=== PATIENT | male | born 1975 | race Caucasian/White ===

== ENCOUNTER 2017-07-10 04:45 | Emergency (ER) | payer MEDICAID, SELFPAY ==
[2017-07-10 04:46] VITALS: BP 147/85; PULSE 101; RESP 19; TEMP 36.8; O2SAT 95; BMI 67.8
[2017-07-10] MEDS: 0.9% Normal Saline 1,000 ML 125 ML IV (05:03)
[2017-07-10 05:06] LABS: Bedside Glucose 253 mg/dL (70-110)
[2017-07-10] MEDS: Morphine 4 MG/ML Syringe IV (05:06)
[2017-07-10 05:09] LABS: Absolute Lymphocyte Count 0.65 X10^3/ul (0.83-4.51); Absolute Neutrophil Count 4.4 X10^3/uL (2.0-7.7); Eosinophil# 0.11 X10^3/uL; Hematocrit 38.1 % (40-54); Hemoglobin 13.8 g/dl (13.0-16.5); Lymphocyte # 0.65 X10^3/ul (4.0); Lymphocyte % 12.1 % (19-41); Mean Corp Hgb Conc 36.2 g/gl (32-36); Mean Corpuscular Hgb 33.3 pg (27.0-32.0); Mean Platelet Vol. 9.1 fl (6.2-12.0); Monocyte# 0.26 X10^3/uL; Monocyte% 4.8 % (0-10); Neutrophil # 4.36 X10^3/uL (2.7-7.7); Neutrophil % 80.9 % (47-70); Platelet Count 104 K/mm3 (150-450); RBC Distribution Width CV 15.9 % (11.6-14.6); RBC Distribution Width SD 53.1 fl (35.1-43.9); Red Blood Count 4.14 M/mm3 (4.6-6.2); White Blood Count 5.4 K/mm3 (4.4-11.0)
[2017-07-10 05:12] LABS: International Normalized Ratio 1.1; Prothrombin Time (Protime)PT. 13.8 SECONDS (11.7-14.9)
[2017-07-10 05:14] LABS: POSITIVE COUNT NO; POSITIVE DIFFERENTIAL NO; POSITIVE MORPHOLOGY NO
[2017-07-10 05:31] LABS: AST(SGOT) 189 U/L (15-37); Alanine Aminotransfer ALT/SGPT 202 U/L (16-61); Albumin, Serum 3.5 g/dL (3.2-5.0); Alkaline Phosphatase 313 U/L (45-117); Anion Gap 11 (5-15); BUN 19 mg/dL (7-18); BUN/Creat Ratio 13.9 RATIO (10-20); Chloride 96 mmol/L (98-107); Creatinine, Serum 1.37 mg/dL (0.70-1.30); EST Glomerular Filtration Rate 60 mL/min (>60); Est Glom Filt Rate - Afr Amer 73 mL/min (>60); Estimated Creatinine Clearance 71.79 ml/min; Globulin 4.6 g/dL (2.2-4.2); Glucose 226 mg/dL (74-106); Lipase 5488 U/L (73-393); Potassium 3.9 mmol/L (3.5-5.1); Protein, Total 8.1 g/dL (6.4-8.2); Sodium Level 128 mmol/L (136-145)
--- NOTE | 2017-07-10 05:59 | ED.VISSUMM ---
- ER Visit Summary Date of Service: 07/10/17 Chief Complaint: Abdominal pain and jaundice History of Present Illness: The patient is a 42 M who goes to the [facility]. He reports that he has upper abdominal pain that began 2 days ago. He states it is that a dull constant pain that is sharp with any movement. Is 10 out of 10 at worst and 6 out of 10 currently. Is worsened by movement, food, or breathing. She relieved by remaining still. Reports she has been nauseated and had the dry heaves. His last bowel movement was yesterday. It was maria t/yellow colored. He reports he has had dark urine. No dysuria or frequency. Patient has a known history of gallstones and biliary sludge. Physical Examination: Vitals: Stable. Afebrile. General: Well-nourished and well-developed. Head: Normocephalic atraumatic. Neck: Supple, no lymphadenopathy. No JVD. Nontender. Cardiovascular: Regular rate and rhythm. No murmurs. Respiratory: No respiratory distress. Clear to auscultation bilaterally. Abdominal: Soft, moderate epigastric and right upper quadrant tenderness to palpation, nondistended, normal bowel sounds. No guarding, rebound, or peritoneal signs. Back: Nontender. Extremities: Nontender, no edema. Skin: Jaundice and scleral icterus. Neurologic: Alert and oriented ?3. Cranial nerves II through XII are intact. Normal strength and sensation. Psych: Normal affect. Test Results: CBC is remarkable platelets of 104. Chem-7 is marked for sodium 128, chloride of 96, glucose of 226, BUN of 19, and creatinine 1.37. LFTs marked for total bili of 10.10 and direct bili of 7.4. Alk phos is 313. ALT is 202. AST is 189. Lipase is 5488. INR is 1.1. Emergency Department Course and Treatment: Patient was given morphine IV and is resting comfortably. Treatment Plan: The patient was discussed with Dr. Swartz who asked that he be transferred to a tertiary care center. The patient asked for [facility] and I am waiting a call back from them. Disposition: Transferred in serious condition. Impression: 1. Gallstone pancreatitis. 2. Jaundice. 3. Thrombocytopenia. This note was generated with [employer] software. It may contain incorrect words, spelling, and punctuation that were not noted in review of the chart prior to signing ED Disposition - Plan for ED Patient: Chief Complaint: Abd Pain Referrals: Alberto Riley,Linnette Pierre [Primary Care Provider] -
[2017-07-10 06:51] VITALS: BP 135/78; PULSE 91; RESP 16; TEMP 36.8; O2SAT 95
[2017-07-10 06:52] VITALS: BP 135/78; PULSE 91; RESP 16; O2SAT 95
[2017-07-10 07:12] VITALS: BP 134/81; PULSE 99; RESP 15; O2SAT 95
== END 2017-07-10 07:45 | disposition short-term general hospital (02) ==
LOC: ED 05:14
PROVIDERS: Emergency Provider Emergency Medicine
DX: K85.10 Biliary acute pancreatitis without necrosis or infection (principal); R17 Unspecified jaundice; D69.6 Thrombocytopenia, unspecified; R21 Rash and other nonspecific skin eruption; E11.9 Type 2 diabetes mellitus without complications; E78.00 Pure hypercholesterolemia, unspecified; E03.9 Hypothyroidism, unspecified
CPT/HCPCS: 80048; 80076; 82962; 83690; 85025; 85610; 96361; 96374; 96376; 99284; J7030

== ENCOUNTER → 2017-10-30 20:04 | Outpatient (CLI) | payer MEDICAID, SELFPAY | DX: G47.10 Hypersomnia, unspecified (principal); Z72.821 Inadequate sleep hygiene | CPT/HCPCS: 95810 ==

== ENCOUNTER → 2017-11-24 08:35 | Outpatient (CLI) | payer MEDICAID, SELFPAY ==
--- NOTE | 2017-11-24 08:40 | US_ITS ---
STUDY: THYROID ULTRASOUND REASON FOR EXAM: Male, 42 years old. Echo thyroid is a TECHNIQUE: Ultrasound evaluation of the thyroid was performed with real-time and static howard-scale imaging. COMPARISON: None. FINDINGS: RIGHT LOBE: The right lobe of the thyroid gland measures 5.4 x 2.6 x 1.6 cm. There is a homogeneous echotexture. There are no demonstrated solid, cystic or complex lesions. LEFT LOBE: The left lobe of the thyroid gland measures 4.9 x 2.1 x 1.9 cm. There is a homogeneous echotexture. There are no demonstrated solid, cystic or complex lesions. ISTHMUS: The isthmus measures 1.0 cm . In the periphery of the left isthmus there is a very vague 5 x 3 mm hypoechoic nodule. The regional lymph nodes are normal. US/Thyroid IMPRESSION: Thyromegaly. Nonspecific well-circumscribed hypoechoic nodule versus artifact measuring 5 x 4 x 3 mm. Recommend follow-up in 6 months and correlation with laboratory values. Electronically Signed: Mariela Montoya MD at 19:35 EDT Tel , Service support ,
== END ==
PROVIDERS: Visit Provider Nurse Practitioner Family
DX: E03.9 Hypothyroidism, unspecified (principal)
CPT/HCPCS: 76536

== ENCOUNTER 2018-01-06 08:44 | Emergency (ER) | payer MEDICAID, SELFPAY ==
[2018-01-06 08:45] VITALS: BP 167/101; PULSE 103; RESP 18; TEMP 36.6; O2SAT 99; BMI 64.0
[2018-01-06] MEDS: 0.9% Normal Saline 1,000 ML 125 ML IV (09:03)
--- NOTE | 2018-01-06 09:03 | ED.DCSUM_ITS ---
- ER Visit Summary Date of Service: 01/06/18 Chief Complaint: Abdominal pain History of Present Illness: The patient is a 42 M who presents with an epigastric left upper quadrant pain. He states that it sometimes will radiate into his back. He states that it began severe last evening around bedtime. He has had some nausea and vomiting. Over the preceding 3 days he has had a progressive worsening of the pain last night is when it became severe. He notes that last week he had maria t colored stools but now his stools have returned to normal. At that time he did not have any abdominal pain. In June 2017 he was diagnosed with gallstone pancreatitis. He states that he was transferred to outside facility. He did not have ERCP or cholecystectomy. From online resources it appears the patient had a MRCP which showed some peripancreatic stranding but patent bile ducts. It was felt he most likely had a passed stone. He states that he was treated conservatively and improved. He has followed up with gastroenterology at [facility]. Since that time he has not had any difficulties with food. He has been eating healthier though. He has lost over 20 pounds since October. He has a history of thrombocytopenia and has been evaluated by hematology. Physical Examination: Afebrile vital signs are stable Gen: Well-nourished well-developed obese Head: Normocephalic atraumatic Eyes: Perrl EOMI no scleral icterus ENT: TMs clear no rhinorrhea moist mucous membranes Neck: Supple no lymphadenopathy no JVD nontender CVS: Regular rate rhythm no murmurs normal S1-S2 Respiratory: No distress clear to auscultation bilaterally chest nontender Abdomen: Soft tender to palpation in the epigastrium nondistended normal bowel sounds no masses Back: Nontender Extremity: Nontender no edema Skin: Normal color no rash no jaundice Neuro: alert orientated ?3 CN II-XII intact normal strength sensation reflexes gait cerebellar Psych: Normal affect normal mood Test Results: White count is 4. Platelets of 114. Creatinine 1.71 glucose 193. Total bilirubin 1.6 direct bilirubin 0.35. Alk phos 151. Lipase 94. CT abdomen pelvis demonstrates cholelithiasis but no biliary duct distention. No evidence of pancreatitis. Emergency Department Course and Treatment: This could be biliary colic versus the passage of a ductal stone. Patient will be discharged home. He states that at the current time the doctors he was seen have no plan for surgical evaluation of his gallbladder. Patient will be referred to on-call surgery. Patient will have Zofran and a few [place] for pain. Return instructions understood. Impression: 1. Acute abdominal pain 2. Cholelithiasis 3. Vomiting 4. Biliary colic 5. Chronic thrombocytopenia This note was generated with [employer] dictation software. It may contain incorrect words, spelling, and punctuation that were not noted in review of the chart prior to signing ED Disposition - Plan for ED Patient: Disposition: Home or Assisted Living Chief Complaint: Abd Pain Instructions: What are Gallstones? Prescriptions: Hydrocodone Bitart/Apap 5-325 [[place] 5MG-325MG] 1 tab PO Q6H PRN PRN 3 Days #10 tab PRN Reason: Pain Ondansetron [Zofran Odt] 4 mg PO Q8H PRN PRN #10 tab PRN Reason: Nausea Referrals: [facility] Osvaldo,Linnette Pierre [Primary Care Provider] - Dennis Molina MD [STAFF PHYSICIAN] - (call on monday for surgical evaluation )
[2018-01-06 09:09] LABS: Absolute Lymphocyte Count 0.95 X10^3/ul (0.83-4.51); Absolute Neutrophil Count 2.4 X10^3/uL (2.0-7.7); Basophil# 0.01 X10^3/uL; Basophil% 0.3 % (0-1); Eosinophil# 0.15 X10^3/uL; Eosinophils% 3.8 % (0-5); Hematocrit 37.6 % (40-54); Hemoglobin 13.4 g/dl (13.0-16.5); Lymphocyte # 0.95 X10^3/ul (4.0); Lymphocyte % 23.8 % (19-41); Mean Corp Hgb Conc 35.6 g/gl (32-36); Mean Corpuscular Hgb 33.4 pg (27.0-32.0); Mean Corpuscular Volume 93.8 fL (80-94); Mean Platelet Vol. 9.2 fl (6.2-12.0); Monocyte# 0.49 X10^3/uL; Monocyte% 12.3 % (0-10); Neutrophil # 2.37 X10^3/uL (2.7-7.7); Neutrophil % 59.3 % (47-70); Platelet Count 114 K/mm3 (150-450); RBC Distribution Width SD 54.6 fl (35.1-43.9); Red Blood Count 4.01 M/mm3 (4.6-6.2)
[2018-01-06 09:12] LABS: POSITIVE COUNT NO; POSITIVE DIFFERENTIAL NO; POSITIVE MORPHOLOGY NO
[2018-01-06 09:22] LABS: AST(SGOT) 57 U/L (15-37); Alanine Aminotransfer ALT/SGPT 43 U/L (16-61); Albumin, Serum 3.8 g/dL (3.2-5.0); Alkaline Phosphatase 151 U/L (45-117); Anion Gap 9 (5-15); BUN 21 mg/dL (7-18); BUN/Creat Ratio 12.3 RATIO (10-20); Bilirubin, Direct 0.35 mg/dL (0.00-0.30); Calcium,Total 10.3 mg/dL (8.5-10.1); Chloride 99 mmol/L (98-107); Creatinine, Serum 1.71 mg/dL (0.70-1.30); EST Glomerular Filtration Rate 47 mL/min (>60); Est Glom Filt Rate - Afr Amer 56 mL/min (>60); Estimated Creatinine Clearance 57.51 ml/min; Globulin 4.7 g/dL (2.2-4.2); Glucose 193 mg/dL (74-106); Lipase 94 U/L (73-393); Protein, Total 8.5 g/dL (6.4-8.2); Sodium Level 133 mmol/L (136-145)
--- NOTE | 2018-01-06 09:38 | CT_ITS ---
STUDY: CT ABDOMEN AND PELVIS WITHOUT CONTRAST REASON FOR EXAM: Male, 42 years old. Abdominal pain. RADIATION DOSAGE (If Supplied By Facility): CTDIvol = ( 34.45 ) mGy, DLP = ( 1979.87 ) mGycm TECHNIQUE: Transaxial images were obtained from the dome of the diaphragm to the symphysis pubis without oral contrast, and without intravenous contrast. Sagittal and coronal images were reconstructed. Individualized dose optimization techniques were used for this CT. COMPARISON: None. FINDINGS: The visualized lung bases are unremarkable. The visualized portions of the heart are within normal limits. There is hepatomegaly with diffuse hepatic enlargement. There are multiple gallstones. There is moderate splenomegaly. Normal pancreas. Normal bilateral adrenal glands. There is 1 right and 4 left renal stones measuring 0.1 to 0.2 cm. There is no hydronephrosis. Normal visualized stomach. Normal small intestine. Normal colon. The appendix is visualized and appears normal. Normal abdominal aorta. Normal inferior vena cava. Normal retroperitoneum. Normal urinary bladder. There is no free fluid in the abdomen or pelvis. Normal abdominal wall. Normal osseous structures. CT/Abdomen/Pelvis without Cont IMPRESSION: Multiple gallstones. No biliary dilatation. Hepatosplenomegaly. Bilateral renal stones. No hydronephrosis. Electronically Signed: Jax Singh MD at 10:41 EDT , Service support ,
[2018-01-06 12:33] VITALS: PULSE 78; RESP 14; O2SAT 98
== END 2018-01-06 12:35 | disposition home or self-care (01) ==
PROVIDERS: Emergency Provider Emergency Medicine
DX: R10.12 Left upper quadrant pain (principal); K80.20 Calculus of gallbladder without cholecystitis without obstruction; R11.2 Nausea with vomiting, unspecified; K80.50 Calculus of bile duct without cholangitis or cholecystitis without obstruction; D69.6 Thrombocytopenia, unspecified; E11.9 Type 2 diabetes mellitus without complications; I10 Essential (primary) hypertension; E78.00 Pure hypercholesterolemia, unspecified
CPT/HCPCS: 74176; 80048; 80076; 83690; 85025; 99283; J7030; A4216

== ENCOUNTER 2018-01-06 22:12 | Inpatient (IN) | payer MEDICAID, SELFPAY ==
[2018-01-06 22:12] VITALS: BP 164/104; PULSE 96; RESP 20; TEMP 36.2; O2SAT 97; BMI 64.0
--- NOTE | 2018-01-06 22:33 | EKG12_ITS ---
Test Reason : ABD PAIN Blood Pressure : / mmHG Vent. Rate : 089 BPM Atrial Rate : 089 BPM P-R Int : 194 ms QRS Dur : 090 ms QT Int : 360 ms P-R-T Axes : 034 -08 000 degrees QTc Int : 438 ms Normal sinus rhythm Moderate voltage criteria for LVH, may be normal variant Borderline ECG Confirmed by MANAN BLANKENSHIP, SUKHDEEP ([id number]), material expeditor SAURABH KHANNA ([id number]) on 01/09/2018 10:10:18 AM Referred By: KELLI Confirmed By:SUKHDEEP HINKLE MD
--- NOTE | 2018-01-06 22:36 | ED.RN ---
NO OLD EKGS IN MUSE.
--- NOTE | 2018-01-06 22:50 | ED.DCSUM_ITS ---
- ER Visit Summary Date of Service: 01/06/18 Chief Complaint: Abdominal pain History of Present Illness: The patient is a 42 M who presents with abdominal pain. He was seen here earlier today and had gallstones on CAT scan. His bilirubin was slightly elevated but his pain is mostly epigastric and left upper quadrant. He was discharged home to follow-up with surgery. He was given [place]. The [place] has not been helping his pain. He denies fevers. No history of abdominal surgeries in the past. He has had nausea without vomiting. No diarrhea or constipation. Physical Examination: Vital signs reviewed. BMI 64. HEENT exam unremarkable. Heart is regular rate and rhythm. Lungs are clear to auscultation bilaterally. His chest is tender in the left lower area. Abdomen is soft with epigastric and left upper quadrant tenderness to palpation. There is no guarding or rebound tenderness. Extremities reveal no edema. Skin exam reveals no rashes. Neurologic exam normal. Test Results: EKG normal sinus rhythm with rate of 89. No ST changes. White blood cell count 5.5, platelet count 140. Sodium 132, creatinine 1.57. Total bilirubin is 2.1, direct bilirubin 0.32. Alkaline phosphatase 144. AST 63. Troponin normal Emergency Department Course and Treatment: Patient was given morphine and Zofran. His intra-abdominal laboratory studies have worsened slightly. His creatinine is slightly improved. I discussed this with Dr. Molina with surgery. He would like the hospitalist to admit for an MRCP tomorrow. I discussed with hospitalist and she will discussed with surgery who will be the primary admitting provider. Treatment Plan: [] Disposition: Admit Impression: Biliary colic, thrombocytopenia, chronic kidney disease This note was generated with [employer] dictation software. It may contain incorrect words, spelling, and punctuation that were not noted in review of the chart prior to signing ED Disposition - Plan for ED Patient: Chief Complaint: Abd Pain Referrals: Alberto Riley,Linnette Pierre [Primary Care Provider] -
[2018-01-06] MEDS: Ondansetron 4 MG/2 ML Vial IV (23:34)
[2018-01-06] MEDS: Morphine 4 MG/ML Syringe IV (23:34)
[2018-01-06 23:45] LABS: Absolute Lymphocyte Count 0.84 X10^3/ul (0.83-4.51); Absolute Neutrophil Count 3.9 X10^3/uL (2.0-7.7); Basophil# 0.02 X10^3/uL; Basophil% 0.4 % (0-1); Eosinophil# 0.16 X10^3/uL; Eosinophils% 2.9 % (0-5); Hematocrit 36.7 % (40-54); Hemoglobin 13.4 g/dl (13.0-16.5); Lymphocyte # 0.84 X10^3/ul (4.0); Lymphocyte % 15.3 % (19-41); Mean Corp Hgb Conc 36.5 g/gl (32-36); Mean Corpuscular Hgb 33.7 pg (27.0-32.0); Mean Corpuscular Volume 92.2 fL (80-94); Mean Platelet Vol. 8.7 fl (6.2-12.0); Monocyte# 0.52 X10^3/uL; Monocyte% 9.5 % (0-10); Neutrophil # 3.94 X10^3/uL (2.7-7.7); Neutrophil % 71.5 % (47-70); Platelet Count 140 K/mm3 (150-450); RBC Distribution Width CV 15.5 % (11.6-14.6); RBC Distribution Width SD 50.3 fl (35.1-43.9); Red Blood Count 3.98 M/mm3 (4.6-6.2); White Blood Count 5.5 K/mm3 (4.4-11.0)
[2018-01-06 23:47] LABS: AST(SGOT) 63 U/L (15-37); Alanine Aminotransfer ALT/SGPT 41 U/L (16-61); Albumin, Serum 3.7 g/dL (3.2-5.0); Alkaline Phosphatase 144 U/L (45-117); Anion Gap 8 (5-15); BUN 19 mg/dL (7-18); BUN/Creat Ratio 12.1 RATIO (10-20); Bilirubin, Direct 0.32 mg/dL (0.00-0.30); Calcium,Total 10.2 mg/dL (8.5-10.1); Chloride 99 mmol/L (98-107); Creatinine, Serum 1.57 mg/dL (0.70-1.30); EST Glomerular Filtration Rate 51 mL/min (>60); Est Glom Filt Rate - Afr Amer 62 mL/min (>60); Estimated Creatinine Clearance 62.64 ml/min; Globulin 4.6 g/dL (2.2-4.2); Glucose 202 mg/dL (74-106); Lipase 94 U/L (73-393); Potassium 4.3 mmol/L (3.5-5.1); Protein, Total 8.3 g/dL (6.4-8.2); Sodium Level 132 mmol/L (136-145)
[2018-01-06 23:48] LABS: POSITIVE COUNT NO; POSITIVE DIFFERENTIAL NO; POSITIVE MORPHOLOGY NO
[2018-01-07] VITALS (9 sets, daily range): BP systolic 105–148; BP diastolic 57–95; PULSE 75–119; RESP 18; TEMP 36.5–37.3; O2SAT 92–97; BMI 63.5; BMI 63.6
--- NOTE | 2018-01-07 01:21 | CON.PCM_ITS ---
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 (6) Morbid obesity Status: Chronic (7) Thrombocytopenia Status: Chronic (8) Leukopenia Status: Chronic Qualifiers: Neutropenia type: due to infection Reason for Consult Date of Consultation: 01/07/18 Reason for Consultation: Medical management History of Present Illness: The patient is a 42 y/o M w/ PMHx: Morbid Obesity, HTN, HLD, SONIA currently being assessed for CPAP settings, Diabetes mellitus type II, Recent leukopenia and thrombocytopenia following viral illness evaluated per Oncology and felt to be improving and likely secondary to suppression secondary to infection, Hypothyroidism who presented to the [facility] ED initially earlier in the day on 01/06/18 with history of upper abdominal pain, ongoing, over the last 1-2 years however worsened over the last 3 days with ongoing epigastric and right upper quadrant discomfort with associated nausea, emesis, poor food tolerance, recently altered bowel movements noted to be maria t colored discharged from the ED following workup with plan follow-up with general surgery for cholelithiasis with biliary colic; however he now represents to the [facility] ED on 01/07/18 for ongoing severe pain, not improving w/ recent discharge oral pain regimen. He had initially upon presentation noted also LUQ pain; however, upon examination and discussion upon current evaluation had RUQ and epigastric pain. He had been evaluated prior at OSH and was treated for gallstone pancreatitis at that time with possible cholecystectomy; however, following an MRCP they decided to defer the surgery for unclear reasons. Work-up in the ED included T 97.2, heart rate 96, BP 164/104, respiratory rate 18, 97% on room air, CBC with W BC 5.5, heme globin 13.4, platelet 140 with mild left shift, CMP with sodium 132, BUN/creatinine 19/1.57, glucose 202, calcium 10.2, total bilirubin 2.1, direct bilirubin 0.32, AST/ALT 63/41, alk phos 144, troponin < 0.015, lipase 94, recent CT abdomen and pelvis with multiple gallstones with no obvious biliary dilatation, hepatosplenomegaly, bilateral renal stones with no hydronephrosis. Past Medical History Past Medical History (Chronic Problems): Chronic Problems (Last Reviewed 11/06/17 @ 09:37 by Ramandeep Rodgers) Essential (primary) hypertension (Chronic) Steatohepatitis (Chronic) Hypothyroidism (Chronic) Type 2 diabetes mellitus without complications (Chronic) Morbid obesity (Chronic) Thrombocytopenia (Chronic) Leukopenia (Chronic) Bilateral lower extremity edema (Chronic) Medical History: Medical History (Last Reviewed 11/06/17 @ 09:37 by Ramandeep Rodgers) Diabetes E11.9 Hyperlipidemia E78.5 Thyroid disease E07.9 Vitamin D deficiency E55.9 Hypertension I10 Allergies wool Adverse Reaction (Severe, Verified 01/06/18 22:13) Hives Home Medications: Ambulatory Orders Medication Instructions Recorded Lisinopril [Zestril] 20 mg PO DAILY 03/30/15 Lovastatin [Mevacor] 20 mg PO DAILY 03/30/15 Aspirin [Aspirin, Baby] 81 mg PO DAILY@0800 08/11/16 Metformin HCl 1,000 mg PO BID 08/11/16 Bennet-3/Dha/Epa/Fish Oil [Fish Oil 1,200 mg PO BID 08/11/16 1,000 mg Softgel] Ergocalciferol [Vitamin D] 50,000 unit PO Q7D 04/05/17 Insulin NPH Human Isophane 35 unit SQ BID 04/05/17 [Novolin N] Levothyroxine [Synthroid] 100 mcg PO DAILY 04/05/17 Metoprolol Tartrate [Lopressor 50 mg PO BID 04/05/17 (Beta Helen)] Hydrocodone Bitart/Apap 5-325 1 tab PO Q6H PRN PRN 3 Days #10 tab 01/06/18 [[place] 5MG-325MG] Magnesium 250 mg PO TID 01/06/18 Ondansetron [Zofran Odt] 4 mg PO Q8H PRN PRN #10 tab 01/06/18 Surgical History: Surgical History (Last Reviewed 11/06/17 @ 09:38 by Ramandeep Rodgers) History of tonsillectomy and adenoidectomy Z98.890 Surgical History: tonsillectomy Psychiatric History: No pertinent psych hx Lives: With Family - Patient lives with his mother. Smoking Status: Never smoker Tobacco Use: Non-smoker Alcohol: None Drugs: None - *Family History Maternal Family History: Family History (Last Reviewed 11/06/17 @ 09:38 by Ramandeep Rodgers) Grandfather Family history of heart disease Family history of hypertension Mother Family history of high cholesterol Grandfather Family history of high cholesterol Aunt Family history of hypertension Other Family history of hypertension in mother History Items: - - Patient notes a maternal family history of hypertension and hyperlipidemia. Paternal Family History: Family History (Last Reviewed 11/06/17 @ 09:38 by Ramandeep Rodgers) Grandfather Family history of heart disease Family history of hypertension Mother Family history of high cholesterol Grandfather Family history of high cholesterol Aunt Family history of hypertension Other Family history of hypertension in mother History Items: - - Patient notes a paternal family history of heart disease, hypertension, hyperlipidemia and diabetes. Review of Systems Constitutional: Reports: Anorexia, Malaise, Weakness, Fatigue. Denies: Chills, Fever, Weight Change HEENT: Denies: Head Aches, Sinus Congestion, Sinus Drainage Cardiovascular: Denies: Chest Pain, Palpitations Respiratory: Denies: Cough, Shortness of breath at rest, Sputum production Gastrointestinal: Reports: Abdominal Pain, Nausea, Vomiting, - - Change in stool color. Genitourinary: Denies: Dysuria Musculoskeletal: Reports: Back Pain. Denies: Joint Pain, Joint Tenderness Skin: Denies: Rash, Wounds Neurological: Denies: Numbness, Tingling, Focal weakness Psychiatric: Denies: Anxiety, Depression, Homicidal Ideations, Suicidal Ideat ions Hematologic/ Lymphatic: Reports: Easy Bruising, Easy Bleeding Patient Problems: Active and Suspected Problems (Last Reviewed 11/06/17 @ 09:37 by Ramandeep Rodgers) Cholelithiasis (Acute) Subjective: Laying in the ED bed, uncomfortable appearing. Objective: Physical Examination: General: awake, alert, oriented x 3 and cooperative, laying in the ED bed, uncomfortable appearing. Skin: normal color, turgor, no icterus, cyanosis. HEENT: AT/NC, EOMI, PERRLA, dry MM, no carotid bruits or JVD noted; however, thickened neck makes examination difficult. Lungs: Diminished BS BL, > bases, distant BS secondary to habitus, moderate effort, no rales, ronchi or wheezing. Heart: Regular rate and rhythm; no gallop, rub audible. Abdomen: soft, morbidly obese, epigastric and RUQ TTP, + rebound RUQ, ND but difficult assessment given habitus, unable to discern HSM secondary to habitus and pain w/ examination. Extremities: no cyanosis, clubbing, or edema. Neurological: patient awake, alert, oriented x 3; cognitive function intact; pupils equally reactive to light and accomodation; cranial nerves II-XII grossly normal, moving all 4 extremities, no focal deficits, strength moderately to severely globally decreased secondary to acute presentation. Psychiatric: affect appears normal, no acute evidence of depressive or anxiety feelings. - Physical Exam Vital Signs Temp Pulse Resp BP Pulse Ox 97.2 F L 96 20 H 164/104 H 97 01/06/18 22:12 01/06/18 22:12 01/06/18 22:12 01/06/18 22:12 01/06/18 22:12 Oxygen Delivery Method Room Air Weight: 446 lb Body Mass Index (BMI) 64.0 Laboratory Tests Past 24 Hrs 01/06/18 01/06/18 01/06/18 23:00 23:00 23:30 WBC Cancelled 5.5 Corrected WBC Cancelled RBC Cancelled 3.98 L Hgb Cancelled 13.4 Hct Cancelled 36.7 L MCV Cancelled 92.2 MCH Cancelled 33.7 H MCHC Cancelled 36.5 H RDW Cancelled 15.5 H RDW Differential Cancelled 50.3 H Plt Count Cancelled 140 L MPV Cancelled 8.7 Immature Gran % (Auto) Cancelled 0.400 Neut % (Auto) Cancelled 71.5 H Lymph % (Auto) Cancelled 15.3 L [place] % (Auto) Cancelled 9.5 Eos % (Auto) Cancelled 2.9 Baso % (Auto) Cancelled 0.4 Absolute Neuts (auto) Cancelled 3.9 Absolute Lymphs (auto) Cancelled 0.84 Total Counted Cancelled Not Reportable Neutrophils % (Manual) Cancelled Band Neutrophils % Cancelled Lymphocytes % (Manual) Cancelled Monocytes % (Manual) Cancelled Eosinophils % (Manual) Cancelled Basophils % (Manual) Cancelled Metamyelocytes % Cancelled Myelocytes % Cancelled Promyelocytes % Cancelled Blast Cells % Cancelled Plasma Cell % (Manual) Cancelled Other Cells % Cancelled Nucleated RBCs/100 WBC Cancelled Differential Comment Cancelled Diff Path Review Cancelled Hypersegmented Neuts Cancelled Atypical Lymphocytes Cancelled Reactive Lymphocytes Cancelled Smudge Cells Cancelled Toxic Granulation Cancelled Dohle Bodies Cancelled Jj Rods Cancelled Platelet Estimate Cancelled Plt Morphology Comment Cancelled RBC Morphology Cancelled Polychromasia Cancelled Hypochromasia Cancelled Poikilocytosis Cancelled Basophilic Stippling Cancelled Anisocytosis Cancelled Microcytosis Cancelled Macrocytosis Cancelled Spherocytes Cancelled Sickle Cells Cancelled Target Cells Cancelled Tear Drop Cells Cancelled Ovalocytes Cancelled Stomatocytes Cancelled Gomez-Coates Bodies Cancelled Loretta Cells Cancelled Bite Cells Cancelled Acanthocytes (Spur) Cancelled Rouleaux Cancelled Schistocytes Cancelled Sodium 132 L Potassium 4.3 Chloride 99 Carbon Dioxide 25.0 Anion Gap 8 BUN 19 H Creatinine 1.57 H Estim Creat Clear Calc 62.64 Est GFR (MDRD) Af Amer 62 Est GFR (MDRD) Non-Af 51 L BUN/Creatinine Ratio 12.1 Glucose 202 H Calcium 10.2 H Total Bilirubin 2.10 H Direct Bilirubin 0.32 H AST 63 H ALT 41 Alkaline Phosphatase 144 H Troponin I < 0.015 Total Protein 8.3 H Albumin 3.7 Globulin 4.6 H Lipase 94 Assessment/Plan All Active Problems (Last Reviewed 11/06/17 @ 09:37 by Ramandeep Rodgers) Cholelithiasis (Acute) Peripheral arterial disease (Acute) The patient is a 42 y/o M w/ PMHx: Morbid Obesity, HTN, HLD, SONIA currently being assessed for CPAP settings, Diabetes mellitus type II, Recent leukopenia and thrombocytopenia following viral illness evaluated per Oncology and felt to be improving and likely secondary to suppression secondary to infection, Hypothyroidism who presented to the [facility] ED initially earlier in the day on 01/06/18 with history of upper abdominal pain, ongoing, over the last 1-2 years however worsened over the last 3 days with ongoing epigastric and right upper quadrant discomfort with associated nausea, emesis, poor food tolerance, recently altered bowel movements noted to be maria t colored discharged. (1) RUQ Abdominal Pain, Rebound w/ Cholelithiasis, N/V concerning for Cholecystitis: CBC with W BC 5.5, heme globin 13.4, platelet 140 with mild left shift, CMP with sodium 132, BUN/creatinine 19/1.57, glucose 202, calcium 10.2, total bilirubin 2.1, direct bilirubin 0.32, AST/ALT 63/41, alk phos 144, troponin < 0.015, lipase 94, recent CT abdomen and pelvis with multiple gallstones with no obvious biliary dilatation, hepatosplenomegaly, bilateral renal stones with no hydronephrosis. Admitted to [facility] per Primary Service Surgery, maintain on IVFs, NPO status, IV PPI, IV/po pain control, lab trending, given RUQ pain, rebound will initiate zosyn therapy but leave this also to surgery discretion to discontinue, planned AM MRCP. (2) Leukopenia, thrombocytopenia: Admission CBC with W BC 5.5, heme globin 13.4, platelet 140 with mild left shift, been improving, following with oncology and felt secondary to bone marrow suppression following viral infection. (3) Diabetes mellitus type II: Hold oral home regimen, continue home insulin regimen, NPO status, accu checks q 6 hours while NPO status w/ ISS, HgbA1c pending. (4) Morbid Obesity: Weight loss and lifestyle changes encouraged, nutrition consulted. (5) Hypertension: Continue home regimen including lisinopril, metoprolol, PRN hydralazine. (6) Hyperlipidemia: Continue home statin regimen. (7) Hypothyroidism: Continue home synthroid regimen. (8) SONIA: CPAP q HS. (9) GERD: PPI. (10) DVT Prophylaxis: SCDs, chemoprophylaxis held for possible OR. Code Visit Office Visits / Consults: [id number] IP Consult L5
[2018-01-07] MEDS: Morphine 4 MG/ML Syringe IV (01:39)
[2018-01-07 01:53] LABS: Magnesium 1.1 mg/dL (1.6-2.6)
[2018-01-07 02:37] LABS: Hemoglobin A1c 6.9 % (4.2-6.3)
[2018-01-07] MEDS: HYDROmorphone 1 MG/ML Syringe IV ×4 (02:40→16:13)
[2018-01-07] MEDS: 0.9% Normal Saline 1,000 ML 125 ML IV ×2 (03:24→16:09)
[2018-01-07] MEDS: Piperacil/Tazobactam 3.375 GM/50 ML ML IV ×3 (04:44→21:32)
[2018-01-07] MEDS: 0.9% NaCl Peripheral Flush Adult/Peds IV ×3 (05:56→16:13)
[2018-01-07] MEDS: Levothyroxine 100 MCG Tablet PO (06:28)
[2018-01-07] MEDS: Insulin Lispro 100 UNIT/ML INSULN.PEN SC ×3 (06:28→16:14)
[2018-01-07 07:41] LABS: Bedside Glucose 232 mg/dL (70-110)
[2018-01-07 08:11] LABS: Absolute Lymphocyte Count 0.55 X10^3/ul (0.83-4.51); Absolute Neutrophil Count 4.4 X10^3/uL (2.0-7.7); Basophil# 0.01 X10^3/uL; Basophil% 0.2 % (0-1); Eosinophil# 0.06 X10^3/uL; Eosinophils% 1.1 % (0-5); Hematocrit 36.5 % (40-54); Hemoglobin 13.3 g/dl (13.0-16.5); Lymphocyte # 0.55 X10^3/ul (4.0); Mean Corp Hgb Conc 36.4 g/gl (32-36); Mean Corpuscular Volume 93.4 fL (80-94); Mean Platelet Vol. 8.8 fl (6.2-12.0); Monocyte# 0.47 X10^3/uL; Monocyte% 8.5 % (0-10); Neutrophil % 79.7 % (47-70); Platelet Count 134 K/mm3 (150-450); RBC Distribution Width CV 15.7 % (11.6-14.6); RBC Distribution Width SD 51.9 fl (35.1-43.9); Red Blood Count 3.91 M/mm3 (4.6-6.2); White Blood Count 5.5 K/mm3 (4.4-11.0)
[2018-01-07 08:12] LABS: Differential Indicated SCAN CRITERIA MET; POSITIVE COUNT NO; POSITIVE DIFFERENTIAL YES; POSITIVE MORPHOLOGY NO
[2018-01-07 08:25] LABS: AST(SGOT) 51 U/L (15-37); Alanine Aminotransfer ALT/SGPT 41 U/L (16-61); Albumin, Serum 3.8 g/dL (3.2-5.0); Alkaline Phosphatase 146 U/L (45-117); Anion Gap 9 (5-15); BUN 17 mg/dL (7-18); BUN/Creat Ratio 10.7 RATIO (10-20); Bilirubin, Direct 0.77 mg/dL (0.00-0.30); Calcium,Total 9.8 mg/dL (8.5-10.1); Chloride 98 mmol/L (98-107); Creatinine, Serum 1.59 mg/dL (0.70-1.30); EST Glomerular Filtration Rate 51 mL/min (>60); Est Glom Filt Rate - Afr Amer 61 mL/min (>60); Estimated Creatinine Clearance 61.85 ml/min; Globulin 4.4 g/dL (2.2-4.2); Glucose 236 mg/dL (74-106); Magnesium 2.2 mg/dL (1.6-2.6); Potassium 4.1 mmol/L (3.5-5.1); Protein, Total 8.2 g/dL (6.4-8.2); Sodium Level 131 mmol/L (136-145)
[2018-01-07 08:45] LABS: Differential Comment SCANNED
--- NOTE | 2018-01-07 08:49 | HP.PCM_ITS ---
Problem List (1) Cholelithiasis Status: Acute Qualifiers: Cholelithiasis location: gallbladder Cholecystitis presence: without cholecystitis Biliary obstruction: with biliary obstruction Qualified Code(s): K80.21 - Calculus of gallbladder without cholecystitis with obstruction History of Present Illness Date of Admission: 01/07/18 Chief Complaint: Abdominal pain The patient is a 42 year old M who began to have sudden onset pain yesterday evening. He describes the pain as midline and both upper abdominal quadrants. He says that he does have pain when he eats fatty meals especially mayonnaise in the for years. He was admitted to [facility] early this summer for the same issue. He was jaundiced and an MRCP was completed. At that time they discharged him home without a surgical consult and he was never told to follow- up with a surgeon. He is not have any fevers or chills and today he reports his pain is improved. Past Medical History Past Medical History (Chronic Problems): Chronic Problems (Last Reviewed 11/06/17 @ 09:37 by Ramandeep Rodgers) Essential (primary) hypertension (Chronic) Steatohepatitis (Chronic) Hypothyroidism (Chronic) Type 2 diabetes mellitus without complications (Chronic) Morbid obesity (Chronic) Thrombocytopenia (Chronic) Leukopenia (Chronic) Bilateral lower extremity edema (Chronic) Medical History: Medical History (Last Reviewed 11/06/17 @ 09:37 by Ramandeep Rodgers) Diabetes E11.9 Hyperlipidemia E78.5 Thyroid disease E07.9 Vitamin D deficiency E55.9 Hypertension I10 Allergies wool Adverse Reaction (Severe, Verified 01/06/18 22:13) Hives Home Medications: Ambulatory Orders Medication Instructions Recorded Lisinopril [Zestril] 20 mg PO DAILY 03/30/15 Lovastatin [Mevacor] 20 mg PO QHS 03/30/15 Aspirin [Aspirin, Baby] 81 mg PO DAILY@0800 08/11/16 Metformin HCl 1,000 mg PO BID 08/11/16 [place]-3/Dha/Epa/Fish Oil [Fish Oil 1,200 mg PO BID 08/11/16 1,000 mg Softgel] Ergocalciferol [Vitamin D] 50,000 unit PO BARROS 04/05/17 Insulin NPH Human Isophane 35 unit SQ BID 04/05/17 [Novolin N] Levothyroxine [Synthroid] 100 mcg PO DAILY 04/05/17 Metoprolol Tartrate [Lopressor 50 mg PO BID 04/05/17 (Beta Helen)] Hydrocodone Bitart/Apap 5-325 1 tab PO Q6H PRN PRN 3 Days #10 tab 01/06/18 [[place] 5MG-325MG] Magnesium 250 mg PO TID 01/06/18 Ondansetron [Zofran Odt] 4 mg PO Q8H PRN PRN #10 tab 01/06/18 Surgical History: Surgical History (Last Reviewed 11/06/17 @ 09:38 by Ramandeep Rodgers) History of tonsillectomy and adenoidectomy Z98.890 Surgical History: tonsillectomy Psychiatric History: No pertinent psych hx Lives: With Family - Patient lives with his mother. Smoking Status: Former smoker Tobacco Use: Cigarettes Alcohol: None Drugs: None - *Family History Maternal Family History: Family History (Last Reviewed 11/06/17 @ 09:38 by Ramandeep Rodgers) Grandfather Family history of heart disease Family history of hypertension Mother Family history of high cholesterol Grandfather Family history of high cholesterol Aunt Family history of hypertension Other Family history of hypertension in mother History Items: - - Patient notes a maternal family history of hypertension and hyperlipidemia. Paternal Family History: Family History (Last Reviewed 11/06/17 @ 09:38 by Ramandeep Rodgers) Grandfather Family history of heart disease Family history of hypertension Mother Family history of high cholesterol Grandfather Family history of high cholesterol Aunt Family history of hypertension Other Family history of hypertension in mother History Items: - - Patient notes a paternal family history of heart disease, hypertension, hyperlipidemia and diabetes. Review of Systems Constitutional: Denies: Anorexia, Chills, Fever HEENT: Denies: Difficulty Swallowing Cardiovascular: Denies: Chest Pain Respiratory: Denies: Shortness of Breath Gastrointestinal: Reports: Abdominal Pain, Nausea. Denies: Diarrhea, Vomiting Genitourinary: Denies: Dysuria Musculoskeletal: Denies: Leg Pain, Muscle pain Skin: Denies: Dryness Neurological: Denies: Balance problems Hematologic/ Lymphatic: Reports: Anemia VTE Information - Inpt Only VTE Present on Admission: No VTE Mechan Device Prophylaxis: SCD's Patient Problems: Active and Suspected Problems (Last Reviewed 11/06/17 @ 09:37 by Ramandeep Rodgers) Cholelithiasis (Acute) - Physical Exam General: Alert, Oriented x3, Cooperative, No apparent distress Oral: Moist Mucosa Neck: No JVD Lungs: Normal air movement Cardiovascular: Regular rate, Regular Rhythm Abdomen: Soft, Non-Distended, Obese, Splenomegaly, Tender - Tender in the upper abdominal area. Midline seems to be the worst. Musculoskeletal: No Muscle Wasting Neurological: Cranial nerves II-XII grossly intact Psych/Mental Status: Normal Affect Vital Signs Temp Pulse Resp BP Pulse Ox 97.8 F 115 H 18 148/87 H 94 01/07/18 08:20 01/07/18 08:20 01/07/18 08:20 01/07/18 08:20 01/07/18 08:20 Oxygen Delivery Method Room Air Weight: 442 lb 14.539 oz Body Mass Index (BMI) 63.5 Intake and Output for Last 24 Hours 01/05/18 01/06/18 01/07/18 23:59 23:59 23:59 Intake Total 0 / 0 Output Total 0 / 0 Balance 0 / 0 Laboratory Tests Past 24 Hrs 01/06/18 01/06/18 01/06/18 23:00 23:00 23:00 WBC Cancelled Corrected WBC Cancelled RBC Cancelled Hgb Cancelled Hct Cancelled MCV Cancelled MCH Cancelled MCHC Cancelled RDW Cancelled RDW Differential Cancelled Plt Count Cancelled MPV Cancelled Immature Gran % (Auto) Cancelled Neut % (Auto) Cancelled Lymph % (Auto) Cancelled [place] % (Auto) Cancelled Eos % (Auto) Cancelled Baso % (Auto) Cancelled Absolute Neuts (auto) Cancelled Absolute Lymphs (auto) Cancelled Total Counted Cancelled Neutrophils % (Manual) Cancelled Band Neutrophils % Cancelled Lymphocytes % (Manual) Cancelled Monocytes % (Manual) Cancelled Eosinophils % (Manual) Cancelled Basophils % (Manual) Cancelled Metamyelocytes % Cancelled Myelocytes % Cancelled Promyelocytes % Cancelled Blast Cells % Cancelled Plasma Cell % (Manual) Cancelled Other Cells % Cancelled Nucleated RBCs/100 WBC Cancelled Differential Comment Cancelled Diff Path Review Cancelled Hypersegmented Neuts Cancelled Atypical Lymphocytes Cancelled Reactive Lymphocytes Cancelled Smudge Cells Cancelled Toxic Granulation Cancelled Dohle Bodies Cancelled Jj Rods Cancelled Platelet Estimate Cancelled Plt Morphology Comment Cancelled RBC Morphology Cancelled Polychromasia Cancelled Hypochromasia Cancelled Poikilocytosis Cancelled Basophilic Stippling Cancelled Anisocytosis Cancelled Microcytosis Cancelled Macrocytosis Cancelled Spherocytes Cancelled Sickle Cells Cancelled Target Cells Cancelled Tear Drop Cells Cancelled Ovalocytes Cancelled Stomatocytes Cancelled [place] Bodies Cancelled [place] Cells Cancelled Bite Cells Cancelled Acanthocytes (Spur) Cancelled Rouleaux Cancelled Schistocytes Cancelled Sodium 132 L Potassium 4.3 Chloride 99 Carbon Dioxide 25.0 Anion Gap 8 BUN 19 H Creatinine 1.57 H Estim Creat Clear Calc 62.64 Est GFR (MDRD) Af Amer 62 Est GFR (MDRD) Non-Af 51 L BUN/Creatinine Ratio 12.1 Glucose 202 H Hemoglobin A1c Calcium 10.2 H Magnesium 1.1 L Total Bilirubin 2.10 H Direct Bilirubin 0.32 H AST 63 H ALT 41 Alkaline Phosphatase 144 H Troponin I < 0.015 Total Protein 8.3 H Albumin 3.7 Globulin 4.6 H Lipase 94 01/06/18 01/06/18 01/07/18 23:30 23:30 07:50 WBC 5.5 5.5 Corrected WBC RBC 3.98 L 3.91 L Hgb 13.4 13.3 Hct 36.7 L 36.5 L MCV 92.2 93.4 MCH 33.7 H 34.0 H MCHC 36.5 H 36.4 H RDW 15.5 H 15.7 H RDW Differential 50.3 H 51.9 H Plt Count 140 L 134 L MPV 8.7 8.8 Immature Gran % (Auto) 0.400 0.500 Neut % (Auto) 71.5 H 79.7 H Lymph % (Auto) 15.3 L 10.0 L [place] % (Auto) 9.5 8.5 Eos % (Auto) 2.9 1.1 Baso % (Auto) 0.4 0.2 Absolute Neuts (auto) 3.9 4.4 Absolute Lymphs (auto) 0.84 0.55 L Total Counted Not Reportable Pending Neutrophils % (Manual) Band Neutrophils % Lymphocytes % (Manual) Monocytes % (Manual) Eosinophils % (Manual) Basophils % (Manual) Metamyelocytes % Myelocytes % Promyelocytes % Blast Cells % Plasma Cell % (Manual) Other Cells % Nucleated RBCs/100 WBC Differential Comment Diff Path Review Hypersegmented Neuts Atypical Lymphocytes Reactive Lymphocytes Smudge Cells Toxic Granulation Dohle Bodies Jj Rods Platelet Estimate Plt Morphology Comment RBC Morphology Polychromasia Hypochromasia Poikilocytosis Basophilic Stippling Anisocytosis Microcytosis Macrocytosis Spherocytes Sickle Cells Target Cells Tear Drop Cells Ovalocytes Stomatocytes [place] Bodies [place] Cells Bite Cells Acanthocytes (Spur) Rouleaux Schistocytes Sodium Potassium Chloride Carbon Dioxide Anion Gap BUN Creatinine Estim Creat Clear Calc Est GFR (MDRD) Af Amer Est GFR (MDRD) Non-Af BUN/Creatinine Ratio Glucose Hemoglobin A1c 6.9 H Calcium Magnesium Total Bilirubin Direct Bilirubin AST ALT Alkaline Phosphatase Troponin I Total Protein Albumin Globulin Lipase 01/07/18 07:50 WBC Corrected WBC RBC Hgb Hct MCV MCH MCHC RDW RDW Differential Plt Count MPV Immature Gran % (Auto) Neut % (Auto) Lymph % (Auto) [place] % (Auto) Eos % (Auto) Baso % (Auto) Absolute Neuts (auto) Absolute Lymphs (auto) Total Counted Neutrophils % (Manual) Band Neutrophils % Lymphocytes % (Manual) Monocytes % (Manual) Eosinophils % (Manual) Basophils % (Manual) Metamyelocytes % Myelocytes % Promyelocytes % Blast Cells % Plasma Cell % (Manual) Other Cells % Nucleated RBCs/100 WBC Differential Comment Diff Path Review Hypersegmented Neuts Atypical Lymphocytes Reactive Lymphocytes Smudge Cells Toxic Granulation Dohle Bodies Jj Rods Platelet Estimate Plt Morphology Comment RBC Morphology Polychromasia Hypochromasia Poikilocytosis Basophilic Stippling Anisocytosis Microcytosis Macrocytosis Spherocytes Sickle Cells Target Cells Tear Drop Cells Ovalocytes Stomatocytes [place] Bodies [place] Cells Bite Cells Acanthocytes (Spur) Rouleaux Schistocytes Sodium 131 L Potassium 4.1 Chloride 98 Carbon Dioxide 24.0 Anion Gap 9 BUN 17 Creatinine 1.59 H Estim Creat Clear Calc 61.85 Est GFR (MDRD) Af Amer 61 Est GFR (MDRD) Non-Af 51 L BUN/Creatinine Ratio 10.7 Glucose 236 H Hemoglobin A1c Calcium 9.8 Magnesium 2.2 Total Bilirubin 2.60 H Direct Bilirubin 0.77 H AST 51 H ALT 41 Alkaline Phosphatase 146 H Troponin I Total Protein 8.2 Albumin 3.8 Globulin 4.4 H Lipase POC Glucose 01/07/18 06:25 POC Glucose 232 H Assessment/Plan All Active Problems (Last Reviewed 11/06/17 @ 09:37 by Ramandeep Rodgers) Cholelithiasis (Acute) Peripheral arterial disease (Acute) 42-year-old male with elevated liver enzymes and cholelithiasis 1. Patient had a CT scan yesterday which showed hepatosplenomegaly as well as large gallstones. During the scan the biliary tree did not appear dilated. Lipase was negative yesterday. Patient has what appears to be biliary colic. I am unsure as to why he is having elevated bilirubin. 2. Today his bilirubin has slightly increased but his AST and ALT remain normal. His alk phos remains slightly elevated. There are other issues with his health need to be considered. The patient was recently seen by heme/onc due to hepatosplenomegaly and thrombocytopenia. That was deemed to be likely due to a viral illness. The question is also if he is having increased bilirubin due to hepatomegaly. 3. I believe the patient needs a cholecystectomy due to his very large stones and biliary colic. I would recommend getting an MRCP first to see if there is choledocholithiasis. If there is no obvious choledocholithiasis I will taken for laparoscopic cholecystectomy with cholangiogram to determine if there is any stones in his duct. There also could be extrinsic compression due to the stones on the common duct causing a pseudoobstruction. MRCP should elucidate this. 4. Currently the patient says his pain is mildly improved and his white count is normal. I will continue antibiotics for prophylaxis against cholangitis due to the possible obstruction. I will keep the patient n.p.o. today and on IV fluids until his MRCP is completed. I explained that if there is a stone in the duct we would proceed with ERCP if there is no stone I would proceed with lap caleb with cholangiogram. The patient seems to understand and all questions were answered. 5. The patient has baseline elevated creatinine. He is on IV fluids and he says his creatinine was elevated lab exams at his clinic. Dennis Molina MD Pager: [facility] [address] [place] [address], [address] [place] [address] Office:
[2018-01-07] MEDS: Aspirin 81 MG TAB.CHEW PO (10:20)
[2018-01-07] MEDS: Insulin NPH Human 100 UNITS/ML PEN 35 UNITS SC ×2 (10:21→22:51)
[2018-01-07] MEDS: Lisinopril 20 MG Tablet PO (10:22)
[2018-01-07] MEDS: Metoprolol Tartrate 50 MG Tablet PO ×2 (10:22→22:50)
[2018-01-07 10:25] LABS: Bedside Glucose 249 mg/dL (70-110)
--- NOTE | 2018-01-07 10:36 | PN_ITS ---
Patient Problems: Active and Suspected Problems (Last Reviewed 11/06/17 @ 09:37 by Ramandeep Rodgers) Cholelithiasis (Acute) Subjective: Patient was seen and examined. His pain is 2/10, recently given pain meds. Denies any fever or chills or nausea or vomiting Vitals reviewed show fluctuating blood pressure with a high as being 164/104 likely related to pain. Heart rate has been fluctuating with intermittent tachycardia Vitals/I&O's: Vital Signs Temp Pulse Resp BP Pulse Ox 97.8 F 115 H 18 148/87 H 94 01/07/18 08:20 01/07/18 10:22 01/07/18 08:20 01/07/18 10:22 01/07/18 08:20 Oxygen Delivery Method Room Air Weight: 200.9 kg Body Mass Index (BMI) 63.5 Intake and Output for Last 24 Hours 01/05/18 01/06/18 01/07/18 23:59 23:59 23:59 Intake Total 0 / 0 Output Total 0 / 0 Balance 0 / 0 General: Alert, Oriented x3, Cooperative, No apparent distress, - - Morbidly obese HEENT: Atraumatic, PERRLA, EOMI, Normocephalic Oral: Moist Mucosa Neck: Supple, No JVD, Negative Carotid Bruits Lungs: Clear to auscultation, Normal air movement Cardiovascular: Regular rate, Regular Rhythm, Normal S1, Normal S2, No murmurs Abdomen: Bowel Sounds Present, Soft, Non Tender, Non-Distended, No Hepato- splenomegaly, Obese, Tender - Over the epigastric and right upper quadrant Extremities: No edema Skin: No rashes, No breakdown Musculoskeletal: No Tenderness to Palpation of Joints or Extremities Lymphatic: No Cervical, Supraclavicular, or Inguinal Adenopathy Neurological: Cranial nerves II-XII grossly intact, Neuro grossly intact Psych/Mental Status: Normal Affect, Appropriate Laboratory Results 01/06/18 23:00: WBC Cancelled, Corrected WBC Cancelled, RBC Cancelled, Hgb Cancelled, Hct Cancelled, MCV Cancelled, MCH Cancelled, MCHC Cancelled, RDW Cancelled, RDW Differential Cancelled, Plt Count Cancelled, MPV Cancelled, Immature Gran % (Auto) Cancelled, Neut % (Auto) Cancelled, Lymph % (Auto) Cancelled, [place] % (Auto) Cancelled, Eos % (Auto) Cancelled, Baso % (Auto) Cancelled, Absolute Neuts (auto) Cancelled, Absolute Lymphs (auto) Cancelled, Total Counted Cancelled, Neutrophils % (Manual) Cancelled, Band Neutrophils % Cancelled, Lymphocytes % (Manual) Cancelled, Monocytes % (Manual) Cancelled, Eosinophils % (Manual) Cancelled, Basophils % (Manual) Cancelled, Metamyelocytes % Cancelled, Myelocytes % Cancelled, Promyelocytes % Cancelled, Blast Cells % Cancelled, Plasma Cell % (Manual) Cancelled, Other Cells % Cancelled, Nucleated RBCs/100 WBC Cancelled, Differential Comment Cancelled, Diff Path Review Cancelled, Hypersegmented Neuts Cancelled, Atypical Lymphocytes Cancelled, Reactive Lymphocytes Cancelled, Smudge Cells Cancelled, Toxic Granulation Cancelled, Dohle Bodies Cancelled, Jj Rods Cancelled, Platelet Estimate Ca ncelled, Plt Morphology Comment Cancelled, RBC Morphology Cancelled, Polychromasia Cancelled, Hypochromasia Cancelled, Poikilocytosis Cancelled, Basophilic Stippling Cancelled, Anisocytosis Cancelled, Microcytosis Cancelled, Macrocytosis Cancelled, Spherocytes Cancelled, Sickle Cells Cancelled, Target Cells Cancelled, Tear Drop Cells Cancelled, Ovalocytes Cancelled, Stomatocytes Cancelled, [place] Bodies Cancelled, [place] Cells Cancelled, Bite Cells Cancelled, Acanthocytes (Spur) Cancelled, Rouleaux Cancelled, Schistocytes Cancelled 01/06/18 23:00: Sodium 132 L, Potassium 4.3, Chloride 99, Carbon Dioxide 25.0, Anion Gap 8, BUN 19 H, Creatinine 1.57 H, Estim Creat Clear Calc 62.64, Est GFR (MDRD) Af Amer 62, Est GFR (MDRD) Non-Af 51 L, BUN/Creatinine Ratio 12.1, Glucose 202 H, Calcium 10.2 H, Total Bilirubin 2.10 H, Direct Bilirubin 0.32 H, AST 63 H, ALT 41, Alkaline Phosphatase 144 H, Troponin I < 0.015, Total Protein 8.3 H, Albumin 3.7, Globulin 4.6 H, Lipase 94 01/06/18 23:00: Magnesium 1.1 L 01/06/18 23:30: WBC 5.5, RBC 3.98 L, Hgb 13.4, Hct 36.7 L, MCV 92.2, MCH 33.7 H, MCHC 36.5 H, RDW 15.5 H, RDW Differential 50.3 H, Plt Count 140 L, MPV 8.7, Immature Gran % (Auto) 0.400, Neut % (Auto) 71.5 H, Lymph % (Auto) 15.3 L, [place] % (Auto) 9.5, Eos % (Auto) 2.9, Baso % (Auto) 0.4, Absolute Neuts (auto) 3.9, Absolute Lymphs (auto) 0.84, Total Counted Not Reportable 01/06/18 23:30: Hemoglobin A1c 6.9 H 01/07/18 06:25: POC Glucose 232 H 01/07/18 07:50: WBC 5.5, RBC 3.91 L, Hgb 13.3, Hct 36.5 L, MCV 93.4, MCH 34.0 H, MCHC 36.4 H, RDW 15.7 H, RDW Differential 51.9 H, Plt Count 134 L, MPV 8.8, Immature Gran % (Auto) 0.500, Neut % (Auto) 79.7 H, Lymph % (Auto) 10.0 L, [place] % (Auto) 8.5, Eos % (Auto) 1.1, Baso % (Auto) 0.2, Absolute Neuts (auto) 4.4, Absolute Lymphs (auto) 0.55 L, Total Counted Not Reportable, Differential Comment SCANNED 01/07/18 07:50: Sodium 131 L, Potassium 4.1, Chloride 98, Carbon Dioxide 24.0, Anion Gap 9, BUN 17, Creatinine 1.59 H, Estim Creat Clear Calc 61.85, Est GFR (MDRD) Af Amer 61, Est GFR (MDRD) Non-Af 51 L, BUN/Creatinine Ratio 10.7, Glucose 236 H, Calcium 9.8, Magnesium 2.2, Total Bilirubin 2.60 H, Direct Bilirubin 0.77 H, AST 51 H, ALT 41, Alkaline Phosphatase 146 H, Total Protein 8.2, Albumin 3.8, Globulin 4.4 H 01/07/18 10:14: POC Glucose 249 H Current Medications Acetaminophen (Tylenol) 650 mg PO Q6H PRN PRN PRN Reason: Non-cardiac pain (mod-severe) Aspirin (Aspirin, Baby) 81 mg PO DAILY@0800 [facility] Last Admin: 01/07/18 10:20 Dose: 81 mg Atorvastatin Calcium (Lipitor) 5 mg PO QHS [facility] Hydralazine HCl (Apresoline Iv) 10 mg IV Q4H PRN PRN PRN Reason: SBP > 160 Hydromorphone HCl (Dilaudid Inj) 1 mg IV Q3H PRN PRN PRN Reason: SEVERE PAIN (6-12/20) Last Admin: 01/07/18 10:26 Dose: 1 mg Sodium Chloride () 1,000 mls @ 125 mls/hr IV .Q8H [facility] Last Admin: 01/07/18 03:24 Dose: 125 mls/hr Pantoprazole Sodium 40 mg/ (Sodium Chloride) 110 mls @ 330 mls/hr IV Q12 [facility] Last Admin: 01/07/18 10:26 Dose: 330 mls/hr Piperacillin Sod/Tazobactam Sod (Zosyn) 3.375 gm in 50 mls @ 12.5 mls/hr IV Q8 [facility] Last Admin: 01/07/18 04:44 Dose: 12.5 mls/hr Insulin Human Lispro (Humalog Kwikpen (Bkc)) 0 unit SC ACHS [facility]; Protocol Last Admin: 01/07/18 06:28 Dose: 6 units Insulin Human NPH (Humulin N (Bkc)) 35 units SC BID [facility] Last Admin: 01/07/18 10:21 Dose: 35 units Levothyroxine Sodium (Synthroid) 100 mcg PO DAILY@0600 [facility] Last Admin: 01/07/18 06:28 Dose: 100 mcg Lisinopril (Zestril) 20 mg PO DAILY [facility] Last Admin: 01/07/18 10:22 Dose: 20 mg Magnesium Hydroxide (Milk Of Magnesia) 30 ml PO DAILY PRN PRN PRN Reason: Constipation Metoprolol Tartrate (Lopressor (Beta Helen)) 50 mg PO BID [facility] Last Admin: 01/07/18 10:22 Dose: 50 mg Ondansetron HCl (Zofran) 4 mg IV Q8H PRN PRN PRN Reason: NAUSEA Oxycodone HCl (Oxyir) 5 - 10 mg PO Q4H PRN PRN PRN Reason: SEVERE PAIN (6-12/20) Promethazine HCl (Phenergan) 12.5 mg IV Q6H PRN PRN PRN Reason: NAUSEA/VOMITING Sodium Chloride () 5 - 30 ml IV UD PRN PRN Reason: SALINE FLUSH Last Admin: 01/07/18 10:26 Dose: 10 ml Medical Necessity - Tobacco Use Smoking Status: Former smoker Tobacco Use: Cigarettes Assessment/Plan All Active Problems (Last Reviewed 11/06/17 @ 09:37 by Ramandeep Rodgers) Cholelithiasis (Acute) Peripheral arterial disease (Acute) 42-year-old male, super morbidly obese, type II DM, hypertension, hyperlipidemia, hypothyroidism who comes in with complaints of abdominal pain. He was seen earlier in the emergency department and gallstones were found on CT. He presented again with abdominal pain that comes and goes. 1. Acute upper abdominal/RUQ pain, secondary to biliary colic, less likely secondary to cholangitis, no leukocytosis, no fever General surgery consulted, MRCP planned, will follow up with general surgery re commendations, continue with pain control 2. Elevated LFTs, increasing total bilirubin to 2.6, direct to 0.77, increased ALP likely related to gallstones, patient appears stable, cholangitis is less on the differential, on prophylactic antibiotics pending evaluation of the biliary tree 3. Type II DM, HbA1c 6.9, blood sugars fairly uncontrolled, was on metformin, insulin, metformin held, will continue to monitor for now as patient will be kept n.p.o. for MRCP very soon 4. Hypertension, controlled with previous of elevated blood pressure likely related to pain, continue on lisinopril, metoprolol, pain control, continue to monitor blood pressures 5. Hyperlipidemia, on statin 6. Hypothyroidism, on levothyroxine 7. SONIA on CPAP 8. History of leukopenia, thrombocytopenia, secondary to bone marrow suppression following viral infection, cell lines appear to have improved, following remotely with oncology 9. DVT prophylaxis with SCDs for now, pending surgery Code Visit Inpatient E&M: 77939 Subs Hosp L2
[2018-01-07 12:25] LABS: Bedside Glucose 228 mg/dL (70-110)
[2018-01-07 16:16] LABS: Bedside Glucose 238 mg/dL (70-110)
[2018-01-07] MEDS: Atorvastatin Calcium 10 MG Tablet 5 MG PO (22:49)
[2018-01-07 23:16] LABS: Bedside Glucose 251 mg/dL (70-110)
[2018-01-08] VITALS (10 sets, daily range): BP systolic 110–136; BP diastolic 65–75; PULSE 90–125; RESP 18–24; TEMP 36.9–37.7; O2SAT 92–97
[2018-01-08] MEDS: Insulin Lispro 100 UNIT/ML INSULN.PEN SC ×3 (00:49→18:02)
[2018-01-08] MEDS: 0.9% Normal Saline 1,000 ML 75 ML IV (01:00)
[2018-01-08 01:01] LABS: Bedside Glucose 250 mg/dL (70-110)
[2018-01-08] MEDS: Piperacil/Tazobactam 3.375 GM/50 ML ML IV ×3 (05:58→21:38)
[2018-01-08] MEDS: 0.9% NaCl Peripheral Flush Adult/Peds IV ×2 (06:00→21:37)
[2018-01-08] MEDS: Levothyroxine 100 MCG Tablet PO (06:01)
[2018-01-08 06:15] LABS: Bedside Glucose 238 mg/dL (70-110)
[2018-01-08 06:15] LABS: Absolute Lymphocyte Count 0.73 X10^3/ul (0.83-4.51); Absolute Neutrophil Count 6.8 X10^3/uL (2.0-7.7); Basophil# 0.01 X10^3/uL; Basophil% 0.1 % (0-1); Eosinophil# 0.09 X10^3/uL; Hematocrit 35.2 % (40-54); Hemoglobin 12.7 g/dl (13.0-16.5); Lymphocyte # 0.73 X10^3/ul (4.0); Lymphocyte % 8.5 % (19-41); Mean Corp Hgb Conc 36.1 g/gl (32-36); Mean Corpuscular Hgb 34.2 pg (27.0-32.0); Mean Corpuscular Volume 94.9 fL (80-94); Mean Platelet Vol. 9.3 fl (6.2-12.0); Monocyte# 0.95 X10^3/uL; Neutrophil # 6.81 X10^3/uL (2.7-7.7); Neutrophil % 79.1 % (47-70); Platelet Count 140 K/mm3 (150-450); RBC Distribution Width CV 16.1 % (11.6-14.6); RBC Distribution Width SD 52.8 fl (35.1-43.9); Red Blood Count 3.71 M/mm3 (4.6-6.2); White Blood Count 8.6 K/mm3 (4.4-11.0)
[2018-01-08 06:24] LABS: ALB/GLOB Ratio 0.8 RATIO (0.9-2.4); AST(SGOT) 53 U/L (15-37); Alanine Aminotransfer ALT/SGPT 43 U/L (16-61); Albumin, Serum 3.3 g/dL (3.2-5.0); Alkaline Phosphatase 142 U/L (45-117); Anion Gap 11 (5-15); BUN 20 mg/dL (7-18); BUN/Creat Ratio 11.1 RATIO (10-20); Calcium,Total 9.7 mg/dL (8.5-10.1); Chloride 99 mmol/L (98-107); EST Glomerular Filtration Rate 44 mL/min (>60); Est Glom Filt Rate - Afr Amer 53 mL/min (>60); Estimated Creatinine Clearance 54.64 ml/min; Globulin 4.4 g/dL (2.2-4.2); Glucose 214 mg/dL (74-106); Potassium 3.9 mmol/L (3.5-5.1); Protein, Total 7.7 g/dL (6.4-8.2); Sodium Level 134 mmol/L (136-145)
[2018-01-08 06:39] LABS: POSITIVE COUNT NO; POSITIVE DIFFERENTIAL NO; POSITIVE MORPHOLOGY NO
--- NOTE | 2018-01-08 07:53 | PCM.PN.HOSP ---
Patient Problems: Active and Suspected Problems (Last Reviewed 11/06/17 @ 09:37 by Ramandeep Rodgers) Cholelithiasis (Acute) Subjective: Patient was seen and examined. 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 Discussed with surgeon, patient will be transferred . He has been accepted at [facility]. Denies any new complaints. Pain is controlled. Objective: General: Alert, Oriented x3, Cooperative, No apparent distress, - - Morbidly obese HEENT: Atraumatic, PERRLA, EOMI, Normocephalic Oral: Moist Mucosa Neck: Supple, No JVD, Negative Carotid Bruits Lungs: Clear to auscultation, Normal air movement Cardiovascular: Regular rate, Regular Rhythm, Normal S1, Normal S2, No murmurs Abdomen: Bowel Sounds Present, Soft, Non Tender, Non-Distended, No Hepato-splenomegaly, Obese, Tender - Over the epigastric and right upper quadrant Extremities: No edema Skin: No rashes, No breakdown Musculoskeletal: No Tenderness to Palpation of Joints or Extremities Lymphatic: No Cervical, Supraclavicular, or Inguinal Adenopathy Neurological: Cranial nerves II-XII grossly intact, Neuro grossly intact Psych/Mental Status: Normal Affect, Appropriate Vitals/I&O's: Vital Signs Temp Pulse Resp BP Pulse Ox 99.8 F H 116 H 18 122/66 H 96 01/08/18 04:20 01/08/18 04:20 01/08/18 04:20 01/08/18 04:20 01/08/18 04:20 Oxygen Delivery Method Room Air Weight: 200.9 kg Body Mass Index (BMI) 63.5 Intake and Output for Last 24 Hours 01/06/18 01/07/18 01/08/18 23:59 23:59 23:59 Intake Total 928 / 928 1170 / 1170 Output Total 675 / 675 700 / 700 Balance 253 / 253 470 / 470 Laboratory Results 01/07/18 07:50: WBC 5.5, RBC 3.91 L, Hgb 13.3, Hct 36.5 L, MCV 93.4, MCH 34.0 H, MCHC 36.4 H, RDW 15.7 H, RDW Differential 51.9 H, Plt Count 134 L, MPV 8.8, Immature Gran % (Auto) 0.500, Neut % (Auto) 79.7 H, Lymph % (Auto) 10.0 L, [place] % (Auto) 8.5, Eos % (Auto) 1.1, Baso % (Auto) 0.2, Absolute Neuts (auto) 4.4, Absolute Lymphs (auto) 0.55 L, Total Counted Not Reportable, Differential Comment SCANNED 01/07/18 07:50: Sodium 131 L, Potassium 4.1, Chloride 98, Carbon Dioxide 24.0, Anion Gap 9, BUN 17, Creatinine 1.59 H, Estim Creat Clear Calc 61.85, Est GFR (MDRD) Af Amer 61, Est GFR (MDRD) Non-Af 51 L, BUN/Creatinine Ratio 10.7, Glucose 236 H, Calcium 9.8, Magnesium 2.2, Total Bilirubin 2.60 H, Direct Bilirubin 0.77 H, AST 51 H, ALT 41, Alkaline Phosphatase 146 H, Total Protein 8.2, Albumin 3.8, Globulin 4.4 H 01/07/18 10:14: POC Glucose 249 H 01/07/18 12:14: POC Glucose 228 H 01/07/18 16:05: POC Glucose 238 H 01/07/18 22:48: POC Glucose 251 H 01/08/18 00:47: POC Glucose 250 H 01/08/18 05:05: WBC 8.6, RBC 3.71 L, Hgb 12.7 L, Hct 35.2 L, MCV 94.9 H, MCH 34.2 H, MCHC 36.1 H, RDW 16.1 H, RDW Differential 52.8 H, Plt Count 140 L, MPV 9.3, Immature Gran % (Auto) 0.300, Neut % (Auto) 79.1 H, Lymph % (Auto) 8.5 L, [place] % (Auto) 11.0 H, Eos % (Auto) 1.0, Baso % (Auto) 0.1, Absolute Neuts (auto) 6.8, Absolute Lymphs (auto) 0.73 L, Total Counted Not Reportable 01/08/18 05:05: Sodium 134 L, Potassium 3.9, Chloride 99, Carbon Dioxide 24.0, Anion Gap 11, BUN 20 H, Creatinine 1.80 H, Estim Creat Clear Calc 54.64, Est GFR (MDRD) Af Amer 53 L, Est GFR (MDRD) Non-Af 44 L, BUN/Creatinine Ratio 11.1, Glucose 214 H, Calcium 9.7, Total Bilirubin 3.60 H, AST 53 H, ALT 43, Alkaline Phosphatase 142 H, Total Protein 7.7, Albumin 3.3, Globulin 4.4 H, Albumin/Globulin Ratio 0.8 L 01/08/18 05:05: Vit D 1,25-Dihydroxy Pending 01/08/18 05:56: POC Glucose 238 H Current Medications Acetaminophen (Tylenol) 650 mg PO Q6H PRN PRN PRN Reason: Non-cardiac pain (mod-severe) Aspirin (Aspirin, Baby) 81 mg PO DAILY@0800 [facility] Last Admin: 01/07/18 10:20 Dose: 81 mg Atorvastatin Calcium (Lipitor) 5 mg PO QHS [facility] Last Admin: 01/07/18 22:49 Dose: 5 mg Hydralazine HCl (Apresoline Iv) 10 mg IV Q4H PRN PRN PRN Reason: SBP > 160 Hydromorphone HCl (Dilaudid Inj) 1 mg IV Q3H PRN PRN PRN Reason: SEVERE PAIN (-12/20) Last Admin: 01/07/18 16:13 Dose: 1 mg Pantoprazole Sodium 40 mg/ (Sodium Chloride) 110 mls @ 330 mls/hr IV Q12 [facility] Last Admin: 01/07/18 21:32 Dose: 330 mls/hr Piperacillin Sod/Tazobactam Sod (Zosyn) 3.375 gm in 50 mls @ 12.5 mls/hr IV Q8 [facility] Last Admin: 01/08/18 05:58 Dose: 12.5 mls/hr Insulin Human Lispro (Humalog Kwikpen (Bkc)) 0 unit SC Q6 [facility]; Protocol Last Admin: 01/08/18 06:00 Dose: 6 units Levothyroxine Sodium (Synthroid) 100 mcg PO DAILY@0600 [facility] Last Admin: 01/08/18 06:01 Dose: 100 mcg Lisinopril (Zestril) 20 mg PO DAILY [facility] Last Admin: 01/07/18 10:22 Dose: 20 mg Magnesium Hydroxide (Milk Of Magnesia) 30 ml PO DAILY PRN PRN PRN Reason: Constipation Metoprolol Tartrate (Lopressor (Beta Helen)) 50 mg PO BID [facility] Last Admin: 01/07/18 22:50 Dose: 50 mg Ondansetron HCl (Zofran) 4 mg IV Q8H PRN PRN PRN Reason: NAUSEA Oxycodone HCl (Oxyir) 5 - 10 mg PO Q4H PRN PRN PRN Reason: SEVERE PAIN (6-10/10) Promethazine HCl (Phenergan) 12.5 mg IV Q6H PRN PRN PRN Reason: NAUSEA/VOMITING Sodium Chloride () 5 - 30 ml IV UD PRN PRN Reason: SALINE FLUSH Last Admin: 01/08/18 06:00 Dose: 10 ml Medical Necessity - Tobacco Use Smoking Status: Former smoker Tobacco Use: Cigarettes Assessment/Plan All Active Problems (Last Reviewed 11/06/17 @ 09:37 by Ramandeep Rodgers) Cholelithiasis (Acute) Peripheral arterial disease (Acute) 42-year-old male, super morbidly obese, type II DM, hypertension, hyperlipidemia, hypothyroidism who comes in with complaints of abdominal pain. He was seen earlier in the emergency department and gallstones were found on CT. He presented again with abdominal pain that comes and goes. 1. 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 Elevated LFTs, persistent elevation of cholestatic enzymes, likely related to gallstones, slight elevation in bilirubin and ALP, was on prophylactic antibiotics for possible cholangitis 3. Type II DM, HbA1c 6.9, blood sugars are uncontrolled, was on metformin, NPH insulin, metformin held, NPH increased to 37 units BID, continue with accucheks and ISS. 4. Elevated creatinine secondary to dehydration/being kept n.p.o., would increase IV fluid rate, 5. Hypertension, controlled with previous of elevated blood pressure likely related to pain, continue on lisinopril, metoprolol, pain control, continue to monitor blood pressures 6. Hyperlipidemia, on statin 7. Hypothyroidism, on levothyroxine 8. SONIA on CPAP 9. History of leukopenia, thrombocytopenia, secondary to bone marrow suppression following viral infection, cell lines appear to have improved, following remotely with oncology 10. Super morbid obesity, BMI 63.6, diet exercise is recommended 11. DVT prophylaxis with SCDs for now, pending surgery Code Visit Inpatient E&M: 63842 Subs Hosp L2
--- NOTE | 2018-01-08 08:00 | MRI_ITS ---
STUDY: MR CHOLANGIOPANCREATOGRAPHY (MRCP) REASON FOR EXAM: Male, 42 years old. Pain, gallstones TECHNIQUE: Standard MRCP technique was utilized. COMPARISON: CT abdomen and pelvis dated January 06, 2018 FINDINGS: Gall Bladder: There are filling defects in the lumen of the gallbladder measuring up to 4 cm in size. There is gallbladder wall thickening with minimal fluid around the gallbladder. Cystic duct: Normal with no demonstrated fixed filling defect. Intrahepatic ducts: Normal visualized intrahepatic ducts with no demonstrated fixed filling defect, dilation or stricture. Common hepatic duct: Normal with no demonstrated fixed filling defect, dilation or stricture. Common bile duct: Normal with no demonstrated fixed filling defect, dilation or stricture. Pancreatic duct: Normal with no demonstrated fixed filling defect, dilation or stricture. MRI/MRCP Abdomen without Contrast IMPRESSION: Gallstones are again seen in the lumen of the gallbladder. There is gallbladder wall thickening with pericholecystic fluid consistent with acute cholecystitis. There is no biliary ductal dilatation. No stones are evident within the biliary ducts. Electronically Signed: Roxana Singleton MD at 10:17 EDT Tel Direct: [phone], Service support ,
--- NOTE | 2018-01-08 10:39 | PCM.PN.SRG ---
Patient Problems: Active and Suspected Problems (Last Reviewed 11/06/17 @ 09:37 by Ramandeep Rodgers) Cholelithiasis (Acute) Subjective: Patient reports his pain is better today. He rates it as a 2 or 3. He is not having any nausea or vomiting. No fevers or chills. - Physical Exam General: Alert, Oriented x3, Cooperative, No apparent distress HEENT: Atraumatic Neck: No JVD Lungs: Normal air movement Cardiovascular: Regular rate, Regular Rhythm Abdomen: Soft, Non-Distended, Tender - Mild right upper quadrant tenderness to palpation. No guarding or rebound. Neurological: Cranial nerves II-XII grossly intact Psych/Mental Status: Normal Affect Vital Signs Temp Pulse Resp BP Pulse Ox 99 F 125 H 24 H 116/75 95 01/08/18 10:26 01/08/18 10:26 01/08/18 10:26 01/08/18 10:26 01/08/18 10:26 Oxygen Delivery Method Room Air Weight: 442 lb 14.539 oz Body Mass Index (BMI) 63.5 Intake and Output for Last 24 Hours 01/06/18 01/07/18 01/08/18 23:59 23:59 23:59 Intake Total 928 / 928 1170 / 1170 Output Total 675 / 675 700 / 700 Balance 253 / 253 470 / 470 Laboratory Tests Past 24 Hrs 01/08/18 01/08/18 01/08/18 05:05 05:05 05:05 WBC 8.6 RBC 3.71 L Hgb 12.7 L Hct 35.2 L MCV 94.9 H MCH 34.2 H MCHC 36.1 H RDW 16.1 H RDW Differential 52.8 H Plt Count 140 L MPV 9.3 Immature Gran % (Auto) 0.300 Neut % (Auto) 79.1 H Lymph % (Auto) 8.5 L [place] % (Auto) 11.0 H Eos % (Auto) 1.0 Baso % (Auto) 0.1 Absolute Neuts (auto) 6.8 Absolute Lymphs (auto) 0.73 L Total Counted Not Reportable Sodium 134 L Potassium 3.9 Chloride 99 Carbon Dioxide 24.0 Anion Gap 11 BUN 20 H Creatinine 1.80 H Estim Creat Clear Calc 54.64 Est GFR (MDRD) Af Amer 53 L Est GFR (MDRD) Non-Af 44 L BUN/Creatinine Ratio 11.1 Glucose 214 H Calcium 9.7 Total Bilirubin 3.60 H AST 53 H ALT 43 Alkaline Phosphatase 142 H Total Protein 7.7 Albumin 3.3 Globulin 4.4 H Albumin/Globulin Ratio 0.8 L Vit D 1,25-Dihydroxy Pending POC Glucose 01/08/18 01/08/18 01/07/18 05:56 00:47 22:48 POC Glucose 238 H 250 H 251 H 01/07/18 01/07/18 16:05 12:14 POC Glucose 238 H 228 H Clinical Impression(s) from Imaging Studies MRCP 01/08/18 08:00 IMPRESSION: Gallstones are again seen in the lumen of the gallbladder. There is gallbladder wall thickening with pericholecystic fluid consistent with acute cholecystitis. There is no biliary ductal dilatation. No stones are evident within the biliary ducts. Electronically Signed: Roxana Singleton MD at 10:17 EDT Tel Direct: [phone], Service support , ADDENDUM: 01/08/18 1034 There is focal loss of signal in the proximal to mid common bile duct, with inflammation seen at the level of this signal dropout. Although there is not marked dilatation of the ducts proximal to this section, Mirizzi syndrome cannot be excluded on these images, caused by inflammation involving the proximal to mid common bile duct. Medical Necessity - Tobacco Use Smoking Status: Former smoker Tobacco Use: Cigarettes Assessment/Plan All Active Problems (Last Reviewed 11/06/17 @ 09:37 by Ramandeep Rodgers) Cholelithiasis (Acute) Peripheral arterial disease (Acute) 42-year-old male with cholelithiasis and obstruction 1. The patient's total bilirubin continued to rise today. 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 The MRCP shows tapering of the mid common bile duct adjacent to a large stone with inflammation between the stone and common bile duct. I am concerned that the patient has had this chronic inflammation for a very long time and that there may be erosion into the common bile duct which is causing his elevated bilirubin. I recommend transfer to tertiary care center with a biliary surgeon as this will be a technically very difficult repair if there is any erosion or ulceration of the common bile duct. 2. I will arrange transfer for the patient for definitive surgical care. In the meantime continue n.p.o./IV fluids, IV antibiotics. Dennis Molina MD Pager: [facility] [address] [place] [address], [address] [place] [address] Office:
--- NOTE | 2018-01-08 10:42 | PCM.DC.SUM ---
Discharge Date and Diagnosis - Problem List Patient Problems: Active and Suspected Problems (Last Reviewed 11/06/17 @ 09:37 by Ramandeep Rodgers) Cholelithiasis (Acute) Date of Admission: 01/07/18 Date of Discharge: 01/08/18 - Primary Discharge Diagnosis Active and Suspected Problems (Last Reviewed 11/06/17 @ 09:37 by Ramandeep Rodgers) Cholelithiasis (Acute) - Secondary Discharge Diagnosis Chronic Problems (Last Reviewed 11/06/17 @ 09:37 by Ramandeep Rodgers) Essential (primary) hypertension (Chronic) Steatohepatitis (Chronic) Hypothyroidism (Chronic) Type 2 diabetes mellitus without complications (Chronic) Morbid obesity (Chronic) Thrombocytopenia (Chronic) Leukopenia (Chronic) Bilateral lower extremity edema (Chronic) Hospital Course and Treatment Imaging Results: 01/08/18 08:00 MRCP Abdomen without Contrast [MRI] Stat Clinical Impression(s) from Imaging Studies MRCP 01/08/18 08:00 IMPRESSION: Gallstones are again seen in the lumen of the gallbladder. There is gallbladder wall thickening with pericholecystic fluid consistent with acute cholecystitis. There is no biliary ductal dilatation. No stones are evident within the biliary ducts. Electronically Signed: Roxana Singleton MD at 10:17 EDT Tel Direct: [phone], Service support , ADDENDUM: 01/08/18 1035 There is focal loss of signal in the proximal to mid common bile duct, with inflammation seen at the level of this signal dropout. Although there is not marked dilatation of the ducts proximal to this section, Mirizzi syndrome cannot be excluded on these images, caused by inflammation involving the proximal to mid common bile duct. Hospitalist service Operations: None Procedures: None Summary of Care Provided: The patient is a 42 year old M who presented with right upper quadrant pain. His bilirubin and alkaline phosphatase were elevated. He was admitted to the floor. He was started on prophylactic antibiotics due to his elevated bilirubin. The patient had a history of biliary obstruction in June and was sent to [place] where an MRCP was completed and he was discharged home without surgical intervention. I was unable to get these records in time and an MRCP was completed today. 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 At this time I believe the patient warrants transfer to a tertiary care center with a biliary surgeon. He was accepted for transfer to the [facility] service at in [place]. Patient Problems: Active and Suspected Problems (Last Reviewed 11/06/17 @ 09:37 by Ramandeep Rodgers) Cholelithiasis (Acute) - Physical Exam Vital Signs Temp Pulse Resp BP Pulse Ox 99 F 125 H 24 H 116/75 95 01/08/18 10:26 01/08/18 10:26 01/08/18 10:26 01/08/18 10:26 01/08/18 10:26 Oxygen Delivery Method Room Air Weight: 442 lb 14.539 oz Body Mass Index (BMI) 63.5 Intake and Output for Last 24 Hours 01/06/18 01/07/18 01/08/18 23:59 23:59 23:59 Intake Total 928 / 928 1170 / 1170 Output Total 675 / 675 700 / 700 Balance 253 / 253 470 / 470 Laboratory Tests Past 24 Hrs 01/08/18 01/08/18 01/08/18 05:05 05:05 05:05 WBC 8.6 RBC 3.71 L Hgb 12.7 L Hct 35.2 L MCV 94.9 H MCH 34.2 H MCHC 36.1 H RDW 16.1 H RDW Differential 52.8 H Plt Count 140 L MPV 9.3 Immature Gran % (Auto) 0.300 Neut % (Auto) 79.1 H Lymph % (Auto) 8.5 L [place] % (Auto) 11.0 H Eos % (Auto) 1.0 Baso % (Auto) 0.1 Absolute Neuts (auto) 6.8 Absolute Lymphs (auto) 0.73 L Total Counted Not Reportable Sodium 134 L Potassium 3.9 Chloride 99 Carbon Dioxide 24.0 Anion Gap 11 BUN 20 H Creatinine 1.80 H Estim Creat Clear Calc 54.64 Est GFR (MDRD) Af Amer 53 L Est GFR (MDRD) Non-Af 44 L BUN/Creatinine Ratio 11.1 Glucose 214 H Calcium 9.7 Total Bilirubin 3.60 H AST 53 H ALT 43 Alkaline Phosphatase 142 H Total Protein 7.7 Albumin 3.3 Globulin 4.4 H Albumin/Globulin Ratio 0.8 L Vit D 1,25-Dihydroxy Pending POC Glucose 01/08/18 01/08/18 01/07/18 05:56 00:47 22:48 POC Glucose 238 H 250 H 251 H 01/07/18 01/07/18 16:05 12:14 POC Glucose 238 H 228 H Home Medications: Medications to take at Discharge Lisinopril [Zestril] 20 mg PO DAILY 03/30/15 Lovastatin [Mevacor] 20 mg PO QHS 03/30/15 Aspirin [Aspirin, Baby] 81 mg PO DAILY@0800 08/11/16 Metformin HCl 1,000 mg PO BID 08/11/16 [place]-3/Dha/Epa/Fish Oil [Fish Oil 1,000 mg Softgel] 1,200 mg PO BID 08/11/16 Ergocalciferol [Vitamin D] 50,000 unit PO BARROS 04/05/17 Insulin NPH Human Isophane [Novolin N] 35 unit SQ BID 04/05/17 Levothyroxine [Synthroid] 100 mcg PO DAILY 04/05/17 Metoprolol Tartrate [Lopressor (Beta Helen)] 50 mg PO BID 04/05/17 Hydrocodone Bitart/Apap 5-325 [[place] 5MG-325MG] 1 tab PO Q6H PRN PRN 3 Days #10 tab 01/06/18 Magnesium 250 mg PO TID 01/06/18 Ondansetron [Zofran Odt] 4 mg PO Q8H PRN PRN #10 tab 01/06/18 Primary Care Physician: Linnette Xavier [Primary Care Provider] - Medical Necessity - Tobacco Use Smoking Status: Former smoker Tobacco Use: Cigarettes Meaningful Use Info Meaningful Use Diagnoses (Choose all that apply): None applicable
[2018-01-08] MEDS: 0.9% Normal Saline 1,000 ML 100 ML IV ×2 (10:55→15:22)
[2018-01-08] MEDS: Metoprolol Tartrate 50 MG Tablet PO ×2 (10:56→21:49)
[2018-01-08 11:05] LABS: Bedside Glucose 218 mg/dL (70-110)
--- NOTE | 2018-01-08 16:40 | NURSING ---
still awaiting bed assignment from
--- NOTE | 2018-01-08 17:36 | PCA ---
called [facility] and talked to transfer line. They informed me that they do not have a bed open yet for the patient and dont expect to have one until possibly late tonight. They said they are tight in beds and the floor that he is going to is full.. they said they will call when they have one open, unless the patient condition worsens then it will take a bit.
[2018-01-08 18:51] LABS: Bedside Glucose 194 mg/dL (70-110)
[2018-01-08] MEDS: Atorvastatin Calcium 10 MG Tablet 5 MG PO (21:49)
[2018-01-08] MEDS: Insulin NPH Human 100 UNITS/ML PEN 37 UNITS SC (21:53)
[2018-01-09] VITALS (9 sets, daily range): BP systolic 96–117; BP diastolic 54–70; PULSE 78–96; RESP 16–18; TEMP 36.9–37.3; O2SAT 93–99
[2018-01-09 00:11] LABS: Bedside Glucose 197 mg/dL (70-110)
[2018-01-09] MEDS: Insulin Lispro 100 UNIT/ML INSULN.PEN SC (00:20)
[2018-01-09 00:31] LABS: Bedside Glucose 165 mg/dL (70-110)
--- NOTE | 2018-01-09 00:40 | NURSING ---
Addendum entered by Ruth Pinto 01/09/18 01:31: No bed avaliable at this time. Original Note: transfer center called updated on vitals
[2018-01-09] MEDS: 0.9% Normal Saline 1,000 ML 100 ML IV ×3 (03:33→23:32)
[2018-01-09] MEDS: Levothyroxine 100 MCG Tablet PO (06:13)
[2018-01-09] MEDS: Piperacil/Tazobactam 3.375 GM/50 ML ML IV ×3 (06:18→21:26)
[2018-01-09 06:26] LABS: Bedside Glucose 138 mg/dL (70-110)
[2018-01-09 08:29] LABS: Absolute Lymphocyte Count 0.74 X10^3/ul (0.83-4.51); Absolute Neutrophil Count 3.2 X10^3/uL (2.0-7.7); Basophil# 0.01 X10^3/uL; Basophil% 0.2 % (0-1); Eosinophils% 4.3 % (0-5); Hematocrit 32.6 % (40-54); Hemoglobin 11.4 g/dl (13.0-16.5); Lymphocyte # 0.74 X10^3/ul (4.0); Lymphocyte % 15.9 % (19-41); Mean Corpuscular Hgb 33.4 pg (27.0-32.0); Mean Corpuscular Volume 95.6 fL (80-94); Mean Platelet Vol. 8.6 fl (6.2-12.0); Monocyte# 0.49 X10^3/uL; Monocyte% 10.6 % (0-10); Neutrophil # 3.19 X10^3/uL (2.7-7.7); Neutrophil % 68.8 % (47-70); Platelet Count 136 K/mm3 (150-450); RBC Distribution Width CV 15.8 % (11.6-14.6); Red Blood Count 3.41 M/mm3 (4.6-6.2); White Blood Count 4.6 K/mm3 (4.4-11.0)
[2018-01-09 08:30] LABS: POSITIVE COUNT NO; POSITIVE DIFFERENTIAL NO; POSITIVE MORPHOLOGY NO
--- NOTE | 2018-01-09 08:30 | NURSING ---
Addendum entered by Taylor Welch 01/09/18 08:34: called yesterday 01/08 at 1826 and tarun Hammer RN gave updated vitals- no bed available at that time. Original Note: called at this time- requested recent vitals and to know if there was a change in status. Notified that no bed is available at this time but that they will call again when they have one available.
[2018-01-09 08:45] LABS: BUN 24 mg/dL (7-18); Estimated Creatinine Clearance 57.85 ml/min; Glucose 137 mg/dL (74-106)
[2018-01-09 08:46] LABS: ALB/GLOB Ratio 0.7 RATIO (0.9-2.4); AST(SGOT) 47 U/L (15-37); Alanine Aminotransfer ALT/SGPT 37 U/L (16-61); Alkaline Phosphatase 138 U/L (45-117); Anion Gap 10 (5-15); BUN/Creat Ratio 14.1 RATIO (10-20); Calcium,Total 9.5 mg/dL (8.5-10.1); Chloride 101 mmol/L (98-107); EST Glomerular Filtration Rate 47 mL/min (>60); Est Glom Filt Rate - Afr Amer 57 mL/min (>60); Globulin 4.3 g/dL (2.2-4.2); Potassium 3.9 mmol/L (3.5-5.1); Protein, Total 7.3 g/dL (6.4-8.2); Sodium Level 136 mmol/L (136-145)
--- NOTE | 2018-01-09 09:14 | PCM.PN.SRG ---
Patient Problems: Active and Suspected Problems (Last Reviewed 11/06/17 @ 09:37 by Ramandeep Rodgers) Cholelithiasis (Acute) Subjective: Patient rates his pain a 2 or 3 out of 10 this morning. No nausea or vomiting. - Physical Exam General: Alert, Oriented x3 Lungs: Normal air movement Abdomen: Soft, Non-Distended, Tender - Right upper quadrant tenderness Vital Signs Temp Pulse Resp BP Pulse Ox 98.6 F 94 18 117/70 98 01/09/18 03:32 01/09/18 03:42 01/09/18 03:32 01/09/18 03:32 01/09/18 03:32 Oxygen Delivery Method Room Air Weight: 442 lb 14.539 oz Body Mass Index (BMI) 63.5 Intake and Output for Last 24 Hours 01/07/18 01/08/18 01/09/18 23:59 23:59 23:59 Intake Total 928 / 928 2692 / 2692 1280 / 1280 Output Total 675 / 675 1600 / 1600 450 / 450 Balance 253 / 253 1092 / 1092 830 / 830 Laboratory Tests Past 24 Hrs 01/09/18 01/09/18 08:13 08:13 WBC 4.6 RBC 3.41 L Hgb 11.4 L Hct 32.6 L MCV 95.6 H MCH 33.4 H MCHC 35.0 RDW 15.8 H RDW Differential 52.0 H Plt Count 136 L MPV 8.6 Immature Gran % (Auto) 0.200 Neut % (Auto) 68.8 Lymph % (Auto) 15.9 L [place] % (Auto) 10.6 H Eos % (Auto) 4.3 Baso % (Auto) 0.2 Absolute Neuts (auto) 3.2 Absolute Lymphs (auto) 0.74 L Total Counted Not Reportable Sodium 136 Potassium 3.9 Chloride 101 Carbon Dioxide 25.0 Anion Gap 10 BUN 24 H Creatinine 1.70 H Estim Creat Clear Calc 57.85 Est GFR (MDRD) Af Amer 57 L Est GFR (MDRD) Non-Af 47 L BUN/Creatinine Ratio 14.1 Glucose 137 H Calcium 9.5 Total Bilirubin 2.20 H AST 47 H ALT 37 Alkaline Phosphatase 138 H Total Protein 7.3 Albumin 3.0 L Globulin 4.3 H Albumin/Globulin Ratio 0.7 L POC Glucose 01/09/18 01/09/18 01/08/18 06:16 00:17 21:53 POC Glucose 138 H 165 H 197 H 01/08/18 01/08/18 18:00 10:53 POC Glucose 194 H 218 H Medical Necessity - Tobacco Use Smoking Status: Former smoker Tobacco Use: Cigarettes Assessment/Plan All Active Problems (Last Reviewed 11/06/17 @ 09:37 by Ramandeep Rodgers) Cholelithiasis (Acute) Peripheral arterial disease (Acute) 42-year-old male with cholecystitis and 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 The patient's MRI shows compression of the common bile duct and his LFTs remain elevated. I recommended transfer yesterday to [facility]. Awaiting a bed. Dennis Molina MD Pager: [facility] [address] [place] [address], [address] [place] [address] Office:
[2018-01-09] MEDS: Metoprolol Tartrate 50 MG Tablet PO ×2 (09:41→21:25)
[2018-01-09 12:25] LABS: Bedside Glucose 145 mg/dL (70-110)
--- NOTE | 2018-01-09 12:47 | NURSING ---
called for update on bed status. Transfer line stated that their hospital is very busy and that it could be tomorrow 01/10 until they have a bed available. Dr. Tracy Vazquez RN will update patient.
--- NOTE | 2018-01-09 13:14 | NURSING ---
Tuan from transfer center called at this time requesting updated vitals and states he does not currently have a bed.
--- NOTE | 2018-01-09 13:51 | PCM.PN.HOSP ---
Patient Problems: Active and Suspected Problems (Last Reviewed 11/06/17 @ 09:37 by Ramandeep Rodgers) Cholelithiasis (Acute) Subjective: Waiting on a bed in . No acute events overnight. Pain rates his pain as 2/10. 10 point ROS is essentially negative Objective: General: Alert, Oriented x3, Cooperative, No apparent distress, - - Morbidly obese HEENT: Atraumatic, PERRLA, EOMI, Normocephalic Oral: Moist Mucosa Neck: Supple, No JVD, Negative Carotid Bruits Lungs: Clear to auscultation, Normal air movement Cardiovascular: Regular rate, Regular Rhythm, Normal S1, Normal S2, No murmurs Abdomen: Bowel Sounds Present, Soft, Non Tender, Non-Distended, No Hepato-splenomegaly, Obese, Tender - Over the epigastric and right upper quadrant Extremities: No edema Skin: No rashes, No breakdown Musculoskeletal: No Tenderness to Palpation of Joints or Extremities Lymphatic: No Cervical, Supraclavicular, or Inguinal Adenopathy Neurological: Cranial nerves II-XII grossly intact, Neuro grossly intact Psych/Mental Status: Normal Affect, Appropriate Vitals/I&O's: Vital Signs Temp Pulse Resp BP Pulse Ox 98.5 F 96 16 113/57 L 93 01/09/18 09:30 01/09/18 09:41 01/09/18 09:30 01/09/18 09:30 01/09/18 11:02 Oxygen Delivery Method Room Air Weight: 200.9 kg Body Mass Index (BMI) 63.5 Intake and Output for Last 24 Hours 01/07/18 01/08/18 01/09/18 23:59 23:59 23:59 Intake Total 928 / 928 2692 / 2692 1280 / 1280 Output Total 675 / 675 1600 / 1600 450 / 450 Balance 253 / 253 1092 / 1092 830 / 830 Laboratory Results 01/08/18 18:00: POC Glucose 194 H 01/08/18 21:53: POC Glucose 197 H 01/09/18 00:17: POC Glucose 165 H 01/09/18 06:16: POC Glucose 138 H 01/09/18 08:13: WBC 4.6, RBC 3.41 L, Hgb 11.4 L, Hct 32.6 L, MCV 95.6 H, MCH 33.4 H, MCHC 35.0, RDW 15.8 H, RDW Differential 52.0 H, Plt Count 136 L, MPV 8.6, Immature Gran % (Auto) 0.200, Neut % (Auto) 68.8, Lymph % (Auto) 15.9 L, [place] % (Auto) 10.6 H, Eos % (Auto) 4.3, Baso % (Auto) 0.2, Absolute Neuts (auto) 3.2, Absolute Lymphs (auto) 0.74 L, Total Counted Not Reportable 01/09/18 08:13: Sodium 136, Potassium 3.9, Chloride 101, Carbon Dioxide 25.0, Anion Gap 10, BUN 24 H, Creatinine 1.70 H, Estim Creat Clear Calc 57.85, Est GFR (MDRD) Af Amer 57 L, Est GFR (MDRD) Non-Af 47 L, BUN/Creatinine Ratio 14.1, Glucose 137 H, Calcium 9.5, Total Bilirubin 2.20 H, AST 47 H, ALT 37, Alkaline Phosphatase 138 H, Total Protein 7.3, Albumin 3.0 L, Globulin 4.3 H, Albumin/Globulin Ratio 0.7 L 01/09/18 12:18: POC Glucose 145 H Current Medications Acetaminophen (Tylenol) 650 mg PO Q6H PRN PRN PRN Reason: Non-cardiac pain (mod-severe) Aspirin (Aspirin, Baby) 81 mg PO DAILY@0800 [facility] Last Admin: 01/09/18 09:41 Dose: Not Given Atorvastatin Calcium (Lipitor) 5 mg PO QHS [facility] Last Admin: 01/08/18 21:49 Dose: 5 mg Hydralazine HCl (Apresoline Iv) 10 mg IV Q4H PRN PRN PRN Reason: SBP > 160 Hydromorphone HCl (Dilaudid Inj) 1 mg IV Q3H PRN PRN PRN Reason: SEVERE PAIN (6-12/20) Last Admin: 01/07/18 16:13 Dose: 1 mg Pantoprazole Sodium 40 mg/ (Sodium Chloride) 110 mls @ 330 mls/hr IV Q12 [facility] Last Admin: 01/09/18 10:36 Dose: 330 mls/hr Piperacillin Sod/Tazobactam Sod (Zosyn) 3.375 gm in 50 mls @ 12.5 mls/hr IV Q8 [facility] Last Admin: 01/09/18 06:18 Dose: 12.5 mls/hr Sodium Chloride () 1,000 mls @ 100 mls/hr IV .Q10H [facility] Last Admin: 01/09/18 03:33 Dose: 100 mls/hr Insulin Human Lispro (Humalog Kwikpen (Bkc)) 0 unit SC Q6 [facility]; Protocol Last Admin: 01/09/18 12:37 Dose: Not Given Insulin Human NPH (Humulin N (Bkc)) 37 units SC BID [facility] Last Admin: 01/09/18 09:40 Dose: Not Given Levothyroxine Sodium (Synthroid) 100 mcg PO DAILY@0600 [facility] Last Admin: 01/09/18 06:13 Dose: 100 mcg Lisinopril (Zestril) 20 mg PO DAILY [facility] Last Admin: 01/09/18 09:43 Dose: Not Given Magnesium Hydroxide (Milk Of Magnesia) 30 ml PO DAILY PRN PRN PRN Reason: Constipation Metoprolol Tartrate (Lopressor (Beta Helen)) 50 mg PO BID [facility] Last Admin: 01/09/18 09:41 Dose: 50 mg Ondansetron HCl (Zofran) 4 mg IV Q8H PRN PRN PRN Reason: NAUSEA Oxycodone HCl (Oxyir) 5 - 10 mg PO Q4H PRN PRN PRN Reason: SEVERE PAIN (6-10/10) Promethazine HCl (Phenergan) 12.5 mg IV Q6H PRN PRN PRN Reason: NAUSEA/VOMITING Sodium Chloride () 5 - 30 ml IV UD PRN PRN Reason: SALINE FLUSH Last Admin: 01/08/18 21:37 Dose: 10 ml Medical Necessity - Tobacco Use Smoking Status: Former smoker Tobacco Use: Cigarettes Assessment/Plan All Active Problems (Last Reviewed 11/06/17 @ 09:37 by Ramandeep Rodgers) Cholelithiasis (Acute) Peripheral arterial disease (Acute) 42-year-old male, super morbidly obese, type II DM, hypertension, hyperlipidemia, hypothyroidism who comes in with complaints of abdominal pain. He was seen earlier in the emergency department and gallstones were found on CT. He presented again with abdominal pain that comes and goes. 1. 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 2. Elevated LFTs, persistent elevation of cholestatic enzymes, likely related to gallstones 3. Type II DM, HbA1c 6.9, blood sugars are controlled, off metformin, on NPH insulin, continue with accucheks and ISS pending transfer. 4. Elevated creatinine secondary to dehydration/being kept n.p.o., on IVF, repeat labs are better 5. Hypertension, controlled with previous of elevated blood pressure likely related to pain, continue on lisinopril, metoprolol, pain control, continue to monitor blood pressures 6. Hyperlipidemia, on statin 7. Hypothyroidism, on levothyroxine 8. SONIA on CPAP 9. History of leukopenia, thrombocytopenia, secondary to bone marrow suppression following viral infection, cell lines appear to have improved, following remotely with oncology 10. Super morbid obesity, BMI 63.6, diet exercise is recommended 11. DVT prophylaxis with SCDs for now, pending surgery Code Visit Inpatient E&M: 25383 Subs Hosp L2
--- NOTE | 2018-01-09 14:04 | PN_ITS ---
Patient Problems: Active and Suspected Problems (Last Reviewed 11/06/17 @ 09:37 by Ramandeep Rodgers) Cholelithiasis (Acute) Subjective: Waiting on a bed in . No acute events overnight. Pain rates his pain as 2/10. 10 point ROS is essentially negative Objective: General: Alert, Oriented x3, Cooperative, No apparent distress, - - Morbidly obese HEENT: Atraumatic, PERRLA, EOMI, Normocephalic Oral: Moist Mucosa Neck: Supple, No JVD, Negative Carotid Bruits Lungs: Clear to auscultation, Normal air movement Cardiovascular: Regular rate, Regular Rhythm, Normal S1, Normal S2, No murmurs Abdomen: Bowel Sounds Present, Soft, Non Tender, Non-Distended, No Hepato- splenomegaly, Obese, Tender - Over the epigastric and right upper quadrant Extremities: No edema Skin: No rashes, No breakdown Musculoskeletal: No Tenderness to Palpation of Joints or Extremities Lymphatic: No Cervical, Supraclavicular, or Inguinal Adenopathy Neurological: Cranial nerves II-XII grossly intact, Neuro grossly intact Psych/Mental Status: Normal Affect, Appropriate Vitals/I&O's: Vital Signs Temp Pulse Resp BP Pulse Ox 98.5 F 96 16 113/57 L 93 01/09/18 09:30 01/09/18 09:41 01/09/18 09:30 01/09/18 09:30 01/09/18 11:02 Oxygen Delivery Method Room Air Weight: 200.9 kg Body Mass Index (BMI) 63.5 Intake and Output for Last 24 Hours 01/07/18 01/08/18 01/09/18 23:59 23:59 23:59 Intake Total 928 / 928 2692 / 2692 1280 / 1280 Output Total 675 / 675 1600 / 1600 450 / 450 Balance 253 / 253 1092 / 1092 830 / 830 Laboratory Results 01/08/18 18:00: POC Glucose 194 H 01/08/18 21:53: POC Glucose 197 H 01/09/18 00:17: POC Glucose 165 H 01/09/18 06:16: POC Glucose 138 H 01/09/18 08:13: WBC 4.6, RBC 3.41 L, Hgb 11.4 L, Hct 32.6 L, MCV 95.6 H, MCH 33.4 H, MCHC 35.0, RDW 15.8 H, RDW Differential 52.0 H, Plt Count 136 L, MPV 8.6, Immature Gran % (Auto) 0.200, Neut % (Auto) 68.8, Lymph % (Auto) 15.9 L, [place] % (Auto) 10.6 H, Eos % (Auto) 4.3, Baso % (Auto) 0.2, Absolute Neuts (auto) 3.2, Absolute Lymphs (auto) 0.74 L, Total Counted Not Reportable 01/09/18 08:13: Sodium 136, Potassium 3.9, Chloride 101, Carbon Dioxide 25.0, Anion Gap 10, BUN 24 H, Creatinine 1.70 H, Estim Creat Clear Calc 57.85, Est GFR (MDRD) Af Amer 57 L, Est GFR (MDRD) Non-Af 47 L, BUN/Creatinine Ratio 14.1, Glucose 137 H, Calcium 9.5, Total Bilirubin 2.20 H, AST 47 H, ALT 37, Alkaline Phosphatase 138 H, Total Protein 7.3, Albumin 3.0 L, Globulin 4.3 H, Albumin/Globulin Ratio 0.7 L 01/09/18 12:18: POC Glucose 145 H Current Medications Acetaminophen (Tylenol) 650 mg PO Q6H PRN PRN PRN Reason: Non-cardiac pain (mod-severe) Aspirin (Aspirin, Baby) 81 mg PO DAILY@0800 [facility] Last Admin: 01/09/18 09:41 Dose: Not Given Atorvastatin Calcium (Lipitor) 5 mg PO QHS [facility] Last Admin: 01/08/18 21:49 Dose: 5 mg Hydralazine HCl (Apresoline Iv) 10 mg IV Q4H PRN PRN PRN Reason: SBP > 160 Hydromorphone HCl (Dilaudid Inj) 1 mg IV Q3H PRN PRN PRN Reason: SEVERE PAIN (6-12/20) Last Admin: 01/07/18 16:13 Dose: 1 mg Pantoprazole Sodium 40 mg/ (Sodium Chloride) 110 mls @ 330 mls/hr IV Q12 [facility] Last Admin: 01/09/18 10:36 Dose: 330 mls/hr Piperacillin Sod/Tazobactam Sod (Zosyn) 3.375 gm in 50 mls @ 12.5 mls/hr IV Q8 [facility] Last Admin: 01/09/18 06:18 Dose: 12.5 mls/hr Sodium Chloride () 1,000 mls @ 100 mls/hr IV .Q10H [facility] Last Admin: 01/09/18 03:33 Dose: 100 mls/hr Insulin Human Lispro (Humalog Kwikpen (Bkc)) 0 unit SC Q6 [facility]; Protocol Last Admin: 01/09/18 12:37 Dose: Not Given Insulin Human NPH (Humulin N (Bkc)) 37 units SC BID [facility] Last Admin: 01/09/18 09:40 Dose: Not Given Levothyroxine Sodium (Synthroid) 100 mcg PO DAILY@0600 [facility] Last Admin: 01/09/18 06:13 Dose: 100 mcg Lisinopril (Zestril) 20 mg PO DAILY [facility] Last Admin: 01/09/18 09:43 Dose: Not Given Magnesium Hydroxide (Milk Of Magnesia) 30 ml PO DAILY PRN PRN PRN Reason: Constipation Metoprolol Tartrate (Lopressor (Beta Helen)) 50 mg PO BID [facility] Last Admin: 01/09/18 09:41 Dose: 50 mg Ondansetron HCl (Zofran) 4 mg IV Q8H PRN PRN PRN Reason: NAUSEA Oxycodone HCl (Oxyir) 5 - 10 mg PO Q4H PRN PRN PRN Reason: SEVERE PAIN (6-10/10) Promethazine HCl (Phenergan) 12.5 mg IV Q6H PRN PRN PRN Reason: NAUSEA/VOMITING Sodium Chloride () 5 - 30 ml IV UD PRN PRN Reason: SALINE FLUSH Last Admin: 01/08/18 21:37 Dose: 10 ml Medical Necessity - Tobacco Use Smoking Status: Former smoker Tobacco Use: Cigarettes Assessment/Plan All Active Problems (Last Reviewed 11/06/17 @ 09:37 by Ramandeep Rodgers) Cholelithiasis (Acute) Peripheral arterial disease (Acute) 42-year-old male, super morbidly obese, type II DM, hypertension, hyperlipidemi a, hypothyroidism who comes in with complaints of abdominal pain. He was seen earlier in the emergency department and gallstones were found on CT. He presented again with abdominal pain that comes and goes. 1. 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 2. Elevated LFTs, persistent elevation of cholestatic enzymes, likely related to gallstones 3. Type II DM, HbA1c 6.9, blood sugars are controlled, off metformin, on NPH insulin, continue with accucheks and ISS pending transfer. 4. Elevated creatinine secondary to dehydration/being kept n.p.o., on IVF, repeat labs are better 5. Hypertension, controlled with previous of elevated blood pressure likely related to pain, continue on lisinopril, metoprolol, pain control, continue to monitor blood pressures 6. Hyperlipidemia, on statin 7. Hypothyroidism, on levothyroxine 8. SONIA on CPAP 9. History of leukopenia, thrombocytopenia, secondary to bone marrow suppression following viral infection, cell lines appear to have improved, following remotely with oncology 10. Super morbid obesity, BMI 63.6, diet exercise is recommended 11. DVT prophylaxis with SCDs for now, pending surgery Code Visit Inpatient E&M: 35348 Subs Hosp L2
[2018-01-09] MEDS: 0.9% NaCl Peripheral Flush Adult/Peds IV (14:18)
[2018-01-09 17:51] LABS: Bedside Glucose 128 mg/dL (70-110)
[2018-01-09] MEDS: Atorvastatin Calcium 10 MG Tablet 5 MG PO (21:25)
[2018-01-09 21:31] LABS: Bedside Glucose 135 mg/dL (70-110)
--- NOTE | 2018-01-09 22:46 | NURSING ---
[facility] called to get update on pt/vitals. still no bed at this time.
[2018-01-09 23:36] LABS: Bedside Glucose 120 mg/dL (70-110)
[2018-01-10] MEDS: Levothyroxine 100 MCG Tablet PO (05:30)
[2018-01-10] MEDS: Piperacil/Tazobactam 3.375 GM/50 ML ML IV (05:30)
[2018-01-10 05:31] VITALS: BP 104/65; PULSE 89; RESP 16; TEMP 36.9; O2SAT 95
[2018-01-10 05:36] LABS: Bedside Glucose 134 mg/dL (70-110)
--- NOTE | 2018-01-10 05:36 | NURSING ---
[facility] called to get update on pt/vitals,still waiting for bed.
[2018-01-10 06:52] VITALS: O2SAT 96
[2018-01-10 08:30] VITALS: BP 133/78; PULSE 88; RESP 18; TEMP 36.9; O2SAT 97
[2018-01-10 08:31] VITALS: PULSE 94
[2018-01-10] MEDS: Metoprolol Tartrate 50 MG Tablet PO (08:31)
[2018-01-10] MEDS: Lisinopril 20 MG Tablet PO (08:31)
[2018-01-10 14:43] LABS: Vitamin D 1,25-Dihydroxy 49.4 pg/mL (19.9-79.3)
== END 2018-01-10 09:40 | disposition short-term general hospital (02) ==
LOC: ED 22:49 → MS3 01-07 01:29
PROVIDERS: Family Medicine; Internal Medicine; Admitting Provider Surgery; Emergency Provider Emergency Medicine; Visit Provider Surgery
DX: K80.20 Calculus of gallbladder without cholecystitis without obstruction (principal); I10 Essential (primary) hypertension; D69.6 Thrombocytopenia, unspecified; E66.01 Morbid (severe) obesity due to excess calories; Z68.44 Body mass index [BMI] 60.0-69.9, adult; E03.9 Hypothyroidism, unspecified; R60.0 Localized edema; K75.81 Nonalcoholic steatohepatitis (NASH); Z87.891 Personal history of nicotine dependence; Z79.4 Long term (current) use of insulin; I12.9 Hypertensive chronic kidney disease with stage 1 through stage 4 chronic kidney disease, or unspecified chronic kidney disease; E11.22 Type 2 diabetes mellitus with diabetic chronic kidney disease; N18.3 Chronic kidney disease, stage 3 (moderate); E78.5 Hyperlipidemia, unspecified
CPT/HCPCS: 36415; 74176; 74181; 80048; 80053; 80076; 82652; 82962; 83036; 83690; 83735; 84484; 85025; 93005; 96360; 96361; 99283; 99285; J7030; J7040; A4216; J2405

== ENCOUNTER 2018-04-16 10:05 | Inpatient (IN) | payer MEDICAID, SELFPAY ==
[2018-04-16] VITALS (15 sets, daily range): BP systolic 91–141; BP diastolic 38–80; PULSE 87–141; RESP 17–18; TEMP 36.2–36.9; O2SAT 93–97; BMI 59.2; BMI 59.6; BMI 59.1
--- NOTE | 2018-04-16 10:24 | CT_ITS ---
STUDY: CT PELVIS WITHOUT CONTRAST REASON FOR EXAM: Male, 42 years old. Rectal abscess. RADIATION DOSAGE (If Supplied By Facility): CTDIvol = ( 28.20 ) mGy, DLP = ( 1547.71 ) mGycm TECHNIQUE: Transaxial imaging of the pelvis was performed with oral contrast, and without intravenous administration of contrast material. Individualized dose optimization techniques were used for this CT. COMPARISON: Comparison is made with prior study dated January 06, 2018. FINDINGS: A tiny calcification is seen in the lower pole calyx of the left kidney. Normal urinary bladder. Normal visualized small intestine. There are multiple colonic diverticula of the sigmoid colon consistent with chronic diverticulosis. There is no pelvic fluid. There is no pelvic mass lesion or lymphadenopathy. Normal visualized pelvic arteries. There is evidence of skin thickening as well as increased markings within the subcutaneous fat along the medial aspect of the upper and mid thigh suggestive of cellulitis. A small amount of air collection is seen just caudad to the perineum. CT/Pelvis without IV Contrast IMPRESSION: Findings suggestive saline is along the upper mid medial posterior buttock. A small amount of gas is seen within the midline just catheter to the perineum. No focal abscess is seen. Electronically Signed: Jt Anderson MD at 12:40 EST , Service support ,
--- NOTE | 2018-04-16 10:26 | ED.VISSUMM ---
- ER Visit Summary Date of Service: 04/16/18 Chief Complaint: Rectal pain History of Present Illness: The patient is a 42 M with a rectal abscess that self drained starting about 3 days ago. He still has pain in the region. He has a complicated medical history with recent gallbladder surgery and an open wound, he is morbidly obese with diabetes hypercholesterolemia and hypertension. He denies any fever or chills. He has had some cough recently. This is improving. Physical Examination: Not appear in acute distress. He does not appear toxic. BMI 59 Moist mucous membranes, no obvious facial deformity No C-spine tenderness supple neck. Regular rate and rhythm without any obvious murmurs Clear lungs bilaterally speaking in full sentences without any obvious respiratory distress Abdomen soft with right upper quadrant tenderness and an open wound without any signs of infection Rectal exam shows a 3 cm open wound, no obvious induration or fluctuance seen. Moves all extremities without any difficulty or pain. Skin does not show any obvious rashes or lesions, no trauma. Alert oriented ?3 with no gross focal deficit Emergency Department Course and Treatment: CT does not show an obvious abscess, cellulitis, it does mention some air but this is secondary to tracking. White count is 8.1. He is found to have renal insufficiency with a creatinine 3.19, this is significantly elevated from his prior. Calcium is 13.6. Given his diabetes, morbid obesity and the area involved, I believe the patient is admitted for IV antibiotics and started IV Zosyn. Disposition: Admit in stable condition Impression: Buttock cellulitis Self draining abscess This note was generated with [employer] dictation software. It may contain incorrect words, spelling, and punctuation that were not noted in review of the chart prior to signing ED Disposition - Plan for ED Patient: Referrals: Alberto Riley,Linnette Pierre [Primary Care Provider] -
--- NOTE | 2018-04-16 10:29 | ED.DCSUM_ITS ---
- ER Visit Summary Date of Service: 04/16/18 Chief Complaint: Rectal pain History of Present Illness: The patient is a 42 M with a rectal abscess that self drained starting about 3 days ago. He still has pain in the region. He has a complicated medical history with recent gallbladder surgery and an open w ound, he is morbidly obese with diabetes hypercholesterolemia and hypertension. He denies any fever or chills. He has had some cough recently. This is improving. Physical Examination: Not appear in acute distress. He does not appear toxic. BMI 59 Moist mucous membranes, no obvious facial deformity No C-spine tenderness supple neck. Regular rate and rhythm without any obvious murmurs Clear lungs bilaterally speaking in full sentences without any obvious respiratory distress Abdomen soft with right upper quadrant tenderness and an open wound without any signs of infection Rectal exam shows a 3 cm open wound, no obvious induration or fluctuance seen. Moves all extremities without any difficulty or pain. Skin does not show any obvious rashes or lesions, no trauma. Alert oriented ?3 with no gross focal deficit Emergency Department Course and Treatment: CT does not show an obvious abscess, cellulitis, it does mention some air but this is secondary to tracking. White count is 8.1. He is found to have renal insufficiency with a creatinine 3.19, this is significantly elevated from his prior. Calcium is 13.6. Given his diabetes, morbid obesity and the area involved, I believe the patient is admitted for IV antibiotics and started IV Zosyn. Disposition: Admit in stable condition Impression: Buttock cellulitis Self draining abscess This note was generated with [employer] dictation software. It may contain incorrect words, spelling, and punctuation that were not noted in review of the chart prior to signing ED Disposition - Plan for ED Patient: Referrals: Linnette Xavier [Primary Care Provider] -
[2018-04-16 11:16] LABS: Absolute Lymphocyte Count 0.74 X10^3/ul (0.83-4.51); Absolute Neutrophil Count 6.6 X10^3/uL (2.0-7.7); Basophil# 0.01 X10^3/uL; Basophil% 0.1 % (0-1); Eosinophil# 0.12 X10^3/uL; Eosinophils% 1.5 % (0-5); Hematocrit 33.9 % (40-54); Hemoglobin 11.7 g/dl (13.0-16.5); Lymphocyte # 0.74 X10^3/ul (4.0); Lymphocyte % 9.2 % (19-41); Mean Corp Hgb Conc 34.5 g/gl (32-36); Mean Corpuscular Hgb 29.7 pg (27.0-32.0); Mean Platelet Vol. 8.7 fl (6.2-12.0); Monocyte# 0.55 X10^3/uL; Monocyte% 6.8 % (0-10); Neutrophil # 6.59 X10^3/uL (2.7-7.7); Neutrophil % 81.5 % (47-70); Platelet Count 236 K/mm3 (150-450); RBC Distribution Width CV 13.5 % (11.6-14.6); RBC Distribution Width SD 41.7 fl (35.1-43.9); Red Blood Count 3.94 M/mm3 (4.6-6.2); White Blood Count 8.1 K/mm3 (4.4-11.0)
[2018-04-16 11:18] LABS: POSITIVE COUNT NO; POSITIVE DIFFERENTIAL NO; POSITIVE MORPHOLOGY NO
[2018-04-16 11:33] LABS: ALB/GLOB Ratio 0.5 RATIO (0.9-2.4); AST(SGOT) 62 U/L (15-37); Alanine Aminotransfer ALT/SGPT 46 U/L (16-61); Alkaline Phosphatase 179 U/L (45-117); Anion Gap 8 (5-15); BUN 38 mg/dL (7-18); BUN/Creat Ratio 11.9 RATIO (10-20); Calcium,Total 13.6 mg/dL (8.5-10.1); Chloride 99 mmol/L (98-107); Creatinine, Serum 3.19 mg/dL (0.70-1.30); EST Glomerular Filtration Rate 23 mL/min (>60); Est Glom Filt Rate - Afr Amer 27 mL/min (>60); Estimated Creatinine Clearance 30.83 ml/min; Globulin 5.7 g/dL (2.2-4.2); Glucose 171 mg/dL (74-106); Potassium 3.4 mmol/L (3.5-5.1); Protein, Total 8.7 g/dL (6.4-8.2); Sodium Level 133 mmol/L (136-145)
--- NOTE | 2018-04-16 11:33 | ED.RN ---
CALCIUM 13.6 DR AWARE
--- NOTE | 2018-04-16 15:37 | NURSING ---
PCU HYPERCALCEMIA, CLARENCE PAINTSIL
--- NOTE | 2018-04-16 15:45 | CON.PCM_ITS ---
Problem List (1) Perianal abscess Status: Acute Reason for Consult Date of Consultation: 04/16/18 Reason for Consultation: Left perianal abscess History of Present Illness: The patient is a 42 year old M who presents with a 4 day history of drainage of a left perianal abscess. Patient stated he had a painful hard lump last Monday. He noted on the lump spontaneously ruptured with copious amounts of purulent drainage on the bed sheets. He noted the pain became less. In the meantime, patient is being evaluated by the wound center following an open cholecystectomy. Patient stated in [place] was not able to completely close the incision. He has been going to the wound center for packing changes. Patient noted on he had the nurse take a look at his bottom. Patient stated if it gets any worse to go to the ED. Patient noted the area continued to drain. He contacted the wound center today who recommended he proceed to the ED. He is a diabetic. Patient's mother has also noted the patient has been having diarrhea for the last 2-3 weeks. Patient was previously evaluated by Dr. Molina in December of last year for gallstone pancreatitis. 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 Patient had an open cholecystectomy on January 11. Pelvis CT scan demonstrated cellulitis of upper/mid thigh. Patient denies being on recent antibiotics. Past Medical History Past Medical History (Chronic Problems): Chronic Problems (Last Reviewed 11/06/17 @ 09:37 by Ramandeep Rodgers) Essential (primary) hypertension (Chronic) Steatohepatitis (Chronic) Hypothyroidism (Chronic) Type 2 diabetes mellitus without complications (Chronic) Morbid obesity (Chronic) Thrombocytopenia (Chronic) Leukopenia (Chronic) Bilateral lower extremity edema (Chronic) Medical History: Medical History (Last Reviewed 04/16/18 @ 16:19 by Ruth Grove PA-C) Diabetes E11.9 Hyperlipidemia E78.5 Thyroid disease E07.9 Vitamin D deficiency E55.9 Hypertension I10 Allergies wool Adverse Reaction (Severe, Verified 04/16/18 10:09) Hives Home Medications: Ambulatory Orders Medication Instructions Recorded Lisinopril [Zestril] 20 mg PO DAILY 03/30/15 Lovastatin [Mevacor] 20 mg PO QHS 03/30/15 Aspirin [Aspirin, Baby] 81 mg PO DAILY@0800 08/11/16 Ergocalciferol [Vitamin D] 50,000 unit PO BARROS 04/05/17 Insulin NPH Human Isophane 38 unit SQ BID 04/05/17 [Novolin N] Metoprolol Tartrate [Lopressor 50 mg PO BID 04/05/17 (Beta Helen)] Fish Oil/Dha/Epa [Fish Oil 1,200 1,200 mg PO BID 04/16/18 mg Fish Oil] Levothyroxine Sodium 100 mcg PO DAILY 04/16/18 Magnesium Oxide [Magnesium] 250 mg PO TIDCM 04/16/18 Metformin HCl 1,000 mg PO BID 04/16/18 Surgical History: Surgical History (Last Reviewed 04/16/18 @ 16:19 by Ruth Grove PA-C) History of tonsillectomy and adenoidectomy Z98.890 Surgical History: cholecystectomy - Open; January 11, tonsillectomy Psychiatric History: No pertinent psych hx Lives: With Family Smoking Status: Former smoker Tobacco Use: Cigarettes - *Family History Maternal Family History: Family History (Last Reviewed 11/06/17 @ 09:38 by Ramandeep Rodgers) Grandfather Family history of heart disease Family history of hypertension Mother Family history of high cholesterol Grandfather Family history of high cholesterol Aunt Family history of hypertension Other Family history of hypertension in mother History Items: - - Patient notes a maternal family history of hypertension and hyperlipidemia. Paternal Family History: Family History (Last Reviewed 11/06/17 @ 09:38 by Ramandeep Rodgers) Grandfather Family history of heart disease Family history of hypertension Mother Family history of high cholesterol Grandfather Family history of high cholesterol Aunt Family history of hypertension Other Family history of hypertension in mother History Items: - - Patient notes a paternal family history of heart disease, hypertension, hyperlipidemia and diabetes. Review of Systems Constitutional: Reports: Weight Change - lost 36 pounds since gallbladder removal. Denies: Fever HEENT: Denies: Head Aches, Sinus Congestion, Sinus Drainage Cardiovascular: Denies: Chest Pain, Palpitations Respiratory: Denies: Cough, Shortness of breath at rest, Sputum production Gastrointestinal: Reports: Diarrhea. Denies: Abdominal Pain, Hematochezia, Nausea, Melena, Vomiting Genitourinary: Denies: Dysuria Musculoskeletal: Denies: Joint Pain, Joint Tenderness Skin: Denies: Rash, Wounds Neurological: Denies: Numbness, Tingling, Focal weakness Psychiatric: Denies: Anxiety, Depression, Homicidal Ideations, Suicidal Ideations Hematologic/ Lymphatic: Denies: Easy Bruising, Easy Bleeding, Hx of blood clot, Hx of blood transfusion Patient Problems: Active and Suspected Problems (Last Reviewed 11/06/17 @ 09:37 by Ramandeep Rodgers) Perianal abscess (Acute) - Physical Exam General: Alert, Oriented x3, Cooperative, - - Morbidly obese HEENT: Atraumatic, PERRLA, EOMI, Normocephalic Neck: Supple, No JVD, Negative Carotid Bruits Lungs: Clear to auscultation, Normal air movement Cardiovascular: Regular rate, No murmurs Abdomen: Bowel Sounds Present, Soft, Non Tender, Non-Distended, Obese, - - RUQ incision with current dry gauze packing within the open wound. Extremities: No edema, Capillary Refill Less than 3 Seconds Skin: - - Left perianal abscess- open wound approximately 3-4 cm in max length. Copious amount of purulent material with external tissue/sac noted. Bleeding noted. Large amount of erythema noted. Musculoskeletal: No Tenderness to Palpation of Joints or Extremities Neurological: Neuro grossly intact Psych/Mental Status: Normal Affect, Appropriate Vital Signs Temp Pulse Resp BP Pulse Ox 98 F 87 18 141/56 H 96 04/16/18 13:20 04/16/18 13:20 04/16/18 13:20 04/16/18 15:03 04/16/18 13:20 Oxygen Delivery Method Room Air Weight: 413 lb Body Mass Index (BMI) 59.2 Laboratory Tests Past 24 Hrs 04/16/18 04/16/18 10:55 10:55 WBC 8.1 RBC 3.94 L Hgb 11.7 L Hct 33.9 L MCV 86.0 MCH 29.7 MCHC 34.5 RDW 13.5 RDW Differential 41.7 Plt Count 236 MPV 8.7 Immature Gran % (Auto) 0.900 Neut % (Auto) 81.5 H Lymph % (Auto) 9.2 L [place] % (Auto) 6.8 Eos % (Auto) 1.5 Baso % (Auto) 0.1 Absolute Neuts (auto) 6.6 Absolute Lymphs (auto) 0.74 L Total Counted Not Reportable Sodium 133 L Potassium 3.4 L Chloride 99 Carbon Dioxide 26.0 Anion Gap 8 BUN 38 H Creatinine 3.19 H Estim Creat Clear Calc 30.83 Est GFR (MDRD) Af Amer 27 L Est GFR (MDRD) Non-Af 23 L BUN/Creatinine Ratio 11.9 Glucose 171 H Calcium 13.6 H* Total Bilirubin 0.80 AST 62 H ALT 46 Alkaline Phosphatase 179 H Total Protein 8.7 H Albumin 3.0 L Globulin 5.7 H Albumin/Globulin Ratio 0.5 L Assessment/Plan All Active Problems (Last Reviewed 11/06/17 @ 09:37 by Ramandeep Rodgers) Cholelithiasis (Acute) Perianal abscess (Acute) Peripheral arterial disease (Acute) I have been consulted in conjunction with Dr. Molina. Impression: Spontaneous rupture of left perianal abscess with associated cellulitis Plan: I have discussed this patient with Dr. Molina through an OR nurse. Patient may need further excision and debridement of the area or at least and exam under anesthesia. Patient would benefit from admission with IV antibiotics per medicine. I have explained to the patient and his mother that he may require surgical intervention. Dr. Molina will independently evaluate this patient. If surgical intervention is warranted, we will schedule the patient for tomorrow once OR permitting. Thank you for allowing us to participate in this patient's care. Code Visit Office Visits / Consults: [id number] IP Consult L3
--- NOTE | 2018-04-16 16:06 | PCM.HP.STD ---
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 This has started as a hard lump and spontaneously ruptured 5 days ago. He noticed more drainage, less pain. Patient denied any fever or chills or dizziness or palpitation. He has a history of recent open cholecystectomy, for which the incision was normal able to be completely closed, he has been following with the wound center. In the ED show temperature 98 F, heart rate is 133, blood pressure was 6% on room air, blood pressure 140/80, respiratory rate was 18. His admitting CBC D was significant for RBC count 8.1, hemoglobin 11.7, platelet count 236. Sodium was 133, potassium 3.4, chloride 99, BUN 38, creatinine 3.19, increased from 1.70 at the admission, calcium is 13.6 CT of pelvis showed skin thickening and increased marking within the subcutaneous fat with a small amount of air collection in the gluteal region. Patient was seen by general surgery who were consulted by the emergency department. Patient mach[place] d left gluteal perirectal abscess debridement and packing for left perirectal abscess with gangrene. Past Medical History Past Medical History (Chronic Problems): Chronic Problems (Last Reviewed 04/16/18 @ 16:19 by Ruth Grove PA-C) Essential (primary) hypertension (Chronic) Steatohepatitis (Chronic) Hypothyroidism (Chronic) Type 2 diabetes mellitus without complications (Chronic) Morbid obesity (Chronic) Peripheral arterial disease (Chronic) Thrombocytopenia (Chronic) Leukopenia (Chronic) Bilateral lower extremity edema (Chronic) Medical History: Medical History (Last Reviewed 04/16/18 @ 16:19 by Ruht Grove PA-C) Diabetes E11.9 Hyperlipidemia E78.5 Thyroid disease E07.9 Vitamin D deficiency E55.9 Hypertension I10 Allergies wool Adverse Reaction (Severe, Verified 04/16/18 10:09) Hives Home Medications: Ambulatory Orders Medication Instructions Recorded Lisinopril [Zestril] 20 mg PO DAILY 03/30/15 Lovastatin [Mevacor] 20 mg PO QHS 03/30/15 Aspirin [Aspirin, Baby] 81 mg PO DAILY@0800 08/11/16 Ergocalciferol [Vitamin D] 50,000 unit PO BARROS 04/05/17 Insulin NPH Human Isophane 38 unit SQ BID 04/05/17 [Novolin N] Metoprolol Tartrate [Lopressor 50 mg PO BID 04/05/17 (Beta Helen)] Fish Oil/Dha/Epa [Fish Oil 1,200 1,200 mg PO BID 04/16/18 mg Fish Oil] Levothyroxine Sodium 100 mcg PO DAILY 04/16/18 Magnesium Oxide [Magnesium] 250 mg PO TIDCM 04/16/18 Metformin HCl 1,000 mg PO BID 04/16/18 Surgical History: Surgical History (Last Reviewed 04/16/18 @ 16:19 by Ruth Grove PA-C) History of tonsillectomy and adenoidectomy Z98.890 Surgical History: cholecystectomy, tonsillectomy Psychiatric History: No pertinent psych hx Lives: With Family Smoking Status: Former smoker Tobacco Use: Cigarettes Alcohol: None Drugs: None - *Family History Maternal Family History: Family History (Last Reviewed 11/06/17 @ 09:38 by Ramandeep Rodgers) Grandfather Family history of heart disease Family history of hypertension Mother Family history of high cholesterol Grandfather Family history of high cholesterol Aunt Family history of hypertension Other Family history of hypertension in mother History Items: - - Patient notes a maternal family history of hypertension and hyperlipidemia. Paternal Family History: Family History (Last Reviewed 11/06/17 @ 09:38 by Ramandeep Rodgers) Grandfather Family history of heart disease Family history of hypertension Mother Family history of high cholesterol Grandfather Family history of high cholesterol Aunt Family history of hypertension Other Family history of hypertension in mother History Items: - - Patient notes a paternal family history of heart disease, hypertension, hyperlipidemia and diabetes. Review of Systems Constitutional: Reports: Weakness. Denies: Chills, Fever, Night Sweats, Malaise, Weight Change Eyes: Denies: Blurred vision, Cataracts, Conjunctivae Inflammation, Pain, Redness, Vision Change HEENT: Reports: Nasal Congestion. Denies: Difficulty Hearing, Difficulty Swallowing, Head Aches, Hearing Changes, Sinus Congestion, Sinus Drainage, Sore Throat Cardiovascular: Denies: Chest Pain, Claudication, Chest Pressure, Orthopnea, Palpitations, Paroxysmal Noc. Dyspnea Respiratory: Denies: Cough, Shortness of Breath, Shortness of breath at rest, Shortness of breath upon exertion, Sputum production Gastrointestinal: Denies: Abdominal Pain, Hematemesis, Hematochezia, Nausea, Vomiting Genitourinary: Denies: Dysuria, Frequency, Incontinence Musculoskeletal: Denies: Joint Pain, Joint stiffness, Joint swelling, Joint Tenderness Skin: Denies: Rash, Wounds Neurological: Denies: Difficulty swallowing, Focal weakness, Numbness, Tingling Psychiatric: Denies: Anxiety, Depression, Homicidal Ideations, Suicidal Ideations Hematologic/ Lymphatic: Denies: Easy Bruising, Easy Bleeding VTE Information - Inpt Only VTE Present on Admission: No VTE Pharm Prophylaxis ordered?: Yes Patient Problems: Active and Suspected Problems (Last Reviewed 04/16/18 @ 16:19 by Ruth Grove PA-C) Perianal abscess (Acute) Perirectal abscess (Acute) - Physical Exam General: Alert, Oriented x3, Cooperative, No apparent distress, - HEENT: Atraumatic, PERRLA, EOMI, Normocephalic Oral: Dry Mucosa Neck: Supple, No JVD, Negative Carotid Bruits Lungs: Clear to auscultation, Normal air movement Cardiovascular: Regular rate, Regular Rhythm, Normal S1, Normal S2, No murmurs Abdomen: Bowel Sounds Present, Soft, Non Tender, Non-Distended, No Hepato-splenomegaly, - - Packing seen in the left gluteal region Extremities: No edema Skin: No rashes, No breakdown Musculoskeletal: No Tenderness to Palpation of Joints or Extremities Neurological: Cranial nerves II-XII grossly intact Psych/Mental Status: Normal Affect, Appropriate Vital Signs Temp Pulse Resp BP Pulse Ox 98 F 87 18 141/56 H 96 04/16/18 13:20 04/16/18 13:20 04/16/18 13:20 04/16/18 15:03 04/16/18 13:20 Oxygen Delivery Method Room Air Weight: 187.334 kg Body Mass Index (BMI) 59.2 Laboratory Tests Past 24 Hrs 04/16/18 04/16/18 10:55 10:55 WBC 8.1 RBC 3.94 L Hgb 11.7 L Hct 33.9 L MCV 86.0 MCH 29.7 MCHC 34.5 RDW 13.5 RDW Differential 41.7 Plt Count 236 MPV 8.7 Immature Gran % (Auto) 0.900 Neut % (Auto) 81.5 H Lymph % (Auto) 9.2 L [place] % (Auto) 6.8 Eos % (Auto) 1.5 Baso % (Auto) 0.1 Absolute Neuts (auto) 6.6 Absolute Lymphs (auto) 0.74 L Total Counted Not Reportable Sodium 133 L Potassium 3.4 L Chloride 99 Carbon Dioxide 26.0 Anion Gap 8 BUN 38 H Creatinine 3.19 H Estim Creat Clear Calc 30.83 Est GFR (MDRD) Af Amer 27 L Est GFR (MDRD) Non-Af 23 L BUN/Creatinine Ratio 11.9 Glucose 171 H Calcium 13.6 H* Total Bilirubin 0.80 AST 62 H ALT 46 Alkaline Phosphatase 179 H Total Protein 8.7 H Albumin 3.0 L Globulin 5.7 H Albumin/Globulin Ratio 0.5 L Assessment/Plan All Active Problems (Last Reviewed 04/16/18 @ 16:19 by Ruth Grove PA-C) Cholelithiasis (Acute) Perianal abscess (Acute) Perirectal abscess (Acute) 42 year old M with past medical history of super morbid obesity, hypertension, hyperlipidemia, type II DM, hypothyroidism, history of fatty liver/ARGUETA who comes in with a 2-week history of a pimple-like lesion on the left gluteal region which spontaneously got burst 5 days ago. 1. Acute left perirectal abscess with gangrene, status post surgical debridement and packing Plan: Admit to PCU, monitor on telemetry, On IV Zosyn, will continue same continue per general surgery recommendations with wound recommendations 2. Hypercalcemia, unclear etiology, mild, calcium is 13.6 less likely multiple myeloma, patient is on chronic vitamin D supplementation Plan: Aggressive IV hydration, stop vitamin D supplementation, check vitamin D levels, monitor BMP 3. Hypokalemia, replaced, would also recheck magnesium levels as patient has history of magnesium deficiency 4. CLARENCE on CKD stage III, admitting creatinine 3.19, elevated from 1.70 at last admission, likely secondary to dehydration from hypercalcemia, likely multiple myeloma because of age of the patient Plan: Aggressive IV fluid hydration, nephrology consult, get a UA, check for urine and serum electrophoresis, urine electrolytes, monitor I's and O's closely 5. Type II DM, on metformin and insulin, will hold metformin, continue on home Lantus regimen, Accu-Cheks with insulin sliding scale, check HbA1c 6. Hypertension, continue metoprolol, continue to monitor vitals closely 7. Hypothyroidism, on levothyroxine 8. Elevated liver enzymes secondary to fatty liver/Argueta, labs in a.m. 9. DVT prophylaxis - Heparin SC Code Visit Inpatient E&M: 19098 Init Hosp L3
--- NOTE | 2018-04-16 17:00 | ABS_PTH ---
PATIENT: CHRISTA SILVERMAN LOC: MS2 U#:[id number] AGE/SX: 42/M ROOM: [facility] [place] RE04/16/[address]: Dr. Amilcar Serrano DO : 1975 BED: 1 DIS: 04/20/2018 SPEC #: [id number] RECD: 04/17/18 07:22 STATUS: CHIVO REBryan #: [id number] ARYAN: 04/16/18 17:[address]: Dennis Molina DEPT: SURGICAL PATHOLOGY RECD BY: Dion Chan ENTERED: 04/17/18 10:26 SP TYPE: Abscess OTHR DR: MD Dr. Gabrielle Jack MD Dr. Christine Lee, DO Dr. Eric Jopperi, DO [facility] Tissues: Perirectal tissue Procedures: PAS Fungus (control) Special Stain Group I Surgery Specimen Level IV AFB Stain (control) Comments: @ Ordering doctor for SUIII edited from to @ thalia ARORA at 04/17/18 [id number] @ Submitting doctor edited from to @ by MAITE at 04/17/18 1555 HEADER OPERATION: Perirectal abscess incision and drainage PRE-OP DIAGNOSIS: Perirectal abscess TISSUE SUBMITTED: Perirectal abscess tissue MICROSCOPIC DIAGNOSIS Perirectal abscess tissue, excision: Ulceration with associated acute and chronic inflammation and granulation. Negative for acid-fast bacilli and fungal organisms. See comment. AM:jared 04/18/18 COMMENT AFB and PASF stains with matched controls were used in the evaluation of this case. MICROSCOPIC DESCRIPTION Slides are reviewed. GROSS DESCRIPTION Received in fixative is one container labeled with the patient's name and designated perirectal abscess tissue. The specimen consists of six irregular fragment of glistening sweeney skin with attached reddish-sweeney soft tissue. The fragments range in size from 1 cm to 4 cm in greatest dimension and in aggregate measure 8 x 5 x 1 cm. Serial sections do not reveal mass lesions. Facility Maintenance Supervisor sections are submitted in one cassette. / AM:jared 04/17/18 TC:2 CPT: 91363, 39075 x2
[2018-04-16 17:26] LABS: Bedside Glucose 156 mg/dL (70-110)
--- NOTE | 2018-04-16 17:26 | US_ITS ---
STUDY: RENAL ULTRASOUND - COMPLETE REASON FOR EXAM: Male, 42 years old. Acute renal failure. TECHNIQUE: Ultrasound evaluation of the kidneys was performed with real-time and static handley-scale imaging. COMPARISON: None. FINDINGS: RIGHT KIDNEY: The right kidney is normal in size and location but the somewhat lobulated in contour. There is suboptimal visualization due to patient body habitus. The right kidney measures 12.1 x 6.1 x 5.6 cm. There is a normal cortex of the right kidney. The renal cortex measures 2 cm. There is a hypoechoic lesion in the upper pole of the right kidney measuring about 1.6 x 1.6 x 1.2 cm internal echoes. There are no right renal calculi. There is no right hydronephrosis. DISTAL RIGHT URETER: There is non-visualization of the distal right ureter. There is no demonstrated right ureterovesical junction calculus. There is no demonstrated right ureteral jet. LEFT KIDNEY: Normal location of the left kidney, which is normal in size. The left kidney measures 13.3 x 7.8 x 5 cm. There is a normal cortex of the left kidney. The renal cortex measures 1.8 cm. There is no left renal mass or cyst. There are no left renal calculi. There is no left hydronephrosis. DISTAL LEFT URETER: There is non-visualization of the distal left ureter. There is no demonstrated left ureterovesical junction calculus. There is no demonstrated left ureteral jet. BLADDER: The distended urinary bladder has a volume of 511 ml. There is a normal wall thickness of the distended urinary bladder. There is no demonstrated mass within the urinary bladder. There are no demonstrated bladder calculi. US/Kidney and Bladder IMPRESSION: Small complex lesion in the upper pole of the right kidney which could represent a complex cyst. Solid lesion is less likely. Follow-up CT scan of the kidneys with and without contrast is recommended otherwise follow-up examination in 3 months is recommended. Electronically Signed: Ankit Carlos MD at 22:23 EST Tel , Service support ,
--- NOTE | 2018-04-16 18:15 | PCM.OPRPT ---
Problem List (1) Perirectal abscess Status: Acute Report of Operation Date of Procedure: 04/16/18 Pre-Operative Diagnosis: Left perirectal abscess with gangrene Post-Operative Diagnosis: Same Surgery/Procedure Performed:: Left gluteal perirectal abscess debridement and packing Specimen's removed: Debrided tissue Description of Procedure: The patient was brought back to the operating room and general anesthesia was induced. The patient was placed in stirrups in lithotomy position and the perineal area was prepped with Betadine. Next after draping the left gluteal region was sharply debrided and tissue was sent for culture and pathology. The area was pulse lavaged and hemostasis was obtained with electrocautery. The defect tunneled laterally along the rectal area for about 3 cm. This area was all packed with a Betadine soaked Kerlix and the patient was taken to PACU in stable condition. The patient tolerated the procedure well.
[2018-04-16 18:32] LABS: Bedside Glucose 152 mg/dL (70-110)
[2018-04-16] MEDS: 0.9% Normal Saline 1,000 ML 150 ML IV ×2 (18:40→20:07)
[2018-04-16 19:47] LABS: Anion Gap 13 (5-15); BUN 39 mg/dL (7-18); BUN/Creat Ratio 12.8 RATIO (10-20); Chloride 100 mmol/L (98-107); Creatinine, Serum 3.04 mg/dL (0.70-1.30); EST Glomerular Filtration Rate 24 mL/min (>60); Est Glom Filt Rate - Afr Amer 29 mL/min (>60); Estimated Creatinine Clearance 32.35 ml/min; Glucose 162 mg/dL (74-106); Potassium 3.2 mmol/L (3.5-5.1); Sodium Level 136 mmol/L (136-145)
[2018-04-16 19:48] LABS: Calcium,Total 13.5 mg/dL (8.5-10.1)
[2018-04-16] MEDS: Glucerna Shake 120 ML LIQUID PO (21:44)
[2018-04-16] MEDS: 0.9% NaCl Peripheral Flush Adult/Peds IV ×2 (21:45→22:05)
[2018-04-16] MEDS: Magnesium Oxide 400 MG Tablet PO (21:47)
[2018-04-16] MEDS: Heparin Injection (Vial) 5,000 UNIT/ML VIAL 5000 UNIT SC (21:53)
[2018-04-16] MEDS: Insulin Lispro 100 UNIT/ML INSULN.PEN SQ (21:53)
[2018-04-16] MEDS: Insulin NPH Human 100 UNITS/ML PEN 38 UNITS SC (21:53)
[2018-04-16] MEDS: oxyCODONE 5 MG Tablet PO (22:11)
[2018-04-16 22:21] LABS: Bedside Glucose 165 mg/dL (70-110)
[2018-04-16 22:38] LABS: Mucous, Urine 0 SEEN /hpf (<or=2+)
[2018-04-16 22:50] LABS: Urine Sodium 54 mmol/L (Not Establ.)
[2018-04-16 22:53] LABS: Magnesium 1.7 mg/dL (1.6-2.6)
[2018-04-16 22:56] LABS: Color, Urine Yellow (Yellow); Glucose, Dipstick 50 mg/dl (Normal); Ketone-Dipstick 5 mg/dl (Negative); Leukocyte Esterase-Dipstick 25 /ul (Negative); Nitrite-Dipstick Negative (Negative); Occult Blood-Urine 25 /ul (Negative); Protein-Dipstick 30 mg/dl (Negative); Specific Gravity, Urine 1.025 (1.002-1.030); Urine Bilirubin Dipstick Negative (Negative); Urine Clarity Sl. Cloudy (Clear); Urine Urobilinogen Normal (Normal)
[2018-04-16 23:04] LABS: Red Blood Cells-Urine 0-5 SEEN /hpf (0-5); Squamous Epithelial Cells - UA 0-5 SEEN /hpf (0-5); White Blood Cells 0-5 SEEN /hpf (0-5)
[2018-04-16 23:05] LABS: Amorphous Sediment 1+ URATE; Fine Granular Cast- Urine 0-5 SEEN /lpf (0-5); Hyaline Cast 0-5 SEEN /lpf (0-5)
[2018-04-16 23:12] LABS: Hemoglobin A1c 6.7 % (4.2-6.3)
[2018-04-16] MEDS: 0.9% Normal Saline 1,000 ML 200 ML IV (23:35)
[2018-04-17] VITALS (14 sets, daily range): BP systolic 106–149; BP diastolic 55–76; PULSE 64–110; RESP 14–16; TEMP 36.2–36.7; O2SAT 94–97
[2018-04-17] MEDS: 0.9% Normal Saline 1,000 ML 200 ML IV ×2 (05:46→11:02)
[2018-04-17] MEDS: Levothyroxine 100 MCG Tablet PO (05:46)
[2018-04-17] MEDS: Heparin Injection (Vial) 5,000 UNIT/ML VIAL 5000 UNIT SC ×3 (05:46→22:18)
[2018-04-17 06:51] LABS: Bedside Glucose 145 mg/dL (70-110)
[2018-04-17 07:02] LABS: AST(SGOT) 57 U/L (15-37); Alanine Aminotransfer ALT/SGPT 44 U/L (16-61); Albumin, Serum 2.6 g/dL (3.2-5.0); Alkaline Phosphatase 157 U/L (45-117); Anion Gap 11 (5-15); BUN 37 mg/dL (7-18); BUN/Creat Ratio 12.6 RATIO (10-20); Bilirubin, Direct 0.32 mg/dL (0.00-0.30); Chloride 102 mmol/L (98-107); Creatinine, Serum 2.94 mg/dL (0.70-1.30); EST Glomerular Filtration Rate 25 mL/min (>60); Est Glom Filt Rate - Afr Amer 30 mL/min (>60); Estimated Creatinine Clearance 33.45 ml/min; Globulin 5.1 g/dL (2.2-4.2); Glucose 150 mg/dL (74-106); Phosphorus 3.3 mg/dL (2.5-4.9); Potassium 3.5 mmol/L (3.5-5.1); Protein, Total 7.7 g/dL (6.4-8.2); Sodium Level 136 mmol/L (136-145)
[2018-04-17 07:13] LABS: Absolute Lymphocyte Count 0.59 X10^3/ul (0.83-4.51); Absolute Neutrophil Count 3.5 X10^3/uL (2.0-7.7); Basophil# 0.01 X10^3/uL; Basophil% 0.2 % (0-1); Eosinophil# 0.13 X10^3/uL; Eosinophils% 2.7 % (0-5); Hematocrit 29.7 % (40-54); Lymphocyte # 0.59 X10^3/ul (4.0); Lymphocyte % 12.4 % (19-41); Mean Corp Hgb Conc 33.7 g/gl (32-36); Mean Corpuscular Hgb 29.5 pg (27.0-32.0); Mean Corpuscular Volume 87.6 fL (80-94); Mean Platelet Vol. 8.7 fl (6.2-12.0); Monocyte# 0.45 X10^3/uL; Monocyte% 9.5 % (0-10); Neutrophil # 3.53 X10^3/uL (2.7-7.7); Neutrophil % 74.4 % (47-70); Platelet Count 169 K/mm3 (150-450); RBC Distribution Width SD 44.9 fl (35.1-43.9); Red Blood Count 3.39 M/mm3 (4.6-6.2); White Blood Count 4.8 K/mm3 (4.4-11.0)
[2018-04-17 07:18] LABS: Differential Indicated SCAN CRITERIA MET; POSITIVE COUNT NO; POSITIVE DIFFERENTIAL YES; POSITIVE MORPHOLOGY NO
--- NOTE | 2018-04-17 08:00 | PCM.PN.SRG ---
Patient Problems: Active and Suspected Problems (Last Reviewed 04/16/18 @ 16:19 by Ruth Grove PA-C) Perianal abscess (Acute) Perirectal abscess (Acute) Subjective: Patient is doing well this morning. He reports he is in much less pain after surgery than he was before. No other issues overnight. - Physical Exam General: Alert, Oriented x3, Cooperative Neck: No JVD Lungs: Normal air movement Cardiovascular: Regular rate, Regular Rhythm Abdomen: Soft, Non Tender, Non-Distended Vital Signs Temp Pulse Resp BP Pulse Ox 98.1 F 97 16 114/55 L 97 04/17/18 04:23 04/17/18 07:00 04/17/18 04:23 04/17/18 04:23 04/17/18 04:23 Oxygen Flow Rate (L/min) 1.5 Oxygen Delivery Method Nasal Cannula Weight: 414 lb 7.504 oz Body Mass Index (BMI) 59.1 Finger Stick Blood Glucose 152 Intake and Output for Last 24 Hours 04/15/18 04/16/18 04/17/18 23:59 23:59 23:59 Intake Total 2444.6 / 2444.6 1253 / 1253 Output Total 600 / 600 500 / 500 Balance 1844.6 / 1844.6 753 / 753 Laboratory Tests Past 24 Hrs 04/16/18 04/16/18 04/16/18 10:55 10:55 10:55 WBC 8.1 RBC 3.94 L Hgb 11.7 L Hct 33.9 L MCV 86.0 MCH 29.7 MCHC 34.5 RDW 13.5 RDW Differential 41.7 Plt Count 236 MPV 8.7 Immature Gran % (Auto) 0.900 Neut % (Auto) 81.5 H Lymph % (Auto) 9.2 L [place] % (Auto) 6.8 Eos % (Auto) 1.5 Baso % (Auto) 0.1 Absolute Neuts (auto) 6.6 Absolute Lymphs (auto) 0.74 L Total Counted Not Reportable Sodium 133 L Potassium 3.4 L Chloride 99 Carbon Dioxide 26.0 Anion Gap 8 BUN 38 H Creatinine 3.19 H Estim Creat Clear Calc 30.83 Est GFR (MDRD) Af Amer 27 L Est GFR (MDRD) Non-Af 23 L BUN/Creatinine Ratio 11.9 Glucose 171 H Hemoglobin A1c 6.7 H Calcium 13.6 H* Phosphorus Magnesium Total Bilirubin 0.80 Direct Bilirubin AST 62 H ALT 46 Alkaline Phosphatase 179 H Total Protein 8.7 H Total Protein (PEP) Albumin 3.0 L Globulin 5.7 H Albumin/Globulin Ratio 0.5 L Vit D 1,25-Dihydroxy Urine Color Urine Clarity Urine pH Ur Specific [place] Urine Protein Urine Glucose (UA) Urine Ketones Urine Occult Blood Urine Nitrite Urine Bilirubin Urine Urobilinogen Ur Leukocyte Esterase Urine RBC Urine WBC Ur Squamous Epith Cells Amorphous Sediment Urine Bacteria Hyaline Casts Fine Granular Casts Urine Mucus Ur Random Sodium Urine Creatinine Ur Total Protein 24 Hr Urine Total Protein Urine Albumin U Fnsga-7-Qmeqxish U Vmxxh-9-Lntcfewd U Beta Globulin U Gamma Globulin IgG IgA IgM Albumin (GHASSAN) Albumin/Globulin (GHASSAN) Mziod-4-Crxwimjkn GHASSAN Aplbc-7-Jlkxcnzbq GHASSAN Beta-Globulins (GHASSAN) Gamma Globulins (GHASSAN) GHASSAN M-Nabil 04/16/18 04/16/18 04/16/18 19:10 19:10 22:15 WBC RBC Hgb Hct MCV MCH MCHC RDW RDW Differential Plt Count MPV Immature Gran % (Auto) Neut % (Auto) Lymph % (Auto) [place] % (Auto) Eos % (Auto) Baso % (Auto) Absolute Neuts (auto) Absolute Lymphs (auto) Total Counted Sodium 136 Potassium 3.2 L Chloride 100 Carbon Dioxide 23.0 Anion Gap 13 BUN 39 H Creatinine 3.04 H Estim Creat Clear Calc 32.35 Est GFR (MDRD) Af Amer 29 L Est GFR (MDRD) Non-Af 24 L BUN/Creatinine Ratio 12.8 Glucose 162 H Hemoglobin A1c Calcium 13.5 H* Phosphorus Magnesium 1.7 Total Bilirubin Direct Bilirubin AST ALT Alkaline Phosphatase Total Protein Total Protein (PEP) Albumin Globulin Albumin/Globulin Ratio Vit D 1,25-Dihydroxy Urine Color Urine Clarity Urine pH Ur Specific [place] Urine Protein Urine Glucose (UA) Urine Ketones Urine Occult Blood Urine Nitrite Urine Bilirubin Urine Urobilinogen Ur Leukocyte Esterase Urine RBC Urine WBC Ur Squamous Epith Cells Amorphous Sediment Urine Bacteria Hyaline Casts Fine Granular Casts Urine Mucus Ur Random Sodium Urine Creatinine 136.00 Ur Total Protein 24 Hr Urine Total Protein Urine Albumin U Aoifx-1-Hqbcisjw U Ziqao-1-Xmziqcvb U Beta Globulin U Gamma Globulin IgG IgA IgM Albumin (GHASSAN) Albumin/Globulin (GHASSAN) Aftxu-4-Nnqortqlg GHASSAN Ljgck-0-Wzytzbtbc GH[place]AN Beta-Globulins (GHASSAN) Gamma Globulins (GHASSAN) GHASSAN M-Nabil 04/16/18 04/16/18 04/17/18 22:15 22:15 06:15 WBC RBC Hgb Hct MCV MCH MCHC RDW RDW Differential Plt Count MPV Immature Gran % (Auto) Neut % (Auto) Lymph % (Auto) [place] % (Auto) Eos % (Auto) Baso % (Auto) Absolute Neuts (auto) Absolute Lymphs (auto) Total Counted Sodium 136 Potassium 3.5 Chloride 102 Carbon Dioxide 23.0 Anion Gap 11 BUN 37 H Creatinine 2.94 H Estim Creat Clear Calc 33.45 Est GFR (MDRD) Af Amer 30 L Est GFR (MDRD) Non-Af 25 L BUN/Creatinine Ratio 12.6 Glucose 150 H Hemoglobin A1c Calcium 13.0 H* Phosphorus 3.3 Magnesium Total Bilirubin 0.80 Direct Bilirubin 0.32 H AST 57 H ALT 44 Alkaline Phosphatase 157 H Total Protein 7.7 Total Protein (PEP) Albumin 2.6 L Globulin 5.1 H Albumin/Globulin Ratio Vit D 1,25-Dihydroxy Urine Color Yellow Urine Clarity Sl. Cloudy Urine pH 5.0 Ur Specific [place] 1.025 Urine Protein 30 H Urine Glucose (UA) 50 H Urine Ketones 5 H Urine Occult Blood 25 H Urine Nitrite Negative Urine Bilirubin Negative Urine Urobilinogen Normal Ur Leukocyte Esterase 25 H Urine RBC 0-5 SEEN Urine WBC 0-5 SEEN Ur Squamous Epith Cells 0-5 SEEN Amorphous Sediment 1+ URATE Urine Bacteria Not Reportable Hyaline Casts 0-5 SEEN Fine Granular Casts 0-5 SEEN Urine Mucus 0 SEEN Ur Random Sodium 54 Urine Creatinine Ur Total Protein 24 Hr Urine Total Protein Urine Albumin U Rqjbt-8-Tettahpt U Ddeqe-0-Kooypxaw U Beta Globulin U Gamma Globulin IgG IgA IgM Albumin (GHASSAN) Albumin/Globulin (GHASSAN) Ybasb-9-Naiotwyvn GHASSAN Vyslu-5-Cesupjwdl GHASSAN Beta-Globulins (GHASSAN) Gamma Globulins (GHASSAN) GHASSAN M-Nabil 04/17/18 04/17/18 04/17/18 06:15 06:15 06:15 WBC 4.8 RBC 3.39 L Hgb 10.0 L Hct 29.7 L MCV 87.6 MCH 29.5 MCHC 33.7 RDW 14.0 RDW Differential 44.9 H Plt Count 169 MPV 8.7 Immature Gran % (Auto) 0.800 Neut % (Auto) 74.4 H Lymph % (Auto) 12.4 L [place] % (Auto) 9.5 Eos % (Auto) 2.7 Baso % (Auto) 0.2 Absolute Neuts (auto) 3.5 Absolute Lymphs (auto) 0.59 L Total Counted Not Reportable Sodium Potassium Chloride Carbon Dioxide Anion Gap BUN Creatinine Estim Creat Clear Calc Est GFR (MDRD) Af Amer Est GFR (MDRD) Non-Af BUN/Creatinine Ratio Glucose Hemoglobin A1c Calcium Phosphorus Magnesium Total Bilirubin Direct Bilirubin AST ALT Alkaline Phosphatase Total Protein Total Protein (PEP) Pending Albumin Globulin Albumin/Globulin Ratio Vit D 1,25-Dihydroxy Pending Urine Color Urine Clarity Urine pH Ur Specific [place] Urine Protein Urine Glucose (UA) Urine Ketones Urine Occult Blood Urine Nitrite Urine Bilirubin Urine Urobilinogen Ur Leukocyte Esterase Urine RBC Urine WBC Ur Squamous Epith Cells Amorphous Sediment Urine Bacteria Hyaline Casts Fine Granular Casts Urine Mucus Ur Random Sodium Urine Creatinine Ur Total Protein 24 Hr Pending Urine Total Protein Pending Urine Albumin Pending U Nezqa-6-Uihsgdod Pending U Ukmiy-4-Vqxwpxyg Pending U Beta Globulin Pending U Gamma Globulin Pending IgG Pending IgA Pending IgM Pending Albumin (GHASSAN) Pending Albumin/Globulin (GHASSAN) Pending Nwzgr-3-Rshxkncey GHASSAN Pending Vupqq-5-Fzsutrrrv GHASSAN Pending Beta-Globulins (GHASSAN) Pending Gamma Globulins (GHASSAN) Pending GHASSAN M-Nabil Pending POC Glucose 04/17/18 04/16/18 04/16/18 06:45 21:42 18:27 POC Glucose 145 H 165 H 152 H 04/16/18 17:22 POC Glucose 156 H Medical Necessity - Tobacco Use Smoking Status: Former smoker Tobacco Use: Cigarettes Assessment/Plan All Active Problems (Last Reviewed 04/16/18 @ 16:19 by Ruth Grove PA-C) Cholelithiasis (Acute) Perianal abscess (Acute) Perirectal abscess (Acute) 42-year-old male with perirectal abscess 1. Patient was taken for debridement yesterday afternoon. He did have an abscess cavity tracking lateral to his rectum. This was all packed with Kerlix. The wound RN is consulted to change the packing. Patient will follow-up with wound center for packing changes. 2. Continue antibiotics. Tissue was sent for culture. Patient may have regular diet. Dennis Molina MD Pager: [facility] [address] [place] [address], [address] [place] [phone] Office:
[2018-04-17] MEDS: Insulin NPH Human 100 UNITS/ML PEN 38 UNITS SC ×2 (08:43→22:18)
[2018-04-17] MEDS: Aspirin 81 MG TAB.CHEW PO (08:43)
[2018-04-17] MEDS: Magnesium Oxide 400 MG Tablet PO ×2 (08:44→22:19)
[2018-04-17] MEDS: Metoprolol Tartrate 50 MG Tablet PO ×2 (08:44→22:20)
--- NOTE | 2018-04-17 09:21 | PCM.CONS.R ---
Consultation - Renal 04/17/18 PCP/ Referring MD: Requesting physician: [] Primary care physician: [facility]ing[facility] Reason for Consultation:: CLARENCE on CKD stage 3 - History of Present Illness History of Present Illness: The patient is a 42 year old morbidly obese M with DMT2 on insulin and oral agents past 10 years, hypertension, hyperlipidemia, hypothyroidism, history of fatty liver/PINEDA who comes in with a 2-week history of a pimple-like lesion on the left gluteal region. This has started as a hard lump and spontaneously ruptured 5 days ago. He noticed more drainage, less pain. Patient denied any fever or chills or dizziness or palpitation. He has a history of recent open cholecystectomy for gangrenous GB in January 2018 at [facility] followed by wound clinic. He has not been on antibiotic therapy. He complains of diarrhea past month with loose stools twice a day. He is on a magnesium supplement at home. He had decreased appetite. He is on metformin and lisinopril at home. Blood work on admit showed RBC count 8.1, hemoglobin 11.7, platelet count 236. Sodium was 133, potassium 3.4, chloride 99, BUN 38, creatinine 3.19, calcium 13.6. He has been on vit d supplement weekly prescribed by primary care at [facility]. Baseline creatinine appears to be 1.5-1.8 in 2018. He is aware of kidney problems in the past. He was seen by hematology in the past for leukocytosis that resolved on its own. No history of cancer. CT of pelvis showed skin thickening and increased marking within the subcutaneous fat with a small amount of air collection in the gluteal region. Patient was seen by general surgery and underwent left gluteal perirectal abscess debridement and packing for left perirectal abscess with gangrene. He is being worked up for sleep apnea managed by primary care as outpt. Currently not using a mask. - Allergies Allergies: Allergies wool Adverse Reaction (Severe, Verified 04/16/18 10:09) Hives - Current Medications Current Medications: Current Medications Aspirin (Aspirin, Baby) 81 mg PO DAILY@0800 [facility] Last Admin: 04/17/18 08:43 Dose: 81 mg Bisacodyl (Dulcolax) 5 mg PO DAILY PRN PRN PRN Reason: Constipation Dextrose (D50w Syringe) 0 gm IV X1 PRN; Protocol PRN Reason: Hypoglycemia Glucagon () 1 mg IM .X1 PRN PRN Reason: Hypoglycemia Heparin Sodium (Porcine) (Heparin Na) 5,000 unit SC Q8 [facility] Last Admin: 04/17/18 05:46 Dose: 5,000 unit Piperacillin Sod/Tazobactam (Sod 3.375 gm/ Sodium Chloride) 50 mls @ 12.5 mls/hr IV Q8 [facility] Last Admin: 04/17/18 05:48 Dose: 12.5 mls/hr Sodium Chloride () 1,000 mls @ 200 mls/hr IV .Q5H [facility] Stop: 04/17/18 14:59 Last Admin: 04/17/18 05:46 Dose: 200 mls/hr Insulin Human Lispro (Humalog Kwikpen (Bkc)) 0 unit SQ ACHS [facility]; Protocol Last Admin: 04/16/18 21:53 Dose: 1 u Insulin Human NPH (Humulin N (Bkc)) 38 units SC BID [facility] Last Admin: 04/17/18 08:43 Dose: 38 u Levothyroxine Sodium (Synthroid) 100 mcg PO DAILY@0600 [facility] Last Admin: 04/17/18 05:46 Dose: 100 mcg Magnesium Hydroxide (Milk Of Magnesia) 30 ml PO DAILY PRN PRN Reason: Constipation Magnesium Oxide (Mag-Ox 400) 400 mg PO BID [facility] Last Admin: 04/17/18 08:44 Dose: 400 mg Metoprolol Tartrate (Lopressor (Beta Helen)) 50 mg PO BID [facility] Last Admin: 04/17/18 08:44 Dose: 50 mg Morphine Sulfate () 2 - 4 mg IV Q2H PRN PRN PRN Reason: SEVERE PAIN (6-10/10) Morphine Sulfate () 2 - 4 mg IV Q2H PRN PRN PRN Reason: SEVERE PAIN (6-10/10) Nutritional Formula (Lactose Free) (Glucerna Shake) 120 ml PO 4X/DAY [facility] Last Admin: 04/17/18 08:44 Dose: Not Given Ondansetron HCl (Zofran) 4 mg IV Q8H PRN PRN PRN Reason: NAUSEA Oxycodone HCl (Oxyir) 5 - 10 mg PO Q4H PRN PRN PRN Reason: SEVERE PAIN (6-10/10) Last Admin: 04/16/18 22:11 Dose: 5 mg Sodium Chloride () 5 - 15 ml IV UD PRN PRN Reason: SALINE FLUSH Last Admin: 04/16/18 22:05 Dose: 10 ml - Past Medical History Past Medical History (Chronic Problems): Chronic Problems (Last Reviewed 04/16/18 @ 16:19 by Ruth Grove PA-C) Essential (primary) hypertension (Chronic) Steatohepatitis (Chronic) Hypothyroidism (Chronic) Type 2 diabetes mellitus without complications (Chronic) Morbid obesity (Chronic) Peripheral arterial disease (Chronic) Thrombocytopenia (Chronic) Leukopenia (Chronic) Bilateral lower extremity edema (Chronic) - Past Surgical History Surgical History: cholecystectomy, tonsillectomy - Social History Smoking Status: Former smoker Alcohol: None Drugs: None - Family History Maternal Family History: Family History (Last Reviewed 11/06/17 @ 09:38 by Ramandeep Rodgers) Grandfather Family history of heart disease Family history of hypertension Mother Family history of high cholesterol Grandfather Family history of high cholesterol Aunt Family history of hypertension Other Family history of hypertension in mother History Items: - - Patient notes a maternal family history of hypertension and hyperlipidemia. Paternal Family History: Family History (Last Reviewed 11/06/17 @ 09:38 by Ramandeep Rodgers) Grandfather Family history of heart disease Family history of hypertension Mother Family history of high cholesterol Grandfather Family history of high cholesterol Aunt Family history of hypertension Other Family history of hypertension in mother History Items: - - Patient notes a paternal family history of heart disease, hypertension, hyperlipidemia and diabetes in father, uncle, cousin. Review of Systems Constitutional: Reports: Anorexia. Denies: Chills, Fever, Weakness, Fatigue Eyes: Denies: Blurred vision HEENT: Denies: Head Aches, Nasal Congestion Cardiovascular: Denies: Chest Pain, Edema Respiratory: Denies: Cough, Hemoptysis, Shortness of Breath Gastrointestinal: Reports: Diarrhea, Nausea, Vomiting, - - slowly healing open wound s/p cholecystectomy in January 2018 packed by wound center. Denies: Abdominal Pain, Constipation Musculoskeletal: Reports: - - no weakness. Denies: Joint swelling, Muscle pain Skin: Reports: Wounds - left perirectal/gluteal abscess, ventral wound Neurological: Denies: Balance problems, Blurred vision Psychiatric: Denies: Anxiety, Depression Hematologic/ Lymphatic: Denies: Hx of blood clot Patient Problems: Active and Suspected Problems (Last Reviewed 04/16/18 @ 16:19 by Ruth Grove PA-C) Perianal abscess (Acute) Perirectal abscess (Acute) - Physical Exam General: Alert, Oriented x3, Cooperative, No apparent distress HEENT: PERRLA, EOMI Oral: Moist Mucosa Neck: Supple Lungs: Clear to auscultation Cardiovascular: Regular rate Abdomen: Bowel Sounds Present, Soft, Non Tender, Non-Distended, Obese - super Extremities: No clubbing, No cyanosis, No edema Skin: Ulcer/ Wound - ventral, left gluteal drsg applied Musculoskeletal: No Muscle Wasting Neurological: Cranial nerves II-XII grossly intact Psych/Mental Status: Alert and oriented to time, place, person, mood and affect Vital Signs Temp Pulse Resp BP Pulse Ox 98.1 F 64 16 114/55 L 95 04/17/18 04:23 04/17/18 08:44 04/17/18 04:23 04/17/18 04:23 04/17/18 06:31 Oxygen Flow Rate (L/min) 2 Oxygen Delivery Method Nasal Cannula Weight: 188 kg Body Mass Index (BMI) 59.1 Finger Stick Blood Glucose 152 Intake and Output for Last 24 Hours 04/15/18 04/16/18 04/17/18 23:59 23:59 23:59 Intake Total 2444.6 / 2444.6 1253 / 1253 Output Total 600 / 600 500 / 500 Balance 1844.6 / 1844.6 753 / 753 Laboratory Tests Past 24 Hrs 04/16/18 04/16/18 04/16/18 10:55 10:55 10:55 WBC 8.1 RBC 3.94 L Hgb 11.7 L Hct 33.9 L MCV 86.0 MCH 29.7 MCHC 34.5 RDW 13.5 RDW Differential 41.7 Plt Count 236 MPV 8.7 Immature Gran % (Auto) 0.900 Neut % (Auto) 81.5 H Lymph % (Auto) 9.2 L [place] % (Auto) 6.8 Eos % (Auto) 1.5 Baso % (Auto) 0.1 Absolute Neuts (auto) 6.6 Absolute Lymphs (auto) 0.74 L Total Counted Not Reportable Sodium 133 L Potassium 3.4 L Chloride 99 Carbon Dioxide 26.0 Anion Gap 8 BUN 38 H Creatinine 3.19 H Estim Creat Clear Calc 30.83 Est GFR (MDRD) Af Amer 27 L Est GFR (MDRD) Non-Af 23 L BUN/Creatinine Ratio 11.9 Glucose 171 H Hemoglobin A1c 6.7 H Calcium 13.6 H* Phosphorus Magnesium Total Bilirubin 0.80 Direct Bilirubin AST 62 H ALT 46 Alkaline Phosphatase 179 H Total Protein 8.7 H Total Protein (PEP) Albumin 3.0 L Globulin 5.7 H Albumin/Globulin Ratio 0.5 L Vit D 1,25-Dihydroxy Urine Color Urine Clarity Urine pH Ur Specific [place] Urine Protein Urine Glucose (UA) Urine Ketones Urine Occult Blood Urine Nitrite Urine Bilirubin Urine Urobilinogen Ur Leukocyte Esterase Urine RBC Urine WBC Ur Squamous Epith Cells Amorphous Sediment Urine Bacteria Hyaline Casts Fine Granular Casts Urine Mucus Ur Random Sodium Urine Creatinine Ur Total Protein 24 Hr Urine Total Protein Urine Albumin U Jixhq-4-Dnbciohf U Nabjl-0-Lgfaxnll U Beta Globulin U Gamma Globulin IgG IgA IgM Albumin (GHASSAN) Albumin/Globulin (GHASSAN) Ewwch-4-Oflszzzjq GHASSAN Rmefm-8-Ujlupggfn GHASSAN Beta-Globulins (GHASSAN) Gamma Globulins (GHASSAN) GHASSAN M-Nabil 04/16/18 04/16/18 04/16/18 19:10 19:10 22:15 WBC RBC Hgb Hct MCV MCH MCHC RDW RDW Differential Plt Count MPV Immature Gran % (Auto) Neut % (Auto) Lymph % (Auto) [place] % (Auto) Eos % (Auto) Baso % (Auto) Absolute Neuts (auto) Absolute Lymphs (auto) Total Counted Sodium 136 Potassium 3.2 L Chloride 100 Carbon Dioxide 23.0 Anion Gap 13 BUN 39 H Creatinine 3.04 H Estim Creat Clear Calc 32.35 Est GFR (MDRD) Af Amer 29 L Est GFR (MDRD) Non-Af 24 L BUN/Creatinine Ratio 12.8 Glucose 162 H Hemoglobin A1c Calcium 13.5 H* Phosphorus Magnesium 1.7 Total Bilirubin Direct Bilirubin AST ALT Alkaline Phosphatase Total Protein Total Protein (PEP) Albumin Globulin Albumin/Globulin Ratio Vit D 1,25-Dihydroxy Urine Color Urine Clarity Urine pH Ur Specific [place] Urine Protein Urine Glucose (UA) Urine Ketones Urine Occult Blood Urine Nitrite Urine Bilirubin Urine Urobilinogen Ur Leukocyte Esterase Urine RBC Urine WBC Ur Squamous Epith Cells Amorphous Sediment Urine Bacteria Hyaline Casts Fine Granular Casts Urine Mucus Ur Random Sodium Urine Creatinine 136.00 Ur Total Protein 24 Hr Urine Total Protein Urine Albumin U Esfji-4-Oapwnpbd U Zufgj-7-Kqvcxhhr U Beta Globulin U Gamma Globulin IgG IgA IgM Albumin (GHASSAN) Albumin/Globulin (GHASSAN) Epdaz-7-Uouecmokd GHASSAN Onhdr-0-Rwognejlf GH[place]AN Beta-Globulins (GHASSAN) Gamma Globulins (GHASSAN) GHASSAN M-Nabil 04/16/18 04/16/18 04/17/18 22:15 22:15 06:15 WBC RBC Hgb Hct MCV MCH MCHC RDW RDW Differential Plt Count MPV Immature Gran % (Auto) Neut % (Auto) Lymph % (Auto) [place] % (Auto) Eos % (Auto) Baso % (Auto) Absolute Neuts (auto) Absolute Lymphs (auto) Total Counted Sodium 136 Potassium 3.5 Chloride 102 Carbon Dioxide 23.0 Anion Gap 11 BUN 37 H Creatinine 2.94 H Estim Creat Clear Calc 33.45 Est GFR (MDRD) Af Amer 30 L Est GFR (MDRD) Non-Af 25 L BUN/Creatinine Ratio 12.6 Glucose 150 H Hemoglobin A1c Calcium 13.0 H* Phosphorus 3.3 Magnesium Total Bilirubin 0.80 Direct Bilirubin 0.32 H AST 57 H ALT 44 Alkaline Phosphatase 157 H Total Protein 7.7 Total Protein (PEP) Albumin 2.6 L Globulin 5.1 H Albumin/Globulin Ratio Vit D 1,25-Dihydroxy Urine Color Yellow Urine Clarity Sl. Cloudy Urine pH 5.0 Ur Specific [place] 1.025 Urine Protein 30 H Urine Glucose (UA) 50 H Urine Ketones 5 H Urine Occult Blood 25 H Urine Nitrite Negative Urine Bilirubin Negative Urine Urobilinogen Normal Ur Leukocyte Esterase 25 H Urine RBC 0-5 SEEN Urine WBC 0-5 SEEN Ur Squamous Epith Cells 0-5 SEEN Amorphous Sediment 1+ URATE Urine Bacteria Not Reportable Hyaline Casts 0-5 SEEN Fine Granular Casts 0-5 SEEN Urine Mucus 0 SEEN Ur Random Sodium 54 Urine Creatinine Ur Total Protein 24 Hr Urine Total Protein Urine Albumin U Bqdjs-9-Davdxoue U Zgukq-1-Klypqxpi U Beta Globulin U Gamma Globulin IgG IgA IgM Albumin (GHASSAN) Albumin/Globulin (GHASSAN) Zrqay-0-Kmxrmfbin GHASSAN Cxdnd-5-Pfifjuupj GHASSAN Beta-Globulins (GHASSAN) Gamma Globulins (GHASSAN) GHASSAN M-Nabil 04/17/18 04/17/18 04/17/18 06:15 06:15 06:15 WBC 4.8 RBC 3.39 L Hgb 10.0 L Hct 29.7 L MCV 87.6 MCH 29.5 MCHC 33.7 RDW 14.0 RDW Differential 44.9 H Plt Count 169 MPV 8.7 Immature Gran % (Auto) 0.800 Neut % (Auto) 74.4 H Lymph % (Auto) 12.4 L [place] % (Auto) 9.5 Eos % (Auto) 2.7 Baso % (Auto) 0.2 Absolute Neuts (auto) 3.5 Absolute Lymphs (auto) 0.59 L Total Counted Not Reportable Sodium Potassium Chloride Carbon Dioxide Anion Gap BUN Creatinine Estim Creat Clear Calc Est GFR (MDRD) Af Amer Est GFR (MDRD) Non-Af BUN/Creatinine Ratio Glucose Hemoglobin A1c Calcium Phosphorus Magnesium Total Bilirubin Direct Bilirubin AST ALT Alkaline Phosphatase Total Protein Total Protein (PEP) Pending Albumin Globulin Albumin/Globulin Ratio Vit D 1,25-Dihydroxy Pending Urine Color Urine Clarity Urine pH Ur Specific [place] Urine Protein Urine Glucose (UA) Urine Ketones Urine Occult Blood Urine Nitrite Urine Bilirubin Urine Urobilinogen Ur Leukocyte Esterase Urine RBC Urine WBC Ur Squamous Epith Cells Amorphous Sediment Urine Bacteria Hyaline Casts Fine Granular Casts Urine Mucus Ur Random Sodium Urine Creatinine Ur Total Protein 24 Hr Pending Urine Total Protein Pending Urine Albumin Pending U Rprkz-3-Gujnsdzu Pending U Cgcuh-9-Gahxencg Pending U Beta Globulin Pending U Gamma Globulin Pending IgG Pending IgA Pending IgM Pending Albumin (GHASSAN) Pending Albumin/Globulin (GHASSAN) Pending Debmj-2-Jfytzcqfk GHASSAN Pending Ppfnt-1-Cjyifdhaq GHASSAN Pending Beta-Globulins (GHASSAN) Pending Gamma Globulins (GHASSAN) Pending GHASSAN M-Nabil Pending POC Glucose 04/17/18 04/16/18 04/16/18 06:45 21:42 18:27 POC Glucose 145 H 165 H 152 H 04/16/18 17:22 POC Glucose 156 H Clinical Impression(s) from Imaging Studies Pelvis CT 04/16/18 10:24 IMPRESSION: Findings suggestive saline is along the upper mid medial posterior buttock. A small amount of gas is seen within the midline just catheter to the perineum. No focal abscess is seen. Electronically Signed: Jt Anderson MD at 12:40 EST , Service support , Renal Ultrasound 04/16/18 17:26 IMPRESSION: Small complex lesion in the upper pole of the right kidney which could represent a complex cyst. Solid lesion is less likely. Follow-up CT scan of the kidneys with and without contrast is recommended otherwise follow-up examination in 3 months is recommended. Electronically Signed: Ankit Carlos MD at 22:23 EST Tel , Service support , Assessment/Plan All Active Problems (Last Reviewed 04/16/18 @ 16:19 by Ruth Grove PA-C) Cholelithiasis (Acute) Perianal abscess (Acute) Perirectal abscess (Acute) 1. CLARENCE on CKD stage 3 likely due to dehydration, prerenal event on lisinopril at home. Creatinine 3.19 on admit improved to 2.96 today with iv hydration. Creatinine 1.37 in June 2017, 1.7-1.8 in December 2017. Suspect underlying diabetic nephropthy. Continue to hold lisinopril and metformin. Continue with iv hydration. Avoid nephrotoxins, NSAIDs. 24h urine protein ordered by primary service. 2. Incidental complex cyst in right kidney on US from 04/16/18. Reviewed findings with radiology. CT abdomen in December 2017 without pelvic mass lesion or lymphadenopathy. Bilateral kidney stones on CT without obstruction in December. No f/u studies needed. 3. DMT2 on insulin and metformin. DC metformin. A1C 6.7 on 04/16/18 4. HTN stable 5. Perirectal abscess s/p I/D by Gen surgery, iv antibx. 6. Hypercalcemia on vit D supplement weekly at home. Calcium normal range in December 2017. Check vit D levels, PTH, PTHrp. Stop supplement and continue with iv hydration. Suspect due to hypervitaminosis, dehydration. Continue to monitor. Currently asymptomatic. Has been seen by hem/onc in the past for leukocytosis that resolved spontaneously. No BM bx in the past. 7. Morbid obesity
[2018-04-17 10:01] LABS: Vitamin D,25 Hydroxy 43.2 ng/mL (29.95-100.01)
[2018-04-17] MEDS: Insulin Lispro 100 UNIT/ML INSULN.PEN SQ ×3 (10:58→22:18)
[2018-04-17] MEDS: oxyCODONE 5 MG Tablet PO ×2 (11:01→22:41)
--- NOTE | 2018-04-17 11:11 | NURSING ---
wound photo: right upper abdomen
--- NOTE | 2018-04-17 11:12 | NURSING ---
wound photo: left inner buttock
[2018-04-17 11:26] LABS: Bedside Glucose 171 mg/dL (70-110)
--- NOTE | 2018-04-17 14:26 | CASEMGMT ---
Assessment- SW met with patient, introduced self and role at [facility]. Patient's mom was also present and patient was ok with speaking in front of her. Living situation- Patient lives with his mom in a 1 story home with 3 entry steps. PCP: Linnette Riley Specialists: None that he sees regularly Pharmacy: [facility] DME: None ADL's/IADL's: Independent Past SNF/rehab: None Past HH: Current with [facility] (phone:[phone] and fax:[phone]) LW: No POA: No Plan: Patient plans on returning home with his mom. He is active with [facility] just for nursing for assistance with gallbladder dressing changes. His mom said she will be able to assist with dressing changes when he gets home. RONA called [facility] and spoke with Lorraine, one of the RN's. SW let her know admitting diagnosis and when he came in. SW also let her know there will be new dressing changes when he goes home. Maru CANO MSW
--- NOTE | 2018-04-17 17:13 | PCM.PN.HOSP ---
Patient Problems: Active and Suspected Problems (Last Reviewed 04/16/18 @ 16:19 by Ruth Grove PA-C) Hypercalcemia (Acute) Perianal abscess (Acute) Perirectal abscess (Acute) Subjective: Feels well. No new complaints. Vitals/I&O's: Vital Signs Temp Pulse Resp BP Pulse Ox 36.6 C 97 14 106/61 94 04/17/18 15:05 04/17/18 15:05 04/17/18 15:05 04/17/18 15:05 04/17/18 15:05 Oxygen Flow Rate (L/min) 2 Oxygen Delivery Method Room Air Weight: 188 kg Body Mass Index (BMI) 59.1 Finger Stick Blood Glucose 152 Intake and Output for Last 24 Hours 04/15/18 04/16/18 04/17/18 23:59 23:59 23:59 Intake Total 2444.6 / 2444.6 3030 / 3030 Output Total 600 / 600 925 / 925 Balance 1844.6 / 1844.6 2105 / 2105 General: Alert, Cooperative, No apparent distress HEENT: Atraumatic, Normocephalic Oral: Moist Mucosa, No Gingival or Mucosal Lesions/ Ulcerations Neck: No Nodes, Thyroid Normal Size and Texture Lungs: Clear to auscultation, Normal air movement, No rhonchi, No wheeze Cardiovascular: Regular rate, Regular Rhythm, Normal S1, Normal S2, No murmurs Abdomen: Bowel Sounds Present, Soft, Non Tender, Non-Distended, Obese Extremities: No edema, No Calf Tenderness Skin: - - left gluteal abscess site, packed without surrounding erythema. Psych/Mental Status: Normal Affect, Appropriate Microbiology Past 72 Hours 04/16/18 18:16 Tissue - Other Gram Stain - Final 04/16/18 18:16 Tissue - Other Wound Culture - Preliminary GNR lactose parliamentary archivist Gram Positive Cocci 04/16/18 18:16 Wound Abcess - Aerobic & Anaerobic Swabs Gram Stain - Final 04/16/18 18:16 Wound Abcess - Aerobic & Anaerobic Swabs Wound Culture - Preliminary GNR lactose parliamentary archivist Laboratory Results 04/16/18 10:55: Hemoglobin A1c 6.7 H 04/16/18 17:22: POC Glucose 156 H 04/16/18 18:27: POC Glucose 152 H 04/16/18 19:10: Sodium 136, Potassium 3.2 L, Chloride 100, Carbon Dioxide 23.0, Anion Gap 13, BUN 39 H, Creatinine 3.04 H, Estim Creat Clear Calc 32.35, Est GFR (MDRD) Af Amer 29 L, Est GFR (MDRD) Non-Af 24 L, BUN/Creatinine Ratio 12.8, Glucose 162 H, Calcium 13.5 H* 04/16/18 19:10: Magnesium 1.7 04/16/18 21:42: POC Glucose 165 H 04/16/18 22:15: Urine Creatinine 136.00 04/16/18 22:15: Urine Color Yellow, Urine Clarity Sl. Cloudy, Urine pH 5.0, Ur Specific [place] 1.025, Urine Protein 30 H, Urine Glucose (UA) 50 H, Urine Ketones 5 H, Urine Occult Blood 25 H, Urine Nitrite Negative, Urine Bilirubin Negative, Urine Urobilinogen Normal, Ur Leukocyte Esterase 25 H, Urine RBC 0-5 SEEN, Urine WBC 0-5 SEEN, Ur Squamous Epith Cells 0-5 SEEN, Amorphous Sediment 1+ URATE, Urine Bacteria Not Reportable, Hyaline Casts 0-5 SEEN, Fine Granular Casts 0-5 SEEN, Urine Mucus 0 SEEN 04/16/18 22:15: Ur Random Sodium 54 04/17/18 06:15: Sodium 136, Potassium 3.5, Chloride 102, Carbon Dioxide 23.0, Anion Gap 11, BUN 37 H, Creatinine 2.94 H, Estim Creat Clear Calc 33.45, Est GFR (MDRD) Af Amer 30 L, Est GFR (MDRD) Non-Af 25 L, BUN/Creatinine Ratio 12.6, Glucose 150 H, Calcium 13.0 H*, Phosphorus 3.3, Total Bilirubin 0.80, Direct Bilirubin 0.32 H, AST 57 H, ALT 44, Alkaline Phosphatase 157 H, Total Protein 7.7, Albumin 2.6 L, Globulin 5.1 H 04/17/18 06:15: Vit D 1,25-Dihydroxy Pending 04/17/18 06:15: Total Protein (PEP) Pending, Ur Total Protein 24 Hr Pending, Urine Total Protein Pending, Urine Albumin Pending, U Vusfq-9-Obpyzksw Pending, U Khqow-1-Fpwtrvgd Pending, U Beta Globulin Pending, U Gamma Globulin Pending, IgG Pending, IgA Pending, IgM Pending, Albumin (GHASSAN) Pending, Albumin/Globulin (GHASSAN) Pending, Wurdk-4-Vvalfvizv GHASSAN Pending, Aprxw-9-Yhpqybcle GHASSAN Pending, Beta-Globulins (GHASSAN) Pending, Gamma Globulins (GHASSAN) Pending, GHASSAN M-Nabil Pending 04/17/18 06:15: WBC 4.8, RBC 3.39 L, Hgb 10.0 L, Hct 29.7 L, MCV 87.6, MCH 29.5, MCHC 33.7, RDW 14.0, RDW Differential 44.9 H, Plt Count 169, MPV 8.7, Immature Gran % (Auto) 0.800, Neut % (Auto) 74.4 H, Lymph % (Auto) 12.4 L, [place] % (Auto) 9.5, Eos % (Auto) 2.7, Baso % (Auto) 0.2, Absolute Neuts (auto) 3.5, Absolute Lymphs (auto) 0.59 L, Total Counted Not Reportable 04/17/18 06:15: Vitamin D 25-Hydroxy 43.2 04/17/18 06:45: POC Glucose 145 H 04/17/18 10:56: POC Glucose 171 H Current Medications Aspirin (Aspirin, Baby) 81 mg PO DAILY@0800 [facility] Last Admin: 04/17/18 08:43 Dose: 81 mg Bisacodyl (Dulcolax) 5 mg PO DAILY PRN PRN PRN Reason: Constipation Dextrose (D50w Syringe) 0 gm IV X1 PRN; Protocol PRN Reason: Hypoglycemia Glucagon () 1 mg IM .X1 PRN PRN Reason: Hypoglycemia Heparin Sodium (Porcine) (Heparin Na) 5,000 unit SC Q8 [facility] Last Admin: 04/17/18 12:58 Dose: 5,000 unit Piperacillin Sod/Tazobactam (Sod 3.375 gm/ Sodium Chloride) 50 mls @ 12.5 mls/hr IV Q8 [facility] Last Admin: 04/17/18 12:58 Dose: 12.5 mls/hr Insulin Human Lispro (Humalog Kwikpen (Bkc)) 0 unit SQ ACHS [facility]; Protocol Last Admin: 04/17/18 16:29 Dose: 1 u Insulin Human NPH (Humulin N (Bkc)) 38 units SC BID [facility] Last Admin: 04/17/18 08:43 Dose: 38 u Levothyroxine Sodium (Synthroid) 100 mcg PO DAILY@0600 [facility] Last Admin: 04/17/18 05:46 Dose: 100 mcg Magnesium Hydroxide (Milk Of Magnesia) 30 ml PO DAILY PRN PRN Reason: Constipation Magnesium Oxide (Mag-Ox 400) 400 mg PO BID [facility] Last Admin: 04/17/18 08:44 Dose: 400 mg Metoprolol Tartrate (Lopressor (Beta Helen)) 50 mg PO BID [facility] Last Admin: 04/17/18 08:44 Dose: 50 mg Morphine Sulfate () 2 - 4 mg IV Q2H PRN PRN PRN Reason: SEVERE PAIN (6-10/10) Morphine Sulfate () 2 - 4 mg IV Q2H PRN PRN PRN Reason: SEVERE PAIN (6-10/10) Ondansetron HCl (Zofran) 4 mg IV Q8H PRN PRN PRN Reason: NAUSEA Oxycodone HCl (Oxyir) 5 - 10 mg PO Q4H PRN PRN PRN Reason: SEVERE PAIN (6-10/10) Last Admin: 04/17/18 11:01 Dose: 10 mg Sodium Chloride () 5 - 15 ml IV UD PRN PRN Reason: SALINE FLUSH Last Admin: 04/16/18 22:05 Dose: 10 ml Medical Necessity - Tobacco Use Smoking Status: Former smoker Tobacco Use: Cigarettes Assessment/Plan All Active Problems (Last Reviewed 04/16/18 @ 16:19 by Ruth Grove PA-C) Hypercalcemia (Acute) Cholelithiasis (Acute) Perianal abscess (Acute) Perirectal abscess (Acute) 1. Hypercalcemia Ongoing, though slightly improved admission May be due to vitamin D supplementation Continue with IV fluid 2. Acute kidney injury Creatinine 1.7 from January 09, was 3.19 on admission on the fourth. Slightly improved today to 2.94 Continue with IV fluids Nephrology input appreciated 3. Left gluteal abscess Status post debridement and packing on the fourth Was noted to have some gangrene. No clinical suspicion for calciphylaxis. Wound culture from surgery grew out gram-negative meenakshi and tissue culture also showed gram-negative meenakshi plus gram-positive cocci Continue with Zosyn for potential gram-positive coverage Adjust antibiotics accordingly given culture results 4. DVT prophylaxis with heparin 5. Diabetes mellitus type 2 Uncontrolled here but his A1c is 6.7 Would continue with his current insulin regimen as it is for now Discussed with patient's mother at bedside Code Visit Inpatient E&M: [id number] Subs Hosp L2
--- NOTE | 2018-04-17 17:18 | PN_ITS ---
Patient Problems: Active and Suspected Problems (Last Reviewed 04/16/18 @ 16:19 by Ruth Grove PA-C) Hypercalcemia (Acute) Perianal abscess (Acute) Perirectal abscess (Acute) Subjective: Feels well. No new complaints. Vitals/I&O's: Vital Signs Temp Pulse Resp BP Pulse Ox 36.6 C 97 14 106/61 94 04/17/18 15:05 04/17/18 15:05 04/17/18 15:05 04/17/18 15:05 04/17/18 15:05 Oxygen Flow Rate (L/min) 2 Oxygen Delivery Method Room Air Weight: 188 kg Body Mass Index (BMI) 59.1 Finger Stick Blood Glucose 152 Intake and Output for Last 24 Hours 04/15/18 04/16/18 04/17/18 23:59 23:59 23:59 Intake Total 2444.6 / 2444.6 3030 / 3030 Output Total 600 / 600 925 / 925 Balance 1844.6 / 1844.6 2105 / 2105 General: Alert, Cooperative, No apparent distress HEENT: Atraumatic, Normocephalic Oral: Moist Mucosa, No Gingival or Mucosal Lesions/ Ulcerations Neck: No Nodes, Thyroid Normal Size and Texture Lungs: Clear to auscultation, Normal air movement, No rhonchi, No wheeze Cardiovascular: Regular rate, Regular Rhythm, Normal S1, Normal S2, No murmurs Abdomen: Bowel Sounds Present, Soft, Non Tender, Non-Distended, Obese Extremities: No edema, No Calf Tenderness Skin: - - left gluteal abscess site, packed without surrounding erythema. Psych/Mental Status: Normal Affect, Appropriate Microbiology Past 72 Hours 04/16/18 18:16 Tissue - Other Gram Stain - Final 04/16/18 18:16 Tissue - Other Wound Culture - Preliminary GNR lactose flower cheniller Gram Positive Cocci 04/16/18 18:16 Wound Abcess - Aerobic & Anaerobic Swabs Gram Stain - Final 04/16/18 18:16 Wound Abcess - Aerobic & Anaerobic Swabs Wound Culture - Preliminary GNR lactose flower cheniller Laboratory Results 04/16/18 10:55: Hemoglobin A1c 6.7 H 04/16/18 17:22: POC Glucose 156 H 04/16/18 18:27: POC Glucose 152 H 04/16/18 19:10: Sodium 136, Potassium 3.2 L, Chloride 100, Carbon Dioxide 23.0, Anion Gap 13, BUN 39 H, Creatinine 3.04 H, Estim Creat Clear Calc 32.35, Est GFR (MDRD) Af Amer 29 L, Est GFR (MDRD) Non-Af 24 L, BUN/Creatinine Ratio 12.8, Glucose 162 H, Calcium 13.5 H* 04/16/18 19:10: Magnesium 1.7 04/16/18 21:42: POC Glucose 165 H 04/16/18 22:15: Urine Creatinine 136.00 04/16/18 22:15: Urine Color Yellow, Urine Clarity Sl. Cloudy, Urine pH 5.0, Ur Specific [place] 1.025, Urine Protein 30 H, Urine Glucose (UA) 50 H, Urine Ketones 5 H, Urine Occult Blood 25 H, Urine Nitrite Negative, Urine Bilirubin Negative, Urine Urobilinogen Normal, Ur Leukocyte Esterase 25 H, Urine RBC 0-5 SEEN, Urine WBC 0-5 SEEN, Ur Squamous Epith Cells 0-5 SEEN, Amorphous Sediment 1+ URATE, Urine Bacteria Not Reportable, Hyaline Casts 0-5 SEEN, Fine Granular Casts 0-5 SEEN, Urine Mucus 0 SEEN 04/16/18 22:15: Ur Random Sodium 54 04/17/18 06:15: Sodium 136, Potassium 3.5, Chloride 102, Carbon Dioxide 23.0, Anion Gap 11, BUN 37 H, Creatinine 2.94 H, Estim Creat Clear Calc 33.45, Est GFR (MDRD) Af Amer 30 L, Est GFR (MDRD) Non-Af 25 L, BUN/Creatinine Ratio 12.6, Glucose 150 H, Calcium 13.0 H*, Phosphorus 3.3, Total Bilirubin 0.80, Direct Bilirubin 0.32 H, AST 57 H, ALT 44, Alkaline Phosphatase 157 H, Total Protein 7.7, Albumin 2.6 L, Globulin 5.1 H 04/17/18 06:15: Vit D 1,25-Dihydroxy Pending 04/17/18 06:15: Total Protein (PEP) Pending, Ur Total Protein 24 Hr Pending, Urine Total Protein Pending, Urine Albumin Pending, U Jayvj-5-Awytgovy Pending, U Cknfu-2-Nqpnkdos Pending, U Beta Globulin Pending, U Gamma Globulin Pending, IgG Pending, IgA Pending, IgM Pending, Albumin (GHASSAN) Pending, Albumin/Globulin (GHASSAN) Pending, Wvypq-3-Sohlyftmg GHASSAN Pending, Nqwca-0-Ksizmsaow GHASSAN Pending, Beta-Globulins (GHASSAN) Pending, Gamma Globulins (GHASSAN) Pending, GHASSAN M-Nabil Pending 04/17/18 06:15: WBC 4.8, RBC 3.39 L, Hgb 10.0 L, Hct 29.7 L, MCV 87.6, MCH 29.5, MCHC 33.7, RDW 14.0, RDW Differential 44.9 H, Plt Count 169, MPV 8.7, Immature G ran % (Auto) 0.800, Neut % (Auto) 74.4 H, Lymph % (Auto) 12.4 L, Cloud % (Auto) 9.5, Eos % (Auto) 2.7, Baso % (Auto) 0.2, Absolute Neuts (auto) 3.5, Absolute Lymphs (auto) 0.59 L, Total Counted Not Reportable 04/17/18 06:15: Vitamin D 25-Hydroxy 43.2 04/17/18 06:45: POC Glucose 145 H 04/17/18 10:56: POC Glucose 171 H Current Medications Aspirin (Aspirin, Baby) 81 mg PO DAILY@0800 [facility] Last Admin: 04/17/18 08:43 Dose: 81 mg Bisacodyl (Dulcolax) 5 mg PO DAILY PRN PRN PRN Reason: Constipation Dextrose (D50w Syringe) 0 gm IV X1 PRN; Protocol PRN Reason: Hypoglycemia Glucagon () 1 mg IM .X1 PRN PRN Reason: Hypoglycemia Heparin Sodium (Porcine) (Heparin Na) 5,000 unit SC Q8 [facility] Last Admin: 04/17/18 12:58 Dose: 5,000 unit Piperacillin Sod/Tazobactam (Sod 3.375 gm/ Sodium Chloride) 50 mls @ 12.5 mls/hr IV Q8 [facility] Last Admin: 04/17/18 12:58 Dose: 12.5 mls/hr Insulin Human Lispro (Humalog Kwikpen (Bkc)) 0 unit SQ ACHS [facility]; Protocol Last Admin: 04/17/18 16:29 Dose: 1 u Insulin Human NPH (Humulin N (Bkc)) 38 units SC BID [facility] Last Admin: 04/17/18 08:43 Dose: 38 u Levothyroxine Sodium (Synthroid) 100 mcg PO DAILY@0600 [facility] Last Admin: 04/17/18 05:46 Dose: 100 mcg Magnesium Hydroxide (Milk Of Magnesia) 30 ml PO DAILY PRN PRN Reason: Constipation Magnesium Oxide (Mag-Ox 400) 400 mg PO BID [facility] Last Admin: 04/17/18 08:44 Dose: 400 mg Metoprolol Tartrate (Lopressor (Beta Helen)) 50 mg PO BID [facility] Last Admin: 04/17/18 08:44 Dose: 50 mg Morphine Sulfate () 2 - 4 mg IV Q2H PRN PRN PRN Reason: SEVERE PAIN (6-10/10) Morphine Sulfate () 2 - 4 mg IV Q2H PRN PRN PRN Reason: SEVERE PAIN (6-10/10) Ondansetron HCl (Zofran) 4 mg IV Q8H PRN PRN PRN Reason: NAUSEA Oxycodone HCl (Oxyir) 5 - 10 mg PO Q4H PRN PRN PRN Reason: SEVERE PAIN (6-10/10) Last Admin: 04/17/18 11:01 Dose: 10 mg Sodium Chloride () 5 - 15 ml IV UD PRN PRN Reason: SALINE FLUSH Last Admin: 04/16/18 22:05 Dose: 10 ml Medical Necessity - Tobacco Use Smoking Status: Former smoker Tobacco Use: Cigarettes Assessment/Plan All Active Problems (Last Reviewed 04/16/18 @ 16:19 by Ruth Grove PA-C) Hypercalcemia (Acute) Cholelithiasis (Acute) Perianal abscess (Acute) Perirectal abscess (Acute) 1. Hypercalcemia Ongoing, though slightly improved admission May be due to vitamin D supplementation Continue with IV fluid 2. Acute kidney injury Creatinine 1.7 from January 09, was 3.19 on admission on the fourth. Slightly improved today to 2.94 Continue with IV fluids Nephrology input appreciated 3. Left gluteal abscess Status post debridement and packing on the fourth Was noted to have some gangrene. No clinical suspicion for calciphylaxis. Wound culture from surgery grew out gram-negative meenakshi and tissue culture also showed gram-negative meenakshi plus gram-positive cocci Continue with Zosyn for potential gram-positive coverage Adjust antibiotics accordingly given culture results 4. DVT prophylaxis with heparin 5. Diabetes mellitus type 2 Uncontrolled here but his A1c is 6.7 Would continue with his current insulin regimen as it is for now Discussed with patient's mother at bedside Code Visit Inpatient E&M: [id number] Subs Hosp L2
[2018-04-17] MEDS: 0.9% Normal Saline 1,000 ML 150 ML IV (18:04)
[2018-04-17 18:42] LABS: Bedside Glucose 153 mg/dL (70-110)
--- NOTE | 2018-04-17 19:27 | PCM.RX.CS ---
Consult Pharmacy has been consulted to manage selected antiobiotic: Vancomycin Type of Consult: New start Suspected Infection: Skin/Soft tissue Labs: Sodium 136 mmol/L (136-145) 04/17/18 06:15 Potassium 3.5 mmol/L (3.5-5.1) 04/17/18 06:15 Chloride 102 mmol/L (98-107) 04/17/18 06:15 Carbon Dioxide 23.0 mmol/L (21.0-32.0) 04/17/18 06:15 Anion Gap 11 (5-15) 04/17/18 06:15 BUN 37 mg/dL (7-18) H 04/17/18 06:15 Creatinine 2.94 mg/dL (0.70-1.30) H 04/17/18 06:15 Est GFR (MDRD) Af Amer 30 mL/min (>60) L 04/17/18 06:15 Est GFR (MDRD) Non-Af 25 mL/min (>60) L 04/17/18 06:15 BUN/Creatinine Ratio 12.6 RATIO (10-20) 04/17/18 06:15 Glucose 150 mg/dL (74-106) H 04/17/18 06:15 Microbiology: Microbiology 04/16/18 18:16 Tissue - Other Gram Stain - Final 04/16/18 18:16 Tissue - Other Wound Culture - Preliminary GNR lactose press operator meat Gram Positive Cocci 04/16/18 18:16 Wound Abcess - Aerobic & Anaerobic Swabs Gram Stain - Final 04/16/18 18:16 Wound Abcess - Aerobic & Anaerobic Swabs Wound Culture - Preliminary GNR lactose press operator meat Weight used for dosin kg Estimated Creatinine Clearance: 33 ML/MIN Goal Trough: 15-20 mcg/mL Pharmacy Plan for Drug Dosing: Give initial dose of 2000mg IV x1, then continue with 1500mg IV q24h. Obtain trough before the 3rd dose. Pharmacy Service will continue to monitor and adjust dosing as required. Follow-Up Labs: Trough Vancomycin Labs to be done on [date and time ordered]: 04/19/18 at 18:30
--- NOTE | 2018-04-17 19:30 | PHA.PHARE_ITS ---
Consult Pharmacy has been consulted to manage selected antiobiotic: Vancomycin Type of Consult: New start Suspected Infection: Skin/Soft tissue Labs: Sodium 136 mmol/L (136-145) 04/17/18 06:15 Potassium 3.5 mmol/L (3.5-5.1) 04/17/18 06:15 Chloride 102 mmol/L (98-107) 04/17/18 06:15 Carbon Dioxide 23.0 mmol/L (21.0-32.0) 04/17/18 06:15 Anion Gap 11 (5-15) 04/17/18 06:15 BUN 37 mg/dL (7-18) H 04/17/18 06:15 Creatinine 2.94 mg/dL (0.70-1.30) H 04/17/18 06:15 Est GFR (MDRD) Af Amer 30 mL/min (>60) L 04/17/18 06:15 Est GFR (MDRD) Non-Af 25 mL/min (>60) L 04/17/18 06:15 BUN/Creatinine Ratio 12.6 RATIO (10-20) 04/17/18 06:15 Glucose 150 mg/dL (74-106) H 04/17/18 06:15 Microbiology: Microbiology 04/16/18 18:16 Tissue - Other Gram Stain - Final 04/16/18 18:16 Tissue - Other Wound Culture - Preliminary GNR lactose lehr cutter Gram Positive Cocci 04/16/18 18:16 Wound Abcess - Aerobic & Anaerobic Swabs Gram Stain - Final 04/16/18 18:16 Wound Abcess - Aerobic & Anaerobic Swabs Wound Culture - Preliminary GNR lactose lehr cutter Weight used for dosin kg Estimated Creatinine Clearance: 33 ML/MIN Goal Trough: 15-20 mcg/mL Pharmacy Plan for Drug Dosing: Give initial dose of 2000mg IV x1, then continue with 1500mg IV q24h. Obtain trough before the 3rd dose. Pharmacy Service will continue to monitor and adjust dosing as required. Follow-Up Labs: Trough Vancomycin Labs to be done on [date and time ordered]: 04/19/18 at 18:30
[2018-04-17 22:16] LABS: Bedside Glucose 177 mg/dL (70-110)
[2018-04-18] VITALS (12 sets, daily range): BP systolic 107–131; BP diastolic 52–73; PULSE 89–107; RESP 16–18; TEMP 36.1–36.8; O2SAT 93–97
[2018-04-18] MEDS: 0.9% Normal Saline 1,000 ML 150 ML IV ×4 (02:30→21:47)
[2018-04-18] MEDS: Levothyroxine 100 MCG Tablet PO (06:27)
[2018-04-18] MEDS: Heparin Injection (Vial) 5,000 UNIT/ML VIAL 5000 UNIT SC ×3 (06:27→21:48)
[2018-04-18 06:47] LABS: Albumin, Serum 2.5 g/dL (3.2-5.0); BUN 28 mg/dL (7-18); BUN/Creat Ratio 10.6 RATIO (10-20); Calcium,Total 12.5 mg/dL (8.5-10.1); Chloride 106 mmol/L (98-107); Creatinine, Serum 2.64 mg/dL (0.70-1.30); EST Glomerular Filtration Rate 28 mL/min (>60); Est Glom Filt Rate - Afr Amer 34 mL/min (>60); Estimated Creatinine Clearance 37.25 ml/min; Glucose 152 mg/dL (74-106); Potassium 3.4 mmol/L (3.5-5.1); Sodium Level 139 mmol/L (136-145)
[2018-04-18 07:06] LABS: Bedside Glucose 131 mg/dL (70-110)
--- NOTE | 2018-04-18 08:19 | PCM.PN.REN ---
Patient Problems: Active and Suspected Problems (Last Reviewed 04/16/18 @ 16:19 by Ruth Grove PA-C) Hypercalcemia (Acute) Perianal abscess (Acute) Perirectal abscess (Acute) Subjective: + formed stools, no shortness of breath. No fever, chills. - Physical Exam General: Alert, Oriented x3, Cooperative, No apparent distress Lungs: Clear to auscultation Cardiovascular: Regular rate Abdomen: Soft, Non Tender, Obese Extremities: No edema Skin: Ulcer/ Wound Musculoskeletal: No Muscle Wasting Psych/Mental Status: Normal Affect, Alert and oriented to time, place, person, mood and affect Vital Signs Temp Pulse Resp BP Pulse Ox 97 F L 89 18 124/65 H 97 04/18/18 02:34 04/18/18 07:38 04/18/18 02:34 04/18/18 02:34 04/18/18 06:56 Oxygen Flow Rate (L/min) 2 Oxygen Delivery Method Room Air Weight: 189 kg Body Mass Index (BMI) 59.1 Finger Stick Blood Glucose 152 Intake and Output for Last 24 Hours 04/16/18 04/17/18 04/18/18 23:59 23:59 23:59 Intake Total 2444.6 / 2444.6 4655 / 4655 2442 / 2442 Output Total 600 / 600 1425 / 1425 Balance 1844.6 / 1844.6 3230 / 3230 2442 / 2442 Microbiology Past 72 Hours 04/16/18 18:16 Gram Stain - Final Tissue - Other Wound Culture - Preliminary GNR lactose senior javascript engineer Gram Positive Cocci 04/16/18 18:16 Gram Stain - Final Wound Abcess - Aerobic & Anaerobic Swabs Wound Culture - Preliminary GNR lactose senior javascript engineer Laboratory Tests Past 24 Hrs 04/17/18 04/18/18 04/18/18 06:15 05:35 05:35 Sodium 139 Potassium 3.4 L Chloride 106 Carbon Dioxide 24.0 BUN 28 H Creatinine 2.64 H Estim Creat Clear Calc 37.25 Est GFR (MDRD) Af Amer 34 L Est GFR (MDRD) Non-Af 28 L BUN/Creatinine Ratio 10.6 Glucose 152 H Calcium 12.5 H Phosphorus 3.0 Albumin 2.5 L Vitamin D 25-Hydroxy 43.2 PTH Intact Pending POC Glucose 04/18/18 04/17/18 04/17/18 06:58 22:03 16:26 POC Glucose 131 H 177 H 153 H 04/17/18 10:56 POC Glucose 171 H Medical Necessity - Tobacco Use Smoking Status: Former smoker Tobacco Use: Cigarettes Assessment/Plan All Active Problems (Last Reviewed 04/16/18 @ 16:19 by Ruth Grove PA-C) Hypercalcemia (Acute) Cholelithiasis (Acute) Perianal abscess (Acute) Perirectal abscess (Acute) 1. CLARENCE on CKD stage 3 likely due to dehydration, prerenal event on lisinopril at home. Creatinine 2.4 today with iv hydration. Creatinine 1.37 in June 2017, 1.7-1.8 in December 2017. Suspect underlying diabetic nephropathy. Continue to hold lisinopril and metformin. Continue with iv hydration. Avoid nephrotoxins, NSAIDs. 24h urine protein ordered by primary service pending. 2. Hypercalcemia. Hypercalcemia on vit D supplement weekly at home. Calcium normal range in December 2017. Check vit D levels, PTH, PTHrp, protein electrophoresis. May need parathyroid scan if hypercalcemia persists. 3. DMT2 on insulin and metformin. DC metformin. A1C 6.7 on 04/16/18 4. HTN stable 5. Perirectal abscess s/p I/D by Gen surgery, iv antibx. 6. Morbid obesity
[2018-04-18 08:41] LABS: PTHIN 6.6 pg/mL (18.4-80.1)
[2018-04-18] MEDS: Aspirin 81 MG TAB.CHEW PO (08:55)
--- NOTE | 2018-04-18 08:55 | PCM.PN.SRG ---
Patient Problems: Active and Suspected Problems (Last Reviewed 04/16/18 @ 16:19 by Ruth Grove PA-C) Hypercalcemia (Acute) Perianal abscess (Acute) Perirectal abscess (Acute) Subjective: Patient reports he is doing well this morning. He said he had a bowel movement yesterday and that hurt but other than that he is having no pain. - Physical Exam General: Alert, Oriented x3, Cooperative Lungs: Normal air movement Abdomen: Soft, Non Tender, Non-Distended Musculoskeletal: No Tenderness to Palpation of Joints or Extremities, No Muscle Wasting Vital Signs Temp Pulse Resp BP Pulse Ox 97 F L 89 18 124/65 H 97 04/18/18 02:34 04/18/18 07:38 04/18/18 02:34 04/18/18 02:34 04/18/18 06:56 Oxygen Flow Rate (L/min) 2 Oxygen Delivery Method Room Air Weight: 416 lb 10.778 oz Body Mass Index (BMI) 59.1 Finger Stick Blood Glucose 152 Intake and Output for Last 24 Hours 04/16/18 04/17/18 04/18/18 23:59 23:59 23:59 Intake Total 2444.6 / 2444.6 4655 / 4655 2442 / 2442 Output Total 600 / 600 1425 / 1425 Balance 1844.6 / 1844.6 3230 / 3230 2442 / 2442 Microbiology Past 72 Hours 04/16/18 18:16 Gram Stain - Final Tissue - Other Wound Culture - Preliminary Escherichia coli Enterococcus faecalis 04/16/18 18:16 Gram Stain - Final Wound Abcess - Aerobic & Anaerobic Swabs Wound Culture - Preliminary GNR lactose admission specialist Laboratory Tests Past 24 Hrs 04/17/18 04/18/18 04/18/18 06:15 05:35 05:35 Sodium 139 Potassium 3.4 L Chloride 106 Carbon Dioxide 24.0 BUN 28 H Creatinine 2.64 H Estim Creat Clear Calc 37.25 Est GFR (MDRD) Af Amer 34 L Est GFR (MDRD) Non-Af 28 L BUN/Creatinine Ratio 10.6 Glucose 152 H Calcium 12.5 H Phosphorus 3.0 Albumin 2.5 L Vitamin D 25-Hydroxy 43.2 PTH Intact 6.6 L POC Glucose 04/18/18 04/17/18 04/17/18 06:58 22:03 16:26 POC Glucose 131 H 177 H 153 H 04/17/18 10:56 POC Glucose 171 H Medical Necessity - Tobacco Use Smoking Status: Former smoker Tobacco Use: Cigarettes Assessment/Plan All Active Problems (Last Reviewed 04/16/18 @ 16:19 by Ruth Grove PA-C) Hypercalcemia (Acute) Cholelithiasis (Acute) Perianal abscess (Acute) Perirectal abscess (Acute) 42-year-old male with perirectal abscess. 1. Patient is doing well after debridement. Continue antibiotics per primary team. Cultures are growing organisms. 2. Continue twice a day packing changes. Photographs from yesterday's dressing change look good with no purulence. Dennis Molina MD Pager: [facility] [address] [place] [address], [address] [place] [phone] Office:
--- NOTE | 2018-04-18 08:58 | PN.SURG_ITS ---
Patient Problems: Active and Suspected Problems (Last Reviewed 04/16/18 @ 16:19 by Ruth Grove PA-C) Hypercalcemia (Acute) Perianal abscess (Acute) Perirectal abscess (Acute) Subjective: Patient reports he is doing well this morning. He said he had a bowel movement yesterday and that hurt but other than that he is having no pain. - Physical Exam General: Alert, Oriented x3, Cooperative Lungs: Normal air movement Abdomen: Soft, Non Tender, Non-Distended Musculoskeletal: No Tenderness to Palpation of Joints or Extremities, No Muscle Wasting Vital Signs Temp Pulse Resp BP Pulse Ox 97 F L 89 18 124/65 H 97 04/18/18 02:34 04/18/18 07:38 04/18/18 02:34 04/18/18 02:34 04/18/18 06:56 Oxygen Flow Rate (L/min) 2 Oxygen Delivery Method Room Air Weight: 416 lb 10.778 oz Body Mass Index (BMI) 59.1 Finger Stick Blood Glucose 152 Intake and Output for Last 24 Hours 04/16/18 04/17/18 04/18/18 23:59 23:59 23:59 Intake Total 2444.6 / 2444.6 4655 / 4655 2442 / 2442 Output Total 600 / 600 1425 / 1425 Balance 1844.6 / 1844.6 3230 / 3230 2442 / 2442 Microbiology Past 72 Hours 04/16/18 18:16 Gram Stain - Final Tissue - Other Wound Culture - Preliminary Escherichia coli Enterococcus faecalis 04/16/18 18:16 Gram Stain - Final Wound Abcess - Aerobic & Anaerobic Swabs 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 Laboratory Tests Past 24 Hrs 04/17/18 04/18/18 04/18/18 06:15 05:35 05:35 Sodium 139 Potassium 3.4 L Chloride 106 Carbon Dioxide 24.0 BUN 28 H Creatinine 2.64 H Estim Creat Clear Calc 37.25 Est GFR (MDRD) Af Amer 34 L Est GFR (MDRD) Non-Af 28 L BUN/Creatinine Ratio 10.6 Glucose 152 H Calcium 12.5 H Phosphorus 3.0 Albumin 2.5 L Vitamin D 25-Hydroxy 43.2 PTH Intact 6.6 L POC Glucose 04/18/18 04/17/18 04/17/18 06:58 22:03 16:26 POC Glucose 131 H 177 H 153 H 04/17/18 10:56 POC Glucose 171 H Medical Necessity - Tobacco Use Smoking Status: Former smoker Tobacco Use: Cigarettes Assessment/Plan All Active Problems (Last Reviewed 04/16/18 @ 16:19 by Ruth Grove PA-C) Hypercalcemia (Acute) Cholelithiasis (Acute) Perianal abscess (Acute) Perirectal abscess (Acute) 42-year-old male with perirectal abscess. 1. Patient is doing well after debridement. Continue antibiotics per primary team. Cultures are growing organisms. 2. Continue twice a day packing changes. Photographs from yesterday's dressing change look good with no purulence. Dennis Molina MD Pager: [facility] [address] [place] [address], [address] [place] [phone] Office:
[2018-04-18] MEDS: Insulin NPH Human 100 UNITS/ML PEN 38 UNITS SC ×2 (09:55→21:57)
[2018-04-18] MEDS: Magnesium Oxide 400 MG Tablet PO ×2 (09:57→21:49)
[2018-04-18] MEDS: Metoprolol Tartrate 50 MG Tablet PO ×2 (09:57→21:51)
[2018-04-18 10:01] LABS: Bedside Glucose 168 mg/dL (70-110)
--- NOTE | 2018-04-18 11:52 | PCM.PN.HOSP ---
Patient Problems: Active and Suspected Problems (Last Reviewed 04/16/18 @ 16:19 by Ruth Grove PA-C) Hypercalcemia (Acute) Perianal abscess (Acute) Perirectal abscess (Acute) Subjective: Feeling better. No complaints. Vitals/I&O's: Vital Signs Temp Pulse Resp BP Pulse Ox 36.7 C 102 H 16 131/52 H 94 04/18/18 09:00 04/18/18 09:57 04/18/18 09:00 04/18/18 09:57 04/18/18 09:00 Oxygen Flow Rate (L/min) 2 Oxygen Delivery Method Room Air Weight: 189 kg Body Mass Index (BMI) 59.1 Finger Stick Blood Glucose 152 Intake and Output for Last 24 Hours 04/16/18 04/17/18 04/18/18 23:59 23:59 23:59 Intake Total 2444.6 / 2444.6 4655 / 4655 2442 / 2442 Output Total 600 / 600 1425 / 1425 Balance 1844.6 / 1844.6 3230 / 3230 2442 / 2442 General: Alert, Cooperative, No apparent distress HEENT: Atraumatic, Normocephalic Oral: Moist Mucosa, No Gingival or Mucosal Lesions/ Ulcerations Neck: No Nodes, Thyroid Normal Size and Texture Lungs: Clear to auscultation, Normal air movement, No rhonchi, No wheeze Cardiovascular: Regular rate, Regular Rhythm, Normal S1, Normal S2, No murmurs Abdomen: Bowel Sounds Present, Soft, Non Tender, Non-Distended, No Hepato-splenomegaly Extremities: No edema, No Calf Tenderness Skin: - - left gluteal wound packed. no surrounding erythema. 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 Gram positive organism 04/16/18 18:16 Tissue - Other Gram Stain - Final 04/16/18 18:16 Tissue - Other Wound Culture - Preliminary Escherichia coli Enterococcus faecalis Laboratory Results 04/17/18 06:15: Ur Total Protein 24 Hr Cancelled, Urine Total Protein Cancelled, Urine Albumin Cancelled, U Gjwmk-6-Ohrxipla Cancelled, U Uofue-2-Gmsqahft Cancelled, U Beta Globulin Cancelled, U Gamma Globulin Cancelled, U PEP M-Nabil Cancelled, U PEP M-Nabil 24 Hr Cancelled, Urine Immunofixation Cancelled, Urine GHASSAN Interpret Cancelled, Ur Immunofix PEP Note Cancelled 04/17/18 16:26: POC Glucose 153 H 04/17/18 22:03: POC Glucose 177 H 04/18/18 05:35: Sodium 139, Potassium 3.4 L, Chloride 106, Carbon Dioxide 24.0, BUN 28 H, Creatinine 2.64 H, Estim Creat Clear Calc 37.25, Est GFR (MDRD) Af Amer 34 L, Est GFR (MDRD) Non-Af 28 L, BUN/Creatinine Ratio 10.6, Glucose 152 H, Calcium 12.5 H, Phosphorus 3.0, Albumin 2.5 L 04/18/18 05:35: PTH Intact 6.6 L 04/18/18 06:58: POC Glucose 131 H 04/18/18 09:48: POC Glucose 168 H Current Medications Aspirin (Aspirin, Baby) 81 mg PO DAILY@0800 [facility] Last Admin: 04/18/18 08:55 Dose: 81 mg Bisacodyl (Dulcolax) 5 mg PO DAILY PRN PRN PRN Reason: Constipation Dextrose (D50w Syringe) 0 gm IV X1 PRN; Protocol PRN Reason: Hypoglycemia Glucagon () 1 mg IM .X1 PRN PRN Reason: Hypoglycemia Heparin Sodium (Porcine) (Heparin Na) 5,000 unit SC Q8 [facility] Last Admin: 04/18/18 06:27 Dose: 5,000 unit Sodium Chloride () 1,000 mls @ 150 mls/hr IV .Q6H40M [facility] Last Admin: 04/18/18 09:55 Dose: 150 mls/hr Ampicillin Sodium/Sulbactam (Sodium 3 gm/ Sodium Chloride) 112 mls @ 150 mls/hr IV Q8 [facility] Insulin Human Lispro (Humalog Kwikpen (Bk)) 0 unit SQ ACHS [facility]; Protocol Last Admin: 04/18/18 07:02 Dose: Not Given Insulin Human NPH (Humulin N (Bkc)) 38 units SC BID [facility] Last Admin: 04/18/18 09:55 Dose: 38 u Levothyroxine Sodium (Synthroid) 100 mcg PO DAILY@0600 [facility] Last Admin: 04/18/18 06:27 Dose: 100 mcg Magnesium Hydroxide (Milk Of Magnesia) 30 ml PO DAILY PRN PRN Reason: Constipation Magnesium Oxide (Mag-Ox 400) 400 mg PO BID [facility] Last Admin: 04/18/18 09:57 Dose: 400 mg Metoprolol Tartrate (Lopressor (Beta Helen)) 50 mg PO BID [facility] Last Admin: 04/18/18 09:57 Dose: 50 mg Morphine Sulfate () 2 - 4 mg IV Q2H PRN PRN PRN Reason: SEVERE PAIN (6-10/10) Morphine Sulfate () 2 - 4 mg IV Q2H PRN PRN PRN Reason: SEVERE PAIN (6-10/10) Ondansetron HCl (Zofran) 4 mg IV Q8H PRN PRN PRN Reason: NAUSEA Oxycodone HCl (Oxyir) 5 - 10 mg PO Q4H PRN PRN PRN Reason: SEVERE PAIN (6-10/10) Last Admin: 04/17/18 22:41 Dose: 10 mg Sodium Chloride () 5 - 15 ml IV UD PRN PRN Reason: SALINE FLUSH Last Admin: 04/16/18 22:05 Dose: 10 ml Medical Necessity - Tobacco Use Smoking Status: Former smoker Tobacco Use: Cigarettes Assessment/Plan All Active Problems (Last Reviewed 04/16/18 @ 16:19 by Ruth Grove PA-C) Hypercalcemia (Acute) Cholelithiasis (Acute) Perianal abscess (Acute) Perirectal abscess (Acute) 1. Hypercalcemia Ongoing, though slightly improved admission May be due to vitamin D supplementation Continue with IV fluid 2. Acute kidney injury Improving Creatinine 1.7 from January 09, was 3.19 on admission on the fourth. Continue with IV fluids Nephrology input appreciated 3. Left gluteal abscess Status post debridement and packing on the fourth Was noted to have some gangrene. No clinical suspicion for calciphylaxis. Tissue culture growing out E. coli and Enteroccous. Wound culture GNR and GPO (likely the same) Changed to Unasyn. 4. DVT prophylaxis with heparin 5. Diabetes mellitus type 2 Uncontrolled here but his A1c is 6.7 Would continue with his current insulin regimen as it is for now Discussed with patient's mother at bedside Code Visit Inpatient E&M: [id number] Subs Hosp L2
--- NOTE | 2018-04-18 11:57 | PN_ITS ---
Patient Problems: Active and Suspected Problems (Last Reviewed 04/16/18 @ 16:19 by Ruth Grove PA-C) Hypercalcemia (Acute) Perianal abscess (Acute) Perirectal abscess (Acute) Subjective: Feeling better. No complaints. Vitals/I&O's: Vital Signs Temp Pulse Resp BP Pulse Ox 36.7 C 102 H 16 131/52 H 94 04/18/18 09:00 04/18/18 09:57 04/18/18 09:00 04/18/18 09:57 04/18/18 09:00 Oxygen Flow Rate (L/min) 2 Oxygen Delivery Method Room Air Weight: 189 kg Body Mass Index (BMI) 59.1 Finger Stick Blood Glucose 152 Intake and Output for Last 24 Hours 04/16/18 04/17/18 04/18/18 23:59 23:59 23:59 Intake Total 2444.6 / 2444.6 4655 / 4655 2442 / 2442 Output Total 600 / 600 1425 / 1425 Balance 1844.6 / 1844.6 3230 / 3230 2442 / 2442 General: Alert, Cooperative, No apparent distress HEENT: Atraumatic, Normocephalic Oral: Moist Mucosa, No Gingival or Mucosal Lesions/ Ulcerations Neck: No Nodes, Thyroid Normal Size and Texture Lungs: Clear to auscultation, Normal air movement, No rhonchi, No wheeze Cardiovascular: Regular rate, Regular Rhythm, Normal S1, Normal S2, No murmurs Abdomen: Bowel Sounds Present, Soft, Non Tender, Non-Distended, No Hepato- splenomegaly Extremities: No edema, No Calf Tenderness Skin: - - left gluteal wound packed. no surrounding erythema. 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 Gram positive organism 04/16/18 18:16 Tissue - Other Gram Stain - Final 04/16/18 18:16 Tissue - Other Wound Culture - Preliminary Escherichia coli Enterococcus faecalis Laboratory Results 04/17/18 06:15: Ur Total Protein 24 Hr Cancelled, Urine Total Protein Cancelled, Urine Albumin Cancelled, U Fimbo-1-Altpmarg Cancelled, U Rxypm-5-Upyevkrn Cancelled, U Beta Globulin Cancelled, U Gamma Globulin Cancelled, U PEP M-Nabil Cancelled, U PEP M-Nabil 24 Hr Cancelled, Urine Immunofixation Cancelled, Urine GHASSAN Interpret Cancelled, Ur Immunofix PEP Note Cancelled 04/17/18 16:26: POC Glucose 153 H 04/17/18 22:03: POC Glucose 177 H 04/18/18 05:35: Sodium 139, Potassium 3.4 L, Chloride 106, Carbon Dioxide 24.0, BUN 28 H, Creatinine 2.64 H, Estim Creat Clear Calc 37.25, Est GFR (MDRD) Af Amer 34 L, Est GFR (MDRD) Non-Af 28 L, BUN/Creatinine Ratio 10.6, Glucose 152 H, Calcium 12.5 H, Phosphorus 3.0, Albumin 2.5 L 04/18/18 05:35: PTH Intact 6.6 L 04/18/18 06:58: POC Glucose 131 H 04/18/18 09:48: POC Glucose 168 H Current Medications Aspirin (Aspirin, Baby) 81 mg PO DAILY@0800 [facility] Last Admin: 04/18/18 08:55 Dose: 81 mg Bisacodyl (Dulcolax) 5 mg PO DAILY PRN PRN PRN Reason: Constipation Dextrose (D50w Syringe) 0 gm IV X1 PRN; Protocol PRN Reason: Hypoglycemia Glucagon () 1 mg IM .X1 PRN PRN Reason: Hypoglycemia Heparin Sodium (Porcine) (Heparin Na) 5,000 unit SC Q8 [facility] Last Admin: 04/18/18 06:27 Dose: 5,000 unit Sodium Chloride () 1,000 mls @ 150 mls/hr IV .Q6H40M [facility] Last Admin: 04/18/18 09:55 Dose: 150 mls/hr Ampicillin Sodium/Sulbactam (Sodium 3 gm/ Sodium Chloride) 112 mls @ 150 mls/hr IV Q8 [facility] Insulin Human Lispro (Humalog Kwikpen (Bk)) 0 unit SQ ACHS [facility]; Protocol Last Admin: 04/18/18 07:02 Dose: Not Given Insulin Human NPH (Humulin N (Bkc)) 38 units SC BID [facility] Last Admin: 04/18/18 09:55 Dose: 38 u Levothyroxine Sodium (Synthroid) 100 mcg PO DAILY@0600 [facility] Last Admin: 04/18/18 06:27 Dose: 100 mcg Magnesium Hydroxide (Milk Of Magnesia) 30 ml PO DAILY PRN PRN Reason: Constipation Magnesium Oxide (Mag-Ox 400) 400 mg PO BID [facility] Last Admin: 04/18/18 09:57 Dose: 400 mg Metoprolol Tartrate (Lopressor (Beta Helen)) 50 mg PO BID [facility] Last Admin: 04/18/18 09:57 Dose: 50 mg Morphine Sulfate () 2 - 4 mg IV Q2H PRN PRN PRN Reason: SEVERE PAIN (6-10/10) Morphine Sulfate () 2 - 4 mg IV Q2H PRN PRN PRN Reason: SEVERE PAIN (6-10/10) Ondansetron HCl (Zofran) 4 mg IV Q8H PRN PRN PRN Reason: NAUSEA Oxycodone HCl (Oxyir) 5 - 10 mg PO Q4H PRN PRN PRN Reason: SEVERE PAIN (6-10/10) Last Admin: 04/17/18 22:41 Dose: 10 mg Sodium Chloride () 5 - 15 ml IV UD PRN PRN Reason: SALINE FLUSH Last Admin: 04/16/18 22:05 Dose: 10 ml Medical Necessity - Tobacco Use Smoking Status: Former smoker Tobacco Use: Cigarettes Assessment/Plan All Active Problems (Last Reviewed 04/16/18 @ 16:19 by Ruth Grove PA-C) Hypercalcemia (Acute) Cholelithiasis (Acute) Perianal abscess (Acute) Perirectal abscess (Acute) 1. Hypercalcemia Ongoing, though slightly improved admission May be due to vitamin D supplementation Continue with IV fluid 2. Acute kidney injury Improving Creatinine 1.7 from January 09, was 3.19 on admission on the fourth. Continue with IV fluids Nephrology input appreciated 3. Left gluteal abscess Status post debridement and packing on the fourth Was noted to have some gangrene. No clinical suspicion for calciphylaxis. Tissue culture growing out E. coli and Enteroccous. Wound culture GNR and GPO (likely the same) Changed to Unasyn. 4. DVT prophylaxis with heparin 5. Diabetes mellitus type 2 Uncontrolled here but his A1c is 6.7 Would continue with his current insulin regimen as it is for now Discussed with patient's mother at bedside Code Visit Inpatient E&M: [id number] Subs Hosp L2
[2018-04-18] MEDS: Insulin Lispro 100 UNIT/ML INSULN.PEN SQ ×3 (12:25→21:57)
[2018-04-18 12:27] LABS: Bedside Glucose 190 mg/dL (70-110)
--- NOTE | 2018-04-18 13:21 | NURSING ---
pt with all belongings packed. transferred to de with report given and no questions voiced per tremaine haji.
[2018-04-18 17:12] LABS: Bedside Glucose 155 mg/dL (70-110)
[2018-04-18] MEDS: oxyCODONE 5 MG Tablet PO (21:47)
[2018-04-18 22:11] LABS: Bedside Glucose 167 mg/dL (70-110)
[2018-04-19] VITALS (9 sets, daily range): BP systolic 113–138; BP diastolic 52–75; PULSE 91–101; RESP 16–18; TEMP 36.6–37.1; O2SAT 92–96
[2018-04-19] MEDS: Levothyroxine 100 MCG Tablet PO (05:00)
[2018-04-19] MEDS: 0.9% Normal Saline 1,000 ML 150 ML IV (05:00)
[2018-04-19] MEDS: Heparin Injection (Vial) 5,000 UNIT/ML VIAL 5000 UNIT SC ×3 (05:00→21:20)
[2018-04-19 06:46] LABS: Bedside Glucose 115 mg/dL (70-110)
[2018-04-19 08:01] LABS: Anion Gap 11 (5-15); BUN 19 mg/dL (7-18); BUN/Creat Ratio 8.2 RATIO (10-20); Calcium,Total 11.8 mg/dL (8.5-10.1); Chloride 108 mmol/L (98-107); Creatinine, Serum 2.31 mg/dL (0.70-1.30); EST Glomerular Filtration Rate 33 mL/min (>60); Est Glom Filt Rate - Afr Amer 40 mL/min (>60); Estimated Creatinine Clearance 42.57 ml/min; Glucose 106 mg/dL (74-106); Potassium 3.1 mmol/L (3.5-5.1); Sodium Level 142 mmol/L (136-145)
[2018-04-19] MEDS: Metoprolol Tartrate 50 MG Tablet PO ×2 (09:31→21:20)
[2018-04-19] MEDS: Magnesium Oxide 400 MG Tablet PO ×2 (09:31→21:23)
[2018-04-19] MEDS: Aspirin 81 MG TAB.CHEW PO (09:31)
[2018-04-19] MEDS: Insulin NPH Human 100 UNITS/ML PEN 38 UNITS SC ×2 (09:31→21:23)
--- NOTE | 2018-04-19 09:47 | CASEMGMT ---
Addendum entered by Shaquille Ovalles 04/19/18 10:27: Per Dr. Serrano, anticipate discharge tomorrow. Script for wound care supplies in front of chart. Jorge CRUZ Original Note: RN CM Note: Intro role of CM to patient in room. Per pt, plan is to return home with dressing changes. Pt states he will need script for new supplies and he believes [facility] will order supplies. Pt's mother will assist with dressing changes. F/U with wound clinic after dc. Per pt he does not anticipate any other dc needs. -Call to [facility]. Per their staff, they request script for supplies go home with pt and nurse will order supplies. Recommend pt have supplies for two days until HH nurse comes to home and wound clinic appointment on dc.(Nurse updated). Jorge CRUZ
--- NOTE | 2018-04-19 09:49 | PCM.PN.REN ---
Patient Problems: Active and Suspected Problems (Last Reviewed 04/16/18 @ 16:19 by Ruth Grove PA-C) Hypercalcemia (Acute) Perianal abscess (Acute) Perirectal abscess (Acute) Subjective: no complaints. Renal fxn and calcium continues to improve. - Physical Exam General: Alert, Oriented x3, Cooperative, No apparent distress Lungs: Clear to auscultation Cardiovascular: Regular rate Extremities: No edema Psych/Mental Status: Normal Affect, Alert and oriented to time, place, person, mood and affect Vital Signs Temp Pulse Resp BP Pulse Ox 98.3 F 97 18 121/68 H 95 04/19/18 09:25 04/19/18 09:31 04/19/18 09:25 04/19/18 09:25 04/19/18 09:25 Oxygen Flow Rate (L/min) 2 Oxygen Delivery Method Room Air Weight: 192.4 kg Body Mass Index (BMI) 59.1 Finger Stick Blood Glucose 152 Intake and Output for Last 24 Hours 04/17/18 04/18/18 04/19/18 23:59 23:59 23:59 Intake Total 4655 / 4655 5678 / 5678 1184 / 1184 Output Total 1425 / 1425 1325 / 1325 Balance 3230 / 3230 4353 / 4353 1184 / 1184 Microbiology Past 72 Hours 04/16/18 18:16 Gram Stain - Final Tissue - Other Wound Culture - Preliminary Escherichia coli Enterococcus faecalis Staphylococcus species Staphylococcus aureus Anaerobic Culture - Preliminary Checking for anaerobes, further studies to follow. 04/16/18 18:16 Gram Stain - Final Wound Abcess - Aerobic & Anaerobic Swabs Wound Culture - Final Escherichia coli Enterococcus faecalis Anaerobic Culture - Preliminary Checking for anaerobes, further studies to follow. 04/16/18 11:15 Blood Culture - Preliminary Blood Culture (Wb) - Left Hand No growth in 48 hours. 04/16/18 10:55 Blood Culture - Preliminary Blood Culture (Wb) - Anticubital Left No growth in 48 hours. Laboratory Tests Past 24 Hrs 04/17/18 04/18/18 04/19/18 06:15 08:00 05:10 Sodium Potassium Chloride Carbon Dioxide Anion Gap BUN Creatinine Estim Creat Clear Calc Est GFR (MDRD) Af Amer Est GFR (MDRD) Non-Af BUN/Creatinine Ratio Glucose Calcium Ur Total Protein 24 Hr Cancelled Pending Urine Total Protein Cancelled Pending Urine Albumin Cancelled Pending U Wwwkc-1-Ujukypvw Cancelled Pending U Ekctw-3-Kdupvjck Cancelled Pending U Beta Globulin Cancelled Pending U Gamma Globulin Cancelled Pending U PEP M-Nabil Cancelled U PEP M-Nabil 24 Hr Cancelled Urine Immunofixation Cancelled Urine GHASSAN Interpret Cancelled Ur Immunofix PEP Note Cancelled Miscellaneous Test Pending 04/19/18 07:40 Sodium 142 Potassium 3.1 L Chloride 108 H Carbon Dioxide 23.0 Anion Gap 11 BUN 19 H Creatinine 2.31 H Estim Creat Clear Calc 42.57 Est GFR (MDRD) Af Amer 40 L Est GFR (MDRD) Non-Af 33 L BUN/Creatinine Ratio 8.2 L Glucose 106 Calcium 11.8 H Ur Total Protein 24 Hr Urine Total Protein Urine Albumin U Trnih-3-Ockadmmj U Yasqt-4-Iafgihnv U Beta Globulin U Gamma Globulin U PEP M-Nabil U PEP M-Nabil 24 Hr Urine Immunofixation Urine GHASSAN Interpret Ur Immunofix PEP Note Miscellaneous Test POC Glucose 04/19/18 04/18/18 04/18/18 06:40 21:55 17:02 POC Glucose 115 H 167 H 155 H 04/18/18 04/18/18 12:18 09:48 POC Glucose 190 H 168 H Medical Necessity - Tobacco Use Smoking Status: Former smoker Tobacco Use: Cigarettes Assessment/Plan All Active Problems (Last Reviewed 04/16/18 @ 16:19 by Ruth Grove PA-C) Hypercalcemia (Acute) Cholelithiasis (Acute) Perianal abscess (Acute) Perirectal abscess (Acute) 1. CLARENCE on CKD stage 3 likely due to dehydration, prerenal event on lisinopril at home. Creatinine continues to improve with iv hydration. Creatinine 1.37 in June 2017, 1.7-1.8 in December 2017. Suspect underlying diabetic nephropathy. Continue to hold lisinopril and metformin. Continue with iv hydration. Avoid nephrotoxins, NSAIDs. 2. Hypercalcemia. Hypercalcemia on vit D supplement weekly at home. Calcium normal range in December 2017. Await results 3. DMT2 on insulin and metformin at home. DC metformin. A1C 6.7 on 04/16/18 4. HTN stable 5. Perirectal abscess s/p I/D by Gen surgery, continue antibx. 6. Morbid obesity follow up in office in 1-2 wks with renal panel.
--- NOTE | 2018-04-19 10:15 | PCM.PN.HOSP ---
Patient Problems: Active and Suspected Problems (Last Reviewed 04/16/18 @ 16:19 by Ruth Grove PA-C) Hypercalcemia (Acute) Perianal abscess (Acute) Perirectal abscess (Acute) Subjective: Feels good. No new complaints. Vitals/I&O's: Vital Signs Temp Pulse Resp BP Pulse Ox 36.8 C 97 18 121/68 H 95 04/19/18 09:25 04/19/18 09:31 04/19/18 09:25 04/19/18 09:25 04/19/18 09:25 Oxygen Flow Rate (L/min) 2 Oxygen Delivery Method Room Air Weight: 192.4 kg Body Mass Index (BMI) 59.1 Finger Stick Blood Glucose 152 Intake and Output for Last 24 Hours 04/17/18 04/18/18 04/19/18 23:59 23:59 23:59 Intake Total 4655 / 4655 5678 / 5678 1184 / 1184 Output Total 1425 / 1425 1325 / 1325 Balance 3230 / 3230 4353 / 4353 1184 / 1184 General: Alert, Cooperative, No apparent distress HEENT: Atraumatic, Normocephalic Oral: Moist Mucosa, No Gingival or Mucosal Lesions/ Ulcerations Neck: No Nodes, Thyroid Normal Size and Texture Lungs: Clear to auscultation, Normal air movement, No rhonchi, No wheeze Cardiovascular: Regular rate, Regular Rhythm, Normal S1, Normal S2, No murmurs Abdomen: Bowel Sounds Present, Soft, Non Tender, Non-Distended, No Hepato-splenomegaly Skin: - - left gluteal wound packed with clean margins. Psych/Mental Status: Normal Affect, Appropriate Microbiology Past 72 Hours 04/16/18 18:16 Tissue - Other Gram Stain - Final 04/16/18 18:16 Tissue - Other Wound Culture - Preliminary Escherichia coli Enterococcus faecalis Staphylococcus species Staphylococcus aureus 04/16/18 18:16 Tissue - Other Anaerobic Culture - Preliminary Checking for anaerobes, further studies to follow. 04/16/18 18:16 Wound Abcess - Aerobic & Anaerobic Swabs Gram Stain - Final 04/16/18 18:16 Wound Abcess - Aerobic & Anaerobic Swabs Wound Culture - Final Escherichia coli Enterococcus faecalis 04/16/18 18:16 Wound Abcess - Aerobic & Anaerobic Swabs Anaerobic Culture - Preliminary Checking for anaerobes, further studies to follow. 04/16/18 11:15 Blood Culture (Wb) - Left Hand Blood Culture - Preliminary No growth in 48 hours. 04/16/18 10:55 Blood Culture (Wb) - Anticubital Left Blood Culture - Preliminary No growth in 48 hours. Laboratory Results 04/17/18 06:15: Ur Total Protein 24 Hr Cancelled, Urine Total Protein Cancelled, Urine Albumin Cancelled, U Mytec-7-Quzpkpps Cancelled, U Svbjf-3-Xlziaqsj Cancelled, U Beta Globulin Cancelled, U Gamma Globulin Cancelled, U PEP M-Nabil Cancelled, U PEP M-Nabil 24 Hr Cancelled, Urine Immunofixation Cancelled, Urine GHASSAN Interpret Cancelled, Ur Immunofix PEP Note Cancelled 04/18/18 08:00: Ur Total Protein 24 Hr Pending, Urine Total Protein Pending, Urine Albumin Pending, U Zrbqa-4-Xbvmfcea Pending, U Ufhyk-6-Cdczircw Pending, U Beta Globulin Pending, U Gamma Globulin Pending 04/18/18 12:18: POC Glucose 190 H 04/18/18 17:02: POC Glucose 155 H 04/18/18 21:55: POC Glucose 167 H 04/19/18 05:10: Miscellaneous Test Pending 04/19/18 06:40: POC Glucose 115 H 04/19/18 07:40: Sodium 142, Potassium 3.1 L, Chloride 108 H, Carbon Dioxide 23.0, Anion Gap 11, BUN 19 H, Creatinine 2.31 H, Estim Creat Clear Calc 42.57, Est GFR (MDRD) Af Amer 40 L, Est GFR (MDRD) Non-Af 33 L, BUN/Creatinine Ratio 8.2 L, Glucose 106, Calcium 11.8 H Current Medications Aspirin (Aspirin, Baby) 81 mg PO DAILY@0800 [facility] Last Admin: 04/19/18 09:31 Dose: 81 mg Bisacodyl (Dulcolax) 5 mg PO DAILY PRN PRN PRN Reason: Constipation Dextrose (D50w Syringe) 0 gm IV X1 PRN; Protocol PRN Reason: Hypoglycemia Glucagon () 1 mg IM .X1 PRN PRN Reason: Hypoglycemia Heparin Sodium (Porcine) (Heparin Na) 5,000 unit SC Q8 [facility] Last Admin: 04/19/18 05:00 Dose: 5,000 unit Sodium Chloride () 1,000 mls @ 150 mls/hr IV .Q6H40M [facility] Last Admin: 04/19/18 05:00 Dose: 150 mls/hr Ampicillin Sodium/Sulbactam (Sodium 3 gm/ Sodium Chloride) 112 mls @ 150 mls/hr IV Q8 [facility] Last Admin: 04/19/18 05:00 Dose: 150 mls/hr Insulin Human Lispro (Humalog Kwikpen (Bkc)) 0 unit SQ ACHS [facility]; Protocol Last Admin: 04/19/18 06:42 Dose: Not Given Insulin Human NPH (Humulin N (Bkc)) 38 units SC BID [facility] Last Admin: 04/19/18 09:31 Dose: 38 u Levothyroxine Sodium (Synthroid) 100 mcg PO DAILY@0600 [facility] Last Admin: 04/19/18 05:00 Dose: 100 mcg Magnesium Hydroxide (Milk Of Magnesia) 30 ml PO DAILY PRN PRN Reason: Constipation Magnesium Oxide (Mag-Ox 400) 400 mg PO BID [facility] Last Admin: 04/19/18 09:31 Dose: 400 mg Metoprolol Tartrate (Lopressor (Beta Helen)) 50 mg PO BID [facility] Last Admin: 04/19/18 09:31 Dose: 50 mg Morphine Sulfate () 2 - 4 mg IV Q2H PRN PRN PRN Reason: SEVERE PAIN (6-10/10) Morphine Sulfate () 2 - 4 mg IV Q2H PRN PRN PRN Reason: SEVERE PAIN (6-10/10) Ondansetron HCl (Zofran) 4 mg IV Q8H PRN PRN PRN Reason: NAUSEA Oxycodone HCl (Oxyir) 5 - 10 mg PO Q4H PRN PRN PRN Reason: SEVERE PAIN (6-10/10) Last Admin: 04/18/18 21:47 Dose: 10 mg Sodium Chloride () 5 - 15 ml IV UD PRN PRN Reason: SALINE FLUSH Last Admin: 04/16/18 22:05 Dose: 10 ml Medical Necessity - Tobacco Use Smoking Status: Former smoker Tobacco Use: Cigarettes Assessment/Plan All Active Problems (Last Reviewed 04/16/18 @ 16:19 by Ruth Grove PA-C) Hypercalcemia (Acute) Cholelithiasis (Acute) Perianal abscess (Acute) Perirectal abscess (Acute) 1. Hypercalcemia Improving May be due to vitamin D supplementation Follow up with nephrology 2. Acute kidney injury Improving Creatinine 1.7 from January 09, was 3.19 on admission on the fourth. Nephrology input appreciated 3. Left gluteal abscess Status post debridement and packing on the fourth Was noted to have some gangrene. No clinical suspicion for calciphylaxis. Tissue culture growing out E. coli and Enteroccous. Now tissue culture growing Staph sp and Staph aureus. Continue Unasyn Follow up cultures on staph. 4. DVT prophylaxis with heparin 5. Diabetes mellitus type 2 Uncontrolled here but his A1c is 6.7 Would continue with his current insulin regimen as it is for now Code Visit Inpatient E&M: 81350 Subs Hosp L2
--- NOTE | 2018-04-19 10:19 | PN_ITS ---
Patient Problems: Active and Suspected Problems (Last Reviewed 04/16/18 @ 16:19 by Ruth Grove PA-C) Hypercalcemia (Acute) Perianal abscess (Acute) Perirectal abscess (Acute) Subjective: Feels good. No new complaints. Vitals/I&O's: Vital Signs Temp Pulse Resp BP Pulse Ox 36.8 C 97 18 121/68 H 95 04/19/18 09:25 04/19/18 09:31 04/19/18 09:25 04/19/18 09:25 04/19/18 09:25 Oxygen Flow Rate (L/min) 2 Oxygen Delivery Method Room Air Weight: 192.4 kg Body Mass Index (BMI) 59.1 Finger Stick Blood Glucose 152 Intake and Output for Last 24 Hours 04/17/18 04/18/18 04/19/18 23:59 23:59 23:59 Intake Total 4655 / 4655 5678 / 5678 1184 / 1184 Output Total 1425 / 1425 1325 / 1325 Balance 3230 / 3230 4353 / 4353 1184 / 1184 General: Alert, Cooperative, No apparent distress HEENT: Atraumatic, Normocephalic Oral: Moist Mucosa, No Gingival or Mucosal Lesions/ Ulcerations Neck: No Nodes, Thyroid Normal Size and Texture Lungs: Clear to auscultation, Normal air movement, No rhonchi, No wheeze Cardiovascular: Regular rate, Regular Rhythm, Normal S1, Normal S2, No murmurs Abdomen: Bowel Sounds Present, Soft, Non Tender, Non-Distended, No Hepato- splenomegaly Skin: - - left gluteal wound packed with clean margins. Psych/Mental Status: Normal Affect, Appropriate Microbiology Past 72 Hours 04/16/18 18:16 Tissue - Other Gram Stain - Final 04/16/18 18:16 Tissue - Other Wound Culture - Preliminary Escherichia coli Enterococcus faecalis Staphylococcus species Staphylococcus aureus 04/16/18 18:16 Tissue - Other Anaerobic Culture - Preliminary Checking for anaerobes, further studies to follow. 04/16/18 18:16 Wound Abcess - Aerobic & Anaerobic Swabs Gram Stain - Final 04/16/18 18:16 Wound Abcess - Aerobic & Anaerobic Swabs Wound Culture - Final Escherichia coli Enterococcus faecalis 04/16/18 18:16 Wound Abcess - Aerobic & Anaerobic Swabs Anaerobic Culture - Preliminary Checking for anaerobes, further studies to follow. 04/16/18 11:15 Blood Culture (Wb) - Left Hand Blood Culture - Preliminary No growth in 48 hours. 04/16/18 10:55 Blood Culture (Wb) - Anticubital Left Blood Culture - Preliminary No growth in 48 hours. Laboratory Results 04/17/18 06:15: Ur Total Protein 24 Hr Cancelled, Urine Total Protein Cancelled, Urine Albumin Cancelled, U Vwyax-7-Rmdjaalr Cancelled, U Alnas-4-Kfdrpcju Cancelled, U Beta Globulin Cancelled, U Gamma Globulin Cancelled, U PEP M-Nabil Cancelled, U PEP M-Nabil 24 Hr Cancelled, Urine Immunofixation Cancelled, Urine GHASSAN Interpret Cancelled, Ur Immunofix PEP Note Cancelled 04/18/18 08:00: Ur Total Protein 24 Hr Pending, Urine Total Protein Pending, U rine Albumin Pending, U Gzixj-4-Nnxjpcge Pending, U Zciss-5-Nodvxspt Pending, U Beta Globulin Pending, U Gamma Globulin Pending 04/18/18 12:18: POC Glucose 190 H 04/18/18 17:02: POC Glucose 155 H 04/18/18 21:55: POC Glucose 167 H 04/19/18 05:10: Miscellaneous Test Pending 04/19/18 06:40: POC Glucose 115 H 04/19/18 07:40: Sodium 142, Potassium 3.1 L, Chloride 108 H, Carbon Dioxide 23.0, Anion Gap 11, BUN 19 H, Creatinine 2.31 H, Estim Creat Clear Calc 42.57, Est GFR (MDRD) Af Amer 40 L, Est GFR (MDRD) Non-Af 33 L, BUN/Creatinine Ratio 8.2 L, Glucose 106, Calcium 11.8 H Current Medications Aspirin (Aspirin, Baby) 81 mg PO DAILY@0800 [facility] Last Admin: 04/19/18 09:31 Dose: 81 mg Bisacodyl (Dulcolax) 5 mg PO DAILY PRN PRN PRN Reason: Constipation Dextrose (D50w Syringe) 0 gm IV X1 PRN; Protocol PRN Reason: Hypoglycemia Glucagon () 1 mg IM .X1 PRN PRN Reason: Hypoglycemia Heparin Sodium (Porcine) (Heparin Na) 5,000 unit SC Q8 [facility] Last Admin: 04/19/18 05:00 Dose: 5,000 unit Sodium Chloride () 1,000 mls @ 150 mls/hr IV .Q6H40M [facility] Last Admin: 04/19/18 05:00 Dose: 150 mls/hr Ampicillin Sodium/Sulbactam (Sodium 3 gm/ Sodium Chloride) 112 mls @ 150 mls/hr IV Q8 [facility] Last Admin: 04/19/18 05:00 Dose: 150 mls/hr Insulin Human Lispro (Humalog Kwikpen (Bkc)) 0 unit SQ ACHS [facility]; Protocol Last Admin: 04/19/18 06:42 Dose: Not Given Insulin Human NPH (Humulin N (Bkc)) 38 units SC BID [facility] Last Admin: 04/19/18 09:31 Dose: 38 u Levothyroxine Sodium (Synthroid) 100 mcg PO DAILY@0600 [facility] Last Admin: 04/19/18 05:00 Dose: 100 mcg Magnesium Hydroxide (Milk Of Magnesia) 30 ml PO DAILY PRN PRN Reason: Constipation Magnesium Oxide (Mag-Ox 400) 400 mg PO BID [facility] Last Admin: 04/19/18 09:31 Dose: 400 mg Metoprolol Tartrate (Lopressor (Beta Helen)) 50 mg PO BID [facility] Last Admin: 04/19/18 09:31 Dose: 50 mg Morphine Sulfate () 2 - 4 mg IV Q2H PRN PRN PRN Reason: SEVERE PAIN (6-10/10) Morphine Sulfate () 2 - 4 mg IV Q2H PRN PRN PRN Reason: SEVERE PAIN (6-10/10) Ondansetron HCl (Zofran) 4 mg IV Q8H PRN PRN PRN Reason: NAUSEA Oxycodone HCl (Oxyir) 5 - 10 mg PO Q4H PRN PRN PRN Reason: SEVERE PAIN (6-10/10) Last Admin: 04/18/18 21:47 Dose: 10 mg Sodium Chloride () 5 - 15 ml IV UD PRN PRN Reason: SALINE FLUSH Last Admin: 04/16/18 22:05 Dose: 10 ml Medical Necessity - Tobacco Use Smoking Status: Former smoker Tobacco Use: Cigarettes Assessment/Plan All Active Problems (Last Reviewed 04/16/18 @ 16:19 by Ruth Grove PA-C) Hypercalcemia (Acute) Cholelithiasis (Acute) Perianal abscess (Acute) Perirectal abscess (Acute) 1. Hypercalcemia Improving May be due to vitamin D supplementation Follow up with nephrology 2. Acute kidney injury Improving Creatinine 1.7 from January 09, was 3.19 on admission on the fourth. Nephrology input appreciated 3. Left gluteal abscess Status post debridement and packing on the fourth Was noted to have some gangrene. No clinical suspicion for calciphylaxis. Tissue culture growing out E. coli and Enteroccous. Now tissue culture growing Staph sp and Staph aureus. Continue Unasyn Follow up cultures on staph. 4. DVT prophylaxis with heparin 5. Diabetes mellitus type 2 Uncontrolled here but his A1c is 6.7 Would continue with his current insulin regimen as it is for now Code Visit Inpatient E&M: 27094 Subs Hosp L2
[2018-04-19 10:41] LABS: Magnesium 1.4 mg/dL (1.6-2.6)
--- NOTE | 2018-04-19 10:43 | NURSING ---
wound photo: left inner buttock
[2018-04-19 12:07] LABS: Bedside Glucose 142 mg/dL (70-110)
[2018-04-19 13:08] LABS: Vitamin D 1,25-Dihydroxy 93.8 pg/mL (19.9-79.3)
[2018-04-19 15:57] LABS: Bedside Glucose 171 mg/dL (70-110)
[2018-04-19] MEDS: Insulin Lispro 100 UNIT/ML INSULN.PEN SQ ×2 (17:45→21:24)
[2018-04-19] MEDS: Amox/Clavulanate 875 MG Tablet PO (17:54)
[2018-04-19] MEDS: oxyCODONE 5 MG Tablet PO (21:18)
[2018-04-19 22:06] LABS: Bedside Glucose 202 mg/dL (70-110)
[2018-04-20 03:00] VITALS: BP 115/71; PULSE 90; RESP 16; TEMP 36.4; O2SAT 96
[2018-04-20] MEDS: Heparin Injection (Vial) 5,000 UNIT/ML VIAL 5000 UNIT SC (06:04)
[2018-04-20] MEDS: Levothyroxine 100 MCG Tablet PO (06:05)
[2018-04-20 06:23] LABS: Anion Gap 11 (5-15); BUN 16 mg/dL (7-18); BUN/Creat Ratio 6.8 RATIO (10-20); Calcium,Total 12.2 mg/dL (8.5-10.1); Chloride 106 mmol/L (98-107); Creatinine, Serum 2.35 mg/dL (0.70-1.30); EST Glomerular Filtration Rate 32 mL/min (>60); Est Glom Filt Rate - Afr Amer 39 mL/min (>60); Estimated Creatinine Clearance 41.85 ml/min; Glucose 165 mg/dL (74-106); Potassium 3.2 mmol/L (3.5-5.1); Sodium Level 141 mmol/L (136-145)
[2018-04-20 06:57] LABS: Bedside Glucose 144 mg/dL (70-110)
[2018-04-20 07:19] VITALS: O2SAT 95
[2018-04-20] MEDS: Magnesium Oxide 400 MG Tablet PO ×2 (08:17→08:23)
[2018-04-20] MEDS: Aspirin 81 MG TAB.CHEW PO (08:18)
[2018-04-20] MEDS: Amox/Clavulanate 875 MG Tablet PO (08:18)
[2018-04-20 08:23] VITALS: PULSE 93
[2018-04-20] MEDS: Metoprolol Tartrate 50 MG Tablet PO (08:23)
[2018-04-20] MEDS: Insulin NPH Human 100 UNITS/ML PEN 38 UNITS SC (08:37)
[2018-04-20 09:00] VITALS: BP 132/71; PULSE 93; RESP 93; TEMP 36.6; O2SAT 99
--- NOTE | 2018-04-20 09:14 | DCINST_ITS ---
- Discharge Diagnoses Current Active Problems: Current Active and Chronic Problems (Last Reviewed 04/16/18 @ 16:19 by Ruth Grove PA-C) Perianal abscess (Acute) Perirectal abscess (Acute) You will use the following diet at home:: Calorie/Carbohydrate Controlled (specify 1200, 1400, etc) - 1800 calories/day Your food should be the consistency of: Regular Your liquids should be the consistency of: Regular/Thin Discharge Activity: Return to Normal Activity Weight Bearing Status: Weight bearing as tolerated Call your doctor if your incision/area has: Continuous Slow Oozing, Sudden Incre ased Bleeding, Increased Pain/ Swelling, Increased Redness Call your doctor if you observe: Fever of 101 or Higher Cleanse incision/area with: Keep Dressing Clean & Dry Allergies/Adverse Reactions: Allergies wool Adverse Reaction (Severe, Verified 04/16/18 10:09) Hives Medications to take at Discharge Lovastatin [Mevacor] 20 mg PO QHS 03/30/15 Aspirin [Aspirin, Baby] 81 mg PO DAILY@0800 08/11/16 Insulin NPH Human Isophane [Novolin N] 38 unit SQ BID 04/05/17 Metoprolol Tartrate [Lopressor (beta es)] 50 mg PO BID 04/05/17 Levothyroxine Sodium 100 mcg PO DAILY 04/16/18 Magnesium Oxide [Magnesium] 250 mg PO TIDCM 04/16/18 Amox/Clavulanate Tablet [Augmentin Tablet] 875 mg PO BIDCM #5 tablet 04/20/18 Doxycycline 100 mg PO BID #5 capsule 04/20/18 Metformin HCl 500 mg PO DAILY #0 04/20/18 Oxycodone [Oxyir] 5 mg PO Q6H PRN 3 Days #12 tablet 04/20/18 The following prescriptions were given: Amox/Clavulanate Tablet [Augmentin Tablet] 875 mg PO BIDCM #5 tablet Doxycycline 100 mg PO BID #5 capsule Oxycodone [Oxyir] 5 mg PO Q6H PRN 3 Days #12 tablet PRN Reason: Severe Pain (6-10/10) Orders to be completed after discharge: Basic Metabolic Profile (BMP) Time Frame: 1 Week, Location: Laboratory Primary Care Physician: Linnette Xavier [Primary Care Provider] - Within 2 Weeks Test Results: Test results from this visit will be discussed in further detail at your follow- up appointment, if applicable. Please Follow Up With: wound care When: 1-2 weeks Proposed Discharge Date: 04/20/18
--- NOTE | 2018-04-20 09:14 | PCM.DC.SUM ---
Discharge Date and Diagnosis - Problem List Patient Problems: Active and Suspected Problems (Last Reviewed 04/16/18 @ 16:19 by Ruth Grove PA-C) Abscess, gluteal, left (Acute) CLARENCE (acute kidney injury) (Acute) Hypercalcemia (Acute) Date of Admission: 04/16/18 Date of Discharge: 04/20/18 - Primary Discharge Diagnosis Active and Suspected Problems (Last Reviewed 04/16/18 @ 16:19 by Ruth rGove PA-C) Abscess, gluteal, left (Acute) CLARENCE (acute kidney injury) (Acute) Hypercalcemia (Acute) - Secondary Discharge Diagnosis Chronic Problems (Last Reviewed 04/16/18 @ 16:19 by Ruth Grove PA-C) Essential (primary) hypertension (Chronic) Steatohepatitis (Chronic) Hypothyroidism (Chronic) Type 2 diabetes mellitus without complications (Chronic) Morbid obesity (Chronic) Peripheral arterial disease (Chronic) Thrombocytopenia (Chronic) Leukopenia (Chronic) Bilateral lower extremity edema (Chronic) Hospital Course and Treatment Imaging Results: Clinical Impression(s) from Imaging Studies Pelvis CT 04/16/18 10:24 IMPRESSION: Findings suggestive saline is along the upper mid medial posterior buttock. A small amount of gas is seen within the midline just catheter to the perineum. No focal abscess is seen. Electronically Signed: Jt Anderson MD at 12:40 EST , Service support , Renal Ultrasound 04/16/18 17:26 IMPRESSION: Small complex lesion in the upper pole of the right kidney which could represent a complex cyst. Solid lesion is less likely. Follow-up CT scan of the kidneys with and without contrast is recommended otherwise follow-up examination in 3 months is recommended. Electronically Signed: Ankit Carlos MD at 22:23 EST Tel , Service support , Consultations 04/16/18 17:26 Consult: Onc/Wound/electrical parts reconditioner Routine Comment: Gluteal abscess/wound 04/16/18 18:13 Consult: Onc/Wound/electrical parts reconditioner Routine Comment: Comments:: Perirectal abscess s/p debridement Operations: None Procedures: None Summary of Care Provided: The patient is a 42 year old M resents with gluteal pain. Patient was found to have a left gluteal abscess. He underwent incision and drainage on the same day, on the fourth. 1. Hypercalcemia Improved May be due to vitamin D supplementation Follow up with nephrology Follow up outpt. 2. Acute kidney injury Improving Creatinine 1.7 from January 09, was 3.19 on admission on the fourth. Stable Follow up with nephrology 3. Left gluteal abscess Status post debridement and packing on the fourth Was noted to have some gangrene. No clinical suspicion for calciphylaxis. Tissue culture growing out E. coli and Enteroccous and Staph lugdunesis and MSSA Will discharge with 5 more days of Augmentin and Doxycyline Mother to perform wound care at home with [facility]. 4. Diabetes mellitus type 2 Uncontrolled here but his A1c is 6.7 Would continue with his current insulin regimen as it is for now resume metformin, but cut back to 500 daily (down from 1000mg BID) given CLARENCE. [] Patient Problems: Active and Suspected Problems (Last Reviewed 04/16/18 @ 16:19 by Ruth Grove PA-C) Abscess, gluteal, left (Acute) CLARENCE (acute kidney injury) (Acute) Hypercalcemia (Acute) - Physical Exam General: Alert, No apparent distress HEENT: Atraumatic, Normocephalic Oral: Moist Mucosa, No Gingival or Mucosal Lesions/ Ulcerations Skin: - - Left gluteal wound clean and intact. Red healing base. No purulence noted no surrounding erythema. Vital Signs Temp Pulse Resp BP Pulse Ox 36.4 C L 93 16 115/71 95 04/20/18 03:00 04/20/18 08:23 04/20/18 03:00 04/20/18 03:00 04/20/18 07:19 Oxygen Flow Rate (L/min) 2 Oxygen Delivery Method Room Air Weight: 192.4 kg Body Mass Index (BMI) 59.1 Finger Stick Blood Glucose 152 Intake and Output for Last 24 Hours 04/18/18 04/19/18 04/20/18 23:59 23:59 23:59 Intake Total 5678 / 5678 2799 / 2799 1200 / 1200 Output Total 1325 / 1325 1400 / 1400 900 / 900 Balance 4353 / 4353 1399 / 1399 300 / 300 Microbiology Past 72 Hours 04/16/18 18:16 Gram Stain - Final Tissue - Other Wound Culture - Final Escherichia coli Enterococcus faecalis Staphylococcus lugdunensis Staphylococcus aureus Anaerobic Culture - Preliminary Checking for anaerobes, further studies to follow. 04/16/18 18:16 Gram Stain - Final Wound Abcess - Aerobic & Anaerobic Swabs Wound Culture - Final Escherichia coli Enterococcus faecalis Anaerobic Culture - Preliminary Checking for anaerobes, further studies to follow. 04/16/18 11:15 Blood Culture - Preliminary Blood Culture (Wb) - Left Hand No growth in 48 hours. 04/16/18 10:55 Blood Culture - Preliminary Blood Culture (Wb) - Anticubital Left No growth in 48 hours. Laboratory Tests Past 24 Hrs 04/17/18 04/19/18 04/20/18 06:15 07:40 05:54 Sodium 141 Potassium 3.2 L Chloride 106 Carbon Dioxide 24.0 Anion Gap 11 BUN 16 Creatinine 2.35 H Estim Creat Clear Calc 41.85 Est GFR (MDRD) Af Amer 39 L Est GFR (MDRD) Non-Af 32 L BUN/Creatinine Ratio 6.8 L Glucose 165 H Calcium 12.2 H Magnesium 1.4 L Vit D 1,25-Dihydroxy 93.8 H POC Glucose 04/20/18 04/19/18 04/19/18 06:51 21:22 15:52 POC Glucose 144 H 202 H 171 H 04/19/18 11:59 POC Glucose 142 H Discharge Diet: 1800 Calorie Control Diet Discharge Activity: Return to Normal Activity Weight Bearing Status: Weight bearing as tolerated Call your doctor if your incision/area has: Continuous Slow Oozing, Sudden Increased Bleeding, Increased Pain/ Swelling, Increased Redness Call your doctor if you observe: Fever of 101 or Higher Cleanse incision/area with: Keep Dressing Clean & Dry Home Medications: Medications to take at Discharge Lovastatin [Mevacor] 20 mg PO QHS 03/30/15 Aspirin [Aspirin, Baby] 81 mg PO DAILY@0800 08/11/16 Insulin NPH Human Isophane [Novolin N] 38 unit SQ BID 04/05/17 Metoprolol Tartrate [Lopressor (beta es)] 50 mg PO BID 04/05/17 Levothyroxine Sodium 100 mcg PO DAILY 04/16/18 Magnesium Oxide [Magnesium] 250 mg PO TIDCM 04/16/18 Amox/Clavulanate Tablet [Augmentin Tablet] 875 mg PO BIDCM #5 tablet 04/20/18 Doxycycline 100 mg PO BID #5 capsule 04/20/18 Metformin HCl 500 mg PO DAILY #0 04/20/18 Oxycodone [Oxyir] 5 mg PO Q6H PRN 3 Days #12 tablet 04/20/18 Following Prescrptions Were Given to Patient: Amox/Clavulanate Tablet [Augmentin Tablet] 875 mg PO BIDCM #5 tablet Doxycycline 100 mg PO BID #5 capsule Oxycodone [Oxyir] 5 mg PO Q6H PRN 3 Days #12 tablet PRN Reason: Severe Pain (-12/20) Other Amb Orders: Basic Metabolic Profile (BMP) Time Frame: 1 Week, Location: Laboratory Primary Care Physician: Linnette Xavier [Primary Care Provider] - Within 2 Weeks Please Follow Up With: wound care When: 1-2 weeks Disposition: Home with Home Health Minutes spent on discharge:: 35 Patient Condition:: Good Medical Necessity - Tobacco Use Smoking Status: Former smoker Tobacco Use: Cigarettes Meaningful Use Info Meaningful Use Diagnoses (Choose all that apply): None applicable Code Visit Inpatient E&M: 56290 Disch Hosp
--- NOTE | 2018-04-20 09:19 | DS.PCM_ITS ---
Discharge Date and Diagnosis - Problem List Patient Problems: Active and Suspected Problems (Last Reviewed 04/16/18 @ 16:19 by Ruth Grove PA-C) Abscess, gluteal, left (Acute) CLARENCE (acute kidney injury) (Acute) Hypercalcemia (Acute) Date of Admission: 04/16/18 Date of Discharge: 04/20/18 - Primary Discharge Diagnosis Active and Suspected Problems (Last Reviewed 04/16/18 @ 16:19 by Ruth Grove PA-C) Abscess, gluteal, left (Acute) CLARENCE (acute kidney injury) (Acute) Hypercalcemia (Acute) - Secondary Discharge Diagnosis Chronic Problems (Last Reviewed 04/16/18 @ 16:19 by Ruth Grove PA-C) Essential (primary) hypertension (Chronic) Steatohepatitis (Chronic) Hypothyroidism (Chronic) Type 2 diabetes mellitus without complications (Chronic) Morbid obesity (Chronic) Peripheral arterial disease (Chronic) Thrombocytopenia (Chronic) Leukopenia (Chronic) Bilateral lower extremity edema (Chronic) Hospital Course and Treatment Imaging Results: Clinical Impression(s) from Imaging Studies Pelvis CT 04/16/18 10:24 IMPRESSION: Findings suggestive saline is along the upper mid medial posterior buttock. A small amount of gas is seen within the midline just catheter to the perineum. No focal abscess is seen. Electronically Signed: Jt Anderson MD at 12:40 EST , Service support , Renal Ultrasound 04/16/18 17:26 IMPRESSION: Small complex lesion in the upper pole of the right kidney which could represent a complex cyst. Solid lesion is less likely. Follow-up CT scan of the kidneys with and without contrast is recommended otherwise follow-up examination in 3 months is recommended. Electronically Signed: Ankit Carlos MD at 22:23 EST Tel , Service support , Consultations 04/16/18 17:26 Consult: Onc/Wound/intel analyst Routine Comment: Gluteal abscess/wound 04/16/18 18:13 Consult: Onc/Wound/intel analyst Routine Comment: Comments:: Perirectal abscess s/p debridement Operations: None Procedures: None Summary of Care Provided: The patient is a 42 year old M resents with gluteal pain. Patient was found to have a left gluteal abscess. He underwent incision and drainage on the same day, on the fourth. 1. Hypercalcemia Improved May be due to vitamin D supplementation Follow up with nephrology Follow up outpt. 2. Acute kidney injury Improving Creatinine 1.7 from January 09, was 3.19 on admission on the fourth. Stable Follow up with nephrology 3. Left gluteal abscess Status post debridement and packing on the fourth Was noted to have some gangrene. No clinical suspicion for calciphylaxis. Tissue culture growing out E. coli and Enteroccous and Staph lugdunesis and MSSA Will discharge with 5 more days of Augmentin and Doxycyline Mother to perform wound care at home with [facility]. 4. Diabetes mellitus type 2 Uncontrolled here but his A1c is 6.7 Would continue with his current insulin regimen as it is for now resume metformin, but cut back to 500 daily (down from 1000mg BID) given CLARENCE. [] Patient Problems: Active and Suspected Problems (Last Reviewed 04/16/18 @ 16:19 by Ruth Grove PA-C) Abscess, gluteal, left (Acute) CLARENCE (acute kidney injury) (Acute) Hypercalcemia (Acute) - Physical Exam General: Alert, No apparent distress HEENT: Atraumatic, Normocephalic Oral: Moist Mucosa, No Gingival or Mucosal Lesions/ Ulcerations Skin: - - Left gluteal wound clean and intact. Red healing base. No purulence noted no surrounding erythema. Vital Signs Temp Pulse Resp BP Pulse Ox 36.4 C L 93 16 115/71 95 04/20/18 03:00 04/20/18 08:23 04/20/18 03:00 04/20/18 03:00 04/20/18 07:19 Oxygen Flow Rate (L/min) 2 Oxygen Delivery Method Room Air Weight: 192.4 kg Body Mass Index (BMI) 59.1 Finger Stick Blood Glucose 152 Intake and Output for Last 24 Hours 04/18/18 04/19/18 04/20/18 23:59 23:59 23:59 Intake Total 5678 / 5678 2799 / 2799 1200 / 1200 Output Total 1325 / 1325 1400 / 1400 900 / 900 Balance 4353 / 4353 1399 / 1399 300 / 300 Microbiology Past 72 Hours 04/16/18 18:16 Gram Stain - Final Tissue - Other Wound Culture - Final Escherichia coli Enterococcus faecalis Staphylococcus lugdunensis Staphylococcus aureus Anaerobic Culture - Preliminary Checking for anaerobes, further studies to follow. 04/16/18 18:16 Gram Stain - Final Wound Abcess - Aerobic & Anaerobic Swabs Wound Culture - Final Escherichia coli Enterococcus faecalis Anaerobic Culture - Preliminary Checking for anaerobes, further studies to follow. 04/16/18 11:15 Blood Culture - Preliminary Blood Culture (Wb) - Left Hand No growth in 48 hours. 04/16/18 10:55 Blood Culture - Preliminary Blood Culture (Wb) - Anticubital Left No growth in 48 hours. Laboratory Tests Past 24 Hrs 04/17/18 04/19/18 04/20/18 06:15 07:40 05:54 Sodium 141 Potassium 3.2 L Chloride 106 Carbon Dioxide 24.0 Anion Gap 11 BUN 16 Creatinine 2.35 H Estim Creat Clear Calc 41.85 Est GFR (MDRD) Af Amer 39 L Est GFR (MDRD) Non-Af 32 L BUN/Creatinine Ratio 6.8 L Glucose 165 H Calcium 12.2 H Magnesium 1.4 L Vit D 1,25-Dihydroxy 93.8 H POC Glucose 04/20/18 04/19/18 04/19/18 06:51 21:22 15:52 POC Glucose 144 H 202 H 171 H 04/19/18 11:59 POC Glucose 142 H Discharge Diet: 1800 Calorie Control Diet Discharge Activity: Return to Normal Activity Weight Bearing Status: Weight bearing as tolerated Call your doctor if your incision/area has: Continuous Slow Oozing, Sudden Increased Bleeding, Increased Pain/ Swelling, Increased Redness Call your doctor if you observe: Fever of 101 or Higher Cleanse incision/area with: Keep Dressing Clean & Dry Home Medications: Medications to take at Discharge Lovastatin [Mevacor] 20 mg PO QHS 03/30/15 Aspirin [Aspirin, Baby] 81 mg PO DAILY@0800 08/11/16 Insulin NPH Human Isophane [Novolin N] 38 unit SQ BID 04/05/17 Metoprolol Tartrate [Lopressor (beta es)] 50 mg PO BID 04/05/17 Levothyroxine Sodium 100 mcg PO DAILY 04/16/18 Magnesium Oxide [Magnesium] 250 mg PO TIDCM 04/16/18 Amox/Clavulanate Tablet [Augmentin Tablet] 875 mg PO BIDCM #5 tablet 04/20/18 Doxycycline 100 mg PO BID #5 capsule 04/20/18 Metformin HCl 500 mg PO DAILY #0 04/20/18 Oxycodone [Oxyir] 5 mg PO Q6H PRN 3 Days #12 tablet 04/20/18 Following Prescrptions Were Given to Patient: Amox/Clavulanate Tablet [Augmentin Tablet] 875 mg PO BIDCM #5 tablet Doxycycline 100 mg PO BID #5 capsule Oxycodone [Oxyir] 5 mg PO Q6H PRN 3 Days #12 tablet PRN Reason: Severe Pain (-12/20) Other Amb Orders: Basic Metabolic Profile (BMP) Time Frame: 1 Week, Location: Laboratory Primary Care Physician: Linnette Xavier [Primary Care Provider] - Within 2 Weeks Please Follow Up With: wound care When: 1-2 weeks Disposition: Home with Home Health Minutes spent on discharge:: 35 Patient Condition:: Good Medical Necessity - Tobacco Use Smoking Status: Former smoker Tobacco Use: Cigarettes Meaningful Use Info Meaningful Use Diagnoses (Choose all that apply): None applicable Code Visit Inpatient E&M: 69217 Disch Hosp
--- NOTE | 2018-04-20 11:16 | NURSING ---
In to show mother how to perform the left inner buttock dressing change. mother had been assisting with the abdominal dressing so she states she feels comfortable with the buttock wound as well. script for supplies had been written, and patient does have home health arranged as well. pt and mother deny questions. pt tolerated dressing change well. the small tunneling area is nearly filled in now.
[2018-04-20 11:37] LABS: Bedside Glucose 140 mg/dL (70-110)
--- NOTE | 2018-04-20 12:33 | CASEMGMT ---
RN CM Note: Pt to dc home today. has supplies for dressing changes and script to give to Home Care nurse. Call to [facility]- they will resume care. DC Summary, instructions and wound nurse notes faxed. Jorge VENTURA RN AC
[2018-04-20 14:07] LABS: Albumin, Ur 16.1 % (.); Alpha-1-Globulin, Ur 4.1 % (.); Alpha-2-Globulins, Ur 23.6 % (.); Beta Globulin, Ur 23.6 % (.); Gamma Globulin, Ur 32.6 % (.); M-Spike, Ur % Not Observed % (Not Observed); Protein, 24Ur 732 mg/24 hr (30-150); Total Protein, Ur 23.6 mg/dL (Not Estab.)
--- NOTE | 2018-04-23 15:32 | CASEMGMT ---
FRANSISCA THOMAS DC Phone Call DC DATE: 04/20/18 DC DISPOSITION: HOME LACE/STRATA: 24/06 Intro role of CM to patient's mother via phone. She is assisting him with care and dressing changes. Per pt's mother, he is doing well. home Health nurse saw him on Monday, and will be coming tomorrow. Phone number for wound center given to her to call for f/u. She states she does not need assistance with this. No further questions. Jorge HARDINGN RN ACM
== END 2018-04-20 11:50 | disposition home health service (06) | DRG 383 ==
LOC: ED 11:23 → PCU 16:01 → MS2 04-18 13:37
PROVIDERS: Internal Medicine Nephrology; Surgery; Admitting Provider Internal Medicine; Emergency Provider Emergency Medicine
PROC: 0JB90ZZ Excision of Buttock Subcutaneous Tissue and Fascia, Open Approach (ICD-10-PCS; principal; 2018-04-16 17:00)
DX: L02.31 Cutaneous abscess of buttock (principal); E66.01 Morbid (severe) obesity due to excess calories; Z68.43 Body mass index [BMI] 50.0-59.9, adult; E03.9 Hypothyroidism, unspecified; E78.5 Hyperlipidemia, unspecified; E83.52 Hypercalcemia; E87.6 Hypokalemia; I96 Gangrene, not elsewhere classified; E55.9 Vitamin D deficiency, unspecified; N17.9 Acute kidney failure, unspecified; K75.81 Nonalcoholic steatohepatitis (NASH); I73.9 Peripheral vascular disease, unspecified; E11.65 Type 2 diabetes mellitus with hyperglycemia; B96.20 Unspecified Escherichia coli [E. coli] as the cause of diseases classified elsewhere; B95.61 Methicillin susceptible Staphylococcus aureus infection as the cause of diseases classified elsewhere; Z90.49 Acquired absence of other specified parts of digestive tract; Z87.891 Personal history of nicotine dependence; Z79.4 Long term (current) use of insulin; B95.7 Other staphylococcus as the cause of diseases classified elsewhere; B95.2 Enterococcus as the cause of diseases classified elsewhere; I12.9 Hypertensive chronic kidney disease with stage 1 through stage 4 chronic kidney disease, or unspecified chronic kidney disease; E11.22 Type 2 diabetes mellitus with diabetic chronic kidney disease; N18.3 Chronic kidney disease, stage 3 (moderate)
CPT/HCPCS: 36415; 72192; 76770; 80048; 80053; 80069; 80076; 81001; 82306; 82570; 82652; 82784; 82962; 83036; 83735; 83970; 84100; 84165; 84166; 84300; 85025; 86334; 86335; 87040; 87070; 87075; 87076; 87077; 87186; 87205; 88304; 88305; 88312; 97802; 99283; J7030; J7040; A4216; J0295; J2405

== ENCOUNTER → 2018-07-17 09:20 | Outpatient (CLI) | payer MEDICAID, SELFPAY ==
[2018-04-16 20:04] VITALS: BMI 59.1
--- NOTE | 2018-07-17 09:23 | NM_ITS ---
CLINICAL: 43-year-old male with reported history of hypercalcemia. 99m Tc SESTAMIBI DUAL PHASE PARATHYROID SCINTIGRAPHY COMPARISON: Thyroid ultrasound report 11/24/2017. FINDINGS: Following the intravenous administration of 26.3 mCi of 99m Tc sestamibi, image acquisitions of the anterior neck at 20 minutes and 2.0 hours post radiopharmaceutical provision reveal: 1. Immediate static blood pool acquisitions demonstrate distribution of the radiopharmaceutical in the right-left thyroid colloid. 2. Delayed images depict symmetric washout of the radiotracer in the distribution of the right-left thyroid beds without evidence of focal retention of the radiopharmaceutical readily identified. NM/Parathyroid Scan IMPRESSION: 1. NEGATIVE 99m Tc SESTAMIBI PARATHYROID IMAGING DUAL PHASE EXAMINATION. 2. There is no definitive scintigraphic evidence of parathyroid adenoma on the current examination. Electronically Signed: Jose Eduardo Crooks DO at 23:26 EDT Tel , Service support ,
--- NOTE | 2018-07-17 10:13 | US_ITS ---
STUDY: THYROID ULTRASOUND REASON FOR EXAM: Male, 43 years old. Hypothyroidism. Patient currently on levothyroxine TECHNIQUE: Ultrasound evaluation of the thyroid was performed with real-time and static howard-scale imaging. COMPARISON: None. FINDINGS: RIGHT LOBE: The right lobe of the thyroid gland measures 5 x 1.8 x 1.7 cm. There is a heterogeneous echotexture. There are no demonstrated solid, cystic or complex lesions. LEFT LOBE: The left lobe of the thyroid gland measures 4.6 x 1.6 x 1.7 cm. There is a heterogeneous echotexture. There are no demonstrated solid, cystic or complex lesions. ISTHMUS: The isthmus measures 0.4 cm. The regional lymph nodes are normal. US/Thyroid IMPRESSION: Heterogeneous echotexture diffusely. No concerning masses or nodules. Electronically Signed: Ludwin Rocha DO at 12:38 EDT Tel , Service support ,
== END ==
DX: E03.9 Hypothyroidism, unspecified (principal)
CPT/HCPCS: 76536; 78070; A9500

== ENCOUNTER 2018-07-21 09:03 | Emergency (ER) | payer MEDICAID, SELFPAY ==
[2018-04-16 20:04] VITALS: BMI 59.1
[2018-07-21 09:04] VITALS: BP 120/87; PULSE 102; RESP 18; TEMP 36.6; O2SAT 98; BMI 54.3
[2018-07-21 10:34] LABS: Mucous, Urine 0 SEEN /hpf (<or=2+); Squamous Epithelial Cells - UA 0 SEEN /hpf (0-5)
[2018-07-21 10:36] LABS: Bedside Glucose 269 mg/dL (70-110)
[2018-07-21 10:40] LABS: Color, Urine Yellow (Yellow); Glucose, Dipstick 1000 mg/dl (Normal); Ketone-Dipstick 5 mg/dl (Negative); Leukocyte Esterase-Dipstick 500 /ul (Negative); Nitrite-Dipstick Negative (Negative); Occult Blood-Urine 250 /ul (Negative); Protein-Dipstick 100 mg/dl (Negative); Specific Gravity, Urine 1.025 (1.002-1.030); Urine Bilirubin Dipstick Negative (Negative); Urine Clarity Cloudy (Clear); Urine Urobilinogen Normal (Normal)
--- NOTE | 2018-07-21 10:47 | ED.VISSUMM ---
- ER Visit Summary Date of Service: 07/21/18 Chief Complaint: Urinary frequency and urgency History of Present Illness: The patient is a 43 M presenting with urinary frequency and urgency. He denies dysuria. Denies incontinence. He denies fever. Denies abdominal pain, nausea, vomiting. States he checked his blood sugar 3 or 4 days ago and it was 135. He has a yeast infection that is currently improving with topical antifungals. He denies testicular pain, penile discharge. Denies other complaints. Physical Examination: Vitals are stable. Patient is afebrile. Alert no acute distress. HEENT exam is unremarkable. Neck is supple. Lungs are clear and equal bilaterally. Heart is regular tachycardic Abdomen is soft nontender nondistended. Erythema to the groin with fungal rash. No penile discharge. No testicular tenderness. Extremities are unremarkable. Skin is warm and dry. No focal neurologic deficit. Remainder of exam is unremarkable. Emergency Department Course and Treatment: BGT 269. Patient given IV fluids. Chemistries show sodium 129, glucose 245, BUN 20, creatinine 2.42. This is near his baseline. Urinalysis shows over 100 white blood cells, 25-50 white blood cells, positive glucose. Urine culture was sent. Patient was given Keflex and a prescription for Keflex. He is advised to follow up with his primary care physician. Advised return to ED for worsening symptoms. Disposition: Discharge home Impression: Hyperglycemia, UTI This note was generated with [employer] dictation software. It may contain incorrect words, spelling, and punctuation that were not noted in review of the chart prior to signing ED Disposition - Plan for ED Patient: Referrals: Alberto Riley,Linnette Pierre [Primary Care Provider] -
[2018-07-21 10:53] LABS: White Blood Cells >100 SEEN /hpf (0-5)
[2018-07-21 10:54] LABS: Bacteria 4+ /hpf (None Seen); Hyaline Cast 0-5 SEEN /lpf (0-5)
[2018-07-21 10:57] LABS: Red Blood Cells-Urine 25-50 SEEN /hpf (0-5)
[2018-07-21] MEDS: 0.9% Normal Saline 1,000 ML 999 ML IV (11:17)
[2018-07-21 12:01] LABS: Anion Gap 7 (5-15); BUN 20 mg/dL (7-18); BUN/Creat Ratio 8.3 RATIO (10-20); Calcium,Total 10.5 mg/dL (8.5-10.1); Chloride 101 mmol/L (98-107); Creatinine, Serum 2.42 mg/dL (0.70-1.30); EST Glomerular Filtration Rate 31 mL/min (>60); Est Glom Filt Rate - Afr Amer 38 mL/min (>60); Estimated Creatinine Clearance 40.22 ml/min; Glucose 245 mg/dL (74-106); Potassium 3.5 mmol/L (3.5-5.1); Sodium Level 129 mmol/L (136-145)
--- NOTE | 2018-07-21 12:51 | ED.DEP ---
ED Disposition - Plan for ED Patient: Instructions: ED UTI Cystitis Male Prescriptions: Cephalexin [Keflex] 500 mg PO Q6 #40 capsule Referrals: [facility] Osvaldo,Linnette Pierre [Primary Care Provider] -
[2018-07-21] MEDS: Cephalexin 250 MG Capsule 500 MG PO (13:17)
[2018-07-21 13:26] VITALS: BP 115/69; PULSE 85; RESP 16; O2SAT 97
== END 2018-07-21 13:27 | disposition home or self-care (01) ==
LOC: ED 09:47
PROVIDERS: Emergency Provider Emergency Medicine
DX: N39.0 Urinary tract infection, site not specified (principal); E11.65 Type 2 diabetes mellitus with hyperglycemia; I10 Essential (primary) hypertension; E78.00 Pure hypercholesterolemia, unspecified
CPT/HCPCS: 36415; 80048; 81001; 82962; 87086; 87088; 87186; 96360; 99284; J7030; A4216

== ENCOUNTER → 2018-12-06 14:24 | Outpatient (CLI) | payer MEDICAID, SELFPAY ==
[2018-11-06 13:53] VITALS: BMI 56.8
[2018-12-06 15:25] LABS: Absolute Lymphocyte Count 1.13 X10^3/uL (0.83-4.51); Basophil# 0.04 X10^3/uL; Basophil% 0.7 % (0-1); Eosinophil# 0.22 X10^3/uL; Eosinophils% 3.8 % (0-5); Hematocrit 41.9 % (40-54); Hemoglobin 14.9 g/dL (13.0-16.5); Lymphocyte # 1.13 X10^3/ul (4.0); Lymphocyte % 19.3 % (19-41); Mean Corp Hgb Conc 35.6 g/dL (32-36); Mean Corpuscular Hgb 31.2 pg (27.0-32.0); Mean Corpuscular Volume 87.7 fL (80-94); Mean Platelet Vol. 9.1 fl (6.2-12.0); Monocyte% 6.8 % (0-10); NRBC Flagged by Analyzer 0 % (0-5); Neutrophil # 4.02 X10^3/uL (2.7-7.7); Neutrophil % 68.9 % (47-70); Platelet Count 143 K/mm3 (150-450); RBC Distribution Width CV 13.9 % (11.6-14.6); RBC Distribution Width SD 44.1 fl (35.1-43.9); Red Blood Count 4.78 M/mm3 (4.6-6.2); White Blood Count 5.8 K/mm3 (4.4-11.0)
[2018-12-06 15:34] LABS: International Normalized Ratio 1.1; Prothrombin Time (Protime)PT. 14.4 SECONDS (11.7-14.9)
[2018-12-06 15:35] LABS: Partial Thromboplast Time 30.4 Seconds (24.1-36.2)
[2018-12-06 16:05] LABS: ALB/GLOB Ratio 0.8 RATIO (0.9-2.4); AST(SGOT) 56 U/L (15-37); Alanine Aminotransfer ALT/SGPT 42 U/L (16-61); Albumin, Serum 3.9 g/dL (3.2-5.0); Alkaline Phosphatase 204 U/L (45-117); Anion Gap 10 (5-15); BUN 22 mg/dL (7-18); BUN/Creat Ratio 13.3 RATIO (10-20); Bilirubin, Direct 0.28 mg/dL (0.00-0.30); Calcium,Total 9.4 mg/dL (8.5-10.1); Chloride 104 mmol/L (98-107); Cholesterol 174 mg/dL (200); Creatinine, Serum 1.66 mg/dL (0.70-1.30); EST Glomerular Filtration Rate 48 mL/min (>60); Est Glom Filt Rate - Afr Amer 58 mL/min (>60); Ferritin 88 ng/mL (26-388); GGTP 81 U/L (15-85); Globulin 4.6 g/dL (2.2-4.2); Glucose 291 mg/dL (74-106); High Density Lipoprotein 34 mg/dL; Iron 124 ug/dL (65-175); Iron Binding Capacity,Total 309 ug/dL (250-450); PERCENT IRON SATURATION 40.1 % (15.0-55.0); Potassium 4.1 mmol/L (3.5-5.1); Protein, Total 8.5 g/dL (6.4-8.2); Sodium Level 135 mmol/L (136-145); T4 Total, Thyroxin 12.8 ug/dL (4.5-12.1); Thyroid Stim Hormone (TSH) 6.05 uIU/mL (0.358-3.74); Triglycerides 176 mg/dL; Very Low Density Lipoprotein 35 mg/dL (5-40)
[2018-12-07 10:00] LABS: Hepatitis B Surface Antibody Non-Reactive; Hepatitis B Surface Antigen Non-Reactive (Nonreactive); Hepatitis C Antibody Non-Reactive (Nonreactive); Vitamin B12 625 pg/mL (211-911); Vitamin D,25 Hydroxy 21.4 ng/mL (29.95-100.01)
[2018-12-10 12:07] LABS: ANTINUCLEAR ANTIBODIES DIRECT Negative (Negative)
[2018-12-10 12:30] LABS: Alpha Antitrypsin Serum 152 mg/dL (90-200); Anti-Mitochondrial AB <20.0 Units (0.0-20.0)
[2018-12-10 20:07] LABS: Ceruloplasmin 34.3 mg/dL (16.0-31.0); Immunoglobulin A 552 mg/dL (90-386); PROEL- A/G Ratio 0.9 (0.7-1.7); PROEL- Albumin 3.9 g/dL (2.9-4.4); PROEL- Alpha-1 Globulin 0.3 g/dL (0.0-0.4); PROEL- Alpha-2 Globulin 0.7 g/dL (0.4-1.0); PROEL- Beta Globulin 1.3 g/dL (0.7-1.3); PROEL- Globulin, Total 4.2 g/dL (2.2-3.9)
[2018-12-11 16:12] LABS: AFP, Tumor Marker 2.6 ng/mL (0.0-8.3); Anti-Smooth Muscle ABS 23 Units (0-19); CMV Antibody IgG < 0.60 U/mL (0.00-0.59); EBV-VCA IgG > 600.0 U/mL (0.0-17.9); Hepatitis B Core Ab Total Negative (Negative); PROEL- TOTAL PROTEIN 8.1 g/dL (6.0-8.5); Vitamin A, Retinol 45.7 ug/dL (20.1-62.0); t-Transglutaminase IgA <2 U/mL (0-3)
== END ==
DX: R94.5 Abnormal results of liver function studies (principal)
CPT/HCPCS: 36415; 80053; 80061; 82103; 82105; 82248; 82306; 82390; 82607; 82728; 82784; 82977; 83516; 83540; 83550; 84165; 84436; 84443; 84590; 85025; 85610; 85730; 86038; 86644; 86665; 86704; 86706; 86803; 87340

== ENCOUNTER 2018-12-18 12:39 | Emergency (ER) | payer MEDICAID, SELFPAY ==
[2018-11-06 13:53] VITALS: BMI 56.8
[2018-12-18 12:41] VITALS: BP 134/75; PULSE 76; RESP 17; TEMP 36.1; O2SAT 97; BMI 57.4
--- NOTE | 2018-12-18 13:13 | RAD_ITS ---
STUDY: X-RAY - LEFT FOOT CLINICAL: Dorsal foot pain since starting work, no specific injury. TECHNIQUE: 3 view(s) of the foot. COMPARISON: None. FINDINGS: There is a posterior calcaneal enthesophyte. Otherwise, unremarkable talus, calcaneus, and tarsal bones. Normal visualized subtalar, talonavicular, calcaneocuboid, tarsal and tarsometatarsal articulations. Normal metatarsi. Normal metatarsophalangeal joint of the great toe. Normal tibial and fibular sesamoid bones. Normal interphalangeal joint of the great toe. Normal phalanges of the great toe. Normal second through fifth metatarsophalangeal joints. Normal interphalangeal joints and phalanges of the lesser toes. The soft tissue structures are unremarkable. RAD/Foot min 3 Views IMPRESSION: Posterior calcaneal enthesophyte. Otherwise, unremarkable x-ray examination of the left foot. Electronically Signed: Farhan Rivera MD at 14:07 EDT Tel , Service support ,
--- NOTE | 2018-12-18 13:13 | RAD_ITS ---
STUDY: X-RAY - LEFT KNEE REASON FOR EXAM: Medial knee pain since starting work, no specific injury. TECHNIQUE: 4 view(s) of the knee. COMPARISON: None. FINDINGS: Normal visualized distal femur. Normal visualized proximal tibia and fibula. Normal proximal tibiofibular articulation. There is mild joint space narrowing of the medial femorotibial compartment. There is small marginal osteophytes without joint space narrowing of the lateral femorotibial compartment. There are small marginal osteophytes and joint space narrowing of the patellofemoral articulation. The soft tissue structures are unremarkable. RAD/Knee 4 or More Views IMPRESSION: Arthrosis of the medial femorotibial and patellofemoral compartments. Electronically Signed: Farhan Rivera MD at 14:02 EDT Tel , Service support ,
--- NOTE | 2018-12-18 13:13 | ED.VIS.GEN ---
History of Present Illness Chief Complaint: Lower Extremity Injury Detail of Chief Complaint: Left knee and left foot pain Informant: Patient Onset: Weeks Context: Gradual Onset Current Severity: Mild Maximum Severity: Moderate Worsened by: Weightbearing Narrative: Patient presents with a 1-1/2-week history of left foot and knee pain. Patient started working again about the time his symptoms started. He states he initially had pain in both legs, but the right leg seemed to resolve. He continues have pain in the left knee that is worse with weightbearing. He has pain across the top of his left foot as well. He has been taking [id number] Tylenol for pain. - Past Medical History (1) Diabetes Status: Chronic (2) High cholesterol Status: Chronic (3) Essential (primary) hypertension Status: Chronic (4) Peripheral arterial disease Status: Chronic (5) Type 2 diabetes mellitus without complications Status: Chronic Past Medical History - Allergies and Home Meds Allergies/Adverse Reactions: Allergies wool Adverse Reaction (Severe, Verified 12/18/18 12:40) [place] Primary Care Physician: Linnette Xavier [NON-STAFF] - Prior records reviewed: Yes Past Medical History: - - Reviewed Surgical History: cholecystectomy, tonsillectomy Lives: With Family Smoking Status: Former smoker - Family History Maternal Family History: Family History (Last Reviewed 11/06/18 @ 13:48 by Ramandeep Rodgers) Grandfather Family history of heart disease Family history of hypertension Mother Family history of high cholesterol Grandfather Family history of high cholesterol Aunt Family history of hypertension Other Family history of hypertension in mother Family History: Reports: - - Patient notes a maternal family history of hypertension and hyperlipidemia. Paternal Family History: Family History (Last Reviewed 11/06/18 @ 13:48 by Ramandeep Rodgers) Grandfather Family history of heart disease Family history of hypertension Mother Family history of high cholesterol Grandfather Family history of high cholesterol Aunt Family history of hypertension Other Family history of hypertension in mother Family History: Reports: - - Patient notes a paternal family history of heart disease, hypertension, hyperlipidemia and diabetes in father, uncle, cousin. Review of Systems General: Denies: Chills, Fever Eyes: Denies: Visual changes - bilaterally ENT: Denies: Bilateral ear pain Cardiovascular: Denies: Chest pain Respiratory: Denies: Dyspnea Gastrointestinal: Denies: Abdominal pain Musculoskeletal: Reports: Arthralgias, Extremity Pain Skin: Denies: Rash, Wounds Hematologic: Denies: Easy bruising Physical Exam Vital Signs/Narrative: Vital Signs Temp Pulse Resp BP Pulse Ox 12/18/18 12:41 97.0 F L 76 17 134/75 H 97 Inital Vital Signs reviewed: Yes General: Well nourished, Well developed ENT: Moist mucous membranes Neck: Supple Cardiovascular: Regular rate, Regular rhythm Respiratory: No distress Abdomen: Soft, Nontender Extremities: - - Medial and lateral joint lines of the left knee. No joint laxity. No tenderness the left hip. Patient has minimal tenderness along the top of his left foot. No tenderness of the plantar surface. No tender over the Achilles. No skin changes noted. Skin: Normal color Neurological: Alert, Oriented x3 Psychological: Normal affect Diagnostic/Tx/Re-eval Impressions Foot X-Ray 12/18/18 13:13 IMPRESSION: Posterior calcaneal enthesophyte. Otherwise, unremarkable x-ray examination of the left foot. Electronically Signed: Farhan Rivera MD at 14:07 EDT Tel , Service support , Knee X-Ray 12/18/18 13:13 IMPRESSION: Arthrosis of the medial femorotibial and patellofemoral compartments. Electronically Signed: Farhan Rivera MD at 14:02 EDT Tel , Service support , 12/18/18 13:13 Foot min 3 Views [RAD] Stat Knee 4 or More Views [RAD] Stat - Medical Decision Making Patient was given naproxen for pain. Test results are discussed with the patient. I encouraged him to get new shoes with better arch support for his feet. Patient was given prescription for naproxen and will follow up with his physician at [facility] ([facility] ED Disposition - Plan for ED Patient: Disposition: Home or Assisted Living Diagnosis: Arthritis Instructions: What Is Arthritis? Prescriptions: Naproxen [Naprosyn] 500 mg PO BID PRN PRN #20 tablet PRN Reason: Pain Score 1-10/10 Referrals: [facility],Linnette Pierre [NON-STAFF] - 1-2 Weeks
== END 2018-12-18 15:04 | disposition home or self-care (01) ==
PROVIDERS: Emergency Provider Emergency Medicine; Family Provider Nurse Practitioner Family; PCP Nurse Practitioner Family
DX: M17.12 Unilateral primary osteoarthritis, left knee (principal); M77.32 Calcaneal spur, left foot; E11.51 Type 2 diabetes mellitus with diabetic peripheral angiopathy without gangrene; E78.00 Pure hypercholesterolemia, unspecified; I10 Essential (primary) hypertension; Z79.82 Long term (current) use of aspirin; Z79.4 Long term (current) use of insulin; Z79.899 Other long term (current) drug therapy; Z87.891 Personal history of nicotine dependence
CPT/HCPCS: 73564; 73630; 99282

== ENCOUNTER → 2018-12-19 08:57 | Outpatient (CLI) | payer MEDICAID, SELFPAY ==
[2018-11-06 13:53] VITALS: BMI 56.8
[2018-12-18 12:41] VITALS: BMI 57.4
--- NOTE | 2018-12-19 09:03 | US_ITS ---
STUDY: ABDOMINAL ULTRASOUND REASON FOR EXAM: Male, 43 years old. Abnormal LFTs TECHNIQUE: Transabdominal ultrasound was performed with real-time and static howard scale imaging. TECHNICAL QUALITY: Adequate. COMPARISON: March 30, 2015 FINDINGS: Liver: The liver measures 19.4 cm. There is diffusely increased echogenicity of the liver. The bile ducts are within normal limits. There is hepatic color flow. The direction of portal flow is hepatopetal. There is no demonstrated mass lesion. Portal vein measurement: Gallbladder: Not visualized status post cholecystectomy Common Bile Duct (C.B.D.): The common bile duct measures 6 mm. Pancreas: Normal size of the head, body and tail of the pancreas. There is normal echogenicity of the pancreas. There is no demonstrated pancreatic mass or cyst. Spleen: Spleen is enlarged measuring 17.8 x 11.9 x 4.1 cm Right Kidney: Normal size of the right kidney. The right kidney measures 11.4 x 4.8 x 4.9 cm. Normal renal cortex. The right cortex measures 1.3 cm. There is no demonstrated renal mass or cyst. There is no right hydronephrosis. Left Kidney: Normal size of the left kidney. The left kidney measures 11 x 4.4 x 4.8 cm. Normal renal cortex. The left cortex measures 1.8 cm. There is no demonstrated renal mass or cyst. There is no left hydronephrosis. Tiny nonobstructing calculus is noted Aorta: No evidence for aneurysm I.V.C.: The IVC is patent. There is no ascites. US/Abdomen Complete IMPRESSION: Hepatosplenomegaly and fatty infiltrated liver. Status postcholecystectomy. Tiny nonobstructing left renal calculus Electronically Signed: David Harper MD at 20:58 EDT , Service support ,
== END ==
PROVIDERS: Referring Provider Internal Medicine Gastroenterology; Visit Provider Internal Medicine Gastroenterology
DX: R94.5 Abnormal results of liver function studies (principal)
CPT/HCPCS: 76700

== ENCOUNTER → 2019-09-27 | Outpatient (CLI) | payer MEDICAID, SELFPAY ==
[2019-08-26 11:43] VITALS: BMI 57.4
[2019-09-27 11:19] LABS: ALB/GLOB Ratio 0.9 RATIO (0.9-2.4); AST(SGOT) 55 U/L (15-37); Alanine Aminotransfer ALT/SGPT 49 U/L (16-61); Albumin, Serum 3.7 g/dL (3.2-5.0); Alkaline Phosphatase 189 U/L (45-117); Anion Gap 6 (5-15); BUN 34 mg/dL (7-18); BUN/Creat Ratio 25.2 RATIO (10-20); Calcium,Total 8.7 mg/dL (8.5-10.1); Chloride 108 mmol/L (98-107); Cholesterol 168 mg/dL (200); Creatinine, Serum 1.35 mg/dL (0.70-1.30); EST Glomerular Filtration Rate 61 mL/min (>60); Est Glom Filt Rate - Afr Amer 73 mL/min (>60); Globulin 4.3 g/dL (2.2-4.2); Glucose 226 mg/dL (74-106); High Density Lipoprotein 47 mg/dL; Magnesium 2.1 mg/dL (1.6-2.6); Potassium 4.1 mmol/L (3.5-5.1); Sodium Level 134 mmol/L (136-145); T4 Free Direct 1.15 ng/dL (0.76-1.46); Thyroid Stim Hormone (TSH) 1.27 uIU/mL (0.358-3.74); Triglycerides 107 mg/dL; Very Low Density Lipoprotein 21 mg/dL (5-40)
[2019-09-27 11:24] LABS: Vitamin D,25 Hydroxy 34.5 ng/mL
== END | disposition home or self-care (01) ==
LOC: LAB 10:19
DX: E11.9 Type 2 diabetes mellitus without complications (principal); Z79.899 Other long term (current) drug therapy
CPT/HCPCS: 36415; 80053; 80061; 82306; 83036; 83735; 84439; 84443

== ENCOUNTER → 2020-01-02 | Outpatient (CLI) | payer MEDICAID, SELFPAY ==
[2019-08-26 11:43] VITALS: BMI 57.4
[2020-01-02 12:52] LABS: Absolute Lymphocyte Count 0.95 X10^3/uL (0.83-4.51); Absolute Neutrophil Count 3.8 X10^3/uL (2.0-7.7); Basophil# 0.02 X10^3/uL; Basophil% 0.4 % (0-1); Eosinophil# 0.22 X10^3/uL; Eosinophils% 4.1 % (0-5); Hemoglobin 15.7 g/dL (13.0-16.5); Lymphocyte # 0.95 X10^3/ul (4.0); Lymphocyte % 17.5 % (19-41); Mean Corp Hgb Conc 34.1 g/dL (32-36); Mean Platelet Vol. 9.4 fl (6.2-12.0); Monocyte# 0.39 X10^3/uL; Monocyte% 7.2 % (0-10); NRBC Flagged by Analyzer 0 % (0-5); Neutrophil # 3.83 X10^3/uL (2.7-7.7); Neutrophil % 70.6 % (47-70); Platelet Count 152 K/mm3 (150-450); RBC Distribution Width CV 14.9 % (11.6-14.6); RBC Distribution Width SD 47.5 fl (35.1-43.9); Red Blood Count 5.23 M/mm3 (4.6-6.2); White Blood Count 5.4 K/mm3 (4.4-11.0)
[2020-01-02 13:24] LABS: Hemoglobin A1c 6.4 % (3.8-5.6)
[2020-01-02 13:25] LABS: ALB/GLOB Ratio 0.8 RATIO (0.9-2.4); AST(SGOT) 50 U/L (15-37); Alanine Aminotransfer ALT/SGPT 33 U/L (16-61); Albumin, Serum 3.7 g/dL (3.2-5.0); Alkaline Phosphatase 139 U/L (45-117); Anion Gap 9 (5-15); BUN 28 mg/dL (7-18); BUN/Creat Ratio 18.4 RATIO (10-20); Calcium,Total 9.5 mg/dL (8.5-10.1); Chloride 106 mmol/L (98-107); Creatinine, Serum 1.52 mg/dL (0.70-1.30); EST Glomerular Filtration Rate 53 mL/min (>60); Est Glom Filt Rate - Afr Amer 64 mL/min (>60); Globulin 4.4 g/dL (2.2-4.2); Glucose 202 mg/dL (74-106); Potassium 3.8 mmol/L (3.5-5.1); Protein, Total 8.1 g/dL (6.4-8.2); Sodium Level 135 mmol/L (136-145); Thyroid Stim Hormone (TSH) 1.71 uIU/mL (0.358-3.74)
== END | disposition home or self-care (01) ==
LOC: LAB 11:46
DX: D69.6 Thrombocytopenia, unspecified (principal); E03.9 Hypothyroidism, unspecified; E55.9 Vitamin D deficiency, unspecified; I12.9 Hypertensive chronic kidney disease with stage 1 through stage 4 chronic kidney disease, or unspecified chronic kidney disease; E11.22 Type 2 diabetes mellitus with diabetic chronic kidney disease; N18.9 Chronic kidney disease, unspecified
CPT/HCPCS: 36415; 80053; 82306; 83036; 84443; 85025

== ENCOUNTER → 2020-05-04 11:12 | Outpatient (CLI) | payer MEDICAID, SELFPAY ==
[2020-02-27 11:38] VITALS: BMI 58.2
[2020-05-04 11:38] LABS: Absolute Lymphocyte Count 1.18 X10^3/uL (0.83-4.51); Absolute Neutrophil Count 2.9 X10^3/uL (2.0-7.7); Basophil# 0.03 X10^3/uL; Basophil% 0.6 % (0-1); Eosinophil# 0.18 X10^3/uL; Eosinophils% 3.9 % (0-5); Hematocrit 47.4 % (40-54); Hemoglobin 15.8 g/dL (13.0-16.5); Lymphocyte # 1.18 X10^3/ul (4.0); Lymphocyte % 25.4 % (19-41); Mean Corp Hgb Conc 33.3 g/dL (32-36); Mean Corpuscular Hgb 29.8 pg (27.0-32.0); Mean Corpuscular Volume 89.4 fL (80-94); Monocyte# 0.38 X10^3/uL; Monocyte% 8.2 % (0-10); NRBC Flagged by Analyzer 0 % (0-5); Neutrophil # 2.87 X10^3/uL (2.7-7.7); Neutrophil % 61.7 % (47-70); Platelet Count 141 K/mm3 (150-450); RBC Distribution Width CV 15.2 % (11.6-14.6); RBC Distribution Width SD 49.1 fl (35.1-43.9); White Blood Count 4.7 K/mm3 (4.4-11.0)
[2020-05-04 12:04] LABS: Hemoglobin A1c 7.7 % (3.8-5.6)
[2020-05-04 12:13] LABS: ALB/GLOB Ratio 0.9 RATIO (0.9-2.4); AST(SGOT) 45 U/L (15-37); Alanine Aminotransfer ALT/SGPT 34 U/L (16-61); Albumin, Serum 3.8 g/dL (3.2-5.0); Alkaline Phosphatase 134 U/L (45-117); Anion Gap 5 (5-15); BUN 34 mg/dL (7-18); Chloride 102 mmol/L (98-107); Creatinine, Serum 1.79 mg/dL (0.70-1.30); EST Glomerular Filtration Rate 44 mL/min (>60); Est Glom Filt Rate - Afr Amer 53 mL/min (>60); Globulin 4.3 g/dL (2.2-4.2); Glucose 218 mg/dL (74-106); Potassium 4.4 mmol/L (3.5-5.1); Protein, Total 8.1 g/dL (6.4-8.2); Sodium Level 133 mmol/L (136-145); Thyroid Stim Hormone (TSH) 3.08 uIU/mL (0.358-3.74)
== END ==
DX: D69.6 Thrombocytopenia, unspecified (principal); E03.9 Hypothyroidism, unspecified; E55.9 Vitamin D deficiency, unspecified; I12.9 Hypertensive chronic kidney disease with stage 1 through stage 4 chronic kidney disease, or unspecified chronic kidney disease; E11.22 Type 2 diabetes mellitus with diabetic chronic kidney disease; N18.9 Chronic kidney disease, unspecified
CPT/HCPCS: 36415; 80053; 82306; 83036; 84443; 85025

== ENCOUNTER → 2020-08-03 08:50 | Outpatient (CLI) | payer MEDICAID, SELFPAY ==
[2020-07-16 11:48] VITALS: BMI 58.2
[2020-08-03 09:43] LABS: Anion Gap 9 (5-15); BUN 35 mg/dL (7-18); BUN/Creat Ratio 17.3 RATIO (10-20); Chloride 102 mmol/L (98-107); Cholesterol 164 mg/dL (200); Creatinine, Serum 2.02 mg/dL (0.70-1.30); EST Glomerular Filtration Rate 38 mL/min (>60); Est Glom Filt Rate - Afr Amer 46 mL/min (>60); Glucose 175 mg/dL (74-106); High Density Lipoprotein 40 mg/dL; Potassium 3.5 mmol/L (3.5-5.1); Sodium Level 133 mmol/L (136-145); Triglycerides 214 mg/dL; Very Low Density Lipoprotein 43 mg/dL (5-40)
[2020-08-03 09:56] LABS: Hemoglobin A1c 7.1 % (3.8-5.6)
== END ==
DX: E11.9 Type 2 diabetes mellitus without complications (principal)
CPT/HCPCS: 36415; 80048; 80061; 83036

== ENCOUNTER → 2020-11-12 11:45 | Outpatient (CLI) | payer MEDICAID, SELFPAY ==
[2020-11-12 13:18] LABS: ALB/GLOB Ratio 0.9 RATIO (0.9-2.4); AST(SGOT) 48 U/L (15-37); Alanine Aminotransfer ALT/SGPT 40 U/L (16-61); Albumin, Serum 3.8 g/dL (3.2-5.0); Alkaline Phosphatase 136 U/L (45-117); Anion Gap 9 (5-15); BUN 24 mg/dL (7-18); BUN/Creat Ratio 15.3 RATIO (10-20); Calcium,Total 9.2 mg/dL (8.5-10.1); Chloride 101 mmol/L (98-107); Cholesterol 149 mg/dL (200); Creatinine, Serum 1.57 mg/dL (0.70-1.30); EST Glomerular Filtration Rate 51 mL/min (>60); Est Glom Filt Rate - Afr Amer 61 mL/min (>60); Globulin 4.2 g/dL (2.2-4.2); Glucose 232 mg/dL (74-106); High Density Lipoprotein 37 mg/dL; Potassium 4.4 mmol/L (3.5-5.1); Sodium Level 133 mmol/L (136-145); Triglycerides 160 mg/dL; Very Low Density Lipoprotein 32 mg/dL (5-40)
== END ==
PROVIDERS: Visit Provider Nurse Practitioner Adult Health
DX: E11.9 Type 2 diabetes mellitus without complications (principal)
CPT/HCPCS: 36415; 80053; 80061

== ENCOUNTER → 2020-12-21 12:01 | Outpatient (CLI) | payer MEDICAID, SELFPAY ==
[2020-12-21 14:55] LABS: T4 Free Direct 1.42 ng/dL (0.76-1.46); Thyroid Stim Hormone (TSH) 0.68 uIU/mL (0.358-3.74)
== END ==
PROVIDERS: Visit Provider Internal Medicine Endocrinology, Diabetes & Metabolism
DX: E03.9 Hypothyroidism, unspecified (principal)
CPT/HCPCS: 36415; 84439; 84443

== ENCOUNTER 2021-01-29 11:32 | Emergency (ER) | payer MEDICAID, SELFPAY ==
[2021-01-29 11:32] VITALS: BP 147/110; PULSE 117; RESP 20; TEMP 36.6; O2SAT 96; BMI 61.7
--- NOTE | 2021-01-29 13:04 | EDS_ITS ---
HPI HPI - URI History of Present Illness Chief Complaint: Cold Sx Informant: patient Onset/Context/Timing Onset: Days (8-9) Context: Gradual Onset Timing: Continuous Current Severity: Moderate Maximum Severity: Moderate Associated Symptoms Associated Symptoms: Positive for Nasal Congestion, Sinus Pressure, Shortness of Breath (a little when I get chest congestion) and Productive Cough (occ clear sputum); Negative for Headache, Nausea, Vomiting, Diarrhea and Chest Pain Narrative Narrative: Patient has been symptomatic with upper respiratory tract infection symptoms for the past 8 or 9 days, no fevers or chills or myalgias. No diarrhea. No contact with Covid that he knows of, he has not been vaccinated and does want to get vaccinated. ROS ROS ED Constitutional Constitutional ED: Denies chills or fever(s) Eyes Eyes: Denies change in vision or diplopia ENT ENT ED: Reports nasal congestion and rhinorrhea; Denies sore throat Cardiovascular Cardiovascular: Denies chest pain or palpitations Respiratory/Chest Respiratory/Chest: Reports as per HPI, chest congestion, cough and dyspnea; Denies dyspnea on exertion Gastrointestinal Gastrointestinal: Denies abdominal pain, diarrhea, nausea or vomiting Genitourinary Genitourinary ED: Denies dysuria or hematuria Musculoskeletal Musculoskeletal: Denies back pain or neck pain Integumentary Denies abscess or rash Neurologic Neurologic: Denies headache(s), paresthesias or weakness Psychiatric Psychiatric: Denies anxiety or suicidal thoughts [facility] Medical History (Updated 01/29/21 @ 14:[address] Jax Pena MD) Diabetes Hyperlipidemia Hypertension Thyroid disease Vitamin D deficiency Home Medications aspirin 81 mg PO DAILY@0800 08/11/16 [History Last Taken 04/15/18] magnesium oxide 250 mg PO TIDCM 04/16/18 [History Last Taken 04/15/18] blood sugar diagnostic #100 ea 11/28/19 [Rx Last Taken Unknown] lancets 28 gauge #100 ea 02/27/20 [Rx Last Taken Unknown] atorvastatin 10 mg tablet 10 mg PO DAILY #90 tab 04/02/20 [Rx Last Taken Unknown] cholecalciferol (vitamin D3) 1,250 mcg (50,000 unit) capsule 50,000 unit PO QWEEK #4 cap 04/21/20 [Rx Last Taken Unknown] OneTouch Verio Flex meter #1 each NS 06/29/20 [Rx Last Taken Unknown] OneTouch Verio test strips #100 each NS 06/29/20 [Rx Last Taken Unknown] lancets 33 gauge #100 each 06/29/20 [Rx Last Taken Unknown] insulin lispro protamine-lispro 100 unit/mL (50-50) subcutaneous susp See Rx Instructions SC BID #30 ml 08/31/20 [Rx Last Taken Unknown] metoprolol tartrate 50 mg tablet 50 mg PO BID #180 tab 10/01/20 [Rx Last Taken Unknown] levothyroxine 175 mcg tablet 175 mcg PO DAILY #30 tab 10/15/20 [Rx Last Taken Unknown] dulaglutide 3 mg/0.5 mL subcutaneous pen injector 3 mg SUBCUT QWEEK #2 ml 10/27/20 [Rx Last Taken Unknown] atorvastatin 20 mg tablet 20 mg PO QHS tab 12/21/20 [History Last Taken Unknown] diclofenac sodium 1 % topical gel gm TOPICAL 12/21/20 [History Last Taken Unknown] insulin syringe-needle U-100 0.5 mL 31 gauge x 5/16 #100 ea 01/21/21 [Rx Last Taken Unknown] Allergy/AdvReac Type Severity Reaction Status Date / Time wool AdvReac Severe Hives Verified 01/29/21 11:34 Family History Grandfather Family history of heart disease Family history of hypertension Mother Family history of high cholesterol Grandfather Family history of high cholesterol Aunt Family history of hypertension Other Family history of hypertension in mother Surgical History history of gallbladder sugery History of tonsillectomy and adenoidectomy Social History Smoking Status: Unknown if ever smoked EXAM Physical Exam Const Vital Signs: 01/29/21 11:32 01/29/21 13:06 Temperature 97.8 F Temperature Source Temporal Pulse Rate 117 H Respiratory Rate 20 H Respiratory Effort Normal Non-Labored Respiratory Depth Normal Respiratory Pattern Normal Blood Pressure 147/110 H Blood Pressure Mean 122 Pulse Ox 96 Oxygen Delivery Method Room Air Positive well nourished and well developed General Appearance ED: well developed and NAD HEENT Reports moist mucous membranes HEENT Narrative: Ethmoid sinus tenderness, other sinuses are nontender. No purulent nasal discharge. normocephalic and atraumatic Eyes PERRL and EOMs intact bilaterally Neck full ROM and supple Resp normal respiratory effort and clear to auscultation bilaterally Cardio regular rate, regular rhythm and no murmurs GI non-tender and non-distended Auscultation: normoactive bowel sounds Palpation: soft Back/Spine no CVA tenderness General Back: other FROM Extremity normal to inspection General Extremety ED: Negative for edema, pulses abnormal or tenderness General Extremity: Negative for edema or pulses abnormal Neuro oriented x3, CN's II-XII intact bilaterally and no sensory deficits noted Sensorium / Orientation: awake and alert Motor Exam: strength 5/5 throughout Skin no rashes or lesions noted and no wounds MDM MDM MDM Narrative Medical decision making narrative: Rapid Covid returns positive, with a negative chest x-ray. I do not think he needs evaluated for pulmonary embolus at this time. His oxygenation is excellent and clinically he is doing very well and stable for discharge home. Given his medical history, he is currently a candidate for monoclonal antibody infusion which we discussed and he would be interested in it, however he is on day 9. I put in a referral, he must have a by tomorrow in order to still be a candidate, we discussed it and he was discharged stable condition with instructions as on discharge papers. We discussed reasons to return. Radiography Diagnostic Testing: Clinical Impression(s) from Imaging Studies Chest X-Ray 01/29/21 13:08 IMPRESSION: Borderline cardiomegaly. Electronically Signed: Jt Anderson MD at 13:35 EST , Service support , Discharge Plan Triage Chief Complaint: Cold Sx ED Provider: Jax Pena Dx/Rx/DC Orders Clinical Impression: COVID-19 Instructions: Coronavirus Disease 2019 (COVID-19): Caring for Yourself or Others Prescriptions: No Action (DME) lancets [Easy Touch Lancets] 28 gauge misc See Rx Instructions .ROUTE .MEDSUPPLY Qty: 100 RF: 6 diclofenac sodium 1 % gel topical RF: 0 atorvastatin 20 mg tablet 20 mg PO QHS RF: 0 aspirin 81 MG tablet,chewable 81 mg PO DAILY@0800 RF: 0 magnesium oxide 250 MG tablet 250 mg PO TIDCM RF: 0 (DME) Blood Glucose Test Strip See Rx Instructions .ROUTE .MEDSUPPLY Qty: 100 RF: 6 atorvastatin 10 mg tablet 10 mg PO DAILY Qty: 90 RF: 1 cholecalciferol (vitamin D3) 1,250 mcg (50,000 unit) capsule 50,000 unit PO QWEEK Qty: 4 RF: 6 (DME) blood-glucose meter [OneTouch Verio Flex meter] Misc See Rx Instructions .ROUTE .MEDSUPPLY Qty: 1 RF: 0 (DME) OneTouch Verio test strips Strip See Rx Instructions .ROUTE .MEDSUPPLY Qty: 100 RF: 8 (DME) lancets [OneTouch Delica Plus Lancet] 33 gauge misc See Rx Instructions .ROUTE .MEDSUPPLY Qty: 100 RF: 8 Humalog Mix 50-50 Insuln U-100 100 unit/mL (50-50) suspension See Rx Instructions SC BID Qty: 30 RF: 6 metoprolol tartrate 50 mg tablet 50 mg PO BID Qty: 180 RF: 1 levothyroxine 175 mcg tablet 175 mcg PO DAILY Qty: 30 RF: 6 Trulicity 3 mg/0.5 mL pen injector 3 mg subcut QWEEK Qty: 2 RF: 3 (DME) insulin syringe-needle U-100 [BD Insulin Syringe Ultra-Fine] 0.5 mL 31 gauge x 5/16 syringe See Rx Instructions .ROUTE .MEDSUPPLY Qty: 100 RF: 6 Other Ambulatory Orders: COVID Outpatient Monoclonal Antibody Referral (Routine) Timeframe: 1 Day Facility: [facility] - Location: [facility] Ordered By: Dr. Jax Pena Primary Care Provider: [facility] Arshad [facility] - As Needed (Or return to ER if your oxygen levels drop) Activity Restrictions/Additional Instructions: Try to get a home portable pulse oximeter and closely watch your oxygen levels periodically. If you stay below 90% for more than a minute or so, and/or you are feeling like your breathing is getting worse, return to the emergency department for further evaluation. Disposition Disposition: Home, Self Care
--- NOTE | 2021-01-29 13:08 | RAD_ITS ---
STUDY: X-RAY CHEST REASON FOR EXAM: Male, 45 years old. Cough, sob TECHNIQUE: Single AP portable view of the chest. COMPARISON: None. FINDINGS: The lungs are clear and expanded. There is no demonstrated pleural abnormality. There is borderline cardiomegaly. Normal mediastinum and susana. Normal visualized pulmonary arteries. Normal visualized aortic arch and descending thoracic aorta. Normal visualized thoracic spine. Normal visualized ribs, clavicles, and shoulders. There is no demonstrated abnormality of the visualized soft tissue structures of the upper abdomen. RAD/Chest 1 View (Portable) IMPRESSION: Borderline cardiomegaly. Electronically Signed: Jt Anderson MD at 13:35 EST , Service support ,
[2021-01-29 14:07] VITALS: O2SAT 95
== END 2021-01-29 14:07 | disposition home or self-care (01) ==
PROVIDERS: Emergency Provider Emergency Medicine
DX: U07.1 COVID-19 (principal); E11.9 Type 2 diabetes mellitus without complications; E78.5 Hyperlipidemia, unspecified; E03.9 Hypothyroidism, unspecified; I10 Essential (primary) hypertension; Z79.4 Long term (current) use of insulin; Z79.899 Other long term (current) drug therapy
CPT/HCPCS: 71045; 87426; 99282

== ENCOUNTER 2021-02-07 17:17 | Inpatient (IN) | payer MEDICAID, SELFPAY ==
[2021-02-07] VITALS (10 sets, daily range): BP systolic 110–166; BP diastolic 63–92; PULSE 102–122; RESP 18–22; TEMP 36.4–37.7; O2SAT 89–96; BMI 61.7; BMI 60.2
--- NOTE | 2021-02-07 17:45 | EKG12_ITS ---
Test Reason : SOB Blood Pressure : / mmHG Vent. Rate : 109 BPM Atrial Rate : 108 BPM P-R Int : 000 ms QRS Dur : 094 ms QT Int : 502 ms P-R-T Axes : 000 001 013 degrees QTc Int : 676 ms Sinus tachycardia Prolonged QT Abnormal ECG Confirmed by TOMI BLANKENSHIP, MORGAN ([id number]), editorial director EKTA ASCENCIO ([id number]) on 02/09/2021 9:20:22 AM Referred By: CLAUDIO Confirmed By:MORGAN KRISHNA MD
[2021-02-07] MEDS: Ipratropium/Albuterol Sulfate 3 ML AMPUL.NEB INHALATION (17:52)
[2021-02-07 17:58] LABS: Absolute Lymphocyte Count 0.45 X10^3/uL (0.83-4.51); Absolute Neutrophil Count 3.1 X10^3/uL (2.0-7.7); Basophil# 0.01 X10^3/uL; Basophil% 0.3 % (0-1); Eosinophil# 0.01 X10^3/uL; Eosinophils% 0.3 % (0-5); Hematocrit 42.2 % (40-54); Hemoglobin 15.2 g/dL (13.0-16.5); Lymphocyte # 0.45 X10^3/ul (0.83-4.51); Lymphocyte % 11.6 % (19-41); Mean Corpuscular Hgb 31.3 pg (27.0-32.0); Mean Platelet Vol. 10.1 fl (6.2-12.0); Monocyte# 0.26 X10^3/uL; Monocyte% 6.7 % (0-10); NRBC Flagged by Analyzer 0 % (0-5); Neutrophil # 3.12 X10^3/uL (2.7-7.7); Neutrophil % 80.6 % (47-70); POSITIVE DIFFERENTIAL YES; POSITIVE MORPHOLOGY YES; Platelet Count 119 K/mm3 (150-450); RBC Distribution Width CV 14.1 % (11.6-14.6); RBC Distribution Width SD 44.6 fl (35.1-43.9); Red Blood Count 4.85 M/mm3 (4.6-6.2); White Blood Count 3.9 K/mm3 (4.4-11.0)
[2021-02-07 18:05] LABS: Differential Indicated SCAN CRITERIA MET
[2021-02-07] MEDS: dexAMETHasone 10 MG/ML Vial IV (18:11)
[2021-02-07 18:13] LABS: Anion Gap 13 (5-15); BUN 20 mg/dL (7-18); BUN/Creat Ratio 11.8 RATIO (10-20); Calcium,Total 8.8 mg/dL (8.5-10.1); Chloride 100 mmol/L (98-107); EST Glomerular Filtration Rate 46 mL/min (>60); Est Glom Filt Rate - Afr Amer 56 mL/min (>60); Estimated Creatinine Clearance 56.06 ml/min; Glucose 234 mg/dL (74-106); Potassium 3.2 mmol/L (3.5-5.1); Sodium Level 131 mmol/L (136-145); Troponin-I HS 8 pg/mL (3.0-78.0)
[2021-02-07 18:29] LABS: Differential Comment SCANNED; Reactive Lymphocyte 1+
--- NOTE | 2021-02-07 18:30 | RAD_ITS ---
STUDY: X-RAY CHEST REASON FOR EXAM: Male, 45 years old. chest pain TECHNIQUE: Frontal portable view of the chest COMPARISON: 29 January 2021 FINDINGS: Lung volumes are low. Lungs have heterogeneously diffusely increased opacity. There is no pneumothorax or pleural effusions. Detection of pulmonary edema is not possible. Heart shadow is normal for technique. RAD/Chest 1 View (Portable) IMPRESSION: Extensive/severe Covid pneumonia. Electronically Signed: Ameena Hurley MD at 19:18 EST Tel , Service support ,
--- NOTE | 2021-02-07 20:01 | EDS_ITS ---
HPI History of Present Illness Chief Complaint: Shortness of Breath Narrative Narrative: Patient started having symptoms and tested positive for Covid about 8 days ago. He is here today for increasing shortness of breath. His home pulse ox was in the 80s. He denies any chest pain or any other associated symptoms. He does have fevers and chills and body aches. History of diabetes, hyperlipidemia, hypertension, obesity. He is not currently on steroids, antibiotics, or antibody therapies. He was not vaccinated. [facility] Medical History Diabetes Hyperlipidemia Hypertension Thyroid disease Vitamin D deficiency Home Medications aspirin 81 mg PO DAILY@0800 08/11/16 [History Last Taken 04/15/18] magnesium oxide 250 mg PO TIDCM 04/16/18 [History Last Taken 04/15/18] blood sugar diagnostic #100 ea 11/28/19 [Rx Last Taken Unknown] lancets 28 gauge #100 ea 02/27/20 [Rx Last Taken Unknown] atorvastatin 10 mg tablet 10 mg PO DAILY #90 tab 04/02/20 [Rx Last Taken Unknown] cholecalciferol (vitamin D3) 1,250 mcg (50,000 unit) capsule 50,000 unit PO QWEEK #4 cap 04/21/20 [Rx Last Taken Unknown] OneTouch Verio Flex meter #1 each NS 06/29/20 [Rx Last Taken Unknown] OneTouch Verio test strips #100 each NS 06/29/20 [Rx Last Taken Unknown] lancets 33 gauge #100 each 06/29/20 [Rx Last Taken Unknown] insulin lispro protamine-lispro 100 unit/mL (50-50) subcutaneous susp See Rx Instructions SC BID #30 ml 08/31/20 [Rx Last Taken Unknown] metoprolol tartrate 50 mg tablet 50 mg PO BID #180 tab 10/01/20 [Rx Last Taken Unknown] levothyroxine 175 mcg tablet 175 mcg PO DAILY #30 tab 10/15/20 [Rx Last Taken Unknown] dulaglutide 3 mg/0.5 mL subcutaneous pen injector 3 mg SUBCUT QWEEK #2 ml 10/27/20 [Rx Last Taken Unknown] atorvastatin 20 mg tablet 20 mg PO QHS tab 12/21/20 [History Last Taken Unknown] diclofenac sodium 1 % topical gel gm TOPICAL 12/21/20 [History Last Taken Unknown] insulin syringe-needle U-100 0.5 mL 31 gauge x 16 #100 ea 01/21/21 [Rx Last Taken Unknown] Allergy/AdvReac Type Severity Reaction Status Date / Time wool AdvReac Severe Hives Verified 02/07/21 17:20 Family History Grandfather Family history of heart disease Family history of hypertension Mother Family history of high cholesterol Grandfather Family history of high cholesterol Aunt Family history of hypertension Other Family history of hypertension in mother Surgical History history of gallbladder sugery History of tonsillectomy and adenoidectomy Social History Smoking Status: Unknown if ever smoked ROS ROS ED Constitutional Constitutional ED: Reports chills and fever(s) Eyes Eyes: Denies change in vision ENT ENT ED: Denies ear pain Cardiovascular Cardiovascular: Denies chest pain Respiratory/Chest Respiratory/Chest: Reports cough and dyspnea Gastrointestinal Gastrointestinal: Denies abdominal pain or vomiting Genitourinary Genitourinary ED: Denies dysuria Musculoskeletal Musculoskeletal: Reports myalgias Integumentary Denies rash Neurologic Neurologic: Denies headache(s) Psychiatric Psychiatric: Denies depression Endocrine Endocrinology: Denies polyuria Allergic/Immunologic Allergic/Immunologic ED: Denies urticaria EXAM Physical Exam Const Vital Signs: 02/07/21 17:18 02/07/21 17:25 02/07/21 17:50 Temperature 99.8 F H Temperature Source Temporal Pulse Rate 122 H 104 H Respiratory Rate 20 H 18 Respiratory Effort Respiratory Depth Respiratory Pattern Blood Pressure 166/92 H Blood Pressure Mean 116 Pulse Ox 89 94 93 Oxygen Delivery Method Room Air Nasal Cannula Nasal Cannula Oxygen Flow Rate (L/min) 4 3 02/07/21 18:12 02/07/21 18:13 02/07/21 19:32 Temperature Temperature Source Pulse Rate 108 H Respiratory Rate 18 Respiratory Effort Short of Breath Labored Respiratory Depth Normal Respiratory Pattern Normal Blood Pressure 110/63 Blood Pressure Mean 78 Pulse Ox 95 96 Oxygen Delivery Method Nasal Cannula Nasal Cannula Oxygen Flow Rate (L/min) 4 4 Positive well nourished, well developed and obese General Appearance ED: well developed Nutritional Appearance: obese HEENT Negative for trauma or tenderness Eyes EOMs intact bilaterally Neck supple Resp normal respiratory effort Cardio regular rhythm Rate: tachycardic GI normal to inspection, nondistended, normoactive bowel sounds Extremity General Extremety ED: Yes edema; Negative for tenderness General Extremity: edema Neuro oriented x3 Sensorium / Orientation: alert Psych mental status grossly normal Skin no rashes or lesions noted MDM MDM MDM Narrative Medical decision making narrative: Patient arrives hypoxic. He was started on nasal cannula 4 L and was in the mid 90s. EKG showed junctional rhythm at a rate of 109. No sign of acute ischemia or infarction pattern. This was interpreted by me. Chest x-ray was interpreted by the radiologist and myself and it showed bilateral changes associated with Covid pneumonia. Labs as below. Everything is fairly stable or consistent with his COVID-19 infection. Patient was ambulated in the department on 4 L. He did drop down to 88%. He will not be a candidate for home oxygen therapy. The hospitalist was contacted and he will be admitted for further care. Impression #1 Covid Impression #2 hypoxia Lab Data Labs: Laboratory Results - last 24 hr 02/07/21 02/07/21 17:35 17:35 WBC 3.9 L RBC 4.85 Hgb 15.2 Hct 42.2 MCV 87.0 MCH 31.3 MCHC 36.0 RDW Std Deviation 44.6 H RDW Coeff of Syed 14.1 Plt Count 119 L MPV 10.1 Immature Gran % (Auto) 0.500 Neut % (Auto) 80.6 H Lymph % (Auto) 11.6 L [place] % (Auto) 6.7 Eos % (Auto) 0.3 Baso % (Auto) 0.3 Absolute Neuts (auto) 3.1 Absolute Lymphs (auto) 0.45 L Nucleated RBC % 0 Differential Comment SCANNED Diff Path Review May foll Reactive Lymphocytes 1+ Sodium 131 L Potassium 3.2 L Chloride 100 Carbon Dioxide 18.0 L Anion Gap 13 BUN 20 H Creatinine 1.70 H Estim Creat Clear Calc 56.06 Est GFR (MDRD) Af Amer 56 L Est GFR (MDRD) Non-Af 46 L BUN/Creatinine Ratio 11.8 Glucose 234 H Calcium 8.8 Troponin I High Sens 8 Radiography Diagnostic Testing: Clinical Impression(s) from Imaging Studies Chest X-Ray 02/07/21 18:30 IMPRESSION: Extensive/severe Covid pneumonia. Electronically Signed: Ameena Hurley MD at 19:18 EST Tel , Service support , Discharge Plan Triage Chief Complaint: Shortness of Breath ED Provider: Scott Garcia Dx/Rx/DC Orders Prescriptions: No Action (DME) lancets [Easy Touch Lancets] 28 gauge misc See Rx Instructions .ROUTE .MEDSUPPLY Qty: 100 RF: 6 diclofenac sodium 1 % gel topical RF: 0 atorvastatin 20 mg tablet 20 mg PO QHS RF: 0 aspirin 81 MG tablet,chewable 81 mg PO DAILY@0800 RF: 0 magnesium oxide 250 MG tablet 250 mg PO TIDCM RF: 0 (DME) Blood Glucose Test Strip See Rx Instructions .ROUTE .MEDSUPPLY Qty: 100 RF: 6 atorvastatin 10 mg tablet 10 mg PO DAILY Qty: 90 RF: 1 cholecalciferol (vitamin D3) 1,250 mcg (50,000 unit) capsule 50,000 unit PO QWEEK Qty: 4 RF: 6 (DME) blood-glucose meter [OneTouch Verio Flex meter] Misc See Rx Instructions .ROUTE .MEDSUPPLY Qty: 1 RF: 0 (DME) OneTouch Verio test strips Strip See Rx Instructions .ROUTE .MEDSUPPLY Qty: 100 RF: 8 (DME) lancets [OneTouch Delica Plus Lancet] 33 gauge misc See Rx Instructions .ROUTE .MEDSUPPLY Qty: 100 RF: 8 Humalog Mix 50-50 Insuln U-100 100 unit/mL (50-50) suspension See Rx Instructions SC BID Qty: 30 RF: 6 metoprolol tartrate 50 mg tablet 50 mg PO BID Qty: 180 RF: 1 levothyroxine 175 mcg tablet 175 mcg PO DAILY Qty: 30 RF: 6 Trulicity 3 mg/0.5 mL pen injector 3 mg subcut QWEEK Qty: 2 RF: 3 (DME) insulin syringe-needle U-100 [BD Insulin Syringe Ultra-Fine] 0.5 mL 31 gauge x 5/16 syringe See Rx Instructions .ROUTE .MEDSUPPLY Qty: 100 RF: 6 [facility]
--- NOTE | 2021-02-07 20:06 | PCM.HP.STD ---
HPI - General General Date of Admission: 02/07/21 HPI Narrative CHRISTA SILVERMAN, is a 45 M with a significant history of hypertension; hyperlipidemia; diabetes mellitus; thyroid disease and vitamin D deficiency who presents to the emergency department with progressively worsening Covid-like symptoms. His symptoms started more than 2 weeks ago. On the 29 January 2021 he presented to the emergency department at that time he was not hypoxic but Covid test was positive. Reported in the past few days his shortness of breath has gotten progressively worse. At home on room air his oxygen saturation was 88%. Associated with his symptoms is cough; productive for chalky white sputum and occasionally greenish sputum. He reports anorexia, dysgeusia, anorexia, low-grade fever, nightly chills, diaphoresis, myalgia, fatigue, and weakness. He had rigors which has since resolved. He reports loose stools. At the emergency department he was placed on nasal cannula oxygen. And with ambulation with 4 L nasal cannula oxygen his oxygen saturation was 88%. A decision was made for patient to stay at the hospital. [facility] Medical History Diabetes Hyperlipidemia Hypertension Thyroid disease Vitamin D deficiency Home Medications aspirin 81 mg PO DAILY@0800 08/11/16 [History Last Taken 04/15/18] magnesium oxide 250 mg PO TIDCM 04/16/18 [History Last Taken 04/15/18] blood sugar diagnostic #100 ea 11/28/19 [Rx Last Taken Unknown] lancets 28 gauge #100 ea 02/27/20 [Rx Last Taken Unknown] OneTouch Verio Flex meter #1 each NS 06/29/20 [Rx Last Taken Unknown] OneTouch Verio test strips #100 each NS 06/29/20 [Rx Last Taken Unknown] lancets 33 gauge #100 each 06/29/20 [Rx Last Taken Unknown] metoprolol tartrate 50 mg tablet 50 mg PO BID #180 tab 10/01/20 [Rx Last Taken Unknown] atorvastatin 20 mg tablet 20 mg PO QHS tab 12/21/20 [History Last Taken Unknown] diclofenac sodium 1 % topical gel 1 gm TOPICAL BID PRN PRN 12/21/20 [History Last Taken Unknown] insulin syringe-needle U-100 0.5 mL 31 gauge x 5/16 #100 ea 01/21/21 [Rx Last Taken Unknown] cholecalciferol (vitamin D3) 50,000 unit PO QWEEK 02/07/21 [History Last Taken 02/04/21] dulaglutide [Trulicity] 3 mg SUBCUT QWEEK 02/07/21 [History Last Taken 02/01/21] insulin lispro protamin-lispro [Humalog Mix 50-50 Insuln U-100] See Rx Instructions SC BID 02/07/21 [History Last Taken Unknown] levothyroxine 175 mcg PO DAILY 02/07/21 [History Last Taken Unknown] Allergy/AdvReac Type Severity Reaction Status Date / Time wool AdvReac Severe Hives Verified 02/07/21 17:20 Family History Grandfather Family history of heart disease Family history of hypertension Mother Family history of high cholesterol Grandfather Family history of high cholesterol Aunt Family history of hypertension Other Family history of hypertension in mother Surgical History history of gallbladder sugery History of tonsillectomy and adenoidectomy Social History Smoking Status: Former smoker ROS ROS Narrative Constitutional: Reports low-grade fever, chills, fatigue, anorexia and change in weight Eyes: Denies blurry vision, change in eye color, change in vision, discharge from eye(s), double vision, erythema, eye pain, loss of vision or other HEENT: Denies abnormal hearing, dysphagia, ear pain, epistaxis, headache(s), hearing loss, nasal congestion, nasal discharge, post nasal drip, sinus pressure, sore throat or other Cardiovascular: Denies chest pain or palpitations. Respiratory/Chest: Reports cough. Reports phlegm production. Gastrointestinal: Reports loose stools. Denies abdominal pain, coffee ground emesis, constipation, dyspepsia, hematemesis, hematochezia, melena, nausea, vomiting or other Genitourinary: Denies burning urination, difficulty urinating, dysuria, hematuria, nocturia, urinary frequency, urinary hesitancy, urinary incontinence, urinary urgency or other Musculoskeletal: Reports myalgia. Reports chronic arthralgia that has not changed. Neurologic: Denies abnormal gait, abnormal speech, confusion, disequilibrium, dizziness, focal weakness, headache(s), numbness, paresthesias, seizure-like activity, seizures, syncope, tingling, tremor(s) or other Psychiatric: Denies anxiety, depression, homicidal ideation, suicidal ideation or other Endocrinology: Denies change in body appearance, cold intolerance, excessive sweating, heat intolerance, polydipsia, polyuria or other Hematologic/Lymphatic: Denies anemia, easy bleeding, easy bruising, lymphadenopathy or other Integumentary: Denies rashes Allergic/Immunologic: Denies rhinitis, hives, eczema, asthma or other Vital Signs Vital Signs Vital Signs: 02/07/21 17:18 02/07/21 17:25 02/07/21 17:50 Temperature 99.8 F H Temperature Source Temporal Pulse Rate 122 H 104 H Respiratory Rate 20 H 18 Respiratory Effort Respiratory Depth Respiratory Pattern Blood Pressure 166/92 H Blood Pressure Mean 116 Pulse Ox 89 94 93 Oxygen Delivery Method Room Air Nasal Cannula Nasal Cannula Oxygen Flow Rate (L/min) 4 3 02/07/21 18:12 02/07/21 18:13 02/07/21 19:32 Temperature Temperature Source Pulse Rate 108 H Respiratory Rate 18 Respiratory Effort Short of Breath Labored Respiratory Depth Normal Respiratory Pattern Normal Blood Pressure 110/63 Blood Pressure Mean 78 Pulse Ox 95 96 Oxygen Delivery Method Nasal Cannula Nasal Cannula Oxygen Flow Rate (L/min) 4 4 02/07/21 20:03 Temperature 97.8 F Temperature Source Temporal Pulse Rate 102 H Respiratory Rate 22 H Respiratory Effort Respiratory Depth Respiratory Pattern Blood Pressure 124/77 H Blood Pressure Mean 92 Pulse Ox 92 Oxygen Delivery Method Nasal Cannula Oxygen Flow Rate (L/min) 4 Weight Weight: 195.045 kg Body Mass Index (BMI) 61.7 Physical Exam Narrative Physical exam: General: Morbid Obesity; well-nourished Head: Normocephalic, atraumatic, no tenderness Eyes: PERRLA, EOMI ENT, no trauma, moist mucous membranes, no rhinorrhea Neck: Nontender, full range of motion, no spinal tenderness, deformities, step-off CVS: Regular rate and rhythm. S1-S2 present. No murmur, gallop or rub. Respiratory : Tachypnea; coarse lung sounds; chest wall nontender. Abdomen: Obese abdomen; soft, nontender, nondistended, normal bowel sounds, no masses : Deferred Back: Nontender, no CVA tenderness, no midline spinal tenderness, deformities, step-offs Extremities: Nontender full range of motion, no trauma Skin: Normal color, no trauma, abrasions Neuro: Alert, oriented, cranial nerves II through XII grossly intact. Psychiatry: Normal mood. Normal affect. Not depressed. Not anxious. Results Lab / Micro Data Result Diagrams: 02/07/21 17:35 02/07/21 17:35 Labs: Laboratory Results - last 24 hr 02/07/21 17:35: WBC 3.9 L, RBC 4.85, Hgb 15.2, Hct 42.2, MCV 87.0, MCH 31.3, MCHC 36.0, RDW Std Deviation 44.6 H, RDW Coeff of Syed 14.1, Plt Count 119 L, MPV 10.1, Immature Gran % (Auto) 0.500, Neut % (Auto) 80.6 H, Lymph % (Auto) 11.6 L, Burke % (Auto) 6.7, Eos % (Auto) 0.3, Baso % (Auto) 0.3, Absolute Neuts (auto) 3.1, Absolute Lymphs (auto) 0.45 L, Nucleated RBC % 0, Differential Comment SCANNED, Diff Path Review May foll, Reactive Lymphocytes 1+ 02/07/21 17:35: Sodium 131 L, Potassium 3.2 L, Chloride 100, Carbon Dioxide 18.0 L, Anion Gap 13, BUN 20 H, Creatinine 1.70 H, Estim Creat Clear Calc 56.06, Est GFR (MDRD) Af Amer 56 L, Est GFR (MDRD) Non-Af 46 L, BUN/Creatinine Ratio 11.8, Glucose 234 H, Calcium 8.8, Troponin I High Sens 8 Radiology Impression Chest X-Ray 02/07/21 18:30 IMPRESSION: Extensive/severe Covid pneumonia. 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 Onto supplemental oxygenation. Outside window of remdesivir. Positive coronavirus test at the emergency department on 01/29/2021. We will get rapid Covid screen. Chest x-ray independently interpreted showed multifocal pneumonia I agree with radiologist interpretation. Chest x-ray on 01/29/2021 was reviewed. Chest x-ray at that time did not show pneumonia. Review of ED labs showed mild leukopenia with white counts of 3.9; mild thrombocytopenia with platelet count of 119; neutrophilia and lymphopenia. D-dimer ordered. Tylenol for fever Mucinex ordered Incentive spirometer and chest physiotherapy ordered. Advised to lie in prone position if in severe respiratory distress Loperamide for diarrhea. Decadron ordered. Patient is not a candidate of remdesivir. Morbid obesity BMI: 60.2 KG/MM2. Complicates care. Lifestyle modification recommended. Diabetes mellitus Patient with hyperglycemia on [facility] Prandial insulin adjusted. Accu-Chek QA [facility] with correction scale insulin ordered. Hyponatremia Review of ED labs sodium of 131. Like secondary to pulmonary infection. COVID-19 treatment as above. Trend CMP Hypokalemia Review of ED labs show potassium of 3.2. Replaced. Trend CMP. On home magnesium. Check magnesium level. CKD stage IIIa Stable. Hypothyroidism Synthroid continued Hypertension Blood pressure is mildly elevated Home metoprolol continued Trend blood pressure and adjust blood pressure medications. DVT prophylaxis Subcutaneous Lovenox ordered. Monitor platelet count since platelets 119. Charges/Coding Visit Charges Inpatient E&M: 25704 Init Hosp L3
[2021-02-07 21:16] LABS: Magnesium 1.9 mg/dL (1.6-2.6)
[2021-02-07 21:27] LABS: D-Dimer Quantitative (DVT/PE) 0.96 FEU/ug/m (0.27-0.49)
--- NOTE | 2021-02-07 21:37 | PCS.PANDOC ---
PANDEMIC DOCUMENTATION INITIATED: Date: 02/07/21 Time: 2100
--- NOTE | 2021-02-07 22:00 | CT_ITS ---
STUDY: CTA CHEST REASON FOR EXAM: Male, 45 years old. Elevated d-dimer RADIATION DOSAGE (If Supplied By Facility): CTDIvol = ( 13.16 ) mGy, DLP = ( 743.53 ) mGycm TECHNIQUE: The examination was performed with the intravenous administration of IV 100mL Isovue-370. Post-processing of the angiographic images was performed, with multiplanar reformation and 3D reconstruction. Individualized dose optimization techniques were used for this CT. COMPARISON: None. FINDINGS: Normal enhancement of the main pulmonary artery and right and left pulmonary arteries. Limited evaluation of the peripheral pulmonary arteries due to suboptimal bolus timing quantum mottle artifacts. There is no demonstrated pulmonary embolism. Normal thoracic aorta and visualized great vessels. There is no demonstrated aortic dissection. Normal heart and pericardium. Normal mediastinum. Normal hilar regions. Normal visualized trachea and bronchi. The lungs demonstrate scattered patchy groundglass opacities. Normal pleura. Normal chest wall structures. Normal osseous structures. Normal visualized upper abdomen. There is splenomegaly with the spleen measuring approximately 19 [address] in AP dimension. CT/CTA Chest W/WO Contrast IMPRESSION: No demonstrated pulmonary embolism or arterial dissection. Limited evaluation of the peripheral pulmonary arteries due to suboptimal bolus timing. Diffusely scattered groundglass pulmonary airspace opacities concerning for underlying infectious inflammatory process and possible viral pneumonia. Electronically Signed: Lj Barillas MD at 0:46 EST Tel , Service support ,
[2021-02-07] MEDS: guaiFENesin 1,200 MG Tablet 1200 MG PO (22:12)
[2021-02-07] MEDS: Potassium Chloride Oral Tablet 20 MEQ 40 MEQ PO (22:12)
[2021-02-07] MEDS: Enoxaparin 40 MG/0.4 ML Syringe SC (22:13)
[2021-02-07] MEDS: Insulin Lispro 100 UNIT/ML INSULN.PEN SC (22:15)
[2021-02-08] VITALS (18 sets, daily range): BP systolic 111–147; BP diastolic 71–91; PULSE 80–99; RESP 18–20; TEMP 36.6–36.8; O2SAT 92–96
[2021-02-08 00:36] LABS: Bedside Glucose 274 mg/dL (70-110)
[2021-02-08 07:23] LABS: Absolute Lymphocyte Count 0.27 X10^3/uL (0.83-4.51); Absolute Neutrophil Count 1.2 X10^3/uL (2.0-7.7); Basophil# 0.01 X10^3/uL; Basophil% 0.6 % (0-1); Hematocrit 38.5 % (40-54); Hemoglobin 13.4 g/dL (13.0-16.5); Lymphocyte # 0.27 X10^3/ul (0.83-4.51); Lymphocyte % 17.1 % (19-41); Mean Corp Hgb Conc 34.8 g/dL (32-36); Mean Corpuscular Hgb 30.7 pg (27.0-32.0); Mean Corpuscular Volume 88.1 fL (80-94); Mean Platelet Vol. 10.1 fl (6.2-12.0); Monocyte# 0.07 X10^3/uL; Monocyte% 4.4 % (0-10); NRBC Flagged by Analyzer 0 % (0-5); POSITIVE DIFFERENTIAL YES; POSITIVE MORPHOLOGY YES; Platelet Count 117 K/mm3 (150-450); RBC Distribution Width CV 13.8 % (11.6-14.6); RBC Distribution Width SD 44.8 fl (35.1-43.9); Red Blood Count 4.37 M/mm3 (4.6-6.2); White Blood Count 1.6 K/mm3 (4.4-11.0)
[2021-02-08 07:36] LABS: Differential Indicated SCAN CRITERIA MET
[2021-02-08] MEDS: Insulin Human 75/25 Kwickpen 25 UNIT SC (07:51)
[2021-02-08] MEDS: Insulin Lispro 100 UNIT/ML INSULN.PEN SC ×4 (07:52→22:19)
[2021-02-08] MEDS: Metoprolol Tartrate 50 MG Tablet PO ×2 (07:53→22:16)
[2021-02-08 07:57] LABS: ALB/GLOB Ratio 0.6 RATIO (0.9-2.4); AST(SGOT) 55 U/L (15-37); Alanine Aminotransfer ALT/SGPT 33 U/L (16-61); Albumin, Serum 2.8 g/dL (3.2-5.0); Alkaline Phosphatase 105 U/L (45-117); Anion Gap 13 (5-15); BUN 24 mg/dL (7-18); BUN/Creat Ratio 15.7 RATIO (10-20); Calcium,Total 8.4 mg/dL (8.5-10.1); Chloride 99 mmol/L (98-107); Creatinine, Serum 1.53 mg/dL (0.70-1.30); EST Glomerular Filtration Rate 52 mL/min (>60); Est Glom Filt Rate - Afr Amer 63 mL/min (>60); Estimated Creatinine Clearance 62.29 ml/min; Globulin 4.8 g/dL (2.2-4.2); Glucose 274 mg/dL (74-106); Protein, Total 7.6 g/dL (6.4-8.2); Sodium Level 131 mmol/L (136-145)
[2021-02-08] MEDS: Aspirin 81 MG TAB.CHEW PO (07:57)
[2021-02-08] MEDS: dexAMETHasone 2 MG TABLET 6 MG PO (07:57)
[2021-02-08] MEDS: Enoxaparin 40 MG/0.4 ML Syringe SC ×2 (07:57→22:16)
[2021-02-08] MEDS: Magnesium Chloride 64 MG Delay Rel.Tablet PO ×3 (07:57→16:31)
[2021-02-08] MEDS: guaiFENesin 1,200 MG Tablet 1200 MG PO ×2 (07:58→22:16)
[2021-02-08] MEDS: Levothyroxine 175 MCG Tablet PO (07:58)
[2021-02-08 08:41] LABS: Reactive Lymphocyte RARE
--- NOTE | 2021-02-08 09:28 | CASEMGMT ---
FRANSISCA THOMAS Assessment: Face to Face with pt for initial transition planning/care coordination assessment. FRANSISCA THOMAS introduced self and role at [facility], pt voices understanding and consents to assessment. Pt is A/O x4 and answers all questions appropriately at this time. Pt sitting up in chair with O2 on in no distress. Care providers, pharmacy, and demographics verified/updated. Admitting Dx: acute hypoxemic respiratory failure PCP:Linnette Pierre Specialists:gildardo Faustin; Cy, nephro; Vaibhav, pod; [facility] Preferred Pharmacy: [facility] Insurance: [facility] Prescription Benefit: yes LW/HPOA: Pt denies having a LW/DPOA and denies need for info regarding AD. LNOK: Julieta Jasmine, mother Living Arrangements: Pt lives with his mother and her boyfriend in a single story house with 3 steps to enter with a rail. Pt reports he is I in ADL's and denies concerns at home. Transportation: Pt mother transports him to medical appts, pt does not drive. DME/HHC/SNF: Pt has a BGM with supplies including lancets and strips. Pt uses insulin and states he has adequate supply of needles. Pt has had HHC in the past but is unsure of the name of the company. Pt denies SNF stays. Pt was first tested for COVID at [facility]. His mother and her boyfriend are not positive. He states he can quarantine from them using separate bedrooms but not bathroom. Discussed local in network DME companies should pt need O2 upon dc. Pt denies having a preference. Pt states no concerns with going home at time of dc. Pt states no further concerns/needs. CM to follow. Advised pt to ask CM if any further question/concerns/needs arise, voices understanding. Pt Goal: Home Plan: Home
[2021-02-08 11:56] LABS: Bedside Glucose 293 mg/dL (70-110)
[2021-02-08 11:56] LABS: Bedside Glucose 267 mg/dL (70-110)
[2021-02-08 15:33] LABS: Pathologist Review Reviewed
[2021-02-08 15:48] LABS: Pathologist Review Reviewed
[2021-02-08] MEDS: Insulin Human 75/25 Kwickpen 35 UNIT SC (16:26)
--- NOTE | 2021-02-08 20:08 | PN.HOSP_ITS ---
Subjective Subjective Patient was seen and examined today, he does not appear short of breath at rest. Currently the patient is on 5 L via nasal cannula. Objective Data Objective Data Vital Signs: Vital Signs Temp Pulse Resp BP Pulse Ox 98.2 F 99 20 H 129/81 H 92 02/08/21 14:14 02/08/21 17:14 02/08/21 17:14 02/08/21 14:14 02/08/21 14:14 Oxygen Flow Rate (L/min) 5 Oxygen Delivery Method Nasal Cannula Weight: 190.3 kg Body Mass Index (BMI) 60.2 Intake & Output: Intake and Output for Last 24 Hours 02/06/21 02/07/21 02/08/21 23:59 23:59 23:59 Intake Total 2300 / 2300 Balance 2300 / 2300 Lab / Micro Data Result Diagrams: 02/08/21 06:58 02/08/21 06:58 Labs: Laboratory Results - last 24 hr 02/07/21 17:35: Diff Path Review Reviewed 02/07/21 17:35: Magnesium 1.9 02/07/21 17:35: D-Dimer Quant (PE/DVT) 0.96 H* 02/07/21 22:08: POC Glucose 274 H 02/08/21 06:58: WBC 1.6 L, RBC 4.37 L, Hgb 13.4, Hct 38.5 L, MCV 88.1, MCH 30.7, MCHC 34.8, RDW Std Deviation 44.8 H, RDW Coeff of Syed 13.8, Plt Count 117 L, MPV 10.1, Immature Gran % (Auto) 1.900 H, Neut % (Auto) 76.0 H, Lymph % (Auto) 17.1 L, [place] % (Auto) 4.4, Eos % (Auto) 0.0, Baso % (Auto) 0.6, Absolute Neuts (auto) 1.2 L, Absolute Lymphs (auto) 0.27 L, Nucleated RBC % 0, Differential Comment COMMENT, Diff Path Review Reviewed, Reactive Lymphocytes RARE 02/08/21 06:58: Sodium 131 L, Potassium 4.0, Chloride 99, Carbon Dioxide 19.0 L, Anion Gap 13, BUN 24 H, Creatinine 1.53 H, Estim Creat Clear Calc 62.29, Est GFR (MDRD) Af Amer 63, Est GFR (MDRD) Non-Af 52 L, BUN/Creatinine Ratio 15.7, Glucose 274 H, Calcium 8.4 L, Total Bilirubin 0.70, AST 55 H, ALT 33, Alkaline Phosphatase 105, Total Protein 7.6, Albumin 2.8 L, Globulin 4.8 H, Albumin/Globulin Ratio 0.6 L 02/08/21 07:45: POC Glucose 267 H 02/08/21 11:29: POC Glucose 293 H Micro: Microbiology 02/07/21 05:50 Mucosa - Nose Influenza Types A,B Direct FA (GLENN) - Final Radiography Diagnostic Testing: Radiology Impression Chest CTA 02/07/21 22:00 IMPRESSION: No demonstrated pulmonary embolism or arterial dissection. Limited evaluation of the peripheral pulmonary arteries due to suboptimal bolus timing. Diffusely scattered groundglass pulmonary airspace opacities concerning for underlying infectious inflammatory process and possible viral pneumonia. Electronically Signed: Lj Barillas MD at 0:46 EST Tel , Service support , Physical Exam Const alert, oriented x3, no apparent distress and healthy appearing Constitutional Narrative: Patient is morbidly obese General Appearance: cooperative, well kempt and well developed Orientation / Consciousness: awake, oriented to person, oriented to place and oriented to time Nutritional Appearance: morbidly obese HEENT normocephalic and moist oral mucous membranes Eyes PERRL, EOMs intact bilaterally and conjunctivae normal Neck nuchal rigidity, supple, no JVD and thyroid normal General: trachea midline Resp normal respiratory effort and clear to auscultation bilaterally Auscultation: Negative for rales, rhonchi or wheezes Cardio regular rate, regular rhythm, no murmurs, no rub and no gallops GI normal to inspection, nondistended, normoactive bowel sounds, soft to palpation, non-tender and non-distended Extremity no clubbing, cyanosis or edema Skin no rashes or lesions noted General Skin Exam: no breakdown Neuro oriented x3, CN's II-XII intact bilaterally, no focal motor deficits and no sensory deficits noted Sensorium / Orientation: awake and alert Speech: speech normal Psych thought process normal and affect normal Assessment & Plan Assessment/Plan (1) COVID-19: PLAN: 1. COVID-19 pneumonia-patient will be continued on his present medication, he is out of the window for remdesivir #2 acute hypoxic respiratory failure secondary to #1-pulse ox will be monitored #3 morbid obesity #4 type 2 diabetes #5 hyperlipidemia Charges/Coding Visit Charges Inpatient E&M: 93985 Subs Hosp L2
[2021-02-08 21:00] LABS: Bedside Glucose 337 mg/dL (70-110)
[2021-02-08] MEDS: 0.9% Saline Lock 10 ML Syringe IV (22:17)
[2021-02-08] MEDS: Atorvastatin Calcium 20 MG Tablet PO (22:22)
[2021-02-08 22:45] LABS: Bedside Glucose 333 mg/dL (70-110)
[2021-02-09] VITALS (13 sets, daily range): BP systolic 100–126; BP diastolic 58–82; PULSE 64–79; RESP 18–20; TEMP 36.1–36.6; O2SAT 91–97
[2021-02-09] MEDS: Insulin Human 75/25 Kwickpen 25 UNIT SC (08:49)
[2021-02-09] MEDS: Insulin Lispro 100 UNIT/ML INSULN.PEN SC ×4 (08:49→21:40)
[2021-02-09] MEDS: guaiFENesin 1,200 MG Tablet 1200 MG PO ×2 (08:50→21:39)
[2021-02-09] MEDS: Aspirin 81 MG TAB.CHEW PO (08:51)
[2021-02-09] MEDS: Magnesium Chloride 64 MG Delay Rel.Tablet PO ×3 (08:51→16:17)
[2021-02-09] MEDS: dexAMETHasone 2 MG TABLET 6 MG PO (08:51)
[2021-02-09] MEDS: Metoprolol Tartrate 50 MG Tablet PO ×2 (08:51→21:39)
[2021-02-09] MEDS: Enoxaparin 40 MG/0.4 ML Syringe SC ×2 (08:51→21:40)
[2021-02-09] MEDS: Levothyroxine 175 MCG Tablet PO (08:51)
[2021-02-09 10:11] LABS: Bedside Glucose 255 mg/dL (70-110)
[2021-02-09] MEDS: Insulin Human 75/25 Kwickpen 35 UNIT SC (16:16)
[2021-02-09 16:50] LABS: Bedside Glucose 318 mg/dL (70-110)
[2021-02-09 16:50] LABS: Bedside Glucose 311 mg/dL (70-110)
--- NOTE | 2021-02-09 19:44 | PCM.PN.HOSP ---
Subjective Subjective Patient was seen and examined today, he remains on nasal cannula oxygen at 5 L at rest. He does not complain of any fever, chills, or shortness of breath on minimal exertion or at rest. Objective Data Objective Data Vital Signs: Vital Signs Temp Pulse Resp BP Pulse Ox 97.7 F L 73 18 126/82 H 97 02/09/21 15:20 02/09/21 15:20 02/09/21 15:20 02/09/21 15:20 02/09/21 15:20 Oxygen Flow Rate (L/min) 5 Oxygen Delivery Method Nasal Cannula Weight: 190.3 kg Body Mass Index (BMI) 60.2 Intake & Output: Intake and Output for Last 24 Hours 02/07/21 02/08/21 02/09/21 23:59 23:59 23:59 Intake Total 2300 / 2800 950 / 950 Balance 2300 / 2800 950 / 950 Lab / Micro Data Result Diagrams: 02/08/21 06:58 02/08/21 06:58 Labs: Laboratory Results - last 24 hr 02/08/21 16:22: POC Glucose 337 H 02/08/21 22:09: POC Glucose 333 H 02/09/21 08:45: POC Glucose 255 H 02/09/21 12:29: POC Glucose 311 H 02/09/21 16:15: POC Glucose 318 H Micro: Microbiology 02/07/21 05:50 Mucosa - Nose Influenza Types A,B Direct FA (GLENN) - Final Physical Exam Const alert, oriented x3, no apparent distress and healthy appearing General Appearance: cooperative, well kempt and well developed Orientation / Consciousness: awake, oriented to person, oriented to place and oriented to time Nutritional Appearance: morbidly obese HEENT normocephalic and moist oral mucous membranes Eyes PERRL, EOMs intact bilaterally and conjunctivae normal Neck nuchal rigidity, supple, no JVD and thyroid normal General: trachea midline Resp normal respiratory effort, no retractions, no use of accessory muscles and clear to auscultation bilaterally Auscultation: Negative for rales, rhonchi or wheezes Cardio regular rate, regular rhythm, S1 normal heart sound, S2 normal heart sound, no murmurs, no rub and no gallops GI normal to inspection, nondistended, normoactive bowel sounds, soft to palpation, non-tender and non-distended Extremity no clubbing, cyanosis or edema Skin no rashes or lesions noted General Skin Exam: no breakdown Neuro oriented x3, CN's II-XII intact bilaterally, no focal motor deficits and no sensory deficits noted Sensorium / Orientation: awake and alert Speech: speech normal Psych thought process normal and affect normal Assessment & Plan Assessment/Plan (1) COVID-19: PLAN: 1. COVID-19 pneumonia-patient will be continued on his present medication, he is out of the window for remdesivir #2 acute hypoxic respiratory failure secondary to #1-pulse ox will be monitored, patient will be ambulated tomorrow to see if his oxygen requirement is sufficient to be discharged home. #3 morbid obesity #4 type 2 diabetes-blood sugars have been high due to dexamethasone usage. #5 hyperlipidemia Charges/Coding Visit Charges Inpatient E&M: 73779 Subs Hosp L2
[2021-02-09] MEDS: Atorvastatin Calcium 20 MG Tablet PO (21:40)
[2021-02-09 23:40] LABS: Bedside Glucose 329 mg/dL (70-110)
[2021-02-10] VITALS (7 sets, daily range): BP systolic 128–146; BP diastolic 79–119; PULSE 69–76; RESP 18; TEMP 36.5–36.6; O2SAT 82–95
[2021-02-10] MEDS: dexAMETHasone 2 MG TABLET 6 MG PO (08:18)
[2021-02-10] MEDS: Enoxaparin 40 MG/0.4 ML Syringe SC (08:18)
[2021-02-10] MEDS: Levothyroxine 175 MCG Tablet PO (08:19)
[2021-02-10] MEDS: guaiFENesin 1,200 MG Tablet 1200 MG PO (08:19)
[2021-02-10] MEDS: Magnesium Chloride 64 MG Delay Rel.Tablet PO ×2 (08:19→12:34)
[2021-02-10] MEDS: Insulin Human 75/25 Kwickpen 25 UNIT SC (08:21)
[2021-02-10] MEDS: Insulin Lispro 100 UNIT/ML INSULN.PEN SC ×2 (08:23→12:26)
[2021-02-10] MEDS: Metoprolol Tartrate 50 MG Tablet PO (08:25)
[2021-02-10 12:20] LABS: Bedside Glucose 234 mg/dL (70-110)
[2021-02-10] MEDS: Aspirin 81 MG TAB.CHEW PO (12:27)
--- NOTE | 2021-02-10 15:11 | CASEMGMT ---
Pt qualifies for home O2, referral faxed to [facility]. TC to [place] to make aware of referral and portable tank taken from stock.
--- NOTE | 2021-02-10 15:49 | DCINST_ITS ---
Discharge Instructions Diet Discharge Diet: No restrictions Activity Discharge Activity: Return to Normal Activity Additional Activity Instructions:: Quarantine for a total of 20 days after your first COVID-19 symptoms Follow Up Care Test Results: Test results from this visit will be discussed in further detail at your follow-up appointment, if applicable. Discharge Plan Admission Admit Date/Time: 02/07/21 19:58 Primary Reason for Your Visit: COVID-19 pneumonia Attending Provider: Vinicius Dunbar Primary Care Provider: [facility],Linnette Pierre Instructions Additional Instructions / Restrictions: Use oxygen at 4 liters via nasal cannula at rest and during exertion Quarantine for 20 days from your first COVID symptoms Get COVID vaccine in March 2021 Discharge Orders/Prescriptions Prescriptions: New dexamethasone 2 mg Tablet 6 mg PO DAILY Qty: 18 RF: 0 Continued (DME) lancets [Easy Touch Lancets] 28 gauge misc See Rx Instructions .ROUTE .MEDSUPPLY Qty: 100 RF: 6 diclofenac sodium 1 % gel 1 gm topical BID PRN PRN (Reason: Pain) RF: 0 atorvastatin 20 mg tablet 20 mg PO QHS RF: 0 aspirin 81 MG tablet,chewable 81 mg PO DAILY@0800 RF: 0 magnesium oxide 250 MG tablet 250 mg PO TIDCM RF: 0 cholecalciferol (vitamin D3) 1,250 mcg (50,000 unit) capsule 50,000 unit PO QWEEK RF: 0 Trulicity 3 mg/0.5 mL pen injector 3 mg subcut QWEEK RF: 0 Humalog Mix 50-50 Insuln U-100 100 unit/mL (50-50) suspension See Rx Instructions SC BID RF: 0 levothyroxine 175 mcg tablet 175 mcg PO DAILY RF: 0 (DME) Blood Glucose Test Strip See Rx Instructions .ROUTE .MEDSUPPLY Qty: 100 RF: 6 (DME) blood-glucose meter [OneTouch Verio Flex meter] Misc See Rx Instructions .ROUTE .MEDSUPPLY Qty: 1 RF: 0 (DME) OneTouch Verio test strips Strip See Rx Instructions .ROUTE .MEDSUPPLY Qty: 100 RF: 8 (DME) lancets [OneTouch Delica Plus Lancet] 33 gauge misc See Rx Instructions .ROUTE .MEDSUPPLY Qty: 100 RF: 8 metoprolol tartrate 50 mg tablet 50 mg PO BID Qty: 180 RF: 1 (DME) insulin syringe-needle U-100 [BD Insulin Syringe Ultra-Fine] 0.5 mL 31 gauge x 5/16 syringe See Rx Instructions .ROUTE .MEDSUPPLY Qty: 100 RF: 6 Referrals / Follow Up: [facility],Linnette Pierre [Primary Care Provider] - See Referral Note (for follow up after quarantine is over) Disposition Disposition (needs filled in before D/C Order can be placed): Home, Self Care
--- NOTE | 2021-02-10 16:23 | PCM.DC.SUM ---
Providers Date of Admission: 02/07/21 Date of Discharge: 02/10/21 Primary Care Physician: [facility] Reason For Visit: ACUTE HYPOXEMIC REPIRATORY FAILURE Diagnosis Discharge Diagnosis (1) COVID-19: Status: Acute Code(s): U07.1 - COVID-19 Plan: 1. COVID-19 pneumonia #2 acute hypoxic respiratory failure secondary to #1. #3 morbid obesity #4 type 2 diabetes #5 hyperlipidemia Medications at Discharge Home Medications aspirin 81 mg PO DAILY@0800 08/11/16 magnesium oxide 250 mg PO TIDCM 04/16/18 blood sugar diagnostic #100 ea 11/28/19 lancets 28 gauge #100 ea 02/27/20 OneTouch Verio Flex meter #1 each NS 06/29/20 OneTouch Verio test strips #100 each NS 06/29/20 lancets 33 gauge #100 each 06/29/20 metoprolol tartrate 50 mg tablet 50 mg PO BID #180 tab 10/01/20 atorvastatin 20 mg tablet 20 mg PO QHS tab 12/21/20 diclofenac sodium 1 % topical gel 1 gm TOPICAL BID PRN PRN 12/21/20 insulin syringe-needle U-100 0.5 mL 31 gauge x 5/16 #100 ea 01/21/21 Humalog Mix 50-50 Insuln U-100 See Rx Instructions SC BID 02/07/21 Trulicity 3 mg SUBCUT QWEEK 02/07/21 cholecalciferol (vitamin D3) 50,000 unit PO QWEEK 02/07/21 levothyroxine 175 mcg PO DAILY 02/07/21 dexamethasone 6 mg PO DAILY #18 tab 02/10/21 Hospital Course Operations None Procedures None Summary of Care Provided Minutes Spent on Discharge: 32 Hospital Course: This 45-year-old white male was seen in the emergency room at [facility] with complaints of increasing shortness of breath, he had been diagnosed with Covid approximately 8 days prior. Patient symptoms that actually started 2 weeks prior. Patient was placed on oxygen via nasal cannula, chest x-ray was performed which showed changes indicative of Covid pneumonia. Patient was admitted to [place] [address], he was placed on IV dexamethasone and he was out of the window for remdesivir. Patient improved during his hospitalization, on 02/10/2021, patient was seen and examined: On examination he appeared in good health and spirits. Vital signs as documented. Skin warm and dry and without overt rashes. Neck without JVD, neck was supple, trachea midline, thyroid was normal. Lungs clear bilaterally, normal air movement was noted. Heart exam notable for regular rhythm, normal sounds and absence of murmurs, rubs or gallops. Abdomen unremarkable and without evidence of organomegaly, masses, or abdominal aortic enlargement. Bowel sounds are present, abdomen is not distended. Extremities nonedematous, no cyanosis was noted, no clubbing was noted. Neuro: Cranial nerves II through XII are grossly intact, no focal motor deficits were noted, sensation to light touch and pinprick intact, motor exam 5/5 throughout. Psych: Patient is alert and oriented x3, he does not appear anxious or depressed, he does not appear agitated. At the time of discharge, patient required 4 L of oxygen via nasal cannula at rest and during exertion to maintain his pulse ox. He was expected to use this oxygen and and outside of his home as directed. Patient was discharged home in stable condition on 02/10/2021. Weight / BMI Weight Weight: 190.3 kg Body Mass Index (BMI) 60.2 ABG / Lab / Microbiology Data Result Diagrams: 02/08/21 06:58 02/08/21 06:58 Laboratory: Laboratory Results - last 24 hr 02/09/21 12:29: POC Glucose 311 H 02/09/21 16:15: POC Glucose 318 H 02/09/21 21:36: POC Glucose 329 H 02/10/21 08:17: POC Glucose 234 H Microbiology: Microbiology 02/07/21 05:50 Mucosa - Nose Influenza Types A,B Direct FA (GLENN) - Final D/C Instructions Discharge Diet: No restrictions Additional Activity Instructions: Quarantine for a total of 20 days after your first COVID-19 symptoms Meaningful Use Info Meaningful Use Diagnoses (Choose all that apply): None applicable Discharge Plan Admission Admit Date/Time: 02/07/21 19:58 Primary Reason for Your Visit: COVID-19 pneumonia Attending Provider: [facility]inic[facility] Dunbar [facility] Inst[facility] Additional Instructions / Restrictions: Use oxygen at 4 liters via nasal cannula at rest and during exertion Quarantine for 20 days from your first COVID symptoms Get COVID vaccine in March 2021 Discharge Orders/Prescriptions Prescriptions: New dexamethasone 2 mg Tablet 6 mg PO DAILY Qty: 18 RF: 0 Continued (DME) lancets [Easy Touch Lancets] [address] [facility] See Rx Instructions .ROUTE .MEDSUPPLY Qty: 100 RF: 6 diclofenac sodium 1 % gel 1 gm topical BID PRN PRN (Reason: Pain) RF: 0 atorvastatin 20 mg tablet 20 mg PO QHS RF: 0 aspirin 81 MG tablet,chewable 81 mg PO DAILY@0800 RF: 0 magnesium oxide 250 MG tablet 250 mg PO TIDCM RF: 0 cholecalciferol (vitamin D3) 1,250 mcg (50,000 unit) capsule 50,000 unit PO QWEEK RF: 0 Trulicity 3 mg/0.5 mL pen injector 3 mg subcut QWEEK RF: 0 Humalog Mix 50-50 Insuln U-100 100 unit/mL (50-50) suspension See Rx Instructions SC BID RF: 0 levothyroxine 175 mcg tablet 175 mcg PO DAILY RF: 0 (DME) Blood Glucose Test Strip See Rx Instructions .ROUTE .MEDSUPPLY Qty: 100 RF: 6 (DME) blood-glucose meter [OneTouch Verio Flex meter] [facility] See Rx Instructions .ROUTE .MEDSUPPLY Qty: 1 RF: 0 (DME) OneTouch Verio test strips Strip See Rx Instructions .ROUTE .MEDSUPPLY Qty: 100 RF: 8 (DME) lancets [OneTouch Delica Plus Lancet] [address] [facility] See Rx Instructions .ROUTE .MEDSUPPLY Qty: 100 RF: 8 metoprolol tartrate 50 mg tablet 50 mg PO BID Qty: 180 RF: 1 (DME) insulin syringe-needle U-100 [BD Insulin Syringe Ultra-Fine] 0.5 mL 31 gauge x 5/16 syringe See Rx Instructions .ROUTE .MEDSUPPLY Qty: 100 RF: 6 [facility] - See Referral Note (for follow up after quarantine is over) Disposition Disposition (needs filled in before D/C Order can be placed): Home, Self Care Charges/Coding Visit Charges Inpatient E&M: 52584 Disch Hosp
[2021-02-10 21:35] LABS: Bedside Glucose 256 mg/dL (70-110)
== END 2021-02-10 16:59 | disposition home or self-care (01) | DRG 137 ==
LOC: ED 17:51 → MS3 20:09
PROVIDERS: Admitting Provider Hospitalist; Emergency Provider Emergency Medicine; Visit Provider Internal Medicine
DX: U07.1 COVID-19 (principal); J12.82 Pneumonia due to coronavirus disease 2019; J96.01 Acute respiratory failure with hypoxia; E66.01 Morbid (severe) obesity due to excess calories; E78.5 Hyperlipidemia, unspecified; E11.65 Type 2 diabetes mellitus with hyperglycemia; E87.1 Hypo-osmolality and hyponatremia; E87.6 Hypokalemia; I12.9 Hypertensive chronic kidney disease with stage 1 through stage 4 chronic kidney disease, or unspecified chronic kidney disease; E11.22 Type 2 diabetes mellitus with diabetic chronic kidney disease; N18.31 Chronic kidney disease, stage 3a; E03.9 Hypothyroidism, unspecified; Z79.4 Long term (current) use of insulin; Z79.899 Other long term (current) drug therapy; Z87.891 Personal history of nicotine dependence; Z68.44 Body mass index [BMI] 60.0-69.9, adult
CPT/HCPCS: 36415; 71045; 71275; 80048; 80053; 82962; 83735; 84484; 85025; 85379; 87804; 93005; 94640; 99285; Q9967; 90686; A4216

== ENCOUNTER → 2021-03-08 11:13 | Outpatient (CLI) | payer MEDICAID, SELFPAY ==
--- NOTE | 2021-03-08 11:22 | RAD_ITS ---
STUDY: X-RAY CHEST REASON FOR EXAM: Male, 45 years old. COVID pneumonia. Follow-up. TECHNIQUE: Frontal and lateral views of the chest. COMPARISON: 02/07/2021. FINDINGS: Volume inspiration with diffuse mild interstitial pattern which is decreased since the prior study. Patchy peripheral opacities in both lower lung polk. There is no demonstrated pleural abnormality. Normal size heart. Normal mediastinum and susana. Normal visualized pulmonary arteries. Normal visualized aortic arch and descending thoracic aorta. Normal visualized ribs, clavicles, and shoulders. There is no demonstrated abnormality of the visualized soft tissue structures of the upper abdomen. RAD/Chest PA and Lateral IMPRESSION: Substantial improvement with residual low volume inspiration and mild diffuse interstitial pattern with patchy opacities bilaterally. No acute abnormality. Electronically Signed: Junior Mcgregor MD at 11:38 EST , Service support ,
== END ==
PROVIDERS: Referring Provider Nurse Practitioner Adult Health; Visit Provider Nurse Practitioner Adult Health
DX: U09.9 Post COVID-19 condition, unspecified (principal)
CPT/HCPCS: 71046

== ENCOUNTER 2021-05-24 12:11 | Outpatient (CLI) | payer MEDICAID, SELFPAY ==
--- NOTE | 2021-05-24 12:30 | RAD_ITS ---
STUDY: X-RAY CHEST REASON FOR EXAM: Male, 45 years old. Fever and cough, recent Covid TECHNIQUE: 2 PA and lateral views of the chest. COMPARISON: 03/08/2021 FINDINGS: Chronic interstitial changes without a superimposed acute pulmonary process, previously described bibasilar opacifications have cleared. There is no demonstrated pleural abnormality. Normal size heart. Normal mediastinum and susana. Normal visualized pulmonary arteries. Normal visualized aortic arch and descending thoracic aorta. Normal visualized thoracic spine. Normal visualized ribs, clavicles, and shoulders. There is no demonstrated abnormality of the visualized soft tissue structures of the upper abdomen. RAD/Chest PA and Lateral IMPRESSION: No acute pulmonary process Electronically Signed: Obey Quinonez MD at 10:08 EDT ,
== END 2021-05-24 23:59 | disposition home or self-care (01) ==
PROVIDERS: Referring Provider Nurse Practitioner Adult Health; Visit Provider Nurse Practitioner Adult Health
DX: U09.9 Post COVID-19 condition, unspecified (principal)
CPT/HCPCS: 71046

== ENCOUNTER 2021-06-07 10:05 | Outpatient (CLI) | payer MEDICAID, SELFPAY | END 2021-06-07 23:59 | disposition home or self-care (01) | LOC: SL 06-16 10:05 | PROVIDERS: Visit Provider Nurse Practitioner Adult Health | DX: G47.33 Obstructive sleep apnea (adult) (pediatric) (principal) | CPT/HCPCS: 95811 ==

== ENCOUNTER 2021-06-07 10:41 | Outpatient (CLI) | payer MEDICAID, SELFPAY ==
--- NOTE | 2021-06-07 12:37 | PFTCOMP ---
COMPLETE PULMONARY FUNCTION TEST INTERPRETATION Brief HPI: Patient is a 45 year old male, currently under the care of Cherelle Flowers, who presents to [facility] for complete pulmonary function tests secondary to diagnosis of post COVID. Respiratory therapist reports good effort and reproducible results. Interpretation: Forced expiration spirometry shows no large airways obstructive ventilatory defect with an FEV1 of 93% predicted. There is no significant bronchodilator response by strict ATS criteria. Spirograms are of good quality and plateau normally. The respiratory flow volume loop shows a normal pattern. Lung volumes by body plethysmography show a normal total lung capacity at 6.1 L, 90% predicted. All other lung volumes are within normal limits. Diffusion capacity by carbon monoxide is decreased at 61% predicted. The airway resistance is normal. No previous pulmonary function tests were available for review. Impression: Isolated reduction in diffusion capacity consistent with a pulmonary vascular disorder. Consider walking oximetry and echocardiogram if not completed previously.
== END 2021-06-07 23:59 | disposition home or self-care (01) ==
PROVIDERS: Referring Provider Nurse Practitioner Adult Health; Visit Provider Nurse Practitioner Adult Health
DX: G47.33 Obstructive sleep apnea (adult) (pediatric) (principal)
CPT/HCPCS: 94060; 94726; 94729; 95811

== ENCOUNTER → 2021-07-05 | Outpatient (CLI) | payer MEDICAID, SELFPAY ==
--- NOTE | 2021-07-05 10:47 | RAD_ITS ---
INDICATION: PAIN IN L KNEE EXAMINATION/TECHNIQUE: X-RAY - LEFT XR Knee Complete 4 Views or More 5 VIEWS COMPARISON: Left knee radiograph from 12/18/2018 FINDINGS: Stable mild medial compartment and moderate lateral compartment osteoarthritis with marginal osteophytic spurring along the lateral tibial plateau. Stable moderate patellofemoral joint osteoarthritis with marginal supra and infrapatellar osteophyte formation. No acute fracture or subluxation. Joint spaces are otherwise intact. Soft tissues are unremarkable. No significant joint effusion. RAD/Knee 4 or More Views IMPRESSION: Stable mild medial compartment, moderate lateral compartment, and moderate patellofemoral joint osteoarthritis. Electronically Signed: Jim Neal, at 13:31 EDT ,
[2021-07-05 11:39] LABS: Absolute Lymphocyte Count 1.25 X10^3/uL (0.83-4.51); Absolute Neutrophil Count 2.5 X10^3/uL (2.0-7.7); Basophil# 0.03 X10^3/uL; Basophil% 0.7 % (0-1); Eosinophil# 0.13 X10^3/uL; Hematocrit 42.9 % (40-54); Hemoglobin 15.4 g/dL (13.0-16.5); Lymphocyte # 1.25 X10^3/ul (0.83-4.51); Lymphocyte % 29.2 % (19-41); Mean Corp Hgb Conc 35.9 g/dL (32-36); Mean Corpuscular Hgb 31.7 pg (27.0-32.0); Mean Corpuscular Volume 88.3 fL (80-94); Monocyte# 0.36 X10^3/uL; Monocyte% 8.4 % (0-10); NRBC Flagged by Analyzer 0 % (0-5); Neutrophil # 2.49 X10^3/uL (2.7-7.7); Neutrophil % 58.2 % (47-70); Platelet Count 127 K/mm3 (150-450); RBC Distribution Width CV 14.6 % (11.6-14.6); RBC Distribution Width SD 46.9 fl (35.1-43.9); Red Blood Count 4.86 M/mm3 (4.6-6.2); White Blood Count 4.3 K/mm3 (4.4-11.0)
[2021-07-05 12:10] LABS: ALB/GLOB Ratio 0.9 RATIO (0.9-2.4); AST(SGOT) 43 U/L (15-37); Alanine Aminotransfer ALT/SGPT 38 U/L (16-61); Albumin, Serum 3.6 g/dL (3.2-5.0); Alkaline Phosphatase 187 U/L (45-117); Anion Gap 6 (5-15); BUN 27 mg/dL (7-18); BUN/Creat Ratio 17.2 RATIO (10-20); Calcium,Total 8.9 mg/dL (8.5-10.1); Chloride 102 mmol/L (98-107); Cholesterol 142 mg/dL (200); Creatinine, Serum 1.57 mg/dL (0.70-1.30); EST Glomerular Filtration Rate 51 mL/min (>60); Est Glom Filt Rate - Afr Amer 61 mL/min (>60); Globulin 4.1 g/dL (2.2-4.2); Glucose 357 mg/dL (74-106); High Density Lipoprotein 31 mg/dL; Potassium 4.2 mmol/L (3.5-5.1); Protein, Total 7.7 g/dL (6.4-8.2); Sodium Level 130 mmol/L (136-145); Triglycerides 198 mg/dL; Very Low Density Lipoprotein 40 mg/dL (5-40)
== END | disposition home or self-care (01) ==
LOC: LAB 10:33
PROVIDERS: Referring Provider Nurse Practitioner Adult Health; Visit Provider Nurse Practitioner Adult Health
DX: I10 Essential (primary) hypertension (principal); M25.562 Pain in left knee; M17.10 Unilateral primary osteoarthritis, unspecified knee
CPT/HCPCS: 36415; 73564; 80053; 80061; 85025

== ENCOUNTER → 2021-07-29 | Outpatient (CLI) | payer MEDICAID, SELFPAY | END | disposition home or self-care (01) | LOC: SL 09:55 | PROVIDERS: Visit Provider Nurse Practitioner Acute Care | DX: Z00.00 Encounter for general adult medical examination without abnormal findings (principal) ==

== ENCOUNTER → 2021-09-09 | Outpatient (CLI) | payer MEDICAID, SELFPAY ==
[2021-09-09 18:04] LABS: Absolute Neutrophil Count 4.5 X10^3/uL (2.0-7.7); Basophil# 0.03 X10^3/uL; Basophil% 0.5 % (0-1); Eosinophil# 0.17 X10^3/uL; Eosinophils% 2.6 % (0-5); Hematocrit 44.5 % (40-54); Hemoglobin 15.8 g/dL (13.0-16.5); Lymphocyte % 20.1 % (19-41); Mean Corp Hgb Conc 35.5 g/dL (32-36); Mean Corpuscular Volume 90.3 fL (80-94); Mean Platelet Vol. 8.8 fl (6.2-12.0); Monocyte# 0.45 X10^3/uL; NRBC Flagged by Analyzer 0 % (0-5); Neutrophil # 4.49 X10^3/uL (2.7-7.7); Neutrophil % 69.3 % (47-70); Platelet Count 153 K/mm3 (150-450); RBC Distribution Width CV 14.6 % (11.6-14.6); RBC Distribution Width SD 47.3 fl (35.1-43.9); Red Blood Count 4.93 M/mm3 (4.6-6.2); White Blood Count 6.5 K/mm3 (4.4-11.0)
[2021-09-09 18:05] LABS: Erythrocyte Sedimentation Rate 25 mm/hr (0-20)
[2021-09-09 18:37] LABS: ALB/GLOB Ratio 0.9 RATIO (0.9-2.4); AST(SGOT) 43 U/L (15-37); Alanine Aminotransfer ALT/SGPT 35 U/L (16-61); Albumin, Serum 3.7 g/dL (3.2-5.0); Alkaline Phosphatase 151 U/L (45-117); Anion Gap 7 (5-15); BUN 26 mg/dL (7-18); BUN/Creat Ratio 17.3 RATIO (10-20); Calcium,Total 9.3 mg/dL (8.5-10.1); Chloride 104 mmol/L (98-107); EST Glomerular Filtration Rate 53 mL/min (>60); Est Glom Filt Rate - Afr Amer 64 mL/min (>60); Ferritin 68 ng/mL (26-388); Globulin 4.2 g/dL (2.2-4.2); Glucose 192 mg/dL (74-106); LDH 260 U/L (87-241); Protein, Total 7.9 g/dL (6.4-8.2); Sodium Level 132 mmol/L (136-145)
[2021-09-09 18:39] LABS: International Normalized Ratio 1.1
[2021-09-09 18:42] LABS: Hemoglobin A1c 8.4 % (3.8-5.6)
[2021-09-09 19:12] LABS: HIV - WCH Non-Reactive (Nonreactive)
[2021-09-14 13:07] LABS: Anti-Centromere B Ab <0.2 AI (0.0-0.9); Anti-Chromatin <0.2 AI (0.0-0.9); Anti-Jo <0.2 AI (0.0-0.9); Anti-Scleroderma-70 AB <0.2 AI (0.0-0.9); RNP Ab 0.5 AI (0.0-0.9); SJOGREN'S Anti-SS-A test < 0.2 AI (0.0-0.9); SJOGREN'S Anti-SS-B test < 0.2 AI (0.0-0.9); Smith Ab <0.2 AI (0.0-0.9)
[2021-09-14 16:27] LABS: Anti-Mitochondrial AB <20.0 Units (0.0-20.0); Anti-dsDNA Ab 1 IU/mL (0-9)
[2021-09-15 05:07] LABS: Angiotensin Convert Enzyme 79 U/L (14-82); Ceruloplasmin 30.1 mg/dL (16.0-31.0); Cytoplasmic Ab (C-ANCA) <1:20 titer (Neg:<1:20); HEPATITIS B SURFACE AG Negative (Negative); Hep C Antibodies 0.1 s/co ratio (0.0-0.9); Hepatitis A IgM Antibody Negative (Negative); Hepatitis B Core AB IgM Negative (Negative)
[2021-09-15 10:40] LABS: AFP, Tumor Marker 2.5 ng/mL (0.0-6.9); Anti-Smooth Muscle ABS 13 Units (0-19); Copper, Serum or Plasma 166 ug/dL (69-132); Haptoglobin < 10 mg/dL (23-355); Perinuclear Ab (P-ANCA) <1:20 titer (Neg:<1:20)
== END | disposition home or self-care (01) ==
LOC: LAB 16:21
PROVIDERS: Referring Provider Internal Medicine Gastroenterology; Visit Provider Internal Medicine Gastroenterology
DX: K76.9 Liver disease, unspecified (principal)
CPT/HCPCS: 36415; 80053; 80074; 82105; 82140; 82164; 82390; 82525; 82728; 83010; 83036; 83516; 83615; 85025; 85610; 85652; 86140; 86225; 86235; 86256; 86703

== ENCOUNTER → 2021-09-20 | Outpatient (CLI) | payer MEDICAID, SELFPAY ==
--- NOTE | 2021-09-20 18:48 | CT_ITS ---
STUDY: CT ABDOMEN AND PELVIS WITH AND WITHOUT CONTRAST REASON FOR EXAM: Male, 46 years old. Splenomegaly RADIATION DOSAGE (If Supplied By Facility): CTDIvol = ( 22.13 ) mGy, DLP = ( 2737.44 ) mGycm TECHNIQUE: Transaxial images were obtained from the dome of the diaphragm to the symphysis pubis with oral contrast. Oral Readi-CAT was administered. Sagittal and coronal images were reconstructed. Individualized dose optimization techniques were used for this CT. COMPARISON: Comparison is made with prior study dated 01/06/2018. FINDINGS: The visualized lung bases are unremarkable. The visualized portions of the heart are within normal limits. There is decreased attenuation of the liver consistent with steatosis. Mild hepatomegaly. There are surgical clips in the gallbladder fossa consistent with a prior cholecystectomy. There is moderate splenomegaly. Normal pancreas. Normal bilateral adrenal glands. Normal right kidney. 2.9 cm cyst in the anterior lower pole of the left kidney. Punctate calcification in the lower pole of the left kidney. Normal visualized stomach. Normal small intestine. Normal colon. The appendix is visualized and appears normal. Normal abdominal aorta. Normal inferior vena cava. Normal retroperitoneum. Normal urinary bladder. Normal abdominal wall. Normal osseous structures. CT/CT Abd/Pelvis W/WO Contrast IMPRESSION: Hepatosplenomegaly. Diffuse fatty infiltration of the liver. Status post cholecystectomy. Electronically Signed: Jt Anderson MD at 8:43 EDT ,
== END | disposition home or self-care (01) ==
LOC: CT 18:48
PROVIDERS: Referring Provider Internal Medicine Gastroenterology; Visit Provider Internal Medicine Gastroenterology
DX: N28.1 Cyst of kidney, acquired (principal); R16.1 Splenomegaly, not elsewhere classified; K76.0 Fatty (change of) liver, not elsewhere classified; R16.2 Hepatomegaly with splenomegaly, not elsewhere classified; Z90.49 Acquired absence of other specified parts of digestive tract
CPT/HCPCS: 74178; Q9967; A4216

== ENCOUNTER → 2021-10-05 | Outpatient (CLI) | payer MEDICAID, SELFPAY ==
--- NOTE | 2021-10-05 09:30 | US_ITS ---
STUDY: ABDOMINAL ULTRASOUND - RIGHT UPPER QUADRANT REASON FOR VISIT: Male, 46 years old LIVER EVAL TECHNIQUE: Ultrasound evaluation of the right upper quadrant was performed with real-time and static howard-scale imaging. TECHNICAL QUALITY: Limited. Examination limited due to obesity. COMPARISON: Comparison is made with prior study 12/19/2018. FINDINGS: Liver: The liver measures 13.9 cm. There is increased echogenicity consistent with fatty infiltration. The bile ducts are within normal limits. There is hepatic color flow. The direction of portal flow is hepatopetal. There is no demonstrated mass lesion. Gallbladder: The patient is status post cholecystectomy. Common Bile Duct (C.B.D.): The common bile duct measures 4.7 mm. Pancreas: There is nonvisualization of the pancreas due to overlying bowel gas. Right Kidney: Normal size of the right kidney. The right kidney measures 10.9 cm x 5 cm x 6.3 cm. Normal renal cortex. The right cortex measures 2.4 cm. There is no demonstrated renal mass or cyst. There is no right hydronephrosis. US/Abdomen Limited IMPRESSION: Diffuse fatty infiltration of the liver. Electronically Signed: Jt Anderson MD at 12:20 EDT ,
--- NOTE | 2021-10-05 09:31 | US_ITS ---
STUDY: ABDOMINAL ULTRASOUND - ELASTOGRAPHY REASON FOR VISIT: Male, 46 years old. Fatty infiltration of the liver. TECHNIQUE: Liver stiffness measurements were obtained on a Milk RS 85 ultrasound machine using a CA 1-7 probe following the SRU guidelines. 3 measurements were obtained using a 2-D-SWE method. The IQR/M was 22 % suggesting a quality data set. TECHNICAL QUALITY: Adequate. COMPARISON: Comparison is made with prior examination done earlier today. FINDINGS: Liver: Fatty infiltration of the liver. Median liver stiffness measured 11.2 kPa. US/Elastography Parenchyma/Organ IMPRESSION: Liver stiffness measures 11.2 kPa compatible with F2-F3 (Mild to moderate liver fibrosis) Metavir score. Electronically Signed: Jt Anderson MD at 12:21 EDT ,
== END | disposition home or self-care (01) ==
LOC: US 09:17
PROVIDERS: Referring Provider Internal Medicine Gastroenterology; Visit Provider Internal Medicine Gastroenterology
DX: K76.0 Fatty (change of) liver, not elsewhere classified (principal); R93.9 Diagnostic imaging inconclusive due to excess body fat of patient
CPT/HCPCS: 76705; 76981

== ENCOUNTER → 2021-12-20 | Outpatient (CLI) | payer MEDICAID, SELFPAY ==
[2021-12-20 17:06] LABS: Thyroid Stim Hormone (TSH) 1.55 uIU/mL (0.358-3.74)
== END | disposition home or self-care (01) ==
LOC: LAB 15:19
PROVIDERS: Referring Provider Nurse Practitioner Family; Visit Provider Nurse Practitioner Family
DX: E03.9 Hypothyroidism, unspecified (principal)
CPT/HCPCS: 36415; 84439; 84443

== ENCOUNTER → 2022-02-23 | Outpatient (CLI) | payer MEDICAID, SELFPAY ==
[2022-02-23 12:47] LABS: Absolute Lymphocyte Count 0.67 X10^3/uL (0.83-4.51); Absolute Neutrophil Count 3.1 X10^3/uL (2.0-7.7); Basophil# 0.03 X10^3/uL; Basophil% 0.7 % (0-1); Eosinophil# 0.13 X10^3/uL; Hematocrit 41.4 % (40-54); Hemoglobin 14.6 g/dL (13.0-16.5); Lymphocyte # 0.67 X10^3/ul (0.83-4.51); Lymphocyte % 15.6 % (19-41); Mean Corp Hgb Conc 35.3 g/dL (32-36); Mean Corpuscular Hgb 33.5 pg (27.0-32.0); Mean Platelet Vol. 9.6 fl (6.2-12.0); Monocyte# 0.39 X10^3/uL; Monocyte% 9.1 % (0-10); NRBC Flagged by Analyzer 0 % (0-5); Neutrophil # 3.06 X10^3/uL (2.7-7.7); Neutrophil % 71.1 % (47-70); Platelet Count 133 K/mm3 (150-450); RBC Distribution Width CV 15.3 % (11.6-14.6); RBC Distribution Width SD 51.7 fl (35.1-43.9); Red Blood Count 4.36 M/mm3 (4.6-6.2); White Blood Count 4.3 K/mm3 (4.4-11.0)
[2022-02-23 13:01] LABS: International Normalized Ratio 1.1; Prothrombin Time (Protime)PT. 13.4 SECONDS (11.7-14.9)
[2022-02-23 13:04] LABS: ALB/GLOB Ratio 0.9 RATIO (0.9-2.4); AST(SGOT) 53 U/L (15-37); Alanine Aminotransfer ALT/SGPT 41 U/L (16-61); Albumin, Serum 3.7 g/dL (3.2-5.0); Alkaline Phosphatase 222 U/L (45-117); Anion Gap 4 (5-15); BUN 25 mg/dL (7-18); BUN/Creat Ratio 12.1 RATIO (10-20); Chloride 102 mmol/L (98-107); Creatinine, Serum 2.07 mg/dL (0.70-1.30); EST Glomerular Filtration Rate 37 mL/min (>60); Est Glom Filt Rate - Afr Amer 44 mL/min (>60); Globulin 4.1 g/dL (2.2-4.2); Glucose 388 mg/dL (74-106); LDH 274 U/L (87-241); Protein, Total 7.8 g/dL (6.4-8.2); Sodium Level 131 mmol/L (136-145)
[2022-02-23 13:16] LABS: Erythrocyte Sedimentation Rate 28 mm/hr (0-20)
[2022-02-26 21:02] LABS: Copper, Serum or Plasma 137 ug/dL (69-132); Haptoglobin < 10 mg/dL (23-355)
== END | disposition home or self-care (01) ==
LOC: LAB 11:22
PROVIDERS: Internal Medicine Gastroenterology
DX: I10 Essential (primary) hypertension (principal); K76.9 Liver disease, unspecified
CPT/HCPCS: 36415; 80053; 82525; 83010; 83615; 85025; 85610; 85652; 86140

== ENCOUNTER → 2022-02-28 | Outpatient (CLI) | payer MEDICAID, SELFPAY ==
[2022-02-28 13:02] LABS: PTHIN 19.5 pg/mL (18.4-80.1)
[2022-02-28 13:08] LABS: ALB/GLOB Ratio 0.9 RATIO (0.9-2.4); AST(SGOT) 53 U/L (15-37); Alanine Aminotransfer ALT/SGPT 35 U/L (16-61); Albumin, Serum 3.7 g/dL (3.2-5.0); Alkaline Phosphatase 172 U/L (45-117); Anion Gap 5 (5-15); BUN 29 mg/dL (7-18); BUN/Creat Ratio 13.1 RATIO (10-20); Calcium,Total 9.8 mg/dL (8.5-10.1); Chloride 100 mmol/L (98-107); Creatinine, Serum 2.21 mg/dL (0.70-1.30); EST Glomerular Filtration Rate 34 mL/min (>60); Est Glom Filt Rate - Afr Amer 41 mL/min (>60); Globulin 4.3 g/dL (2.2-4.2); Glucose 235 mg/dL (74-106); Potassium 4.7 mmol/L (3.5-5.1); Sodium Level 131 mmol/L (136-145); Thyroid Stim Hormone (TSH) 2.62 uIU/mL (0.358-3.74)
== END | disposition home or self-care (01) ==
LOC: LAB 12:05
PROVIDERS: Referring Provider Internal Medicine Endocrinology, Diabetes & Metabolism; Visit Provider Internal Medicine Endocrinology, Diabetes & Metabolism
DX: E55.9 Vitamin D deficiency, unspecified (principal)
CPT/HCPCS: 36415; 80053; 82306; 83970; 84443

== ENCOUNTER → 2022-03-16 | Outpatient (CLI) | payer MEDICAID, SELFPAY ==
[2022-03-16] VITALS (9 sets, daily range): BP systolic 94–118; BP diastolic 48–81; PULSE 71–86; RESP 17–27; TEMP 36.8; O2SAT 92–96; BMI 64.0
--- NOTE | 2022-03-16 | LIVB_PTH ---
PATIENT: CHRISTA SILVERMAN LOC: CT U#:[id number] AGE/SX: 46/M ROOM: RE03/16/[address]: Dr. Filipe Wall DO : 1975 BED: DIS: 03/16/2022 SPEC #: [id number] RECD: 03/16/22 09:23 STATUS: CHIVO SULY #: [id number] ARYAN: 03/16/22 00:[address]: Filipe Wall DEPT: SURGICAL PATHOLOGY RECD BY: Jamel Chavez ENTERED: 03/16/22 10:32 SP TYPE: LIVER BX OTHR DR: [facility] Tissues: Liver, NOS Procedures: PAS with Diastase (control) Trichrome (control) Special Stain Group II Special Stain Group I PAS Stain (control) Surgery Specimen Level V AFB Stain (control) GMS Stain (control) Retic (control) Iron Stain (control) HEADER OPERATION: Ultrasound-guided liver biopsy right lobe PRE-OP DIAGNOSIS: Cirrhosis TISSUE SUBMITTED: Liver x4 MICROSCOPIC DIAGNOSIS Liver, CT-guided core biopsy: Non-necrotizing granulomatous inflammation. Negative for acid fast bacilli and fungal organisms. Cirrhosis. Mild limiting necrosis with focal lobular necrosis (grade II, modified Knodell scoring system for chronic hepatitis). AM:jared 03/18/2022 COMMENT Iron stain does not reveal accumulation of intraparenchymal iron. Trichrome stain reveals broad band fibrosis consistent with cirrhosis. Reticulin stain reveals a normal hepatic architecture. PAS and PASD stains do not reveal accumulation of abnormal proteins. AFB and GMS stains with matched controls are negative for micro-organisms. All matched controls are appropriate. Case has been reviewed in consultation with Dr. Wyman who concurs with the above diagnosis. IDC:MAGALY MICROSCOPIC DESCRIPTION Slides are reviewed. GROSS DESCRIPTION Received in fixative is one container labeled with the patient's name and designated liver biopsy. The specimen consists of four elongated fragments of sweeney soft tissue measuring 0.5 to 0.9 cm in length and 0.1 cm in diameter. The entire specimen is submitted in one cassette. / MAGALY:jared 03/16/2022 TC:3 CPT: 79104, 59196 x5, 32320 x2
[2022-03-16 07:44] LABS: Platelet Count 129 K/mm3 (150-450)
--- NOTE | 2022-03-16 07:45 | US_ITS ---
PROCEDURE: Ultrasound DIRECTED CORE LIVER BIOPSY INDICATION: Male, 46 years old. Cirrhosis -- order changed from CT to US d/t pt BMI PHYSICIAN: Dr. GIANA Mckeon CONSENT: Written informed consent was obtained having explained the risks, benefits and alternatives in detail with the patient who accepted the risks and agreed to proceed. Laboratory review and clinical assessment was performed. CONSCIOUS SEDATION PROTOCOL: The Drugs used were: 2 mg Versed, IV., and 50 mcg Fentanyl, IV. The sedation time was: 15 minutes. Conscious sedation was started at 9:02 AM and terminated at 9:17 AM. The conscious sedation protocol was independently monitored. TECHNIQUE: Using ultrasound image guidance with image documentation, a suitable location in the right lobe of the liver was identified. Using an anterior approach, puncture of the liver was uneventful with an 18-gauge core needle system. 4, 18-gauge core samples were obtained, and submitted in formalin to the pathologist for further assessment. US/Liver Biopsy Ultrasound IMPRESSION: 1. Ultrasound directed core needle biopsy of the liver, using CT image guidance with image documentation as described. 2. Conscious Sedation protocol utilized with independent monitoring. Electronically Signed: Jt Anderson MD at 10:28 EST ,
[2022-03-16 08:45] LABS: International Normalized Ratio 1.1; Prothrombin Time (Protime)PT. 14.3 SECONDS (11.7-14.9)
[2022-03-16 08:46] LABS: Partial Thromboplast Time 30.5 Seconds (24.1-36.2)
[2022-03-16] MEDS: fentaNYL 100 MCG/2 ML Ampul IV (09:02)
[2022-03-16] MEDS: Midazolam 2 MG/2 ML Syringe IV (09:04)
[2022-03-16] MEDS: Lidocaine 1% (20 ml mdv) 20 ML Vial INFILT (09:04)
== END | disposition home or self-care (01) ==
PROVIDERS: Referring Provider Internal Medicine Gastroenterology; Visit Provider Internal Medicine Gastroenterology
DX: K74.60 Unspecified cirrhosis of liver (principal)
CPT/HCPCS: 47000; 36415; 76942; 85049; 85610; 85730; 88307; 88312; 88313; 99156; J7050

== ENCOUNTER → 2022-03-26 | Outpatient (CLI) | payer MEDICAID, SELFPAY ==
[2022-03-30 07:08] LABS: IgG, Quant 1351 mg/dL (603-1613); Immunoglobulin G, Subclass 1 712 mg/dL (248-810); Immunoglobulin G, Subclass 2 493 mg/dL (130-555); Immunoglobulin G, Subclass 3 201 mg/dL (15-102); QNTFERON TB Mitogen Value > 10.00 IU/mL (.); QNTFERON TB Nil Value 0.07 IU/mL (.); QNTFERON TB1+ Ag Value 0.06 IU/mL (.); QNTFERON TB2+ Ag Value 0.08 IU/mL (.)
[2022-03-30 09:36] LABS: Immunoglobulin G, Subclass 4 8 mg/dL (2-96); QNTIFERON TB Positive Criteria Negative (Negative)
== END | disposition home or self-care (01) ==
LOC: LAB 09:41
PROVIDERS: Visit Provider Internal Medicine Gastroenterology
DX: K76.9 Liver disease, unspecified (principal)
CPT/HCPCS: 36415; 82784; 82787; 86480

== ENCOUNTER → 2022-03-31 | Outpatient (CLI) | payer MEDICAID, SELFPAY ==
[2022-03-31 12:28] LABS: Hemoglobin 14.7 g/dL (13.0-16.5); Mean Corp Hgb Conc 35.9 g/dL (32-36); Mean Corpuscular Hgb 33.8 pg (27.0-32.0); Mean Corpuscular Volume 94.3 fL (80-94); Mean Platelet Vol. 8.4 fl (6.2-12.0); Platelet Count 122 K/mm3 (150-450); RBC Distribution Width CV 14.7 % (11.6-14.6); RBC Distribution Width SD 50.5 fl (35.1-43.9); Red Blood Count 4.35 M/mm3 (4.6-6.2); White Blood Count 4.9 K/mm3 (4.4-11.0)
[2022-03-31 12:51] LABS: PTHIN 23.6 pg/mL (18.4-80.1)
[2022-03-31 12:54] LABS: Vitamin D,25 Hydroxy 30.9 ng/mL
[2022-03-31 12:55] LABS: Albumin, Serum 3.8 g/dL (3.2-5.0); BUN 26 mg/dL (7-18); BUN/Creat Ratio 13.5 RATIO (10-20); Calcium,Total 9.5 mg/dL (8.5-10.1); Chloride 101 mmol/L (98-107); Creatinine, Serum 1.92 mg/dL (0.70-1.30); EST Glomerular Filtration Rate 40 mL/min (>60); Est Glom Filt Rate - Afr Amer 48 mL/min (>60); Glucose 301 mg/dL (74-106); Phosphorus 3.6 mg/dL (2.5-4.9); Potassium 4.1 mmol/L (3.5-5.1); Sodium Level 132 mmol/L (136-145)
[2022-03-31 15:05] LABS: Protein, Urine (Random) 85.6 mg/dL (<11.9); Protein:Creat Ratio 744 mg/g CRE (0-200)
== END | disposition home or self-care (01) ==
LOC: LAB 11:55
DX: N18.32 Chronic kidney disease, stage 3b (principal)
CPT/HCPCS: 36415; 80069; 82306; 82570; 83970; 84156; 85027

== ENCOUNTER 2022-07-19 11:39 | Day surgery (SDC) | payer MEDICAID, SELFPAY ==
--- NOTE | 2022-07-19 11:59 | HP.PCM_ITS ---
History and Physical Date of Admission: 07/19/22 46 M who presents to the office today for Follow up. PMH sleep apnea BIPAP; DMII; HTN; hyperlipidemia; CLARENCE; cholelithiasis; perianal/perirectal abscess s/p surgery .06.29; respiratory failure. 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 US 12.19.18 finding liver measurement 19.4cm with diffusely increased echogenicity of the liver; cholecystectomy; splenomegaly. *[facility] established clinic 09.09.21 with referral from PCP for evaluation of elevated liver enzymes. AST 43, alk phos 187, ALT WNL; platelet 127 (thrombocy topenia noted since ). Liver disease, biochemical workup and imaging. Biochemical workup?HIV, CMP, ferritin, coagulation, CBC, AMA, ROSIBEL comp, hepatitis, SEB, AFP, ANCA, ASM ab, ceruloplasmin, ammonia without pertinent abnormalities. ESR H25, CRP H10, haptoglobin L<10, A1c H8.4, LDH H260, Copper H166 CT abd/pel 7.02.01?noting hepatomegaly with steatosis; s/p cholecystectomy; moderate splenomegaly. US RUQ and elastography 10.05.21?liver measures 13.9cm with fatty infiltration. Liver stiffness measures 11.2kPa F3. OV 12.8.22 liver disease, biochemical workup and liver biopsy. Biochemical workup?CMP (Na L131), coagulation, CBC (plt L133) without pertinent abnormality. Copper H137, CRP H12.5, ESR H28, LDH H274, haptoglobin L<10 Liver Biopsy .07.03?non necrotizing granulomatous inflammation; mild limiting necrosis with focal lobular necrosis Grade II; cirrhosis with normal hepatic architecture. No microorganisms noted. IGG subclasses. Start budesonide; if IgG4+also utilize Imuran. 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 [facility] attempted to contact [facility] who declined to schedule at that time and would call them back. OV 3.2.23 Continues to have nausea and generalized abdominal pain which is relieved with pepto-bismol on most occasions. Mounjaro continues and has been increased with time, has been stable dose in the last 4-6 weeks. No confusion, sleep disturbance, balance issues/falling. Weights 05.. 435lbs 12.. 446lbs 03.. 446lbs MELD? FIB-4 06.30.22 -? 2.58 12.14.22 20? 2.93 ROS Const Constitutional: No anorexia, fatigue, fever(s), weight change or sleep problems Eyes Eyes: No change in vision ENT ENT: No abnormal hearing, difficulty swallowing, mouth lesions, tongue swelling or throat swelling Resp Respiratory: No cough or shortness of breath Cardio Cardiology: No chest pain at rest, chest pain with exertion, shortness of breath or dyspnea on exertion Gastro GI: No difficulty swallowing Genitourinary Male: No difficulty urinating or burning urination Musc Musculoskeletal: No joint pain, joint swelling, muscle weakness or decreased muscle mass Skin Skin: No hair loss in leg, yellowing of the eye, itchy eyes, rash, skin ulcer or skin swelling Neuro Neurology: No abnormal hearing, abnormal movements, confusion, unsteady gait/balance or memory loss Psych Psychiatric: No anxiety, No confusion and No memory loss Endo Endocrine: No fatigue or weight change Aller/Imm Allergy/Immunologic: No itchy eyes, throat swelling or tongue swelling Christian/Lymp Hematologic/Lymphatic: No easy bleeding, easy bruising or enlarged lymph nodes Exam Const General: cooperative, comfortable, no acute distress and ill appearing chronically Nutritional Appearance: obese Orientation: alert, awake and oriented [facility] hearing grossly normal bilaterally Eyes General: appearance normal, both eyes and all related structures Alignment and Position: alignment normal Sclera: sclerae normal Neck Neck: normal visual inspection and full ROM Carotids: normal carotid upstroke Chest Chest palpation & inspection: normal inspection of the chest Resp Effort & Inspection: normal respiratory effort, able to speak in complete sentences, symmetric chest movement, normal respiratory pattern, no audible wheezes and no cough Auscultation: Bilateral: Clear to Auscultation Cardio Rate: regular rate Rhythm: regular rhythm Heart Sounds: S1 normal and S2 normal Bruits: no carotid bruits GI Inspection: normal to inspection and obesity Musc Cervical Spine: normal cervical lordosis Thoracic/Lumbar Spine: thoracic and lumbar spine normal to inspection Skin General: no rashes or lesions noted Lesions: no lesions Rashes: no rashes Trauma: no lacerations or abrasions Wounds: no wounds Neuro General: patient alert, patient awake and patient oriented x3 Cognition: normal cognition Speech: speech normal Gait: normal gait Extrem General: normal to inspection, full ROM and no pedal edema Psych Appearance: grossly normal Mental Status: mental status grossly normal Mood: congruent mood Affect: normal affect Speech and Movement: speech and movement normal Attitude: cooperative Thought Process: normal Thought Content: normal Judgment: judgment good Quality Reporting Tobacco Screening ([facility] 138) Smoking Status: Former smoker Assessment and Plan Assessment and Plan (1) Cirrhosis: ?Status:?Chronic ?Plan: 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 He is not showing any signs of decompensation at this time.? His disease is complicated by splenomegaly, thrombocytopenia.? He denies any itching, jaundice, sleeping difficulties, weight gain.? He will be started on ursodiol 300 mg p.o. twice daily.? He will undergo screening for varices.? He already takes metoprolol 50 mg twice daily so he will not need nadolol for varices.? He is doing daily weights.? I had talked about putting him on Lasix and/or Aldactone.? 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 His current creatinine is ranging around 1.9-2.1.? He had an alpha-fetoprotein that was 2.2 and his last ammonia was 25.? He is not on lactulose at this time.? He is having 2-3 bowel movements a day.? We will recheck his ammonia level.? We also will have more recommendations after he undergoes an upper endoscopy.? We offered him a referral to [facility] hepatology program.? However he says that is too far and he may consider being evaluated in the future for liver transplant. (2) Primary biliary cholangitis: ?Status:?Acute (3) PINEDA (nonalcoholic steatohepatitis): ?Status:?Acute ?Plan: We discussed glucose control and weight loss as the primary goals to decrease his risk of worsening liver disease secondary to obesity and diabetes. (4) Thrombocytopenia: ?Status:?Acute ?Plan: Monitor platelet count. ? ? ? Medications: New ursodiol 300 mg? PO BID 60 caps 9RF I have examined the patient and the H&P has been reviewed. There are no clinical changes since date of exam.
[2022-07-19] MEDS: Lactated Ringers 1,000 ML 15 ML IV (12:09)
[2022-07-19 12:10] VITALS: BP 152/93; PULSE 82; RESP 17; TEMP 36.6; O2SAT 94; BMI 64.5
--- NOTE | 2022-07-19 12:45 | EGD_PTH ---
PATIENT: CHRISTA SILVERMAN LOC: EN U#:[id number] AGE/SX: 47/M ROOM: RE07/19/[address]: Dr. Filipe Wall DO : 1975 BED: DIS: 07/19/2022 SPEC #: [id number] RECD: 07/19/22 14:40 STATUS: CHIVO SULY #: [id number] ARYAN: 07/19/22 12:[address]: Filipe Wall DEPT: SURGICAL PATHOLOGY RECD BY: Jamel Chavez ENTERED: 07/20/22 10:12 SP TYPE: EGD BIOPSY OT DR: Linnette [facility] Tissues: Esophagus, NOS Procedures: Special Stain Group II Surgery Specimen Level IV Alcian Blue/PAS (control) HEADER OPERATION: [place] [place] DIAGNOSIS: Cirrhosis TISSUE SUBMITTED: Distal esophagus biopsy MICROSCOPIC DIAGNOSIS Distal esophagus, biopsy: A fragment of gastric mucosa with moderate chronic inflammation. Intestinal metaplasia (goblet cell metaplasia) not identified. See comment. MAGALY:jared 07/21/2022 COMMENT Alcian blue/PAS stain with matched control is used in the evaluation of the specimen. MICROSCOPIC DESCRIPTION Slides are reviewed. GROSS DESCRIPTION Received in fixative is one container labeled with the patient's name and designated distal esophagus biopsy. The specimen consists of one irregular fragment of light sweeney soft tissue that measures 0.3 x 0.3 x 0.1 cm. The specimen is totally submitted in one cassette. / MAGALY:jared 07/20/2022 TC:3 CPT: 86692, 42063
[2022-07-19 12:55] LABS: Bedside Glucose 315 mg/dL (74-106)
[2022-07-19 13:05] VITALS: BP 123/74; BP 152/93; PULSE 81; RESP 18; TEMP 36.8; O2SAT 92
--- NOTE | 2022-07-19 13:07 | OP.EGD_ITS ---
Patient Name: Sky Alcantar Procedure Date: 07/19/2022 12:47 PM Date of : 1975 Age: 47 Procedure: Upper GI endoscopy Indications: Dyspepsia, Cirrhosis with suspected esophageal varices Providers: Filipe Wall DO Referring MD: Linnette Pierre [facility] Medicines: Monitored Anesthesia Care Patient Profile: This is a 47 year old male. Refer to note in patient chart for documentation of history and physical. Patient has symptoms of chronic abdominal cramping and chronic dyspepsia. Complications: No immediate complications. Procedure: Pre-Anesthesia Assessment: - Prior to the procedure, a History and Physical was performed, and patient medications and allergies were reviewed. The risks and benefits of the procedure and the sedation options and risks were discussed with the patient. All questions were answered and informed consent was obtained. Patient identification and proposed procedure were verified by the physician in the pre-procedure area. Mental Status Examination: alert and oriented. Airway Examination: normal oropharyngeal airway and neck mobility. Respiratory Examination: clear to auscultation. CV Examination: normal. Prophylactic Antibiotics: The patient does not require prophylactic antibiotics. Prior Anticoagulants: The patient has taken no previous anticoagulant or antiplatelet agents. After reviewing the risks and benefits, the patient was deemed in satisfactory condition to undergo the procedure. The anesthesia plan was to use monitored anesthesia care (MAC). Immediately prior to administration of medications, the patient was re-assessed for adequacy to receive sedatives. The heart rate, respiratory rate, oxygen saturations, blood pressure, adequacy of pulmonary ventilation, and response to care were monitored throughout the procedure. The physical status of the patient was re-assessed after the procedure. After obtaining informed consent, the endoscope was passed under direct vision. Throughout the procedure, the patient's blood pressure, pulse, and oxygen saturations were monitored continuously. The Endoscope was introduced through the mouth, and advanced to the second part of duodenum. The upper GI endoscopy was accomplished without difficulty. The patient tolerated the procedure well. Scope In: 12:58:47 PM Scope Out: 1:00:45 PM Total Procedure Duration Time 0 hours 1 minute 58 seconds Findings: The Z-line was irregular and was found 40 cm from the incisors. Biopsies were taken with a cold forceps for histology. Verification of patient identification for the specimen was done. A large amount of food (residue) was found in the gastric body. Severe portal hypertensive gastropathy was found in the gastric body. No gross lesions were noted in the first portion of the duodenum. Food (residue) was found in the duodenal bulb and in the first portion of the duodenum. Impression: - Z-line irregular, 40 cm from the incisors. Biopsied. - A large amount of food (residue) in the stomach. - Portal hypertensive gastropathy. - No gross lesions in the first portion of the duodenum. - Retained food in the duodenum. Recommendation: - Await pathology results. - Gastric emptying study - Repeat upper endoscopy in 4 months for surveillance. - Continue present medications. Procedure Code(s): --- Professional --- 33930, Esophagogastroduodenoscopy, flexible, transoral; with biopsy, single or multiple CPT copyright 2017 [employer]. All rights reserved. The codes documented in this report are preliminary and upon licensed massage practitioner review may be revised to meet current compliance requirements. Filipe Wall DO 07/19/2022 1:07:26 PM This report has been signed electronically. Number of Addenda: 0 Note Initiated On: 07/19/2022 12:47 PM
--- NOTE | 2022-07-19 13:08 | OP.CCLET_ITS ---
07/19/2022 Linnette Pierre [facility] Re : Upper [facility] This procedure was performed on Tuesday, July 19, 2022. My impressions and recommendations are as follows: Impressions : - Z-line irregular, 40 cm from the incisors. Biopsied. - A large amount of food (residue) in the stomach. - Portal hypertensive gastropathy. - No gross lesions in the first portion of the duodenum. - Retained food in the duodenum. Recommendations : - Await pathology results. - Gastric emptying study - Repeat upper endoscopy in 4 months for surveillance. - Continue present medications. My findings are described in the full procedure note, which is enclosed. If I can be of further assistance, please feel free to contact me at . Sincerely, Filipe Friend, 07/19/2022 1:07:26 PM This report has been signed electronically.
[2022-07-19 13:10] VITALS: BP 143/92; BP 152/93; PULSE 86; RESP 18; O2SAT 96
[2022-07-19 13:15] VITALS: BP 144/90; BP 152/93; PULSE 80; RESP 18; O2SAT 93
[2022-07-19 13:20] VITALS: BP 144/93; BP 152/93; PULSE 87; RESP 18; TEMP 36.5; O2SAT 94
[2022-07-19 13:38] VITALS: BP 152/93
== END 2022-07-19 14:16 | disposition home or self-care (01) ==
LOC: EN 11:39 → AC 11:41
PROVIDERS: Visit Provider Internal Medicine Gastroenterology
PROC: 0DJ08ZZ Inspection of Upper Intestinal Tract, Via Natural or Artificial Opening Endoscopic (ICD-10-PCS; CPT 43235; principal; 2022-07-19 12:40)
DX: K20.90 Esophagitis, unspecified without bleeding (principal); K76.6 Portal hypertension; K74.60 Unspecified cirrhosis of liver; E11.22 Type 2 diabetes mellitus with diabetic chronic kidney disease; E66.01 Morbid (severe) obesity due to excess calories; Z68.44 Body mass index [BMI] 60.0-69.9, adult; D69.6 Thrombocytopenia, unspecified; Z79.4 Long term (current) use of insulin; N18.30 Chronic kidney disease, stage 3 unspecified; Z87.891 Personal history of nicotine dependence; K75.81 Nonalcoholic steatohepatitis (NASH); K83.09 Other cholangitis; I12.9 Hypertensive chronic kidney disease with stage 1 through stage 4 chronic kidney disease, or unspecified chronic kidney disease; E78.5 Hyperlipidemia, unspecified; Z79.82 Long term (current) use of aspirin; Z79.899 Other long term (current) drug therapy
CPT/HCPCS: 43239; 82962; 88305; 88313; J7120; J2405

== ENCOUNTER → 2022-08-16 | Outpatient (CLI) | payer MEDICAID, SELFPAY ==
--- NOTE | 2022-08-16 11:41 | NM_ITS ---
CLINICAL: 47-year-old male with history of clinical gastroparesis. SEMI-SOLID PHASE 99m Tc SULFUR COLLOID GASTRIC EMPTYING STUDY COMPARISON: None available FINDINGS: The patient was administered 1.1 mCi of 99m Tc sulfur colloid mixed with oatmeal and consumed per os. Image acquisitions in the anterior-posterior projections were obtained for 60 minutes. There is prompt visualization of the stomach. There is no gastroesophageal reflux identified The T ? raw data emptying was calculated to be 49.13 minutes, (Normal: 12-56 minutes). NM/Gastric Emptying Study IMPRESSION: 1. NORMAL 99m Tc sulfur colloid semi-solid phase (oatmeal) gastric emptying imaging examination. A. There is normal and preserved semi-solid phase gastric emptying compared to normal controls. (Edwin et al, J Nucl Med Tech 38: 186, 2010). Electronically Signed: Jose Eduardo Crooks, at 22:36 EDT ,
== END | disposition home or self-care (01) ==
LOC: NM 11:39
PROVIDERS: Referring Provider Internal Medicine Gastroenterology; Visit Provider Internal Medicine Gastroenterology
DX: E11.9 Type 2 diabetes mellitus without complications (principal); Z79.4 Long term (current) use of insulin
CPT/HCPCS: 78264; A9503

== ENCOUNTER 2022-09-02 16:28 | Emergency (ER) | payer MEDICAID, SELFPAY ==
[2022-09-02 16:30] VITALS: BP 154/95; PULSE 94; RESP 20; TEMP 36.1; O2SAT 95; BMI 64.1
--- NOTE | 2022-09-02 17:03 | EX.ED.DYSGE1 ---
HPI History of Present Illness Chief Complaint: Cough Informant: patient Narrative Narrative: Patient woke up this morning with pain in her right hemithorax. He noticed it more in his back and and states a little later he felt it more round in his right chest, everything on the right side. Hurts more to move around and use his right arm his right hand dominant. States he works at [employer], but he was off yesterday and did not injure anything that he knows of. He denies any numbness tingling. He states he is a big jayme and because of that is chronically dyspneic with exertion he states that is maybe a little worse today because it hurts more to breathe and to move, but he is not frankly dyspneic. Denies any fevers or chills. He states he coughed up some thick yellowish sputum this morning when he woke up but he does that almost every morning and does not feel like he has a cold or other illness. No recent travel out of the area no history of DVT or PE chronic swelling of both legs no different. PFSH [facility] Medical History BiPAP (biphasic positive airway pressure) dependence COVID-19 Diabetes Elevated liver enzymes Fatty liver Former smoker History of edema History of renal disease History of steroid therapy Hyperlipidemia Hypertension Rash Sleep apnea Thyroid disease Vitamin D deficiency Home Medications aspirin 81 mg chewable tablet 81 mg PO DAILY@0800 heart health 08/11/16 [History Last Taken 04/15/18] magnesium oxide 250 mg PO TIDCM supplement 04/16/18 [History Last Taken 04/15/18] blood sugar diagnostic (Blood Glucose Test strips) #100 ea 11/28/19 [Rx Last Taken Unknown] lancets 28 gauge (Easy Touch Lancets) #100 ea 02/27/20 [Rx Last Taken Unknown] OneTouch Verio Flex meter (blood-glucose meter) #1 ea 06/29/20 [Rx Last Taken Unknown] metoprolol tartrate 50 mg tablet 50 mg PO BID blood pressure #180 tabs 10/01/20 [Rx Last Taken Unknown] atorvastatin 20 mg tablet 20 mg PO QHS cholestoral 12/21/20 [History Last Taken Unknown] cholecalciferol (vitamin D3) 1,250 mcg (50,000 unit) capsule 50,000 unit PO QWEEK supplement 11/28/21 [History Last Taken 02/04/21] BD Insulin Syringe 1 mL 25 gauge x 5/8 (insulin syringe-needle U-100) #100 ea 05/24/21 [Rx Last Taken Unknown] lancets 33 gauge (OneTouch Delica Plus Lancet) #100 ea 08/11/21 [Rx Last Taken Unknown] insulin lispro protamine-lispro 100 unit/mL (50-50) subcutaneous susp (Humalog Mix 50-50 Insuln U-100) See Rx Instructions subcut BID DM #42 mL 04/11/22 [Rx Last Taken Unknown] ursodiol 300 mg capsule 300 mg PO BID #60 caps 05/12/22 [Rx Last Taken Unknown] pen needle, diabetic 32 gauge x 5/32 (BD Ultra-Fine Shani Pen Needle) #100 ea 06/01/22 [Rx Last Taken Unknown] insulin syringe-needle U-100 0.5 mL 31 gauge x 5/16 (BD Insulin Syringe Ultra-Fine) #100 ea 06/02/22 [Rx Last Taken Unknown] levothyroxine 175 mcg tablet 175 mcg PO DAILY #30 tabs 06/07/22 [Rx Last Taken Unknown] tirzepatide 10 mg/0.5 mL subcutaneous pen injector (Mounjaro) 10 mg (0.5 mL) subcut QWEEK #2 mL 08/19/22 [Rx Last Taken Unknown] OneTouch Verio test strips (blood sugar diagnostic) #100 ea 08/25/22 [Rx Last Taken Unknown] azithromycin 250 mg tablet 250 mg PO DAILY #6 TABLETS 09/02/22 [Rx Last Taken Unknown] Allergy/AdvReac Type Severity Reaction Status Date / Time wool AdvReac Severe Hives Verified 07/19/22 12:08 Family History Grandfather Family history of heart disease Family history of hypertension Mother Family history of high cholesterol COPD (chronic obstructive pulmonary disease) Grandfather Family history of high cholesterol Sleep apnea Aunt Family history of hypertension Other Family history of hypertension in mother Surgical History history of gallbladder sugery History of incision and drainage History of tonsillectomy and adenoidectomy Social History Smoking Status: Former smoker alcohol intake: never ROS ROS ED Constitutional Constitutional ED: Denies chills or fever(s) Eyes Eyes: Denies change in vision or diplopia ENT ENT ED: Denies rhinorrhea or sore throat Cardiovascular Cardiovascular: Reports chest pain and leg edema; Denies palpitations Respiratory/Chest Respiratory/Chest: Reports cough and dyspnea Gastrointestinal Gastrointestinal: Denies abdominal pain, diarrhea, nausea or vomiting Genitourinary Genitourinary ED: Denies dysuria or hematuria Musculoskeletal Musculoskeletal: Reports back pain; Denies neck pain Integumentary Denies abscess or rash Neurologic Neurologic: Denies headache(s), paresthesias or weakness Psychiatric Psychiatric: Denies anxiety or suicidal thoughts EXAM Physical Exam Const Vital Signs: 09/02/22 16:30 09/02/22 17:11 Temperature 96.9 F L Temperature Source Temporal Pulse Rate 94 Respiratory Rate 20 H Respiratory Effort Normal Respiratory Depth Normal Respiratory Pattern Normal Blood Pressure 154/95 H Blood Pressure Mean 114 Pulse Ox 95 Oxygen Delivery Method Room Air Positive well nourished and well developed General Appearance ED: well developed and NAD HEENT Reports moist mucous membranes normocephalic and atraumatic Eyes PERRL and EOMs intact bilaterally Neck full ROM and supple Chest Wall inspection of chest normal Chest Narrative: Tender in the right chest/ribs, just right of the sternum near the level of the nipple without crepitance or step-off or obvious signs of trauma. Resp normal respiratory effort and clear to auscultation bilaterally Cardio regular rate, regular rhythm and no murmurs Rate: Negative for tachycardic GI non-tender and non-distended Auscultation: normoactive bowel sounds Palpation: soft Back/Spine no CVA tenderness Back/Spine Narrative: Tender in the rhomboids on the right without bony scapular or spinal tenderness, reproducing the patient's pain, which is also reproducible when he moves his right upper extremity around in different directions. No rashes. General Back: other FROM Extremity normal to inspection Extremity Narrative: No calf tenderness General Extremety ED: Yes edema; Negative for pulses abnormal or tenderness General Extremity: edema bilateral lower extremity Details: severe; Negative for pulses abnormal Neuro oriented x3, CN's II-XII intact bilaterally and no sensory deficits noted Sensorium / Orientation: awake and alert Motor Exam: strength 5/5 throughout Skin no rashes or lesions noted and no wounds MDM MDM MDM Narrative Medical decision making narrative: PERC Rule for Pulmonary Embolism from [email or web address] on 09/02/2022 All calculations should be rechecked by clinician prior to use RESULT SUMMARY: 0 criteria No need for further workup, as <2% chance of PE. If no criteria are positive and clinician?s pre-test probability is <15%, PERC Rule criteria are satisfied. INPUTS: Age >=0 ?> 0 = No HR >=00 ?> 0 = No O? sat on room air ?> 0 = No Unilateral leg swelling ?> 0 = No Hemoptysis ?> 0 = No Recent surgery or trauma ?> 0 = No Prior PE or DVT ?> 0 = No Hormone use ?> 0 = No Given that the patient's PERC score is 0 no further testing indicated in order to rule out PE in this context. EKG is unremarkable, I do not think his symptoms sound cardiac. Chest x-ray was obtained 2 views of my interpretation show possible right basilar pneumonia. The exam is limited due to obesity. Radiology was in agreement, I reviewed his interpretation. I am going to treat him given his cough with a Z-Munir and advised close a patient follow-up. I do think the majority of his pain is muscular. Radiography Diagnostic Testing: Clinical Impression(s) from Imaging Studies Chest X-Ray 09/02/22 17:15 IMPRESSION: 1. Increased interstitial prominence at the RIGHT lung base. Early atypical interstitial infiltrate is a consideration. 2. No congestive failure, consolidation or effusion. Electronically Signed: Jose Eduardo Gómez MD at 17:35 EDT , Rhythm Strip Rhythm Strip: Sinus Rhythm Rate: 85 Ectopy: None EKG Initial EKG: Attestation: I personally reviewed and interpreted this EKG as follows: Interpretation: Sinus Rhythm and No Acute Injury Pattern Discharge Plan Triage Chief Complaint: Cough ED Provider: Jax Pena Dx/Rx/DC Orders Clinical Impression: Acute thoracic myofascial strain, Pneumonia Instructions: ED Back Sprain/Strain, ED Pneumonia (Adult) Prescriptions: New azithromycin [azithromycin] 250 mg tablet 250 mg PO DAILY Qty: 6 0RF Rx Instructions: take double dose (2 tabs) on first dose/day No Action (DME) lancets [Easy Touch Lancets] 28 gauge misc See Rx Instructions .ROUTE .MEDSUPPLY Qty: 100 6RF Rx Instructions: 3 times daily atorvastatin 20 mg tablet 20 mg PO QHS Label Comments: TAKE 1 TABLET BY MOUTH AT BEDTIME (DME) BD Insulin Syringe 1 mL 25 gauge x 5/8 syringe See Rx Instructions .ROUTE .MEDSUPPLY Qty: 100 6RF Rx Instructions: bid ursodiol 300 mg capsule 300 mg PO BID Qty: 60 9RF aspirin 81 MG tablet,chewable 81 mg PO DAILY@0800 magnesium oxide 250 MG tablet 250 mg PO TIDCM cholecalciferol (vitamin D3) 1,250 mcg (50,000 unit) capsule 50,000 unit PO QWEEK Rx Instructions: Every (DME) Blood Glucose Test Strip See Rx Instructions .ROUTE .MEDSUPPLY Qty: 100 6RF Rx Instructions: test 3 times daily (DME) blood-glucose meter [OneTouch Verio Flex meter] Mis See Rx Instructions .ROUTE .MEDSUPPLY Qty: 1 0RF Rx Instructions: As directed metoprolol tartrate 50 mg tablet 50 mg PO BID Qty: 180 1RF (DME) lancets [OneTouch Delica Plus Lancet] 33 gauge misc See Rx Instructions .ROUTE .MEDSUPPLY Qty: 100 8RF Rx Instructions: tid Humalog Mix 50-50 Insuln U-100 100 unit/mL (50-50) suspension See Rx Instructions SC BID Qty: 42 6RF Rx Instructions: 50 units in am and 100 units at supper, subcutaneously twice a day; (DME) pen needle, diabetic [BD Ultra-Fine Shani Pen Needle] 32 gauge x 5/32 needle See Rx Instructions .Route Qty: 100 5RF Rx Instructions: BID (DME) insulin syringe-needle U-100 [BD Insulin Syringe Ultra-Fine] 0.5 mL 31 gauge x 5/16 syringe See Rx Instructions .ROUTE .MEDSUPPLY Qty: 100 6RF Rx Instructions: twice daily levothyroxine 175 mcg tablet 175 mcg PO DAILY Qty: 30 5RF Mounjaro 10 mg/0.5 mL pen injector 10 mg subcut QWEEK Qty: 2 4RF (DME) OneTouch Verio test strips Strip See Rx Instructions .ROUTE .MEDSUPPLY Qty: 100 8RF Rx Instructions: tid Primary Care Provider: [facility] Linnette Arshad Referrals: [facility] Jeancarlos,Linnette Pierre [Primary Care Provider] - 3-5 Days if not improving Disposition Disposition: Home, Self Care
[2022-09-02] MEDS: Ketorolac 60 MG/2 ML Vial IM (17:07)
--- NOTE | 2022-09-02 17:15 | RAD_ITS ---
INDICATION: R chest pain EXAMINATION/TECHNIQUE: X-RAY - XR Chest 2 Views COMPARISON: 05/24/2021 FINDINGS: LIFE-SUPPORT AND LINES: 1. None HEART AND VESSELS: The cardiac silhouette, pulmonary vasculature have normal appearance. No evidence of congestive failure. LUNGS AND PLEURAL SPACES: Mild interstitial prominence at the RIGHT lung base without consolidation or effusion. No pulmonary mass is noted. MEDIASTINUM AND HILAR REGIONS: No masses adenopathy noted. No areas of calcification. Visualized upper airway is normal in position. BONY ELEMENTS: No acute bony changes noted. RAD/Chest PA and Lateral IMPRESSION: 1. Increased interstitial prominence at the RIGHT lung base. Early atypical interstitial infiltrate is a consideration. 2. No congestive failure, consolidation or effusion. Electronically Signed: Jose Eduardo Gómez MD at 17:35 EDT ,
[2022-09-02 18:39] VITALS: BP 125/85; PULSE 72; RESP 18; O2SAT 96
== END 2022-09-02 18:41 | disposition home or self-care (01) ==
PROVIDERS: Emergency Provider Emergency Medicine; Visit Provider Emergency Medicine
DX: S29.019A Strain of muscle and tendon of unspecified wall of thorax, initial encounter (principal); E11.9 Type 2 diabetes mellitus without complications; J18.9 Pneumonia, unspecified organism; I10 Essential (primary) hypertension; E78.5 Hyperlipidemia, unspecified; Z87.891 Personal history of nicotine dependence; X58.XXXA Exposure to other specified factors, initial encounter
CPT/HCPCS: 71046; 93005; 96372; 99282

== ENCOUNTER → 2022-09-19 | Outpatient (CLI) | payer MEDICAID, SELFPAY ==
[2022-09-19 12:08] LABS: Absolute Lymphocyte Count 0.99 X10^3/uL (0.83-4.51); Absolute Neutrophil Count 2.6 X10^3/uL (2.0-7.7); Basophil# 0.03 X10^3/uL; Basophil% 0.7 % (0-1); Eosinophil# 0.11 X10^3/uL; Eosinophils% 2.7 % (0-5); Hematocrit 40.7 % (40-54); Hemoglobin 14.4 g/dL (13.0-16.5); Lymphocyte # 0.99 X10^3/ul (0.83-4.51); Mean Corp Hgb Conc 35.4 g/dL (32-36); Mean Corpuscular Hgb 32.5 pg (27.0-32.0); Mean Corpuscular Volume 91.9 fL (80-94); Monocyte# 0.35 X10^3/uL; Monocyte% 8.5 % (0-10); NRBC Flagged by Analyzer 0 % (0-5); Neutrophil # 2.63 X10^3/uL (2.7-7.7); Neutrophil % 63.9 % (47-70); Platelet Count 123 K/mm3 (150-450); RBC Distribution Width CV 14.4 % (11.6-14.6); RBC Distribution Width SD 47.8 fl (35.1-43.9); Red Blood Count 4.43 M/mm3 (4.6-6.2); White Blood Count 4.1 K/mm3 (4.4-11.0)
[2022-09-19 12:20] LABS: Erythrocyte Sedimentation Rate 30 mm/hr (0-20)
[2022-09-19 12:25] LABS: ALB/GLOB Ratio 0.8 RATIO (0.9-2.4); AST(SGOT) 66 U/L (15-37); Alanine Aminotransfer ALT/SGPT 48 U/L (16-61); Albumin, Serum 3.5 g/dL (3.2-5.0); Alkaline Phosphatase 262 U/L (45-117); Anion Gap 7 (5-15); BUN 23 mg/dL (7-18); BUN/Creat Ratio 12.8 RATIO (10-20); Calcium,Total 8.6 mg/dL (8.5-10.1); Chloride 104 mmol/L (98-107); EST Glomerular Filtration Rate 43 mL/min (>60); Est Glom Filt Rate - Afr Amer 52 mL/min (>60); Globulin 4.3 g/dL (2.2-4.2); Glucose 288 mg/dL (74-106); LDH 299 U/L (87-241); Protein, Total 7.8 g/dL (6.4-8.2); Sodium Level 132 mmol/L (136-145)
[2022-09-19 12:40] LABS: International Normalized Ratio 1.1; Prothrombin Time (Protime)PT. 13.7 SECONDS (11.7-14.9)
== END | disposition home or self-care (01) ==
LOC: PAVLAB 11:36
PROVIDERS: Internal Medicine Gastroenterology; Referring Provider Nurse Practitioner Acute Care; Visit Provider Nurse Practitioner Acute Care
DX: R05.9 Cough, unspecified (principal); K74.60 Unspecified cirrhosis of liver
CPT/HCPCS: 36415; 80053; 82140; 83615; 85025; 85610; 85652; 86140; 87070; 87205

== ENCOUNTER → 2022-09-29 | Outpatient (CLI) | payer MEDICAID, SELFPAY ==
[2022-09-29 13:42] LABS: Hemoglobin 15.4 g/dL (13.0-16.5); Mean Corp Hgb Conc 35.8 g/dL (32-36); Mean Corpuscular Hgb 32.7 pg (27.0-32.0); Mean Corpuscular Volume 91.3 fL (80-94); Mean Platelet Vol. 8.8 fl (6.2-12.0); Platelet Count 122 K/mm3 (150-450); RBC Distribution Width CV 15.1 % (11.6-14.6); RBC Distribution Width SD 49.6 fl (35.1-43.9); Red Blood Count 4.71 M/mm3 (4.6-6.2); White Blood Count 3.9 K/mm3 (4.4-11.0)
[2022-09-29 13:53] LABS: Protein, Urine (Random) 57.3 mg/dL (<11.9); Protein:Creat Ratio 1317 mg/g CRE (0-200)
[2022-09-29 14:07] LABS: PTHIN 50.1 pg/mL (18.4-80.1)
[2022-09-29 14:11] LABS: ALB/GLOB Ratio 0.8 RATIO (0.9-2.4); AST(SGOT) 68 U/L (15-37); Alanine Aminotransfer ALT/SGPT 57 U/L (16-61); Albumin, Serum 3.6 g/dL (3.2-5.0); Alkaline Phosphatase 274 U/L (45-117); Anion Gap 8 (5-15); BUN 29 mg/dL (7-18); BUN/Creat Ratio 17.5 RATIO (10-20); Chloride 101 mmol/L (98-107); Cholesterol 156 mg/dL (200); Creatinine, Serum 1.66 mg/dL (0.70-1.30); EST Glomerular Filtration Rate 47 mL/min (>60); Est Glom Filt Rate - Afr Amer 57 mL/min (>60); Globulin 4.5 g/dL (2.2-4.2); Glucose 316 mg/dL (74-106); High Density Lipoprotein 37 mg/dL; Protein, Total 8.1 g/dL (6.4-8.2); Sodium Level 130 mmol/L (136-145); Triglycerides 206 mg/dL; Very Low Density Lipoprotein 41 mg/dL (5-40); Vitamin D,25 Hydroxy 31.8 ng/mL
[2022-10-03 15:13] LABS: Alkaline Phosphatase, Serum 262 IU/L (44-121); Bone Fraction 18 % (12-68); Intestinal Fraction 28 % (0-18); Liver Fraction 53 % (13-88)
== END | disposition home or self-care (01) ==
DX: N18.32 Chronic kidney disease, stage 3b (principal); I12.9 Hypertensive chronic kidney disease with stage 1 through stage 4 chronic kidney disease, or unspecified chronic kidney disease; E55.9 Vitamin D deficiency, unspecified
CPT/HCPCS: 36415; 80053; 80061; 82306; 82570; 83970; 84075; 84080; 84100; 84156; 85027

== ENCOUNTER 2022-11-21 07:00 | Day surgery (SDC) | payer MEDICAID, SELFPAY ==
--- NOTE | 2022-11-21 | ESO_PTH ---
PATIENT: CHRISTA SILVERMAN LOC: EN U#:[id number] AGE/SX: 47/M ROOM: RE11/21/[address]: Dr. Filipe Wall DO : 1975 BED: DIS: 11/21/2022 SPEC #: [id number] RECD: 11/21/22 12:29 STATUS: CHIVO SULY #: [id number] ARYAN: 11/21/22 00:[address]: Filipe Wall DEPT: SURGICAL PATHOLOGY RECD BY: Dion Chan ENTERED: 11/21/22 12:29 SP TYPE: EFREN OCONNOR DR: Linnette [facility] Tissues: Esophagus, NOS Procedures: Special Stain Group II Surgery Specimen Level IV Alcian Blue/PAS (control) HEADER OPERATION[place] [place] PRE-OP DIAGNOSIS: Cirrhosis, primary biliary cholangitis, PINEDA, thrombocytopenia TISSUE SUBMITTED: Distal esophagus biopsy MICROSCOPIC DIAGNOSIS Distal esophagus, biopsy: A fragment of gastric mucosa with moderate acute and chronic inflammation. Intestinal metaplasia (goblet cell metaplasia) not identified. See comment. MAGALY:jared 11/22/2022 COMMENT Alcian blue/PAS stain with matched control is used in the evaluation of the specimen. MICROSCOPIC DESCRIPTION Slides are reviewed. GROSS DESCRIPTION Received in fixative is one container labeled with the patient's name and designated distal esophagus biopsy. The specimen consists of one irregular fragment of light sweeney soft tissue that measures 0.3 x 0.3 x 0.1 cm. The specimen is totally submitted in one cassette. / MAGALY:jared 11/21/2022 TC:2 CPT: 04539, 10455
[2022-11-21 07:21] VITALS: BP 129/77; PULSE 85; RESP 16; O2SAT 98; BMI 65.9
[2022-11-21] MEDS: Lactated Ringers 1,000 ML 15 ML IV (07:41)
--- NOTE | 2022-11-21 07:59 | HP.PCM_ITS ---
History and Physical Date of Admission: 11/21/22 7 M who presents to the office today for PMH sleep apnea BIPAP; DMII; HTN; hyperlipidemia; CLARENCE; cholelithiasis; perianal/perirectal abscess s/p surgery .06.29; respiratory failure. 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 US 12.19.18 finding liver measurement 19.4cm with diffusely increased echogenicity of the liver; cholecystectomy; splenomegaly. *[facility] established clinic 09.09.21 with referral from PCP for evaluation of elevated liver enzymes. AST 43, alk phos 187, ALT WNL; platelet 127 (thrombocytopenia noted since ). Liver disease, biochemical workup and imaging. Biochemical workup HIV, CMP, ferritin, coagulation, CBC, AMA, ROSIBEL comp, hepatitis, SEB, AFP, ANCA, ASM ab, ceruloplasmin, ammonia without pertinent abnormalities. ESR H25, CRP H10, haptoglobin L<10, A1c H8.4, LDH H260, Copper H166 CT abd/pel 7.02.01 noting hepatomegaly with steatosis; s/p cholecystectomy; moderate splenomegaly. US RUQ and elastography 10.05.21 liver measures 13.9cm with fatty infiltration. Liver stiffness measures 11.2kPa F3. OV 12.8.22 liver disease, biochemical workup and liver biopsy. Biochemical workup CMP (Na L131), coagulation, CBC (plt L133) without pertinent abnormality. Copper H137, CRP H12.5, ESR H28, LDH H274, haptoglobin L<10 Liver Biopsy .07.03 non necrotizing granulomatous inflammation; mild limiting necrosis with focal lobular necrosis Grade II; cirrhosis with normal hepatic architecture. No microorganisms noted. IGG subclasses. Start budesonide; if IgG4+also utilize Imuran. ? 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 [facility] attempted to contact Sky who declined to schedule at that time and would call them back. OV 3.2.23 Continues to have nausea and generalized abdominal pain which is relieved with pepto-bismol on most occasions. Mounjaro continues and has been increased with time, has been stable dose in the last 4-6 weeks. No confusion, sleep disturbance, balance issues/falling. ? EGD 07.19.22 irregular Zline 40cm; large amount of food residue; portal HTN gastropathy; retained food in duodenum. ? Gastric emptying study; repeat in 4 months. ? Gastric emptying study 08.16.22 49.13 minutes (12-56). OV 08.29.22 he is having some intermittent morning nausea; denies identifiable trigger but feels it might be r/t foods. If he eats when he is nauseous he will feel worse. BM occur daily and does not improve symptoms. Continues with Monjouro 7.5mg, will possibly increase; morning BS continue to be elevated, evening Humalog 50/50 was increased. Weights .. 435lbs 02.17.22 446lbs 05.12.22 446lbs 08.29.22 448lbs MELD? 06.30.22 -? 12.14. 20? ROS Const Constitutional: No anorexia, fatigue, fever(s), weight change or sleep problems Eyes Eyes: No change in vision ENT ENT: No abnormal hearing, difficulty swallowing, mouth lesions, tongue swelling or throat swelling Resp Respiratory: No cough or shortness of breath Cardio Cardiology: No chest pain at rest, chest pain with exertion, shortness of breath or dyspnea on exertion Gastro GI: No difficulty swallowing Genitourinary Male: No difficulty urinating or burning urination Musc Musculoskeletal: No joint pain, joint swelling, muscle weakness or decreased muscle mass Skin Skin: No hair loss in leg, yellowing of the eye, itchy eyes, rash, skin ulcer or skin swelling Neuro Neurology: No abnormal hearing, abnormal movements, confusion, unsteady gait/bal ance or memory loss Psych Psychiatric: No anxiety, No confusion and No memory loss Endo Endocrine: No fatigue or weight change Aller/Imm Allergy/Immunologic: No itchy eyes, throat swelling or tongue swelling Christian/Lymp Hematologic/Lymphatic: No easy bleeding, easy bruising or enlarged lymph nodes Exam Const General: cooperative, comfortable, no acute distress and ill appearing chronically Nutritional Appearance: obese Orientation: alert, awake and oriented x3 HENMT Ears: hearing grossly normal bilaterally Eyes General: appearance normal, both eyes and all related structures Alignment and Position: alignment normal Sclera: sclerae normal Neck Neck: normal visual inspection and full ROM Carotids: normal carotid upstroke Chest Chest palpation & inspection: normal inspection of the chest Resp Effort & Inspection: normal respiratory effort, able to speak in complete sentences, symmetric chest movement, normal respiratory pattern, no audible wheezes and no cough Auscultation: Bilateral: Clear to Auscultation Cardio Rate: regular rate Rhythm: regular rhythm Heart Sounds: S1 normal and S2 normal Bruits: no carotid bruits GI Inspection: normal to inspection and obesity Musc Cervical Spine: normal cervical lordosis Thoracic/Lumbar Spine: thoracic and lumbar spine normal to inspection Skin General: no rashes or lesions noted Lesions: no lesions Rashes: no rashes Trauma: no lacerations or abrasions Wounds: no wounds Neuro General: patient alert, patient awake and patient oriented x3 Cognition: normal cognition Speech: speech normal Gait: normal gait Extrem General: normal to inspection, full ROM and no pedal edema Psych Appearance: grossly normal Mental Status: mental status grossly normal Mood: congruent mood Affect: normal affect Speech and Movement: speech and movement normal Attitude: cooperative Thought Process: normal Thought Content: normal Judgment: judgment good Quality Reporting Tobacco Screening ([facility] 138) Smoking Status: Former smoker Assessment and Plan Assessment and Plan (1) Cirrhosis: Status: Chronic Plan: Cirrhosis (meld of 20 and a child Morgan class a) secondary to primary biliary cholangitis plus PINEDA. He is not showing any signs of decompensation at this time. His disease is complicated by splenomegaly, thrombocytopenia. He denies any itching, jaundice, sleeping difficulties, weight gain. He will be started on ursodiol 300 mg p.o. twice daily. He will undergo screening for varices. He already takes metoprolol 50 mg twice daily so he will not need nadolol for varices. He is doing daily weights. I had talked about putting him on Lasix and/or Aldactone. 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 His current creatinine is ranging around 1.9-2.1. He had an alpha- fetoprotein that was 2.2 and his last ammonia was 25. He is not on lactulose at this time. He is having 2-3 bowel movements a day. We will recheck his ammonia level. We also will have more recommendations after he undergoes an upper endoscopy. We offered him a referral to [facility] hepatology program. However he says that is too far and he may consider being evaluated in the future for liver transplant. (2) Primary biliary cholangitis: Status: Chronic Plan: The biopsies of his liver did show noncaseating granulomas that I suspect is from probability cirrhosis because his acid-fast stain was negative. He has no history of sarcoidosis, amyloidosis or hemochromatosis. Also his antimitochondrial antibody was negative which goes against primary biliary cholangitis. I will keep him on ursodiol 300 mg p.o. twice daily. He should be on 13 mg/kg body weight for his dosing of ursodiol. However his antimitochondrial antibody is negative and I would like him to be seen at a transplant center prior to increasing his medicine. (3) PINEDA (nonalcoholic steatohepatitis): Status: Acute Plan: We discussed glucose control and weight loss as the primary goals to decrease his risk of worsening liver disease secondary to obesity and diabetes. (4) Thrombocytopenia: Status: Acute Plan: Monitor platelet count. I have examined the patient and the H&P has been reviewed. There are no clinical changes since date of exam.
[2022-11-21 08:02] LABS: Bedside Glucose 313 mg/dL (74-106)
[2022-11-21 08:45] VITALS: BP 114/59; BP 129/77; PULSE 92; RESP 20; TEMP 37; O2SAT 94
--- NOTE | 2022-11-21 08:46 | OP.CCLET_ITS ---
11/21/2022 Linnette Pierre [facility] Re : Upper GI endoscopy procedure for [facility] This procedure was performed on Monday, November 21, 2022. My impressions and recommendations are as follows: Impressions : - Z-line irregular, 40 cm from the incisors. Biopsied. - A large amount of food (residue) in the stomach. - Retained food in the duodenum. Recommendations : - Discharge patient to home. - Resume previous diet. - Continue present medications. - Await pathology results. - Repeat upper endoscopy because the preparation was poor. - Gastric Emptying Study for Delayed gastric emptying study My findings are described in the full procedure note, which is enclosed. If I can be of further assistance, please feel free to contact me at . Sincerely, Filipe Friend, 11/21/2022 8:46:05 AM This report has been signed electronically.
--- NOTE | 2022-11-21 08:46 | OP.EGD_ITS ---
Patient Name: Sky Alcantar Procedure Date: 11/21/2022 8:29 AM Date of : 1975 Age: 47 Procedure: Upper GI endoscopy Indications: Cirrhosis with suspected esophageal varices Providers: Filipe Wall DO Referring MD: Filipe Wall DO Medicines: Monitored Anesthesia Care Patient Profile: This is a 47 year old male. Refer to note in patient chart for documentation of history and physical. Patient has symptoms of chronic abdominal distention and chronic epigastric abdominal pain. Complications: No immediate complications. Procedure: Pre-Anesthesia Assessment: - Prior to the procedure, a History and Physical was performed, and patient medications and allergies were reviewed. The patient is competent. The risks and benefits of the procedure and the sedation options and risks were discussed with the patient. All questions were answered and informed consent was obtained. Patient identification and proposed procedure were verified by the physician. Mental Status Examination: normal. Prophylactic Antibiotics: The patient does not require prophylactic antibiotics. Prior Anticoagulants: The patient has taken no anticoagulant or antiplatelet agents. After reviewing the risks and benefits, the patient was deemed in satisfactory condition to undergo the procedure. The anesthesia plan was to use minimal sedation / analgesia (anxiolysis). Immediately prior to administration of medications, the patient was re-assessed for adequacy to receive sedatives. The heart rate, respiratory rate, oxygen saturations, blood pressure, adequacy of pulmonary ventilation, and response to care were monitored throughout the procedure. The physical status of the patient was re-assessed after the procedure. After obtaining informed consent, the endoscope was passed under direct vision. Throughout the procedure, the patient's blood pressure, pulse, and oxygen saturations were monitored continuously. The gastroscope was introduced through the mouth, and advanced to the second part of duodenum. The upper GI endoscopy was accomplished without difficulty. The patient tolerated the procedure well. Scope In: 8:37:07 AM Scope Out: 8:38:17 AM Total Procedure Duration Time 0 hours 1 minute 10 seconds Findings: The Z-line was irregular and was found 40 cm from the incisors. Biopsies were taken with a cold forceps for histology. Verification of patient identification for the specimen was done. Estimated blood loss was minimal. A large amount of food (residue) was found in the gastric body. Food (residue) was found in the first portion of the duodenum. Impression: - Z-line irregular, 40 cm from the incisors. Biopsied. - A large amount of food (residue) in the stomach. - Retained food in the duodenum. Recommendation: - Discharge patient to home. - Resume previous diet. - Continue present medications. - Await pathology results. - Repeat upper endoscopy because the preparation was poor. - Gastric Emptying Study for Delayed gastric emptying study Procedure Code(s): --- Professional --- 01702, Esophagogastroduodenoscopy, flexible, transoral; with biopsy, single or multiple CPT copyright 2021 [employer]. All rights reserved. The codes documented in this report are preliminary and upon clean in places operator review may be revised to meet current compliance requirements. Filipe Wall DO 11/21/2022 8:46:05 AM This report has been signed electronically. Number of Addenda: 0 Note Initiated On: 11/21/2022 8:29 AM
[2022-11-21 08:50] VITALS: BP 110/62; BP 129/77; PULSE 85; RESP 18; O2SAT 97
[2022-11-21 08:55] VITALS: BP 115/77; BP 129/77; PULSE 84; RESP 18; O2SAT 95
[2022-11-21 09:00] VITALS: BP 113/73; BP 129/77; PULSE 85; RESP 20; TEMP 36.5; O2SAT 95
[2022-11-21 09:15] VITALS: BP 129/77
== END 2022-11-21 09:23 | disposition home or self-care (01) ==
LOC: EN 07:01 → AC 07:02
PROVIDERS: Visit Provider Internal Medicine Gastroenterology
PROC: 0DJ08ZZ Inspection of Upper Intestinal Tract, Via Natural or Artificial Opening Endoscopic (ICD-10-PCS; CPT 43235; principal; 2022-11-21 07:55)
DX: K31.89 Other diseases of stomach and duodenum (principal); K74.60 Unspecified cirrhosis of liver; E11.22 Type 2 diabetes mellitus with diabetic chronic kidney disease; Z68.44 Body mass index [BMI] 60.0-69.9, adult; D69.6 Thrombocytopenia, unspecified; Z79.4 Long term (current) use of insulin; N18.30 Chronic kidney disease, stage 3 unspecified; G47.33 Obstructive sleep apnea (adult) (pediatric); I12.9 Hypertensive chronic kidney disease with stage 1 through stage 4 chronic kidney disease, or unspecified chronic kidney disease; E78.5 Hyperlipidemia, unspecified; E55.9 Vitamin D deficiency, unspecified; E66.9 Obesity, unspecified; Z87.891 Personal history of nicotine dependence; Z79.82 Long term (current) use of aspirin; Z79.899 Other long term (current) drug therapy; Z86.16 Personal history of COVID-19
CPT/HCPCS: 43239; 82962; 88305; 88313; J7120; J2405

== ENCOUNTER 2022-11-27 13:50 | Emergency (ER) | payer MEDICAID, SELFPAY ==
[2022-11-27 13:51] VITALS: BP 173/95; PULSE 86; RESP 18; TEMP 36.2; O2SAT 96
--- NOTE | 2022-11-27 14:15 | ED.VIS.LOWEX ---
HPI History of Present Illness Chief Complaint: Wound Narrative Narrative: 47-year-old male past medical history of peripheral artery disease, type 2 diabetes, hypertension, liver cirrhosis presents for wound check of a laceration that he sustained approximately 10 days ago while he was at work. He states he was carrying cris of cardboard and walking to a metal door when the metal door hit the back of his left lower extremity. He believes his tetanus is up-to-date. He presents because of redness to the area and small pustules surrounding the wound that have broken open, and purulent material came out. He denies any foreign body sensation. No fevers or chills, no nausea or vomiting. He states he does not want to claim Workmen's Compensation for this wound, and presents for wound check. [facility] Medical History BiPAP (biphasic positive airway pressure) dependence COVID-19 Diabetes Elevated liver enzymes Fatty liver Former smoker History of edema History of renal disease History of steroid therapy Hyperlipidemia Hypertension Pneumonia Sleep apnea Thyroid disease Vitamin D deficiency Home Medications aspirin 81 mg chewable tablet 81 mg PO DAILY@0800 heart health 08/11/16 [History Last Taken 04/15/18] magnesium oxide 250 mg PO TIDCM supplement 04/16/18 [History Last Taken 04/15/18] blood sugar diagnostic (Blood Glucose Test strips) #100 ea 11/28/19 [Rx Last Taken Unknown] lancets 28 gauge (Easy Touch Lancets) #100 ea 02/27/20 [Rx Last Taken Unknown] OneTouch Verio Flex meter (blood-glucose meter) #1 ea 06/29/20 [Rx Last Taken Unknown] metoprolol tartrate 50 mg tablet 50 mg PO BID blood pressure #180 tabs 10/01/20 [Rx Last Taken Unknown] atorvastatin 20 mg tablet 20 mg PO QHS cholestoral 12/21/20 [History Last Taken Unknown] cholecalciferol (vitamin D3) 1,250 mcg (50,000 unit) capsule 50,000 unit PO QWEEK supplement 02/07/21 [History Last Taken 02/04/21] BD Insulin Syringe 1 mL 25 gauge x 5/8 (insulin syringe-needle U-100) #100 ea 05/24/21 [Rx Last Taken Unknown] lancets 33 gauge (OneTouch Delica Plus Lancet) #100 ea 08/11/21 [Rx Last Taken Unknown] ursodiol 300 mg capsule 300 mg PO BID #60 caps 05/12/22 [Rx Last Taken Unknown] pen needle, diabetic 32 gauge x 5/32 (BD Ultra-Fine Shani Pen Needle) #100 ea 06/01/22 [Rx Last Taken Unknown] insulin syringe-needle U-100 0.5 mL 31 gauge x 5/16 (BD Insulin Syringe Ultra-Fine) #100 ea 06/02/22 [Rx Last Taken Unknown] levothyroxine 175 mcg tablet 175 mcg PO DAILY #30 tabs 06/07/22 [Rx Last Taken Unknown] OneTouch Verio test strips (blood sugar diagnostic) #100 ea 08/25/22 [Rx Last Taken Unknown] tirzepatide 12.5 mg/0.5 mL subcutaneous pen injector (Mounjaro) 12.5 mg (0.5 mL) subcut QWEEK #2 mL 09/16/22 [Rx Last Taken Unknown] amlodipine 5 mg tablet 5 mg PO DAILY 09/19/22 [History Last Taken Unknown] insulin lispro protamine-lispro 100 unit/mL (50-50) subcutaneous susp (Humalog Mix 50-50 Insuln U-100) See Rx Instructions subcut BID DM #53 mL 09/22/22 [Rx Last Taken Unknown] amoxicillin 875 mg-potassium clavulanate 125 mg tablet 1 tab PO BID #20 tabs 11/27/22 [Rx Last Taken Unknown] Allergy/AdvReac Type Severity Reaction Status Date / Time wool AdvReac Severe Hives Verified 09/19/22 10:46 Family History Grandfather Family history of heart disease Family history of hypertension Mother Family history of high cholesterol COPD (chronic obstructive pulmonary disease) Grandfather Family history of high cholesterol Sleep apnea Aunt Family history of hypertension Other Family history of hypertension in mother Surgical History History of esophagogastroduodenoscopy (EGD) history of gallbladder sugery History of surgery History of tonsillectomy and adenoidectomy Social History Smoking Status: Former smoker alcohol intake: never ROS ROS ED ROS Narrative Constitutional: No fever, no chills. HEENT: No sore throat. No neck pain. No loss of vision. No rhinorrhea. Cardiovascular: No chest pain. No palpitations. No pedal edema. Respiratory: No cough, no shortness of breath. Abdominal: No abdominal pain. No nausea. No vomiting. Genitourinary: No dysuria. No hematuria. Musculoskeletal: No myalgias. No arthralgias. Neurologic: No headaches. No dizziness. No lightheadedness. Skin: No rash. Healing laceration to left lower leg distally, with surrounding erythema and pustules. Psychiatric: No depression. No anxiety. EXAM Physical Exam Narrative Exam Narrative: Afebrile. Vital signs noted. Nontoxic-appearing. HEENT: Normocephalic. Atraumatic. PERRL, EOMI. Neck soft and supple. No point tenderness or step off. Cardiovascular: Regular rate and rhythm. No murmurs, rubs, or gallops appreciated. Respiratory: No tachypnea. Lungs clear to auscultation bilaterally. Gastrointestinal: Abdomen soft, obese nontender, with normoactive bowel sounds. No rebound or guarding. Neurological: Awake. Alert. Nonfocal, nonlateralizing. Skin: No rash. Approximately 2 cm laceration, healing, left posterior lower leg with surrounding erythema. There are broken pustules surrounding consistent with folliculitis, but no fluctuance. He appears neurovascular intact distally. Musculoskeletal: No pedal edema. Full range of motion extremities. Const Vital Signs: 11/27/22 13:51 Temperature 97.1 F L Temperature Source Temporal Pulse Rate 86 Respiratory Rate 18 Blood Pressure 173/95 H Blood Pressure Mean 121 Pulse Ox 96 Oxygen Delivery Method Room Air MDM MDM MDM Narrative Medical decision making narrative: I reviewed the patient's prior records. Given that he is diabetic, and has poor circulation of his lower extremities with a diagnosis of obesity, I do feel antibiotics are indicated for more of a folliculitis. I do not feel that he requires incision and drainage of an abscess because there is clinically not 1 present. I discussed with him incision and drainage, but I do not think that there would be any return of pus or purulent drainage as the area is more indurated. He was given his first dose of Augmentin here in the emergency department and a prescription written for the next 10 days. He will follow-up with the [facility] clinic in 3 to 5 days if no improvement. Return instructions to the emergency department were reviewed. I do not feel he requires any imaging or laboratory work at this time. Disposition is discharged home in stable condition. Discharge Plan Triage Chief Complaint: Wound ED Provider: Rad Morel Dx/Rx/DC Orders Clinical Impression: Encounter for post-traumatic wound check, Folliculitis Instructions: ED Folliculitis, ED Wound Check (Infection) Prescriptions: New amoxicillin-pot clavulanate 875-125 mg tablet 1 tab PO BID Qty: 20 0RF No Action (DME) lancets [Easy Touch Lancets] 28 gauge misc See Rx Instructions .ROUTE .MEDSUPPLY Qty: 100 6RF Rx Instructions: 3 times daily atorvastatin 20 mg tablet 20 mg PO QHS Patient Comments: TAKE 1 TABLET BY MOUTH AT BEDTIME (DME) BD Insulin Syringe 1 mL 25 gauge x 5/8 syringe See Rx Instructions .ROUTE .MEDSUPPLY Qty: 100 6RF Rx Instructions: bid amlodipine 5 mg tablet 5 mg PO DAILY ursodiol 300 mg capsule 300 mg PO BID Qty: 60 9RF Humalog Mix 50-50 Insuln U-100 100 unit/mL (50-50) suspension See Rx Instructions SC BID Qty: 53 6RF Rx Instructions: 60 units in am and 130 units at supper, subcutaneously twice a day; aspirin 81 MG tablet,chewable 81 mg PO DAILY@0800 magnesium oxide 250 MG tablet 250 mg PO TIDCM cholecalciferol (vitamin D3) 1,250 mcg (50,000 unit) capsule 50,000 unit PO QWEEK Rx Instructions: Every (DME) Blood Glucose Test Strip See Rx Instructions .ROUTE .MEDSUPPLY Qty: 100 6RF Rx Instructions: test 3 times daily (DME) blood-glucose meter [OneTouch Verio Flex meter] Misc See Rx Instructions .ROUTE .MEDSUPPLY Qty: 1 0RF Rx Instructions: As directed metoprolol tartrate 50 mg tablet 50 mg PO BID Qty: 180 1RF (DME) lancets [OneTouch Delica Plus Lancet] 33 gauge misc See Rx Instructions .ROUTE .MEDSUPPLY Qty: 100 8RF Rx Instructions: tid (DME) pen needle, diabetic [BD Ultra-Fine Shani Pen Needle] 32 gauge x 5/32 needle See Rx Instructions .Route Qty: 100 5RF Rx Instructions: BID (DME) insulin syringe-needle U-100 [BD Insulin Syringe Ultra-Fine] 0.5 mL 31 gauge x 5/16 syringe See Rx Instructions .ROUTE .MEDSUPPLY Qty: 100 6RF Rx Instructions: twice daily levothyroxine 175 mcg tablet 175 mcg PO DAILY Qty: 30 5RF (DME) OneTouch Verio test strips Strip See Rx Instructions .ROUTE .MEDSUPPLY Qty: 100 8RF Rx Instructions: tid Mounjaro 12.5 mg/0.5 mL pen injector 12.5 mg subcut QWEEK Qty: 2 4RF Primary Care Provider: Linnette Matta Referrals: [facility] Linnette Arshad [Primary Care Provider] - 3-5 Days if not improving Disposition Disposition: Home, Self Care
[2022-11-27] MEDS: Amox/Clavulanate 875 MG Tablet PO (14:19)
== END 2022-11-27 14:25 | disposition home or self-care (01) ==
PROVIDERS: Emergency Provider Emergency Medicine; Visit Provider Emergency Medicine
DX: L73.9 Follicular disorder, unspecified (principal); E11.51 Type 2 diabetes mellitus with diabetic peripheral angiopathy without gangrene; I73.9 Peripheral vascular disease, unspecified; E78.5 Hyperlipidemia, unspecified; I10 Essential (primary) hypertension; Z51.89 Encounter for other specified aftercare; Z87.891 Personal history of nicotine dependence; E66.9 Obesity, unspecified
CPT/HCPCS: 99283

== ENCOUNTER → 2022-12-12 | Outpatient (CLI) | payer MEDICAID, SELFPAY ==
[2022-12-12 11:35] LABS: Erythrocyte Sedimentation Rate 24 mm/hr (0-20)
[2022-12-12 11:55] LABS: PTHIN 37.6 pg/mL (18.4-80.1)
[2022-12-12 12:03] LABS: CRP 8.98 mg/L (0.0-3.0)
[2022-12-15 12:09] LABS: Vitamin D 1,25-Dihydroxy 25.8 pg/mL (24.8-81.5)
[2022-12-16 16:10] LABS: Histoplasma Abs Negative (Neg:<1:1); QNTFERON TB Mitogen Value > 10.00 IU/mL (.); QNTFERON TB Nil Value 0.05 IU/mL (.); QNTFERON TB1+ Ag Value 0.05 IU/mL (.); QNTFERON TB2+ Ag Value 0.06 IU/mL (.); QNTIFERON TB Positive Criteria Negative (Negative)
== END | disposition home or self-care (01) ==
PROVIDERS: Referring Provider Internal Medicine Gastroenterology; Visit Provider Internal Medicine Gastroenterology
DX: R74.8 Abnormal levels of other serum enzymes (principal); K74.3 Primary biliary cirrhosis; D69.6 Thrombocytopenia, unspecified
CPT/HCPCS: 36415; 82652; 83970; 85652; 86140; 86480; 86698

== ENCOUNTER → 2023-01-26 | Outpatient (CLI) | payer MEDICAID, SELFPAY ==
[2023-01-26 13:08] LABS: T4 Free Direct 1.31 ng/dL (0.76-1.46); Thyroid Stim Hormone (TSH) 1.94 uIU/mL (0.358-3.74)
== END | disposition home or self-care (01) ==
LOC: LAB 11:25
PROVIDERS: Visit Provider Nurse Practitioner Family
DX: E03.9 Hypothyroidism, unspecified (principal)
CPT/HCPCS: 36415; 84439; 84443

== ENCOUNTER → 2023-04-03 | Outpatient (CLI) | payer MEDICAID, SELFPAY ==
[2023-04-03 12:21] LABS: Hematocrit 38.8 % (40-54); Hemoglobin 13.5 g/dL (13.0-16.5); Mean Corp Hgb Conc 34.8 g/dL (32-36); Mean Corpuscular Hgb 31.5 pg (27.0-32.0); Mean Corpuscular Volume 90.7 fL (80-94); Mean Platelet Vol. 9.1 fl (6.2-12.0); Platelet Count 116 K/mm3 (150-450); RBC Distribution Width SD 49.7 fl (35.1-43.9); Red Blood Count 4.28 M/mm3 (4.6-6.2); White Blood Count 4.5 K/mm3 (4.4-11.0)
[2023-04-03 12:51] LABS: Protein, Urine (Random) 81.1 mg/dL (<11.9); Protein:Creat Ratio 592 mg/g CRE (0-200)
[2023-04-03 13:09] LABS: ALB/GLOB Ratio 0.8 RATIO (0.9-2.4); AST(SGOT) 65 U/L (15-37); Alanine Aminotransfer ALT/SGPT 44 U/L (16-61); Albumin, Serum 3.3 g/dL (3.2-5.0); Alkaline Phosphatase 222 U/L (45-117); Anion Gap 8 (5-15); BUN 25 mg/dL (7-18); BUN/Creat Ratio 15.2 RATIO (10-20); Calcium,Total 8.9 mg/dL (8.5-10.1); Chloride 104 mmol/L (98-107); Cholesterol 130 mg/dL (200); Creatinine, Serum 1.64 mg/dL (0.70-1.30); EST Glomerular Filtration Rate 48 mL/min (>60); Est Glom Filt Rate - Afr Amer 58 mL/min (>60); Globulin 4.1 g/dL (2.2-4.2); Glucose 259 mg/dL (74-106); High Density Lipoprotein 32 mg/dL; Potassium 4.2 mmol/L (3.5-5.1); Protein, Total 7.4 g/dL (6.4-8.2); Sodium Level 133 mmol/L (136-145); Triglycerides 202 mg/dL; Very Low Density Lipoprotein 40 mg/dL (5-40)
== END | disposition home or self-care (01) ==
PROVIDERS: Referring Provider Nurse Practitioner Adult Health; Visit Provider Nurse Practitioner Adult Health
DX: I12.9 Hypertensive chronic kidney disease with stage 1 through stage 4 chronic kidney disease, or unspecified chronic kidney disease (principal); N18.32 Chronic kidney disease, stage 3b; E78.5 Hyperlipidemia, unspecified
CPT/HCPCS: 36415; 80053; 80061; 82570; 84156; 85027

== ENCOUNTER → 2023-04-10 | Outpatient (CLI) | payer MEDICAID, SELFPAY ==
[2023-04-12 12:09] LABS: AFP, Tumor Marker 2.1 ng/mL (0.0-6.9)
== END | disposition home or self-care (01) ==
LOC: LAB 13:49
PROVIDERS: Referring Provider Internal Medicine Gastroenterology; Visit Provider Internal Medicine Gastroenterology
DX: K74.3 Primary biliary cirrhosis (principal); D69.6 Thrombocytopenia, unspecified; K75.81 Nonalcoholic steatohepatitis (NASH); R74.8 Abnormal levels of other serum enzymes
CPT/HCPCS: 36415; 82105

== ENCOUNTER → 2023-05-15 | Outpatient (CLI) | payer MEDICAID, SELFPAY ==
--- OUTSIDE RECORDS SUMMARY | 2023-05-15 12:48 | XMS RPT_ITS | CCD ---
Author Name Unknown Address [address] [place] [id number] Organization [facility] Care Team Providers Care Learning Design Specialist Name Role Phone RUSTY WARREN Unavailable Unavailable CORRECT INFO, NEEDED Unavailable Unavailable UNKNOWN, PCP Unavailable Unavailable Alessio Tabares Unavailable Unavailable ARIANE RUSTY Unavailable Unavailable CLEMENTINA AVILA Unavailable Unavailable KOSOVICH, LYUBOV Unavailable Unavailable UNKNOWN, PCP Unavailable Unavailable KOSOVICH, LYUBOV Unavailable Unavailable UNKNOWN, PCP Unavailable Unavailable VERONA SANDHU Unavailable Unavailable UNKNOWN, PCP Unavailable Unavailable GAGARIN, ALANA Unavailable Unavailable MCCONNELL SKYLAR K. Unavailable Unavailable SWIHART, JACOB L Unavailable Unavailable SWIHART, JACOB L Unavailable Unavailable KAMEL, SAMEH S. Unavailable Unavailable KAMEL, SAMEH S. Unavailable Unavailable SWIHART, JACOB L Unavailable Unavailable Linnette Pierre (Historical) Primary Care Provi tala Unavailable Primary Care Provider Unavailabl MISSY Chang Referring Unavailable MAURISIO GATICA Attending Unavailable MAURISIO GATICA Attending Unavailable MAURISIO GATICA Referring Unavailable MISSY GUZAMN Referring Unavailable MAURISIO GATICA Attending Unavailable Medications Current Medications Medication Drug Class(es) Dates Sig (Normalized) Sig (Original) amLODIPine 5 mg oral tablet (1 source) Dihydropyridine Calcium Channel Helen Start: 08-25-2022 amLODIPine 5 MG tablet aspirin 81 mg delayed release oral tablet (3 sources) Platelet Aggregation Inhibitor, Nonsteroidal Anti-inflammatory Drug take 1 tablet by mouth once daily Aspirin [address] tablet 1 tablet Orally Once a day for 30 day(s) 0 Active Completed/Discontinued Medications Medication Drug Class(es) Dates Sig (Normalized) Sig (Original) cholecalciferol 1.25 mg oral capsule (2 sources) Vitamin D Start: 07-27-2021 take 1 capsule by mouth every week cholecalciferol, Vitamin D3, (VITAMIN D3) 1,250 mcg (50,000 unit) cap capsule Take 1 capsule by mouth one time a week. 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] Onset: 08-17-2021 08-17-2021 Chronic Diabetes mellitus without complication (1 source) Type 2 diabetes mellitus without complications; Translations: [Type 2 diabetes mellitus without complications] Onset: 01-13-2018 Chronic Disorders of lipid metabolism (1 source) Hyperlipidemia, unspecified; Translations: [Hyperlipidemia, unspecified] Onset: 01-13-2018 Chronic Essential hypertension (1 source) Essential (primary) hypertension; Translations: [Essential (primary) hypertension] Onset: 01-13-2018 Chronic Hepatitis (3 sources) Hepatic granuloma; 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, not elsewhere classified] Onset: 11-03-2022 11-03-2022 Chronic Other aftercare (1 source) custodial (current) use of insulin; Translations: [custodial (current) use of insulin] Onset: 01-13-2018 Episodic Other aftercare (1 source) custodial (current) use of aspirin; Translations: [buttermaker helper (current) use of aspirin] Onset: 01-13-2018 Episodic Other aftercare (1 source) buttermaker helper (current) use of oral hypoglycemic drugs; Translations: [custodial (current) use of oral hypoglycemic drugs] Onset: 01-13-2018 Other diseases of kidney and ureters (1 source) Disorder of kidney and ureter, unspecified; Translations: [Disorder of kidney and ureter, unspecified] Onset: 01-13-2018 Episodic Other liver diseases (1 source) Fatty (change of) liver, not elsewhere classified; Translations: [Fatty (change of) liver, not elsewhere classified] Onset: 01-13-2018 Chronic Other liver diseases (2 sources) Steatosis of liver; Translations: [Fatty (change of) liver, not elsewhere classified] Onset: 08-17-2021 08-17-2021 Chronic Other liver diseases (2 sources) Unspecified cirrhosis of liver; Translations: [Unspecified cirrhosis of liver] Onset: 10-12-2022 Chronic Other nutritional; endocrine; and metabolic disorders (1 source) Obesity, unspecified; Translations: [Obesity, unspecified] Onset: 01-13-2018 Chronic Other nutritional; endocrine; and metabolic disorders (1 source) Body mass index (BMI) 60.0-69.9, adult; Translations: [Body mass index (BMI) 60.0-69.9, adult] Onset: 01-13-2018 Chronic Other nutritional; endocrine; and metabolic disorders (1 source) Morbid obesity; Translations: [Morbid (severe) obesity due to excess calories] Onset: 11-03-2022 11-03-2022 Chronic Other screening for suspected conditions (not mental disorders or infectious disease) (3 sources) Liver function tests abnormal; Translations: [Other specified abnormal findings of blood chemistry] Onset: 11-03-2022 11-03-2022 Episodic Residual codes; unclassified (1 source) Obstructive sleep apnea (adult) (pediatric); Translations: [Obstructive sleep apnea (adult) (pediatric)] Onset: 01-13-2018 Chronic Residual codes; unclassified (1 source) Laparoscopic surgical procedure converted to open procedure; Translations: [Laparoscopic surgical procedure converted to open procedure] Onset: 01-13-2018 Thyroid disorders (3 sources) Hypothyroidism, unspecified; Translations: [Hypothyroidism] Onset: 01-13-2018 08-17-2021 Chronic Unclassified (1 source) Gangrene of gallbladder in cholecystitis; Translations: [Gangrene of gallbladder in cholecystitis] Onset: 01-13-2018 Results Test Name Value Interpretation Reference Range Facil ity Encounters Encounter Date Encounter Type Care Provider Facility Start: 11-03-2022 ambulatory MAURISIO Flores ity:[facility] Start: 11-03-2022 ambulatory MISSY GUZMAN Facility :[facility] Start: 11-03-2022 End: 11-03-2022 Subsequent hospital visit by physician Maurisio Gatica MD Work Phone: [facility] Procedures Date Procedure Procedure Detail Performing Clinician Start: 11-03-2022 Radiologic exam ches t 2 views Maurisio Gatica MD Work Phone: Start: 01-11-2018 Inspection of Gallbl adder, Percutaneous Endoscopic Approach RUSTY ARIANE Start: 01-11-2018 Resection of Gallbla dder, Open Approach RUSTY ARIANE Start: 01-10-2018 Antibody screen GERARDOOPALSixto WARREN Plan of Treatment Date Care Activity Detail Author Start: 02-04-2029 Tetanus vaccination TETANUS [facility] Start: 11-04-2023 Thyroid stimulating hormone measurement TSH [facility] Start: 11-11-2022 Influenza vaccination INFLUENZA VACCINE (#1) [facility] Start: 10-09-2022 DIABETES SCREEN DIABETES SCREEN [facility] Start: 10-23-2021 COVID-19 VACCINE (3 - Booster for Pfizer series) COVID-19 VACCINE (3 - Booster for Pfizer series) [facility] Start: 07-18-2021 COVID-19 VACCINE (3 - Pfizer series) COVID-19 VACCINE (3 - Pfizer series) [facility] Start: 10-09-2020 SERUM CREATININE SERUM CREATININE [facility] Start: 06-13-2019 COLOGUARD (FIT-DNA) COLOGUARD (FIT-DNA) [facility] Start: 06-13-2019 Colonoscopy COLONOSCOPY [facility] Start: 06-13-2019 COLORECTAL CANCER SCREENING COLORECTAL CANCER SCREENING [facility] Start: 06-13-[address] COLONOGRAPHY [facility] Start: 06-13-2019 FECAL OCCULT BLOOD FECAL OCCULT BLOOD [facility] Start: 06-13-2019 Screening for malignant neoplasm of colon COLORECTAL CANCER SCREENING DISCUSSION [facility] Start: 06-13-2019 SIGMOIDOSCOPY SIGMOIDOSCOPY [facility] Start: 2014 Lipid panel LIPID SCREENING [facility] Start: 2009 LIPID SCREEN LIPID SCREEN [facility] Start: 1993 Urine microalbumin profile DTAP,TDAP,TD (1 - Tdap) [facility] Start: 1992 ANNUAL PCP TEAM CHRONIC DISEASE VISIT ANNUAL PCP TEAM CHRONIC DISEASE VISIT [facility] Start: 1989 HIV screening HIV SCREENING DISCUSSION [facility] Start: 1986 Adult depression screening assessment DEPRESSION SCREENING [facility] Immunizations Immunization Date Immunization Notes Care Provider Alfredo lemus 02-10-2021 influenza virus vaccine, unspecified formulation Maurisio Gatica MD Work Phone: [facility] Payers Date Payer Category Payer Unknown [employer] [id number] 2021-Present [address] [place] [address] [id number] 2021 Unknown [id number] 2017 Unknown [id number] 2015 Medicaid [employer] [id number] 2015-Present [phone] [address] [place] [address] Medicaid [id number] 1974 Unknown [id number] 1974 Unknown [id number] 1974 Unknown [id number] 1974 Unknown [id number] 1974 Unknown [id number] 1974 Unknown [id number] 1974 Unknown [id number] [id number] 1974 Unknown [id number] 1974 Unknown [id number] [id number] 1974 Unknown [id number] [id number] 1974 Unknown [id number] [id number] 1974 Unknown [id number] Social History Date Type Detail Facility Tobacco smoking stat [facility] Tobacco smoking consumption unknown [facility] Work Phone: Start: 1975 Sex Assigned At Not on file [facility] Start: 08-07-2021 End: 08-17-2021 Exposure to SARS-CoV-2 (event) Not sure [facility] Work Phone: Start: 11-03-2022 Tobacco smoking stat [facility] Ex-smoker [facility] History of tobacco use Current smoker [facility] History of tobacco use Cigarette Smoker [facility] Start: 11-03-2022 Cigarettes smoked current (pack per day) - Reported 0.5 [facility] Start: 11-03-2022 Tobacco use and exposure Smokeless tobacco non-user [facility] Start: 11-03-2022 Alcohol intake Ex-drinker (finding) [facility] Start: 11-03-2022 Tobacco use panel [facility] Note 08-18-2021 Telephone Encounter - Yana Cummins LPN - 08/18/2021 5:02 PM EDTTelephone Encounter - Roxana Munoz - 08/18/2021 4:57 PM EDT Note Date & Type Note Facility 08-18-2021 Miscellaneous Notes Faxed Yana Cummins LPN Crystal from [facility] office called regarding fax. They only received the letter and not the office notes that were to be attached. Fax number [phone] documented in this encounter [facility] Note 08-18-2021 Telephone Encounter - Leah Singh LPN - 08/18/2021 11:21 AM EDTTelephone Encounter - Beatriz Roman MD - 08/18/2021 11:12 AM EDT Note Date & Type Note Facility 08-18-2021 Miscellaneous Notes Patient notified. Leah Singh LPN Please notify patient that all his other test results were normal except for a low platelet which we discussed during his office visit. Follow-up with PCP for chronic ITP. Beatriz Roman MD documented in this encounter [facility] Evaluation note Note Date & Type Note Facility documented in this encounter [facility] Summary Purpose Family History No Family History Records FoundNo Family History Records FoundNo Family History Records FoundNo Family History Records FoundNo Family History Records Found Advance Directives No Advanced Directives Records FoundNo Advanced Directives Records FoundNo Advanced Directives Records FoundNo Advanced Directives Records FoundNo Advanced Directives Records Found Hospital Course Note Send Summary: Note Recipient s: Rusty Warren MD Discharge: Summary:Admission Date: .10-Jan-2018 11:17:00Discharge Date: [id number] Physician at Discharge: Zac Tabares Reason: RUQ painFinal Discharge Diagnoses: Acute cholecystitisProcedures: Date: 11-Jan-2018 10:35:00Procedure Name: Laparoscopy, laparotomy, open cholecystectomy Condition at Discharge: SatisfactoryDisposition at Discharge: Home Health Care - NewVital Signs: T [id number]%Date/Time01/13 6: 6: 6: 6: 6:00Range(36C - 36.1C ) (88 - 99 ) (18 - 20 ) (93 - 130 )/ (61 - 76 ) (91% -93% )Physical Exam:Gen: nadCards: rrrPulm: cta b/lAbd: soft, nondistended, appropriately tender to palpation in RUQ otherwisenontender, RUQ incision with vac in place, good seal, minimal outputGU: voidingExt: no edemaHospital Course:Patient is 42 yo M with a PMH significant for HTN, HLD, DM2, Hypothyroidism,morbid obesity, thrombocytopenia, and leukopenia was transferred from [facility] (more content not included)... Note Post Operative Note: PreOp D iagnosis: Acute on chronic cholecystitisPost- Procedure Diagnosis: Acute on chronic, gangrenous cholecystitisProcedure: Laparoscopy, laparotomy, open cholecystectomySurgeon: Dr. Will/Fellow/Other Area Field Worker: Dr. Clementina Pablothesia: General ETTI.V. Fluids: 1800ccEstimated Blood Loss (mL): 50ccBlood Replacement: NoenSpecimen: yesComplications: NoneFindings: Acute on chronic, gangrenous cholecystitis with large gallstones.Bile spillage noted during the case.Patient Returned To/Condition: Extubated, vitals normal, respondingappropriately.Urine Output: 220ccDrains and/or Catheters: Matthew catheter removed at end of procedure. Operative Report Dictated:Dictation: yesDictated by: Dr. Lanete of Dictation: 11-Jan-2018 Signature/Cosignature/Attestation:Attending AttestationI was present for the entire procedure Electronic Signatures:Jan Richards (Resident)) (Signed 11-Jan-2018 10:37)Authored: Post Operative Note, Signature/Cosig (more content not included)... Procedure Findings Note Post Operative Note: PreOp D iagnosis: Acute on chronic cholecystitisPost- Procedure Diagnosis: Acute on chronic, gangrenous cholecystitisProcedure: Laparoscopy, laparotomy, open cholecystectomySurgeon: Dr. Will/Fellow/Other Area Field Worker: Dr. Clementina Pabloa: General ETTI.V. Fluids: 1800ccEstimated Blood Loss (mL): 50ccBlood Replacement: NoenSpecimen: yesComplications: NoneFindings: Acute on chronic, gangrenous cholecystitis with large gallstones.Bile spillage noted during the case.Patient Returned To/Condition: Extubated, vitals normal, respondingappropriately.Urine Output: 220ccDrains and/or Catheters: Matthew catheter removed at end of procedure. Operative Report Dictated:Dictation: yesDictated by: Dr. Butler of Dictation: 11-Jan-2018 Signature/Cosignature/Attestation:Attending AttestationI was present for the entire procedure Electronic Signatures:Jan Richards (Resident)) (Signed 11-Jan-2018 10:37)Authored: Post Operative Note, Signature/Cosig (more content not included)... 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 [place] [address] Referral ID Status Reason Start Date Expiration Date V isits Requested Visits Authorized [id number] New Request 11/03/2022 11/28/2023 1 1 Additional Source Comments (unrecognized sect ion and content) No Status Records FoundNo Status Records FoundNo Status Records FoundNo Status Records FoundNo Status Records Found INFORMATION SOURCE (unrecogn ized section and content) DATE CREATED AUTHOR AUTHOR'S ORGANIZ ATION 03/16/2018 [facility] ([place]) DATE CREATED AUTHOR AUTHOR'S ORGANIZ ATION 06/19/2018 [employer] DATE CREATED AUTHOR AUTHOR'S ORGANIZ ATION 08/19/2021 [facility] DATE CREATED AUTHOR AUTHOR'S ORGANIZ ATION 11/05/2022 [facility] Source Comments (unrecognize d section and content) In the event this informatio n is protected by the Federal Confidentiality of Alcohol and Drug Abuse Patient Records regulations: The Federal rules restrict any use of the information to criminally investigate or prosecute any alcohol or drug abuse patient.[facility] the event this information is protected by the Federal Confidentiality of Alcohol and Drug Abuse Patient Records regulations: The Federal rules restrict any use of the information to criminally investigate or prosecute any alcohol or drug abuse patient.[facility] Reason for Visit (unrecogniz ed section and content) Reason Comments Patient Question Specialty Diagnoses / Procedures Referred By Contac t Referred To Contact Diagnoses Abnormal liver function tests 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 [place] [address] Referral ID Status Reason Start Date Expiration Date V isits Requested Visits Authorized [id number] New Request 11/03/2022 11/28/2023 1 1 Care Teams (unrecognized sec tion and content) FOR RECORDS PERTAINING TO PATIENTS WHO ARE OR HAVE BEEN ENROLLED IN A CHEMICAL DEPENDENCY/SUBSTANCEABUSE PROGRAM, SOME INFORMATION MAY BE OMITTED. This clinical summary was aggregated from multiple sources. Caution should be exercised in using it in the provision of clinical care. This summary normalizes information from multiple sources, and as a consequence, information in this document may materially change the coding, format and clinical context of patient data. In addition, data may be omitted in some cases. CLINICAL DECISIONS SHOULD BE BASED ON THE PRIMARY CLINICAL RECORDS. [employer] provides no warranty or guarantee of the accuracy or completeness of information in this document.
[2023-05-15 13:31] LABS: Hemoglobin A1c 5.9 % (3.8-5.6)
== END | disposition home or self-care (01) ==
LOC: LAB 12:20
PROVIDERS: Referring Provider Nurse Practitioner Family; Visit Provider Nurse Practitioner Family
DX: E11.9 Type 2 diabetes mellitus without complications (principal)
CPT/HCPCS: 36415; 83036

== ENCOUNTER → 2023-05-23 | Outpatient (CLI) | payer MEDICAID, SELFPAY ==
--- NOTE | 2023-05-23 16:06 | CT_ITS ---
STUDY: CT ABDOMEN WITH AND WITHOUT CONTRAST REASON FOR EXAM: Male, 47 years old. LIVER CIRRHOSIS, TRIPLE PHASE RADIATION DOSAGE (If Supplied By Facility): CTDIvol = ( 31.33 ) mGy, DLP = ( 2903.03 ) mGycm TECHNIQUE: Transaxial images were obtained pre and post I.V. administration of Isovue 300-100ml, and without oral contrast. Sagittal and coronal images were reconstructed. Individualized dose optimization techniques were used for this CT. COMPARISON: Comparison is made with prior study dated September 20, 2021. FINDINGS: Stable 5 mm partially calcified granuloma in the lateral aspect of the right lower lobe. The visualized portions of the heart are within normal limits. There is hepatomegaly with diffuse hepatic enlargement. Fatty infiltration of the liver. The gallbladder is contracted. There is moderate splenomegaly. Normal pancreas. Normal bilateral adrenal glands. Normal right kidney. Stable left renal cyst. Normal visualized stomach. Normal small intestine. Normal colon. The appendix is visualized and appears normal. Normal abdominal aorta. Normal inferior vena cava. Normal retroperitoneum. Normal abdominal wall. Normal osseous structures. CT/Abdomen W/WO IV Contrast IMPRESSION: Hepatosplenomegaly. Diffuse fatty infiltration of the liver. No focal lesion is seen. The patient is status post cholecystectomy. Stable left renal cyst. Electronically Signed: Jt Anderson MD at 11:29 EDT ,
[2023-05-23 23:38] LABS: CREATININE FINGERSTICK 2.1 mg/dL (0.70-1.30)
== END | disposition home or self-care (01) ==
PROVIDERS: Referring Provider Internal Medicine Gastroenterology; Visit Provider Internal Medicine Gastroenterology
DX: K74.60 Unspecified cirrhosis of liver (principal)
CPT/HCPCS: 74170; Q9967; A4216

== ENCOUNTER 2023-07-10 09:41 | Emergency (ER) | payer MEDICAID, SELFPAY ==
[2023-07-10 09:42] VITALS: BP 155/96; PULSE 89; RESP 20; TEMP 36.1; O2SAT 95; BMI 65.9
--- NOTE | 2023-07-10 09:46 | ED.VIS.DYS ---
HPI History of Present Illness Chief Complaint: Cold Sx [facility] Medical History BiPAP (biphasic positive airway pressure) dependence COVID-19 Diabetes Elevated liver enzymes Fatty liver Former smoker History of edema History of renal disease History of steroid therapy Hyperlipidemia Hypertension Pneumonia Sleep apnea Thyroid disease Vitamin D deficiency Home Medications aspirin 81 mg chewable tablet 81 mg PO DAILY@0800 heart health 08/11/16 [History Last Taken 04/15/18] magnesium oxide 250 mg PO TIDCM supplement 04/16/18 [History Last Taken 04/15/18] blood sugar diagnostic (Blood Glucose Test strips) #100 ea 11/28/19 [Rx Last Taken Unknown] lancets 28 gauge (Easy Touch Lancets) #100 ea 02/27/20 [Rx Last Taken Unknown] OneTouch Verio Flex meter (blood-glucose meter) #1 ea 06/29/20 [Rx Last Taken Unknown] metoprolol tartrate 50 mg tablet 50 mg PO BID blood pressure #180 tabs 10/01/20 [Rx Last Taken Unknown] atorvastatin 20 mg tablet 20 mg PO QHS cholestoral 12/21/20 [History Last Taken Unknown] cholecalciferol (vitamin D3) 1,250 mcg (50,000 unit) capsule 50,000 unit PO QWEEK supplement 02/07/21 [History Last Taken 02/04/21] BD Insulin Syringe 1 mL 25 gauge x 5/8 (insulin syringe-needle U-100) #100 ea 05/24/21 [Rx Last Taken Unknown] pen needle, diabetic 32 gauge x 5/32 (BD Ultra-Fine Shani Pen Needle) #100 ea 06/01/22 [Rx Last Taken Unknown] insulin syringe-needle U-100 0.5 mL 31 gauge x 5/16 (BD Insulin Syringe Ultra-Fine) #100 ea 06/02/22 [Rx Last Taken Unknown] OneTouch Verio test strips (blood sugar diagnostic) #100 ea 08/25/22 [Rx Last Taken Unknown] amlodipine 5 mg tablet 5 mg PO DAILY 09/19/22 [History Last Taken Unknown] lancets 33 gauge (OneTouch Delica Plus Lancet) #100 ea 12/05/22 [Rx Last Taken Unknown] insulin lispro protamine-lispro 100 unit/mL (50-50) subcutaneous susp (Humalog Mix 50-50 Insuln U-100) See Rx Instructions subcut BID DM #53 mL 01/26/23 [Rx Last Taken Unknown] scopolamine base 1 mg over 3 days transdermal patch 1 patch transdermal Q72H PRN 01/26/23 [History Last Taken Unknown] tirzepatide 15 mg/0.5 mL subcutaneous pen injector (Mounjaro) 15 mg (0.5 mL) subcut QWEEK #2 mL 01/26/23 [Rx Last Taken Unknown] ursodiol 300 mg capsule 300 mg PO BID #60 caps 03/10/23 [Rx Last Taken Unknown] gabapentin 300 mg capsule 300 mg PO TID PRN neuropathy #90 caps 04/10/23 [Rx Last Taken Unknown] levothyroxine 175 mcg tablet 175 mcg PO DAILY #30 tabs 04/10/23 [Rx Last Taken Unknown] insulin NPH isoph U-100 human 100 unit/mL subcutaneous suspension (Humulin N NPH U-100 Insulin (isophane susp)) 70 unit (0.7 mL) subcut QAM #21 mL 04/17/23 [Rx Last Taken Unknown] Allergy/AdvReac Type Severity Reaction Status Date / Time wool AdvReac Severe Hives Verified 07/10/23 09:42 Family History Grandfather Family history of heart disease Family history of hypertension Mother Family history of high cholesterol COPD (chronic obstructive pulmonary disease) Grandfather Family history of high cholesterol Sleep apnea Aunt Family history of hypertension Other Family history of hypertension in mother Surgical History History of esophagogastroduodenoscopy (EGD) history of gallbladder sugery History of surgery History of tonsillectomy and adenoidectomy Social History Smoking Status: Former smoker alcohol intake: never substance use type: does not use EXAM Physical Exam Const Vital Signs: 07/10/23 09:42 07/10/23 12:45 Temperature 97 F L 97.2 F L Temperature Source Temporal Pulse Rate 89 75 Respiratory Rate 20 H 16 Blood Pressure 155/96 H 129/74 H Blood Pressure Mean 115 92 Pulse Ox 95 95 Oxygen Delivery Method Room Air MDM MDM MDM Narrative Medical decision making narrative: HISTORY OF PRESENT ILLNESS: 48-year-old male presents with cough for 3 weeks. Notes chest tightness with cough. States he may have pneumonia. He further states he has no chest pain or shortness of breath but has coughed up white sputum for the last several weeks and is concerned he may have pneumonia. The patient denies recent surgery in the last 4 weeks or immobilization in the last 3 days, denies previous diagnosis of DVT or PE, hemoptysis, unilateral leg swelling or malignancy with treatment the last 6 months or palliative. No estrogen use noted. Patient denies sudden onset of pain, no tearing sensation, no migratory symptoms, no new numbness, weakness or loss of sensation. Patient denies family history or personal history of Connective tissue disorders (Marfan's Syndrome, Romain Danlos etc) REVIEW OF SYSTEMS: Pertinent positives: Cough Pertinent negatives: Chest pain, shortness of breath PHYSICAL EXAM: Nursing triage notes reviewed, Vital signs reviewed Constitutional: please see mdm HENT: MMM Eyes: Pupils equal round and reactive to light, Extraocular muscles intact Neck: No stridor, no JVD, full neck ROM Lungs: Clear to auscultation, No wheezing or rales. No increased work of breathing, no conversational dyspnea, no accessory muscle use, no nasal flaring. No respiratory distress noted Heart: Regular rate and rhythm, No murmurs, No rubs and No gallops, 2+ distal pulses (radial, femoral, posterior tibial) in all extremities Abdomen: Soft, there is no tenderness, rigidity, rebound or guarding, no obvious peritoneal signs, no palpable pulsatile abdominal masses, no auscultated abdominal bruit Extremities: No edema Neuro: No focal neurological deficits, cranial nerves II through XII intact, 5/5 strength in all extremities. Intact sensation to light touch in all extremities, 2+ reflexes bilateral patella tendons. Normal gait. No ataxia. Skin: No rash or lesions noted MEDICAL DECISION MAKING: Chief Complaint: Cough External records reviewed: Imaging reviewed: Chest x-ray of 2022 shows no congestive heart failure but noted early right lower lobe infiltrate Factors affecting care: Liver cirrhosis, type 2 diabetes [facility] Narrative: Patient was hemodynamically stable, afebrile and nontoxic-appearing. Exam with no obvious focal lung abnormalities. I considered the following differential diagnosis: Pneumonia, viral illness ALL IMAGES (IF OBTAINED) HAVE BEEN PERSONALLY REVIEWED AND INTERPRETED BY MYSELF. I have personally reviewed the patient's chest x-ray. Chest x-ray is unremarkable for pulmonary edema, pneumothorax, pneumonia or focal cardiopulmonary abnormality. Incidental finding discussed. The patient and/or family, caregivers express understanding. The patient and/or family, caregivers agrees with the plan. Shared decision making: I will have a discussion with the patient and or visitors regarding risk/benefits of further testing or admission. They will be made aware of of the risk/benefits inherent in this decision they will be given the opportunity to voice understanding. Total critical care time today provided was at least 0 minutes. This excludes separately billable procedures. Critical care time (if documented) is secondary to the patient having high probability of clinically significant/life threatening deterioration in the patient's condition which required my urgent intervention. Impression: 1. Cough Dispo: Discharge home This note was generated with [employer] dictation software. It may contain incorrect words, spelling, and punctuation that were not noted in review of the chart prior to signing. Radiography Diagnostic Testing: Clinical Impression(s) from Imaging Studies Chest X-Ray 07/10/23 10:05 IMPRESSION: 7.7 mm x 11.2 mm noncalcified nodule in the right midlung. This was not well seen on prior study. Electronically Signed: Jt Anderson MD at 10:50 EDT Reading Location ID and State: [address] [place] [address] , Service support , Discharge Plan Triage Chief Complaint: Cold Sx ED Provider: Cosme Espinoza Dx/Rx/DC Orders Clinical Impression: Incidental lung nodule Instructions: ED Pulmonary Nodule, Solitary Prescriptions: No Action (DME) lancets [Easy Touch Lancets] 28 gauge misc See Rx Instructions .ROUTE .MEDSUPPLY Qty: 100 6RF Rx Instructions: 3 times daily atorvastatin 20 mg tablet 20 mg PO QHS Patient Comments: TAKE 1 TABLET BY MOUTH AT BEDTIME (DME) BD Insulin Syringe 1 mL 25 gauge x 5/8 syringe See Rx Instructions .ROUTE .MEDSUPPLY Qty: 100 6RF Rx Instructions: bid amlodipine 5 mg tablet 5 mg PO DAILY gabapentin 300 mg capsule 300 mg PO TID PRN (Reason: neuropathy) Qty: 90 0RF scopolamine base 1 mg over 3 days patch 3 day 1 patch transdermal Q72H PRN Mounjaro 15 mg/0.5 mL pen injector 15 mg subcut QWEEK Qty: 2 5RF Humalog Mix 50-50 Insuln U-100 100 unit/mL (50-50) suspension See Rx Instructions SC BID MDD 190 u Qty: 53 6RF Rx Instructions: 60 units in am and 130 units at supper, subcutaneously twice a day; aspirin 81 MG tablet,chewable 81 mg PO DAILY@0800 magnesium oxide 250 MG tablet 250 mg PO TIDCM cholecalciferol (vitamin D3) 1,250 mcg (50,000 unit) capsule 50,000 unit PO QWEEK Rx Instructions: Every (DME) Blood Glucose Test Strip See Rx Instructions .ROUTE .MEDSUPPLY Qty: 100 6RF Rx Instructions: test 3 times daily (DME) blood-glucose meter [OneTouch Verio Flex meter] Misc See Rx Instructions .ROUTE .MEDSUPPLY Qty: 1 0RF Rx Instructions: As directed metoprolol tartrate 50 mg tablet 50 mg PO BID Qty: 180 1RF (DME) pen needle, diabetic [BD Ultra-Fine Shani Pen Needle] 32 gauge x 5/32 needle See Rx Instructions .Route Qty: 100 5RF Rx Instructions: BID (DME) insulin syringe-needle U-100 [BD Insulin Syringe Ultra-Fine] 0.5 mL 31 gauge x 5/16 syringe See Rx Instructions .ROUTE .MEDSUPPLY Qty: 100 6RF Rx Instructions: twice daily (DME) OneTouch Verio test strips Strip See Rx Instructions .ROUTE .MEDSUPPLY Qty: 100 8RF Rx Instructions: tid (DME) lancets [OneTouch Delica Plus Lancet] 33 gauge misc See Rx Instructions .ROUTE .MEDSUPPLY Qty: 100 8RF Rx Instructions: tid ursodiol 300 mg capsule 300 mg PO BID Qty: 60 9RF levothyroxine 175 mcg tablet 175 mcg PO DAILY Qty: 30 5RF Humulin N NPH U-100 Insulin 100 unit/mL suspension 70 unit subcut QAM Qty: 21 5RF Stand Alone Forms: ED Work / School Excuse Primary Care Provider: [facility] Linnette Arshad Referrals: [facility] Linnette Arshad [Primary Care Provider] - Activity Restrictions/Additional Instructions: Thank you for trusting us with your care today! Please take Tylenol (2 pills, 650 mg), ibuprofen (2 pills, 400 mg) every 6 hours as needed for pain and fever control. Please return to the emergency department if your symptoms change or worsen. Please follow with your primary care physician for further outpatient evaluation and management. Disposition Disposition: Home, Self Care Discharge Date/Time: 07/10/23 12:46
--- NOTE | 2023-07-10 10:05 | RAD_ITS ---
STUDY: X-RAY CHEST REASON FOR EXAM: Male, 48 years old. Cough, r/o PNA TECHNIQUE: PA and lateral views of the chest. COMPARISON: Comparison is made with prior study dated September 02, 2022. FINDINGS: There is a 7.7 mm x 11.2 mm noncalcified nodule in the right midlung. There is no demonstrated pleural abnormality. There is borderline cardiomegaly. Normal mediastinum and susana. Normal visualized pulmonary arteries. Normal visualized aortic arch and descending thoracic aorta. Normal visualized thoracic spine. Normal visualized ribs, clavicles, and shoulders. There is no demonstrated abnormality of the visualized soft tissue structures of the upper abdomen. RAD/Chest PA and Lateral IMPRESSION: 7.7 mm x 11.2 mm noncalcified nodule in the right midlung. This was not well seen on prior study. Electronically Signed: Jt Anderson MD at 10:50 EDT ,
[2023-07-10 12:45] VITALS: BP 129/74; PULSE 75; RESP 16; TEMP 36.2; O2SAT 95
== END 2023-07-10 12:46 | disposition home or self-care (01) ==
PROVIDERS: Emergency Provider Emergency Medicine; Visit Provider Emergency Medicine
DX: R91.1 Solitary pulmonary nodule (principal); K74.60 Unspecified cirrhosis of liver; E11.9 Type 2 diabetes mellitus without complications; Z87.891 Personal history of nicotine dependence; R05.9 Cough, unspecified; I10 Essential (primary) hypertension; E78.5 Hyperlipidemia, unspecified
CPT/HCPCS: 71046; 99282; A4216

== ENCOUNTER → 2023-08-08 | Outpatient (CLI) | payer MEDICAID, SELFPAY ==
--- NOTE | 2023-08-08 06:51 | CT_ITS ---
INDICATION: right middle nodule follow up EXAMINATION: - CT Chest W/O Contrast Injection A radiation dose optimization technique was used for this scan. RADIATION DOSAGE (If Supplied By Facility): CTDIvol/DLP = ( 28.71 ) / ( 1025.44 ) mGy/mGycm COMPARISON: Chest radiograph 07/10/2023. Abdominal CT 09/20/2021. FINDINGS: Noncontrast serial CT axial images through the chest with coronal and sagittal reformatted series. MEDIASTINUM: Few tiny coronary artery atherosclerotic calcifications. Mediastinal adenopathy measuring up to 14 mm in the short axis in the subcarinal region. LUNG PARENCHYMA: Numerous bilateral groundglass pulmonary nodules with dominant right middle lobe dense 19 mm pulmonary nodule. PLEURA: No pleural effusion. No pneumothorax. BONES: Osseous structures are unremarkable for age. UPPER ABDOMEN: Significant splenomegaly measuring 20 cm, stable from 2021 CT/Chest without Contrast IMPRESSION: Numerous bilateral groundglass pulmonary nodules with dominant right middle lobe dense 19 mm pulmonary nodule. Mediastinal adenopathy. Recommend comparison with previous chest CT imaging to document long-term stability versus follow-up evaluation as per Fleischner guidelines as neoplastic process is not excluded. Stable splenomegaly. Electronically Signed: Dennis Hurt MD at 7:12 EDT ,
== END | disposition home or self-care (01) ==
LOC: CT 06:50
PROVIDERS: Referring Provider Internal Medicine Gastroenterology; Visit Provider Internal Medicine Gastroenterology
DX: R91.1 Solitary pulmonary nodule (principal)
CPT/HCPCS: 71250

== ENCOUNTER → 2023-08-11 | Outpatient (CLI) | payer MEDICAID, SELFPAY ==
[2023-08-11 09:56] LABS: Platelet Count 120 K/mm3 (150-450)
[2023-08-11 10:06] LABS: Partial Thromboplast Time 29.8 Seconds (24.1-36.2)
[2023-08-11 10:20] LABS: ALB/GLOB Ratio 0.8 RATIO (0.9-2.4); Globulin 4.4 g/dL (2.2-4.2)
== END | disposition home or self-care (01) ==
LOC: LAB 09:30
PROVIDERS: PCP Nurse Practitioner Family; Referring Provider Nurse Practitioner Acute Care; Visit Provider Nurse Practitioner Acute Care
DX: I10 Essential (primary) hypertension (principal); I48.91 Unspecified atrial fibrillation; R06.00 Dyspnea, unspecified; J90 Pleural effusion, not elsewhere classified
CPT/HCPCS: 36415; 84156; 85049; 85730

== ENCOUNTER → 2023-08-29 | Outpatient (CLI) | payer MEDICAID, SELFPAY ==
[2023-08-29 12:28] LABS: Anion Gap 9 (5-15); BUN 26 mg/dL (7-18); BUN/Creat Ratio 15.3 RATIO (10-20); Calcium,Total 9.9 mg/dL (8.5-10.1); Chloride 102 mmol/L (98-107); EST Glomerular Filtration Rate 46 mL/min (>60); Est Glom Filt Rate - Afr Amer 55 mL/min (>60); Glucose 301 mg/dL (74-106); Potassium 3.9 mmol/L (3.5-5.1); Sodium Level 132 mmol/L (136-145)
[2023-08-29 12:32] LABS: Absolute Lymphocyte Count 0.67 X10^3/uL (0.83-4.51); Absolute Neutrophil Count 2.4 X10^3/uL (2.0-7.7); Basophil# 0.02 X10^3/uL; Basophil% 0.6 % (0-1); Eosinophil# 0.12 X10^3/uL; Eosinophils% 3.4 % (0-5); Hematocrit 39.8 % (40-54); Hemoglobin 13.5 g/dL (13.0-16.5); Lymphocyte # 0.67 X10^3/ul (0.83-4.51); Lymphocyte % 18.8 % (19-41); Mean Corp Hgb Conc 33.9 g/dL (32-36); Mean Corpuscular Hgb 30.3 pg (27.0-32.0); Mean Corpuscular Volume 89.4 fL (80-94); Mean Platelet Vol. 9.1 fl (6.2-12.0); Monocyte# 0.32 X10^3/uL; NRBC Flagged by Analyzer 0 % (0-5); Neutrophil # 2.41 X10^3/uL (2.7-7.7); Neutrophil % 67.4 % (47-70); Platelet Count 119 K/mm3 (150-450); RBC Distribution Width CV 14.9 % (11.6-14.6); RBC Distribution Width SD 48.7 fl (35.1-43.9); Red Blood Count 4.45 M/mm3 (4.6-6.2); White Blood Count 3.6 K/mm3 (4.4-11.0)
[2023-08-29 12:37] LABS: International Normalized Ratio 1.1; Prothrombin Time (Protime)PT. 14.6 SECONDS (11.7-14.9)
== END | disposition home or self-care (01) ==
LOC: LABSPEC 11:38
PROVIDERS: PCP Nurse Practitioner Family; Visit Provider Nurse Practitioner Family
DX: R91.1 Solitary pulmonary nodule (principal); I10 Essential (primary) hypertension
CPT/HCPCS: 36415; 80048; 85025; 85610

== ENCOUNTER → 2023-09-04 | Outpatient (CLI) | payer MEDICAID, SELFPAY ==
[2023-09-04] VITALS (15 sets, daily range): BP systolic 89–139; BP diastolic 26–78; PULSE 56–83; RESP 18; TEMP 36.6; O2SAT 94–98; BMI 67.3
[2023-09-04 09:05] LABS: Platelet Count 114 K/mm3 (150-450)
[2023-09-04 09:10] LABS: International Normalized Ratio 1.1; Partial Thromboplast Time 28.6 Seconds (24.1-36.2); Prothrombin Time (Protime)PT. 13.7 SECONDS (11.7-14.9)
[2023-09-04] MEDS: 0.9% Normal Saline (250mL Bag) 250 ML 15 ML IV (10:10)
[2023-09-04] MEDS: Midazolam 2 MG/2 ML Syringe IV ×2 (10:16→10:23)
[2023-09-04] MEDS: fentaNYL 100 MCG/2 ML Ampul IV (10:17)
[2023-09-04] MEDS: Lidocaine 2% (20 ml mdv) 20 ML Vial INFILT (10:26)
--- NOTE | 2023-09-04 10:30 | ASPIGT_PTH ---
PATIENT: CHRISTA SILVERMAN LOC: CT U#:[id number] AGE/SX: 48/M ROOM: RE09/04/[address]: GUSTAVO Block : 1975 BED: DIS: 09/04/2023 SPEC #: [id number] RECD: 09/04/23 11:14 STATUS: CHIVO REBryan #: [id number] ARYAN: 09/04/23 10:[address]: Ayana Mann NP DEPT: SURGICAL PATHOLOGY RECD BY: Jo Payton ENTERED: 09/04/23 11:15 SP TYPE: ASP RAD OTHR DR: DAVID ALFORD, [facility], NURSE PRACTITIONER ADULT-C Tissues: Lung, NOS Procedures: FNA Specimen Adequacy Special Stain Group II Surgery Specimen Level IV Imprint (control) HEADER OPERATION: CT guided lung biopsy PRE-OP DIAGNOSIS: Lung biopsy TISSUE SUBMITTED: Right upper lobe lung, core biopsy. MICROSCOPIC DIAGNOSIS Right upper lobe lung, CT guided core biopsy: Fragments of lung parenchymal tissue with focal non-necrotizing chronic granulomatous inflammation. Negative for malignancy. See comment. / 09/05/2023 COMMENT The specimen is evaluated at the time of biopsy by Dr. Wyman. Immediate Evaluation = Negative for malignant cells. Epithelioid cells and giant cells consistent with granulomas are noted. Special stains for acid fast bacilli and fungi are negative for organisms; matched controls are appropriate. Finding may represent sarcoidosis in appropriate clinical settings. Correlation with clinical, radiologic, laboratory findings and appropriate follow up are necessary. MICROSCOPIC DESCRIPTION Slides are reviewed. GROSS DESCRIPTION Received in fixative is one container labeled with the patient's name and designated Right upper lobe lung biopsy. The specimen consists of multiple irregular fragments of sweeney soft tissue that in aggregate measure 1.5 x 0.2 x <0.1 cm. The specimen is totally submitted in one cassette. Three touch imprints are prepared at the time of core biopsy. / 09/04/2023 TC:3 CPT:14865,[id number],[id number]
--- NOTE | 2023-09-04 10:30 | CT_ITS ---
PROCEDURE: Ultrasound Guided PROCEDURE: CT GUIDED CORE NEEDLE BIOPSY OF A LUNG LESION INDICATION: Male, 48 years old. Right upper lobe lung nodule PHYSICIAN: Dr. Justin Mckeon CONSENT: Written informed consent was obtained having explained the risks, benefits and alternatives in detail with the patient who accepted the risks and agreed to proceed. Laboratory review and clinical assessment was performed. CONSCIOUS SEDATION PROTOCOL: The Drugs used were: 2 mg Versed, IV., and 50 mcg Fentanyl, IV. The sedation time was: 18minutes. Conscious sedation was started at 10:16 AM and terminated at 10:34 AM. The conscious sedation protocol was independently monitored. RADIATION DOSAGE (If Supplied By Facility): CTDIvol = ( 19 ) mGy, DLP = ( 936.74 ) mGycm Individualized dose optimization techniques were used for this CT. TECHNIQUE: The patient was placed in the supine position. A noncontrast CT was performed to localize the lesion in the anterior right upper lobe . The skin surface was prepped and draped in a sterile fashion. 1% lidocaine was used for local anesthesia. Using CT guidance, a 20-gauge coaxial biopsy device was advanced to the periphery of the lesion. A total of 6 core specimens were obtained. The specimens were placed in a formalin solution. A post procedure CT demonstrated no adverse sequelae or pneumothorax. The patient tolerated the procedure well without adverse event. A negative biopsy does not exclude malignancy. Further imaging or clinical followup based on patient condition and degree of clinical suspicion for malignancy. Suggest rebiopsy, if biopsy results do not match with clinical scenario. CT/Biopsy/Inj or Needle Placement IMPRESSION: 1. CT directed core needle biopsy of the right upper lobe pulmonary nodule using CT image guidance with image documentation as described. Pathology results are pending. 2. Conscious Sedation protocol utilized with independent monitoring. Electronically Signed: Jt Anderson MD at 11:01 EDT ,
--- NOTE | 2023-09-04 10:30 | RAD_ITS ---
STUDY: X-RAY CHEST REASON FOR EXAM: Male, 48 years old. Immediate post lung biopsy -- Immediately post lung biopsy TECHNIQUE: AP inspiration and expiration views COMPARISON: Comparison is made with prior study dated July 10, 2023. FINDINGS: The patient is status post biopsy of a left nodule. No evidence of pneumothorax on the immediate post right lung biopsy radiographs. RAD/Chest Insp/Exp 2 View IMPRESSION: No evidence of pneumothorax on the immediate post right lung biopsy radiographs. Electronically Signed: Jt Anderson MD at 11:16 EDT ,
--- NOTE | 2023-09-04 12:25 | RAD_ITS ---
STUDY: X-RAY CHEST REASON FOR EXAM: Male, 48 years old. 2 hour post lung biopsy -- 2 hours post lung biopsy TECHNIQUE: AP inspiration and expiration views. COMPARISON: Comparison is made with prior study done earlier in the day. FINDINGS: There is no evidence of pneumothorax on the two-hour post right lung biopsy radiographs. RAD/Chest Insp/Exp 2 View IMPRESSION: No evidence of pneumothorax on the two-hour post right lung biopsy radiographs. Electronically Signed: Jt Anderson MD at 12:41 EDT ,
== END | disposition home or self-care (01) ==
LOC: CT 08:44
PROVIDERS: Nurse Practitioner Acute Care; PCP Nurse Practitioner Family; Referring Provider Nurse Practitioner Acute Care; Visit Provider Nurse Practitioner Acute Care
DX: Z01.818 Encounter for other preprocedural examination (principal); R91.8 Other nonspecific abnormal finding of lung field; R91.1 Solitary pulmonary nodule
CPT/HCPCS: 32408; 36415; 71046; 77012; 85049; 85610; 85730; 88172; 88305; 88313; 99156; J7050; C2613

== ENCOUNTER → 2023-09-26 | Outpatient (CLI) | payer MEDICAID, SELFPAY ==
[2023-09-26 10:26] LABS: Protein, Urine (Random) 70.6 mg/dL (<11.9); Protein:Creat Ratio 556 mg/g CRE (0-200)
[2023-09-26 10:40] LABS: Anion Gap 9 (5-15); BUN 24 mg/dL (7-18); BUN/Creat Ratio 13.6 RATIO (10-20); Chloride 103 mmol/L (98-107); Creatinine, Serum 1.77 mg/dL (0.70-1.30); EST Glomerular Filtration Rate 44 mL/min (>60); Est Glom Filt Rate - Afr Amer 53 mL/min (>60); Glucose 214 mg/dL (74-106); Potassium 3.6 mmol/L (3.5-5.1); Sodium Level 135 mmol/L (136-145)
== END | disposition home or self-care (01) ==
LOC: PAVLAB 09:04
PROVIDERS: PCP Nurse Practitioner Family; Referring Provider Internal Medicine Nephrology; Visit Provider Internal Medicine Nephrology
DX: N18.32 Chronic kidney disease, stage 3b (principal)
CPT/HCPCS: 36415; 80048; 82570; 84156

== ENCOUNTER → 2023-12-28 | Outpatient (CLI) | payer MEDICAID, SELFPAY ==
--- NOTE | 2023-12-28 08:18 | CT_ITS ---
HISTORY: follow lung nodule. TECHNIQUE: Helically acquired images were obtained of the chest without contrast. A radiation dose optimization technique was used for this scan. 938 images. COMPARISON: XR 09/04/2023, CT 08/08/2023. FINDINGS: LARGE AIRWAYS: Patent. LUNGS: Upper lobe predominant groundglass opacities, mildly decreased. Unchanged 1.8 cm right middle lobe nodule. Nodular irregular opacities in the right lower lobe measuring up to 8 mm, unchanged. Stable 5 mm left upper lobe nodule laterally. Stable 6 mm irregular left lower lobe nodule medially. PLEURA: No pneumothorax or significant pleural effusion. HEART/PERICARDIUM: Heart within normal limits in size. Mild coronary artery calcification. No pericardial effusion. VESSELS: Thoracic aorta nondilated. MEDIASTINUM/TEENA: Several small mediastinal lymph nodes. UPPER ABDOMEN: Hepatomegaly. Cholecystectomy. Splenomegaly. BONES: Intact. CT/Chest without Contrast IMPRESSION: No significant interval change in size of bilateral pulmonary nodules measuring up to 1.8 cm in the right middle lobe. Recommend continued follow-up. Bilateral upper lobe predominant groundglass opacities, mildly decreased. Electronically Signed: Vania Scott MD at 12:36 EDT ,
== END | disposition home or self-care (01) ==
LOC: CT 08:16
PROVIDERS: PCP Nurse Practitioner Family; Referring Provider Nurse Practitioner Acute Care; Visit Provider Nurse Practitioner Acute Care
DX: R91.1 Solitary pulmonary nodule (principal)
CPT/HCPCS: 71250

== ENCOUNTER → 2024-01-23 | Outpatient (CLI) | payer MEDICAID, SELFPAY ==
[2024-01-23 11:12] LABS: Absolute Lymphocyte Count 0.85 X10^3/uL (0.83-4.51); Absolute Neutrophil Count 3.7 X10^3/uL (2.0-7.7); Basophil# 0.02 X10^3/uL; Basophil% 0.4 % (0-1); Eosinophil# 0.24 X10^3/uL; Eosinophils% 4.7 % (0-5); Hematocrit 39.1 % (40-54); Hemoglobin 13.5 g/dL (13.0-16.5); Lymphocyte # 0.85 X10^3/ul (0.83-4.51); Lymphocyte % 16.5 % (19-41); Mean Corp Hgb Conc 34.5 g/dL (32-36); Mean Corpuscular Hgb 32.5 pg (27.0-32.0); Mean Corpuscular Volume 94.2 fL (80-94); Monocyte# 0.31 X10^3/uL; NRBC Flagged by Analyzer 0 % (0-5); Neutrophil # 3.72 X10^3/uL (2.7-7.7); Platelet Count 128 K/mm3 (150-450); RBC Distribution Width CV 14.9 % (11.6-14.6); RBC Distribution Width SD 50.9 fl (35.1-43.9); Red Blood Count 4.15 M/mm3 (4.6-6.2); White Blood Count 5.2 K/mm3 (4.4-11.0)
[2024-01-23 11:23] LABS: International Normalized Ratio 1.1; Prothrombin Time (Protime)PT. 14.1 SECONDS (11.7-14.9)
[2024-01-23 11:36] LABS: ALB/GLOB Ratio 0.9 RATIO (0.9-2.4); AST(SGOT) 52 U/L (15-37); Alanine Aminotransfer ALT/SGPT 38 U/L (16-61); Albumin, Serum 3.6 g/dL (3.2-5.0); Alkaline Phosphatase 195 U/L (45-117); Anion Gap 8 (5-15); BUN 28 mg/dL (7-18); BUN/Creat Ratio 16.6 RATIO (10-20); Calcium,Total 8.8 mg/dL (8.5-10.1); Chloride 110 mmol/L (98-107); Creatinine, Serum 1.69 mg/dL (0.70-1.30); EST Glomerular Filtration Rate 46 mL/min (>60); Est Glom Filt Rate - Afr Amer 56 mL/min (>60); Globulin 4.1 g/dL (2.2-4.2); Glucose 164 mg/dL (74-106); Potassium 4.2 mmol/L (3.5-5.1); Protein, Total 7.7 g/dL (6.4-8.2); Sodium Level 138 mmol/L (136-145)
[2024-01-25 16:11] LABS: AFP, Tumor Marker 2.5 ng/mL (0.0-6.9); Albumin 3.5 g/dL (2.9-4.4); Alpha-1-Globulins 0.3 g/dL (0.0-0.4); Alpha-2-Globulins 0.7 g/dL (0.4-1.0); Gamma Globulin 1.7 g/dL (0.4-1.8); Immunoglobulin A 382 mg/dL (90-386); Immunoglobulin G 1429 mg/dL (603-1613); Immunoglobulin M 142 mg/dL (20-172); PROEL- TOTAL PROTEIN 7.4 g/dL (6.0-8.5)
== END | disposition home or self-care (01) ==
PROVIDERS: PCP Nurse Practitioner Family; Referring Provider Internal Medicine Gastroenterology; Visit Provider Internal Medicine Gastroenterology
DX: K74.60 Unspecified cirrhosis of liver (principal)
CPT/HCPCS: 36415; 80053; 82105; 82784; 84165; 85025; 85610; 86334

== ENCOUNTER → 2024-02-13 | Outpatient (CLI) | payer MEDICAID, SELFPAY | END | disposition home or self-care (01) | LOC: PSN 09:23 | PROVIDERS: PCP Nurse Practitioner Family; Referring Provider Nurse Practitioner Family; Visit Provider Nurse Practitioner Family | DX: R06.02 Shortness of breath (principal) | CPT/HCPCS: 94060; 94726; 94729 ==

== ENCOUNTER → 2024-02-20 | Outpatient (CLI) | payer MEDICAID, SELFPAY ==
[2024-02-20 11:45] VITALS: PULSE 100; PULSE 106; PULSE 108; PULSE 110; PULSE 113; PULSE 120; PULSE 76; PULSE 86; O2SAT 88; O2SAT 91; O2SAT 92; O2SAT 95; O2SAT 96; O2SAT 97
--- NOTE | 2024-02-20 11:52 | CPS ---
Pt started walk on room air. 3 minutes into walk pt was placed on 1 lpm. Pt was increased to 2 lpm at minute 5. Pt was walked an additional 2 laps post 6 minutes to ensure he was able to maintain his saturation on the 2 lpm. Pt was able to maintain his saturation on 2 lpm.
--- NOTE | 2024-02-26 12:21 | PCM.PSN.6M ---
PSN 6 Minute Walk Test 6 Minute Walk Test 6 Minute Walk Test: 6 Minute Walk Test PSN:6-Minute Walk Test Start: 02/20/24 11:45 Freq: Status: Active Protocol: [id number].[id number] Document 02/20/24 11:45 [facility] (Rec: 02/20/24 11:57 [facility] [id number]) 6 Minute Walk Test Date Performed 02/20/24 Time Performed 11:15 Height 5 ft 10 in Weight: 482 lb Weight in Pounds 482.[address]: Heri Assistive device used: None Pre-test Oxygen Delivery Method Room Air Pulse Ox (%) 96 Pulse Rate (60-100 beats/min) 76 Dyspnea Paxton Scale (0-10) 0 Exertion Paxton Scale (6-20) 6 1st minute Oxygen Delivery Method Room Air Pulse Ox (%) 95 Pulse Rate (60-100 beats/min) 108 H 2nd minute Oxygen Delivery Method Room Air Pulse Ox (%) 92 Pulse Rate (60-100 beats/min) 106 H 3rd minute Oxygen Delivery Method Room Air Pulse Ox (%) 88 Pulse Rate (60-100 beats/min) 100 4th minute Oxygen Flow Rate (L/min) (L/min) 1 Oxygen Delivery Method Nasal Cannula Pulse Ox (%) 92 Pulse Rate (60-100 beats/min) 113 H 5th minute Oxygen Flow Rate (L/min) (L/min) 1 Oxygen Delivery Method Nasal Cannula Pulse Ox (%) 88 Pulse Rate (60-100 beats/min) 120 H 6th minute Oxygen Flow Rate (L/min) (L/min) 2 Oxygen Delivery Method Nasal Cannula Pulse Ox (%) 91 Pulse Rate (60-100 beats/min) 110 H Dyspnea Paxton Scale (0-10) 2 Exertion Paxton Scale (6-20) 13 Post-test Oxygen Flow Rate (L/min) (L/min) 2 Oxygen Delivery Method Nasal Cannula Pulse Ox (%) 97 Pulse Rate (60-100 beats/min) 86 Full Laps Walked 13 Partial Lap, Number of Tiles Walked 0 Total Distance Walked (ft) 767 02/20/24 11:52 [facility] Services by Jazz Owens Pt started walk on room air. 3 minutes into walk pt was placed on 1 lpm. Pt was increased to 2 lpm at minute 5. Pt was walked an additional 2 laps post 6 minutes to ensure he was able to maintain his saturation on the 2 lpm. Pt was able to maintain his saturation on 2 lpm. Initialized on 02/20/24 11:52 - END OF NOTE Interpretation Interpretation: The patient ambulated 767 feet over the course of 6 minutes beginning on room air without assistive devices. Pretesting oxygen saturation was noted to be 96% on room air. With ambulation, the patient desaturated on several occasions, requiring the initiation and subsequent escalation of supplemental O2 to maintain appropriate saturations. Recommendations Recommendations: 2 L/min of supplemental oxygen is required with exertion.
== END | disposition home or self-care (01) ==
LOC: SL 11:11
PROVIDERS: PCP Nurse Practitioner Family; Referring Provider Nurse Practitioner Family; Visit Provider Nurse Practitioner Family
DX: R06.02 Shortness of breath (principal); G47.33 Obstructive sleep apnea (adult) (pediatric)
CPT/HCPCS: 94618; 98960; G0463

== ENCOUNTER → 2024-03-28 | Outpatient (CLI) | payer MEDICAID, SELFPAY ==
--- NOTE | 2024-03-28 12:39 | ECHOCS_ITS ---
Reason For Study: SOB Procedure This was a 2D Doppler, Color Flow transthoracic echocardiogram. The study was technically difficult. Contrast injection was performed. Exam performed in department. Left Ventricle Normal LV size. Mild left ventricular concentric hypertrophy. Anterior and anterior septal hypokinesis. Estimated LVEF 45%. Stage I diastolic dysfunction. Right Ventricle Normal RV size. Mild to moderate global right ventricular systolic dysfunction. Atria The left atrium is severely enlarged. The right atrium is mildly enlarged. Mitral Valve Trivial mitral valve insufficiency. Tricuspid Valve No tricuspid valve insufficiency. Aortic Valve Trisinus/trileaflet aortic valve. Pulmonic Valve The pulmonic valve is not well visualized. Great Vessels Normal sized aortic root. Pericardium/Pleural No pericardial effusion. Medication 22 gauge I.V. with prn adaptor inserted into left arm. Diluted definity 3ml given slow IV push to enhance endocardial definition. MMode/2D Measurements & Calculations LVIDd: 4.8 cm IVSd: 1.1 cm Ao root diam: 3.1 cm LVIDs: 3.9 cm LVPWd: 1.2 cm LA dimension: 5.2 cm FS: 19.8 % LAV(MOD-bp): 95.7 ml LVAd ap4: 43.5 cm2 SV(MOD-sp4): 87.3 ml LAV(MOD-bp) Indexed: 31.4 ml/m2 LVLd ap4: 8.5 cm SI(MOD-sp4): 28.6 ml/m2 LAV(MOD-sp2): 90.2 ml EDV(MOD-sp4): 181.6 ml LAV(MOD-sp4): 88.4 ml EDV(sp4-el): 188.9 ml LVAs ap4: 29.0 cm2 LVLs ap4: 7.4 cm ESV(MOD-sp4): 94.3 ml ESV(sp4-el): 96.7 ml EF(MOD-sp4): 48.1 % EF(sp4-el): 48.8 % SV(sp4-el): 92.2 ml LA A4 area: 25.9 cm2 LA dimension(2D): 4.7 cm TAPSE: 2.8 cm Time Measurements MV dec time: 0.20 sec Doppler Measurements & Calculations MV E max maicol: 104.4 cm/sec Lat Peak E' Maicol: 8.4 cm/sec Med Peak E' Maicol: 10.2 cm/sec MV A max maicol: 77.6 cm/sec E/E' lat: 12.4 E/E' med: 10.2 MV E/A: 1.3 MV V2 max: 140.8 cm/sec MV P1/2t max maicol: 141.8 cm/sec Ao V2 max: 118.4 cm/sec MV max P.9 mmHg MV P1/2t: 75.9 msec Ao max P.6 mmHg MV V2 mean: 79.8 cm/sec MV mean P.9 mmHg MV dec slope: 547.1 cm/sec2 MV V2 VTI: 31.0 cm MVA(P1/2t): 2.9 cm2 LV V1 max: 85.4 cm/sec PA V2 max: 118.3 cm/sec LV V1 max P.9 mmHg PA V2 mean: 80.6 cm/sec ECHO/Echo Complete W/ Contrast Interpretation Summary The study was technically difficult. Mild left ventricular concentric hypertrophy. Anterior and anterior septal hypo kinesis. Estimated LVEF 45%. Stage I diastolic dysfunction. Mild to moderate global right ventricular systolic dysfunction. The left atrium is severely enlarged. Ordering Physician: Swapna Blakely Referring Physician: Swapna Blakely Performed By: Ed Bond RCS
== END | disposition home or self-care (01) ==
LOC: CVS 12:37
PROVIDERS: PCP Nurse Practitioner Family; Referring Provider Nurse Practitioner Family; Visit Provider Nurse Practitioner Family
DX: R06.02 Shortness of breath (principal)
CPT/HCPCS: 93306; Q9957; A4216; C8929

== ENCOUNTER → 2024-04-02 | Outpatient (CLI) | payer MEDICAID, SELFPAY ==
[2024-04-02 13:58] LABS: Vitamin D,25 Hydroxy 24.7 ng/mL
[2024-04-02 14:04] LABS: Cholesterol 138 mg/dL (200); High Density Lipoprotein 46 mg/dL; Triglycerides 210 mg/dL; Very Low Density Lipoprotein 42 mg/dL (5-40)
== END | disposition home or self-care (01) ==
LOC: LAB 13:13
PROVIDERS: PCP Nurse Practitioner Family; Referring Provider Nurse Practitioner Family; Visit Provider Nurse Practitioner Family
DX: E11.65 Type 2 diabetes mellitus with hyperglycemia (principal); Z79.4 Long term (current) use of insulin
CPT/HCPCS: 36415; 80061; 82306; 84439; 84443

== ENCOUNTER → 2024-04-23 | Outpatient (CLI) | payer MEDICAID, SELFPAY ==
[2024-04-23 12:41] LABS: Absolute Neutrophil Count 3.6 X10^3/uL (2.0-7.7); Basophil# 0.03 X10^3/uL; Basophil% 0.5 % (0-1); Eosinophil# 0.23 X10^3/uL; Eosinophils% 4.2 % (0-5); Hematocrit 40.4 % (40-54); Hemoglobin 14.4 g/dL (13.0-16.5); Mean Corp Hgb Conc 35.6 g/dL (32-36); Mean Corpuscular Hgb 31.6 pg (27.0-32.0); Mean Corpuscular Volume 88.6 fL (80-94); Mean Platelet Vol. 9.3 fl (6.2-12.0); Monocyte# 0.49 X10^3/uL; Monocyte% 8.9 % (0-10); NRBC Flagged by Analyzer 0 % (0-5); Neutrophil # 3.62 X10^3/uL (2.7-7.7); Neutrophil % 65.7 % (47-70); Platelet Count 143 K/mm3 (150-450); RBC Distribution Width CV 15.4 % (11.6-14.6); RBC Distribution Width SD 48.5 fl (35.1-43.9); Red Blood Count 4.56 M/mm3 (4.6-6.2); White Blood Count 5.5 K/mm3 (4.4-11.0)
[2024-04-23 12:46] LABS: International Normalized Ratio 1.1; Prothrombin Time (Protime)PT. 14.2 SECONDS (11.7-14.9)
[2024-04-23 12:47] LABS: Partial Thromboplast Time 27.2 Seconds (24.1-36.2)
[2024-04-23 13:00] LABS: Erythrocyte Sedimentation Rate 24 mm/hr (0-20)
[2024-04-23 14:23] LABS: ALB/GLOB Ratio 0.8 RATIO (0.9-2.4); AST(SGOT) 57 U/L (15-37); Alanine Aminotransfer ALT/SGPT 40 U/L (16-61); Albumin, Serum 3.7 g/dL (3.2-5.0); Alkaline Phosphatase 141 U/L (45-117); Anion Gap 11 (5-15); BUN 34 mg/dL (7-18); BUN/Creat Ratio 20.6 RATIO (10-20); CRP 7.49 mg/L (0.0-3.0); Calcium,Total 9.5 mg/dL (8.5-10.1); Chloride 108 mmol/L (98-107); Creatinine, Serum 1.65 mg/dL (0.70-1.30); EST Glomerular Filtration Rate 47 mL/min (>60); Est Glom Filt Rate - Afr Amer 57 mL/min (>60); Globulin 4.4 g/dL (2.2-4.2); Glucose 103 mg/dL (74-106); Potassium 4.1 mmol/L (3.5-5.1); Protein, Total 8.1 g/dL (6.4-8.2); Sodium Level 135 mmol/L (136-145)
[2024-04-26 16:09] LABS: Albumin 3.7 g/dL (2.9-4.4); Alpha-1-Globulins 0.3 g/dL (0.0-0.4); Alpha-2-Globulins 0.7 g/dL (0.4-1.0); Gamma Globulin 1.5 g/dL (0.4-1.8); Immunoglobulin A 356 mg/dL (90-386); Immunoglobulin G 1336 mg/dL (603-1613); Immunoglobulin M 136 mg/dL (20-172); PROEL- TOTAL PROTEIN 7.3 g/dL (6.0-8.5)
== END | disposition home or self-care (01) ==
LOC: LAB 11:14
PROVIDERS: PCP Nurse Practitioner Family; Referring Provider Internal Medicine Gastroenterology; Visit Provider Internal Medicine Gastroenterology
DX: K74.60 Unspecified cirrhosis of liver (principal)
CPT/HCPCS: 36415; 80053; 82784; 84165; 85025; 85610; 85652; 85730; 86140; 86334

== ENCOUNTER → 2024-06-13 | Outpatient (CLI) | payer MEDICAID, SELFPAY ==
[2024-06-13 16:29] LABS: ALB/GLOB Ratio 1.2 RATIO (0.9-2.4); AST(SGOT) 65 U/L (<=37); Alanine Aminotransfer ALT/SGPT 46 U/L (<=46); Albumin, Serum 4.2 g/dL (3.5-5.0); Alkaline Phosphatase 160 U/L (40-129); Anion Gap 15 (5-15); BUN 49 mg/dL (4-19); BUN/Creat Ratio 14.7 RATIO (10-20); Carbon Dioxide 16.5 mmol/L (21.0-32.0); Chloride 100 mmol/L (98-108); Creatinine, Serum 3.36 mg/dL (0.70-1.20); EST Glomerular Filtration Rate 21 (>60); Globulin 3.5 g/dL (2.2-4.2); Glucose 223 mg/dL (70-99); Potassium 4.9 mmol/L (3.3-5.1); Protein, Total 7.7 g/dL (5.9-8.4); Sodium Level 132 mmol/L (133-145)
== END | disposition home or self-care (01) ==
LOC: LAB 14:01
PROVIDERS: PCP Nurse Practitioner Family; Referring Provider Internal Medicine Cardiovascular Disease; Visit Provider Internal Medicine Cardiovascular Disease
DX: N18.32 Chronic kidney disease, stage 3b (principal)
CPT/HCPCS: 36415; 80053

== ENCOUNTER 2024-06-14 14:14 | Inpatient (IN) | payer MEDICAID, SELFPAY ==
[2024-06-14 14:15] VITALS: BP 130/85; PULSE 108; RESP 18; TEMP 36.6; O2SAT 98
--- NOTE | 2024-06-14 14:26 | EKG12_ITS ---
Test Reason : ABN LABS Blood Pressure : */* mmHG Vent. Rate : 93 BPM Atrial Rate : 93 BPM P-R Int : 214 ms QRS Dur : 100 ms QT Int : 400 ms P-R-T Axes : 36 -6 33 degrees QTcB Int : 497 ms Sinus rhythm with 1st degree A-V block Minimal voltage criteria for LVH, may be normal variant ( R in aVL ) Nonspecific T wave abnormality Prolonged QT Abnormal ECG Confirmed by RODRIGO BLANKENSHIP, KT ([id number]), editor in chief EKTA ASCENCIO ([id number]) on 06/17/2024 5:53:53 AM Referred By: Confirmed By: KT WALLACE MD
[2024-06-14 14:54] LABS: Absolute Lymphocyte Count 0.69 X10^3/uL (0.83-4.51); Absolute Neutrophil Count 2.8 X10^3/uL (2.0-7.7); Basophil# 0.02 X10^3/uL; Basophil% 0.5 % (0-1); Eosinophil# 0.19 X10^3/uL; Eosinophils% 4.6 % (0-5); Hematocrit 39.7 % (40-54); Hemoglobin 14.2 g/dL (13.0-16.5); Lymphocyte # 0.69 X10^3/ul (0.83-4.51); Lymphocyte % 16.6 % (19-41); Mean Corp Hgb Conc 35.8 g/dL (32-36); Mean Corpuscular Volume 92.3 fL (80-94); Mean Platelet Vol. 9.1 fl (6.2-12.0); Monocyte# 0.46 X10^3/uL; Monocyte% 11.1 % (0-10); NRBC Flagged by Analyzer 0 % (0-5); Neutrophil # 2.79 X10^3/uL (2.7-7.7); Platelet Count 128 K/mm3 (150-450); RBC Distribution Width CV 16.7 % (11.6-14.6); RBC Distribution Width SD 55.8 fl (35.1-43.9); White Blood Count 4.2 K/mm3 (4.4-11.0)
[2024-06-14 15:32] VITALS: BMI 71.4
[2024-06-14 15:52] LABS: AST(SGOT) 59 U/L (<=37); Alanine Aminotransfer ALT/SGPT 41 U/L (<=46); Albumin, Serum 4.1 g/dL (3.5-5.0); Alkaline Phosphatase 172 U/L (40-129); Anion Gap 13 (5-15); BUN 50 mg/dL (4-19); BUN/Creat Ratio 15.3 RATIO (10-20); Bilirubin, Direct 0.34 mg/dL (0.00-0.30); Carbon Dioxide 18.6 mmol/L (21.0-32.0); Chloride 99 mmol/L (98-108); EST Glomerular Filtration Rate 22 (>60); Estimated Creatinine Clearance 50.83 ml/min (50-250); Globulin 3.3 g/dL (2.2-4.2); Glucose 222 mg/dL (70-99); Potassium 4.3 mmol/L (3.3-5.1); Protein, Total 7.4 g/dL (5.9-8.4); Sodium Level 131 mmol/L (133-145)
--- NOTE | 2024-06-14 15:54 | ED.RN ---
Critical calcium of 14. Dr. Ortega notified
--- NOTE | 2024-06-14 15:58 | EDS_ITS ---
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 Elizabeth for abnormal labs ordered by cardiology yesterday and preparations for CT coronaries. Patient history of diabetes stage III chronic disease at baseline, sleep apnea. He has been worked up by his cartridge feeder due to his dyspnea had an echocardiogram in March EF was down from review records 45%. He had previous mild calcification of coronaries. Refer to cardiology Dr. Whyte he saw him in April, states had Farxiga added and his metoprolol increased to 200 mg. He was having lab work for plans for CT coronaries. He does have history of ARGUETA diagnosed a year ago but followed by Dr. Wall. He denies recent vomiting or diarrhea. He is making normal urine. Denies brown urine or any foamy urine. Denies any chest pains or palpitations. He reports lab work with elevated calcium of 14 and elevated creatinine. No cancer history reported 2 small lung nodules in the past. Reviewing records blood yesterday creatinine 3.36 GFR of 21 this is up from creatinine 1.6 GFR 47 April 23, 2024. Potassium was normal. Calcium was 14. Prior similar symptoms: No PFSH PFSH Medical History History of chicken pox Chronic kidney disease Pneumonia History of steroid therapy History of renal disease Fatty liver Former smoker BiPAP (biphasic positive airway pressure) dependence Sleep apnea History of edema Elevated liver enzymes COVID-19 Vitamin D deficiency Thyroid disease Hyperlipidemia Hypertension Diabetes Home Medications ?Medication ?Instructions ?Recorded ?Last Taken ?Type aspirin 81 mg chewable tablet 81 mg PO DAILY@0800 hear t health 08/11/16 04/15/18 History magnesium oxide 250 mg PO BID supplement 06/2904/15/18 History lancets 28 gauge (Easy Touch #100 ea 02/27/20 Unknown Rx Lancets) OneTouch Verio Flex meter #1 ea 06/29/20 Unknown Rx (blood-glucose meter) atorvastatin 20 mg tablet 20 mg PO QHS cholestoral 01/31 Unknown History BD Insulin Syringe 1 mL 25 gauge x #100 ea 05/24/21 Un known Rx 5/8 (insulin syringe-needle U-100) insulin syringe-needle U-100 0.5 #100 ea 06/02/22 Unkn own Rx mL 31 gauge x 5/16 (BD Insulin Syringe Ultra-Fine) OneTouch Verio test strips (blood #100 ea 08/25/22 Unk nown Rx sugar diagnostic) scopolamine base 1 mg over 3 days 1 patch transdermal Q72H PRN 01/26/23 Unknown History transdermal patch nausea and vomiting gabapentin 300 mg capsule 300 mg PO TID PRN neuropathy #90 04/10/23 Unknown Rx caps pen needle, diabetic 32 gauge x #100 ea 07/20/23 Unkno wn Rx 532 (BD Ultra-Fine Shani Pen Needle) insulin syringe-needle U-100 1 mL #100 ea 08/31/23 Unk nown Rx 31 gauge x 5/16 (BD Insulin Syringe Ultra-Fine) pen needle, diabetic 32 gauge x #50 ea 08/31/23 Unknow n Rx (BD Ultra-Fine Shani Pen Needle) ursodiol 300 mg capsule 300 mg PO BID #60 caps 01/03 Unknown Rx lisinopril 20 mg tablet 20 mg PO QDAY 01/15/24 Unkno wn History nebulizer tubing kits #1 ea 02/05/24 Unknown Rx neublizer machine #1 ea 02/05/24 Unknown Rx lancets 33 gauge (OneTouch Delica #100 ea 02/22/24 Unk nown Rx Plus Lancet) albuterol sulfate 2.5 mg/3 mL 2.5 mg (3 mL) inhalation Q4-6H PRN 03/15/24 Unknown Rx (0.083 %) solution for nebulization shortness of breat h or wheezing #180 mL levothyroxine 175 mcg tablet 175 mcg PO DAILY #30 tabs 04/02/24 Unknown Rx cholecalciferol (vitamin D3) 25 2,000 unit PO DAILY Unknown History mcg (1,000 unit) capsule (Vitamin D3) fluticasone furoate 200 1 inh inhalation Q24H #30 ea 04/30/24 Unknown Rx mcg/actuation blister powder for inhalation (Arnuity Ellipta) tirzepatide 10 mg/0.5 mL 10 mg subcut QWEEK 04/30/24 Unknown History subcutaneous pen injector (Vignesh) dapagliflozin propanediol 10 mg 10 mg PO QDAY #90 tabs 05/07/24 Unknown Rx tablet (Farxiga) metoprolol succinate 200 mg 200 mg PO QDAY #90 tabs Unknown Rx tablet,extended release 24 hr blood sugar diagnostic (Blood #100 ea 06/12/24 Unknown Rx Glucose Test strips) insulin regular hum U-500 conc 500 See Rx Instructions subcut BID 06/14/24 Unknown History unit/mL(3 mL) subcut pen (Humulin R U-500 (Conc) Insulin Kwikpen) Allergy/AdvReac Type Severity Reaction Status Date / Time wool AdvReac Severe Hives Verified 06/14/24 14:14 Family History Grandfather Family history of heart disease Family history of hypertension Hyperlipidemia Hypertension Diabetes Mother Family history of high cholesterol COPD (chronic obstructive pulmonary disease) Family history of hypertension in mother Grandfather Family history of high cholesterol Sleep apnea Aunt Family history of hypertension Sister Cancer Father , Diabetes Diabetes Hypertension Hyperlipidemia Surgical History History of lung biopsy History of esophagogastroduodenoscopy (EGD) History of surgery history of gallbladder sugery History of tonsillectomy and adenoidectomy Social History household members: family housing: house current occupational status: employed current occupational exposures/hazards: Yes Smoking Status: Former smoker Tobacco: How many years used: 2 alcohol intake: never substance use type: does not use caffeine: Yes Type: coffee Number of servings: 2 ROS ROS ED Constitutional Constitutional ED: Denies chills, fever(s) or sweats ENT ENT ED: Denies sore throat Cardiovascular Cardiovascular: Denies chest pain, leg edema, palpitations or racing heartbeat Respiratory/Chest Respiratory/Chest: Denies cough, dyspnea or dyspnea on exertion Gastrointestinal Gastrointestinal: Denies abdominal pain, diarrhea, nausea or vomiting Genitourinary Genitourinary ED: Denies dysuria, hematuria or urinary frequency Musculoskeletal Musculoskeletal: Denies back pain, extremity pain or neck pain Integumentary Denies rash or wounds Neurologic Neurologic: Denies headache(s), paresthesias or weakness EXAM Physical Exam Const Vital Signs: 06/14/24 14:15 06/14/24 14:38 Temperature 97.8 F Temperature Source Oral Pulse Rate 108 H Respiratory Rate 18 Respiratory Effort Normal Respiratory Pattern Normal Blood Pressure 130/85 H Blood Pressure Mean 100 Pulse Ox 98 Oxygen Delivery Method Room Air Positive well nourished and well developed General Appearance ED: well developed and NAD HEENT Reports moist mucous membranes normocephalic and atraumatic Eyes General Eye ED: Yes normal appearance of both eyes Neck full ROM Chest Wall Chest: Negative for tenderness Resp normal respiratory effort and normal air movement Effort and Inspection: symmetric chest movement; Negative for respiratory distress Cardio regular rate, regular rhythm and no murmurs Peripheral Pulses: pulses 2+ throughout GI normal to inspection, nondistended, normoactive bowel sounds and non-tender Palpation: Negative for guarding or rebound tenderness present Extremity normal to inspection General Extremety ED: Negative for edema or tenderness General Extremity: Negative for edema Neuro oriented x3 and no sensory deficits noted Sensorium / Orientation: awake and alert Skin no rashes or lesions noted and no wounds MDM MDM MDM Narrative Medical decision making narrative: Interventions / MDM: Differential diagnosis: CLARENCE, hypercalcemia, history of cardiomyopathy, history of Argueta, history of diabetes Diagnosis considered but do not suspect: DKA however gap is normal. My EKG interpretation: Sinus rate of 93, no ST or T wave changes. No peaked T waves or widened QRS. Imaging independently reviewed and interpreted by myself: N/A External documents reviewed: Echocardiogram April 08, 2024 EF of 45% stage I diastolic dysfunction. Cardiology note fibber [address] angiogram coronaries along with MRI cardiac. Labs from yesterday in the system with creatinine 3.36 GFR 21 with calcium 14. Test considered but not ordered:N/A ED course: Patient with CLARENCE hypercalcemia outpatient yesterday recheck labs EKG sinus rhythm with no hyperkalemic changes. Labs creatinine 3.3 GFR 22 calcium 14, up from less than 2 months ago. Unclear reasons. Cardiomyopathy EF 45% in March we will start gentle fluids 500 cc bolus at night for hypercalcemia and his CLARENCE. I discussed with hospitalist Dr. Marroquin for admission. Re-evaluation: stable Disposition discussed with patient/family/significant other: Patient Case discussed with consulting clinician: Hospitalist This note was generated with [employer] dictation software. It may contain incorrect words, spelling, and punctuation that were not noted in checking the note before signing. He was fine Lab Data Attestation: I reviewed the patient's lab results. Labs: Laboratory Results - last 24 hr 06/14/24 14:37 WBC 4.2 L RBC 4.30 L Hgb 14.2 Hct 39.7 L MCV 92.3 MCH 33.0 H MCHC 35.8 RDW Std Deviation 55.8 H RDW Coeff of Syed 16.7 H Plt Count 128 L MPV 9.1 Immature Gran % (Auto) 0.200 Neut % (Auto) 67.0 Lymph % (Auto) 16.6 L Berrien % (Auto) 11.1 H Eos % (Auto) 4.6 Baso % (Auto) 0.5 Absolute Neuts (auto) 2.8 Absolute Lymphs (auto) 0.69 L Nucleated RBC % 0 Sodium 131 L Potassium 4.3 Chloride 99 Carbon Dioxide 18.6 L Anion Gap 13 BUN 50 H Creatinine 3.30 H Estim Creat Clear Calc 50.83 Est GFR (MDRD) Non-Af 22 L BUN/Creatinine Ratio 15.3 Glucose 222 H Calcium 14.0 H* Total Bilirubin 0.70 Direct Bilirubin 0.34 H AST 59 H ALT 41 Alkaline Phosphatase 172 H Total Protein 7.4 Albumin 4.1 Globulin 3.3 Discharge Plan Triage Chief Complaint: Abn Labs ED Provider: Mac Ortega Dx/Rx/DC Orders Clinical Impression: CLARENCE (acute kidney injury), Hypercalcemia, ARGUETA (nonalcoholic steatohepatitis), Hyperglycemia due to diabetes mellitus Prescriptions: No Action (DME) lancets [Easy Touch Lancets] 28 gauge misc See Rx Instructions .ROUTE .MEDSUPPLY Qty: 100 6RF Rx Instructions: 3 times daily atorvastatin 20 mg tablet 20 mg PO QHS Patient Comments: TAKE 1 TABLET BY MOUTH AT BEDTIME (DME) BD Insulin Syringe 1 mL 25 gauge x 5/8 syringe See Rx Instructions .ROUTE .MEDSUPPLY Qty: 100 6RF Rx Instructions: bid gabapentin 300 mg capsule 300 mg PO TID PRN (Reason: neuropathy) Qty: 90 0RF scopolamine base 1 mg over 3 days patch 3 day 1 patch transdermal Q72H PRN (Reason: nausea and vomiting) (DME) nebulizer tubing kits See Rx Instructions .ROUTE .MEDSUPPLY Qty: 1 0RF Rx Instructions: As directed (DME) neublizer machine See Rx Instructions .ROUTE .MEDSUPPLY Qty: 1 0RF Rx Instructions: As directed lisinopril 20 mg tablet 20 mg PO QDAY Mounjaro 10 mg/0.5 mL pen injector 10 mg subcut QWEEK Arnuity Ellipta 200 mcg/actuation blister with device 1 inh inhalation Q24H Qty: 30 5RF metoprolol succinate 200 mg tablet extended release 24 hr 200 mg PO QDAY Qty: 90 3RF dapagliflozin propanediol [Farxiga] 10 mg tablet 10 mg PO QDAY Qty: 90 3RF aspirin 81 MG tablet,chewable 81 mg PO DAILY@0800 magnesium oxide 250 MG tablet 250 mg PO BID cholecalciferol (vitamin D3) [Vitamin D3] 25 mcg (1,000 unit) capsule 2,000 unit PO DAILY Humulin R U-500 (Conc) Kwikpen 500 unit/mL (3 mL) insulin pen See Rx Instructions subcut BID Rx Instructions: 65 am 180 pm subcutaneously twice a day; (DME) blood-glucose meter [OneTouch Verio Flex meter] Misc See Rx Instructions .ROUTE .MEDSUPPLY Qty: 1 0RF Rx Instructions: As directed (DME) insulin syringe-needle U-100 [BD Insulin Syringe Ultra-Fine] 0.5 mL 31 gauge x 5/16 syringe See Rx Instructions .ROUTE .MEDSUPPLY Qty: 100 6RF Rx Instructions: twice daily (DME) OneTouch Verio test strips Strip See Rx Instructions .ROUTE .MEDSUPPLY Qty: 100 8RF Rx Instructions: tid (DME) pen needle, diabetic [BD Ultra-Fine Shani Pen Needle] 32 gauge x 5/32 needle See Rx Instructions .Route Qty: 100 5RF Rx Instructions: BID (DME) insulin syringe-needle U-100 [BD Insulin Syringe Ultra-Fine] 1 mL 31 gauge x 5/16 syringe See Rx Instructions .Route Qty: 100 4RF Rx Instructions: As directed (DME) pen needle, diabetic [BD Ultra-Fine Shani Pen Needle] 32 gauge x 5/32 needle See Rx Instructions .ROUTE .MEDSUPPLY Qty: 50 5RF Rx Instructions: As directed ursodiol 300 mg capsule 300 mg PO BID Qty: 60 9RF (DME) lancets [OneTouch Delica Plus Lancet] 33 gauge misc See Rx Instructions .ROUTE .MEDSUPPLY Qty: 100 8RF Rx Instructions: tid albuterol sulfate 2.5 mg /3 mL (0.083 %) solution for nebulization 2.5 mg inhalation Q4-6H PRN (Reason: shortness of breath or wheezing) Qty: 180 3RF levothyroxine 175 mcg tablet 175 mcg PO DAILY Qty: 30 5RF (DME) Blood Glucose Test Strip See Rx Instructions .ROUTE .MEDSUPPLY Qty: 100 6RF Rx Instructions: test 3 times daily Primary Care Provider: Jordana Baez Referrals: Jordana Baez, H[employer]IC[employer] FARM MANAGER-[employer] [Primary Care Provider] - Print Language: [place] Disposition Disposition: Acute Care Hospital [facility]
--- NOTE | 2024-06-14 16:03 | PCM.HP.STD ---
HPI - General General Date of Admission: 06/14/24 Date of Service: 06/14/24 Chief Complaint: abnormal labs HPI Narrative CHRISTA SILVERMAN, is a 49 M with a PMH as outlined including CKD, PINEDA and being worked up for new onset cardiomyopathy who presents via the ED on 06/14/2024 o/a of abnormal labs. He was sent in by his bureau director due to increase in his creatinine. He says he does have a history of underlying CKD was also recently diagnosed with nonalcoholic steatohepatitis and follows up with gastroenterology. He had labs done today which showed creatinine of 3.3 and calcium was also elevated at 14. He denied any nausea, vomiting or diarrhea. He denied any diuretic use and was recently started on Farxiga by his manager risk on account of cardiomyopathy. He is due to have an echo on outpatient basis to further evaluate the cardiomyopathy. He denied any fever or chills, chest pain, palpitations, dizziness or any other symptoms. Review of systems otherwise negative. Vitals in the ED were blood pressure 130/88, pulse rate of 108, respiratory rate of 18 and temperature of 91.8 Fahrenheit. He was saturating at 98% on room air. CBC showed hemoglobin of 14.2 with WBC of 4.2 and platelets of 128. Chemistry showed sodium of 131 with potassium of 4.3, bicarb of 18.6 and anion gap of 13. Creatinine was 3.3 and calcium was 14. Total bilirubin was 0.7. AST was 59 and ALT was 41 with ALP of 172. He has been admitted to manage for CLARENCE on CKD and hypercalcemia of unclear etiology. [facility] Medical History History of chicken pox Chronic kidney disease Pneumonia History of steroid therapy History of renal disease Fatty liver Former smoker BiPAP (biphasic positive airway pressure) dependence Sleep apnea History of edema Elevated liver enzymes COVID-19 Vitamin D deficiency Thyroid disease Hyperlipidemia Hypertension Diabetes Home Medications ?Medication ?Instructions ?Recorded ?Last Taken ?Type aspirin 81 mg chewable tablet 81 mg PO DAILY@0800 heart health 08/11/16 04/15/18 History magnesium oxide 250 mg PO BID supplement 04/16/18 04/15/18 History lancets 28 gauge (Easy Touch #100 ea 02/27/20 Unknown Rx Lancets) OneTouch Verio Flex meter #1 ea 06/29/20 Unknown Rx (blood-glucose meter) atorvastatin 20 mg tablet 20 mg PO QHS cholestoral 12/21/20 Unknown History BD Insulin Syringe 1 mL 25 gauge x #100 ea 05/24/21 Unknown Rx 5/8 (insulin syringe-needle U-100) insulin syringe-needle U-100 0.5 #100 ea 06/02/22 Unknown Rx mL 31 gauge x 5/16 (BD Insulin Syringe Ultra-Fine) OneTouch Verio test strips (blood #100 ea 08/25/22 Unknown Rx sugar diagnostic) scopolamine base 1 mg over 3 days 1 patch transdermal Q72H PRN 01/26/23 Unknown History transdermal patch nausea and vomiting gabapentin 300 mg capsule 300 mg PO TID PRN neuropathy #90 04/10/23 Unknown Rx caps pen needle, diabetic 32 gauge x #100 ea 07/20/23 Unknown Rx 5/32 (BD Ultra-Fine Shani Pen Needle) insulin syringe-needle U-100 1 mL #100 ea 08/31/23 Unknown Rx 31 gauge x 5/16 (BD Insulin Syringe Ultra-Fine) pen needle, diabetic 32 gauge x #50 ea 08/31/23 Unknown Rx 5/32 (BD Ultra-Fine Shani Pen Needle) ursodiol 300 mg capsule 300 mg PO BID #60 caps 01/04/24 Unknown Rx lisinopril 20 mg tablet 20 mg PO QDAY 01/15/24 Unknown History nebulizer tubing kits #1 ea 02/05/24 Unknown Rx neublizer machine #1 ea 02/05/24 Unknown Rx lancets 33 gauge (OneTouch Delica #100 ea 02/22/24 Unknown Rx Plus Lancet) albuterol sulfate 2.5 mg/3 mL 2.5 mg (3 mL) inhalation Q4-6H PRN 03/15/24 Unknown Rx (0.083 %) solution for nebulization shortness of breath or wheezing #180 mL levothyroxine 175 mcg tablet 175 mcg PO DAILY #30 tabs 04/02/24 Unknown Rx cholecalciferol (vitamin D3) 25 2,000 unit PO DAILY 04/30/24 Unknown History mcg (1,000 unit) capsule (Vitamin D3) fluticasone furoate 200 1 inh inhalation Q24H #30 ea 04/30/24 Unknown Rx mcg/actuation blister powder for inhalation (Arnuity Ellipta) tirzepatide 10 mg/0.5 mL 10 mg subcut QWEEK 04/30/24 Unknown History subcutaneous pen injector (Vignesh) dapagliflozin propanediol 10 mg 10 mg PO QDAY #90 tabs 05/07/24 Unknown Rx tablet (Farxiga) metoprolol succinate 200 mg 200 mg PO QDAY #90 tabs 05/07/24 Unknown Rx tablet,extended release 24 hr blood sugar diagnostic (Blood #100 ea 06/12/24 Unknown Rx Glucose Test strips) insulin regular hum U-500 conc 500 See Rx Instructions subcut BID 06/14/24 Unknown History unit/mL(3 mL) subcut pen (Humulin R U-500 (Conc) Insulin Kwikpen) Allergy/AdvReac Type Severity Reaction Status Date / Time wool AdvReac Severe Hives Verified 06/14/24 14:14 Family History Grandfather Family history of heart disease Family history of hypertension Hyperlipidemia Hypertension Diabetes Mother Family history of high cholesterol COPD (chronic obstructive pulmonary disease) Family history of hypertension in mother Grandfather Family history of high cholesterol Sleep apnea Aunt Family history of hypertension Sister Cancer Father , Diabetes Diabetes Hypertension Hyperlipidemia Surgical History History of lung biopsy History of esophagogastroduodenoscopy (EGD) History of surgery history of gallbladder sugery History of tonsillectomy and adenoidectomy Social History household members: family housing: house current occupational status: employed current occupational exposures/hazards: Yes Smoking Status: Former smoker Tobacco: How many years used: 2 alcohol intake: never substance use type: does not use caffeine: Yes Type: coffee Number of servings: 2 ROS Constitutional Constitutional: Denies anorexia, chills, fatigue, fever(s), malaise or weakness Eyes Eyes: Denies change in vision ENT HEENT: Denies dysphagia, headache(s) or sore throat Cardiovascular Cardiovascular: Denies chest pain, dyspnea on exertion, edema, lightheadedness, orthopnea, palpitations, paroxysmal nocturnal dyspnea, rapid heart rate or syncope Respiratory/Chest Respiratory/Chest: Denies cough, dyspnea or shortness of breath at rest Gastrointestinal Gastrointestinal: Denies constipation, nausea or vomiting Genitourinary Genitourinary: Denies burning urination or dysuria Neurologic Neurologic: Denies confusion, dizziness, focal weakness, headache(s), seizure-like activity, seizures or syncope Psychiatric Psychiatric: Denies anxiety or depression Endocrine Endocrinology: Denies change in body appearance Vital Signs Vital Signs Vital Signs: 06/14/24 14:15 06/14/24 14:38 Temperature 97.8 F Temperature Source Oral Pulse Rate 108 H Respiratory Rate 18 Respiratory Effort Normal Respiratory Pattern Normal Blood Pressure 130/85 H Blood Pressure Mean 100 Pulse Ox 98 Oxygen Delivery Method Room Air Weight Weight: 498 lb 3.915 oz Body Mass Index (BMI) 71.4 Physical Exam Const alert, oriented x3 and no apparent distress Constitutional Narrative: class III obesity, with BMI of 71.5 General Appearance: cooperative HEENT normocephalic, head/scalp atraumatic, hearing grossly normal bilaterally and moist oral mucous membranes Mouth: oral and palatal mucosa normal Eyes PERRL, EOMs intact bilaterally and conjunctivae normal Neck no lymphadenopathy and supple Resp normal respiratory effort, no retractions, no use of accessory muscles and clear to auscultation bilaterally GI normal to inspection, nondistended, normoactive bowel sounds, soft to palpation, non-tender and non-distended Extremity normal to inspection, full ROM and no clubbing, cyanosis or edema Neuro oriented x3, CN's II-XII intact bilaterally, moves all extremities and no focal motor deficits Sensorium / Orientation: awake and alert Motor Exam: strength 5/5 throughout Psych affect normal Results Lab / Micro Data 06/14/24 14:37 06/14/24 14:37 Labs: Laboratory Results - last 24 hr 06/14/24 14:37: WBC 4.2 L, RBC 4.30 L, Hgb 14.2, Hct 39.7 L, MCV 92.3, MCH 33.0 H, MCHC 35.8, RDW Std Deviation 55.8 H, RDW Coeff of Syed 16.7 H, Plt Count 128 L, MPV 9.1, Immature Gran % (Auto) 0.200, Neut % (Auto) 67.0, Lymph % (Auto) 16.6 L, [place] % (Auto) 11.1 H, Eos % (Auto) 4.6, Baso % (Auto) 0.5, Absolute Neuts (auto) 2.8, Absolute Lymphs (auto) 0.69 L, Nucleated RBC % 0, Sodium 131 L, Potassium 4.3, Chloride 99, Carbon Dioxide 18.6 L, Anion Gap 13, BUN 50 H, Creatinine 3.30 H, Estim Creat Clear Calc 50.83, Est GFR (MDRD) Non-Af 22 L, BUN/Creatinine Ratio 15.3, Glucose 222 H, Calcium 14.0 H*, Total Bilirubin 0.70, Direct Bilirubin 0.34 H, AST 59 H, ALT 41, Alkaline Phosphatase 172 H, Total Protein 7.4, Albumin 4.1, Globulin 3.3 Assessment & Plan Assessment/Plan (1) CLARENCE (acute kidney injury): (2) Hypercalcemia: PLAN: Plan #CLARENCE on CKD with hypercalcemia patient admitted o.a of abnormal labs. he had come to have echo for cardiomyopathy. He had labs done which showed elevated Cr of 3.3. Baseline Cr is ~ 1.6 says he has not had any problems with urination, diarrhea, nausea or vomiting. consult nephrology IV normal saline 150cc/hr x [address] of the abdomen/pelvis to rule out any obstructive pathology. #Hypercalcemia calcium is 14. Etiology is also not clear is asymptomatic hydrate aggresively with IVF give a dose of zolendronic acid x 1 will not give lasix due to CLARENCE on CKD #Cardiomyopathy patient had been apparently complaining of shortness of breath and so followed up with cardiology. Has known EF of 45% with stage 1 diastolic dysfunction and mild LV concentric hypertrophy to follow up with cardiology on outpatient basis # Type 2 diabetes mellitus Hold Farxiga. This was recently started. On Lantus. Insulin sliding scale. Checks ACH S. on mounjaro weekly #Hypertension: hold lisinopril due to CLARENCE on CKD. #Hypothyroidism: on synthroid Class III obesity: BMI is 71.5. Complicates acute care, expected recovery and prognosis DVT prophylaxis: lovenox, renally dosed CODE STATUS Patient counseled extensively about different types of CODE STATUS including full code, DNR CCA and DNR CCA. Patient elects to be full code. Total [id number] time 16 minutes. Charges/Coding Visit Charges Inpatient E&M: 49502 Init Hosp L3 Procedures Hospitalists Procedures: 77138 Advncd Care Plan 30 Min
[2024-06-14] MEDS: 0.9% Normal Saline (500mL Bag) 500 ML 999 ML IV (16:11)
[2024-06-14 16:14] VITALS: BP 123/92; PULSE 95; RESP 26; O2SAT 97
[2024-06-14 16:43] VITALS: BP 116/71; PULSE 98; RESP 20; TEMP 36.8; O2SAT 97
--- NOTE | 2024-06-14 16:45 | CT_ITS ---
PROCEDURE: ABDOMEN/PELVIS WITHOUT CONT 06/14/2024 REASON FOR EXAM: ACUTE ON CHRONIC KIDNEY DISEASE TECHNIQUE: Abdomen and pelvis CT without intravenous contrast. Noncontrast technique limits evaluation of the abdominal and pelvic viscera. Coronal and Sagittal reconstruction series were provided. One or more dose reduction techniques were used (e.g., Automated exposure control, adjustment of the mA and/or kV according to patient size, use of iterative reconstruction technique). PATIENT PREPARATION: Per protocol ORAL CONTRAST TYPE: None. COMPARISON: None available FINDINGS: Patchy ill-defined mainly perihilar appearing ground-glass opacities at the bilateral visualized lung bases may be inflammatory or infectious or less likely pulmonary edema, clinically correlate. No pleural effusion seen. The liver, adrenal glands, kidneys and pancreas appear within limits on noncontrast imaging. Incidental note of a 3.3 cm left lower pole cortical partially exophytic renal cyst. The kidneys appear within limits for size on noncontrast imaging. No renal stones or hydronephrosis. Status post cholecystectomy. Splenomegaly 17.4 cm. Abdominal aorta appears within limits on noncontrast imaging. No adenopathy. No bowel dilation or free air. Normal caliber appendix without secondary signs. The bladder appears within limits. No evidence of ureteral or bladder stone. No free fluid. Prostate appears within limits. Lower lumbar facet degenerative changes with appearance of left-sided foraminal narrowing at L5-S1. Visualized osseous structures otherwise appear within limits. CT/Abdomen/Pelvis without Cont IMPRESSION: Patchy ill-defined mainly perihilar appearing ground-glass opacities at the shira ateral visualized lung bases may be inflammatory or infectious or less likely pulmonary edema, clinically correlate. No pleural effusion seen. Splenomegaly 17.4 cm. Reading Location: [id number]
[2024-06-14 17:41] VITALS: BMI 71.3
[2024-06-14 18:00] VITALS: BP 133/80; PULSE 98; RESP 18; TEMP 36.7; O2SAT 100
[2024-06-14 18:10] LABS: Bacteria 0 SEEN /hpf (None Seen); Mucous, Urine 0 SEEN /hpf (<or=2+); White Blood Cells 0 SEEN /hpf (0-5)
[2024-06-14 18:14] LABS: Color, Urine Yellow (Yellow); Glucose, Dipstick 1000 mg/dl (Normal); Ketone-Dipstick Negative (Negative); Leukocyte Esterase-Dipstick Negative /ul (Negative); Nitrite-Dipstick Negative (Negative); Occult Blood-Urine 25 /ul (Negative); Protein-Dipstick 30 mg/dl (Negative); Urine Bilirubin Dipstick Negative (Negative); Urine Clarity Clear (Clear); Urine Urobilinogen Normal (Normal)
[2024-06-14] MEDS: 0.9% Normal Saline (1000mL) 1,000 ML 150 ML IV (18:25)
[2024-06-14 18:29] LABS: Amorphous Sediment 1+ URATE; Red Blood Cells-Urine 0-5 SEEN /hpf (0-5); Squamous Epithelial Cells - UA 0-5 SEEN /hpf (0-5)
[2024-06-14] MEDS: Insulin Lispro 100 UNIT/ML INSULN.PEN SC ×2 (18:40→21:30)
[2024-06-14 18:48] LABS: Bedside Glucose 220 mg/dL (74-106)
[2024-06-14 19:36] VITALS: BP 102/51; PULSE 97; RESP 16; TEMP 36.9; O2SAT 98
[2024-06-14] MEDS: NORMAL SALINE 0.9% IV (20:12)
[2024-06-14] MEDS: PAMIDRONATE DISODIUM IV (20:12)
[2024-06-14] MEDS: Atorvastatin Calcium 20 MG Tablet PO (21:30)
[2024-06-14] MEDS: Magnesium Chloride 64 MG Delay Rel.Tablet PO (21:30)
[2024-06-14] MEDS: Ursodiol 250 MG Tablet PO (21:40)
[2024-06-14 21:52] LABS: Bedside Glucose 219 mg/dL (74-106)
[2024-06-14 23:37] VITALS: PULSE 99
[2024-06-15] VITALS (11 sets, daily range): BP systolic 107–125; BP diastolic 51–67; PULSE 81–111; RESP 16–18; TEMP 36.5–36.7; O2SAT 95–100
[2024-06-15] MEDS: 0.9% Normal Saline (1000mL) 1,000 ML 150 ML IV (03:47)
[2024-06-15 06:05] LABS: Absolute Lymphocyte Count 0.81 X10^3/uL (0.83-4.51); Basophil# 0.02 X10^3/uL; Basophil% 0.4 % (0-1); Eosinophil# 0.17 X10^3/uL; Eosinophils% 3.8 % (0-5); Hematocrit 37.1 % (40-54); Hemoglobin 12.9 g/dL (13.0-16.5); Lymphocyte # 0.81 X10^3/ul (0.83-4.51); Lymphocyte % 18.1 % (19-41); Mean Corp Hgb Conc 34.8 g/dL (32-36); Mean Corpuscular Hgb 32.7 pg (27.0-32.0); Mean Corpuscular Volume 94.2 fL (80-94); Mean Platelet Vol. 9.9 fl (6.2-12.0); Monocyte# 0.44 X10^3/uL; Monocyte% 9.8 % (0-10); NRBC Flagged by Analyzer 0 % (0-5); Neutrophil # 3.01 X10^3/uL (2.7-7.7); Neutrophil % 67.5 % (47-70); Platelet Count 125 K/mm3 (150-450); RBC Distribution Width CV 16.7 % (11.6-14.6); RBC Distribution Width SD 57.1 fl (35.1-43.9); Red Blood Count 3.94 M/mm3 (4.6-6.2); White Blood Count 4.5 K/mm3 (4.4-11.0)
[2024-06-15] MEDS: Insulin Lispro 100 UNIT/ML INSULN.PEN SC ×4 (06:25→20:59)
[2024-06-15] MEDS: Levothyroxine 175 MCG Tablet PO (06:25)
[2024-06-15 06:52] LABS: Anion Gap 13 (5-15); BUN 44 mg/dL (4-19); BUN/Creat Ratio 14.8 RATIO (10-20); Calcium,Total 12.4 mg/dL (7.6-11.0); Carbon Dioxide 17.7 mmol/L (21.0-32.0); Chloride 102 mmol/L (98-108); Creatinine, Serum 2.97 mg/dL (0.70-1.20); EST Glomerular Filtration Rate 25 (>60); Estimated Creatinine Clearance 56.48 ml/min (50-250); Glucose 204 mg/dL (70-99); Potassium 4.4 mmol/L (3.3-5.1); Sodium Level 132 mmol/L (133-145); Vitamin D,25 Hydroxy 21.5 ng/mL (30-100)
[2024-06-15 06:54] LABS: Bedside Glucose 208 mg/dL (74-106)
[2024-06-15] MEDS: Budesonide Respules 0.5 MG/2 ML AMPUL.NEB. INHALATION ×2 (06:54→19:05)
[2024-06-15] MEDS: Albuterol 2.5 MG/3 ML VIAL.NEB. INHALATION (06:54)
--- NOTE | 2024-06-15 07:37 | PN.HOSP_ITS ---
Reason for Visit Reason for Visit: Diagnoses Hypercalcemia (06/14/24) Acute kidney failure, unspecified (06/14/24) Subjective Subjective Patient is a 49-year-old gentleman who was admitted with worsening kidney function from prior to undergoing CT of his coronaries. Objective Data Objective Data Vital Signs: Vital Signs Temp Pulse Resp BP Pulse Ox O2 Del Method 97.7 F L 93 16 114/67 95 Room Air 06/15/24 06:28 06/15/24 06:28 06/15/24 06:28 06/15/24 06:28 06/15/24 06:28 06/15/24 06:28 Oxygen Delivery Method Room Air Weight: 226 kg Body Mass Index (BMI) 71.3 Intake & Output: Intake and Output for Last 24 Hours 06/13/24 06/14/24 06/15/24 23:59 23:59 23:59 Intake Total 1500 / 1500 1600 / 1600 Output Total 600 / 1600 1725 / 1725 Balance 900 / -100 -125 / -125 Lab / Micro Data 06/15/24 05:09 06/15/24 05:09 Labs: Laboratory Results - last 24 hr 06/14/24 14:37: WBC 4.2 L, RBC 4.30 L, Hgb 14.2, Hct 39.7 L, MCV 92.3, MCH 33.0 H, MCHC 35.8, RDW Std Deviation 55.8 H, RDW Coeff of Syed 16.7 H, Plt Count 128 L , MPV 9.1, Immature Gran % (Auto) 0.200, Neut % (Auto) 67.0, Lymph % (Auto) 16.6 L, [place] % (Auto) 11.1 H, Eos % (Auto) 4.6, Baso % (Auto) 0.5, Absolute Neuts (auto) 2.8, Absolute Lymphs (auto) 0.69 L, Nucleated RBC % 0, Sodium 131 L, Potassium 4.3, Chloride 99, Carbon Dioxide 18.6 L, Anion Gap 13, BUN 50 H, C reatinine 3.30 H, Estim Creat Clear Calc 50.83, Est GFR (MDRD) Non-Af 22 L, BUN/Creatinine Ratio 15.3, Glucose 222 H, Calcium 14.0 H*, Total Bilirubin 0.70, Direct Bilirubin 0.34 H, AST 59 H, ALT 41, Alkaline Phosphatase 172 H, Total Protein 7.4, Albumin 4.1, Globulin 3.3 06/14/24 17:45: Urine Color Yellow, Urine Clarity Clear, Urine pH 6.0, Ur Specific [place] 1.020, Urine Protein 30 H, Urine Glucose (UA) 1000 H, Urine Ketones Negative, Urine Occult Blood 25 H, Urine Nitrite Negative, Urine Bilirubin Negative, Urine Urobilinogen Normal, Ur Leukocyte Esterase Negative, Urine RBC 0-5 SEEN, Urine WBC 0 SEEN, Ur Squamous Epith Cells 0-5 SEEN, Amorphous Sediment 1+ URATE, Urine Bacteria 0 SEEN, Urine Mucus 0 SEEN 06/14/24 17:54: POC Glucose 220 H 06/14/24 21:27: POC Glucose 219 H 06/15/24 05:09: WBC 4.5, RBC 3.94 L, Hgb 12.9 L, Hct 37.1 L, MCV 94.2 H, MCH 32.7 H, MCHC 34.8, RDW Std Deviation 57.1 H, RDW Coeff of Syed 16.7 H, Plt Count 125 L, MPV 9.9, Immature Gran % (Auto) 0.400, Neut % (Auto) 67.5, Lymph % (Auto) 18.1 L, [place] % (Auto) 9.8, Eos % (Auto) 3.8, Baso % (Auto) 0.4, Absolute Neuts (auto) 3.0, Absolute Lymphs (auto) 0.81 L, Nucleated RBC % 0, Sodium 132 L, Potassium 4.4, Chloride 102, Carbon Dioxide 17.7 L, Anion Gap 13, BUN 44 H, C reatinine 2.97 H, Estim Creat Clear Calc 56.48, Est GFR (MDRD) Non-Af 25 L, BUN/Creatinine Ratio 14.8, Glucose 204 H, Calcium 12.4 H, Vitamin D 25-Hydroxy 21.5 L 06/15/24 06:23: POC Glucose 208 H Radiography Diagnostic Testing: Radiology Impression Abdomen/Pelvis CT 06/14/24 16:45 IMPRESSION: Patchy ill-defined mainly perihilar appearing ground-glass opacities at the bilateral visualized lung bases may be inflammatory or infectious or less likely pulmonary edema, clinically correlate. No pleural effusion seen. Splenomegaly 17.4 cm. Reading Location: [facility] Physical Exam Narrative GENERAL: cooperative HEENT: Atraumatic; normocephalic EYES; Anicteric, Normal Conjunctiva NECK; supple, normal thyroid, RESPIRATORY: Diminished to auscultation CARDIOVASCULAR: Regular S1 S2, GI: soft, normoactive bowel sounds, : No Renal angle tenderness; EXTREMITIES: No edema, no clubbing, MUSCULOSKELETAL: no muscle wasting NEURO: Awake; no lateralizing signs. SKIN: No Rash PSYCH; Flat affect Assessment & Plan Assessment/Plan (1) CLARENCE (acute kidney injury): (2) Hypercalcemia: PLAN: Plan Patient is a 49-year-old gentleman who was admitted with worsening kidney function from prior to undergoing CT of his coronaries. 1. Acute kidney injury ? Superimposed on chronic kidney disease stage III baseline creatinine 1.6, creatinine on admission was 3.3. Patient admitted to regular nursing floor started on IV fluids.CT of the abdomen and pelvis obtained as part of patient management did not reveal any renal stones no hydronephrosis. Consult was placed to nephrology as outpatient 2. Hypercalcemia ? Patient did receive IV fluid resuscitation as well as pamidronate. Ordered urine protein and serum electrophoresis as part of patient's management 3. Cardiomyopathy ? Recent echo demonstrated EF of 45% with mild LV concentric hypertrophy 4. Class III obesity with BMI of 71.3 ? Complicating care; Weight loss advised. 5. Hypothyroidism ? Patient is on levothyroxine home dose continued 6. Diabetes mellitus type II -patient's oral hypoglycemics held. Placed on long acting insulin, Accu-Cheks a.c. and at bedtime and covered with sliding scale insulin 7. Hypertension ? Blood pressure controlled, home medications continued with dose adjustment as needed 8. DVT prophylaxis ? SC heparin Time spent in the patient's overall evaluation,decision-making process, review of diagnostic data, adjustment of management, discussion with other providers, nursing nursing and ancillary staff involved in patient's care documentation, 52 Minutes Charges/Coding Visit Charges Inpatient E&M: 36959 [facility] Hosp L3
[2024-06-15] MEDS: Insulin U-500 UNITS/ML PEN 65 UNITS SC (08:45)
[2024-06-15] MEDS: Metoprolol(XL)Succ 200 MG Tablet PO (08:46)
[2024-06-15] MEDS: Magnesium Chloride 64 MG Delay Rel.Tablet PO ×2 (08:46→21:01)
[2024-06-15] MEDS: Cholecalciferol (VIT D3) 25 MCG TABLET (1,000 UNITS) 50 MCG PO (08:46)
[2024-06-15] MEDS: Ursodiol 250 MG Tablet PO ×2 (08:46→21:01)
[2024-06-15] MEDS: Aspirin 81 MG TAB.CHEW PO (08:46)
[2024-06-15 12:03] LABS: Bedside Glucose 237 mg/dL (74-106)
--- NOTE | 2024-06-15 12:20 | CASEMGMT ---
RN CM Face to Face with patient for initial transition planning/care coordination assessment. RN CM introduced self and role at [facility]. Patient lying in bed, alert and oriented. Patient willing to participate in assessment and is able to answer all questions appropriately. Care providers, pharmacy, and demographics verified. Strata: 2 PCP: [facility] Specialists: Pato, cardilogist; Duke, GI; Cy, semiautomatic stitcher operator; Claudia Pulmonology; Jesus, salad bar clerk; Vaibhav, button sewing machine operator Preferred Pharmacy: [facility] Insurance: [employer] Prescription Benefit: yes Living Will/HPOA: none, interested in completing, SW notified LNOK: mother Living Arrangements: Patient lives with mother in a single story duplex with 3 steps and railing to enter the home. Patient states he is independent at home. Transportation: mother DME/HHC: Patient has raised toilet, bipap, nebulizer, pulse ox, glucometer, and home oxygen through [employer] with portability as needed with exertion, normally wears 2lpm. Patient wishes to discharge home, denies need for home health at this time. Patient states he has no further needs or concerns at this time. CM to follow for discharge planning needs that may arise. Disposition Plan: Patient to discharge home with family support and follow-up plans in place. Janiya VENTURA, RN, CM
--- NOTE | 2024-06-15 13:42 | CON.PCM.RE_ITS ---
Assessment & Plan Assessment/Plan (1) CLARENCE (acute kidney injury): PLAN: CKD stage IIIa, baseline creatinine is around 1.5 or so. Acute renal failure likely related to hypercalcemia. Better today (2) Hypercalcemia: PLAN: Hypercalcemia. This is new onset. He denies taking any excessive calcium supplements. Of note, he had a similar episode few years ago. At that time we did extensive workup and was negative. PTH was suppressed. There was one lab with 1, 25 hydroxy vitamin D which was high but subsequently it was okay. Serum protein electrophoresis negative. Reviewed his chart again for the last 4 to 5 years. 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 Looking back he also had a lung biopsy with noncaseating granulomatous. Histoplasma negative, TB screen negative. I think he has sarcoidosis. I sent a vitamin D 2 levels. I think he will benefit from a short prednisone burst however he has significant diabetes, will have to check with endocrinology first. Will treat with other medications for now. Discussed with hospitalist, 1 dose of pamidronate has been given. Maintain IV fluids. On Monday we will check with pulmonology, endocrinology about plans. Will need to see pulmonology for sarcoidosis evaluation. HPI Consult Data Date of Consult: 06/15/24 HPI Narrative Reason for Consultation: Hypercalcemia HPI Narrative: CHRISTA SILVERMAN, is a 49 M who presents to the hospital with acute renal failure and hypercalcemia. Nephrology on consultation in view of the same. He is well- known to me. History of stage III CKD. Baseline creatinine around 1.5 or so. History of diabetes, follows with endocrinology. Morbid obesity. he was supposed to have a contrast study and had routine blood work drawn, this showed significantly elevated calcium and creatinine. Those labs were forwarded to the nephrology, we referred him to the ER. He has been asymptomatic. Denies any urinary complaints. Somewhat low appetite for the last few days. He says only new medication is Farxiga for about a month or so. FOR[facility], LATER [facility] Medical History History of chicken pox Chronic kidney disease Pneumonia History of steroid therapy History of renal disease Fatty liver Former smoker BiPAP (biphasic positive airway pressure) dependence Sleep apnea History of edema Elevated liver enzymes COVID-19 Vitamin D deficiency Thyroid disease Hyperlipidemia Hypertension Diabetes Home Medications ?Medication ?Instructions ?Recorded ?Last Taken ?Type aspirin 81 mg chewable tablet 81 mg PO DAILY@0800 hear [facility] 08/11/16 04/15/18 History magnesium oxide 250 mg PO BID supplement 06/2904/15/18 History lancets 28 gauge (Easy Touch #100 ea 02/27/20 Unknown Rx Lancets) OneTouch Verio Flex meter #1 ea 06/29/20 Unknown Rx (blood-glucose meter) atorvastatin 20 mg tablet 20 mg PO QHS cholestoral 01/31 Unknown History BD Insulin Syringe 1 mL 25 gauge x #100 ea 05/24/21 Un known Rx 5/8 (insulin syringe-needle U-100) insulin syringe-needle U-100 0.5 #100 ea 06/02/22 Unkn own Rx mL 31 gauge x 5/16 (BD Insulin Syringe Ultra-Fine) OneTouch Verio test strips (blood #100 ea 08/25/22 Unk nown Rx sugar diagnostic) scopolamine base 1 mg over 3 days 1 patch transdermal Q72H PRN 01/26/23 Unknown History transdermal patch nausea and vomiting gabapentin 300 mg capsule 300 mg PO TID PRN neuropathy #90 04/10/23 Unknown Rx caps pen needle, diabetic 32 gauge x #100 ea 07/20/23 Unkno wn Rx 5/32 (BD Ultra-Fine Shani Pen Needle) insulin syringe-needle U-100 1 mL #100 ea 08/31/23 Unk nown Rx 31 gauge x 5/16 (BD Insulin Syringe Ultra-Fine) pen needle, diabetic 32 gauge x #50 ea 08/31/23 Unknow n Rx 5/32 (BD Ultra-Fine Shani Pen Needle) ursodiol 300 mg capsule 300 mg PO BID #60 caps 01/03 Unknown Rx lisinopril 20 mg tablet 20 mg PO QDAY 01/15/24 Unkno wn History nebulizer tubing kits #1 ea 02/05/24 Unknown Rx neublizer machine #1 ea 02/05/24 Unknown Rx lancets 33 gauge (OneTouch Delica #100 ea 02/22/24 Unk nown Rx Plus Lancet) albuterol sulfate 2.5 mg/3 mL 2.5 mg (3 mL) inhalation Q4-6H PRN 03/15/24 Unknown Rx (0.083 %) solution for nebulization shortness of breat h or wheezing #180 mL levothyroxine 175 mcg tablet 175 mcg PO DAILY #30 tabs 04/02/24 Unknown Rx cholecalciferol (vitamin D3) 25 2,000 unit PO DAILY Unknown History mcg (1,000 unit) capsule (Vitamin D3) fluticasone furoate 200 1 inh inhalation Q24H #30 ea 04/30/24 Unknown Rx mcg/actuation blister powder for inhalation (Arnuity Ellipta) tirzepatide 10 mg/0.5 mL 10 mg subcut QWEEK 04/30/24 Unknown History subcutaneous pen injector (Mounjonathanro) dapagliflozin propanediol 10 mg 10 mg PO QDAY #90 tabs 05/07/24 Unknown Rx tablet (Farxiga) metoprolol succinate 200 mg 200 mg PO QDAY #90 tabs Unknown Rx tablet,extended release 24 hr blood sugar diagnostic (Blood #100 ea 06/12/24 Unknown Rx Glucose Test strips) insulin regular hum U-500 conc 500 See Rx Instructions subcut BID 06/14/24 Unknown History unit/mL(3 mL) subcut pen (Humulin R U-500 (Conc) Insulin Kwikpen) Allergy/AdvReac Type Severity Reaction Status Date / Time wool AdvReac Severe Hives Verified 06/14/24 14:14 Family History Grandfather Family history of heart disease Family history of hypertension Hyperlipidemia Hypertension Diabetes Mother Family history of high cholesterol COPD (chronic obstructive pulmonary disease) Family history of hypertension in mother Grandfather Family history of high cholesterol Sleep apnea Aunt Family history of hypertension Sister Cancer Father , Diabetes Diabetes Hypertension Hyperlipidemia Surgical History History of lung biopsy History of esophagogastroduodenoscopy (EGD) History of surgery history of gallbladder sugery History of tonsillectomy and adenoidectomy Social History household members: family housing: house current occupational status: employed current occupational exposures/hazards: Yes Smoking Status: Former smoker Tobacco: How many years used: 2 alcohol intake: never substance use type: does not use caffeine: Yes Type: coffee Number of servings: 2 ROS ROS Narrative Negative except above Physical Exam Narrative Alert awake oriented x 3 no obvious distress no pallor no icterus no JVD s1s2 no murmurs lungs clear abdomen soft no organomegaly no edema no cyanosis camejo + Lab / Micro Data 06/15/24 05:09 06/15/24 05:09 Labs: Laboratory Results - last 24 hr 06/14/24 14:37: WBC 4.2 L, RBC 4.30 L, Hgb 14.2, Hct 39.7 L, MCV 92.3, MCH 33.0 H, MCHC 35.8, RDW Std Deviation 55.8 H, RDW Coeff of Syed 16.7 H, Plt Count 128 L , MPV 9.1, Immature Gran % (Auto) 0.200, Neut % (Auto) 67.0, Lymph % (Auto) 16.6 L, Stone % (Auto) 11.1 H, Eos % (Auto) 4.6, Baso % (Auto) 0.5, Absolute Neuts (auto) 2.8, Absolute Lymphs (auto) 0.69 L, Nucleated RBC % 0, Sodium 131 L, Potassium 4.3, Chloride 99, Carbon Dioxide 18.6 L, Anion Gap 13, BUN 50 H, C reatinine 3.30 H, Estim Creat Clear Calc 50.83, Est GFR (MDRD) Non-Af 22 L, BUN/Creatinine Ratio 15.3, Glucose 222 H, Calcium 14.0 H*, Total Bilirubin 0.70, Direct Bilirubin 0.34 H, AST 59 H, ALT 41, Alkaline Phosphatase 172 H, Total Protein 7.4, Albumin 4.1, Globulin 3.3 06/14/24 17:45: Urine Color Yellow, Urine Clarity Clear, Urine pH 6.0, Ur Specific [place] 1.020, Urine Protein 30 H, Urine Glucose (UA) 1000 H, Urine Ketones Negative, Urine Occult Blood 25 H, Urine Nitrite Negative, Urine Bilirubin Negative, Urine Urobilinogen Normal, Ur Leukocyte Esterase Negative, Urine RBC 0-5 SEEN, Urine WBC 0 SEEN, Ur Squamous Epith Cells 0-5 SEEN, Amorphous Sediment 1+ URATE, Urine Bacteria 0 SEEN, Urine Mucus 0 SEEN 06/14/24 17:54: POC Glucose 220 H 06/14/24 21:27: POC Glucose 219 H 06/15/24 05:09: WBC 4.5, RBC 3.94 L, Hgb 12.9 L, Hct 37.1 L, MCV 94.2 H, MCH 32.7 H, MCHC 34.8, RDW Std Deviation 57.1 H, RDW Coeff of Syed 16.7 H, Plt Count 125 L, MPV 9.9, Immature Gran % (Auto) 0.400, Neut % (Auto) 67.5, Lymph % (Auto) 18.1 L, Stone % (Auto) 9.8, Eos % (Auto) 3.8, Baso % (Auto) 0.4, Absolute Neuts (auto) 3.0, Absolute Lymphs (auto) 0.81 L, Nucleated RBC % 0, Sodium 132 L, Potassium 4.4, Chloride 102, Carbon Dioxide 17.7 L, Anion Gap 13, BUN 44 H, C reatinine 2.97 H, Estim Creat Clear Calc 56.48, Est GFR (MDRD) Non-Af 25 L, BUN/Creatinine Ratio 14.8, Glucose 204 H, Calcium 12.4 H, Vitamin D 25-Hydroxy 21.5 L 06/15/24 06:23: POC Glucose 208 H 06/15/24 11:28: POC Glucose 237 H Imaging Radiology Impression Abdomen/Pelvis CT 06/14/24 16:45 IMPRESSION: Patchy ill-defined mainly perihilar appearing ground-glass opacities at the bilateral visualized lung bases may be inflammatory or infectious or less likely pulmonary edema, clinically correlate. No pleural effusion seen. Splenomegaly 17.4 cm. Reading Location: [id number]
--- NOTE | 2024-06-15 14:05 | CASEMGMT ---
RN CM notified SW that patient would like to complete advance directives. SW assisted patient in completing documents. Copies were made and given to patient along with originals. SW also placed a copy of each in patient's chart. Maru CANO
[2024-06-15] MEDS: Heparin Injection (Vial) 5,000 UNIT/ML VIAL 5000 UNIT SC (15:08)
[2024-06-15] MEDS: 0.9% Normal Saline (1000mL) 1,000 ML 125 ML IV ×2 (15:08→21:01)
[2024-06-15] MEDS: Insulin U-500 UNITS/ML PEN 180 UNITS SC (16:49)
[2024-06-15 18:03] LABS: Bedside Glucose 240 mg/dL (74-106)
[2024-06-15] MEDS: Atorvastatin Calcium 20 MG Tablet PO (21:01)
[2024-06-15 23:04] LABS: Bedside Glucose 162 mg/dL (74-106)
[2024-06-16] VITALS (12 sets, daily range): BP systolic 122–145; BP diastolic 75–98; PULSE 77–99; RESP 16–20; TEMP 36.6; O2SAT 96–97
[2024-06-16] MEDS: 0.9% Normal Saline (1000mL) 1,000 ML 125 ML IV ×3 (04:31→19:54)
[2024-06-16] MEDS: Levothyroxine 175 MCG Tablet PO (04:33)
[2024-06-16] MEDS: Heparin Injection (Vial) 5,000 UNIT/ML VIAL 5000 UNIT SC ×2 (04:36→15:06)
[2024-06-16 06:22] LABS: Bedside Glucose 67 mg/dL (74-106)
[2024-06-16] MEDS: Budesonide Respules 0.5 MG/2 ML AMPUL.NEB. INHALATION ×2 (07:03→19:52)
--- NOTE | 2024-06-16 08:31 | PCM.PN.HOSP ---
Reason for Visit Reason for Visit: Diagnoses Hypercalcemia (06/14/24) Acute kidney failure, unspecified (06/14/24) Subjective Subjective Patient seen really uneventful night. Calcium and creatinine levels trending down Objective Data Objective Data Vital Signs: Vital Signs Temp Pulse Resp BP Pulse Ox O2 Del Method 97.8 F 77 20 H 132/75 H 96 Room Air 06/16/24 04:24 06/16/24 07:40 06/16/24 07:31 06/16/24 04:24 06/16/24 04:24 06/16/24 04:25 Oxygen Delivery Method Room Air Weight: 226 kg Body Mass Index (BMI) 71.3 Intake & Output: Intake and Output for Last 24 Hours 06/14/24 06/15/24 06/16/24 23:59 23:59 23:59 Intake Total 1500 / 1500 3335.42 / 3335.42 937.5 / 937.5 Output Total 600 / 1600 3300 / 3300 350 / 350 Balance 900 / -100 35.42 / 35.42 587.5 / 587.5 Lab / Micro Data 06/16/24 08:15 06/16/24 08:15 Labs: Laboratory Results - last 24 hr 06/15/24 11:28: POC Glucose 237 H 06/15/24 16:47: POC Glucose 240 H 06/15/24 20:57: POC Glucose 162 H 06/16/24 04:30: POC Glucose 67 L Physical Exam Narrative GENERAL: cooperative HEENT: Atraumatic; normocephalic EYES; Anicteric, Normal Conjunctiva NECK; supple, normal thyroid, RESPIRATORY: Diminished to auscultation CARDIOVASCULAR: Regular S1 S2, GI: soft, normoactive bowel sounds, : No Renal angle tenderness; EXTREMITIES: No edema, no clubbing, MUSCULOSKELETAL: no muscle wasting NEURO: Awake; no lateralizing signs. SKIN: No Rash PSYCH; Flat affect Assessment & Plan Assessment/Plan (1) CLARENCE (acute kidney injury): (2) Hypercalcemia: PLAN: Plan Patient is a 49-year-old gentleman who was admitted with worsening kidney function from prior to undergoing CT of his coronaries. 1. Acute kidney injury ? Superimposed on chronic kidney disease stage III baseline creatinine 1.6, creatinine on admission was 3.3. Patient admitted to regular nursing floor started on IV fluids.CT of the abdomen and pelvis obtained as part of patient management did not reveal any renal stones no hydronephrosis. Consult was placed to nephrology as outpatient ? 06/16/2024; patient responding to IV fluid creatinine down to 2.50 2. Hypercalcemia ? Patient did receive IV fluid resuscitation as well as pamidronate. Ordered urine protein and serum electrophoresis as part of patient's management ? patient calcium levels trending down. Patient had apparently undergone workup as outpatient including biopsy which did show noncaseating granuloma? Sarcoidosis. Case discussed with nephrology plan is obtain pulmonary consultation. Patient had also undergone serum electrophoresis as outpatient which came back negative 3. Cardiomyopathy ? Recent echo demonstrated EF of 45% with mild LV concentric hypertrophy 4. Class III obesity with BMI of 71.3 ? Complicating care; Weight loss advised. 5. Hypothyroidism ? Patient is on levothyroxine home dose continued 6. Diabetes mellitus type II -patient's oral hypoglycemics held. Placed on long acting insulin, Accu-Cheks a.c. and at bedtime and covered with sliding scale insulin 7. Hypertension ? Blood pressure controlled, home medications continued with dose adjustment as needed 8. DVT prophylaxis ? SC heparin Time spent in the patient's overall evaluation,decision-making process, review of diagnostic data, adjustment of management, discussion with other providers, nursing nursing and ancillary staff involved in patient's care documentation, 38 Minutes Charges/Coding Visit Charges Inpatient E&M: 32160 Subs Hosp L2
[2024-06-16 08:32] LABS: Absolute Lymphocyte Count 0.72 X10^3/uL (0.83-4.51); Absolute Neutrophil Count 2.7 X10^3/uL (2.0-7.7); Basophil# 0.02 X10^3/uL; Basophil% 0.5 % (0-1); Eosinophil# 0.15 X10^3/uL; Eosinophils% 3.8 % (0-5); Hemoglobin 12.2 g/dL (13.0-16.5); Lymphocyte # 0.72 X10^3/ul (0.83-4.51); Mean Corp Hgb Conc 34.9 g/dL (32-36); Mean Corpuscular Volume 94.6 fL (80-94); Mean Platelet Vol. 9.1 fl (6.2-12.0); Monocyte# 0.39 X10^3/uL; Monocyte% 9.8 % (0-10); NRBC Flagged by Analyzer 0 % (0-5); Neutrophil % 67.4 % (47-70); Platelet Count 111 K/mm3 (150-450); RBC Distribution Width CV 16.5 % (11.6-14.6); RBC Distribution Width SD 56.7 fl (35.1-43.9)
[2024-06-16 08:56] LABS: Anion Gap 11 (5-15); BUN 35 mg/dL (4-19); BUN/Creat Ratio 14.1 RATIO (10-20); Calcium,Total 11.1 mg/dL (7.6-11.0); Carbon Dioxide 16.8 mmol/L (21.0-32.0); Chloride 105 mmol/L (98-108); EST Glomerular Filtration Rate 31 (>60); Glucose 92 mg/dL (70-99); Magnesium 1.8 mg/dL (1.5-2.2); Phosphorus 3.1 mg/dL (2.7-4.5); Potassium 3.8 mmol/L (3.3-5.1); Sodium Level 133 mmol/L (133-145)
[2024-06-16] MEDS: Ursodiol 250 MG Tablet PO ×2 (10:43→20:59)
[2024-06-16] MEDS: Aspirin 81 MG TAB.CHEW PO (10:43)
[2024-06-16] MEDS: Magnesium Chloride 64 MG Delay Rel.Tablet PO ×2 (10:43→20:59)
[2024-06-16] MEDS: Metoprolol(XL)Succ 200 MG Tablet PO (10:43)
[2024-06-16] MEDS: Cholecalciferol (VIT D3) 25 MCG TABLET (1,000 UNITS) 50 MCG PO (10:44)
[2024-06-16 11:22] LABS: Bedside Glucose 105 mg/dL (74-106)
[2024-06-16 17:42] LABS: Bedside Glucose 189 mg/dL (74-106)
[2024-06-16] MEDS: Insulin Lispro 100 UNIT/ML INSULN.PEN SC ×2 (18:29→20:59)
[2024-06-16] MEDS: Insulin U-500 UNITS/ML PEN 180 UNITS SC (18:31)
[2024-06-16] MEDS: Atorvastatin Calcium 20 MG Tablet PO (20:59)
[2024-06-16 22:29] LABS: Bedside Glucose 233 mg/dL (74-106)
[2024-06-17] VITALS (9 sets, daily range): BP systolic 125–134; BP diastolic 65–86; PULSE 83–97; RESP 16–18; TEMP 36.6–37.1; O2SAT 97–99
[2024-06-17] MEDS: 0.9% Normal Saline (1000mL) 1,000 ML 125 ML IV ×2 (02:26→10:34)
[2024-06-17 05:09] LABS: Absolute Lymphocyte Count 0.68 X10^3/uL (0.83-4.51); Absolute Neutrophil Count 2.5 X10^3/uL (2.0-7.7); Basophil# 0.02 X10^3/uL; Basophil% 0.5 % (0-1); Eosinophil# 0.16 X10^3/uL; Eosinophils% 4.3 % (0-5); Hematocrit 34.8 % (40-54); Lymphocyte # 0.68 X10^3/ul (0.83-4.51); Lymphocyte % 18.3 % (19-41); Mean Corp Hgb Conc 34.5 g/dL (32-36); Mean Corpuscular Hgb 32.4 pg (27.0-32.0); Mean Corpuscular Volume 94.1 fL (80-94); Mean Platelet Vol. 9.1 fl (6.2-12.0); Monocyte# 0.38 X10^3/uL; Monocyte% 10.2 % (0-10); NRBC Flagged by Analyzer 0 % (0-5); Neutrophil # 2.46 X10^3/uL (2.7-7.7); Neutrophil % 66.4 % (47-70); Platelet Count 106 K/mm3 (150-450); RBC Distribution Width CV 16.2 % (11.6-14.6); RBC Distribution Width SD 55.9 fl (35.1-43.9); White Blood Count 3.7 K/mm3 (4.4-11.0)
[2024-06-17] MEDS: Heparin Injection (Vial) 5,000 UNIT/ML VIAL 5000 UNIT SC ×3 (05:33→21:13)
[2024-06-17] MEDS: Levothyroxine 175 MCG Tablet PO (05:33)
[2024-06-17 06:01] LABS: Anion Gap 11 (5-15); BUN 33 mg/dL (4-19); BUN/Creat Ratio 12.6 RATIO (10-20); Calcium,Total 10.7 mg/dL (7.6-11.0); Carbon Dioxide 18.1 mmol/L (21.0-32.0); Chloride 104 mmol/L (98-108); Creatinine, Serum 2.61 mg/dL (0.70-1.20); EST Glomerular Filtration Rate 29 (>60); Estimated Creatinine Clearance 64.27 ml/min (50-250); Glucose 145 mg/dL (70-99); Potassium 4.5 mmol/L (3.3-5.1); Sodium Level 133 mmol/L (133-145)
[2024-06-17 06:04] LABS: Bedside Glucose 138 mg/dL (74-106)
[2024-06-17] MEDS: Budesonide Respules 0.5 MG/2 ML AMPUL.NEB. INHALATION (07:25)
--- NOTE | 2024-06-17 08:31 | PCM.PN.HOSP ---
Reason for Visit Reason for Visit: Diagnoses Hypercalcemia (06/14/24) Acute kidney failure, unspecified (06/14/24) Subjective Subjective Patient reports overall feeling fair, some chronic lower extremity edema, no increasing shortness of breath or abdominal pain at this time Objective Data Objective Data Vital Signs: Vital Signs Temp Pulse Resp BP Pulse Ox O2 Del Method 98.5 F 84 18 134/68 H 99 Room Air 06/17/24 02:22 06/17/24 02:22 06/17/24 02:22 06/17/24 02:22 06/17/24 02:22 06/17/24 02:22 Oxygen Delivery Method Room Air Weight: 226 kg Body Mass Index (BMI) 71.3 Intake & Output: Intake and Output for Last 24 Hours 06/15/24 06/16/24 06/17/24 23:59 23:59 23:59 Intake Total 3335.42 / 3335.42 3835.42 / 3835.42 816.67 / 816.67 Output Total 3300 / 3300 3200 / 3200 650 / 650 Balance 35.42 / 35.42 635.42 / 635.42 166.67 / 166.67 Lab / Micro Data 06/17/24 04:55 06/17/24 04:55 Labs: Laboratory Results - last 24 hr 06/16/24 08:15: WBC 4.0 L, RBC 3.70 L, Hgb 12.2 L, Hct 35.0 L, MCV 94.6 H, MCH 33.0 H, MCHC 34.9, RDW Std Deviation 56.7 H, RDW Coeff of Syed 16.5 H, Plt Count 111 L, MPV 9.1, Immature Gran % (Auto) 0.500, Neut % (Auto) 67.4, Lymph % (Auto) 18.0 L, [place] % (Auto) 9.8, Eos % (Auto) 3.8, Baso % (Auto) 0.5, Absolute Neuts (auto) 2.7, Absolute Lymphs (auto) 0.72 L, Nucleated RBC % 0, Sodium 133, Potassium 3.8, Chloride 105, Carbon Dioxide 16.8 L, Anion Gap 11, BUN 35 H, Creatinine 2.50 H, Estim Creat Clear Calc 67.10, Est GFR (MDRD) Non-Af 31 L, BUN/Creatinine Ratio 14.1, Glucose 92, Calcium 11.1 H, Phosphorus 3.1, Magnesium 1.8 06/16/24 11:01: POC Glucose 105 06/16/24 17:23: POC Glucose 189 H 06/16/24 20:59: POC Glucose 233 H 06/17/24 04:55: WBC 3.7 L, RBC 3.70 L, Hgb 12.0 L, Hct 34.8 L, MCV 94.1 H, MCH 32.4 H, MCHC 34.5, RDW Std Deviation 55.9 H, RDW Coeff of Syed 16.2 H, Plt Count 106 L, MPV 9.1, Immature Gran % (Auto) 0.300, Neut % (Auto) 66.4, Lymph % (Auto) 18.3 L, [place] % (Auto) 10.2 H, Eos % (Auto) 4.3, Baso % (Auto) 0.5, Absolute Neuts (auto) 2.5, Absolute Lymphs (auto) 0.68 L, Nucleated RBC % 0, Sodium 133, Potassium 4.5, Chloride 104, Carbon Dioxide 18.1 L, Anion Gap 11, BUN 33 H, Creatinine 2.61 H, Estim Creat Clear Calc 64.27, Est GFR (MDRD) Non-Af 29 L, BUN/Creatinine Ratio 12.6, Glucose 145 H, Calcium 10.7 06/17/24 05:32: POC Glucose 138 H Physical Exam Narrative General: Alert, oriented, no apparent distress HEENT: Atraumatic, normocephalic Eyes: Anicteric, normal conjunctiva, extraocular movements grossly intact Neck: Supple Respiratory: Clear to auscultation bilaterally, normal respiratory effort Cardiovascular: Regular rate and rhythm GI: Soft, nontender, nondistended Extremities: No pitting edema Musculoskeletal: Moving all extremities Neuro: No overt focal neurological deficits Skin: No rashes appreciated Psych: Cooperative Assessment & Plan Assessment/Plan (1) Hypercalcemia: (2) Hyperglycemia due to diabetes mellitus: (3) Granulomatous lung disease: PLAN: Plan #Arsen on CKD IIIb - Patient's baseline creatinine around 1.6 on admission was 3.3 - CT abdomen pelvis obtained this admission with no renal stones or hydronephrosis - Kidney function improved with IV fluids down to 2.5 however today slightly up at 2.61 - Nephrology following # Hypercalcemia - Reportedly had outpatient serum electrophoresis which was negative - Calcium of 14 on presentation and patient given IV fluids and pamidronate - Calcium 10.7 today - Reportedly had an outpatient liver biopsy which showed noncaseating granuloma, ?sarcoidosis - Nephrology recommended pulmonology consult -Discussed with pulmonology and there is concern that this is sarcoidosis - Recommendation is that patient be put on 40 mg of p.o. prednisone but is recommended to discuss with patient's senior storage administrator prior to initiating steroid therapy given patient's high insulin requirements and wide vacillations and glucose - Did discuss with patient's senior storage administrator and she recommended monitoring patient for 24 to 36 hours to verify glucoses are within reason for discharge given his high risk of significant fluctuations in poor control, discussed this with patient who verbalizes understanding. Did discuss that he actually required holding his U-500 the past 2 mornings and adjustments to the evening dose, is advised that this is likely due to change in diet, so likely had increased requirements with addition of steroids and once patient is discharged and adjusts his diet. Is recommended that on discharge patient call the office with his last 4 blood sugars and that he called daily initially so this can be very closely monitored #Type 2 diabetes mellitus -Glucose checks and sliding scale insulin - Patient on 65 units of U-500 in the morning and 185 with dinner however yesterday a.m. was held and dinner dose was decreased - Patient placed on steroids, discussion with endocrinology as above # LVSD - Echocardiogram 45% and stage I diastolic dysfunction with mild to moderate RV systolic dysfunction - Patient follows with cardiology on an outpatient basis, patient to have cardiac MRI on an outpatient basis #Hypothyroidism -Continue Synthroid #SONIA -Continue home NIPPV if applicable #Morbid obesity -BMI documented as 71.5 kg/m? at time of admission -Complicates treatment, prognosis, outcomes -Recommend weight loss and lifestyle changes # History of cirrhosis -Follows on an outpatient basis with GI -Can continue to follow on discharge #DVT ppx: Heparin subcu Pastora Terry MD Charges/Coding Visit Charges Inpatient E&M: 94878 Subs Hosp L2
[2024-06-17] MEDS: Cholecalciferol (VIT D3) 25 MCG TABLET (1,000 UNITS) 50 MCG PO (09:09)
[2024-06-17] MEDS: Magnesium Chloride 64 MG Delay Rel.Tablet PO ×2 (09:09→21:13)
[2024-06-17] MEDS: Metoprolol(XL)Succ 200 MG Tablet PO (09:09)
[2024-06-17] MEDS: Aspirin 81 MG TAB.CHEW PO (09:09)
[2024-06-17] MEDS: Ursodiol 250 MG Tablet PO ×2 (09:09→21:13)
--- NOTE | 2024-06-17 10:10 | EX.PCM.CONCC ---
Assessment & Plan Assessment/Plan (1) Hypercalcemia: (2) Granulomatous lung disease: PLAN: Plan RECOMMENDATIONS: 1. I agree with initiating prednisone 40 mg daily, if okay with endocrinology from a diabetes perspective. 2. The patient should be maintained on this dose of prednisone until he is followed up in the pulmonary medicine clinic on 07/08. 3. Continue nocturnal PAP therapy per home regimen. IMPRESSIONS: 1. Acute kidney injury in the setting of hypercalcemia The patient's acute kidney injury has improved and his hypercalcemia has resolved with medical therapy. I do agree that the hypercalcemia may be secondary to granulomatous lung disease, as was noted on CT-guided lung biopsy from August 2023. Given that I suspect that the patient has sarcoidosis, will check serum SEB level. 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 I would recommend that he be maintained on 40 mg of prednisone daily until he can be followed up in the pulmonary medicine office on July 08. If the patient is doing well at that time, we can begin to wean his corticosteroids cautiously. 2. Shortness of breath Suspect multifactorial etiology with underlying cardiomyopathy, super morbid obesity and sarcoidosis contributing. As noted above, recommend initiation of corticosteroid therapy at this time, with outpatient pulmonary follow-up, as scheduled. 3. Pulmonary nodularity Likely related to underlying granulomatous lung disease. 4. History of obstructive sleep apnea Continue nocturnal BiPAP therapy per home regimen. This note was generated with Retty dictation software. It may contain incorrect words, spelling, and punctuation that were not noted in checking the note before signing. 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 The patient is currently followed in the pulmonary medicine clinic. I last personally saw the patient in September 2021. He has a known history of obstructive sleep apnea and is maintained on nocturnal BiPAP with a pressure support of 17/13 cm of water. He also has chronic shortness of breath which is multifactorial in etiology along with pulmonary nodularity, which has been managed with serial CT imaging. A CT-guided lung biopsy was actually completed in August 2023 in the right upper lobe with evidence of nonnecrotizing granulomas noted. It also appears that the patient had a liver biopsy completed in March 2022, which also showed evidence of nonnecrotizing granuloma inflammation. On admission, the patient was noted to have a normal white blood cell count and evidence of chronic thrombocytopenia with a platelet count of 128,000. Chemistry profile was notable for a creatinine of 3.36, which was previously noted to be 1.65 in April 2024. Calcium was elevated at 14. The patient was seen in consultation by nephrology. He has been medically managed with supplemental IV fluids with concern that his renal insufficiency may be secondary to hypercalcemia. With medical management, the patient's hypercalcemia has resolved. His renal function is also improving. [facility] Medical History History of chicken pox Chronic kidney disease Pneumonia History of steroid therapy History of renal disease Fatty liver Former smoker BiPAP (biphasic positive airway pressure) dependence Sleep apnea History of edema Elevated liver enzymes COVID-19 Vitamin D deficiency Thyroid disease Hyperlipidemia Hypertension Diabetes Home Medications ?Medication ?Instructions ?Recorded ?Last Taken ?Type aspirin 81 mg chewable tablet 81 mg PO DAILY@0800 heart health 08/11/16 04/15/18 History magnesium oxide 250 mg PO BID supplement 04/16/18 04/15/18 History lancets 28 gauge (Easy Touch #100 ea 02/27/20 Unknown Rx Lancets) OneTouch Verio Flex meter #1 ea 06/29/20 Unknown Rx (blood-glucose meter) atorvastatin 20 mg tablet 20 mg PO QHS cholestoral 12/21/20 Unknown History BD Insulin Syringe 1 mL 25 gauge x #100 ea 05/24/21 Unknown Rx 5/8 (insulin syringe-needle U-100) insulin syringe-needle U-100 0.5 #100 ea 06/02/22 Unknown Rx mL 31 gauge x 5/16 (BD Insulin Syringe Ultra-Fine) OneTouch Verio test strips (blood #100 ea 08/25/22 Unknown Rx sugar diagnostic) scopolamine base 1 mg over 3 days 1 patch transdermal Q72H PRN 01/26/23 Unknown History transdermal patch nausea and vomiting gabapentin 300 mg capsule 300 mg PO TID PRN neuropathy #90 04/10/23 Unknown Rx caps pen needle, diabetic 32 gauge x #100 ea 07/20/23 Unknown Rx 5/32 (BD Ultra-Fine Shani Pen Needle) insulin syringe-needle U-100 1 mL #100 ea 08/31/23 Unknown Rx 31 gauge x 5/16 (BD Insulin Syringe Ultra-Fine) pen needle, diabetic 32 gauge x #50 ea 08/31/23 Unknown Rx 5/32 (BD Ultra-Fine Shani Pen Needle) ursodiol 300 mg capsule 300 mg PO BID #60 caps 01/04/24 Unknown Rx lisinopril 20 mg tablet 20 mg PO QDAY 01/15/24 Unknown History nebulizer tubing kits #1 ea 02/05/24 Unknown Rx neublizer machine #1 ea 02/05/24 Unknown Rx lancets 33 gauge (OneTouch Delica #100 ea 02/22/24 Unknown Rx Plus Lancet) albuterol sulfate 2.5 mg/3 mL 2.5 mg (3 mL) inhalation Q4-6H PRN 03/15/24 Unknown Rx (0.083 %) solution for nebulization shortness of breath or wheezing #180 mL levothyroxine 175 mcg tablet 175 mcg PO DAILY #30 tabs 04/02/24 Unknown Rx cholecalciferol (vitamin D3) 25 2,000 unit PO DAILY 04/30/24 Unknown History mcg (1,000 unit) capsule (Vitamin D3) fluticasone furoate 200 1 inh inhalation Q24H #30 ea 04/30/24 Unknown Rx mcg/actuation blister powder for inhalation (Arnuity Ellipta) tirzepatide 10 mg/0.5 mL 10 mg subcut QWEEK 04/30/24 Unknown History subcutaneous pen injector (Vignesh) dapagliflozin propanediol 10 mg 10 mg PO QDAY #90 tabs 05/07/24 Unknown Rx tablet (Farxiga) metoprolol succinate 200 mg 200 mg PO QDAY #90 tabs 05/07/24 Unknown Rx tablet,extended release 24 hr blood sugar diagnostic (Blood #100 ea 06/12/24 Unknown Rx Glucose Test strips) insulin regular hum U-500 conc 500 See Rx Instructions subcut BID 06/14/24 Unknown History unit/mL(3 mL) subcut pen (Humulin R U-500 (Conc) Insulin Kwikpen) Allergy/AdvReac Type Severity Reaction Status Date / Time wool AdvReac Severe Hives Verified 06/14/24 14:14 Family History Grandfather Family history of heart disease Family history of hypertension Hyperlipidemia Hypertension Diabetes Mother Family history of high cholesterol COPD (chronic obstructive pulmonary disease) Family history of hypertension in mother Grandfather Family history of high cholesterol Sleep apnea Aunt Family history of hypertension Sister Cancer Father , Diabetes Diabetes Hypertension Hyperlipidemia Surgical History History of lung biopsy History of esophagogastroduodenoscopy (EGD) History of surgery history of gallbladder sugery History of tonsillectomy and adenoidectomy Social History household members: family housing: house current occupational status: employed current occupational exposures/hazards: Yes Smoking Status: Former smoker Tobacco: How many years used: 2 alcohol intake: never substance use type: does not use caffeine: Yes Type: coffee Number of servings: 2 ROS ROS Narrative 10 systems were reviewed with pertinent positives as noted in the HPI above. Physical Exam Const alert, oriented x3 and no apparent distress Constitutional Narrative: Super morbidly obese. HEENT normocephalic and head/scalp atraumatic Eyes PERRL, EOMs intact bilaterally and conjunctivae normal Neck supple General: trachea midline Chest inspection of chest normal Resp Auscultation: diminished lung sounds; Negative for rales, rhonchi or wheezes Cardio regular rate and regular rhythm GI normal to inspection, nondistended, normoactive bowel sounds Extremity no clubbing, cyanosis or edema Skin no rashes or lesions noted Neuro CN's II-XII intact bilaterally, moves all extremities and no focal motor deficits Psych cooperative and affect normal Lab / Micro Data 06/17/24 04:55 06/17/24 04:55 Labs: Laboratory Results - last 24 hr 06/16/24 11:01: POC Glucose 105 06/16/24 17:23: POC Glucose 189 H 06/16/24 20:59: POC Glucose 233 H 06/17/24 04:55: WBC 3.7 L, RBC 3.70 L, Hgb 12.0 L, Hct 34.8 L, MCV 94.1 H, MCH 32.4 H, MCHC 34.5, RDW Std Deviation 55.9 H, RDW Coeff of Syed 16.2 H, Plt Count 106 L, MPV 9.1, Immature Gran % (Auto) 0.300, Neut % (Auto) 66.4, Lymph % (Auto) 18.3 L, [place] % (Auto) 10.2 H, Eos % (Auto) 4.3, Baso % (Auto) 0.5, Absolute Neuts (auto) 2.5, Absolute Lymphs (auto) 0.68 L, Nucleated RBC % 0, Sodium 133, Potassium 4.5, Chloride 104, Carbon Dioxide 18.1 L, Anion Gap 11, BUN 33 H, Creatinine 2.61 H, Estim Creat Clear Calc 64.27, Est GFR (MDRD) Non-Af 29 L, BUN/Creatinine Ratio 12.6, Glucose 145 H, Calcium 10.7 06/17/24 05:32: POC Glucose 138 H Charges/Coding Visit Charges Inpatient E&M: 46043 Init Hosp L3
[2024-06-17] MEDS: predniSONE 20 MG Tablet 40 MG PO (10:34)
[2024-06-17 11:39] LABS: Bedside Glucose 166 mg/dL (74-106)
[2024-06-17] MEDS: Insulin Lispro 100 UNIT/ML INSULN.PEN SC ×3 (11:47→21:12)
--- NOTE | 2024-06-17 12:11 | PN.RENAL_ITS ---
Subjective Subjective Resting in bed. No overnight events. Denies any complaints. Denies any nausea, vomiting and states he is urinating. Objective Data Objective Data Vital Signs: Vital Signs Temp Pulse Resp BP Pulse Ox O2 Del Method 98.7 F 83 18 125/65 H 97 Room Air 06/17/24 09:01 06/17/24 11:00 06/17/24 09:01 06/17/24 09:01 06/17/24 09:01 06/17/24 09:04 Oxygen Delivery Method Room Air Weight: 226 kg Body Mass Index (BMI) 71.3 Intake & Output: Intake and Output for Last 24 Hours 06/15/24 06/16/24 06/17/24 23:59 23:59 23:59 Intake Total 3335.42 / 3335.42 3835.42 / 3835.42 2056.67 / 2056.67 Output Total 3300 / 3300 3200 / 3200 650 / 650 Balance 35.42 / 35.42 635.42 / 635.42 1406.67 / 1406.67 Lab / Micro Data 06/17/24 04:55 06/17/24 04:55 Labs: Laboratory Results - last 24 hr 06/16/24 17:23: POC Glucose 189 H 06/16/24 20:59: POC Glucose 233 H 06/17/24 04:55: WBC 3.7 L, RBC 3.70 L, Hgb 12.0 L, Hct 34.8 L, MCV 94.1 H, MCH 32.4 H, MCHC 34.5, RDW Std Deviation 55.9 H, RDW Coeff of Syed 16.2 H, Plt Count 106 L, MPV 9.1, Immature Gran % (Auto) 0.300, Neut % (Auto) 66.4, Lymph % (Auto) 18.3 L, [place] % (Auto) 10.2 H, Eos % (Auto) 4.3, Baso % (Auto) 0.5, Absolute Neuts (auto) 2.5, Absolute Lymphs (auto) 0.68 L, Nucleated RBC % 0, Sodium 133, Potassium 4.5, Chloride 104, Carbon Dioxide 18.1 L, Anion Gap 11, BUN 33 H, C reatinine 2.61 H, Estim Creat Clear Calc 64.27, Est GFR (MDRD) Non-Af 29 L, BUN/Creatinine Ratio 12.6, Glucose 145 H, Calcium 10.7 06/17/24 05:32: POC Glucose 138 H 06/17/24 11:13: POC Glucose 166 H Physical Exam Narrative Alert awake oriented x 3 no obvious distress S1, S2, RRR Lungs clear Abdomen soft, rounded, nontender No edema Assessment & Plan Assessment/Plan (1) CLARENCE (acute kidney injury): PLAN: CKD stage IIIa, baseline creatinine is around 1.7 or so. Acute renal failure likely related to hypercalcemia. Serum creatinine 3.3 (this was peak) on admission and today creatinine is 2.61. Patient is nonoliguric. Bps acceptable. (2) Hypercalcemia: PLAN: Hypercalcemia. This is new onset. Calcium 14 on admission and today 10.7. Patient again today states he does not take any calcium supplements. Patient received pamidronate. He is currently on IV fluids. SPEP April 2024 negative: No monoclonality detected, no M spike. Concern for sarcoidosis. Seen by pulmonology. Patient is now on prednisone 40 mg daily and to be discharged home on prednisone with follow-up with pulmonary on July 08. Vitamin D 25- hydroxy low at 21.5. Vitamin D 1,25 pending, SEB level pending. Okay for discharge from renal standpoint. Patient will have follow-up in the office with Dr. Benoit. Nephrology plan reviewed with Dr. Terry. Assessment and plan reviewed with Dr. Benoit.
[2024-06-17] MEDS: Insulin U-500 UNITS/ML PEN 180 UNITS SC (16:37)
[2024-06-17 16:43] LABS: Bedside Glucose 243 mg/dL (74-106)
[2024-06-17] MEDS: Atorvastatin Calcium 20 MG Tablet PO (21:13)
[2024-06-17] MEDS: 0.9% Saline Lock 10 ML Syringe IV (21:13)
[2024-06-17 22:52] LABS: Bedside Glucose 236 mg/dL (74-106)
[2024-06-18 02:20] VITALS: BP 132/80; PULSE 86; RESP 16; TEMP 36.6; O2SAT 97
[2024-06-18 04:36] LABS: Absolute Lymphocyte Count 0.51 X10^3/uL (0.83-4.51); Absolute Neutrophil Count 3.3 X10^3/uL (2.0-7.7); Basophil# 0.01 X10^3/uL; Basophil% 0.2 % (0-1); Eosinophil# 0.01 X10^3/uL; Eosinophils% 0.2 % (0-5); Hematocrit 32.3 % (40-54); Hemoglobin 11.6 g/dL (13.0-16.5); Lymphocyte # 0.51 X10^3/ul (0.83-4.51); Lymphocyte % 12.2 % (19-41); Mean Corp Hgb Conc 35.9 g/dL (32-36); Mean Platelet Vol. 9.2 fl (6.2-12.0); Monocyte# 0.38 X10^3/uL; Monocyte% 9.1 % (0-10); NRBC Flagged by Analyzer 0 % (0-5); Neutrophil # 3.25 X10^3/uL (2.7-7.7); Neutrophil % 77.6 % (47-70); POSITIVE DIFFERENTIAL YES; Platelet Count 114 K/mm3 (150-450); RBC Distribution Width CV 15.9 % (11.6-14.6); RBC Distribution Width SD 53.3 fl (35.1-43.9); Red Blood Count 3.51 M/mm3 (4.6-6.2); White Blood Count 4.2 K/mm3 (4.4-11.0)
[2024-06-18 05:17] LABS: Anion Gap 13 (5-15); BUN 38 mg/dL (4-19); BUN/Creat Ratio 16.2 RATIO (10-20); Calcium,Total 10.4 mg/dL (7.6-11.0); Carbon Dioxide 14.2 mmol/L (21.0-32.0); Chloride 103 mmol/L (98-108); Creatinine, Serum 2.36 mg/dL (0.70-1.20); EST Glomerular Filtration Rate 33 (>60); Estimated Creatinine Clearance 71.08 ml/min (50-250); Glucose 144 mg/dL (70-99); Potassium 4.3 mmol/L (3.3-5.1); Sodium Level 131 mmol/L (133-145)
[2024-06-18] MEDS: Heparin Injection (Vial) 5,000 UNIT/ML VIAL 5000 UNIT SC (06:06)
[2024-06-18] MEDS: Levothyroxine 175 MCG Tablet PO (06:06)
[2024-06-18 06:36] LABS: Bedside Glucose 136 mg/dL (74-106)
[2024-06-18] MEDS: Aspirin 81 MG TAB.CHEW PO (08:27)
[2024-06-18] MEDS: predniSONE 20 MG Tablet 40 MG PO (08:27)
[2024-06-18 08:28] VITALS: BP 156/83; PULSE 83
[2024-06-18] MEDS: Metoprolol(XL)Succ 200 MG Tablet PO (08:28)
[2024-06-18] MEDS: Magnesium Chloride 64 MG Delay Rel.Tablet PO (08:28)
[2024-06-18] MEDS: Cholecalciferol (VIT D3) 25 MCG TABLET (1,000 UNITS) 50 MCG PO (08:34)
[2024-06-18] MEDS: Ursodiol 250 MG Tablet PO (08:34)
[2024-06-18] MEDS: Insulin U-500 UNITS/ML PEN 65 UNITS SC (08:39)
[2024-06-18 08:56] VITALS: PULSE 83; RESP 16; TEMP 36.4; O2SAT 97
[2024-06-18] MEDS: Insulin Lispro 100 UNIT/ML INSULN.PEN SC (11:30)
[2024-06-18 11:34] LABS: Bedside Glucose 167 mg/dL (74-106)
--- NOTE | 2024-06-18 12:19 | PN.RENAL_ITS ---
Subjective Subjective no new events Objective Data Objective Data Vital Signs: Vital Signs Temp Pulse Resp BP Pulse Ox O2 Del Method 97.5 F L 83 16 156/83 H 97 Room Air 06/18/24 08:56 06/18/24 08:56 06/18/24 08:56 06/18/24 08:28 06/18/24 08:56 06/18/24 09:16 Oxygen Delivery Method Room Air Weight: 226 kg Body Mass Index (BMI) 71.3 Intake & Output: Intake and Output for Last 24 Hours 06/16/24 06/17/24 06/18/24 23:59 23:59 23:59 Intake Total 3835.42 / 3835.42 2371.25 / 2611.25 240 / 240 Output Total 3200 / 3200 650 / 650 Balance 635.42 / 635.42 1721.25 / 1961.25 240 / 240 Lab / Micro Data 06/18/24 04:05 06/18/24 04:05 Labs: Laboratory Results - last 24 hr 06/17/24 16:15: POC Glucose 243 H 06/17/24 21:11: POC Glucose 236 H 06/18/24 04:05: WBC 4.2 L, RBC 3.51 L, Hgb 11.6 L, Hct 32.3 L, MCV 92.0, MCH 33.0 H, MCHC 35.9, RDW Std Deviation 53.3 H, RDW Coeff of Syed 15.9 H, Plt Count 114 L, MPV 9.2, Immature Gran % (Auto) 0.700, Neut % (Auto) 77.6 H, Lymph % (Auto) 12.2 L, [place] % (Auto) 9.1, Eos % (Auto) 0.2, Baso % (Auto) 0.2, Absolute Neuts (auto) 3.3, Absolute Lymphs (auto) 0.51 L, Nucleated RBC % 0, Sodium 131 L , Potassium 4.3, Chloride 103, Carbon Dioxide 14.2 L, Anion Gap 13, BUN 38 H, C reatinine 2.36 H, Estim Creat Clear Calc 71.08, Est GFR (MDRD) Non-Af 33 L, BUN/Creatinine Ratio 16.2, Glucose 144 H, Calcium 10.4 06/18/24 06:06: POC Glucose 136 H 06/18/24 11:17: POC Glucose 167 H Physical Exam Narrative Alert awake oriented x 3 no obvious distress S1, S2, RRR Lungs clear Abdomen soft, rounded, nontender No edema Assessment & Plan Assessment/Plan (1) CLARENCE (acute kidney injury): PLAN: CKD stage IIIa, baseline creatinine is around 1.7 or so. Acute renal failure likely related to hypercalcemia. cr better (2) Hypercalcemia: PLAN: Hypercalcemia. This is new onset. Calcium 14 on admission and today 10.7. Patient again today states he does not take any calcium supplements. Patient received pamidronate. He is currently on IV fluids. SPEP April 2024 negative: No monoclonality detected, no M spike. Concern for sarcoidosis. Seen by pulmonology. Patient is now on prednisone 40 mg daily and to be discharged home on prednisone with follow-up with pulmonary on July 08. Vitamin D 25- hydroxy low at 21.5. Vitamin D 1,25 pending, SEB level pending. Okay for discharge from renal standpoint. Patient will have follow-up in the office
[2024-06-18 13:41] VITALS: BP 135/89; PULSE 100; RESP 16; TEMP 36.3; O2SAT 97
--- NOTE | 2024-06-18 15:07 | PCM.DC ---
Discharge Instructions Diet Discharge Diet: - (Carbohydrate consistent, cardiac diet) DC O2, CPAP, BIPAP needs Home O2 Discharge instructions: No Dressing / Incision Discharge Activity: - (Increase activity as tolerated) Follow Up Care Test Results: Test results from this visit will be discussed in further detail at your follow-up appointment, if applicable. Discharge Plan Admission Admit Date/Time: 06/14/24 16:08 Primary Reason for Your Visit: High calcium and creatinine Attending Provider: Pastora Terry Primary Care Provider: Jordana Baez [facility] Consulting Providers: Madeleine Benoit; Grecia Marroquin; Nate Jackson; [place] Instructions Patient Instructions: Pulmonary Sarcoidosis Additional Instructions / Restrictions: DISCHARGE INSTRUCTIONS PLEASE READ *Please take this with you to your next doctors appointment* - Your insulin regimen upon discharge will be 70 units of your long-acting twice daily -You will need to call your endocrinology office daily with your glucoses so you can be monitored closely and your insulin adjusted as needed, please call the office tomorrow -You will be discharged on 40 mg of oral prednisone which you will take until you follow-up in the pulmonology office -Please follow-up with pulmonology upon discharge on 07/08. If there are any questions or concerns about your appointment please call their office -Please follow-up with nephrology upon discharge. Please call their office to schedule hospital follow-up appointment upon discharge. -Would recommend lab work (BMP) to check your kidney function and calcium in 3-5 days through your primary care physician's office. Please call their office upon discharge to obtain order for lab work. -Your lisinopril has been held given your kidney function, please do not resume this until talking to your primary care physician or jig worker -Please call your primary care provider's office upon discharge to schedule a hospital follow up within 1 week. -For any concerning signs or symptoms please call 911 or proceed to the nearest emergency department Discharge Orders/Prescriptions Prescriptions: New prednisone 20 mg Tablet 40 mg PO BREAKFAST 30 Days Qty: 60 0RF Continued (DME) lancets [Easy Touch Lancets] 28 gauge misc See Rx Instructions .ROUTE .MEDSUPPLY Qty: 100 6RF Rx Instructions: 3 times daily atorvastatin 20 mg tablet 20 mg PO QHS Patient Comments: TAKE 1 TABLET BY MOUTH AT BEDTIME (DME) BD Insulin Syringe 1 mL 25 gauge x 5/8 syringe See Rx Instructions .ROUTE .MEDSUPPLY Qty: 100 6RF Rx Instructions: bid scopolamine base 1 mg over 3 days patch 3 day 1 patch transdermal Q72H PRN (Reason: nausea and vomiting) (DME) nebulizer tubing kits See Rx Instructions .ROUTE .MEDSUPPLY Qty: 1 0RF Rx Instructions: As directed ([facility]) neublizer machine See Rx Instructions .ROUTE .MEDSUPPLY Qty: 1 0RF Rx Instructions: As directed Mounjaro 10 mg/0.5 mL pen injector 10 mg subcut QWEEK Arnuity Ellipta 200 mcg/actuation blister with device 1 inh inhalation Q24H Qty: 30 5RF metoprolol succinate 200 mg tablet extended release 24 hr 200 mg PO QDAY Qty: 90 3RF dapagliflozin propanediol [Farxiga] 10 mg tablet 10 mg PO QDAY Qty: 90 3RF aspirin 81 MG tablet,chewable 81 mg PO DAILY@0800 magnesium oxide 250 MG tablet 250 mg PO BID cholecalciferol (vitamin D3) [Vitamin D3] 25 mcg (1,000 unit) capsule 2,000 unit PO DAILY (DME) blood-glucose meter [OneTouch Verio Flex meter] Misc See Rx Instructions .ROUTE .MEDSUPPLY Qty: 1 0RF Rx Instructions: As directed ([facility]) insulin syringe-needle U-100 [BD Insulin Syringe Ultra-Fine] 0.5 mL 31 gauge x 5/16 syringe See Rx Instructions .ROUTE .MEDSUPPLY Qty: 100 6RF Rx Instructions: twice daily (DME) OneTouch Verio test strips Strip See Rx Instructions .ROUTE .MEDSUPPLY Qty: 100 8RF Rx Instructions: tid (DME) pen needle, diabetic [BD Ultra-Fine Shani Pen Needle] 32 gauge x 5/32 needle See Rx Instructions .Route Qty: 100 5RF Rx Instructions: BID (DME) insulin syringe-needle U-100 [BD Insulin Syringe Ultra-Fine] 1 mL 31 gauge x 5/16 syringe See Rx Instructions .Route Qty: 100 4RF Rx Instructions: As directed (DME) pen needle, diabetic [BD Ultra-Fine Shani Pen Needle] 32 gauge x 5/32 needle See Rx Instructions .ROUTE .MEDSUPPLY Qty: 50 5RF Rx Instructions: As directed ursodiol 300 mg capsule 300 mg PO BID Qty: 60 9RF (DME) lancets [OneTouch Delica Plus Lancet] 33 gauge misc See Rx Instructions .ROUTE .MEDSUPPLY Qty: 100 8RF Rx Instructions: tid albuterol sulfate 2.5 mg /3 mL (0.083 %) solution for nebulization 2.5 mg inhalation Q4-6H PRN (Reason: shortness of breath or wheezing) Qty: 180 3RF levothyroxine 175 mcg tablet 175 mcg PO DAILY Qty: 30 5RF (DME) Blood Glucose Test Strip See Rx Instructions .ROUTE .MEDSUPPLY Qty: 100 6RF Rx Instructions: test 3 times daily Changed Humulin R U-500 (Conc) Kwikpen 500 unit/mL (3 mL) insulin pen See Rx Instructions .ROUTE .COMPLEX Qty: 30 0RF Rx Instructions: 70 am 70 pm subcutaneously twice a day; Discontinued gabapentin 300 mg capsule 300 mg PO TID PRN (Reason: neuropathy) Qty: 90 0RF lisinopril 20 mg tablet 20 mg PO QDAY Referrals / Follow Up: [place] DO [Med Staff - Active Staff] - (Please follow with pulmonology on 07/08/2024, if there are any questions about your appointment please contact their office) Madeleine Benoit MD [Med Staff - Consulting] - ( -Please follow-up with nephrology upon discharge. Please call their office to schedule hospital follow-up appointment upon discharge.) Jordana Baez [place], [employer] [Primary Care Provider] - Within 1 Week Disposition Disposition (needs filled in before D/C Order can be placed): Home, Self Care
[2024-06-18 15:08] LABS: Angiotensin Convert Enzyme < 15 U/L (14-82)
--- NOTE | 2024-06-18 15:11 | DS.PCM_ITS ---
Providers Date of Admission: 06/14/24 Date of Discharge: 06/18/24 Primary Care Physician: ANAM Caputo, GAS METER MECHANIC-C Consultations 06/14/24 17:40 Consult: Nephrology Routine Consulting Provider: Madeleine Benoit Reason for Consult: CLARENCE on CKD EMERGENT Consult: No MD Notified: Yes Date Notified: 06/14/24 Time Notified: 16:40 Method of Notification: Text 06/16/24 10:04 Consult: Scientific Artist / Pulmonary Medicine Routine Consulting Provider: [place] Reason for Consult: Sarcoidosis EMERGENT Consult: No MD Notified: Yes Date Notified: 06/17/24 Time Notified: 06:38 Method of Notification: Text Comments:: Please notify in a.m. Reason For Visit: CLARENCE ON CKD HYPERCALCEMIA Diagnosis Discharge Diagnosis (1) CLARENCE (acute kidney injury): Status: Acute Code(s): N17.9 - Acute kidney failure, unspecified (2) Hypercalcemia: Status: Acute Code(s): E83.52 - Hypercalcemia Plan #Suspected sarcoidosis #Hypercalcemia suspected due to sarcoidosis # CLARENCE on CKD stage IIIb # Uncontrolled type 2 diabetes mellitus following with endocrinology # LVSD in stage I diastolic dysfunction # Hypothyroidism # SONIA # Morbid obesity # History of cirrhosis following with GI Medications at Discharge Home Medications aspirin 81 mg chewable tablet 81 mg PO DAILY@0800 [facility] 08/11/16 magnesium oxide 250 mg PO BID supplement 04/16/18 lancets 28 gauge (Easy Touch Lancets) #100 ea 02/27/20 OneTouch Verio Flex meter (blood-glucose meter) #1 ea 06/29/20 atorvastatin 20 mg tablet 20 mg PO QHS cholestoral 12/21/20 BD Insulin Syringe 1 mL 25 gauge x 5/8 (insulin syringe-needle U-100) #100 ea 05/24/21 insulin syringe-needle U-100 0.5 mL 31 gauge x 5/16 (BD Insulin Syringe Ultra- Fine) #100 ea 06/02/22 OneTouch Verio test strips (blood sugar diagnostic) #100 ea 08/25/22 scopolamine base 1 mg over 3 days transdermal patch 1 patch transdermal Q72H PRN nausea and vomiting 01/26/23 pen needle, diabetic 32 gauge x 5/32 (BD Ultra-Fine Shani Pen Needle) #100 ea 07/20/23 insulin syringe-needle U-100 1 mL 31 gauge x 5/16 (BD Insulin Syringe Ultra- Fine) #100 ea 08/31/23 pen needle, diabetic 32 gauge x 5/32 (BD Ultra-Fine Shani Pen Needle) #50 ea 08/31/23 ursodiol 300 mg capsule 300 mg PO BID #60 caps 01/04/24 nebulizer tubing kits #1 ea 02/05/24 neublizer machine #1 ea 02/05/24 lancets 33 gauge ([employer] Delica Plus Lancet) #100 ea 02/22/24 albuterol sulfate 2.5 mg/3 mL (0.083 %) solution for nebulization 2.5 mg (3 mL) inhalation Q4-6H PRN shortness of breath or wheezing #180 mL 03/15/24 levothyroxine 175 mcg tablet 175 mcg PO DAILY #30 tabs 04/02/24 cholecalciferol (vitamin D3) 25 mcg (1,000 unit) capsule (Vitamin D3) 2,000 unit PO DAILY 04/30/24 fluticasone furoate 200 mcg/actuation blister powder for inhalation (Arnuity Ellipta) 1 inh inhalation Q24H #30 ea 04/30/24 tirzepatide 10 mg/0.5 mL subcutaneous pen injector (Mounjonathanro) 10 mg subcut QWEEK 04/30/24 dapagliflozin propanediol 10 mg tablet (Farxiga) 10 mg PO QDAY #90 tabs 05/07/24 metoprolol succinate 200 mg tablet,extended release 24 hr 200 mg PO QDAY #90 tabs 05/07/24 blood sugar diagnostic (Blood Glucose Test strips) #100 ea 06/12/24 insulin regular hum U-500 conc 500 unit/mL(3 mL) subcut pen (Humulin R U-500 (Conc) Insulin Kwikpen) See Rx Instructions .Route .COMPLEX #30 mL 06/18/24 prednisone 20 mg tablet 40 mg (2 x 20 mg) PO BREAKFAST 30 days #60 tabs 06/18/24 Hospital Course Summary of Care Provided Minutes Spent on Discharge: 33 Hospital Course: #Suspected sarcoidosis #Hypercalcemia suspected due to sarcoidosis # CLARENCE on CKD stage IIIb # Uncontrolled type 2 diabetes mellitus following with endocrinology # LVSD in stage I diastolic dysfunction # Hypothyroidism # SONIA # Morbid obesity # History of cirrhosis following with GI 49-year-old male with the above presented to [facility] ED 06/14/2024 due to abnormal labs. He was sent in by his sales and marketing professional due to increased creatinine, his creatinine was 3.3 up from baseline with a calcium of 14. Patient admitted, given IV fluids and pamidronate and was seen by nephrology and pulmonology in consultation. Patient's calcium and kidney function improved and given previous biopsy results and presentation consensus was this is likely sarcoidosis. Pulmonology recommended oral prednisone and following up in the office but given patient's diabetes his public affairs specialist was contacted. A.m. glucose on 06/18 found to be 136 despite steroid administration the day before and a decreased evening long-acting insulin 60 units. Discussed with patient's public affairs specialist before discharge and discharge instructions as below. Discussed plan with patient for discharge home on 70 units twice daily of his long-acting and calling the endocrinology office tomorrow and patient agreeable. On day of discharge patient feeling well with no new or acute complaints - Your insulin regimen upon discharge will be 70 units of your long-acting twice daily -You will need to call your endocrinology office daily with your glucoses so you can be monitored closely and your insulin adjusted as needed, please call the office tomorrow -You will be discharged on 40 mg of oral prednisone which you will take until you follow-up in the pulmonology office -Please follow-up with pulmonology upon discharge on 07/08. If there are any questions or concerns about your appointment please call their office -Please follow-up with nephrology upon discharge. Please call their office to schedule hospital follow-up appointment upon discharge. -Would recommend lab work (BMP) to check your kidney function and calcium in 3-5 days through your primary care physician's office. Please call their office upon discharge to obtain order for lab work. -Your lisinopril has been held given your kidney function, please do not resume this until talking to your primary care physician or sales and marketing professional -Please call your primary care provider's office upon discharge to schedule a hospital follow up within 1 week. -For any concerning signs or symptoms please call 911 or proceed to the nearest emergency department Physical Exam Narrative General: Alert, oriented, no apparent distress HEENT: Atraumatic, normocephalic Eyes: extraocular movements grossly intact Neck: Supple Respiratory: normal respiratory effort Cardiovascular: no edema appreciated GI: nondistended Extremities: Moving all extremities Neuro: No overt focal neurological deficits Psych: Cooperative Weight / BMI Weight Weight: 226 kg Body Mass Index (BMI) 71.3 ABG / Lab / Microbiology Data 06/18/24 04:05 06/18/24 04:05 Laboratory: Laboratory Results - last 24 hr 06/15/24 05:09: Vit D 1,25-Dihydroxy 76.0 06/17/24 04:55: Angiotensin Convert Enz < 15 06/17/24 21:11: POC Glucose 236 H 06/18/24 04:05: WBC 4.2 L, RBC 3.51 L, Hgb 11.6 L, Hct 32.3 L, MCV 92.0, MCH 33.0 H, MCHC 35.9, RDW Std Deviation 53.3 H, RDW Coeff of Syed 15.9 H, Plt Count 114 L, MPV 9.2, Immature Gran % (Auto) 0.700, Neut % (Auto) 77.6 H, Lymph % (Auto) 12.2 L, [place] % (Auto) 9.1, Eos % (Auto) 0.2, Baso % (Auto) 0.2, Absolute Neuts (auto) 3.3, Absolute Lymphs (auto) 0.51 L, Nucleated RBC % 0, Sodium 131 L , Potassium 4.3, Chloride 103, Carbon Dioxide 14.2 L, Anion Gap 13, BUN 38 H, C reatinine 2.36 H, Estim Creat Clear Calc 71.08, Est GFR (MDRD) Non-Af 33 L, BUN/Creatinine Ratio 16.2, Glucose 144 H, Calcium 10.4 06/18/24 06:06: POC Glucose 136 H 06/18/24 11:17: POC Glucose 167 H D/C Instructions Discharge Diet: - (Carbohydrate consistent, cardiac diet) DC O2, CPAP, BIPAP Needs Home O2 Discharge instructions: No Meaningful Use Info Meaningful Use Meaningful Use Diagnoses (Choose all that apply): None applicable Ischemic Stroke Statin Dosing Therapy Reference: STATIN DOSE THERAPY REFERENCE: * Patients > 75 years receive moderate or high dose statin therapy. * Patients 75 years or YOUNGER should receive HIGH intensity statin dose unless contraindicated. You will be required to document reason for non-treatment if statin daily dose does not meet guidelines. HIGH DOSE STATIN THERAPY DAILY Atorvastatin > than or = to 40 mg Rosuvastatin > than or = to 20 mg Amlodipine + Atorvastatin > than or = to 2.5/40 mg Ezetimibe + Simvastatin 10/80 mg Simvastatin 80mg Discharge Plan Admission Admit Date/Time: 06/14/24 16:08 Primary Reason for Your Visit: Abnormal labs Attending Provider: Pastora Terry Primary Care Provider: Jordana Baez [facility] Consulting Providers: Madeleine Benoit; Grecia Marroquin; Nate Jackson; [place] Instructions Patient Instructions: Pulmonary Sarcoidosis Additional Instructions / Restrictions: DISCHARGE INSTRUCTIONS PLEASE READ *Please take this with you to your next doctors appointment* - Your insulin regimen upon discharge will be 70 units of your long-acting twice daily -You will need to call your endocrinology office daily with your glucoses so you can be monitored closely and your insulin adjusted as needed, please call the office tomorrow -You will be discharged on 40 mg of oral prednisone which you will take until you follow-up in the pulmonology office -Please follow-up with pulmonology upon discharge on 07/08. If there are any questions or concerns about your appointment please call their office -Please follow-up with nephrology upon discharge. Please call their office to schedule hospital follow-up appointment upon discharge. -Would recommend lab work (BMP) to check your kidney function and calcium in 3-5 days through your primary care physician's office. Please call their office upon discharge to obtain order for lab work. -Your lisinopril has been held given your kidney function, please do not resume this until talking to your primary care physician or sales and marketing professional -Please call your primary care provider's office upon discharge to schedule a hospital follow up within 1 week. -For any concerning signs or symptoms please call 911 or proceed to the nearest emergency department Discharge Orders/Prescriptions Prescriptions: New prednisone 20 mg Tablet 40 mg PO BREAKFAST 30 Days Qty: 60 0RF Continued (DME) lancets [Easy Touch Lancets] 28 gauge misc See Rx Instructions .ROUTE .MEDSUPPLY Qty: 100 6RF Rx Instructions: 3 times daily atorvastatin 20 mg tablet 20 mg PO QHS Patient Comments: TAKE 1 TABLET BY MOUTH AT BEDTIME (DME) BD Insulin Syringe 1 mL 25 gauge x 5/8 syringe See Rx Instructions .ROUTE .MEDSUPPLY Qty: 100 6RF Rx Instructions: bid scopolamine base 1 mg over 3 days patch 3 day 1 patch transdermal Q72H PRN (Reason: nausea and vomiting) (DME) nebulizer tubing kits See Rx Instructions .ROUTE .MEDSUPPLY Qty: 1 0RF Rx Instructions: [place] directed [place] [place]ubl[place] See Rx Instructions .ROUTE .MEDSUPPLY Qty: 1 0RF Rx Instructions: As directed Mounjaro 10 mg/0.5 mL pen injector 10 mg subcut QWEEK Arnuity Ellipta 200 mcg/actuation blister with device 1 inh inhalation Q24H Qty: 30 5RF metoprolol succinate 200 mg tablet extended release 24 hr 200 mg PO QDAY Qty: 90 3RF dapagliflozin propanediol [Farxiga] 10 mg tablet 10 mg PO QDAY Qty: 90 3RF aspirin 81 MG tablet,chewable 81 mg PO DAILY@0800 magnesium oxide 250 MG tablet 250 mg PO BID cholecalciferol (vitamin D3) [Vitamin D3] 25 mcg (1,000 unit) capsule 2,000 unit PO DAILY (DME) blood-glucose meter [OneTouch Verio Flex meter] [facility] [place] Rx Instructions .ROUTE .MEDSUPPLY Qty: 1 0RF Rx Instructions: As directed [place] [place] insulin syringe-needle U-100 [BD Insulin Syringe Ultra-Fine] 0.5 mL 31 gauge x 5/16 syringe See Rx Instructions .ROUTE .MEDSUPPLY Qty: 100 6RF Rx Instructions: twice daily [place] [place] OneTouch Verio test strips Strip See Rx Instructions .ROUTE .MEDSUPPLY Qty: 100 8RF Rx Instructions: tid (DME) pen needle, diabetic [BD Ultra-Fine Shani Pen Needle] 32 gauge x 5/32 needle See Rx Instructions .Route Qty: 100 5RF Rx Instructions: BID (DME) insulin syringe-needle U-100 [BD Insulin Syringe Ultra-Fine] 1 mL 31 gauge x 5/16 syringe See Rx Instructions .Route Qty: 100 4RF Rx Instructions: As directed [place] [place] pen needle, diabetic [BD Ultra-Fine Shani Pen Needle] 32 gauge x 5/32 needle See Rx Instructions .ROUTE .MEDSUPPLY Qty: 50 5RF Rx Instructions: As directed ursodiol 300 mg capsule 300 mg PO BID Qty: 60 9RF (DME) lancets [OneTouch Delica Plus Lancet] 33 gauge misc See Rx Instructions .ROUTE .MEDSUPPLY Qty: 100 8RF Rx Instructions: tid albuterol sulfate 2.5 mg /3 mL (0.083 %) solution for nebulization 2.5 mg inhalation Q4-6H PRN (Reason: shortness of breath or wheezing) Qty: 180 3RF levothyroxine 175 mcg tablet 175 mcg PO DAILY Qty: 30 5RF (DME) Blood Glucose Test Strip See Rx Instructions .ROUTE .MEDSUPPLY Qty: 100 6RF Rx Instructions: test 3 times daily Changed Humulin R U-500 (Conc) Kwikpen 500 unit/mL (3 mL) insulin pen See Rx Instructions .ROUTE .COMPLEX Qty: 30 0RF Rx Instructions: 70 am 70 pm subcutaneously twice a day; Discontinued gabapentin 300 mg capsule 300 mg PO TID PRN (Reason: neuropathy) Qty: 90 0RF lisinopril 20 mg tablet 20 mg PO QDAY Referrals / Follow Up: [place] DO [Med Staff - Active Staff] - (Please follow with pulmonology on 07/08/2024, if there are any questions about your appointment please contact their office) Madeleine Benoit MD [Med Staff - Consulting] - ( -Please follow-up with nephrology upon discharge. Please call their office to schedule hospital follow-up appointment upon discharge.) Jordana Baez, GAS METER MECHANIC-C [Primary Care Provider] - Within 1 Week Disposition Disposition (needs filled in before D/C Order can be placed): Home, Self Care Charges/Coding Visit Charges Inpatient E&M: 18424 Disch Hosp >30min
--- NOTE | 2024-06-18 15:17 | CASEMGMT ---
RN CM into pt room, pt denies any homegoing needs. Pt states he is aware to call his bell neck hammerer daily. He is aware of labs ordered. Pt to dc this date.
--- NOTE | 2024-06-18 15:47 | PHA.DC_ITS ---
Pharmacy [facility] has performed discharge medication reconciliation and counseling for this patient. The patient's discharge medication list was reviewed for discrepancies and discrepancies were resolved. The patient was counseled on the following discharge medications and changes in medications for homegoing were reviewed. The Reason for Use, instructions for use, and potential side effects were reviewed for all new medications. The patient's questions regarding all of their medications were answered. 1. Prednisone 40 PO daily The patient was able to verbally demonstrate an understanding of their discharge medications. Medications at Discharge Home Medications aspirin 81 mg chewable tablet 81 mg PO DAILY@0800 [facility] 08/11/16 magnesium oxide 250 mg PO BID supplement 04/16/18 lancets 28 gauge (Easy Touch Lancets) #100 ea 02/27/20 OneTouch Verio Flex meter (blood-glucose meter) #1 ea 06/29/20 atorvastatin 20 mg tablet 20 mg PO QHS cholestoral 12/21/20 BD Insulin Syringe 1 mL 25 gauge x 5/8 (insulin syringe-needle U-100) #100 ea 05/24/21 insulin syringe-needle U-100 0.5 mL 31 gauge x 5/16 (BD Insulin Syringe Ultra- Fine) #100 ea 06/02/22 OneTouch Verio test strips (blood sugar diagnostic) #100 ea 08/25/22 scopolamine base 1 mg over 3 days transdermal patch 1 patch transdermal Q72H PRN nausea and vomiting 01/26/23 pen needle, diabetic 32 gauge x 5/32 (BD Ultra-Fine Shani Pen Needle) #100 ea 07/20/23 insulin syringe-needle U-100 1 mL 31 gauge x 5/16 (BD Insulin Syringe Ultra- Fine) #100 ea 08/31/23 pen needle, diabetic 32 gauge x 5/32 (BD Ultra-Fine Shani Pen Needle) #50 ea 08/31/23 ursodiol 300 mg capsule 300 mg PO BID #60 caps 01/04/24 nebulizer tubing kits #1 ea 02/05/24 neublizer machine #1 ea 02/05/24 lancets 33 gauge (OneTouch Delica Plus Lancet) #100 ea 02/22/24 albuterol sulfate 2.5 mg/3 mL (0.083 %) solution for nebulization 2.5 mg (3 mL) inhalation Q4-6H PRN shortness of breath or wheezing #180 mL 03/15/24 levothyroxine 175 mcg tablet 175 mcg PO DAILY #30 tabs 04/02/24 cholecalciferol (vitamin D3) 25 mcg (1,000 unit) capsule (Vitamin D3) 2,000 unit PO DAILY 04/30/24 fluticasone furoate 200 mcg/actuation blister powder for inhalation (Arnuity Ellipta) 1 inh inhalation Q24H #30 ea 04/30/24 tirzepatide 10 mg/0.5 mL subcutaneous pen injector (Vignesh) 10 mg subcut QWEEK 04/30/24 dapagliflozin propanediol 10 mg tablet (Farxiga) 10 mg PO QDAY #90 tabs 05/07/24 metoprolol succinate 200 mg tablet,extended release 24 hr 200 mg PO QDAY #90 tabs 05/07/24 blood sugar diagnostic (Blood Glucose Test strips) #100 ea 06/12/24 insulin regular hum U-500 conc 500 unit/mL(3 mL) subcut pen (Humulin R U-500 (Conc) Insulin Kwikpen) See Rx Instructions .Route .COMPLEX #30 mL 06/18/24 prednisone 20 mg tablet 40 mg (2 x 20 mg) PO BREAKFAST 30 days #60 tabs 06/18/24
[2024-06-19 15:08] LABS: Albumin, Ur 34.2 % (.); Alpha-1-Globulin, Ur 5.5 % (.); Alpha-2-Globulins, Ur 10.1 % (.); Beta Globulin, Ur 28.3 % (.); Gamma Globulin, Ur 21.8 % (.); M-Spike, Ur % Not Observed % (Not Observed); Protein, 24Ur 728 mg/24 hr (30-150); Total Protein, Ur 18.2 mg/dL (Not Estab.)
== END 2024-06-18 16:16 | disposition home or self-care (01) | DRG 469 ==
LOC: ED 16:16 → MS3 16:35
PROVIDERS: Internal Medicine; Internal Medicine Critical Care Medicine; Internal Medicine Nephrology; Admitting Provider Student in an Organized Health Care Education/Training Program; Emergency Provider Emergency Medicine; PCP Nurse Practitioner Family; Visit Provider Internal Medicine
DX: N17.9 Acute kidney failure, unspecified (principal); D69.6 Thrombocytopenia, unspecified; I13.0 Hypertensive heart and chronic kidney disease with heart failure and stage 1 through stage 4 chronic kidney disease, or unspecified chronic kidney disease; Z68.45 Body mass index [BMI] 70 or greater, adult; N18.31 Chronic kidney disease, stage 3a; K75.81 Nonalcoholic steatohepatitis (NASH); E11.65 Type 2 diabetes mellitus with hyperglycemia; E03.9 Hypothyroidism, unspecified; E11.22 Type 2 diabetes mellitus with diabetic chronic kidney disease; N18.32 Chronic kidney disease, stage 3b; J84.10 Pulmonary fibrosis, unspecified; I50.40 Unspecified combined systolic (congestive) and diastolic (congestive) heart failure; D86.9 Sarcoidosis, unspecified; I42.9 Cardiomyopathy, unspecified; Z79.4 Long term (current) use of insulin; E78.5 Hyperlipidemia, unspecified; E83.52 Hypercalcemia; G47.33 Obstructive sleep apnea (adult) (pediatric); L92.2 Granuloma faciale [eosinophilic granuloma of skin]; E66.813 Obesity, class 3; Z79.890 Hormone replacement therapy; Z79.85 Long-term (current) use of injectable non-insulin antidiabetic drugs; Z87.891 Personal history of nicotine dependence; Z79.84 Long term (current) use of oral hypoglycemic drugs; Z86.16 Personal history of COVID-19; Z99.89 Dependence on other enabling machines and devices; R91.1 Solitary pulmonary nodule; Z79.899 Other long term (current) drug therapy
CPT/HCPCS: 36415; 74176; 80048; 80053; 80076; 81001; 82164; 82306; 82330; 82652; 82962; 83735; 84100; 84166; 85025; 86335; 93005; 94640; 97161; 97165; 99285; J2430; A4216

== ENCOUNTER → 2024-06-24 | Outpatient (CLI) | payer MEDICAID, SELFPAY ==
[2024-06-24 13:18] LABS: Anion Gap 13 (5-15); BUN 47 mg/dL (4-19); BUN/Creat Ratio 22.7 RATIO (10-20); Calcium,Total 9.6 mg/dL (7.6-11.0); Carbon Dioxide 17.2 mmol/L (21.0-32.0); Chloride 100 mmol/L (98-108); Creatinine, Serum 2.06 mg/dL (0.70-1.20); EST Glomerular Filtration Rate 39 (>60); Glucose 106 mg/dL (70-99); Potassium 4.4 mmol/L (3.3-5.1); Sodium Level 131 mmol/L (133-145)
== END | disposition home or self-care (01) ==
LOC: VSLAB 09:08
PROVIDERS: PCP Nurse Practitioner Family; Visit Provider Nurse Practitioner Family
DX: E83.52 Hypercalcemia (principal)
CPT/HCPCS: 36415; 80048

== ENCOUNTER → 2024-07-08 | Outpatient (CLI) | payer MEDICAID, SELFPAY ==
--- NOTE | 2024-07-08 13:00 | CT_ITS ---
PROCEDURE: CHEST WITHOUT CONTRAST 07/08/2024 REASON FOR EXAM: RIGHT MIDDLE LOBE PULMONARY NODULE TECHNIQUE: Chest CT without contrast. Coronal and Sagittal reconstruction series were provided. One or more dose reduction techniques were used (e.g., Automated exposure control, adjustment of the mA and/or kV according to patient size, use of iterative reconstruction technique COMPARISON: CT of the abdomen pelvis 06/14/2024 FINDINGS: Hardware: None Lymph nodes: Unremarkable. Heart and Vasculature: No cardiomegaly. No thoracic aortic aneurysm. Coronary Artery Calcifications: Absent Lungs and Airways: Bilateral patchy ground-glass densities consistent with subsegmental atelectasis or pneumonitis. 10 mm noncalcified nodule in the inferior right upper lobe of the lungs on image 43. 6 mm noncalcified nodule in the anterior right lower lobe of the lungs on image 47. 6 mm noncalcified nodule in the periphery of the right lower lobe of the lungs on image 68. Pleura: No pleural effusion. Upper Abdomen: Splenomegaly. Bones: Unremarkable. CT/Chest without Contrast IMPRESSION: Coronary artery calcification (CAC) is is absent Bilateral subsegmental atelectasis or pneumonitis. Multiple small pulmonary nodules. Correlation with PET-CT scan would be useful . Follow-up CT of the chest is recommended in 6 months document stability. Splenomegaly. Reading Location: [id number]
== END | disposition home or self-care (01) ==
LOC: CT 12:59
PROVIDERS: PCP Nurse Practitioner Family; Referring Provider Nurse Practitioner Family; Visit Provider Nurse Practitioner Family
DX: R91.1 Solitary pulmonary nodule (principal)
CPT/HCPCS: 71250

== ENCOUNTER → 2024-07-16 | Outpatient (CLI) | payer MEDICAID, SELFPAY ==
[2024-07-16 13:09] LABS: Anion Gap 12 (5-15); BUN 40 mg/dL (4-19); BUN/Creat Ratio 25.7 RATIO (10-20); Calcium,Total 9.2 mg/dL (7.6-11.0); Carbon Dioxide 17.4 mmol/L (21.0-32.0); Chloride 104 mmol/L (98-108); Creatinine, Serum 1.56 mg/dL (0.70-1.20); EST Glomerular Filtration Rate 54 (>60); Glucose 223 mg/dL (70-99); Potassium 3.8 mmol/L (3.3-5.1); Sodium Level 134 mmol/L (133-145)
[2024-07-16 13:36] LABS: Protein, Urine (Random) 53.4 mg/dL (0.0-12.0); Protein:Creat Ratio 767 mg/g CRE (0-200)
== END | disposition home or self-care (01) ==
LOC: LAB 11:11
PROVIDERS: PCP Nurse Practitioner Family; Referring Provider Internal Medicine Nephrology; Visit Provider Internal Medicine Nephrology
DX: N18.32 Chronic kidney disease, stage 3b (principal)
CPT/HCPCS: 36415; 80048; 82570; 84156

== ENCOUNTER → 2024-10-31 | Outpatient (CLI) | payer MEDICAID, SELFPAY ==
[2024-10-31 14:07] LABS: Anion Gap 15 (5-15); BUN 30 mg/dL (4-19); BUN/Creat Ratio 21.3 RATIO (10-20); Calcium,Total 9.8 mg/dL (7.6-11.0); Carbon Dioxide 20.4 mmol/L (21.0-32.0); Chloride 101 mmol/L (98-108); Glucose 180 mg/dL (70-99); Potassium 3.8 mmol/L (3.3-5.1)
[2024-10-31 18:41] LABS: Creatinine, Urine (random) 92.00 mg/dL (39.00-259.00); Protein, Urine (Random) 139.0 mg/dL (0.0-12.0); Protein:Creat Ratio 1511 mg/g CRE (0-200)
== END | disposition home or self-care (01) ==
LOC: LAB 12:03
PROVIDERS: PCP Nurse Practitioner Family; Referring Provider Internal Medicine Nephrology; Visit Provider Internal Medicine Nephrology
DX: N18.32 Chronic kidney disease, stage 3b (principal)
CPT/HCPCS: 36415; 80048; 82570; 84156

== ENCOUNTER → 2024-11-08 | Outpatient (CLI) | payer MEDICAID, SELFPAY ==
--- OUTSIDE RECORDS SUMMARY | 2024-11-08 06:46 | XMS RPT_ITS | CCD ---
Author Organization [facility] Care Team Providers Care Plastic Boat Patcher Name Role Phone RUSTY THAKKAR Unavailable Unavailable CORRECT INFO, NEEDED Unavailable Unavailable UNKNOWN, PCP Unavailable Unavailable Alessio Tabares Unavailable Unavailable RUSTY THAKKAR Unavailable Unavailable CLEMENTINA AVILA Unavailable Unavailable KOSOVICH, LYUBOV Unavailable Unavailable UNKNOWN, PCP Unavailable Unavailable KOSOVICH, LYUBOV Unavailable Unavailable UNKNOWN, PCP Unavailable Unavailable HURVERONA MALIN Unavailable Unavailable UNKNOWN, PCP Unavailable Unavailable GAGARIN, ALANA Unavailable Unavailable MCCONNELL, SKYLAR K. Unavailable Unavailable SWIHART, JACOB L Unavailable Unavailable SWIHART, JACOB L Unavailable Unavailable KAMEL, SAMEH S. Unavailable Unavailable KAMEL, SAMEH S. Unavailable Unavailable SWIHART, JACOB L Unavailable Unavailable [facility] Primary Care Pro vider Dr. Scott Gacria Emergency Provider Dr. Parvez sánchez Admit Provider Dr. Parvez Frias Attending Provider Dr. Parvez Frias Other Provider Dr. Renee Dunbar Attending Provider Dr. Renee Dunbar Other Provider [facility] Referring Provid er Dr. Artemio Faustin Attending Provider [phone] [place] [address] Primary Care Pro vider MARILY Flowers-C Cherelle Referring Provider MARILY Flowers-C Cherelle Other Provider [phone] Jakob Patton Attending Provider Mackenzie TEACHER OF THE SIGHT IMPAIRED, TEACHER OF THE SIGHT IMPAIRED-C Ayana Attending Provider Camille Pierre (Historical) Primary Care Provi tala Friend, Dr. Dent Attending Provider [phone] [facility] [place] Primary Care Pro vider [facility] [place] Referring Provid er Dr. Lake Strauss Attending Provider [facility] [place] Primary Care Pro vider FlowersMARILY-C Cherelle Referring Provider GUSTAVO Lee Attending Provider [facility] [place] Primary Care Pro vider FlowersMARILY-C Cherelle Referring Provider [facility] [place] Primary Care Pro vider [facility] [place] Referring Provid er GUSTAVO Lee Attending Provider Friend, Dr. Dent Attending Provider [phone] [facility] [place] Primary Care Pro vider GUSTAVO Lee Attending Provider [facility] [place] Referring Provid er Friend, Dr. Dent Attending Provider [phone] FriendDr. Dent Other Provider [facility] [place] Primary Care Pro vider [facility] [place] Referring Provid er [facility] [place] Primary Care Pro vider [facility] [place] Referring Provid er FriendDr. Dent Attending Provider Mackenzie TEACHER OF THE SIGHT IMPAIRED, TEACHER OF THE SIGHT IMPAIRED-C Ayana Attending Provider [phone] GUSTAVO Lee Attending Provider Unavailable Primary Care Provider Unavailabl e MISSY GUZMAN Referring Unavailable MAURISIO KING Attending Unavailable MAURISIO KING Attending Unavailable MAURISIO KING Referring Unavailable FRIENDMISSY Referring Unavailable MAURISIO KING Attending Unavailable [facility] [place] Primary Care Pro vider [facility] [place] Referring Provid er Friend, Dr. Dent Attending Provider [phone] FriendDr. Dent Other Provider [phone] [facility] [place] Primary Care Pro vider [facility] [place] Referring Provid er [facility], Dr. Dent Attending Provider GUSTAVO Lee Attending Provider [facility] [place] Primary Care Pro vider [facility] [place] Referring Provid er FriendDr. Dent Attending Provider [phone] [facility] [place] Primary Care Pro vider [facility] [place] Referring Provid er GUSTAVO Lee Attending Provider FriendDr. Dent Attending Provider [phone] [facility] [place] Primary Care Pro vider [facility] [place] Referring Provid er GUSTAVO Lee Attending Provider Nestor CALIXTO-Jordana Bruno Primary Care Provider Swapna Parker Attending Provider Swpana Parker Referring Provider Reddy CALIXTO-Swapna Bruno Other Provider [phone] Dr. Lake Strauss DO Attending Provider Jordana Mcmahon Referring Provider Alissa BLANKENSHIP, Dr. Thacker Attending Provider Jesus TEACHER OF THE SIGHT IMPAIRED-C, Emy Attending Provider Jesus CALIXTO-C, Emy Referring Provider Duke ADORNO, Dr. Dent Attending Provider Duke ADORNO, Dr. Dent Referring Provider Alissa BLANKENSHIP, Dr. Thacker Referring Provider Shannon ADORNO, Dr. Watts Emergency Provider [phone] Lopez BLANKENSHIP, Dr. Grecia Cortes Admit Provider Lopez BLANKENSHIP, Dr. Grecia Cortes Attending Provider Lopez BLANKENSHIP, Dr. Grecia Cortes Other Provider Cy BLANKENSHIP, Dr. Salvador Other Provider Harrison BLANKENSHIP, Dr. Guillory Attending Provider Renetta BLANKENSHIP, Dr. Sullivan Other Provider Unavailable Carlos A ADORNO, Dr. Bethea Other Provider Renetta BLANKENSHIP, Dr. Sullivan Attending Provider Unavaila ble Harrison BLANKENSHIP, Dr. Guillory Other Provider Nestor TE[employer]ER OF THE S[employer] IMPAIRED-C, Jordana Primary Care Provider [phone] Reddy TEACHER OF THE S[employer] IMPAIRED-C, Swapna Grey Attending Provider Reddy TEACHER OF THE SIGHT IMPAIRED-C, Swapna Grey Referring Provider Harrison BLANKENSHIP, Dr. Guillory Referring Provider Dr. Lake Strauss DO Attending Provider Rowan TEACHER OF THE SIGHT IMPAIRED-CMarce Attending Provider Nestor TEACHER OF THE SIGHT IMPAIRED-C, Jordana Primary Care Provider [phone] Reddy TEACHER OF THE SIGHT IMPAIRED-C, Swapna Grey Attending Provider Reddy TEACHER OF THE SIGHT IMPAIRED-C, Swapna Grey Referring Provider Alissa BLANKENSHIP, Dr. Thacker Attending Provider Jesus TEACHER OF THE SIGHT IMPAIRED-C, Emy Attending Provider Jesus TEACHER OF THE SIGHT IMPAIRED-C, Emy Referring Provider Nestor TEACHER OF THE SIGHT IMPAIRED-C, Jordana Referring Provider Duke ADORNO, Dr. Dent Attending Provider Duke ADORNO, Dr. Dent Referring Provider Alissa BLANKENSHIP, Dr. Thacker Referring Provider Shannon ADORNO, Dr. Watts Emergency Provider [phone] Lopez BLANKENSHIP, Dr. Grecia Cortes Admit Provider Lopez BLANKENSHIP, Dr. Grecia Cortes Other Provider Cy BLANKENSHIP, Dr. Salvador Other Provider Harrison BLANKENSHIP, Dr. Guillory Attending Provider Renetta BLANKENSHIP, Dr. Sullivan Other Provider Unavailable Carlos A ADORNO, Dr. Bethea Other Provider Renetta BLANKENSHIP, Dr. Sullivan Attending Provider Unavaila ble Harrison BLANKENSHIP, Dr. Guillory Other Provider Harrison BLANKENSHIP, Dr. Guillory Referring Provider Carlos A ADORNO, Dr. Bethea Attending Provider [phone] Rowan TEACHER OF THE SIGHT IMPAIRED-CMarce Attending Provider Cy BLANKENSHIP, Dr. Salvador Attending Provider Cy BLANKENSHIP, Dr. Salvador Referring Provider Nestor TEACHER OF THE SIGHT IMPAIRED-C, Jordana Primary Care Provider Jesus TEACHER OF THE SIGHT IMPAIRED-CEmy Attending Provider Reddy CALIXTO-CSwapna Attending Provider Alissa BLANKENSHIP, Dr. Thacker Attending Provider Reddy TEACHER OF THE SIGHT IMPAIRED-CSwapna Referring Provider Nestor TEACHER OF THE SIGHT IMPAIRED-C, Jordana Primary Care Provider Nestor TEACHER OF THE SIGHT IMPAIRED-C, Jordana Referring Provider Jesus TEACHER OF THE SIGHT IMPAIRED-CEmy Attending Provider Reddy TEACHER OF THE SIGHT IMPAIRED-CSwapna Attending Provider Alissa BLANKENSHIP, Dr. Thacker Attending Provider Reddy CALIXTO-CSwapna Referring Provider Cy BLANKENSHIP, Dr. Salvador Attending Provider Cy BLANKENSHIP, Dr. Salvador Referring Provider Joseph TEACHER OF THE SIGHT IMPAIRED-C, Crystal Attending Provider Nestor TEACHER OF THE SIGHT IMPAIRED-C, [facility] Primary Care Provider Alissa BLANKENSHIP, Dr. Thacker Attending Provider Reddy TEACHER OF THE SIGHT IMPAIRED-CSwapna Attending Provider Reddy TEACHER OF THE SIGHT IMPAIRED-CSwapna Referring Provider Nestor TEACHER OF THE SIGHT IMPAIRED-C, [facility] Referring Provider Jesus TEACHER OF THE SIGHT IMPAIRED-CEmy Attending Provider Camille Pierre (Historical) Primary Care Provi tala Unavailable KIRSTIE MAXWELL Referring Unavailable Jacob TEACHER OF THE SIGHT IMPAIRED-CYvette Attending Provider [phone] Nestor TEACHER OF THE SIGHT IMPAIRED-C, [facility] Primary Care Provider Alissa BLANKENSHIP, Dr. Thacker Attending Provider Nestor TEACHER OF THE SIGHT IMPAIRED-C, [facility] Primary Care Provider Reddy CALIXTO-CSwapna Attending Provider [facility], [facility] Primary Care Unavailabl e Emy Lee Referring Unavailable Emy Lee Attending Unavailable [facility], [facility] Primary Care Unavailabl e [facility], [facility] Referring Unavailabl e Missy Guzman Attending Unavailable [facility], [facility] Primary Care Unavailabl e AlissaKirstie molina Attending Unavailable Swapna Blakely Attending Unavailable Swapna Blakely Referring Unavailable Nestor [facility], [facility] Primary Care Unavailabl e Nestor [facility], [facility] Primary Care Unavailabl e AlissaKirstie molina Referring Unavailable Kirstie Maxwell Attending Unavailable [facility], [facility] Unavailabl e Swapna Blakely Attending Unavailable [facility], [facility] Referring Unavailabl e Swapna Blakely Attending Unavailable [facility], [facility] Unavailabl e [facility], [facility] Referring Unavailabl e [facility], [facility] Unavailabl e Crystal Ruiz Attending Unavailable [facility], [facility] Referring Unavailabl e Koram, Grecia Sophia Admitting Unavailable [facility], [facility] Unavailabl e Pastora Terry Attending Unavailable Cy, Jayaprakas Consulting Unavailable Lopez, Grecia Sophia Consulting Unavailable Hipolito Jackson Consulting Unavailable [place] Strauss Consulting Unavailable Pastora Terry Consulting Unavailable Lopez Grecia Sophia Attending Unavailable Hipolito Jackson Attending Unavailable Swapna Blakely Referring Unavailable [facility], [facility] Unavailabl e AlissaKirstie molina Attending Unavailable [facility], [facility] Unavailabl e Cy, Jayaprakas Referring Unavailable Cy, Jayaprakas Attending Unavailable Koram, Grecia Sophia Admitting Unavailable [facility], [facility] Unavailabl e Cy, Jayaprakas Consulting Unavailable Pastora Terry Attending Unavailable Lopez, Grecia Sophia Consulting Unavailable Hipolito Jackson Consulting Unavailable [place] Strauss Consulting Unavailable [facility], [facility] Unavailabl e Cy, Jayaprakas Referring Unavailable Cy Jayaprakas Attending Unavailable [facility], [facility] Unavailabl e Kirstie Maxwell Attending Unavailable Kirstie Maxwell Referring Unavailable Swapna Blakely Consulting Unavailable Swapna Blakely Referring Unavailable [facility], [facility] UnavailLake Valdez Attending Unavailable Lake Strauss Attending Unavailable Swapna Blakely Attending Unavailable [facility], [facility] Unavailabl e [facility], [facility] Referring Unavailabl e Swapna Blakely Attending Unavailable Swapna Blakely Referring Unavailable [facility], [facility] UnavailSwapna Stoddard Attending Unavailable [facility], [facility] Care Unavailabl e [facility], [facility] Referring Unavailabl e Nestor [facility], Jordana Primary Care Unavailabl e Nestor [facility], [facility] Referring Unavailabl e Jacob TEACHER OF THE SIGHT IMPAIRED, Yvette Attending Unavailable Swapna Blakely Attending Unavailable [facility], [facility] Primary [facility] Unavailabl e [facility], [facility] Referring Unavailabl e Swapna Blakely Attending Unavailable [facility], [facility] Unavailabl e Nestor [facility], [facility] Referring Unavailabl e Jacob TEACHER OF THE S[employer] IMPAIRED, Yvette Referring Unavailable [facility], [facility] Primary Care Unavailabl e Jacob TEACHER OF THE SIGHT IMPAIRED, Yvette Attending Unavailable [facility], [facility] Primary Care Unavailabl e Marce Donahue Attending Unavailable [facility], [facility] Unavailabl e Missy Guzman Attending Unavailable Missy Guzman Referring Unavailable [facility], [facility] Unavailabl e Mackenzie CALIXTO, Ayana Attending Unavailable Ayana Mann NP Referring Unavailable Swapna Blakely Attending Unavailable [facility], [facility] Unavailstewart e Swapna Blakely Attending Unavailable Swapna Blakely Referring Unavailable [facility], [facility] Unavailabl e Swapna Blakely Referring Unavailable Swapna Blakely Attending Unavailable [facility], [facility] Primary [facility] Unavailabl e Swapna Blakely Attending Unavailable [facility], [facility] Primary [facility] Unavailabl e [facility], [facility] Referring Unavailabl e Nestor [facility], [facility] Care Unavailabl e Kirstie Maxwell Attending Unavailable Kirstie Maxwell Referring Unavailable [facility], [facility] Unavailabl e Nestor [facility], [facility] Referring Unavailabl Emy Spann Attending Unavailable [facility], [facility] Primary Care Unavailabl e Nestor [facility], [facility] Referring UnavailEmy Chopra Attending Unavailable [facility], [facility] Primary Care Unavailabl e [facility] [place] Referring Unavailable Missy Guzman Attending Unavailable [facility], [facility] Primary [facility] Unavailabl e Kirstie Maxwell Attending Unavailable [facility], [facility] Referring UnavailEmy Chopra Attending Unavailable [facility], [facility] Primary Care Unavailabl e Nestor [facility], [facility] Referring Unavailabl Lake Evans Attending Unavailable Pastora Terry Referring Unavailable Swapna Blakely Attending Unavailable Swapna Blakely Referring Unavailable [facility], [facility] [address] [facility], [facility] UnavailEmy Chopra Consulting Unavailable Friend, Misys Referring Unavailable Friend, Missy Attending Unavailable Allergies Allergy Classification Reported Allergen(s) Allergy Type Date of Onset Reaction(s) Facility (20 sources) marylou; Translations: [wool] Propensity to adverse reactions 05-24-2021 [facility] Medications Current Medications Medication Drug Class(es) Dates Sig (Normalized) Sig (Original) Albuterol Sulfate 2.5 mg /3 mL (0.083 %) solution for nebulization (9 sources) Start: 03-15-2024 take 2.5 mg by inhalation every four to six hours as needed for wheezing Albuterol Sulfate 2.5 mg /3 mL (0.083 %) solution for nebulization Active 2.5 mg INHALATION EVERY 4-6 HOURS as needed for shortness of breath or wheezing 180 March 15, 2024 1:00am Start: 03-15-2024 take 2.5 mg by inhal ation every four to six hours as needed for wheezing Albuterol Sulfate 2.5 mg /3 mL (0.083 %) solution for nebulization Active 2.5 mg INHALATION EVERY 4-6 HOURS as needed for shortness of breath or wheezing 180 March 15, 2024 1:00am aspirin 81 mg chewable tablet (20 sources) Platelet Aggregation Inhibitor, Nonsteroidal Anti-inflammatory Drug Start: 08-11-2016 take 1 tablet by mouth once daily Aspirin 81 MG tablet,chewable Active 81 mg PO DAILY@0800 August 11, 2016 12:00am I Do [facility] take 1 tablet by mouth once patrica y aspirin, enteric coated (ASPIRIN, ENTERIC COATED) 81 mg EC tablet Take 81 mg by mouth once daily. Active Comment on above: Take 81 mg by mouth once daily. atorvastatin 20 mg oral tablet (20 sources) HMG-CoA Reductase Inhibitor Start: take 1 tablet by mouth once daily Atorvastatin (Lipitor) 20 mg tablet Active 20 mg PO daily October 11, 2024 12:00am Start: 12-21-2020 End: 07-10-2024 take 1 tablet by mouth at bedtime Atorvastatin 20 mg tablet Discontinued 20 mg PO AT BEDTIME December 21, 2020 12:00am July 10, 2024 1:07pm cholestoral Comment on above: Take 20 mg by mouth daily at bedtime. 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 As directed Start: 08-12-2024 Blood-Glucose Meter (Blood Glucose Monitoring) kit Active 0 .Route 1 August 12, 2024 12:00am As directed Blood-Glucose Meter (Onetouc h Verio Flex Meter) misc (20 sources) Start: 06-29-2020 Blood-Glucose Meter (Onetouch Verio Flex Meter) misc Active 0 .ROUTE .MEDSUPPLY 1 June 29, 2020 2:20pm As directed Start: 06-29-2020 Blood-Glucose Meter (Onetouch Verio Flex Meter) misc Active 0 .ROUTE .MEDSUPPLY 1 0 June 29, 2020 12:00am As directed Start: 06-29-2020 Blood-Glucose Meter (Onetouch Verio Flex Meter) misc Active 0 .ROUTE .MEDSUPPLY 1 June 28, 2020 11:00pm As directed Start: 06-29-2020 Blood-Glucose Meter (Onetouch Verio Flex Meter) misc Active 0 .ROUTE .MEDSUPPLY 1 June 29, 2020 12:00am As directed Xypwznpkkq-Mmfpussn-Swuyopsm ol (11 sources) Corticosteroid, beta2-Adrenergic Agonist Start: 05-24-2021 Dukgjlxwuy-Poqgsixw-Micgyckl ol (Breztri Aerosphere) 160-9-4.8 mcg/actuation HFA aerosol inhaler Active 2 INH INHALATION TWICE A DAY May 24, 2021 11:45am Start: 05-24-2021 Budesonide-Gly copyr-Formoterol (Breztri Aerosphere) 160-9-4.8 mcg/actuation HFA aerosol inhaler Active 2 INH INHALATION TWICE A DAY May 23, 2021 11:00pm Start: 05-24-2021 Budesonide-Gly copyr-Formoterol (Breztri Aerosphere) 160-9-4.8 mcg/actuation HFA aerosol inhaler Active 2 INH INHALATION TWICE A DAY May 24, 2021 12:00am dapagliflozin 10 mg oral tablet (12 sources) Sodium-Glucose Cotransporter 2 Inhibitor Start: 05-07-2024 take 1 tablet by mouth once daily Dapagliflozin Propanediol (Farxiga) 10 mg tablet Active 10 mg PO daily May 07, 2024 1:00am dexamethasone 2 mg oral tablet (11 sources) Corticosteroid Start: 02-10-2021 take 6 mg by mouth once daily Dexamethasone Active 6 MG PO DAILY February 10, 2021 12:00am start on 02/11/21 diclofenac sodium 0.01 mg/mg topical gel (14 sources) Nonsteroidal Anti-inflammatory Drug Start: 12-21-2020 apply 1 g topically twice daily as needed Diclofenac Sodium Active 1 G TOPICAL TWICE DAILY NEEDED December 20, 2020 11:00pm apply to lower back and knees Fluticasone Furoate (13 sources) Corticosteroid Start: 11-05-2024 take 200 ug by inhalation every twenty-four hours Fluticasone Furoate (Arnuity Ellipta) 200 mcg/actuation blister with device Active 1 NMA INHALATION Q24H 30 November 05, 2024 4:10pm Start: 04-30-2024 End: 11-05-2024 take 200 ug by inhalation every twenty-four hours Fluticasone Furoate (Arnuity Ellipta) 200 mcg/actuation blister with device Discontinued 1 NMA INHALATION Q24H 30 April 30, 2024 1:00am November 05, 2024 4:10pm Start: 04-30-2024 take 200 ug by inhal ation every twenty-four hours Fluticasone Furoate (Arnuity Ellipta) 200 mcg/actuation blister with device Active 1 NMA INHALATION Q24H 30 April 30, 2024 1:00am Start: 04-30-2024 Start: 04-30-2024 take 200 ug by inhal ation every twenty-four hours Fluticasone Furoate (Arnuity Ellipta) 200 mcg/actuation blister with device Active 1 NMA INHALATION Q24H April 30, 2024 1:00am 3 ml insulin, regular, human 500 unt/ml pen injector (20 sources) Insulin Start: 06-18-2024 Insulin Regula r Hum U-500 Conc (Humulin R U-500 (Conc) Kwikpen) 500 unit/mL (3 mL) insulin pen Active 0 .ROUTE .COMPLEX 30 0 June 18, 2024 3:10pm 70 am 70 pm subcutaneously twice a day; Start: 10-05-2023 End: 06-18-2024 Insulin Regular Hum U-500 Co nc (Humulin R U-500 (Conc) Kwikpen) 500 unit/mL (3 mL) insulin pen Discontinued 0 SC TWICE A DAY 28 05May 29, 2024 8:14am June 14, 2024 3:36pm Diabetes mellitus Type 2 diabetes mellitus with hyperglycemia jail (current) use of insulin 55-65 am 180 pm subcutaneously twice a day; Start: 09-21-2023 End: 10-05-2023 Insulin Regular Hum U-500 Co nc (Humulin R U-500 (Conc) Kwikpen) 500 unit/mL (3 mL) insulin pen Discontinued 170 U SC .with supper 12 September 21, 2023 12:00am October 05, 2023 3:04pm Start: 09-21-2023 End: 06-18-2024 Magnesium (5 sources) take 1 tablet by ewa th once daily Magnesium 250 mg tab Take 250 mg by mouth once daily. Active take 250 mg by mouth once daily MAGNESIUM PO Take 250 mg by mouth daily. 0 Active take 1 tablet by mouth once patrica y Magnesium 250 mg tab Take 250 mg by mouth once daily. 0 Active Comment on above: Take 250 mg by mouth once daily. magnesium oxide 250 mg oral tablet (20 sources) Start: 04-16-2018 take 1 tablet by mouth twice daily Magnesium Oxide 250 MG tablet Active 250 mg PO TWICE A DAY April 16, 2018 1:00am supplement Start: 04-16-2018 take 250 mg by mouth three times daily at mealtime Magnesium Oxide Active 250 MG PO 3 TIMES DAILY WITH MEALS April 16, 2018 1:00am 24 hr metoprolol succinate 200 mg extended release oral tablet (20 sources) beta-Adrenergic Helen Start: 05-07-2024 take 1 tablet by mouth once daily Metoprolol Succinate 200 mg tablet extended release 24 hr Active 200 mg PO daily 90 May 07, 2024 1:00am Start: 01-18-2016 End: 05-07-2024 take 1 tablet by mouth twice daily Metoprolol Tartrate 50 mg tablet Discontinued 50 mg PO TWICE A DAY 180 October 01, 2020 1:23pm May 07, 2024 4:04pm blood pressure Comment on above: twice daily. montelukast 10 mg oral tablet (2 sources) Leukotriene Receptor Antagonist Start: take 1 tablet by mouth once daily Montelukast (Singulair) 10 mg tablet Active 10 mg PO daily 90 October 15, 2024 12:00am Mounjaro 7.5 MG/0.5ML Solution Pen-injector (1 source) Start: 3 Mounjaro 7.5 MG/0.5ML Solution Pen-injector nebulizer tubing kits (9 sources) Start: 4 nebulizer tubing kits Active 0 .ROUTE .MEDSUPPLY 1 0 February 05, 2024 1:00am Obstructive sleep apnea syndrome Stage 3 severe COPD by GOLD classification Obstructive sleep apnea (adult) (pediatric) Chronic obstructive pulmonary disease, unspecified As directed Start: 02-05-2024 nebulizer tubi ng kits Active 0 .ROUTE .MEDSUPPLY February 05, 2024 1:00am As directed neublizer machine (9 sources) Start: 02-05-2024 neublizer mach ine Active 0 .ROUTE .MEDSUPPLY 1 0 February 05, 2024 1:00am Obstructive sleep apnea syndrome Stage 3 severe COPD by GOLD classification Obstructive sleep apnea (adult) (pediatric) Chronic obstructive pulmonary disease, unspecified As directed Start: 02-05-2024 neublizer mach ine Active 0 .ROUTE .MEDSUPPLY February 05, 2024 1:00am As directed 72 hr scopolamine 0.0139 mg/hr transdermal system (20 sources) Anticholinergic Start: 12-12-2022 End: 01-26-2023 Scopolamine Base 1 mg over 3 days patch 3 day Active 1 NMA TD Q72H as needed for nausea and vomiting January 26, 2023 11:50am Start: 12-12-2022 End: 01-26-2023 Start: 12-12-2022 End: 01-26-2023 Scopolamine Base Active 1 PA TCH TD Q72H January 26, 2023 11:50am Tirzepatide (Mounjaro) 12.5 mg/0.5 mL pen injector (20 sources) Start: 07-11-2024 Tirzepatide (M ounjaro) 12.5 mg/0.5 mL pen injector Active 12.5 mg SC EVERY WEEK 2 July 11, 2024 12:00am Diabetes mellitus Type 2 diabetes mellitus with hyperglycemia jail (current) use of insulin Start: 07-11-2024 Tirzepatide (M ounjaro) 12.5 mg/0.5 mL pen injector Active 12.5 mg SC EVERY WEEK July 11, 2024 12:00am Start: 09-16-2022 End: 01-26-2023 Tirzepatide (Mounjaro) 12.5 mg/0.5 mL pen injector Discontinued 12.5 mg SC EVERY WEEK 2 September 16, 2022 12:00am January 26, 2023 12:06pm Start: 09-16-2022 End: 01-26-2023 Tirzepatide (Mounjaro) 12.5 mg/0.5 mL pen injector Discontinued 12.5 mg SC EVERY WEEK 2 September 16, 2022 12:00am January 26, 2023 12:06pm Start: 09-16-2022 End: 01-26-2023 Tirzepatide (Mounjaro) 12.5 mg/0.5 mL pen injector Discontinued 12.5 MG SC EVERY WEEK 2 September 16, 2022 12:00am January 26, 2023 12:06pm Start: 09-16-2022 End: 01-26-2023 Tirzepatide (Mounjaro) 12.5 mg/0.5 mL pen injector Discontinued 12.5 MG SC EVERY WEEK September 15, 2022 11:00pm January 26, 2023 11:06am Start: 09-16-2022 Tirzepatide (M ounjaro) 12.5 mg/0.5 mL pen injector Active 12.5 MG SC EVERY WEEK September 16, 2022 12:00am TRULICITY 4.5 mg/0.5 mL pen injector (4 sources) Start: 08-16-2021 TRULICITY 4.5 mg/0.5 mL pen injector one time a week. 08/16/2021 Active Start: 08-16-2021 TRULICITY 4.5 mg/0.5 mL pen injector one time a week. 0 08/16/2021 Active Comment on above: one time a week. (20 sources) Start: 07-11-2024 Start: 07-11-2024 Start: 2024 Start: 04-30-2024 End: 07-11-2024 Start: 04-29-2024 End: 04-30-2024 Start: 04-24-2024 End: 04-29-2024 Start: 03-15-2024 Start: 02-22-2024 Start: 02-12-2024 End: 04-24-2024 Start: 02-05-2024 Start: 01-15-2024 End: 02-12-2024 Start: 08-31-2023 Start: 08-22-2023 End: 01-15-2024 Start: 08-14-2023 End: 2024 Start: 07-20-2023 Start: 01-26-2023 End: 08-22-2023 Start: 12-05-2022 End: 02-22-2024 Start: 09-16-2022 End: 01-26-2023 Start: 08-25-2022 End: 07-11-2024 Start: 08-19-2022 End: 09-16-2022 Start: 06-02-2022 Start: 06-01-2022 End: 07-20-2023 Start: 03-24-2022 End: 08-19-2022 Start: 02-14-2022 End: 03-24-2022 Start: 12-20-2021 End: 02-14-2022 Start: 08-11-2021 End: 08-25-2022 Start: 08-11-2021 End: 12-05-2022 Start: 05-24-2021 Start: 01-21-2021 End: 06-02-2022 Start: 06-29-2020 Start: 06-29-2020 End: 08-11-2021 Start: 02-28-2020 End: 01-21-2021 Start: 02-27-2020 Start: 11-28-2019 End: 08-14-2023 Start: 05-06-2019 End: 02-27-2020 Start: 02-26-2019 End: 02-26-2019 Start: 02-26-2019 End: 02-28-2020 Start: 02-26-2019 End: 11-28-2019 Start: 04-16-2018 End: 04-20-2018 Start: 08-11-2016 End: 08-11-2016 Completed/Discontinued Medications Medication Drug Class(es) Dates Sig (Normalized) Sig (Original) acetaminophen 325 mg / HYDROcodone bitartrate 5 mg oral tablet (20 sources) Opioid Agonist Start: 01-06-2018 End: 01-09-2018 Hydrocodone-Acetamin ophen 1 TABLET tablet Discontinued 1 {tbl} PO EVERY 6 HOURS NEEDED as needed for Pain 10 January 06, 2018 12:00am January 08, 2018 12:00am January 09, 2018 12:13am Biliary colic Calculus of bile duct without cholangitis or cholecystitis without obstruction Start: 01-06-2018 End: 01-09-2018 Start: 01-06-2018 End: 01-09-2018 take 1 tablet by mouth every six hours as needed Hydrocodone-Acetaminophen Discontinued 1 TABLET PO EVERY 6 HOURS NEEDED 12 13January 06, 2018 12:00am January 09, 2018 12:13am Start: 03-30-2015 End: 08-11-2016 Hydrocodone-Acetaminophen 1 TABLET tablet Discontinued 1 - 2 {tbl} PO EVERY 6 HOURS NEEDED as needed for Pain March 30, 2015 11:28am August 11, 2016 10:25am causes drowsiness Start: 03-30-2015 End: 08-11-2016 Start: 03-30-2015 End: 08-11-2016 take 1 tablet by mouth every six hours as needed Hydrocodone-Acetaminophen Discontinued 1 - 2 TABLET PO EVERY 6 HOURS NEEDED March 30, 2015 11:28am August 11, 2016 10:25am causes drowsiness amLODIPine 5 mg oral tablet (20 sources) Dihydropyridine Calcium Channel Helen Start: 09-19-2022 Amlodipine Active MG PO September 19, 2022 12:00am Start: 08-25-2022 End: 01-15-2024 take 1 tablet by mouth once daily Amlodipine 5 mg tablet Discontinued 5 mg PO DAILY September 19, 2022 12:00am January 15, 2024 12:50pm amoxicillin 875 mg / clavulanate 125 mg oral tablet (17 sources) Penicillin-class Antibacterial Start: 11-27-2022 End: 01-26-2023 Amoxicillin-Pot Clavulanate 875-125 mg tablet Discontinued 1 {tbl} PO TWICE A DAY November 27, 2022 12:00am January 26, 2023 11:49am Start: 11-27-2022 End: 01-26-2023 Start: 11-27-2022 End: 01-26-2023 take 1 tablet by mouth twice daily Amoxicillin-Pot Clavulanate Discontinued 1 TABLET PO TWICE A DAY November 27, 2022 12:00am January 26, 2023 11:49am Aspirin, Baby (20 sources) Start: 08-11-2016 End: 08-11-2016 Aspirin, Baby Discontinued J une 2016 10:26am August 11, 2016 10:29am Start: 08-11-2016 End: 08-11-2016 Aspirin, Baby Discontinued M ay 2016 11:00pm August 11, 2016 9:29am Start: 08-11-2016 End: 08-11-2016 Aspirin, Baby Discontinued J une 2016 12:00am August 11, 2016 10:29am budesonide 0.25 mg/ml inhalation suspension (12 sources) Corticosteroid Start: 02-05-2024 End: 03-15-2024 take 0.5 mg by inhalation once daily Budesonide 0.5 mg/2 mL suspension for nebulization Discontinued 0.5 mg INHALATION daily 60 0 February 05, 2024 1:00am March 15, 2024 4:49pm Shortness of breath Shortness of breath Start: 02-05-2024 End: 03-15-2024 cholecalciferol 0.025 mg oral capsule (20 sources) Vitamin D Start: 09-04-2023 End: 07-10-2024 take 1 capsule by mouth once daily Cholecalciferol (Vitamin D3) (Vitamin D3) 25 mcg (1,000 unit) capsule Discontinued 1000 U PO DAILY April 29, 2024 10:53am April 30, 2024 11:52am Start: 09-04-2023 End: 07-10-2024 take 1 capsule by mouth once daily Cholecalciferol (Vitamin D3) (Vitamin D3) 25 mcg (1,000 unit) capsule Discontinued 1500 U PO DAILY April 23, 2024 11:44am April 29, 2024 10:56am Start: 09-04-2023 End: 07-10-2024 take 1 capsule by mouth once daily Cholecalciferol (Vitamin D3) (Vitamin D3) 25 mcg (1,000 unit) capsule Discontinued 2000 U PO DAILY April 30, 2024 11:51am July 10, 2024 1:07pm Start: 02-26-2019 End: 09-04-2023 take 1 capsule by mouth every week Cholecalciferol (Vitamin D3) 1,250 mcg (50,000 unit) capsule Discontinued 56711 U PO EVERY WEEK 4 6 April 21, 2020 6:36pm February 07, 2021 10:18pm Start: 02-26-2019 End: 02-26-2019 take 1 capsule by mouth once daily cholecalciferol (vitamin D3) 4,000 unit capsule Discontinued 4000 UNIT PO DAILY February 26, 2019 12:00am February 26, 2019 2:37pm Comment on above: Take 1 capsule by [facility] one time a week. cholecalciferol (vitamin D3) 4,000 unit capsule (10 sources) Start: 02-27-20 End: 02-27-20 take 1 capsule by mouth once daily cholecalciferol (vitamin D3) 4,000 unit capsule Discontinued 4000 UNIT PO DAILY February 26, 2019 1:00am February 26, 2019 3:37pm Start: 02-26-2019 End: 02-26-2019 take 1 capsule by mouth once daily cholecalciferol (vitamin D3) 4,000 unit capsule Discontinued 4000 UNIT PO DAILY February 26, 2019 12:00am February 26, 2019 2:37pm Cholecalciferol (Vitamin D3) 4,000 unit capsule (9 sources) Start: 02-26-2019 End: 02-26-2019 take 1 capsule by mouth once daily Cholecalciferol (Vitamin D3) 4,000 unit capsule Discontinued 4000 U PO DAILY February 26, 2019 1:00am February 26, 2019 3:37pm Dulaglutide (20 sources) GLP-1 Receptor Agonist Start: 12-07-2021 End: 12-20-2021 Dulaglutide (Trulicity) 4.5 mg/0.5 mL pen injector Discontinued 4.5 mg SC EVERY WEEK 2 December 07, 2021 12:50pm December 20, 2021 3:05pm Start: 12-07-2021 End: 12-20-2021 Start: 12-07-2021 End: 12-20-2021 Dulaglutide (Trulicity) 4.5 mg/0.5 mL pen injector Discontinued 4.5 mg SC EVERY WEEK 2 December 07, 2021 12:50pm December 20, 2021 3:05pm Start: 12-07-2021 End: 12-20-2021 Dulaglutide (Trulicity) 4.5 mg/0.5 mL pen injector Discontinued 4.5 MG SC EVERY WEEK 2 December 07, 2021 11:50am December 20, 2021 2:05pm Start: 12-07-2021 End: 12-20-2021 Dulaglutide (Trulicity) 4.5 mg/0.5 mL pen injector Discontinued 4.5 MG SC EVERY WEEK 2 December 07, 2021 12:50pm December 20, 2021 3:05pm Start: 05-24-2021 Dulaglutide (T rulicity) 4.5 mg/0.5 mL pen injector Active 4.5 MG SC EVERY WEEK 2 May 24, 2021 11:53am Start: 05-24-2021 End: 12-07-2021 Dulaglutide (Trulicity) 4.5 mg/0.5 mL pen injector Discontinued 4.5 mg SC EVERY WEEK 2 May 24, 2021 12:00am December 07, 2021 12:50pm Start: 05-24-2021 End: 12-07-2021 Start: 05-24-2021 End: 12-07-2021 Dulaglutide (Trulicity) 4.5 mg/0.5 mL pen injector Discontinued 4.5 mg SC EVERY WEEK 2 May 24, 2021 12:00am December 07, 2021 12:50pm Start: 05-24-2021 End: 12-07-2021 Dulaglutide (Trulicity) 4.5 mg/0.5 mL pen injector Discontinued 4.5 MG SC EVERY WEEK 2 May 23, 2021 11:00pm December 07, 2021 11:50am Start: 05-24-2021 End: 12-07-2021 Dulaglutide (Trulicity) 4.5 mg/0.5 mL pen injector Discontinued 4.5 MG SC EVERY WEEK 2 May 24, 2021 12:00am December 07, 2021 12:50pm Start: 05-24-2021 Dulaglutide (T rulicity) 4.5 mg/0.5 mL pen injector Active 4.5 MG SC EVERY WEEK 2 May 24, 2021 12:00am Start: 03-02-2021 End: 05-24-2021 Dulaglutide (Trulicity) 3 mg /0.5 mL pen injector Discontinued 3 mg SC EVERY WEEK 2 3 March 02, 2021 8:43am May 24, 2021 11:54am DM Start: 03-02-2021 End: 05-24-2021 Start: 03-02-2021 End: 05-24-2021 Dulaglutide (Trulicity) 3 mg /0.5 mL pen injector Discontinued 3 mg SC EVERY WEEK 2 March 02, 2021 8:43am May 24, 2021 11:54am Start: 03-02-2021 End: 05-24-2021 Dulaglutide (Trulicity) 3 mg /0.5 mL pen injector Discontinued 3 MG SC EVERY WEEK 2 March 02, 2021 7:43am May 24, 2021 10:54am Start: 03-02-2021 End: 05-24-2021 Dulaglutide (Trulicity) 3 mg /0.5 mL pen injector Discontinued 3 MG SC EVERY WEEK 2 March 02, 2021 8:43am May 24, 2021 11:54am Start: 02-07-2021 End: 03-02-2021 Dulaglutide (Trulicity) 3 mg /0.5 mL pen injector Discontinued 3 mg SC EVERY WEEK February 07, 2021 10:20pm March 02, 2021 8:43am DM Start: 02-07-2021 End: 03-02-2021 Start: 02-07-2021 End: 03-02-2021 Dulaglutide (Trulicity) 3 mg /0.5 mL pen injector Discontinued 3 mg SC EVERY WEEK February 07, 2021 10:20pm March 02, 2021 8:43am Start: 02-07-2021 End: 03-02-2021 Dulaglutide (Trulicity) 3 mg /0.5 mL pen injector Discontinued 3 MG SC EVERY WEEK February 07, 2021 9:20pm March 02, 2021 7:43am Start: 02-07-2021 End: 03-02-2021 Dulaglutide (Trulicity) 3 mg /0.5 mL pen injector Discontinued 3 MG SC EVERY WEEK February 07, 2021 10:20pm March 02, 2021 8:43am Start: 10-27-2020 End: 02-07-2021 Dulaglutide (Trulicity) 3 mg /0.5 mL pen injector Discontinued 3 MG SC EVERY WEEK 2 October 27, 2020 8:14am February 07, 2021 10:20pm Start: 10-27-2020 End: 02-07-2021 Dulaglutide (Trulicity) 3 mg /0.5 mL pen injector Discontinued 3 mg SC EVERY WEEK 2 3 October 27, 2020 12:00am February 07, 2021 10:20pm Start: 10-27-2020 End: 02-07-2021 Start: 10-27-2020 End: 02-07-2021 Dulaglutide (Trulicity) 3 mg /0.5 mL pen injector Discontinued 3 mg SC EVERY WEEK 2 October 27, 2020 12:00am February 07, 2021 10:20pm Start: 10-27-2020 End: 02-07-2021 Dulaglutide (Trulicity) 3 mg /0.5 mL pen injector Discontinued 3 MG SC EVERY WEEK 2 October 26, 2020 11:00pm February 07, 2021 9:20pm Start: 10-27-2020 End: 02-07-2021 Dulaglutide (Trulicity) 3 mg /0.5 mL pen injector Discontinued 3 MG SC EVERY WEEK 2 October 27, 2020 12:00am February 07, 2021 10:20pm Start: 08-17-2020 End: 10-27-2020 Dulaglutide (Trulicity) 1.5 mg/0.5 mL pen injector Discontinued 1.5 mg SC EVERY WEEK 2 2 August 17, 2020 12:00am October 27, 2020 8:14am Start: 08-17-2020 End: 10-27-2020 Start: 07-16-2020 End: 08-17-2020 Dulaglutide (Trulicity) 0.75 mg/0.5 mL pen injector Discontinued 0.75 mg SC EVERY WEEK 2 0 July 16, 2020 12:00am August 17, 2020 12:14pm Start: 07-16-2020 End: 08-17-2020 ergocalciferol 1.25 mg oral capsule (20 sources) Provitamin D2 Compound Start: 04-05-2017 End: 04-20-2018 Ergocalciferol (Vitamin D2) (Vitamin D) 50,000 UNIT capsule Discontinued 15043 U PO BARROS April 05, 2017 1:00am April 20, 2018 10:06am supplement Start: 04-05-2017 End: 04-20-2018 Fish Oil-Dha-Epa (20 sources) Start: 04-16-2018 End: 04-20-2018 take 1200 mg by mouth twice daily Fish Oil-Dha-Epa Discontinued 1200 MG PO TWICE A DAY April 16, 2018 3:55pm April 20, 2018 10:06am Start: 04-16-2018 End: 04-20-2018 take 1200 mg by mouth twice daily Fish Oil-Dha-Epa Discontinued 1200 MG PO TWICE A DAY April 16, 2018 12:00am April 20, 2018 9:06am Start: 04-16-2018 End: 04-20-2018 take 1200 mg by mouth twice daily Fish Oil-Dha-Epa Discontinued 1200 MG PO TWICE A DAY April 16, 2018 1:00am April 20, 2018 10:06am Fish Oil-Dha-Epa 1 EACH capsule (9 sources) Start: 04-16-2018 End: 04-20-2018 take 1 capsule by mouth twice daily Fish Oil-Dha-Epa 1 EACH capsule Discontinued 1200 mg PO TWICE A DAY April 16, 2018 1:00am April 20, 2018 10:06am gabapentin 300 mg oral capsule (20 sources) Anti-epilepti c Agent Start: 12-12-2022 End: 06-18-2024 take 1 capsule by mouth three times daily as needed Gabapentin 300 mg capsule Discontinued 300 mg PO THREE TIMES A DAY as needed January 26, 2023 11:50am April 10, 2023 1:42pm 3 ml insulin isophane, human 100 unt/ml pen injector (20 sources) Start: 09-21-2023 End: 10-05-2023 Insulin Nph Isoph U-100 Human (Humulin N Nph Insulin Kwikpen) 100 unit/mL (3 mL) insulin pen Discontinued 50 U SC EVERY MORNING 15 5 September 21, 2023 3:28pm October 05, 2023 3:03pm Start: 08-31-2023 End: 09-21-2023 Insulin Nph Isoph U-100 [place] n (Humulin N Nph Insulin Kwikpen) 100 unit/mL (3 mL) insulin pen Discontinued 70 U SC EVERY MORNING 21 5 August 31, 2023 12:00am September 21, 2023 3:31pm Start: 08-31-2023 End: 10-05-2023 Start: 04-17-2023 End: 09-21-2023 Insulin Nph Isoph U-100 [place] n (Humulin N Nph U-100 Insulin) 100 unit/mL suspension Discontinued 70 U SC EVERY MORNING 30 4 August 31, 2023 12:00am September 04, 2023 9:19am Start: 01-26-2023 End: 04-17-2023 Insulin Nph Isoph U-100 [place] n (Humulin N Nph U-100 Insulin) 100 unit/mL suspension Discontinued 40 U SC EVERY MORNING 12 January 26, 2023 1:00am April 17, 2023 3:17pm Diabetes mellitus Type 2 diabetes mellitus without complications Start: 01-26-2023 End: 09-21-2023 Start: 04-05-2017 End: 02-26-2019 Insulin Nph Isoph U-100 [place] n 100 unit/mL suspension Discontinued 0 SC TWICE A DAY February 26, 2019 3:03pm February 26, 2019 3:37pm diabetes 40 subcut twice a day; insulin lispro 50 unt/ml / insulin lispro protamine, human 50 unt/ml injectable suspension (20 sources) Insulin Analog Start: 05-24-2021 End: 09-21-2023 inject 40 [IU] by subcutaneous injection twice daily in the morning, then inject 75 [IU] by subcutaneous injection twice daily Insulin Lispro Protamin-Lispro (Humalog Mix 50-50 Insuln U-100) 100 unit/mL (50-50) suspension Discontinued 0 SC TWICE A DAY 40 May 24, 2021 11:54am September 30, 2021 1:22pm DM 40 units in am and 75 units at supper, subcut twice a day; Start: 02-07-2021 End: 05-24-2021 inject 44 [IU] by subcutaneous injection twice daily in the morning, then inject 60 [IU] by subcutaneous injection twice daily Insulin Lispro Protamin-Lispro (Humalog Mix 50-50 Insuln U-100) 100 unit/mL (50-50) suspension Discontinued 0 SC TWICE A DAY 30 April 08, 2021 8:56am May 24, 2021 11:56am DM 44 units in am and 60 units at supper, subcut twice a day; Start: 02-27-2020 End: 02-07-2021 Insulin Lispro Protamin-Lisp ro (Humalog Mix 50-50 Insuln U-100) 100 unit/mL (50-50) suspension Discontinued 0 SC TWICE A DAY 30 August 31, 2020 1:35pm February 07, 2021 10:22pm 44 am 60 supper subcut twice a day; Start: 02-28-2019 End: 02-27-2020 Insulin Lispro Protamin-Lisp ro (Humalog Mix 50-50 Insuln U-100) 100 unit/mL (50-50) suspension Discontinued 35 U SC TWICE A DAY 20 September 19, 2019 3:41pm February 27, 2020 12:52pm Start: 02-26-2019 End: 09-21-2023 inject 60 [IU] by subcutaneous injection twice daily in the morning, then inject 130 [IU] by subcutaneous injection twice daily Insulin Lispro Protamin-Lispro (Humalog Mix 50-50 Insuln U-100) 100 unit/mL (50-50) suspension Discontinued 0 SC TWICE A DAY 53 January 26, 2023 4:20pm August 11, 2023 8:27am Diabetes mellitus Type 2 diabetes mellitus without complications DM 60 units in am and 130 units at supper, subcutaneously twice a day; Start: 02-26-2019 End: 09-21-2023 inject 70 [IU] by subcutaneous injection twice daily in the morning, then inject 110 [IU] by subcutaneous injection twice daily Insulin Lispro Protamin-Lispro (Humalog Mix 50-50 Insuln U-100) 100 unit/mL (50-50) suspension Discontinued 0 SC TWICE A DAY 60 August 25, 2023 12:57pm September 21, 2023 3:29pm Diabetes mellitus Type 2 diabetes mellitus without complications DM 70 units in am and 110 units at supper, subcutaneously twice a day; Start: 02-26-2019 End: 09-21-2023 inject 50 [IU] by subcutaneous injection twice daily in the morning, then inject 100 [IU] by subcutaneous injection twice daily Insulin Lispro Protamin-Lispro (Humalog Mix 50-50 Insuln U-100) 100 unit/mL (50-50) suspension Discontinued 0 SC TWICE A DAY 42 April 11, 2022 2:26pm September 22, 2022 11:20am DM 50 units in am and 100 units at supper, subcutaneously twice a day; Start: 02-26-2019 End: 02-28-2019 Insulin Lispro Protamin-Lisp ro (Humalog Mix 50-50 Insuln U-100) 100 unit/mL (50-50) suspension Discontinued 35 U SC DAILY 20 February 26, 2019 1:00am February 28, 2019 10:36am Comment on above: twice daily. Lactulose (4 sources) Osmotic Laxative Start: 08-22-2024 End: 10-11-2024 take 10 g by mouth at bedtime Lactulose 10 gram/15 mL solution Discontinued 10 g PO AT BEDTIME 300 0 August 22, 2024 12:00am October 11, 2024 1:09pm Start: 08-22-2024 take 10 g by mouth at bedtime Lactulose 10 gram/15 mL solution Active 10 g PO AT BEDTIME 300 0 August 22, 2024 12:00am levothyroxine sodium 0.175 mg oral tablet (20 sources) l-Thyroxine Start: 02-26-2019 End: 10-07-2024 take 1 tablet by mouth once daily Levothyroxine 175 mcg tablet Discontinued 175 ug PO DAILY 30 April 02, 2024 4:53pm October 07, 2024 12:29pm Hypothyroidism Hypothyroidism, unspecified Start: 04-16-2018 End: 02-26-2019 take 1 tablet by mouth once daily Levothyroxine 100 MCG tablet Discontinued 100 ug PO DAILY April 16, 2018 1:00am February 26, 2019 3:37pm LEVOTHYROXINE SO DIUM (LEVOTHYROXINE, BULK, MISC) 175 mcg once daily as needed. Active LEVOTHYROXINE SO DIUM (LEVOTHYROXINE, BULK, MISC) 175 mcg once daily as needed. 0 Active Comment on above: 175 mcg once daily a s needed. lisinopril 20 mg oral tablet (20 sources) Angiotensin Converting Enzyme Inhibitor Start: 4 End: 5 take 1 tablet by mouth once daily Lisinopril 20 mg tablet Discontinued 20 mg PO daily January 15, 2024 1:00am June 18, 2024 3:09pm Start: 03-30-2015 End: 04-20-2018 take 1 tablet by mouth once daily Lisinopril 20 MG tablet Discontinued 20 mg PO DAILY March 30, 2015 1:00am April 20, 2018 10:06am blood pressure lovastatin 20 mg oral tablet (20 sources) HMG-CoA Reductase Inhibitor Start: 03-30-2015 End: 04-02-2020 take 1 tablet by mouth at bedtime Lovastatin 20 MG tablet Discontinued 20 mg PO AT BEDTIME March 30, 2015 1:00am April 02, 2020 2:14pm cholesterol Start: 03-30-2015 End: 04-02-2020 metFORMIN hydrochloride 500 mg oral tablet (20 sources) Biguanide Start: 04-16-2018 End: 04-20-2018 take 2 tablets by mouth twice daily Metformin 500 MG tablet Discontinued 1000 mg PO TWICE A DAY April 16, 2018 1:00am April 20, 2018 10:09am dm Start: 04-16-2018 End: 04-20-2018 take 1000 mg by mouth twice daily Metformin Discontinued 1000 MG PO TWICE A DAY April 16, 2018 1:00am April 20, 2018 10:09am naproxen 500 mg oral tablet (20 sources) Nonsteroidal Anti-inflammatory Drug Start: 12-18-2018 End: 02-26-2019 take 1 tablet by mouth twice daily as needed for pain Naproxen 500 MG tablet Discontinued 500 mg PO TWICE DAILY NEEDED as needed for Pain Score 1-10/10 December 18, 2018 2:49pm February 26, 2019 3:01pm ondansetron 4 mg disintegrating oral tablet (20 sources) Serotonin-3 Receptor Antagonist Start: 03-30-2015 End: 08-11-2016 take 1 tablet by mouth every eight hours as needed for nausea Ondansetron 4 MG tablet Discontinued 4 mg PO EVERY 8 HOURS NEEDED as needed for Nausea March 30, 2015 1:00am August 11, 2016 10:25am oxyCODONE hydrochloride 5 mg oral tablet (20 sources) Opioid Agonist Start: 04-20-2018 End: 04-23-2018 take 1 tablet by mouth every six hours as needed for pain Oxycodone 5 MG tablet Discontinued 5 mg PO EVERY 6 HOURS as needed for Severe Pain (6-10/10) 12 3 0 April 20, 2018 1:00am April 22, 2018 1:00am April 23, 2018 1:09am Perirectal abscess Rectal abscess predniSONE 10 mg oral tablet (20 sources) Start: 10-15-2024 take 2 tablets by mouth once daily Prednisone 10 mg tablet Active 10 mg PO daily 28 0 October 15, 2024 12:00am complete this regimen when 20 mg daily regimen is completed Start: 09-11-2024 take 3 tablets by mo uth once daily, then take 2 tablets by mouth once daily Prednisone 10 mg tablet Active 10 mg PO As Directed 98 0 September 11, 2024 12:00am take 3 tablets daily for 14 days and then 2 tablets daily for 28 days Start: 07-23-2024 End: 08-07-2024 take 3 tablets by mouth once daily, then take 2 tablets by mouth once daily Prednisone 10 mg tablet Discontinued 10 mg PO As Directed 60 July 23, 2024 12:00am August 07, 2024 4:10pm Take 3 tablets daily for 2 weeks then 2 tablets daily for 2 weeks Start: 07-23-2024 End: 09-11-2024 take 4 tablets by mouth once daily, then take 3 tablets by mouth once daily Prednisone 10 mg tablet Discontinued 10 mg PO As Directed 147 August 07, 2024 12:00am August 22, 2024 10:39am Take 4 tablets daily for 21 days, then 3 tablets daily for 21 days. Start: 06-18-2024 End: 07-23-2024 take 2 tablets by mouth once daily Prednisone 20 mg tablet Discontinued 40 mg PO daily 14 0 July 16, 2024 12:00am July 23, 2024 11:53am for continuation of therapy until follow up at this office Start: 03-19-2024 End: 04-29-2024 take 2 tablets by mouth once daily, then take 1 tablet by mouth once daily Prednisone 20 mg tablet Discontinued 20 mg PO daily 10 March 19, 2024 1:00am April 29, 2024 10:54am Take 2 tablets daily for 4 days then 1 tablet daily for 2 days. 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 Start: 04-24-2024 End: 04-29-2024 Tirzepatide (Mounjaro) 10 mg /0.5 mL pen injector Discontinued 10 mg SC EVERY WEEK 2 April 24, 2024 1:00am April 29, 2024 10:55am Start: 08-19-2022 End: 09-16-2022 Tirzepatide (Mounjaro) 10 mg /0.5 mL pen injector Discontinued 10 mg SC EVERY WEEK 2 4 August 19, 2022 12:00am September 16, 2022 1:06pm Start: 08-19-2022 End: 09-16-2022 Tirzepatide (Mounjaro) 10 mg /0.5 mL pen injector Discontinued 10 mg SC EVERY WEEK 2 August 19, 2022 12:00am September 16, 2022 1:06pm Start: 08-19-2022 End: 09-16-2022 Tirzepatide (Mounjaro) 10 mg /0.5 mL pen injector Discontinued 10 MG SC EVERY WEEK 2 August 18, 2022 11:00pm September 16, 2022 12:06pm Start: 08-19-2022 End: 09-16-2022 Tirzepatide (Mounjaro) 10 mg /0.5 mL pen injector Discontinued 10 MG SC EVERY WEEK 2 August 19, 2022 12:00am September 16, 2022 1:06pm Start: 08-19-2022 Tirzepatide (M ounjaro) 10 mg/0.5 mL pen injector Active 10 MG SC EVERY WEEK 2 August 19, 2022 12:00am Tirzepatide (Mounjaro) 15 mg/0.5 mL pen injector (20 sources) Start: 08-22-2023 End: 01-15-2024 Tirzepatide (Mounjaro) 15 mg /0.5 mL pen injector Discontinued 15 mg SC EVERY WEEK 2 5 August 22, 2023 1:55pm January 15, 2024 1:00pm Type 2 diabetes mellitus without complication Type 2 diabetes mellitus without complications Start: 08-22-2023 End: 01-15-2024 Tirzepatide (Mounjaro) 15 mg /0.5 mL pen injector Discontinued 15 mg SC EVERY WEEK 2 August 22, 2023 1:55pm January 15, 2024 1:00pm Start: 01-26-2023 End: 08-22-2023 Tirzepatide (Mounjaro) 15 mg /0.5 mL pen injector Discontinued 15 mg SC EVERY WEEK 2 5 January 26, 2023 1:00am August 22, 2023 1:55pm Type 2 diabetes mellitus without complication Type 2 diabetes mellitus without complications Start: 01-26-2023 End: 08-22-2023 Tirzepatide (Mounjaro) 15 mg /0.5 mL pen injector Discontinued 15 mg SC EVERY WEEK 2 January 26, 2023 1:00am August 22, 2023 1:55pm Start: 01-26-2023 Tirzepatide (M ounjaro) 15 mg/0.5 mL pen injector Active 15 MG SC EVERY WEEK 2 January 26, 2023 1:00am Start: 01-26-2023 Tirzepatide (M ounjaro) 15 mg/0.5 mL pen injector Active 15 MG SC EVERY WEEK January 26, 2023 12:00am Tirzepatide (Mounjaro) 2.5 mg/0.5 mL pen injector (20 sources) Start: 12-20-2021 End: 02-14-2022 Tirzepatide (Mounjaro) 2.5 mg/0.5 mL pen injector Discontinued 2.5 mg SC EVERY WEEK December 20, 2021 12:00am February 14, 2022 3:37pm Obesity Diabetes mellitus Obesity, unspecified Type 2 diabetes mellitus without complications Start: 12-20-2021 End: 02-14-2022 Tirzepatide (Mounjaro) 2.5 m g/0.5 mL pen injector Discontinued 2.5 mg SC EVERY WEEK 2 December 20, 2021 12:00am February 14, 2022 3:37pm Start: 12-20-2021 End: 02-14-2022 Tirzepatide (Mounjaro) 2.5 m g/0.5 mL pen injector Discontinued 2.5 MG SC EVERY WEEK 2 December 20, 2021 12:00am February 14, 2022 3:37pm Start: 12-20-2021 End: 02-14-2022 Tirzepatide (Mounjaro) 2.5 m g/0.5 mL pen injector Discontinued 2.5 MG SC EVERY WEEK 2 December 19, 2021 11:00pm February 14, 2022 2:37pm Start: 12-20-2021 Tirzepatide (M ounjaro) 2.5 mg/0.5 mL pen injector Active 2.5 MG SC EVERY WEEK 2 December 20, 2021 12:00am Tirzepatide (Mounjaro) 5 mg/ 0.5 mL pen injector (20 sources) Start: 01-15-2024 End: 02-12-2024 Tirzepatide (Mounjaro) 5 mg/ 0.5 mL pen injector Discontinued 5 mg SC EVERY WEEK 2 January 15, 2024 1:00am February 12, 2024 1:57pm Type 2 diabetes mellitus without complication Type 2 diabetes mellitus without complications jail (current) use of insulin Start: 01-15-2024 End: 02-12-2024 Tirzepatide (Mounjaro) 5 mg/ 0.5 mL pen injector Discontinued 5 mg SC EVERY WEEK 2 January 15, 2024 1:00am February 12, 2024 1:57pm Start: 02-14-2022 End: 03-24-2022 Tirzepatide (Mounjaro) 5 mg/ 0.5 mL pen injector Discontinued 5 mg SC EVERY WEEK 2 February 14, 2022 1:00am March 24, 2022 12:19pm Obesity Type 2 diabetes mellitus without complication Morbid (severe) obesity due to excess calories Body mass index [BMI] 50.0-59.9, adult Type 2 diabetes mellitus without complications 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 Start: 02-14-2022 End: 03-24-2022 Tirzepatide (Mounjaro) 5 mg/ 0.5 mL pen injector Discontinued 5 mg SC EVERY WEEK 2 February 14, 2022 1:00am March 24, 2022 12:19pm Start: 02-14-2022 End: 03-24-2022 Tirzepatide (Mounjaro) 5 mg/ 0.5 mL pen injector Discontinued 5 MG SC EVERY WEEK 2 February 14, 2022 1:00am March 24, 2022 12:19pm Start: 02-14-2022 End: 03-24-2022 Tirzepatide (Mounjaro) 5 mg/ 0.5 mL pen injector Discontinued 5 MG SC EVERY WEEK 2 February 14, 2022 12:00am March 24, 2022 11:19am Start: 02-14-2022 Tirzepatide (M ounjaro) 5 mg/0.5 mL pen injector Active 5 MG SC EVERY WEEK 2 February 14, 2022 12:00am Tirzepatide (Mounjaro) 7.5 mg/0.5 mL pen injector (20 sources) Start: 02-12-2024 End: 04-24-2024 Tirzepatide (Mounjaro) 7.5 mg/0.5 mL pen injector Discontinued 7.5 mg SC EVERY WEEK 2 3 February 12, 2024 1:00am April 24, 2024 1:02pm Start: 02-12-2024 End: 04-24-2024 Tirzepatide (Mounjaro) 7.5 m g/0.5 mL pen injector Discontinued 7.5 mg SC EVERY WEEK February 12, 2024 1:00am April 24, 2024 1:02pm Start: 03-24-2022 End: 08-19-2022 Tirzepatide (Mounjaro) 7.5 m g/0.5 mL pen injector Discontinued 7.5 mg SC EVERY WEEK 04 17March 24, 2022 1:00am August 19, 2022 9:38am Type 2 diabetes mellitus without complication Type 2 diabetes mellitus without complications Start: 03-24-2022 End: 08-19-2022 Tirzepatide (Mounjaro) 7.5 m g/0.5 mL pen injector Discontinued 7.5 mg SC EVERY WEEK March 24, 2022 1:00am August 19, 2022 9:38am Start: 03-24-2022 End: 08-19-2022 Tirzepatide (Mounjaro) 7.5 m g/0.5 mL pen injector Discontinued 7.5 MG SC EVERY WEEK March 24, 2022 12:00am August 19, 2022 8:38am Start: 03-24-2022 End: 08-19-2022 Tirzepatide (Mounjaro) 7.5 m g/0.5 mL pen injector Discontinued 7.5 MG SC EVERY WEEK March 24, 2022 1:00am August 19, 2022 9:38am Start: 03-24-2022 Tirzepatide (M ounjaro) 7.5 mg/0.5 mL pen injector Active 7.5 MG SC EVERY WEEK March 24, 2022 1:00am Start: 03-24-2022 Tirzepatide (M ounjaro) 7.5 mg/0.5 mL pen injector Active 7.5 MG SC EVERY WEEK March 24, 2022 12:00am Tirzepatide 7.5 mg/0.5 mL pen injector (9 sources) Start: 04-29-2024 End: 04-30-2024 Tirzepatide 7.5 mg/0.5 mL pen injector Discontinued 7.5 mg SC EVERY WEEK April 29, 2024 1:00am April 30, 2024 11:51am ursodiol 300 mg oral capsule (20 sources) Bile Acid Start: 05-12-2022 End: 01-04-2024 take 1 capsule by mouth twice daily Ursodiol 300 mg capsule Discontinued 300 mg PO TWICE A DAY 60 9 March 10, 2023 3:00pm January 04, 2024 2:12pm Problems Active Problems Problem Classification Problem Date Documented Da te Episodic/Chronic Anal and rectal conditions (20 sources) Perianal abscess; Translations: [Anal abscess] 11-06-2018 Episodic Asthma (2 sources) Asthma; Translations: [Unspecified asthma, uncomplicated] 10-15-2024 Chronic Biliary tract disease (20 sources) Calculus of gallbladder with acute cholecystitis without obstruction; Translations: [Biliary calculus] Onset: 01-10-2018 04-17-2018 Episodic Chronic kidney disease (20 sources) Chronic kidney disease; Translations: [Chronic kidney disease, unspecified] 01-26-2023 Chronic Chronic kidney disease (1 source) Chronic kidney disease; Translations: [Chronic kidney disease, stage 3b] Onset: 11-06-2024 Chronic obstructive pulmonary disease and bronchiectasis (1 source) Chronic obstructive pulmonary disease, unspecified; Translations: [Chronic obstructive pulmonary disease, unspecified] Onset: 02-05-2024 Chronic Coagulation and hemorrhagic disorders (20 sources) Platelet count below reference range; Translations: [Thrombocytopenia, unspecified] Onset: 08-17-2021 08-17-2021 Chronic Coronary atherosclerosis and other heart disease (20 sources) Coronary arteriosclerosis; Translations: [Atherosclerotic heart disease of [place] coronary artery without angina pectoris] Onset: 07-11-2024 05-07-2024 Chronic Diabetes mellitus with complications (20 sources) Secondary diabetes mellitus; 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] Onset: 08-17-2021 08-17-2021 Chronic Diabetes mellitus without complication (20 sources) Type 2 diabetes mellitus without complications; Translations: [Type 2 diabetes mellitus without complication] Onset: 01-13-2018 Chronic Diseases of white blood cells (20 sources) Leukopenia; Translations: [Decreased white blood cell count, unspecified] 11-06-2018 Chronic Disorders of lipid metabolism (20 sources) Hyperlipidemia, unspecified; Translations: [Hypercholesterolemia ] Onset: 01-13-2018 Chronic Essential hypertension (20 sources) Essential (primary) hypertension; Translations: [Essential hypertension] Onset: 01-13-2018 Chronic Hepatitis (20 sources) Steatohepatitis; Translations: [Nonalcoholic steatohepatitis (ARGUETA)] Onset: 11-03-2022 09-09-2021 Chronic Nonspecific chest pain (8 sources) Chest pain; Translations: [Chest pain, unspecified] Onset: 10-11-2024 10-11-2024 Episodic Osteoarthritis (20 sources) Arthritis; Translations: [Unspecified osteoarthritis, unspecified site] 12-19-2018 Chronic Other aftercare (1 source) tank terminal gauger (current) use of aspirin; Translations: [tank terminal gauger (current) use of aspirin] Onset: 01-13-2018 Episodic Other aftercare (17 sources) Wound ; Translations: [Encounter for other specified aftercare] 11-27-2022 Episodic Other aftercare (1 source) jail (current) use of oral hypoglycemic drugs; Translations: [tank terminal gauger (current) use of oral hypoglycemic drugs] Onset: 01-13-2018 Other and ill-defined heart disease (20 sources) Left ventricular systolic dysfunction; Translations: [Other ill-defined heart diseases] 05-07-2024 Chronic Other and ill-defined heart disease (1 source) Other ill-defined heart diseases; Translations: [Other ill-defined heart diseases] Onset: 07-11-2024 Chronic Other diseases of kidney and ureters (1 source) Disorder of kidney and ureter, unspecified; Translations: [Disorder of kidney and ureter, unspecified] Onset: 01-13-2018 Episodic Other gastrointestinal disorders (8 sources) Constipation; Translations: [Constipation, unspecified] 08-22-2024 Episodic Other liver diseases (1 source) Fatty (change of) liver, not elsewhere classified; Translations: [Fatty (change of) liver, not elsewhere classified] Onset: 01-13-2018 Chronic Other liver diseases (4 sources) Steatosis of liver; Translations: [Fatty (change of) liver, not elsewhere classified] Onset: 08-17-2021 08-17-2021 Chronic Other liver diseases (20 sources) Disease of liver; Translations: [Liver disease, unspecified] 02-17-2022 Chronic Other liver diseases (9 sources) Liver disease, unspecified; Translations: [Unspecified disorder of liver] Chronic Other liver diseases (20 sources) Cirrhosis of liver; Translations: [Unspecified cirrhosis of liver] 04-05-2022 Chronic Other liver diseases (20 sources) Primary biliary cholangitis; Translations: [Primary biliary cirrhosis] 05-12-2022 Chronic Other liver diseases (10 sources) Primary biliary cirrhosis; Translations: [Biliary cirrhosis] 05-12-2022 Chronic Other liver diseases (13 sources) Unspecified cirrhosis of liver; Translations: [Cirrhosis of liver without mention of alcohol] Onset: 10-12-2022 05-12-2022 Chronic Other liver diseases (20 sources) Alkaline phosphatase raised; Translations: [Abnormal levels of other serum enzymes] 09-22-2022 Episodic Other liver diseases (6 sources) Abnormal levels of other serum enzymes; Translations: [Other nonspecific abnormal serum enzyme levels] 09-22-2022 Episodic Other lower respiratory disease (20 sources) Pulmonary granuloma; Translations: [Pulmonary fibrosis, unspecified] 06-17-2024 Chronic Other lower respiratory disease (1 source) Pulmonary fibrosis, unspecified; Translations: [Pulmonary fibrosis, unspecified] Onset: 10-15-2024 Chronic Other lower respiratory disease (5 sources) Cough; Translations: [Cough] 09-19-2022 Episodic Other lower respiratory disease (13 sources) Solitary nodule of lung; Translations: [Solitary pulmonary nodule] 07-10-2023 Episodic Other lower respiratory disease (20 sources) Nodule of lung; Translations: [Solitary pulmonary nodule] 04-30-2024 Episodic Comment on above: Due in June 2024 Due in January 2025 Other lower respiratory disease (20 sources) Dyspnea; Translations: [Shortness of breath] 02-05-2024 Episodic Other lower respiratory disease (20 sources) Hypoxemia; Translations: [Hypoxemia] 03-19-2024 Episodic Other nutritional; endocrine; and metabolic disorders (20 sources) Obesity, unspecified; Translations: [Obesity, unspecified] Onset: 01-13-2018 Chronic Other nutritional; endocrine; and metabolic disorders (1 source) Body mass index (BMI) 60.0-69.9, adult; Translations: [Body mass index (BMI) 60.0-69.9, adult] Onset: 01-13-2018 Chronic Other nutritional; endocrine; and metabolic disorders (20 sources) Morbid obesity; Translations: [Morbid (severe) obesity due to excess calories] Onset: 11-03-2022 04-17-2018 Chronic Other nutritional; endocrine; and metabolic disorders (20 sources) Obesity; Translations: [Obesity, unspecified] Onset: 03-13-2021 12-20-2021 Chronic Other nutritional; endocrine; and metabolic disorders (20 sources) Hypercalcemia; Translations: [Hypercalcemia] 03-24-2022 Chronic Other nutritional; endocrine; and metabolic disorders (6 sources) Morbid (severe) obesity due to excess calories; Translations: [Morbid obesity] Onset: 07-11-2024 Chronic Other nutritional; endocrine; and metabolic disorders (6 sources) Hypercalcemia; Translations: [Hypercalcemia] Onset: 06-25-2024 03-24-2022 Chronic Other nutritional; endocrine; and metabolic disorders (1 source) Body mass index (BMI) 70 or greater, adult; Translations: [Body mass index [BMI] 70 or greater, adult] Onset: 07-11-2024 Chronic Other nutritional; endocrine; and metabolic disorders (1 source) Body mass index (BMI) 50.0-59.9, adult; Translations: [Body mass index [BMI] 50.0-59.9, adult] Onset: 01-15-2024 Chronic Other skin disorders (17 sources) Folliculitis; Translations: [Follicular disorder, unspecified] 11-27-2022 Episodic Maisha-; endo-; and myocarditis; cardiomyopathy (except that caused by tuberculosis or sexually transmitted disease) (20 sources) Cardiomyopathy; Translations: [Cardiomyopathy, unspecified] Onset: 07-11-2024 05-07-2024 Chronic Peripheral and visceral atherosclerosis (20 sources) Peripheral vascular disease, unspecified; Translations: [Peripheral arterial disease] 04-17-2018 Chronic Pneumonia (except that caused by tuberculosis or sexually transmitted disease) (20 sources) Pneumonia; Translations: [Pneumonia, unspecified organism] 09-02-2022 Episodic Residual codes; unclassified (15 sources) Obstructive sleep apnea (adult) (pediatric); Translations: [Obstructive sleep apnea (adult)(pediatric)] Onset: 01-13-2018 Chronic Residual codes; unclassified (20 sources) Obstructive sleep apnea syndrome; Translations: [Obstructive sleep apnea (adult) (pediatric)] 06-21-2021 Chronic Residual codes; unclassified (20 sources) Bilateral lower limb edema; Translations: [Localized edema] 04-17-2018 Episodic Residual codes; unclassified (1 source) Localized edema; Translations: [Localized edema] Onset: 09-24-2024 Episodic Residual codes; unclassified (1 source) Laparoscopic surgical procedure converted to open procedure; Translations: [Laparoscopic surgical procedure converted to open procedure] Onset: 01-13-2018 Respiratory failure; insufficiency; arrest (adult) (20 sources) Acute hypoxemic respiratory failure; Translations: [Acute respiratory failure with hypoxia] Episodic Skin and subcutaneous tissue infections (20 sources) Abscess of buttock; Translations: [Cutaneous abscess of buttock] 11-06-2018 Episodic Sprains and strains (20 sources) Strain of thoracic region; Translations: [Strain of muscle and tendon of unspecified wall of thorax, initial encounter] 09-02-2022 Episodic Thyroid disorders (20 sources) Hypothyroidism, unspecified; Translations: [Hypothyroidism] Onset: 01-13-2018 Chronic Unclassified (1 source) Gangrene of gallbladder in cholecystitis; Translations: [Gangrene of gallbladder in cholecystitis] Onset: 01-13-2018 Unclassified (4 sources) E66.01 - Morbid (severe) obesity due to excess calories,Z68.43 - Body mass index [BMI] 50.0-59.9, adult Unclassified (7 sources) Please follow with pulmonology on 07/08/2024, if there are any questions about your appointment please contact their office Unclassified (1 source) Cough, unspecified; Translations: [Cough, unspecified] Onset: 10-15-2024 Past or Other Problems Problem Classification Problem Date Documented Da te Episodic/Chronic Acute and unspecified renal failure (20 sources) Injury of kidney; Translations: [Acute kidney failure, unspecified] Onset: 06-25-2024 11-06-2018 Episodic Genitourinary symptoms and ill-defined conditions (20 sources) Microalbuminuria; Translations: [Proteinuria, unspecified] Onset: 01-15-2024 01-26-2023 Episodic Immunizations and screening for infectious disease (1 source) Encounter for immunization; Translations: [Encounter for immunization] Onset: 02-05-2024 Episodic Other aftercare (2 sources) jail (current) use of insulin; Translations: [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] Onset: 01-13-2018 Episodic Other lower respiratory disease (3 sources) Shortness of breath; Translations: [Shortness of breath] Onset: 05-07-2024 Episodic Other lower respiratory disease (1 source) Solitary pulmonary nodule; Translations: [Solitary pulmonary nodule] Onset: 07-11-2024 Episodic Other screening for suspected conditions (not mental disorders or infectious disease) (4 sources) Liver function tests abnormal; Translations: [Other specified abnormal findings of blood chemistry] Onset: 11-03-2022 11-03-2022 Episodic Results Test Name Value Interpretation Reference Range Facility Anion gap in Serum or Plasma Ordered By: Madeleine Benoit on 10-31-2024 Anion gap [Moles/Vol] 15 mmol/L 07-25 [facility] BUN/creatinine ratioOrdered By: Madeleine Benoit on 10-31-2024 Urea nitrogen/Creatinine [Mass ratio] 21.3 mg/mg High 12-30 [facility] Basic Metabolic Profile (BMP )on 10-31-2024 BUN/CRE 21.3 RATIO High [facility] Comment on above: Performed By: #### L 500.2500, L501.0900 ####[facility] [address] [place], [address] Calcium [Mass/Vol] 9.8 mg/dL Normal 7.6-11.0 [facility] Comment on above: Performed By: #### L 500.2500, L501.0900 ####[facility] [address] [place], [address] Chloride [Moles/Vol] 101 mmol/L Normal 98-108 [facility] Comment on above: Performed By: #### L 500.2500, L501.0900 ####[facility] [address] [place], [address] CO2 [Moles/Vol] 20.4 mmol/L Low 21.0-32.0 [facility] Comment on above: Performed By: #### L 500.2500, L501.0900 ####[facility] [address] [place], [address] Creatinine [Mass/Vol] 1.42 mg/dL High 0.70-1.20 [facility] Comment on above: Performed By: #### L 500.2500, L501.0900 ####[facility] [address] [place], [address] GAP 15 Normal 5-15 [facility] Comment on above: Performed By: #### L 500.2500, L501.0900 ####[facility] [address] [place], [address] GFR/1.73 sq M.predicted among non-blacks MDRD (S/P/Bld) [Vol rate/Area] 60 mL/min/{1.73_m2} Normal >60 [facility] Comment on above: Result Comment: mL/m in/1.73m2 CKD-EPI Creatinine Equation (2020) Performed By: #### L 500.2500, L501.0900 ####[facility] [address] [place], [address] Glucose [Mass/Vol] 180 mg/dL High 70-99 [facility] Comment on above: Performed By: #### L 500.2500, L501.0900 ####[facility] [address] [place], [address] Potassium [Moles/Vol] 3.8 mmol/L Normal 3.3-5.1 [facility] Comment on above: Result Comment: Hemo lysis present, Results??could be affected.?? Performed By: #### L 500.2500, L501.0900 ####[facility] [address] [place], [address] Sodium [Moles/Vol] 136 mmol/L Normal 133-145 [facility] Comment on above: Performed By: #### L 500.2500, L501.0900 ####[facility] [address], [address] Urea nitrogen [Mass/Vol] 30 mg/dL High 4-19 [facility] Comment on above: Performed By: #### L 500.2500, L501.0900 ####[facility] [address] [place], [address] Carbon dioxide, total [Moles /volume] in Central venous bloodOrdered By: Madeleine Benoit on 10-31-2024 CO2 [Moles/Vol] 20.4 mmol/L Low 21.0-32.0 [facility] Chloride assayOrdered By: Reece Benoit on 10-31-2024 Chloride [Moles/Vol] 101 mmol/L 98-108 [facility] Glomerular filtration rate ( GFR) estimation/1.73 sq m using serum, plasma, or whole bOrdered By: Madeleine Benoit on 10-31-2024 GFR/1.73 sq M.predicted among non-blacks MDRD (S/P/Bld) [Vol rate/Area] 60 mL/min/{1.73_m2} >60 [facility] Comment on above: mL/min/1.73m2 CKD-EP I Creatinine Equation (2020) Potassium measurement (mass/ volume)Ordered By: Madeleine Benoit on 10-31-2024 Potassium (Unsp spec) [Mass/Vol] 3.8 mmol/L 3.3-5.1 [facility] Comment on above: Hemolysis present, R esults could be affected. Protein+Creatinine Ratio,Uri neon 10-31-2024 PROT:CRE RATIO 1511 mg/g CRE High 0-200 [facility] Comment on above: Performed By: #### L 500.2500, L501.0900 ####[facility] [address] [place], [address] Protein (U) [Mass/Vol] 139.0 mg/dL High 0.0-12.0 [facility] Comment on above: Performed By: #### L 500.2500, L501.0900 ####[facility] [address] [place], [address] UR CREAT 92.00 mg/dL Normal 39.00-259.00 [facility] Comment on above: Performed By: #### L 500.2500, L501.0900 ####[facility] [address] [place], [address] Random urine creatinine camacho urement (mass/volume)Ordered By: Madeleine Benoit on 10-31-2024 Creatinine Unsp time (U) [Mass/Vol] 92.00 mg/dL 39.00-259.00 [facility] Serum creatinine measurement (mass/volume)Ordered By: Madeleine Benoit on 10-31-2024 Creatinine [Mass/Vol] 1.42 mg/dL High 0.70-1.20 [facility] Serum glucose measurement (m ass/volume)Ordered By: Madeleine Benoit on 10-31-2024 Glucose [Mass/Vol] 180 mg/dL High 70-99 [facility] Serum or plasma calcium camacho urement (mass/volume)Ordered By: Madeleine Benoit on 10-31-2024 Calcium [Mass/Vol] 9.8 mg/dL 7.6-11.0 [facility] Serum or plasma urea nitroge n measurement (mass/volume)Ordered By: Madeleine Benoit on 10-31-2024 Urea nitrogen [Mass/Vol] 30 mg/dL High 4-19 [facility] Sodium levelOrdered By: Nilton Benoit on 10-31-2024 Sodium [Moles/Vol] 136 mmol/L 133-145 [facility] Urine protein measurement (m ass/volume)Ordered By: Madeleine Benoit on 10-31-2024 Protein (U) [Mass/Vol] 139.0 mg/dL High 0.0-12.0 [facility] Urine protein/creatinine mas s ratioOrdered By: Madeleine Benoit on 10-31-2024 Protein/Creatinine (U) [Mass ratio] 1511 mg/g CRE High 0-200 [facility] Pulmonary Visit Reporton Pulmonary Visit Report Normal [facility] Cardiology Visit Reporton Cardiology Visit Report Normal [facility] MRI CARD MORPH FUNC WO/W IVC ONon 09-24-2024 MRI CARD MORPH FUNC WO/W IVCON * * *Final Report* * * DATE OF EXAM: Sep 24 2024 9:14AM [facility]ONNY [id number] - MRI CARD MORPH FUNC WO/W IVCON / PROCEDURE REASON: I42.9, R60.0, R25.10, E78.00, E78.2, R06.02 * * * * Physician Interpretation * * * * Cardiac MRI Report: [facility] Date of service: 09/24/2024 7:34:53 AM Linked orders:[id number] CARD MORPH FUNC WO/W IVCON;[id number] CARDIAC VELOCITY FLOW MAP. 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 Cardiomyopathy. Evaluation for cardiac sarcoidosis. This study is performed to quantify left/right ventricular size and function, valvular function, and to perform tissue characterization for the assessment of myocardial fibrosis/edema. MRI Techniques: * Turbo spin echo and gradient echo imaging for anatomic definition. * Dynamic cine imaging (SSFP and GRE) for cardiac chamber and wall-motion analysis, and valvular analysis. * Flow quantification sequences for hemodynamics in 2 locations: aortic root and mid-ascending aorta. * Delayed gadolinium enhancement analysis after injection of gadolinium-chelate. * T2STIR/ T2 Fat Saturated Imaging. * T1 mapping. * T2 mapping. Gadolinium Agent: 20 cc of Gadavist was administered. Baseline vital signs: 83 bpm Height: 177.80 cm BSA: 3.27 m? Weight: 216.80 kg BMI: 68.6 kg/m? FINDINGS: Extracardiac findings: The chest wall appears normal. No significant adenopathy is identified. Limited imaging of the lungs reveals no gross abnormalities. Aorta: The thoracic aorta is normal in course, caliber and contour. Sinus: 3.2 cm Sinotubular junction: 2.5 cm Mid ascendin.2 cm Descending mid thoracic: 19.3 cm Pulmonary Arteries: Pulmonary Arteries: Normal Measurements: - Main pulmonary artery diameter: 2.7 cm - Right pulmonary artery diameter: 1.8 cm - Left pulmonary artery diameter: 1.8 cm Left Atrium: The left atrium is normal in size. LA volume: 63 ml (normal range: 31-112 ml) LA volume index: 19 ml/m? (normal range: 14-55 ml/m?) LA area (4ch): 24 cm? LA area (2ch): 17 cm? Right Atrium: The right atrium is normal in size. RA volume: 54 ml (normal range: 24-105 ml) RA volume index: 17 ml/m? (normal range: 17-70 ml/m?) RA area (4ch): 18 cm? Left Ventricle: The left ventricle is small. Left ventricular systolic function is mildly decreased. value (normal range) indexed (normal range) EDV: 119 ml (83-207 ml) EDVi: 36 ml/m? (47-107 ml/m?) ESV: 60 ml (19-88 ml) ESVi: 18 ml/m? (11-47 ml/m?) SV: 59 ml (55-127 ml) SVi: 18 ml/m? (30-66 ml/m?) ALIREZA: 3.7 cm (4.2-6.2 cm) Leesa: 1.2 cm/m? (2.4-3.5 cm/m?) ESD: 3.1 cm (2.6-3.8 cm) ESDi: 1.0 cm/m? (1.5-2.2 cm/m?) EF: 50 % (51-76 %) CO: 4.9 l/min (3.9-8.3 l/min) CI: 1.5 l/min/m? (2.1-4.3 ml/min/m?) mass: 167 g (57-152 g) LVMi: 51 g/m? (36-75 g/m?) LV segment wall thickness: basal anteroseptum: 1.3 cm basal inferolateral: 1.1 cm Wall Motion: There is diffuse mild hypokinesis. Delayed Enhancement: There is no delayed enhancement. Constellation of findings could be suggestive of No significant myocardial disease. Right Ventricle: The right ventricle is small. Right ventricular systolic function is mildly decreased. value (normal range) indexed (normal range) EDV: 164 ml (87-244 ml) EDVi: 50 ml/m? (53-123 ml/m?) ESV: 106 ml (29-117 ml) ESVi: 32 ml/m? (17-59 ml/m?) SV: 58 ml (43-146 ml) SVi: 18 ml/m? (28-75 ml/m?) EF: 36 % (42-72 %) CO: 4.8 l/min (2.8-8.3 l/min) CI: 1.5 l/min/m? (1.5-4.5 l/min/m?) T1 / T2 / ECV T2 * : +------+ +---- --+ +------+ T1 pre (ms) +/- T1 post (ms) +/- +------+ +---- --+ +------+ Base 1008.30 129.15 443.43 82.54 +------+ +---- --+ +------+ Mid 935.07 46.28 500.46 55.10 +------+ +---- --+ +------+ [place] 917.99 78.22 421.04 164.44 +------+ +---- --+ +------+ Global 951.03 87.00 462.95 108.90 +------+ +---- --+ +------+ Normal values based on healthy individuals: T1: 950 +/- 21 ms; ECV: 26 +/- 4% T2 mapping: Global: 48.36 +/- 6.04 ms Pericardium: There is no pericardial effusion present. There is normal pericardial thickness. Limited imaging of the abdomen reveals no gross abnormalities. IMPRESSION: - The left ventricle is small (LV EDVi = 36 ml/m?). The left ventricular systolic function is mildly decreased (LV EF = 50 %). - The right ventricle is small (RV EDVi = 50 ml/m?). The right ventricular systolic function is mildly decreased (RV EF = 36 %). - The left ventricle appears to be globally hypokinetic. Regional wall motion appears to be (more content not included)... Normal [facility] MRI CARDIAC MORPH FUNC WO/W IVCONon 09-24-2024 IMPRESSION: - The left ventricle is small (LV EDVi = 36 ml/m ). The left ventricular systolic function is mildly decreased (LV EF = 50 %). - The right ventricle is small (RV EDVi = 50 ml/m ). The right ventricular systolic function is mildly decreased (RV EF = 36 %). - The left ventricle appears to be globally hypokinetic. Regional wall motion appears to be normal. - Late gadolinium enhancement (LGE) sequences indicated the presence of mild mid myocardial LGE involving the basal septum, scattered mid myocardial LGE involving the lateral, apical spears of the left ventricle. No myocardial edema is evident. The pattern is nonischemic, and is not strongly suggestive of an infiltrative cardiomyopathy such as sarcoidosis. There is no LGE involving the right ventricle either. Consider hypertensive cardiomyopathy, cardiomyopathy of connective tissue disease as likely differentials. - Visually, mild mitral regurgitation is seen. Calculated values do not appear to be accurate. - The patient has not had a prior CC cardiac MR exam for comparison. * * * Final * * * RP Manager Sharepoint: [employer] Date/Time: Sep 24 2024 7:34A Dictated by : JACQUELYN HODGE MD This examination was interpreted and the report reviewed and electronically signed by: JACQUELYN HODGE MD on Sep 24 2024 3:50PM EST [facility] * * *Final Report* * * DATE OF EXAM: Sep 24 2024 9:14AM [place] 0703 - MRI CARD MORPH FUNC WO/W IVCON / PROCEDURE REASON: I42.9, R60.0, R25.10, E78.00, E78.2, R06.02 * * * * Physician Interpretation * * * * Cardiac MRI Report: [facility] Date of service: 09/24/2024 7:34:53 AM Linked orders:[id number] CARD MORPH FUNC WO/W IVCON;[id number] CARDIAC VELOCITY FLOW MAP. 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 Cardiomyopathy. Evaluation for cardiac sarcoidosis. This study is performed to quantify left/right ventricular size and function, valvular function, and to perform tissue characterization for the assessment of myocardial fibrosis/edema. MRI Techniques: * Turbo spin echo and gradient echo imaging for anatomic definition. * Dynamic cine imaging (SSFP and GRE) for cardiac chamber and wall-motion analysis, and valvular analysis. * Flow quantification sequences for hemodynamics in 2 locations: aortic root and mid-ascending aorta. * Delayed gadolinium enhancement analysis after injection of gadolinium-chelate. * T2STIR/ T2 Fat Saturated Imaging. * T1 mapping. * T2 mapping. Gadolinium Agent: 20 cc of Gadavist was administered. Baseline vital signs: 83 bpm Height: 177.80 cm BSA: 3.27 m Weight: 216.80 kg BMI: 68.6 kg/m FINDINGS: Extracardiac findings: The chest wall appears normal. No significant adenopathy is identified. Limited imaging of the lungs reveals no gross abnormalities. Aorta: The thoracic aorta is normal in course, caliber and contour. Sinus: 3.2 cm Sinotubular junction: 2.5 cm Mid ascendin.2 cm Descending mid thoracic: 19.3 cm Pulmonary Arteries: Pulmonary Arteries: Normal Measurements: - Main pulmonary artery diameter: 2.7 cm - Right pulmonary artery diameter: 1.8 cm - Left pulmonary artery diameter: 1.8 cm Left Atrium: The left atrium is normal in size. LA volume: 63 ml (normal range: 31-112 ml) LA volume index: 19 ml/m (normal range: 14-55 ml/m ) LA area (4ch): 24 cm LA area (2ch): 17 cm Right Atrium: The right atrium is normal in size. RA volume: 54 ml (normal range: 24-105 ml) RA volume index: 17 ml/m (normal range: 17-70 ml/m ) RA area (4ch): 18 cm Left Ventricle: The left ventricle is small. Left ventricular systolic function is mildly decreased. value (normal range) indexed (normal range) EDV: 119 ml (83-207 ml) EDVi: 36 ml/m (47-107 ml/m ) ESV: 60 ml (19-88 ml) ESVi: 18 ml/m (11-47 ml/m ) SV: 59 ml (55-127 ml) SVi: 18 ml/m (30-66 ml/m ) ALIREZA: 3.7 cm (4.2-6.2 cm) Leesa: 1.2 cm/m (2.4-3.5 cm/m ) ESD: 3.1 cm (2.6-3.8 cm) ESDi: 1.0 cm/m (1.5-2.2 cm/m ) EF: 50 % (51-76 %) CO: 4.9 l/min (3.9-8.3 l/min) CI: 1.5 l/min/m (2.1-4.3 ml/min/m ) mass: 167 g (57-152 g) LVMi: 51 g/m (36-75 g/m ) LV segment wall thickness: basal anteroseptum: 1.3 cm basal inferolateral: 1.1 cm Wall Motion: There is diffuse mild hypokinesis. Delayed Enhancement: There is no delayed enhancement. Constellation of findings could be suggestive of No significant myocardial disease. Right Ventricle: The right ventricle is small. Right ventricular systolic function is mildly decreased. value (normal range) indexed (normal range) EDV: 164 ml (87-244 ml) EDVi: 50 ml/m (53-123 ml/m ) ESV: 106 ml (29-117 ml) ESVi: 32 ml/m (17-59 ml/m ) SV: 58 ml (43-146 ml) SVi: 18 ml/m (28-75 ml/m ) EF: 36 % (42-72 %) CO: 4.8 l/min (2.8-8.3 l/min) CI: 1.5 l/min/m (1.5-4.5 l/min/m ) T1 / T2 / ECV T2 * : +------+ +---- --+ +------+ T1 pre (ms) +/- T1 post (ms) +/- +------+ +---- --+ +------+ Base 1008.30 129.15 443.43 82.54 +------+ +---- --+ +------+ Mid 935.07 46.28 500.46 55.10 +------+ +---- --+ +------+ [place] 917.99 78.22 421.04 164.44 +------+ +---- --+ +------+ Global 951.03 87.00 462.95 108.90 +------+ +---- --+ +------+ Normal values based on healthy individuals: T1: 950 +/- 21 ms; ECV: 26 +/- 4% T2 mapping: Global: 48.36 +/- 6.04 ms Pericardium: There is no pericardial effusion present. There is normal pericardial thickness. Limited imaging of the abdomen reveals no gross abnormalities. [facility] Provider, Ccsenthil hyatt [place] - 09/24/2024 * * *Final Report* * * DATE OF EXAM: Sep 24 2024 9:14AM [place] [facility]703 - MRI CARD MORPH FUNC WO/W IVCON / PROCEDURE REASON: I42.9, R60.0, R25.10, E78.00, E78.2, R06.02 * * * * Physician Interpretation * * * * Cardiac MRI Report: [facility] Date of service: 09/24/2024 7:34:53 AM Linked orders:[id number] CARD MORPH FUNC WO/W IVCON;[id number] CARDIAC VELOCITY FLOW MAP. 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 Cardiomyopathy. Evaluation for cardiac sarcoidosis. This study is performed to quantify left/right ventricular size and function, valvular function, and to perform tissue characterization for the assessment of myocardial fibrosis/edema. MRI Techniques: * Turbo spin echo and gradient echo imaging for anatomic definition. * Dynamic cine imaging (SSFP and GRE) for cardiac chamber and wall-motion analysis, and valvular analysis. * Flow quantification sequences for hemodynamics in 2 locations: aortic root and mid-ascending aorta. * Delayed gadolinium enhancement analysis after injection of gadolinium-chelate. * T2STIR/ T2 Fat Saturated Imaging. * T1 mapping. * T2 mapping. Gadolinium Agent: 20 cc of Gadavist was administered. Baseline vital signs: 83 bpm Height: 177.80 cm BSA: 3.27 m Weight: 216.80 kg BMI: 68.6 kg/m FINDINGS: Extracardiac findings: The chest wall appears normal. No significant adenopathy is identified. Limited imaging of the lungs reveals no gross abnormalities. Aorta: The thoracic aorta is normal in course, caliber and contour. Sinus: 3.2 cm Sinotubular junction: 2.5 cm Mid ascendin.2 cm Descending mid thoracic: 19.3 cm Pulmonary Arteries: Pulmonary Arteries: Normal Measurements: - Main pulmonary artery diameter: 2.7 cm - Right pulmonary artery diameter: 1.8 cm - Left pulmonary artery diameter: 1.8 cm Left Atrium: The left atrium is normal in size. LA volume: 63 ml (normal range: 31-112 ml) LA volume index: 19 ml/m (normal range: 14-55 ml/m ) LA area (4ch): 24 cm LA area (2ch): 17 cm Right Atrium: The right atrium is normal in size. RA volume: 54 ml (normal range: 24-105 ml) RA volume index: 17 ml/m (normal range: 17-70 ml/m ) RA area (4ch): 18 cm Left Ventricle: The left ventricle is small. Left ventricular systolic function is mildly decreased. value (normal range) indexed (normal range) EDV: 119 ml (83-207 ml) EDVi: 36 ml/m (47-107 ml/m ) ESV: 60 ml (19-88 ml) ESVi: 18 ml/m (11-47 ml/m ) SV: 59 ml (55-127 ml) SVi: 18 ml/m (30-66 ml/m ) ALIREZA: 3.7 cm (4.2-6.2 cm) Leesa: 1.2 cm/m (2.4-3.5 cm/m ) ESD: 3.1 cm (2.6-3.8 cm) ESDi: 1.0 cm/m (1.5-2.2 cm/m ) EF: 50 % (51-76 %) CO: 4.9 l/min (3.9-8.3 l/min) CI: 1.5 l/min/m (2.1-4.3 ml/min/m ) mass: 167 g (57-152 g) LVMi: 51 g/m (36-75 g/m ) LV segment wall thickness: basal anteroseptum: 1.3 cm basal inferolateral: 1.1 cm Wall Motion: There is diffuse mild hypokinesis. Delayed Enhancement: There is no delayed enhancement. Constellation of findings could be suggestive of No significant myocardial disease. Right Ventricle: The right ventricle is small. Right ventricular systolic function is mildly decreased. value (normal range) indexed (normal range) EDV: 164 ml (87-244 ml) EDVi: 50 ml/m (53-123 ml/m ) ESV: 106 ml (29-117 ml) ESVi: 32 ml/m (17-59 ml/m ) SV: 58 ml (43-146 ml) SVi: 18 ml/m (28-75 ml/m ) EF: 36 % (42-72 %) CO: 4.8 l/min (2.8-8.3 l/min) CI: 1.5 l/min/m (1.5-4.5 l/min/m ) T1 / T2 / ECV T2 * : +------+ +---- --+ +------+ T1 pre (ms) +/- T1 post (ms) +/- +------+ +---- --+ +------+ Base 1008.30 129.15 443.43 82.54 +------+ +---- --+ +------+ Mid 935.07 46.28 500.46 55.10 +------+ +---- --+ +------+ [place] 917.99 78.22 421.04 164.44 +------+ +---- --+ +------+ Global 951.03 87.00 462.95 108.90 +------+ +---- --+ +------+ Normal values based on healthy individuals: T1: 950 +/- 21 ms; ECV: 26 +/- 4% T2 mapping: Global: 48.36 +/- 6.04 ms Pericardium: There is no pericardial effusion present. There is normal pericardial thickness. Limited imaging of the abdomen reveals no gross abnormalities. IMPRESSION IMPRESSION: - The left ventricle is small (LV EDVi = 36 ml/m ). The left ventricular systolic function is mildly decreased (LV EF = 50 %). - The right ventricle is small (RV EDVi = 50 ml/m ). The right ventricular sys (more content not included)... [facility] Radiology Study observation (narrative) [facility] MRI CARDIAC MORPH FUNC WO/W IVCONOrdered By: [facility]cf Provider on 09-24-2024 [facility] MRI CARDIAC VELOCITY FLOW MA Boy 09-24-2024 MRI CARDIAC VELOCITY FLOW MAP * * *Final Report* * * DATE OF EXAM: Sep 24 2024 9:14AM [facility] 0704 - MRI CARDIAC VELOCITY FLOW MAP / PROCEDURE REASON: I42.9, R60.0, R25.10, E78.00, E78.2, R06.02 * * * * Physician Interpretation * * * * Cardiac MRI Report: [facility] Date of service: 09/24/2024 7:34:53 AM Linked orders:[id number] CARD MORPH FUNC WO/W IVCON;[id number] CARDIAC VELOCITY FLOW MAP. 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 Cardiomyopathy. Evaluation for cardiac sarcoidosis. This study is performed to quantify left/right ventricular size and function, valvular function, and to perform tissue characterization for the assessment of myocardial fibrosis/edema. MRI Techniques: * Turbo spin echo and gradient echo imaging for anatomic definition. * Dynamic cine imaging (SSFP and GRE) for cardiac chamber and wall-motion analysis, and valvular analysis. * Flow quantification sequences for hemodynamics in 2 locations: aortic root and mid-ascending aorta. * Delayed gadolinium enhancement analysis after injection of gadolinium-chelate. * T2STIR/ T2 Fat Saturated Imaging. * T1 mapping. * T2 mapping. Gadolinium Agent: 20 cc of Gadavist was administered. Baseline vital signs: 83 bpm Height: 177.80 cm BSA: 3.27 m? Weight: 216.80 kg BMI: 68.6 kg/m? FINDINGS: Extracardiac findings: The chest wall appears normal. No significant adenopathy is identified. Limited imaging of the lungs reveals no gross abnormalities. Aorta: The thoracic aorta is normal in course, caliber and contour. Sinus: 3.2 cm Sinotubular junction: 2.5 cm Mid ascendin.2 cm Descending mid thoracic: 19.3 cm Pulmonary Arteries: Pulmonary Arteries: Normal Measurements: - Main pulmonary artery diameter: 2.7 cm - Right pulmonary artery diameter: 1.8 cm - Left pulmonary artery diameter: 1.8 cm Left Atrium: The left atrium is normal in size. LA volume: 63 ml (normal range: 31-112 ml) LA volume index: 19 ml/m? (normal range: 14-55 ml/m?) LA area (4ch): 24 cm? LA area (2ch): 17 cm? Right Atrium: The right atrium is normal in size. RA volume: 54 ml (normal range: 24-105 ml) RA volume index: 17 ml/m? (normal range: 17-70 ml/m?) RA area (4ch): 18 cm? Left Ventricle: The left ventricle is small. Left ventricular systolic function is mildly decreased. value (normal range) indexed (normal range) EDV: 119 ml (83-207 ml) EDVi: 36 ml/m? (47-107 ml/m?) ESV: 60 ml (19-88 ml) ESVi: 18 ml/m? (11-47 ml/m?) SV: 59 ml (55-127 ml) SVi: 18 ml/m? (30-66 ml/m?) ALIREZA: 3.7 cm (4.2-6.2 cm) Leesa: 1.2 cm/m? (2.4-3.5 cm/m?) ESD: 3.1 cm (2.6-3.8 cm) ESDi: 1.0 cm/m? (1.5-2.2 cm/m?) EF: 50 % (51-76 %) CO: 4.9 l/min (3.9-8.3 l/min) CI: 1.5 l/min/m? (2.1-4.3 ml/min/m?) mass: 167 g (57-152 g) LVMi: 51 g/m? (36-75 g/m?) LV segment wall thickness: basal anteroseptum: 1.3 cm basal inferolateral: 1.1 cm Wall Motion: There is diffuse mild hypokinesis. Delayed Enhancement: There is no delayed enhancement. Constellation of findings could be suggestive of No significant myocardial disease. Right Ventricle: The right ventricle is small. Right ventricular systolic function is mildly decreased. value (normal range) indexed (normal range) EDV: 164 ml (87-244 ml) EDVi: 50 ml/m? (53-123 ml/m?) ESV: 106 ml (29-117 ml) ESVi: 32 ml/m? (17-59 ml/m?) SV: 58 ml (43-146 ml) SVi: 18 ml/m? (28-75 ml/m?) EF: 36 % (42-72 %) CO: 4.8 l/min (2.8-8.3 l/min) CI: 1.5 l/min/m? (1.5-4.5 l/min/m?) T1 / T2 / ECV T2 * : +------+ +---- --+ +------+ T1 pre (ms) +/- T1 post (ms) +/- +------+ +---- --+ +------+ Base 1008.30 129.15 443.43 82.54 +------+ +---- --+ +------+ Mid 935.07 46.28 500.46 55.10 +------+ +---- --+ +------+ [place] 917.99 78.22 421.04 164.44 +------+ +---- --+ +------+ Global 951.03 87.00 462.95 108.90 +------+ +---- --+ +------+ Normal values based on healthy individuals: T1: 950 +/- 21 ms; ECV: 26 +/- 4% T2 mapping: Global: 48.36 +/- 6.04 ms Pericardium: There is no pericardial effusion present. There is normal pericardial thickness. Limited imaging of the abdomen reveals no gross abnormalities. IMPRESSION: - The left ventricle is small (LV EDVi = 36 ml/m?). The left ventricular systolic function is mildly decreased (LV EF = 50 %). - The right ventricle is small (RV EDVi = 50 ml/m?). The right ventricular systolic function is mildly decreased (RV EF = 36 %). - The left ventricle appears to be globally hypokinetic. Regional wall motion appears to be n (more content not included)... Normal [facility] CNPNon 09-13-2024 CNPN Telephone ([facility]) -------- CHRISTA SILVERMAN ([id number]) 1975 M Date Time Provider Department 09/13/24 KATY MARSH During your visit today, we recorded the following information about you: Katy Marsh RT([place]) 09/13/2024 2:15 PM Signed Please provide protocol for this patients CMR scheduled for 09/24/2024, thank you! Jacquelyn Hodge MD 09/16/2024 11:35 AM Signed Sarcoid protocol Hello, Get the dark, and bright bloods, STIR the 4 C, 2 C, one short axis, inject contrast, get first pass, and get delayed images at 8 min (4C, 2C, 3C, SA). T1 ( 3 levels base, mid apex), T2 mapping, T2* required. Qp, Qs ONLY if ordered, not required. If you do them, pls make sure there is no aliasing in the Qp or Qs. I would get QS ( ascending aorta at the level of the main PA. Make sure that you are perpendicular to the ascending aorta using the 3C, LVOT long) at venc 200, 250, 300 or even higher until the aliasing disappears completely. Thanks, Dr Hodge Allergies As of Date: 09/13/2024 (No Known Allergies) Date Reviewed: 08/17/2021 Reviewed by: Jyothi Mosley MA - Fully Assessed Prescriptions as of 09/16/2024 - HUMALOG MIX 50-50 INSULN U-100 100 unit/mL (50-50) susp twice daily. - atorvastatin (LIPITOR) 20 mg tablet Take 20 mg by mouth daily at bedtime. - TRULICITY 4.5 mg/0.5 mL pen injector one time a week. - cholecalciferol, Vitamin D3, (VITAMIN D3) 1,250 mcg (50,000 unit) cap capsule Take 1 capsule by mouth one time a week. - Magnesium 250 mg tab Take 250 mg by mouth once daily. - metoprolol tartrate, short acting, (LOPRESSOR) 50 mg tablet twice daily. - aspirin, enteric coated (ASPIRIN, ENTERIC COATED) 81 mg EC tablet Take 81 mg by mouth once daily. - LEVOTHYROXINE SODIUM (LEVOTHYROXINE, BULK, MISC) 175 mcg once daily as needed. Problem List As Of Date 09/13/2024 Noted Resolved Immune thrombocytopenic purpura (HCC) [D69.3] 08/17/2021 Fatty liver [K76.0] 08/17/2021 Diabetes mellitus due to underlying condition w*08/17/2021 Hypothyroidism [E03.9] 08/17/2021 Encounter Status:Closed by KATY MARSH on 09/13/24 Normal [facility] Pulmonary Visit Reporton Pulmonary Visit Report Normal [facility] Gastroenterology Visit Repor ton 08-22-2024 Gastroenterology Visit Report Normal [facility] Pulmonary Visit Reporton Pulmonary Visit Report Normal [facility] Pulmonary Visit Reporton Pulmonary Visit Report Normal [facility] Anion gap in Serum or Plasma Ordered By: Madeleine Benoit on 07-16-2024 Anion gap [Moles/Vol] 12 mmol/L 5-15 [facility] BUN/creatinine ratioOrdered By: Madeleine Benoit on 07-16-2024 Urea nitrogen/Creatinine [Mass ratio] 25.7 mg/mg High 10-20 [facility] Basic Metabolic Profile (BMP )on 07-16-2024 BUN/CRE 25.7 RATIO High - [facility] Comment on above: Performed By: #### L 501.0900, L500.2500 ####[facility] [address] [place], [address] Calcium [Mass/Vol] 9.2 mg/dL Normal 7.6-11.0 [facility] Comment on above: Performed By: #### L 501.0900, L500.2500 ####[facility] [address] [place], [address] Chloride [Moles/Vol] 104 mmol/L Normal 98-108 [facility] Comment on above: Performed By: #### L 501.0900, L500.2500 ####[facility] [address] [place], [address] CO2 [Moles/Vol] 17.4 mmol/L Low 21.0-32.0 [facility] Comment on above: Performed By: #### L 501.0900, L500.2500 ####[facility] [address] [place], [address] Creatinine [Mass/Vol] 1.56 mg/dL High 0.70-1.20 [facility] Comment on above: Performed By: #### L 501.0900, L500.2500 ####[facility] [address], [address] GAP 12 Normal 5-15 [facility] Comment on above: Performed By: #### L 501.0900, L500.2500 ####[facility] [address] [place], [address] GFR/1.73 sq M.predicted among non-blacks MDRD (S/P/Bld) [Vol rate/Area] 54 mL/min/{1.73_m2} Low >60 [facility] Comment on above: Result Comment: mL/m in/1.73m2 CKD-EPI Creatinine Equation (2020) Performed By: #### L 501.0900, L500.2500 ####[facility] [address] [place], [address] Glucose [Mass/Vol] 223 mg/dL High 70-99 [facility] Comment on above: Performed By: #### L 501.0900, L500.2500 ####[facility] [address] [place], [address] Potassium [Moles/Vol] 3.8 mmol/L Normal 3.3-5.1 [facility] Comment on above: Performed By: #### L 501.0900, L500.2500 ####[facility] [address] [place], [address] Sodium [Moles/Vol] 134 mmol/L Normal 133-145 [facility] Comment on above: Performed By: #### L 501.0900, L500.2500 ####[facility] [address] [place], [address] Urea nitrogen [Mass/Vol] 40 mg/dL High 4-19 [facility] Comment on above: Performed By: #### L 501.0900, L500.2500 ####[facility] [address] [place], [address] Carbon dioxide, total [Moles /volume] in Central venous bloodOrdered By: Madeleine Benoit on 07-16-2024 CO2 [Moles/Vol] 17.4 mmol/L Low 21.0-32.0 [facility] Chloride assayOrdered By: Reece Benoit on 07-16-2024 Chloride [Moles/Vol] 104 mmol/L 98-108 [facility] Glomerular filtration rate ( GFR) estimation/1.73 sq m using serum, plasma, or whole bOrdered By: Madeleine Benoit on 07-16-2024 GFR/1.73 sq M.predicted among non-blacks MDRD (S/P/Bld) [Vol rate/Area] 54 mL/min/{1.73_m2} Low >60 [facility] [facility] Comment on above: mL/min/1.73m2 CKD-EP I Creatinine Equation (2020) Potassium measurement (mass/ volume)Ordered By: Madeleine Benoit on 07-16-2024 Potassium (Unsp spec) [Mass/Vol] 3.8 mmol/L 3.3-5.1 [facility] Protein+Creatinine Ratio,Uri neon 07-16-2024 PROT:CRE RATIO 767 mg/g CRE High 0-200 [facility] Comment on above: Performed By: #### L 501.0900, L500.2500 ####[facility] [address] [place], [address] Protein (U) [Mass/Vol] 53.4 mg/dL High 0.0-12.0 [facility] Comment on above: Performed By: #### L 501.0900, L500.2500 ####[facility] [address] [place], [address] UR CREAT 69.60 mg/dL Normal 39.00-259.00 [facility] Comment on above: Performed By: #### L 501.0900, L500.2500 ####[facility] [address] [place], [address] Random urine creatinine camacho urement (mass/volume)Ordered By: Madeleine Benoit on 07-16-2024 Creatinine Unsp time (U) [Mass/Vol] 69.60 mg/dL 39.00-259.00 [facility] Serum creatinine measurement (mass/volume)Ordered By: Madeleine Benoit on 07-16-2024 Creatinine [Mass/Vol] 1.56 mg/dL High 0.70-1.20 [facility] Serum glucose measurement (m ass/volume)Ordered By: Madeleine Benoit on 07-16-2024 Glucose [Mass/Vol] 223 mg/dL High 70-99 [facility] Serum or plasma calcium camacho urement (mass/volume)Ordered By: Madeleine Benoit on 07-16-2024 Calcium [Mass/Vol] 9.2 mg/dL 7.6-11.0 [facility] Serum or plasma urea nitroge n measurement (mass/volume)Ordered By: Madeleine Benoit on 07-16-2024 Urea nitrogen [Mass/Vol] 40 mg/dL High 4-19 [facility] Sodium levelOrdered By: Nilton Benoit on 07-16-2024 Sodium [Moles/Vol] 134 mmol/L 133-145 [facility] Urine protein measurement (m ass/volume)Ordered By: Madeleine Benoit on 07-16-2024 Protein (U) [Mass/Vol] 53.4 mg/dL High 0.0-12.0 [facility] Urine protein/creatinine mas s ratioOrdered By: Madeleine Benoit on 07-16-2024 Protein/Creatinine (U) [Mass ratio] 767 mg/g CRE High 0-200 [facility] Endocrinology Visit Reporton 07-11-2024 Endocrinology Visit Report Normal [facility] Laboratory - Hematology and Cell countsOrdered By: Emy Lee on 07-11-2024 HbA1c (Bld) [Mass fraction] 6.0 % 4.2-6.3 [facility] No Panel InformationOrdered By: Emy Lee on 07-11-2024 6.0 % 4.2-6.3 [facility] Cardiology Visit Reporton Cardiology Visit Report Normal [facility] Chest without Contraston Chest without Contrast Normal [facility] L501.2276on 06-25-2024 Ionized Calcium 1.60 mmol/L High 1.09-1.30 [facility] Comment on above: Performed By: #### L 501.2276 ####[facility] [address] [place], [address] Anion gap in Serum or Plasma Ordered By: Marce Donahue on 06-24-2024 Anion gap [Moles/Vol] 13 mmol/L 07-25 [facility] BUN/creatinine ratioOrdered By: Marce Donahue on 06-24-2024 Urea nitrogen/Creatinine [Mass ratio] 22.7 mg/mg High 12-30 [facility] Basic Metabolic Profile (BMP )on 06-24-2024 BUN/CRE 22.7 RATIO High 12-30 [facility] Comment on above: Performed By: #### L 500.2500 ####[facility] [address] [place], [address] Calcium [Mass/Vol] 9.6 mg/dL Normal 7.6-11.0 [facility] Comment on above: Performed By: #### L 500.2500 ####[facility] [address] [place], [address] Chloride [Moles/Vol] 100 mmol/L Normal 98-108 [facility] Comment on above: Performed By: #### L 500.2500 ####[facility] [address] [place], [address] CO2 [Moles/Vol] 17.2 mmol/L Low 21.0-32.0 [facility] Comment on above: Performed By: #### L 500.2500 ####[facility] [address] [place], [address] Creatinine [Mass/Vol] 2.06 mg/dL High 0.70-1.20 [facility] Comment on above: Performed By: #### L 500.2500 ####[facility] [address] [place], [address] GAP 13 Normal 5-15 [facility] Comment on above: Performed By: #### L 500.2500 ####[facility] [address] [place], [address] GFR/1.73 sq M.predicted among non-blacks MDRD (S/P/Bld) [Vol rate/Area] 39 mL/min/{1.73_m2} Low >60 [facility] Comment on above: Result Comment: mL/m in/1.73m2 CKD-EPI Creatinine Equation (2020) Performed By: #### L 500.2500 ####[facility] [address] [place], [address] Glucose [Mass/Vol] 106 mg/dL High 70-99 [facility] Comment on above: Performed By: #### L 500.2500 ####[facility] [address] [place], [address] Potassium [Moles/Vol] 4.4 mmol/L Normal 3.3-5.1 [facility] Comment on above: Performed By: #### L 500.2500 ####[facility] [address] [place], [address] Sodium [Moles/Vol] 131 mmol/L Low 133-145 [facility] Comment on above: Performed By: #### L 500.2500 ####[facility] [address] [place], [address] Urea nitrogen [Mass/Vol] 47 mg/dL High 4-19 [facility] Comment on above: Performed By: #### L 500.2500 ####[facility] [address] [place], [address] Carbon dioxide, total [Moles /volume] in Central venous bloodOrdered By: Marce Donahue on 06-24-2024 CO2 [Moles/Vol] 17.2 mmol/L Low 21.0-32.0 [facility] Chloride assayOrdered By: Alyssa Donahue on 06-24-2024 Chloride [Moles/Vol] 100 mmol/L 98-108 [facility] GFR/1.73 sq M.predicted corina g non-blacks MDRD (S/P/Bld) [Vol rate/Area]Ordered By: Marce Donahue on 06-24-2024 Estimated GFR (MDRD) Non-Af Amer 39 Low >60 [facility] Comment on above: mL/min/1.73m2 CKD-EP I Creatinine Equation (2020) Glomerular filtration rate ( GFR) estimation/1.73 sq m using serum, plasma, or whole bOrdered By: Marce Donahue on 06-24-2024 GFR/1.73 sq M.predicted among non-blacks MDRD (S/P/Bld) [Vol rate/Area] 39 mL/min/{1.73_m2} Low >60 [facility] Comment on above: mL/min/1.73m2 CKD-EP I Creatinine Equation (2020) Potassium (Unsp spec) [Mass/ Vol]Ordered By: Marce Donahue on 06-24-2024 Potassium [Moles/Vol] 4.4 mmol/L 3.3-5.1 [facility] Potassium measurement (mass/ volume)Ordered By: Marce Donahue on 06-24-2024 Potassium (Unsp spec) [Mass/Vol] 4.4 mmol/L 3.3-5.1 [facility] Serum creatinine measurement (mass/volume)Ordered By: Marce Donahue on 06-24-2024 Creatinine [Mass/Vol] 2.06 mg/dL High 0.70-1.20 [facility] Serum glucose measurement (m ass/volume)Ordered By: Marce Donahue on 06-24-2024 Glucose [Mass/Vol] 106 mg/dL High 70-99 [facility] Serum or plasma calcium camacho urement (mass/volume)Ordered By: Marcecory Donahue on 06-24-2024 Calcium [Mass/Vol] 9.6 mg/dL 7.6-11.0 [facility] Serum or plasma urea nitroge n measurement (mass/volume)Ordered By: Marcecory Donahue on 06-24-2024 Urea nitrogen [Mass/Vol] 47 mg/dL High 4-19 [facility] Sodium levelOrdered By: Dolores Doanhue on 06-24-2024 Sodium [Moles/Vol] 131 mmol/L Low 133-145 [facility] GHASSAN + Prot Electro 24 HR URo n 06-19-2024 ALBUMIN,U 34.2 Normal . [facility] Comment on above: Performed By: #### L 3600.3920 ####[facility] [address] [place], [address] ZMLVQ-1-DFRZ,U 5.5 Normal . [facility] Comment on above: Performed By: #### L 3600.3920 ####[facility] [address] [place], [address] BUZRM-1-FKHG,U 10.1 Normal . [facility] Comment on above: Performed By: #### L 3600.3920 ####[facility] [address] [place], [address] BETA GLOB,U 28.3 Normal . [facility] Comment on above: Performed By: #### L 3600.3920 ####[facility] [address] [place], [address] GAMMA GLOB,U 21.8 Normal . [facility] Comment on above: Performed By: #### L 3600.3920 ####[facility] [address] [place], [address] GHASSAN RESULT,U Comment Normal . [facility] Comment on above: Result Comment: No m onoclonality detected. Performed By: #### L 3600.3920 ####[facility] [address] [place], [address] M-SPIKE,U mg/24 TNP Normal . [facility] Comment on above: Performed By: #### L 3600.3920 ####[facility] [address] [place], [address] M-SPIKE,UR% Not Observed Normal Not Observed [facility] Comment on above: Performed By: #### L 3600.3920 ####[facility] [address] [place], [address] NOTE Comment Normal . [facility] Comment on above: Result Comment: Prot ein electrophoresis scan will follow via computer,mail, or manager personal delivery.Performed at: [facility] [employer] [facility] [id number] Director: Chidi Roger PhD, Phone: [phone] Performed By: #### L 3600.3920 ####[facility] [address] [place], [address] Protein (U) [Mass/Vol] 18.2 mg/dL Normal Not Estab. [facility] Comment on above: Performed By: #### L 3600.3920 ####[facility] [address] [place], [address] PROTEIN, U24 728 mg/24 hr High 30-150 [facility] Comment on above: Performed By: #### L 3600.3920 ####[facility] [address] [place], [address] Absolute lymphocyte countOrd ered By: Hipolito Jackson on 06-18-2024 Lymphocytes Auto (Unsp spec) [#/Vol] 0.51 10*3/uL Low 0.83-4.51 [facility] Absolute neutrophil countOrd ered By: Hipolito Jackson on 06-18-2024 Neutrophils (Bld) [#/Vol] 3.3 10*3/uL 2.0-7.7 [facility] Angiotensin Convert Enzymeon 06-18-2024 ANGIOT-CONV.ENZ < 15 Normal 14-82 [facility] Comment on above: Result Comment: Perf ormed at: - [facility] [address] [id number] Director: Chidi Roger PhD, Phone: [phone] Performed By: #### L 7447.5789 ####[facility] [address] [place], [address] Anion gap in Serum or Plasma Ordered By: Hipolito Jackson on 06-18-2024 Anion gap [Moles/Vol] 13 mmol/L 5-15 [facility] Automated lymphocyte count a s percentage of total leukocytesOrdered By: Hipolito Jackson on 06-18-2024 Lymphocytes/100 WBC Auto (Unsp spec) 12.2 % Low 19-41 [facility] BUN/creatinine ratioOrdered By: Hipolito Jackson on 06-18-2024 Urea nitrogen/Creatinine [Mass ratio] 16.2 mg/mg 10-20 [facility] Basic Metabolic Profile (BMP )on 06-18-2024 BUN/CRE 16.2 RATIO Normal 10-20 [facility] Comment on above: Performed By: #### L 500.2500, L100.0100 ####[facility] [address] [place], [address] Calcium [Mass/Vol] 10.4 mg/dL Normal 7.6-11.0 [facility] Comment on above: Performed By: #### L 500.2500, L100.0100 ####[facility] [address] [place], [address] Chloride [Moles/Vol] 103 mmol/L Normal 98-108 [facility] Comment on above: Performed By: #### L 500.2500, L100.0100 ####[facility] [address] [place], [address] CO2 [Moles/Vol] 14.2 mmol/L Low 21.0-32.0 [facility] Comment on above: Performed By: #### L 500.2500, L100.0100 ####[facility] [address] [place], [address] Creatinine [Mass/Vol] 2.36 mg/dL High 0.70-1.20 [facility] Comment on above: Performed By: #### L 500.2500, L100.0100 ####[facility] [address] [place], [address] ECRCL 71.08 ml/min Normal 50-250 [facility] Comment on above: Performed By: #### L 500.2500, L100.0100 ####[facility] [address] [place], [address] GAP 13 Normal 5-15 [facility] Comment on above: Performed By: #### L 500.2500, L100.0100 ####[facility] [address] [place], [address] GFR/1.73 sq M.predicted among non-blacks MDRD (S/P/Bld) [Vol rate/Area] 33 mL/min/{1.73_m2} Low >60 [facility] Comment on above: Result Comment: mL/m in/1.73m2 CKD-EPI Creatinine Equation (2020) Performed By: #### L 500.2500, L100.0100 ####[facility] [address] [place], [address] Glucose [Mass/Vol] 144 mg/dL High 70-99 [facility] Comment on above: Performed By: #### L 500.2500, L100.0100 ####[facility] [address] [place], [address] Potassium [Moles/Vol] 4.3 mmol/L Normal 3.3-5.1 [facility] Comment on above: Performed By: #### L 500.2500, L100.0100 ####[facility] [address] [place], [address] Sodium [Moles/Vol] 131 mmol/L Low 133-145 [facility] Comment on above: Performed By: #### L 500.2500, L100.0100 ####[facility] [address] [place], [address] Urea nitrogen [Mass/Vol] 38 mg/dL High 4-19 [facility] Comment on above: Performed By: #### L 500.2500, L100.0100 ####[facility] [address] [place], [address] Basophil percentageOrdered B y: Hipolito Jackson on 06-18-2024 Basophils/100 WBC (Bld) 0.2 % 0-1 [facility] Bedside Glucoseon 06-18-2024 FINGERSTICK GLU 167 mg/dL High 74-106 [facility] Comment on above: Result Comment: THADDEUS GEMENT OF PATIENT CARE PER NURSING PROTOCOL Performed By: #### L 501.080 ####[facility] [address] [place], [address] FINGERSTICK GLU 136 mg/dL High 74-106 [facility] Comment on above: Result Comment: THADDEUS GEMENT OF PATIENT CARE PER NURSING PROTOCOL Performed By: #### L 501.080 ####[facility] [address] [place], [address] CBC W/Diff, Automatedon 04-0 Absolute Lymph 0.51 X10 3/uL Low 0.83-4.51 [facility] Comment on above: Performed By: #### L 500.2500, L100.0100 ####[facility] [address] [place], [address] Absolute Neut 3.3 X10 3/uL Normal 2.0-7.7 [facility] Comment on above: Performed By: #### L 500.2500, L100.0100 ####[facility] [address] [place], [address] Basophils/100 WBC (Bld) 0.2 % Normal 0-1 [facility] Comment on above: Performed By: #### L 500.2500, L100.0100 ####[facility] [address] [place], [address] Eosinophils/100 WBC (Bld) 0.2 % Normal 0-5 [facility] Comment on above: Performed By: #### L 500.2500, L100.0100 ####[facility] [address] [place], [address] Erythrocyte distribution width (RBC) [Ratio] 15.9 % High 11.6-14.6 [facility] Comment on above: Performed By: #### L 500.2500, L100.0100 ####[facility] [address] [place], [address] Hematocrit (Bld) [Volume fraction] 32.3 % Low 40-54 [facility] Comment on above: Performed By: #### L 500.2500, L100.0100 ####[facility] [address] [place], [address] Hemoglobin (Bld) [Mass/Vol] 11.6 g/dL Low 13.0-16.5 [facility] Comment on above: Performed By: #### L 500.2500, L100.0100 ####[facility] [address] [place], [address] IG% 0.700 Normal 0.0-0.9 [facility] Comment on above: Result Comment: IG% - Immature Granulocytes (promyelocytes, myelocytes andmetamyelocytes) > 1% indicates that a LEFT SHIFT is Present. Performed By: #### L 500.2500, L100.0100 ####[facility] [address] [place], [address] Lymphocytes/100 WBC (Bld) 12.2 % Low 19-41 [facility] Comment on above: Performed By: #### L 500.2500, L100.0100 ####[facility] [address] [place], [address] MCH (RBC) [Entitic mass] 33.0 pg High 27.0-32.0 [facility] Comment on above: Performed By: #### L 500.2500, L100.0100 ####[facility] [address] [place], [address] MCHC (RBC) [Mass/Vol] 35.9 g/dL Normal 32-36 [facility] Comment on above: Performed By: #### L 500.2500, L100.0100 ####[facility] [address] [place], [address] MCV (RBC) [Entitic vol] 92.0 fL Normal 80-94 [facility] Comment on above: Performed By: #### L 500.2500, L100.0100 ####[facility] [address] [place], [address] Monocytes/100 WBC (Bld) 9.1 % Normal 0-10 [facility] Comment on above: Performed By: #### L 500.2500, L100.0100 ####[facility] [address] [place], [address] Neutrophils/100 WBC (Bld) 77.6 % High 47-70 [facility] Comment on above: Performed By: #### L 500.2500, L100.0100 ####[facility] [address] [place], [address] Nucleated RBC (Bld) [#/Vol] 0 10*3/uL Normal 0-5 [facility] Comment on above: Performed By: #### L 500.2500, L100.0100 ####[facility] [address] [place], [address] Platelet mean volume (Bld) [Entitic vol] 9.2 fL Normal 6.2-12.0 [facility] Comment on above: Performed By: #### L 500.2500, L100.0100 ####[facility] [address] [place], [address] Platelets (Bld) [#/Vol] 114 10*3/uL Low 150-450 [facility] Comment on above: Performed By: #### L 500.2500, L100.0100 ####[facility] [address] [place], [address] RBC (Bld) [#/Vol] 3.51 10*6/uL Low 4.6-6.2 [facility] Comment on above: Performed By: #### L 500.2500, L100.0100 ####[facility] [address] [place], [address] RDW SD 53.3 fl High 35.1-43.9 [facility] Comment on above: Performed By: #### L 500.2500, L100.0100 ####[facility] [address] [place], [address] WBC (Bld) [#/Vol] 4.2 10*3/uL Low 4.4-11.0 [facility] Comment on above: Performed By: #### L 500.2500, L100.0100 ####[facility] [address] [place], [address] Carbon dioxide, total [Moles /volume] in Central venous bloodOrdered By: Hipolito Jackson on 06-18-2024 CO2 [Moles/Vol] 14.2 mmol/L Low 21.0-32.0 [facility] Chloride assayOrdered By: Meet Jackson on 06-18-2024 Chloride [Moles/Vol] 103 mmol/L 98-108 [facility] Discharge Instructionon 04-0 Discharge Instruction Normal [facility] Eosinophil percentageOrdered By: Hipolito Jackson on 06-18-2024 Eosinophils/100 WBC (Bld) 0.2 % 0-5 [facility] Erythrocyte distribution wid th (RBC) [Ratio]Ordered By: Hipolito Jacskon on 06-18-2024 Erythrocyte distribution width (RBC) [Entitic vol] 53.3 fL High 35.1-43.9 [facility] Erythrocyte distribution wid th ratioOrdered By: Hipolito Jackson on 06-18-2024 Erythrocyte distribution width (RBC) [Ratio] 15.9 % High 11.6-14.6 [facility] Erythrocyte distribution wid th standard deviationOrdered By: Hipolito Jackson on 06-18-2024 Erythrocyte distribution width (RBC) [Ratio] 53.3 fl High 35.1-43.9 [facility] Estimation of creatinine kel aranceOrdered By: Hipolito Jackson on 06-18-2024 Estimated Creatinine Clearance Calc 71.08 ml/min 50-250 [facility] GFR/1.73 sq M.predicted corina g non-blacks MDRD (S/P/Bld) [Vol rate/Area]Ordered By: Hipolito Jackson on 06-18-2024 Estimated GFR (MDRD) Non-Af Amer 33 Low >60 [facility] Comment on above: mL/min/1.73m2 CKD-EP I Creatinine Equation (2020) Glomerular filtration rate ( GFR) estimation/1.73 sq m using serum, plasma, or whole bOrdered By: Hipolito Jackson on 06-18-2024 GFR/1.73 sq M.predicted among non-blacks MDRD (S/P/Bld) [Vol rate/Area] 33 mL/min/{1.73_m2} Low >60 [facility] Comment on above: mL/min/1.73m2 CKD-EP I Creatinine Equation (2020) [facility] By: Pastora Terry on 06-18-2024 Bedside Glucose (Misc Panel) 167 mg/dL High 74-106 [facility] Comment on above: MANAGEMENT OF PATIEN T CARE PER NURSING PROTOCOL Glucose [Mass/Vol] 167 mg/dL High 74-106 [facility] Comment on above: MANAGEMENT OF PATIEN T CARE PER NURSING PROTOCOL Hematocrit Auto (Bld) [Volum e fraction]Ordered By: Hipolito Jackson on 06-18-2024 Hematocrit (Bld) [Volume fraction] 32.3 % Low 40-54 [facility] Hemoglobin measurementOrdere d By: Hipolito Jackson on 06-18-2024 Hemoglobin (Bld) [Mass/Vol] 11.6 g/dL Low 13.0-16.5 [facility] Immature granulocytes/100 WB C Auto (Bld)Ordered By: Hipolito Jackson on 06-18-2024 Immature granulocytes/100 WBC (Bld) 0.700 % 0.0-0.9 [facility] Comment on above: IG% - Immature Granu locytes (promyelocytes, myelocytes and metamyelocytes) > 1% indicates that a LEFT SHIFT is Present. Lymphocytes Auto (Unsp spec) [#/Vol]Ordered By: Hipolito Jackson on 06-18-2024 Lymphocytes (Bld) [#/Vol] 0.51 10*3/uL Low 0.83-4.51 [facility] Lymphocytes/100 WBC Auto (Un sp spec)Ordered By: Hipolito Jackson on 06-18-2024 Lymphocytes/100 WBC (Bld) 12.2 % Low 19-41 [facility] MCV (mean corpuscular volume ) determinationOrdered By: Hipolito Jackson on 06-18-2024 MCV (RBC) [Entitic vol] 92.0 fL 80-94 [facility] Mean corpuscular hemoglobin (MCH) determinationOrdered By: Hipolito Jackson on 06-18-2024 MCH (RBC) [Entitic mass] 33.0 pg High 27.0-32.0 [facility] Mean corpuscular hemoglobin concentration (MCHC) determinationOrdered By: Hipolito Jackson on 06-18-2024 MCHC (RBC) [Mass/Vol] 35.9 g/dL 32-36 [facility] Mean platelet volume determi nationOrdered By: Hipolito Jackson on 06-18-2024 Platelet mean volume (Bld) [Entitic vol] 9.2 fL 6.2-12.0 [facility] Monocyte percentageOrdered B y: Hipolito Jackson on 06-18-2024 Monocytes/100 WBC (Bld) 9.1 % 0-10 [facility] Neutrophil percentageOrdered By: Hipolito Jackson on 06-18-2024 Neutrophils/100 WBC (Bld) 77.6 % High 47-70 [facility] Nucleated red blood cell per centageOrdered By: Hipolito Jackson on 06-18-2024 Nucleated RBC/100 WBC (Bld) [Ratio] 0 % 0-5 [facility] Platelet countOrdered By: Meet Jackson on 06-18-2024 Platelets (Bld) [#/Vol] 114 10*3/uL Low 150-450 [facility] Potassium (Unsp spec) [Mass/ Vol]Ordered By: Hipolito Jackson on 06-18-2024 Potassium [Moles/Vol] 4.3 mmol/L 3.3-5.1 [facility] Potassium measurement (mass/ volume)Ordered By: Hipolito Jackson on 06-18-2024 Potassium (Unsp spec) [Mass/Vol] 4.3 mmol/L 3.3-5.1 [facility] RBC Auto (Bld) [#/Vol]Ordere d By: Hipolito Jackson on 06-18-2024 RBC (Bld) [#/Vol] 3.51 10*6/uL Low 4.6-6.2 [facility] Serum creatinine measurement (mass/volume)Ordered By: Hipolito Jackson on 06-18-2024 Creatinine [Mass/Vol] 2.36 mg/dL High 0.70-1.20 [facility] Serum glucose measurement (m ass/volume)Ordered By: Hipolito Jackson on 06-18-2024 Glucose [Mass/Vol] 144 mg/dL High 70-99 [facility] Serum or plasma calcium camacho urement (mass/volume)Ordered By: Hipolito Jackson on 06-18-2024 Calcium [Mass/Vol] 10.4 mg/dL 7.6-11.0 [facility] Serum or plasma urea nitroge n measurement (mass/volume)Ordered By: Hipolito Jackson on 06-18-2024 Urea nitrogen [Mass/Vol] 38 mg/dL High 4-19 [facility] Sodium levelOrdered By: Rigo Jackson on 06-18-2024 Sodium [Moles/Vol] 131 mmol/L Low 133-145 [facility] Vitamin D 1,25-Dihydroxyon 0 06-18-2024 VIT D 1,25 DIHY 76.0 pg/mL Normal 24.8-81.5 [facility] Comment on above: Result Comment: Perf ormed at: - [facility] [id number] Director: Rene Lynn MD, Phone: [phone] Performed By: #### L 3300.0960 ####[facility] [address] [place], [address] White blood cell (WBC) count Ordered By: Hipolito Jackson on 06-18-2024 WBC (Bld) [#/Vol] 4.2 10*3/uL Low 4.4-11.0 [facility] Basic Metabolic Profile (BMP )on 06-17-2024 BUN/CRE 12.6 RATIO Normal 10-20 [facility] Comment on above: Performed By: #### L 100.0100, L500.2500 ####[facility] [address] [place], [address] Calcium [Mass/Vol] 10.7 mg/dL Normal 7.6-11.0 [facility] Comment on above: Performed By: #### L 100.0100, L500.2500 ####[facility] [address] [place], [address] Chloride [Moles/Vol] 104 mmol/L Normal 98-108 [facility] Comment on above: Performed By: #### L 100.0100, L500.2500 ####[facility] [address] [place], [address] CO2 [Moles/Vol] 18.1 mmol/L Low 21.0-32.0 [facility] Comment on above: Performed By: #### L 100.0100, L500.2500 ####[facility] [address] [place], [address] Creatinine [Mass/Vol] 2.61 mg/dL High 0.70-1.20 [facility] Comment on above: Performed By: #### L 100.0100, L500.2500 ####[facility] [address] [place], [address] ECRCL 64.27 ml/min Normal 50-250 [facility] Comment on above: Performed By: #### L 100.0100, L500.2500 ####[facility] [address] [place], [address] GAP 11 Normal 5-15 [facility] Comment on above: Performed By: #### L 100.0100, L500.2500 ####[facility] [address] [place], [address] GFR/1.73 sq M.predicted among non-blacks MDRD (S/P/Bld) [Vol rate/Area] 29 mL/min/{1.73_m2} Low >60 [facility] Comment on above: Result Comment: mL/m in/1.73m2 CKD-EPI Creatinine Equation (2020) Performed By: #### L 100.0100, L500.2500 ####[facility] [address] [place], [address] Glucose [Mass/Vol] 145 mg/dL High 70-99 [facility] Comment on above: Performed By: #### L 100.0100, L500.2500 ####[facility] [address] [place], [address] Potassium [Moles/Vol] 4.5 mmol/L Normal 3.3-5.1 [facility] Comment on above: Performed By: #### L 100.0100, L500.2500 ####[facility] [address] [place], [address] Sodium [Moles/Vol] 133 mmol/L Normal 133-145 [facility] Comment on above: Performed By: #### L 100.0100, L500.2500 ####[facility] [address] [place], [address] Urea nitrogen [Mass/Vol] 33 mg/dL High 4-19 [facility] Comment on above: Performed By: #### L 100.0100, L500.2500 ####[facility] [address] [place], [address] Bedside Glucoseon 06-17-2024 FINGERSTICK GLU 236 mg/dL High 74-106 [facility] Comment on above: Result Comment: THADDEUS GEMENT OF PATIENT CARE PER NURSING PROTOCOL Performed By: #### L 501.080 ####[facility] [address] [place], [address] FINGERSTICK GLU 243 mg/dL High 74-106 [facility] Comment on above: Result Comment: THADDEUS GEMENT OF PATIENT CARE PER NURSING PROTOCOL Performed By: #### L 501.080 ####[facility] [address] [place], [address] FINGERSTICK GLU 166 mg/dL High 74-106 [facility] Comment on above: Result Comment: THADDEUS GEMENT OF PATIENT CARE PER NURSING PROTOCOL Performed By: #### L 501.080 ####[facility] [address] [place], [address] FINGERSTICK GLU 138 mg/dL High 74-106 [facility] Comment on above: Result Comment: THADDEUS GEMENT OF PATIENT CARE PER NURSING PROTOCOL Performed By: #### L 501.080 ####[facility] [address] [place], [address] CBC W/Diff, Automatedon 04-0 Absolute Lymph 0.68 X10 3/uL Low 0.83-4.51 [facility] Comment on above: Performed By: #### L 100.0100, L500.2500 ####[facility] [address] [place], [address] Absolute Neut 2.5 X10 3/uL Normal 2.0-7.7 [facility] Comment on above: Performed By: #### L 100.0100, L500.2500 ####[facility] [address] [place], [address] Basophils/100 WBC (Bld) 0.5 % Normal 0-1 [facility] Comment on above: Performed By: #### L 100.0100, L500.2500 ####[facility] [address] [place], [address] Eosinophils/100 WBC (Bld) 4.3 % Normal 0-5 [facility] Comment on above: Performed By: #### L 100.0100, L500.2500 ####[facility] [address] [place], [address] Erythrocyte distribution width (RBC) [Ratio] 16.2 % High 11.6-14.6 [facility] Comment on above: Performed By: #### L 100.0100, L500.2500 ####[facility] [address] [place], [address] Hematocrit (Bld) [Volume fraction] 34.8 % Low 40-54 [facility] Comment on above: Performed By: #### L 100.0100, L500.2500 ####[facility] [address] [place], [address] Hemoglobin (Bld) [Mass/Vol] 12.0 g/dL Low 13.0-16.5 [facility] Comment on above: Performed By: #### L 100.0100, L500.2500 ####[facility] [address] [place], [address] IG% 0.300 Normal 0.0-0.9 [facility] Comment on above: Result Comment: IG% - Immature Granulocytes (promyelocytes, myelocytes andmetamyelocytes) > 1% indicates that a LEFT SHIFT is Present. Performed By: #### L 100.0100, L500.2500 ####[facility] [address] [place], [address] Lymphocytes/100 WBC (Bld) 18.3 % Low 19-41 [facility] Comment on above: Performed By: #### L 100.0100, L500.2500 ####[facility] [address] [place], [address] MCH (RBC) [Entitic mass] 32.4 pg High 27.0-32.0 [facility] Comment on above: Performed By: #### L 100.0100, L500.2500 ####[facility] [address] [place], [address] MCHC (RBC) [Mass/Vol] 34.5 g/dL Normal 32-36 [facility] Comment on above: Performed By: #### L 100.0100, L500.2500 ####[facility] [address] [place], [address] MCV (RBC) [Entitic vol] 94.1 fL High 80-94 [facility] Comment on above: Performed By: #### L 100.0100, L500.2500 ####[facility] [address] [place], [address] Monocytes/100 WBC (Bld) 10.2 % High 0-10 [facility] Comment on above: Performed By: #### L 100.0100, L500.2500 ####[facility] [address] [place], [address] Neutrophils/100 WBC (Bld) 66.4 % Normal 47-70 [facility] Comment on above: Performed By: #### L 100.0100, L500.2500 ####[facility] [address] [place], [address] Nucleated RBC (Bld) [#/Vol] 0 10*3/uL Normal 0-5 [facility] Comment on above: Performed By: #### L 100.0100, L500.2500 ####[facility] [address] [place], [address] Platelet mean volume (Bld) [Entitic vol] 9.1 fL Normal 6.2-12.0 [facility] Comment on above: Performed By: #### L 100.0100, L500.2500 ####[facility] [address] [place], [address] Platelets (Bld) [#/Vol] 106 10*3/uL Low 150-450 [facility] Comment on above: Performed By: #### L 100.0100, L500.2500 ####[facility] [address] [place], [address] RBC (Bld) [#/Vol] 3.70 10*6/uL Low 4.6-6.2 [facility] Comment on above: Performed By: #### L 100.0100, L500.2500 ####[facility] [address] [place], [address] RDW SD 55.9 fl High 35.1-43.9 [facility] Comment on above: Performed By: #### L 100.0100, L500.2500 ####[facility] [address] [place], [address] WBC (Bld) [#/Vol] 3.7 10*3/uL Low 4.4-11.0 [facility] Comment on above: Performed By: #### L 100.0100, L500.2500 ####[facility] [address] [place], [address] Consultation - Intensiviston 06-17-2024 Consultation - Electric Meter Inspector Normal [facility] Electrocardiogram reportOrde red By: Eulogio Rodas on 06-17-2024 EKG study [facility] [address] [place] [address] 12 Lead EKG 06/14/24 1446 MR#: [id number] Acct: [id number] Name: CHRISTA SILVERMAN Rep #:[id number] : 1975 49 From: Eulogio parks MD Attending Dr: Dr. Hipolito Jackson MD Status: ADM IN Ordering Dr: Mac Ortega DO Date: 5 Location: [facility] Sex: M C Admitted: 06/14/24 Test Reason : ABN LABS Blood Pressure : */* mmHG Vent. Rate : 93 BPM Atrial Rate : 93 BPM P-R Int : 214 ms QRS Dur : 100 ms QT Int : 400 ms P-R-T Axes : 36 -6 33 degrees QTcB Int : 497 ms Sinus rhythm with 1st degree A-V block Minimal voltage criteria for LVH, may be normal variant ( R in aVL ) Nonspecific T wave abnormality Prolonged QT Abnormal ECG Confirmed by RODRIGO BLANKENSHIP, KT ([id number]), purchase request editor EKTA ASCENCIO ([id number]) on06/17/2024 5:53:53 AM Referred By: Confirmed By: KT RODAS MD 06/17/24 0553 Date _ Eulogio Rodas MD CC: ANAM Baez; Dr. Hipolito Jackson MD; Dr. Mac Ortega DO ~ Signed [facility] Other Phone: Serum or plasma angiotensin converting enzyme measurement (enzymatic activity/volume)Ordered By: [place] on 06-17-2024 Angiotensin converting enzyme [Catalytic activity/Vol] U/L 14-82 [facility] Comment on above: Performed at: [id number] [place], [place] [id number] Director: Chidi Roger PhD, Phone: [phone] Basic Metabolic Profile (BMP )on 06-16-2024 BUN/CRE 14.1 RATIO Normal 10-20 [facility] Comment on above: Performed By: #### L 501.2300, L100.0100, L500.2500, L501.5200 ####[facility] [address] [place], [address] Calcium [Mass/Vol] 11.1 mg/dL High 7.6-11.0 [facility] Comment on above: Performed By: #### L 501.2300, L100.0100, L500.2500, L501.5200 ####[facility] [address] [place], [address] Chloride [Moles/Vol] 105 mmol/L Normal 98-108 [facility] Comment on above: Performed By: #### L 501.2300, L100.0100, L500.2500, L501.5200 ####[facility] [address] [place], [address] CO2 [Moles/Vol] 16.8 mmol/L Low 21.0-32.0 [facility] Comment on above: Performed By: #### L 501.2300, L100.0100, L500.2500, L501.5200 ####[facility] [address] [place], [address] Creatinine [Mass/Vol] 2.50 mg/dL High 0.70-1.20 [facility] Comment on above: Performed By: #### L 501.2300, L100.0100, L500.2500, L501.5200 ####[facility] [address] [place], [address] ECRCL 67.10 ml/min Normal 50-250 [facility] Comment on above: Performed By: #### L 501.2300, L100.0100, L500.2500, L501.5200 ####[facility] [address] [place], [address] GAP 11 Normal 5-15 [facility] Comment on above: Performed By: #### L 501.2300, L100.0100, L500.2500, L501.5200 ####[facility] [address] [place], [address] GFR/1.73 sq M.predicted among non-blacks MDRD (S/P/Bld) [Vol rate/Area] 31 mL/min/{1.73_m2} Low >60 [facility] Comment on above: Result Comment: mL/m in/1.73m2 CKD-EPI Creatinine Equation (2020) Performed By: #### L 501.2300, L100.0100, L500.2500, L501.5200 ####[facility] [address] [place], [address] Glucose [Mass/Vol] 92 mg/dL Normal 70-99 [facility] Comment on above: Performed By: #### L 501.2300, L100.0100, L500.2500, L501.5200 ####[facility] [address] [place], [address] Potassium [Moles/Vol] 3.8 mmol/L Normal 3.3-5.1 [facility] Comment on above: Performed By: #### L 501.2300, L100.0100, L500.2500, L501.5200 ####[facility] [address] [place], [address] Sodium [Moles/Vol] 133 mmol/L Normal 133-145 [facility] Comment on above: Performed By: #### L 501.2300, L100.0100, L500.2500, L501.5200 ####[facility] [address] [place], [address] Urea nitrogen [Mass/Vol] 35 mg/dL High 4-19 [facility] Comment on above: Performed By: #### L 501.2300, L100.0100, L500.2500, L501.5200 ####[facility] [address] [place], [address] Bedside Glucoseon - FINGERSTICK GLU 233 mg/dL High 74-106 [facility] Comment on above: Result Comment: THADDEUS GEMENT OF PATIENT CARE PER NURSING PROTOCOL Performed By: #### L 501.080 ####[facility] [address] [place], [address] FINGERSTICK GLU 189 mg/dL High 74-106 [facility] Comment on above: Result Comment: THADDEUS GEMENT OF PATIENT CARE PER NURSING PROTOCOL Performed By: #### L 501.080 ####[facility] [address] [place], [address] FINGERSTICK GLU 105 mg/dL Normal 74-106 [facility] Comment on above: Result Comment: THADDEUS GEMENT OF PATIENT CARE PER NURSING PROTOCOL Performed By: #### L 501.080 ####[facility] [address] [place], [address] FINGERSTICK GLU 67 mg/dL Low 74-106 [facility] Comment on above: Result Comment: THADDEUS GEMENT OF PATIENT CARE PER NURSING PROTOCOL Performed By: #### L 501.080 ####[facility] [address] [place], [address] CBC W/Diff, Automatedon 04-0 Absolute Lymph 0.72 X10 3/uL Low 0.83-4.51 [facility] Comment on above: Performed By: #### L 501.2300, L100.0100, L500.2500, L501.5200 ####[facility] [address] [place], [address] Absolute Neut 2.7 X10 3/uL Normal 2.0-7.7 [facility] Comment on above: Performed By: #### L 501.2300, L100.0100, L500.2500, L501.5200 ####[facility] [address] [place], [address] Basophils/100 WBC (Bld) 0.5 % Normal 0-1 [facility] Comment on above: Performed By: #### L 501.2300, L100.0100, L500.2500, L501.5200 ####[facility] [address] [place], [address] Eosinophils/100 WBC (Bld) 3.8 % Normal 0-5 [facility] Comment on above: Performed By: #### L 501.2300, L100.0100, L500.2500, L501.5200 ####[facility] [address] [place], [address] Erythrocyte distribution width (RBC) [Ratio] 16.5 % High 11.6-14.6 [facility] Comment on above: Performed By: #### L 501.2300, L100.0100, L500.2500, L501.5200 ####[facility] [address] [place], [address] Hematocrit (Bld) [Volume fraction] 35.0 % Low 40-54 [facility] Comment on above: Performed By: #### L 501.2300, L100.0100, L500.2500, L501.5200 ####[facility] [address] [place], [address] Hemoglobin (Bld) [Mass/Vol] 12.2 g/dL Low 13.0-16.5 [facility] Comment on above: Performed By: #### L 501.2300, L100.0100, L500.2500, L501.5200 ####[facility] [address] [place], [address] IG% 0.500 Normal 0.0-0.9 [facility] Comment on above: Result Comment: IG% - Immature Granulocytes (promyelocytes, myelocytes andmetamyelocytes) > 1% indicates that a LEFT SHIFT is Present. Performed By: #### L 501.2300, L100.0100, L500.2500, L501.5200 ####[facility] [address] [place], [address] Lymphocytes/100 WBC (Bld) 18.0 % Low 19-41 [facility] Comment on above: Performed By: #### L 501.2300, L100.0100, L500.2500, L501.5200 ####[facility] [address] [place], [address] MCH (RBC) [Entitic mass] 33.0 pg High 27.0-32.0 [facility] Comment on above: Performed By: #### L 501.2300, L100.0100, L500.2500, L501.5200 ####[facility] [address] [place], [address] MCHC (RBC) [Mass/Vol] 34.9 g/dL Normal 32-36 [facility] Comment on above: Performed By: #### L 501.2300, L100.0100, L500.2500, L501.5200 ####[facility] [address] [place], [address] MCV (RBC) [Entitic vol] 94.6 fL High 80-94 [facility] Comment on above: Performed By: #### L 501.2300, L100.0100, L500.2500, L501.5200 ####[facility] [address] [place], [address] Monocytes/100 WBC (Bld) 9.8 % Normal 0-10 [facility] Comment on above: Performed By: #### L 501.2300, L100.0100, L500.2500, L501.5200 ####[facility] [address] [place], [address] Neutrophils/100 WBC (Bld) 67.4 % Normal 47-70 [facility] Comment on above: Performed By: #### L 501.2300, L100.0100, L500.2500, L501.5200 ####[facility] [address] [place], [address] Nucleated RBC (Bld) [#/Vol] 0 10*3/uL Normal 0-5 [facility] Comment on above: Performed By: #### L 501.2300, L100.0100, L500.2500, L501.5200 ####[facility] [address] [place], [address] Platelet mean volume (Bld) [Entitic vol] 9.1 fL Normal 6.2-12.0 [facility] Comment on above: Performed By: #### L 501.2300, L100.0100, L500.2500, L501.5200 ####[facility] [address] [place], [address] Platelets (Bld) [#/Vol] 111 10*3/uL Low 150-450 [facility] Comment on above: Performed By: #### L 501.2300, L100.0100, L500.2500, L501.5200 ####[facility] [address] [place], [address] RBC (Bld) [#/Vol] 3.70 10*6/uL Low 4.6-6.2 [facility] Comment on above: Performed By: #### L 501.2300, L100.0100, L500.2500, L501.5200 ####[facility] [address] [place], [address] RDW SD 56.7 fl High 35.1-43.9 [facility] Comment on above: Performed By: #### L 501.2300, L100.0100, L500.2500, L501.5200 ####[facility] [address] [place], [address] WBC (Bld) [#/Vol] 4.0 10*3/uL Low 4.4-11.0 [facility] Comment on above: Performed By: #### L 501.2300, L100.0100, L500.2500, L501.5200 ####[facility] [address] [place], [address] Magnesiumon 06-16-2024 Magnesium [Mass/Vol] 1.8 mg/dL Normal 1.5-2.2 [facility] Comment on above: Performed By: #### L 501.2300, L100.0100, L500.2500, L501.5200 ####[facility] [address] [place], [address] Magnesium (Unsp spec) [Mass/ Vol]Ordered By: Hipolito Jackson on 06-16-2024 Magnesium [Mass/Vol] 1.8 mg/dL 1.5-2.2 [facility] Magnesium measurement (mass/ volume)Ordered By: Hipolito Jackson on 06-16-2024 Magnesium (Unsp spec) [Mass/Vol] 1.8 mg/dL 1.5-2.2 [facility] Phosphoruson 06-16-2024 Phosphate [Mass/Vol] 3.1 mg/dL Normal 2.7-4.5 [facility] Comment on above: Performed By: #### L 501.2300, L100.0100, L500.2500, L501.5200 ####[facility] [address] [place], [address] Serum phosphorus measurement Ordered By: Hipolito Jackson on 06-16-2024 Phosphorus Level 3.1 mg/dL 2.7-4.5 [facility] 1,25-dihydroxyvitamin D3 [Ma ss/Vol]Ordered By: Madeleine Benoit on 06-15-2024 Vitamin D 1,25-Dihydroxy 76.0 pg/mL 24.8-81.5 [facility] Comment on above: Performed at: - [address] [id number] Director: Rene Lynn MD, Phone: [phone] 24 hour urine albumin/total protein ratio by electrophoresis (mass fraction)Ordered By: Hipolito Jackson on 06-15-2024 Albumin Elph (24H U) [Mass fraction] 34.2 % . [facility] 24 hour urine alpha 1 globul in/total protein ratio by electrophoresis (mass fraction)Ordered By: Hipolito Jackson on 06-15-2024 Alpha 1 globulin Elph (24H U) [Mass fraction] 5.5 % . [facility] 24 hour urine alpha 2 globul in/total protein ratio by electrophoresis (mass fraction)Ordered By: Hipolito Jackson on 06-15-2024 Alpha 2 globulin Elph (24H U) [Mass fraction] 10.1 % . [facility] 24 hour urine monoclonal pro tein measurement by electrophoresis (mass/time)Ordered By: Hipolito Jackson on 06-15-2024 Protein.monoclonal Elph (24H U) [Mass/Time] TNP [facility] Comment on above: Test not performed 24 hour urine protein measur ement (mass/time)Ordered By: Hipolito Jackson on 06-15-2024 Protein (24H U) [Mass/Time] 728 mg/24 hr High 30-150 [facility] Albumin Elph (24H U) [Mass f raction]Ordered By: Hipolito Jackson on 06-15-2024 Urine Albumin 34.2 % . [facility] Alpha 1 globulin Elph (24H U ) [Mass fraction]Ordered By: Hipolito Jackson on 06-15-2024 Urine Fotpo-8-Ufxxsyoe 5.5 % . [facility] Alpha 2 globulin Elph (24H U ) [Mass fraction]Ordered By: Hipolito Jackson on 06-15-2024 Urine Kjujt-7-Hsmsejpux 10.1 % . [facility] Basic Metabolic Profile (BMP )on 06-15-2024 BUN/CRE 14.8 RATIO Normal 10-20 [facility] Comment on above: Performed By: #### L 506.1001, L500.2500, L100.0100 ####[facility] [address] [place], [address] Calcium [Mass/Vol] 12.4 mg/dL High 7.6-11.0 [facility] Comment on above: Performed By: #### L 506.1001, L500.2500, L100.0100 ####[facility] [address] [place], [address] Chloride [Moles/Vol] 102 mmol/L Normal 98-108 [facility] Comment on above: Performed By: #### L 506.1001, L500.2500, L100.0100 ####[facility] [address] [place], [address] CO2 [Moles/Vol] 17.7 mmol/L Low 21.0-32.0 [facility] Comment on above: Performed By: #### L 506.1001, L500.2500, L100.0100 ####[facility] [address] [place], [address] Creatinine [Mass/Vol] 2.97 mg/dL High 0.70-1.20 [facility] Comment on above: Performed By: #### L 506.1001, L500.2500, L100.0100 ####[facility] [address] [place], [address] ECRCL 56.48 ml/min Normal 50-250 [facility] Comment on above: Performed By: #### L 506.1001, L500.2500, L100.0100 ####[facility] [address] [place], [address] GAP 13 Normal 5-15 [facility] Comment on above: Performed By: #### L 506.1001, L500.2500, L100.0100 ####[facility] [address] [place], [address] GFR/1.73 sq M.predicted among non-blacks MDRD (S/P/Bld) [Vol rate/Area] 25 mL/min/{1.73_m2} Low >60 [facility] Comment on above: Result Comment: mL/m in/1.73m2 CKD-EPI Creatinine Equation (2020) Performed By: #### L 506.1001, L500.2500, L100.0100 ####[facility] [address] [place], [address] Glucose [Mass/Vol] 204 mg/dL High 70-99 [facility] Comment on above: Performed By: #### L 506.1001, L500.2500, L100.0100 ####[facility] [address] [place], [address] Potassium [Moles/Vol] 4.4 mmol/L Normal 3.3-5.1 [facility] Comment on above: Performed By: #### L 506.1001, L500.2500, L100.0100 ####[facility] [address] [place], [address] Sodium [Moles/Vol] 132 mmol/L Low 133-145 [facility] Comment on above: Performed By: #### L 506.1001, L500.2500, L100.0100 ####[facility] [address] [place], [address] Urea nitrogen [Mass/Vol] 44 mg/dL High 4-19 [facility] Comment on above: Performed By: #### L 506.1001, L500.2500, L100.0100 ####[facility] [address] [place], [address] Bedside Glucoseon 06-15-2024 FINGERSTICK GLU 162 mg/dL High [address] [place] [address] Comment on above: Result Comment: THADDEUS GEMENT OF PATIENT CARE PER NURSING PROTOCOL Performed By: #### L 501.080 ####[facility] [address] [place], [address] FINGERSTICK GLU 240 mg/dL High [address] [place] [address] Comment on above: Result Comment: THADDEUS GEMENT OF PATIENT CARE PER NURSING PROTOCOL Performed By: #### L 501.080 ####[facility] [address] [place], [address] FINGERSTICK GLU 237 mg/dL High [address] [place] [address] Comment on above: Result Comment: THADDEUS GEMENT OF PATIENT CARE PER NURSING PROTOCOL Performed By: #### L 501.080 ####[facility] [address] [place], [address] FINGERSTICK GLU 208 mg/dL High [address] [place] [address] Comment on above: Result Comment: THADDEUS GEMENT OF PATIENT CARE PER NURSING PROTOCOL Performed By: #### L 501.080 ####[facility] [address] [place], [address] Beta globulin Elph (U) [Mass /Vol]Ordered By: Hipolito Jackson on 06-15-2024 Urine Beta Globulin 28.3 % . [facility] CBC W/Diff, Automatedon 04-0 Absolute Lymph 0.81 X10 3/uL Low 0.83-4.51 [facility] Comment on above: Performed By: #### L 506.1001, L500.2500, L100.0100 ####[facility] [address] [place], [address] Absolute Neut 3.0 X10 3/uL Normal 2.0-7.7 [facility] Comment on above: Performed By: #### L 506.1001, L500.2500, L100.0100 ####[facility] [address] [place], [address] Basophils/100 WBC (Bld) 0.4 % Normal 0-1 [facility] Comment on above: Performed By: #### L 506.1001, L500.2500, L100.0100 ####[facility] [address] [place], [address] Eosinophils/100 WBC (Bld) 3.8 % Normal 0-5 [facility] Comment on above: Performed By: #### L 506.1001, L500.2500, L100.0100 ####[facility] [address] [place], [address] Erythrocyte distribution width (RBC) [Ratio] 16.7 % High 11.6-14.6 [facility] Comment on above: Performed By: #### L 506.1001, L500.2500, L100.0100 ####[facility] [address] [place], [address] Hematocrit (Bld) [Volume fraction] 37.1 % Low 40-54 [facility] Comment on above: Performed By: #### L 506.1001, L500.2500, L100.0100 ####[facility] [address] [place], [address] Hemoglobin (Bld) [Mass/Vol] 12.9 g/dL Low 13.0-16.5 [facility] Comment on above: Performed By: #### L 506.1001, L500.2500, L100.0100 ####[facility] [address] [place], [address] IG% 0.400 Normal 0.0-0.9 [facility] Comment on above: Result Comment: IG% - Immature Granulocytes (promyelocytes, myelocytes andmetamyelocytes) > 1% indicates that a LEFT SHIFT is Present. Performed By: #### L 506.1001, L500.2500, L100.0100 ####[facility] [address] [place], [address] Lymphocytes/100 WBC (Bld) 18.1 % Low 19-41 [facility] Comment on above: Performed By: #### L 506.1001, L500.2500, L100.0100 ####[facility] [address] [place], [address] MCH (RBC) [Entitic mass] 32.7 pg High 27.0-32.0 [facility] Comment on above: Performed By: #### L 506.1001, L500.2500, L100.0100 ####[facility] [address] [place], [address] MCHC (RBC) [Mass/Vol] 34.8 g/dL Normal 32-36 [facility] Comment on above: Performed By: #### L 506.1001, L500.2500, L100.0100 ####[facility] [address] [place], [address] MCV (RBC) [Entitic vol] 94.2 fL High 80-94 [facility] Comment on above: Performed By: #### L 506.1001, L500.2500, L100.0100 ####[facility] [address] [place], [address] Monocytes/100 WBC (Bld) 9.8 % Normal 0-10 [facility] Comment on above: Performed By: #### L 506.1001, L500.2500, L100.0100 ####[facility] [address] [place], [address] Neutrophils/100 WBC (Bld) 67.5 % Normal 47-70 [facility] Comment on above: Performed By: #### L 506.1001, L500.2500, L100.0100 ####[facility] [address] [place], [address] Nucleated RBC (Bld) [#/Vol] 0 10*3/uL Normal 0-5 [facility] Comment on above: Performed By: #### L 506.1001, L500.2500, L100.0100 ####[facility] [address] [place], [address] Platelet mean volume (Bld) [Entitic vol] 9.9 fL Normal 6.2-12.0 [facility] Comment on above: Performed By: #### L 506.1001, L500.2500, L100.0100 ####[facility] [address] [place], [address] Platelets (Bld) [#/Vol] 125 10*3/uL Low 150-450 [facility] Comment on above: Performed By: #### L 506.1001, L500.2500, L100.0100 ####[facility] [address] [place], [address] RBC (Bld) [#/Vol] 3.94 10*6/uL Low 4.6-6.2 [facility] Comment on above: Performed By: #### L 506.1001, L500.2500, L100.0100 ####[facility] [address] [place], [address] RDW SD 57.1 fl High 35.1-43.9 [facility] Comment on above: Performed By: #### L 506.1001, L500.2500, L100.0100 ####[facility] [address] [place], [address] WBC (Bld) [#/Vol] 4.5 10*3/uL Normal 4.4-11.0 [facility] Comment on above: Performed By: #### L 506.1001, L500.2500, L100.0100 ####[facility] [address] [place], [address] Consultation - Nephrologyon 06-15-2024 Consultation - Nephrology Normal [facility] Gamma globulin Elph (U) [Mas s/Vol]Ordered By: Hipolito Jackson on 06-15-2024 Urine Gamma Globulin 21.8 % . [facility] Immunofixation w fractionati on ur 24hrOrdered By: Hipolito Jackson on 06-15-2024 Urine Immunofixation Comment . [facility] Comment on above: No monoclonality det ected. No Panel InformationOrdered By: Hipolito Jackson on 06-15-2024 Urine Immunofixation PEP Note Comment . [facility] Comment on above: Protein electrophore sis scan will follow via computer,mail, or manager personal delivery.Performed at: - [facility] [id number] Director: Chidi Roger PhD, Phone: [phone] Comment . [facility] Protein (24H U) [Mass/Time]O rdered By: Hipolito Jackson on 06-15-2024 Urine Total Protein 24 Hour 728 mg/24 hr High 30-150 [facility] Protein.monoclonal Elph (24H U) [Mass/Time]Ordered By: Hipolito Jackson on 06-15-2024 Ur Protein Electro M-Nabil 24 Hr TNP [facility] Comment on above: Test not performed Protein.monoclonal Elph (U) [Mass fraction]Ordered By: Hipolito Jackson on 06-15-2024 Ur Protein Electrophoresis M-Nabil Not Observed % Not Observed [facility] Serum or plasma calcitriol m easurement (mass/volume)Ordered By: Madeleine Benoit on 06-15-2024 1,25-dihydroxyvitamin D3 [Mass/Vol] 76.0 pg/mL 24.8-81.5 [facility] Comment on above: Performed at: [facility] - [facility] [address] [id number] Director: Rene Lynn MD, Phone: [phone] Urine beta globulin measurem ent by electrophoresis (mass/volume)Ordered By: Hipolito Jackson on 06-15-2024 Beta globulin Elph (U) [Mass/Vol] 28.3 % . [facility] Urine gamma globulin measure ment by electrophoresis (mass/volume)Ordered By: Hipolito Jackson on 06-15-2024 Gamma globulin Elph (U) [Mass/Vol] 21.8 % . [facility] Urine monoclonal protein/tot al protein mass ratio by electrophoresisOrdered By: Hipolito Jackson on 06-15-2024 Protein.monoclonal Elph (U) [Mass fraction] Not Observed % Not Observed [facility] Urine protein measurement (m ass/volume)Ordered By: Hipolito Jackson on 06-15-2024 Protein (U) [Mass/Vol] 18.2 mg/dL Not Estab. [facility] Vitamin D, 25-hydroxyOrdered By: Madeleine eBnoit on 06-15-2024 Vitamin D 25-Hydroxy 21.5 ng/mL Low 30-100 [facility] Comment on above: Vitamin D StatusDefi ciency: <20 ng/mL (50nmol/L)Insufficiency: 20-30 ng/mL (50-75 nmol/L)Sufficiency: 30-100 ng/mL (75-250 nmol/L)Toxicity: >100 ng/mL (>250 nmol/L) Vitamin D,25 Hydroxyon 06-15 Vitamin D 25-OH 21.5 ng/mL Low 30-100 [facility] Comment on above: Result Comment: Berenice min D StatusDeficiency: <20 ng/mL (50nmol/L)Insufficiency: 20-30 ng/mL (50-75 nmol/L)Sufficiency: 30-100 ng/mL (75-250 nmol/L)Toxicity: >100 ng/mL (>250 nmol/L) Performed By: #### L 506.1001, L500.2500, L100.0100 ####[facility] [address] [place], [address] 12 Lead EKGon 06-14-2024 12 Lead EKG Normal [facility] Abdomen/Pelvis without Conto n 06-14-2024 Abdomen/Pelvis without Cont Normal [facility] Absolute neutrophil countOrd ered By: Mac Ortega on 06-14-2024 Neutrophils (Bld) [#/Vol] 2.8 10*3/uL 2.0-7.7 [facility] Amorphous sediment detection in urine sediment by light microscopyOrdered By: Mac Ortega on 06-14-2024 Amorphous sediment LM Ql (Urine sed) 1+ URATE [facility] Anion gap in Serum or Plasma Ordered By: Mac Ortega on 06-14-2024 Anion gap [Moles/Vol] 13 mmol/L - [facility] BUN/creatinine ratioOrdered By: Mac Ortega on 06-14-2024 Urea nitrogen/Creatinine [Mass ratio] 15.3 mg/mg 12-30 [facility] Basic Metabolic Profile (BMP )on 06-14-2024 BUN/CRE 15.3 RATIO Normal 12-30 [facility] Comment on above: Performed By: #### L 500.2500, L100.0100, L500.3400 ####[facility] [address] [place], [address] Calcium [Mass/Vol] 14.0 mg/dL Invalid Interpretation Code 7.6-11.0 [facility] Comment on above: Result Comment: Crit ical Result(s) Called ACOLE at: 1552 by:LAURA??Results read back by same. Performed By: #### L 500.2500, L100.0100, L500.3400 ####[facility] [address] [place], [address] Chloride [Moles/Vol] 99 mmol/L Normal 98-108 [facility] Comment on above: Performed By: #### L 500.2500, L100.0100, L500.3400 ####[facility] [address] [place], [address] CO2 [Moles/Vol] 18.6 mmol/L Low 21.0-32.0 [facility] Comment on above: Performed By: #### L 500.2500, L100.0100, L500.3400 ####[facility] [address] [place], [address] Creatinine [Mass/Vol] 3.30 mg/dL High 0.70-1.20 [facility] Comment on above: Performed By: #### L 500.2500, L100.0100, L500.3400 ####[facility] [address] [place], [address] ECRCL 50.83 ml/min Normal 50-250 [facility] Comment on above: Performed By: #### L 500.2500, L100.0100, L500.3400 ####[facility] [address] [place], [address] GAP 13 Normal 5-15 [facility] Comment on above: Performed By: #### L 500.2500, L100.0100, L500.3400 ####[facility] [address] [place], [address] GFR/1.73 sq M.predicted among non-blacks MDRD (S/P/Bld) [Vol rate/Area] 22 mL/min/{1.73_m2} Low >60 [facility] Comment on above: Result Comment: mL/m in/1.73m2 CKD-EPI Creatinine Equation (2020) Performed By: #### L 500.2500, L100.0100, L500.3400 ####[facility] [address] [place], [address] Glucose [Mass/Vol] 222 mg/dL High 70-99 [facility] Comment on above: Performed By: #### L 500.2500, L100.0100, L500.3400 ####[facility] [address] [place], [address] Potassium [Moles/Vol] 4.3 mmol/L Normal 3.3-5.1 [facility] Comment on above: Performed By: #### L 500.2500, L100.0100, L500.3400 ####[facility] [address] [place], [address] Sodium [Moles/Vol] 131 mmol/L Low 133-145 [facility] Comment on above: Performed By: #### L 500.2500, L100.0100, L500.3400 ####[facility] [address] [place], [address] Urea nitrogen [Mass/Vol] 50 mg/dL High 4-19 [facility] Comment on above: Performed By: #### L 500.2500, L100.0100, L500.3400 ####[facility] [address] [place], [address] Basophil percentageOrdered B y: Mac Ortega on 06-14-2024 Basophils/100 WBC (Bld) 0.5 % 0-1 [facility] Bedside Glucoseon 06-14-2024 FINGERSTICK GLU 219 mg/dL High 74-106 [facility] Comment on above: Result Comment: THADDEUS GEMENT OF PATIENT CARE PER NURSING PROTOCOL Performed By: #### L 501.080 ####[facility] [address] [place], [address] FINGERSTICK GLU 220 mg/dL High 74-106 [facility] Comment on above: Result Comment: THADDEUS GEMENT OF PATIENT CARE PER NURSING PROTOCOL Performed By: #### L 501.080 ####[facility] [address] [place], [address] Bilirubin Test strip Ql (U)O rdered By: Mac Ortega on 06-14-2024 Bilirubin Ql (U) Negative Negative [facility] Bilirubin directOrdered By: Mac Ortega on 06-14-2024 Bilirubin.direct [Mass/Vol] 0.34 mg/dL High 0.00-0.30 [facility] Bilirubin, totalOrdered By: Mac Ortega on 06-14-2024 Bilirubin [Mass/Vol] 0.70 mg/dL 0.00-1.30 [facility] CBC W/Diff, Automatedon 04-0 4-2024 Absolute Lymph 0.69 X10 3/uL Low 0.83-4.51 [facility] Comment on above: Performed By: #### L 500.2500, L100.0100, L500.3400 ####[facility] [address] [place], [address] Absolute Neut 2.8 X10 3/uL Normal 2.0-7.7 [facility] Comment on above: Performed By: #### L 500.2500, L100.0100, L500.3400 ####[facility] [address] [place], [address] Basophils/100 WBC (Bld) 0.5 % Normal 0-1 [facility] Comment on above: Performed By: #### L 500.2500, L100.0100, L500.3400 ####[facility] [address] [place], [address] Eosinophils/100 WBC (Bld) 4.6 % Normal 0-5 [facility] Comment on above: Performed By: #### L 500.2500, L100.0100, L500.3400 ####[facility] [address] [place], [address] Erythrocyte distribution width (RBC) [Ratio] 16.7 % High 11.6-14.6 [facility] Comment on above: Performed By: #### L 500.2500, L100.0100, L500.3400 ####[facility] [address] [place], [address] Hematocrit (Bld) [Volume fraction] 39.7 % Low 40-54 [facility] Comment on above: Performed By: #### L 500.2500, L100.0100, L500.3400 ####[facility] [address] [place], [address] Hemoglobin (Bld) [Mass/Vol] 14.2 g/dL Normal 13.0-16.5 [facility] Comment on above: Performed By: #### L 500.2500, L100.0100, L500.3400 ####[facility] [address] [place], [address] IG% 0.200 Normal 0.0-0.9 [facility] Comment on above: Result Comment: IG% - Immature Granulocytes (promyelocytes, myelocytes andmetamyelocytes) > 1% indicates that a LEFT SHIFT is Present. Performed By: #### L 500.2500, L100.0100, L500.3400 ####[facility] [address] [place], [address] Lymphocytes/100 WBC (Bld) 16.6 % Low 19-41 [facility] Comment on above: Performed By: #### L 500.2500, L100.0100, L500.3400 ####[facility] [address] [place], [address] MCH (RBC) [Entitic mass] 33.0 pg High 27.0-32.0 [facility] Comment on above: Performed By: #### L 500.2500, L100.0100, L500.3400 ####[facility] [address] [place], [address] MCHC (RBC) [Mass/Vol] 35.8 g/dL Normal 32-36 [facility] Comment on above: Performed By: #### L 500.2500, L100.0100, L500.3400 ####[facility] [address] [place], [address] MCV (RBC) [Entitic vol] 92.3 fL Normal 80-94 [facility] Comment on above: Performed By: #### L 500.2500, L100.0100, L500.3400 ####[facility] [address] [place], [address] Monocytes/100 WBC (Bld) 11.1 % High 0-10 [facility] Comment on above: Performed By: #### L 500.2500, L100.0100, L500.3400 ####[facility] [address] [place], [address] Neutrophils/100 WBC (Bld) 67.0 % Normal 47-70 [facility] Comment on above: Performed By: #### L 500.2500, L100.0100, L500.3400 ####[facility] [address] [place], [address] Nucleated RBC (Bld) [#/Vol] 0 10*3/uL Normal 0-5 [facility] Comment on above: Performed By: #### L 500.2500, L100.0100, L500.3400 ####[facility] [address] [place], [address] Platelet mean volume (Bld) [Entitic vol] 9.1 fL Normal 6.2-12.0 [facility] Comment on above: Performed By: #### L 500.2500, L100.0100, L500.3400 ####[facility] [address] [place], [address] Platelets (Bld) [#/Vol] 128 10*3/uL Low 150-450 [facility] Comment on above: Performed By: #### L 500.2500, L100.0100, L500.3400 ####[facility] [address] [place], [address] RBC (Bld) [#/Vol] 4.30 10*6/uL Low 4.6-6.2 [facility] Comment on above: Performed By: #### L 500.2500, L100.0100, L500.3400 ####[facility] [address] [place], [address] RDW SD 55.8 fl High 35.1-43.9 [facility] Comment on above: Performed By: #### L 500.2500, L100.0100, L500.3400 ####[facility] [address] [place], [address] WBC (Bld) [#/Vol] 4.2 10*3/uL Low 4.4-11.0 [facility] Comment on above: Performed By: #### L 500.2500, L100.0100, L500.3400 ####[facility] [address] [place], [address] Calcium ionizedOrdered By: Risa Terry on 06-14-2024 Ionized Calcium 1.60 mmol/L High 1.09-1.30 [facility] Carbon dioxide, total [Moles /volume] in Central venous bloodOrdered By: Mac Ortega on 06-14-2024 CO2 [Moles/Vol] 18.6 mmol/L Low 21.0-32.0 [facility] Chloride assayOrdered By: Javier Ortega on 06-14-2024 Chloride [Moles/Vol] 99 mmol/L 98-108 [facility] Emergency Department Summary on 06-14-2024 Emergency Department Summary Normal [facility] Eosinophil percentageOrdered By: Mac Ortega on 06-14-2024 Eosinophils/100 WBC (Bld) 4.6 % 0-5 [facility] Epithelial cells.squamous LM Ql (Urine sed)Ordered By: Mac Ortega on 06-14-2024 Epithelial cells.squamous LM.HPF (Urine sed) [#/Area] 0 /[HPF] 0-5 [facility] Erythrocyte distribution wid th (RBC) [Ratio]Ordered By: Mac Ortega on 06-14-2024 Erythrocyte distribution width (RBC) [Entitic vol] 55.8 fL High 35.1-43.9 [facility] Erythrocyte distribution wid th ratioOrdered By: Mac Ortega on 06-14-2024 Erythrocyte distribution width (RBC) [Ratio] 16.7 % High 11.6-14.6 [facility] Estimation of creatinine kel aranceOrdered By: Mac Ortega on 06-14-2024 Estimated Creatinine Clearance Calc 50.83 ml/min 50-250 [facility] GFR/1.73 sq M.predicted corina g non-blacks MDRD (S/P/Bld) [Vol rate/Area]Ordered By: Mac Ortega on 06-14-2024 Estimated GFR (MDRD) Non-Af Amer 22 Low >60 [facility] Comment on above: mL/min/1.73m2 CKD-EP I Creatinine Equation (2020) Glucose Ql (U)Ordered By: Javier Ortega on 06-14-2024 Glucose (U) [Mass/Vol] 1000 mg/dL High Normal [facility] H AND P Exam - Hospitaliston 06-14-2024 H&P Exam - Hospitalist Normal [facility] Hematocrit Auto (Bld) [Volum e fraction]Ordered By: Mac Ortega on 06-14-2024 Hematocrit (Bld) [Volume fraction] 39.7 % Low 40-54 [facility] Hemoglobin measurementOrdere d By: Mac Ortega on 06-14-2024 Hemoglobin (Bld) [Mass/Vol] 14.2 g/dL 13.0-16.5 [facility] Immature granulocytes/100 WB C Auto (Bld)Ordered By: Mac Ortega on 06-14-2024 Immature granulocytes/100 WBC (Bld) 0.200 % 0.0-0.9 [facility] Comment on above: IG% - Immature Granu locytes (promyelocytes, myelocytes and metamyelocytes) > 1% indicates that a LEFT SHIFT is Present. Ketones Test strip Ql (U)Ord ered By: Mac Ortega on 06-14-2024 Ketones Ql (U) Negative Negative [facility] Laboratory - Chemistry and C hemistry - challengeOrdered By: Mac Ortega on 06-14-2024 AST [Catalytic activity/Vol] 59 U/L High <38 [facility] Liver Profileon 06-14-2024 Albumin [Mass/Vol] 4.1 g/dL Normal 3.5-5.0 [facility] Comment on above: Performed By: #### L 500.2500, L100.0100, L500.3400 ####[facility] [address] [place], [address] ALK PHOS 172 U/L High 40-129 [facility] Comment on above: Performed By: #### L 500.2500, L100.0100, L500.3400 ####[facility] [address] [place], [address] ALT [Catalytic activity/Vol] 41 U/L Normal <=46 [facility] Comment on above: Performed By: #### L 500.2500, L100.0100, L500.3400 ####[facility] [address] [place], [address] AST [Catalytic activity/Vol] 59 U/L High <=37 [facility] Comment on above: Performed By: #### L 500.2500, L100.0100, L500.3400 ####[facility] [address] [place], [address] Bilirubin [Mass/Vol] 0.70 mg/dL Normal 0.00-1.30 [facility] Comment on above: Performed By: #### L 500.2500, L100.0100, L500.3400 ####[facility] [address] [place], [address] Bilirubin.direct [Mass/Vol] 0.34 mg/dL High 0.00-0.30 [facility] Comment on above: Performed By: #### L 500.2500, L100.0100, L500.3400 ####[facility] [address] [place], [address] Globulin (S) [Mass/Vol] 3.3 g/dL Normal 2.2-4.2 [facility] Comment on above: Performed By: #### L 500.2500, L100.0100, L500.3400 ####[facility] [address] [place], [address] T PROT 7.4 g/dL Normal 5.9-8.4 [facility] Comment on above: Performed By: #### L 500.2500, L100.0100, L500.3400 ####[facility] [address] [place], [address] Lymphocytes Auto (Unsp spec) [#/Vol]Ordered By: Mac Ortega on 06-14-2024 Lymphocytes (Bld) [#/Vol] 0.69 10*3/uL Low 0.83-4.51 [facility] Lymphocytes/100 WBC Auto (Un sp spec)Ordered By: Mac Ortega on 06-14-2024 Lymphocytes/100 WBC (Bld) 16.6 % Low 19-41 [facility] MCV (mean corpuscular volume ) determinationOrdered By: Mac Ortega on 06-14-2024 MCV (RBC) [Entitic vol] 92.3 fL 80-94 [facility] Mean corpuscular hemoglobin (MCH) determinationOrdered By: Mac Ortega on 06-14-2024 MCH (RBC) [Entitic mass] 33.0 pg High 27.0-32.0 [facility] Mean corpuscular hemoglobin concentration (MCHC) determinationOrdered By: Mac Ortega on 06-14-2024 MCHC (RBC) [Mass/Vol] 35.8 g/dL 32-36 [facility] Mean platelet volume determi nationOrdered By: Mac Ortega on 06-14-2024 Platelet mean volume (Bld) [Entitic vol] 9.1 fL 6.2-12.0 [facility] Microscopic analysis of urin e for red blood cells (RBC)Ordered By: Mac Ortega on 06-14-2024 Microscopic analysis of urine for red blood cells (RBC) 0-5 SEEN /hpf 0-5 [facility] Urine RBC 0-5 SEEN /hpf 0-5 [facility] Monocyte percentageOrdered B y: Mac Ortega on 06-14-2024 Monocytes/100 WBC (Bld) 11.1 % High 0-10 [facility] Mucus LM Ql (Urine sed)Order ed By: Mac Ortega on 06-14-2024 Mucus Ql (Urine sed) 0 SEEN /hpf [facility] Neutrophil percentageOrdered By: Mac Ortega on 06-14-2024 Neutrophils/100 WBC (Bld) 67.0 % 47-70 [facility] [facility] Nit[facility] Test strip Ql (U)Ord ered By: Mac Ortega on 06-14-2024 Nitrite Ql (U) Negative Negative [facility] No Panel InformationOrdered By: Mac Ortega on 06-14-2024 59 U/L High <38 [facility] Nucleated red blood cell per centageOrdered By: Mac Ortega on 06-14-2024 Nucleated RBC/100 WBC (Bld) [Ratio] 0 % 0-5 [facility] Platelet countOrdered By: Javier Ortega on 06-14-2024 Platelets (Bld) [#/Vol] 128 10*3/uL Low 150-450 [facility] Potassium (Unsp spec) [Mass/ Vol]Ordered By: Mac Ortega on 06-14-2024 Potassium [Moles/Vol] 4.3 mmol/L 3.3-5.1 [facility] Protein Test strip Ql (U)Ord ered By: Mac Ortega on 06-14-2024 Protein Ql (U) 30 mg/dl High Negative [facility] RBC Auto (Bld) [#/Vol]Ordere d By: Mac Ortega on 06-14-2024 RBC (Bld) [#/Vol] 4.30 10*6/uL Low 4.6-6.2 [facility] Serum creatinine measurement (mass/volume)Ordered By: Mac Ortega on 06-14-2024 Creatinine [Mass/Vol] 3.30 mg/dL High 0.70-1.20 [facility] Serum globulin measurementOr dered By: Mac Ortega on 06-14-2024 Globulin (S) [Mass/Vol] 3.3 g/dL 2.2-4.2 [facility] Serum glucose measurement (m ass/volume)Ordered By: Mac Ortega on 06-14-2024 Glucose [Mass/Vol] 222 mg/dL High 70-99 [facility] Serum or plasma alanine beth otransferase (ALT) measurementOrdered By: Mac Ortega on 06-14-2024 ALT [Catalytic activity/Vol] 41 U/L <47 [facility] Serum or plasma albumin camacho urement (mass/volume)Ordered By: Mac Le on 06-14-2024 Albumin [Mass/Vol] 4.1 g/dL 3.5-5.0 [facility] Serum or plasma alkaline nerissa sphatase measurementOrdered By: Mac Shannon on 06-14-2024 ALP [Catalytic activity/Vol] 172 U/L High 40-129 [facility] Serum or plasma calcium camacho urement (mass/volume)Ordered By: Mac Ortega on 06-14-2024 Calcium [Mass/Vol] 14.0 mg/dL High 7.6-11.0 [facility] Comment on above: Critical Result(s) C alled ACOLE at: 1552 by: LAURA Results read back by same. Serum or plasma urea nitroge n measurement (mass/volume)Ordered By: Mac Ortega on 06-14-2024 Urea nitrogen [Mass/Vol] 50 mg/dL High 4-19 [facility] Sodium levelOrdered By: Mac Ortega on 06-14-2024 Sodium [Moles/Vol] 131 mmol/L Low 133-145 [facility] Squamous epithelial cells de tection in urine sediment by light microscopyOrdered By: Mac Ortega on 06-14-2024 Epithelial cells.squamous LM Ql (Urine sed) 0-5 SEEN /hpf 0-5 [facility] Total proteinOrdered By: Nolan fuentes Shannon on 06-14-2024 Protein [Mass/Vol] 7.4 g/dL 5.9-8.4 [facility] Urinalysis, Completeon 06-14 AMORPHOUS 1+ URATE Normal [facility] Comment on above: Order Comment: CLEAN CATCH Performed By: #### L 400.0001 ####[facility] [address] [place], [address] EPI,SQUAMOUS 0-5 SEEN Normal 0-5 [facility] Comment on above: Order Comment: CLEAN CATCH Performed By: #### L 400.0001 ####[facility] [address] [place], [address] RBC 0-5 SEEN Normal 0-5 [facility] Comment on above: Order Comment: CLEAN CATCH Performed By: #### L 400.0001 ####[facility] [address] [place], [address] BACTERIA 0 SEEN Normal None Seen [facility] Comment on above: Order Comment: CLEAN CATCH Performed By: #### L 400.0001 ####[facility] [address] [place], [address] Mucus Ql (Urine sed) 0 SEEN Normal [facility] Comment on above: Order Comment: CLEAN CATCH Performed By: #### L 400.0001 ####[facility] [address] [place], [address] WBC 0 SEEN Normal 0-5 [facility] Comment on above: Order Comment: CLEAN CATCH Performed By: #### L 400.0001 ####[facility] [address] [place], [address] Urine blood detectionOrdered By: Mac Ortega on 06-14-2024 Urine Occult Blood 25 /ul High Negative [facility] Urine clarityOrdered By: Nolan Ortega on 06-14-2024 Clarity (U) Clear Clear [facility] Urine color determinationOrd ered By: Mac Ortega on 06-14-2024 Color (U) Yellow Yellow [facility] Urine glucose detectionOrder ed By: Mca Ortega on 06-14-2024 Glucose Ql (U) 1000 mg/dl High Normal [facility] Urine leukocyte esterase det ection by dipstickOrdered By: Mac Ortega on 06-14-2024 Leukocyte esterase Test strip Ql (U) Negative Negative [facility] Urine pHOrdered By: Mac Ortega on 06-14-2024 pH (U) 6.0 [pH] 5.0 - 8.0 [facility] Urine sediment bacteria coun t by microscopy (number/high power field)Ordered By: Mac Ortega on 06-14-2024 Bacteria LM.HPF (Urine sed) [#/Area] 0 /[HPF] None Seen [facility] Urine specific gravity measu rementOrdered By: Mac Ortega on 06-14-2024 Specific gravity (U) [Rel density] 1.020 1.002-1.030 [facility] Urine urobilinogen measureme ntOrdered By: Mac Ortega on 06-14-2024 Urobilinogen Ql (U) Normal mg/dl Normal [facility] Urobilinogen Ql (U)Ordered B y: Mac Ortega on 06-14-2024 Urine Urobilinogen Normal mg/dl Normal [facility] White blood cell (WBC) count Ordered By: Mac Ortega on 06-14-2024 WBC (Bld) [#/Vol] 4.2 10*3/uL Low 4.4-11.0 [facility] White blood cell countOrdere d By: Mac Ortega on 06-14-2024 Urine WBC 0 SEEN /hpf 0-5 [facility] White blood cell count 0 SEEN /hpf 0-5 [facility] Anion gap in Serum or Plasma Ordered By: Kirtsie Maxwell on 06-13-2024 Anion gap [Moles/Vol] 15 mmol/L 5-15 [facility] BUN/creatinine ratioOrdered By: Kirstie Maxwell on 06-13-2024 Urea nitrogen/Creatinine [Mass ratio] 14.7 mg/mg 10-20 [facility] Bilirubin, totalOrdered By: Kirstie Maxwell on 06-13-2024 Bilirubin [Mass/Vol] 0.90 mg/dL 0.00-1.30 [facility] CREATININE FINGERSTICKon Creatinine [Mass/Vol] 3.8 mg/dL High 0.70-1.30 [facility] Comment on above: Performed By: #### L 9100.0200 ####[facility] [address] [place], [address] GFR/1.73 sq M.predicted among non-blacks MDRD (S/P/Bld) [Vol rate/Area] 18.0000 mL/min/{1.73_m2} Low >60 [facility] Comment on above: Performed By: #### L 9100.0200 ####[facility] [address], [place], [address] Carbon dioxide, total [Moles /volume] in Central venous bloodOrdered By: Kirstie Maxwell on 06-13-2024 CO2 [Moles/Vol] 16.5 mmol/L Low 21.0-32.0 [facility] Chloride assayOrdered By: Edwin Maxwell on 06-13-2024 Chloride [Moles/Vol] 100 mmol/L 98-108 [facility] Comprehensive Metabolic Prof ilon 06-13-2024 Calcium [Mass/Vol] 14.0 mg/dL Invalid Interpretation Code 7.6-11.0 [facility] Comment on above: Result Comment: Crit ical Result(s) Called LEAH RONDON at: 1629 by:LAURA??Results read back by same.Critical Result(s) Called at: by:??Results read back bysame. AMENDED REPORT 06/13/24 1650 CA previously reported as: 14.0 *H mg/dLCritical Result(s) Called LEAH RONDON at: 1629 by:LAURA??Results read back by same. Performed By: #### L 500.4050 ####[facility] [address] [place], [place], [address] GFR/1.73 sq M.predicted corina g non-blacks MDRD (S/P/Bld) [Vol rate/Area]Ordered By: Kirstie Maxwell on 06-13-2024 Estimated GFR (MDRD) Non-Af Amer 21 Low >60 [facility] Comment on above: mL/min/1.73m2 CKD-EP I Creatinine Equation (2020) Glomerular filtration rate ( GFR) estimation/1.73 sq m using serum, plasma, or whole bOrdered By: Kirstie Maxwell on 06-13-2024 GFR/1.73 sq M.predicted among non-blacks MDRD (S/P/Bld) [Vol rate/Area] 21 mL/min/{1.73_m2} Low >60 [facility] Comment on above: mL/min/1.73m2 CKD-EP I Creatinine Equation (2020) Laboratory - Chemistry and C hemistry - challengeOrdered By: Kirstie Maxwell on 06-13-2024 AST [Catalytic activity/Vol] 65 U/L High <38 [facility] No Panel InformationOrdered By: Kirstie Maxwell on 06-13-2024 65 U/L High <38 [facility] Potassium (Unsp spec) [Mass/ Vol]Ordered By: Kirstie Maxwell on 06-13-2024 Potassium [Moles/Vol] 4.9 mmol/L 3.3-5.1 [facility] Potassium measurement (mass/ volume)Ordered By: Kirstie Maxwell on 06-13-2024 Potassium (Unsp spec) [Mass/Vol] 4.9 mmol/L 3.3-5.1 [facility] Serum creatinine measurement (mass/volume)Ordered By: Kirstie Maxwell on 06-13-2024 Creatinine [Mass/Vol] 3.36 mg/dL High 0.70-1.20 [facility] Serum globulin measurementOr dered By: Kirstie Maxwell on 06-13-2024 Globulin (S) [Mass/Vol] 3.5 g/dL 2.2-4.2 [facility] Serum glucose measurement (m ass/volume)Ordered By: Kirstie Maxwell on 06-13-2024 Glucose [Mass/Vol] 223 mg/dL High 70-99 [facility] Serum or plasma alanine beth otransferase (ALT) measurementOrdered By: Kirstie Maxwell on 06-13-2024 ALT [Catalytic activity/Vol] 46 U/L <47 [facility] Serum or plasma albumin camacho urement (mass/volume)Ordered By: Kirstie Maxwell on 06-13-2024 Albumin [Mass/Vol] 4.2 g/dL 3.5-5.0 [facility] Serum or plasma albumin/glob ulin mass ratioOrdered By: Kirstie Maxwell on 06-13-2024 Albumin/Globulin [Mass ratio] 1.2 {ratio} 0.9-2.4 [facility] Serum or plasma alkaline nerissa sphatase measurementOrdered By: Kirstie Maxwell on 06-13-2024 ALP [Catalytic activity/Vol] 160 U/L High 40-129 [facility] Serum or plasma calcium camacho urement (mass/volume)Ordered By: Kirstie Maxwell on 06-13-2024 Calcium [Mass/Vol] 14.0 mg/dL High 7.6-11.0 [facility] Comment on above: Critical Result(s) C nory LEAH RONDON at: 1629 by: LAURA Results read back by same. Critical Result(s) Called at: by: Results read back by same.Previous reported result: 14.0 mg/dLEdited by: LATOYA on 06/13/24:1650 AMENDED REPORT 06/13/24 1650 CA previously reported as: 14.0 *H mg/dL Critical Result(s) Called LEAH RONDON at: 1629 by: LAURA Results read back by same. Serum or plasma urea nitroge n measurement (mass/volume)Ordered By: Kirstie Maxwell on 06-13-2024 Urea nitrogen [Mass/Vol] 49 mg/dL High 4-19 [facility] Sodium levelOrdered By: Alfonzo Maxwell on 06-13-2024 Sodium [Moles/Vol] 132 mmol/L Low 133-145 [facility] Total proteinOrdered By: Jonathan Maxwell on 06-13-2024 Protein [Mass/Vol] 7.7 g/dL 5.9-8.4 [facility] 12 Lead EKG performed by [facility] on 05-07-2024 12 Lead EKG performed by [facility] Normal [facility] Cardiology Visit Reporton Cardiology Visit Report Normal [facility] Pulmonary Visit Reporton Pulmonary Visit Report Normal [facility] GHASSAN + Protein Elect, Serumon 04-26-2024 Albumin [Mass/Vol] 3.7 g/dL Normal 2.9-4.4 [facility] Comment on above: Order Comment: NUNK Performed By: #### L 100.0100, L3100.3425, L501.6710, L101.9900, L300.3900, L500.4050, L300.4310 ####[facility] [address] [place], [place], [id number] Albumin/Globulin [Mass ratio] 1.1 {ratio} Normal 0.7-1.7 [facility] Comment on above: Order Comment: NUNK Performed By: #### L 100.0100, L3100.3425, L501.6710, L101.9900, L300.3900, L500.4050, L300.4310 ####[facility] [address] [place], [address] SEMBK-9-RVIF 0.3 g/dL Normal 0.0-0.4 [facility] Comment on above: Order Comment: NUNK Performed By: #### L 100.0100, L3100.3425, L501.6710, L101.9900, L300.3900, L500.4050, L300.4310 ####[facility] [address] [place], [address] FHRUP-1-PBLW 0.7 g/dL Normal 0.4-1.0 [facility] Comment on above: Order Comment: NUNK Performed By: #### L 100.0100, L3100.3425, L501.6710, L101.9900, L300.3900, L500.4050, L300.4310 ####[facility] [address] [place], [address] BETA GLOBULIN 1.1 g/dL Normal 0.7-1.3 [facility] Comment on above: Order Comment: NUNK Performed By: #### L 100.0100, L3100.3425, L501.6710, L101.9900, L300.3900, L500.4050, L300.4310 ####[facility] [address] [place], [address] GAMMA GLOBULIN 1.5 g/dL Normal 0.4-1.8 [facility] Comment on above: Order Comment: NUNK Performed By: #### L 100.0100, L3100.3425, L501.6710, L101.9900, L300.3900, L500.4050, L300.4310 ####[facility] [address] [place], [address] Globulin (S) [Mass/Vol] 3.6 g/dL Normal 2.2-3.9 [facility] Comment on above: Order Comment: NUNK Performed By: #### L 100.0100, L3100.3425, L501.6710, L101.9900, L300.3900, L500.4050, L300.4310 ####[facility] [address] [place], [address] GHASSAN RESULT,S Comment Normal . [facility] Comment on above: Order Comment: NUNK Result Comment: No m onoclonality detected. Performed By: #### L 100.0100, L3100.3425, L501.6710, L101.9900, L300.3900, L500.4050, L300.4310 ####[facility] [address] [place], [address] IMMUNOGLOB A QN 356 mg/dL Normal 90-386 [facility] Comment on above: Order Comment: NUNK Performed By: #### L 100.0100, L3100.3425, L501.6710, L101.9900, L300.3900, L500.4050, L300.4310 ####[facility] [address] [place], [address] IMMUNOGLOB G QN 1336 mg/dL Normal 603-1613 [facility] Comment on above: Order Comment: NUNK Performed By: #### L 100.0100, L3100.3425, L501.6710, L101.9900, L300.3900, L500.4050, L300.4310 ####[facility] [address] [place], [address] IMMUNOGLOB M QN 136 mg/dL Normal 20-172 [facility] Comment on above: Order Comment: NUNK Performed By: #### L 100.0100, L3100.3425, L501.6710, L101.9900, L300.3900, L500.4050, L300.4310 ####[facility] [address] [place], [place], [address] M-Nabil Not Observed Normal Not Observed [facility] Comment on above: Order Comment: NUNK Performed By: #### L 100.0100, L3100.3425, L501.6710, L101.9900, L300.3900, L500.4050, L300.4310 ####[facility] [address] [place], [address] NOTE: Comment Normal . [facility] Comment on above: Order Comment: NUNK Result Comment: Prot ein electrophoresis scan will follow via computer,mail, or manager personal delivery.Performed at: [facility] Director: Chidi Roger PhD, Phone: [phone] Performed By: #### L 100.0100, L3100.3425, L501.6710, L101.9900, L300.3900, L500.4050, L300.4310 ####[facility] [address] [place], [address] Protein [Mass/Vol] 7.3 g/dL Normal 6.0-8.5 [facility] Comment on above: Order Comment: NUNK Performed By: #### L 100.0100, L3100.3425, L501.6710, L101.9900, L300.3900, L500.4050, L300.4310 ####[facility] [address] [place], [place], [id number] Endocrinology Visit Reporton 04-24-2024 Endocrinology Visit Report Normal [facility] Laboratory - Hematology and Cell countsOrdered By: Emy Lee on 04-24-2024 HbA1c (Bld) [Mass fraction] 6.4 % High 4.2-6.3 [facility] No Panel InformationOrdered By: Emy Lee on 04-24-2024 6.4 % High 4.2-6.3 [facility] Absolute lymphocyte countOrd ered By: Missy Guzman on 04-23-2024 Lymphocytes Auto (Unsp spec) [#/Vol] 1.10 10*3/uL 0.83-4.51 [facility] Absolute neutrophil countOrd ered By: Missy Guzman on 04-23-2024 Neutrophils (Bld) [#/Vol] 3.6 10*3/uL 2.0-7.7 [facility] Activated partial thrombopla stin time (aPTT) in platelet poor plasma by coagulation aOrdered By: Missy Guzman on 04-23-2024 aPTT Coag (PPP) [Time] 27.2 s 24.1-36.2 [facility] Addendum DocumentOrdered By: Missy Guzman on 04-23-2024 Serum Immunofixation Comments Comment . [facility] Comment on above: Protein electrophore sis scan will follow via computer,mail, or manager personal delivery.Performed at: [facility] [facility] [id number] Director: Chidi Roger PhD, Phone: [phone] Albumin to globulin ratioOrd ered By: Missy Guzman on 04-23-2024 Albumin/Globulin [Mass ratio] 0.8 {ratio} Low 0.9-2.4 [facility] Alpha 1 globulin Elph [Mass/ Vol]Ordered By: Missy Guzman on 04-23-2024 Jsgux-2-Pnswrszvn (GHASSAN) 0.3 g/dL 0.0-0.4 [facility] Zjphl-0-Obbgkywkp (GHASSAN) 0.7 g/dL 0.4-1.0 [facility] Automated lymphocyte count a s percentage of total leukocytesOrdered By: Missy Guzman on 04-23-2024 Lymphocytes/100 WBC Auto (Unsp spec) 20.0 % 19-41 [facility] Basophil percentageOrdered B y: Missy Guzman on 04-23-2024 Basophils/100 WBC (Bld) 0.5 % 0-1 [facility] Beta globulin Elph [Mass/Vol ]Ordered By: Missy Guzman on 04-23-2024 Beta-Globulins (GHASSAN) 1.1 g/dL 0.7-1.3 [facility] Bilirubin, totalOrdered By: Missy Guzman on 04-23-2024 Bilirubin [Mass/Vol] 1.30 mg/dL High 0.20-1.00 [facility] Comment on above: For patients on eltr ombopag therapy, use of Dimension [place] TBIL is not recommended. Blood urea nitrogen (BUN)/cr eatinine ratioOrdered By: Missy Guzman on 04-23-2024 Urea nitrogen/Creatinine [Mass ratio] 20.6 mg/mg High 10-20 [facility] C-reactive protein measureme nt by high sensitivity methodOrdered By: Missy Guzman on 04-23-2024 C-Reactive Protein Extended Range 7.49 mg/L High 0.0-3.0 [facility] Comment on above: C-Reactive Protein ( CRP) provides useful information for thediagnosis, therapy and monitoring of inflammatory processesand associated diseases. For the evaluation of Relative Riskfor Cardiovascular Disease, a High Sensitivity CRP (HSCRP)should be ordered. C-reactive protein measurement by high sensitivity method 7.49 mg/L High 0.0-3.0 [facility] CBC W/Diff, Automatedon 04-13 Absolute Lymph 1.10 X10 3/uL Normal 0.83-4.51 [facility] Comment on above: Performed By: #### L 100.0100, L3100.3425, L501.6710, L101.9900, L300.3900, L500.4050, L300.4310 ####[facility] [address] [place], [place], [id number] Absolute Neut 3.6 X10 3/uL Normal 2.0-7.7 [facility] Comment on above: Performed By: #### L 100.0100, L3100.3425, L501.6710, L101.9900, L300.3900, L500.4050, L300.4310 ####[facility] [address] [place], [address] Basophils/100 WBC (Bld) 0.5 % Normal 0-1 [facility] Comment on above: Performed By: #### L 100.0100, L3100.3425, L501.6710, L101.9900, L300.3900, L500.4050, L300.4310 ####[facility] [address] [place], [address] Eosinophils/100 WBC (Bld) 4.2 % Normal 0-5 [facility] Comment on above: Performed By: #### L 100.0100, L3100.3425, L501.6710, L101.9900, L300.3900, L500.4050, L300.4310 ####[facility] [address] [place], [address] Erythrocyte distribution width (RBC) [Ratio] 15.4 % High 11.6-14.6 [facility] Comment on above: Performed By: #### L 100.0100, L3100.3425, L501.6710, L101.9900, L300.3900, L500.4050, L300.4310 ####[facility] [address] [place], [address] Hematocrit (Bld) [Volume fraction] 40.4 % Normal 40-54 [facility] Comment on above: Performed By: #### L 100.0100, L3100.3425, L501.6710, L101.9900, L300.3900, L500.4050, L300.4310 ####[facility] [address] [place], [address] Hemoglobin (Bld) [Mass/Vol] 14.4 g/dL Normal 13.0-16.5 [facility] Comment on above: Performed By: #### L 100.0100, L3100.3425, L501.6710, L101.9900, L300.3900, L500.4050, L300.4310 ####[facility] [address] [place], [address] IG% 0.700 Normal 0.0-0.9 [facility] Comment on above: Result Comment: IG% - Immature Granulocytes (promyelocytes, myelocytes andmetamyelocytes) > 1% indicates that a LEFT SHIFT is Present. Performed By: #### L 100.0100, L3100.3425, L501.6710, L101.9900, L300.3900, L500.4050, L300.4310 ####[facility] [address] [place], [address] Lymphocytes/100 WBC (Bld) 20.0 % Normal 19-41 [facility] Comment on above: Performed By: #### L 100.0100, L3100.3425, L501.6710, L101.9900, L300.3900, L500.4050, L300.4310 ####[facility] [address] [place], [address] MCH (RBC) [Entitic mass] 31.6 pg Normal 27.0-32.0 [facility] Comment on above: Performed By: #### L 100.0100, L3100.3425, L501.6710, L101.9900, L300.3900, L500.4050, L300.4310 ####[facility] [address] [place], [address] MCHC (RBC) [Mass/Vol] 35.6 g/dL Normal 32-36 [facility] Comment on above: Performed By: #### L 100.0100, L3100.3425, L501.6710, L101.9900, L300.3900, L500.4050, L300.4310 ####[facility] [address] [place], [address] MCV (RBC) [Entitic vol] 88.6 fL Normal 80-94 [facility] Comment on above: Performed By: #### L 100.0100, L3100.3425, L501.6710, L101.9900, L300.3900, L500.4050, L300.4310 ####[facility] [address] [place], [address] Monocytes/100 WBC (Bld) 8.9 % Normal 0-10 [facility] Comment on above: Performed By: #### L 100.0100, L3100.3425, L501.6710, L101.9900, L300.3900, L500.4050, L300.4310 ####[facility] [address] [place], [address] Neutrophils/100 WBC (Bld) 65.7 % Normal 47-70 [facility] Comment on above: Performed By: #### L 100.0100, L3100.3425, L501.6710, L101.9900, L300.3900, L500.4050, L300.4310 ####[facility] [address] [place], [address] Nucleated RBC (Bld) [#/Vol] 0 10*3/uL Normal 0-5 [facility] Comment on above: Performed By: #### L 100.0100, L3100.3425, L501.6710, L101.9900, L300.3900, L500.4050, L300.4310 ####[facility] [address] [place], [address] Platelet mean volume (Bld) [Entitic vol] 9.3 fL Normal 6.2-12.0 [facility] Comment on above: Performed By: #### L 100.0100, L3100.3425, L501.6710, L101.9900, L300.3900, L500.4050, L300.4310 ####[facility] [address] [place], [address] Platelets (Bld) [#/Vol] 143 10*3/uL Low 150-450 [facility] Comment on above: Performed By: #### L 100.0100, L3100.3425, L501.6710, L101.9900, L300.3900, L500.4050, L300.4310 ####[facility] [address] [place], [address] RBC (Bld) [#/Vol] 4.56 10*6/uL Low 4.6-6.2 [facility] Comment on above: Performed By: #### L 100.0100, L3100.3425, L501.6710, L101.9900, L300.3900, L500.4050, L300.4310 ####[facility] [address] [place], [address] RDW SD 48.5 fl High 35.1-43.9 [facility] Comment on above: Performed By: #### L 100.0100, L3100.3425, L501.6710, L101.9900, L300.3900, L500.4050, L300.4310 ####[facility] [address] [place], [address] WBC (Bld) [#/Vol] 5.5 10*3/uL Normal 4.4-11.0 [facility] Comment on above: Performed By: #### L 100.0100, L3100.3425, L501.6710, L101.9900, L300.3900, L500.4050, L300.4310 ####[facility] [address] [place], [address] CRPon 04-23-2024 C-REACTIVE PROT 7.49 mg/L High 0.0-3.0 [facility] Comment on above: Result Comment: C-Re active Protein (CRP) provides useful information for thediagnosis, therapy and monitoring of inflammatory processesand associated diseases. For the evaluation of Relative Riskfor Cardiovascular Disease, a High Sensitivity CRP (HSCRP)should be ordered. Performed By: #### L 100.0100, L3100.3425, L501.6710, L101.9900, L300.3900, L500.4050, L300.4310 ####[facility] [address] [place], [address] Carbon dioxide measurementOr dered By: Missy Guzman on 04-23-2024 CO2 [Moles/Vol] 16.0 mmol/L Low 21.0-32.0 [facility] Chloride measurementOrdered By: Missy Guzman on 04-23-2024 Chloride [Moles/Vol] 108 mmol/L High 98-107 [facility] Comprehensive Metabolic Prof ilon 04-23-2024 Albumin [Mass/Vol] 3.7 g/dL Normal 3.2-5.0 [facility] Comment on above: Order Comment: UNK Performed By: #### L 100.0100, L3100.3425, L501.6710, L101.9900, L300.3900, L500.4050, L300.4310 ####[facility] [address] [place], [address] Albumin/Globulin [Mass ratio] 0.8 {ratio} Low 0.9-2.4 [facility] Comment on above: Order Comment: UNK Performed By: #### L 100.0100, L3100.3425, L501.6710, L101.9900, L300.3900, L500.4050, L300.4310 ####[facility] [address] [place], [address] ALK P 141 U/L High 45-117 [facility] Comment on above: Order Comment: UNK Performed By: #### L 100.0100, L3100.3425, L501.6710, L101.9900, L300.3900, L500.4050, L300.4310 ####[facility] [address] [place], [address] ALT [Catalytic activity/Vol] 40 U/L Normal 16-61 [facility] Comment on above: Order Comment: UNK Performed By: #### L 100.0100, L3100.3425, L501.6710, L101.9900, L300.3900, L500.4050, L300.4310 ####[facility] [address] [place], [address] AST [Catalytic activity/Vol] 57 U/L High 15-37 [facility] Comment on above: Order Comment: UNK Performed By: #### L 100.0100, L3100.3425, L501.6710, L101.9900, L300.3900, L500.4050, L300.4310 ####[facility] [address] [place], [address] Bilirubin [Mass/Vol] 1.30 mg/dL High 0.20-1.00 [facility] Comment on above: Order Comment: UNK Result Comment: For patients on eltrombopag therapy, use of Dimension [place] TBIL is not recommended. Performed By: #### L 100.0100, L3100.3425, L501.6710, L101.9900, L300.3900, L500.4050, L300.4310 ####[facility] [address] [place], [address] BUN/CRE 20.6 RATIO High 10-20 [facility] Comment on above: Order Comment: UNK Performed By: #### L 100.0100, L3100.3425, L501.6710, L101.9900, L300.3900, L500.4050, L300.4310 ####[facility] [address] [place], [address] CA,Total 9.5 mg/dL Normal 8.5-10.1 [facility] Comment on above: Order Comment: UNK Performed By: #### L 100.0100, L3100.3425, L501.6710, L101.9900, L300.3900, L500.4050, L300.4310 ####[facility] [address] [place], [address] Chloride [Moles/Vol] 108 mmol/L High 98-107 [facility] Comment on above: Order Comment: UNK Performed By: #### L 100.0100, L3100.3425, L501.6710, L101.9900, L300.3900, L500.4050, L300.4310 ####[facility] [address] [place], [address] CO2 [Moles/Vol] 16.0 mmol/L Low 21.0-32.0 [facility] Comment on above: Order Comment: UNK Performed By: #### L 100.0100, L3100.3425, L501.6710, L101.9900, L300.3900, L500.4050, L300.4310 ####[facility] [address] [place], [address] Creatinine [Mass/Vol] 1.65 mg/dL High 0.70-1.30 [facility] Comment on above: Order Comment: UNK Result Comment: The validity of the calculated GFR GFRAA in patients over70 years has not been determined. Clinical correlation isessential. Performed By: #### L 100.0100, L3100.3425, L501.6710, L101.9900, L300.3900, L500.4050, L300.4310 ####[facility] [address] [place], [address] EST GFR - AA 57 mL/min Low >60 [facility] Comment on above: Order Comment: UNK Result Comment: Afri can Tongan GFR Calc Performed By: #### L 100.0100, L3100.3425, L501.6710, L101.9900, L300.3900, L500.4050, L300.4310 ####[facility] [address] [place], [address] GAP 11 Normal 5-15 [facility] Comment on above: Order Comment: UNK Performed By: #### L 100.0100, L3100.3425, L501.6710, L101.9900, L300.3900, L500.4050, L300.4310 ####[facility] [address] [place], [address] GFR/1.73 sq M.predicted among non-blacks MDRD (S/P/Bld) [Vol rate/Area] 47 mL/min/{1.73_m2} Low >60 [facility] Comment on above: Order Comment: UNK Result Comment: Non- GFR Calc Performed By: #### L 100.0100, L3100.3425, L501.6710, L101.9900, L300.3900, L500.4050, L300.4310 ####[facility] [address] [place], [address] Globulin (S) [Mass/Vol] 4.4 g/dL High 2.2-4.2 [facility] Comment on above: Order Comment: UNK Performed By: #### L 100.0100, L3100.3425, L501.6710, L101.9900, L300.3900, L500.4050, L300.4310 ####[facility] [address] [place], [address] Glucose [Mass/Vol] 103 mg/dL Normal 74-106 [facility] Comment on above: Order Comment: UNK Result Comment: Fast ing Glucose result from 100 to 125 mg/dLsuggests IMPAIRED HOMEOSTASIS per A.D.A. criteria. Performed By: #### L 100.0100, L3100.3425, L501.6710, L101.9900, L300.3900, L500.4050, L300.4310 ####[facility] [address] [place], [address] Potassium [Moles/Vol] 4.1 mmol/L Normal 3.5-5.1 [facility] Comment on above: Order Comment: UNK Performed By: #### L 100.0100, L3100.3425, L501.6710, L101.9900, L300.3900, L500.4050, L300.4310 ####[facility] [address] [place], [address] Sodium [Moles/Vol] 135 mmol/L Low 136-145 [facility] Comment on above: Order Comment: UNK Performed By: #### L 100.0100, L3100.3425, L501.6710, L101.9900, L300.3900, L500.4050, L300.4310 ####[facility] [address] [place], [address] T PROT 8.1 g/dL Normal 6.4-8.2 [facility] Comment on above: Order Comment: UNK Performed By: #### L 100.0100, L3100.3425, L501.6710, L101.9900, L300.3900, L500.4050, L300.4310 ####[facility] [address] [place], [address] Urea nitrogen [Mass/Vol] 34 mg/dL High 7-18 [facility] Comment on above: Order Comment: UNK Performed By: #### L 100.0100, L3100.3425, L501.6710, L101.9900, L300.3900, L500.4050, L300.4310 ####[facility] [address] [place], [place], [id number] Eosinophil percentageOrdered By: Missy Guzman on 04-23-2024 Eosinophils/100 WBC (Bld) 4.2 % 0-5 [facility] Erythrocyte Sed Rateon 04-23 SED RATE 24 mm/hr High 0-20 [facility] Comment on above: Performed By: #### L 100.0100, L3100.3425, L501.6710, L101.9900, L300.3900, L500.4050, L300.4310 ####[facility] [address] [place], [place], [id number] Erythrocyte distribution wid th (RBC) [Ratio]Ordered By: Missy Guzman on 04-23-2024 Erythrocyte distribution width (RBC) [Entitic vol] 48.5 fL High 35.1-43.9 [facility] Erythrocyte distribution wid th ratioOrdered By: Missy Guzman on 04-23-2024 Erythrocyte distribution width (RBC) [Ratio] 15.4 % High 11.6-14.6 [facility] Erythrocyte distribution wid th standard deviationOrdered By: Missy Guzman on 04-23-2024 Erythrocyte distribution width (RBC) [Ratio] 48.5 fl High 35.1-43.9 [facility] Erythrocyte sedimentation ra teOrdered By: Missy Guzman on 04-23-2024 ESR (Bld) [Velocity] 24 mm/h High 0-20 [facility] Estimated glomerular filtrat ion rate (GFR) AmericanOrdered By: Missy Guzman on 04-23-2024 Estimated GFR (MDRD) Amer 57 mL/min Low >60 [facility] Comment on above: GFR Calc Gamma globulin Elph [Mass/Vo l]Ordered By: Missy Guzman on 04-23-2024 Gamma Globulins (GHASSAN) 1.5 g/dL 0.4-1.8 [facility] Gastroenterology Visit Repor ton 04-23-2024 Gastroenterology Visit Report Normal [facility] Glomerular filtration rate ( GFR) estimationOrdered By: Missy Guzman on 04-23-2024 Estimated GFR (MDRD) Non-Af Amer 47 mL/min Low >60 [facility] Comment on above: Non- GFR Calc GFR/1.73 sq M.predicted among non-blacks MDRD (S/P/Bld) [Vol rate/Area] 47 mL/min/{1.73_m2} Low >60 [facility] Glucose measurementOrdered B y: Missy Guzman on 04-23-2024 Glucose [Mass/Vol] 103 mg/dL 74-106 [facility] Comment on above: Fasting Glucose resu lt from 100 to 125 mg/dL suggests IMPAIRED HOMEOSTASIS per A.D.A. criteria. Hematocrit Auto (Bld) [Volum e fraction]Ordered By: Missy Guzman on 04-23-2024 Hematocrit (Bld) [Volume fraction] 40.4 % 40-54 [facility] Hemoglobin measurementOrdere d By: Missy Guzman on 04-23-2024 Hemoglobin (Bld) [Mass/Vol] 14.4 g/dL 13.0-16.5 [facility] IgA [Mass/Vol]Ordered By: Ra arpit Guzman on 04-23-2024 Immunoglobulin A 356 mg/dL 90-386 [facility] IgG [Mass/Vol]Ordered By: Ra arpit Guzman on 04-23-2024 Immunoglobulin G 1336 mg/dL 603-1613 [facility] Immature granulocytes/100 WB C Auto (Bld)Ordered By: Missy Guzman on 04-23-2024 Immature granulocytes/100 WBC (Bld) 0.700 % 0.0-0.9 [facility] Comment on above: IG% - Immature Granu locytes (promyelocytes, myelocytes and metamyelocytes) > 1% indicates that a LEFT SHIFT is Present. Immunoglobulin M measurement Ordered By: Missy Guzman on 04-23-2024 Immunoglobulin M 136 mg/dL 20-172 [facility] International normalized rat io (INR) calculationOrdered By: Missy Guzman on 04-23-2024 INR Coag (Bld) [Relative time] 1.1 {INR} [facility] Interpretation IEP [Interp]O rdered By: Missy Guzman on 04-23-2024 Immunofixation Screen Comment . [facility] Comment on above: No monoclonality det ected. Interpretation of serum or p lasma protein pattern by immunofixation (narrative resultOrdered By: Missy Guzman on 04-23-2024 Protein Fractions Immunofixation Jose M [Interp] Not Observed g/dL Not Observed [facility] Laboratory - Chemistry and C hemistry - challengeOrdered By: Missy Guzman on 04-23-2024 AST [Catalytic activity/Vol] 57 U/L High 15-37 [facility] Lymphocytes Auto (Unsp spec) [#/Vol]Ordered By: Missy Guzman on 04-23-2024 Lymphocytes (Bld) [#/Vol] 1.10 10*3/uL 0.83-4.51 [facility] Lymphocytes/100 WBC Auto (Un sp spec)Ordered By: Missy Guzman on 04-23-2024 Lymphocytes/100 WBC (Bld) 20.0 % 19-41 [facility] MCV (mean corpuscular volume ) determinationOrdered By: Missy Guzman on 04-23-2024 MCV (RBC) [Entitic vol] 88.6 fL 80-94 [facility] Mean corpuscular hemoglobin (MCH) determinationOrdered By: Missy Guzman on 04-23-2024 MCH (RBC) [Entitic mass] 31.6 pg 27.0-32.0 [facility] Mean corpuscular hemoglobin concentration (MCHC) determinationOrdered By: Missy Guzman on 04-23-2024 MCHC (RBC) [Mass/Vol] 35.6 g/dL 32-36 [facility] Mean platelet volume determi nationOrdered By: Missy Guzman on 04-23-2024 Platelet mean volume (Bld) [Entitic vol] 9.3 fL 6.2-12.0 [facility] Monocyte percentageOrdered B y: Missy Guzman on 04-23-2024 Monocytes/100 WBC (Bld) 8.9 % 0-10 [facility] Neutrophil percentageOrdered By: Missy Guzman on 04-23-2024 Neutrophils/100 WBC (Bld) 65.7 % 47-70 [facility] No Panel InformationOrdered By: Missy Guzman on 04-23-2024 Addendum Document Comment . [facility] 57 U/L High 15-37 [facility] Nucleated red blood cell per centageOrdered By: Missy Guzman on 04-23-2024 Nucleated RBC/100 WBC (Bld) [Ratio] 0 % 0-5 [facility] Partial Thromboplast Timeon 04-23-2024 aPTT Coag (Bld) [Time] 27.2 s Normal 24.1-36.2 [facility] Comment on above: Performed By: #### L 100.0100, L3100.3425, L501.6710, L101.9900, L300.3900, L500.4050, L300.4310 ####[facility] [address] [place], [address] Platelet countOrdered By: Ra arpit Guzman on 04-23-2024 Platelets (Bld) [#/Vol] 143 10*3/uL Low 150-450 [facility] Potassium measurementOrdered By: Missy Guzman on 04-23-2024 Potassium [Moles/Vol] 4.1 mmol/L 3.5-5.1 [facility] Protein Fractions Immunofixa tion Jose M [Interp]Ordered By: Missy Guzman on 04-23-2024 M-Nabil (GHASSAN) Not Observed g/dL Not Observed [facility] Prothrombin Time w/INRon INR Coag (PPP) [Relative time] 1.1 {INR} Normal [facility] Comment on above: Performed By: #### L 100.0100, L3100.3425, L501.6710, L101.9900, L300.3900, L500.4050, L300.4310 ####[facility] [address] [place], [address] PT Coag (PPP) [Time] 14.2 s Normal 11.7-14.9 [facility] Comment on above: Performed By: #### L 100.0100, L3100.3425, L501.6710, L101.9900, L300.3900, L500.4050, L300.4310 ####[facility] [address] [place], [address] Prothrombin timeOrdered By: Missy Guzman on 04-23-2024 PT Coag (PPP) [Time] 14.2 s 11.7-14.9 [facility] RBC Auto (Bld) [#/Vol]Ordere d By: Missy Guzman on 04-23-2024 RBC (Bld) [#/Vol] 4.56 10*6/uL Low 4.6-6.2 [facility] Serum albumin/globulin ratio Ordered By: Missy Guzman on 04-23-2024 Albumin/Globulin (GHASSAN) 1.1 0.7-1.7 [facility] Serum anion gap measurementO rdered By: Missy Guzman on 04-23-2024 Anion gap [Moles/Vol] 11 mmol/L 5-15 [facility] Serum globulin measurement ( mass/volume)Ordered By: Missy Guzman on 04-23-2024 Globulin (S) [Mass/Vol] 3.6 g/dL 2.2-3.9 [facility] Serum or plasma IgA measurem ent (mass/volume)Ordered By: Missy Guzman on 04-23-2024 IgA [Mass/Vol] 356 mg/dL 90-386 [facility] Serum or plasma IgG measurem ent (mass/volume)Ordered By: Missy Guzman on 04-23-2024 IgG [Mass/Vol] 1336 mg/dL 603-1613 [facility] Serum or plasma alanine beth otransferase (ALT) measurementOrdered By: Missy Guzman on 04-23-2024 ALT [Catalytic activity/Vol] 40 U/L 16-61 [facility] Serum or plasma albumin camacoh urement (mass/volume)Ordered By: Missy Guzman on 04-23-2024 Albumin [Mass/Vol] 3.7 g/dL 2.9-4.4 [facility] Serum or plasma alkaline nerissa sphatase measurementOrdered By: Missy Guzman on 04-23-2024 ALP [Catalytic activity/Vol] 141 U/L High 45-117 [facility] Serum or plasma alpha 1 glob ulin measurement by electrophoresis (mass/volume)Ordered By: Missy Guzman on 04-23-2024 Alpha 1 globulin Elph [Mass/Vol] 0.3 g/dL 0.0-0.4 [facility] Alpha 1 globulin Elph [Mass/Vol] 0.7 g/dL 0.4-1.0 [facility] Serum or plasma beta globuli n measurement by electrophoresis (mass/volume)Ordered By: Missy Guzman on 04-23-2024 Beta globulin Elph [Mass/Vol] 1.1 g/dL 0.7-1.3 [facility] Serum or plasma calcium camacho urement (mass/volume)Ordered By: Missy Guzman on 04-23-2024 Calcium [Mass/Vol] 9.5 mg/dL 8.5-10.1 [facility] Serum or plasma creatinine m easurement (mass/volume)Ordered By: Missy Guzman on 04-23-2024 Creatinine [Mass/Vol] 1.65 mg/dL High 0.70-1.30 [facility] Comment on above: The validity of the calculated GFR & GFRAA in patients over 70 years has not been determined. Clinical correlation is essential. Serum or plasma gamma globul in measurement by electrophoresis (mass/volume)Ordered By: Missy Guzman on 04-23-2024 Gamma globulin Elph [Mass/Vol] 1.5 g/dL 0.4-1.8 [facility] Serum or plasma immunoelectr ophoresis interpretation (nominal result)Ordered By: Missy Guzman on 04-23-2024 Interpretation IEP [Interp] Comment . [facility] Serum or plasma protein camacho urement (mass/volume)Ordered By: Missy Guzman on 04-23-2024 Protein [Mass/Vol] 7.3 g/dL 6.0-8.5 [facility] Serum or plasma urea nitroge n measurement (mass/volume)Ordered By: Missy Guzman on 04-23-2024 Urea nitrogen [Mass/Vol] 34 mg/dL High 7-18 [facility] Sodium levelOrdered By: Fede monreal Friend on 04-23-2024 Sodium [Moles/Vol] 135 mmol/L Low 136-145 [facility] Total proteinOrdered By: Lenin silva Friend on 04-23-2024 Protein [Mass/Vol] 8.1 g/dL 6.4-8.2 [facility] White blood cell (WBC) count Ordered By: Missy Guzman on 04-23-2024 WBC (Bld) [#/Vol] 5.5 10*3/uL 4.4-11.0 [facility] aPTT Coag (PPP) [Time]Ordere d By: Missy Guzman on 04-23-2024 aPTT Coag (Bld) [Time] 27.2 s 24.1-36.2 [facility] 82-PT-Anszorq DOrdered By: Que Lee on 04-02-2024 Vitamin D 25-Hydroxy 24.7 ng/mL [facility] Comment on above: Vitamin D 25(OH) Sta tus Range Deficiency <20 ng/mL (50nmol/L) Insufficiency 20 - 30 ng/mL (50 - 75 nmol/L) Sufficiency 30 - 100 ng/mL (75 - 250 nmol/L) Toxicity >100 ng/mL (>250 nmol/L) Direct serum free thyroxine (FT4) measurementOrdered By: Emy Lee on 04-02-2024 Free T4 [Mass/Vol] 1.20 ng/dL 0.76-1.46 [facility] High density lipoprotein (HD L) measurementOrdered By: Emy Lee on 04-02-2024 Cholesterol in HDL [Mass/Vol] 46 mg/dL >40 [facility] Comment on above: The drugs N-Acetylcy steine and Metamizole may falsely depress this assay. Reference Range HDL <40 mg/dL Low HDL Cholesterol HDL >or= 60 mg/dL High HDL Cholesterol High density lipoprotein (HDL) measurement 46 mg/dL >40 [facility] Lipid Profileon 04-02-2024 Cholesterol [Mass/Vol] 138 mg/dL Normal 200 [facility] Comment on above: Result Comment: <200 mg/dL Desirable 200-240 mg/dL Borderline >240 mg/dL High Risk Performed By: #### L 506.1000, L501.9520, L500.4100, L506.0400, L502.0250 ####[facility] [address] [place], [address] Cholesterol in HDL [Mass/Vol] 46 mg/dL Normal [facility] Comment on above: Result Comment: The drugs N-Acetylcysteine and Metamizole may falselydepress this assay. Reference Range HDL <40 mg/dL Low HDL Cholesterol HDL >or= 60 mg/dL High HDL Cholesterol Performed By: #### L 506.1000, L501.9520, L500.4100, L506.0400, L502.0250 ####[facility] [address] [place], [address] Cholesterol in LDL [Mass/Vol] 50 mg/dL Normal 0-130 [facility] Comment on above: Performed By: #### L 506.1000, L501.9520, L500.4100, L506.0400, L502.0250 ####[facility] [address] [place], [address] Cholesterol in VLDL [Mass/Vol] 42 mg/dL High 5-40 [facility] Comment on above: Performed By: #### L 506.1000, L501.9520, L500.4100, L506.0400, L502.0250 ####[facility] [address] [place], [address] Triglyceride [Mass/Vol] 210 mg/dL High [facility] Comment on above: Result Comment: The drugs N-Acetylcysteine and Metamizole may falselydepress this assay.Serum Triglycerides Reference Interval Normal <150 mg/dL Borderline high 150 - 199 mg/dL High 200 - 499 mg/dL Very High > or = 500 mg/dL Performed By: #### L 506.1000, L501.9520, L500.4100, L506.0400, L502.0250 ####[facility] [address] [place], [address] Low density lipoprotein (LDL ) cholesterol measurementOrdered By: Emy Lee on 04-02-2024 Cholesterol in LDL [Mass/Vol] 50 mg/dL 0-130 [facility] Low density lipoprotein (LDL) cholesterol measurement 50 mg/dL 0-130 [facility] Microalb:Creat Ratio,Random URon 04-02-2024 MALB:CRE Normal <30 mg/g CRE [facility] Comment on above: Result Comment: UTO URINE Performed By: #### L 506.1000, L501.9520, L500.4100, L506.0400, L502.0250 ####[facility] [address] [place], [address] MICROALBUMIN,UR Normal NO RANGE EST. [facility] Comment on above: Result Comment: UTO URINE Performed By: #### L 506.1000, L501.9520, L500.4100, L506.0400, L502.0250 ####[facility] [address] [place], [address] UR CREAT Normal NO RANGE EST. [facility] Comment on above: Result Comment: UTO URINE Performed By: #### L 506.1000, L501.9520, L500.4100, L506.0400, L502.0250 ####[facility] [address] [place], [address] Serum or plasma cholesterol measurement (mass/volume)Ordered By: Emy Lee on 04-02-2024 Cholesterol [Mass/Vol] 138 mg/dL <200 [facility] Comment on above: <200 mg/dL Desirable 200-240 mg/dL Borderline >240 mg/dL High Risk Serum or plasma thyroid stim ulating hormone (TSH) measurement (units/volume)Ordered By: Emy Lee on 04-02-2024 TSH Qn 3.280 uIU/mL 0.358-3.740 [facility] T4 Free Directon 04-02-2024 T4 FREE DIRECT 1.20 ng/dL Normal 0.76-1.46 [facility] Comment on above: Performed By: #### L 506.1000, L501.9520, L500.4100, L506.0400, L502.0250 ####[facility] [address] [place], [address] TSH QnOrdered By: Emy montana on 04-02-2024 Thyroid Stimulating Hormone (TSH) 3.280 uIU/mL 0.358-3.740 [facility] Thyroid Stim Hormone (TSH)on 04-02-2024 TSH 3.280 uIU/mL Normal 0.358-3.740 [facility] Comment on above: Performed By: #### L 506.1000, L501.9520, L500.4100, L506.0400, L502.0250 ####[facility] [address] [place], [place], [id number] Triglycerides measurementOrd ered By: Emy Lee on 04-02-2024 Triglyceride [Mass/Vol] 210 mg/dL High <199 [facility] Comment on above: The drugs N-Acetylcy steine and Metamizole may falsely depress this assay.Serum Triglycerides Reference Interval Normal <150 mg/dL Borderline high 150 - 199 mg/dL High 200 - 499 mg/dL Very High > or = 500 mg/dL Very low density lipoprotein (VLDL) cholesterol measurementOrdered By: Emy Lee on 04-02-2024 Very low density lipoprotein (VLDL) cholesterol measurement 42 mg/dL High 5-40 [facility] VLDL Cholesterol 42 mg/dL High 5-40 [facility] Vitamin D,25 Hydroxyon 04-02 Vitamin D 25-OH 24.7 ng/mL Normal [facility] Comment on above: Result Comment: Berenice min D 25(OH) Status Range Deficiency <20 ng/mL (50nmol/L) Insufficiency 20 - 30 ng/mL (50 - 75 nmol/L) Sufficiency 30 - 100 ng/mL (75 - 250 nmol/L) Toxicity >100 ng/mL (>250 nmol/L) Performed By: #### L 506.1000, L501.9520, L500.4100, L506.0400, L502.0250 ####[facility] [address] [place], [place], [id number] Echo Complete W/ Contraston 03-28-2024 Echo Complete W/ Contrast Normal [facility] Pulmonary Visit Reporton Pulmonary Visit Report Normal [facility] 6 Minute Walk Teston 024 6 Minute Walk Test Normal [facility] Pulmonary Visit Reporton Pulmonary Visit Report Normal [facility] AFP, Tumor Markeron 01-25-20 AFP TUMOR RENEE 2.5 ng/mL Normal 0.0-6.9 [facility] Comment on above: Order Comment: NN Result Comment: Surikate Electrochemiluminescence Immunoassay(ECLIA)Values obtained with different assay methods or kits cannotbe used interchangeably. Results cannot be interpreted asabsolute evidence of the presence or absence of malignantdisease.This test is not interpretable in females.Performed at: [facility] [id number] Director: Chidi Roger PhD, Phone: [phone] Performed By: #### L 3100.3425, L500.4050, L3300.0700, L100.0100, L300.3900 ####[facility] [address] [place], [place], [id number] GHASSAN + Protein Elect, Serumon 01-25-2024 Albumin [Mass/Vol] 3.5 g/dL Normal 2.9-4.4 [facility] Comment on above: Order Comment: NN Performed By: #### L 3100.3425, L500.4050, L3300.0700, L100.0100, L300.3900 ####[facility] [address] [place], [place], [address] Albumin/Globulin [Mass ratio] 0.9 {ratio} Normal 0.7-1.7 [facility] Comment on above: Order Comment: NN Performed By: #### L 3100.3425, L500.4050, L3300.0700, L100.0100, L300.3900 ####[facility] [address] [place], [address] VFGRS-3-AXNS 0.3 g/dL Normal 0.0-0.4 [facility] Comment on above: Order Comment: NN Performed By: #### L 3100.3425, L500.4050, L3300.0700, L100.0100, L300.3900 ####[facility] [address] [place], [address] LWEQE-5-GEHY 0.7 g/dL Normal 0.4-1.0 [facility] Comment on above: Order Comment: NN Performed By: #### L 3100.3425, L500.4050, L3300.0700, L100.0100, L300.3900 ####[facility] [address] [place], [address] BETA GLOBULIN 1.2 g/dL Normal 0.7-1.3 [facility] Comment on above: Order Comment: NN Performed By: #### L 3100.3425, L500.4050, L3300.0700, L100.0100, L300.3900 ####[facility] [address] [place], [address] GAMMA GLOBULIN 1.7 g/dL Normal 0.4-1.8 [facility] Comment on above: Order Comment: NN Performed By: #### L 3100.3425, L500.4050, L3300.0700, L100.0100, L300.3900 ####[facility] [address] [place], [address] Globulin (S) [Mass/Vol] 3.9 g/dL Normal 2.2-3.9 [facility] Comment on above: Order Comment: NN Performed By: #### L 3100.3425, L500.4050, L3300.0700, L100.0100, L300.3900 ####[facility] [address] [place], [address] GHASSAN RESULT,S Comment Normal . [facility] Comment on above: Order Comment: NN Result Comment: No m onoclonality detected. Performed By: #### L 3100.3425, L500.4050, L3300.0700, L100.0100, L300.3900 ####[facility] [address] [place], [address] IMMUNOGLOB A QN 382 mg/dL Normal 90-386 [facility] Comment on above: Order Comment: NN Performed By: #### L 3100.3425, L500.4050, L3300.0700, L100.0100, L300.3900 ####[facility] [address] [place], [address] IMMUNOGLOB G QN 1429 mg/dL Normal 603-1613 [facility] Comment on above: Order Comment: NN Performed By: #### L 3100.3425, L500.4050, L3300.0700, L100.0100, L300.3900 ####[facility] [address] [place], [address] IMMUNOGLOB M QN 142 mg/dL Normal 20-172 [facility] Comment on above: Order Comment: NN Performed By: #### L 3100.3425, L500.4050, L3300.0700, L100.0100, L300.3900 ####[facility] [address] [place], [address] M-Nabil Not Observed Normal Not Observed [facility] Comment on above: Order Comment: NN Performed By: #### L 3100.3425, L500.4050, L3300.0700, L100.0100, L300.3900 ####[facility] [address] [place], [place], [id number] NOTE: Comment Normal . [facility] Comment on above: Order Comment: NN Result Comment: Prot ein electrophoresis scan will follow via computer,mail, or manager personal delivery. Performed By: #### L 3100.3425, L500.4050, L3300.0700, L100.0100, L300.3900 ####[facility] [address] [place], [address] Protein [Mass/Vol] 7.4 g/dL Normal 6.0-8.5 [facility] Comment on above: Order Comment: NN Performed By: #### L 3100.3425, L500.4050, L3300.0700, L100.0100, L300.3900 ####[facility] [address] [place], [place], [phone] CBC W/Diff, Automatedon 11- Absolute Lymph 0.85 X10 3/uL Normal 0.83-4.51 [facility] Comment on above: Performed By: #### L 3100.3425, L500.4050, L3300.0700, L100.0100, L300.3900 ####[facility] [address] [place], [address] Absolute Neut 3.7 X10 3/uL Normal 2.0-7.7 [facility] Comment on above: Performed By: #### L 3100.3425, L500.4050, L3300.0700, L100.0100, L300.3900 ####[facility] [address] [place], [address] Basophils/100 WBC (Bld) 0.4 % Normal 0-1 [facility] Comment on above: Performed By: #### L 3100.3425, L500.4050, L3300.0700, L100.0100, L300.3900 ####[facility] [address] [place], [address] Eosinophils/100 WBC (Bld) 4.7 % Normal 0-5 [facility] Comment on above: Performed By: #### L 3100.3425, L500.4050, L3300.0700, L100.0100, L300.3900 ####[facility] [address] [place], [address] Erythrocyte distribution width (RBC) [Ratio] 14.9 % High 11.6-14.6 [facility] Comment on above: Performed By: #### L 3100.3425, L500.4050, L3300.0700, L100.0100, L300.3900 ####[facility] [address] [place], [address] Hematocrit (Bld) [Volume fraction] 39.1 % Low 40-54 [facility] Comment on above: Performed By: #### L 3100.3425, L500.4050, L3300.0700, L100.0100, L300.3900 ####[facility] [address] [place], [address] Hemoglobin (Bld) [Mass/Vol] 13.5 g/dL Normal 13.0-16.5 [facility] Comment on above: Performed By: #### L 3100.3425, L500.4050, L3300.0700, L100.0100, L300.3900 ####[facility] [address] [place], [address] IG% 0.400 Normal 0.0-0.9 [facility] Comment on above: Result Comment: IG% - Immature Granulocytes (promyelocytes, myelocytes andmetamyelocytes) > 1% indicates that a LEFT SHIFT is Present. Performed By: #### L 3100.3425, L500.4050, L3300.0700, L100.0100, L300.3900 ####[facility] [address] [place], [address] Lymphocytes/100 WBC (Bld) 16.5 % Low 19-41 [facility] Comment on above: Performed By: #### L 3100.3425, L500.4050, L3300.0700, L100.0100, L300.3900 ####[facility] [address] [place], [address] MCH (RBC) [Entitic mass] 32.5 pg High 27.0-32.0 [facility] Comment on above: Performed By: #### L 3100.3425, L500.4050, L3300.0700, L100.0100, L300.3900 ####[facility] [address] [place], [address] MCHC (RBC) [Mass/Vol] 34.5 g/dL Normal 32-36 [facility] Comment on above: Performed By: #### L 3100.3425, L500.4050, L3300.0700, L100.0100, L300.3900 ####[facility] [address] [place], [address] MCV (RBC) [Entitic vol] 94.2 fL High 80-94 [facility] Comment on above: Performed By: #### L 3100.3425, L500.4050, L3300.0700, L100.0100, L300.3900 ####[facility] [address] [place], [address] Monocytes/100 WBC (Bld) 6.0 % Normal 0-10 [facility] Comment on above: Performed By: #### L 3100.3425, L500.4050, L3300.0700, L100.0100, L300.3900 ####[facility] [address] [place], [address] Neutrophils/100 WBC (Bld) 72.0 % High 47-70 [facility] Comment on above: Performed By: #### L 3100.3425, L500.4050, L3300.0700, L100.0100, L300.3900 ####[facility] [address] [place], [address] Nucleated RBC (Bld) [#/Vol] 0 10*3/uL Normal 0-5 [facility] Comment on above: Performed By: #### L 3100.3425, L500.4050, L3300.0700, L100.0100, L300.3900 ####[facility] [address] [place], [address] Platelet mean volume (Bld) [Entitic vol] 9.0 fL Normal 6.2-12.0 [facility] Comment on above: Performed By: #### L 3100.3425, L500.4050, L3300.0700, L100.0100, L300.3900 ####[facility] [address] [place], [address] Platelets (Bld) [#/Vol] 128 10*3/uL Low 150-450 [facility] Comment on above: Performed By: #### L 3100.3425, L500.4050, L3300.0700, L100.0100, L300.3900 ####[facility] [address] [place], [address] RBC (Bld) [#/Vol] 4.15 10*6/uL Low 4.6-6.2 [facility] Comment on above: Performed By: #### L 3100.3425, L500.4050, L3300.0700, L100.0100, L300.3900 ####[facility] [address] [place], [address] RDW SD 50.9 fl High 35.1-43.9 [facility] Comment on above: Performed By: #### L 3100.3425, L500.4050, L3300.0700, L100.0100, L300.3900 ####[facility] [address] [place], [address] WBC (Bld) [#/Vol] 5.2 10*3/uL Normal 4.4-11.0 [facility] Comment on above: Performed By: #### L 3100.3425, L500.4050, L3300.0700, L100.0100, L300.3900 ####[facility] [address] [place], [address] Comprehensive Metabolic Prof il 01-23-2024 Albumin [Mass/Vol] 3.6 g/dL Normal 3.2-5.0 [facility] Comment on above: Performed By: #### L 3100.3425, L500.4050, L3300.0700, L100.0100, L300.3900 ####[facility] [address] [place], [address] Albumin/Globulin [Mass ratio] 0.9 {ratio} Normal 0.9-2.4 [facility] Comment on above: Performed By: #### L 3100.3425, L500.4050, L3300.0700, L100.0100, L300.3900 ####[facility] [address] [place], [address] ALK P 195 U/L High 45-117 [facility] Comment on above: Performed By: #### L 3100.3425, L500.4050, L3300.0700, L100.0100, L300.3900 ####[facility] [address] [place], [address] ALT [Catalytic activity/Vol] 38 U/L Normal 16-61 [facility] Comment on above: Performed By: #### L 3100.3425, L500.4050, L3300.0700, L100.0100, L300.3900 ####[facility] [address] [place], [address] AST [Catalytic activity/Vol] 52 U/L High 15-37 [facility] Comment on above: Performed By: #### L 3100.3425, L500.4050, L3300.0700, L100.0100, L300.3900 ####[facility] [address] [place], [address] Bilirubin [Mass/Vol] 0.70 mg/dL Normal 0.20-1.00 [facility] Comment on above: Result Comment: For patients on eltrombopag therapy, use of Dimension [place] TBIL is not recommended. Performed By: #### L 3100.3425, L500.4050, L3300.0700, L100.0100, L300.3900 ####[facility] [address] [place], [address] BUN/CRE 16.6 RATIO Normal 10-20 [facility] Comment on above: Performed By: #### L 3100.3425, L500.4050, L3300.0700, L100.0100, L300.3900 ####[facility] [address] [place], [address] CA,Total 8.8 mg/dL Normal 8.5-10.1 [facility] Comment on above: Performed By: #### L 3100.3425, L500.4050, L3300.0700, L100.0100, L300.3900 ####[facility] [address] [place], [address] Chloride [Moles/Vol] 110 mmol/L High 98-107 [facility] Comment on above: Performed By: #### L 3100.3425, L500.4050, L3300.0700, L100.0100, L300.3900 ####[facility] [address] [place], [address] CO2 [Moles/Vol] 21.0 mmol/L Normal 21.0-32.0 [facility] Comment on above: Performed By: #### L 3100.3425, L500.4050, L3300.0700, L100.0100, L300.3900 ####[facility] [address] [place], [address] Creatinine [Mass/Vol] 1.69 mg/dL High 0.70-1.30 [facility] Comment on above: Result Comment: The validity of the calculated GFR GFRAA in patients over70 years has not been determined. Clinical correlation isessential. Performed By: #### L 3100.3425, L500.4050, L3300.0700, L100.0100, L300.3900 ####[facility] [address] [place], [address] EST GFR - AA 56 mL/min Low >60 [facility] Comment on above: Result Comment: Afri can Tongan GFR Calc Performed By: #### L 3100.3425, L500.4050, L3300.0700, L100.0100, L300.3900 ####[facility] [address] [place], [address] GAP 8 Normal 5-15 [facility] Comment on above: Performed By: #### L 3100.3425, L500.4050, L3300.0700, L100.0100, L300.3900 ####[facility] [address] [place], [address] GFR/1.73 sq M.predicted among non-blacks MDRD (S/P/Bld) [Vol rate/Area] 46 mL/min/{1.73_m2} Low >60 [facility] Comment on above: Result Comment: Non- GFR Calc Performed By: #### L 3100.3425, L500.4050, L3300.0700, L100.0100, L300.3900 ####[facility] [address] [place], [address] Globulin (S) [Mass/Vol] 4.1 g/dL Normal 2.2-4.2 [facility] Comment on above: Performed By: #### L 3100.3425, L500.4050, L3300.0700, L100.0100, L300.3900 ####[facility] [address] [place], [address] Glucose [Mass/Vol] 164 mg/dL High 74-106 [facility] Comment on above: Result Comment: Fast ing Glucose result greater than or equal to 126 mg/dLsuggests DIABETES MELLITUS per A.D.A. criteria. Performed By: #### L 3100.3425, L500.4050, L3300.0700, L100.0100, L300.3900 ####[facility] [address] [place], [address] Potassium [Moles/Vol] 4.2 mmol/L Normal 3.5-5.1 [facility] Comment on above: Performed By: #### L 3100.3425, L500.4050, L3300.0700, L100.0100, L300.3900 ####[facility] [address] [place], [address] Sodium [Moles/Vol] 138 mmol/L Normal 136-145 [facility] Comment on above: Performed By: #### L 3100.3425, L500.4050, L3300.0700, L100.0100, L300.3900 ####[facility] [address] [place], [address] T PROT 7.7 g/dL Normal 6.4-8.2 [facility] Comment on above: Performed By: #### L 3100.3425, L500.4050, L3300.0700, L100.0100, L300.3900 ####[facility] [address] [place], [address] Urea nitrogen [Mass/Vol] 28 mg/dL High 7-18 [facility] Comment on above: Performed By: #### L 3100.3425, L500.4050, L3300.0700, L100.0100, L300.3900 ####[facility] [address] [place], [address] Gastroenterology Visit Repor ton 01-23-2024 Gastroenterology Visit Report Normal [facility] Prothrombin Time w/INRon INR Coag (PPP) [Relative time] 1.1 {INR} Normal [facility] Comment on above: Performed By: #### L 3100.3425, L500.4050, L3300.0700, L100.0100, L300.3900 ####[facility] [address] [place], [address] PT Coag (PPP) [Time] 14.1 s Normal 11.7-14.9 [facility] Comment on above: Performed By: #### L 3100.3425, L500.4050, L3300.0700, L100.0100, L300.3900 ####[facility] [address] [place], [address] Endocrinology Visit Reporton 01-15-2024 Endocrinology Visit Report Normal [facility] Chest without Contraston Chest without Contrast Normal [facility] Basophil percentageOrdered B y: Missy Guzman on 05-23-2023 Creatinine [Mass/Vol] 2.1 mg/dL 0.70-1.30 [facility] Laboratory - Chemistry and C hemistry - challengeOrdered By: Missy Guzman on 05-23-2023 GFR/1.73 sq M.predicted among non-blacks MDRD (S/P/Bld) [Vol rate/Area] 37.0000 mL/min/{1.73_m2} >60 [facility] Laboratory - Hematology and Cell countson 05-15-2023 HbA1c (Bld) [Mass fraction] 5.9 % 4.2-6.3 [facility] Whole blood hemoglobin A1c/t otal hemoglobin ratio (mass fraction)Ordered By: Emy Lee on 05-15-2023 HbA1c (Bld) [Mass fraction] 5.9 % 3.8-5.6 [facility] Comment on above: Normal < 5.7 % Predi abetic 5.7 - 6.4 % Diabetic >or= 6.5 % Please note range changes. Laboratory - Chemistry and C hemistry - challengeOrdered By: Missy Guzman on 04-10-2023 AFP.tumor marker [Mass/Vol] 2.1 ng/mL 0.0-6.9 [facility] Comment on above: [employer] El ectrochemiluminescence Immunoassay(ECLIA)Values obtained with different assay methods or kits cannotbe used interchangeably. Results cannot be interpreted asabsolute evidence of the presence or absence of malignantdisease.This test is not interpretable in females.Performed at: [facility] [id number] Director: Chidi Roger PhD, Phone: [phone] Basophil percentageOrdered B y: Nikki Katerina on 04-03-2023 Bilirubin [Mass/Vol] 0.90 mg/dL 0.20-1.00 [facility] Comment on above: For patients on eltr ombopag therapy, use of Dimension [place] TBIL is not recommended. Chloride [Moles/Vol] 104 mmol/L 98-107 [facility] Cholesterol [Mass/Vol] 130 mg/dL <200 [facility] Comment on above: <200 mg/dL Desirable 200-240 mg/dL Borderline >240 mg/dL High Risk Glucose [Mass/Vol] 259 mg/dL 74-106 [facility] Comment on above: Glucose result great er than or equal to 200 mg/dLsuggests DIABETES MELLITUS per A.D.A. criteria. Hemoglobin (Bld) [Mass/Vol] 13.5 g/dL 13.0-16.5 [facility] Potassium [Moles/Vol] 4.2 mmol/L 3.5-5.1 [facility] Comment on above: Moderate Hemolysis, Result may be falsely increased. Protein [Mass/Vol] 7.4 g/dL 6.4-8.2 [facility] Sodium [Moles/Vol] 133 mmol/L 136-145 [facility] Triglyceride [Mass/Vol] 202 mg/dL <199 [facility] Comment on above: The drugs N-Acetylcy steine and Metamizole may falsely depress this assay.Serum Triglycerides Reference Interval Normal <150 mg/dL Borderline high 150 - 199 mg/dL High 200 - 499 mg/dL Very High > or = 500 mg/dL WBC (Bld) [#/Vol] 4.5 10*3/uL 4.4-11.0 [facility] Determination of erythrocyte mean corpuscular volume (MCV)Ordered By: Nikki Borges on 04-03-2023 MCV (RBC) [Entitic vol] 90.7 fL 80-94 [facility] Erythrocyte distribution wid th ratioOrdered By: Nikki Borges on 04-03-2023 Erythrocyte distribution width (RBC) [Ratio] 15.0 % 11.6-14.6 [facility] Erythrocyte distribution wid th standard deviationOrdered By: Nikki Borges on 04-03-2023 Erythrocyte distribution width (RBC) [Entitic vol] 49.7 fL 35.1-43.9 [facility] Hematocrit Auto (Bld) [Volum e fraction]Ordered By: Nikki Borges on 04-03-2023 Hematocrit (Bld) [Volume fraction] 38.8 % 40-54 [facility] High density lipoprotein (HD L) measurementOrdered By: Nikki Borges on 04-03-2023 Cholesterol in HDL (Body fld) [Mass/Vol] 32 mg/dL >40 [facility] Comment on above: The drugs N-Acetylcy steine and Metamizole may falsely depress this assay. Reference Range HDL <40 mg/dL Low HDL Cholesterol HDL >or= 60 mg/dL High HDL Cholesterol Laboratory - Chemistry and C hemistry - challengeOrdered By: Nikki Borges on 04-03-2023 Albumin/Globulin [Mass ratio] 0.8 {ratio} 0.9-2.4 [facility] ALP [Catalytic activity/Vol] 222 U/L 45-117 [facility] ALT [Catalytic activity/Vol] 44 U/L 16-61 [facility] CO2 [Moles/Vol] 21.0 mmol/L 21.0-32.0 [facility] Globulin (S) [Mass/Vol] 4.1 g/dL 2.2-4.2 [facility] Urea nitrogen/Creatinine [Mass ratio] 15.2 mg/mg 10-20 [facility] Laboratory - Hematology and Cell countsOrdered By: Nikki Borges on 04-03-2023 MCH (RBC) [Entitic mass] 31.5 pg 27.0-32.0 [facility] MCHC (RBC) [Mass/Vol] 34.8 g/dL 32-36 [facility] Platelets (Bld) [#/Vol] 116 10*3/uL 150-450 [facility] Low density lipoprotein (LDL ) cholesterol measurementOrdered By: Nikki Borges on 04-03-2023 Cholesterol in LDL (Body fld) [Moles/Vol] 58 mg/dL 0-130 [facility] No Panel InformationOrdered By: Nikki Borges on 04-03-2023 Estimated GFR (MDRD) Amer 58 mL/min >60 [facility] Comment on above: GFR Calc Estimated GFR (MDRD) Non-Af Amer 48 mL/min >60 [facility] Comment on above: Non- GFR Calc Platelet mean volume J[place]-Ec ker (Bld) [Entitic vol]Ordered By: Nikki Borges on 04-03-2023 Platelet mean volume (Bld) [Entitic vol] 9.1 fL 6.2-12.0 [facility] RBC Auto (Bld) [#/Vol]Ordere d By: Nikki Borges on 04-03-2023 RBC (Bld) [#/Vol] 4.28 10*6/uL 4.6-6.2 [facility] Serum or plasma calcium camacho urement (mass/volume)Ordered By: Nikki Borges on 04-03-2023 Calcium [Mass/Vol] 8.9 mg/dL 8.5-10.1 [facility] Serum or plasma creatinine m easurement (mass/volume)Ordered By: Nikki Borges on 04-03-2023 Creatinine [Mass/Vol] 1.64 mg/dL 0.70-1.30 [facility] Comment on above: The validity of the calculated GFR & GFRAA in patients over 70 years has not been determined. Clinical correlation is essential. Serum or plasma urea nitroge n measurement (mass/volume)Ordered By: Nikki Borges on 04-03-2023 Urea nitrogen [Mass/Vol] 25 mg/dL 7-18 [facility] Thin prep Papanicolaou smear with manual screeningOrdered By: Nikki Borges on 04-03-2023 Protein (U) [Mass/Vol] 81.1 mg/dL 0.0-11.8 [facility] Thin prep Papanicolaou smear with manual screening 3.3 g/dL 3.2-5.0 [facility] Thin prep Papanicolaou smear with manual screening 65 U/L 15-37 [facility] Comment on above: Moderate Hemolysis, Result may be falsely increased. Thin prep Papanicolaou smear with manual screening 8 5-15 [facility] Urine creatinine measurement (mass/volume)Ordered By: Nikki Borges on 04-03-2023 Creatinine (U) [Mass/Vol] 137.00 mg/dL NO RANGE EST. [facility] Urine protein/creatinine mas s ratioOrdered By: Nikki Borges on 04-03-2023 Protein/Creatinine (U) [Mass ratio] 592 mg/g CRE 0-200 [facility] Very low density lipoprotein (VLDL) cholesterol measurementOrdered By: Nikki Borges on 04-03-2023 Cholesterol in VLDL Calc [Moles/Vol] 40 mg/dL 5-40 [facility] Laboratory - Chemistry and C hemistry - challengeOrdered By: Emy Lee on 01-26-2023 Free T4 [Mass/Vol] 1.31 ng/dL 0.76-1.46 [facility] Laboratory - Hematology and Cell countson 01-26-2023 HbA1c (Bld) [Mass fraction] 7.1 % [facility] No Panel InformationOrdered By: Emy Lee on 01-26-2023 Thyroid Stimulating Hormone (TSH) 1.94 uIU/mL 0.358-3.74 [facility] Erythrocyte sedimentation ra teOrdered By: Missy Guzman on 12-12-2022 ESR (Bld) [Velocity] 24 mm/h 0-20 [facility] No Panel InformationOrdered By: Missy Guzman on 12-12-2022 Miscellaneous Test See comment [facility] Comment on above: TEST RESULT LIMITS H istoplasma Gal,alexsander Ag Ser <0.5 <0.5 ng/mL TESTING PERFORMED AT [facility]. ORIGINAL REPORT ON FILE IN LAB CONTAINS ADDITIONAL TEST SITE INFORMATION. Parathyroid Hormone (Intact) 37.6 pg/mL 18.4-80.1 [facility] Qualitative QuantiFERON-TB g old in tube testOrdered By: Missy Guzman on 12-12-2022 M. tuberculosis tuberculin stim IFN-g Ql (Bld) 0.05 IU/mL . [facility] Serum Histoplasma capsulatum antibody titer by immunodiffusionOrdered By: Missy Guzman on 12-12-2022 H. capsulatum Ab Immune diff (S) [Titer] Negative Neg:<1:1 [facility] Comment on above: Performed at: [facility] [address] [id number] Director: Chidi Roger PhD, Phone: [phone] at: [address] [id number] Director: Rene Lynn MD, Phone: [phone] Serum or plasma C reactive p rotein measurement (mass/volume)Ordered By: Missy Guzman on 12-12-2022 CRP [Mass/Vol] 8.98 mg/L 0.0-3.0 [facility] Comment on above: C-Reactive Protein ( CRP) provides useful information for thediagnosis, therapy and monitoring of inflammatory processesand associated diseases. For the evaluation of Relative Riskfor Cardiovascular Disease, a High Sensitivity CRP (HSCRP)should be ordered. Serum or plasma calcitriol m easurement (mass/volume)Ordered By: Missy Guzman on 12-12-2022 1,25-dihydroxyvitamin D3 [Mass/Vol] 25.8 pg/mL 24.8-81.5 [facility] Comment on above: Performed at: [address] [id number] Director: Rene Lynn MD, Phone: [phone] Thin prep Papanicolaou smear with manual screeningOrdered By: Missy Guzman on 12-12-2022 Thin prep Papanicolaou smear with manual screening Comment . [facility] Comment on above: QuantiFERON-TB Gold Plus is a qualitative indirect test forM tuberculosis infection (including disease) and isintended for use in conjunction with risk assessment,radiography, and other medical and diagnostic evaluations.The QuantiFERON-TB Gold Plus result is determined bysubtracting the Nil value from either TB antigen (Ag)value. The Mitogen tube serves as a control for the test. Thin prep Papanicolaou smear with manual screening 0.06 IU/mL . [facility] Thin prep Papanicolaou smear with manual screening 0.05 IU/mL . [facility] Thin prep Papanicolaou smear with manual screening > 10.00 IU/mL . [facility] Thin prep Papanicolaou smear with manual screening Negative Negative [facility] Comment on above: No response to M tub erculosis antigens detected.Infection with M tuberculosis is unlikely, but high riskindividuals should be considered for additional testing(ATS/IDSA/CDC Clinical Practice Guidelines, 2017). Thereference range is an Antigen minus Nil result of <0.35IU/mL.The specimen received for QuantiFERON testing was incubatedby the ordering institution. Specific procedures outlinedin our Directory of Services and in the package insert forthe QuantiFERON Gold (In Tube) test must be followed toenable for proper stimulation of cells for the productionof interferon gamma. Chemiluminescence immunoassaymethodology Glucose Glucometer (BldC) [M ass/Vol]Ordered By: Missy Guzman on 11-21-2022 Glucose [Mass/Vol] 313 mg/dL 74-106 [facility] Comment on above: MANAGEMENT OF PATIEN T CARE PER NURSING PROTOCOL AFP TUMOR MARKERon 3 AFP Tumor Marker <2.2 Normal <8.1 [facility] Comment on above: Result Comment: This test was performed on the [employer] Immunoassay platform by [employer] which is a two-site sandwich chemiluminescent immunoassay. It is important to note that assays using different manufacturers and/or methods may not be comparable. Performed By: #### A FPTMR #### [facility] (DEFAULT) [address] [address] ALPHA 1 ANTITRYPSINon 2022 Alpha 1 Antitrypsin 180 mg/dL Normal 84-218 [facility] Comment on above: Performed By: #### Q IMM, A1AT, CERP #### [facility] (DEFAULT) [address] [address] ROSIBEL MULTIPLEX SCREENon 11-03 ROSIBEL Screen, Multiplex Negative Normal Negative [facility] Comment on above: Performed By: #### A ALAINA #### [facility] (DEFAULT) [address] [address] CBC AND ELECTRONIC DIFFon Abs Baso Auto < Normal 0.00-0.09 [facility] Comment on above: Performed By: #### L [id number] #### [facility] (DEFAULT) [address] [address] Basophils/100 WBC (Bld) 0.5 % Normal O [facility] Comment on above: Performed By: #### L [id number] #### [facility] (DEFAULT) [address] [address] DIFF STATUS Electronic Differential Normal [facility] Comment on above: Performed By: #### L [id number] #### [facility] (DEFAULT) [address] [address] Eosinophils (Bld) [#/Vol] 0.14 10*3/uL Normal 0.00-0.48 [facility] Comment on above: Performed By: #### L [id number] #### [facility] (DEFAULT) [address] [address] Eosinophils/100 WBC (Bld) 2.4 % Normal [facility] Comment on above: Performed By: #### L [id number] #### [facility] (DEFAULT) [address] [address] Hematocrit (Bld) [Volume fraction] 43.5 % Normal 39.6-48.8 [facility] Comment on above: Performed By: #### L [id number] #### [facility] (DEFAULT) [address] [address] Hemoglobin (Bld) [Mass/Vol] 15.6 g/dL Normal 13.4-16.8 [facility] Comment on above: Performed By: #### L [id number] #### [facility] (DEFAULT) [address] [address] Immature Grans % 0.3 % Normal [facility] Comment on above: Performed By: #### L [id number] #### [facility] (DEFAULT) [address] [address] Immature Grans Absolute < Normal <=0.07 [facility] Comment on above: Performed By: #### L [id number] #### [facility] (DEFAULT) [address] [address] Lymphocytes (Bld) [#/Vol] 0.93 10*3/uL Normal 0.83-3.57 [facility] Comment on above: Performed By: #### L [id number] #### [facility] (DEFAULT) [address] [place] [address] Lymphocytes/100 WBC (Bld) 16.1 % Normal [facility] Comment on above: Performed By: #### L [id number] #### [facility] (DEFAULT) [address] [place] [address] MCV (RBC) [Entitic vol] 89.3 fL Normal 79.0-94.5 [facility] Comment on above: Performed By: #### L [id number] #### [facility] (DEFAULT) [address] [place] [address] Mean Cell Hgb 32.0 pg Normal 26.1-33.3 [facility] Comment on above: Performed By: #### L [id number] #### [facility] (DEFAULT) [address] [place] [address] Mean Cell Hgb Conc 35.9 g/dL Normal 31.9-36.5 [facility] Comment on above: Performed By: #### L [id number] #### [facility] (DEFAULT) [address] [place] [address] Monocytes (Bld) [#/Vol] 0.39 10*3/uL Normal 0.24-0.93 [facility] Comment on above: Performed By: #### L [id number] #### [facility] (DEFAULT) [address] [place] [address] Monocytes/100 WBC (Bld) 6.8 % Normal O [facility] Comment on above: Performed By: #### L [id number] #### [facility] (DEFAULT) [address] [place] [address] Nucleated RBC 0.0 /100 WBC Normal <=0.2 [facility] Comment on above: Performed By: #### L [id number] #### [facility] (DEFAULT) [address] [place] [address] Platelet mean volume (Bld) [Entitic vol] 9.3 fL Normal 8.7-12.3 [facility] Comment on above: Performed By: #### L [id number] #### [facility] (DEFAULT) [address] [address] Platelets (Bld) [#/Vol] 142 10*3/uL Low 146-337 [facility] Comment on above: Performed By: #### L [id number] #### [facility] (DEFAULT) [address] [address] RBC (Bld) [#/Vol] 4.87 10*6/uL Normal 4.38-5.83 [facility] Comment on above: Performed By: #### L [id number] #### [facility] (DEFAULT) [address] [address] RBC Distribution 14.5 % High 10.9-14.3 [facility] Comment on above: Performed By: #### L [id number] #### [facility] (DEFAULT) [address] [address] Segs + Bands Auto 73.9 % Normal [facility] Comment on above: Performed By: #### L [id number] #### [facility] (DEFAULT) [address] [address] Segs + Bands,Absolute Auto 4.26 K/uL Normal 1.57-6.19 [facility] Comment on above: Performed By: #### L [id number] #### [facility] (DEFAULT) [address] [address] WBC (Bld) [#/Vol] 5.77 10*3/uL Normal 3.73-10.10 [facility] Comment on above: Performed By: #### L [id number] #### [facility] (DEFAULT) [address] [address] CERULOPLASMINon 11-03-2022 Ceruloplasmin 36 mg/dL Normal 20-60 [facility] Comment on above: Performed By: #### Q IMM, A1AT, CERP #### [facility] (DEFAULT) [address] [place] [address] CHEM 6 (LYTES, BUN CREA)on 0 - Anion gap [Moles/Vol] 14 mmol/L Normal 7-17 [facility] Comment on above: Performed By: #### P TI #### [facility] (DEFAULT) [address] [place] [address] Chloride [Moles/Vol] 102 mmol/L Normal 98-108 [facility] Comment on above: Performed By: #### P TI #### [facility] (DEFAULT) [address] [place] [address] CO2 [Moles/Vol] 18 mmol/L Low 21-31 [facility] Comment on above: Performed By: #### P TI #### [facility] (DEFAULT) [address] [place] [address] Creatinine [Mass/Vol] 1.39 mg/dL High 0.70-1.30 [facility] Comment on above: Performed By: #### P TI #### [facility] (DEFAULT) [address] [place] [address] GFR/1.73 sq M.predicted among non-blacks MDRD (S/P/Bld) [Vol rate/Area] 63 mL/min/{1.73_m2} Normal >=60 [facility] Comment on above: Result Comment: Repo rted eGFR is based on the CKD-EPI 2020 equation using creatinine, age, and sex. Performed By: #### P TI #### [facility] (DEFAULT) [address] [place] [address] Potassium [Moles/Vol] 3.9 mmol/L Normal 3.5-5.0 [facility] Comment on above: Performed By: #### P TI #### [facility] (DEFAULT) [address] [place] [address] Sodium [Moles/Vol] 130 mmol/L Low 135-145 [facility] Comment on above: Performed By: #### P TI #### [facility] (DEFAULT) [address] [place] [address] Urea nitrogen [Mass/Vol] 29 mg/dL High 7-25 [facility] Comment on above: Performed By: #### P TI #### [facility] (DEFAULT) [address] [place] [address] Urea nitrogen/Creatinine [Mass ratio] 21 mg/mg Normal [facility] Comment on above: Performed By: #### P TI #### [facility] (DEFAULT) [address] [place] [address] FERRITINon 11-03-2022 Ferritin [Mass/Vol] 62.8 ng/mL Normal 10.5-307.3 [facility] Comment on above: Performed By: #### F ERIB #### [facility] (DEFAULT) [address] [place] [address] HEP A AB, TOTAL (IGG+IGM)on 11-03-2022 Hep A Ab, (IgG+IgM) Positive Abnormal Negative [facility] Comment on above: Performed By: #### P TI #### [facility] (DEFAULT) [address] [place] [address] HEPATIC FUNCTION PANELon Albumin [Mass/Vol] 4.5 g/dL Normal 3.5-5.0 [facility] Comment on above: Performed By: #### H DANIELLE CHM6, IRBC #### [facility] (DEFAULT) [address] [place] [address] ALP [Catalytic activity/Vol] 221 U/L High 32-126 [facility] Comment on above: Performed By: #### H FP, CHM6, IRBC #### [facility] (DEFAULT) [address] [place] [address] ALT [Catalytic activity/Vol] 34 U/L Normal 10-52 [facility] Comment on above: Performed By: #### Cezar SANTOS CHM6, IRBC #### [facility] (DEFAULT) [address] [place] [address] AST [Catalytic activity/Vol] 44 U/L High 10-39 [facility] Comment on above: Performed By: #### Cezar SANTOS CHM6, IRBC #### [facility] (DEFAULT) [address] [place] [address] Bilirubin [Mass/Vol] 1.6 mg/dL High <1.5 [facility] Comment on above: Performed By: #### RAMÓN GUEVARA6, IRBC #### [facility] (DEFAULT) [address] [place] [address] Bilirubin.indirect [Mass/Vol] 0.3 mg/dL High <0.3 [facility] Comment on above: Performed By: #### MEGHNA GUEVARA, IRBC #### [facility] (DEFAULT) [address] [place] [address] Protein [Mass/Vol] 8.2 g/dL Normal 6.4-8.3 [facility] Comment on above: Performed By: #### MEGHNA GUEVARA, IRBC #### [facility] (DEFAULT) [address] [place] [address] HEPATITIS BATTERY, CHRONICon 11-03-2022 Hep B Core Ab,Total (IgG+IgM) Negative Normal Negative [facility] Comment on above: Performed By: #### H EP3B #### [facility] (DEFAULT) [address] [place] [address] Hep B Surface Ab Negative Normal Negative [facility] Comment on above: Performed By: #### H EP3B #### [facility] (DEFAULT) [address] [place] [address] Hepatitis B Surface Ag Negative Normal Negative [facility] Comment on above: Performed By: #### H EP3B #### [facility] (DEFAULT) [address] [place] [address] Hepatitis C Antibody Negative Normal Negative [facility] Comment on above: Performed By: #### H EP3B #### [facility] (DEFAULT) [address] [place] [address] IMMUNOGLOBULINS IGG IGA IGMo n 11-03-2022 IgA [Mass/Vol] 435 mg/dL High 66-433 [facility] Comment on above: Performed By: #### Q IMM, A1AT, CERP #### [facility] (DEFAULT) [address] [place] [address] IgG [Mass/Vol] 1379 mg/dL Normal 600-1714 [facility] Comment on above: Performed By: #### Q IMM, A1AT, CERP #### [facility] (DEFAULT) [address] [place] [address] IgM [Mass/Vol] 146 mg/dL Normal 45-281 [facility] Comment on above: Performed By: #### Q IMM, A1AT, CERP #### [facility] (DEFAULT) [address] [place] [address] IRON/IRON BINDING/TRANSFERRI Non 11-03-2022 Iron [Mass/Vol] 185 ug/dL High 40-174 [facility] Comment on above: Performed By: #### P TI #### [facility] (DEFAULT) [address] [place] [address] Iron Saturation 51 % Normal 20-55 [facility] Comment on above: Performed By: #### P TI #### [facility] (DEFAULT) [address] [place] [address] Total Iron Binding Capacity 363 mcg/dL Normal 250-425 [facility] Comment on above: Performed By: #### P TI #### [facility] (DEFAULT) [address] [place] [address] Transferrin [Mass/Vol] 290 mg/dL Normal 200-400 [facility] Comment on above: Performed By: #### P TI #### [facility] (DEFAULT) [address] [place] [address] PROTIME-INRon 11-03-2022 INR Coag (PPP) [Relative time] 1.0 {INR} Normal 0.9-1.1 [facility] Comment on above: Performed By: #### P TI #### [facility] (DEFAULT) [address] [place] [address] PT Coag (PPP) [Time] 13.5 s Normal 11.9-14.2 [facility] Comment on above: Performed By: #### P TI #### [facility] (DEFAULT) [address] [place] [address] TSHon 11-03-2022 TSH 1.541 uIU/mL Normal 0.550-4.780 [facility] Comment on above: Performed By: #### P TI #### [facility] (DEFAULT) [address] [place] [address] XR CHEST PA AND LATERALon XR CHEST PA AND LATERAL EXAM: XR CHEST P A AND LATERAL, 11/03/2022 16:21 PM CLINICAL INDICATIONS: Chest discomfort and granulomatous changes in the liver eval for saroid RELEVANT CLINICAL HISTORY: R79.89:Abnormal liver function tests 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 FINDINGS: Mild reticular changes in the lungs of unclear etiology. Normal heart size. Normal bones. IMPRESSION: There are some reticular changes throughout the lungs which could be related to mild edema but are of unclear etiology. Given the history, high-resolution CT scanning of the chest could better evaluate for underlying parenchymal disease. Normal [facility] XR Chest PA and Lateralon IMPRESSION: There are some reticular changes throughout the lungs which could be related to mild edema but are of unclear etiology. Given the history, high-resolution CT scanning of the chest could better evaluate for underlying parenchymal disease. 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 FINDINGS: Mild reticular changes in the lungs of unclear etiology. Normal heart size. Normal bones. 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 FINDINGS: Mild reticular changes in the lungs of unclear etiology. Normal heart size. Normal bones. IMPRESSION IMPRESSION: There are some reticular changes throughout the lungs which could be related to mild edema but are of unclear etiology. Given the history, high-resolution CT scanning of the chest could better evaluate for underlying parenchymal disease. [facility] Radiology [facility]narrative[facility] and LateralOrder ed By: Manish Garcia on 11-03-2022 [facility] Work Phone: Basophil percentageon 2022 WBC (Bld) [#/Vol] 3.9 10*3/uL 4.4-11.0 [facility] Bas[facility] 3.0 mg/dL 2.5-4.9 [facility] Bilirubin [Mass/Vol] 0.90 mg/dL 0.20-1.00 [facility] Comment on above: For patients on eltr ombopag therapy, use of Dimension [place] TBIL is not recommended. Chloride [Moles/Vol] 101 mmol/L 98-107 [facility] Cholesterol [Mass/Vol] 156 mg/dL <200 [facility] Comment on above: <200 mg/dL Desirable 200-240 mg/dL Borderline >240 mg/dL High Risk Glucose [Mass/Vol] 316 mg/dL 74-106 [facility] Comment on above: Glucose result great er than or equal to 200 mg/dLsuggests DIABETES MELLITUS per A.D.A. criteria. Potassium [Moles/Vol] 4.0 mmol/L 3.5-5.1 [facility] Protein [Mass/Vol] 8.1 g/dL 6.4-8.2 [facility] Sodium [Moles/Vol] 130 mmol/L 136-145 [facility] Triglyceride [Mass/Vol] 206 mg/dL <199 [facility] Comment on above: The drugs N-Acetylcy steine and Metamizole may falsely depress this assay.Serum Triglycerides Reference Interval Normal <150 mg/dL Borderline high 150 - 199 mg/dL High 200 - 499 mg/dL Very High > or = 500 mg/dL Blood erythrocytes count (nu mber/volume)on 09-29-2022 RBC (Bld) [#/Vol] 4.71 10*6/uL 4.6-6.2 [facility] Blood hemoglobin measurement (mass/volume)on 09-29-2022 Hemoglobin (Bld) [Mass/Vol] 15.4 g/dL 13.0-16.5 [facility] Blood platelet mean volumeon 09-29-2022 Platelet mean volume (Bld) [Entitic vol] 8.8 fL 6.2-12.0 [facility] Determination of erythrocyte mean corpuscular volume (MCV)on 09-29-2022 MCV (RBC) [Entitic vol] 91.3 fL 80-94 [facility] Hematocrit Auto (Bld) [Volum e fraction]on 09-29-2022 Hematocrit (Bld) [Volume fraction] 43.0 % 40-54 [facility] Laboratory - Chemistry and C hemistry - challengeon 09-29-2022 ALP [Catalytic activity/Vol] 274 U/L 45-117 [facility] ALT [Catalytic activity/Vol] 57 U/L 16-61 [facility] CO2 [Moles/Vol] 21.0 mmol/L 21.0-32.0 [facility] Globulin (S) [Mass/Vol] 4.5 g/dL 2.2-4.2 [facility] Urea nitrogen/Creatinine [Mass ratio] 17.5 mg/mg - [facility] - Hematology and Cell countson 09-29-2022 Erythrocyte distribution width (RBC) [Entitic vol] 49.6 fL 35.1-43.9 [facility] Erythrocyte distribution width (RBC) [Ratio] 15.1 % 11.6-14.6 [facility] MCH (RBC) [Entitic mass] 32.7 pg 27.0-32.0 [facility] MCHC Auto (RBC) [Mass/Vol]on 09-29-2022 MCHC (RBC) [Mass/Vol] 35.8 g/dL 32-36 [facility] No Panel Informationon 09-29 Estimated GFR (MDRD) Amer 57 mL/min >60 [facility] Comment on above: GFR Calc Estimated GFR (MDRD) Non-Af Amer 47 mL/min >60 [facility] Comment on above: Non- GFR Calc Parathyroid Hormone (Intact) 50.1 pg/mL 18.4-80.1 [facility] Vitamin D 25-Hydroxy 31.8 ng/mL [facility] Comment on above: Vitamin D 25(OH) Sta tus Range Deficiency <20 ng/mL (50nmol/L) Insufficiency 20 - 30 ng/mL (50 - 75 nmol/L) Sufficiency 30 - 100 ng/mL (75 - 250 nmol/L) Toxicity >100 ng/mL (>250 nmol/L) Platelets bldon 09-29-2022 Platelets (Bld) [#/Vol] 122 10*3/uL 150-450 [facility] Serum or plasma albumin camacho urement (mass/volume)on 09-29-2022 Albumin [Mass/Vol] 3.6 g/dL 3.2-5.0 [facility] Serum or plasma albumin/glob ulin mass ratioon 09-29-2022 Albumin/Globulin [Mass ratio] 0.8 {ratio} 0.9-2.4 [facility] Serum or plasma bone alkalin e phosphatase/total alkaline phosphatase ratio (catalyticon 09-29-2022 ALP Bone [Catalytic fraction] 18 % 12-68 [facility] Serum or plasma calcium camacho urement (mass/volume)on 09-29-2022 Calcium [Mass/Vol] 9.0 mg/dL 8.5-10.1 [facility] Serum or plasma cholesterol in HDL measurement (mass/volume)on 09-29-2022 Cholesterol in HDL [Mass/Vol] 37 mg/dL >40 [facility] Comment on above: The drugs N-Acetylcy steine and Metamizole may falsely depress this assay. Reference Range HDL <40 mg/dL Low HDL Cholesterol HDL >or= 60 mg/dL High HDL Cholesterol Serum or plasma cholesterol in VLDL measurement (mass/volume)on 09-29-2022 Cholesterol in VLDL [Mass/Vol] 41 mg/dL 5-40 [facility] Serum or plasma creatinine m easurement (mass/volume)on 09-29-2022 Creatinine [Mass/Vol] 1.66 mg/dL 0.70-1.30 [facility] Comment on above: The validity of the calculated GFR & GFRAA in patients over 70 years has not been determined. Clinical correlation is essential. Serum or plasma intestinal a lkaline phosphatase/total alkaline phosphatase ratio (dustin 09-29-2022 ALP Intest [Catalytic fraction] 28 % 0-18 [facility] Comment on above: Intestinal alkaline phosphatase is seennormally in the serum of subjects whohave B or O blood types, especiallyafter a fatty meal. Pathologically theband may be present in perforation ofthe bowel, ulcerative disease of theintestine and faintly in livercirrhosis. Acute infarction of theintestine will cause a release ofintestinal ALP from the mucosa. Largeerosive or ulcerative lesions of thestomach, duodenum or other smallintestinal areas, or colon may resultin an elevation of the serum ALP level.The small intestinal lesions associatedwith malabsorption are associated withan elevation of the serum intestinalALP level only if there is an erosiveor ulcerative mucosal lesion.Performed at: [facility] [id number] Director: Chidi Roger PhD, Phone: [phone] Serum or plasma liver alkali ne phosphatase/total alkaline phosphatase ratio (catalytion 09-29-2022 ALP Liver [Catalytic fraction] 53 % 13-88 [facility] Serum or plasma low density lipoprotein (LDL) cholesterol measurement (mass/volume)on 09-29-2022 Cholesterol in LDL [Mass/Vol] 78 mg/dL 0-130 [facility] Serum or plasma urea nitroge n measurement (mass/volume)on 09-29-2022 Urea nitrogen [Mass/Vol] 29 mg/dL 7-18 [facility] Thin prep Papanicolaou smear with manual screeningon 09-29-2022 Thin prep Papanicolaou smear with manual screening 262 IU/L 44-121 [facility] Thin prep Papanicolaou smear with manual screening 68 U/L 15-37 [facility] Thin prep Papanicolaou smear with manual screening 8 5-15 [facility] Urine creatinine measurement (mass/volume)on 09-29-2022 Creatinine (U) [Mass/Vol] 43.50 mg/dL NO RANGE EST. [facility] Urine protein measurement (m ass/volume)on 09-29-2022 Protein (U) [Mass/Vol] 57.3 mg/dL 0.0-11.8 [facility] Urine protein/creatinine mas s ratioon 09-29-2022 Protein/Creatinine (U) [Mass ratio] 1317 mg/g CRE 0-200 [facility] Laboratory - Hematology and Cell countson 09-22-2022 HbA1c (Bld) [Mass fraction] 8.0 % 4.2-6.3 [facility] Absolute lymphocyte countOrd ered By: Missy Guzman on 09-19-2022 Lymphocytes Auto (Unsp spec) [#/Vol] 0.99 10*3/uL 0.83-4.51 [facility] Basophil percentageOrdered B y: Missy Guzman on 09-19-2022 Ammonia (P) [Moles/Vol] 29.0 umol/L 11-32 [facility] Basophils/100 WBC (Bld) 0.7 % 0-1 [facility] Bilirubin [Mass/Vol] 1.00 mg/dL 0.20-1.00 [facility] Comment on above: For patients on eltr ombopag therapy, use of Dimension [place] TBIL is not recommended. Chloride [Moles/Vol] 104 mmol/L 98-107 [facility] Eosinophils/100 WBC (Bld) 2.7 % 0-5 [facility] Glucose [Mass/Vol] 288 mg/dL 74-106 [facility] Comment on above: Glucose result great er than or equal to 200 mg/dLsuggests DIABETES MELLITUS per A.D.A. criteria. LDH [Catalytic activity/Vol] 299 U/L 87-241 [facility] Neutrophils (Bld) [#/Vol] 2.6 10*3/uL 2.0-7.7 [facility] Neutrophils/100 WBC (Bld) 63.9 % 47-70 [facility] Potassium [Moles/Vol] 4.0 mmol/L 3.5-5.1 [facility] Protein [Mass/Vol] 7.8 g/dL 6.4-8.2 [facility] Sodium [Moles/Vol] 132 mmol/L 136-145 [facility] WBC (Bld) [#/Vol] 4.1 10*3/uL 4.4-11.0 [facility] Blood erythrocytes count (nu mber/volume)Ordered By: Missy Guzman on 09-19-2022 RBC (Bld) [#/Vol] 4.43 10*6/uL 4.6-6.2 [facility] Blood hemoglobin measurement (mass/volume)Ordered By: Missy Guzman on 09-19-2022 Hemoglobin (Bld) [Mass/Vol] 14.4 g/dL 13.0-16.5 [facility] Blood lymphocytes/100 leukoc ytesOrdered By: Missy Guzman on 09-19-2022 Lymphocytes/100 WBC (Bld) 24.0 % 19-41 [facility] Blood monocytes/100 leukocyt esOrdered By: Missy Guzman on 09-19-2022 Monocytes/100 WBC (Bld) 8.5 % 0-10 [facility] Blood platelet mean volumeOr dered By: Missy Guzman on 09-19-2022 Platelet mean volume (Bld) [Entitic vol] 9.0 fL 6.2-12.0 [facility] Determination of erythrocyte mean corpuscular volume (MCV)Ordered By: Missy Guzman on 09-19-2022 MCV (RBC) [Entitic vol] 91.9 fL 80-94 [facility] Erythrocyte sedimentation ra teOrdered By: Missy Guzman on 09-19-2022 ESR (Bld) [Velocity] 30 mm/h 0-20 [facility] Gram stain for investigation of transfusion reactionOrdered By: Ayana Mann on 09-19-2022 Microscopic observation Gram stain Nom (Unsp spec) [facility] Hematocrit Auto (Bld) [Volum e fraction]Ordered By: Missy Guzman on 09-19-2022 Hematocrit (Bld) [Volume fraction] 40.7 % 40-54 [facility] INR in Blood by Coagulation assayOrdered By: Missy Guzman on 09-19-2022 INR Coag (Bld) [Relative time] 1.1 {INR} [facility] - Chemistry and C hemistry - challengeOrdered By: Missy Guzman on 09-19-2022 ALP [Catalytic activity/Vol] 262 U/L 45-117 [facility] ALT [Catalytic activity/Vol] 48 U/L 16-61 [facility] CO2 [Moles/Vol] 21.0 mmol/L 21.0-32.0 [facility] Globulin (S) [Mass/Vol] 4.3 g/dL 2.2-4.2 [facility] Urea nitrogen/Creatinine [Mass ratio] 12.8 mg/mg 10-20 [facility] - CoagulationOrde red By: Missy Guzman on 09-19-2022 PT Coag (PPP) [Time] 13.7 s 11.7-14.9 [facility] - Hematology and Cell countsOrdered By: Missy Guzman on 09-19-2022 Erythrocyte distribution width (RBC) [Entitic vol] 47.8 fL 35.1-43.9 [facility] Erythrocyte distribution width (RBC) [Ratio] 14.4 % 11.6-14.6 [facility] Immature granulocytes/100 WBC (Bld) 0.200 % 0.0-0.9 [facility] Comment on above: IG% - Immature Granu locytes (promyelocytes, myelocytes and metamyelocytes) > 1% indicates that a LEFT SHIFT is Present. MCH (RBC) [Entitic mass] 32.5 pg 27.0-32.0 [facility] Nucleated RBC/100 WBC (Bld) [Ratio] 0 [facility] ([facility] [Mass/Vol]Or dered By: Missy Guzman on 09-19-2022 MCHC (RBC) [Mass/Vol] 35.4 g/dL 32-36 [facility] Microbial respiratory cultur eOrdered By: Ayana Mann on 09-19-2022 Bacteria identified Respiratory culture Nom (Unsp spec) or Staphylococcus aureus isolated. [facility] No Panel InformationOrdered By: Missy Guzman on 09-19-2022 Estimated GFR (MDRD) Amer 52 mL/min >60 [facility] Comment on above: GFR Calc Estimated GFR (MDRD) Non-Af Amer 43 mL/min >60 [facility] Comment on above: Non- GFR Calc Platelets bldOrdered By: Lenin Guzman on 09-19-2022 Platelets (Bld) [#/Vol] 123 10*3/uL 150-450 [facility] Serum or plasma C reactive p rotein measurement (mass/volume)Ordered By: Missy Guzman on 09-19-2022 CRP [Mass/Vol] 11.10 mg/L 0.0-3.0 [facility] Comment on above: C-Reactive Protein ( CRP) provides useful information for thediagnosis, therapy and monitoring of inflammatory processesand associated diseases. For the evaluation of Relative Riskfor Cardiovascular Disease, a High Sensitivity CRP (HSCRP)should be ordered. Serum or plasma albumin camacho urement (mass/volume)Ordered By: Missy Guzman on 09-19-2022 Albumin [Mass/Vol] 3.5 g/dL 3.2-5.0 [facility] Serum or plasma albumin/glob ulin mass ratioOrdered By: Missy Guzman on 09-19-2022 Albumin/Globulin [Mass ratio] 0.8 {ratio} 0.9-2.4 [facility] Serum or plasma calcium camacho urement (mass/volume)Ordered By: Missy Guzman on 09-19-2022 Calcium [Mass/Vol] 8.6 mg/dL 8.5-10.1 [facility] Serum or plasma creatinine m easurement (mass/volume)Ordered By: Missy Guzman on 09-19-2022 Creatinine [Mass/Vol] 1.80 mg/dL 0.70-1.30 [facility] Comment on above: The validity of the calculated GFR & GFRAA in patients over 70 years has not been determined. Clinical correlation is essential. Serum or plasma urea nitroge n measurement (mass/volume)Ordered By: Missy Guzman on 09-19-2022 Urea nitrogen [Mass/Vol] 23 mg/dL 7-18 [facility] Thin prep Papanicolaou smear with manual screeningOrdered By: Missy Guzman on 09-19-2022 Thin prep Papanicolaou smear with manual screening 66 U/L 15-37 [facility] Thin prep Papanicolaou smear with manual screening 7 5-15 [facility] Glucose Glucometer (BldC) [M ass/Vol]Ordered By: Missy Guzman on 07-19-2022 Glucose [Mass/Vol] 315 mg/dL 74-106 [facility] Comment on above: MANAGEMENT OF PATIEN T CARE PER NURSING PROTOCOL Basophil percentageon 2022 Basophil percentage 3.6 mg/dL 2.5-4.9 [facility] Chloride [Moles/Vol] 101 mmol/L 98-107 [facility] Glucose [Mass/Vol] 301 mg/dL 74-106 [facility] Comment on above: Glucose result great er than or equal to 200 mg/dLsuggests DIABETES MELLITUS per A.D.A. criteria. Potassium [Moles/Vol] 4.1 mmol/L 3.5-5.1 [facility] Sodium [Moles/Vol] 132 mmol/L 136-145 [facility] WBC (Bld) [#/Vol] 4.9 10*3/uL 4.4-11.0 [facility] Blood erythrocytes count (nu mber/volume)on 03-31-2022 RBC (Bld) [#/Vol] 4.35 10*6/uL 4.6-6.2 [facility] Blood hemoglobin measurement (mass/volume)on 03-31-2022 Hemoglobin (Bld) [Mass/Vol] 14.7 g/dL 13.0-16.5 [facility] Blood platelet mean volumeon 03-31-2022 Platelet mean volume (Bld) [Entitic vol] 8.4 fL 6.2-12.0 [facility] Determination of erythrocyte mean corpuscular volume (MCV)on 03-31-2022 MCV (RBC) [Entitic vol] 94.3 fL 80-94 [facility] Hematocrit Auto (Bld) [Volum e fraction]on 03-31-2022 Hematocrit (Bld) [Volume fraction] 41.0 % 40-54 [facility] - Chemistry and C hemistry - challengeon 03-31-2022 CO2 [Moles/Vol] 25.0 mmol/L 21.0-32.0 [facility] Urea nitrogen/Creatinine [Mass ratio] 13.5 mg/mg 10-20 [facility] - Hematology and Cell countson 03-31-2022 Erythrocyte distribution width (RBC) [Entitic vol] 50.5 fL 35.1-43.9 [facility] Erythrocyte distribution width (RBC) [Ratio] 14.7 % 11.6-14.6 [facility] MCH (RBC) [Entitic mass] 33.8 pg 27.0-32.0 [facility] MCHC Auto (RBC) [Mass/Vol]on 03-31-2022 MCHC (RBC) [Mass/Vol] 35.9 g/dL 32-36 [facility] No Panel Informationon 03-31 Estimated GFR (MDRD) Amer 48 mL/min >60 [facility] Comment on above: GFR Calc Estimated GFR (MDRD) Non-Af Amer 40 mL/min >60 [facility] Comment on above: Non- GFR Calc Parathyroid Hormone (Intact) 23.6 pg/mL 18.4-80.1 [facility] Vitamin D 25-Hydroxy 30.9 ng/mL [facility] Comment on above: Vitamin D 25(OH) Sta tus Range Deficiency <20 ng/mL (50nmol/L) Insufficiency 20 - 30 ng/mL (50 - 75 nmol/L) Sufficiency 30 - 100 ng/mL (75 - 250 nmol/L) Toxicity >100 ng/mL (>250 nmol/L) Platelets bldon 03-31-2022 Platelets (Bld) [#/Vol] 122 10*3/uL 150-450 [facility] Serum or plasma albumin camacho urement (mass/volume)on 03-31-2022 Albumin [Mass/Vol] 3.8 g/dL 3.2-5.0 [facility] Serum or plasma calcium camacho urement (mass/volume)on 03-31-2022 Calcium [Mass/Vol] 9.5 mg/dL 8.5-10.1 [facility] Serum or plasma creatinine m easurement (mass/volume)on 03-31-2022 Creatinine [Mass/Vol] 1.92 mg/dL 0.70-1.30 [facility] Comment on above: The validity of the calculated GFR & GFRAA in patients over 70 years has not been determined. Clinical correlation is essential. Serum or plasma urea nitroge n measurement (mass/volume)on 03-31-2022 Urea nitrogen [Mass/Vol] 26 mg/dL 7-18 [facility] Urine creatinine measurement (mass/volume)on 03-31-2022 Creatinine (U) [Mass/Vol] 115.00 mg/dL NO RANGE EST. [facility] Urine protein measurement (m ass/volume)on 03-31-2022 Protein (U) [Mass/Vol] 85.6 mg/dL 0.0-11.8 [facility] Urine protein/creatinine mas s ratioon 03-31-2022 Protein/Creatinine (U) [Mass ratio] 744 mg/g CRE 0-200 [facility] No Panel InformationOrdered By: Missy Guzman on 03-26-2022 Immunoglobulin G4 8 mg/dL 2-96 [facility] Comment on above: Performed at: [address] [id number] Director: Chidi Roger PhD, Phone: [phone] Qualitative QuantiFERON-TB g old in tube testOrdered By: Missy Guzman on 03-26-2022 M. tuberculosis tuberculin stim IFN-g Ql (Bld) 0.06 IU/mL . [facility] Serum IgG subclass 1 measure ment (mass/volume)Ordered By: Missy Guzman on 03-26-2022 IgG subclass 1 (S) [Mass/Vol] 712 mg/dL 248-810 [facility] Serum IgG subclass 2 measure ment (mass/volume)Ordered By: Missy Guzman on 03-26-2022 IgG subclass 2 (S) [Mass/Vol] 493 mg/dL 130-555 [facility] Serum IgG subclass 3 measure ment (mass/volume)Ordered By: Missy Guzman on 03-26-2022 IgG subclass 3 (S) [Mass/Vol] 201 mg/dL 15-102 [facility] Serum or plasma IgG measurem ent (mass/volume)Ordered By: Missy Guzman on 03-26-2022 IgG [Mass/Vol] 1351 mg/dL 603-1613 [facility] Thin prep Papanicolaou smear with manual screeningOrdered By: Missy Guzman on 03-26-2022 Thin prep Papanicolaou smear with manual screening Comment . [facility] Comment on above: QuantiFERON-TB Gold Plus is a qualitative indirect test forM tuberculosis infection (including disease) and isintended for use in conjunction with risk assessment,radiography, and other medical and diagnostic evaluations.The QuantiFERON-TB Gold Plus result is determined bysubtracting the Nil value from either TB antigen (Ag)value. The Mitogen tube serves as a control for the test. Thin prep Papanicolaou smear with manual screening 0.08 IU/mL . [facility] Thin prep Papanicolaou smear with manual screening 0.07 IU/mL . [facility] Thin prep Papanicolaou smear with manual screening > 10.00 IU/mL . [facility] Thin prep Papanicolaou smear with manual screening Negative Negative [facility] Comment on above: No response to M tub erculosis antigens detected.Infection with M tuberculosis is unlikely, but high riskindividuals should be considered for additional testing(ATS/IDSA/CDC Clinical Practice Guidelines, 2017). Thereference range is an Antigen minus Nil result of <0.35IU/mL.The specimen received for QuantiFERON testing was incubatedby the ordering institution. Specific procedures outlinedin our Directory of Services and in the package insert forthe QuantiFERON Gold (In Tube) test must be followed toenable for proper stimulation of cells for the productionof interferon gamma. Chemiluminescence immunoassaymethodology Laboratory - Hematology and Cell countson 03-24-2022 HbA1c (Bld) [Mass fraction] 7.2 % [facility] INR in Blood by Coagulation assayOrdered By: Missy Guzman on 03-16-2022 INR Coag (Bld) [Relative time] 1.1 {INR} [facility] Laboratory - CoagulationOrde red By: Missy Guzman on 03-16-2022 aPTT Coag (Bld) [Time] 30.5 s 24.1-36.2 [facility] PT Coag (PPP) [Time] 14.3 s 11.7-14.9 [facility] Platelets bldOrdered By: Lenin Guzman on 03-16-2022 Platelets (Bld) [#/Vol] 129 10*3/uL 150-450 [facility] Basophil percentageOrdered B y: Dr. Faustin on 02-28-2022 Bilirubin [Mass/Vol] 1.60 mg/dL 0.20-1.00 [facility] Comment on above: For patients on eltr ombopag therapy, use of Dimension [place] TBIL is not recommended. Chloride [Moles/Vol] 100 mmol/L 98-107 [facility] Glucose [Mass/Vol] 235 mg/dL 74-106 [facility] Comment on above: Glucose result great er than or equal to 200 mg/dLsuggests DIABETES MELLITUS per A.D.A. criteria. Potassium [Moles/Vol] 4.7 mmol/L 3.5-5.1 [facility] Protein [Mass/Vol] 8.0 g/dL 6.4-8.2 [facility] Sodium [Moles/Vol] 131 mmol/L 136-145 [facility] Laboratory - Chemistry and C hemistry - challengeOrdered By: Dr. Faustin on 02-28-2022 ALP [Catalytic activity/Vol] 172 U/L 45-117 [facility] ALT [Catalytic activity/Vol] 35 U/L 16-61 [facility] CO2 [Moles/Vol] 26.0 mmol/L 21.0-32.0 [facility] Globulin (S) [Mass/Vol] 4.3 g/dL 2.2-4.2 [facility] Urea nitrogen/Creatinine [Mass ratio] 13.1 mg/mg 10-20 [facility] No Panel InformationOrdered By: Dr. Faustin on 02-28-2022 Estimated GFR (MDRD) Amer 41 mL/min >60 [facility] Comment on above: GFR Calc Estimated GFR (MDRD) Non-Af Amer 34 mL/min >60 [facility] Comment on above: Non- GFR Calc Parathyroid Hormone (Intact) 19.5 pg/mL 18.4-80.1 [facility] Thyroid Stimulating Hormone (TSH) 2.62 uIU/mL 0.358-3.74 [facility] Vitamin D 25-Hydroxy 41.0 ng/mL [facility] Comment on above: Vitamin D 25(OH) Sta tus Range Deficiency <20 ng/mL (50nmol/L) Insufficiency 20 - 30 ng/mL (50 - 75 nmol/L) Sufficiency 30 - 100 ng/mL (75 - 250 nmol/L) Toxicity >100 ng/mL (>250 nmol/L) Serum or plasma albumin camacho urement (mass/volume)Ordered By: Dr. Faustin on 02-28-2022 Albumin [Mass/Vol] 3.7 g/dL 3.2-5.0 [facility] Serum or plasma albumin/glob ulin mass ratioOrdered By: Dr. Faustin on 02-28-2022 Albumin/Globulin [Mass ratio] 0.9 {ratio} 0.9-2.4 [facility] Serum or plasma calcium camacho urement (mass/volume)Ordered By: Dr. Faustin on 02-28-2022 Calcium [Mass/Vol] 9.8 mg/dL 8.5-10.1 [facility] Serum or plasma creatinine m easurement (mass/volume)Ordered By: Dr. Faustin on 02-28-2022 Creatinine [Mass/Vol] 2.21 mg/dL 0.70-1.30 [facility] Comment on above: The validity of the calculated GFR & GFRAA in patients over 70 years has not been determined. Clinical correlation is essential. Serum or plasma urea nitroge n measurement (mass/volume)Ordered By: Dr. Faustin on 02-28-2022 Urea nitrogen [Mass/Vol] 29 mg/dL 7-18 [facility] Thin prep Papanicolaou smear with manual screeningOrdered By: Dr. Faustin on 02-28-2022 Thin prep Papanicolaou smear with manual screening 53 U/L 15-37 [facility] Thin prep Papanicolaou smear with manual screening 5 5-15 [facility] Absolute lymphocyte countOrd ered By: Missy Duke on 02-23-2022 Lymphocytes Auto (Unsp spec) [#/Vol] 0.67 10*3/uL 0.83-4.51 [facility] Basophil percentageOrdered B y: Missyjocelin Guzman on 02-23-2022 Basophils/100 WBC (Bld) 0.7 % 0-1 [facility] Bilirubin [Mass/Vol] 1.10 mg/dL 0.20-1.00 [facility] Comment on above: For patients on eltr ombopag therapy, use of Dimension [place] TBIL is not recommended. Chloride [Moles/Vol] 102 mmol/L 98-107 [facility] Eosinophils/100 WBC (Bld) 3.0 % 0-5 [facility] Glucose [Mass/Vol] 388 mg/dL 74-106 [facility] Comment on above: Glucose result great er than or equal to 200 mg/dLsuggests DIABETES MELLITUS per A.D.A. criteria. Neutrophils (Bld) [#/Vol] 3.1 10*3/uL 2.0-7.7 [facility] Neutrophils/100 WBC (Bld) 71.1 % 47-70 [facility] Potassium [Moles/Vol] 4.0 mmol/L 3.5-5.1 [facility] Protein [Mass/Vol] 7.8 g/dL 6.4-8.2 [facility] Sodium [Moles/Vol] 131 mmol/L 136-145 [facility] WBC (Bld) [#/Vol] 4.3 10*3/uL 4.4-11.0 [facility] Blood erythrocytes count (nu mber/volume)Ordered By: Missyjocelin Guzman on 02-23-2022 RBC (Bld) [#/Vol] 4.36 10*6/uL 4.6-6.2 [facility] Blood hemoglobin measurement (mass/volume)Ordered By: Missy Guzman on 02-23-2022 Hemoglobin (Bld) [Mass/Vol] 14.6 g/dL 13.0-16.5 [facility] Blood lymphocytes/100 leukoc ytesOrdered By: Missy Guzman on 02-23-2022 Lymphocytes/100 WBC (Bld) 15.6 % 19-41 [facility] Blood monocytes/100 leukocyt esOrdered By: Missy Guzman on 02-23-2022 Monocytes/100 WBC (Bld) 9.1 % 0-10 [facility] Blood platelet mean volumeOr dered By: Missy Guzman on 02-23-2022 Platelet mean volume (Bld) [Entitic vol] 9.6 fL 6.2-12.0 [facility] Determination of erythrocyte mean corpuscular volume (MCV)Ordered By: Missy Guzman on 02-23-2022 MCV (RBC) [Entitic vol] 95.0 fL 80-94 [facility] Erythrocyte sedimentation ra teOrdered By: Missy Guzman on 02-23-2022 ESR (Bld) [Velocity] 28 mm/h 0-20 [facility] Hematocrit Auto (Bld) [Volum e fraction]Ordered By: Missy Guzman on 02-23-2022 Hematocrit (Bld) [Volume fraction] 41.4 % 40-54 [facility] INR in Blood by Coagulation assayOrdered By: Missy Guzman on 02-23-2022 INR Coag (Bld) [Relative time] 1.1 {INR} [facility] Laboratory - Chemistry and C hemistry - challengeOrdered By: Missy Guzman on 02-23-2022 ALP [Catalytic activity/Vol] 222 U/L 45-117 [facility] ALT [Catalytic activity/Vol] 41 U/L 16-61 [facility] CO2 [Moles/Vol] 25.0 mmol/L 21.0-32.0 [facility] Globulin (S) [Mass/Vol] 4.1 g/dL 2.2-4.2 [facility] Urea nitrogen/Creatinine [Mass ratio] 12.1 mg/mg 10-20 [facility] Laboratory - CoagulationOrde red By: Missy Guzman on 02-23-2022 PT Coag (PPP) [Time] 13.4 s 11.7-14.9 [facility] Laboratory - Hematology and Cell countsOrdered By: Missy Guzman on 02-23-2022 Erythrocyte distribution width (RBC) [Entitic vol] 51.7 fL 35.1-43.9 [facility] Erythrocyte distribution width (RBC) [Ratio] 15.3 % 11.6-14.6 [facility] Immature granulocytes/100 WBC (Bld) 0.500 % 0.0-0.9 [facility] Comment on above: IG% - Immature Granu locytes (promyelocytes, myelocytes and metamyelocytes) > 1% indicates that a LEFT SHIFT is Present. MCH (RBC) [Entitic mass] 33.5 pg 27.0-32.0 [facility] Nucleated RBC/100 WBC (Bld) [Ratio] 0 % 0-5 [facility] MCHC Auto (RBC) [Mass/Vol]Or dered By: Missy Guzman on 02-23-2022 MCHC (RBC) [Mass/Vol] 35.3 g/dL 32-36 [facility] No Panel InformationOrdered By: Missy Guzman on 02-23-2022 Estimated GFR (MDRD) Amer 44 mL/min >60 [facility] Comment on above: GFR Calc Estimated GFR (MDRD) Non-Af Amer 37 mL/min >60 [facility] Comment on above: Non- GFR Calc Haptoglobin < 10 mg/dL 23-355 [facility] Comment on above: Performed at: - [address] [id number] Director: Rene Lynn MD, Phone: [phone] at: - [facility] [id number] Director: Chidi Roger PhD, Phone: [phone] Platelets bldOrdered By: Lenin Guzman on 02-23-2022 Platelets (Bld) [#/Vol] 133 10*3/uL 150-450 [facility] Serum or plasma C reactive p rotein measurement (mass/volume)Ordered By: Missy Guzman on 02-23-2022 CRP [Mass/Vol] 12.50 mg/L 0.0-3.0 [facility] Comment on above: C-Reactive Protein ( CRP) provides useful information for thediagnosis, therapy and monitoring of inflammatory processesand associated diseases. For the evaluation of Relative Riskfor Cardiovascular Disease, a High Sensitivity CRP (HSCRP)should be ordered. Serum or plasma albumin camacho urement (mass/volume)Ordered By: Missy Guzman on 02-23-2022 Albumin [Mass/Vol] 3.7 g/dL 3.2-5.0 [facility] Serum or plasma albumin/glob ulin mass ratioOrdered By: Missy Guzman on 02-23-2022 Albumin/Globulin [Mass ratio] 0.9 {ratio} 0.9-2.4 [facility] Serum or plasma calcium camacho urement (mass/volume)Ordered By: Missy Guzman on 02-23-2022 Calcium [Mass/Vol] 11.0 mg/dL 8.5-10.1 [facility] Serum or plasma creatinine m easurement (mass/volume)Ordered By: Missy Guzman on 02-23-2022 Creatinine [Mass/Vol] 2.07 mg/dL 0.70-1.30 [facility] Comment on above: The validity of the calculated GFR & GFRAA in patients over 70 years has not been determined. Clinical correlation is essential. Serum or plasma urea nitroge n measurement (mass/volume)Ordered By: Missy Guzman on 02-23-2022 Urea nitrogen [Mass/Vol] 25 mg/dL 7-18 [facility] Thin prep Papanicolaou smear with manual screeningOrdered By: Missy Guzman on 02-23-2022 Thin prep Papanicolaou smear with manual screening 53 U/L 15-37 [facility] Thin prep Papanicolaou smear with manual screening 4 5-15 [facility] Thin prep Papanicolaou smear with manual screening 274 U/L 87-241 [facility] Thin prep Papanicolaou smear with manual screening 137 ug/dL 69-132 [facility] Comment on above: Detection Limit = 5 Laboratory - Chemistry and C hemistry - challengeOrdered By: Emy Lee on 12-20-2021 Free T4 [Mass/Vol] 1.40 ng/dL 0.76-1.46 [facility] Laboratory - Hematology and Cell countson 12-20-2021 HbA1c (Bld) [Mass fraction] 7.8 % [facility] No Panel InformationOrdered By: Emy Lee on 12-20-2021 Thyroid Stimulating Hormone (TSH) 1.55 uIU/mL 0.358-3.74 [facility] Laboratory - Hematology and Cell countson 09-23-2021 HbA1c (Bld) [Mass fraction] 8.4 % [facility] Work Phone: Absolute lymphocyte counton 09-09-2021 Lymphocytes Auto (Unsp spec) [#/Vol] 1.30 10*3/uL 0.83-4.51 [facility] Work Phone: Atypical perinuclear antineu trophil cytoplasmic antibodies measurementon 09-09-2021 Neutrophil cytoplasmic Ab.perinuclear.atypical IF (S) [Titer] <1:20 titer Neg:<1:20 [facility] Work Phone: Comment on above: The atypical pANCA p attern has been observed in asignificant percentage of patients with ulcerative colitis,primary sclerosing cholangitis and autoimmune hepatitis. Basophil percentageon 2021 Ammonia (P) [Moles/Vol] 28.0 umol/L 11-32 [facility] Work Phone: Basophil percentage < 0.2 AI 0.0-0.9 [facility] Work Phone: Basophils/100 WBC (Bld) 0.5 % 0-1 [facility] Work Phone: [phone] Bilirubin [Mass/Vol] 1.30 mg/dL 0.20-1.00 [facility] Work Phone: Comment on above: For patients on eltr ombopag therapy, use of Dimension [place] TBIL is not recommended. Chloride [Moles/Vol] 104 mmol/L 98-107 [facility] Work Phone: Eosinophils/100 WBC (Bld) 2.6 % 0-5 [facility] Work Phone: Glucose [Mass/Vol] 192 mg/dL 74-106 [facility] Work Phone: Comment on above: Fasting Glucose resu lt greater than or equal to 126 mg/dL suggests DIABETES MELLITUS per A.D.A. criteria. Neutrophils (Bld) [#/Vol] 4.5 10*3/uL 2.0-7.7 [facility] Work Phone: Neutrophils/100 WBC (Bld) 69.3 % 47-70 [facility] Work Phone: Potassium [Moles/Vol] 4.0 mmol/L 3.5-5.1 [facility] Work Phone: Protein [Mass/Vol] 7.9 g/dL 6.4-8.2 [facility] Work Phone: [phone] Sodium [Moles/Vol] 132 mmol/L 136-145 [facility] Work Phone: [phone] WBC (Bld) [#/Vol] 6.5 10*3/uL 4.4-11.0 [facility] Work Phone: Blood erythrocytes count (nu mber/volume)on 09-09-2021 RBC (Bld) [#/Vol] 4.93 10*6/uL 4.6-6.2 [facility] Work Phone: Blood hemoglobin measurement (mass/volume)on 09-09-2021 Hemoglobin (Bld) [Mass/Vol] 15.8 g/dL 13.0-16.5 [facility] Work Phone: [phone] Blood lymphocytes/100 leukoc yteson 09-09-2021 Lymphocytes/100 WBC (Bld) 20.1 % 19-41 [facility] Work Phone: Blood monocytes/100 leukocyt eson 09-09-2021 Monocytes/100 WBC (Bld) 7.0 % 0-10 [facility] Work Phone: Blood platelet mean volumeon 09-09-2021 Platelet mean volume (Bld) [Entitic vol] 8.8 fL 6.2-12.0 [facility] Work Phone: Determination of erythrocyte mean corpuscular volume (MCV)on 09-09-2021 MCV (RBC) [Entitic vol] 90.3 fL 80-94 [facility] Work Phone: Erythrocyte sedimentation ra anita 09-09-2021 ESR (Bld) [Velocity] 25 mm/h 0-20 [facility] Work Phone: HIV 1 and HIV-2 antibody ass ay with HIV-1 p24 antigen detectionon 09-09-2021 HIV 1+2 Ab+HIV1 p24 Ag IA Ql Non-Reactive Nonreactive [facility] Work Phone: Hematocrit Auto (Bld) [Volum e fraction]on 09-09-2021 Hematocrit (Bld) [Volume fraction] 44.5 % 40-54 [facility] Work Phone: INR in Blood by Coagulation assayon 09-09-2021 INR Coag (Bld) [Relative time] 1.1 {INR} [facility] Work Phone: Laboratory - Chemistry and C hemistry - challengeon 09-09-2021 ALP [Catalytic activity/Vol] 151 U/L 45-117 [facility] Work Phone: ALT [Catalytic activity/Vol] 35 U/L 16-61 [facility] Work Phone: CO2 [Moles/Vol] 21.0 mmol/L 21.0-32.0 [facility] Work Phone: Globulin (S) [Mass/Vol] 4.2 g/dL 2.2-4.2 [facility] Work Phone: Urea nitrogen/Creatinine [Mass ratio] 17.3 mg/mg 10-20 [facility] Work Phone: Laboratory - Coagulationon 0 09-09-2021 PT Coag (PPP) [Time] 14.0 s 11.7-14.9 [facility] Work Phone: Laboratory - Hematology and Cell countson 09-09-2021 Erythrocyte distribution width (RBC) [Entitic vol] 47.3 fL 35.1-43.9 [facility] Work Phone: Erythrocyte distribution width (RBC) [Ratio] 14.6 % 11.6-14.6 [facility] Work Phone: Immature granulocytes/100 WBC (Bld) 0.500 % 0.0-0.9 [facility] Work Phone: Comment on above: IG% - Immature Granu locytes (promyelocytes, myelocytes and metamyelocytes) > 1% indicates that a LEFT SHIFT is Present. MCH (RBC) [Entitic mass] 32.0 pg 27.0-32.0 [facility] Work Phone: Nucleated RBC/100 WBC (Bld) [Ratio] 0 % 0-5 [facility] Work Phone: MCHC Auto (RBC) [Mass/Vol]on 09-09-2021 MCHC (RBC) [Mass/Vol] 35.5 g/dL 32-36 [facility] Work Phone: No Panel Informationon 09-09 Centromere B Antibody <0.2 AI 0.0-0.9 [facility] Work Phone: Ceruloplasmin 30.1 mg/dL 16.0-31.0 [facility] Work Phone: Estimated GFR (MDRD) Amer 64 mL/min >60 [facility] Work Phone: Comment on above: GFR Calc Estimated GFR (MDRD) Non-Af Amer 53 mL/min >60 [facility] Work Phone: Comment on above: Non- GFR Calc Haptoglobin < 10 mg/dL 23-355 [facility] Work Phone: Comment on above: Performed at: [address] [id number] Director: Chidi Roger PhD, Phone: [phone] at: [facility] [address] [id number] Director: Rene Lynn MD, Phone: [phone] Hepatitis A IgM Antibody Negative Negative [facility] Work Phone: Hepatitis B Core IgM Antibody Negative Negative [facility] Work Phone: Hepatitis C Antibody (EIA) 0.1 s/co ratio 0.0-0.9 [facility] Work Phone: Hepatitis C Antibody Comment Comment . [facility] Work Phone: Comment on above: NegativeNot infected with HCV, unless recent infection issuspected or other evidence exists to indicate HCVinfection. PRACTICE ARCHITECT Antibody 0.5 AI 0.0-0.9 [facility] Work Phone: Platelets bldon 09-09-2021 Platelets (Bld) [#/Vol] 153 10*3/uL 150-450 [facility] Work Phone: Serum DNA double strand anti body assay (units/volume)on 09-09-2021 DNA double strand Ab Qn (S) 1 [IU]/mL 0-9 [facility] Work Phone: Comment on above: Negative <5 Equivoca l 5 - 9 Positive >9 Serum Gabi-1 antibody assay (u nits/volume)on 09-09-2021 Gabi-1 extractable nuclear Ab Qn (S) <0.2 AI 0.0-0.9 [facility] Work Phone: Serum Scl-70 extractable nuc lear antibody assay (units/volume)on 09-09-2021 SCL-70 extractable nuclear Ab Qn (S) <0.2 AI 0.0-0.9 [facility] Work Phone: Serum Brewer extractable nucl ear antibody detectionon 09-09-2021 Brewer extractable nuclear Ab Ql (S) <0.2 AI 0.0-0.9 [facility] Work Phone: Serum classic neutrophil cyt oplasmic antibody assay (units/volume)on 09-09-2021 Neutrophil cytoplasmic Ab.classic Qn (S) <1:20 titer Neg:<1:20 [facility] Work Phone: Serum mitochondria antibody detectionon 09-09-2021 Mitochondria Ab Ql (S) <20.0 Units 0.0-20.0 [facility] Work Phone: Comment on above: Negative 0.0 - 20.0 Equivocal 20.1 - 24.9 Positive >24.9Mitochondrial (M2) Antibodies are found in 90-96% ofpatients with primary biliary cirrhosis.Performed at: [facility] [employer] [id number] Director: Chidi Roger PhD, Phone: [phone] Serum or plasma C reactive p rotein measurement (mass/volume)on 09-09-2021 CRP [Mass/Vol] 10.00 mg/L 0.0-3.0 [facility] Work Phone: Comment on above: C-Reactive Protein ( CRP) provides useful information for thediagnosis, therapy and monitoring of inflammatory processesand associated diseases. For the evaluation of Relative Riskfor Cardiovascular Disease, a High Sensitivity CRP (HSCRP)should be ordered. Serum or plasma actin IgG an tibody assay (units/volume)on 09-09-2021 Actin IgG Qn 13 Units 0-19 [facility] Work Phone: Comment on above: Negative 0 - 19 Weak positive 20 - 30 Moderate to strong positive >30 Actin Antibodies are found in 52-85% of patients with autoimmune hepatitis or chronic active hepatitis and in 22% of patients with primary biliary cirrhosis. Serum or plasma albumin camacho urement (mass/volume)on 09-09-2021 Albumin [Mass/Vol] 3.7 g/dL 3.2-5.0 [facility] Work Phone: Serum or plasma albumin/glob ulin mass ratioon 09-09-2021 Albumin/Globulin [Mass ratio] 0.9 {ratio} 0.9-2.4 [facility] Work Phone: Serum or plasma [id number]-[id number] protein tumor marker measurement (units/volume)on 09-09-2021 AFP.tumor marker Qn 2.5 ng/mL 0.0-6.9 [facility] Work Phone: Comment on above: [employer] El ectrochemiluminescence Immunoassay(ECLIA)Values obtained with different assay methods or kits cannotbe used interchangeably. Results cannot be interpreted asabsolute evidence of the presence or absence of malignantdisease.This test is not interpretable in females. Serum or plasma angiotensin converting enzyme measurement (enzymatic activity/volume)on 09-09-2021 Angiotensin converting enzyme [Catalytic activity/Vol] 79 U/L 14-82 [facility] Work Phone: Serum or plasma calcium camacho urement (mass/volume)on 09-09-2021 Calcium [Mass/Vol] 9.3 mg/dL 8.5-10.1 [facility] Work Phone: Serum or plasma creatinine m easurement (mass/volume)on 09-09-2021 Creatinine [Mass/Vol] 1.50 mg/dL 0.70-1.30 [facility] Work Phone: Comment on above: The validity of the calculated GFR & GFRAA in patients over 70 years has not been determined. Clinical correlation is essential. Serum or plasma ferritin sepideh surement (mass/volume)on 09-09-2021 Ferritin [Mass/Vol] 68 ng/mL 26-388 [facility] Work Phone: Serum or plasma hepatitis B virus surface antigen detection by immunoassayon 09-09-2021 HBV surface Ag IA Ql Negative Negative [facility] Work Phone: Serum or plasma urea nitroge n measurement (mass/volume)on 09-09-2021 Urea nitrogen [Mass/Vol] 26 mg/dL 7-18 [facility] Work Phone: Serum perinuclear neutrophil cytoplasmic antibody titer by immunofluorescenceon 09-09-2021 Neutrophil cytoplasmic Ab.perinuclear IF (S) [Titer] <1:20 titer Neg:<1:20 [facility] Work Phone: Comment on above: The presence of posi tive fluorescence exhibiting P-ANCA orC-ANCA patterns alone is not specific for the diagnosis ofWegener's Granulomatosis (WG) or microscopic polyangiitis.Decisions about treatment should not be based solely onANCA IFA results. The [employer] ANCA [employer] Consensusrecommends follow up testing of positive sera with both CA-3 and MPO-ANCA enzyme immunoassays. As many as 5% serumsamples are positive only by EIA. Ref. AM J Clin Bdmmdi8626;111:507-513. Thin prep Papanicolaou smear with manual screeningon 09-09-2021 Thin prep Papanicolaou smear with manual screening 43 U/L 15-37 [facility] Work Phone: Thin prep Papanicolaou smear with manual screening 7 5-15 [facility] Work Phone: Thin prep Papanicolaou smear with manual screening 260 U/L 87-241 [facility] Work Phone: Thin prep Papanicolaou smear with manual screening 166 ug/dL 69-132 [facility] Work Phone: Comment on above: Detection Limit = 5 Whole blood hemoglobin A1c/t otal hemoglobin ratio (mass fraction)on 09-09-2021 HbA1c (Bld) [Mass fraction] 8.4 % 3.8-5.6 [facility] Work Phone: Comment on above: Normal < 5.7 % Predi abetic 5.7 - 6.4 % Diabetic >or= 6.5 % Please note range changes. Andriy 08-18-2021 CNPN Telephone (TOMI) -------- CHRISTA SILVERMAN ([id number]) 1975 M Date Time Provider Department 08/18/21 ELICIA ZUNIGA During your visit today, we recorded the following information about you: Elicia Zuniga MD 08/18/2021 11:13 AM Signed Please notify patient that all his other test results were normal except for a low platelet which we discussed during his office visit. Follow-up with PCP for chronic ITP. MD Leah Calabrese LPN 08/18/2021 11:21 AM Signed Patient notified. Leah Quinn LPN Allergies As of Date: 08/18/2021 (No Known Allergies) Date Reviewed: 08/17/2021 Reviewed by: Jyothi Mosley - Fully Assessed Reason for Visit: Results [95] Prescriptions as of 08/18/2021 - HUMALOG MIX 50-50 INSULN U-100 100 unit/mL (50-50) susp twice daily. - atorvastatin (LIPITOR) 20 mg tablet Take 20 mg by mouth daily at bedtime. - TRULICITY 4.5 mg/0.5 mL pen injector one time a week. - cholecalciferol, Vitamin D3, (VITAMIN D3) 1,250 mcg (50,000 unit) cap capsule Take 1 capsule by mouth one time a week. - Magnesium 250 mg tab Take 250 mg by mouth once daily. - metoprolol tartrate, short acting, (LOPRESSOR) 50 mg tablet twice daily. - aspirin, enteric coated (ASPIRIN, ENTERIC COATED) 81 mg EC tablet Take 81 mg by mouth once daily. - LEVOTHYROXINE SODIUM (LEVOTHYROXINE, BULK, MISC) 175 mcg once daily as needed. Problem List As Of Date 08/18/2021 Noted Resolved Immune thrombocytopenic purpura (HCC) [D69.3] 08/17/2021 Fatty liver [K76.0] 08/17/2021 Diabetes mellitus due to underlying condition w*08/17/2021 Hypothyroidism [E03.9] 08/17/2021 Encounter Status:Closed by ELAH QUINN LPN on 08/18/21 [facility] Telephone (TOMI) -------- CHRISTA SILVERMAN ([id number]) 1975 M Date Time Provider Department 08/18/21 ELICIA ZUNIGA During your visit today, we recorded the following information about you: Roxana Munoz 08/18/2021 4:59 PM Signed Crystal from [facility] office called regarding fax. They only received the letter and not the office notes that were to be attached. Fax number [phone] Yana Cummins LPN 08/18/2021 5:03 PM Signed Faxed Yana Cummins LPN Allergies As of Date: 08/18/2021 (No Known Allergies) Date Reviewed: 08/17/2021 Reviewed by: Jyothi Mosley - Fully Assessed Reason for Visit: Patient Question [4377] Prescriptions as of 08/18/2021 - HUMALOG MIX 50-50 INSULN U-100 100 unit/mL (50-50) susp twice daily. - atorvastatin (LIPITOR) 20 mg tablet Take 20 mg by mouth daily at bedtime. - TRULICITY 4.5 mg/0.5 mL pen injector one time a week. - cholecalciferol, Vitamin D3, (VITAMIN D3) 1,250 mcg (50,000 unit) cap capsule Take 1 capsule by mouth one time a week. - Magnesium 250 mg tab Take 250 mg by mouth once daily. - metoprolol tartrate, short acting, (LOPRESSOR) 50 mg tablet twice daily. - aspirin, enteric coated (ASPIRIN, ENTERIC COATED) 81 mg EC tablet Take 81 mg by mouth once daily. - LEVOTHYROXINE SODIUM (LEVOTHYROXINE, BULK, MISC) 175 mcg once daily as needed. Problem List As Of Date 08/18/2021 Noted Resolved Immune thrombocytopenic purpura (HCC) [D69.3] 08/17/2021 Fatty liver [K76.0] 08/17/2021 Diabetes mellitus due to underlying condition w*08/17/2021 Hypothyroidism [E03.9] 08/17/2021 Encounter Status:Closed by YANA CUMMINS LPN on 08/18/21 Normal [facility] CBC W Ordered Manual Differe ntial panel (Bld)on 08-17-2021 Basophils (Bld) [#/Vol] 0.03 10*3/uL Normal <0.11 [facility] Comment on above: Order Comment: Speci men Type: BLOOD SPECIMEN Ordering Facility: [facility] Address: [address] [place] [id number] Performed By: #### 5 7782-5 #### [facility] CLIA [id number] [address] [place] [address] [place] #### STFREV #### [facility] CLIA [id number] [address] [place] [address] [place] Basophils/100 WBC (Bld) 0.6 % Normal C levelCounts include 234 beds at the [facility] Comment on above: Order Comment: Speci men Type: BLOOD SPECIMEN Ordering Facility: [facility] Address: [address] [place] [address] Performed By: #### 5 7782-5 #### [facility] CLIA [id number] [address] [place] [address] [place] #### STFREV #### [facility] CLIA [id number] [address] [place] [address] [place] Differential cell count method Nom (Bld) Auto Normal [facility] Comment on above: Order Comment: Speci men Type: BLOOD SPECIMEN Ordering Facility: [facility] Address: [address] [place] [address] Performed By: #### 5 7782-5 #### [facility] CLIA [id number] [address] [place] [address] [place] #### STFREV #### [facility] CLIA [id number] [address] [place] [address] [place] Eosinophils (Bld) [#/Vol] 0.12 10*3/uL Normal <0.46 [facility] Comment on above: Order Comment: Speci men Type: BLOOD SPECIMEN Ordering Facility: [facility] Address: [address] [place] [address] Performed By: #### 5 7782-5 #### [facility] CLIA [id number] [address] [place] [address] [place] #### STFREV #### [facility] CLIA [id number] [address] [place] [address] [place] Eosinophils/100 WBC (Bld) 2.3 % Normal [facility] Comment on above: Order Comment: Speci men Type: BLOOD SPECIMEN Ordering Facility: [facility] Address: [address] [place], [place] [address] Performed By: #### 5 7782-5 #### [facility] CLIA [id number] [address] [place] [address] [place] #### STFREV #### [facility] CLIA [id number] [address] [place] [address] [place] Erythrocyte distribution width (RBC) [Ratio] 14.7 % Normal 11.5-15.0 [facility] Comment on above: Order Comment: Speci men Type: BLOOD SPECIMEN Ordering Facility: [facility] Address: [address] [place] [address] Performed By: #### 5 7782-5 #### [facility] CLIA [id number] [address] [place] [address] [place] #### STFREV #### [facility] CLIA [id number] [address] [place] [address] [place] Hematocrit (Bld) [Volume fraction] 42.9 % Normal 39.0-51.0 [facility] Comment on above: Order Comment: Speci men Type: BLOOD SPECIMEN Ordering Facility: [facility] Address: [address] [place] [address] Performed By: #### 5 7782-5 #### [facility] CLIA [id number] [address] [place] [address] [place] #### STFREV #### [facility] CLIA [id number] [address] [place] [address] [place] Hemoglobin (Bld) [Mass/Vol] 15.5 g/dL Normal 13.0-17.0 [facility] Comment on above: Order Comment: Speci men Type: BLOOD SPECIMEN Ordering Facility: [facility] Address: [address] [place] [address] Performed By: #### 5 7782-5 #### [facility] CLIA [id number] [address] [place] [address] [place] #### STFREV #### [facility] CLIA [id number] [address] [place] [address] [place] IMMATURE GRAN % 0.4 % Normal [facility] Comment on above: Order Comment: Speci men Type: BLOOD SPECIMEN Ordering Facility: [facility] Address: [address] [place] [address] Performed By: #### 5 7782-5 #### [facility] CLIA [id number] [address] [place] [address] [place] #### STFREV #### [facility] CLIA [id number] [address] [place] [address] [place] IMMATURE GRAN ABS <0.03 Normal <0.10 [facility] Comment on above: Order Comment: Speci men Type: BLOOD SPECIMEN Ordering Facility: [facility] Address: [address] [place], [place] [address] Performed By: #### 5 7782-5 #### [facility] CLIA [id number] [address] [place] [address] [place] #### STFREV #### [facility] CLIA [id number] [address] [place] [address] [place] Lymphocytes (Bld) [#/Vol] 1.07 10*3/uL Normal 1.00-4.00 [facility] Comment on above: Order Comment: Speci men Type: BLOOD SPECIMEN Ordering Facility: [facility] Address: [address] [place] [address] Performed By: #### 5 7782-5 #### [facility] CLIA [id number] [address] [place] [address] [place] #### STFREV #### [facility] CLIA [id number] [address] [place] [address] [place] Lymphocytes/100 WBC (Bld) 20.2 % Normal [facility] Comment on above: Order Comment: Speci men Type: BLOOD SPECIMEN Ordering Facility: [facility] Address: [address] [place] [address] Performed By: #### 5 7782-5 #### [facility] CLIA [id number] [address] [place] [address] [place] #### STFREV #### [facility] CLIA [id number] [address] [place] [address] [place] MCH (RBC) [Entitic mass] 32.5 pg Normal 26.0-34.0 [facility] Comment on above: Order Comment: Speci men Type: BLOOD SPECIMEN Ordering Facility: [facility] Address: [address] [place], [place] [address] Performed By: #### 5 7782-5 #### [facility] CLIA [id number] [address] [place] [address] [place] #### STFREV #### [facility] CLIA [id number] [address] [place] [address] [place] MCHC (RBC) [Mass/Vol] 36.1 g/dL High 30.5-36.0 [facility] Comment on above: Order Comment: Speci men Type: BLOOD SPECIMEN Ordering Facility: [facility] Address: [address] [place] [address] Performed By: #### 5 7782-5 #### [facility] CLIA [id number] [address] [place] [address] [place] #### STFREV #### [facility] CLIA [id number] [address] [place] [address] [place] MCV (RBC) [Entitic vol] 89.9 fL Normal 80.0-100.0 C levelCounts include 234 beds at the [facility] Comment on above: Order Comment: Speci men Type: BLOOD SPECIMEN Ordering Facility: [facility] Address: [address] [place] [address] Performed By: #### 5 7782-5 #### [facility] CLIA [id number] [address] [place] [address] [place] #### STFREV #### [facility] CLIA [id number] [address] [place] [address] [place] Monocytes (Bld) [#/Vol] 0.34 10*3/uL Normal <0.87 [facility] Comment on above: Order Comment: Speci men Type: BLOOD SPECIMEN Ordering Facility: [facility] Address: [address] [place], [place] [address] Performed By: #### 5 7782-5 #### [facility] CLIA [id number] [address] [place] [address] [place] #### STFREV #### [facility] CLIA [id number] [address] [place] [address] [place] Monocytes/100 WBC (Bld) 6.4 % Normal C [facility] Comment on above: Order Comment: Speci men Type: BLOOD SPECIMEN Ordering Facility: [facility] Address: [address] [place] [address] Performed By: #### 5 7782-5 #### [facility] CLIA [id number] [address] [place] [address] [place] #### STFREV #### [facility] CLIA [id number] [address] [place] [address] [place] Neutrophils (Bld) [#/Vol] 3.71 10*3/uL Normal 1.45-7.50 [facility] Comment on above: Order Comment: Speci men Type: BLOOD SPECIMEN Ordering Facility: [facility] Address: [address] [place], [place] [address] Performed By: #### 5 7782-5 #### [facility] CLIA [id number] [address] [place] [address] [place] #### STFREV #### [facility] CLIA [id number] [address] [place] [address] [place] Neutrophils/100 WBC (Bld) 70.1 % Normal [facility] Comment on above: Order Comment: Speci men Type: BLOOD SPECIMEN Ordering Facility: [facility] Address: [address] [place], [place] [address] Performed By: #### 5 7782-5 #### [facility] CLIA [id number] [address] [place] [address] [place] #### STFREV #### [facility] CLIA [id number] [address] [place] [address] [place] Nucleated RBC (Bld) [#/Vol] 10*3/uL Normal <0.01 [facility] Comment on above: Order Comment: Speci men Type: BLOOD SPECIMEN Ordering Facility: [facility] Address: [address] [place] [address] Performed By: #### 5 7782-5 #### [facility] CLIA [id number] [address] [place] [address] [place] #### STFREV #### [facility] CLIA [id number] [address] [place] [address] [place] Nucleated RBC/100 WBC (Bld) [Ratio] 0.0 /100 WBC Normal [facility] Comment on above: Order Comment: Speci men Type: BLOOD SPECIMEN Ordering Facility: [facility] Address: [address] [place] [address] Performed By: #### 5 7782-5 #### [facility] CLIA [id number] [address] [place] [address] [place] #### STFREV #### [facility] CLIA [id number] [address] [place] [address] [place] Platelet mean volume (Bld) [Entitic vol] 8.6 fL Low 9.0-12.7 [facility] Comment on above: Order Comment: Speci men Type: BLOOD SPECIMEN Ordering Facility: [facility] Address: [address] [place] [address] Performed By: #### 5 7782-5 #### [facility] CLIA [id number] [address] [place] [address] [place] #### STFREV #### [facility] CLIA [id number] [address] [place] [address] [place] Platelets (Bld) [#/Vol] 118 10*3/uL Low 150-400 [facility] Comment on above: Order Comment: Speci men Type: BLOOD SPECIMEN Ordering Facility: [facility] Address: [address] [place], [place] [id number] Performed By: #### 5 7782-5 #### [facility] CLIA [id number] [address] [place] [address] [place] #### STFREV #### [facility] CLIA [id number] [address] [place] [address] [place] RBC (Bld) [#/Vol] 4.77 10*6/uL Normal 4.20-6.00 [facility] Comment on above: Order Comment: Speci men Type: BLOOD SPECIMEN Ordering Facility: [facility] Address: [address] [place] [address] Performed By: #### 5 7782-5 #### [facility] CLIA [id number] [address] [place] [address] [place] #### STFREV #### [facility] CLIA [id number] [address] [place] [address] [place] WBC (Bld) [#/Vol] 5.29 10*3/uL Normal 3.70-11.00 [facility] Comment on above: Order Comment: Speci men Type: BLOOD SPECIMEN Ordering Facility: [facility] Address: [address] [place] [address] Performed By: #### 5 7782-5 #### [facility] CLIA [id number] [address] [place] [address] [place] #### STFREV #### [facility] CLIA [id number] [address] [place] [address] [place] CNOVSPon 08-17-2021 CNOVSP Visit (SP) Office (HEMAWS) -------- CHRISTA SILVERMAN ([id number]) 1975 M Date Time Provider Department 08/17/21 2:00 PM ELICIA ZUNIGA During your visit today, we recorded the following information about you: Temperature Pulse Blood pressure Weight 96.7 degrees 77/minute 129/80 198.2 kg Height 1.778 m Elicia Zuniga MD 08/18/2021 7:50 AM Signed Hematology and Medical Oncology PATIENT NAME: Christa Silverman. CLINIC NO: [id number]. ATTENDING PHYSICIAN: Elicia Zuniga MD. DATE OF SERVICE:08/17/2021. DIAGNOSIS: Chronic thrombocytopenia Consultation requested by Cherelle Flowers CNP for an opinion regarding chronic thrombocytopenia. My final recommendations will be communicated back to the requesting physician by way of shared Medical record or letter to requesting physician via US mail. PERFORMANCE STATUS:100% HPI: 46-year-old gentleman with morbid obesity, hypothyroidism, hypertension, diabetes mellitus and sleep apnea who presented with chronic thrombocytopenia. 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 Evaluation including ultrasound of the abdomen because of abnormal liver functions showed hepatosplenomegaly and fatty liver disease. Status post cholecystectomy. Since he has no bleeding or bruising issues on aspirin 81 mg daily, they follow his blood count. He has no history of alcohol abuse, but he has a previous history of drug use. He denied history of hepatitis or HIV infection. He is single and not in any relationship. No family history of anemia or bleeding disorder. He also started on Trulicity and Humalog insulin, and stopped metformin because of kidney disease. He denied increased bleeding or bruising even with his insulin shots. No increased fatigue. No fever chills or night sweats. No early satiety, abdominal bloating or jaundice. MEDICATIONS: Current Outpatient Medications Medication Sig - HUMALOG MIX 50-50 INSULN U-100 100 unit/mL (50-50) susp twice daily. - atorvastatin (LIPITOR) 20 mg tablet Take 20 mg by mouth daily at bedtime. - TRULICITY 4.5 mg/0.5 mL pen injector one time a week. - cholecalciferol, Vitamin D3, (VITAMIN D3) 1,250 mcg (50,000 unit) cap capsule Take 1 capsule by mouth one time a week. - Magnesium 250 mg tab Take 250 mg by mouth once daily. - metoprolol tartrate, short acting, (LOPRESSOR) 50 mg tablet twice daily. - aspirin, enteric coated (ASPIRIN, ENTERIC COATED) 81 mg EC tablet Take 81 mg by mouth once daily. - LEVOTHYROXINE SODIUM (LEVOTHYROXINE, BULK, MISC) 175 mcg once daily as needed. No current facility-administered medications for this visit. . ALLERGIES:ALLERGIES No Known Allergies. PAST MEDICAL HISTORY: PAST MEDICAL HISTORY Diagnosis Date - Diabetes mellitus (HCC) - High cholesterol - Hypertension - Thyroid disease . PAST SURGICAL HISTORY: PAST SURGICAL HISTORY Procedure Laterality Date - TONSILLECTOMY AND ADENOIDECTOMY HX . FAMILY HISTORY:No family history on file.. SOCIAL HISTORY: Social History Tobacco Use - Smoking status: Not on file - Smokeless tobacco: Not on file Substance Use Topics - Alcohol use: Not on file - Drug use: Not on file . REVIEW OF SYSTEMS: CONSTITUTIONAL: No fevers, chills, nightsweats, unintended weight loss HEENT: Denies frequent or severe heaches, nasal congestion/sinus symptoms, problematic allergy problems. EYES: No diplopia or blurry vision. CARDIOVASCULAR: No chest pain, dyspnea, palpitations, orthopnea, PND, ankle edema. PULM: No dyspnea, unexplained cough. GI: No dysphagia/odynophagia, problematic reflux, constipation, diarrhea, changes in stool habits, hematochezia, melena. : No new urinary complaints, including dysuria, gross hematuria or pyuria. NEURO: No new balance problems, peripheral weakness/paresthesias or numbness of concern. MUSC-SKEL: No new joint pain, swelling, or erythema. PSY: No concerns regarding depression, anxiety or panic. INTEGUMENTARY: No new skin changes (rash, new or changing mole, new growth) PHYSICAL EXAMINATION: BP 129/80 Pulse 77 Temp (Src) 96.7 (Tympanic) Ht 5' 10 (1.78m) Wt 437 lb (198.2kg) SpO2 97% BMI 62.70 kg/(m2). HEENT: Head is normocephalic, atraumatic. Sclerae white, conjunctivae pink. PEERL. EOMs are intact. Oropharynx is benign. LYMPHATICS: There is no palpable adenopathy in the neck, supraclavicular region, axillae, or groin. LUNGS: Lungs are clear to percussion and auscultation. HEART: Heart is normal without murmurs, gallops, or rubs. ABDOMEN: Obese, soft and nontender without organomegaly. No masses or ascites can be palpated. EXTREMITIES: Are without edema. No petechiae or ecchymosis. NEUROLOGIC: Exam is physiologic LABORATORY DATA: Component Latest Ref Rng AND Units 08/17/2021 WBC 3.70 - 11.00 k/uL 5.29 RBC 4.20 - 6.00 m/uL 4.77 H (more content not included)... Normal [facility] HCV Ab Ser Qlon 08-17-2021 HCV Ab Ql (S) Negative Normal Negative [facility] Comment on above: Order Comment: Brisa obregon Type: BLOOD SPECIMEN Ordering Facility: [facility] Address: [address] [place] [address] Result Comment: The result suggests no evidence of active infection with Hepatitis C virus. Should recent infection be suspected, repeat testing may be considered 4-6 weeks after this draw. Performed By: #### 1 6128-1 #### [facility] CLIA [id number] [address] [place] [address] [place] HEPATIC FUNCTION PNLon 08-17 Albumin [Mass/Vol] 4.2 g/dL Normal 3.9-4.9 [facility] Comment on above: Order Comment: Brisa obregon Type: BLOOD SPECIMEN Ordering Facility: [facility] Address: [address] [place], [place] [id number] Performed By: #### H FP #### [facility] CLIA [id number] [address] [place] [address] [place] ALP [Catalytic activity/Vol] 155 U/L High 38-113 [facility] Comment on above: Order Comment: Brisa obregon Type: BLOOD SPECIMEN Ordering Facility: [facility] Address: [address] [place] [address] Performed By: #### H FP #### [facility] CLIA [id number] [address] [place] [address] [place] ALT [Catalytic activity/Vol] 21 U/L Normal 10-54 [facility] Comment on above: Order Comment: Speci men Type: BLOOD SPECIMEN Ordering Facility: [facility] Address: [address] [place] [address] Performed By: #### H FP #### [facility] CLIA [id number] [address] [place] [address] [place] AST [Catalytic activity/Vol] 32 U/L Normal 14-40 [facility] Comment on above: Order Comment: Speci men Type: BLOOD SPECIMEN Ordering Facility: [facility] Address: [address] [place] [address] Performed By: #### H FP #### [facility] CLIA [id number] [address] [place] [address] [place] Bilirubin [Mass/Vol] 0.8 mg/dL Normal 0.2-1.3 [facility] Comment on above: Order Comment: Speci men Type: BLOOD SPECIMEN Ordering Facility: [facility] Address: [address] [place] [address] Performed By: #### H FP #### [facility] CLIA [id number] [address] [place] [address] [place] Bilirubin.conjugated [Mass/Vol] mg/dL Normal <0.2 [facility] Comment on above: Order Comment: Speci men Type: BLOOD SPECIMEN Ordering Facility: [facility] Address: [address] [place] [address] Performed By: #### H FP #### [facility] CLIA [id number] [address] [place] [address] [place] Protein [Mass/Vol] 7.8 g/dL Normal 6.3-8.0 [facility] Comment on above: Order Comment: Speci men Type: BLOOD SPECIMEN Ordering Facility: [facility] Address: [address] [place] [address] Performed By: #### H #### [facility] SARAH [id number] [address] [place] [address] [place] HISTORY PHYSICALon HISTORY PHYSICAL HNO ID: [id number] Author: Elicia Zuniga MD Service: ? Author Type: Physician Type: HANDP Filed: 08/18/2021 7:50 AM Note Text: Hematology and Medical Oncology PATIENT NAME: Christa Silverman. CLINIC NO: [id number]. ATTENDING PHYSICIAN: Elicia Zuniga MD. DATE OF SERVICE:08/17/2021. DIAGNOSIS: Chronic thrombocytopenia Consultation requested by Cherelle Flowers CNP for an opinion regarding chronic thrombocytopenia. My final recommendations will be communicated back to the requesting physician by way of shared Medical record or letter to requesting physician via US mail. PERFORMANCE STATUS:100% HPI: 46-year-old gentleman with morbid obesity, hypothyroidism, hypertension, diabetes mellitus and sleep apnea who presented with chronic thrombocytopenia. 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 Evaluation including ultrasound of the abdomen because of abnormal liver functions showed hepatosplenomegaly and fatty liver disease. Status post cholecystectomy. Since he has no bleeding or bruising issues on aspirin 81 mg daily, they follow his blood count. He has no history of alcohol abuse, but he has a previous history of drug use. He denied history of hepatitis or HIV infection. He is single and not in any relationship. No family history of anemia or bleeding disorder. He also started on Trulicity and Humalog insulin, and stopped metformin because of kidney disease. He denied increased bleeding or bruising even with his insulin shots. No increased fatigue. No fever chills or night sweats. No early satiety, abdominal bloating or jaundice. MEDICATIONS: Current Outpatient Medications Medication Sig - HUMALOG MIX 50-50 INSULN U-100 100 unit/mL (50-50) susp twice daily. - atorvastatin (LIPITOR) 20 mg tablet Take 20 mg by mouth daily at bedtime. - TRULICITY 4.5 mg/0.5 mL pen injector one time a week. - cholecalciferol, Vitamin D3, (VITAMIN D3) 1,250 mcg (50,000 unit) cap capsule Take 1 capsule by mouth one time a week. - Magnesium 250 mg tab Take 250 mg by mouth once daily. - metoprolol tartrate, short acting, (LOPRESSOR) 50 mg tablet twice daily. - aspirin, enteric coated (ASPIRIN, ENTERIC COATED) 81 mg EC tablet Take 81 mg by mouth once daily. - LEVOTHYROXINE SODIUM (LEVOTHYROXINE, BULK, MISC) 175 mcg once daily as needed. No current facility-administered medications for this visit. . ALLERGIES:ALLERGIES No Known Allergies. PAST MEDICAL HISTORY: PAST MEDICAL HISTORY Diagnosis Date - Diabetes mellitus (HCC) - High cholesterol - Hypertension - Thyroid disease . PAST SURGICAL HISTORY: PAST SURGICAL HISTORY Procedure Laterality Date - TONSILLECTOMY AND ADENOIDECTOMY HX . FAMILY HISTORY:No family history on file.. SOCIAL HISTORY: Social History Tobacco Use - Smoking status: Not on file - Smokeless tobacco: Not on file Substance Use Topics - Alcohol use: Not on file - Drug use: Not on file . REVIEW OF SYSTEMS: CONSTITUTIONAL: No fevers, chills, nightsweats, unintended weight loss HEENT: Denies frequent or severe heaches, nasal congestion/sinus symptoms, problematic allergy problems. EYES: No diplopia or blurry vision. CARDIOVASCULAR: No chest pain, dyspnea, palpitations, orthopnea, PND, ankle edema. PULM: No dyspnea, unexplained cough. GI: No dysphagia/odynophagia, problematic reflux, constipation, diarrhea, changes in stool habits, hematochezia, melena. : No new urinary complaints, including dysuria, gross hematuria or pyuria. NEURO: No new balance problems, peripheral weakness/paresthesias or numbness of concern. MUSC-SKEL: No new joint pain, swelling, or erythema. PSY: No concerns regarding depression, anxiety or panic. INTEGUMENTARY: No new skin changes (rash, new or changing mole, new growth) PHYSICAL EXAMINATION: BP 129/80 Pulse 77 Temp (Src) 96.7 (Tympanic) Ht 5' 10 (1.78m) Wt 437 lb (198.2kg) SpO2 97% BMI 62.70 kg/(m2). HEENT: Head is normocephalic, atraumatic. Sclerae white, conjunctivae pink. PEERL. EOMs are intact. Oropharynx is benign. LYMPHATICS: There is no palpable adenopathy in the neck, supraclavicular region, axillae, or groin. LUNGS: Lungs are clear to percussion and auscultation. HEART: Heart is normal without murmurs, gallops, or rubs. ABDOMEN: Obese, soft and nontender without organomegaly. No masses or ascites can be palpated. EXTREMITIES: Are without edema. No petechiae or ecchymosis. NEUROLOGIC: Exam is physiologic LABORATORY DATA: Component Latest Ref Rng AND Units 08/17/2021 WBC 3.70 - 11.00 k/uL 5.29 RBC 4.20 - 6.00 m/uL 4.77 Hemoglobin 13.0 - 17.0 g/dL 15.5 Hematocrit 39.0 - 51.0 % 42.9 MCV 80.0 - 100.0 fL 89.9 MCH 26.0 - 34.0 pg 32.5 MCHC 30.5 - 36.0 g/dL 36.1 (H) RDW-CV 11.5 - 15.0 % 14.7 Platelet Count 150 - 400 k/uL 118 (L) MPV 9.0 - 12.7 fL 8.6 (L) Neut% % 70.1 Abs Neut (ANC) 1.45 - 7.50 k/uL 3 (more content not included)... Normal [facility] HIV 1+2 Ab IA Qlon 2 HIV 1 and 2 Ab IA.rapid Nom Normal [facility] Comment on above: Order Comment: Speci men Type: BLOOD SPECIMEN Ordering Facility: [facility] Address: [address] [place] [address] Result Comment: Test not indicated. Performed By: #### 3 1201-7 #### [facility] CLIA [id number] [address] [place] [address] STATES OF [facility] HIV 1+2 Ab+HIV1 p24 Ag IA Ql Non-Reactive Normal Nonreactive [facility] Comment on above: Order Comment: Speci men Type: BLOOD SPECIMEN Ordering Facility: [facility] Address: [address] [place] [address] Performed By: #### 3 1201-7 #### [facility] CLIA [id number] [address] [place] [address] [place] HIVINT Normal [facility] Comment on above: Order Comment: Speci men Type: BLOOD SPECIMEN Ordering Facility: [facility] Address: [address] [place], [place] [id number] Result Comment: No e vidence of HIV-1 or HIV-2 infection. Should recent infection be suspected, repeat testing may be considered 2-3 weeks after this draw. [place] Rev. Code 3701.243(E): This information has been disclosed to you from confidential records protected from disclosure by state law. ???You shall make no further disclosure of this information without the specific, written, and informed release of the individual to whom it pertains or as otherwise permitted by state law. A general authorization for the release of medical or other information is not sufficient for the purpose of the release of HIV test results or diagnoses. Performed By: #### 3 1201-7 #### [facility] CLIA [id number] [address] [place] [address] [place] PATHOLOGIST INTERPRETATION C BC/DIFFon 08-17-2021 Lot Boss review Jose M (Unsp spec) [Interp] No review performed. Normal [facility] Comment on above: Order Comment: Speci men Type: BLOOD SPECIMEN Ordering Facility: [facility] Address: [address] [place] [address] Performed By: #### 5 7782-5 #### [facility] CLIA [id number] [address] [place] [address] [place] #### STFREV #### [facility] CLIA [id number] [address] [place] [address] [place] STAFF REVIEW, CBCDIF Normal [facility] Comment on above: Order Comment: Speci men Type: BLOOD SPECIMEN Ordering Facility: [facility] Address: [address] [place], [place] [id number] Result Comment: The Pathologist Interpretation on this sample was cancelled because the hematology analyzer did not flag any parameters as requiring manual review. If there is a specific clinical concern for which you would like a pathologist to review the blood smear, please call Lab Client Services within 28 days. Performed By: #### 5 7782-5 #### [facility] CLIA [id number] [address] [place] [address] [place] #### STFREV #### [facility] CLIA [id number] [address] [place] [address] OF [facility] Absolute lymphocyte counton 07-05-2021 Lymphocytes Auto (Unsp spec) [#/Vol] 1.25 10*3/uL 0.83-4.51 [facility] Work Phone: Basophil percentageon 2021 Basophils/100 WBC (Bld) 0.7 % 0-1 [facility] Work Phone: Bilirubin [Mass/Vol] 0.90 mg/dL 0.20-1.00 [facility] Work Phone: Comment on above: For patients on eltr ombopag therapy, use of Dimension [place] TBIL is not recommended. Chloride [Moles/Vol] 102 mmol/L 98-107 [facility] Work Phone: Cholesterol [Mass/Vol] 142 mg/dL <200 [facility] Work Phone: Comment on above: <200 mg/dL Desirable 200-240 mg/dL Borderline >240 mg/dL High Risk Eosinophils/100 WBC (Bld) 3.0 % 0-5 [facility] Work Phone: Glucose [Mass/Vol] 357 mg/dL 74-106 [facility] Work Phone: Comment on above: Glucose result great er than or equal to 200 mg/dLsuggests DIABETES MELLITUS per A.D.A. criteria. Neutrophils (Bld) [#/Vol] 2.5 10*3/uL 2.0-7.7 [facility] Work Phone: Neutrophils/100 WBC (Bld) 58.2 % 47-70 [facility] Work Phone: Potassium [Moles/Vol] 4.2 mmol/L 3.5-5.1 [facility] Work Phone: Protein [Mass/Vol] 7.7 g/dL 6.4-8.2 [facility] Work Phone: Sodium [Moles/Vol] 130 mmol/L 136-145 [facility] Work Phone: [phone] Triglyceride [Mass/Vol] 198 mg/dL <199 [facility] Work Phone: Comment on above: The drugs N-Acetylcy steine and Metamizole may falsely depress this assay.Serum Triglycerides Reference Interval Normal <150 mg/dL Borderline high 150 - 199 mg/dL High 200 - 499 mg/dL Very High > or = 500 mg/dL WBC (Bld) [#/Vol] 4.3 10*3/uL 4.4-11.0 [facility] Work Phone: Blood erythrocytes count (nu mber/volume)on 07-05-2021 RBC (Bld) [#/Vol] 4.86 10*6/uL 4.6-6.2 [facility] Work Phone: Blood hemoglobin measurement (mass/volume)on 07-05-2021 Hemoglobin (Bld) [Mass/Vol] 15.4 g/dL 13.0-16.5 [facility] Work Phone: Blood lymphocytes/100 leukoc yteson 07-05-2021 Lymphocytes/100 WBC (Bld) 29.2 % 19-41 [facility] Work Phone: Blood monocytes/100 leukocyt eson 07-05-2021 Monocytes/100 WBC (Bld) 8.4 % 0-10 [facility] Work Phone: Blood platelet mean volumeon 07-05-2021 Platelet mean volume (Bld) [Entitic vol] 9.0 fL 6.2-12.0 [facility] Work Phone: Determination of erythrocyte mean corpuscular volume (MCV)on 07-05-2021 MCV (RBC) [Entitic vol] 88.3 fL 80-94 [facility] Work Phone: Hematocrit Auto (Bld) [Volum e fraction]on 07-05-2021 Hematocrit (Bld) [Volume fraction] 42.9 % 40-54 [facility] Work Phone: Laboratory - Chemistry and C hemistry - challengeon 07-05-2021 ALP [Catalytic activity/Vol] 187 U/L 45-117 [facility] Work Phone: ALT [Catalytic activity/Vol] 38 U/L 16-61 [facility] Work Phone: CO2 [Moles/Vol] 22.0 mmol/L 21.0-32.0 [facility] Work Phone: Globulin (S) [Mass/Vol] 4.1 g/dL 2.2-4.2 [facility] Work Phone: Urea nitrogen/Creatinine [Mass ratio] 17.2 mg/mg 10-20 [facility] Work Phone: Laboratory - Hematology and Cell countson 07-05-2021 Erythrocyte distribution width (RBC) [Entitic vol] 46.9 fL 35.1-43.9 [facility] Work Phone: Erythrocyte distribution width (RBC) [Ratio] 14.6 % 11.6-14.6 [facility] Work Phone: Immature granulocytes/100 WBC (Bld) 0.500 % 0.0-0.9 [facility] Work Phone: Comment on above: IG% - Immature Granu locytes (promyelocytes, myelocytes and metamyelocytes) > 1% indicates that a LEFT SHIFT is Present. MCH (RBC) [Entitic mass] 31.7 pg 27.0-32.0 [facility] Work Phone: Nucleated RBC/100 WBC (Bld) [Ratio] 0 % 0-5 [facility] Work Phone: MCHC Auto (RBC) [Mass/Vol]on 07-05-2021 MCHC (RBC) [Mass/Vol] 35.9 g/dL 32-36 [facility] Work Phone: No Panel Informationon 07-05 Estimated GFR (MDRD) Amer 61 mL/min >60 [facility] Work Phone: Comment on above: GFR Calc Estimated GFR (MDRD) Non-Af Amer 51 mL/min >60 [facility] Work Phone: Comment on above: Non- GFR Calc Platelets bldon 07-05-2021 Platelets (Bld) [#/Vol] 127 10*3/uL 150-450 [facility] Work Phone: Serum or plasma albumin camacho urement (mass/volume)on 07-05-2021 Albumin [Mass/Vol] 3.6 g/dL 3.2-5.0 [facility] Work Phone: Serum or plasma albumin/glob ulin mass ratioon 07-05-2021 Albumin/Globulin [Mass ratio] 0.9 {ratio} 0.9-2.4 [facility] Work Phone: Serum or plasma calcium camacho urement (mass/volume)on 07-05-2021 Calcium [Mass/Vol] 8.9 mg/dL 8.5-10.1 [facility] Work Phone: Serum or plasma cholesterol in HDL measurement (mass/volume)on 07-05-2021 Cholesterol in HDL [Mass/Vol] 31 mg/dL >40 [facility] Work Phone: Comment on above: The drugs N-Acetylcy steine and Metamizole may falsely depress this assay. Reference Range HDL <40 mg/dL Low HDL Cholesterol HDL >or= 60 mg/dL High HDL Cholesterol Serum or plasma cholesterol in VLDL measurement (mass/volume)on 07-05-2021 Cholesterol in VLDL [Mass/Vol] 40 mg/dL 5-40 [facility] Work Phone: Serum or plasma creatinine m easurement (mass/volume)on 07-05-2021 Creatinine [Mass/Vol] 1.57 mg/dL 0.70-1.30 [facility] Work Phone: Comment on above: The validity of the calculated GFR & GFRAA in patients over 70 years has not been determined. Clinical correlation is essential. Serum or plasma low density lipoprotein (LDL) cholesterol measurement (mass/volume)on 07-05-2021 Cholesterol in LDL [Mass/Vol] 71 mg/dL 0-130 [facility] Work Phone: Serum or plasma urea nitroge n measurement (mass/volume)on 07-05-2021 Urea nitrogen [Mass/Vol] 27 mg/dL 7-18 [facility] Work Phone: Thin prep Papanicolaou smear with manual screeningon 07-05-2021 Thin prep Papanicolaou smear with manual screening 43 U/L 15-37 [facility] Work Phone: Thin prep Papanicolaou smear with manual screening 6 5-15 [facility] Work Phone: Laboratory - Hematology and Cell countson 05-24-2021 HbA1c (Bld) [Mass fraction] 7.9 % [facility] Work Phone: Glucose Glucometer (BldC) [M ass/Vol]on 02-10-2021 Glucose [Mass/Vol] 256 mg/dL 70-110 [facility] Work Phone: Comment on above: MANAGEMENT OF PATIEN T CARE PER NURSING PROTOCOL Absolute lymphocyte counton 02-08-2021 Lymphocytes Auto (Unsp spec) [#/Vol] 0.27 10*3/uL 0.83-4.51 [facility] Work Phone: Basophil percentageon 2020 Bilirubin [Mass/Vol] 0.70 mg/dL 0.20-1.00 [facility] Work Phone: Comment on above: For patients on eltr ombopag therapy, use of Dimension [place] TBIL is not recommended. Chloride [Moles/Vol] 99 mmol/L 98-107 [facility] Work Phone: Eosinophils/100 WBC (Bld) 0.0 % 0-5 [facility] Work Phone: Glucose [Mass/Vol] 274 mg/dL 74-106 [facility] Work Phone: Comment on above: Glucose result great er than or equal to 200 mg/dLsuggests DIABETES MELLITUS per A.D.A. criteria.Please note revised GLUCOSE reference range effective 2017. Neutrophils (Bld) [#/Vol] 1.2 10*3/uL 2.0-7.7 [facility] Work Phone: Potassium [Moles/Vol] 4.0 mmol/L 3.5-5.1 [facility] Work Phone: Protein [Mass/Vol] 7.6 g/dL 6.4-8.2 [facility] Work Phone: Sodium [Moles/Vol] 131 mmol/L 136-145 [facility] Work Phone: WBC (Bld) [#/Vol] 1.6 10*3/uL 4.4-11.0 [facility] Work Phone: Blood erythrocytes count (nu mber/volume)on 02-08-2021 RBC (Bld) [#/Vol] 4.37 10*6/uL 4.6-6.2 [facility] Work Phone: Blood hemoglobin measurement (mass/volume)on 02-08-2021 Hemoglobin (Bld) [Mass/Vol] 13.4 g/dL 13.0-16.5 [facility] Work Phone: Blood lymphocytes/100 leukoc yteson 02-08-2021 Lymphocytes/100 WBC (Bld) 17.1 % 19-41 [facility] Work Phone: [phone] Blood manual differential co mment interpretation (narrative result)on 02-08-2021 Manual differential comment Jose M (Bld) [Interp] COMMENT [facility] Work Phone: Comment on above: LYMPHOPENIA. Blood monocytes/100 leukocyt eson 02-08-2021 Monocytes/100 WBC (Bld) 4.4 % 0-10 [facility] Work Phone: Blood platelet mean volumeon 02-08-2021 Platelet mean volume (Bld) [Entitic vol] 10.1 fL 6.2-12.0 [facility] Work Phone: Determination of erythrocyte mean corpuscular volume (MCV)on 02-08-2021 MCV (RBC) [Entitic vol] 88.1 fL 80-94 [facility] Work Phone: Hematocrit Auto (Bld) [Volum e fraction]on 02-08-2021 Hematocrit (Bld) [Volume fraction] 38.5 % 40-54 [facility] Work Phone: Laboratory - Chemistry and C hemistry - challengeon 02-08-2021 ALP [Catalytic activity/Vol] 105 U/L 45-117 [facility] Work Phone: ALT [Catalytic activity/Vol] 33 U/L 16-61 [facility] Work Phone: CO2 [Moles/Vol] 19.0 mmol/L 21.0-32.0 [facility] Work Phone: Globulin (S) [Mass/Vol] 4.8 g/dL 2.2-4.2 [facility] Work Phone: Urea nitrogen/Creatinine [Mass ratio] 15.7 mg/mg 10-20 [facility] Work Phone: Laboratory - Hematology and Cell countson 02-08-2021 Basophils/100 WBC (Unsp spec) 0.6 % 0-1 [facility] Work Phone: Erythrocyte distribution width (RBC) [Entitic vol] 44.8 fL 35.1-43.9 [facility] Work Phone: Erythrocyte distribution width (RBC) [Ratio] 13.8 % 11.6-14.6 [facility] Work Phone: Immature granulocytes/100 WBC (Bld) 1.900 % 0.0-0.9 [facility] Work Phone: Comment on above: IG% - Immature Granu locytes (promyelocytes, myelocytes and metamyelocytes) > 1% indicates that a LEFT SHIFT is Present. MCH (RBC) [Entitic mass] 30.7 pg 27.0-32.0 [facility] Work Phone: Neutrophils/100 WBC (Bld) 76.0 % 47-70 [facility] Work Phone: [phone] Nucleated RBC/100 WBC (Bld) [Ratio] 0 % 0-5 [facility] Work Phone: MCHC Auto (RBC) [Mass/Vol]on 02-08-2021 MCHC (RBC) [Mass/Vol] 34.8 g/dL 32-36 [facility] Work Phone: No Panel Informationon 02-08 Estimated Creatinine Clearance Calc 62.29 ml/min [facility] Work Phone: Estimated GFR (MDRD) Amer 63 mL/min >60 [facility] Work Phone: Comment on above: GFR Calc Estimated GFR (MDRD) Non-Af Amer 52 mL/min >60 [facility] Work Phone: Comment on above: Non- GFR Calc Reactive Lymphocytes RARE [facility] Work Phone: Platelets bldon 02-08-2021 Platelets (Bld) [#/Vol] 117 10*3/uL 150-450 [facility] Work Phone: [phone] Review by pathologiston 01-12 Pathologist review Jose M (Unsp spec) [Interp] Reviewed [facility] Work Phone: Comment on above: Previous reported re sult: July lucrecia Edited by: JOHN on 02/08/21:4637Leukopenia, neutropenia and thrombocytopenia. Clinical correlation necessary.Yefri Wyman M.D. 02/08/21 AMENDED REPORT 02/08/21 1547 PATH REV previously reported as: May foll Serum or plasma albumin camacho urement (mass/volume)on 02-08-2021 Albumin [Mass/Vol] 2.8 g/dL 3.2-5.0 [facility] Work Phone: Serum or plasma albumin/glob ulin mass ratioon 02-08-2021 Albumin/Globulin [Mass ratio] 0.6 {ratio} 0.9-2.4 [facility] Work Phone: Serum or plasma calcium camacho urement (mass/volume)on 02-08-2021 Calcium [Mass/Vol] 8.4 mg/dL 8.5-10.1 [facility] Work Phone: Serum or plasma creatinine m easurement (mass/volume)on 02-08-2021 Creatinine [Mass/Vol] 1.53 mg/dL 0.70-1.30 [facility] Work Phone: Comment on above: The validity of the calculated GFR & GFRAA in patients over 70 years has not been determined. Clinical correlation is essential. Serum or plasma urea nitroge n measurement (mass/volume)on 02-08-2021 Urea nitrogen [Mass/Vol] 24 mg/dL 7-18 [facility] Work Phone: Thin prep Papanicolaou smear with manual screeningon 02-08-2021 Thin prep Papanicolaou smear with manual screening 55 U/L 15-37 [facility] Work Phone: Thin prep Papanicolaou smear with manual screening 13 5-15 [facility] Work Phone: Laboratory - Chemistry and C hemistry - challengeon 02-07-2021 Magnesium [Mass/Vol] 1.9 mg/dL 1.6-2.6 [facility] Work Phone: No Panel Informationon 02-07 D-Dimer Quantitative (PE/DVT) 0.96 FEU/ug/m 0.27-0.49 [facility] Work Phone: Comment on above: D-Dimer ELEVATED (>0 .49): Additional studies and clinicalassessments are indicated to conclude diagnosis of:Deep Vein Thrombosis (DVT) or Pulmonary Embolism (PE)CRITICAL VALUE VERIFIED. CALLED TO CLAIRE SHRESTHA02/07/212124 Nikki Flores.RESULTS READ BACK BY SAME . Troponin I High Sensitivity 8 pg/mL 3.0-78.0 [facility] Work Phone: Comment on above: Please Note: [place] t Units and Gender Specific Reference Ranges. For more information see Policy Stat Procedure [place] High Sensitivity Troponin (TNIH) and attachments. Influenza Types A,B Direct FA ([facility]) [facility] Work Phone: Follow Up (General Surgery)o n 03-15-2018 Follow Up (General Surgery) Chief Complaint follow up History of Present Illness 42yo M admitted on 01/10/18 with a Pmhx of HLD, HTN, DM2, Hypothyroidism, morbid obesity, thrombocytopenia, and leukopenia taken to OR on 01/11/18 for acute on chronic gangrenous cholecystitis now s/p laparoscopic cholecystectomy converted to open cholecystectomy with wound vac placement on 01/11/18. Pt. did well postoperatively and discharge on 01/13/18. Currently RUQ wound is healing well with WTD BID. Now here for wound check follow up. Denies headache, dizziness, chest pain, SOB, nausea, vomiting, fevers, chills, and abdominal pain. Review of Systems SEE HPI Past Medical History History of Borderline high cholesterol (272.9) (E78.9) History of diabetes mellitus (V12.29) (Z86.39) History of hypertension (V12.59) (Z86.79) History of obesity (V12.29) (Z86.39) Surgical History History of Gallbladder surgery History of Tonsillectomy Social History Former smoker (V15.82) (Z87.891) No alcohol use Allergies No Known Drug Allergies Recorded By: Eloisa Tsang; 01/25/2018 12:06:40 PM Current Meds Aspirin 81 MG TABS; Therapy: (Recorded:[id number]) to Recorded Dispense: 0 Days ; #: Sufficient; Refill: 0; DICK = N; Record; Last Updated By: Eloisa Tsang; 01/25/2018 12:14:30 PM Fish Oil CAPS; Therapy: (Recorded:[id number]) to Recorded Dispense: 0 Days ; #: Sufficient; Refill: 0; DICK = N; Record; Last Updated By: Eloisa Tsang; 01/25/2018 12:14:30 PM Levothyroxine Sodium 100 MCG Oral Tablet; Therapy: (Recorded:[id number]) to Recorded Dispense: 0 Days ; #: Sufficient; Refill: 0; DICK = N; Record; Last Updated By: Eloisa Tsang; 01/25/2018 12:14:30 PM Lisinopril 20 MG Oral Tablet; Therapy: (Recorded:[id number]) to Recorded Dispense: 0 Days ; #: Sufficient; Refill: 0; DICK = N; Record; Last Updated By: Eloisa Tsang; 01/25/2018 12:14:30 PM Lovastatin 20 MG Oral Tablet; Therapy: (Recorded:[id number]) to Recorded Dispense: 0 Days ; #: Sufficient; Refill: 0; DICK = N; Record; Last Updated By: Eloisa Tsang; 01/25/2018 12:14:30 PM Magnesium 250 MG Oral Tablet; Therapy: (Recorded:[id number]) to Recorded Dispense: 0 Days ; #: Sufficient; Refill: 0; DICK = N; Record; Last Updated By: Eloisa Tsang; 01/25/2018 12:14:30 PM MetFORMIN HCl - 500 MG Oral Tablet; Therapy: (Recorded:[id number]) to Recorded Dispense: 0 Days ; #: Sufficient; Refill: 0; DICK = N; Record; Last Updated By: Eloisa Tsang; 01/25/2018 12:14:30 PM Metoprolol Tartrate 50 MG Oral Tablet; Therapy: (Recorded:[id number]) to Recorded Dispense: 0 Days ; #: Sufficient; Refill: 0; DICK = N; Record; Last Updated By: Eloisa Tsang; 01/25/2018 12:14:30 PM NovoLIN 70/30 SUSP; Therapy: (Recorded:[id number]) to Recorded Dispense: 0 Days ; #: Sufficient; Refill: 0; DICK = N; Record; Last Updated By: Eloisa Tsang; 01/25/2018 12:14:30 PM Vitamin D (Ergocalciferol) 79759 UNIT Oral Capsule; Therapy: (Recorded:[id number]) to Recorded Dispense: 0 Days ; #: Sufficient; Refill: 0; DICK = N; Record; Last Updated By: Eloisa Tsang; 01/25/2018 12:14:30 PM Vitals Vital Signs Recorded: 15Mar2018 12:55PM Yojlcvwzevz84.6 F Heart Ltjm533 Xisnhgkw938 Xglqrqgmh05 Height5 ft 10 in Wayjpg679 lb BMI Jqtewsxlpz11.43 BSA Calculated2.94 Pain Scale2 Physical Exam AANDOx3, no neuro deficits, respirations even and unlabored, S1/S2 present, abdomen soft, non-tender, non-distended, RUQ with healing surgical incision with pink healthy granulation tissue, remainder of skin is warm, dry, and intact, and SHELTON WNL. Provider Impressions 42yo M admitted s/p open cholecystectomy on 01/11/18 for acute on chronic gangrenous cholecystitis. Plan: - Continue WTD RUQ dressing change BID: pack with 1 inch moistened nugauze and cover with dry ABD and tape - Use abdominal binder, helps improve support and decrease tape use - Continue to Rotate tape locations - Don't apply any lotions or ointments to wound - Follow up in 1 month for wound check - Call with any questions, concerns, or erythema, drainage, swelling, pain, fevers, or chills Verona Martinez, MSN, SUBGRADE ROLLER OPERATOR, AG-ACNP, BRAKE REPAIR MECHANIC, ERIN, [place]. [phone] Patient Discussion/Summary See above. TimeTime Stamp_[facility]: Time Spent With Patient: 15 minutes of which greater than 50 percent was spent counseling and or coordinating care. Signatures Electronically signed by : Verona Martinez APRN-CUPOLA MECHANIC; Mar 15 2018 4:25PM EST (Author) Normal [facility] Follow Up (General Surgery)o n 02-20-2018 Follow Up (General Surgery) Chief Complaint follow up. No problems to report History of Present Illness 42yo M admitted on 01/10/18 with a Pmhx of HLD, HTN, DM2, Hypothyroidism, morbid obesity, thrombocytopenia, and leukopenia taken to OR on 01/11/18 for acute on chronic gangrenous cholecystitis now s/p laparoscopic cholecystectomy converted to open cholecystectomy with wound vac placement on 01/11/18. Pt. did well postoperatively and discharge on 01/13/18. 01/25/18 wound vac removed for wound appeared infected and WTD and applied BID dressing changes done by home care nurse and pt. and his mother. Denies headache, dizziness, chest pain, SOB, nausea, vomiting, fevers, chills, and abdominal pain. Adult Risk Screening: Patient declined to answer all the above questions within the Adult Risk Screening. Review of Systems SEE HPI Past Medical History History of Borderline high cholesterol (272.9) (E78.9) History of diabetes mellitus (V12.29) (Z86.39) History of hypertension (V12.59) (Z86.79) History of obesity (V12.29) (Z86.39) Surgical History History of Gallbladder surgery History of Tonsillectomy Social History Former smoker (V15.82) (Z87.891) No alcohol use Allergies No Known Drug Allergies Recorded By: Eloisa Tsang; 01/25/2018 12:06:40 PM Current Meds Aspirin 81 MG TABS; Therapy: (Recorded:[id number]) to Recorded Dispense: 0 Days ; #: Sufficient; Refill: 0; DICK = N; Record; Last Updated By: Eloisa Tsang; 01/25/2018 12:14:30 PM Fish Oil CAPS; Therapy: (Recorded:[id number]) to Recorded Dispense: 0 Days ; #: Sufficient; Refill: 0; DICK = N; Record; Last Updated By: Eloisa Tsang; 01/25/2018 12:14:30 PM Levothyroxine Sodium 100 MCG Oral Tablet; Therapy: (Recorded:[id number]) to Recorded Dispense: 0 Days ; #: Sufficient; Refill: 0; DICK = N; Record; Last Updated By: Eloisa Tsang; 01/25/2018 12:14:30 PM Lisinopril 20 MG Oral Tablet; Therapy: (Recorded:50Izh1127) to Recorded Dispense: 0 Days ; #: Sufficient; Refill: 0; DICK = N; Record; Last Updated By: Eloisa Tsang; 01/25/2018 12:14:30 PM Lovastatin 20 MG Oral Tablet; Therapy: (Recorded:[id number]) to Recorded Dispense: 0 Days ; #: Sufficient; Refill: 0; DICK = N; Record; Last Updated By: Eloisa Tsang; 01/25/2018 12:14:30 PM Magnesium 250 MG Oral Tablet; Therapy: (Recorded:[id number]) to Recorded Dispense: 0 Days ; #: Sufficient; Refill: 0; DICK = N; Record; Last Updated By: Eloisa Tsang; 01/25/2018 12:14:30 PM MetFORMIN HCl - 500 MG Oral Tablet; Therapy: (Recorded:[id number]) to Recorded Dispense: 0 Days ; #: Sufficient; Refill: 0; DICK = N; Record; Last Updated By: Eloisa Tsang; 01/25/2018 12:14:30 PM Metoprolol Tartrate 50 MG Oral Tablet; Therapy: (Recorded:[id number]) to Recorded Dispense: 0 Days ; #: Sufficient; Refill: 0; DICK = N; Record; Last Updated By: Eloisa Tsang; 01/25/2018 12:14:30 PM NovoLIN 70/30 SUSP; Therapy: (Recorded:[id number]) to Recorded Dispense: 0 Days ; #: Sufficient; Refill: 0; DICK = N; Record; Last Updated By: Eloisa Tsang; 01/25/2018 12:14:30 PM Vitamin D (Ergocalciferol) 84471 UNIT Oral Capsule; Therapy: (Recorded:[id number]) to Recorded Dispense: 0 Days ; #: Sufficient; Refill: 0; DICK = N; Record; Last Updated By: Eloisa Tsang; 01/25/2018 12:14:30 PM Vitals Vital Signs Recorded: [id number] 01:15PM Mhwklpvynxd71.5 F Heart Rate89 Ayxcqqdx387 Fmlirtclv78 Height5 ft 10 in Wlrpei464 lb BMI Tzmownlxva70.85 BSA Calculated2.93 Physical Exam AANDOx3, no neuro deficits, respirations even and unlabored, S1/S2 present, abdomen soft, non-tender, non-distended, RUQ with healing surgical incision with pink healthy granulation tissue, some surrounding tissue slightly irritated with mild erythema 2/2 frequent tape changes and use, remainder of skin is warm, dry, and intact, and SHELTON WNL. Provider Impressions 42yo M admitted on 01/10/18 with a Pmhx of HLD, HTN, DM2, Hypothyroidism, morbid obesity, thrombocytopenia, and leukopenia taken to OR on 01/11/18 for acute on chronic gangrenous cholecystitis now s/p laparoscopic cholecystectomy converted to open cholecystectomy with wound vac placement on 01/11/18. Plan: - Continue WTD RUQ, pack with 1 inch moistened nuguaze and cover with dry ABD and tape. Do BID via home nurse and pt. or mother (who have both been doing the dressing changes at this time) - Use abdominal binder, helps improve support and decrease tape use - Rotate tape locations - Don't apply any lotions or ointments to wound - Follow up in 3 weeks for wound check Verona Martinez, MSN, SUBGRADE ROLLER OPERATOR, AG-ACNP, BRAKE REPAIR MECHANIC, ERIN, CCR[place]. [phone] Patient Discussion/Summary Twice a day remove packing from the wound. Cleanse wound with normal saline and pat dry. Wet nuguaze with normal saline and squeeze until liquid no longer drips from gauze. Gently pack gauze into wound until slight resistance is met; do not over pack as this can delay healing. Cover with a dry sterile dressing and use paper tape to secure. Call the office for any signs or symptoms of infection including redness of the wound, purulent drainage from the wound, foul smelling drainage from the wound, or any new/concerning symptoms. TimeTime Stamp_: Time Spent With Patient: 15 minutes of which greater than 50 percent was spent counseling and or coordinating care. Signatures Electronically signed by : Verona Martinez APRN-CUPOLA MECHANIC; Feb 20 2018 1:40PM EST (Author) Normal [facility] Follow Up (General Surgery)o n 02-06-2018 Follow Up (General Surgery) Chief Complaint two week follow up visit. History of Present Illness 42yo M admitted on 01/10/18 with a Pmhx of HLD, HTN, DM2, Hypothyroidism, morbid obesity, thrombocytopenia, and leukopenia taken to OR on 01/11/18 for acute on chronic gangrenous cholecystitis now s/p laparoscopic cholecystectomy converted to open cholecystectomy with wound vac placement on 01/11/18. Pt. did well postoperatively and discharge on 01/13/18. 01/25/18 presented to clinic for post op check complaining of foul smelling odor from wound vac, wound vac removed at that time and WTD kerlix and ABD applied for BID dressing changes done by home care nurse and his mother. Denies headache, dizziness, chest pain, SOB, nausea, vomiting, fevers, chills, and abdominal pain. Review of Systems SEE HPI Past Medical History History of Borderline high cholesterol (272.9) (E78.9) History of diabetes mellitus (V12.29) (Z86.39) History of hypertension (V12.59) (Z86.79) History of obesity (V12.29) (Z86.39) Surgical History History of Gallbladder surgery History of Tonsillectomy Social History Former smoker (V15.82) (Z87.891) No alcohol use Allergies No Known Drug Allergies Recorded By: Eloisa Tsang; 01/25/2018 12:06:40 PM Current Meds Aspirin 81 MG TABS; Therapy: (Recorded:[id number]) to Recorded Dispense: 0 Days ; #: Sufficient; Refill: 0; DICK = N; Record; Last Updated By: Eloisa Tasng; 01/25/2018 12:14:30 PM Fish Oil CAPS; Therapy: (Recorded:[id number]) to Recorded Dispense: 0 Days ; #: Sufficient; Refill: 0; DICK = N; Record; Last Updated By: Eloisa Tsang; 01/25/2018 12:14:30 PM Levothyroxine Sodium 100 MCG Oral Tablet; Therapy: (Recorded:[id number]) to Recorded Dispense: 0 Days ; #: Sufficient; Refill: 0; DICK = N; Record; Last Updated By: Eloisa Tsang; 01/25/2018 12:14:30 PM Lisinopril 20 MG Oral Tablet; Therapy: (Recorded:[id number]) to Recorded Dispense: 0 Days ; #: Sufficient; Refill: 0; DICK = N; Record; Last Updated By: Eloisa Tsang; 01/25/2018 12:14:30 PM Lovastatin 20 MG Oral Tablet; Therapy: (Recorded:[id number]) to Recorded Dispense: 0 Days ; #: Sufficient; Refill: 0; DICK = N; Record; Last Updated By: Eolisa Tsang; 01/25/2018 12:14:30 PM Magnesium 250 MG Oral Tablet; Therapy: (Recorded:[id number]) to Recorded Dispense: 0 Days ; #: Sufficient; Refill: 0; DICK = N; Record; Last Updated By: Eloisa Tsang; 01/25/2018 12:14:30 PM MetFORMIN HCl - 500 MG Oral Tablet; Therapy: (Recorded:[id number]) to Recorded Dispense: 0 Days ; #: Sufficient; Refill: 0; DICK = N; Record; Last Updated By: Eloisa Tsang; 01/25/2018 12:14:30 PM Metoprolol Tartrate 50 MG Oral Tablet; Therapy: (Recorded:[id number]) to Recorded Dispense: 0 Days ; #: Sufficient; Refill: 0; DICK = N; Record; Last Updated By: Eloisa Tsang; 01/25/2018 12:14:30 PM NovoLIN 70/30 SUSP; Therapy: (Recorded:[id number]) to Recorded Dispense: 0 Days ; #: Sufficient; Refill: 0; DICK = N; Record; Last Updated By: Eloisa Tsang; 01/25/2018 12:14:30 PM Vitamin D (Ergocalciferol) 54244 UNIT Oral Capsule; Therapy: (Recorded:[id number]) to Recorded Dispense: 0 Days ; #: Sufficient; Refill: 0; DICK = N; Record; Last Updated By: Eloisa Tsang; 01/25/2018 12:14:30 PM Vitals Vital Signs Recorded: 06Feb2018 12:53PM Yeyrdbwclgu54.6 F Heart Rate76 Pinhmabo740 Cufnczqnu57 Height5 ft 10 in Rehcpn841 lb BMI Kkjrjlmpbb15.85 BSA Calculated2.93 Physical Exam AANDOx3, no neuro deficits, respirations even and unlabored, S1/S2 present, abdomen soft, non-tender, non-distended, RUQ with healing surgical incision with pink healthy granulation tissue (approx. 6inch in length x 1 inch in width and depth) skin is warm, dry, and intact, and SHELTON WNL. Provider Impressions 42yo M admitted on 01/10/18 with a Pmhx of HLD, HTN, DM2, Hypothyroidism, morbid obesity, thrombocytopenia, and leukopenia taken to OR on 01/11/18 for acute on chronic gangrenous cholecystitis now s/p laparoscopic cholecystectomy converted to open cholecystectomy with wound vac placement on 01/11/18. Pt. did well postoperatively and discharge on 01/13/18. 01/25/18 presented to clinic for post op check complaining of foul smelling odor from wound vac, wound vac removed at that time and WTD kerlix and ABD applied for BID dressing changes done by home care nurse and his mother. Plan: - Continue WTD RUQ, pack with 2 inch kerlix and cover with ABD and tape BID via home nurse and/or mother (who have both been doing the dressing changes at this time) - Abdominal binder script sent to home care last week so it will be given to pt. when supplies come in (this will aid in support and decrease wound tension, but also decreased the amount of tape usage causing skin irritation) - 1 Don't apply any lotions, ointments to wound - Follow up in 2 weeks for wound check Verona Martinez, MSN, SUBGRADE ROLLER OPERATOR, AG-ACNP, BRAKE REPAIR MECHANIC, ERIN, CCR[place]. [phone] 1 Amended By: Verona Martinez; Feb 06 2018 5:50 PM ESTPatient Discussion/Summary - Continue WTD RUQ, pack with 2 inch kerlix and cover with ABD and tape BID via home nurse and/or mother (who have both been doing the dressing changes at this time) - Abdominal binder script sent to home care last week so it will be given to pt. when supplies come in (this will aid in support and decrease wound tension, but also decreased the amount of tape usage causing skin irritation) - 1 Don't apply any lotions, ointments to wound - Follow up in 2 weeks for wound check . 1 Amended By: Verona Martinez; Feb 06 2018 5:52 PM ESTTimeTime Stamp_[facility]: Time Spent With Patient: 15 minutes of which greater than 50 percent was spent counseling and or coordinating care. Signatures Electronically signed by : Verona Martinez APRN-CUPOLA MECHANIC; Feb 06 2018 5:52PM EST (Author) Normal [facility] Post Op (General Surgery)on 01-25-2018 Post Op (General Surgery) Chief Complaint S/P cholecystectomy History of Present Illness 42yo M admitted on 01/10/18 with a Pmhx of HLD, HTN, DM2, Hypothyroidism, morbid obesity, thrombocytopenia, and leukopenia taken to OR on 01/11/18 for acute on chronic gangrenous cholecystitis now s/p laparoscopic cholecystectomy converted to open cholecystectomy with wound vac placement on 01/11/18. Pt. did well postoperatively and discharge on 01/13/18. Pt. presents to clinic for post op check complaining of foul smelling odor from wound vac. Home care see's pt. and last changed wound vac 01/22/18Monday. Denies headache, dizziness, chest pain, SOB, nausea, vomiting, fevers, chills, and abdominal pain. Past Medical History History of Borderline high cholesterol (272.9) (E78.9) History of diabetes mellitus (V12.29) (Z86.39) History of hypertension (V12.59) (Z86.79) History of obesity (V12.29) (Z86.39) Surgical History History of Gallbladder surgery History of Tonsillectomy Social History Former smoker (V15.82) (Z87.891) No alcohol use Allergies No Known Drug Allergies Recorded By: Eloisa Tsang; 01/25/2018 12:06:40 PM Current Meds Aspirin 81 MG TABS; Therapy: (Recorded:99Dtr2725) to Recorded Dispense: 0 Days ; #: Sufficient; Refill: 0; DICK = N; Record; Last Updated By: Eloisa Tsang; 01/25/2018 12:14:30 PM Fish Oil CAPS; Therapy: (Recorded:56Hqu4337) to Recorded Dispense: 0 Days ; #: Sufficient; Refill: 0; DICK = N; Record; Last Updated By: Eloisa Tsang; 01/25/2018 12:14:30 PM Levothyroxine Sodium 100 MCG Oral Tablet; Therapy: (Recorded:15Upk7696) to Recorded Dispense: 0 Days ; #: Sufficient; Refill: 0; DICK = N; Record; Last Updated By: Eloisa Tsang; 01/25/2018 12:14:30 PM Lisinopril 20 MG Oral Tablet; Therapy: (Recorded:25Uug0691) to Recorded Dispense: 0 Days ; #: Sufficient; Refill: 0; DICK = N; Record; Last Updated By: Eloisa Tsang; 01/25/2018 12:14:30 PM Lovastatin 20 MG Oral Tablet; Therapy: (Recorded:45Cda1322) to Recorded Dispense: 0 Days ; #: Sufficient; Refill: 0; DICK = N; Record; Last Updated By: Eloisa Tsang; 01/25/2018 12:14:30 PM Magnesium 250 MG Oral Tablet; Therapy: (Recorded:25Jan2018) to Recorded Dispense: 0 Days ; #: Sufficient; Refill: 0; DICK = N; Record; Last Updated By: Eloisa Tsang; 01/25/2018 12:14:30 PM MetFORMIN HCl - 500 MG Oral Tablet; Therapy: (Recorded:25Jan2018) to Recorded Dispense: 0 Days ; #: Sufficient; Refill: 0; DICK = N; Record; Last Updated By: Eloisa Tsang; 01/25/2018 12:14:30 PM Metoprolol Tartrate 50 MG Oral Tablet; Therapy: (Recorded:25Jan2018) to Recorded Dispense: 0 Days ; #: Sufficient; Refill: 0; DICK = N; Record; Last Updated By: Eloisa Tsang; 01/25/2018 12:14:30 PM NovoLIN 70/30 SUSP; Therapy: (Recorded:25Jan2018) to Recorded Dispense: 0 Days ; #: Sufficient; Refill: 0; DICK = N; Record; Last Updated By: Eloisa Tsang; 01/25/2018 12:14:30 PM Vitamin D (Ergocalciferol) 11436 UNIT Oral Capsule; Therapy: (Recorded:25Jan2018) to Recorded Dispense: 0 Days ; #: Sufficient; Refill: 0; DICK = N; Record; Last Updated By: Eloisa Tsang; 01/25/2018 12:14:30 PM Vitals Vital Signs Recorded: 25Jan2018 12:06PM Covdygyeqwg31.1 F Height5 ft 10 in Rrwznc457 lb BMI Pgpjcjnxaf39.85 BSA Calculated2.93 Pain Scale2 Physical Exam AANDOx3, no neuro deficits, respirations even and unlabored, clear lung sounds to auscultation, S1/S2 present no R/M/G present, abdomen soft, non-tender, non-distended, 3 incisions with mary carmen closing laparoscopic incision sites (no surrounding erythema, drainage, swelling), and RUQ wound vac removed revealing healthy pink granulation tissue and on the inferior portion yellow fibrinous material, foul smelling odor, remainder of skin is warm, dry, and intact, and SHELTON WNL. Orders SocHx: Former smoker Tobacco Use Screening; Status:Complete; Done: [id number] Perform:Not Applicable;Ordered; For:SocHx: Former smoker; Ordered By:Eloisa Tsang; Provider Impressions 42yo M admitted on 01/10/18 with a Pmhx of HLD, HTN, DM2, Hypothyroidism, morbid obesity, thrombocytopenia, and leukopenia taken to OR on 01/11/18 for acute on chronic gangrenous cholecystitis now s/p laparoscopic cholecystectomy converted to open cholecystectomy with wound vac placement on 01/11/18. Pt. presents to clinic for post op check complaining of foul smelling odor from wound vac. Home care see's pt. and changed wound vac last on 01/22/18Monday. Plan: - Removed wound vac - WTD dressing with kerlix, ABD, paper tape BID - Mother instructed how to do the dressing changes - Home care to see pt. tomorrow - Faxed form to family services per pt. request so he could still receive food stamps - Follow up in 2 weeks - Call with any questions, concerns, erythema, drainage, swelling, pain, fevers, or chills Seen and evaluated with Dr. Maria R Martinez, MSN, SUBGRADE ROLLER OPERATOR, AG-ACNP, BRAKE REPAIR MECHANIC, ERIN, CCRN Trauma Surgery p. [phone] Patient Discussion/Summary - Removed wound vac - Wet to dry dressing with kerlix, ABD, paper tape BID (moisten Kerlix with sterile water or normal saline, squeeze out any excess water, pack into wound with Q-tip, cover with dry abdominal pad and secure with paper tape) as instructed in clinic - Mother instructed how to do the dressing changes two times a day - Home care to see pt. tomorrow - Faxed form to family services per pt. request so he could still receive food stamps - Follow up in 2 weeks - Call with any questions, concerns, erythema, drainage, swelling, pain, fevers, or chills . TimeTime Stamp_: Time Spent With Patient: 30 minutes of which greater than 50 percent was spent counseling and or coordinating care. Signatures Electronically signed by : Verona Martinez APRN-CUPOLA MECHANIC; Jan 25 2018 1:36PM EST (Author) Normal [employer] ABO/RH GROUP TESTon 01-15-20 18 ABO TYPE Canceled Normal [facility] Comment on above: Order Comment: TEST ABO/RH GROUP TEST WAS CANCELLED, 01/14/2018 03:39 No specimen received. Performed By: #### C BC ####[id number] [place] [address] RH TYPE Canceled Normal [facility] Comment on above: Order Comment: TEST ABO/RH GROUP TEST WAS CANCELLED, 01/14/2018 03:39 No specimen received. Performed By: #### C BC ####[id number] [place] [address] CBCon 01-13-2018 Erythrocyte distribution width Auto Ratio (RBC) 15.0 % High 11.5 - 14.5 [facility] Comment on above: Performed By: #### C BC ####[id number] [place] [address] Hematocrit Auto Volume Fraction (Bld) 28.0 % Low 41.0 - 52.0 [facility] Comment on above: Performed By: #### C BC ####[id number] [place] [address] Hemoglobin mass conc (Bld) 9.6 g/dL Low 13.5 - 17.5 [facility] Comment on above: Performed By: #### C BC ####[id number] [place] [address] MCHC Auto mass conc (RBC) 34.3 g/dL Normal 32.0 - 36.0 [facility] Comment on above: Performed By: #### C BC ####[id number] [place] [address] MCV Auto Entitic volume (RBC) 96 fL Normal 80 - 100 [facility] Comment on above: Performed By: #### C BC ####[id number] [place] [address] Nucleated RBC/100 WBC Ratio (Bld) 0.0 /100 WBC Normal 0.0-0.0 [facility] Comment on above: Performed By: #### C BC ####[id number] [place] [address] Platelets Auto #/vol (Bld) 153 10*3/uL Normal 150 - 450 [facility] Comment on above: Performed By: #### C BC ####[id number] [place] [address] RBC Auto #/vol (Bld) 2.93 x10E12/L Low 4.50 - 5.90 [facility] Comment on above: Performed By: #### C BC ####[id number] [place] [address] WBC Auto #/vol (Bld) 4.0 10*3/uL Low 4.4 - 11.3 [facility] Comment on above: Performed By: #### C BC ####[id number] [place] [address] COMPREHENSIVE PANELon 2017 Albumin mass conc 3.4 g/dL Normal 3.4 - 5.0 [facility] Comment on above: Performed By: #### C BC ####[id number] [place] [address] ALP enzyme act/vol 117 U/L Normal 33 - 120 [facility] Comment on above: Performed By: #### C BC ####[id number] [place] [address] ALT enzyme act/vol 20 U/L Normal 10 - 52 [facility] Comment on above: Result Comment: Tricia ents treated with Sulfasalazine may generate falsely decreased results for ALT. Performed By: #### C BC ####[id number] [place] [address] Anion gap 3 molar conc 17 mmol/L Normal 10 - 20 [facility] Comment on above: Performed By: #### C BC ####[id number] [place] [address] AST enzyme act/vol 43 U/L High 9 - 39 [facility] Comment on above: Performed By: #### C BC ####[id number] [place] [address] Bilirubin mass conc 1.2 mg/dL Normal 0.0 - 1.2 [facility] Comment on above: Performed By: #### C BC ####[id number] [place] [address] Calcium mass conc 9.6 mg/dL Normal 8.6 - 10.6 [facility] Comment on above: Performed By: #### C BC ####[id number] [place] [address] Chloride molar conc 98 mmol/L Normal 98 - 107 [facility] Comment on above: Performed By: #### C BC ####[id number] [place] [address] Creatinine mass conc 1.25 mg/dL Normal 0.50 - 1.30 [facility] Comment on above: Performed By: #### C BC ####[id number] [place] [address] GFR- AM. >60 Normal >60 [facility] Comment on above: Result Comment: CALC ULATIONS OF ESTIMATED GFR ARE PERFORMED USING THE MDRD STUDY EQUATION FOR THE IDMS-TRACEABLE CREATININE METHODS. CLIN CHEM 2007;53:766-72 Performed By: #### C BC ####[id number] [place] [address] GFR-NON AM. >60 Normal >60 [facility] Comment on above: Performed By: #### C BC ####[id number] [place] [address] Glucose mass conc 161 mg/dL High 74 - 99 [facility] Comment on above: Performed By: #### C BC ####[id number] [place] [address] HCO3 molar conc (Bld) 23 mmol/L Normal 21 - 32 [facility] Comment on above: Performed By: #### C BC ####[id number] [place] [address] Potassium molar conc 4.2 mmol/L Normal 3.5 - 5.3 [facility] Comment on above: Performed By: #### C BC ####[id number] [place] [address] Protein mass conc 6.5 g/dL Normal 6.4 - 8.2 [facility] Comment on above: Performed By: #### C BC ####[id number] [place] [address] Sodium molar conc 134 mmol/L Low 136 - 145 [facility] Comment on above: Performed By: #### C BC ####[id number] [place] [address] Urea nitrogen mass conc 15 mg/dL Normal 6 - [address] [facility] Comment on above: Performed By: #### C BC ####[id number] [place] [address] GLUCOSE-POCTon 01-13-2018 Glucose mass conc 178 mg/dL High 74 - 99 [facility] Comment on above: Performed By: #### C BC ####[id number] [place] [address] Glucose mass conc 174 mg/dL High 74 - 99 [facility] Comment on above: Performed By: #### G RENU ####[id number] [place] [address] CBCon 01-12-2018 Erythrocyte distribution width Auto Ratio (RBC) 15.1 % High 11.5 - 14.5 [facility] Comment on above: Performed By: #### C BC ####[id number] [place] [address] Hematocrit Auto Volume Fraction (Bld) 29.6 % Low 41.0 - 52.0 [facility] Comment on above: Performed By: #### C BC ####[id number] [place] [address] Hemoglobin mass conc (Bld) 10.3 g/dL Low 13.5 - 17.5 [facility] Comment on above: Performed By: #### C BC ####[id number] [place] [address] MCHC Auto mass conc (RBC) 34.8 g/dL Normal 32.0 - 36.0 [facility] Comment on above: Performed By: #### C BC ####[id number] [place] [address] MCV Auto Entitic volume (RBC) 96 fL Normal 80 - 100 [facility] Comment on above: Performed By: #### C BC ####[id number] [place] [address] Nucleated RBC/100 WBC Ratio (Bld) 0.0 /100 WBC Normal 0.0-0.0 [facility] Comment on above: Performed By: #### C BC ####[id number] [place] [address] Platelets Auto #/vol (Bld) 150 10*3/uL Normal 150 - 450 [facility] Comment on above: Performed By: #### C BC ####[id number] [place] [address] RBC Auto #/vol (Bld) 3.09 x10E12/L Low 4.50 - 5.90 [facility] Comment on above: Performed By: #### C BC ####[id number] [place] [address] WBC Auto #/vol (Bld) 4.0 10*3/uL Low 4.4 - 11.3 [facility] Comment on above: Performed By: #### C BC ####[id number] [place] [address] COMPREHENSIVE PANELon 2017 Albumin mass conc 3.4 g/dL Normal 3.4 - 5.0 [facility] Comment on above: Performed By: #### G RENU ####[id number] [place] [address] ALP enzyme act/vol 115 U/L Normal 33 - 120 [facility] Comment on above: Performed By: #### G RENU ####[id number] [place] [address] ALT enzyme act/vol 25 U/L Normal 10 - 52 [facility] Comment on above: Result Comment: Tricia ents treated with Sulfasalazine may generate falsely decreased results for ALT. Performed By: #### G RENU ####[id number] [place] [address] Anion gap 3 molar conc 19 mmol/L Normal 10 - 20 [facility] Comment on above: Performed By: #### G RENU ####[id number] [place] [address] AST enzyme act/vol 49 U/L High 9 - 39 [facility] Comment on above: Performed By: #### G RENU ####[id number] [place] [address] Bilirubin mass conc 1.4 mg/dL High 0.0 - 1.2 [facility] Comment on above: Performed By: #### G RENU ####[id number] [place] [address] Calcium mass conc 9.1 mg/dL Normal 8.6 - 10.6 [facility] Comment on above: Performed By: #### G RENU ####[id number] [place] [address] Chloride molar conc 98 mmol/L Normal 98 - 107 [facility] Comment on above: Performed By: #### G RENU ####[id number] [place] [address] Creatinine mass conc 1.26 mg/dL Normal 0.50 - 1.30 [facility] Comment on above: Performed By: #### G RENU ####[id number] [place] [address] GFR- AM. >60 Normal >60 [facility] Comment on above: Result Comment: CALC ULATIONS OF ESTIMATED GFR ARE PERFORMED USING THE MDRD STUDY EQUATION FOR THE IDMS-TRACEABLE CREATININE METHODS. CLIN CHEM 2007;53:766-72 Performed By: #### G RENU ####[id number] [place] [address] GFR-NON AM. >60 Normal >60 [facility] Comment on above: Performed By: #### G RENU ####[id number] [place] [address] Glucose mass conc 184 mg/dL High 74 - 99 [facility] Comment on above: Performed By: #### G RENU ####[id number] [place] [address] HCO3 molar conc (Bld) 20 mmol/L Low 21 - 32 [facility] Comment on above: Performed By: #### G RENU ####[id number] [place] [address] Potassium molar conc 3.7 mmol/L Normal 3.5 - 5.3 [facility] Comment on above: Performed By: #### G RENU ####[id number] [place] [address] Protein mass conc 6.1 g/dL Low 6.4 - 8.2 [facility] Comment on above: Performed By: #### G RENU ####[id number] [place] [address] Sodium molar conc 133 mmol/L Low 136 - 145 [facility] Comment on above: Performed By: #### G RENU ####[id number] [place] [address] Urea nitrogen mass conc 14 mg/dL Normal 6 - [address] [facility] Comment on above: Performed By: #### G RENU ####[id number] [place] [address] Consult-Wound Careon 018 Consult-Wound Care Service:Service: [facility] Care Consult:Reason: wound VAC application Allergies: NKDA: wool: Hives/Urticaria Assessment:Wound location: right abdomen size: 3.5cm x 20cm x 4.5cm undermining: none tracking: noneWound type: surgicalWound bed: adipose tissue, cleanDraining: serosanguinousPeriwound skin: intact, lap sites with staplesTherapeutic surface: versacare bed Recommendation: Irrigate with normal saline or wound cleanser. Apply wound VACtherapy. Wound Vac applied to abdominal wound. (0) Mepitel (1) spiraled black foam Pressure; 125mmHg continuous suctionPlan: Change wound Vac twice a week (Monday/Monday). If patient is discharged prior to next dressing change, please disconnect VACmachine, remove foam dressing, and place machine in one of the designatedpick locations (TSICU, [place] [address], [place] 5, [place] [address], [place] [address]). If nocomparable home VAC is delivered prior to discharge: Pack wound with wet-tomoist NS kerlix and cover with a dry sterile dressing. Patient cannot leavehospital with VAC in place unless patient is being transferred to [facility]. Patient to receive home VAC machine prior to discharge. In this case, foamdressing can stay in place; disconnect from hospital VAC and connect to homeVAC prior to discharge. Plan: call with questions or if condition changes.Gabrielle Ware RN, BSN, ONPager [phone] Electronic Signatures:Gabrielle Ware (FRANSISCA) (Signed 12-Jan-2018 13:02)Authored: Service, Allergies, Assessment/Recommendatio ns,Signature/Cosignature /Attestation Last Updated: 12-Jan-2018 13:02 by Gabrielle Ware) Normal [facility] Daily Progress Note-Acute Ca re Surgeryon 01-12-2018 Protein mass conc Service: Acute Care Surgery Subjective Data:CHRISTA SILVERMAN is a 42 year old Male who is Hospital Day # 3 and POD #1 forLaparoscopy, laparotomy, open cholecystectomy. He is seen by the bedside. He feels his pain is well controlled. He deniesfever/chill, n/v/d. He has no other complaint. He has urinated since his foleyis removed. He has no BM or flatulence yet. Overnight Events: Patient had an uneventful night. Objective Data: Objective Information: T [id number] 10/7191%Date/Time01/12 8: 8: 8: 8: 10:22Range(35.9C - 36.4C ) (101 - 108 ) (18 - 20 ) (104 - 138 )/ (67 - 73 )(92% - 96% ) Pain with Activity reported at 01/12 9:13: 5Pain at Rest reported at 01/12 9:13: 5 Physical Exam: Constitutional: Alert and awake. No acute distress.Eyes: Anicteric scleraeRespiratory/Thora x: Non-labored breathing on room air. CTAB.Cardiovascular: Regular rate and rhythm. No murmurs.Gastrointestinal : Abd Obese, soft, non-tender. 20 x 3 x 5 RUQ incision c/d/i;minimal bleeding soaking the kerlix packed in the incision.Dressing changedMusculoskeletal: SHELTON.Neurological: ALTERNATIVE DISPUTE RESOLUTION MEDIATOR grossly intact. No focal deficits.Psychological: Appropriate mood and behavior Medication: Medications: CARDIOVASCULAR AGENTS: 1. Metoprolol Tartrate: 50 mg Oral Every 12 Hours CENTRAL NERVOUS SYSTEM AGENTS: 1. Acetaminophen: 650 mg Oral Every 4 Hours2. HYDROmorphone Injectable: 0.2 mg IntraVenous Push Every 4 Hours PRN 3. Ketorolac Injectable: 15 mg IntraVenous Push Every 6 Hours4. oxyCODONE Immediate Release: 5 mg Oral Every 6 Hours PRN5. oxyCODONE Immediate Release: 10 mg Oral Every 6 Hours PRN6. Ondansetron Injectable: 4 mg IntraVenous Push Every 6 Hours PRN COAGULATION MODIFIERS: 1. Enoxaparin SubCutaneous: 60 mg SubCutaneous Every 12 Hours GASTROINTESTINAL AGENTS: 1. Docusate: 100 mg Oral 2 Times a Day2. Sennosides: 1 tablet(s) Oral 2 Times a Day PRN HORMONES/HORMONE MODIFIERS: 1. Levothyroxine: 100 microgram(s) Oral Daily METABOLIC AGENTS: 1. Insulin Lispro Mild Corrective Scale: unit(s) SubCutaneous 3 Times a DayBefore Meals2. Dextrose 50% in Water Injectable: 25 gram(s) IntraVenous Push Every 15Minutes PRN3. Glucagon Injectable: 1 mg IntraMuscular Every 15 Minutes PRN NUTRITIONAL PRODUCTS: 1. Lactated Ringers Infusion: 1000 mL IntraVenous TOPICAL AGENTS: 1. Lidocaine 5% TransDermal: 1 patch TransDermal Every 24 Hours Recent Lab Results: Results: I have reviewed these laboratory results: Glucose_POCT Trending View [id number]-Inp-[id number] 08:21:00 11-Jan-2018 21:36:00 11-Jan-2018 16:01:00Glucose-IMCE808 H 156 H 176 H Complete Blood Count Trending View [id number]-Mko-0700 06:55:00 11-Jan-2018 06:45:00White Blood Cell Count4.0 L 2.6 LNucleated Erythrocyte Count0.0 0.0Red Blood Cell Count3.09 L 3.38 LHGB10.3 L 11.5 LHCT29.6 L 32.2 LMCV96 16CHIN36.8 35.5CPO598 157RDW-CV15.1 H 15.2 H Comprehensive Metabolic Panel Trending View [id number]-Qcf-8692 06:55:00 11-Jan-2018 06:45:00Glucose, Ovecv300 H 182 RTA564 L 136K3.7 3.5CL98 101Bicarbonate, Serum20 L 20 LAnion Gap, Serum19 93THG55 93ECVIO6.26 1.44 HGFR-Non >60 53 AGFR->60 64Calcium, Serum9.1 9.8ALB3.4 3.0UVUA657 154 HT Pro6.1 L 6.9T Bili1.4 H 1.3 HAlanine Aminotransferase, Serum25 23Aspartate Transaminase, Serum49 H 27 Magnesium, Serum 12-Jan-2018 06:55:00 ResultValueMagnesium, Serum 1.11 L Amylase, Serum 11-Jan-2018 06:45:00 ResultValueAmylase, Serum 51 Lipase, Serum 11-Jan-2018 06:45:00 ResultValueLipase, Serum 29 Assessment and Plan:Assessment:A 42 yo M with a PMH significant for HTN, HLD, DM2, Hypothyroidism, morbidobesity, thrombocytopenia, and leukopenia presented to an OSH with RUQ pain.MRCP performed showed stones in the gallbladder, pericholecystic fluid andpossible compression of the bile ducts (c/f Mirizzi's syndrome). On arrival, ptis pain free and afebrile. He underwent open cholecystectomy 01/11. He toleratedthe procedure well. He was able to ambulate and eat on POD #1. # Acute on chronic cholecystitis s/p laparoscopy, laparatomy and opencholecystectomy- stable post-op- repeat labs; replace electrolytes- pain control with scheduled Tylenol, Toradol, Roxicodone 5mg/10mg PRN- Zosyn course completed- wound vac placed by wound care nurse #FENGI- LR 100mL/hr- Diabetic diet- Bowel Regiment - Colace 100mg twice a day, Senokot PRN- Zofran 4mg PRN for nausea #DM- ISS mild #Hx of hypothyroid- 100mg synthroid daily #Hx of HTN- restarted Metoprolol 50mg post-op #ppx- SQH 5000U Disposition- Observe for 2 [address] Patient discussed [facility]ulwinder [facility], ENY6[facility], [id number] SCIP Measures:Urinary Catheter Removed Post-Op Day 2: yesPatient on Beta Helen Prior to Admission: yesRestarted on Beta Helen by Post-Op Day 2: yesProphylactic antibiotics scheduled to be discontinued with 24 hr of anesthesiaend time (48 hr for cardiac surgery): yes Signature/Cosignature/At testation:Attending AttestationI saw and evaluated the patient. I personally obtainedthe perdomo and critical portions of the history and physical exam or wasphysically present for perdomo and critical portions performed by theresident/fellow. I reviewed the resident/fellows documentation and discussedthe patient with the resident/fellow. I agree with the resident/fellowsmedical decision making as documented in the residents note.I personally evaluated the patient (as noted in the above attestation) [id number]/ Additional FindingsI evaluated and examined the patient with the surgical team. I agree with theabove findings, assessment and plan. Recovering wellTolerating POBilirubin stable 1.4Advance diet and activity as toleratedVAC to incision Electronic Signatures:Josh Miramontes) (Signed 12-Jan-2018 16:27)Authored: Signature/Cosignature/At testationCo-Signer: Service, Subjective Data, Objective Data, Assessment and Plan, SCIPMeasures, Signature/Cosignature/At testationSPrem nelson (Resident)) (Signed 12-Jan-2018 13:27)Authored: Service, Subjective Data, Objective Data, Assessment and Plan, SCIPMeasures, Signature/Cosignature/At testation Last Updated: 12-Jan-2018 16:27 by Jsoh Miramontes) Normal [facility] Discharge [id number] 018 Protein mass conc Discharge Orders:Anticipated Discharge Date: Anticipated Discharge [id number]-[id number] Anticipated Discharge Time09:16 Problem List: Admitting Dx: Cholelithiasis: Catalog Name: Calculus of gallbladder without cholecystitiswithout obstruction DNAR: DNAR Statusnone Activity:activity as tolerated. May not shower until follow-up visit sponge bath if needed; do not get woundvac wet. May not drive while taking narcotics. No pushing, pulling, or lifting objects greater than 10 pounds. Weight-bearing Instructions: weight-bearing as tolerated. Diet: Dietregular VAC 1: Vac Siteabdominal Change Dressing2 times a week Contact LayerMepitel Dressing TypeVAC granu foam dressing Target [id number] VAC Cyclecontinuous Wound [id number] Date of Wound Gelaenykojag13/2/2018 Other InstructionsWill be changed twice a week by visiting nurse Call Provider If (Homegoing Patients):Breathing faster than normal. Fever of 100.4 F (38 C) or higher. Chills. Drinking less than normal. Urinating less than normal, over 1 day. Acting very sleepy and difficult to awaken. Vomiting (throwing up) and not able to eat or drink for 12 hours. 3 or more loose, watery bowel movements in 24 hours (diarrhea). Any new concerning symptoms. Hospital Course (Home Care/Gold Form):Hospital Course: Hospital Course: include significant abnormal lab valuesPatient is 42 yo M with a PMH significant for HTN, HLD, DM2, Hypothyroidism,morbid obesity, thrombocytopenia, and leukopenia was transferred from [facility] abdominal pain concerning for choledocholithiasis. On admission his Totalbilirubin was 2.1. CT A/P was performed showing three large stones in thegallbladder. MRCP showed filling defects (4cm) in the gallbladder consistentwith stones, trace pericholecystic fluid, and no gallbladder wall thickening orductal dilations (c/f Mirrizi syndrome). On admission, pt has no abdominalpain, has regular BM and flatulence. On 01/11 he underwent laparoscopy,laparotomy and open cholecystectomy. He has tolerated the procedure well. On01/12 a wound vac was placed. He has resumed eating and started ambulating. Infectious Disease: PPD Statusnot given MRSAno VREno C. Diffno Other Resistant Organismno Isolation Typenone Home Care Orders:Face to Face Certification:Home Care Services Needed: yesSkilled Disciplines Ordered: RN/COMPOUNDING PHARMACY TECHNICIAN, PT, Home Health AideFace to Face Encounter Completed: yesDate of Encounter: [id number] Necessity for Homecare (based on clinical findings):Short-term nursing and home health aid is needed to instruct patient/caregiverto perform wound vac care and dressing change and to monitor for signs andsymptoms of infection or adverse events.Homebound Status: homeboundHomebound Due to::Patient has open wound to the abdomin, measuring 20 x 3 x 5 cm, due to the riskof wound dehiscence and infection status post-surgical open cholecystectomyprocedure and leaving the home is medically contraindicated.Face to Face Completed and Home Care Orders Reviewed: I certify that thispatient is under my care. I have reviewed the information included in the faceto face and certify that the home care services ordered are medically necessaryfor this patient. Home Care Services: Home Care Skilled Serviceassessment, follow up teaching, wound care Type of Assessmentwound vac function, surgical incision condition Assessment: First Home Care Visitday after discharge Teaching: First Home Care Visitday after discharge Wound Care: First Home Care Visitday after discharge Provider FINAL REVIEW of Orders:Final Review: Final Review of Medication Reconciliation and Orders Completedby Physician Reviewing ProviderClementina Avila MD (Resident) at 13-Jan-2018 14:06:28 Appointments:Follow-Up Appointment 01: Physician/Dept/ServiceTr [facility] Scheduled Date/[id number] 14:[address], [facility] [address], [place] [address] Phone [phone] CommentsOrder received after discharge. Follow-Up Appointment 02: Physician[facility]Dept/ServicePr [facility] Provider Call to Schedule inPatient requested appointment not be scheduled Phone [phone] CommentsOrder received after discharge Electronic Signatures:Clementina Avila (Resident)) (Signed 13-Jan-2018 14:07)Authored: Discharge Orders, Transplant Abdominal, Provider FINAL REVIEW ofOrdersJacques Tolliver ( (Resident)) (Signed 13-Jan-2018 13:38)Authored: Transplant Abdominal, Chika Garnett (PT ACC REP) (Signed 16-Jan-2018 16:41)Authored: Discharge Orders, Josh Gil) (Signed 12-Jan-2018 16:56)Co-Signer: Home Care Orders, Provider FINAL REVIEW of OrdersPrem Shahid (Resident)) (Signed 12-Jan-2018 09:37)Authored: Discharge Orders, Hospital Course (Home Care/Gold Form), Home CareOrders, Provider FINAL REVIEW of Orders, Gold Form - Doweler SummaryAlessio Tabares) (Signed 13-Jan-2018 11:50)Authored: Provider FINAL REVIEW of Orders Last Updated: 16-Jan-2018 16:41 by Chika Cortes (PT ACC REP) Normal [facility] GLUCOSE-POCTon 01-12-2018 Glucose mass conc 196 mg/dL High 74 - 99 [facility] Comment on above: Performed By: #### G RENU ####[id number] [place] [address] Glucose mass conc 170 mg/dL High 74 - 99 [facility] Comment on above: Performed By: #### G RENU ####[id number] [place] [address] Glucose mass conc 172 mg/dL High 74 - 99 [facility] Comment on above: Performed By: #### G RENU ####[id number] [place] [address] HEMOGLOBIN A1Con 01-12-2018 Glucose mass conc Canceled Normal [facility] Comment on above: Order Comment: TEST HEMOGLOBIN A1C WAS CANCELLED, 01/12/2018 18:44 DUPLICATE ORDER. Performed By: #### G RENU ####[id number] [place] [address] Hemoglobin A1c/Hemoglobin.total mass fraction (Bld) Canceled Normal [facility] Comment on above: Order Comment: TEST HEMOGLOBIN A1C WAS CANCELLED, 01/12/2018 18:44 DUPLICATE ORDER. Result Comment: Diag nosis of Diabetes-Adults Non-Diabetic: < or = 5.6% Increased risk for developing diabetes: 5.7-6.4% Diagnostic of diabetes: > or = 6.5%. Monitoring of Diabetes Age (y) Therapeutic Goal (%) Adults: >18 <7.0 Pediatrics: 13-18 <7.5 7-12 <8.0 0- 6 7.5-8.5 [place] [employer]. Diabetes Care 33(S1), Mar 2009. Performed By: #### G RENU ####[id number] [place] [address] Glucose mass conc 137 mg/dL Normal [facility] Comment on above: Performed By: #### H BA1E ####[id number] [place] [address] Hemoglobin A1c/Hemoglobin.total mass fraction (Bld) 6.4 % Normal [facility] Comment on above: Result Comment: Diag nosis of Diabetes-Adults Non-Diabetic: < or = 5.6% Increased risk for developing diabetes: 5.7-6.4% Diagnostic of diabetes: > or = 6.5%. Monitoring of Diabetes Age (y) Therapeutic Goal (%) Adults: >18 <7.0 Pediatrics: 13-18 <7.5 7-12 <8.0 0- 6 7.5-8.5 [place] [employer]. Diabetes Care 33(S1), Mar 2009. Performed By: #### H BA1E ####[id number] [place] [address] MAGNESIUMon 01-12-2018 Magnesium mass conc 1.11 mg/dL Low 1.60 - 2.40 [facility] Comment on above: Performed By: #### G RENU ####[id number] [place] [address] AMYLASEon 01-11-2018 Amylase enzyme act/vol 51 U/L Normal 29 - 103 [facility] Comment on above: Performed By: #### A MY ####[id number] [place] [address] CBCon 01-11-2018 Erythrocyte distribution width Auto Ratio (RBC) 15.2 % High 11.5 - 14.5 [facility] Comment on above: Performed By: #### C BC ####[id number] [place] [address] Hematocrit Auto Volume Fraction (Bld) 32.2 % Low 41.0 - 52.0 [facility] Comment on above: Performed By: #### C BC ####[id number] [place] [address] Hemoglobin mass conc (Bld) 11.5 g/dL Low 13.5 - 17.5 [facility] Comment on above: Performed By: #### C BC ####[id number] [place] [address] MCHC Auto mass conc (RBC) 35.7 g/dL Normal 32.0 - 36.0 [facility] Comment on above: Performed By: #### C BC ####[id number] [place] [address] MCV Auto Entitic volume (RBC) 95 fL Normal 80 - 100 [facility] Comment on above: Performed By: #### C BC ####[id number] [place] [address] Nucleated RBC/100 WBC Ratio (Bld) 0.0 /100 WBC Normal 0.0-0.0 [facility] Comment on above: Performed By: #### C BC ####[id number] [place] [address] Platelets Auto #/vol (Bld) 157 10*3/uL Normal 150 - 450 [facility] Comment on above: Performed By: #### C BC ####[id number] [place] [address] RBC Auto #/vol (Bld) 3.38 x10E12/L Low 4.50 - 5.90 [facility] Comment on above: Performed By: #### C BC ####[id number] [place] [address] WBC Auto #/vol (Bld) 2.6 10*3/uL Low 4.4 - 11.3 [facility] Comment on above: Performed By: #### C BC ####[id number] [place] [address] COMPREHENSIVE PANELon 2017 Albumin mass conc 3.8 g/dL Normal 3.4 - 5.0 [facility] Comment on above: Performed By: #### C MP ####[id number] [place] [address] ALP enzyme act/vol 154 U/L High 33 - 120 [facility] Comment on above: Performed By: #### C MP ####[id number] [place] [address] ALT enzyme act/vol 23 U/L Normal 10 - 52 [facility] Comment on above: Result Comment: Tricia ents treated with Sulfasalazine may generate falsely decreased results for ALT. Performed By: #### C MP ####[id number] [place] [address] Anion gap 3 molar conc 19 mmol/L Normal 10 - 20 [facility] Comment on above: Performed By: #### C MP ####[id number] [place] [address] AST enzyme act/vol 27 U/L Normal 9 - 39 [facility] Comment on above: Performed By: #### C MP ####[id number] [place] [address] Bilirubin mass conc 1.3 mg/dL High 0.0 - 1.2 [facility] Comment on above: Performed By: #### C MP ####[id number] [place] [address] Calcium mass conc 9.8 mg/dL Normal 8.6 - 10.6 [facility] Comment on above: Performed By: #### C MP ####[id number] [place] [address] Chloride molar conc 101 mmol/L Normal 98 - 107 [facility] Comment on above: Performed By: #### C MP ####[id number] [place] [address] Creatinine mass conc 1.44 mg/dL High 0.50 - 1.30 [facility] Comment on above: Performed By: #### C MP ####[id number] [place] [address] GFR- AM. 64 mL/min/1.73m2 Normal >60 [facility] Comment on above: Result Comment: CALC ULATIONS OF ESTIMATED GFR ARE PERFORMED USING THE MDRD STUDY EQUATION FOR THE IDMS-TRACEABLE CREATININE METHODS. CLIN CHEM 2007;53:766-72 Performed By: #### C MP ####[id number] [place] [address] GFR-NON AM. 53 mL/min/1.73m2 Abnormal >60 [facility] Comment on above: Performed By: #### C MP ####[id number] [place] [address] Glucose mass conc 182 mg/dL High 74 - 99 [facility] Comment on above: Performed By: #### C MP ####[id number] [place] [address] HCO3 molar conc (Bld) 20 mmol/L Low 21 - 32 [facility] Comment on above: Performed By: #### C MP ####[id number] [place] [address] Potassium molar conc 3.5 mmol/L Normal 3.5 - 5.3 [facility] Comment on above: Performed By: #### C MP ####[id number] [place] [address] Protein mass conc 6.9 g/dL Normal 6.4 - 8.2 [facility] Comment on above: Performed By: #### C MP ####[id number] [place] [address] Sodium molar conc 136 mmol/L Normal 136 - 145 [facility] Comment on above: Performed By: #### C MP ####[id number] [place] [address] Urea nitrogen mass conc 16 mg/dL Normal 6 - [address] [facility] Comment on above: Performed By: #### C MP ####[id number] [place] [address] Clinical Event Mnju-Tyvq-ra examon 01-11-2018 Cholesterol mass conc Event:Topic: Post- op examDetails:Patient seen and examined s/p lap converted to open caleb. Patient doing well. Pain relatively well controlled. Has not voided yet. No n/v af, hr 100, bp 120 systolicGen: nadPulm: unlabored on supplemental O2Abd: soft, appropriately tender to palpation, RUQ incision packed with kerlex,lap incisions covered by island dressings Recs:- ok for diet- mIVF for now, may HLIV later if tolerating PO- continue current pain meds- void check, straight cath if unable to void- labs in AM THERESE Avila [id number] Electronic Signatures:Clementina Avila (Resident)) (Signed 11-Jan-2018 17:04)Authored: Event Last Updated: 11-Jan-2018 17:04 by Clementina Avila (Resident)) Normal [facility] GLUCOSE-POCTon 01-11-2018 Glucose mass conc 156 mg/dL High 74 - 99 [facility] Comment on above: Performed By: #### G RENU ####[id number] [place] [address] Glucose mass conc 176 mg/dL High 74 - 99 [facility] Comment on above: Performed By: #### G RENU ####[id number] [place] [address] Glucose mass conc 200 mg/dL High 74 - 99 [facility] Comment on above: Performed By: #### G RENU ####[id number] [place] [address] Glucose mass conc 224 mg/dL High 74 - 99 [facility] Comment on above: Performed By: #### G RENU ####[id number] [place] [address] Glucose mass conc 175 mg/dL High 74 - 99 [facility] Comment on above: Performed By: #### G RENU ####[id number] [place] [address] HEMOGLOBIN A1Con 01-11-2018 Glucose mass conc 134 mg/dL Normal [facility] Comment on above: Performed By: #### H BA1E ####[id number] [place] [address] Hemoglobin A1c/Hemoglobin.total mass fraction (Bld) 6.3 % Normal [facility] Comment on above: Result Comment: Diag nosis of Diabetes-Adults Non-Diabetic: < or = 5.6% Increased risk for developing diabetes: 5.7-6.4% Diagnostic of diabetes: > or = 6.5%. Monitoring of Diabetes Age (y) Therapeutic Goal (%) Adults: >18 <7.0 Pediatrics: 13-18 <7.5 7-12 <8.0 0- 6 7.5-8.5 [place] [employer]. Diabetes Care 33(S1), Mar 2009. Performed By: #### H BA1E ####[id number] [place] [address] History and Physical - Surgi wilner Update < 30 dayson 01-11-2018 History and Physical - Surgical Update < 30 days History & Physical Reviewed:I have reviewed the History and Physical dated: [id number] and Physical reviewed and relevant findings noted. Patient examined toreview pertinent physical findings.: No significant changesHome Medications Reviewed: no changes notedAllergies Reviewed: no changes notedThis patient has been seen and discussed with the attending physicianresponsible for performing the procedure: yes Signatures/Attestation/C ertification:Attending AttestationI saw and evaluated the patient. I personally obtainedthe perdomo and critical portions of the history and physical exam or wasphysically present for perdomo and critical portions performed by theresident/fellow. I reviewed the resident/fellows documentation and discussedthe patient with the resident/fellow. I agree with the resident/fellowsmedical decision making as documented in the residents note.I personally evaluated the patient (as noted in the above attestation) [id number] Provider Inpatient Certification StatementI certify this patientsneed for inpatient care based on the above documentation including; the orderto admit as inpatient, the anticipated length of stay, diagnosis, problem listand plan of care, and discharge plan. Electronic Signatures:Clementina Avila (Resident)) (Signed 11-Jan-2018 07:32)Authored: History & Physical Reviewed, Signatures/Attestation/C ertificationRusty Thakkar) (Signed 16-Jan-2018 13:59)Authored: Signatures/Attestation/C ertificationCo-Signer: History & Physical Reviewed, Signatures/Attestation/C ertification Last Updated: 16-Jan-2018 13:59 by Rusty Thakkar) Normal [facility] LIPASEon 01-11-2018 Lipase enzyme act/vol 29 U/L Normal 9 - 82 [facility] Comment on above: Result Comment: Carmen puncture immediately after or during the administration of Metamizole may lead to falsely low results. Testing should be performed immediately prior to Metamizole dosing. Performed By: #### L IPAS ####[id number] [address] OPERATIVE REPORTon 8 OPERATIVE REPORT [facility] [place], [place] [address]Updklzu Name: CHRISTA SILVERMANMRN: [id number]: 1975Encounter Number: [id number] of Service: 01/11/2018Patient Location: [facility] [id number] Type: ISurgeon: Rusty Thakkar Jr., MDReport Type: Operative ReportsPREOPERATIVE DIAGNOSIS: Acute cholecystitis.POSTOPERAT CODIE DIAGNOSIS: Gangrenous cholecystitis.OPERATION/ PROCEDURE: Status post attempted laparoscopic with conversion to open cholecystectomy.SURGEON: Rusty Thakkar Jr., MDASSISTANT(S): 1. Out Patient Therapist: Dr. Richards, PGY-5, on the Emergency General Surgery Service.2. Second Back Tender Cloth Printing: Dr. Avila, PGY-1, on the Emergency General Surgery Service.ANESTHESIA: Endotracheal intubation.IV FLUIDS: 1800 cc.ESTIMATED BLOOD LOSS: 50 cc.URINE OUTPUT: 220 cc.COMPLICATIONS: None.SPECIMEN: Gallbladder.INDICATIONS: The patient is a 42-year-old male who presents to the [facility] via transfer from an outside institution for further evaluation and management of a preliminary diagnosis of Mirizzi syndrome. The patient had undergone an MRCP, which revealed multiple large gallstones within the gallbladder, no common bile duct stones and questionable appearance of external compression of the common bile duct in the setting of acute cholecystitis. The patient with a remote history of a similar presentation several months ago which resolved spontaneously. On presentation, the patient is hemodynamically stable and afebrile. He is without clinical evidence of jaundice nor does he have elevated total bilirubin. He, therefore, presents to the operating room today for planned laparoscopic possible open cholecystectomy for definitive management of his acute on chronic cholecystitis.PROCEDURE IN DETAIL: The patient was properly identified in preop and taken to the operating room and placed on operating table in the supine position. After adequate general endotracheal anesthesia and placement of orogastric tube, Matthew catheter, and bilateral lower extremity pneumatic compression devices, the abdomen was then prepped and draped in the standard surgical fashion. A 5 mm trocar was then placed in the right upper quadrant via the OptiView due to the patient's size for safe entry. After intraabdominal placement was confirmed under direct visualization, a 10 mm trocar was then placed in the supraumbilical area. Next, a 10 mm trocar was then placed in the subxiphoid area followed by two 5 mm trocars placed laterally. Next, attention was then turned towards the right upper quadrant where an acutely inflamed and dilated gallbladder was encountered. The gallbladder was noted to have a green tinge in its entirety with a focal point of necrosis at the fundus of the gallbladder consistent with the diagnosis of gangrenous gallbladder. Due to the inability to actually grasp the gallbladder secondary to marked wall thickness and the lack of progression with atempted dome-down technique dissection, it was decided that the patient would be converted to an open procedure to allow for safe dissection. The laparoscopic instruments were removed and the pneumoperitoneum allowed to completely resolve. After adequate instruments for an open procedure were in the room, a right subcostal incision was made with a #10 scalpel blade. The incision was carried down to the underlying adipose tissue layers down to the level of the anterior abdominal wall fascia. The anterior abdominal wall fascia was incised along the length of the incision via electric Bovie cautery. The underlying musculature was then divided via electric Bovie cautery without difficulty. The posterior fascial layer as well as the peritoneal lining were then incised along the length of the incision gaining access to the intraabdominal cavity. The right upper quadrant contents were packed away with multiple laparotomy pads via adequate exposure of the gallbladder. The fundus of the gallbladder was then grasped with a large Yvette clamp, and via electro Bovie cautery dissection, the gallbladder was then dissected away from the liver bed. The cystic artery and cystic duct were then encountered and found to be traversing their normal anatomic pass. Both structures were tied distally and proximally and divided between ties with Metzenbaum scissors after complete excision of the gallbladder was passed off the table. Attention was returned back towards the operative field where the right upper quadrant was then irrigated with copious amounts of saline to clear and suction dry. After adequate hemostasis was ensured, the amputated cystic artery and cystic duct were then inspected and found to have ties intact with no evidence of bleeding or bile leak respectively. The multiple laparotomy pads were then removed and the incision closed in layers using #1 Maxon suture, one starting medially, a second starting laterally with both being tied in the midportion of each fascial layer. The wound was then irrigated with copious amounts of saline until clear and suctioned dry. Hemostasis was then ensured using electric Bovie cautery. Due to the acute and chronic infectious nature of the gallbladder as well as the patient's increased risk factors for wound infection to include diabetes mellitus and obesity, it was decided that the skin would be left open and managed postoperatively initially with dressing changes and subsequently with placement of a VAC dressing. The wound was then dressed with Kerlix Rachid soaked in half Betadine and half saline solution followed by a placement of sterile 4 x 4 gauze and tape. All needle, sponge, and instrument counts were correct at the end of the procedure. The patient tolerated the above procedure well and was transported to the recovery room in stable condition and extubated.Rusty Thakkar Jr., MD ESTTT: 01/12/2018 10:09 AM ESTDICTATION NUMBER: [id number] JOB NUMBER: [id number]:Edited by Rusty Thakkar Jr 01/16/2018 09:51:58 AM Electronically Signed by Dr. Rusty Thakkar Jr 01/16/2018 09:51:58 AM Normal [facility] Preop Checkliston 01-11-2018 Preop Checklist Preop Checklist:Preo p Checklist: Procedure Typechole NPO [id number] 00:00 ID Band Onyes Allergy Bandno known allergies Consent Signedpending H&P Completepending Anesthesia Assessment Completedpending EKG Performednot ordered Chest X-Ray Performednot ordered Chlorhexadine Bath Givennot applicable Hair Washednot applicable Soap and water bath with hair shampoo the night before surgerynot applicable SCD's Appliedsent to [facility] [place] Hose Appliednot ordered Denturesnot applicable Prostheticsnot applicable Hearing Aidsnot applicable Valuables Securedleft in patient room Glasses / Contactsleft in patient room Bowel Prepno Cardiovascular Assessment: Apicalregular Radial Pulsespalpable Pedal Pulsespalpable Extremitieswarm, well perfused Respiratory Assessment: Respirationsunlabored regular Air Exchangeequal, good Breath Soundsclear Neurological Assessment: Level of Consciousnessalert, oriented Mobilitymoves all extremities Able to Express Selfyes Age Appropriateyes Emotional Statuscalm Preop Education: Surgical Site Infection Preventionyes Pain Scales and Managementyes Language / Communication: Language / CommunicationEnglish Electronic Signatures:Sheila Armijo (RN) (Signed 11-Jan-2018 06:25)Authored: Preop Checklist Last Updated: 11-Jan-2018 06:25 by Sheila Armijo (RN) Normal [facility] Surgical Pathology Depar tmenton 01-11-2018 [facility] Surgical Pathology Department Name CHRISTA SILVERMAN Pathologist: ADELINA CASAS M.D.Date of Procedure: 01/11/2018Date Received: 01/11/2018Date Reported 01/15/2018Submitting Physician: RUSTY THAKKAR MDLocation: TMOR Other External # FINAL DIAGNOSISA. GALLBLADDER, CHOLECYSTECTOMY: --ACUTE CHOLECYSTITIS AND CHOLELITHIASIS Electronically Signed Out By ADELINA CASAS M.D./MXCBgina the signature on this report, the individual or group listed as making theFinal Interpretation/Diagnosis certifies that they have reviewed this case. Clinical History:CholecystitisSpe cimens Submitted As:A: GALLBLADDER Gross Description:Received fresh, labeled with the patient's name and hospital number, is is apreviously opened gallbladder measuring 10.5 x 5.0 x 4.8 cm. The serosalsurface is smooth to ragged, dull, and red-brown. The cystic duct margin andhepatic surfaces are inked black. The wall measures up to 1.3 cm in greatestthickness. The lumen contains sweeney-brown fluid and multiple dark brown smoothcalculi ranging in dimension from 0.3 to 3.8 cm. On section, the calculi areyellow-sweeney and granular. The mucosal surface is green-sweeney and striated. Photographs have been taken. Lamp Cleaner sections of the cystic duct marginand gallbladder wall are submitted in 2 cassettes. LMPSummary of Cassettes:Specimen Label SiteA 1 cystic duct/gallbladder wall 2 gallbladder walllmp/01/11/2018 Normal [facility] Comment on above: Performed By: #### C BC ####[id number] [place] [address] AMYLASEon 01-10-2018 Amylase enzyme act/vol 49 U/L Normal 29 - 103 [facility] Comment on above: Performed By: #### A MY ####[id number] [place] [address] Admission Risk Screen - Adul ton 01-10-2018 Admission Risk Screen - Adult Allergies: Allergies: wool: Hives/Urticaria Patient Verification: New W ID Band Applied in my Departmentyes Patient Identity Verified Bypatient ID Band FULL Name, include Middle, spelling matches patient's ID used forverificationyes ID Band Matches Patient ID used for Verficationyes ID Band MRN Matches EMR MRNyes Advance Directive: Advance Directive Medicalno Advance Directive Information Givenpatient/family declined Falls Screen:Type of AssessmentadmissionModer ate Risk Factorspatient care equipment (scds, ivs, chest tubes, matthew,etc)Risk for Injury Associated with FallnoneFall Risk Conclusionmoderate falls risk with low risk for associated injuryUniversal Safety InterventionsWDL *orient to call system *instruct to call forassistance before getting out of bed *non-slip footwear when patient is out ofbed *call martinez in reach *personal items and telephone in reach *physically safeenvironment (no spills or clutter) *bed in lowest position with wheels locked*appropriate side rails in place *room/bathroom lighting operational, lightcord in reach *appropriate signage on doorFall and Injury Risk Interventionscollaborate with team for PT/OTconsult/ambulatory aids, educate pt/family, monitor med side effects, consultPharmacy, relocate to area of higher visibility, individualized toiletingschedule, educate patient/family for risk for injury (fractures and bleeding) Family Violence Screen: Are you or have you been threatened or abused physically, emotionally, orsexually by anyoneno Do you feel UNSAFE going back to the place where you are livingno Clinical assessment: Are there any apparent signs of injuries/behaviors thatcould be related to abuse/neglectno Social Service Consult for abuse/neglect needed this visitno Functional screen: Functional Screen: In the recent/past 2-4 weeks, patient or family havenoticedno issues that require a rehabilitation consult at this time Learning Assessment (Patient): Patient is Able to be Assessed for Learningyes Factors Influencing Readiness to Learnnone Factors that Impact Ability to Learnnone Devices/Methods Used to Communicatenone Learning Preferencesverbal instruction; individual instruction Cultural Considerationsnone Developmental Considerationsnone Muslim Considerationsnone Learning Assessment (Other Learner): Other learner availableno Suicide/Depression Screen: During the past month, have you often been bothered by feeling down,depressed or hopelessno During the past month, have you often had little interest or pleasure indoing thingsno Have you had any thoughts of harming yourselfno Have you had any thoughts of harming anyone elseno Adult Nutrition Screen: Have you recently lost weight without tryingno Have you been eating poorly because of a decreased appetiteno MST Score0 RiskMST = 0 or 1 Not at risk. Eating well with little or no weight loss Nutrition Consult needed this visitno Can Patient Participate in Room Serviceyes Patient requires Paper Dishes/Plastic Utensilsno Pain Screen: Pain Scalenumerical 0-10 Pain Scale Educationteaching provided Current Pain Level0 = None Acceptable Pain Level0 = None Expression of Pain (nonverbal)none Chronic Painno Spiritual Screen: Are there any cultural, spiritual, anabaptism practices/values/needs that areimportant for us to knowno CAGE:Is this an [place] a [place] [place] [facility] yesC: Have you ever felt you needed to Cut down on your drinking: Lloyd: Have people Annoyed you by criticizing your drinking: noG: Have you ever felt Guilty about drinking: Yulisa: Have you ever felt you needed a drink first thing in the morning(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) to steady your nerves or to get rid of hangover: no Vaccinations:Vaccination - Influenza Vaccination Screen: Is it flu season (between and )Yes Screening for identified contraindications to influenza vaccinationpatientalread y received vaccine this season Vaccination - Pneumonia Vaccination Screen: Patient has received a previous pneumonia vaccine:yes Rickey:Skin - Rickey Scale: Rickey: Sensory Perception (response to environment)(4) no impairment Rickey: Moisture (degree skin exposed to moisture)(4) rarely moist Rickey: Activity (ability to walk)(4) walks frequently Rickey: Mobility (amount/control of body movement)(4) no limitation Rickey: Nutrition (quality of food intake)(3) adequate Rickey: Friction and Shear(3) no apparent problem Rickey: Score22 Significant Indicatiors:Significant Indicators: Complete Pressure Injury:Pressure Injury Present on Admissionno Electronic Signatures:Crow Perez (RN) (Signed 10-Jan-2018 11:40)Authored: Admission Risk Screens, Vaccinations, Rickey, Pressure Injury Last Updated: 10-Jan-2018 11:40 by Crow Perez (RN) Normal [facility] CBCon 01-10-2018 Erythrocyte distribution width Auto Ratio (RBC) 15.5 % High 11.5 - 14.5 [facility] Comment on above: Performed By: #### C BC ####[id number] [place] [address] Hematocrit Auto Volume Fraction (Bld) 32.4 % Low 41.0 - 52.0 [facility] Comment on above: Performed By: #### C BC ####[id number] [place] [address] Hemoglobin mass conc (Bld) 11.5 g/dL Low 13.5 - 17.5 [facility] Comment on above: Performed By: #### C BC ####[id number] [place] [address] MCHC Auto mass conc (RBC) 35.5 g/dL Normal 32.0 - 36.0 [facility] Comment on above: Performed By: #### C BC ####[id number] [place] [address] MCV Auto Entitic volume (RBC) 95 fL Normal 80 - 100 [facility] Comment on above: Performed By: #### C BC ####[id number] [place] [address] Nucleated RBC/100 WBC Ratio (Bld) 0.0 /100 WBC Normal 0.0-0.0 [facility] Comment on above: Performed By: #### C BC ####[id number] [place] [address] Platelets Auto #/vol (Bld) 150 10*3/uL Normal 150 - 450 [facility] Comment on above: Performed By: #### C BC ####[id number] [place] [address] RBC Auto #/vol (Bld) 3.40 x10E12/L Low 4.50 - 5.90 [facility] Comment on above: Performed By: #### C BC ####[id number] [place] [address] WBC Auto #/vol (Bld) 3.5 10*3/uL Low 4.4 - 11.3 [facility] Comment on above: Performed By: #### C BC ####[id number] [place] [address] COAGULATION SCREENon 018 aPTT Coag time (Bld) 33 s Normal 28 - 38 [facility] Comment on above: Result Comment: Note new reference range as of 01/02/2018. THE APTT IS NO LONGER USED FOR MONITORING UNFRACTIONATED HEPARIN THERAPY. FOR MONITORING HEPARIN THERAPY, USE THE HEPARIN ASSAY. Performed By: #### C OAGS ####[id number] [place] [address] INR Coag RelTime (PPP) 1.2 {INR} High 0.9 - 1.1 [facility] Comment on above: Performed By: #### C OAGS ####[id number] [place] [address] Prothrombin time (PT) Coag time (PPP) 13.6 s High 9.7 - 12.7 [facility] Comment on above: Result Comment: Note new reference range as of 01/02/2018. Performed By: #### C OAGS ####[id number] [place] [address] COMPREHENSIVE PANELon 2017 Albumin mass conc 3.7 g/dL Normal 3.4 - 5.0 [facility] Comment on above: Performed By: #### C MP ####[id number] [place] [address] ALP enzyme act/vol 158 U/L High 33 - 120 [facility] Comment on above: Performed By: #### C MP ####[id number] [place] [address] ALT enzyme act/vol 26 U/L Normal 10 - 52 [facility] Comment on above: Result Comment: Tricia ents treated with Sulfasalazine may generate falsely decreased results for ALT. Performed By: #### C MP ####[id number] [place] [address] Anion gap 3 molar conc 17 mmol/L Normal 10 - 20 [facility] Comment on above: Performed By: #### C MP ####[id number] [place] [address] AST enzyme act/vol 32 U/L Normal 9 - 39 [facility] Comment on above: Performed By: #### C MP ####[id number] [place] [address] Bilirubin mass conc 1.6 mg/dL High 0.0 - 1.2 [facility] Comment on above: Performed By: #### C MP ####[id number] [place] [address] Calcium mass conc 10.0 mg/dL Normal 8.6 - 10.6 [facility] Comment on above: Performed By: #### C MP ####[id number] [place] [address] Chloride molar conc 100 mmol/L Normal 98 - 107 [facility] Comment on above: Performed By: #### C MP ####[id number] [place] [address] Creatinine mass conc 1.45 mg/dL High 0.50 - 1.30 [facility] Comment on above: Performed By: #### C MP ####[id number] [place] [address] GFR- AM. 64 mL/min/1.73m2 Normal >60 [facility] Comment on above: Result Comment: CALC ULATIONS OF ESTIMATED GFR ARE PERFORMED USING THE MDRD STUDY EQUATION FOR THE IDMS-TRACEABLE CREATININE METHODS. CLIN CHEM 2007;53:766-72 Performed By: #### C MP ####[id number] [place] [address] GFR-NON AM. 53 mL/min/1.73m2 Abnormal >60 [facility] Comment on above: Performed By: #### C MP ####[id number] [place] [address] Glucose mass conc 151 mg/dL High 74 - 99 [facility] Comment on above: Performed By: #### C MP ####[id number] [place] [address] HCO3 molar conc (Bld) 21 mmol/L Normal 21 - 32 [facility] Comment on above: Performed By: #### C MP ####[id number] [place] [address] Potassium molar conc 3.9 mmol/L Normal 3.5 - 5.3 [facility] Comment on above: Performed By: #### C MP ####[id number] [place] [address] Protein mass conc 7.1 g/dL Normal 6.4 - 8.2 [facility] Comment on above: Performed By: #### C MP ####[id number] [place] [address] Sodium molar conc 134 mmol/L Low 136 - 145 [facility] Comment on above: Performed By: #### C MP ####[id number] [place] [address] Urea nitrogen mass conc 22 mg/dL Normal 6 - [address] [facility] Comment on above: Performed By: #### C MP ####[id number] [place] [address] Discharge Planning Noteon Discharge Planning Note Patient Learning : Factors that Impact Ability to Learnnone(1) Other Factors: Functional Screen: In the recent/past 2-4 weeks, patient or family havenoticedno issues that require a rehabilitation consult at this time(2) Discharge Planning:Discharge Plannin01/10/18 12:18 Discharge Note- Umm 54Pt admitted to [place] [address] [facility] after having nausea and vomittingsince 01/06. Brought to [facility] for further work up of gallstones. Pt pleasant,alert and oriented and ambulatory. Pt states that he lives at home with hismother Julieta Jasmine ([phone]). He claims his mother is his primarysupport person. Pt denies home oxygen and denies home assistive equipment. Ptdenies homecare. Pt states that he is diabetic and takes BS a couple times aweek or when he is feeling low. He states that he takes metformin and novilinN twice a day. He states that he has adequate diabetic supplies and does notneed anymore at time of discharge. Pt only has clothes and shoes with him.Declines to have anything locked up at this time. Pt states that he is havingno pain, currently comfortable. Vital signs stable. Continue to monitor. ------- FRANSISCA Real. 01-12-18 RN CC note 3:02PM: RN CC sent over the following referrals: 1) [facility] - [facility]ound [facility] [phone] phone Cresencio bass and fax [phone]. Cresencio hasreceived the referral and he is processing it to be delivered tonight/tomorrowam. 2) [facility] and [facility] awaiting responses inAllscripts. CC also sent out advanced search for home care agencies. *Wound vac ordered processed will be delivered to room. Patient's PCP is Dr. Oneyda [phone] Nicki Franco RN CCTower 9Care Coordinator x [phone] 01-12-18 RN CC note 4:01PM: RN CC received call from [facility] and they can accept the patient. They need a call as soon as patientis being discharged. To weekend coverage: Patient's wound vac needs to beapplied to member before he leaves and they need changed out before discharge.They will see patient day after discharge. Nicki Franco RN CCTower 9Care Coordinator x [phone] 01/13/2018 1120 [facility] SUPERVISOR NOTE:Met with patient and nurse, Raissa. [facility] delivered wound vac and [facility] residentswitched them out. Patient is anticipating discharge today. Mary Jo Xiong RN,CC [phone] Spoke with [facility]. Made her aware patient wasdischarged. She states that they have everything they need from us....Ritika GONGORA, CC [phone] 01/13/2018 Discharge Nursing NotePatient discharged to home with new home health referral. Patient had all hisbelongings and IV's were discontinued. IV sites were unremarkable. Allwritten discharge instructions were verbally reviewed with patient and allquestions were answered. Prescriptions given. Raissa cartwright RN Final Disposition/Discharge:Di sposition/Discharge Information: Discharge/Transfer Information: Discharge/Transfer Date/[id number] 14:46 Discharged Accompanied Byspouse Discharge Modewheelchair Transportation Methodprivate car Valuables/Medications/Be longings Returnedna Security Envelope Returnedna Belongings CommentPatient had all his belongings [facility] Electronic Signatures:Mary Jo Xiong (CLIN COOR) (Signed 13-Jan-2018 15:10)Authored: Discharge Planning Crow Antoine (RN) (Signed 10-Jan-2018 12:25)Authored: Discharge Planning Nicki Perez (CLIN COOR) (Signed 12-Jan-2018 16:04)Authored: Discharge Planning Raissa Sen (FRANSISCA) (Signed 13-Jan-2018 17:14)Authored: Discharge Planning Note, Final Disposition/Discharge Last Updated: 13-Jan-2018 17:14 by Raissa Cartwright (RN) References:1. Data Referenced From 5. Education 01/10/2018 11:32 AM2. Data Referenced From Admission Risk Screen - Adult 01/10/2018 11:32 AM Normal [facility] GLUCOSE-POCTon 01-10-2018 Glucose mass conc 138 mg/dL High 74 - 99 [facility] Comment on above: Performed By: #### G RENU ####[id number] [place] [address] Glucose mass conc 167 mg/dL High 74 - 99 [facility] Comment on above: Performed By: #### G RENU ####[id number] [place] [address] Glucose mass conc 155 mg/dL High 74 - 99 [facility] Comment on above: Performed By: #### G RENU ####[id number] [place] [address] History and Physicalon 01-10 History and Physical History of Present Illness:HPI:Patient is 42 yo M with a PMH significant for HTN, HLD, DM2, Hypothyroidism,morbid obesity, thrombocytopenia, and leukopenia was transferred from an OSHwith abdominal pain concerning for choledocholithiasis. Per patient a dull,non-radiating pain in the RUQ began on Monday morning after eating Swyzzle. This prompted him to go the ED. Pt denied any other associatedsymptoms at the time. On admission it was noted his Total bilirubin was 2.1. CTA/P was performed showing three large stones in the gallbladder. MRCP showedfilling defects (4cm) in the gallbladder consistent with stones, tracepericholecystic fluid, and no gallbladder wall thickening. No ductal dilationswere noted in MRCP. Radiologists at OSH could not rule out Mirizzi syndromeprompting pt's transfer. Today pt states he has no abdominal pain. Continues tohave regular bowel movements and passing gas. Denies any fever, chills,,diarrhea, nausea, or vomiting. He states this is the third time this hashappened, second this year. He states the first time he remembers his skinyellowing, denies any surgical intervention at that time. He was treatedmedically and sent home. PMH:-GKR-ILA-Brdncjrybds zkg-WR2-Usdwxt obesity-Thrombocytopenia -Leukopenia PSH:-Tonsillectomy and adenoidectomy Allergies:-Wool Medications:-Lisinopril 20mg QD-Lovastatin 20mg QD-ASA 66-Yereikhyt-Sjhnm-3-Vit beth D-NPH 35units SQ BID-Levothyroxine 100mcg QD-Metoprolol 50mg BID-Purdy q6 PRN-Mg 250mg TID-Ondansetron 4mg q8 PRN FH:-HTN, Heart disease SH:-Never smoked. Denies alcohol or illicit drug use. Comorbidities: Comorbid Conditionsdiabetes, hypertension Diabtetes TypeType 2 Insulin Dependentyes DM Acuity or Statusunknown DM Complicationsunknown Allergies: NKDA: wool: Hives/Urticaria Review of Systems:Constitutional: NEGATIVE: Fever, Chills, Anorexia, Weight Loss, Malaise Eyes: NEGATIVE: Blurry Vision, Drainage, Diploplia, Redness, Vision Loss/Change Respiratory: NEGATIVE: Dry Cough, Productive Cough, Hemoptysis, Wheezing,Shortness of Breath Cardiac: NEGATIVE: Chest Pain, Dyspnea on Exertion, Orthopnea, Palpitations,Syncope Gastrointestinal: POSITIVE: Abdominal Pain; NEGATIVE: Nausea, Vomiting,Diarrhea, Constipation Genitourinary: NEGATIVE: Discharge, Dysuria, Flank Pain, Frequency, Hematuria Musculoskeletal: NEGATIVE: Decreased ROM, Pain, Swelling, Stiffness, Weakness Skin: NEGATIVE: Mass, Pain, Pruritus, Rash, Ulcer Objective: Objective Information: T [id number] /6997%Date/Time01/10 11: 11: 11: 11: 11:20Range(36.4C - 36.4C ) (89 - 89 ) (16 - 16 ) (103 - 103 )/ (69 - 69 ) (97%- 97% ) Physical Exam: Constitutional: Alert and awake. No acute distress.Eyes: Anicteric scleraeRespiratory/Thora x: Non-labored breathing on room air. CTAB.Cardiovascular: Regular rate and rhythm. No murmurs.Gastrointestinal : Obese, soft, non-tender. No rebound, guarding, or rigidity.Lindquist's sign negative.Musculoskeletal : SHELTON.Neurological: ALTERNATIVE DISPUTE RESOLUTION MEDIATOR grossly intact. 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 Pt transferred to for management. Pt currently is afebrile, andwithout abdominal pain. Plan:-Repeat labs-Type and zbdsby-EHM-Bgrnkly home meds-Start on antibiotic-f/u radiology over-read of OSH CT and MRCP Patient discussed with Dr. Thakkar. Guanaco Ahn MDWalker [facility] Surgery, PRI5[facility], [id number] Signatures/Attestation/C ertification:Attending AttestationI saw and evaluated the patient. I personally obtainedthe perdomo and critical portions of the history and physical exam or wasphysically present for perdomo and critical portions performed by theresident/fellow. I reviewed the resident/fellows documentation and discussedthe patient with the resident/fellow. I agree with the resident/fellowsmedical decision making as documented in the residents note.I personally evaluated the patient (as noted in the above attestation) [id number] Provider Inpatient Certification StatementI certify this patientsneed for inpatient care based on the above documentation including; the orderto admit as inpatient, the anticipated length of stay, diagnosis, problem listand plan of care, and discharge plan. Electronic Signatures:Rusty Thakkar) (Signed 16-Jan-2018 13:59)Authored: Signatures/Attestation/C ertificationCo-Signer: History of Present Illness, Comorbidities, Allergies, Review ofSystems, Objective, Assessment and Plan, Signatures/Attestation/C ertificationGuanaco Ahn (Resident)) (Signed 10-Jan-2018 14:01)Authored: History of Present Illness, Comorbidities, Allergies, Review ofSystems, Objective, Assessment and Plan, Signatures/Attestation/C ertification Last Updated: 16-Jan-2018 13:59 by Rusty Thakkar) Normal [facility] LIPASEon 01-10-2018 Lipase enzyme act/vol 23 U/L Normal 9 - 82 [facility] Comment on above: Result Comment: Carmen puncture immediately after or during the administration of Metamizole may lead to falsely low results. Testing should be performed immediately prior to Metamizole dosing. Performed By: #### L IPAS ####[id number] [place] [address] Patient Profile - Adult v2on 01-10-2018 Protein mass conc Profile:Initial Info :How to be AddressedJamesSpoken Language PreferredEnglishAre you currently using the Personal Electronic Health Record or [facility] you interested in learning more about [facility] for the management of yourhealthnot at this timeStated Reason for Admissionabd painArrived FromhospitalPatient Belongingsremains with patientPatient Belongings Remaining with PatientclothingMedicatio ns Brought to Hospitalno General Health:Weight in kg201 kilogram(s)Weight in xuj495.1 pound(s)Height in feet5 feetHeight in gmrwdo45 inch(es)Height in cm177.8 centimeter(s)BMI (kg/m2)63.581 square meterWeight Methodactual (measured)Scale TypestandingHeight Methodstated RSP Based Care:How would you like to participate in your careCommunication with all staffWhat is the number one concern for you during this hospitalizationGet wellWhat is the most important thing we can do to support you during thishospitalizationliste n to meIs there anything we need to know to best care for ana/a Substance:Current or Former Substance Use never: Cigarette/Tobacco, e-Cigarette/Vaping,Alcoh ol, Street Drugs Health Mgmt:Symptoms/Conditions Managed at HomeendocrineEndocrine Management Strategiesblood glucose testing; insulin therapy;medication therapyEndocrine ManagementmanagedEndocri ne Symptoms/Conditionsdiabe germain Relationship/Environ:Genet indra Source of Support/ComfortparentLiv es Withparent(s)Living ArrangementshouseResourc e/Environmental ConcernsnoneAnticipated Transition TohomeServices Anticipated at TransitionnoneSignifican t IndicatorsComplete Information Review: Allergies, Home Meds and Significant Events have been Reviewed and Verifiedwith Patient/Familyyes ALLERGY, INTOLERANCE, ADVERSE EVENT: Allergies: NKDA: Active wool: Environment, Hives/Urticaria, Active Electronic Signatures:Crow Perez (FRANSISCA) (Signed 10-Jan-2018 11:55)Authored: Profile, Additional Information Last Updated: 10-Jan-2018 11:55 by Crow Perez (FRANSISCA) Normal [facility] RAD OUTSIDE EXAM OVER READon 01-10-2018 RAD OUTSIDE EXAM OVER READ Name: CHRISTA SILVERMAN STUDY:RAD OUTSIDE EXAM OVER READ; 01/10/2018 7:29 pm INDICATION:GALLSTONES, RUQ ABD PAIN, CT ABD/PEL 01/06/18 From [facility]. Loaded to PACS on 10/31/18 @ 7:20pm from cd, dictation requiredfor medical necessity, orig. dictation is available . COMPARISON:None ORDERING CLINICIAN:HIPOLITO WALKER TECHNIQUE:Axial CT imaging of the abdomen and pelvis was performed. [place] coronal reconstructions were performed. No contrast wasadministered. FINDINGS:Note : Evaluation is limited due to high degree of noise artifact. LOWER CHEST:Diffuse tree-in-bud opacities located throughout the bilateral lungs,right greater than left. Correlate with concern for aspiration.The heart is normal in size. No evidence of pericardial effusion. ABDOMEN:Evaluation of the solid visceral organs and vasculature is limitedwithout intravenous contrast. LIVER: There is hepatomegaly with the liver measuring 20 cm in thecraniocaudad dimension. No focal liver lesions. GALLBLADDER: The gallbladder is diffusely distended, measuring 4.7 cmat its greatest transverse dimension. There are for gallstonesoccupying the entire lumen of the gallbladder, the largest of whichis located in the gallbladder neck and measures 2.8 cm x 3.7 cm(axial image 74/211). The gallbladder wall measures 7.4 mm new theneck with minimal pericholecystic fat stranding. BILE DUCTS: Normal caliber. No intra or extrahepatic biliary ductaldilatation is present. SPLEEN: There is splenomegaly with the spleen measuring 19 cm in thecraniocaudad dimension. PANCREAS: Pancreas is normal in size. No peripancreatic stranding ispresent. ADRENALS: Unremarkable. KIDNEYS and URETERS: The kidneys are normal in size and appearancebilaterally. No gross hydronephrosis or obstructing renal calculiare present involving either kidney. No hydroureter is presentbilaterally. BOWEL and ABDOMINAL WALL and LYMPH NODES: Stomach and duodenum aregrossly unremarkable. No evidence of small or large bowel obstructionor abnormal bowel dilatation. The appendix is normal in size andappearance off of the cecum. No free air or free fluid in the abdomen or pelvis. No focal fluidcollection or abscess. No intraabdominal or retroperitoneal massesor adenopathy by size criteria. VESSELS: The aorta and IVC are within normal limits with respect tosize. PELVIS: REPRODUCTIVE ORGANS and BLADDER: No gross pelvic masses are present.There is no pelvic free fluid. Urinary bladder is unremarkable inappearance. BONES: Discogenic degenerative changes of the lumbar spine arepresent on the dedicated bone windows. IMPRESSION:1. Distended gallbladder with thickened spears and multiple gallstonesconcerning for acute cholecystitis.2. Diffuse tree-in-bud opacities throughout the bilateral lungs,right greater than left, concerning for developing aspirationpneumonia.3. Hepatosplenomegaly.I personally reviewed the images/study and I agree with the findingsas stated. This study was interpreted at [facility], [place], [place].Electronically signed by: KIM WILL MD Normal [facility] RAD OUTSIDE EXAM OVER READ Name: CHRISTA SILVERMAN STUDY:RAD OUTSIDE EXAM OVER READ; 01/10/2018 7:29 pm INDICATION:GALLSTONES, RUQ ABD PAIN, MRI MRCP ABD 01/08/18 From [facility]. Loaded to PACS on 01/10/18 @ 7:20pm from cd,dictation required for medical necessity, orig. dictation isavailable . COMPARISON:CT abdomen pelvis dated 01/06/2018 ORDERING CLINICIAN:HIPOLITO WALKER TECHNIQUE:[facility] the [facility] (available for interpretation at [facility] on 01/11/2018). These contain a refueling ramp attendant andaxial and coronal T2 FSE, axial and coronal T2 fat sat FSE, coronalT1 and MRCP. The report was requested for medical necessity by Dr. [place].Please note that outside hospital MRCP interpretation is greatlylimited by lack of technical factors, information about clinicalsetting, contrast timing, etc. The interpretation provided is thebest possible under the circumstances but please obtain the originalinterpretation by the supervising radiologist/service. FINDINGS:LIVER:The liver is normal in size and demonstrates homogeneous signalintensity in T2 weighted image. No liver mass. BILE DUCTS:There is mild intrahepatic biliary dilatation. The midportion of thecommon bile duct adjacent to the gallbladder and cystic duct are notvisualized, likely due to mass effect from extensive pericholecysticinflammat ory changes. Otherwise, the remainder of the extrahepaticbile ducts are nondilated without filling defect. GALLBLADDER:The gallbladder is distended measuring 4.8 in axial diameter. Thereare multiple filling defects within the gallbladder, representinggallstones. There is interval diffuse circumferential thickening ofthe gallbladder wall with extensive adjacent fat stranding andinflammatory changes. There are multiple enlarged lymph nodesadjacent to the gallbladder fossa measuring up to 2 cm in short axis,likely reactive in nature. PANCREAS:Normal signal intensity. Normal enhancement. No masses. Thepancreatic duct is normal. SPLEEN:The spleen is enlarged measuring 18.1 cm in largest dimension. ADRENAL GLANDS:Within normal limits. KIDNEYS:There is partial visualization of T2 weighted hyperintense lesion inthe lower pole of the left kidney, which is not fully characterizedon current exam. There is no evidence of hydroureteronephrosis. LYMPH NODES:There are multiple prominent lymph nodes adjacent to the gallbladderand in the xavier hepatis region measuring up to 2 cm, likely reactivein nature. ABDOMINAL VESSELS:Aorta and the major abdominal arterial vessels demonstrate no grossabnormality. Superior mesenteric vein, splenic vein, and main, rightand left portal vein are patent. Hepatic veins are patent. Nosignificant collaterals or esophageal varices are present. BOWEL:Within normal limits. PERITONEUM/RETROPERITONE UM:No ascites. BONES AND LOWER THORAX:Within normal limits. The visualized lower lung polk areunremarkable. The heart is normal in size. IMPRESSION:1. Cholelithiasis with interval thickening of the gallbladder walland extensive fat stranding and inflammatory changes adjacent to thegallbladder; findings are in keeping with acute cholecystitis.2. Multiple enlarged lymph nodes adjacent to the gallbladder and inthe xavier hepatis region, measuring up to 2 cm, likely reactive innature.3. Mild intrahepatic biliary dilatation. No evidence of fillingdefect within the extrahepatic bile ducts. Midportion of the commonbile duct and cystic duct are not visualized, likely due to masseffect from extensive pericholecystic inflammation.4. Splenomegaly.5. Additional findings as above.I personally reviewed the images/study and I agree with the findingsas stated. This study was interpreted at [place], [place].Electronically signed by: ANA WOODSON MD Normal [facility] TYPE + SCREENon 01-10-2018 ABO TYPE O Normal [facility] Comment on above: Performed By: #### T +S ####[id number] [place] [address] RH TYPE Positive Normal [facility] Comment on above: Performed By: #### T +S ####[id number] [place] [address] CMVon 07-18-2017 CMV IgG Antibody Negative Normal [facility] ([place]) Comment on above: Result Comment: INTE RPRETATION OF CMV BY EIA (Effective 04/28/04): Negative Negative for CMV antibodies. Positive Positive for CMV antibodies. Equivocal Equivocal for CMV antibodies. Repeat testing in 14 days is suggested. Performed By: #### C BC, ADIFF, ANEU, LIP, BMP, GFR, MG, HEPAC ####[place] [id number] [place] [address] CMV IgM Antibody Negative Normal Negative [facility] ([place]) Comment on above: Result Comment: INTE RPRETATION OF CMV BY EIA (Effective 04/28/04): Negative Negative for CMV antibodies. Positive Positive for CMV antibodies. Equivocal Equivocal for CMV antibodies. Repeat testing in 14 days is suggested. Performed By: #### C BC, ADIFF, ANEU, LIP, BMP, GFR, MG, HEPAC ####[place] [id number] [place] [address] EBVon 07-18-2017 EBV IgG Positive Normal Negative [facility] ([place] Comment on above: Result Comment: INTE RPRETATION OF EBV BY EIA (Effective 03/18/04): Negative No detectable EBV antibody. Result does not exclude EBV infection. An additional sample should be tested within 4-6 weeks if early infection is suspected. Positive IgG EBV IgG antibody detected. Indicative of current or past infection. Equivocal Equivocal for antibodies to EBV. Repeat testing if still indicated. Performed By: #### C BC, ADIFF, ANEU, LIP, BMP, GFR, MG, HEPAC ####[place] [id number] [place] [address] EBV IgM Negative Normal [facility] ([place] Comment on above: Result Comment: INTE RPRETATION OF EBV BY EIA (Effective 03/18/04): Negative No detectable EBV antibody. Result does not exclude EBV infection. An additional sample should be tested within 4-6 weeks if early infection is suspected. Positive IgM EBV IgM antibody detected. Equivocal Equivocal for antibodies to EBV. Repeat testing if still indicated. Performed By: #### C BC, ADIFF, ANEU, LIP, BMP, GFR, MG, HEPAC ####[place] [id number] [place] [address] .GFRon 07-14-2017 GFR >60 Normal [facility] ([place]) Comment on above: Result Comment: GFR Population mean for , Non- Americans Ages 20-29 = 116 mL/min/1.73 sq.m. Ages 30-39 = 107 mL/min/1.73 sq.m. Ages 40-49 = 99 mL/min/1.73 sq.m. Ages 50-59 = 93 mL/min/1.73 sq.m. Ages 60-69 = 85 mL/min/1.73 sq.m. Ages 70+ = 75 mL/min/1.73 sq.m.Chronic Kidney Disease: Less than 60 mL/min/1.73 square metersEnd Stage Renal Disease: Less than 15 mL/min/1.73 square meters Performed By: #### C BC, ADIFF, ANEU, LIP, BMP, GFR, MG, HEPAC ####[address] [address] GFR Non- >60 Normal [facility] ([place]) Comment on above: Result Comment: GFR Population mean for , Non- Americans Ages 20-29 = 116 mL/min/1.73 sq.m. Ages 30-39 = 107 mL/min/1.73 sq.m. Ages 40-49 = 99 mL/min/1.73 sq.m. Ages 50-59 = 93 mL/min/1.73 sq.m. Ages 60-69 = 85 mL/min/1.73 sq.m. Ages 70+ = 75 mL/min/1.73 sq.m.Chronic Kidney Disease: Less than 60 mL/min/1.73 square metersEnd Stage Renal Disease: Less than 15 mL/min/1.73 square meters Performed By: #### C BC, ADIFF, ANEU, LIP, BMP, GFR, MG, HEPAC ####[address] [address] CMPon 07-14-2017 Albumin/Globulin mass ratio 0.7 {ratio} Low 0.9-1.6 [facility] ([place]) Comment on above: Performed By: #### C BC, ADIFF, ANEU, LIP, BMP, GFR, MG, HEPAC ####[address] [address] ALT enzyme act/vol 65 U/L High 12-55 [facility] ([place]) Comment on above: Performed By: #### C BC, ADIFF, ANEU, LIP, BMP, GFR, MG, HEPAC ####[address] [address] AST enzyme act/vol 66 U/L High 8-34 [facility] ([place] Comment on above: Performed By: #### C BC, ADIFF, ANEU, LIP, BMP, GFR, MG, HEPAC ####[address] [address] Bili Total 3.0 mg/dL High 0.2-1.2 [facility] ([place] Comment on above: Performed By: #### C BC, ADIFF, ANEU, LIP, BMP, GFR, MG, HEPAC ####[address] [address] Calcium mass conc 8.5 mg/dL Normal 8.4-10.1 [facility] ([place] Comment on above: Performed By: #### C BC, ADIFF, ANEU, LIP, BMP, GFR, MG, HEPAC ####[address] [address] CO2 molar conc 19 mmol/L Low 22-32 [facility] ([place] Comment on above: Performed By: #### C BC, ADIFF, ANEU, LIP, BMP, GFR, MG, HEPAC ####[address] [address] Creatinine mass conc 0.90 mg/dL Normal 0.60-1.40 [facility] ([place]) Comment on above: Performed By: #### C BC, ADIFF, ANEU, LIP, BMP, GFR, MG, HEPAC ####[place] [address] Electrolyte Balance 16.0 mEq/L High 4.0-15.0 [facility] ([place]) Comment on above: Performed By: #### C BC, ADIFF, ANEU, LIP, BMP, GFR, MG, HEPAC ####[address] [address] Globulin Calculated mass conc (S) 4.2 G/dL High 1.5-3.8 [facility] ([place] Comment on above: Performed By: #### C BC, ADIFF, ANEU, LIP, BMP, GFR, MG, HEPAC ####[address] [address] Glucose mass conc 159 mg/dL High 70-110 [facility] ([place] Comment on above: Performed By: #### C BC, ADIFF, ANEU, LIP, BMP, GFR, MG, HEPAC ####[place] [address] Potassium molar conc 3.8 mmol/L Normal 3.5-5.0 [facility] ([place] Comment on above: Performed By: #### C BC, ADIFF, ANEU, LIP, BMP, GFR, MG, HEPAC ####[address] [address] Protein mass conc 7.1 G/dL Normal 6.0-8.5 [facility] ([place] Comment on above: Performed By: #### C BC, ADIFF, ANEU, LIP, BMP, GFR, MG, HEPAC ####[place] [address] Urea nitrogen mass conc 19.0 mg/dL Normal 8.0-22.0 [facility] ([place]) Comment on above: Performed By: #### C BC, ADIFF, ANEU, LIP, BMP, GFR, MG, HEPAC ####[place] [address] Urea nitrogen/Creatinine mass ratio 21.1 ratio Normal 10.0-22.0 [facility] ([place] Comment on above: Performed By: #### C BC, ADIFF, ANEU, LIP, BMP, GFR, MG, HEPAC ####[place] [address] ALP enzyme act/vol 191 U/L High 38-126 [facility] ([place] Comment on above: Performed By: #### C BC, ADIFF, ANEU, LIP, BMP, GFR, MG, HEPAC ####[place] [address] Albumin mass conc 2.9 G/dL Low 3.2-4.8 [facility] ([place] Comment on above: Performed By: #### C BC, ADIFF, ANEU, LIP, BMP, GFR, MG, HEPAC ####[place] [address] Chloride molar conc 98 mmol/L Normal 98-110 [facility] [place] Comment on above: Performed By: #### C BC, ADIFF, ANEU, LIP, BMP, GFR, MG, HEPAC ####[place] [address] Sodium molar conc 133 mmol/L Low 136-145 [facility] ([place] Comment on above: Performed By: #### C BC, ADIFF, ANEU, LIP, BMP, GFR, MG, HEPAC ####[place] [address] MGon 07-14-2017 Magnesium mass conc 1.7 mg/dL Normal 1.6-2.4 [facility] [place] Comment on above: Performed By: #### C BC, ADIFF, ANEU, LIP, BMP, GFR, MG, HEPAC ####[place] [address] .Auto Diffon 07-13-2017 Ammonia mass conc (P) 0.30 10 3/mcL Normal 0.09-1.40 [facility] ([place]) Comment on above: Performed By: #### C BC, ADIFF, ANEU, LIP, BMP, GFR, MG, HEPAC ####[place] [address] Basophils Auto #/vol (Bld) 0.00 10 3/mcL Normal 0.00-0.27 [facility] ([place]) Comment on above: Performed By: #### C BC, ADIFF, ANEU, LIP, BMP, GFR, MG, HEPAC ####[address] [address] Basophils/100 WBC Auto (Bld) 0.4 % Normal 0.0-2.5 [facility] ([place]) Comment on above: Performed By: #### C BC, ADIFF, ANEU, LIP, BMP, GFR, MG, HEPAC ####[address] [address] Eosinophils Auto #/vol (Bld) 0.10 10 3/mcL Normal 0.00-0.65 [facility] ([place]) Comment on above: Performed By: #### C BC, ADIFF, ANEU, LIP, BMP, GFR, MG, HEPAC ####[address] [address] Eosinophils/100 WBC Auto (Bld) 2.7 % Normal 0.0-6.0 [facility] ([place]) Comment on above: Performed By: #### C BC, ADIFF, ANEU, LIP, BMP, GFR, MG, HEPAC ####[address] [address] Lymphocytes Auto #/vol (Bld) 0.70 10 3/mcL Low 0.90-4.32 [facility] ([place]) Comment on above: Performed By: #### C BC, ADIFF, ANEU, LIP, BMP, GFR, MG, HEPAC ####[address] [address] Lymphocytes/100 WBC Auto (Bld) 13.9 % Low 20.0-40.0 [facility] ([place]) Comment on above: Performed By: #### C BC, ADIFF, ANEU, LIP, BMP, GFR, MG, HEPAC ####[address] [address] Monocytes/100 WBC Auto (Bld) 7.4 % Normal 2.0-13.0 [facility] ([place]) Comment on above: Performed By: #### C BC, ADIFF, ANEU, LIP, BMP, GFR, MG, HEPAC ####[address] [address] Neutrophils/100 WBC Auto (Bld) 75.6 % High 50.0-75.0 [facility] ([place] Comment on above: Performed By: #### C BC, ADIFF, ANEU, LIP, BMP, GFR, MG, HEPAC ####[address] [address] .GFRon 07-13-2017 GFR >60 Normal [facility] ([place]) Comment on above: Result Comment: GFR Population mean for , Non- Americans Ages 20-29 = 116 mL/min/1.73 sq.m. Ages 30-39 = 107 mL/min/1.73 sq.m. Ages 40-49 = 99 mL/min/1.73 sq.m. Ages 50-59 = 93 mL/min/1.73 sq.m. Ages 60-69 = 85 mL/min/1.73 sq.m. Ages 70+ = 75 mL/min/1.73 sq.m.Chronic Kidney Disease: Less than 60 mL/min/1.73 square metersEnd Stage Renal Disease: Less than 15 mL/min/1.73 square meters Performed By: #### C BC, ADIFF, ANEU, LIP, BMP, GFR, MG, HEPAC ####[place] [address] GFR Non- >60 Normal [facility] ([place]) Comment on above: Result Comment: GFR Population mean for , Non- Americans Ages 20-29 = 116 mL/min/1.73 sq.m. Ages 30-39 = 107 mL/min/1.73 sq.m. Ages 40-49 = 99 mL/min/1.73 sq.m. Ages 50-59 = 93 mL/min/1.73 sq.m. Ages 60-69 = 85 mL/min/1.73 sq.m. Ages 70+ = 75 mL/min/1.73 sq.m.Chronic Kidney Disease: Less than 60 mL/min/1.73 square metersEnd Stage Renal Disease: Less than 15 mL/min/1.73 square meters Performed By: #### C BC, ADIFF, ANEU, LIP, BMP, GFR, MG, HEPAC ####[address] [address] .NEUABSon 07-13-2017 Neutrophil, Absolute 3.50 10 3/mcL Normal 2.25-8.10 A [facility] ([place]) Comment on above: Performed By: #### C BC, ADIFF, ANEU, LIP, BMP, GFR, MG, HEPAC ####[place] [address] CBCon 07-13-2017 Erythrocyte distribution width Auto Ratio (RBC) 15.7 % High 11.5-15.5 [facility] ([place]) Comment on above: Performed By: #### C BC, ADIFF, ANEU, LIP, BMP, GFR, MG, HEPAC ####[place] [address] Hematocrit Auto Volume Fraction (Bld) 32.1 % Low 40.0-52.0 [facility] ([place]) Comment on above: Performed By: #### C BC, ADIFF, ANEU, LIP, BMP, GFR, MG, HEPAC ####[place] [address] Hemoglobin mass conc (Bld) 11.2 G/dL Low 13.0-17.5 [facility] ([place] Comment on above: Performed By: #### C BC, ADIFF, ANEU, LIP, BMP, GFR, MG, HEPAC ####[place] [address] MCH Auto Entitic mass (RBC) 33.8 pg High 27.0-33.0 [facility] ([place] Comment on above: Performed By: #### C BC, ADIFF, ANEU, LIP, BMP, GFR, MG, HEPAC ####[place] [address] MCHC Auto mass conc (RBC) 34.8 G/dL Normal 32.0-36.0 [facility] ([place] Comment on above: Performed By: #### C BC, ADIFF, ANEU, LIP, BMP, GFR, MG, HEPAC ####[place] [address] MCV Auto Entitic volume (RBC) 97.2 fL Normal 81.0-100.0 [facility] ([place] Comment on above: Performed By: #### C BC, ADIFF, ANEU, LIP, BMP, GFR, MG, HEPAC ####[place] [address] Platelet mean volume Auto Entitic volume (Bld) 7.0 fL Normal 6.4-10.5 [facility] ([place] Comment on above: Performed By: #### C BC, ADIFF, ANEU, LIP, BMP, GFR, MG, HEPAC ####[place] [address] Platelets Auto #/vol (Bld) 149 10 3/mcL Low 150-450 [facility] ([place] Comment on above: Performed By: #### C BC, ADIFF, ANEU, LIP, BMP, GFR, MG, HEPAC ####[place] [address] RBC Auto #/vol (Bld) 3.30 10 6/mcL Low 4.50-6.00 A [facility] ([place] Comment on above: Performed By: #### C BC, ADIFF, ANEU, LIP, BMP, GFR, MG, HEPAC ####[place] [address] WBC Auto #/vol (Bld) 4.70 10 3/mcL Normal 4.50-10.80 A [facility] ([place] Comment on above: Performed By: #### C BC, ADIFF, ANEU, LIP, BMP, GFR, MG, HEPAC ####[place] [address] CMPon 07-13-2017 Albumin/Globulin mass ratio 0.7 {ratio} Low 0.9-1.6 [facility] ([place] Comment on above: Performed By: #### C BC, ADIFF, ANEU, LIP, BMP, GFR, MG, HEPAC ####[place] [address] ALP enzyme act/vol 195 U/L High 38-126 [facility] ([place]) Comment on above: Performed By: #### C BC, ADIFF, ANEU, LIP, BMP, GFR, MG, HEPAC ####[place] [address] Bili Total 2.8 mg/dL High 0.2-1.2 [facility] ([place] Comment on above: Performed By: #### C BC, ADIFF, ANEU, LIP, BMP, GFR, MG, HEPAC ####[place] [address] Globulin Calculated mass conc (S) 4.1 G/dL High 1.5-3.8 [facility] ([place] Comment on above: Performed By: #### C BC, ADIFF, ANEU, LIP, BMP, GFR, MG, HEPAC ####[place] [address] Protein mass conc 7.0 G/dL Normal 6.0-8.5 [facility] ([place] Comment on above: Performed By: #### C BC, ADIFF, ANEU, LIP, BMP, GFR, MG, HEPAC ####[place] [address] Albumin mass conc 2.9 G/dL Low 3.2-4.8 [facility] ([place] Comment on above: Performed By: #### C BC, ADIFF, ANEU, LIP, BMP, GFR, MG, HEPAC ####[place] [address] ALT enzyme act/vol 76 U/L High 12-55 [facility] ([place] Comment on above: Performed By: #### C BC, ADIFF, ANEU, LIP, BMP, GFR, MG, HEPAC ####[place] [address] AST enzyme act/vol 68 U/L High 8-34 [facility] ([place] Comment on above: Performed By: #### C BC, ADIFF, ANEU, LIP, BMP, GFR, MG, HEPAC ####[place] [address] Calcium mass conc 8.7 mg/dL Normal 8.4-10.1 [facility] ([place] Comment on above: Performed By: #### C BC, ADIFF, ANEU, LIP, BMP, GFR, MG, HEPAC ####[place] [address] Chloride molar conc 100 mmol/L Normal 98-110 [facility] [place] Comment on above: Performed By: #### C BC, ADIFF, ANEU, LIP, BMP, GFR, MG, HEPAC ####[place] [address] CO2 molar conc 18 mmol/L Low 22-32 [facility] ([place]) Comment on above: Performed By: #### C BC, ADIFF, ANEU, LIP, BMP, GFR, MG, HEPAC ####[place] [address] Creatinine mass conc 0.99 mg/dL Normal 0.60-1.40 [facility] ([place]) Comment on above: Performed By: #### C BC, ADIFF, ANEU, LIP, BMP, GFR, MG, HEPAC ####[place] [address] Electrolyte Balance 15.0 mEq/L Normal 4.0-15.0 [facility] [place] Comment on above: Performed By: #### C BC, ADIFF, ANEU, LIP, BMP, GFR, MG, HEPAC ####[place] [address] Glucose mass conc 173 mg/dL High 70-110 [facility] ([place] Comment on above: Performed By: #### C BC, ADIFF, ANEU, LIP, BMP, GFR, MG, HEPAC ####[place] [address] Potassium molar conc 3.7 mmol/L Normal 3.5-5.0 [facility] ([place] Comment on above: Performed By: #### C BC, ADIFF, ANEU, LIP, BMP, GFR, MG, HEPAC ####[place] [address] Sodium molar conc 133 mmol/L Low 136-145 [facility] ([place] Comment on above: Performed By: #### C BC, ADIFF, ANEU, LIP, BMP, GFR, MG, HEPAC ####[place] [address] Urea nitrogen mass conc 19.0 mg/dL Normal 8.0-22.0 A [facility] ([place] Comment on above: Performed By: #### C BC, ADIFF, ANEU, LIP, BMP, GFR, MG, HEPAC ####[place] [address] Urea nitrogen/Creatinine mass ratio 19.2 ratio Normal 10.0-22.0 [facility] ([place] Comment on above: Performed By: #### C BC, ADIFF, ANEU, LIP, BMP, GFR, MG, HEPAC ####[place] [address] MGon 07-13-2017 Magnesium mass conc 1.7 mg/dL Normal 1.6-2.4 [facility] [place] Comment on above: Performed By: #### C BC, ADIFF, ANEU, LIP, BMP, GFR, MG, HEPAC ####[place] [address] US DOPPLER ABDOMENon 018 US DOPPLER ABDOMEN ORIGINALUS DOPPLER ABDOMEN CLINICAL INDICATION:Portal vein thrombosis, elevated LFTs COMPARISON: None TECHNIQUE: Harris scale, color doppler and spectral wave analysis was performed of the liver. FINDINGS: VASCULAR:SV: Patent, hepatopedal MPV: Patent, hepatopedal. Upper normal measuring 1.1 to 1.3 cm.RPV: Patent, hepatopedalLPV: Patent, hepatopedal MATTHEWS: Patent RHV: PatentMHV: PatentLHV: Patent NON-VASCULAR: SPLEEN: Marked splenomegaly without lesion, measuring 19.6 x 19.2 x 7.0 cm. IMPRESSION: 1. Patent portal, splenic, and hepatic veins. 2. Marked splenomegaly measuring up to 19.6 cm. Interpreted By: Heena Leggett MDPreliminary Report By: Heena Leggett MDElectronically Signed By: Heena Leggett MD Dictated Date: 07/13/2017 2:15:37 PM Prelim Date: 07/13/2017 2:15:37 PM Sign Date: 07/13/2017 2:23:42 PM Normal [facility] ([place]) US ELASTOGRAPHY LIVER ONLYon 07-13-2017 Protein mass conc ORIGINALUS ELASTOGRA PHY LIVER ONLY CLINICAL INDICATION: elevated lfts COMPARISON: None FINDINGS: The exam is compromised due to obesity. Only 2 valid samples were obtained which compromises evaluation. Elastography of the liver was performed in the right lobe. Median velocity: 1.71 m/sIQR/median ratio: 0.28(Value less than or equal to 0.3 should be seen to ensure exam adequacy.) IMPRESSION: 1. Compromised since only 2 valid samples were able to be obtained. Elastography demonstrates intermediate fibrosis. Continued follow-up recommended. Interpreted By: Heena Leggettreliminary Report By: Heena Leggett MDElectronically Signed By: Heena Leggett MD Dictated Date: 07/13/2017 1:55:26 PM Prelim Date: 07/13/2017 1:55:26 PM Sign Date: 07/13/2017 1:57:34 PM Normal [facility] ([place]) .Auto Diffon 07-12-2017 Ammonia mass conc (P) 0.40 10 3/mcL Normal 0.09-1.40 [facility] ([place]) Comment on above: Performed By: #### C BC, ADIFF, ANEU, LIP, BMP, GFR, MG, HEPAC ####[address] [address] Basophils Auto #/vol (Bld) 0.00 10 3/mcL Normal 0.00-0.27 [facility] ([place]) Comment on above: Performed By: #### C BC, ADIFF, ANEU, LIP, BMP, GFR, MG, HEPAC ####[address] [address] Basophils/100 WBC Auto (Bld) 0.3 % Normal 0.0-2.5 [facility] ([place]) Comment on above: Performed By: #### C BC, ADIFF, ANEU, LIP, BMP, GFR, MG, HEPAC ####[address] [address] Eosinophils Auto #/vol (Bld) 0.10 10 3/mcL Normal 0.00-0.65 [facility] ([place]) Comment on above: Performed By: #### C BC, ADIFF, ANEU, LIP, BMP, GFR, MG, HEPAC ####[address] [address] Eosinophils/100 WBC Auto (Bld) 2.0 % Normal 0.0-6.0 [facility] ([place]) Comment on above: Performed By: #### C BC, ADIFF, ANEU, LIP, BMP, GFR, MG, HEPAC ####[address] [address] Lymphocytes Auto #/vol (Bld) 0.60 10 3/mcL Low 0.90-4.32 [facility] ([place]) Comment on above: Performed By: #### C BC, ADIFF, ANEU, LIP, BMP, GFR, MG, HEPAC ####[address] [address] Lymphocytes/100 WBC Auto (Bld) 10.3 % Low 20.0-40.0 [facility] ([place] Comment on above: Performed By: #### C BC, ADIFF, ANEU, LIP, BMP, GFR, MG, HEPAC ####[address] [address] Monocytes/100 WBC Auto (Bld) 6.9 % Normal 2.0-13.0 [facility] ([place] Comment on above: Performed By: #### C BC, ADIFF, ANEU, LIP, BMP, GFR, MG, HEPAC ####[address] [address] Neutrophils/100 WBC Auto (Bld) 80.5 % High 50.0-75.0 [facility] ([place] Comment on above: Performed By: #### C BC, ADIFF, ANEU, LIP, BMP, GFR, MG, HEPAC ####[address] [address] .GFRon 07-12-2017 GFR Non- >60 Normal [facility] ([place]) Comment on above: Result Comment: GFR Population mean for , Non- Americans Ages 20-29 = 116 mL/min/1.73 sq.m. Ages 30-39 = 107 mL/min/1.73 sq.m. Ages 40-49 = 99 mL/min/1.73 sq.m. Ages 50-59 = 93 mL/min/1.73 sq.m. Ages 60-69 = 85 mL/min/1.73 sq.m. Ages 70+ = 75 mL/min/1.73 sq.m.Chronic Kidney Disease: Less than 60 mL/min/1.73 square metersEnd Stage Renal Disease: Less than 15 mL/min/1.73 square meters Performed By: #### C BC, ADIFF, ANEU, LIP, BMP, GFR, MG, HEPAC ####[address] [address] GFR >60 Normal [facility] ([place]) Comment on above: Result Comment: GFR Population mean for , Non- Americans Ages 20-29 = 116 mL/min/1.73 sq.m. Ages 30-39 = 107 mL/min/1.73 sq.m. Ages 40-49 = 99 mL/min/1.73 sq.m. Ages 50-59 = 93 mL/min/1.73 sq.m. Ages 60-69 = 85 mL/min/1.73 sq.m. Ages 70+ = 75 mL/min/1.73 sq.m.Chronic Kidney Disease: Less than 60 mL/min/1.73 square metersEnd Stage Renal Disease: Less than 15 mL/min/1.73 square meters Performed By: #### C BC, ADIFF, ANEU, LIP, BMP, GFR, MG, HEPAC ####[address] [address] .NEUABSon 07-12-2017 Neutrophil, Absolute 4.50 10 3/mcL Normal 2.25-8.10 A [facility] ([place] Comment on above: Performed By: #### C BC, ADIFF, ANEU, LIP, BMP, GFR, MG, HEPAC ####[address] [address] CBCon 07-12-2017 Erythrocyte distribution width Auto Ratio (RBC) 15.6 % High 11.5-15.5 [facility] ([place] Comment on above: Performed By: #### C BC, ADIFF, ANEU, LIP, BMP, GFR, MG, HEPAC ####[address] [address] Hematocrit Auto Volume Fraction (Bld) 34.2 % Low 40.0-52.0 [facility] ([place] Comment on above: Performed By: #### C BC, ADIFF, ANEU, LIP, BMP, GFR, MG, HEPAC ####[place] [address] Hemoglobin mass conc (Bld) 12.1 G/dL Low 13.0-17.5 [facility] ([place] Comment on above: Performed By: #### C BC, ADIFF, ANEU, LIP, BMP, GFR, MG, HEPAC ####[place] [address] MCH Auto Entitic mass (RBC) 34.2 pg High 27.0-33.0 [facility] ([place] Comment on above: Performed By: #### C BC, ADIFF, ANEU, LIP, BMP, GFR, MG, HEPAC ####[place] [address] MCHC Auto mass conc (RBC) 35.4 G/dL Normal 32.0-36.0 [facility] ([place] Comment on above: Performed By: #### C BC, ADIFF, ANEU, LIP, BMP, GFR, MG, HEPAC ####[place] [address] MCV Auto Entitic volume (RBC) 96.7 fL Normal 81.0-100.0 [facility] ([place] Comment on above: Performed By: #### C BC, ADIFF, ANEU, LIP, BMP, GFR, MG, HEPAC ####[place] [address] Platelet mean volume Auto Entitic volume (Bld) 6.9 fL Normal 6.4-10.5 [facility] ([place] Comment on above: Performed By: #### C BC, ADIFF, ANEU, LIP, BMP, GFR, MG, HEPAC ####[place] [address] Platelets Auto #/vol (Bld) 135 10 3/mcL Low 150-450 [facility] ([place] Comment on above: Performed By: #### C BC, ADIFF, ANEU, LIP, BMP, GFR, MG, HEPAC ####[place] [address] RBC Auto #/vol (Bld) 3.53 10 6/mcL Low 4.50-6.00 A [facility] ([place] Comment on above: Performed By: #### C BC, ADIFF, ANEU, LIP, BMP, GFR, MG, HEPAC ####[place] [address] WBC Auto #/vol (Bld) 5.60 10 3/mcL Normal 4.50-10.80 A [facility] ([place] Comment on above: Performed By: #### C BC, ADIFF, ANEU, LIP, BMP, GFR, MG, HEPAC ####[place] [address] CMPon 07-12-2017 Albumin/Globulin mass ratio 0.7 {ratio} Low 0.9-1.6 [facility] ([place] Comment on above: Performed By: #### C BC, ADIFF, ANEU, LIP, BMP, GFR, MG, HEPAC ####[place] [address] ALP enzyme act/vol 231 U/L High 38-126 [facility] ([place] Comment on above: Performed By: #### C BC, ADIFF, ANEU, LIP, BMP, GFR, MG, HEPAC ####[place] [address] ALT enzyme act/vol 109 U/L High 12-55 [facility] ([place] Comment on above: Performed By: #### C BC, ADIFF, ANEU, LIP, BMP, GFR, MG, HEPAC ####[place] [address] Bili Total 4.1 mg/dL High 0.2-1.2 [facility] ([place] Comment on above: Performed By: #### C BC, ADIFF, ANEU, LIP, BMP, GFR, MG, HEPAC ####[address] [place] [address] Creatinine mass conc 0.94 mg/dL Normal 0.60-1.40 [facility] ([place] Comment on above: Performed By: #### C BC, ADIFF, ANEU, LIP, BMP, GFR, MG, HEPAC ####[address] [address] Globulin Calculated mass conc (S) 4.4 G/dL High 1.5-3.8 [facility] ([place] Comment on above: Performed By: #### C BC, ADIFF, ANEU, LIP, BMP, GFR, MG, HEPAC ####[place] [address] Protein mass conc 7.5 G/dL Normal 6.0-8.5 [facility] ([place] Comment on above: Performed By: #### C BC, ADIFF, ANEU, LIP, BMP, GFR, MG, HEPAC ####[place] [address] Urea nitrogen/Creatinine mass ratio 20.2 ratio Normal 10.0-22.0 [facility] ([place] Comment on above: Performed By: #### C BC, ADIFF, ANEU, LIP, BMP, GFR, MG, HEPAC ####[place] [address] Albumin mass conc 3.1 G/dL Low 3.2-4.8 [facility] ([place] Comment on above: Performed By: #### C BC, ADIFF, ANEU, LIP, BMP, GFR, MG, HEPAC ####[place] [address] AST enzyme act/vol 97 U/L High 8-34 [facility] ([place] Comment on above: Performed By: #### C BC, ADIFF, ANEU, LIP, BMP, GFR, MG, HEPAC ####[place] [address] Calcium mass conc 8.6 mg/dL Normal 8.4-10.1 [facility] ([place] Comment on above: Performed By: #### C BC, ADIFF, ANEU, LIP, BMP, GFR, MG, HEPAC ####[place] [address] Chloride molar conc 98 mmol/L Normal 98-110 [facility] [place] Comment on above: Performed By: #### C BC, ADIFF, ANEU, LIP, BMP, GFR, MG, HEPAC ####[place] [address] CO2 molar conc 18 mmol/L Low 22-32 [facility] ([place] Comment on above: Performed By: #### C BC, ADIFF, ANEU, LIP, BMP, GFR, MG, HEPAC ####[place] [address] Electrolyte Balance 15.0 mEq/L Normal 4.0-15.0 [facility] [place] Comment on above: Performed By: #### C BC, ADIFF, ANEU, LIP, BMP, GFR, MG, HEPAC ####[place] [address] Glucose mass conc 193 mg/dL High 70-110 [facility] ([place] Comment on above: Performed By: #### C BC, ADIFF, ANEU, LIP, BMP, GFR, MG, HEPAC ####[place] [address] Potassium molar conc 4.0 mmol/L Normal 3.5-5.0 [facility] ([place] Comment on above: Performed By: #### C BC, ADIFF, ANEU, LIP, BMP, GFR, MG, HEPAC ####[place] [address] Sodium molar conc 131 mmol/L Low 136-145 [facility] ([place] Comment on above: Performed By: #### C BC, ADIFF, ANEU, LIP, BMP, GFR, MG, HEPAC ####[place] [address] Urea nitrogen mass conc 19.0 mg/dL Normal 8.0-22.0 [facility] ([place] Comment on above: Performed By: #### C BC, ADIFF, ANEU, LIP, BMP, GFR, MG, HEPAC ####[place] [address] MGon 07-12-2017 Magnesium mass conc 1.6 mg/dL Normal 1.6-2.4 [facility] [place] Comment on above: Performed By: #### C BC, ADIFF, ANEU, LIP, BMP, GFR, MG, HEPAC ####[place] [address] .Auto Diffon 07-11-2017 Ammonia mass conc (P) 0.40 10 3/mcL Normal 0.09-1.40 [facility] ([place]) Comment on above: Performed By: #### C BC, ADIFF, ANEU, LIP, BMP, GFR, MG, HEPAC ####[place] [address] Basophils Auto #/vol (Bld) 0.00 10 3/mcL Normal 0.00-0.27 [facility] ([place] Comment on above: Performed By: #### C BC, ADIFF, ANEU, LIP, BMP, GFR, MG, HEPAC ####[place] [address] Basophils/100 WBC Auto (Bld) 0.7 % Normal 0.0-2.5 [facility] ([place] Comment on above: Performed By: #### C BC, ADIFF, ANEU, LIP, BMP, GFR, MG, HEPAC ####[place] [address] Eosinophils Auto #/vol (Bld) 0.10 10 3/mcL Normal 0.00-0.65 [facility] ([place] Comment on above: Performed By: #### C BC, ADIFF, ANEU, LIP, BMP, GFR, MG, HEPAC ####[place] [address] Eosinophils/100 WBC Auto (Bld) 1.8 % Normal 0.0-6.0 [facility] ([place] Comment on above: Performed By: #### C BC, ADIFF, ANEU, LIP, BMP, GFR, MG, HEPAC ####[place] [address] Lymphocytes Auto #/vol (Bld) 0.60 10 3/mcL Low 0.90-4.32 [facility] ([place] Comment on above: Performed By: #### C BC, ADIFF, ANEU, LIP, BMP, GFR, MG, HEPAC ####[address] [address] Lymphocytes/100 WBC Auto (Bld) 11.2 % Low 20.0-40.0 [facility] [place] Comment on above: Performed By: #### C BC, ADIFF, ANEU, LIP, BMP, GFR, MG, HEPAC ####[address] [address] Monocytes/100 WBC Auto (Bld) 7.3 % Normal 2.0-13.0 [facility] ([place] Comment on above: Performed By: #### C BC, ADIFF, ANEU, LIP, BMP, GFR, MG, HEPAC ####[address] [address] Neutrophils/100 WBC Auto (Bld) 79.0 % High 50.0-75.0 [facility] ([place] Comment on above: Performed By: #### C BC, ADIFF, ANEU, LIP, BMP, GFR, MG, HEPAC ####[address] [address] .GFRon 07-11-2017 GFR Non- >60 Normal [facility] ([place] Comment on above: Result Comment: GFR Population mean for , Non- Americans Ages 20-29 = 116 mL/min/1.73 sq.m. Ages 30-39 = 107 mL/min/1.73 sq.m. Ages 40-49 = 99 mL/min/1.73 sq.m. Ages 50-59 = 93 mL/min/1.73 sq.m. Ages 60-69 = 85 mL/min/1.73 sq.m. Ages 70+ = 75 mL/min/1.73 sq.m.Chronic Kidney Disease: Less than 60 mL/min/1.73 square metersEnd Stage Renal Disease: Less than 15 mL/min/1.73 square meters Performed By: #### C BC, ADIFF, ANEU, LIP, BMP, GFR, MG, HEPAC ####[place] [address] GFR >60 Normal [facility] ([place] Comment on above: Result Comment: GFR Population mean for , Non- Americans Ages 20-29 = 116 mL/min/1.73 sq.m. Ages 30-39 = 107 mL/min/1.73 sq.m. Ages 40-49 = 99 mL/min/1.73 sq.m. Ages 50-59 = 93 mL/min/1.73 sq.m. Ages 60-69 = 85 mL/min/1.73 sq.m. Ages 70+ = 75 mL/min/1.73 sq.m.Chronic Kidney Disease: Less than 60 mL/min/1.73 square metersEnd Stage Renal Disease: Less than 15 mL/min/1.73 square meters Performed By: #### C BC, ADIFF, ANEU, LIP, BMP, GFR, MG, HEPAC ####[place] [address] .NEUABSon 07-11-2017 Neutrophil, Absolute 4.30 10 3/mcL Normal 2.25-8.10 A [facility] ([place] Comment on above: Performed By: #### C BC, ADIFF, ANEU, LIP, BMP, GFR, MG, HEPAC ####[place] [address] BMPon 07-11-2017 Creatinine mass conc 0.98 mg/dL Normal 0.60-1.40 [facility] ([place] Comment on above: Performed By: #### C BC, ADIFF, ANEU, LIP, BMP, GFR, MG, HEPAC ####[place] [address] Urea nitrogen/Creatinine mass ratio 20.4 ratio Normal 10.0-22.0 [facility] ([place] Comment on above: Performed By: #### C BC, ADIFF, ANEU, LIP, BMP, GFR, MG, HEPAC ####[place] [address] Calcium mass conc 8.5 mg/dL Normal 8.4-10.1 [facility] [place] Comment on above: Performed By: #### C BC, ADIFF, ANEU, LIP, BMP, GFR, MG, HEPAC ####[place] [address] Chloride molar conc 98 mmol/L Normal 98-110 [facility] [place] Comment [place] above: Performed By: #### C BC, ADIFF, ANEU, LIP, BMP, GFR, MG, HEPAC ####[place] [address] CO2 molar conc 19 mmol/L Low 22-32 [facility] ([place] Comment on above: Performed By: #### C BC, ADIFF, ANEU, LIP, BMP, GFR, MG, HEPAC ####[place] [address] Electrolyte Balance 13.0 mEq/L Normal 4.0-15.0 [facility] [place] Comment on above: Performed By: #### C BC, ADIFF, ANEU, LIP, BMP, GFR, MG, HEPAC ####[place] [address] Glucose mass conc 183 mg/dL High 70-110 [facility] ([place] Comment on above: Performed By: #### C BC, ADIFF, ANEU, LIP, BMP, GFR, MG, HEPAC ####[place] [address] Potassium molar conc 3.7 mmol/L Normal 3.5-5.0 [facility] ([place] Comment on above: Performed By: #### C BC, ADIFF, ANEU, LIP, BMP, GFR, MG, HEPAC ####[place] [address] Sodium molar conc 130 mmol/L Low 136-145 [facility] [place] Comment on above: Performed By: #### C BC, ADIFF, ANEU, LIP, BMP, GFR, MG, HEPAC ####[place] [address] Urea nitrogen mass conc 20.0 mg/dL Normal 8.0-22.0 [facility] ([place] Comment on above: Performed By: #### C BC, ADIFF, ANEU, LIP, BMP, GFR, MG, HEPAC ####[place] [address] CBCon 07-11-2017 Erythrocyte distribution width Auto Ratio (RBC) 16.0 % High 11.5-15.5 [facility] ([place] Comment on above: Performed By: #### C BC, ADIFF, ANEU, LIP, BMP, GFR, MG, HEPAC ####[place] [address] Hematocrit Auto Volume Fraction (Bld) 33.8 % Low 40.0-52.0 [facility] ([place] Comment on above: Performed By: #### C BC, ADIFF, ANEU, LIP, BMP, GFR, MG, HEPAC ####[place] [address] Hemoglobin mass conc (Bld) 12.1 G/dL Low 13.0-17.5 [facility] ([place] Comment on above: Performed By: #### C BC, ADIFF, ANEU, LIP, BMP, GFR, MG, HEPAC ####[place] [address] MCH Auto Entitic mass (RBC) 34.5 pg High 27.0-33.0 [facility] ([place] Comment on above: Performed By: #### C BC, ADIFF, ANEU, LIP, BMP, GFR, MG, HEPAC ####[place] [address] MCHC Auto mass conc (RBC) 35.8 G/dL Normal 32.0-36.0 [facility] ([place] Comment on above: Performed By: #### C BC, ADIFF, ANEU, LIP, BMP, GFR, MG, HEPAC ####[place] [address] MCV Auto Entitic volume (RBC) 96.5 fL Normal 81.0-100.0 [facility] ([place] Comment on above: Performed By: #### C BC, ADIFF, ANEU, LIP, BMP, GFR, MG, HEPAC ####[place] [address] Platelet mean volume Auto Entitic volume (Bld) 6.9 fL Normal 6.4-10.5 [facility] ([place] Comment on above: Performed By: #### C BC, ADIFF, ANEU, LIP, BMP, GFR, MG, HEPAC ####[place] [address] Platelets Auto #/vol (Bld) 124 10 3/mcL Low 150-450 [facility] ([place] Comment on above: Performed By: #### C BC, ADIFF, ANEU, LIP, BMP, GFR, MG, HEPAC ####[place] [address] RBC Auto #/vol (Bld) 3.51 10 6/mcL Low 4.50-6.00 A [facility] [place] Comment on above: Performed By: #### C BC, ADIFF, ANEU, LIP, BMP, GFR, MG, HEPAC ####[place] [address] WBC Auto #/vol (Bld) 5.50 10 3/mcL Normal 4.50-10.80 A [facility] [place] Comment on above: Performed By: #### C BC, ADIFF, ANEU, LIP, BMP, GFR, MG, HEPAC ####[place] [address] HEPACon 07-11-2017 Hep A IgM Ab Negative Normal Negative [facility] ([place] Comment on above: Performed By: #### C BC, ADIFF, ANEU, LIP, BMP, GFR, MG, HEPAC ####[place] [address] Hep A IgM Ab Int No serological evide nce of a current Hepatitis A infection. Normal [facility] ([place] Comment on above: Performed By: #### C BC, ADIFF, ANEU, LIP, BMP, GFR, MG, HEPAC ####[place] [address] Hep B Core IgM Ab Negative Normal Negative [facility] ([place] Comment on above: Result Comment: No s erological evidence of ACUTE Hepatitis B infection. Performed By: #### C BC, ADIFF, ANEU, LIP, BMP, GFR, MG, HEPAC ####[place] [address] Hep B Surf Ag Negative Normal Negative [facility] ([place] Comment on above: Performed By: #### C BC, ADIFF, ANEU, LIP, BMP, GFR, MG, HEPAC ####[place] [address] Hep C Ab Negative Normal Negative [facility] ([place] Comment on above: Performed By: #### C BC, ADIFF, ANEU, LIP, BMP, GFR, MG, HEPAC ####[place] [address] Hep C Ab Int No serological evide nce of Hepatitis C infection, although levels of anti-HCV may be undetectable in early infection. Normal [facility] ([place] Comment on above: Performed By: #### C BC, ADIFF, ANEU, LIP, BMP, GFR, MG, HEPAC ####[place] [address] LIPon 07-11-2017 Lipase Level 612 U/L High 73-393 [facility] ([place] Comment on above: Performed By: #### C BC, ADIFF, ANEU, LIP, BMP, GFR, MG, HEPAC ####[place] [address] MGon 07-11-2017 Magnesium mass conc 0.9 mg/dL Critically abnormal 1.6-2.4 [facility] ([place] Comment on above: Performed By: #### C BC, ADIFF, ANEU, LIP, BMP, GFR, MG, HEPAC ####[place] [address] MRI MRCPon 07-11-2017 MRI MRCP ORIGINALMRI NONCONTR AST MRCP WITH CONSOLE POST-PROCESSING AND 3-d RECONSTRUCTIONS CLINICAL STATEMENT: elevated lfts. pancreatitis, upper abdominal pain COMPARISON: Ultrasound right upper quadrant 07/11/2017 FINDINGS:This is a non-contrast study and is not intended or optimized for evaluating solid organ pathology, including mass lesions. There is no intra or extrahepatic bile duct dilatation. Common duct shows normal distal tapering without any calculus. There is no dilatation of the pancreatic duct. There is some peripancreatic stranding that may indicate acute pancreatitis. This is poorly evaluated due to patient's large body habitus and resulting artifacts. No suggestion of pancreas divisum. The gallbladder is present and contains calculi. There is no abnormal gallbladder wall thickening or pericholecystic edema. There is moderate to marked splenomegaly with maximum vertical dimension of at least 19.3 cm. The splenic vein is engorged. The left kidney has a 2.4 cm cortical cyst.. IMPRESSION:Normal evaluation of the bile ducts and pancreatic duct. Gallstones as seen on ultrasound also. Moderate to marked splenomegaly of uncertain etiology.. Interpreted By: Alexander Polk MDPreliminary Report By: Alexander Polk MDElectronically Signed By: Alexander Polk MD Dictated Date: 07/11/2017 4:47:15 PM Prelim Date: 07/11/2017 4:47:15 PM Sign Date: 07/11/2017 4:49:58 PM Normal [facility] ([place]) US ABDOMEN LIMITEDon 05-01-2 018 US ABDOMEN LIMITED ORIGINALUltrasound o f the RIGHT upper quadrant CLINICAL STATEMENT: gall stone pancreatitis with jaundice, COMPARISON: None FINDINGS:The entire study is moderately compromised by body habitus and bowel gas artifacts. On the right upper quadrant abdominal organs are suboptimally visualized and pathology could be obscured. The gallbladder is filled with stones with posterior shadowing. There is no abnormal anterior wall thickening. Negative sonographic Lindquist sign.. There is no intra or extrahepatic bile duct dilatation. The common duct is 5 mm at the xavier hepatis. The visualized liver is essentially normal in size and echogenicity. Mild fatty change is not excluded. No focal lesion is seen but this is also not excludable. The pancreas is only visualized in the body portion which appears abnormally thickened and heterogeneous. The head and tail regions are obscured. No peripancreatic fluid collection is seen. No ascites is seen in the RIGHT upper quadrant. Limited Survey images of the right kidney show no pelvocaliectasis. IMPRESSION:Studies is compromised by artifacts from body habitus and bowel gas. Gallstones without other signs of acute cholecystitis. Pancreatic body appears heterogeneous and abnormally thickened. The remainder of the pancreas is obscured. Consider CT for further evaluation of the pancreas and peripancreatic tissues if clinically warranted. Interpreted By: Alexander Polk MDPreliminary Report By: Alexander Polk MDElectronically Signed By: Alexander Polk MD Dictated Date: 07/11/2017 10:59:22 AM Prelim Date: 07/11/2017 10:59:22 AM Sign Date: 07/11/2017 11:02:00 AM Normal [facility] ([place]) Vital Signs Date Time Vital Sign Value Performing Clinician Homero conner 10-15-2024 08:13-0400 Body mass index (BMI) [Ratio] 69 kg/m2 Jrodana Baez [employer] Work Phone: 6(773)[phone] [place] [address] 10-15-2024 08:13-0400 Body temperature 97.4 [degF] Jordana Baez [employer] Work Phone: 1(508)[phone] [place] [address] 10-15-2024 08:13-0400 Body weight 218.17 kg Jordana Baez [employer] Work Phone: 0(054)[phone] [place] [address] 10-15-2024 08:13-0400 Diastolic blood pressure 108 mm[Hg] Jordana Baez [employer] Work Phone: 2(085)014-875537 [place] [address] 10-15-2024 08:13-0400 Heart rate 76 /min Jordanacassie Baez [employer] Work Phone: 1(095)452-515737 [place] [address] 10-15-2024 08:13-0400 Respiratory rate 20 /min Jordana Baez [employer] Work Phone: 5(309)[phone] [place] [address] 10-15-2024 08:13-0400 SaO2% (BldA) [Mass fraction] 93 % Jordana Baez [employer] Work Phone: 2(596)[phone] [place] [address] 10-15-2024 08:13-0400 Systolic blood pressure 158 mm[Hg] Jordana Baez [employer] Work Phone: 9(917)[phone] [place] [address] 10-11-2024 07:41-0400 Body mass index (BMI) [Ratio] 68.1 kg/m2 Jordana Baez [employer] Work Phone: 2(471)004-334537 [place] [address] 10-11-2024 07:41-0400 Body weight 215.45 kg Jordana Baez [employer] Work Phone: 8(289)[phone] [place] [address] 10-11-2024 07:41-0400 Diastolic blood pressure 99 mm[Hg] Jordana Baez [employer] Work Phone: 6(876)494-256737 [place] [address] 10-11-2024 07:41-0400 Heart rate 87 /min Jordana Baez [employer] Work Phone: 6(637)579-944637 [place] [address] 10-11-2024 07:41-0400 Respiratory rate 20 /min Jordana Baez [employer] Work Phone: 9(291)[phone] [place] [address] 10-11-2024 07:41-0400 SaO2% (BldA) [Mass fraction] 95 % Jordana Baez [employer] Work Phone: 4(735)[phone] [place] [address] 10-11-2024 07:41-0400 Systolic blood pressure 130 mm[Hg] Jordana Baez [employer] Work Phone: 2(937)[phone] [place] [address] 09-11-2024 05:32-0400 Body mass index (BMI) [Ratio] 68.1 kg/m2 Jordana Baez [employer] Work Phone: 5(796)939-816237 [place] [address] 09-11-2024 05:32-0400 Body temperature 97.1 [degF] Jordana Baez [employer] Work Phone: 0(678)164-371737 [place] [address] 09-11-2024 05:32-0400 Body weight 215.45 kg Jordana Baez [employer] Work Phone: 9(734)146-047037 [place] [address] 09-11-2024 05:32-0400 Diastolic blood pressure 100 mm[Hg] Jordana Baez [employer] Work Phone: 7(191)790-422537 [place] [address] 09-11-2024 05:32-0400 Heart rate 76 /min Jordana Baez [employer] Work Phone: 8(415)535-712537 [place] [address] 09-11-2024 05:32-0400 Respiratory rate 20 /min Jordana Baez [employer] Work Phone: 4(629)362-957737 [place] [address] 09-11-2024 05:32-0400 SaO2% (BldA) [Mass fraction] 96 % Jordana Baez [employer] Work Phone: 2(434)[phone] [place] [address] 09-11-2024 05:32-0400 Systolic blood pressure 146 mm[Hg] Jordana Baez [employer] Work Phone: 8(339)756-935337 [place] [address] 08-07-2024 07:11-0400 Body mass index (BMI) [Ratio] 68.1 kg/m2 Jordana Baez [employer] Work Phone: 6(684)[phone] [place] [address] 08-07-2024 07:11-0400 Body temperature 97.3 [degF] Jordana Baez [employer] Work Phone: 2(837)[phone] [place] [address] 08-07-2024 07:11-0400 Body weight 215.45 kg Jordana Baez [employer] Work Phone: 2(222)312-816637 [place] [address] 08-07-2024 07:11-0400 Diastolic blood pressure 80 mm[Hg] Jordana Baez [employer] Work Phone: 3(735)276-963537 [place] [address] 08-07-2024 07:11-0400 Heart rate 78 /min Jordana Baez [employer] Work Phone: 3(074)030-836537 [place] [address] 08-07-2024 07:11-0400 Respiratory rate 22 /min Jordana Baez [employer] Work Phone: 9(977)913-179537 [place] [address] 08-07-2024 07:11-0400 SaO2% (BldA) [Mass fraction] 99 % Jordana Baez [employer] Work Phone: 5(338)922-419337 [place] [address] 08-07-2024 07:11-0400 Systolic blood pressure 129 mm[Hg] Jordana Baze [employer] Work Phone: 2(274)[phone] [place] [address] 07-23-2024 07:54-0400 Body mass index (BMI) [Ratio] 68.5 kg/m2 Jordana Baez [employer] Work Phone: 3(429)567-301037 [place] [address] 07-23-2024 07:54-0400 Body temperature 97.4 [degF] Jordana Baez [employer] Work Phone: 8(623)277-021837 [place] [address] 07-23-2024 07:54-0400 Body weight 216.81 kg Jordana Baez [employer] Work Phone: 1(705)055-078537 [place] [address] 07-23-2024 07:54-0400 Diastolic blood pressure 99 mm[Hg] Jordana Baez [employer] Work Phone: 4(213)147-258337 [place] [address] 07-23-2024 07:54-0400 Heart rate 78 /min Jordana Baez [employer] Work Phone: 2(726)713-296337 [place] [address] 07-23-2024 07:54-0400 Respiratory rate 20 /min Jordana Baez [employer] Work Phone: 8(142)212-679337 [place] [address] 07-23-2024 07:54-0400 SaO2% (BldA) [Mass fraction] 99 % Jordana Baez [employer] Work Phone: 5(671)077-109837 [place] [address] 07-23-2024 07:54-0400 Systolic blood pressure 153 mm[Hg] Jordana Baez [employer] Work Phone: 6(795)992-962337 [place] [address] 07-11-2024 09:43-0400 Body height 177.8 cm Jordana Baez [employer] Work Phone: 5(909)144-883137 [place] [address] 07-11-2024 09:43-0400 Body mass index (BMI) [Ratio] 68.5 kg/m2 Jordana Baez [employer] Work Phone: 4(406)785-552637 [place] [address] 07-11-2024 09:43-0400 Body weight 216.81 kg Jordana Baez [employer] Work Phone: 2(622)906-029737 [place] [address] 07-11-2024 09:43-0400 Diastolic blood pressure 76 mm[Hg] Jordana Baez [employer] Work Phone: 1(517)692-721237 [place] [address] 07-11-2024 09:43-0400 Heart rate 73 /min Jordana Baez [employer] Work Phone: 0(771)728-900737 [place] [address] 07-11-2024 09:43-0400 SaO2% (BldA) [Mass fraction] 99 % Jordana Baez [employer] Work Phone: 1(045)373-095537 [place] [address] 07-11-2024 09:43-0400 Systolic blood pressure 112 mm[Hg] Jordana Baez [employer] Work Phone: 8(077)642-868037 [place] [address] 07-10-2024 12:53-0400 Body mass index (BMI) [Ratio] 68.5 kg/m2 Jordana Baez [employer] Work Phone: 9(885)498-826937 [place] [address] 07-10-2024 12:53-0400 Body weight 216.81 kg Jordana Baez [employer] Work Phone: 3(095)966-911837 [place] [address] 07-10-2024 12:53-0400 Diastolic blood pressure 71 mm[Hg] Jordana Baez [employer] Work Phone: 3(067)649-814737 [place] [address] 07-10-2024 12:53-0400 Heart rate 76 /min Jordana Baez [employer] Work Phone: 1(592)600-431237 [place] [address] 07-10-2024 12:53-0400 Respiratory rate 18 /min Jordana Baez [employer] Work Phone: 5(222)783-678337 [place] [address] 07-10-2024 12:53-0400 Systolic blood pressure 110 mm[Hg] Jordana Baez [employer] Work Phone: 9(539)288-344037 [place] [address] 06-18-2024 13:41-0400 Body temperature 97.4 [degF] Jordana Baez [employer] Work Phone: 1(224)955-106137 [place] [address] 06-18-2024 13:41-0400 Diastolic blood pressure 89 mm[Hg] Jordana Baez [employer] Work Phone: 6(809)284-931137 [place] [address] 06-18-2024 13:41-0400 Heart rate 100 /min Jordana Baez [employer] Work Phone: 0(098)627-339337 [place] [address] 06-18-2024 13:41-0400 Respiratory rate 16 /min Jordana Baez [employer] Work Phone: 7(467)660-340237 [place] [address] 06-18-2024 13:41-0400 SaO2% (BldA) [Mass fraction] 97 % Jordana Baez [employer] Work Phone: 4(027)739-909137 [place] [address] 06-18-2024 13:41-0400 Systolic blood pressure 135 mm[Hg] Jordana Baez [employer] Work Phone: 5(446)269-246937 [place] [address] 06-16-2024 11:35-0400 Body height 177.8 cm Jordanacassie Baez [employer] Work Phone: 5(208)128-873988 [place] [address] 06-16-2024 11:35-0400 Body weight 226 kg Jordanaerrol Baez [employer] Work Phone: 4(169)949-980137 [place] [address] 06-14-2024 17:41-0400 Body mass index (BMI) [Ratio] 71.3 kg/m2 Jordanaerrol Baez [employer] Work Phone: 1(826)829-689488 [place] [address] 06-14-2024 16:43-0400 Body temperature 98.2 [degF] Jordanaerrol Baez [employer] Work Phone: 3(666)001-163088 [place] [address] 06-14-2024 16:43-0400 Diastolic blood pressure 71 mm[Hg] Jordanacassie Baez [employer] Work Phone: 2(308)812-067488 [place] [address] 06-14-2024 16:43-0400 Heart rate 98 /min Jordanaerrol Baez [employer] Work Phone: 3(431)246-709788 [place] [address] 06-14-2024 16:43-0400 Respiratory rate 20 /min Jordanaerrol Baez [employer] Work Phone: 1(979)272-231988 [place] [address] 06-14-2024 16:43-0400 SaO2% (BldA) [Mass fraction] 97 % Jordanaerrol Baez [employer] Work Phone: 7(297)099-142588 [place] [address] 06-14-2024 16:43-0400 Systolic blood pressure 116 mm[Hg] Jordana Baez [employer] Work Phone: 1(083)961-555288 [place] [address] 06-14-2024 15:32-0400 Body mass index (BMI) [Ratio] 71.4 kg/m2 Jordanaerrol Baez [employer] Work Phone: 1(519)545-512688 [place] [address] 06-14-2024 15:32-0400 Body weight 226 kg Jordanaerrol Baez [employer] Work Phone: 6(137)392-946488 [place] [address] 06-14-2024 14:15-0400 Body height 177.8 cm Jordana Baez [employer] Work Phone: 4(470)396-832388 [place] [address] 05-07-2024 08:13-0500 Body mass index (BMI) [Ratio] 71.7 kg/m2 Jordana Baez [employer] Work Phone: 9(237)350-704488 [place] [address] 05-07-2024 08:13-0500 Body weight 226.79 kg Jordana Baez [employer] Work Phone: 1(506)100-083937 [place] [address] 05-07-2024 08:13-0500 Diastolic blood pressure 93 mm[Hg] Jordana Baez [employer] Work Phone: 3(503)701-473937 [place] [address] 05-07-2024 08:13-0500 Heart rate 92 /min Jordana Baez [employer] Work Phone: 6(797)562-869137 [place] [address] 05-07-2024 08:13-0500 Respiratory rate 18 /min Jordana Baez [employer] Work Phone: 6(500)733-169337 [place] [address] 05-07-2024 08:13-0500 Systolic blood pressure 135 mm[Hg] Jordana Baez [employer] Work Phone: 2(854)040-846537 [place] [address] 04-30-2024 07:49-0500 Body mass index (BMI) [Ratio] 71.7 kg/m2 Jordana Baez [employer] Work Phone: 9(256)581-078037 [place] [address] 04-30-2024 07:49-0500 Body temperature 97 [degF] Jordana Baez [employer] Work Phone: 5(733)538-080837 [place] [address] 04-30-2024 07:49-0500 Body weight 226.79 kg Jordana Baez [employer] Work Phone: 5(853)409-719637 [place] [address] 04-30-2024 07:49-0500 Diastolic blood pressure 73 mm[Hg] Jordana Baez [employer] Work Phone: 8(697)007-756537 [place] [address] 04-30-2024 07:49-0500 Heart rate 80 /min Jordana Baez [employer] Work Phone: 5(432)633-532037 [place] [address] 04-30-2024 07:49-0500 Respiratory rate 20 /min Jordana Baez [employer] Work Phone: 0(200)078-435037 [place] [address] 04-30-2024 07:49-0500 SaO2% (BldA) [Mass fraction] 97 % Jordana Baez [employer] Work Phone: 9(623)513-331237 [place] [address] 04-30-2024 07:49-0500 Systolic blood pressure 106 mm[Hg] Jordana Baez [employer] Work Phone: 7(262)519-159537 [place] [address] 04-24-2024 11:44-0500 Body mass index (BMI) [Ratio] 71.8 kg/m2 Jordanacassie Baez [employer] Work Phone: 0(758)957-932037 [place] [address] 04-24-2024 11:44-0500 Body weight 227.24 kg Jordanacassie Baez [employer] Work Phone: 8(948)136-931037 [place] [address] 04-24-2024 11:44-0500 Diastolic blood pressure 73 mm[Hg] Jordana Baez [employer] Work Phone: 7(382)430-316237 [place] [address] 04-24-2024 11:44-0500 Heart rate 78 /min Jordana Baez [employer] Work Phone: 0(354)756-532037 [place] [address] 04-24-2024 11:44-0500 SaO2% (BldA) [Mass fraction] 97 % Jordanacassie Baez [employer] Work Phone: 1(008)225-088637 [place] [address] 04-24-2024 11:44-0500 Systolic blood pressure 117 mm[Hg] Jordana Baez [employer] Work Phone: 0(133)313-135137 [place] [address] 03-19-2024 08:26-0500 Body mass index (BMI) [Ratio] 69.9 kg/m2 Jordana Baez [employer] Work Phone: 3(024)408-917337 [place] [address] 03-19-2024 08:26-0500 Body temperature 97.4 [degF] Jordana Baez [employer] Work Phone: 3(263)139-948537 [place] [address] 03-19-2024 08:26-0500 Body weight 221.35 kg Jordana Baez [employer] Work Phone: 4(589)230-183937 [place] [address] 03-19-2024 08:26-0500 Diastolic blood pressure 76 mm[Hg] Jordana Baez [employer] Work Phone: 2(543)633-477837 [place] [address] 03-19-2024 08:26-0500 Heart rate 80 /min Jordana Baez [employer] Work Phone: 9(030)245-072337 [place] [address] 03-19-2024 08:26-0500 Respiratory rate 20 /min Jordana Baez [employer] Work Phone: 3(774)876-530537 [place] [address] 03-19-2024 08:26-0500 SaO2% (BldA) [Mass fraction] 98 % Jordana Baez [employer] Work Phone: 7(566)431-343537 [place] [address] 03-19-2024 08:26-0500 Systolic blood pressure 123 mm[Hg] Jordana Baez [employer] Work Phone: 7(976)789-290237 [place] [address] 02-20-2024 11:45-0500 Body weight 218.63 kg Jordana Baez [employer] Work Phone: 4(875)443-071437 [place] [address] 02-20-2024 11:45-0500 Heart rate 76 /min Jordana Baez [employer] Work Phone: 6(243)123-631437 [place] [address] 02-20-2024 11:45-0500 Inhaled oxygen flow rate 1 L/min Jordana Baez [employer] Work Phone: 4(509)491-946037 [place] [address] 02-20-2024 11:45-0500 SaO2% (BldA) [Mass fraction] 96 % Jordana Baez [employer] Work Phone: 4(522)896-204137 [place] [address] 07-10-2023 12:45-0400 Body temperature 97.2 [degF] [facility] Work Phone: 2(650)699-839137 [place] [address] 07-10-2023 12:45-0400 Diastolic blood pressure 74 mm[Hg] [facility] Work Phone: 5(715)821-699437 [place] [address] 07-10-2023 12:45-0400 Heart rate 75 /min [facility] Work Phone: 6(932)146-228437 [place] [address] 07-10-2023 12:45-0400 Respiratory rate 16 /min [facility] Work Phone: 7(191)560-865737 [place] [address] 07-10-2023 12:45-0400 SaO2% (BldA) [Mass fraction] 95 % [facility] Work Phone: 2(263)632-043437 [place] [address] 07-10-2023 12:45-0400 Systolic blood pressure 129 mm[Hg] [facility] Work Phone: 7(447)934-993937 [place] [address] 07-10-2023 09:42-0400 Body height 178 cm [facility] Work Phone: 6(827)415-223837 [place] [address] 07-10-2023 09:42-0400 Body mass index (BMI) [Ratio] 65.9 kg/m2 [facility] Work Phone: 1(703)741-368937 [place] [address] 07-10-2023 09:42-0400 Body weight 209.1 kg [facility] Work Phone: 9(662)529-800037 [place] [address] 05-15-2023 11:53-0500 Body height 177.8 cm [facility] Work Phone: 8(651)327-657537 [place] [address] 05-15-2023 11:53-0500 Body mass index (BMI) [Ratio] 67.2 kg/m2 [facility] Work Phone: 4(816)198-285137 [place] [address] 05-15-2023 11:53-0500 Body temperature 98.5 [degF] [facility] Work Phone: 6(137)205-855637 [place] [address] 05-15-2023 11:53-0500 Body weight 212.5 kg [facility] Work Phone: 1(735)224-382937 [place] [address] 05-15-2023 11:53-0500 Diastolic blood pressure 80 mm[Hg] [facility] Work Phone: 0(456)205-085237 [place] [address] 05-15-2023 11:53-0500 Heart rate 78 /min [facility] Work Phone: 8(664)670-204737 [place] [address] 05-15-2023 11:53-0500 Respiratory rate 16 /min [facility] Work Phone: 9(014)808-739737 [place] [address] 05-15-2023 11:53-0500 SaO2% (BldA) [Mass fraction] 98 % [facility] Work Phone: 1(831)374-411037 [place] [address] 05-15-2023 11:53-0500 Systolic blood pressure 118 mm[Hg] [facility] Work Phone: 9(208)813-722837 [place] [address] 01-26-2023 10:52-0500 Body height 177.8 cm [facility] Work Phone: 1(965)410-528537 [place] [address] 01-26-2023 10:52-0500 Body mass index (BMI) [Ratio] 66.9 kg/m2 [facility] Work Phone: 2(234)496-915337 [place] [address] 01-26-2023 10:52-0500 Body temperature 99.1 [degF] [facility] Work Phone: 4(851)874-441737 [place] [address] 01-26-2023 10:52-0500 Body weight 211.37 kg [facility] Work Phone: 2(638)946-139737 [place] [address] 01-26-2023 10:52-0500 Diastolic blood pressure 74 mm[Hg] [facility] Work Phone: 6(019)958-701837 [place] [address] 01-26-2023 10:52-0500 Heart rate 86 /min [facility] Work Phone: 5(399)127-408537 [place] [address] 01-26-2023 10:52-0500 Respiratory rate 15 /min [facility] Work Phone: 9(647)880-465637 [place] [address] 01-26-2023 10:52-0500 SaO2% (BldA) [Mass fraction] 96 % [facility] Work Phone: 4(018)347-354437 [place] [address] 01-26-2023 10:52-0500 Systolic blood pressure 130 mm[Hg] [facility] Work Phone: 1(223)143-169137 [place] [address] 11-27-2022 13:51-0400 Body height 177.8 cm [facility] Work Phone: 6(805)387-826837 [place] [address] 11-27-2022 13:51-0400 Body temperature 97.1 [degF] [facility] Work Phone: 6(917)254-853937 [place] [address] 11-27-2022 13:51-0400 Diastolic blood pressure 95 mm[Hg] [facility] Work Phone: 8(434)269-810037 [place] [address] 11-27-2022 13:51-0400 Heart rate 86 /min [facility] Work Phone: 9(081)827-208637 [place] [address] 11-27-2022 13:51-0400 Respiratory rate 18 /min [facility] Work Phone: 0(078)857-186337 [place] [address] 11-27-2022 13:51-0400 SaO2% (BldA) [Mass fraction] 96 % [facility] Work Phone: 6(551)824-220437 [place] [address] 11-27-2022 13:51-0400 Systolic blood pressure 173 mm[Hg] [facility] Work Phone: 4(640)307-859537 [place] [address] 11-21-2022 09:00-0400 Body temperature 97.7 [degF] [facility] Work Phone: 4(027)312-566337 [place] [address] 11-21-2022 09:00-0400 Diastolic blood pressure 73 mm[Hg] [facility] Work Phone: 4(567)106-149137 [place] [address] 11-21-2022 09:00-0400 Heart rate 85 /min [facility] Work Phone: 9(087)593-652937 [place] [address] 11-21-2022 09:00-0400 Respiratory rate 20 /min [facility] Work Phone: 7(692)700-606637 [place] [address] 11-21-2022 09:00-0400 SaO2% (BldA) [Mass fraction] 95 % [facility] Work Phone: 6(103)815-320837 [place] [address] 11-21-2022 09:00-0400 Systolic blood pressure 113 mm[Hg] [facility] Work Phone: 9(677)012-641437 [place] [address] 11-21-2022 08:50-0400 Inhaled oxygen flow rate 2 L/min [facility] Work Phone: 0(850)928-616837 [place] [address] 11-21-2022 07:21-0400 Body height 177.8 cm [facility] Work Phone: 8(227)511-734837 [place] [address] 11-21-2022 07:21-0400 Body mass index (BMI) [Ratio] 65.9 kg/m2 [facility] Work Phone: 3(596)890-524037 [place] [address] 11-21-2022 07:21-0400 Body weight 208.7 kg [facility] Work Phone: 3(524)544-486037 [place] [address] 09-22-2022 10:54-0400 Body height 177.8 cm [facility] Work Phone: 6(344)775-436937 [place] [address] 09-22-2022 10:54-0400 Body mass index (BMI) [Ratio] 66 kg/m2 [facility] Work Phone: 4(297)782-589237 [place] [address] 09-22-2022 10:54-0400 Body temperature 98.6 [degF] [facility] Work Phone: 1(015)224-094737 [place] [address] 09-22-2022 10:54-0400 Body weight 208.87 kg [facility] Work Phone: 4(117)933-703437 [place] [address] 09-22-2022 10:54-0400 Diastolic blood pressure 80 mm[Hg] [facility] Work Phone: 2(123)990-138937 [place] [address] 09-22-2022 10:54-0400 Heart rate 78 /min [facility] Work Phone: 6(552)170-165837 [place] [address] 09-22-2022 10:54-0400 Respiratory rate 18 /min [facility] Work Phone: 2(588)776-581937 [place] [address] 09-22-2022 10:54-0400 SaO2% (BldA) [Mass fraction] 97 % [facility] Work Phone: 6(108)599-038037 [place] [address] 09-22-2022 10:54-0400 Systolic blood pressure 126 mm[Hg] [facility] Work Phone: 3(067)413-620137 [place] [address] 09-19-2022 08:26-0400 Body mass index (BMI) [Ratio] 63.8 kg/m2 [facility] Work Phone: 5(642)387-949737 [place] [address] 09-19-2022 08:26-0400 Body temperature 98.2 [degF] [facility] Work Phone: 3(901)369-105237 [place] [address] 09-19-2022 08:26-0400 Body weight 201.84 kg [facility] Work Phone: 5(848)943-910337 [place] [address] 09-19-2022 08:26-0400 Diastolic blood pressure 83 mm[Hg] [facility] Work Phone: 6(329)442-378837 [place] [address] 09-19-2022 08:26-0400 Heart rate 75 /min [facility] Work Phone: 2(115)398-960337 [place] [address] 09-19-2022 08:26-0400 Respiratory rate 18 /min [facility] Work Phone: 3(940)107-834937 [place] [address] 09-19-2022 08:26-0400 SaO2% (BldA) [Mass fraction] 97 % [facility] Work Phone: 9(129)501-199537 [place] [address] 09-19-2022 08:26-0400 Systolic blood pressure 135 mm[Hg] [facility] Work Phone: 3(690)639-745837 [place] [address] 09-02-2022 18:39-0400 Diastolic blood pressure 85 mm[Hg] [facility] Work Phone: 2(971)829-057037 [place] [address] 09-02-2022 18:39-0400 Heart rate 72 /min [facility] Work Phone: 5(782)295-551437 [place] [address] 09-02-2022 18:39-0400 Respiratory rate 18 /min [facility] Work Phone: 1(018)086-807737 [place] [address] 09-02-2022 18:39-0400 SaO2% (BldA) [Mass fraction] 96 % [facility] Work Phone: 8(326)216-214437 [place] [address] 09-02-2022 18:39-0400 Systolic blood pressure 125 mm[Hg] [facility] Work Phone: 1(742)336-059937 [place] [address] 09-02-2022 16:30-0400 Body height 177.8 cm [facility] Work Phone: 6(638)004-455337 [place] [address] 09-02-2022 16:30-0400 Body mass index (BMI) [Ratio] 64.1 kg/m2 [facility] Work Phone: 0(847)506-643437 [place] [address] 09-02-2022 16:30-0400 Body temperature 96.9 [degF] [facility] Work Phone: 9(526)764-394437 [place] [address] 09-02-2022 16:30-0400 Body weight 202.75 kg [facility] Work Phone: 8(578)690-314637 [place] [address] 07-19-2022 13:20-0400 Body temperature 97.7 [degF] [facility] Work Phone: 5(561)916-217137 [place] [address] 07-19-2022 13:20-0400 Diastolic blood pressure 93 mm[Hg] [facility] Work Phone: 5(394)650-172537 [place] [address] 07-19-2022 13:20-0400 Heart rate 87 /min [facility] Work Phone: 9(761)255-148437 [place] [address] 07-19-2022 13:20-0400 Respiratory rate 18 /min [facility] Work Phone: 5(534)938-646537 [place] [address] 07-19-2022 13:20-0400 SaO2% (BldA) [Mass fraction] 94 % [facility] Work Phone: 1(099)708-435737 [place] [address] 07-19-2022 13:20-0400 Systolic blood pressure 144 mm[Hg] [facility] Work Phone: 2(015)684-583137 [place] [address] 07-19-2022 12:10-0400 Body height 177.8 cm [facility] Work Phone: 7(285)866-385037 [place] [address] 07-19-2022 12:10-0400 Body mass index (BMI) [Ratio] 64.5 kg/m2 [facility] Work Phone: 7(048)858-170137 [place] [address] 07-19-2022 12:10-0400 Body weight 204 kg [facility] Work Phone: 8(676)782-001837 [place] [address] 03-24-2022 10:39-0500 Body height 177.8 cm [facility] Work Phone: 0(327)948-889837 [place] [address] 03-24-2022 10:39-0500 Body mass index (BMI) [Ratio] 64.1 kg/m2 [facility] Work Phone: 2(056)698-613037 [place] [address] 03-24-2022 10:39-0500 Body temperature 96.5 [degF] [facility] Work Phone: 1(029)169-722737 [place] [address] 03-24-2022 10:39-0500 Body weight 202.75 kg [facility] Work Phone: 8(392)908-381637 [place] [address] 03-24-2022 10:39-0500 Diastolic blood pressure 71 mm[Hg] [facility] Work Phone: 6(370)926-256437 [place] [address] 03-24-2022 10:39-0500 Heart rate 76 /min [facility] Work Phone: 9(855)728-844037 [place] [address] 03-24-2022 10:39-0500 Respiratory rate 20 /min [facility] Work Phone: 9(819)244-849737 [place] [address] 03-24-2022 10:39-0500 SaO2% (BldA) [Mass fraction] 94 % [facility] Work Phone: 5(842)326-633937 [place] [address] 03-24-2022 10:39-0500 Systolic blood pressure 110 mm[Hg] [facility] Work Phone: 6(777)801-412137 [place] [address] 03-16-2022 10:17-0500 Diastolic blood pressure 68 mm[Hg] [facility] Work Phone: 1(485)975-890137 [place] [address] 03-16-2022 10:17-0500 Heart rate 86 /min [facility] Work Phone: 6(633)772-710237 [place] [address] 03-16-2022 10:17-0500 Respiratory rate 19 /min [facility] Work Phone: 9(447)474-251637 [place] [address] 03-16-2022 10:17-0500 SaO2% (BldA) [Mass fraction] 96 % [facility] Work Phone: 6(721)254-250937 [place] [address] 03-16-2022 10:17-0500 Systolic blood pressure 103 mm[Hg] [facility] Work Phone: 2(368)422-325337 [place] [address] 03-16-2022 08:25-0500 Body mass index (BMI) [Ratio] 64 kg/m2 [facility] Work Phone: 4(299)001-907037 [place] [address] 03-16-2022 08:25-0500 Body temperature 98.3 [degF] [facility] Work Phone: 3(202)786-546637 [place] [address] 03-16-2022 08:25-0500 Body weight 202.3 kg [facility] Work Phone: 3(750)111-819737 [place] [address] 12-20-2021 14:21-0400 Body height 177.8 cm [facility] Work Phone: [facility] Work Phone: 12-20-2021 14:21-0400 Body mass index (BMI) [Ratio] 64.5 kg/m2 [facility] Work Phone: [facility] 12-20-2021 14:21-0400 Body temperature 96.8 [degF] [facility] Work Phone: 9([phone])668-353775 [address] 12-20-2021 14:21-0400 Body weight 204.17 kg [facility] Work Phone: 6(269)595-282937 [place] [address] 12-20-2021 14:21-0400 Diastolic blood pressure 71 mm[Hg] [facility] Work Phone: 2(744)456-873337 [place] [address] 12-20-2021 14:21-0400 Heart rate 103 /min [facility] Work Phone: 8(610)366-792237 [place] [address] 12-20-2021 14:21-0400 Respiratory rate 20 /min [facility] Work Phone: 0(683)148-835975 [address] 12-20-2021 14:21-0400 SaO2% (BldA) [Mass fraction] 93 % [facility] Work Phone: 0(888)552-758475 [address] 12-20-2021 14:21-0400 Systolic blood pressure 104 mm[Hg] [facility] Work Phone: 3(292)707-190775 [address] 09-23-2021 11:05-0400 Body height 177.8 cm [facility] Work Phone: [facility] Work Phone: 09-23-2021 11:05-0400 Body mass index (BMI) [Ratio] 63.4 kg/m2 [facility] Work Phone: [facility] Work Phone: 09-23-2021 11:05-0400 Body temperature 95.9 [degF] [facility] Work Phone: [facility] Work Phone: 09-23-2021 11:05-0400 Body weight 200.65 kg [facility] Work Phone: [facility] Work Phone: 09-23-2021 11:05-0400 Diastolic blood pressure 92 mm[Hg] [facility] Work Phone: [facility] Work Phone: 09-23-2021 11:05-0400 Heart rate 110 /min [facility] Work Phone: [facility] Work Phone: 09-23-2021 11:05-0400 Respiratory rate 20 /min [facility] Work Phone: [facility] Work Phone: 09-23-2021 11:05-0400 SaO2% (BldA) [Mass fraction] 93 % [facility] Work Phone: [facility] Work Phone: 09-23-2021 11:05-0400 Systolic blood pressure 150 mm[Hg] [facility] Work Phone: [facility] Work Phone: 09-16-2021 06:06-0400 Body height 177.8 cm [facility] Work Phone: [facility] Work Phone: 09-16-2021 06:06-0400 Body mass index (BMI) [Ratio] 63.1 kg/m2 [facility] Work Phone: [facility] Work Phone: 09-16-2021 06:06-0400 Body temperature 98.6 [degF] [facility] Work Phone: [facility] Work Phone: 09-16-2021 06:06-0400 Body weight 199.58 kg [facility] Work Phone: [facility] Work Phone: 09-16-2021 06:06-0400 Diastolic blood pressure 80 mm[Hg] [facility] Work Phone: [facility] Work Phone: 09-16-2021 06:06-0400 Heart rate 74 /min [facility] Work Phone: [facility] Work Phone: 09-16-2021 06:06-0400 Respiratory rate 17 /min [facility] Work Phone: [facility] Work Phone: 09-16-2021 06:06-0400 SaO2% (BldA) [Mass fraction] 96 % [facility] Work Phone: [facility] Work Phone: 09-16-2021 06:06-0400 Systolic blood pressure 119 mm[Hg] [facility] Work Phone: [facility] Work Phone: 06-21-2021 08:54-0400 Body height 177.8 cm [facility] Work Phone: [facility] Work Phone: 06-21-2021 08:54-0400 Body mass index (BMI) [Ratio] 61 kg/m2 [facility] Work Phone: [facility] Work Phone: 06-21-2021 08:54-0400 Body temperature 98.6 [degF] [facility] Work Phone: [facility] Work Phone: 06-21-2021 08:54-0400 Body weight 192.77 kg [facility] Work Phone: [facility] Work Phone: 06-21-2021 08:54-0400 Diastolic blood pressure 75 mm[Hg] [facility] Work Phone: [facility] Work Phone: 06-21-2021 08:54-0400 Heart rate 75 /min [facility] Work Phone: [facility] Work Phone: 06-21-2021 08:54-0400 Respiratory rate 17 /min [facility] Work Phone: [facility] Work Phone: 06-21-2021 08:54-0400 SaO2% (BldA) [Mass fraction] 97 % [facility] Work Phone: [facility] Work Phone: 06-21-2021 08:54-0400 Systolic blood pressure 115 mm[Hg] [facility] Work Phone: [facility] Work Phone: 06-21-2021 08:54-0400 Body height 177.8 cm [facility] Work Phone: [facility] Work Phone: 06-21-2021 08:54-0400 Body mass index (BMI) [Ratio] 61 kg/m2 [facility] Work Phone: [facility] Work Phone: 06-21-2021 08:54-0400 Body temperature 98.6 [degF] [facility] Work Phone: [facility] Work Phone: 06-21-2021 08:54-0400 Body weight 192.77 kg [facility] Work Phone: [facility] Work Phone: 06-21-2021 08:54-0400 Diastolic blood pressure 75 mm[Hg] [facility] Work Phone: [facility] Work Phone: 06-21-2021 08:54-0400 Heart rate 75 /min [facility] Work Phone: [facility] Work Phone: 06-21-2021 08:54-0400 Respiratory rate 17 /min [facility] Work Phone: [facility] Work Phone: 06-21-2021 08:54-0400 SaO2% (BldA) [Mass fraction] 97 % [facility] Work Phone: [facility] Work Phone: 06-21-2021 08:54-0400 Systolic blood pressure 115 mm[Hg] [facility] Work Phone: [facility] Work Phone: 05-24-2021 11:35-0400 Body mass index (BMI) [Ratio] 61 kg/m2 [facility] Work Phone: [facility] Work Phone: 05-24-2021 11:35-0400 Body temperature 97.2 [degF] [facility] Work Phone: [facility] Work Phone: 05-24-2021 11:35-0400 Body weight 192.83 kg [facility] Work Phone: [facility] Work Phone: 05-24-2021 11:35-0400 Diastolic blood pressure 88 mm[Hg] [facility] Work Phone: [facility] Work Phone: 05-24-2021 11:35-0400 Heart rate 74 /min [facility] Work Phone: [facility] Work Phone: 05-24-2021 11:35-0400 Respiratory rate 18 /min [facility] Work Phone: [facility] Work Phone: 05-24-2021 11:35-0400 SaO2% (BldA) [Mass fraction] 97 % [facility] Work Phone: [facility] Work Phone: 05-24-2021 11:35-0400 Systolic blood pressure 134 mm[Hg] [facility] Work Phone: [facility] Work Phone: 05-24-2021 11:35-0400 Body height 177.8 cm [facility] Work Phone: [facility] Work Phone: 05-24-2021 11:35-0400 Body mass index (BMI) [Ratio] 61 kg/m2 [facility] Work Phone: [facility] Work Phone: 05-24-2021 11:35-0400 Body temperature 97.2 [degF] [facility] Work Phone: [facility] Work Phone: 05-24-2021 11:35-0400 Body weight 192.83 kg [facility] Work Phone: [facility] Work Phone: 05-24-2021 11:35-0400 Diastolic blood pressure 88 mm[Hg] [facility] Work Phone: [facility] Work Phone: 05-24-2021 11:35-0400 Heart rate 74 /min [facility] Work Phone: [facility] Work Phone: 05-24-2021 11:35-0400 Respiratory rate 18 /min [facility] Work Phone: [facility] Work Phone: 05-24-2021 11:35-0400 SaO2% (BldA) [Mass fraction] 97 % [facility] Work Phone: [facility] Work Phone: 05-24-2021 11:35-0400 Systolic blood pressure 134 mm[Hg] [facility] Work Phone: [facility] Work Phone: 02-10-2021 15:07-0500 Body temperature 97.8 [degF] [facility] Work Phone: [facility] Work Phone: 02-10-2021 15:07-0500 Diastolic blood pressure 82 mm[Hg] [facility] Work Phone: [facility] Work Phone: 02-10-2021 15:07-0500 Heart rate 76 /min [facility] Work Phone: [facility] Work Phone: 02-10-2021 15:07-0500 Respiratory rate 18 /min [facility] Work Phone: [facility] Work Phone: 02-10-2021 15:07-0500 SaO2% (BldA) [Mass fraction] 94 % [facility] Work Phone: [facility] Work Phone: 02-10-2021 15:07-0500 Systolic blood pressure 128 mm[Hg] [facility] Work Phone: [facility] Work Phone: 02-08-2021 12:42-0500 Body weight 190.3 kg [facility] Work Phone: [facility] Work Phone: 02-07-2021 20:07-0500 Body mass index (BMI) [Ratio] 60.2 kg/m2 [facility] Work Phone: [facility] Work Phone: Encounters Encounter Date Encounter Type Care Provider Facility Start: 11-08-2024 ambulatory Yvette James NP Facili ty:[facility] Start: 10-31-2024 End: 10-31-2024 ambulatory Jordana Baez [employer] Work Phone: -Laboratory Start: 10-31-2024 End: 10-31-[address] Madeleine Benoit MD -Laboratory Work Phone: Start: 10-31-2024 End: 10-31-2024 ambulatory Jordana Baez VSC Facility:[facility] Start: 10-15-2024 End: 10-15-2024 Patient encounter procedure MARILY Blakely -[facility] Work Phone: Start: 10-15-2024 End: 10-15-2024 ambulatory Jordana Baez [employer] Work Phone: -[facility] Start: 10-11-2024 End: 10-11-2024 Patient encounter procedure Yvette James [employer] -[facility] Work Phone: Start: 10-11-2024 End: 10-11-2024 ambulatory Jordana Baez [employer] Work Phone: -[facility] Start: 09-24-2024 ambulatory KIRSTIE ALISSA Facility:[facility] Start: 09-24-2024 End: 09-24-2024 Subsequent hospital visit by physician Mri [facility] (I-Stat/Lg Bore/1.5t) [facility] Comment on above: I42.9 R60.0 I25.10 I 10 R06.02 Start: 09-13-2024 End: 09-13-2024 Telephone encounter Katy Marsh RT(R) [facility] Start: 09-11-2024 End: 09-11-2024 Patient encounter procedure MARILY Blakely -[facility] Work Phone: Start: 09-11-2024 End: 09-11-2024 ambulatory Jordana Baez [employer] Work Phone: -[facility] Start: 08-22-2024 End: 08-22-2024 Patient encounter procedure Crystal Ruiz [employer] -[facility] Work Phone: Start: 08-22-2024 End: 08-22-2024 ambulatory Jordana Baez [employer] Work Phone: [facility] Work Phone: Start: 08-07-2024 End: 08-07-2024 Patient encounter procedure MARILY Blakely -[facility] Work Phone: Start: 08-07-2024 End: 08-07-2024 MARILY Blakely [facility] Work Phone: Start: 08-07-2024 End: 08-07-2024 ambulatory Jordana Nestor [employer] Work Phone: [facility] Work Phone: Start: 07-30-2024 ambulatory [facility] Fa cility:[facility] Start: 07-23-2024 End: 07-23-2024 Patient encounter procedure [employer] Swapna Blakely -[facility] Work Phone: Start: 07-23-2024 End: 07-23-2024 [employer] Swapna Blakely [facility] Work Phone: Start: 07-23-2024 End: 07-23-2024 ambulatory Jordana Nestor [employer] Work Phone: [facility] Work Phone: Start: 07-16-2024 End: 07-16-2024 ambulatory Jordana Nestor [employer] Work Phone: [facility] Work Phone: Start: 07-16-2024 End: 07-16-[address] Madeleine Benoit MD -Laboratory Work Phone: Start: 07-16-2024 End: 07-16-2024 Dr. Madeleine Benoit MD -Laboratory Work Phone: Start: 07-16-2024 End: 07-16-2024 ambulatory Jordana Baez [facility] Facility:[facility] Start: 07-11-2024 End: 07-11-2024 Patient encounter procedure Emy Lee [employer] -[facility] Work Phone: Start: 07-11-2024 End: 07-11-2024 Emy Lee [employer] -[facility] Work Phone: Start: 07-11-2024 End: 07-11-2024 ambulatory Emy Lee Facility:[facility] Start: 07-10-2024 End: 07-10-[address] Kirstie Maxwell MD -[facility] Work Phone: Start: 07-10-2024 End: 07-10-2024 Dr. Kirstie Maxwell MD -[facility] Work Phone: Start: 07-10-2024 End: 07-10-2024 ambulatory [facility] Facility:[facility] Start: 07-08-2024 End: 07-08-2024 Patient encounter procedure [employer] Swapna Reddy -Cat Scan [facility] Work Phone: Start: 07-08-2024 End: 07-08-2024 [employer] Swapna Reddy -Cat Scan, [facility] Work Phone: Start: 07-08-2024 End: 07-08-2024 ambulatory Swapna Blakely Facility:[facility] Start: 06-24-2024 End: 06-24-2024 ambulatory [facility] [employer] Work Phone: [facility] Work Phone: Start: 06-24-2024 End: 06-24-2024 Patient encounter procedure Marce Donahue [employer] -Laboratory, [facility] Start: 06-24-2024 End: 06-24-2024 Marce Donahue [employer] -Laboratory, [facility] Start: 06-24-2024 End: 06-24-2024 ambulatory [facility] Facility:[facility] Start: 06-18-2024 Non-patient / Non-visit Dr. Pastora Terry MD -[facility] Work Phone: Start: 06-18-2024 Dr. Pastora Terry MD -[facility] Work Phone: Start: 06-17-2024 Non-patient / Non-visit Dr. Lake Strauss DO -[facility] Start: 06-17-2024 Dr. Lake Strauss DO [facility] Start: 06-17-2024 Non-patient / Non-visit Dr. Pastora Terry MD -[facility] Work Phone: Start: 06-17-2024 Dr. Pastora Terry MD -[facility] Work Phone: Start: 06-16-2024 Non-patient / Non-visit Dr. Hipolito Jackson MD -[facility] Work Phone: Start: 06-16-2024 Dr. Hipolito Jackson MD -[facility] Work Phone: Start: 06-15-2024 Non-patient / Non-visit Dr. Hipolito Jackson MD -[facility] Work Phone: Start: 06-15-2024 Dr. Hipolito Jackson MD -[facility] Work Phone: Start: 06-14-2024 ambulatory Grecia Sophia Jo-Ann Facility :[facility] Start: 06-14-2024 End: 06-18-2024 Evaluation and management of inpatient Dr. Grecia Marroquin MD -[facility] Work Phone: Start: 06-14-2024 End: 06-18-2024 Dr. Pastora Terry MD -[facility] Work Phone: Start: 06-13-2024 End: 06-13-[address] Kirstie Maxwell MD -Laboratory Work Phone: Start: 06-13-2024 End: 06-13-2024 Dr. Kirstie Maxwell MD -Laboratory Work Phone: Start: 06-13-2024 End: 06-13-2024 ambulatory [facility] [employer] Work Phone: [facility] Work Phone: Start: 06-13-2024 End: 06-13-2024 ambulatory [facility] Facility:[facility] Start: 05-07-2024 End: 05-07-[address] Kirstie Maxwell MD -[facility] Work Phone: Start: 05-07-2024 End: 05-07-2024 Dr. Kirstie Maxwell MD -[facility] Work Phone: Start: 05-07-2024 End: 05-07-2024 ambulatory Swapnavinod Simpsonpatrick Facility:[facility] Start: 04-30-2024 End: 04-30-2024 Patient encounter procedure [employer] Swapna Blakely -[facility] Work Phone: Start: 04-30-2024 End: 04-30-2024 MARILY Blakely -[facility] Work Phone: Start: 04-30-2024 End: 04-30-2024 ambulatory Swapna Blakely Facility:[facility] Start: 04-24-2024 End: 04-24-2024 Patient encounter procedure Emy Lee NP-C -[facility] Work Phone: Start: 04-24-2024 End: 04-24-2024 Emy Lee NP-C -[facility] Work Phone: Start: 04-24-2024 End: 04-24-2024 ambulatory [facility] Facility:[facility] Start: 04-23-2024 End: 04-23-2024 Patient encounter procedure Missy Guzman DO -[facility] Work Phone: Start: 04-23-2024 End: 04-23-2024 Missy Guzman DO [facility] Work Phone: Start: 04-23-2024 End: 04-23-2024 ambulatory [facility] Facility:[facility] Start: 04-23-2024 End: 04-23-2024 ambulatory [facility] Facility:[facility] Start: 04-02-2024 End: 04-02-2024 Patient encounter procedure Emy Lee NP-C -Laboratory Work Phone: Start: 04-02-2024 End: 04-02-2024 Emy Lee NP-C -Laboratory Work Phone: Start: 04-02-2024 End: 04-02-2024 ambulatory [facility] Facility:[facility] Start: 03-28-2024 ambulatory [facility] Fa cility:[facility] Start: 03-28-2024 Non-patient / Non-visit Dr. Kirstie Maxwell MD [facility] Start: 03-28-2024 End: 03-28-2024 Patient encounter procedure MARILY Blakely -Cardiovascular Services Work Phone: Start: 03-28-2024 End: 03-28-2024 Dr. Kirstie Maxwell MD -[facility] Start: 03-28-2024 End: 03-28-2024 ambulatory Swapna Blakely Facility:[facility] Start: 03-19-2024 End: 03-19-2024 Patient encounter procedure MARILY Blakely -[facility] Work Phone: Start: 03-19-2024 End: 03-19-2024 ambulatory Swapna Blakely Facility:[facility] Start: 02-26-2024 ambulatory Swapna Blakely Facili ty:[facility] Start: 02-26-2024 Non-patient / Non-visit Dr. Lake Strauss DO -[facility] Start: 02-20-2024 ambulatory Swapna Floresi ty:[facility] Start: 02-20-2024 End: 02-20-2024 Patient encounter procedure MARILY Blakely -Sleep Lab Work Phone: Start: 02-20-2024 End: 02-20-2024 ambulatory Swapna Blakely Facility:[facility] Start: 02-13-2024 End: 02-13-2024 ambulatory Swapna Blakely Facility:[facility] Start: 02-05-2024 End: 02-05-2024 ambulatory Swapna Blakely Facility:[facility] Start: 01-23-2024 End: 01-23-2024 ambulatory [facility] Facility:[facility] Start: 01-23-2024 End: 01-23-2024 ambulatory [facility] Facility:[facility] Start: 01-15-2024 End: 01-15-2024 ambulatory [facility] Facility:[facility] Start: 12-28-2023 End: 12-28-2023 ambulatory Jordana Baez [facility] Facility:[facility] Start: 07-10-2023 End: 07-10-2023 Emergency department patient visit [facility] Work Phone: [facility]-Emergency Department Work Phone: Start: 05-23-2023 End: 05-23-2023 ambulatory [facility] Work Phone: [facility] Work Phone: Start: 05-23-2023 End: 05-23-2023 Patient encounter procedure [facility] Work Phone: [facility] Work Phone: Start: 05-15-2023 End: 05-15-2023 ambulatory [facility] Work Phone: [facility] Work Phone: Start: 05-15-2023 End: 05-15-2023 Patient encounter procedure [facility] Work Phone: [facility] Endocrinology Work Phone: Start: 04-10-2023 End: 04-10-2023 Patient encounter procedure [facility] Work Phone: [facility]-Laboratory Work Phone: Start: 04-10-2023 End: 04-10-2023 Patient encounter procedure [facility] Work Phone: [facility] Gastroenterology Work Phone: Start: 04-03-2023 End: 04-03-2023 ambulatory [facility] Work Phone: [facility] Work Phone: Start: 04-03-2023 End: 04-03-2023 Patient encounter procedure [facility] Work Phone: [facility]-Laboratory Work Phone: Start: 01-26-2023 End: 01-26-2023 Patient encounter procedure [facility] Work Phone: [facility] Endocrinology Work Phone: Start: 12-12-2022 End: 12-12-2022 Patient encounter procedure [facility] Work Phone: [facility] Gastroenterology Work Phone: Start: 11-27-2022 End: 11-27-2022 Emergency department patient visit [facility] Work Phone: [facility]-Emergency Department Work Phone: Start: 11-21-2022 Non-patient / Non-visit [facility] Work Phone: [facility] Start: 11-21-2022 End: 11-21-2022 Admission to same day surgery center [facility] Work Phone: [facility]-Endoscopy Work Phone: Start: 11-21-2022 End: 11-21-2022 ambulatory [facility] Work Phone: [facility] Work Phone: Start: 11-03-2022 ambulatory MAURISIO Flores ity:[facility] Start: 11-03-2022 ambulatory MISSY FRIEND Facility :[facility] Start: 11-03-2022 End: 11-03-2022 Subsequent hospital visit by physician Maurisio King MD Work Phone: [facility] Comment on above: Arrived Start: 10-12-2022 ambulatory MISSY FRIEND Facility :[facility] Start: 09-29-2022 End: 09-29-2022 Patient encounter procedure [facility] Work Phone: [facility]-Laboratory Work Phone: Start: 09-22-2022 End: 09-22-2022 Patient encounter procedure [facility] Work Phone: [facility] Endocrinology Work Phone: Start: 09-19-2022 End: 09-19-2022 ambulatory [facility] Work Phone: [facility] Work Phone: Start: 09-19-2022 End: 09-19-2022 Patient encounter procedure [facility] Work Phone: [facility]-Pulmonary Medicine [facility] Work Phone: Start: 09-02-2022 End: 09-02-2022 Emergency department patient visit [facility] [facility] Work [facility] Department Start: 08-29-2022 End: 08-29-2022 Patient encounter procedure [facility] Work Phone: [facility] Start: 08-16-2022 End: 08-16-2022 Patient encounter procedure [facility] Work Phone: [facility]-Nuclear Medicine, [facility] Start: 07-19-2022 Non-patient / Non-visit [facility] Work Phone: [facility]-BGI Start: 07-19-2022 End: 07-19-2022 Admission to same day surgery center [facility] Work Phone: [facility]-Endoscopy Start: 07-19-2022 End: 07-19-2022 ambulatory [facility] Work Phone: [facility] Work Phone: Start: 05-12-2022 End: 05-12-2022 Patient encounter procedure [facility] Work Phone: [facility] Start: 04-06-2022 ambulatory MISSY FRIEND Facility :[facility] Start: 03-31-2022 End: 03-31-2022 ambulatory [facility] Work Phone: [facility] Work Phone: Start: 03-31-2022 End: 03-31-2022 Patient encounter procedure [facility] Work Phone: [facility]-Laboratory Start: 03-26-2022 End: 03-26-[address] [facility] Work Phone: [facility] Work Phone: Start: 03-26-2022 End: 03-26-2022 Patient encounter [facility] Start: 03-24-2022 End: 03-24-2022 Patient encounter procedure [facility] Work Phone: [facility] Start: 03-24-2022 Non-patient / Non-visit [facility] Work Phone: [facility] Start: 03-16-2022 End: 03-16-[address] [facility] Work Phone: [facility] Work Phone: Start: 03-16-2022 End: 03-16-2022 Patient encounter procedure [facility] Work Phone: [facility] Start: 02-28-2022 End: 02-28-[address] [facility] Work Phone: [facility] Work Phone: Start: 02-28-2022 End: 02-28-2022 Patient encounter procedure [facility] Work Phone: [facility]Labor[facility] Start: 02-23-2022 End: 02-23-2022 ambulatory [facility] Work Phone: [facility] Work Phone: Start: 02-23-2022 End: 02-23-2022 Patient encounter procedure [facility] Start: 02-17-2022 End: 02-17-2022 Patient encounter procedure [facility] Work Phone: [facility] Start: 12-20-2021 End: 12-20-[address] [facility] Work Phone: [facility] Work Phone: Start: 12-20-2021 End: 12-20-2021 Patient encounter procedure [facility] Work Phone: [facility] Start: 12-20-2021 End: 12-20-2021 Patient encounter procedure [facility] Work Phone: [facility] Start: 10-05-2021 End: 10-05-2021 Patient encounter procedure [facility] Work Phone: [facility]Ultrasound, [facility] Start: 09-23-2021 End: 09-23-2021 Patient encounter procedure [facility] Work Phone: [facility] Start: 09-20-2021 End: 09-20-2021 Patient encounter procedure [facility] Work Phone: [facility]-Cat Scan, [facility] Start: 09-16-2021 End: 09-16-2021 Patient encounter procedure [facility] Work Phone: [facility]-Pulmonary Medicine [facility] Start: 09-09-2021 End: 09-09-2021 Patient encounter procedure [facility] Work Phone: [facility]Laboratory Start: 09-09-2021 End: 09-09-2021 Patient encounter procedure [facility] Work Phone: [facility] Start: 08-18-2021 Telephone encounter Elicia Zuniga MD Work Phone: Hematology/Oncology Comment on above: Results Patient Question Start: 07-29-2021 End: 07-29-2021 Patient encounter procedure [facility] Work Phone: [facility]-Sleep Lab Start: 07-05-2021 End: 07-05-2021 Patient encounter procedure [facility] Work Phone: [facility]Laboratory Start: 06-21-2021 End: 06-21-2021 Patient encounter procedure [facility] Work Phone: [facility] [place] Start: 06-07-2021 Non-patient / Non-visit [facility] Work Phone: [facility] Start: 06-07-2021 End: 06-07-2021 Patient encounter procedure [facility] Work Phone: [facility]-Pulmonary Services/Neurology Start: 05-24-2021 End: 05-24-2021 Patient encounter procedure [facility] Work Phone: [facility] Start: 03-08-2021 Patient encounter procedure [facility] Work Phone: [facility]-Radiology, [facility] Start: 02-10-2021 Non-patient / Non-visit [facility] Work Phone: [facility]patient Physicians Start: 02-09-2021 Non-patient / Non-visit [facility] Work Phone: [facility] Start: 02-08-2021 Non-patient / Non-visit [facility] Work Phone: [facility] Start: 02-07-2021 Non-patient / Non-visit [facility] Work Phone: [facility] Start: 02-07-2021 End: 02-10-2021 Evaluation and management of inpatient [facility] Work Phone: [facility]-Medical Surgical 3 Start: 03-15-2018 Patient encounter procedure KYACezar Sujatha GILL Facility:A Start: 03-15-2018 Patient encounter procedure VERONA SANDHU Facility:[id number] Start: 02-20-2018 Patient encounter procedure LYUBOV TENZINMEJIA Facility:[id number] Start: 02-06-2018 Patient encounter procedure LYUBOV TENZINMEJIA Facility:[id number] Start: 01-25-2018 Patient encounter procedure RUSTY THAKKAR Facility:[id number] Start: 01-10-2018 End: 01-13-2018 Evaluation and management of inpatient RUSTY THAKKAR Facility:[facility] Start: 07-10-2017 End: 07-14-2017 Evaluation and management of inpatient ALANA ALEX Facility:A Procedures Date Procedure Procedure Detail Performing Clinician Start: 09-24-2024 Gadobutrol injection [facility] Provider Start: 07-08-2024 CT of chest without contrast Jordana Jairo chu [employer] Work Phone: Start: 06-18-2024 Blood count smear mcrscp w/mnl difrntl wbc count Jordana Baez [employer] Work Phone: Start: 06-18-2024 Estimated creatinine clearance Jordana Senthil dickerson [employer] Work Phone: Start: 06-18-2024 Mean corpuscular hemoglobin concentration determination Jordana Baez [employer] Work Phone: Start: 06-18-2024 Nucleated red blood cell count procedure Jordana Baez [employer] Work Phone: Start: 06-18-2024 Platelet mean volume determination Letty schwartz Nestor [employer] Work Phone: Start: 06-16-2024 Serum inorganic phosphate measurement Jordana Baez [employer] Work Phone: Start: 06-15-2024 Vitamin D, 25-hydroxy measurement Raghu Baez [employer] Work Phone: Comment on above: Vitamin D StatusDeficiency: <20 ng/mL (5 0nmol/L)Insufficiency: 20-30 ng/mL (50-75 nmol/L)Sufficiency: 30-100 ng/mL (75-250 nmol/L)Toxicity: >100 ng/mL (>250 nmol/L) Start: 06-15-2024 Urine immunofixation Jordana Baez [employer] Work Phone: Comment on above: No monoclonality detected. Start: 06-14-2024 Calcium measurement Jordana Baez [employer] Work Phone: Start: 06-14-2024 Urine microscopy: red cells Jordana Catracho dupont [employer] Work Phone: Start: 06-14-2024 Urnls dip stick/tablet reagent auto microscopy Jordana Baez [employer] Work Phone: Start: 06-14-2024 CT of abdomen and pelvis without contrast Jordana Baez [employer] Work Phone: Start: 05-07-2024 Evaluation of diagnostic study results Jordana Baez [employer] Work Phone: Start: 04-23-2024 Albumin/Globulin ratio Jordana Baez [employer] Work Phone: Start: 04-23-2024 Anion gap measurement Jordana Baez [employer] Work Phone: Start: 04-23-2024 Blood count smear mcrscp w/mnl difrntl wbc count Jordana Baez [employer] Work Phone: Start: 04-23-2024 BUN/Creatinine ratio Jordana Baez [employer] Work Phone: Start: 04-23-2024 Calculation of international normalized ratio Jordana Baez [employer] Work Phone: Start: 04-23-2024 Immunoglobulin M measurement Jordana chu [employer] Work Phone: Start: 04-23-2024 Mean corpuscular hemoglobin concentration determination Jordana Baez [employer] Work Phone: Start: 04-23-2024 Measurement of renal function Jordana hairston [employer] Work Phone: Start: 04-23-2024 Nucleated red blood cell count procedure Jordana Baez [employer] Work Phone: Start: 04-23-2024 Platelet mean volume determination Letty Baez [employer] Work Phone: Start: 04-02-2024 Assay of triglycerides Jordana Baez [employer] Work Phone: Start: 04-02-2024 T4 free measurement Jordana Baez [employer] Work Phone: Start: 04-02-2024 Vitamin D, 25-hydroxy measurement Raghu Baez [employer] Work Phone: Start: 07-10-2023 Plain chest X-ray [facility] Work Phone: Start: 05-23-2023 CT of abdomen with contrast [facility] Work Phone: Start: 11-21-2022 Esophagogastroduodenoscopy [facility] Work Phone: Start: 11-03-2022 Radiologic exam chest 2 views Maurisio King MD Work Phone: Start: 09-19-2022 Investigation of transfusion reaction [facility] Work Phone: Start: 09-19-2022 Respiratory microbial culture [facility] Work Phone: Start: 09-02-2022 Plain chest X-ray [facility] Work Phone: Start: 08-16-2022 Radionuclide gastric emptying study [facility] Work Phone: Start: 07-19-2022 Esophagogastroduodenoscopy [facility] Work Phone: Start: 03-16-2022 Ultrasonic guidance procedure [facility] Work Phone: Start: 10-05-2021 Ultrasound elastography [facility] Work Phone: Start: 10-05-2021 Ultrasonography of abdomen [facility] Work Phone: Start: 09-20-2021 Computed tomography of abdomen and pelvis with contrast [facility] Work Phone: Start: 07-05-2021 Radiologic examination of knee [facility] Work Phone: Start: 05-24-2021 Plain chest X-ray [facility] Work Phone: Start: 03-08-2021 Plain chest X-ray [facility] Work Phone: Start: 02-07-2021 CT angiography of chest with contrast [facility] Work Phone: Start: 02-07-2021 Plain chest X-ray [facility] Work Phone: Start: 02-07-2021 Influenza Types A,B Direct FA (GLENN) [facility] Work Phone: Start: 01-11-2018 Inspection of Gallbladder, Percutaneous Endoscopic Approach RUSTY ARIANE Start: 01-11-2018 Resection of Gallbladder, Open Approach RUSTY THAKKAR Start: 01-10-2018 Antibody screen RUSTY THAKKAR Comment on above: Performed By: #### T+S [id number] [place] [address] H/O: surgery History of lung biopsy Jordana Baez [employer] Work Phone: Plan of Treatment Date Care Activity Detail Author Start: 02-04-2029 Tetanus vaccination TETANUS [facility] Start: 02-04-2029 Urine microalbumin profile DTaP,Tdap,Td Vaccine (2 - Td or Tdap) [facility] Start: 12-17-2024 ambulatory Facility:[facility] Start: 12-17-2024 Measurement of respiratory function [facility] Start: 11-14-2024 Measurement of respiratory function [facility] Start: 11-11-2024 Influenza vaccination Influenza Vacc ine (#1) [facility] Start: 10-14-2024 Measurement of respiratory function [facility] Start: 09-24-2024 End: 09-24-2024 Patient encounter procedure 09/24/2024 7:00 AM EDT Appointment [facility] [address] [place] [address] AUTHORIZED in scanned docs [facility] Comment on above: AUTHORIZED in scanne d docs Start: 06-18-2024 Patient discharge [facility] Start: 06-16-2024 [facility] Start: 06-16-2024 [facility] Start: 06-16-2024 Consultation [facility] Start: 06-15-2024 [facility] Start: 06-15-2024 Urine protein electrophoresis [facility] Start: 06-14-2024 Following clinical pathway protocol [facility] Start: 06-14-2024 Assessment of risk o f venous thromboembolism [facility] Start: 06-14-2024 Care regimes management [facility] Start: 06-14-2024 Inhalation therapy procedure [facility] Start: 06-14-2024 Insertion of cathete r into peripheral vein [facility] Start: 06-14-2024 Notification of physician [facility] Start: 06-14-2024 Providing care accor ding to standard [facility] Start: 06-14-2024 Provision of activit y privileges [facility] Start: 06-14-2024 Referral to snuff container inspector [facility] Start: 06-14-2024 Referral to occupati onal therapist [facility] Start: 06-14-2024 Referral to service [facility] Start: 06-14-2024 End: 06-14-2024 [facility] Start: 06-14-2024 CT Abdomen and Pelvi s WO contrast [facility] Start: 06-14-2024 CT of abdomen and pe lvis without contrast Abdomen/Pelvis without Cont [facility] Start: 06-14-[address] [facility] Start: 06-14-2024 Admission procedure [facility] Start: 06-14-2024 Hospital admission, emergency, from emergency room, medical nature [facility] Start: 06-13-2024 Collection venous bl ood venipuncture [facility] Start: 06-13-2024 Comprehensive metabo lic panel [facility] Start: 2024 Shingrix Vaccine (1 of 2) Hunt grix Vaccine (1 of 2) [facility] Start: 03-28-2024 Echo tthrc r-t 2d w/wom-mode compl spec&colr d [facility] Start: 03-19-2024 Patient referral [facility] Work Phone: Start: 11-12-2023 Covid-19 Vaccine ( season) Covid-19 Vaccine ( season) [facility] Start: 11-04-2023 Complete blood count Hemoglobin/Christian tocrit [facility] Start: 11-04-2023 Creatinine measurement Serum Creatin ine [facility] Start: 11-04-2023 Thyroid stimulating hormone measurement [facility] Start: 07-10-2023 [facility] Start: 11-21-2022 Egd transoral biopsy single/multiple EGD BIOPSY SINGLE/MULTIPLE [facility] Start: 11-21-2022 Patient discharge [facility] Start: 11-11-2022 Influenza vaccination INFLUENZA VACC INE (#1) [facility] Start: 10-09-2022 DIABETES SCREEN DIABETES SCREEN [facility] Start: 08-17-2022 Complete blood count Hemoglobin/Christian tocrit [facility] Start: 07-19-2022 Egd transoral biopsy single/multiple EGD BIOPSY SINGLE/MULTIPLE [facility] Start: 07-19-2022 Patient discharge [facility] Start: 03-16-2022 Biopsy liver needle percutaneous NEEDLE BIOPSY OF LIVER [facility] Start: 03-16-2022 Catheterization of vein [facility] Start: 03-16-2022 Oxygen therapy [facility] Start: 03-16-2022 Patient discharge [facility] Start: 03-16-2022 Vital signs measurements [facility] Start: 10-23-2021 COVID-19 VACCINE (3 - Booster for Pfizer series) COVID-19 VACCINE (3 - Booster for Pfizer series) [facility] Start: 09-09-2021 Acute hepatitis 2000 panel - Serum [facility] Work Phone: Start: 09-09-2021 Lusll-5-hxrkvbberea. tumor marker [Units/volume] in Serum or Plasma [facility] Work Phone: Start: 09-09-2021 Angiotensin converti ng enzyme [Enzymatic activity/volume] in Serum or Plasma [facility] Work Phone: Start: 09-09-2021 Ceruloplasmin [Mass/volume] in Serum or Plasma [facility] Work Phone: Start: 09-09-2021 Copper [Moles/volume ] in Serum or Plasma [facility] Work Phone: Start: 09-09-2021 Haptoglobin [Mass/vo lume] in Serum or Plasma [facility] Work Phone: Start: 09-09-2021 Mitochondria Ab [Presence] in Serum [facility] Work Phone: Start: 09-09-2021 Smooth muscle Ab [Presence] in Serum [facility] Work Phone: Start: 09-09-2021 [facility] Work Phone: Start: 07-18-2021 COVID-19 VACCINE (3 - Pfizer series) COVID-19 VACCINE (3 - Pfizer series) [facility] Start: 06-07-2021 Polysom 6/>yrs sleep w/cpap 4/> addl ana cristina attnd POLYSOM 6/>YRS CPAP 4/> PARM [facility] Work Phone: Start: 10-09-2020 Creatinine measurement Serum Creatin ine [facility] Start: 10-09-2020 SERUM CREATININE SERUM CREATININE Cl [facility] Start: 06-13-2019 COLOGUARD (FIT-DNA) COLOGUARD (FIT-D NA) [facility] Start: 06-13-2019 Colonoscopy COLONOSCOPY [facility] Start: 06-13-2019 COLORECTAL CANCER SCREENING COLORECTAL CANCER SCREENING [facility] Start: 06-13-[address] COLONOGRAPHY [facility] Start: 06-13-2019 FECAL OCCULT BLOOD FECAL OCCULT BLOO D [facility] Start: 06-13-2019 Screening for malign ant neoplasm of colon [facility] Start: 06-13-2019 SIGMOIDOSCOPY SIGMOIDOSCOPY [facility] Start: 07-11-2018 Hemoglobin A1c measurement HbA1C [facility] Start: 2014 Lipid panel LIPID SCREENING [facility] Start: 2009 LIPID SCREEN LIPID SCREEN [facility] Start: 1993 Pneumococcal Vaccine : 50+ (1 of 2 - PCV) Pneumococcal Vaccine: 50+ (1 of 2 - PCV) [facility] Start: 1993 Urine microalbumin profile DTAP,TDAP,TD (1 - Tdap) [facility] Start: 1992 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 ANNUAL PCP TEAM CHRONIC DISEASE VISIT [facility] Start: 1992 Anxiety Screening Anxiety Screening [facility] Start: 1992 Depression Screening Depression Scre ening [facility] Start: 1992 Hepatitis B surface antibody level LDL Cholesterol [facility] Start: 1989 HIV screening HIV SCREENING DISCUSSION [facility] Start: 1986 Adult depression screening assessment DEPRESSION SCREENING [facility] Start: 1984 Diabetic foot examination Diabetic F oot Exam [facility] Start: 1984 Glaucoma screening Dilated Retinal E xam [facility] Start: 1984 Hepatitis B screening Urine Albumin:Creatinine Ratio [facility] Start: 06-13-1979 Hemoglobin A1c measurement HbA1C [facility] [address] [facility] Albumin [Mass/volume ] in Serum or Plasma [facility] Albumin [Mass/volume ] in Urine [facility] Jggec-6-zyvfzkpxzby. tumor marker [Units/volume] in Serum or Plasma [facility] Work Phone: Angiotensin converti ng enzyme [Enzymatic activity/volume] in Serum or Plasma [facility] Work Phone: Antibody to lupus La protein measurement [facility] Work Phone: Antibody to SS-A measurement [facility] Work Phone: Bilirubin measuremen t, urine [facility] Blood ammonia measurement [facility] C reactive protein [Mass/volume] in Serum or Plasma [facility] CBC W Auto Different ial panel - Blood [facility] Centromere protein B Ab [Units/volume] in Serum [facility] Work Phone: Ceruloplasmin [Mass/volume] in Serum or Plasma [facility] Work Phone: Chromatin Ab [Units/volume] in Serum or Plasma [facility] Work Phone: Copper [Moles/volume ] in Serum or Plasma [facility] Work Phone: CT Abdomen and Pelvi s WO and W contrast IV [facility] Work Phone: CT Chest WO contrast [facility] DNA double strand Ab [Units/volume] in Serum [facility] Work Phone: Electrophoresis: beta-globulin [facility] Electrophoresis: tommy ma globulin [facility] Erythrocyte sediment ation rate [facility] Fluid sample globuli n level [facility] Haptoglobin [Mass/vo lume] in Serum or Plasma [facility] Work Phone: Hemoglobin [Presence ] in Urine [facility] Hepatitis A virus Ig M Ab [Presence] in Serum [facility] Work Phone: Hepatitis B core ant ibody measurement, IgM type [facility] Work Phone: Hepatitis B surface antigen measurement [facility] Work Phone: Hepatitis C antibody measurement [facility] Work Phone: Gabi-1 extractable nuc lear Ab [Units/volume] in Serum [facility] Work Phone: Lactate dehydrogenas e measurement [facility] Lipid 1996 panel - S steven or Plasma [facility] Measurement of keton es in urine using dipstick [facility] Measurement of respiratory function [facility] Microscopic urinalysis [facility] Mitochondria Ab [Presence] in Serum [facility] Work Phone: Neutrophil cytoplasm ic Ab.classic [Units/volume] in Serum [facility] Work Phone: NM Heart Views W str ess and W radionuclide IV [facility] P-ANCA measurement [facility] Work Phone: Patient Education [facility] Work Phone: Patient referral [facility] Work Phone: pH of Urine [facility] Procedure [facility] Protein [Mass/volume ] in Urine [facility] Protein measurement, urine, quantitative 24 hour [facility] Prothrombin time [facility] SCL-[id number] extractable nuclear Ab [Units/volume] in Serum by Immunoassay [facility] Work Phone: Brewer extractable nu clear Ab [Presence] in Serum [facility] Work Phone: Smooth muscle Ab [Presence] in Serum [facility] Work Phone: Specific gravity of Urine [facility] Ultrasound elastography [facility] Work Phone: Urine blood test [facility] Urine dipstick for glucose [facility] Urine dipstick for leukocyte esterase [facility] Urine dipstick for nitrite [facility] Urine dipstick for protein [facility] Urine examination [facility] Urine microscopy: epithelial cells [facility] Urine Microscopy: wh ite cells [facility] Urobilinogen [Presen ce] in Urine [facility] US Abdomen limited [facility] Work Phone: Vitamin D, 25-hydrox y measurement [facility] Immunizations Immunization Date Immunization Notes Care Provider Fa cility 02-05-2024 influenza, injectabl e, madin merle canine kidney, preservative free Jordana Baez [employer] Work Phone: [facility] 02-05-2024 Influenza, injectabl e, Madin Merle Canine Kidney, preservative free, quadrivalent Jordana Baez [employer] Work Phone: [facility] 02-05-2024 influenza virus vaccine, unspecified formulation Mri Bore/1.5t) [facility] 05-23-2021 Covid (Pfizer) Jordana colin [employer] Work Phone: [facility] 05-02-2021 Covid (Pfizer) Jordana colin [employer] Work Phone: [facility] 02-10-2021 influenza, injectabl e, quadrivalent, preservative free [facility] Work Phone: [facility] 02-10-2021 influenza, seasonal, injectable [facility] Work Phone: [facility] 02-10-2021 influenza virus vaccine, unspecified formulation Maurisio King MD Work Phone: [facility] 10-07-2019 hepatitis A and hepatitis B vaccine Jordana Baez [employer] Work Phone: [facility] 03-11-2019 hepatitis A and hepatitis B vaccine Jordana Baez [employer] Work Phone: [facility] 02-04-2019 hepatitis A and hepatitis B vaccine Jordana Baez [employer] Work Phone: [facility] 02-04-2019 tetanus toxoid, redu vazquez diphtheria toxoid, and acellular pertussis vaccine, adsorbed Jordana Baez [employer] Work Phone: [facility] 01-04-2018 Influenza virus vaccine Viol [facility] Work Phone: [facility] Payers Date Payer Category Payer Self-pay [id number] 2022 Medicaid [employer] [id number] 2021 Unknown [employer] [facility] [id number] 2021-Present [address] [place] [id number] 2015 Medicaid [employer] [id number] 2015-Present [phone] [address] [place] [id number] Medicaid [id number]. [id number] 2015 Unknown [id number] 2015 Unknown [id number] 1974 Unknown [id number] 2.16.840.1.897945.3.579.2.356 1974 Unknown [id number] 2.16.840.1.578707.3.579.2.356 1974 Unknown [id number] 2.16.840.1.774273.3.579.2.356 1974 Unknown [id number] 2.16840.1.467489.3.579.2.356 1974 Unknown [id number] 2.16840.1.139346.3.579.2.356 1974 Unknown [id number] 2.840.1.906532.3.579.2.627 1974 Unknown [id number] 2.840.1.009014.3.579.2.627 1974 Unknown [id number] 2.840.1.490473.3.579.2.594 1974 Unknown [id number] 2.840.1.444929.3.579.2.594 1974 Unknown [id number] 2.840.1.744688.3.579.2.594 1974 Unknown [id number] 2.840.1.035212.3.579.2.594 1974 Unknown [id number] 2.840.1.401359.3.579.2.594 Unknown [id number] 2.840.1.109749.3.579.2.462 Unknown [id number] 2.840.1.186523.3.579.2.462 Unknown [id number] 2.840.1.090925.3.579.2.462 Unknown [id number] 2.840.1.140121.3.579.2.462 Unknown [id number] 2.16840.1.372458.3.579.2.462 Unknown [id number] 2.16840.1.503910.3.579.2.462 Unknown [id number] 2.840.1.899271.3.579.2.462 Unknown [id number] 2.840.1.165242.3.579.2.462 Unknown [id number] 2.16.840.1.719506.3.579.2.462 Unknown [id number] 2.16.840.1.506221.3.579.2.462 Unknown [id number] 2.16.840.1.347199.3.579.2.462 Unknown [id number] 2.16.840.1.669656.3.579.2.462 Unknown [id number] 2.16.840.1.348703.3.579.2.462 Unknown [id number] 2.16.840.1.927972.3.579.2.462 Unknown [id number] 2.16.840.1.037928.3.579.2.462 Unknown [id number] 2.16.840.1.964848.3.579.2.462 Unknown [id number] 2.16.840.1.051803.3.579.2.462 Unknown [id number] 2.16.840.1.946935.3.579.2.462 Unknown [id number] 2.16.840.1.074937.3.579.2.462 Unknown [id number] 2.16.840.1.245489.3.579.2.462 Unknown [id number] 2.16.840.1.124232.3.579.2.462 Unknown [id number] 2.16.840.1.445402.3.579.2.462 Unknown [id number] 2.16.840.1.230657.3.579.2.462 Unknown [id number] 2.16.840.1.065053.3.579.2.462 Unknown [id number] 2.16.840.1.893169.3.579.2.462 Unknown [id number] 2.16.840.1.519647.3.579.2.462 Unknown [id number] 2.16.840.1.357233.3.579.2.462 Unknown [id number] 2.16.840.1.607831.3.579.2.462 Unknown [id number] 2.16.840.1.173726.3.579.2.462 Unknown [id number] 2.16.840.1.573577.3.579.2.462 Unknown [id number] 2.16.840.1.142748.3.579.2.462 Unknown [id number] 2.16.840.1.749545.3.579.2.462 Unknown [id number] 2.16.840.1.938060.3.579.2.462 Unknown [id number] 2.16.840.1.706451.3.579.2.462 Unknown [id number] 2.16.840.1.658446.3.579.2.462 Unknown [id number] 2.16.840.1.430480.3.579.2.462 Unknown [id number] 2.16.840.1.838406.3.579.2.462 Unknown [id number] 2.16.840.1.372064.3.579.2.462 Unknown [id number] 2.16840.1.037836.3.579.2.462 Unknown [id number] 2.16.840.1.506879.3.579.2.462 Unknown [id number] 2.16840.1.011671.3.579.2.462 Unknown [id number] 2.16840.1.751973.3.579.2.462 Unknown [id number] 2.16840.1.788760.3.579.2.462 Social History Date Type Detail Facility Start: 05-24-2021 End: 07-10-2023 Tobacco smoking status NMIS Unknown if ever smoked [facility] Work Phone: Start: 04-17-2018 None [facility] Start: 12-18-2018 With Family [facility] Start: 11-06-2018 Cigarettes;Cigars [facility] Start: 1975 Sex Assigned At Male [facility] Start: 1975 Sex Assigned At Not on file [facility] Start: 08-07-2021 End: 08-17-2021 Exposure to SARS-CoV-2 (event) Not sure [facility] Work Phone: Start: 11-03-2022 End: 08-22-2024 Tobacco smoking status NHIS Ex-smoker [facility] History of tobacco use Current smoker [facility] History of tobacco use Cigarette Smoker [facility] Start: 03-25-2022 End: 11-03-2022 Cigarettes smoked current (pack per day) - Reported 0.5 [facility] Start: 11-03-2022 Tobacco use and exposure Smokeless tobacco non-user [facility] Start: 11-03-2022 Alcohol intake Ex-drinker (finding) [facility] Start: 03-25-2022 End: 11-03-2022 Tobacco use panel [facility] Start: 06-14-2024 End: 06-27-2024 Sex Male (finding) [facility] National Score (1-10 0), lower number is lower risk 78 [facility] Medical Equipment Procedure Code Equipment Code Equipment Origin al Text Equipment Identifier Dates Blood Sugar Diagnostic (Blood Glucose Test) strip Start: 11-28-2019 Blood Sugar Diagnostic (Onetouch Verio Test Strips) strip Start: 06-29-2020 Insulin Syringe-Needle U-100 (Bd Insulin Syringe Ultra-Fine) 0.5 mL 31 gauge x 5/16 syringe Start: 01-21-2021 Insulin Syringe-Needle U-100 (Bd Insulin Syringe) 1 mL 25 gauge x 5/8 syringe Start: 05-24-2021 Lancets (Easy To uch Lancets) 28 gauge misc Start: 02-27-2020 Lancets (Onetouc h Delica Plus Lancet) 33 gauge misc Start: 06-29-2020 Blood Sugar Diagnostic (Blood Glucose Test) strip Start: 02-26-2019 End: 11-28-2019 Insulin Syringe-Needle U-100 (Bd Insulin Syringe Ultra-Fine) 0.5 mL 31 gauge x 5/16 syringe Start: 02-26-2019 End: 02-28-2020 Insulin Syringe-Needle U-100 (Bd Insulin Syringe Ultra-Fine) 0.5 mL 31 gauge x 5/16 syringe Start: 02-28-2020 End: 01-21-2021 Lancets (Easy To uch Lancets) 28 gauge misc Start: 05-06-2019 End: 02-27-2020 Blood Sugar Diagnostic (Blood Glucose Test) strip Start: 11-28-2019 Blood Sugar Diagnostic (Onetouch Verio Test Strips) strip Start: 06-29-2020 Insulin Syringe-Needle U-100 (Bd Insulin Syringe Ultra-Fine) 0.5 mL 31 gauge x 5/16 syringe Start: 01-21-2021 Insulin Syringe-Needle U-100 (Bd Insulin Syringe) 1 mL 25 gauge x 5/8 syringe Start: 05-24-2021 Lancets (Easy To uch Lancets) 28 gauge misc Start: 02-27-2020 Lancets (Onetouc h Delica Plus Lancet) 33 gauge misc Start: 06-29-2020 Blood Sugar Diagnostic (Blood Glucose Test) strip Start: 02-26-2019 End: 11-28-2019 Insulin Syringe-Needle U-100 (Bd Insulin Syringe Ultra-Fine) 0.5 mL 31 gauge x 5/16 syringe Start: 02-26-2019 End: 02-28-2020 Insulin Syringe-Needle U-100 (Bd Insulin Syringe Ultra-Fine) 0.5 mL 31 gauge x 5/16 syringe Start: 02-28-2020 End: 01-21-2021 Lancets (Easy To uch Lancets) 28 gauge misc Start: 05-06-2019 End: 02-27-2020 Blood Sugar Diagnostic (Blood Glucose Test) strip Start: 11-28-2019 Blood Sugar Diagnostic (Onetouch Verio Test Strips) strip Start: 06-29-2020 Insulin Syringe-Needle U-100 (Bd Insulin Syringe Ultra-Fine) 0.5 mL 31 gauge x 5/16 syringe Start: 01-21-2021 Insulin Syringe-Needle U-100 (Bd Insulin Syringe) 1 mL 25 gauge x 5/8 syringe Start: 05-24-2021 Lancets (Easy To uch Lancets) 28 gauge misc Start: 02-27-2020 Lancets (Onetouc h Delica Plus Lancet) 33 gauge misc Start: 06-29-2020 Blood Sugar Diagnostic (Blood Glucose Test) strip Start: 02-26-2019 End: 11-28-2019 Insulin Syringe-Needle U-100 (Bd Insulin Syringe Ultra-Fine) 0.5 mL 31 gauge x 5/16 syringe Start: 02-26-2019 End: 02-28-2020 Insulin Syringe-Needle U-100 (Bd Insulin Syringe Ultra-Fine) 0.5 mL 31 gauge x 5/16 syringe Start: 02-28-2020 End: 01-21-2021 Lancets (Easy To uch Lancets) 28 gauge misc Start: 05-06-2019 End: 02-27-2020 Blood Sugar Diagnostic (Blood Glucose Test) strip Start: 11-28-2019 Blood Sugar Diagnostic (Onetouch Verio Test Strips) strip Start: 06-29-2020 Insulin Syringe-Needle U-100 (Bd Insulin Syringe Ultra-Fine) 0.5 mL 31 gauge x 5/16 syringe Start: 01-21-2021 Insulin Syringe-Needle U-100 (Bd Insulin Syringe) 1 mL 25 gauge x 5/8 syringe Start: 05-24-2021 Lancets (Easy To uch Lancets) 28 gauge misc Start: 02-27-2020 Lancets (Onetouc h Delica Plus Lancet) 33 gauge misc Start: 06-29-2020 Blood Sugar Diagnostic (Blood Glucose Test) strip Start: 02-26-2019 End: 11-28-2019 Insulin Syringe-Needle U-100 (Bd Insulin Syringe Ultra-Fine) 0.5 mL 31 gauge x 5/16 syringe Start: 02-26-2019 End: 02-28-2020 Insulin Syringe-Needle U-100 (Bd Insulin Syringe Ultra-Fine) 0.5 mL 31 gauge x 5/16 syringe Start: 02-28-2020 End: 01-21-2021 Lancets (Easy To uch Lancets) 28 gauge misc Start: 05-06-2019 End: 02-27-2020 Blood Sugar Diagnostic (Blood Glucose Test) strip Start: 11-28-2019 Blood Sugar Diagnostic (Onetouch Verio Test Strips) strip Start: 06-29-2020 Insulin Syringe-Needle U-100 (Bd Insulin Syringe Ultra-Fine) 0.5 mL 31 gauge x 5/16 syringe Start: 01-21-2021 Insulin Syringe-Needle U-100 (Bd Insulin Syringe) 1 mL 25 gauge x 5/8 syringe Start: 05-24-2021 Lancets (Easy To uch Lancets) 28 gauge misc Start: 02-27-2020 Lancets (Onetouc h Delica Plus Lancet) 33 gauge misc Start: 06-29-2020 Blood Sugar Diagnostic (Blood Glucose Test) strip Start: 02-26-2019 End: 11-28-2019 Insulin Syringe-Needle U-100 (Bd Insulin Syringe Ultra-Fine) 0.5 mL 31 gauge x 5/16 syringe Start: 02-26-2019 End: 02-28-2020 Insulin Syringe-Needle U-100 (Bd Insulin Syringe Ultra-Fine) 0.5 mL 31 gauge x 5/16 syringe Start: 02-28-2020 End: 01-21-2021 Lancets (Easy To uch Lancets) 28 gauge misc Start: 05-06-2019 End: 02-27-2020 Blood Sugar Diagnostic (Blood Glucose Test) strip Start: 11-28-2019 Blood Sugar Diagnostic (Onetouch Verio Test Strips) strip Start: 08-11-2021 Insulin Syringe-Needle U-100 (Bd Insulin Syringe Ultra-Fine) 0.5 mL 31 gauge x 5/16 syringe Start: 01-21-2021 Insulin Syringe-Needle U-100 (Bd Insulin Syringe) 1 mL 25 gauge x 5/8 syringe Start: 05-24-2021 Lancets (Easy To uch Lancets) 28 gauge misc Start: 02-27-2020 Lancets (Onetouc h Delica Plus Lancet) 33 gauge misc Start: 08-11-2021 Blood Sugar Diagnostic (Blood Glucose Test) strip Start: 02-26-2019 End: 11-28-2019 Blood Sugar Diagnostic (Onetouch Verio Test Strips) strip Start: 06-29-2020 End: 08-11-2021 Insulin Syringe-Needle U-100 (Bd Insulin Syringe Ultra-Fine) 0.5 mL 31 gauge x 5/16 syringe Start: 02-26-2019 End: 02-28-2020 Insulin Syringe-Needle U-100 (Bd Insulin Syringe Ultra-Fine) 0.5 mL 31 gauge x 5/16 syringe Start: 02-28-2020 End: 01-21-2021 Lancets (Easy To uch Lancets) 28 gauge misc Start: 05-06-2019 End: 02-27-2020 Lancets (Onetouc h Delica Plus Lancet) 33 gauge misc Start: 06-29-2020 End: 08-11-2021 Blood Sugar Diagnostic (Blood Glucose Test) strip Start: 11-28-2019 Blood Sugar Diagnostic (Onetouch Verio Test Strips) strip Start: 08-11-2021 Insulin Syringe-Needle U-100 (Bd Insulin Syringe Ultra-Fine) 0.5 mL 31 gauge x 5/16 syringe Start: 01-21-2021 Insulin Syringe-Needle U-100 (Bd Insulin Syringe) 1 mL 25 gauge x 5/8 syringe Start: 05-24-2021 Lancets (Easy To uch Lancets) 28 gauge misc Start: 02-27-2020 Lancets (Onetouc h Delica Plus Lancet) 33 gauge misc Start: 08-11-2021 Blood Sugar Diagnostic (Blood Glucose Test) strip Start: 02-26-2019 End: 11-28-2019 Blood Sugar Diagnostic (Onetouch Verio Test Strips) strip Start: 06-29-2020 End: 08-11-2021 Insulin Syringe-Needle U-100 (Bd Insulin Syringe Ultra-Fine) 0.5 mL 31 gauge x 5/16 syringe Start: 02-26-2019 End: 02-28-2020 Insulin Syringe-Needle U-100 (Bd Insulin Syringe Ultra-Fine) 0.5 mL 31 gauge x 5/16 syringe Start: 02-28-2020 End: 01-21-2021 Lancets (Easy To uch Lancets) 28 gauge misc Start: 05-06-2019 End: 02-27-2020 Lancets (Onetouc h Delica Plus Lancet) 33 gauge misc Start: 06-29-2020 End: 08-11-2021 Blood Sugar Diagnostic (Blood Glucose Test) strip Start: 11-28-2019 Blood Sugar Diagnostic (Onetouch Verio Test Strips) strip Start: 08-11-2021 Insulin Syringe-Needle U-100 (Bd Insulin Syringe Ultra-Fine) 0.5 mL 31 gauge x 5/16 syringe Start: 01-21-2021 Insulin Syringe-Needle U-100 (Bd Insulin Syringe) 1 mL 25 gauge x 5/8 syringe Start: 05-24-2021 Lancets (Easy To uch Lancets) 28 gauge misc Start: 02-27-2020 Lancets (Onetouc h Delica Plus Lancet) 33 gauge misc Start: 08-11-2021 Blood Sugar Diagnostic (Blood Glucose Test) strip Start: 02-26-2019 End: 11-28-2019 Blood Sugar Diagnostic (Onetouch Verio Test Strips) strip Start: 06-29-2020 End: 08-11-2021 Insulin Syringe-Needle U-100 (Bd Insulin Syringe Ultra-Fine) 0.5 mL 31 gauge x 5/16 syringe Start: 02-26-2019 End: 02-28-2020 Insulin Syringe-Needle U-100 (Bd Insulin Syringe Ultra-Fine) 0.5 mL 31 gauge x 5/16 syringe Start: 02-28-2020 End: 01-21-2021 Lancets (Easy To uch Lancets) 28 gauge misc Start: 05-06-2019 End: 02-27-2020 Lancets (Onetouc h Delica Plus Lancet) 33 gauge misc Start: 06-29-2020 End: 08-11-2021 Blood Sugar Diagnostic (Blood Glucose Test) strip Start: 11-28-2019 Blood Sugar Diagnostic (Onetouch Verio Test Strips) strip Start: 08-11-2021 Insulin Syringe-Needle U-100 (Bd Insulin Syringe Ultra-Fine) 0.5 mL 31 gauge x 5/16 syringe Start: 01-21-2021 Insulin Syringe-Needle U-100 (Bd Insulin Syringe) 1 mL 25 gauge x 5/8 syringe Start: 05-24-2021 Lancets (Easy To uch Lancets) 28 gauge misc Start: 02-27-2020 Lancets (Onetouc h Delica Plus Lancet) 33 gauge misc Start: 08-11-2021 Blood Sugar Diagnostic (Blood Glucose Test) strip Start: 02-26-2019 End: 11-28-2019 Blood Sugar Diagnostic (Onetouch Verio Test Strips) strip Start: 06-29-2020 End: 08-11-2021 Insulin Syringe-Needle U-100 (Bd Insulin Syringe Ultra-Fine) 0.5 mL 31 gauge x 5/16 syringe Start: 02-26-2019 End: 02-28-2020 Insulin Syringe-Needle U-100 (Bd Insulin Syringe Ultra-Fine) 0.5 mL 31 gauge x 5/16 syringe Start: 02-28-2020 End: 01-21-2021 Lancets (Easy To uch Lancets) 28 gauge misc Start: 05-06-2019 End: 02-27-2020 Lancets (Onetouc h Delica Plus Lancet) 33 gauge misc Start: 06-29-2020 End: 08-11-2021 Blood Sugar Diagnostic (Blood Glucose Test) strip Start: 11-28-2019 Blood Sugar Diagnostic (Onetouch Verio Test Strips) strip Start: 08-11-2021 Insulin Syringe-Needle U-100 (Bd Insulin Syringe Ultra-Fine) 0.5 mL 31 gauge x 5/16 syringe Start: 01-21-2021 Insulin Syringe-Needle U-100 (Bd Insulin Syringe) 1 mL 25 gauge x 5/8 syringe Start: 05-24-2021 Lancets (Easy To uch Lancets) 28 gauge misc Start: 02-27-2020 Lancets (Onetouc h Delica Plus Lancet) 33 gauge misc Start: 08-11-2021 Blood Sugar Diagnostic (Blood Glucose Test) strip Start: 02-26-2019 End: 11-28-2019 Blood Sugar Diagnostic (Onetouch Verio Test Strips) strip Start: 06-29-2020 End: 08-11-2021 Insulin Syringe-Needle U-100 (Bd Insulin Syringe Ultra-Fine) 0.5 mL 31 gauge x 5/16 syringe Start: 02-26-2019 End: 02-28-2020 Insulin Syringe-Needle U-100 (Bd Insulin Syringe Ultra-Fine) 0.5 mL 31 gauge x 5/16 syringe Start: 02-28-2020 End: 01-21-2021 Lancets (Easy To uch Lancets) 28 gauge misc Start: 05-06-2019 End: 02-27-2020 Lancets (Onetouc h Delica Plus Lancet) 33 gauge misc Start: 06-29-2020 End: 08-11-2021 Blood Sugar Diagnostic (Blood Glucose Test) strip Start: 11-28-2019 Blood Sugar Diagnostic (Onetouch Verio Test Strips) strip Start: 08-11-2021 Insulin Syringe-Needle U-100 (Bd Insulin Syringe Ultra-Fine) 0.5 mL 31 gauge x 5/16 syringe Start: 01-21-2021 Insulin Syringe-Needle U-100 (Bd Insulin Syringe) 1 mL 25 gauge x 5/8 syringe Start: 05-24-2021 Lancets (Easy To uch Lancets) 28 gauge misc Start: 02-27-2020 Lancets (Onetouc h Delica Plus Lancet) 33 gauge misc Start: 08-11-2021 Blood Sugar Diagnostic (Blood Glucose Test) strip Start: 02-26-2019 End: 11-28-2019 Blood Sugar Diagnostic (Onetouch Verio Test Strips) strip Start: 06-29-2020 End: 08-11-2021 Insulin Syringe-Needle U-100 (Bd Insulin Syringe Ultra-Fine) 0.5 mL 31 gauge x 5/16 syringe Start: 02-26-2019 End: 02-28-2020 Insulin Syringe-Needle U-100 (Bd Insulin Syringe Ultra-Fine) 0.5 mL 31 gauge x 5/16 syringe Start: 02-28-2020 End: 01-21-2021 Lancets (Easy To uch Lancets) 28 gauge misc Start: 05-06-2019 End: 02-27-2020 Lancets (Onetouc h Delica Plus Lancet) 33 gauge misc Start: 06-29-2020 End: 08-11-2021 Blood Sugar Diagnostic (Blood Glucose Test) strip Start: 11-28-2019 Blood Sugar Diagnostic (Onetouch Verio Test Strips) strip Start: 08-11-2021 Insulin Syringe-Needle U-100 (Bd Insulin Syringe Ultra-Fine) 0.5 mL 31 gauge x 5/16 syringe Start: 01-21-2021 Insulin Syringe-Needle U-100 (Bd Insulin Syringe) 1 mL 25 gauge x 5/8 syringe Start: 05-24-2021 Lancets (Easy To uch Lancets) 28 gauge misc Start: 02-27-2020 Lancets (Onetouc h Delica Plus Lancet) 33 gauge misc Start: 08-11-2021 Blood Sugar Diagnostic (Blood Glucose Test) strip Start: 02-26-2019 End: 11-28-2019 Blood Sugar Diagnostic (Onetouch Verio Test Strips) strip Start: 06-29-2020 End: 08-11-2021 Insulin Syringe-Needle U-100 (Bd Insulin Syringe Ultra-Fine) 0.5 mL 31 gauge x 5/16 syringe Start: 02-26-2019 End: 02-28-2020 Insulin Syringe-Needle U-100 (Bd Insulin Syringe Ultra-Fine) 0.5 mL 31 gauge x 5/16 syringe Start: 02-28-2020 End: 01-21-2021 Lancets (Easy To uch Lancets) 28 gauge misc Start: 05-06-2019 End: 02-27-2020 Lancets (Onetouc h Delica Plus Lancet) 33 gauge misc Start: 06-29-2020 End: 08-11-2021 Blood Sugar Diagnostic (Blood Glucose Test) strip Start: 11-28-2019 Blood Sugar Diagnostic (Onetouch Verio Test Strips) strip Start: 08-11-2021 Insulin Syringe-Needle U-100 (Bd Insulin Syringe Ultra-Fine) 0.5 mL 31 gauge x 5/16 syringe Start: 01-21-2021 Insulin Syringe-Needle U-100 (Bd Insulin Syringe) 1 mL 25 gauge x 5/8 syringe Start: 05-24-2021 Lancets (Easy To uch Lancets) 28 gauge misc Start: 02-27-2020 Lancets (Onetouc h Delica Plus Lancet) 33 gauge misc Start: 08-11-2021 Blood Sugar Diagnostic (Blood Glucose Test) strip Start: 02-26-2019 End: 11-28-2019 Blood Sugar Diagnostic (Onetouch Verio Test Strips) strip Start: 06-29-2020 End: 08-11-2021 Insulin Syringe-Needle U-100 (Bd Insulin Syringe Ultra-Fine) 0.5 mL 31 gauge x 5/16 syringe Start: 02-26-2019 End: 02-28-2020 Insulin Syringe-Needle U-100 (Bd Insulin Syringe Ultra-Fine) 0.5 mL 31 gauge x 5/16 syringe Start: 02-28-2020 End: 01-21-2021 Lancets (Easy To uch Lancets) 28 gauge misc Start: 05-06-2019 End: 02-27-2020 Lancets (Onetouc h Delica Plus Lancet) 33 gauge misc Start: 06-29-2020 End: 08-11-2021 Blood Sugar Diagnostic (Blood Glucose Test) strip Start: 11-28-2019 Blood Sugar Diagnostic (Onetouch Verio Test Strips) strip Start: 08-11-2021 Insulin Syringe-Needle U-100 (Bd Insulin Syringe Ultra-Fine) 0.5 mL 31 gauge x 5/16 syringe Start: 01-21-2021 Insulin Syringe-Needle U-100 (Bd Insulin Syringe) 1 mL 25 gauge x 5/8 syringe Start: 05-24-2021 Lancets (Easy To uch Lancets) 28 gauge misc Start: 02-27-2020 Lancets (Onetouc h Delica Plus Lancet) 33 gauge misc Start: 08-11-2021 Blood Sugar Diagnostic (Blood Glucose Test) strip Start: 02-26-2019 End: 11-28-2019 Blood Sugar Diagnostic (Onetouch Verio Test Strips) strip Start: 06-29-2020 End: 08-11-2021 Insulin Syringe-Needle U-100 (Bd Insulin Syringe Ultra-Fine) 0.5 mL 31 gauge x 5/16 syringe Start: 02-26-2019 End: 02-28-2020 Insulin Syringe-Needle U-100 (Bd Insulin Syringe Ultra-Fine) 0.5 mL 31 gauge x 5/16 syringe Start: 02-28-2020 End: 01-21-2021 Lancets (Easy To uch Lancets) 28 gauge misc Start: 05-06-2019 End: 02-27-2020 Lancets (Onetouc h Delica Plus Lancet) 33 gauge misc Start: 06-29-2020 End: 08-11-2021 Blood Sugar Diagnostic (Blood Glucose Test) strip Start: 11-28-2019 Blood Sugar Diagnostic (Onetouch Verio Test Strips) strip Start: 08-11-2021 Insulin Syringe-Needle U-100 (Bd Insulin Syringe Ultra-Fine) 0.5 mL 31 gauge x 5/16 syringe Start: 06-02-2022 Insulin Syringe-Needle U-100 (Bd Insulin Syringe) 1 mL 25 gauge x 5/8 syringe Start: 05-24-2021 Lancets (Easy To uch Lancets) 28 gauge misc Start: 02-27-2020 Lancets (Onetouc h Delica Plus Lancet) 33 gauge misc Start: 08-11-2021 Pen Needle, Diab etic (Bd Ultra-Fine Shani Pen Needle) 32 gauge x 5/32 needle Start: 06-01-2022 Blood Sugar Diagnostic (Blood Glucose Test) strip Start: 02-26-2019 End: 11-28-2019 Blood Sugar Diagnostic (Onetouch Verio Test Strips) strip Start: 06-29-2020 End: 08-11-2021 Insulin Syringe-Needle U-100 (Bd Insulin Syringe Ultra-Fine) 0.5 mL 31 gauge x 5/16 syringe Start: 02-26-2019 End: 02-28-2020 Insulin Syringe-Needle U-100 (Bd Insulin Syringe Ultra-Fine) 0.5 mL 31 gauge x 5/16 syringe Start: 02-28-2020 End: 01-21-2021 Insulin Syringe-Needle U-100 (Bd Insulin Syringe Ultra-Fine) 0.5 mL 31 gauge x 5/16 syringe Start: 01-21-2021 End: 06-02-2022 Lancets (Easy To uch Lancets) 28 gauge misc Start: 05-06-2019 End: 02-27-2020 Lancets (Onetouc h Delica Plus Lancet) 33 gauge misc Start: 06-29-2020 End: 08-11-2021 Blood Sugar Diagnostic (Blood Glucose Test) strip Start: 11-28-2019 Blood Sugar Diagnostic (Onetouch Verio Test Strips) strip Start: 08-25-2022 Insulin Syringe-Needle U-100 (Bd Insulin Syringe Ultra-Fine) 0.5 mL 31 gauge x 5/16 syringe Start: 06-02-2022 Insulin Syringe-Needle U-100 (Bd Insulin Syringe) 1 mL 25 gauge x 5/8 syringe Start: 05-24-2021 Lancets (Easy To uch Lancets) 28 gauge misc Start: 02-27-2020 Lancets (Onetouc h Delica Plus Lancet) 33 gauge misc Start: 08-11-2021 Pen Needle, Diab etic (Bd Ultra-Fine Shani Pen Needle) 32 gauge x 5/32 needle Start: 06-01-2022 Blood Sugar Diagnostic (Blood Glucose Test) strip Start: 02-26-2019 End: 11-28-2019 Blood Sugar Diagnostic (Onetouch Verio Test Strips) strip Start: 06-29-2020 End: 08-11-2021 Blood Sugar Diagnostic (Onetouch Verio Test Strips) strip Start: 08-11-2021 End: 08-25-2022 Insulin Syringe-Needle U-100 (Bd Insulin Syringe Ultra-Fine) 0.5 mL 31 gauge x 5/16 syringe Start: 02-26-2019 End: 02-28-2020 Insulin Syringe-Needle U-100 (Bd Insulin Syringe Ultra-Fine) 0.5 mL 31 gauge x 5/16 syringe Start: 02-28-2020 End: 01-21-2021 Insulin Syringe-Needle U-100 (Bd Insulin Syringe Ultra-Fine) 0.5 mL 31 gauge x 5/16 syringe Start: 01-21-2021 End: 06-02-2022 Lancets (Easy To uch Lancets) 28 gauge misc Start: 05-06-2019 End: 02-27-2020 Lancets (Onetouc h Delica Plus Lancet) 33 gauge misc Start: 06-29-2020 End: 08-11-2021 Blood Sugar Diagnostic (Blood Glucose Test) strip Start: 11-28-2019 Blood Sugar Diagnostic (Onetouch Verio Test Strips) strip Start: 08-25-2022 Insulin Syringe-Needle U-100 (Bd Insulin Syringe Ultra-Fine) 0.5 mL 31 gauge x 5/16 syringe Start: 06-02-2022 Insulin Syringe-Needle U-100 (Bd Insulin Syringe) 1 mL 25 gauge x 5/8 syringe Start: 05-24-2021 Lancets (Easy To uch Lancets) 28 gauge misc Start: 02-27-2020 Lancets (Onetouc h Delica Plus Lancet) 33 gauge misc Start: 08-11-2021 Pen Needle, Diab etic (Bd Ultra-Fine Shani Pen Needle) 32 gauge x 5/32 needle Start: 06-01-2022 Blood Sugar Diagnostic (Blood Glucose Test) strip Start: 02-26-2019 End: 11-28-2019 Blood Sugar Diagnostic (Onetouch Verio Test Strips) strip Start: 06-29-2020 End: 08-11-2021 Blood Sugar Diagnostic (Onetouch Verio Test Strips) strip Start: 08-11-2021 End: 08-25-2022 Insulin Syringe-Needle U-100 (Bd Insulin Syringe Ultra-Fine) 0.5 mL 31 gauge x 5/16 syringe Start: 02-26-2019 End: 02-28-2020 Insulin Syringe-Needle U-100 (Bd Insulin Syringe Ultra-Fine) 0.5 mL 31 gauge x 5/16 syringe Start: 02-28-2020 End: 01-21-2021 Insulin Syringe-Needle U-100 (Bd Insulin Syringe Ultra-Fine) 0.5 mL 31 gauge x 5/16 syringe Start: 01-21-2021 End: 06-02-2022 Lancets (Easy To uch Lancets) 28 gauge misc Start: 05-06-2019 End: 02-27-2020 Lancets (Onetouc h Delica Plus Lancet) 33 gauge misc Start: 06-29-2020 End: 08-11-2021 Blood Sugar Diagnostic (Blood Glucose Test) strip Start: 11-28-2019 Blood Sugar Diagnostic (Onetouch Verio Test Strips) strip Start: 08-25-2022 Insulin Syringe-Needle U-100 (Bd Insulin Syringe Ultra-Fine) 0.5 mL 31 gauge x 5/16 syringe Start: 06-02-2022 Insulin Syringe-Needle U-100 (Bd Insulin Syringe) 1 mL 25 gauge x 5/8 syringe Start: 05-24-2021 Lancets (Easy To uch Lancets) 28 gauge misc Start: 02-27-2020 Lancets (Onetouc h Delica Plus Lancet) 33 gauge misc Start: 08-11-2021 Pen Needle, Diab etic (Bd Ultra-Fine Shani Pen Needle) 32 gauge x 5/32 needle Start: 06-01-2022 Blood Sugar Diagnostic (Blood Glucose Test) strip Start: 02-26-2019 End: 11-28-2019 Blood Sugar Diagnostic (Onetouch Verio Test Strips) strip Start: 06-29-2020 End: 08-11-2021 Blood Sugar Diagnostic (Onetouch Verio Test Strips) strip Start: 08-11-2021 End: 08-25-2022 Insulin Syringe-Needle U-100 (Bd Insulin Syringe Ultra-Fine) 0.5 mL 31 gauge x 5/16 syringe Start: 02-26-2019 End: 02-28-2020 Insulin Syringe-Needle U-100 (Bd Insulin Syringe Ultra-Fine) 0.5 mL 31 gauge x 5/16 syringe Start: 02-28-2020 End: 01-21-2021 Insulin Syringe-Needle U-100 (Bd Insulin Syringe Ultra-Fine) 0.5 mL 31 gauge x 5/16 syringe Start: 01-21-2021 End: 06-02-2022 Lancets (Easy To uch Lancets) 28 gauge misc Start: 05-06-2019 End: 02-27-2020 Lancets (Onetouc h Delica Plus Lancet) 33 gauge misc Start: 06-29-2020 End: 08-11-2021 Blood Sugar Diagnostic (Blood Glucose Test) strip Start: 11-28-2019 Blood Sugar Diagnostic (Onetouch Verio Test Strips) strip Start: 08-25-2022 Insulin Syringe-Needle U-100 (Bd Insulin Syringe Ultra-Fine) 0.5 mL 31 gauge x 5/16 syringe Start: 06-02-2022 Insulin Syringe-Needle U-100 (Bd Insulin Syringe) 1 mL 25 gauge x 5/8 syringe Start: 05-24-2021 Lancets (Easy To uch Lancets) 28 gauge misc Start: 02-27-2020 Lancets (Onetouc h Delica Plus Lancet) 33 gauge misc Start: 08-11-2021 Pen Needle, Diab etic (Bd Ultra-Fine Shani Pen Needle) 32 gauge x 5/32 needle Start: 06-01-2022 Blood Sugar Diagnostic (Blood Glucose Test) strip Start: 02-26-2019 End: 11-28-2019 Blood Sugar Diagnostic (Onetouch Verio Test Strips) strip Start: 06-29-2020 End: 08-11-2021 Blood Sugar Diagnostic (Onetouch Verio Test Strips) strip Start: 08-11-2021 End: 08-25-2022 Insulin Syringe-Needle U-100 (Bd Insulin Syringe Ultra-Fine) 0.5 mL 31 gauge x 5/16 syringe Start: 02-26-2019 End: 02-28-2020 Insulin Syringe-Needle U-100 (Bd Insulin Syringe Ultra-Fine) 0.5 mL 31 gauge x 5/16 syringe Start: 02-28-2020 End: 01-21-2021 Insulin Syringe-Needle U-100 (Bd Insulin Syringe Ultra-Fine) 0.5 mL 31 gauge x 5/16 syringe Start: 01-21-2021 End: 06-02-2022 Lancets (Easy To uch Lancets) 28 gauge misc Start: 05-06-2019 End: 02-27-2020 Lancets (Onetouc h Delica Plus Lancet) 33 gauge misc Start: 06-29-2020 End: 08-11-2021 Blood Sugar Diagnostic (Blood Glucose Test) strip Start: 11-28-2019 Blood Sugar Diagnostic (Onetouch Verio Test Strips) strip Start: 08-25-2022 Insulin Syringe-Needle U-100 (Bd Insulin Syringe Ultra-Fine) 0.5 mL 31 gauge x 5/16 syringe Start: 06-02-2022 Insulin Syringe-Needle U-100 (Bd Insulin Syringe) 1 mL 25 gauge x 5/8 syringe Start: 05-24-2021 Lancets (Easy To uch Lancets) 28 gauge misc Start: 02-27-2020 Lancets (Onetouc h Delica Plus Lancet) 33 gauge misc Start: 12-05-2022 Pen Needle, Diab etic (Bd Ultra-Fine Shani Pen Needle) 32 gauge x 5/32 needle Start: 06-01-2022 Blood Sugar Diagnostic (Blood Glucose Test) strip Start: 02-26-2019 End: 11-28-2019 Blood Sugar Diagnostic (Onetouch Verio Test Strips) strip Start: 06-29-2020 End: 08-11-2021 Blood Sugar Diagnostic (Onetouch Verio Test Strips) strip Start: 08-11-2021 End: 08-25-2022 Insulin Syringe-Needle U-100 (Bd Insulin Syringe Ultra-Fine) 0.5 mL 31 gauge x 5/16 syringe Start: 02-26-2019 End: 02-28-2020 Insulin Syringe-Needle U-100 (Bd Insulin Syringe Ultra-Fine) 0.5 mL 31 gauge x 5/16 syringe Start: 02-28-2020 End: 01-21-2021 Insulin Syringe-Needle U-100 (Bd Insulin Syringe Ultra-Fine) 0.5 mL 31 gauge x 5/16 syringe Start: 01-21-2021 End: 06-02-2022 Lancets (Easy To uch Lancets) 28 gauge misc Start: 05-06-2019 End: 02-27-2020 Lancets (Onetouc h Delica Plus Lancet) 33 gauge misc Start: 06-29-2020 End: 08-11-2021 Lancets (Onetouc h Delica Plus Lancet) 33 gauge misc Start: 08-11-2021 End: 12-05-2022 Blood Sugar Diagnostic (Blood Glucose Test) strip Start: 11-28-2019 Blood Sugar Diagnostic (Onetouch Verio Test Strips) strip Start: 08-25-2022 Insulin Syringe-Needle U-100 (Bd Insulin Syringe Ultra-Fine) 0.5 mL 31 gauge x 5/16 syringe Start: 06-02-2022 Insulin Syringe-Needle U-100 (Bd Insulin Syringe) 1 mL 25 gauge x 5/8 syringe Start: 05-24-2021 Lancets (Easy To uch Lancets) 28 gauge misc Start: 02-27-2020 Lancets (Onetouc h Delica Plus Lancet) 33 gauge misc Start: 12-05-2022 Pen Needle, Diab etic (Bd Ultra-Fine Shani Pen Needle) 32 gauge x 5/32 needle Start: 06-01-2022 Blood Sugar Diagnostic (Blood Glucose Test) strip Start: 02-26-2019 End: 11-28-2019 Blood Sugar Diagnostic (Onetouch Verio Test Strips) strip Start: 06-29-2020 End: 08-11-2021 Blood Sugar Diagnostic (Onetouch Verio Test Strips) strip Start: 08-11-2021 End: 08-25-2022 Insulin Syringe-Needle U-100 (Bd Insulin Syringe Ultra-Fine) 0.5 mL 31 gauge x 5/16 syringe Start: 02-26-2019 End: 02-28-2020 Insulin Syringe-Needle U-100 (Bd Insulin Syringe Ultra-Fine) 0.5 mL 31 gauge x 5/16 syringe Start: 02-28-2020 End: 01-21-2021 Insulin Syringe-Needle U-100 (Bd Insulin Syringe Ultra-Fine) 0.5 mL 31 gauge x 5/16 syringe Start: 01-21-2021 End: 06-02-2022 Lancets (Easy To uch Lancets) 28 gauge misc Start: 05-06-2019 End: 02-27-2020 Lancets (Onetouc h Delica Plus Lancet) 33 gauge misc Start: 06-29-2020 End: 08-11-2021 Lancets (Onetouc h Delica Plus Lancet) 33 gauge misc Start: 08-11-2021 End: 12-05-2022 Blood Sugar Diagnostic (Blood Glucose Test) strip Start: 11-28-2019 Blood Sugar Diagnostic (Onetouch Verio Test Strips) strip Start: 08-25-2022 Insulin Syringe-Needle U-100 (Bd Insulin Syringe Ultra-Fine) 0.5 mL 31 gauge x 5/16 syringe Start: 06-02-2022 Insulin Syringe-Needle U-100 (Bd Insulin Syringe) 1 mL 25 gauge x 5/8 syringe Start: 05-24-2021 Lancets (Easy To uch Lancets) 28 gauge misc Start: 02-27-2020 Lancets (Onetouc h Delica Plus Lancet) 33 gauge misc Start: 12-05-2022 Pen Needle, Diab etic (Bd Ultra-Fine Shani Pen Needle) 32 gauge x 5/32 needle Start: 06-01-2022 Blood Sugar Diagnostic (Blood Glucose Test) strip Start: 02-26-2019 End: 11-28-2019 Blood Sugar Diagnostic (Onetouch Verio Test Strips) strip Start: 06-29-2020 End: 08-11-2021 Blood Sugar Diagnostic (Onetouch Verio Test Strips) strip Start: 08-11-2021 End: 08-25-2022 Insulin Syringe-Needle U-100 (Bd Insulin Syringe Ultra-Fine) 0.5 mL 31 gauge x 5/16 syringe Start: 02-26-2019 End: 02-28-2020 Insulin Syringe-Needle U-100 (Bd Insulin Syringe Ultra-Fine) 0.5 mL 31 gauge x 5/16 syringe Start: 02-28-2020 End: 01-21-2021 Insulin Syringe-Needle U-100 (Bd Insulin Syringe Ultra-Fine) 0.5 mL 31 gauge x 5/16 syringe Start: 01-21-2021 End: 06-02-2022 Lancets (Easy To uch Lancets) 28 gauge misc Start: 05-06-2019 End: 02-27-2020 Lancets (Onetouc h Delica Plus Lancet) 33 gauge misc Start: 06-29-2020 End: 08-11-2021 Lancets (Onetouc h Delica Plus Lancet) 33 gauge misc Start: 08-11-2021 End: 12-05-2022 Blood Sugar Diagnostic (Blood Glucose Test) strip Start: 11-28-2019 Blood Sugar Diagnostic (Onetouch Verio Test Strips) strip Start: 08-25-2022 Insulin Syringe-Needle U-100 (Bd Insulin Syringe Ultra-Fine) 0.5 mL 31 gauge x 5/16 syringe Start: 06-02-2022 Insulin Syringe-Needle U-100 (Bd Insulin Syringe) 1 mL 25 gauge x 5/8 syringe Start: 05-24-2021 Lancets (Easy To uch Lancets) 28 gauge misc Start: 02-27-2020 Lancets (Onetouc h Delica Plus Lancet) 33 gauge misc Start: 12-05-2022 Pen Needle, Diab etic (Bd Ultra-Fine Shani Pen Needle) 32 gauge x 5/32 needle Start: 06-01-2022 Blood Sugar Diagnostic (Blood Glucose Test) strip Start: 02-26-2019 End: 11-28-2019 Blood Sugar Diagnostic (Onetouch Verio Test Strips) strip Start: 06-29-2020 End: 08-11-2021 Blood Sugar Diagnostic (Onetouch Verio Test Strips) strip Start: 08-11-2021 End: 08-25-2022 Insulin Syringe-Needle U-100 (Bd Insulin Syringe Ultra-Fine) 0.5 mL 31 gauge x 5/16 syringe Start: 02-26-2019 End: 02-28-2020 Insulin Syringe-Needle U-100 (Bd Insulin Syringe Ultra-Fine) 0.5 mL 31 gauge x 5/16 syringe Start: 02-28-2020 End: 01-21-2021 Insulin Syringe-Needle U-100 (Bd Insulin Syringe Ultra-Fine) 0.5 mL 31 gauge x 5/16 syringe Start: 01-21-2021 End: 06-02-2022 Lancets (Easy To uch Lancets) 28 gauge misc Start: 05-06-2019 End: 02-27-2020 Lancets (Onetouc h Delica Plus Lancet) 33 gauge misc Start: 06-29-2020 End: 08-11-2021 Lancets (Onetouc h Delica Plus Lancet) 33 gauge misc Start: 08-11-2021 End: 12-05-2022 Blood Sugar Diagnostic (Blood Glucose Test) strip Start: 2024 Blood Sugar Diagnostic (Onetouch Verio Test Strips) strip Start: 08-25-2022 Insulin Syringe-Needle U-100 (Bd Insulin Syringe Ultra-Fine) 0.5 mL 31 gauge x 5/16 syringe Start: 06-02-2022 Insulin Syringe-Needle U-100 (Bd Insulin Syringe Ultra-Fine) 1 mL 31 gauge x 5/16 syringe Start: 08-31-2023 Insulin Syringe-Needle U-100 (Bd Insulin Syringe) 1 mL 25 gauge x 5/8 syringe Start: 05-24-2021 Lancets (Easy To uch Lancets) 28 gauge misc Start: 02-27-2020 Lancets (Onetouc h Delica Plus Lancet) 33 gauge misc Start: 02-22-2024 Pen Needle, Diab etic (Bd Ultra-Fine Shani Pen Needle) 32 gauge x 5/32 needle Start: 07-20-2023 Pen Needle, Diab etic (Bd Ultra-Fine Shani Pen Needle) 32 gauge x 5/32 needle Start: 08-31-2023 Blood Sugar Diagnostic (Blood Glucose Test) strip Start: 02-26-2019 End: 11-28-2019 Blood Sugar Diagnostic (Blood Glucose Test) strip Start: 11-28-2019 End: 08-14-2023 Blood Sugar Diagnostic (Blood Glucose Test) strip Start: 08-14-2023 End: 2024 Blood Sugar Diagnostic (Onetouch Verio Test Strips) strip Start: 06-29-2020 End: 08-11-2021 Blood Sugar Diagnostic (Onetouch Verio Test Strips) strip Start: 08-11-2021 End: 08-25-2022 Insulin Syringe-Needle U-100 (Bd Insulin Syringe Ultra-Fine) 0.5 mL 31 gauge x 5/16 syringe Start: 02-26-2019 End: 02-28-2020 Insulin Syringe-Needle U-100 (Bd Insulin Syringe Ultra-Fine) 0.5 mL 31 gauge x 5/16 syringe Start: 02-28-2020 End: 01-21-2021 Insulin Syringe-Needle U-100 (Bd Insulin Syringe Ultra-Fine) 0.5 mL 31 gauge x 5/16 syringe Start: 01-21-2021 End: 06-02-2022 Lancets (Easy To uch Lancets) 28 gauge misc Start: 05-06-2019 End: 02-27-2020 Lancets (Onetouc h Delica Plus Lancet) 33 gauge misc Start: 06-29-2020 End: 08-11-2021 Lancets (Onetouc h Delica Plus Lancet) 33 gauge misc Start: 08-11-2021 End: 12-05-2022 Lancets (Onetouc h Delica Plus Lancet) 33 gauge misc Start: 12-05-2022 End: 02-22-2024 Pen Needle, Diab etic (Bd Ultra-Fine Shani Pen Needle) 32 gauge x 5/32 needle Start: 06-01-2022 End: 07-20-2023 Blood Sugar Diagnostic (Blood Glucose Test) strip Start: 2024 Blood Sugar Diagnostic (Onetouch Verio Test Strips) strip Start: 08-25-2022 Insulin Syringe-Needle U-100 (Bd Insulin Syringe Ultra-Fine) 0.5 mL 31 gauge x 5/16 syringe Start: 06-02-2022 Insulin Syringe-Needle U-100 (Bd Insulin Syringe Ultra-Fine) 1 mL 31 gauge x 5/16 syringe Start: 08-31-2023 Insulin Syringe-Needle U-100 (Bd Insulin Syringe) 1 mL 25 gauge x 5/8 syringe Start: 05-24-2021 Lancets (Easy To uch Lancets) 28 gauge misc Start: 02-27-2020 Lancets (Onetouc h Delica Plus Lancet) 33 gauge misc Start: 02-22-2024 Pen Needle, Diab etic (Bd Ultra-Fine Shani Pen Needle) 32 gauge x 5/32 needle Start: 07-20-2023 Pen Needle, Diab etic (Bd Ultra-Fine Shani Pen Needle) 32 gauge x 5/32 needle Start: 08-31-2023 Blood Sugar Diagnostic (Blood Glucose Test) strip Start: 02-26-2019 End: 11-28-2019 Blood Sugar Diagnostic (Blood Glucose Test) strip Start: 11-28-2019 End: 08-14-2023 Blood Sugar Diagnostic (Blood Glucose Test) strip Start: 08-14-2023 End: 2024 Blood Sugar Diagnostic (Onetouch Verio Test Strips) strip Start: 06-29-2020 End: 08-11-2021 Blood Sugar Diagnostic (Onetouch Verio Test Strips) strip Start: 08-11-2021 End: 08-25-2022 Insulin Syringe-Needle U-100 (Bd Insulin Syringe Ultra-Fine) 0.5 mL 31 gauge x 5/16 syringe Start: 02-26-2019 End: 02-28-2020 Insulin Syringe-Needle U-100 (Bd Insulin Syringe Ultra-Fine) 0.5 mL 31 gauge x 5/16 syringe Start: 02-28-2020 End: 01-21-2021 Insulin Syringe-Needle U-100 (Bd Insulin Syringe Ultra-Fine) 0.5 mL 31 gauge x 5/16 syringe Start: 01-21-2021 End: 06-02-2022 Lancets (Easy To uch Lancets) 28 gauge misc Start: 05-06-2019 End: 02-27-2020 Lancets (Onetouc h Delica Plus Lancet) 33 gauge misc Start: 06-29-2020 End: 08-11-2021 Lancets (Onetouc h Delica Plus Lancet) 33 gauge misc Start: 08-11-2021 End: 12-05-2022 Lancets (Onetouc h Delica Plus Lancet) 33 gauge misc Start: 12-05-2022 End: 02-22-2024 Pen Needle, Diab etic (Bd Ultra-Fine Shani Pen Needle) 32 gauge x 5/32 needle Start: 06-01-2022 End: 07-20-2023 Blood Sugar Diagnostic (Blood Glucose Test) strip Start: 2024 Blood Sugar Diagnostic (Onetouch Verio Test Strips) strip Start: 08-25-2022 Insulin Syringe-Needle U-100 (Bd Insulin Syringe Ultra-Fine) 0.5 mL 31 gauge x 5/16 syringe Start: 06-02-2022 Insulin Syringe-Needle U-100 (Bd Insulin Syringe Ultra-Fine) 1 mL 31 gauge x 5/16 syringe Start: 08-31-2023 Insulin Syringe-Needle U-100 (Bd Insulin Syringe) 1 mL 25 gauge x 5/8 syringe Start: 05-24-2021 Lancets (Easy To uch Lancets) 28 gauge misc Start: 02-27-2020 Lancets (Onetouc h Delica Plus Lancet) 33 gauge misc Start: 02-22-2024 Pen Needle, Diab etic (Bd Ultra-Fine Shani Pen Needle) 32 gauge x 5/32 needle Start: 07-20-2023 Pen Needle, Diab etic (Bd Ultra-Fine Shani Pen Needle) 32 gauge x 5/32 needle Start: 08-31-2023 Blood Sugar Diagnostic (Blood Glucose Test) strip Start: 02-26-2019 End: 11-28-2019 Blood Sugar Diagnostic (Blood Glucose Test) strip Start: 11-28-2019 End: 08-14-2023 Blood Sugar Diagnostic (Blood Glucose Test) strip Start: 08-14-2023 End: 2024 Blood Sugar Diagnostic (Onetouch Verio Test Strips) strip Start: 06-29-2020 End: 08-11-2021 Blood Sugar Diagnostic (Onetouch Verio Test Strips) strip Start: 08-11-2021 End: 08-25-2022 Insulin Syringe-Needle U-100 (Bd Insulin Syringe Ultra-Fine) 0.5 mL 31 gauge x 5/16 syringe Start: 02-26-2019 End: 02-28-2020 Insulin Syringe-Needle U-100 (Bd Insulin Syringe Ultra-Fine) 0.5 mL 31 gauge x 5/16 syringe Start: 02-28-2020 End: 01-21-2021 Insulin Syringe-Needle U-100 (Bd Insulin Syringe Ultra-Fine) 0.5 mL 31 gauge x 5/16 syringe Start: 01-21-2021 End: 06-02-2022 Lancets (Easy To uch Lancets) 28 gauge misc Start: 05-06-2019 End: 02-27-2020 Lancets (Onetouc h Delica Plus Lancet) 33 gauge misc Start: 06-29-2020 End: 08-11-2021 Lancets (Onetouc h Delica Plus Lancet) 33 gauge misc Start: 08-11-2021 End: 12-05-2022 Lancets (Onetouc h Delica Plus Lancet) 33 gauge misc Start: 12-05-2022 End: 02-22-2024 Pen Needle, Diab etic (Bd Ultra-Fine Shani Pen Needle) 32 gauge x 5/32 needle Start: 06-01-2022 End: 07-20-2023 Blood Sugar Diagnostic (Blood Glucose Test) strip Start: 2024 Blood Sugar Diagnostic (Onetouch Verio Test Strips) strip Start: 08-25-2022 Insulin Syringe-Needle U-100 (Bd Insulin Syringe Ultra-Fine) 0.5 mL 31 gauge x 5/16 syringe Start: 06-02-2022 Insulin Syringe-Needle U-100 (Bd Insulin Syringe Ultra-Fine) 1 mL 31 gauge x 5/16 syringe Start: 08-31-2023 Insulin Syringe-Needle U-100 (Bd Insulin Syringe) 1 mL 25 gauge x 5/8 syringe Start: 05-24-2021 Lancets (Easy To uch Lancets) 28 gauge misc Start: 02-27-2020 Lancets (Onetouc h Delica Plus Lancet) 33 gauge misc Start: 02-22-2024 Pen Needle, Diab etic (Bd Ultra-Fine Shani Pen Needle) 32 gauge x 5/32 needle Start: 07-20-2023 Pen Needle, Diab etic (Bd Ultra-Fine Shani Pen Needle) 32 gauge x 5/32 needle Start: 08-31-2023 Blood Sugar Diagnostic (Blood Glucose Test) strip Start: 02-26-2019 End: 11-28-2019 Blood Sugar Diagnostic (Blood Glucose Test) strip Start: 11-28-2019 End: 08-14-2023 Blood Sugar Diagnostic (Blood Glucose Test) strip Start: 08-14-2023 End: 2024 Blood Sugar Diagnostic (Onetouch Verio Test Strips) strip Start: 06-29-2020 End: 08-11-2021 Blood Sugar Diagnostic (Onetouch Verio Test Strips) strip Start: 08-11-2021 End: 08-25-2022 Insulin Syringe-Needle U-100 (Bd Insulin Syringe Ultra-Fine) 0.5 mL 31 gauge x 5/16 syringe Start: 02-26-2019 End: 02-28-2020 Insulin Syringe-Needle U-100 (Bd Insulin Syringe Ultra-Fine) 0.5 mL 31 gauge x 5/16 syringe Start: 02-28-2020 End: 01-21-2021 Insulin Syringe-Needle U-100 (Bd Insulin Syringe Ultra-Fine) 0.5 mL 31 gauge x 5/16 syringe Start: 01-21-2021 End: 06-02-2022 Lancets (Easy To uch Lancets) 28 gauge misc Start: 05-06-2019 End: 02-27-2020 Lancets (Onetouc h Delica Plus Lancet) 33 gauge misc Start: 06-29-2020 End: 08-11-2021 Lancets (Onetouc h Delica Plus Lancet) 33 gauge misc Start: 08-11-2021 End: 12-05-2022 Lancets (Onetouc h Delica Plus Lancet) 33 gauge misc Start: 12-05-2022 End: 02-22-2024 Pen Needle, Diab etic (Bd Ultra-Fine Shani Pen Needle) 32 gauge x 5/32 needle Start: 06-01-2022 End: 07-20-2023 Blood Sugar Diagnostic (Blood Glucose Test) strip Start: 2024 Blood Sugar Diagnostic (Onetouch Verio Test Strips) strip Start: 07-11-2024 Insulin Syringe-Needle U-100 (Bd Insulin Syringe Ultra-Fine) 0.5 mL 31 gauge x 5/16 syringe Start: 06-02-2022 Insulin Syringe-Needle U-100 (Bd Insulin Syringe Ultra-Fine) 1 mL 31 gauge x 5/16 syringe Start: 08-31-2023 Insulin Syringe-Needle U-100 (Bd Insulin Syringe) 1 mL 25 gauge x 5/8 syringe Start: 05-24-2021 Lancets (Easy To uch Lancets) 28 gauge misc Start: 02-27-2020 Lancets (Onetouc h Delica Plus Lancet) 33 gauge misc Start: 02-22-2024 Pen Needle, Diab etic (Bd Ultra-Fine Shani Pen Needle) 32 gauge x 5/32 needle Start: 08-31-2023 Pen Needle, Diab etic 32 gauge x 5/32 needle Start: 08-09-2024 Blood Sugar Diagnostic (Blood Glucose Test) strip Start: 02-26-2019 End: 11-28-2019 Blood Sugar Diagnostic (Blood Glucose Test) strip Start: 11-28-2019 End: 08-14-2023 Blood Sugar Diagnostic (Blood Glucose Test) strip Start: 08-14-2023 End: 2024 Blood Sugar Diagnostic (Onetouch Verio Test Strips) strip Start: 06-29-2020 End: 08-11-2021 Blood Sugar Diagnostic (Onetouch Verio Test Strips) strip Start: 08-11-2021 End: 08-25-2022 Blood Sugar Diagnostic (Onetouch Verio Test Strips) strip Start: 08-25-2022 End: 07-11-2024 Insulin Syringe-Needle U-100 (Bd Insulin Syringe Ultra-Fine) 0.5 mL 31 gauge x 5/16 syringe Start: 02-26-2019 End: 02-28-2020 Insulin Syringe-Needle U-100 (Bd Insulin Syringe Ultra-Fine) 0.5 mL 31 gauge x 5/16 syringe Start: 02-28-2020 End: 01-21-2021 Insulin Syringe-Needle U-100 (Bd Insulin Syringe Ultra-Fine) 0.5 mL 31 gauge x 5/16 syringe Start: 01-21-2021 End: 06-02-2022 Lancets (Easy To uch Lancets) 28 gauge misc Start: 05-06-2019 End: 02-27-2020 Lancets (Onetouc h Delica Plus Lancet) 33 gauge misc Start: 06-29-2020 End: 08-11-2021 Lancets (Onetouc h Delica Plus Lancet) 33 gauge misc Start: 08-11-2021 End: 12-05-2022 Lancets (Onetouc h Delica Plus Lancet) 33 gauge misc Start: 12-05-2022 End: 02-22-2024 Pen Needle, Diab etic (Bd Ultra-Fine Shani Pen Needle) 32 gauge x 5/32 needle Start: 06-01-2022 End: 07-20-2023 Pen Needle, Diab etic (Bd Ultra-Fine Shani Pen Needle) 32 gauge x 5/32 needle Start: 07-20-2023 End: 08-09-2024 Blood Sugar Diagnostic (Blood Glucose Test) strip Start: 2024 Blood Sugar Diagnostic (Onetouch Verio Test Strips) strip Start: 07-11-2024 Insulin Syringe-Needle U-100 (Bd Insulin Syringe Ultra-Fine) 0.5 mL 31 gauge x 5/16 syringe Start: 06-02-2022 Insulin Syringe-Needle U-100 (Bd Insulin Syringe Ultra-Fine) 1 mL 31 gauge x 5/16 syringe Start: 08-31-2023 Insulin Syringe-Needle U-100 (Bd Insulin Syringe) 1 mL 25 gauge x 5/8 syringe Start: 05-24-2021 Lancets (Easy To uch Lancets) 28 gauge misc Start: 02-27-2020 Lancets (Onetouc h Delica Plus Lancet) 33 gauge misc Start: 02-22-2024 Pen Needle, Diab etic (Bd Ultra-Fine Shani Pen Needle) 32 gauge x 5/32 needle Start: 08-31-2023 Pen Needle, Diab etic 32 gauge x 5/32 needle Start: 08-09-2024 Blood Sugar Diagnostic (Blood Glucose Test) strip Start: 02-26-2019 End: 11-28-2019 Blood Sugar Diagnostic (Blood Glucose Test) strip Start: 11-28-2019 End: 08-14-2023 Blood Sugar Diagnostic (Blood Glucose Test) strip Start: 08-14-2023 End: 2024 Blood Sugar Diagnostic (Onetouch Verio Test Strips) strip Start: 06-29-2020 End: 08-11-2021 Blood Sugar Diagnostic (Onetouch Verio Test Strips) strip Start: 08-11-2021 End: 08-25-2022 Blood Sugar Diagnostic (Onetouch Verio Test Strips) strip Start: 08-25-2022 End: 07-11-2024 Insulin Syringe-Needle U-100 (Bd Insulin Syringe Ultra-Fine) 0.5 mL 31 gauge x 5/16 syringe Start: 02-26-2019 End: 02-28-2020 Insulin Syringe-Needle U-100 (Bd Insulin Syringe Ultra-Fine) 0.5 mL 31 gauge x 5/16 syringe Start: 02-28-2020 End: 01-21-2021 Insulin Syringe-Needle U-100 (Bd Insulin Syringe Ultra-Fine) 0.5 mL 31 gauge x 5/16 syringe Start: 01-21-2021 End: 06-02-2022 Lancets (Easy To uch Lancets) 28 gauge misc Start: 05-06-2019 End: 02-27-2020 Lancets (Onetouc h Delica Plus Lancet) 33 gauge misc Start: 06-29-2020 End: 08-11-2021 Lancets (Onetouc h Delica Plus Lancet) 33 gauge misc Start: 08-11-2021 End: 12-05-2022 Lancets (Onetouc h Delica Plus Lancet) 33 gauge misc Start: 12-05-2022 End: 02-22-2024 Pen Needle, Diab etic (Bd Ultra-Fine Shani Pen Needle) 32 gauge x 5/32 needle Start: 06-01-2022 End: 07-20-2023 Pen Needle, Diab etic (Bd Ultra-Fine Shani Pen Needle) 32 gauge x 5/32 needle Start: 07-20-2023 End: 08-09-2024 Blood Sugar Diagnostic (Blood Glucose Test) strip Start: 2024 Blood Sugar Diagnostic (Onetouch Verio Test Strips) strip Start: 07-11-2024 Insulin Syringe-Needle U-100 (Bd Insulin Syringe Ultra-Fine) 0.5 mL 31 gauge x 5/16 syringe Start: 06-02-2022 Insulin Syringe-Needle U-100 (Bd Insulin Syringe Ultra-Fine) 1 mL 31 gauge x 5/16 syringe Start: 08-31-2023 Insulin Syringe-Needle U-100 (Bd Insulin Syringe) 1 mL 25 gauge x 5/8 syringe Start: 05-24-2021 Lancets (Easy To uch Lancets) 28 gauge misc Start: 02-27-2020 Lancets (Onetouc h Delica Plus Lancet) 33 gauge misc Start: 02-22-2024 Pen Needle, Diab etic (Bd Ultra-Fine Shani Pen Needle) 32 gauge x 5/32 needle Start: 08-31-2023 Pen Needle, Diab etic 32 gauge x 5/32 needle Start: 08-09-2024 Blood Sugar Diagnostic (Blood Glucose Test) strip Start: 02-26-2019 End: 11-28-2019 Blood Sugar Diagnostic (Blood Glucose Test) strip Start: 11-28-2019 End: 08-14-2023 Blood Sugar Diagnostic (Blood Glucose Test) strip Start: 08-14-2023 End: 2024 Blood Sugar Diagnostic (Onetouch Verio Test Strips) strip Start: 06-29-2020 End: 08-11-2021 Blood Sugar Diagnostic (Onetouch Verio Test Strips) strip Start: 08-11-2021 End: 08-25-2022 Blood Sugar Diagnostic (Onetouch Verio Test Strips) strip Start: 08-25-2022 End: 07-11-2024 Insulin Syringe-Needle U-100 (Bd Insulin Syringe Ultra-Fine) 0.5 mL 31 gauge x 5/16 syringe Start: 02-26-2019 End: 02-28-2020 Insulin Syringe-Needle U-100 (Bd Insulin Syringe Ultra-Fine) 0.5 mL 31 gauge x 5/16 syringe Start: 02-28-2020 End: 01-21-2021 Insulin Syringe-Needle U-100 (Bd Insulin Syringe Ultra-Fine) 0.5 mL 31 gauge x 5/16 syringe Start: 01-21-2021 End: 06-02-2022 Lancets (Easy To uch Lancets) 28 gauge misc Start: 05-06-2019 End: 02-27-2020 Lancets (Onetouc h Delica Plus Lancet) 33 gauge misc Start: 06-29-2020 End: 08-11-2021 Lancets (Onetouc h Delica Plus Lancet) 33 gauge misc Start: 08-11-2021 End: 12-05-2022 Lancets (Onetouc h Delica Plus Lancet) 33 gauge misc Start: 12-05-2022 End: 02-22-2024 Pen Needle, Diab etic (Bd Ultra-Fine Shani Pen Needle) 32 gauge x 5/32 needle Start: 06-01-2022 End: 07-20-2023 Pen Needle, Diab etic (Bd Ultra-Fine Shani Pen Needle) 32 gauge x 5/32 needle Start: 07-20-2023 End: 08-09-2024 Blood Sugar Diagnostic (Blood Glucose Test) strip Start: 2024 Blood Sugar Diagnostic (Onetouch Verio Test Strips) strip Start: 07-11-2024 Insulin Syringe-Needle U-100 (Bd Insulin Syringe Ultra-Fine) 0.5 mL 31 gauge x 5/16 syringe Start: 06-02-2022 Insulin Syringe-Needle U-100 (Bd Insulin Syringe Ultra-Fine) 1 mL 31 gauge x 5/16 syringe Start: 08-31-2023 Insulin Syringe-Needle U-100 (Bd Insulin Syringe) 1 mL 25 gauge x 5/8 syringe Start: 05-24-2021 Lancets (Easy To uch Lancets) 28 gauge misc Start: 02-27-2020 Lancets (Onetouc h Delica Plus Lancet) 33 gauge misc Start: 02-22-2024 Pen Needle, Diab etic (Bd Ultra-Fine Shani Pen Needle) 32 gauge x 5/32 needle Start: 08-31-2023 Pen Needle, Diab etic 32 gauge x 5/32 needle Start: 08-09-2024 Blood Sugar Diagnostic (Blood Glucose Test) strip Start: 02-26-2019 End: 11-28-2019 Blood Sugar Diagnostic (Blood Glucose Test) strip Start: 11-28-2019 End: 08-14-2023 Blood Sugar Diagnostic (Blood Glucose Test) strip Start: 08-14-2023 End: 2024 Blood Sugar Diagnostic (Onetouch Verio Test Strips) strip Start: 06-29-2020 End: 08-11-2021 Blood Sugar Diagnostic (Onetouch Verio Test Strips) strip Start: 08-11-2021 End: 08-25-2022 Blood Sugar Diagnostic (Onetouch Verio Test Strips) strip Start: 08-25-2022 End: 07-11-2024 Insulin Syringe-Needle U-100 (Bd Insulin Syringe Ultra-Fine) 0.5 mL 31 gauge x 5/16 syringe Start: 02-26-2019 End: 02-28-2020 Insulin Syringe-Needle U-100 (Bd Insulin Syringe Ultra-Fine) 0.5 mL 31 gauge x 5/16 syringe Start: 02-28-2020 End: 01-21-2021 Insulin Syringe-Needle U-100 (Bd Insulin Syringe Ultra-Fine) 0.5 mL 31 gauge x 5/16 syringe Start: 01-21-2021 End: 06-02-2022 Lancets (Easy To uch Lancets) 28 gauge misc Start: 05-06-2019 End: 02-27-2020 Lancets (Onetouc h Delica Plus Lancet) 33 gauge misc Start: 06-29-2020 End: 08-11-2021 Lancets (Onetouc h Delica Plus Lancet) 33 gauge misc Start: 08-11-2021 End: 12-05-2022 Lancets (Onetouc h Delica Plus Lancet) 33 gauge misc Start: 12-05-2022 End: 02-22-2024 Pen Needle, Diab etic (Bd Ultra-Fine Shani Pen Needle) 32 gauge x 5/32 needle Start: 06-01-2022 End: 07-20-2023 Pen Needle, Diab etic (Bd Ultra-Fine Shani Pen Needle) 32 gauge x 5/32 needle Start: 07-20-2023 End: 08-09-2024 Blood Sugar Diagnostic (Blood Glucose Test) strip Start: 2024 Blood Sugar Diagnostic (Onetouch Verio Test Strips) strip Start: 07-11-2024 Insulin Syringe-Needle U-100 (Bd Insulin Syringe Ultra-Fine) 0.5 mL 31 gauge x 5/16 syringe Start: 06-02-2022 Insulin Syringe-Needle U-100 (Bd Insulin Syringe Ultra-Fine) 1 mL 31 gauge x 5/16 syringe Start: 08-31-2023 Insulin Syringe-Needle U-100 (Bd Insulin Syringe) 1 mL 25 gauge x 5/8 syringe Start: 05-24-2021 Lancets (Easy To uch Lancets) 28 gauge misc Start: 02-27-2020 Lancets (Onetouc h Delica Plus Lancet) 33 gauge misc Start: 02-22-2024 Pen Needle, Diab etic (Bd Ultra-Fine Shani Pen Needle) 32 gauge x 5/32 needle Start: 08-31-2023 Pen Needle, Diab etic 32 gauge x 5/32 needle Start: 08-09-2024 Blood Sugar Diagnostic (Blood Glucose Test) strip Start: 02-26-2019 End: 11-28-2019 Blood Sugar Diagnostic (Blood Glucose Test) strip Start: 11-28-2019 End: 08-14-2023 Blood Sugar Diagnostic (Blood Glucose Test) strip Start: 08-14-2023 End: 2024 Blood Sugar Diagnostic (Onetouch Verio Test Strips) strip Start: 06-29-2020 End: 08-11-2021 Blood Sugar Diagnostic (Onetouch Verio Test Strips) strip Start: 08-11-2021 End: 08-25-2022 Blood Sugar Diagnostic (Onetouch Verio Test Strips) strip Start: 08-25-2022 End: 07-11-2024 Insulin Syringe-Needle U-100 (Bd Insulin Syringe Ultra-Fine) 0.5 mL 31 gauge x 5/16 syringe Start: 02-26-2019 End: 02-28-2020 Insulin Syringe-Needle U-100 (Bd Insulin Syringe Ultra-Fine) 0.5 mL 31 gauge x 5/16 syringe Start: 02-28-2020 End: 01-21-2021 Insulin Syringe-Needle U-100 (Bd Insulin Syringe Ultra-Fine) 0.5 mL 31 gauge x 5/16 syringe Start: 01-21-2021 End: 06-02-2022 Lancets (Easy To uch Lancets) 28 gauge misc Start: 05-06-2019 End: 02-27-2020 Lancets (Onetouc h Delica Plus Lancet) 33 gauge misc Start: 06-29-2020 End: 08-11-2021 Lancets (Onetouc h Delica Plus Lancet) 33 gauge misc Start: 08-11-2021 End: 12-05-2022 Lancets (Onetouc h Delica Plus Lancet) 33 gauge misc Start: 12-05-2022 End: 02-22-2024 Pen Needle, Diab etic (Bd Ultra-Fine Shani Pen Needle) 32 gauge x 5/32 needle Start: 06-01-2022 End: 07-20-2023 Pen Needle, Diab etic (Bd Ultra-Fine Shani Pen Needle) 32 gauge x 5/32 needle Start: 07-20-2023 End: 08-09-2024 Goals Date Patient Goal Desired Activity /State Functional Status Date Assessment Result Facility 06-18-2024 Functional status Chair [facility] Work Phone: 02-10-2021 Functional status Ambulates [facility] Work Phone: Mental Status Date Assessment Result Facility 06-18-2024 Cognitive function Voice/Name [facility] Work Phone: 06-18-2024 Cognitive function Appropriate;Cooperativ e [facility] Work Phone: 06-14-2024 Cognitive function Level Of Cons ciousness Awake;Alert;Appropriate;Follow s Commands [facility] Work Phone: 07-10-2023 Cognitive function Level Of Cons ciousness Awake;Alert;Appropriate [facility] Work Phone: 11-21-2022 Cognitive function Sedated [facility] Work Phone: 07-19-2022 Cognitive function Voice/Name [facility] Work Phone: 03-16-2022 Cognitive function Voice/Name [facility] Work Phone: 02-10-2021 Cognitive function Voice/Name [facility] Work Phone: Clinical Notes 08-18-2021 to 09-24-2024 Lona Goldberg Tech - 09/24/2024 7:00 AM EDTTelephone Encounter - Katy Marsh RT(R) - 09/13/2024 2:14 PM EDTTelephone Encounter - Katy Marsh RT(R) - 09/13/2024 2:14 PM EDT Note Date & Type Note Facility 09-24-2024 History of Presen t illness Narrative Radiology Service Progress Note DATE OF SERVICE: September 24, 2024 TIME: 9:12 AM PATIENT IDENTITY VERIFICATION COMPLETED USING TWO (2) STANDARD IDENTIFIERS: Name and Date of confirmed by patient verbally and Name and Date of confirmed by identification band. FALL SCREENING: Has the patient had 2 falls in the last year or 1 fall with injury or currently using an Ambulatory Assistive Device (Walker, Cane, Wheelchair, Crutches, etc.)? No PATIENT GENDER DATA: Assigned male at PATIENT RELEVANT IMPLANT DATA REVIEWED: Not Applicable PATIENT PRESENTS WITH AN IMPLANTABLE OR ATTACHED SCALP SPECIALIST: No ALLERGIES: Reviewed and unchanged CONTRAST ALLERGY: NO. EXAM: MRI - CONTRAST TYPE: GROUP II PERIPHERAL IV DATA: Ambulatory: A peripheral IV was started in the Right hand with a Angio cath: 24 gauge. RADIOLOGY DEPARTMENT: MR; Exam(s) Completed: Cardiac: Cardiac. Aromatherapy Administered: No SIGNATURE: Sylwia Lucas PATIENT NAME: Christa Silverman DATE: September 24, 2024 TIME: 9:12 AM documented in this encounter [facility] 09-24-2024 Note HNO ID: [id number] Author: LONA GOLDBERG Tech Service: Radiology Author Type: Transit Department Clerk Type: Progress Notes Filed: 09/24/2024 09:12 Note Text: Radiology Service Progress Note DATE OF SERVICE: September 24, 2024 TIME: 9:12 AM PATIENT IDENTITY VERIFICATION COMPLETED USING TWO (2) STANDARD IDENTIFIERS: Name and Date of confirmed by patient verbally and Name and Date of confirmed by identification band. FALL SCREENING: Has the patient had 2 falls in the last year or 1 fall with injury or currently using an Ambulatory Assistive Device (Walker, Cane, Wheelchair, Crutches, etc.)? No PATIENT GENDER DATA: Assigned male at PATIENT RELEVANT IMPLANT DATA REVIEWED: Not Applicable PATIENT PRESENTS WITH AN IMPLANTABLE OR ATTACHED SCALP SPECIALIST: No ALLERGIES: Reviewed and unchanged CONTRAST ALLERGY: NO. EXAM: MRI - CONTRAST TYPE: GROUP II PERIPHERAL IV DATA: Ambulatory: A peripheral IV was started in the Right hand with a Angio cath: 24 gauge. RADIOLOGY DEPARTMENT: MR; Exam(s) Completed: Cardiac: Cardiac. Aromatherapy Administered: No SIGNATURE: Sylwia Lucas PATIENT NAME: Christa Silverman DATE: September 24, 2024 TIME: 9:12 AM [facility] 09-13-2024 Telephone encount er Note Please provide protocol for this patients CMR scheduled for 09/24/2024, thank you! [facility] 09-13-2024 Miscellaneous Notes Formattin g of this note might be different from the original. Please provide protocol for this patients CMR scheduled for 09/24/2024, thank you! documented in this encounter [facility] 07-10-2024 Evaluation note Diagnosis Onset Date Resolution Cardiomyopathy chronic June 1:01pm Coronary artery disease chronic A pril 2024 1:01pm Diabetes chronic July 10 1:01pm Dyslipidemia chronic July 10, 2024 1:01pm Left ventricular systolic dysfunction (LVSD) chronic July 10, 025 1:01pm Morbid obesity with BMI of 70 and over, adult chronic June 1:01pm SONIA (obstructive sleep apnea) chronic July 10, 2024 1:01pm Chronic kidney disease chronic Ma 2024 9:43am Diabetes chronic July 11, 2024 9:43am Essential (primary) hypertension chronic July 11, 2024 9:43am Hypothyroidism chronic July 11 025 9:43am Microalbuminuria chronic July 11, 2024 9:43am Obesity chronic July 11, 2024 9:43am Granulomatous lung disease acute July 23, 2024 11:12am Hypoxemia acute July 23, 2024 11:12am Lung nodule seen on imaging study acute July 23, 2024 11:12am Obesity chronic July 23, 2024 11:12am SONIA (obstructive sleep apnea) chronic July 23, 2024 11:12am Shortness of breath chronic July 112024 11:12am Granulomatous lung disease acute August 07, 2024 8:45am Hypoxemia acute August 07, 2024 8:45am Lung nodule seen on imaging study acute August 07, 2024 8:45am Obesity chronic August 07, 2024 8:45am SONIA (obstructive sleep apnea) chronic August 07, 2024 8:45am Shortness of breath chronic July 122024 8:45am Constipation acute Stella 12th, 2 025 10:29am Diabetes chronic August 22 10:29am ARGUETA (nonalcoholic steatohepatitis) chronic August 22, 2024 10:29am Granulomatous lung disease acute September 11, 2024 10:23am Hypoxemia acute September 11, 2024 10:23am Lung nodule seen on imaging study acute September 11, 2024 10:23am Obesity chronic September 11, 2024 10:23am SONIA (obstructive sleep apnea) chronic September 11, 2024 10:23am Shortness of breath chronic September 11, 2024 10:23am Chest pain acute October 11 1:01pm Cardiomyopathy chronic October 1:01pm Coronary artery disease chronic A ugust 2024 1:01pm Diabetes chronic October 11 1:01pm Dyslipidemia chronic October 11, 2024 1:01pm Left ventricular systolic dysfunction (LVSD) chronic October 11 1:01pm Morbid obesity with BMI of 70 and over, adult chronic October 1:01pm SONIA (obstructive sleep apnea) chronic October 11, 2024 1:01pm Asthma acute October 15 11:14am Granulomatous lung disease acute October 15, 2024 11:14am Hypoxemia acute October 15 11:14am Lung nodule seen on imaging study acute October 15, 2024 11:14am Obesity chronic October 15 11:14am SONIA (obstructive sleep apnea) chronic October 15, 2024 11:14am Shortness of breath chronic Aug t 2024 11:14am [facility] Work Phone: [phone]) 867-995504-08-2025 Consult note [facility] Medical Records Department [address] [place] [address] Counseling Note - Pharmacy 06/18/24 1547 MR#: [id number] Acct: [id number] Name: CHRISTA SILVERMAN Rep #:[id number] 5 : 1975 49 From: Martínez Spencer PCP: ANAM Caputo, [employer] Statu s:ADM IN Y Location: [facility] [id number] Pharmacy [facility] has performed discharge medication reconciliation and counseling for this patient. The patient's discharge medication list was reviewed for discrepancies and discrepancies were resolved. The patient was counseled on the following discharge medications and changes in medications for homegoing were reviewed. The Reason for Use, instructions for use, and potential side effects were reviewed for all new medications. The patient's questions regarding all of their medications were answered. 1. Prednisone 40 PO daily The patient was able to verbally demonstrate an understanding of their dischargemedications. Medications at Discharge Home Medications aspirin 81 mg chewable tablet 81 mg PO DAILY@0800 heart health 08/11/16 magnesium oxide 250 mg PO BID supplement 04/16/18 lancets 28 gauge (Easy Touch Lancets) #100 ea 02/27/20 OneTouch Verio Flex meter (blood-glucose meter) #1 ea 06/29/20 atorvastatin 20 mg tablet 20 mg PO QHS cholestoral 12/21/20 BD Insulin Syringe 1 mL 25 gauge x 5/8 (insulin syringe-needle U-100) #100 ea 05/24/21 insulin syringe-needle U-100 0.5 mL 31 gauge x 5/16 (BD Insulin Syringe Ultra- Fine) #100 ea 06/02/22 OneTouch Verio test strips (blood sugar diagnostic) #100 ea 08/25/22 scopolamine base 1 mg over 3 days transdermal patch 1 patch transdermal Q72H PRNnausea and [id number]/16/23 pen needle, diabetic 32 gauge x 5/32 (BD Ultra-Fine Shani Pen Needle) #100 ea 07/20/23 insulin syringe-needle U-100 1 mL 31 gauge x 5/16 (BD Insulin Syringe Ultra- Fine) #100 ea 08/31/23 pen needle, diabetic 32 gauge x 5/32 (BD Ultra-Fine Shani Pen Needle) #50 ea 08/31/23 ursodiol 300 mg capsule 300 mg PO BID #60 caps 01/04/24 nebulizer tubing kits #1 ea 02/05/24 neublizer machine #1 ea 02/05/24 lancets 33 gauge (OneTouch Delica Plus Lancet) #100 ea 02/22/24 albuterol sulfate 2.5 mg/3 mL (0.083 %) solution for nebulization 2.5 mg (3 mL) inhalation Q4-6H PRN shortness of breath or wheezing #180 mL 03/15/24 levothyroxine 175 mcg tablet 175 mcg PO DAILY #30 tabs 04/02/24 cholecalciferol (vitamin D3) 25 mcg (1,000 unit) capsule (Vitamin D3) 2,000 unitPO DAILY 04/30/24 fluticasone furoate 200 mcg/actuation blister powder for inhalation (Arnuity Ellipta) 1 inh inhalation Q24H #30 ea 04/30/24 tirzepatide 10 mg/0.5 mL subcutaneous pen injector (Mounjaro) 10 mg subcut QWEEK04/30/24 dapagliflozin propanediol 10 mg tablet (Farxiga) 10 mg PO QDAY #90 tabs 05/07/24 metoprolol succinate 200 mg tablet,extended release 24 hr 200 mg PO QDAY #90 tabs 05/07/24 blood sugar diagnostic (Blood Glucose Test strips) #100 ea 06/12/24 insulin regular hum U-500 conc 500 unit/mL(3 mL) subcut pen (Humulin R U-500 (Conc) Insulin Kwikpen) See Rx Instructions .Route .COMPLEX #30 mL 06/18/24 prednisone 20 mg tablet 40 mg (2 x 20 mg) PO BREAKFAST 30 days #60 tabs 06/18/24 06/18/24 1548 r> Date _ Martínez Huffman Signature (if applicable): Date CC: ~ Signed [facility]04-08-2025 Discharge summary [facility] Medical Records Department [address] [place] [address] Instructions for Home/Discharge Instructions 06/18/24 1507 MR#: [id number] Acct: [id number] Name: CHRISTA SILVERMAN Rep #:[id number] 1 : 1975 49 From: Pastora Terry MD PCP: Jordana Baez, VSC, [employer] Statu s:ADM IN Discharge Instructions Diet Discharge Diet: - (Carbohydrate consistent, cardiac diet) DC O2, CPAP, BIPAP needs Home O2 Discharge instructions: No Dressing / Incision Discharge Activity: - (Increase activity as tolerated) Follow Up Care Test Results: Test results from this visit will be discussed in further detail at your follow- up appointment, if applicable. Discharge Plan Admission Admit Date/Time: 06/14/24 16:08 Primary Reason for Your Visit: High calcium and creatinine Attending Provider: Pastora Terry Primary Care Provider: Jordana Baez [facility] Consulting Providers: Madeleine Benoit; Grecia Marroquin; Hipolito Jackson; [place] Instructions Patient Instructions: Pulmonary Sarcoidosis Additional Instructions / Restrictions: DISCHARGE INSTRUCTIONS PLEASE READ *Please take this with you to your next doctors appointment* - Your insulin regimen upon discharge will be 70 units of your long-acting twicedaily -You will need to call your endocrinology office daily with your glucoses so youcan be monitored closely and your insulin adjusted as needed, please call the office tomorrow -You will be discharged on 40 mg of oral prednisone which you will take until you follow-up in the pulmonology office -Please follow-up with pulmonology upon discharge on 07/08. If there are any questions or concerns about your appointment please call their office -Please follow-up with nephrology upon discharge. Please call their office to schedule hospital follow-up appointment upon discharge. -Would recommend lab work (BMP) to check your kidney function and calcium in 3- 5days through your primary care physician's office. Please call their office upon discharge to obtain order for lab work. -Your lisinopril has been held given your kidney function, please do not resume this until talking to your primary care physician or snuff container inspector -Please call your primary care provider's office upon discharge to schedule a hospital follow up within 1 week. -For any concerning signs or symptoms please call 911 or proceed to the nearest emergency department Discharge Orders/Prescriptions Prescriptions: New prednisone 20 mg Tablet 40 mg PO BREAKFAST 30 Days Qty: 60 0RF Continued (DME) lancets [Easy Touch Lancets] 28 gauge misc See Rx Instructions .ROUTE .MEDSUPPLY Qty: 100 6RF Rx Instructions: 3 times daily atorvastatin 20 mg tablet 20 mg PO QHS Patient Comments: TAKE 1 TABLET BY MOUTH AT BEDTIME (DME) BD Insulin Syringe 1 mL 25 gauge x 5/8 syringe See Rx Instructions .ROUTE .MEDSUPPLY Qty: 100 6RF Rx Instructions: bid scopolamine base 1 mg over 3 days patch 3 day 1 patch transdermal Q72H PRN (Reason: nausea and vomiting) (DME) nebulizer tubing kits See Rx Instructions .ROUTE .MEDSUPPLY Qty: 1 0RF Rx Instructions: As directed (DME) neublizer machine See Rx Instructions .ROUTE .MEDSUPPLY Qty: 1 0RF Rx Instructions: As directed Mounjaro 10 mg/0.5 mL pen injector 10 mg subcut QWEEK Arnuity Ellipta 200 mcg/actuation blister with device 1 inh inhalation Q24H Qty: 30 5RF metoprolol succinate 200 mg tablet extended release 24 hr 200 mg PO QDAY Qty: 90 3RF dapagliflozin propanediol [Farxiga] 10 mg tablet 10 mg PO QDAY Qty: 90 3RF aspirin 81 MG tablet,chewable 81 mg PO DAILY@0800 magnesium oxide 250 MG tablet 250 mg PO BID cholecalciferol (vitamin D3) [Vitamin D3] 25 mcg (1,000 unit) capsule 2,000 unit PO DAILY (DME) blood-glucose meter [OneTouch Verio Flex meter] [facility] See Rx Instructions .ROUTE .MEDSUPPLY Qty: 1 0RF Rx Instructions: As directed (DME) insulin syringe-needle U-100 [BD Insulin Syringe Ultra-Fine] 0.5 mL 31 gauge x 5/16 syringe See Rx Instructions .ROUTE .MEDSUPPLY Qty: 100 6RF Rx Instructions: twice daily (DME) OneTouch Verio test strips Strip See Rx Instructions .ROUTE .MEDSUPPLY Qty: 100 8RF Rx Instructions: tid (DME) pen needle, diabetic [BD Ultra-Fine Shani Pen Needle] 32 gauge x 5/32 needle See Rx Instructions .Route Qty: 100 5RF Rx Instructions: BID (DME) insulin syringe-needle U-100 [BD Insulin Syringe Ultra-Fine] 1 mL 31 gauge x 5/16 syringe See Rx Instructions .Route Qty: 100 4RF Rx Instructions: As directed (DME) pen needle, diabetic [BD Ultra-Fine Shani Pen Needle] 32 gauge x 5/32 needle See Rx Instructions .ROUTE .MEDSUPPLY Qty: 50 5RF Rx Instructions: As directed ursodiol 300 mg capsule 300 mg PO BID Qty: 60 9RF (DME) lancets [OneTouch Delica Plus Lancet] 33 gauge misc See Rx Instructions .ROUTE .MEDSUPPLY Qty: 100 8RF Rx Instructions: tid albuterol sulfate 2.5 mg /3 mL (0.083 %) solution for nebulization 2.5 mg inhalation Q4-6H PRN (Reason: shortness of breath or wheezing) Qty: 180 3RF levothyroxine 175 mcg tablet 175 mcg PO DAILY Qty: 30 5RF (DME) Blood Glucose Test Strip See Rx Instructions .ROUTE .MEDSUPPLY Qty: 100 6RF Rx Instructions: test 3 times daily Changed Humulin R U-500 (Conc) Kwikpen 500 unit/mL (3 mL) insulin pen See Rx Instructions .ROUTE .COMPLEX Qty: 30 0RF Rx Instructions: 70 am 70 pm subcutaneously twice a day; Discontinued gabapentin 300 mg capsule 300 mg PO TID PRN (Reason: neuropathy) Qty: 90 0RF lisinopril 20 mg tablet 20 mg PO QDAY Referrals / Follow Up: [place] DO [Med Staff - Active Staff] - (Please follow with pulmonology on07/08/2024, if there are any questions about your appointment please contact their office) Madeleine Benoit MD [Med Staff - Consulting] - ( -Please follow-up with nephrology upon discharge. Please call their office to schedule hospital follow-up appointment upon discharge.) Jordana Baez, [employer] [Primary Care Provider] - Within 1 Week Disposition Disposition (needs filled in before D/C Order can be placed): Home, Self Care 06/18/24 1511Pwendy Terry MD CC: [facility] [employer] Jordana Baez; Dr. Hipolito Jackson MD; Dr. [place] DO; Dr. Madeleine Benoit MD; Dr. Grecia Marroquin MD ~ Signed [facility]04-08-[address] [facility] Progress note Author Madeleine Benoit [facility] Note Date/Time June 18, 2024 12:2 0pm [facility] Medical Records Department [address] [place] [address] Progress Note - Nephrology 06/18/24 1219 MR#: [id number] Acct: [id number] Name: CHRISTA SILVERMAN Rep #:[id number] 5 : 1975 49 From: Madeleine pichardo MD PCP: ANAM Caputo, [employer] Statu s:ADM IN Location: [place] [address] Subjective Subjective no new events Objective Data Objective Data Vital Signs: Vital Signs Temp Pulse Resp BP Pulse Ox O2 Del Method 97.5 F L 83 16 156/83 H 97 Room Air 06/18/24 08:56 06/18/24 08:56 06/18/24 08:56 06/18/24 08:28 06/18/24 08:56 06/18/24 09:16 Oxygen Delivery Method Room Air Weight: 226 kg Body Mass Index (BMI) 71.3 Intake & Output: Intake and Output for Last 24 Hours 06/16/24 06/17/24 06/18/24 23:59 23:59 23:59 Intake Total 3835.42 / 3835.42 2371.25 / 2611.25 240 / 240 Output Total 3200 / 3200 650 / 650 Balance 635.42 / 635.42 1721.25 / 1961.25 240 / 240 Lab / Micro Data 06/18/24 04:05 06/18/24 04:05 Labs: Laboratory Results - last 24 hr 06/17/24 16:15: POC Glucose 243 H 06/17/24 21:11: POC Glucose 236 H 06/18/24 04:05: WBC 4.2 L, RBC 3.51 L, Hgb 11.6 L, Hct 32.3 L, MCV 92.0, MCH 33.0 H, MCHC 35.9, RDW Std Deviation 53.3 H, RDW Coeff of Syed 15.9 H, Plt Count 114 L, MPV 9.2, Immature Gran % (Auto) 0.700, Neut % (Auto) 77.6 H, Lymph % (Auto) 12.2 L, [place] % (Auto) 9.1, Eos % (Auto) 0.2, Baso % (Auto) 0.2, Absolute Neuts (auto) 3.3, Absolute Lymphs (auto) 0.51 L, Nucleated RBC % 0, Sodium 131 L, Potassium 4.3, Chloride 103, Carbon Dioxide 14.2 L, Anion Gap 13, BUN 38 H, Creatinine 2.36 H, Estim Creat Clear Calc 71.08, Est GFR (MDRD) Non-Af 33 L, BUN/Creatinine Ratio 16.2, Glucose 144 H, Calcium 10.4 06/18/24 06:06: POC Glucose 136 H 06/18/24 11:17: POC Glucose 167 H Physical Exam Narrative Alert awake oriented x 3 no obvious distress S1, S2, RRR Lungs clear Abdomen soft, rounded, nontender No edema Assessment & Plan Assessment/Plan (1) ARSEN (acute kidney injury): PLAN: CKD stage IIIa, baseline creatinine is around 1.7 or so. Acute renal failure likely related to hypercalcemia. cr better (2) Hypercalcemia: PLAN: Hypercalcemia. This is new onset. Calcium 14 on admission and today 10.7. Patient again today states he does not take any calcium supplements. Patient received pamidronate. He is currently on IV fluids. SPEP April 2024negative: No monoclonality detected, no M spike. Concern for sarcoidosis. Seenby pulmonology. Patient is now on prednisone 40 mg daily and to be discharged home on prednisone with follow-up with pulmonary on July 08. Vitamin D 25-hydroxy low at 21.5. Vitamin D 1,25 pending, SEB level pending. Okay for discharge from renal standpoint. Patient will have follow-up in the office 06/18/24 1220 <Electronically signed by Madeleine Benoit MD> Cosigner Signature (if applicable): CC: ~ Signed [facility] Work Phone: [phone] Progress note Author Nikki Borges [facility] Note Date/Time June 18, 2024 11:0 0am [facility] [facility] Medical Records Department [address] [place] [address] Progress Note - Nephrology 06/17/24 1211 MR#: [id number] Acct: [id number] Name: CHRISTA SILVERMAN Rep #:[id number] : 1975 49 From: Nikki CURTISC PCP: ANAM Caputo, GUSTAVO Statu s:ADM IN [place] [facility] [id number] Subjective Subjective Resting in bed. No overnight events. Denies any complaints. Denies any nausea, vomiting and states he is urinating. Objective Data Objective Data Vital Signs: Vital Signs Temp Pulse Resp BP Pulse Ox O2 Del Method 98.7 F 83 18 125/65 H 97 Room Air 06/17/24 09:01 06/17/24 11:00 06/17/24 09:01 06/17/24 09:01 06/17/24 09:01 06/17/24 09:04 Oxygen Delivery Method Room Air Weight: 226 kg Body Mass Index (BMI) 71.3 Intake & Output: Intake and Output for Last 24 Hours 06/15/24 06/16/24 06/17/24 23:59 23:59 23:59 Intake Total 3335.42 / 3335.42 3835.42 / 3835.42 2056.67 / 2056.67 Output Total 3300 / 3300 3200 / 3200 650 / 650 Balance 35.42 / 35.42 635.42 / 635.42 1406.67 / 1406.67 Lab / Micro Data 06/17/24 04:55 06/17/24 04:55 Labs: Laboratory Results - last 24 hr 06/16/24 17:23: POC Glucose 189 H 06/16/24 20:59: POC Glucose 233 H 06/17/24 04:55: WBC 3.7 L, RBC 3.70 L, Hgb 12.0 L, Hct 34.8 L, MCV 94.1 H, MCH 32.4 H, MCHC 34.5, RDW Std Deviation 55.9 H, RDW Coeff of Syed 16.2 H, Plt Count 106 L, MPV 9.1, Immature Gran % (Auto) 0.300, Neut % (Auto) 66.4, Lymph % (Auto)18.3 L, Hanover % (Auto) 10.2 H, Eos % (Auto) 4.3, Baso % (Auto) 0.5, Absolute Neuts (auto) 2.5, Absolute Lymphs (auto) 0.68 L, Nucleated RBC % 0, Sodium 133, Potassium 4.5, Chloride 104, Carbon Dioxide 18.1 L, Anion Gap 11, BUN 33 H, Creatinine 2.61 H, Estim Creat Clear Calc 64.27, Est GFR (MDRD) Non-Af 29 L, BUN/Creatinine Ratio 12.6, Glucose 145 H, Calcium 10.7 06/17/24 05:32: POC Glucose 138 H 06/17/24 11:13: POC Glucose 166 H Physical Exam Narrative Alert awake oriented x 3 no obvious distress S1, S2, RRR Lungs clear Abdomen soft, rounded, nontender No edema Assessment & Plan Assessment/Plan (1) ARSEN (acute kidney injury): PLAN: CKD stage IIIa, baseline creatinine is around 1.7 or so. Acute renal failure likely related to hypercalcemia. Serum creatinine 3.3 (this was peak) on admission and today creatinine is 2.61. Patient is nonoliguric. Bps acceptable. (2) Hypercalcemia: PLAN: Hypercalcemia. This is new onset. Calcium 14 on admission and today 10.7. Patient again today states he does not take any calcium supplements. Patient received pamidronate. He is currently on IV fluids. SPEP April 2024negative: No monoclonality detected, no M spike. Concern for sarcoidosis. Seenby pulmonology. Patient is now on prednisone 40 mg daily and to be discharged home on prednisone with follow-up with pulmonary on July 08. Vitamin D 25-hydroxy low at 21.5. Vitamin D 1,25 pending, SEB level pending. Okay for discharge from renal standpoint. Patient will have follow-up in the office withDr. Benoit. Nephrology plan reviewed with Dr. Terry. Assessment and plan reviewed with Dr. Benoit. 06/17/24 1221 <Electronically signed by Nikki CHEN> Cosigner Signature (if applicable): 06/18/24 1100 <Electronically signed by Madeleine Benoit MD> CC: ~ Signed [facility] Work Phone: 1(489) 184-911104-08-2025 Progress note [facility] Medical Records Department [address] [place] [address] Progress Note - Nephrology 06/18/24 1219 MR#: [id number] Acct: [id number] Name: CHRISTA SILVERMAN Rep #:[id number] : 1975 49 From: Madeleine pichardo MD PCP: ANAM Caputo, [employer] Statu s:ADM IN Location: [facility] [place] IP408-2 Subjective Subjective no new events Objective Data Objective Data Vital Signs: Vital Signs Temp Pulse Resp BP Pulse Ox O2 Del Method 97.5 F L 83 16 156/83 H 97 Room Air 06/18/24 08:56 06/18/24 08:56 06/18/24 08:56 06/18/24 08:28 06/18/24 08:56 06/18/24 09:16 Oxygen Delivery Method Room Air Weight: 226 kg Body Mass Index (BMI) 71.3 Intake & Output: Intake and Output for Last 24 Hours 06/16/24 06/17/24 06/18/24 23:59 23:59 23:59 Intake Total 3835.42 / 3835.42 2371.25 / 2611.25 240 / 240 Output Total 3200 / 3200 650 / 650 Balance 635.42 / 635.42 1721.25 / 1961.25 240 / 240 Lab / Micro Data 06/18/24 04:05 06/18/24 04:05 Labs: Laboratory Results - last 24 hr 06/17/24 16:15: POC Glucose 243 H 06/17/24 21:11: POC Glucose 236 H 06/18/24 04:05: WBC 4.2 L, RBC 3.51 L, Hgb 11.6 L, Hct 32.3 L, MCV 92.0, MCH 33.0 H, MCHC 35.9, RDWStd Deviation 53.3 H, RDW Coeff of Syed 15.9 H, Plt Count 114 L, MPV 9.2, Immature Gran % (Auto) 0.700, Neut % (Auto) 77.6 H, Lymph % (Auto) 12.2 L, Hanover % (Auto) 9.1, Eos % (Auto) 0.2, Baso % (Auto) 0.2, Absolute Neuts (auto) 3.3, Absolute Lymphs (auto) 0.51 L, Nucleated RBC % 0, Sodium 131 L, Potassium 4.3, Chloride 103, Carbon Dioxide 14.2 L, Anion Gap 13, BUN 38 H, Creatinine 2.36 H, Estim Creat Clear Calc 71.08, Est GFR (MDRD) Non-Af 33 L, BUN/Creatinine Ratio 16.2, Glucose 144 H, Calcium 10.4 06/18/24 06:06: POC Glucose 136 H 06/18/24 11:17: POC Glucose 167 H Physical Exam Narrative Alert awake oriented x 3 no obvious distress S1, S2, RRR Lungs clear Abdomen soft, rounded, nontender No edema Assessment & Plan Assessment/Plan (1) ARSEN (acute kidney injury): PLAN: CKD stage IIIa, baseline creatinine is around 1.7 or so. Acute renal failure likely related to hypercalcemia. cr better (2) Hypercalcemia: PLAN: Hypercalcemia. This is new onset. Calcium 14 on admission and today 10.7. Patient again todaystates he does not take any calcium supplements. Patient received pamidronate. He is currently on IV fluids. SPEP April 2024negative: No monoclonality detected, no M spike. Concern for sarcoidosis. Seenby pulmonology. Patient is now on prednisone 40 mg daily and to be discharged home on prednisone with follow-up with pulmonary on July 08. Vitamin D 25-hydroxy low at 21.5. Vitamin D 1,25 pending, SEB level pending. Okay for discharge from renal standpoint. Patient will have follow-up in the office 06/18/24 1220 Cosigner Signature (if applicable): CC: ~ Signed [facility]04-08-2025 Progress note [facility] Medical Records Department [address] [place] [address] Progress Note - Nephrology 06/17/24 1211 MR#: [id number] Acct: [id number] Name: CHRISTA SILVERMAN Rep #:[id number] 9 : 1975 49 From: Nikki ballesteros NP-C PCP: ANAM Caputo NP-C Statu s:ADM IN Location: [facility] [place] UB059-0 Subjective Subjective Resting in bed. No overnight events. Denies any complaints. Denies any nausea, vomiting and states he is urinating. Objective Data Objective Data Vital Signs: Vital Signs Temp Pulse Resp BP Pulse Ox O2 Del Method 98.7 F 83 18 125/65 H 97 Room Air 06/17/24 09:01 06/17/24 11:00 06/17/24 09:01 06/17/24 09:01 06/17/24 09:01 06/17/24 09:04 Oxygen Delivery Method Room Air Weight: 226 kg Body Mass Index (BMI) 71.3 Intake & Output: Intake and Output for Last 24 Hours 06/15/24 06/16/24 06/17/24 23:59 23:59 23:59 Intake Total 3335.42 / 3335.42 3835.42 / 3835.42 2056.67 / 2056.67 Output Total 3300 / 3300 3200 / 3200 650 / 650 Balance 35.42 / 35.42 635.42 / 635.42 1406.67 / 1406.67 Lab / Micro Data 06/17/24 04:55 06/17/24 04:55 Labs: Laboratory Results - last 24 hr 06/16/24 17:23: POC Glucose 189 H 06/16/24 20:59: POC Glucose 233 H 06/17/24 04:55: WBC 3.7 L, RBC 3.70 L, Hgb 12.0 L, Hct 34.8 L, MCV 94.1 H, MCH 32.4 H, MCHC 34.5, RDW Std Deviation 55.9 H, RDW Coeff of Syed 16.2 H, Plt Count 106 L, MPV 9.1, Immature Gran % (Auto) 0.300, Neut % (Auto) 66.4, Lymph % (Auto)18.3 L, Hanover % (Auto) 10.2 H, Eos % (Auto) 4.3, Baso % (Auto) 0.5, Absolute Neuts (auto) 2.5, Absolute Lymphs (auto) 0.68 L, Nucleated RBC % 0, Sodium 133, Potassium 4.5, Chloride 104, Carbon Dioxide 18.1 L, Anion Gap 11, BUN 33 H, Creatinine 2.61 H, Estim Creat Clear Calc 64.27, Est GFR (MDRD) Non-Af 29 L, BUN/Creatinine Ratio 12.6, Glucose 145 H, Calcium 10.7 06/17/24 05:32: POC Glucose 138 H 06/17/24 11:13: POC Glucose 166 H Physical Exam Narrative Alert awake oriented x 3 no obvious distress S1, S2, RRR Lungs clear Abdomen soft, rounded, nontender No edema Assessment & Plan Assessment/Plan (1) ARSEN (acute kidney injury): PLAN: CKD stage IIIa, baseline creatinine is around 1.7 or so. Acute renal failure likely related to hypercalcemia. Serum creatinine 3.3 (this was peak) on admission and today creatinine is 2.61. Patient is nonoliguric. Bps acceptable. (2) Hypercalcemia: PLAN: Hypercalcemia. This is new onset. Calcium 14 on admission and today 10.7. Patient again todaystates he does not take any calcium supplements. Patient received pamidronate. He is currently on IV fluids. SPEP April 2024negative: No monoclonality detected, no M spike. Concern for sarcoidosis. Seenby pulmonology. Patient is now on prednisone 40 mg daily and to be discharged home on prednisone with follow-up with pulmonary on July 08. Vitamin D 25-hydroxy low at 21.5. Vitamin D 1,25 pending, SEB level pending. Okay for discharge from renal standpoint. Patient will have follow-up in the office withDr. Benoit. Nephrology plan reviewed with Dr. Terry. Assessment and plan reviewed with Dr. Benoit. 06/17/24 1221 Cosigner Signature (if applicable): 06/18/24 1100 CC: ~ Signed [facility]04-07-2025 Progress note Author Pastora Terry [facility] Note Date/Time June 17, 2024 5:14 pm [facility] Medical Records Department [address] [place] [address] Progress Note - Hospitalist 06/17/24 0831 MR#: [id number] Acct: [id number] Name: CHRISTA SILVERMAN Rep #:[id number] : 1975 49 From: Pastora Terry MD PCP: ANAM Caputo, [employer]C Statu s:ADM IN [facility] [id number] Reason for Visit Reason for Visit: Diagnoses Hypercalcemia (06/14/24) Acute kidney failure, unspecified (06/14/24) Subjective Subjective Patient reports overall feeling fair, some chronic lower extremity edema, no increasing shortness of breath or abdominal pain at this time Objective Data Objective Data Vital Signs: Vital Signs Temp Pulse Resp BP Pulse Ox O2 Del Method 98.5 F 84 18 134/68 H 99 Room Air 06/17/24 02:22 06/17/24 02:22 06/17/24 02:22 06/17/24 02:22 06/17/24 02:22 06/17/24 02:22 Oxygen Delivery Method Room Air Weight: 226 kg Body Mass Index (BMI) 71.3 Intake & Output: Intake and Output for Last 24 Hours 06/15/24 06/16/24 06/17/24 23:59 23:59 23:59 Intake Total 3335.42 / 3335.42 3835.42 / 3835.42 816.67 / 816.67 Output Total 3300 / 3300 3200 / 3200 650 / 650 Balance 35.42 / 35.42 635.42 / 635.42 166.67 / 166.67 Lab / Micro Data 06/17/24 04:55 06/17/24 04:55 Labs: Laboratory Results - last 24 hr 06/16/24 08:15: WBC 4.0 L, RBC 3.70 L, Hgb 12.2 L, Hct 35.0 L, MCV 94.6 H, MCH 33.0 H, MCHC 34.9, RDW Std Deviation 56.7 H, RDW Coeff of Syed 16.5 H, Plt Count 111 L, MPV 9.1, Immature Gran % (Auto) 0.500, Neut % (Auto) 67.4, Lymph % (Auto)18.0 L, Hanover % (Auto) 9.8, Eos % (Auto) 3.8, Baso % (Auto) 0.5, Absolute Neuts (auto) 2.7, Absolute Lymphs (auto) 0.72 L, Nucleated RBC % 0, Sodium 133, Potassium 3.8, Chloride 105, Carbon Dioxide 16.8 L, Anion Gap 11, BUN 35 H, Creatinine 2.50 H, Estim Creat Clear Calc 67.10, Est GFR (MDRD) Non-Af 31 L, BUN/Creatinine Ratio 14.1, Glucose 92, Calcium 11.1 H, Phosphorus 3.1, Magnesium1.8 06/16/24 11:01: POC Glucose 105 06/16/24 17:23: POC Glucose 189 H 06/16/24 20:59: POC Glucose 233 H 06/17/24 04:55: WBC 3.7 L, RBC 3.70 L, Hgb 12.0 L, Hct 34.8 L, MCV 94.1 H, MCH 32.4 H, MCHC 34.5, RDW Std Deviation 55.9 H, RDW Coeff of Syed 16.2 H, Plt Count 106 L, MPV 9.1, Immature Gran % (Auto) 0.300, Neut % (Auto) 66.4, Lymph % (Auto)18.3 L, Hanover % (Auto) 10.2 H, Eos % (Auto) 4.3, Baso % (Auto) 0.5, Absolute Neuts (auto) 2.5, Absolute Lymphs (auto) 0.68 L, Nucleated RBC % 0, Sodium 133, Potassium 4.5, Chloride 104, Carbon Dioxide 18.1 L, Anion Gap 11, BUN 33 H, Creatinine 2.61 H, Estim Creat Clear Calc 64.27, Est GFR (MDRD) Non-Af 29 L, BUN/Creatinine Ratio 12.6, Glucose 145 H, Calcium 10.7 06/17/24 05:32: POC Glucose 138 H Physical Exam Narrative General: Alert, oriented, no apparent distress HEENT: Atraumatic, normocephalic Eyes: Anicteric, normal conjunctiva, extraocular movements grossly intact Neck: Supple Respiratory: Clear to auscultation bilaterally, normal respiratory effort Cardiovascular: Regular rate and rhythm GI: Soft, nontender, nondistended Extremities: No pitting edema Musculoskeletal: Moving all extremities Neuro: No overt focal neurological deficits Skin: No rashes appreciated Psych: Cooperative Assessment & Plan Assessment/Plan (1) Hypercalcemia: (2) Hyperglycemia due to diabetes mellitus: (3) Granulomatous lung disease: PLAN: Plan #Arsen on CKD IIIb - Patient's baseline creatinine around 1.6 on admission was 3.3 - CT abdomen pelvis obtained this admission with no renal stones or hydronephrosis - Kidney function improved with IV fluids down to 2.5 however today slightly up at 2.61 - Nephrology following # Hypercalcemia - Reportedly had outpatient serum electrophoresis which was negative - Calcium of 14 on presentation and patient given IV fluids and pamidronate - Calcium 10.7 today - Reportedly had an outpatient liver biopsy which showed noncaseating granuloma,?sarcoidosis - Nephrology recommended pulmonology consult -Discussed with pulmonology and there is concern that this is sarcoidosis - Recommendation is that patient be put on 40 mg of p.o. prednisone but is recommended to discuss with patient's anaesthetic technician prior to initiating steroid therapy given patient's high insulin requirements and wide vacillations and glucose - Did discuss with patient's anaesthetic technician and she recommended monitoring patient for 24 to 36 hours to verify glucoses are within reason for discharge given his high risk of significant fluctuations in poor control, discussed this with patient who verbalizes understanding. Did discuss that he actually required holding his U- 500 the past 2 mornings and adjustments to the evening dose, is advised that this is likely due to change in diet, so likely had increased requirements with addition of steroids and once patient is discharged and adjusts his diet. Is recommended that on discharge patient call the office with his last 4 blood sugars and that he called daily initially so this can be very closely monitored #Type 2 diabetes mellitus -Glucose checks and sliding scale insulin - Patient on 65 units of U-500 in the morning and 185 with dinner however yesterday a.m. was held and dinner dose was decreased - Patient placed on steroids, discussion with endocrinology as above # LVSD - Echocardiogram 45% and stage I diastolic dysfunction with mild to moderate RV systolic dysfunction - Patient follows with cardiology on an outpatient basis, patient to have cardiac MRI on an outpatient basis #Hypothyroidism -Continue Synthroid #SONIA -Continue home NIPPV if applicable #Morbid obesity -BMI documented as 71.5 kg/m? at time of admission -Complicates treatment, prognosis, outcomes -Recommend weight loss and lifestyle changes # History of cirrhosis -Follows on an outpatient basis with GI -Can continue to follow on discharge #DVT ppx: Heparin subcu Pastora Terry MD Charges/Coding Visit Charges Inpatient E&M: 43619 Subs Hosp L2 06/17/24 1714 <Electronically signed by Pastora Terry MD> Cosigner Signature (if applicable): CC: ~ Signed [facility] Work Phone: [phone]) 498-540404-07-2025 Progress note [facility] Medical Records Department [address] [place] [address] Progress Note - Hospitalist 06/17/24 0831 MR#: [id number] Acct: [id number] Name: CHRISTA SILVERMAN Rep #:[id number] : 1975 49 From: Pastora Terry MD PCP: ANAM Caputo, [employer] Statu s:ADM IN Location: [place] [address] Reason for Visit Reason for Visit: Diagnoses Hypercalcemia (06/14/24) Acute kidney failure, unspecified (06/14/24) Subjective Subjective Patient reports overall feeling fair, some chronic lower extremity edema, no increasing shortness of breath or abdominal pain at this time Objective Data Objective Data Vital Signs: Vital Signs Temp Pulse Resp BP Pulse Ox O2 Del Method 98.5 F 84 18 134/68 H 99 Room Air 06/17/24 02:22 06/17/24 02:22 06/17/24 02:22 06/17/24 02:22 06/17/24 02:22 06/17/24 02:22 Oxygen Delivery Method Room Air Weight: 226 kg Body Mass Index (BMI) 71.3 Intake & Output: Intake and Output for Last 24 Hours 06/15/24 06/16/24 06/17/24 23:59 23:59 23:59 Intake Total 3335.42 / 3335.42 3835.42 / 3835.42 816.67 / 816.67 Output Total 3300 / 3300 3200 / 3200 650 / 650 Balance 35.42 / 35.42 635.42 / 635.42 166.67 / 166.67 Lab / Micro Data 06/17/24 04:55 06/17/24 04:55 Labs: Laboratory Results - last 24 hr 06/16/24 08:15: WBC 4.0 L, RBC 3.70 L, Hgb 12.2 L, Hct 35.0 L, MCV 94.6 H, MCH 33.0 H, MCHC 34.9, RDW Std Deviation 56.7 H, RDW Coeff of Syed 16.5 H, Plt Count 111 L, MPV 9.1, Immature Gran % (Auto) 0.500, Neut % (Auto) 67.4, Lymph % (Auto)18.0 L, Hanover % (Auto) 9.8, Eos % (Auto) 3.8, Baso % (Auto) 0.5, Absolute Neuts (auto) 2.7, Absolute Lymphs (auto) 0.72 L, Nucleated RBC % 0, Sodium 133, Potassium 3.8, Chloride 105, Carbon Dioxide 16.8 L, Anion Gap 11, BUN 35 H, Creatinine 2.50 H, Estim Creat Clear Calc 67.10, Est GFR (MDRD) Non-Af 31 L, BUN/Creatinine Ratio 14.1, Glucose 92, Calcium 11.1 H,Phosphorus 3.1, Magnesium1.8 06/16/24 11:01: POC Glucose 105 04/06/25 17:23: POC Glucose 189 H 06/16/24 20:59: POC Glucose 233 H 06/17/24 04:55: WBC 3.7 L, RBC 3.70 L, Hgb 12.0 L, Hct 34.8 L, MCV 94.1 H, MCH 32.4 H, MCHC 34.5, RDW Std Deviation 55.9 H, RDW Coeff of Syed 16.2 H, Plt Count 106 L, MPV 9.1, Immature Gran % (Auto) 0.300, Neut % (Auto) 66.4, Lymph % (Auto)18.3 L, Hanover % (Auto) 10.2 H, Eos % (Auto) 4.3, Baso % (Auto) 0.5, Absolute Neuts (auto) 2.5, Absolute Lymphs (auto) 0.68 L, Nucleated RBC % 0, Sodium 133, Potassium 4.5, Chloride 104, Carbon Dioxide 18.1 L, Anion Gap 11, BUN 33 H, Creatinine 2.61 H, Estim Creat Clear Calc 64.27, Est GFR (MDRD) Non-Af 29 L, BUN/Creatinine Ratio 12.6, Glucose 145 H, Calcium 10.7 06/17/24 05:32: POC Glucose 138 H Physical Exam Narrative General: Alert, oriented, no apparent distress HEENT: Atraumatic, normocephalic Eyes: Anicteric, normal conjunctiva, extraocular movements grossly intact Neck: Supple Respiratory: Clear to auscultation bilaterally, normal respiratory effort Cardiovascular: Regular rate and rhythm GI: Soft, nontender, nondistended Extremities: No pitting edema Musculoskeletal: Moving all extremities Neuro: No overt focal neurological deficits Skin: No rashes appreciated Psych: Cooperative Assessment & Plan Assessment/Plan (1) Hypercalcemia: (2) Hyperglycemia due to diabetes mellitus: (3) Granulomatous lung disease: PLAN: Plan #Arsen on CKD IIIb - Patient's baseline creatinine around 1.6 on admission was 3.3 - CT abdomen pelvis obtained this admission with no renal stones or hydronephrosis - Kidney function improved with IV fluids down to 2.5 however today slightly up at 2.61 - Nephrology following # Hypercalcemia - Reportedly had outpatient serum electrophoresis which was negative - Calcium of 14 on presentation and patient given IV fluids and pamidronate - Calcium 10.7 today - Reportedly had an outpatient liver biopsy which showed noncaseating granuloma,?sarcoidosis - Nephrology recommended pulmonology consult -Discussed with pulmonology and there is concern that this is sarcoidosis - Recommendation is that patient be put on 40 mg of p.o. prednisone but is recommended to discuss with patient's anaesthetic technician prior to initiating steroid therapy given patient's high insulin requirements and wide vacillations and glucose - Did discuss with patient's anaesthetic technician and she recommended monitoring patient for 24 to 36 hours to verify glucoses are within reason for discharge given his high risk of significant fluctuations in poor control, discussed this with patient who verbalizes understanding. Did discuss that he actually required holding his U-500 the past 2 mornings and adjustments to the evening dose, is advised that this is likely due to change in diet, so likely had increased requirements with addition of steroids and once patient is discharged and adjusts his diet. Is recommended that on discharge patient call the office with his last 4 blood sugars and that he called daily initially so this can be very closely monitored #Type 2 diabetes mellitus -Glucose checks and sliding scale insulin - Patient on 65 units of U-500 in the morning and 185 with dinner however yesterday a.m. was held and dinner dose was decreased - Patient placed on steroids, discussion with endocrinology as above # LVSD - Echocardiogram 45% and stage I diastolic dysfunction with mild to moderate RV systolic dysfunction - Patient follows with cardiology on an outpatient basis, patient to have cardiac MRI on an outpatient basis #Hypothyroidism -Continue Synthroid #SONIA -Continue home NIPPV if applicable #Morbid obesity -BMI documented as 71.5 kg/m? at time of admission -Complicates treatment, prognosis, outcomes -Recommend weight loss and lifestyle changes # History of cirrhosis -Follows on an outpatient basis with GI -Can continue to follow on discharge #DVT ppx: Heparin subcu Pastora Terry MD Charges/Coding Visit Charges Inpatient E&M: 12644 Subs Hosp L2 06/17/24 1714 Cosigner Signature (if applicable): CC: ~ Signed [facility]04-07-2025 Consult note Author [place] [facility] Note Date/Time June 17, 2024 10:2 3am [facility] Medical Records Department [address] [place] [address] Consultation - Electric Meter Inspector 06/17/24 1010 MR#: [id number] Acct: [id number] Name: CHRISTA SILVERMAN Rep #:[id number] : 1975 49 From: [place] DO PCP: Jordana Baez Damion, [employer]C Statu s:ADM IN Location: [facility] NO907-2 Assessment & Plan Assessment/Plan (1) Hypercalcemia: (2) Granulomatous lung disease: PLAN: Plan RECOMMENDATIONS: 1. I agree with initiating prednisone 40 mg daily, if okay with endocrinology from a diabetes perspective. 2. The patient should be maintained on this dose of prednisone until he is followed up in the pulmonary medicine clinic on 07/08. 3. Continue nocturnal PAP therapy per home regimen. IMPRESSIONS: 1. Acute kidney injury in the setting of hypercalcemia The patient's acute kidney injury has improved and his hypercalcemia has resolved with medical therapy. I do agree that the hypercalcemia may be secondary to granulomatous lung disease, as was noted on CT-guided lung biopsy from August 2023. Given that I suspect that the patient has sarcoidosis, will check serum SEB level. In the interim, I would recommend that the patient be started on prednisone 40 mg daily, if okay with his anaesthetic technician, due to his significant diabetes mellitus. I would recommend that he be maintained on 40 mgof prednisone daily until he can be followed up in the pulmonary medicine officeon July 08. If the patient is doing well at that time, we can begin to wean his corticosteroids cautiously. 2. Shortness of breath Suspect multifactorial etiology with underlying cardiomyopathy, super morbid obesity and sarcoidosis contributing. As noted above, recommend initiation of corticosteroid therapy at this time, with outpatient pulmonary follow-up, as scheduled. 3. Pulmonary nodularity Likely related to underlying granulomatous lung disease. 4. History of obstructive sleep apnea Continue nocturnal BiPAP therapy per home regimen. This note was generated with Mosaic dictation software. It may contain incorrectwords, spelling, and punctuation that were not noted in checking the note beforesigning. HPI Consult Data Date of Consult: 06/17/24 HPI Narrative Reason for Consultation: Sarcoidosis HPI Narrative: The patient is a 49-year-old male, with a history as outlined below, who presented to the emergency department on June 14 with worsening renal function noted on laboratory workup by his snuff container inspector, along with evidence of hypercalcemia. The patient is currently followed in the pulmonary medicine clinic. I last personally saw the patient in September 2021. He has a known historyof obstructive sleep apnea and is maintained on nocturnal BiPAP with a pressure support of 17/13 cm of water. He also has chronic shortness of breath which is multifactorial in etiology along with pulmonary nodularity, which has been managed with serial CT imaging. A CT-guided lung biopsy was actually completed in August 2023 in the right upper lobe with evidence of nonnecrotizing granulomas noted. It also appears that the patient had a liver biopsy completed in March2022, which also showed evidence of nonnecrotizing granuloma inflammation. On admission, the patient was noted to have a normal white blood cell count and evidence of chronic thrombocytopenia with a platelet count of 128,000. Chemistry profile was notable for a creatinine of 3.36, which was previously noted to be 1.65 in April 2024. Calcium was elevated at 14. The patient wasseen in consultation by nephrology. He has been medically managed with supplemental IV fluids with concern that his renal insufficiency may be secondary to hypercalcemia. With medical management, the patient's hypercalcemia has resolved. His renal function is also improving. [facility] Medical History History of chicken pox Chronic kidney disease Pneumonia History of steroid therapy History of renal disease Fatty liver Former smoker BiPAP (biphasic positive airway pressure) dependence Sleep apnea History of edema Elevated liver enzymes COVID-19 Vitamin D deficiency Thyroid disease Hyperlipidemia Hypertension Diabetes Home Medications ?Medication ?Instructions ?Recorded ?Last Taken ?Type aspirin 81 mg chewable tablet 81 mg PO DAILY@0800 hear t health 08/11/16 04/15/18 History magnesium oxide 250 mg PO BID supplement 06/2904/15/18 History lancets 28 gauge (Easy Touch #100 ea 02/27/20 Unknown Rx Lancets) OneTouch Verio Flex meter #1 ea 06/29/20 Unknown Rx (blood-glucose meter) atorvastatin 20 mg tablet 20 mg PO QHS cholestoral 01/31 Unknown History BD Insulin Syringe 1 mL 25 gauge x #100 ea 05/24/21 Un known Rx 5/8 (insulin syringe-needle U-100) insulin syringe-needle U-100 0.5 #100 ea 06/02/22 Unkn own Rx mL 31 gauge x 5/16 (BD Insulin Syringe Ultra-Fine) OneTouch Verio test strips (blood #100 ea 08/25/22 Unk nown Rx sugar diagnostic) scopolamine base 1 mg over 3 days 1 patch transdermal Q72H PRN 01/26/23 Unknown History transdermal patch nausea and vomiting gabapentin 300 mg capsule 300 mg PO TID PRN neuropathy #90 04/10/23 Unknown Rx caps pen needle, diabetic 32 gauge x #100 ea 07/20/23 Unkno wn Rx (BD Ultra-Fine Shani Pen Needle) insulin syringe-needle U-100 1 mL #100 ea 08/31/23 Unk nown Rx 31 gauge x 5/16 (BD Insulin Syringe Ultra-Fine) pen needle, diabetic 32 gauge x #50 ea 08/31/23 Unknow n Rx (BD Ultra-Fine Shani Pen Needle) ursodiol 300 mg capsule 300 mg PO BID #60 caps 01/03 Unknown Rx lisinopril 20 mg tablet 20 mg PO QDAY 01/15/24 Unkno wn History nebulizer tubing kits #1 ea 02/05/24 Unknown Rx neublizer machine #1 ea 02/05/24 Unknown Rx lancets 33 gauge (OneTouch Delica #100 ea 02/22/24 Unk nown Rx Plus Lancet) albuterol sulfate 2.5 mg/3 mL 2.5 mg (3 mL) inhalation Q4-6H PRN 03/15/24 Unknown Rx (0.083 %) solution for nebulization shortness of breat h or wheezing #180 mL levothyroxine 175 mcg tablet 175 mcg PO DAILY #30 tabs 04/02/24 Unknown Rx cholecalciferol (vitamin D3) 25 2,000 unit PO DAILY Unknown History mcg (1,000 unit) capsule (Vitamin D3) fluticasone furoate 200 1 inh inhalation Q24H #30 ea 04/30/24 Unknown Rx mcg/actuation blister powder for inhalation (Arnuity Ellipta) tirzepatide 10 mg/0.5 mL 10 mg subcut QWEEK 04/30/24 Unknown History subcutaneous pen injector (Vignesh) dapagliflozin propanediol 10 mg 10 mg PO QDAY #90 tabs 05/07/24 Unknown Rx tablet (Farxiga) metoprolol succinate 200 mg 200 mg PO QDAY #90 tabs Unknown Rx tablet,extended release 24 hr blood sugar diagnostic (Blood #100 ea 06/12/24 Unknown Rx Glucose Test strips) insulin regular hum U-500 conc 500 See Rx Instructions subcut BID 06/14/24 Unknown History unit/mL(3 mL) subcut pen (Humulin R U-500 (Conc) Insulin Kwikpen) Allergy/AdvReac Type Severity Reaction Status Date / Time wool AdvReac Severe Hives Verified 06/14/24 14:14 Family History Grandfather Family history of heart disease Family history of hypertension Hyperlipidemia Hypertension Diabetes Mother Family history of high cholesterol COPD (chronic obstructive pulmonary disease) Family history of hypertension in mother Grandfather Family history of high cholesterol Sleep apnea Aunt Family history of hypertension Sister Cancer Father , Diabetes Diabetes Hypertension Hyperlipidemia Surgical History History of lung biopsy History of esophagogastroduodenoscopy (EGD) History of surgery history of gallbladder sugery History of tonsillectomy and adenoidectomy Social History household members: family housing: house current occupational status: employed current occupational exposures/hazards: Yes Smoking Status: Former smoker Tobacco: How many years used: 2 alcohol intake: never substance use type: does not use caffeine: Yes Type: coffee Number of servings: 2 ROS ROS Narrative 10 systems were reviewed with pertinent positives as noted in the HPI above. Physical Exam Const alert, oriented x3 and no apparent distress Constitutional Narrative: Super morbidly obese. HEENT normocephalic and head/scalp atraumatic Eyes PERRL, EOMs intact bilaterally and conjunctivae normal Neck supple General: trachea midline Chest inspection of chest normal Resp Auscultation: diminished lung sounds; Negative for rales, rhonchi or wheezes Cardio regular rate and regular rhythm GI normal to inspection, nondistended, normoactive bowel sounds Extremity no clubbing, cyanosis or edema Skin no rashes or lesions noted Neuro CN's II-XII intact bilaterally, moves all extremities and no focal motor deficits Psych cooperative and affect normal Lab / Micro Data 06/17/24 04:55 06/17/24 04:55 Labs: Laboratory Results - last 24 hr 06/16/24 11:01: POC Glucose 105 06/16/24 17:23: POC Glucose 189 H 06/16/24 20:59: POC Glucose 233 H 06/17/24 04:55: WBC 3.7 L, RBC 3.70 L, Hgb 12.0 L, Hct 34.8 L, MCV 94.1 H, MCH 32.4 H, MCHC 34.5, RDW Std Deviation 55.9 H, RDW Coeff of Syed 16.2 H, Plt Count 106 L, MPV 9.1, Immature Gran % (Auto) 0.300, Neut % (Auto) 66.4, Lymph % (Auto)18.3 L, [place] % (Auto) 10.2 H, Eos % (Auto) 4.3, Baso % (Auto) 0.5, Absolute Neuts (auto) 2.5, Absolute Lymphs (auto) 0.68 L, Nucleated RBC % 0, Sodium 133, Potassium 4.5, Chloride 104, Carbon Dioxide 18.1 L, Anion Gap 11, BUN 33 H, Creatinine 2.61 H, Estim Creat Clear Calc 64.27, Est GFR (MDRD) Non-Af 29 L, BUN/Creatinine Ratio 12.6, Glucose 145 H, Calcium 10.7 06/17/24 05:32: POC Glucose 138 H Charges/Coding Visit Charges Inpatient E&M: 71263 Init Hosp L3 06/17/24 1023 <Electronically signed by [place] Strauss DO> Cosigner Signature (if applicable): CC: ANAM [employer] Jordana Baez~ Signed [facility] Work Phone: 1(434) 930-580804-07-2025 Consult note [facility] Medical Records Department [address] [place] [address] Consultation - Electric Meter Inspector 06/17/24 1010 MR#: [id number] Acct: [id number] Name: CHRISTA SILVERMAN Rep #:[id number] : 1975 49 From: Lake Strauss DO PCP: ANAM Caputo, [employer] Statu s:ADM IN Location: [id number] Assessment & Plan Assessment/Plan (1) Hypercalcemia: (2) Granulomatous lung disease: PLAN: Plan RECOMMENDATIONS: 1. I agree with initiating prednisone 40 mg daily, if okay with endocrinology from a diabetes perspective. 2. The patient should be maintained on this dose of prednisone until he is followed up in the pulmonary medicine clinic on 07/08. 3. Continue nocturnal PAP therapy per home regimen. IMPRESSIONS: 1. Acute kidney injury in the setting of hypercalcemia The patient's acute kidney injury has improved and his hypercalcemia has resolved with medical therapy. I do agree that the hypercalcemia may be secondary to granulomatous lung disease, as was noted on CT-guided lung biopsy from August 2023. Given that I suspect that the patient has sarcoidosis, willcheck serum SEB level. In the interim, I would recommend that the patient be started on prednisone 40 mg daily, if okay with his anaesthetic technician, due to his significant diabetes mellitus. I would recommend that he be maintained on 40 mgof prednisone daily until he can be followed up in the pulmonary medicine officeon July 08. If the patient is doing well at that time, we can begin to wean his corticosteroids cautiously. 2. Shortness of breath Suspect multifactorial etiology with underlying cardiomyopathy, super morbid obesity and sarcoidosis contributing. As noted above, recommend initiation of corticosteroid therapy at this time, with outpatient pulmonary follow-up, as scheduled. 3. Pulmonary nodularity Likely related to underlying granulomatous lung disease. 4. History of obstructive sleep apnea Continue nocturnal BiPAP therapy per home regimen. This note was generated with Mosaic dictation software. It may contain incorrectwords, spelling, and punctuation that were not noted in checking the note beforesigning. HPI Consult Data Date of Consult: 06/17/24 HPI Narrative Reason for Consultation: Sarcoidosis HPI Narrative: The patient is a 49-year-old male, with a history as outlined below, who presented to the emergencydepartment on June 14 with worsening renal function noted on laboratory workup by his snuff container inspector,along with evidence of hypercalcemia. The patient is currently followed in the pulmonary medicine cl in. I last personally saw the patient in September 2021. He has a known historyof obstructive sleep apnea and is maintained on nocturnal BiPAP with a pressure support of 17/13 cm of water. He also has chronic shortness of breath which is multifactorial in etiology along with pulmonary nodularity, which has been managed with serial CT imaging. A CT-guided lung biopsy was actually completed in August 2023 in the right upper lobe with evidence of nonnecrotizing granulomas noted. It also appears that the patient had a liver biopsy completed in March2022, which also showed evidence of nonnecrotizing granuloma inflammation. On admission, the patient was noted to have a normal white blood cell count and evidence of chronicthrombocytopenia with a platelet count of 128,000. Chemistry profile was notable for a creatinine of 3.36, which was previously noted to be 1.65 in April 2024. Calcium was elevated at 14. The patient wasseen in consultation by nephrology. He has been medically managed with supplemental IV fluidswith concern that his renal insufficiency may be secondary to hypercalcemia. With medical management, the patient's hypercalcemia has resolved. His renal function is also improving. [facility] Medical History History of chicken pox Chronic kidney disease Pneumonia History of steroid therapy History of renal disease Fatty liver Former smoker BiPAP (biphasic positive airway pressure) dependence Sleep apnea History of edema Elevated liver enzymes COVID-19 Vitamin D deficiency Thyroid disease Hyperlipidemia Hypertension Diabetes Home Medications ?Medication ?Instructions ?Recorded ?Last Taken ?Type aspirin 81 mg chewable tablet 81 mg PO DAILY@0800 hear t health 08/11/16 04/15/18 History magnesium oxide 250 mg PO BID supplement 06/2904/15/18 History lancets 28 gauge (Easy Touch #100 ea 02/27/20 Unknown Rx Lancets) OneTouch Verio Flex meter #1 ea 06/29/20 Unknown Rx (blood-glucose meter) atorvastatin 20 mg tablet 20 mg PO QHS cholestoral 01/31 Unknown History BD Insulin Syringe 1 mL 25 gauge x #100 ea 05/24/21 Un known Rx 5/8 (insulin syringe-needle U-100) insulin syringe-needle U-100 0.5 #100 ea 06/02/22 Unkn own Rx mL 31 gauge x 5/16 (BD Insulin Syringe Ultra-Fine) OneTouch Verio test strips (blood #100 ea 08/25/22 Unk nown Rx sugar diagnostic) scopolamine base 1 mg over 3 days 1 patch transdermal Q72H PRN 01/26/23 Unknown History transdermal patch nausea and vomiting gabapentin 300 mg capsule 300 mg PO TID PRN neuropathy #90 04/10/23 Unknown Rx caps pen needle, diabetic 32 gauge x #100 ea 07/20/23 Unkno wn Rx 32 (BD Ultra-Fine Shani Pen Needle) insulin syringe-needle U-100 1 mL #100 ea 08/31/23 Unk nown Rx 31 gauge x 5/16 (BD Insulin Syringe Ultra-Fine) pen needle, diabetic 32 gauge x #50 ea 08/31/23 Unknow n Rx 32 (BD Ultra-Fine Shani Pen Needle) ursodiol 300 mg capsule 300 mg PO BID #60 caps 01/03 Unknown Rx lisinopril 20 mg tablet 20 mg PO QDAY 01/15/24 Unkno wn History nebulizer tubing kits #1 ea 02/05/24 Unknown Rx neublizer machine #1 ea 02/05/24 Unknown Rx lancets 33 gauge (OneTouch Delica #100 ea 02/22/24 Unk nown Rx Plus Lancet) albuterol sulfate 2.5 mg/3 mL 2.5 mg (3 mL) inhalation Q4-6H PRN 03/15/24 Unknown Rx (0.083 %) solution for nebulization shortness of breat h or wheezing #180 mL levothyroxine 175 mcg tablet 175 mcg PO DAILY #30 tabs 04/02/24 Unknown Rx cholecalciferol (vitamin D3) 25 2,000 unit PO DAILY Unknown History mcg (1,000 unit) capsule (Vitamin D3) fluticasone furoate 200 1 inh inhalation Q24H #30 ea 04/30/24 Unknown Rx mcg/actuation blister powder for inhalation (Arnuity Ellipta) tirzepatide 10 mg/0.5 mL 10 mg subcut QWEEK 04/30/24 Unknown History subcutaneous pen injector (Vignesh) dapagliflozin propanediol 10 mg 10 mg PO QDAY #90 tabs 05/07/24 Unknown Rx tablet (Farxiga) metoprolol succinate 200 mg 200 mg PO QDAY #90 tabs Unknown Rx tablet,extended release 24 hr blood sugar diagnostic (Blood #100 ea 06/12/24 Unknown Rx Glucose Test strips) insulin regular hum U-500 conc 500 See Rx Instructions subcut BID 06/14/24 Unknown History unit/mL(3 mL) subcut pen (Humulin R U-500 (Conc) Insulin Kwikpen) Allergy/AdvReac Type Severity Reaction Status Date / Time wool AdvReac Severe Hives Verified 06/14/24 14:14 Family History Grandfather Family history of heart disease Family history of hypertension Hyperlipidemia Hypertension Diabetes Mother Family history of high cholesterol COPD (chronic obstructive pulmonary disease) Family history of hypertension in mother Grandfather Family history of high cholesterol Sleep apnea Aunt Family history of hypertension Sister Cancer Father , Diabetes Diabetes Hypertension Hyperlipidemia Surgical History History of lung biopsy History of esophagogastroduodenoscopy (EGD) History of surgery history of gallbladder sugery History of tonsillectomy and adenoidectomy Social History household members: family housing: house current occupational status: employed current occupational exposures/hazards: Yes Smoking Status: Former smoker Tobacco: How many years used: 2 alcohol intake: never substance use type: does not use caffeine: Yes Type: coffee Number of servings: 2 ROS ROS Narrative 10 systems were reviewed with pertinent positives as noted in the HPI above. Physical Exam Const alert, oriented x3 and no apparent distress Constitutional Narrative: Super morbidly obese. HEENT normocephalic and head/scalp atraumatic Eyes PERRL, EOMs intact bilaterally and conjunctivae normal Neck supple General: trachea midline Chest inspection of chest normal Resp Auscultation: diminished lung sounds; Negative for rales, rhonchi or wheezes Cardio regular rate and regular rhythm GI normal to inspection, nondistended, normoactive bowel sounds Extremity no clubbing, cyanosis or edema Skin no rashes or lesions noted Neuro CN's II-XII intact bilaterally, moves all extremities and no focal motor deficits Psych cooperative and affect normal Lab / Micro Data 06/17/24 04:55 06/17/24 04:55 Labs: Laboratory Results - last 24 hr 06/16/24 11:01: POC Glucose 105 06/16/24 17:23: POC Glucose 189 H 06/16/24 20:59: POC Glucose 233 H 06/17/24 04:55: WBC 3.7 L, RBC 3.70 L, Hgb 12.0 L, Hct 34.8 L, MCV 94.1 H, MCH 32.4 H, MCHC 34.5, RDW Std Deviation 55.9 H, RDW Coeff of Syed 16.2 H, Plt Count 106 L, MPV 9.1, Immature Gran % (Auto) 0.300, Neut % (Auto) 66.4, Lymph % (Auto)18.3 L, [place] % (Auto) 10.2 H, Eos % (Auto) 4.3, Baso % (Auto) 0.5, Absolute Neuts (auto) 2.5, Absolute Lymphs (auto) 0.68 L, Nucleated RBC % 0, Sodium 133, Potassium 4.5, Chloride 104, Carbon Dioxide 18.1 L, Anion Gap 11, BUN 33 H, Creatinine 2.61 H, Estim Creat Clear Calc 64.27, Est GFR (MDRD) Non-Af 29 L, BUN/Creatinine Ratio 12.6, Glucose 145 H, Calcium 10.7 06/17/24 05:32: POC Glucose 138 H Charges/Coding Visit Charges Inpatient E&M: 11475 Init Hosp L3 06/17/24 1023 Cosigner Signature (if applicable): CC: [employer]NAM [employer] Jordana Baez~ Signed [facility]04-06-2025 Progress note Author Hipolito Jackson [facility] Note Date/Time June 16, 2024 10:0 2am [facility] Medical Records Department [address] [place] [address] Progress Note - Hospitalist 06/16/24 0831 MR#: [id number] Acct: [id number] Name: CHRISTA SILVERMAN Rep #:[id number] : 1975 49 From: Hipolito Jackson MD PCP: ANAM Caputo, [employer] Statu s:ADM IN Location: [place] [id number] Reason for Visit Reason for Visit: Diagnoses Hypercalcemia (06/14/24) Acute kidney failure, unspecified (06/14/24) Subjective Subjective Patient seen really uneventful night. Calcium and creatinine levels trending down Objective Data Objective Data Vital Signs: Vital Signs Temp Pulse Resp BP Pulse Ox O2 Del Method 97.8 F 77 20 H 132/75 H 96 Room Air 06/16/24 04:24 06/16/24 07:40 06/16/24 07:31 06/16/24 04:24 06/16/24 04:24 06/16/24 04:25 Oxygen Delivery Method Room Air Weight: 226 kg Body Mass Index (BMI) 71.3 Intake & Output: Intake and Output for Last 24 Hours 06/14/24 06/15/24 06/16/24 23:59 23:59 23:59 Intake Total 1500 / 1500 3335.42 / 3335.42 937.5 / 937.5 Output Total 600 / 1600 3300 / 3300 350 / 350 Balance 900 / -100 35.42 / 35.42 587.5 / 587.5 Lab / Micro Data 06/16/24 08:15 06/16/24 08:15 Labs: Laboratory Results - last 24 hr 06/15/24 11:28: POC Glucose 237 H 06/15/24 16:47: POC Glucose 240 H 06/15/24 20:57: POC Glucose 162 H 06/16/24 04:30: POC Glucose 67 L Physical Exam Narrative GENERAL: cooperative HEENT: Atraumatic; normocephalic EYES; Anicteric, Normal Conjunctiva NECK; supple, normal thyroid, RESPIRATORY: Diminished to auscultation CARDIOVASCULAR: Regular S1 S2, GI: soft, normoactive bowel sounds, : No Renal angle tenderness; EXTREMITIES: No edema, no clubbing, MUSCULOSKELETAL: no muscle wasting NEURO: Awake; no lateralizing signs. SKIN: No Rash PSYCH; Flat affect Assessment & Plan Assessment/Plan (1) ARSEN (acute kidney injury): (2) Hypercalcemia: PLAN: Plan Patient is a 49-year-old gentleman who was admitted with worsening kidney function from prior to undergoing CT of his coronaries. 1. Acute kidney injury ? Superimposed on chronic kidney disease stage III baseline creatinine 1.6, creatinine on admission was 3.3. Patient admitted to regular nursing floor started on IV fluids.CT of the abdomen and pelvis obtained as part of patient management did not reveal any renal stones no hydronephrosis. Consult was placed to nephrology as outpatient ? 06/16/2024; patient responding to IV fluid creatinine down to 2.50 2. Hypercalcemia ? Patient did receive IV fluid resuscitation as well as pamidronate. Ordered urine protein and serum electrophoresis as part of patient's management patient calcium levels trending down. Patient had apparently undergoneworkup as outpatient including biopsy which did show noncaseating granuloma? Sarcoidosis. Case discussed with nephrology plan is obtain pulmonary consultation. Patient had also undergone serum electrophoresis as outpatient which came back negative 3. Cardiomyopathy ? Recent echo demonstrated EF of 45% with mild LV concentric hypertrophy 4. Class III obesity with BMI of 71.3 ? Complicating care; Weight loss advised. 5. Hypothyroidism ? Patient is on levothyroxine home dose continued 6. Diabetes mellitus type II -patient's oral hypoglycemics held. Placed on long acting insulin, Accu-Cheks a.c. and at bedtime and covered with sliding scale insulin 7. Hypertension ? Blood pressure controlled, home medications continued with dose adjustment as needed 8. DVT prophylaxis ? SC heparin Time spent in the patient's overall evaluation,decision-making process, review of diagnostic data, adjustment of management, discussion with other providers, nursing nursing and ancillary staff involved in patient's care documentation, 38 Minutes Charges/Coding Visit Charges Inpatient E&M: 06540 Subs Hosp L2 06/16/24 1002 <Electronically signed by Hipolito Jackson MD> Cosigner Signature (if applicable): CC: ~ Signed [facility] Work Phone: 1(366) 410-338104-06-2025 Progress note [facility] Medical Records Department [address] [place] [address] Progress Note - Hospitalist 06/16/24 0831 MR#: [id number] Acct: [id number] Name: CHRISTA SILVERMAN Rep #:[id number] : 1975 49 From: Hipolito Jackson MD PCP: ANAM Caputo, [employer] Statu s:ADM IN [id number] Reason for Visit Reason for Visit: Diagnoses Hypercalcemia (06/14/24) Acute kidney failure, unspecified (06/14/24) Subjective Subjective Patient seen really uneventful night. Calcium and creatinine levels trending down Objective Data Objective Data Vital Signs: Vital Signs Temp Pulse Resp BP Pulse Ox O2 Del Method 97.8 F 77 20 H 132/75 H 96 Room Air 06/16/24 04:24 06/16/24 07:40 06/16/24 07:31 06/16/24 04:24 06/16/24 04:24 06/16/24 04:25 Oxygen Delivery Method Room Air Weight: 226 kg Body Mass Index (BMI) 71.3 Intake & Output: Intake and Output for Last 24 Hours 06/14/24 06/15/24 06/16/24 23:59 23:59 23:59 Intake Total 1500 / 1500 3335.42 / 3335.42 937.5 / 937.5 Output Total 600 / 1600 3300 / 3300 350 / 350 Balance 900 / -100 35.42 / 35.42 587.5 / 587.5 Lab / Micro Data 06/16/24 08:15 06/16/24 08:15 Labs: Laboratory Results - last 24 hr 06/15/24 11:28: POC Glucose 237 H 06/15/24 16:47: POC Glucose 240 H 06/15/24 20:57: POC Glucose 162 H 06/16/24 04:30: POC Glucose 67 L Physical Exam Narrative GENERAL: cooperative HEENT: Atraumatic; normocephalic EYES; Anicteric, Normal Conjunctiva NECK; supple, normal thyroid, RESPIRATORY: Diminished to auscultation CARDIOVASCULAR: Regular S1 S2, GI: soft, normoactive bowel sounds, : No Renal angle tenderness; EXTREMITIES: No edema, no clubbing, MUSCULOSKELETAL: no muscle wasting NEURO: Awake; no lateralizing signs. SKIN: No Rash PSYCH; Flat affect Assessment & Plan Assessment/Plan (1) ARSEN (acute kidney injury): (2) Hypercalcemia: PLAN: Plan Patient is a 49-year-old gentleman who was admitted with worsening kidney function from prior to undergoing CT of his coronaries. 1. Acute kidney injury ? Superimposed on chronic kidney disease stage III baseline creatinine 1.6, creatinine on admissionwas 3.3. Patient admitted to regular nursing floor started on IV fluids.CT of the abdomen and pelvis obtained as part of patient management did not reveal any renal stones no hydronephrosis. Consult was placed to nephrology as outpatient ? 06/16/2024; patient responding to IV fluid creatinine down to 2.50 2. Hypercalcemia ? Patient did receive IV fluid resuscitation as well as pamidronate. Ordered urine protein and serum electrophoresis as part of patient's management ? patient calcium levels trending down. Patient had apparently undergoneworkup as outpatientincluding biopsy which did show noncaseating granuloma? Sarcoidosis. Case discussed with nephrologyplan is obtain pulmonary consultation. Patient had also undergone serum electrophoresis as outpatient which came back negative 3. Cardiomyopathy ? Recent echo demonstrated EF of 45% with mild LV concentric hypertrophy 4. Class III obesity with BMI of 71.3 ? Complicating care; Weight loss advised. 5. Hypothyroidism ? Patient is on levothyroxine home dose continued 6. Diabetes mellitus type II -patient's oral hypoglycemics held. Placed on long acting insulin, Accu-Cheks a.c. and at bedtime and covered with sliding scale insulin 7. Hypertension ? Blood pressure controlled, home medications continued with dose adjustment as needed 8. DVT prophylaxis ? SC heparin Time spent in the patient's overall evaluation,decision-making process, review of diagnostic data, adjustment of management, discussion with other providers, nursing nursing and ancillary staff involved in patient's care documentation, 38 Minutes Charges/Coding Visit Charges Inpatient E&M: 00849 Subs Hosp L2 06/16/24 1002 Cosigner Signature (if applicable): CC: ~ Signed [facility]04-05-2025 Consult note Author Madeleine Benoit [facility] Note Date/Time June 15, 2024 2:20 pm [facility] Medical Records Department [address] [place] [address] Consultation - Nephrology 06/15/24 1342 MR#: [id number] Acct: [id number] Name: CHRISTA SILVERMAN Rep #:[id number] : 1975 49 From: Madeleine pichardo MD PCP: ANAM Caputo, [employer] Statu s:ADM IN Location: [place] [address] Assessment & Plan Assessment/Plan (1) ARSEN (acute kidney injury): PLAN: CKD stage IIIa, baseline creatinine is around 1.5 or so. Acute renal failure likely related to hypercalcemia. Better today (2) Hypercalcemia: PLAN: Hypercalcemia. This is new onset. He denies taking any excessive calciumsupplements. Of note, he had a similar episode few years ago. At that time we did extensive workup and was negative. PTH was suppressed. There was one lab with 1, 25 hydroxy vitamin D which was high but subsequently it was okay. Serumprotein electrophoresis negative. Reviewed his chart again for the last 4 to 5 years. 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 Looking back he also had a lung biopsy with noncaseating granulomatous. Histoplasma negative, TB screen negative. I think he has sarcoidosis. I sent avitamin D 2 levels. I think he will benefit from a short prednisone burst however he has significant diabetes, will have to check with endocrinology first. Will treat with other medications for now. Discussed with hospitalist, 1 dose of pamidronate has been given. Maintain IV fluids. On Monday we will check with pulmonology, endocrinology about plans. Will need to see pulmonologyfor sarcoidosis evaluation. HPI Consult Data Date of Consult: 06/15/24 HPI Narrative Reason for Consultation: Hypercalcemia HPI Narrative: CHRISTA SILVERMAN, is a 49 M who presents to the hospital with acute renal failure and hypercalcemia. Nephrology on consultation in view of the same. He is well-known to me. History of stage III CKD. Baseline creatinine around 1.5 or so. History of diabetes, follows with endocrinology. Morbid obesity. he was supposed to have a contrast study and had routine blood work drawn, this showed significantly elevated calcium and creatinine. Those labs were forwardedto the nephrology, we referred him to the ER. He has been asymptomatic. Deniesany urinary complaints. Somewhat low appetite for the last few days. He says only new medication is Farxiga for about a month or so. [facility] Medical History History of chicken pox Chronic kidney disease Pneumonia History of steroid therapy History of renal disease Fatty liver Former smoker BiPAP (biphasic positive airway pressure) dependence Sleep apnea History of edema Elevated liver enzymes COVID-19 Vitamin D deficiency Thyroid disease Hyperlipidemia Hypertension Diabetes Home Medications ?Medication ?Instructions ?Recorded ?Last Taken ?Type aspirin 81 mg chewable tablet 81 mg PO DAILY@0800 hear t health 08/11/16 04/15/18 History magnesium oxide 250 mg PO BID supplement 06/2904/15/18 History lancets 28 gauge (Easy Touch #100 ea 02/27/20 Unknown Rx Lancets) OneTouch Verio Flex meter #1 ea 06/29/20 Unknown Rx (blood-glucose meter) atorvastatin 20 mg tablet 20 mg PO QHS cholestoral 01/31 Unknown History BD Insulin Syringe 1 mL 25 gauge x #100 ea 05/24/21 Un known Rx 5/8 (insulin syringe-needle U-100) insulin syringe-needle U-100 0.5 #100 ea 06/02/22 Unkn own Rx mL 31 gauge x 5/16 (BD Insulin Syringe Ultra-Fine) OneTouch Verio test strips (blood #100 ea 08/25/22 Unk nown Rx sugar diagnostic) scopolamine base 1 mg over 3 days 1 patch transdermal Q72H PRN 01/26/23 Unknown History transdermal patch nausea and vomiting gabapentin 300 mg capsule 300 mg PO TID PRN neuropathy #90 04/10/23 Unknown Rx caps pen needle, diabetic 32 gauge x #100 ea 07/20/23 Unkno wn Rx 5/32 (BD Ultra-Fine Shani Pen Needle) insulin syringe-needle U-100 1 mL #100 ea 08/31/23 Unk nown Rx 31 gauge x 5/16 (BD Insulin Syringe Ultra-Fine) pen needle, diabetic 32 gauge x #50 ea 08/31/23 Unknow n Rx 32 (BD Ultra-Fine Shani Pen Needle) ursodiol 300 mg capsule 300 mg PO BID #60 caps 01/03 Unknown Rx lisinopril 20 mg tablet 20 mg PO QDAY 01/15/24 Unkno wn History nebulizer tubing kits #1 ea 02/05/24 Unknown Rx neublizer machine #1 ea 02/05/24 Unknown Rx lancets 33 gauge (OneTouch Delica #100 ea 02/22/24 Unk nown Rx Plus Lancet) albuterol sulfate 2.5 mg/3 mL 2.5 mg (3 mL) inhalation Q4-6H PRN 03/15/24 Unknown Rx (0.083 %) solution for nebulization shortness of breat h or wheezing #180 mL levothyroxine 175 mcg tablet 175 mcg PO DAILY #30 tabs 04/02/24 Unknown Rx cholecalciferol (vitamin D3) 25 2,000 unit PO DAILY Unknown History mcg (1,000 unit) capsule (Vitamin D3) fluticasone furoate 200 1 inh inhalation Q24H #30 ea 04/30/24 Unknown Rx mcg/actuation blister powder for inhalation (Arnuity Ellipta) tirzepatide 10 mg/0.5 mL 10 mg subcut QWEEK 04/30/24 Unknown History subcutaneous pen injector (Vignesh) dapagliflozin propanediol 10 mg 10 mg PO QDAY #90 tabs 05/07/24 Unknown Rx tablet (Farxiga) metoprolol succinate 200 mg 200 mg PO QDAY #90 tabs Unknown Rx tablet,extended release 24 hr blood sugar diagnostic (Blood #100 ea 06/12/24 Unknown Rx Glucose Test strips) insulin regular hum U-500 conc 500 See Rx Instructions subcut BID 06/14/24 Unknown History unit/mL(3 mL) subcut pen (Humulin R U-500 (Conc) Insulin Kwikpen) Allergy/AdvReac Type Severity Reaction Status Date / Time wool AdvReac Severe Hives Verified 06/14/24 14:14 Family History Grandfather Family history of heart disease Family history of hypertension Hyperlipidemia Hypertension Diabetes Mother Family history of high cholesterol COPD (chronic obstructive pulmonary disease) Family history of hypertension in mother Grandfather Family history of high cholesterol Sleep apnea Aunt Family history of hypertension Sister Cancer Father , Diabetes Diabetes Hypertension Hyperlipidemia Surgical History History of lung biopsy History of esophagogastroduodenoscopy (EGD) History of surgery history of gallbladder sugery History of tonsillectomy and adenoidectomy Social History household members: family housing: house current occupational status: employed current occupational exposures/hazards: Yes Smoking Status: Former smoker Tobacco: How many years used: 2 alcohol intake: never substance use type: does not use caffeine: Yes Type: coffee Number of servings: 2 ROS ROS Narrative Negative except above Physical Exam Narrative Alert awake oriented x 3 no obvious distress no pallor no icterus no JVD s1s2 no murmurs lungs clear abdomen soft no organomegaly no edema no cyanosis matthew + Lab / Micro Data 06/15/24 05:09 06/15/24 05:09 Labs: Laboratory Results - last 24 hr 06/14/24 14:37: WBC 4.2 L, RBC 4.30 L, Hgb 14.2, Hct 39.7 L, MCV 92.3, MCH 33.0 H, MCHC 35.8, RDW Std Deviation 55.8 H, RDW Coeff of Syed 16.7 H, Plt Count 128 L, MPV 9.1, Immature Gran % (Auto) 0.200, Neut % (Auto) 67.0, Lymph % (Auto) 16.6L, [place] % (Auto) 11.1 H, Eos % (Auto) 4.6, Baso % (Auto) 0.5, Absolute Neuts (auto) 2.8, Absolute Lymphs (auto) 0.69 L, Nucleated RBC % 0, Sodium 131 L, Potassium 4.3, Chloride 99, Carbon Dioxide 18.6 L, Anion Gap 13, BUN 50 H, Creatinine 3.30 H, Estim Creat Clear Calc 50.83, Est GFR (MDRD) Non-Af 22 L, BUN/Creatinine Ratio 15.3, Glucose 222 H, Calcium 14.0 H*, Total Bilirubin 0.70,Direct Bilirubin 0.34 H, AST 59 H, ALT 41, Alkaline Phosphatase 172 H, Total Protein 7.4, Albumin 4.1, Globulin 3.3 06/14/24 17:45: Urine Color Yellow, Urine Clarity Clear, Urine pH 6.0, Ur Specific [place] 1.020, Urine Protein 30 H, Urine Glucose (UA) 1000 H, Urine Ketones Negative, Urine Occult Blood 25 H, Urine Nitrite Negative, Urine Bilirubin Negative, Urine Urobilinogen Normal, Ur Leukocyte Esterase Negative, Urine RBC 0-5 SEEN, Urine WBC 0 SEEN, Ur Squamous Epith Cells 0-5 SEEN, Amorphous Sediment 1+ URATE, Urine Bacteria 0 SEEN, Urine Mucus 0 SEEN 06/14/24 17:54: POC Glucose 220 H 06/14/24 21:27: POC Glucose 219 H 06/15/24 05:09: WBC 4.5, RBC 3.94 L, Hgb 12.9 L, Hct 37.1 L, MCV 94.2 H, MCH 32.7 H, MCHC 34.8, RDW Std Deviation 57.1 H, RDW Coeff of Syed 16.7 H, Plt Count 125 L, MPV 9.9, Immature Gran % (Auto) 0.400, Neut % (Auto) 67.5, Lymph % (Auto)18.1 L, [place] % (Auto) 9.8, Eos % (Auto) 3.8, Baso % (Auto) 0.4, Absolute Neuts (auto) 3.0, Absolute Lymphs (auto) 0.81 L, Nucleated RBC % 0, Sodium 132 L, Potassium 4.4, Chloride 102, Carbon Dioxide 17.7 L, Anion Gap 13, BUN 44 H, Creatinine 2.97 H, Estim Creat Clear Calc 56.48, Est GFR (MDRD) Non-Af 25 L, BUN/Creatinine Ratio 14.8, Glucose 204 H, Calcium 12.4 H, Vitamin D 25-Hydroxy 21.5 L 06/15/24 06:23: POC Glucose 208 H 06/15/24 11:28: POC Glucose 237 H Imaging Radiology Impression Abdomen/Pelvis CT 06/14/24 16:45 IMPRESSION: Patchy ill-defined mainly perihilar appearing ground-glass opacities at the bilateral visualized lung bases may be inflammatory or infectious or less likely pulmonary edema, clinically correlate. No pleural effusion seen. Splenomegaly 17.4 cm. Reading Location: [facility] 06/15/24 1420 <Electronically signed by Madeleine Benoit MD> Cosigner Signature (if applicable): CC: ANAM [employer] Jordana Baez~ Signed [facility] Work Phone: [phone]) 315-481304-05-2025 Consult note [facility] Medical Records Department [address] [place] [address] Consultation - Nephrology 06/15/24 1342 MR#: [id number] Acct: [id number] Name: CHRISTA SILVERMAN Rep #:[id number] : 1975 49 From: Madeleine pichardo MD PCP: ANAM Caputo, [employer] Statu s:ADM IN Location: [facility] [id number] Assessment & Plan Assessment/Plan (1) ARSEN (acute kidney injury): PLAN: CKD stage IIIa, baseline creatinine is around 1.5 or so. Acute renal failure likely related to hypercalcemia. Better today (2) Hypercalcemia: PLAN: Hypercalcemia. This is new onset. He denies taking any excessive calciumsupplements. Of note,he had a similar episode few years ago. At that time we did extensive workup and was negative. PTH was suppressed. There was one lab with 1, 25 hydroxy vitamin D which was high but subsequently it was okay. Serumprotein electrophoresis negative. Reviewed his chart again for the last 4 to 5 years. 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 Looking back he also had a lung biopsy with noncaseating granulomatous. Histoplasma negative, TB screen negative. I think he has sarcoidosis. I sent avitamin D 2 levels. I think he will benefit from a short prednisone burst however he has significant diabetes, will have to check with endocrinology first. Will treat with other medications for now. Discussed with hospitalist, 1 dose of pamidronate has been given. Maintain IV fluids. On Monday wedennys check with pulmonology, endocrinology about plans. Will need to see pulmonologyfor sarcoidosisevaluation. HPI Consult Data Date of Consult: 06/15/24 HPI Narrative Reason for Consultation: Hypercalcemia HPI Narrative: CHRISTA SILVERMAN, is a 49 M who presents to the hospital with acute renal failure and hypercalcemia. Nephrology on consultation in view of the same. He is well- known to me. History of stage III CKD. Baseline creatinine around 1.5 or so. History of diabetes, follows with endocrinology. Morbid obesity. he was supposed to have a contrast study and had routine blood work drawn, this showed significantly elevated calcium and creatinine. Those labs were forwardedto the nephrology, we referred him to the ER. He has been asymptomatic. Deniesany urinary complaints. Somewhat low appetite for the last fewdays. He says only new medication is Farxiga for about a month or so. [facility] Medical History History of chicken pox Chronic kidney disease Pneumonia History of steroid therapy History of renal disease Fatty liver Former smoker BiPAP (biphasic positive airway pressure) dependence Sleep apnea History of edema Elevated liver enzymes COVID-19 Vitamin D deficiency Thyroid disease Hyperlipidemia Hypertension Diabetes Home Medications ?Medication ?Instructions ?Recorded ?Last Taken ?Type aspirin 81 mg chewable tablet 81 mg PO DAILY@0800 hear t health 08/11/16 04/15/18 History magnesium oxide 250 mg PO BID supplement 06/2904/15/18 History lancets 28 gauge (Easy Touch #100 ea 02/27/20 Unknown Rx Lancets) OneTouch Verio Flex meter #1 ea 06/29/20 Unknown Rx (blood-glucose meter) atorvastatin 20 mg tablet 20 mg PO QHS cholestoral 01/31 Unknown History BD Insulin Syringe 1 mL 25 gauge x #100 ea 05/24/21 Un known Rx 5/8 (insulin syringe-needle U-100) insulin syringe-needle U-100 0.5 #100 ea 06/02/22 Unkn own Rx mL 31 gauge x 5/16 (BD Insulin Syringe Ultra-Fine) OneTouch Verio test strips (blood #100 ea 08/25/22 Unk nown Rx sugar diagnostic) scopolamine base 1 mg over 3 days 1 patch transdermal Q72H PRN 01/26/23 Unknown History transdermal patch nausea and vomiting gabapentin 300 mg capsule 300 mg PO TID PRN neuropathy #90 04/10/23 Unknown Rx caps pen needle, diabetic 32 gauge x #100 ea 07/20/23 Unkno wn Rx 5/32 (BD Ultra-Fine Shani Pen Needle) insulin syringe-needle U-100 1 mL #100 ea 08/31/23 Unk nown Rx 31 gauge x 5/16 (BD Insulin Syringe Ultra-Fine) pen needle, diabetic 32 gauge x #50 ea 08/31/23 Unknow n Rx 5/32 (BD Ultra-Fine Shani Pen Needle) ursodiol 300 mg capsule 300 mg PO BID #60 caps 01/03 Unknown Rx lisinopril 20 mg tablet 20 mg PO QDAY 01/15/24 Unkno wn History nebulizer tubing kits #1 ea 02/05/24 Unknown Rx neublizer machine #1 ea 02/05/24 Unknown Rx lancets 33 gauge (OneTouch Delica #100 ea 02/22/24 Unk nown Rx Plus Lancet) albuterol sulfate 2.5 mg/3 mL 2.5 mg (3 mL) inhalation Q4-6H PRN 03/15/24 Unknown Rx (0.083 %) solution for nebulization shortness of breat h or wheezing #180 mL levothyroxine 175 mcg tablet 175 mcg PO DAILY #30 tabs 04/02/24 Unknown Rx cholecalciferol (vitamin D3) 25 2,000 unit PO DAILY Unknown History mcg (1,000 unit) capsule (Vitamin D3) fluticasone furoate 200 1 inh inhalation Q24H #30 ea 04/30/24 Unknown Rx mcg/actuation blister powder for inhalation (Arnuity Ellipta) tirzepatide 10 mg/0.5 mL 10 mg subcut QWEEK 04/30/24 Unknown History subcutaneous pen injector (Vignesh) dapagliflozin propanediol 10 mg 10 mg PO QDAY #90 tabs 05/07/24 Unknown Rx tablet (Farxiga) metoprolol succinate 200 mg 200 mg PO QDAY #90 tabs Unknown Rx tablet,extended release 24 hr blood sugar diagnostic (Blood #100 ea 06/12/24 Unknown Rx Glucose Test strips) insulin regular hum U-500 conc 500 See Rx Instructions subcut BID 06/14/24 Unknown History unit/mL(3 mL) subcut pen (Humulin R U-500 (Conc) Insulin Kwikpen) Allergy/AdvReac Type Severity Reaction Status Date / Time wool AdvReac Severe Hives Verified 06/14/24 14:14 Family History Grandfather Family history of heart disease Family history of hypertension Hyperlipidemia Hypertension Diabetes Mother Family history of high cholesterol COPD (chronic obstructive pulmonary disease) Family history of hypertension in mother Grandfather Family history of high cholesterol Sleep apnea Aunt Family history of hypertension Sister Cancer Father , Diabetes Diabetes Hypertension Hyperlipidemia Surgical History History of lung biopsy History of esophagogastroduodenoscopy (EGD) History of surgery history of gallbladder sugery History of tonsillectomy and adenoidectomy Social History household members: family housing: house current occupational status: employed current occupational exposures/hazards: Yes Smoking Status: Former smoker Tobacco: How many years used: 2 alcohol intake: never substance use type: does not use caffeine: Yes Type: coffee Number of servings: 2 ROS ROS Narrative Negative except above Physical Exam Narrative Alert awake oriented x 3 no obvious distress no pallor no icterus no JVD s1s2 no murmurs lungs clear abdomen soft no organomegaly no edema no cyanosis matthew + Lab / Micro Data 06/15/24 05:09 06/15/24 05:09 Labs: Laboratory Results - last 24 hr 06/14/24 14:37: WBC 4.2 L, RBC 4.30 L, Hgb 14.2, Hct 39.7 L, MCV 92.3, MCH 33.0 H, MCHC 35.8, RDW Std Deviation 55.8 H, RDW Coeff of Syed 16.7 H, Plt Count 128 L, MPV 9.1, Immature Gran % (Auto) 0.200, Neut % (Auto) 67.0, Lymph % (Auto) 16.6L, [place] % (Auto) 11.1 H, Eos % (Auto) 4.6, Baso % (Auto) 0.5, Absolute Neuts (auto) 2.8, Absolute Lymphs (auto) 0.69 L, Nucleated RBC % 0, Sodium 131 L, Potassium 4.3, Chloride 99, Carbon Dioxide 18.6 L, Anion Gap 13, BUN 50 H, Creatinine 3.30 H, Estim Creat Clear Calc 50.83, Est GFR (MDRD) Non-Af 22 L, BUN/Creatinine Ratio 15.3, Glucose 222 H, Calcium 14.0H*, Total Bilirubin 0.70,Direct Bilirubin 0.34 H, AST 59 H, ALT 41, Alkaline Phosphatase 172 H, Tota l Protein 7.4, Albumin 4.1, Globulin 3.3 06/14/24 17:45: Urine Color Yellow, Urine Clarity Clear, Urine pH 6.0, Ur Specific [place] 1.020, Urine Protein 30 H, Urine Glucose (UA) 1000 H, Urine Ketones Negative, Urine Occult Blood 25 H, UrineNitrite Negative, Urine Bilirubin Negative, Urine Urobilinogen Normal, Ur Leukocyte Esterase Negative, Urine RBC 0-5 SEEN, Urine WBC 0 SEEN, Ur Squamous Epith Cells 0-5 SEEN, Amorphous Sediment 1+ URATE, Urine Bacteria 0 SEEN, Urine Mucus 0 SEEN 06/14/24 17:54: POC Glucose 220 H 06/14/24 21:27: POC Glucose 219 H 06/15/24 05:09: WBC 4.5, RBC 3.94 L, Hgb 12.9 L, Hct 37.1 L, MCV 94.2 H, MCH 32.7 H, MCHC 34.8, RDWStd Deviation 57.1 H, RDW Coeff of Syed 16.7 H, Plt Count 125 L, MPV 9.9, Immature Gran % (Auto) 0.400, Neut % (Auto) 67.5, Lymph % (Auto)18.1 L, [place] % (Auto) 9.8, Eos % (Auto) 3.8, Baso % (Auto) 0.4, Absolute Neuts (auto) 3.0, Absolute Lymphs (auto) 0.81 L, Nucleated RBC % 0, Sodium 132 L, Potassium 4.4, Chloride 102, Carbon Dioxide 17.7 L, Anion Gap 13, BUN 44 H, Creatinine 2.97 H, Estim Creat Clear Calc 56.48, Est GFR (MDRD) Non-Af 25 L, BUN/Creatinine Ratio 14.8, Glucose 204 H, Calcium 12.4H, Vitamin D 25-Hydroxy 21.5 L 06/15/24 06:23: POC Glucose 208 H 06/15/24 11:28: POC Glucose 237 H Imaging Radiology Impression Abdomen/Pelvis CT 06/14/24 16:45 IMPRESSION: Patchy ill-defined mainly perihilar appearing ground-glass opacities at the bilateral visualized lung bases may be inflammatory or infectious or less likely pulmonary edema, clinically correlate. No pleural effusion seen. Splenomegaly 17.4 cm. Reading Location: [facility] 06/15/24 1420 Cosigner Signature (if applicable): CC: ANAM Baez~ Signed [facility]04-05-2025 Progress note Author Hipolito Jackson [facility] Note Date/Time June 15, 2024 11:3 3am [facility] Medical Records Department [address] [place] [address] Progress Note - Hospitalist 06/15/24 0737 MR#: [id number] Acct: [id number] Name: CHRISTA SILVERMAN Rep #:[id number] : 1975 49 From: Hipolito Jackson MD PCP: ANAM Caputo, [employer] Statu s:ADM IN Location[place] [facility] [id number] Reason for Visit Reason for Visit: Diagnoses Hypercalcemia (06/14/24) Acute kidney failure, unspecified (06/14/24) Subjective Subjective Patient is a 49-year-old gentleman who was admitted with worsening kidney function from prior to undergoing CT of his coronaries. Objective Data Objective Data Vital Signs: Vital Signs Temp Pulse Resp BP Pulse Ox O2 Del Method 97.7 F L 93 16 114/67 95 Room Air 06/15/24 06:28 06/15/24 06:28 06/15/24 06:28 06/15/24 06:28 06/15/24 06:28 06/15/24 06:28 Oxygen Delivery Method Room Air Weight: 226 kg Body Mass Index (BMI) 71.3 Intake & Output: Intake and Output for Last 24 Hours 06/13/24 06/14/24 06/15/24 23:59 23:59 23:59 Intake Total 1500 / 1500 1600 / 1600 Output Total 600 / 1600 1725 / 1725 Balance 900 / -100 -125 / -125 Lab / Micro Data 06/15/24 05:09 06/15/24 05:09 Labs: Laboratory Results - last 24 hr 06/14/24 14:37: WBC 4.2 L, RBC 4.30 L, Hgb 14.2, Hct 39.7 L, MCV 92.3, MCH 33.0 H, MCHC 35.8, RDW Std Deviation 55.8 H, RDW Coeff of Syed 16.7 H, Plt Count 128 L, MPV 9.1, Immature Gran % (Auto) 0.200, Neut % (Auto) 67.0, Lymph % (Auto) 16.6L, [place] % (Auto) 11.1 H, Eos % (Auto) 4.6, Baso % (Auto) 0.5, Absolute Neuts (auto) 2.8, Absolute Lymphs (auto) 0.69 L, Nucleated RBC % 0, Sodium 131 L, Potassium 4.3, Chloride 99, Carbon Dioxide 18.6 L, Anion Gap 13, BUN 50 H, Creatinine 3.30 H, Estim Creat Clear Calc 50.83, Est GFR (MDRD) Non-Af 22 L, BUN/Creatinine Ratio 15.3, Glucose 222 H, Calcium 14.0 H*, Total Bilirubin 0.70,Direct Bilirubin 0.34 H, AST 59 H, ALT 41, Alkaline Phosphatase 172 H, Total Protein 7.4, Albumin 4.1, Globulin 3.3 06/14/24 17:45: Urine Color Yellow, Urine Clarity Clear, Urine pH 6.0, Ur Specific [place] 1.020, Urine Protein 30 H, Urine Glucose (UA) 1000 H, Urine Ketones Negative, Urine Occult Blood 25 H, Urine Nitrite Negative, Urine Bilirubin Negative, Urine Urobilinogen Normal, Ur Leukocyte Esterase Negative, Urine RBC 0-5 SEEN, Urine WBC 0 SEEN, Ur Squamous Epith Cells 0-5 SEEN, Amorphous Sediment 1+ URATE, Urine Bacteria 0 SEEN, Urine Mucus 0 SEEN 06/14/24 17:54: POC Glucose 220 H 06/14/24 21:27: POC Glucose 219 H 06/15/24 05:09: WBC 4.5, RBC 3.94 L, Hgb 12.9 L, Hct 37.1 L, MCV 94.2 H, MCH 32.7 H, MCHC 34.8, RDW Std Deviation 57.1 H, RDW Coeff of Syed 16.7 H, Plt Count 125 L, MPV 9.9, Immature Gran % (Auto) 0.400, Neut % (Auto) 67.5, Lymph % (Auto)18.1 L, [place] % (Auto) 9.8, Eos % (Auto) 3.8, Baso % (Auto) 0.4, Absolute Neuts (auto) 3.0, Absolute Lymphs (auto) 0.81 L, Nucleated RBC % 0, Sodium 132 L, Potassium 4.4, Chloride 102, Carbon Dioxide 17.7 L, Anion Gap 13, BUN 44 H, Creatinine 2.97 H, Estim Creat Clear Calc 56.48, Est GFR (MDRD) Non-Af 25 L, BUN/Creatinine Ratio 14.8, Glucose 204 H, Calcium 12.4 H, Vitamin D 25-Hydroxy 21.5 L 06/15/24 06:23: POC Glucose 208 H Radiography Diagnostic Testing: Radiology Impression Abdomen/Pelvis CT 06/14/24 16:45 IMPRESSION: Patchy ill-defined mainly perihilar appearing ground-glass opacities at the bilateral visualized lung bases may be inflammatory or infectious or less likely pulmonary edema, clinically correlate. No pleural effusion seen. Splenomegaly 17.4 cm. Reading Location: [facility] Physical Exam Narrative GENERAL: cooperative HEENT: Atraumatic; normocephalic EYES; Anicteric, Normal Conjunctiva NECK; supple, normal thyroid, RESPIRATORY: Diminished to auscultation CARDIOVASCULAR: Regular S1 S2, GI: soft, normoactive bowel sounds, : No Renal angle tenderness; EXTREMITIES: No edema, no clubbing, MUSCULOSKELETAL: no muscle wasting NEURO: Awake; no lateralizing signs. SKIN: No Rash PSYCH; Flat affect Assessment & Plan Assessment/Plan (1) ARSEN (acute kidney injury): (2) Hypercalcemia: PLAN: Plan Patient is a 49-year-old gentleman who was admitted with worsening kidney function from prior to undergoing CT of his coronaries. 1. Acute kidney injury ? Superimposed on chronic kidney disease stage III baseline creatinine 1.6, creatinine on admission was 3.3. Patient admitted to regular nursing floor started on IV fluids.CT of the abdomen and pelvis obtained as part of patient management did not reveal any renal stones no hydronephrosis. Consult was placed to nephrology as outpatient 2. Hypercalcemia ? Patient did receive IV fluid resuscitation as well as pamidronate. Ordered urine protein and serum electrophoresis as part of patient's management 3. Cardiomyopathy ? Recent echo demonstrated EF of 45% with mild LV concentric hypertrophy 4. Class III obesity with BMI of 71.3 ? Complicating care; Weight loss advised. 5. Hypothyroidism ? Patient is on levothyroxine home dose continued 6. Diabetes mellitus type II -patient's oral hypoglycemics held. Placed on long acting insulin, Accu-Cheks a.c. and at bedtime and covered with sliding scale insulin 7. Hypertension ? Blood pressure controlled, home medications continued with dose adjustment as needed 8. DVT prophylaxis ? SC heparin Time spent in the patient's overall evaluation,decision-making process, review of diagnostic data, adjustment of management, discussion with other providers, nursing nursing and ancillary staff involved in patient's care documentation, 52 Minutes Charges/Coding Visit Charges Inpatient E&M: 24219 Subs Hosp L3 06/15/24 1133 <Electronically signed by Hipolito Jackson MD> Cosigner Signature (if applicable): CC: ~ Signed [facility] Work Phone: 1(451) 905-356404-05-2025 Progress note [facility] Medical Records Department [address] [place] [address] Progress Note - Hospitalist 06/15/24 0737 MR#: [id number] Acct: [id number] Name: ANDRACHRISTA CATY Rep #:[id number] 1 : 1975 49 From: Hipolito Jackson MD PCP: Jordana Baez, [facility], [employer] Statu s:ADM IN Location: MS3 [id number] Reason for Visit Reason for Visit: Diagnoses Hypercalcemia (06/14/24) Acute kidney failure, unspecified (06/14/24) Subjective Subjective Patient is a 49-year-old gentleman who was admitted with worsening kidney function from prior to undergoing CT of his coronaries. Objective Data Objective Data Vital Signs: Vital Signs Temp Pulse Resp BP Pulse Ox O2 Del Method 97.7 F L 93 16 114/67 95 Room Air 06/15/24 06:28 06/15/24 06:28 06/15/24 06:28 06/15/24 06:28 06/15/24 06:28 06/15/24 06:28 Oxygen Delivery Method Room Air Weight: 226 kg Body Mass Index (BMI) 71.3 Intake & Output: Intake and Output for Last 24 Hours 06/13/24 06/14/24 06/15/24 23:59 23:59 23:59 Intake Total 1500 / 1500 1600 / 1600 Output Total 600 / 1600 1725 / 1725 Balance 900 / -100 -125 / -125 Lab / Micro Data 06/15/24 05:09 06/15/24 05:09 Labs: Laboratory Results - last 24 hr 06/14/24 14:37: WBC 4.2 L, RBC 4.30 L, Hgb 14.2, Hct 39.7 L, MCV 92.3, MCH 33.0 H, MCHC 35.8, RDW Std Deviation 55.8 H, RDW Coeff of Syed 16.7 H, Plt Count 128 L, MPV 9.1, Immature Gran % (Auto) 0.200, Neut % (Auto) 67.0, Lymph % (Auto) 16.6L, [place] % (Auto) 11.1 H, Eos % (Auto) 4.6, Baso % (Auto) 0.5, Absolute Neuts (auto) 2.8, Absolute Lymphs (auto) 0.69 L, Nucleated RBC % 0, Sodium 131 L, Potassium 4.3, Chloride 99, Carbon Dioxide 18.6 L, Anion Gap 13, BUN 50 H, Creatinine 3.30 H, Estim Creat Clear Calc 50.83, Est GFR (MDRD) Non-Af 22 L, BUN/Creatinine Ratio 15.3, Glucose 222 H, Calcium 14.0H*, Total Bilirubin 0.70,Direct Bilirubin 0.34 H, AST 59 H, ALT 41, Alkaline Phosphatase 172 H, Tota l Protein 7.4, Albumin 4.1, Globulin 3.3 06/14/24 17:45: Urine Color Yellow, Urine Clarity Clear, Urine pH 6.0, Ur Specific [place] 1.020, Urine Protein 30 H, Urine Glucose (UA) 1000 H, Urine Ketones Negative, Urine Occult Blood 25 H, UrineNitrite Negative, Urine Bilirubin Negative, Urine Urobilinogen Normal, Ur Leukocyte Esterase Negative, Urine RBC 0-5 SEEN, Urine WBC 0 SEEN, Ur Squamous Epith Cells 0-5 SEEN, Amorphous Sediment 1+ URATE, Urine Bacteria 0 SEEN, Urine Mucus 0 SEEN 06/14/24 17:54: POC Glucose 220 H 06/14/24 21:27: POC Glucose 219 H 06/15/24 05:09: WBC 4.5, RBC 3.94 L, Hgb 12.9 L, Hct 37.1 L, MCV 94.2 H, MCH 32.7 H, MCHC 34.8, RDWStd Deviation 57.1 H, RDW Coeff of Syed 16.7 H, Plt Count 125 L, MPV 9.9, Immature Gran % (Auto) 0.400, Neut % (Auto) 67.5, Lymph % (Auto)18.1 L, [place] % (Auto) 9.8, Eos % (Auto) 3.8, Baso % (Auto) 0.4, Absolute Neuts (auto) 3.0, Absolute Lymphs (auto) 0.81 L, Nucleated RBC % 0, Sodium 132 L, Potassium 4.4, Chloride 102, Carbon Dioxide 17.7 L, Anion Gap 13, BUN 44 H, Creatinine 2.97 H, Estim Creat Clear Calc 56.48, Est GFR (MDRD) Non-Af 25 L, BUN/Creatinine Ratio 14.8, Glucose 204 H, Calcium 12.4H, Vitamin D 25-Hydroxy 21.5 L 06/15/24 06:23: POC Glucose 208 H Radiography Diagnostic Testing: Radiology Impression Abdomen/Pelvis CT 06/14/24 16:45 IMPRESSION: Patchy ill-defined mainly perihilar appearing ground-glass opacities at the bilateral visualized lung bases may be inflammatory or infectious or less likely pulmonary edema, clinically correlate. No pleural effusion seen. Splenomegaly 17.4 cm. Reading Location: [facility] Physical Exam Narrative GENERAL: cooperative HEENT: Atraumatic; normocephalic EYES; Anicteric, Normal Conjunctiva NECK; supple, normal thyroid, RESPIRATORY: Diminished to auscultation CARDIOVASCULAR: Regular S1 S2, GI: soft, normoactive bowel sounds, : No Renal angle tenderness; EXTREMITIES: No edema, no clubbing, MUSCULOSKELETAL: no muscle wasting NEURO: Awake; no lateralizing signs. SKIN: No Rash PSYCH; Flat affect Assessment & Plan Assessment/Plan (1) ARSEN (acute kidney injury): (2) Hypercalcemia: PLAN: Plan Patient is a 49-year-old gentleman who was admitted with worsening kidney function from prior to undergoing CT of his coronaries. 1. Acute kidney injury ? Superimposed on chronic kidney disease stage III baseline creatinine 1.6, creatinine on admissionwas 3.3. Patient admitted to regular nursing floor started on IV fluids.CT of the abdomen and pelvis obtained as part of patient management did not reveal any renal stones no hydronephrosis. Consult was placed to nephrology as outpatient 2. Hypercalcemia ? Patient did receive IV fluid resuscitation as well as pamidronate. Ordered urine protein and serum electrophoresis as part of patient's management 3. Cardiomyopathy ? Recent echo demonstrated EF of 45% with mild LV concentric hypertrophy 4. Class III obesity with BMI of 71.3 ? Complicating care; Weight loss advised. 5. Hypothyroidism ? Patient is on levothyroxine home dose continued 6. Diabetes mellitus type II -patient's oral hypoglycemics held. Placed on long acting insulin, Accu-Cheks a.c. and at bedtime and covered with sliding scale insulin 7. Hypertension ? Blood pressure controlled, home medications continued with dose adjustment as needed 8. DVT prophylaxis ? SC heparin Time spent in the patient's overall evaluation,decision-making process, review of diagnostic data, adjustment of management, discussion with other providers, nursing nursing and ancillary staff involved in patient's care documentation, 52 Minutes Charges/Coding Visit Charges Inpatient E&M: 98554 [facility] Hosp 06/15/24 1133 Cosigner Signature (if applicable): CC: ~ Signed [facility]04-04-2025 History and physical note Author Grecia Marroquin [facility] Note Date/Time June 14, 2024 6:59 pm [facility] Medical Records Department [address] [place] [address] H&P Exam - Hospitalist 06/14/24 1603 MR#: [id number] Acct: [id number] Name: CHRISTA SILVERMAN Rep #:[id number] 2 : 1975 49 From: Grecia Marroquin MD PCP: ANAM Caputo, [employer] Statu s:ADM IN Location: [facility] [id number] HPI - General General Date of Admission: 06/14/24 Date of Service: 06/14/24 Chief Complaint: abnormal labs HPI Narrative CHRISTA SILVERMAN, is a 49 M with a PMH as outlined including CKD, ARGUETA and being worked up for new onset cardiomyopathy who presents via the ED on 06/14/2024 o/a of abnormal labs. 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 He says he does have a history of underlying CKD was also recently diagnosed with nonalcoholic steatohepatitis and follows up with gastroenterology. He had labs done today which showed creatinine of 3.3 and calcium was also elevated at 14. He denied any nausea, vomiting or diarrhea. He denied any diuretic use and was recently started on Farxiga by his director of neurology on account of cardiomyopathy. He is due to have an echo on outpatient basis to further evaluate the cardiomyopathy. He denied any fever orchills, chest pain, palpitations, dizziness or any other symptoms. Review of systems otherwise negative. Vitals in the ED were blood pressure 130/88, pulse rate of 108, respiratory rateof 18 and temperature of 91.8 Fahrenheit. He was saturating at 98% on room air. CBC showed hemoglobin of 14.2 with WBC of 4.2 and platelets of 128. Chemistry showed sodium of 131 with potassium of 4.3, bicarb of 18.6 and anion gap of 13. Creatinine was 3.3 and calcium was 14. Total bilirubin was 0.7. AST was 59 andALT was 41 with ALP of 172. He has been admitted to manage for ARSEN on CKD and hypercalcemia of unclear etiology. [facility] Medical History History of chicken pox Chronic kidney disease Pneumonia History of steroid therapy History of renal disease Fatty liver Former smoker BiPAP (biphasic positive airway pressure) dependence Sleep apnea History of edema Elevated liver enzymes COVID-19 Vitamin D deficiency Thyroid disease Hyperlipidemia Hypertension Diabetes Home Medications ?Medication ?Instructions ?Recorded ?Last Taken ?Type aspirin 81 mg chewable tablet 81 mg PO DAILY@0800 hear t health 08/11/16 04/15/18 History magnesium oxide 250 mg PO BID supplement 06/2904/15/18 History lancets 28 gauge (Easy Touch #100 ea 02/27/20 Unknown Rx Lancets) OneTouch Verio Flex meter #1 ea 06/29/20 Unknown Rx (blood-glucose meter) atorvastatin 20 mg tablet 20 mg PO QHS cholestoral 01/31 Unknown History BD Insulin Syringe 1 mL 25 gauge x #100 ea 05/24/21 Un known Rx 5/8 (insulin syringe-needle U-100) insulin syringe-needle U-100 0.5 #100 ea 06/02/22 Unkn own Rx mL 31 gauge x 5/16 (BD Insulin Syringe Ultra-Fine) OneTouch Verio test strips (blood #100 ea 08/25/22 Unk nown Rx sugar diagnostic) scopolamine base 1 mg over 3 days 1 patch transdermal Q72H PRN 01/26/23 Unknown History transdermal patch nausea and vomiting gabapentin 300 mg capsule 300 mg PO TID PRN neuropathy #90 04/10/23 Unknown Rx caps pen needle, diabetic 32 gauge x #100 ea 07/20/23 Unkno wn Rx 5/32 (BD Ultra-Fine Shani Pen Needle) insulin syringe-needle U-100 1 mL #100 ea 08/31/23 Unk nown Rx 31 gauge x 5/16 (BD Insulin Syringe Ultra-Fine) pen needle, diabetic 32 gauge x #50 ea 08/31/23 Unknow n Rx 5/32 (BD Ultra-Fine Shani Pen Needle) ursodiol 300 mg capsule 300 mg PO BID #60 caps 01/03 Unknown Rx lisinopril 20 mg tablet 20 mg PO QDAY 01/15/24 Unkno wn History nebulizer tubing kits #1 ea 02/05/24 Unknown Rx neublizer machine #1 ea 02/05/24 Unknown Rx lancets 33 gauge (OneTouch Delica #100 ea 02/22/24 Unk nown Rx Plus Lancet) albuterol sulfate 2.5 mg/3 mL 2.5 mg (3 mL) inhalation Q4-6H PRN 03/15/24 Unknown Rx (0.083 %) solution for nebulization shortness of breat h or wheezing #180 mL levothyroxine 175 mcg tablet 175 mcg PO DAILY #30 tabs 04/02/24 Unknown Rx cholecalciferol (vitamin D3) 25 2,000 unit PO DAILY Unknown History mcg (1,000 unit) capsule (Vitamin D3) fluticasone furoate 200 1 inh inhalation Q24H #30 ea 04/30/24 Unknown Rx mcg/actuation blister powder for inhalation (Arnuity Ellipta) tirzepatide 10 mg/0.5 mL 10 mg subcut QWEEK 04/30/24 Unknown History subcutaneous pen injector (Darekunjaro) dapagliflozin propanediol 10 mg 10 mg PO QDAY #90 tabs 05/07/24 Unknown Rx tablet (Farxiga) metoprolol succinate 200 mg 200 mg PO QDAY #90 tabs Unknown Rx tablet,extended release 24 hr blood sugar diagnostic (Blood #100 ea 06/12/24 Unknown Rx Glucose Test strips) insulin regular hum U-500 conc 500 See Rx Instructions subcut BID 06/14/24 Unknown History unit/mL(3 mL) subcut pen (Humulin R U-500 (Conc) Insulin Kwikpen) Allergy/AdvReac Type Severity Reaction Status Date / Time wool AdvReac Severe Hives Verified 06/14/24 14:14 Family History Grandfather Family history of heart disease Family history of hypertension Hyperlipidemia Hypertension Diabetes Mother Family history of high cholesterol COPD (chronic obstructive pulmonary disease) Family history of hypertension in mother Grandfather Family history of high cholesterol Sleep apnea Aunt Family history of hypertension Sister Cancer Father , Diabetes Diabetes Hypertension Hyperlipidemia Surgical History History of lung biopsy History of esophagogastroduodenoscopy (EGD) History of surgery history of gallbladder sugery History of tonsillectomy and adenoidectomy Social History household members: family housing: house current occupational status: employed current occupational exposures/hazards: Yes Smoking Status: Former smoker Tobacco: How many years used: 2 alcohol intake: never substance use type: does not use caffeine: Yes Type: coffee Number of servings: 2 ROS Constitutional Constitutional: Denies anorexia, chills, fatigue, fever(s), malaise or weakness Eyes Eyes: Denies change in vision ENT HEENT: Denies dysphagia, headache(s) or sore throat Cardiovascular Cardiovascular: Denies chest pain, dyspnea on exertion, edema, lightheadedness, orthopnea, palpitations, paroxysmal nocturnal dyspnea, rapid heart rate or syncope Respiratory/Chest Respiratory/Chest: Denies cough, dyspnea or shortness of breath at rest Gastrointestinal Gastrointestinal: Denies constipation, nausea or vomiting Genitourinary Genitourinary: Denies burning urination or dysuria Neurologic Neurologic: Denies confusion, dizziness, focal weakness, headache(s), seizure- like activity, seizures or syncope Psychiatric Psychiatric: Denies anxiety or depression Endocrine Endocrinology: Denies change in body appearance Vital Signs Vital Signs Vital Signs: 06/14/24 14:15 06/14/24 14:38 Temperature 97.8 F Temperature Source Oral Pulse Rate 108 H Respiratory Rate 18 Respiratory Effort Normal Respiratory Pattern Normal Blood Pressure 130/85 H Blood Pressure Mean 100 Pulse Ox 98 Oxygen Delivery Method Room Air Weight Weight: 498 lb 3.915 oz Body Mass Index (BMI) 71.4 Physical Exam Const alert, oriented x3 and no apparent distress Constitutional Narrative: class III obesity, with BMI of 71.5 General Appearance: cooperative HEENT normocephalic, head/scalp atraumatic, hearing grossly normal bilaterally and moist oral mucous membranes Mouth: oral and palatal mucosa normal Eyes PERRL, EOMs intact bilaterally and conjunctivae normal Neck no lymphadenopathy and supple Resp normal respiratory effort, no retractions, no use of accessory muscles and clearto auscultation bilaterally GI normal to inspection, nondistended, normoactive bowel sounds, soft to palpation,non-tender and non-distended Extremity normal to inspection, full ROM and no clubbing, cyanosis or edema Neuro oriented x3, CN's II-XII intact bilaterally, moves all extremities and no focal motor deficits Sensorium / Orientation: awake and alert Motor Exam: strength 5/5 throughout Psych affect normal Results Lab / Micro Data 06/14/24 14:37 06/14/24 14:37 Labs: Laboratory Results - last 24 hr 06/14/24 14:37: WBC 4.2 L, RBC 4.30 L, Hgb 14.2, Hct 39.7 L, MCV 92.3, MCH 33.0 H, MCHC 35.8, RDW Std Deviation 55.8 H, RDW Coeff of Syed 16.7 H, Plt Count 128 L, MPV 9.1, Immature Gran % (Auto) 0.200, Neut % (Auto) 67.0, Lymph % (Auto) 16.6L, [place] % (Auto) 11.1 H, Eos % (Auto) 4.6, Baso % (Auto) 0.5, Absolute Neuts (auto) 2.8, Absolute Lymphs (auto) 0.69 L, Nucleated RBC % 0, Sodium 131 L, Potassium 4.3, Chloride 99, Carbon Dioxide 18.6 L, Anion Gap 13, BUN 50 H, Creatinine 3.30 H, Estim Creat Clear Calc 50.83, Est GFR (MDRD) Non-Af 22 L, BUN/Creatinine Ratio 15.3, Glucose 222 H, Calcium 14.0 H*, Total Bilirubin 0.70,Direct Bilirubin 0.34 H, AST 59 H, ALT 41, Alkaline Phosphatase 172 H, Total Protein 7.4, Albumin 4.1, Globulin 3.3 Assessment & Plan Assessment/Plan (1) ARSEN (acute kidney injury): (2) Hypercalcemia: PLAN: Plan #ARSEN on CKD with hypercalcemia * patient admitted o.a of abnormal labs. * he had come to have echo for cardiomyopathy. He had labs done which showed elevated Cr of 3.3. Baseline Cr is ~ 1.6 * says he has not had any problems with urination, diarrhea, nausea or vomiting. * consult nephrology * IV normal saline 150cc/hr x 2 bags * check CT of the abdomen/pelvis to rule out any obstructive pathology. * #Hypercalcemia * calcium is 14. Etiology is also not clear * is asymptomatic * hydrate aggresively with IVF * give a dose of zolendronic acid x 1 * will not give lasix due to ARSEN on CKD * #Cardiomyopathy * patient had been apparently complaining of shortness of breath and so followed up with cardiology. Has known EF of 45% with stage 1 diastolic dysfunction and mild LV concentric hypertrophy * to follow up with cardiology on outpatient basis * # Type 2 diabetes mellitus * Hold Farxiga. This was recently started. On Lantus. Insulin sliding scale. Checks ACH S. * on mounjaro weekly * #Hypertension: hold lisinopril due to ARSEN on CKD. #Hypothyroidism: on synthroid Class III obesity: BMI is 71.5. Complicates acute care, expected recovery and prognosis DVT prophylaxis: lovenox, renally dosed CODE STATUS * Patient counseled extensively about different types of CODE STATUS including full code, DNR CCA and DNR CCA. Patient elects to be full code. * Total tnrl-co-xowr time 16 minutes. Charges/Coding Visit Charges Inpatient E&M: 33244 Init Hosp L3 Procedures Hospitalists Procedures: 17218 Advncd Care Plan 30 Min 06/14/24 1130 <Electronically signed by Grecia Marroquin MD> Cosigner Signature (if applicable): CC: ANAM [employer] Jordana Baez; Dr. Grecia Marroquin MD~ Signed [facility] Work Phone: 1(187) 594-840904-04-2025 History and physical note [facility] Medical Records Department [address] [place] [address] H&P Exam - Hospitalist 06/14/24 1603 MR#: [id number] Acct: [id number] Name: CHRISTA SILVERMAN Rep #:[id number] 2 : 1975 49 From: Grecia Marroquin MD PCP: ANAM Caputo, [employer] Statu s:ADM IN Location: [facility] [id number] HPI - General General Date of Admission: 06/14/24 Date of Service: 06/14/24 Chief Complaint: abnormal labs HPI Narrative CHRISTA SILVERMAN, is a 49 M with a PMH as outlined including CKD, ARGUETA and being worked up for new onset cardiomyopathy who presents via the ED on 06/14/2024 o/a of abnormal labs. 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 He says he does have a history of underlying CKD was also recently diagnosed with nonalcoholic steatohepatitis and follows up with gastroenterology. He had labs done today which showed creatinine of 3.3 and calcium was also elevated at 14. He denied any nausea, vomiting or diarrhea. He denied any diuretic use and was recently started on Farxiga by his director of neurology on account of cardiomyopathy. He is due to have an echo on outpatient basis to further evaluate the cardiomyopathy. He denied any fever orchills, chest pain, palpitations, dizziness or any other symptoms. Review of systems otherwise negative. Vitals in the ED were blood pressure 130/88, pulse rate of 108, respiratory rateof 18 and temperature of 91.8 Fahrenheit. He was saturating at 98% on room air. CBC showed hemoglobin of 14.2 with WBC of 4.2 and platelets of 128. Chemistry showed sodium of 131 with potassium of 4.3, bicarb of 18.6 and anion gap of 13. Creatinine was 3.3 and calcium was 14. Total bilirubin was 0.7. AST was 59 andALTwas 41 with ALP of 172. He has been admitted to manage for ARSEN on CKD and hypercalcemia of unclear etiology. [facility] Medical History History of chicken pox Chronic kidney disease Pneumonia History of steroid therapy History of renal disease Fatty liver Former smoker BiPAP (biphasic positive airway pressure) dependence Sleep apnea History of edema Elevated liver enzymes COVID-19 Vitamin D deficiency Thyroid disease Hyperlipidemia Hypertension Diabetes Home Medications ?Medication ?Instructions ?Recorded ?Last Taken ?Type aspirin 81 mg chewable tablet 81 mg PO DAILY@0800 hear t health 08/11/16 04/15/18 History magnesium oxide 250 mg PO BID supplement 06/2904/15/18 History lancets 28 gauge (Easy Touch #100 ea 02/27/20 Unknown Rx Lancets) OneTouch Verio Flex meter #1 ea 06/29/20 Unknown Rx (blood-glucose meter) atorvastatin 20 mg tablet 20 mg PO QHS cholestoral 01/31 Unknown History BD Insulin Syringe 1 mL 25 gauge x #100 ea 05/24/21 Un known Rx 5/8 (insulin syringe-needle U-100) insulin syringe-needle U-100 0.5 #100 ea 06/02/22 Unkn own Rx mL 31 gauge x 5/16 (BD Insulin Syringe Ultra-Fine) OneTouch Verio test strips (blood #100 ea 08/25/22 Unk nown Rx sugar diagnostic) scopolamine base 1 mg over 3 days 1 patch transdermal Q72H PRN 01/26/23 Unknown History transdermal patch nausea and vomiting gabapentin 300 mg capsule 300 mg PO TID PRN neuropathy #90 04/10/23 Unknown Rx caps pen needle, diabetic 32 gauge x #100 ea 07/20/23 Unkno wn Rx 32 (BD Ultra-Fine Shani Pen Needle) insulin syringe-needle U-100 1 mL #100 ea 08/31/23 Unk nown Rx 31 gauge x 5/16 (BD Insulin Syringe Ultra-Fine) pen needle, diabetic 32 gauge x #50 ea 08/31/23 Unknow n Rx (BD Ultra-Fine Shani Pen Needle) ursodiol 300 mg capsule 300 mg PO BID #60 caps 01/03 Unknown Rx lisinopril 20 mg tablet 20 mg PO QDAY 01/15/24 Unkno wn History nebulizer tubing kits #1 ea 02/05/24 Unknown Rx neublizer machine #1 ea 02/05/24 Unknown Rx lancets 33 gauge (OneTouch Delica #100 ea 02/22/24 Unk nown Rx Plus Lancet) albuterol sulfate 2.5 mg/3 mL 2.5 mg (3 mL) inhalation Q4-6H PRN 03/15/24 Unknown Rx (0.083 %) solution for nebulization shortness of breat h or wheezing #180 mL levothyroxine 175 mcg tablet 175 mcg PO DAILY #30 tabs 04/02/24 Unknown Rx cholecalciferol (vitamin D3) 25 2,000 unit PO DAILY Unknown History mcg (1,000 unit) capsule (Vitamin D3) fluticasone furoate 200 1 inh inhalation Q24H #30 ea 04/30/24 Unknown Rx mcg/actuation blister powder for inhalation (Arnuity Ellipta) tirzepatide 10 mg/0.5 mL 10 mg subcut QWEEK 04/30/24 Unknown History subcutaneous pen injector (Vignesh) dapagliflozin propanediol 10 mg 10 mg PO QDAY #90 tabs 05/07/24 Unknown Rx tablet (Farxiga) metoprolol succinate 200 mg 200 mg PO QDAY #90 tabs Unknown Rx tablet,extended release 24 hr blood sugar diagnostic (Blood #100 ea 06/12/24 Unknown Rx Glucose Test strips) insulin regular hum U-500 conc 500 See Rx Instructions subcut BID 06/14/24 Unknown History unit/mL(3 mL) subcut pen (Humulin R U-500 (Conc) Insulin Kwikpen) Allergy/AdvReac Type Severity Reaction Status Date / Time wool AdvReac Severe Hives Verified 06/14/24 14:14 Family History Grandfather Family history of heart disease Family history of hypertension Hyperlipidemia Hypertension Diabetes Mother Family history of high cholesterol COPD (chronic obstructive pulmonary disease) Family history of hypertension in mother Grandfather Family history of high cholesterol Sleep apnea Aunt Family history of hypertension Sister Cancer Father , Diabetes Diabetes Hypertension Hyperlipidemia Surgical History History of lung biopsy History of esophagogastroduodenoscopy (EGD) History of surgery history of gallbladder sugery History of tonsillectomy and adenoidectomy Social History household members: family housing: house current occupational status: employed current occupational exposures/hazards: Yes Smoking Status: Former smoker Tobacco: How many years used: 2 alcohol intake: never substance use type: does not use caffeine: Yes Type: coffee Number of servings: 2 ROS Constitutional Constitutional: Denies anorexia, chills, fatigue, fever(s), malaise or weakness Eyes Eyes: Denies change in vision ENT HEENT: Denies dysphagia, headache(s) or sore throat Cardiovascular Cardiovascular: Denies chest pain, dyspnea on exertion, edema, lightheadedness, orthopnea, palpitations, paroxysmal nocturnal dyspnea, rapid heart rate or syncope Respiratory/Chest Respiratory/Chest: Denies cough, dyspnea or shortness of breath at rest Gastrointestinal Gastrointestinal: Denies constipation, nausea or vomiting Genitourinary Genitourinary: Denies burning urination or dysuria Neurologic Neurologic: Denies confusion, dizziness, focal weakness, headache(s), seizure- like activity, seizures or syncope Psychiatric Psychiatric: Denies anxiety or depression Endocrine Endocrinology: Denies change in body appearance Vital Signs Vital Signs Vital Signs: 06/14/24 14:15 06/14/24 14:38 Temperature 97.8 F Temperature Source Oral Pulse Rate 108 H Respiratory Rate 18 Respiratory Effort Normal Respiratory Pattern Normal Blood Pressure 130/85 H Blood Pressure Mean 100 Pulse Ox 98 Oxygen Delivery Method Room Air Weight Weight: 498 lb 3.915 oz Body Mass Index (BMI) 71.4 Physical Exam Const alert, oriented x3 and no apparent distress Constitutional Narrative: class III obesity, with BMI of 71.5 General Appearance: cooperative HEENT normocephalic, head/scalp atraumatic, hearing grossly normal bilaterally and moist oral mucous membranes Mouth: oral and palatal mucosa normal Eyes PERRL, EOMs intact bilaterally and conjunctivae normal Neck no lymphadenopathy and supple Resp normal respiratory effort, no retractions, no use of accessory muscles and clearto auscultation bilaterally GI normal to inspection, nondistended, normoactive bowel sounds, soft to palpation,non-tender and non-distended Extremity normal to inspection, full ROM and no clubbing, cyanosis or edema Neuro oriented x3, CN's II-XII intact bilaterally, moves all extremities and no focal motor deficits Sensorium / Orientation: awake and alert Motor Exam: strength 5/5 throughout Psych affect normal Results Lab / Micro Data 06/14/24 14:37 06/14/24 14:37 Labs: Laboratory Results - last 24 hr 06/14/24 14:37: WBC 4.2 L, RBC 4.30 L, Hgb 14.2, Hct 39.7 L, MCV 92.3, MCH 33.0 H, MCHC 35.8, RDW Std Deviation 55.8 H, RDW Coeff of Syed 16.7 H, Plt Count 128 L, MPV 9.1, Immature Gran % (Auto) 0.200, Neut % (Auto) 67.0, Lymph % (Auto) 16.6L, [place] % (Auto) 11.1 H, Eos % (Auto) 4.6, Baso % (Auto) 0.5, Absolute Neuts (auto) 2.8, Absolute Lymphs (auto) 0.69 L, Nucleated RBC % 0, Sodium 131 L, Potassium 4.3, Chloride 99, Carbon Dioxide 18.6 L, Anion Gap 13, BUN 50 H, Creatinine 3.30 H, Estim Creat Clear Calc 50.83, Est GFR (MDRD) Non-Af 22 L, BUN/Creatinine Ratio 15.3, Glucose 222 H, Calcium 14.0H*, Total Bilirubin 0.70,Direct Bilirubin 0.34 H, AST 59 H, ALT 41, Alkaline Phosphatase 172 H, Tota l Protein 7.4, Albumin 4.1, Globulin 3.3 Assessment & Plan Assessment/Plan (1) ARSEN (acute kidney injury): (2) Hypercalcemia: PLAN: Plan #ARSEN on CKD with hypercalcemia * patient admitted o.a of abnormal labs. * he had come to have echo for cardiomyopathy. He had labs done which showed elevated Cr of 3.3. Baseline Cr is ~ 1.6 * says he has not had any problems with urination, diarrhea, nausea or vomiting. * consult nephrology * IV normal saline 150cc/hr x 2 bags * check CT of the abdomen/pelvis to rule out any obstructive pathology. * #Hypercalcemia * calcium is 14. Etiology is also not clear * is asymptomatic * hydrate aggresively with IVF * give a dose of zolendronic acid x 1 * will not give lasix due to ARSEN on CKD * #Cardiomyopathy * patient had been apparently complaining of shortness of breath and so followed up with cardiology. Has known EF of 45% with stage 1 diastolic dysfunction and mild LV concentric hypertrophy * to follow up with cardiology on outpatient basis * # Type 2 diabetes mellitus * Hold Farxiga. This was recently started. On Lantus. Insulin sliding scale. Checks ACH S. * on mounjaro weekly * #Hypertension: hold lisinopril due to ARSEN on CKD. #Hypothyroidism: on synthroid Class III obesity: BMI is 71.5. Complicates acute care, expected recovery and prognosis DVT prophylaxis: lovenox, renally dosed CODE STATUS * Patient counseled extensively about different types of CODE STATUS including full code, DNR CCA and DNR CCA. Patient elects to be full code. * Total foom-eq-icpj time 16 minutes. Charges/Coding Visit Charges Inpatient E&M: 44665 Init Hosp L3 Procedures Hospitalists Procedures: 92233 Advncd Care Plan 30 Min 06/14/24 5856 Cosigner Signature (if applicable): CC: ANAM [employer]Fran Baez; Dr. 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 Elizabeth for abnormal labs ordered by cardiology yesterday and preparations for CT coronaries. Patient history of diabetes stage III chronic disease at baseline, sleep apnea. He has been worked up by his ged teacher due to his dyspnea had an echocardiogram in March EF was down from review records 45%. He had previous mild calcificationof coronaries. Refer to cardiology Dr. Maxwell he saw him in April, states hadFarxiga added and his metoprolol increased to 200 mg. He was having lab work for plans for CT coronaries. He does have history of ARGUETA diagnosed a year ago but followed by Dr. Guzman. He denies recent vomiting or diarrhea. He is making normal urine. Denies brown urine or any foamy urine. Denies any chest pains or palpitations. He reports lab work with elevated calcium of 14 and elevated creatinine. No cancer history reported 2 small lung nodules in the past. Reviewing records blood yesterday creatinine 3.36 GFR of 21 this is up from creatinine 1.6 GFR 47 April 23, 2024. Potassium was normal. Calcium was 14. Prior similar symptoms: No PFSH PFSH Medical History History of chicken pox Chronic kidney disease Pneumonia History of steroid therapy History of renal disease Fatty liver Former smoker BiPAP (biphasic positive airway pressure) dependence Sleep apnea History of edema Elevated liver enzymes COVID-19 Vitamin D deficiency Thyroid disease Hyperlipidemia Hypertension Diabetes Home Medications ?Medication ?Instructions ?Recorded ?Last Taken ?Type aspirin 81 mg chewable tablet 81 mg PO DAILY@0800 [facility] 08/11/16 04/15/18 History magnesium oxide 250 mg PO BID supplement 06/2904/15/18 History lancets 28 gauge (Easy Touch #100 ea 02/27/20 Unknown Rx Lancets) OneTouch Verio Flex meter #1 ea 06/29/20 Unknown Rx (blood-glucose meter) atorvastatin 20 mg tablet 20 mg PO QHS cholestoral 01/31 Unknown History BD Insulin Syringe 1 mL 25 gauge x #100 ea 05/24/21 Un known Rx 5/8 (insulin syringe-needle U-100) insulin syringe-needle U-100 0.5 #100 ea 06/02/22 Unkn own Rx mL 31 gauge x 5/16 (BD Insulin Syringe Ultra-Fine) OneTouch Verio test strips (blood #100 ea 08/25/22 Unk nown Rx sugar diagnostic) scopolamine base 1 mg over 3 days 1 patch transdermal Q72H PRN 01/26/23 Unknown History transdermal patch nausea and vomiting gabapentin 300 mg capsule 300 mg PO TID PRN neuropathy #90 04/10/23 Unknown Rx caps pen needle, diabetic 32 gauge x #100 ea 07/20/23 Unkno wn Rx 5/32 (BD Ultra-Fine Shani Pen Needle) insulin syringe-needle U-100 1 mL #100 ea 08/31/23 Unk nown Rx 31 gauge x 5/16 (BD Insulin Syringe Ultra-Fine) pen needle, diabetic 32 gauge x #50 ea 08/31/23 Unknow n Rx 5/32 (BD Ultra-Fine Shani Pen Needle) ursodiol 300 mg capsule 300 mg PO BID #60 caps 01/03 Unknown Rx lisinopril 20 mg tablet 20 mg PO QDAY 01/15/24 Unkno wn History nebulizer tubing kits #1 ea 02/05/24 Unknown Rx neublizer machine #1 ea 02/05/24 Unknown Rx lancets 33 gauge (OneTouch Delica #100 ea 02/22/24 Unk nown Rx Plus Lancet) albuterol sulfate 2.5 mg/3 mL 2.5 mg (3 mL) inhalation Q4-6H PRN 03/15/24 Unknown Rx (0.083 %) solution for nebulization shortness of breat h or wheezing #180 mL levothyroxine 175 mcg tablet 175 mcg PO DAILY #30 tabs 04/02/24 Unknown Rx cholecalciferol (vitamin D3) 25 2,000 unit PO DAILY Unknown History mcg (1,000 unit) capsule (Vitamin D3) fluticasone furoate 200 1 inh inhalation Q24H #30 ea 04/30/24 Unknown Rx mcg/actuation blister powder for inhalation (Arnuity Ellipta) tirzepatide 10 mg/0.5 mL 10 mg subcut QWEEK 04/30/24 Unknown History subcutaneous pen injector (Vignesh) dapagliflozin propanediol 10 mg 10 mg PO QDAY #90 tabs 05/07/24 Unknown Rx tablet (Farxiga) metoprolol succinate 200 mg 200 mg PO QDAY #90 tabs Unknown Rx tablet,extended release 24 hr blood sugar diagnostic (Blood #100 ea 06/12/24 Unknown Rx Glucose Test strips) insulin regular hum U-500 conc 500 See Rx Instructions subcut BID 06/14/24 Unknown History unit/mL(3 mL) subcut pen (Humulin R U-500 (Conc) Insulin Kwikpen) Allergy/AdvReac Type Severity Reaction Status Date / Time wool AdvReac Severe Hives Verified 06/14/24 14:14 Family History Grandfather Family history of heart disease Family history of hypertension Hyperlipidemia Hypertension Diabetes Mother Family history of high cholesterol COPD (chronic obstructive pulmonary disease) Family history of hypertension in mother Grandfather Family history of high cholesterol Sleep apnea Aunt Family history of hypertension Sister Cancer Father , Diabetes Diabetes Hypertension Hyperlipidemia Surgical History History of lung biopsy History of esophagogastroduodenoscopy (EGD) History of surgery history of gallbladder sugery History of tonsillectomy and adenoidectomy Social History household members: family housing: house current occupational status: employed current occupational exposures/hazards: Yes Smoking Status: Former smoker Tobacco: How many years used: 2 alcohol intake: never substance use type: does not use caffeine: Yes Type: coffee Number of servings: 2 ROS ROS ED Constitutional Constitutional ED: Denies chills, fever(s) or sweats ENT ENT ED: Denies sore throat Cardiovascular Cardiovascular: Denies chest pain, leg edema, palpitations or racing heartbeat Respiratory/Chest Respiratory/Chest: Denies cough, dyspnea or dyspnea on exertion Gastrointestinal Gastrointestinal: Denies abdominal pain, diarrhea, nausea or vomiting Genitourinary Genitourinary ED: Denies dysuria, hematuria or urinary frequency Musculoskeletal Musculoskeletal: Denies back pain, extremity pain or neck pain Integumentary Denies rash or wounds Neurologic Neurologic: Denies headache(s), paresthesias or weakness EXAM Physical Exam Const Vital Signs: 06/14/24 14:15 06/14/24 14:38 Temperature 97.8 F Temperature Source Oral Pulse Rate 108 H Respiratory Rate 18 Respiratory Effort Normal Respiratory Pattern Normal Blood Pressure 130/85 H Blood Pressure Mean 100 Pulse Ox 98 Oxygen Delivery Method Room Air Positive well nourished and well developed General Appearance ED: well developed and NAD HEENT Reports moist mucous membranes normocephalic and atraumatic Eyes General Eye ED: Yes normal appearance of both eyes Neck full ROM Chest Wall Chest: Negative for tenderness Resp normal respiratory effort and normal air movement Effort and Inspection: symmetric chest movement; Negative for respiratory distress Cardio regular rate, regular rhythm and no murmurs Peripheral Pulses: pulses 2+ throughout GI normal to inspection, nondistended, normoactive bowel sounds and non-tender Palpation: Negative for guarding or rebound tenderness present Extremity normal to inspection General Extremety ED: Negative for edema or tenderness General Extremity: Negative for edema Neuro oriented x3 and no sensory deficits noted Sensorium / Orientation: awake and alert Skin no rashes or lesions noted and no wounds MDM MDM MDM Narrative Medical decision making narrative: Interventions / MDM: Differential diagnosis: ARSEN, hypercalcemia, history of cardiomyopathy, history of Argueta, history of diabetes Diagnosis considered but do not suspect: DKA however gap is normal. My EKG interpretation: Sinus rate of 93, no ST or T wave changes. No peaked T waves or widened QRS. Imaging independently reviewed and interpreted by myself: N/A External documents reviewed: Echocardiogram April 08, 2024 EF of 45% stage I diastolic dysfunction. Cardiology note fibber [address] angiogram coronaries along with MRI cardiac. Labs from yesterday in the system with creatinine 3.36 GFR 21 with calcium 14. Test considered but not ordered:N/A ED course: Patient with ARSEN hypercalcemia outpatient yesterday recheck labs EKG sinus rhythm with no hyperkalemic changes. Labs creatinine 3.3 GFR 22 calcium 14, up from less than 2 months ago. Unclear reasons. Cardiomyopathy EF 45% in March we will start gentle fluids 500 cc bolus at night for hypercalcemia and his ARSEN. I discussed with hospitalist Dr. Marroquin for admission. Re-evaluation: stable Disposition discussed with patient/family/significant other: Patient Case discussed with consulting clinician: Hospitalist This note was generated with Mosaic dictation software. It may contain incorrectwords, spelling, and punctuation that were not noted in checking the note beforesigning. He was fine Lab Data Attestation: I reviewed the patient's lab results. Labs: Laboratory Results - last 24 hr 06/14/24 14:37 WBC 4.2 L RBC 4.30 L Hgb 14.2 Hct 39.7 L MCV 92.3 MCH 33.0 H MCHC 35.8 RDW Std Deviation 55.8 H RDW Coeff of Syed 16.7 H Plt Count 128 L MPV 9.1 Immature Gran % (Auto) 0.200 Neut % (Auto) 67.0 Lymph % (Auto) 16.6 L [place] % (Auto) 11.1 H Eos % (Auto) 4.6 Baso % (Auto) 0.5 Absolute Neuts (auto) 2.8 Absolute Lymphs (auto) 0.69 L Nucleated RBC % 0 Sodium 131 L Potassium 4.3 Chloride 99 Carbon Dioxide 18.6 L Anion Gap 13 BUN 50 H Creatinine 3.30 H Estim Creat Clear Calc 50.83 Est GFR (MDRD) Non-Af 22 L BUN/Creatinine Ratio 15.3 Glucose 222 H Calcium 14.0 H* Total Bilirubin 0.70 Direct Bilirubin 0.34 H AST 59 H ALT 41 Alkaline Phosphatase 172 H Total Protein 7.4 Albumin 4.1 Globulin 3.3 Discharge Plan Triage Chief Complaint: Abn Labs ED Provider: Mac Ortega Dx/Rx/DC Orders Clinical Impression: ARSEN (acute kidney injury), Hypercalcemia, ARGUETA (nonalcoholic steatohepatitis), Hyperglycemia due to diabetes mellitus Prescriptions: No Action (DME) lancets [Easy Touch Lancets] 28 gauge misc See Rx Instructions .ROUTE .MEDSUPPLY Qty: 100 6RF Rx Instructions: 3 times daily atorvastatin 20 mg tablet 20 mg PO QHS Patient Comments: TAKE 1 TABLET BY MOUTH AT BEDTIME (DME) BD Insulin Syringe 1 mL 25 gauge x 5/8 syringe See Rx Instructions .ROUTE .MEDSUPPLY Qty: 100 6RF Rx Instructions: bid gabapentin 300 mg capsule 300 mg PO TID PRN (Reason: neuropathy) Qty: 90 0RF scopolamine base 1 mg over 3 days patch 3 day 1 patch transdermal Q72H PRN (Reason: nausea and vomiting) (DME) nebulizer tubing kits See Rx Instructions .ROUTE .MEDSUPPLY Qty: 1 0RF Rx Instructions: As directed (DME) neublizer machine See Rx Instructions .ROUTE .MEDSUPPLY Qty: 1 0RF Rx Instructions: As directed lisinopril 20 mg tablet 20 mg PO QDAY Mounjaro 10 mg/0.5 mL pen injector 10 mg subcut QWEEK Arnuity Ellipta 200 mcg/actuation blister with device 1 inh inhalation Q24H Qty: 30 5RF metoprolol succinate 200 mg tablet extended release 24 hr 200 mg PO QDAY Qty: 90 3RF dapagliflozin propanediol [Farxiga] 10 mg tablet 10 mg PO QDAY Qty: 90 3RF aspirin 81 MG tablet,chewable 81 mg PO DAILY@0800 magnesium oxide 250 MG tablet 250 mg PO BID cholecalciferol (vitamin D3) [Vitamin D3] 25 mcg (1,000 unit) capsule 2,000 unit PO DAILY Humulin R U-500 (Conc) Kwikpen 500 unit/mL (3 mL) insulin pen See Rx Instructions subcut BID Rx Instructions: 65 am 180 pm subcutaneously twice a day; (DME) blood-glucose meter [OneTouch Verio Flex meter] [facility] [place] See Rx Instructions .ROUTE .MEDSUPPLY Qty: 1 0RF Rx Instructions: [place] directed [place] [place] insulin syringe-needle U-100 [BD Insulin Syringe Ultra-Fine] 0.5 mL 31 gauge x 5/16 syringe See Rx Instructions .ROUTE .MEDSUPPLY Qty: 100 6RF Rx Instructions: twice daily (DME) OneTouch Verio test strips Strip See Rx Instructions .ROUTE .MEDSUPPLY Qty: 100 8RF Rx Instructions: tid (DME) pen needle, diabetic [BD Ultra-Fine Shani Pen Needle] 32 gauge x 5/32 needle See Rx Instructions .Route Qty: 100 5RF Rx Instructions: BID (DME) insulin syringe-needle U-100 [BD Insulin Syringe Ultra-Fine] 1 mL 31 gauge x 5/16 syringe See Rx Instructions .Route Qty: 100 4RF Rx Instructions: As directed (DME) pen needle, diabetic [BD Ultra-Fine Shani Pen Needle] 32 gauge x 5/32 needle See Rx Instructions .ROUTE .MEDSUPPLY Qty: 50 5RF Rx Instructions: As directed ursodiol 300 mg capsule 300 mg PO BID Qty: 60 9RF (DME) lancets [OneTouch Delica Plus Lancet] 33 gauge misc See Rx Instructions .ROUTE .MEDSUPPLY Qty: 100 8RF Rx Instructions: tid albuterol sulfate 2.5 mg /3 mL (0.083 %) solution for nebulization 2.5 mg inhalation Q4-6H PRN (Reason: shortness of breath or wheezing) Qty: 180 3RF levothyroxine 175 mcg tablet 175 mcg PO DAILY Qty: 30 5RF (DME) Blood Glucose Test Strip See Rx Instructions .ROUTE .MEDSUPPLY Qty: 100 6RF Rx Instructions: test 3 times daily Primary Care Provider: Jordana Baez Referrals: Jordana Baez, [employer] [Primary Care Provider] - Print Language: [place] Disposition Disposition: Acute Care Hospital [facility] What to do if you have Problems For any increased pain, shortness of breath, bleeding, nausea or vomiting, chestpain, or any unexpected problems, contact your Primary Care Provider. Call [facility] ([phone]) or report to the closest Emergency Room. Call 911 if necessary. 06/14/24 1616 <Electronically signed by Mac Mejia> Cosigner Signature (if applicable): CC: ANAM [employer] Jordana Baez ~ Signed [facility] Work Phone: 1(675) 686-607504-04-2025 Evaluation note* Diagnosis Onset Date Resolution Status Admit Date Granulomatous lung disease acute June 14, 2024 4:08pm Hyperglycemia due to diabete s mellitus acute June 14, 2024 4:08pm ARGUETA (nonalcoholic steatohepatitis) chronic June 14, 2024 4:08pm Hypercalcemia deleted June 14, 2024 4:08pm ARSEN (acute kidney injury) inactive June 14, 2024 4:08pm Cardiomyopathy chronic June 1:01pm Coronary artery disease chronic A pril 2024 1:01pm Diabetes chronic July 10 1:01pm Dyslipidemia chronic July 10, 2024 1:01pm Left ventricular systolic dysfunction (LVSD) chronic July 10, 1:01pm Morbid obesity with BMI of 7 0 and over, adult chronic July 10, 2024 1:01pm SONIA (obstructive sleep apnea) chroni c July 10, 2024 1:01pm Chronic kidney disease chronic 2024 9:43am Diabetes chronic July 11, 2024 9:43am Essential (primary) hypertension chr onic July 11, 2024 9:43am Hypothyroidism chronic July 11 9:43am Microalbuminuria chronic July 11, 2024 9:43am Obesity chronic July 11, 2024 9:43am Granulomatous lung disease acute July 23, 2024 11:12am Hypoxemia acute July 23, 2024 11:12am Lung nodule seen on imaging study [facility] July 23, 2024 11:12am Obesity chronic July 23, 2024 11:12am SONIA (obstructive sleep apnea) chroni c July 23, 2024 11:12am Shortness of breath chronic July [id number] 11:12am Granulomatous lung disease acute August 07, 2024 8:45am Hypoxemia acute August 07, 2024 8:45am Lung nodule seen on imaging study [facility] August 07, 2024 8:45am Obesity chronic August 07, 2024 8:45am SONIA (obstructive sleep apnea) chroni c August 07, 2024 8:45am Shortness of breath chronic July 122024 8:45am Constipation acute August 22 025 10:29am Diabetes chronic August 22 10:29am ARGUETA (nonalcoholic steatohepatitis) chronic August 22, 2024 10:29am Granulomatous lung disease acute September 11, 2024 10:23am Hypoxemia acute September 11, 2024 10:23am Lung nodule seen on imaging study [facility] September 11, 2024 10:23am Obesity chronic September 11, 2024 10:23am SONIA (obstructive sleep apnea) chroni c September 11, 2024 10:23am Shortness of breath chronic September 11, 2024 10:23am [facility] Work Phone: 1(694) 611-462304-04-2025 Evaluation note* Diagnosis Onset Date Resolution Status Admit Date Granulomatous lung disease acute June 14, 2024 4:08pm Hyperglycemia due to diabete s mellitus acute June 14, 2024 4:08pm ARGUETA (nonalcoholic steatohepatitis) chronic June 14, 2024 4:08pm Hypercalcemia deleted June 14, 2024 4:08pm ARSEN (acute kidney injury) inactive June 14, 2024 4:08pm Cardiomyopathy chronic June 1:01pm Coronary artery disease chronic A pril 2024 1:01pm Diabetes chronic July 10 25 1:01pm Dyslipidemia chronic July 10, 2024 1:01pm Left ventricular systolic dysfunction (LVSD) chronic July 10, 025 1:01pm Morbid obesity with BMI of 7 0 and over, adult chronic July 10, 2024 1:01pm SONIA (obstructive sleep apnea) chroni c July 10, 2024 1:01pm Chronic kidney disease chronic Ma 2024 9:43am Diabetes chronic July 11, 2024 9:43am Essential (primary) hypertension chr onic July 11, 2024 9:43am Hypothyroidism chronic July 11 025 9:43am Microalbuminuria chronic July 11, 2024 9:43am Obesity chronic July 11, 2024 9:43am Granulomatous lung disease acute July 23, 2024 11:12am Hypoxemia acute July 23, 2024 11:12am Lung nodule seen on imaging study acute July 23, 2024 1 1:12am Obesity chronic July 23, 2024 11:12am SONIA (obstructive sleep apnea) chroni c July 23, 2024 11:12am Shortness of breath chronic July 112024 11:12am Granulomatous lung disease acute August 07, 2024 8:45am Hypoxemia acute August 07, 2024 8:45am Lung nodule seen on imaging study acute August 07, 2024 8 :45am Obesity chronic August 07, 2024 8:45am SONIA (obstructive sleep apnea) chroni c August 07, 2024 8:45am Shortness of breath chronic July 122024 8:45am Constipation acute August 22 025 10:29am Diabetes chronic August 22 10:29am ARGUETA (nonalcoholic steatohepatitis) chronic August 22, 2024 10:29am Granulomatous lung disease acute September 11, 2024 10:23am Hypoxemia acute September 11, 2024 10:23am Lung nodule seen on imaging study acute September 11, 2024 1 0:23am Obesity chronic September 11, 2024 10:23am SONIA (obstructive sleep apnea) chroni c September 11, 2024 10:23am Shortness of breath chronic September 11, 2024 10:23am Chest pain acute October 11 1:01pm Cardiomyopathy chronic October 1:01pm Coronary artery disease chronic A ug2024 1:01pm Diabetes chronic October 11 1:01pm Dyslipidemia chronic October 11, 2024 1:01pm Left ventricular systolic dysfunction (LVSD) chronic October 11 025 1:01pm Morbid obesity with BMI of 7 0 and over, adult chronic October 11, 2024 1:01pm SONIA (obstructive sleep apnea) chroni c October 11, 2024 1:01pm [place] [employer] Work Phone: 1(158) 646-176004-04-2025 Evaluation note* Diagnosis Onset Date Resolution Status Admit Date Granulomatous lung disease acute June 14, 2024 4:08pm Hyperglycemia due to diabete s mellitus acute June 14, 2024 4:08pm ARGUETA (nonalcoholic steatohepatitis) chronic June 14, 2024 4:08pm Hypercalcemia deleted June 14, 2024 4:08pm ARSEN (acute kidney injury) inactive June 14, 2024 4:08pm Cardiomyopathy chronic June 1:01pm Coronary artery disease chronic A pril 2024 1:01pm Diabetes chronic July 10 1:01pm Dyslipidemia chronic July 10, 2024 1:01pm Left ventricular systolic dysfunction (LVSD) chronic July 10, 2 025 1:01pm Morbid obesity with BMI of 7 0 and over, adult chronic July 10, 2024 1:01pm SONIA (obstructive sleep apnea) chroni c July 10, 2024 1:01pm Chronic kidney disease chronic Ma 2024 9:43am Diabetes chronic July 11, 2024 9:43am Essential (primary) hypertension chr onic July 11, 2024 9:43am Hypothyroidism chronic July 11, 2 025 9:43am Microalbuminuria chronic July 11, 2024 9:43am Obesity chronic July 11, 2024 9:43am Granulomatous lung disease acute July 23, 2024 11:12am Hypoxemia acute July 23, 2024 11:12am Lung nodule seen on imaging study acute July 23, 2024 1 1:12am Obesity chronic July 23, 2024 11:12am SONIA (obstructive sleep apnea) chroni c July 23, 2024 11:12am Shortness of breath chronic July [id number] 11:12am Granulomatous lung disease acute August 07, 2024 8:45am Hypoxemia acute August 07, 2024 8:45am Lung nodule seen on imaging study acute August 07, 2024 8 :45am Obesity chronic August 07, 2024 8:45am SONIA (obstructive sleep apnea) chroni c August 07, 2024 8:45am Shortness of breath chronic July [id number] 8:45am Constipation acute August 22 025 10:29am Diabetes chronic August 22 10:29am ARGUETA (nonalcoholic steatohepatitis) chronic August 22, 2024 10:29am Granulomatous lung disease acute September 11, 2024 10:23am Hypoxemia acute September 11, 2024 10:23am Lung nodule seen on imaging study acute September 11, 2024 1 0:23am Obesity chronic September 11, 2024 10:23am SONIA (obstructive sleep apnea) chroni c September 11, 2024 10:23am Shortness of breath chronic September 11, 2024 10:23am Chest pain acute October 11 1:01pm Cardiomyopathy chronic October 1:01pm Coronary artery disease chronic A ug2024 1:01pm Diabetes chronic October 11 1:01pm Dyslipidemia chronic October 11, 2024 1:01pm Left ventricular systolic dysfunction (LVSD) chronic October 11 025 1:01pm Morbid obesity with BMI of 7 0 and over, adult chronic October 11, 2024 1:01pm SONIA (obstructive sleep apnea) chroni c October 11, 2024 1:01pm Granulomatous lung disease acute October 15, 2024 11:14am Hypoxemia acute October 15 11:14am Lung nodule seen on imaging study acute October 15, 2024 11:14am Obesity chronic October 15 11:14am SONIA (obstructive sleep apnea) chroni c October 15, 2024 11:14am Shortness of breath chronic Augus 2024 11:14am [facility] Work Phone: [phone] 127-754504-04-2025 Radiology Diagnostic study note [facility] [address] [place], [place] [id number] Abdomen/Pelvis without Cont MR#: [id number] Acct: [id number] Name: CHRISTA SILVERMAN Rep #: [id number] 3 : 1975 M 49 From: Angelo Wilson MD PCP: ANAM Caputo, [employer] Status: ADM IN Study:Abdomen/Pelvis without Cont Date of Exa m: 06/14/24 Exam# [id number] Ordering Dr: Jane Marroquin MD PROCEDURE: ABDOMEN/PELVIS WITHOUT CONT 06/14/2024 REASON FOR EXAM: ACUTE ON CHRONIC KIDNEY DISEASE TECHNIQUE: Abdomen and pelvis CT without intravenous contrast. Noncontrast technique limits evaluation of the abdominal and pelvic viscera. Coronal and Sagittal reconstruction series were provided. One or more dose reduction techniques were used (e.g., Automated exposure control, adjustment of the mA and/or kV according to patient size, use of iterative reconstruction technique). PATIENT PREPARATION: Per protocol ORAL CONTRAST TYPE: None. COMPARISON: None available FINDINGS: Patchy ill-defined mainly perihilar appearing ground-glass opacities at the bilateral visualized lung bases may be inflammatory or infectious or less likely pulmonary edema, clinically correlate. No pleural effusion seen. The liver, adrenal glands, kidneys and pancreas appear within limits on noncontrast imaging. Incidental note of a 3.3 cm left lower pole cortical partially exophytic renal cyst. The kidneys appear within limits for size on noncontrast imaging. No renal stones or hydronephrosis. Status post cholecystectomy. Splenomegaly 17.4 cm. Abdominal aorta appears within limits on noncontrast imaging. No adenopathy. No bowel dilation or free air. Normal caliber appendix without secondary signs. The bladder appears within limits. No evidence of ureteral or bladder stone. No free fluid. Prostate appears within limits. Lower lumbar facet degenerative changes with appearance of left-sided foraminal narrowing at L5-S1.Visualized osseous structures otherwise appear within limits. CT/Abdomen/Pelvis without Cont IMPRESSION: Patchy ill-defined mainly perihilar appearing ground-glass opacities at the bilateral visualized lung bases may be inflammatory or infectious or less likely pulmonary edema, clinically correlate. No pleural effusion seen. Splenomegaly 17.4 cm. Reading Location: [id number] CC: [facility] [employer] Jordana Baez; Dr. Grecia Marroquin MD ~ Manager Sharepoint: Signed [facility]04-04-2025 Discharge summary [facility] Medical Records Department [address] [place] [address] Emergency Department Summary 06/14/24 MR#: [id number] Acct: [id number] Name: CHRISTA SILVERMAN Rep #:[id number] 3 : 1975 49 From: Mac Mejia PCP: ANAM Caputo, [employer] Statu s:REG ER Location: ED HPI History of Present Illness Chief Complaint: Abn Labs Informant: patient Narrative Narrative: Sent in after speaking with his snuff container inspector Dr. Elizabeth for abnormal labs ordered by cardiology yesterday and preparations for CT coronaries. Patient history of diabetes stage III chronic disease at baseline, sleep apnea. He has been worked up by his ged teacher due to his dyspnea had an echocardiogram in March EF was down from review records 45%. He had previous mild calcificationof coronaries. Refer to cardiology Dr. Mawxell he saw him in April, states hadFarxiga added and his metoprololincreased to 200 mg. He was having lab work for plans for CT coronaries. He does have history of ARGUETA diagnosed a year ago but followed by Dr. Guzman. He denies recent vomiting or diarrhea. He is making normal urine. Denies brown urine or any foamy urine. Denies any chest pains or palpitations. He reports lab work with elevated calcium of 14 and elevated creatinine. No cancer history reported 2 small lung nodules in the past. Reviewing records blood yesterday creatinine 3.36 GFR of 21 this is up from creatinine 1.6 GFR 47 April 23, 2024. Potassium was normal. Calcium was 14. Prior similar symptoms: No PFSH PFSH Medical History History of chicken pox Chronic kidney disease Pneumonia History of steroid therapy History of renal disease Fatty liver Former smoker BiPAP (biphasic positive airway pressure) dependence Sleep apnea History of edema Elevated liver enzymes COVID-19 Vitamin D deficiency Thyroid disease Hyperlipidemia Hypertension Diabetes Home Medications ?Medication ?Instructions ?Recorded ?Last Taken ?Type aspirin 81 mg chewable tablet 81 mg PO DAILY@0800 hear t health 08/11/16 04/15/18 History magnesium oxide 250 mg PO BID supplement 06/2904/15/18 History lancets 28 gauge (Easy Touch #100 ea 02/27/20 Unknown Rx Lancets) OneTouch Verio Flex meter #1 ea 06/29/20 Unknown Rx (blood-glucose meter) atorvastatin 20 mg tablet 20 mg PO QHS cholestoral 01/31 Unknown History BD Insulin Syringe 1 mL 25 gauge x #100 ea 05/24/21 Un known Rx 5/8 (insulin syringe-needle U-100) insulin syringe-needle U-100 0.5 #100 ea 06/02/22 Unkn own Rx mL 31 gauge x 5/16 (BD Insulin Syringe Ultra-Fine) OneTouch Verio test strips (blood #100 ea 08/25/22 Unk nown Rx sugar diagnostic) scopolamine base 1 mg over 3 days 1 patch transdermal Q72H PRN 01/26/23 Unknown History transdermal patch nausea and vomiting gabapentin 300 mg capsule 300 mg PO TID PRN neuropathy #90 04/10/23 Unknown Rx caps pen needle, diabetic 32 gauge x #100 ea 07/20/23 Unkno wn Rx 5/32 (BD Ultra-Fine Shani Pen Needle) insulin syringe-needle U-100 1 mL #100 ea 08/31/23 Unk nown Rx 31 gauge x 5/16 (BD Insulin Syringe Ultra-Fine) pen needle, diabetic 32 gauge x #50 ea 08/31/23 Unknow n Rx 5/32 (BD Ultra-Fine Shani Pen Needle) ursodiol 300 mg capsule 300 mg PO BID #60 caps 01/03 Unknown Rx lisinopril 20 mg tablet 20 mg PO QDAY 01/15/24 Unkno wn History nebulizer tubing kits #1 ea 02/05/24 Unknown Rx neublizer machine #1 ea 02/05/24 Unknown Rx lancets 33 gauge (OneTouch Delica #100 ea 02/22/24 Unk nown Rx Plus Lancet) albuterol sulfate 2.5 mg/3 mL 2.5 mg (3 mL) inhalation Q4-6H PRN 03/15/24 Unknown Rx (0.083 %) solution for nebulization shortness of breat h or wheezing #180 mL levothyroxine 175 mcg tablet 175 mcg PO DAILY #30 tabs 04/02/24 Unknown Rx cholecalciferol (vitamin D3) 25 2,000 unit PO DAILY Unknown History mcg (1,000 unit) capsule (Vitamin D3) fluticasone furoate 200 1 inh inhalation Q24H #30 ea 04/30/24 Unknown Rx mcg/actuation blister powder for inhalation (Arnuity Ellipta) tirzepatide 10 mg/0.5 mL 10 mg subcut QWEEK 04/30/24 Unknown History subcutaneous pen injector (Mounjaro) dapagliflozin propanediol 10 mg 10 mg PO QDAY #90 tabs 05/07/24 Unknown Rx tablet (Farxiga) metoprolol succinate 200 mg 200 mg PO QDAY #90 tabs Unknown Rx tablet,extended release 24 hr blood sugar diagnostic (Blood #100 ea 06/12/24 Unknown Rx Glucose Test strips) insulin regular hum U-500 conc 500 See Rx Instructions subcut BID 06/14/24 Unknown History unit/mL(3 mL) subcut pen (Humulin R U-500 (Conc) Insulin Kwikpen) Allergy/AdvReac Type Severity Reaction Status Date / Time wool AdvReac Severe Hives Verified 06/14/24 14:14 Family History Grandfather Family history of heart disease Family history of hypertension Hyperlipidemia Hypertension Diabetes Mother Family history of high cholesterol COPD (chronic obstructive pulmonary disease) Family history of hypertension in mother Grandfather Family history of high cholesterol Sleep apnea Aunt Family history of hypertension Sister Cancer Father , Diabetes Diabetes Hypertension Hyperlipidemia Surgical History History of lung biopsy History of esophagogastroduodenoscopy (EGD) History of surgery history of gallbladder sugery History of tonsillectomy and adenoidectomy Social History household members: family housing: house current occupational status: employed current occupational exposures/hazards: Yes Smoking Status: Former smoker Tobacco: How many years used: 2 alcohol intake: never substance use type: does not use caffeine: Yes Type: coffee Number of servings: 2 ROS ROS ED Constitutional Constitutional ED: Denies chills, fever(s) or sweats ENT ENT ED: Denies sore throat Cardiovascular Cardiovascular: Denies chest pain, leg edema, palpitations or racing heartbeat Respiratory/Chest Respiratory/Chest: Denies cough, dyspnea or dyspnea on exertion Gastrointestinal Gastrointestinal: Denies abdominal pain, diarrhea, nausea or vomiting Genitourinary Genitourinary ED: Denies dysuria, hematuria or urinary frequency Musculoskeletal Musculoskeletal: Denies back pain, extremity pain or neck pain Integumentary Denies rash or wounds Neurologic Neurologic: Denies headache(s), paresthesias or weakness EXAM Physical Exam Const Vital Signs: 06/14/24 14:15 06/14/24 14:38 Temperature 97.8 F Temperature Source Oral Pulse Rate 108 H Respiratory Rate 18 Respiratory Effort Normal Respiratory Pattern Normal Blood Pressure 130/85 H Blood Pressure Mean 100 Pulse Ox 98 Oxygen Delivery Method Room Air Positive well nourished and well developed General Appearance ED: well developed and NAD HEENT Reports moist mucous membranes normocephalic and atraumatic Eyes General Eye ED: Yes normal appearance of both eyes Neck full ROM Chest Wall Chest: Negative for tenderness Resp normal respiratory effort and normal air movement Effort and Inspection: symmetric chest movement; Negative for respiratory distress Cardio regular rate, regular rhythm and no murmurs Peripheral Pulses: pulses 2+ throughout GI normal to inspection, nondistended, normoactive bowel sounds and non-tender Palpation: Negative for guarding or rebound tenderness present Extremity normal to inspection General Extremety ED: Negative for edema or tenderness General Extremity: Negative for edema Neuro oriented x3 and no sensory deficits noted Sensorium / Orientation: awake and alert Skin no rashes or lesions noted and no wounds MDM MDM MDM Narrative Medical decision making narrative: Interventions / MDM: Differential diagnosis: ARSEN, hypercalcemia, history of cardiomyopathy, history of Argueta, history of diabetes Diagnosis considered but do not suspect: DKA however gap is normal. My EKG interpretation: Sinus rate of 93, no ST or T wave changes. No peaked T waves or widened QRS. Imaging independently reviewed and interpreted by myself: N/A External documents reviewed: Echocardiogram April 08, 2024 EF of 45% stage I diastolic dysfunction. Cardiology note fibber [address] angiogram coronaries along with MRI cardiac. Labs from yesterday in the system with creatinine 3.36 GFR 21 with calcium 14. Test considered but not ordered:N/A ED course: Patient with ARSEN hypercalcemia outpatient yesterday recheck labs EKG sinus rhythm with no hyperkalemic changes. Labs creatinine 3.3 GFR 22 calcium 14, up from less than 2 months ago. Unclear reasons. Cardiomyopathy EF 45% in March we will start gentle fluids 500 cc bolus at night for hypercalcemia and his ARSEN. I discussed with hospitalist Dr. Marroquin for admission. Re-evaluation: stable Disposition discussed with patient/family/significant other: Patient Case discussed with consulting clinician: Hospitalist This note was generated with Mosaic dictation software. It may contain incorrectwords, spelling, and punctuation that were not noted in checking the note beforesigning. He was fine Lab Data Attestation: I reviewed the patient's lab results. Labs: Laboratory Results - last 24 hr 06/14/24 14:37 WBC 4.2 L RBC 4.30 L Hgb 14.2 Hct 39.7 L MCV 92.3 MCH 33.0 H MCHC 35.8 RDW Std Deviation 55.8 H RDW Coeff of Syed 16.7 H Plt Count 128 L MPV 9.1 Immature Gran % (Auto) 0.200 Neut % (Auto) 67.0 Lymph % (Auto) 16.6 L [place] % (Auto) 11.1 H Eos % (Auto) 4.6 Baso % (Auto) 0.5 Absolute Neuts (auto) 2.8 Absolute Lymphs (auto) 0.69 L Nucleated RBC % 0 Sodium 131 L Potassium 4.3 Chloride 99 Carbon Dioxide 18.6 L Anion Gap 13 BUN 50 H Creatinine 3.30 H Estim Creat Clear Calc 50.83 Est GFR (MDRD) Non-Af 22 L BUN/Creatinine Ratio 15.3 Glucose 222 H Calcium 14.0 H* Total Bilirubin 0.70 Direct Bilirubin 0.34 H AST 59 H ALT 41 Alkaline Phosphatase 172 H Total Protein 7.4 Albumin 4.1 Globulin 3.3 Discharge Plan Triage Chief Complaint: Abn Labs ED Provider: Mac Ortega Dx/Rx/DC Orders Clinical Impression: ARSEN (acute kidney injury), Hypercalcemia, ARGUETA (nonalcoholic steatohepatitis), Hyperglycemia due todiabetes mellitus Prescriptions: No Action (DME) lancets [Easy Touch Lancets] 28 gauge misc See Rx Instructions .ROUTE .MEDSUPPLY Qty: 100 6RF Rx Instructions: 3 times daily atorvastatin 20 mg tablet 20 mg PO QHS Patient Comments: TAKE 1 TABLET BY MOUTH AT BEDTIME (DME) BD Insulin Syringe 1 mL 25 gauge x 5/8 syringe See Rx Instructions .ROUTE .MEDSUPPLY Qty: 100 6RF Rx Instructions: bid gabapentin 300 mg capsule 300 mg PO TID PRN (Reason: neuropathy) Qty: 90 0RF scopolamine base 1 mg over 3 days patch 3 day 1 patch transdermal Q72H PRN (Reason: nausea and vomiting) (DME) nebulizer tubing kits See Rx Instructions .ROUTE .MEDSUPPLY Qty: 1 0RF Rx Instructions: As directed (DME) neublizer machine See Rx Instructions .ROUTE .MEDSUPPLY Qty: 1 0RF Rx Instructions: As directed lisinopril 20 mg tablet 20 mg PO QDAY Mounjaro 10 mg/0.5 mL pen injector 10 mg subcut QWEEK Arnuity Ellipta 200 mcg/actuation blister with device 1 inh inhalation Q24H Qty: 30 5RF metoprolol succinate 200 mg tablet extended release 24 hr 200 mg PO QDAY Qty: 90 3RF dapagliflozin propanediol [Farxiga] 10 mg tablet 10 mg PO QDAY Qty: 90 3RF aspirin 81 MG tablet,chewable 81 mg PO DAILY@0800 magnesium oxide 250 MG tablet 250 mg PO BID cholecalciferol (vitamin D3) [Vitamin D3] 25 mcg (1,000 unit) capsule 2,000 unit PO DAILY Humulin R U-500 (Conc) Kwikpen 500 unit/mL (3 mL) insulin pen See Rx Instructions subcut BID Rx Instructions: 65 am 180 pm subcutaneously twice a day; (DME) blood-glucose meter [OneTouch Verio Flex meter] [facility] [place] See Rx Instructions .ROUTE .MEDSUPPLY Qty: 1 0RF Rx Instructions: As directed (DME) insulin syringe-needle U-100 [BD Insulin Syringe Ultra-Fine] 0.5 mL 31 gauge x 5/16 syringe See Rx Instructions .ROUTE .MEDSUPPLY Qty: 100 6RF Rx Instructions: twice daily (DME) OneTouch Verio test strips Strip See Rx Instructions .ROUTE .MEDSUPPLY Qty: 100 8RF Rx Instructions: tid (DME) pen needle, diabetic [BD Ultra-Fine Shani Pen Needle] 32 gauge x 5/32 needle See Rx Instructions .Route Qty: 100 5RF Rx Instructions: BID (DME) insulin syringe-needle U-100 [BD Insulin Syringe Ultra-Fine] 1 mL 31 gauge x 5/16 syringe See Rx Instructions .Route Qty: 100 4RF Rx Instructions: As directed (DME) pen needle, diabetic [BD Ultra-Fine Shani Pen Needle] 32 gauge x 5/32 needle See Rx Instructions .ROUTE .MEDSUPPLY Qty: 50 5RF Rx Instructions: As directed ursodiol 300 mg capsule 300 mg PO BID Qty: 60 9RF (DME) lancets [OneTouch Delica Plus Lancet] 33 gauge misc See Rx Instructions .ROUTE .MEDSUPPLY Qty: 100 8RF Rx Instructions: tid albuterol sulfate 2.5 mg /3 mL (0.083 %) solution for nebulization 2.5 mg inhalation Q4-6H PRN (Reason: shortness of breath or wheezing) Qty: 180 3RF levothyroxine 175 mcg tablet 175 mcg PO DAILY Qty: 30 5RF (DME) Blood Glucose Test Strip See Rx Instructions .ROUTE .MEDSUPPLY Qty: 100 6RF Rx Instructions: test 3 times daily Primary Care Provider: Jordana Baez Referrals: Jordana Baez, [employer] [Primary Care Provider] - Print Language: [place] Disposition Disposition: Acute Care Hospital [facility] What to do if you have Problems For any increased pain, shortness of breath, bleeding, nausea or vomiting, chestpain, or any unexpected problems, contact your Primary Care Provider. Call [facility] ([phone]) or report tothe closest Emergency Room. Call 911 if necessary. 06/14/24 1616 Cosigner Signature (if applicable): CC: ANAM [employer] Jordana Baez ~ Signed [facility]04-04-2025 Discharge summary Author Mac Ortega [facility] Note Date/Time June 14, 2024 4:16 pm [facility] Medical Records Department [address] [place] [address] Emergency Department Summary 06/14/24 MR#: [id number] Acct: [id number] Name: CHRISTA SILVERMAN Rep #:[id number] 3 : 1975 49 From: Mac Mejia PCP: Jordana Baez [facility], [employer] Statu s:REG ER Location: ED HPI History of Present Illness Chief Complaint: Abn Labs Informant: patient Narrative Narrative: Sent in after speaking with his snuff container inspector Dr. Elizabeth for abnormal labs ordered by cardiology yesterday and preparations for CT coronaries. Patient history of diabetes stage III chronic disease at baseline, sleep apnea. He has been worked up by his ged teacher due to his dyspnea had an echocardiogram in March EF was down from review records 45%. He had previous mild calcificationof coronaries. Refer to cardiology Dr. Maxwell he saw him in April, states hadFarxiga added and his metoprolol increased to 200 mg. He was having lab work for plans for CT coronaries. He does have history of ARGUETA diagnosed a year ago but followed by Dr. Guzman. He denies recent vomiting or diarrhea. He is making normal urine. Denies brown urine or any foamy urine. Denies any chest pains or palpitations. He reports lab work with elevated calcium of 14 and elevated creatinine. No cancer history reported 2 small lung nodules in the past. Reviewing records blood yesterday creatinine 3.36 GFR of 21 this is up from creatinine 1.6 GFR 47 April 23, 2024. Potassium was normal. Calcium was 14. Prior similar symptoms: No PFSH PFSH Medical History History of chicken pox Chronic kidney disease Pneumonia History of steroid therapy History of renal disease Fatty liver Former smoker BiPAP (biphasic positive airway pressure) dependence Sleep apnea History of edema Elevated liver enzymes COVID-19 Vitamin D deficiency Thyroid disease Hyperlipidemia Hypertension Diabetes Home Medications ?Medication ?Instructions ?Recorded ?Last Taken ?Type aspirin 81 mg chewable tablet 81 mg PO DAILY@0800 hear t health 08/11/16 04/15/18 History magnesium oxide 250 mg PO BID supplement 06/2904/15/18 History lancets 28 gauge (Easy Touch #100 ea 02/27/20 Unknown Rx Lancets) OneTouch Verio Flex meter #1 ea 06/29/20 Unknown Rx (blood-glucose meter) atorvastatin 20 mg tablet 20 mg PO QHS cholestoral 01/31 Unknown History BD Insulin Syringe 1 mL 25 gauge x #100 ea 05/24/21 Un known Rx 5/8 (insulin syringe-needle U-100) insulin syringe-needle U-100 0.5 #100 ea 06/02/22 Unkn own Rx mL 31 gauge x 5/16 (BD Insulin Syringe Ultra-Fine) OneTouch Verio test strips (blood #100 ea 08/25/22 Unk nown Rx sugar diagnostic) scopolamine base 1 mg over 3 days 1 patch transdermal Q72H PRN 01/26/23 Unknown History transdermal patch nausea and vomiting gabapentin 300 mg capsule 300 mg PO TID PRN neuropathy #90 04/10/23 Unknown Rx caps pen needle, diabetic 32 gauge x #100 ea 07/20/23 Unkno wn Rx 5/32 (BD Ultra-Fine Shani Pen Needle) insulin syringe-needle U-100 1 mL #100 ea 08/31/23 Unk nown Rx 31 gauge x 5/16 (BD Insulin Syringe Ultra-Fine) pen needle, diabetic 32 gauge x #50 ea 08/31/23 Unknow n Rx 5/32 (BD Ultra-Fine Shani Pen Needle) ursodiol 300 mg capsule 300 mg PO BID #60 caps 01/03 Unknown Rx lisinopril 20 mg tablet 20 mg PO QDAY 01/15/24 Unkno wn History nebulizer tubing kits #1 ea 02/05/24 Unknown Rx neublizer machine #1 ea 02/05/24 Unknown Rx lancets 33 gauge (OneTouch Delica #100 ea 02/22/24 Unk nown Rx Plus Lancet) albuterol sulfate 2.5 mg/3 mL 2.5 mg (3 mL) inhalation Q4-6H PRN 03/15/24 Unknown Rx (0.083 %) solution for nebulization shortness of breat h or wheezing #180 mL levothyroxine 175 mcg tablet 175 mcg PO DAILY #30 tabs 04/02/24 Unknown Rx cholecalciferol (vitamin D3) 25 2,000 unit PO DAILY Unknown History mcg (1,000 unit) capsule (Vitamin D3) fluticasone furoate 200 1 inh inhalation Q24H #30 ea 04/30/24 Unknown Rx mcg/actuation blister powder for inhalation (Arnuity Ellipta) tirzepatide 10 mg/0.5 mL 10 mg subcut QWEEK 04/30/24 Unknown History subcutaneous pen injector (Vignesh) dapagliflozin propanediol 10 mg 10 mg PO QDAY #90 tabs 05/07/24 Unknown Rx tablet (Farxiga) metoprolol succinate 200 mg 200 mg PO QDAY #90 tabs Unknown Rx tablet,extended release 24 hr blood sugar diagnostic (Blood #100 ea 06/12/24 Unknown Rx Glucose Test strips) insulin regular hum U-500 conc 500 See Rx Instructions subcut BID 06/14/24 Unknown History unit/mL(3 mL) subcut pen (Humulin R U-500 (Conc) Insulin Kwikpen) Allergy/AdvReac Type Severity Reaction Status Date / Time wool AdvReac Severe Hives Verified 06/14/24 14:14 Family History Grandfather Family history of heart disease Family history of hypertension Hyperlipidemia Hypertension Diabetes Mother Family history of high cholesterol COPD (chronic obstructive pulmonary disease) Family history of hypertension in mother Grandfather Family history of high cholesterol Sleep apnea Aunt Family history of hypertension Sister Cancer Father , Diabetes Diabetes Hypertension Hyperlipidemia Surgical History History of lung biopsy History of esophagogastroduodenoscopy (EGD) History of surgery history of gallbladder sugery History of tonsillectomy and adenoidectomy Social History household members: family housing: house current occupational status: employed current occupational exposures/hazards: Yes Smoking Status: Former smoker Tobacco: How many years used: 2 alcohol intake: never substance use type: does not use caffeine: Yes Type: coffee Number of servings: 2 ROS ROS ED Constitutional Constitutional ED: Denies chills, fever(s) or sweats ENT ENT ED: Denies sore throat Cardiovascular Cardiovascular: Denies chest pain, leg edema, palpitations or racing heartbeat Respiratory/Chest Respiratory/Chest: Denies cough, dyspnea or dyspnea on exertion Gastrointestinal Gastrointestinal: Denies abdominal pain, diarrhea, nausea or vomiting Genitourinary Genitourinary ED: Denies dysuria, hematuria or urinary frequency Musculoskeletal Musculoskeletal: Denies back pain, extremity pain or neck pain Integumentary Denies rash or wounds Neurologic Neurologic: Denies headache(s), paresthesias or weakness EXAM Physical Exam Const Vital Signs: 06/14/24 14:15 06/14/24 14:38 Temperature 97.8 F Temperature Source Oral Pulse Rate 108 H Respiratory Rate 18 Respiratory Effort Normal Respiratory Pattern Normal Blood Pressure 130/85 H Blood Pressure Mean 100 Pulse Ox 98 Oxygen Delivery Method Room Air Positive well nourished and well developed General Appearance ED: well developed and NAD HEENT Reports moist mucous membranes normocephalic and atraumatic Eyes General Eye ED: Yes normal appearance of both eyes Neck full ROM Chest Wall Chest: Negative for tenderness Resp normal respiratory effort and normal air movement Effort and Inspection: symmetric chest movement; Negative for respiratory distress Cardio regular rate, regular rhythm and no murmurs Peripheral Pulses: pulses 2+ throughout GI normal to inspection, nondistended, normoactive bowel sounds and non-tender Palpation: Negative for guarding or rebound tenderness present Extremity normal to inspection General Extremety ED: Negative for edema or tenderness General Extremity: Negative for edema Neuro oriented x3 and no sensory deficits noted Sensorium / Orientation: awake and alert Skin no rashes or lesions noted and no wounds MDM MDM MDM Narrative Medical decision making narrative: Interventions / MDM: Differential diagnosis: ARSEN, hypercalcemia, history of cardiomyopathy, history of Argueta, history of diabetes Diagnosis considered but do not suspect: DKA however gap is normal. My EKG interpretation: Sinus rate of 93, no ST or T wave changes. No peaked T waves or widened QRS. Imaging independently reviewed and interpreted by myself: N/A External documents reviewed: Echocardiogram April 08, 2024 EF of 45% stage I diastolic dysfunction. Cardiology note fibber [address] angiogram coronaries along with MRI cardiac. Labs from yesterday in the system with creatinine 3.36 GFR 21 with calcium 14. Test considered but not ordered:N/A ED course: Patient with ARSEN hypercalcemia outpatient yesterday recheck labs EKG sinus rhythm with no hyperkalemic changes. Labs creatinine 3.3 GFR 22 calcium 14, up from less than 2 months ago. Unclear reasons. Cardiomyopathy EF 45% in March we will start gentle fluids 500 cc bolus at night for hypercalcemia and his ARSEN. I discussed with hospitalist Dr. Marroquin for admission. Re-evaluation: stable Disposition discussed with patient/family/significant other: Patient Case discussed with consulting clinician: Hospitalist This note was generated with Mosaic dictation software. It may contain incorrectwords, spelling, and punctuation that were not noted in checking the note beforesigning. He was fine Lab Data Attestation: I reviewed the patient's lab results. Labs: Laboratory Results - last 24 hr 06/14/24 14:37 WBC 4.2 L RBC 4.30 L Hgb 14.2 Hct 39.7 L MCV 92.3 MCH 33.0 H MCHC 35.8 RDW Std Deviation 55.8 H RDW Coeff of Syde 16.7 H Plt Count 128 L MPV 9.1 Immature Gran % (Auto) 0.200 Neut % (Auto) 67.0 Lymph % (Auto) 16.6 L [place] % (Auto) 11.1 H Eos % (Auto) 4.6 Baso % (Auto) 0.5 Absolute Neuts (auto) 2.8 Absolute Lymphs (auto) 0.69 L Nucleated RBC % 0 Sodium 131 L Potassium 4.3 Chloride 99 Carbon Dioxide 18.6 L Anion Gap 13 BUN 50 H Creatinine 3.30 H Estim Creat Clear Calc 50.83 Est GFR (MDRD) Non-Af 22 L BUN/Creatinine Ratio 15.3 Glucose 222 H Calcium 14.0 H* Total Bilirubin 0.70 Direct Bilirubin 0.34 H AST 59 H ALT 41 Alkaline Phosphatase 172 H Total Protein 7.4 Albumin 4.1 Globulin 3.3 Discharge Plan Triage Chief Complaint: Abn Labs ED Provider: Mac Ortega Dx/Rx/DC Orders Clinical Impression: ARSEN (acute kidney injury), Hypercalcemia, ARGUETA (nonalcoholic steatohepatitis), Hyperglycemia due to diabetes mellitus Prescriptions: No Action (DME) lancets [Easy Touch Lancets] 28 gauge misc See Rx Instructions .ROUTE .MEDSUPPLY Qty: 100 6RF Rx Instructions: 3 times daily atorvastatin 20 mg tablet 20 mg PO QHS Patient Comments: TAKE 1 TABLET BY MOUTH AT BEDTIME (DME) BD Insulin Syringe 1 mL 25 gauge x 5/8 syringe See Rx Instructions .ROUTE .MEDSUPPLY Qty: 100 6RF Rx Instructions: bid gabapentin 300 mg capsule 300 mg PO TID PRN (Reason: neuropathy) Qty: 90 0RF scopolamine base 1 mg over 3 days patch 3 day 1 patch transdermal Q72H PRN (Reason: nausea and vomiting) (DME) nebulizer tubing kits See Rx Instructions .ROUTE .MEDSUPPLY Qty: 1 0RF Rx Instructions: As directed (DME) neublizer machine See Rx Instructions .ROUTE .MEDSUPPLY Qty: 1 0RF Rx Instructions: As directed lisinopril 20 mg tablet 20 mg PO QDAY Mounjaro 10 mg/0.5 mL pen injector 10 mg subcut QWEEK Arnuity Ellipta 200 mcg/actuation blister with device 1 inh inhalation Q24H Qty: 30 5RF metoprolol succinate 200 mg tablet extended release 24 hr 200 mg PO QDAY Qty: 90 3RF dapagliflozin propanediol [Farxiga] 10 mg tablet 10 mg PO QDAY Qty: 90 3RF aspirin 81 MG tablet,chewable 81 mg PO DAILY@0800 magnesium oxide 250 MG tablet 250 mg PO BID cholecalciferol (vitamin D3) [Vitamin D3] 25 mcg (1,000 unit) capsule 2,000 unit PO DAILY Humulin R U-500 (Conc) Kwikpen 500 unit/mL (3 mL) insulin pen See Rx Instructions subcut BID Rx Instructions: 65 am 180 pm subcutaneously twice a day; (DME) blood-glucose meter [OneTouch Verio Flex meter] Misc See Rx Instructions .ROUTE .MEDSUPPLY Qty: 1 0RF Rx Instructions: As directed (DME) insulin syringe-needle U-100 [BD Insulin Syringe Ultra-Fine] 0.5 mL 31 gauge x 5/16 syringe See Rx Instructions .ROUTE .MEDSUPPLY Qty: 100 6RF Rx Instructions: twice daily (DME) OneTouch Verio test strips Strip See Rx Instructions .ROUTE .MEDSUPPLY Qty: 100 8RF Rx Instructions: tid (DME) pen needle, diabetic [BD Ultra-Fine Shani Pen Needle] 32 gauge x 5/32 needle See Rx Instructions .Route Qty: 100 5RF Rx Instructions: BID (DME) insulin syringe-needle U-100 [BD Insulin Syringe Ultra-Fine] 1 mL 31 gauge x 5/16 syringe See Rx Instructions .Route Qty: 100 4RF Rx Instructions: As directed (DME) pen needle, diabetic [BD Ultra-Fine Shani Pen Needle] 32 gauge x 5/32 needle See Rx Instructions .ROUTE .MEDSUPPLY Qty: 50 5RF Rx Instructions: As directed ursodiol 300 mg capsule 300 mg PO BID Qty: 60 9RF (DME) lancets [OneTouch Delica Plus Lancet] 33 gauge misc See Rx Instructions .ROUTE .MEDSUPPLY Qty: 100 8RF Rx Instructions: tid albuterol sulfate 2.5 mg /3 mL (0.083 %) solution for nebulization 2.5 mg inhalation Q4-6H PRN (Reason: shortness of breath or wheezing) Qty: 180 3RF levothyroxine 175 mcg tablet 175 mcg PO DAILY Qty: 30 5RF (DME) Blood Glucose Test Strip See Rx Instructions .ROUTE .MEDSUPPLY Qty: 100 6RF Rx Instructions: test 3 times daily Primary Care Provider: Jordana Baez Referrals: Jordana Baez, [employer] [Primary Care Provider] - Print Language: [place] Disposition Disposition: [facility] What to do if you have Problems For any increased pain, shortness of breath, bleeding, nausea or vomiting, chestpain, or any unexpected problems, contact your Primary Care Provider. Call [facility] ([phone]) or report to the closest Emergency Room. Call 911 if necessary. 06/14/24 1616 <Electronically signed by Mac Mejia> Cosigner Signature (if applicable): CC: ANAM [employer] Jordana Baez ~ Signed [facility] Work Phone: 1(241) 379-940102-12-2025 Evaluation note* Diagnosis Onset Date Resolution Status Admit Date Chronic kidney disease chronic Fe 2024 11:43am Diabetes chronic April 24, 2024 11:43am Hypertension chronic April 11:43am Hypothyroidism chronic April 132024 11:43am Microalbuminuria chronic April 24, 2024 11:43am Obesity chronic April 24, 2024 11:43am Hypoxemia acute April 30, 2024 10:48am Obesity chronic April 30, 2024 10:48am SONIA (obstructive sleep apnea) chroni c April 30, 2024 10:48am Right middle lobe pulmonary nodule chronic April 30, 10:48am Shortness of breath chronic Febru [email or web address] 10:48am Cardiomyopathy chronic April 142024 9:54am Coronary artery disease chronic F ebruary 2024 9:54am Diabetes chronic May 07, 2024 9:54am Dyslipidemia chronic April 9:54am Left ventricular systolic dysfunction (LVSD) chronic April 9:54am Morbid obesity with BMI of 7 0 and over, adult chronic May 07, 2 025 9:54am SONIA (obstructive sleep apnea) chroni c May 07, 2024 9:54am Granulomatous lung disease acute June 14, 2024 4:08pm Hyperglycemia due to diabete s mellitus acute June 14, 2024 4:08pm ARGUETA (nonalcoholic steatohepatitis) acute June 14, 2024 4:08pm Hypercalcemia deleted June 14, 2024 4:08pm ARSEN (acute kidney injury) inactive June 14, 2024 4:08pm Cardiomyopathy chronic June 1:01pm Coronary artery disease chronic A pril 2024 1:01pm Diabetes chronic July 10 1:01pm Dyslipidemia chronic July 10, 2024 1:01pm Left ventricular systolic dysfunction (LVSD) chronic July 10, 2 025 1:01pm Morbid obesity with BMI of 7 0 and over, adult chronic July 10, 2024 1:01pm SONIA (obstructive sleep apnea) chroni c July 10, 2024 1:01pm Chronic kidney disease chronic Ma 2024 9:43am Diabetes chronic July 11, 2024 9:43am Essential (primary) hypertension chronic July 11, 2024 9: 43am Hypothyroidism chronic July 11, 2 025 9:43am Microalbuminuria chronic July 11, 2024 9:43am Obesity chronic July 11, 2024 9:43am Granulomatous lung disease acute July 23, 2024 11:12am Hypoxemia acute July 23, 2024 11:12am Lung nodule seen on imaging study acute July 23, 2024 1 1:12am Obesity chronic July 23, 2024 11:12am SONIA (obstructive sleep apnea) chroni c July 23, 2024 11:12am Shortness of breath chronic July 112024 11:12am Granulomatous lung disease acute August 07, 2024 8:45am Hypoxemia acute August 07, 2024 8:45am Lung nodule seen on imaging study acute August 07, 2024 8 :45am Obesity chronic August 07, 2024 8:45am SONIA (obstructive sleep apnea) chroni c August 07, 2024 8:45am Shortness of breath chronic July 122024 8:45am [facility] Work Phone: 1(515) 366-293602-11-2025 Evaluation note* Diagnosis Onset Date Resolution Status Admit Date Lung nodule seen on imaging study acute April 23 10:27am ARGUETA (nonalcoholic steatohepatitis) acute April 23, 2024 10:27am Cirrhosis chronic April 23, 2024 10:27am Elevated alkaline phosphatas e level chronic April 23 10:27am Primary biliary cholangitis chronic April 23, 2024 10:27am Thrombocytopenia chronic April 23, 2024 10:27am Chronic kidney disease chronic Fe 2024 11:43am Diabetes chronic April 24, 2024 11:43am Hypertension chronic April 11:43am Hypothyroidism chronic April 132024 11:43am Microalbuminuria chronic April 24, 2024 11:43am Obesity chronic April 24, 2024 11:43am Hypoxemia acute April 30, 2024 10:48am Obesity chronic April 30, 2024 10:48am SONIA (obstructive sleep apnea) chroni c April 30, 2024 10:48am Right middle lobe pulmonary nodule chronic April 30 10:48am Shortness of breath chronic 2024 10:48am Cardiomyopathy chronic April 142024 9:54am Coronary artery disease chronic F ebruary 2024 9:54am Diabetes chronic May 07, 2024 9:54am Dyslipidemia chronic April 9:54am Left ventricular systolic dysfunction (LVSD) chronic April 9:54am Morbid obesity with BMI of 7 0 and over, adult chronic May 07 9:54am SONIA (obstructive sleep apnea) chroni c May 07, 2024 9:54am Granulomatous lung disease acute June 14, 2024 4:08pm Hyperglycemia due to diabete s mellitus acute June 14, 2024 4:08pm ARGUETA (nonalcoholic steatohepatitis) acute June 14, 2024 4:08pm Hypercalcemia deleted June 14, 2024 4:08pm ARSEN (acute kidney injury) inactive June 14, 2024 4:08pm Cardiomyopathy chronic June 1:01pm Coronary artery disease chronic A pril 2024 1:01pm Diabetes chronic July 10 1:01pm Dyslipidemia chronic July 10, 2024 1:01pm Left ventricular systolic dysfunction (LVSD) chronic July 10, 025 1:01pm Morbid obesity with BMI of 7 0 and over, adult chronic July 10, 2024 1:01pm SONIA (obstructive sleep apnea) chroni c July 10, 2024 1:01pm Chronic kidney disease chronic Ma 2024 9:43am Diabetes chronic July 11, 2024 9:43am Essential (primary) hypertension chronic July 11, 2024 9: 43am Hypothyroidism chronic July 11 9:43am Microalbuminuria chronic July 11, 2024 9:43am Obesity chronic July 11, 2024 9:43am Hypoxemia acute July 23, 2024 11:12am Obesity chronic July 23, 2024 11:12am SONIA (obstructive sleep apnea) chroni c July 23, 2024 11:12am Right middle lobe pulmonary nodule chronic July 23, 2024 1 1:12am Shortness of breath chronic July 112024 11:12am [facility] Work Phone: 1(439) 313-940402-11-2025 Evaluation note* Diagnosis Onset Date Resolution Status Admit Date Lung nodule seen on imaging study acute April 23 10:27am ARGUETA (nonalcoholic steatohepatitis) acute April 23, 2024 10:27am Cirrhosis chronic April 23, 2024 10:27am Elevated alkaline phosphatas e level chronic April 23 10:27am Primary biliary cholangitis chronic April 23, 2024 10:27am Thrombocytopenia chronic April 23, 2024 10:27am Chronic kidney disease chronic Fe bru2024 11:43am Diabetes chronic April 24, 2024 11:43am Hypertension chronic April 11:43am Hypothyroidism chronic April 132024 11:43am Microalbuminuria chronic April 24, 2024 11:43am Obesity chronic April 24, 2024 11:43am Hypoxemia acute April 30, 2024 10:48am Obesity chronic April 30, 2024 10:48am SONIA (obstructive sleep apnea) chroni c April 30, 2024 10:48am Right middle lobe pulmonary nodule chronic February 18th, 2 025 10:48am Shortness of breath chronic Febru hailey 2024 10:48am Cardiomyopathy chronic April 142024 9:54am Coronary artery disease chronic F ebruary 2024 9:54am Diabetes chronic May 07, 2024 9:54am Dyslipidemia chronic April 9:54am Left ventricular systolic dysfunction (LVSD) chronic April 9:54am Morbid obesity with BMI of 7 0 and over, adult chronic May 07 025 9:54am SONIA (obstructive sleep apnea) chroni c May 07, 2024 9:54am Granulomatous lung disease acute June 14, 2024 4:08pm Hyperglycemia due to diabete s mellitus acute June 14, 2024 4:08pm ARGUETA (nonalcoholic steatohepatitis) acute June 14, 2024 4:08pm Hypercalcemia deleted June 14, 2024 4:08pm ARSEN (acute kidney injury) inactive June 14, 2024 4:08pm Cardiomyopathy chronic June 1:01pm Coronary artery disease chronic A pril 2024 1:01pm Diabetes chronic July 10 1:01pm Dyslipidemia chronic July 10, 2024 1:01pm Left ventricular systolic dysfunction (LVSD) chronic July 10 025 1:01pm Morbid obesity with BMI of 7 0 and over, adult chronic July 10, 2024 1:01pm SONIA (obstructive sleep apnea) chroni c July 10, 2024 1:01pm Chronic kidney disease chronic Ma 2024 9:43am Diabetes chronic July 11, 2024 9:43am Essential (primary) hypertension chronic July 11, 2024 9: 43am Hypothyroidism chronic July 11 9:43am Microalbuminuria chronic July 11, 2024 9:43am Obesity chronic July 11, 2024 9:43am Granulomatous lung disease acute July 23, 2024 11:12am Hypoxemia acute July 23, 2024 11:12am Lung nodule seen on imaging study acute July 23, 2024 1 1:12am Obesity chronic July 23, 2024 11:12am SONIA (obstructive sleep apnea) chroni c July 23, 2024 11:12am Shortness of breath chronic July 112024 11:12am [facility] Work Phone: 1(241) 346-246702-11-2025 Evaluation note* Diagnosis Onset Date Resolution Status Admit Date Lung nodule seen on imaging study acute April 23 10:27am ARGUETA (nonalcoholic steatohepatitis) acute April 23, 2024 10:27am Cirrhosis chronic April 23, 2024 10:27am Elevated alkaline phosphatas e level chronic April 23 10:27am Primary biliary cholangitis chronic April 23, 2024 10:27am Thrombocytopenia chronic April 23, 2024 10:27am Chronic kidney disease chronic Fe bru2024 11:43am Diabetes chronic April 24, 2024 11:43am Hypertension chronic April 11:43am Hypothyroidism chronic April 132024 11:43am Microalbuminuria chronic April 24, 2024 11:43am Obesity chronic April 24, 2024 11:43am Hypoxemia acute April 30, 2024 10:48am Obesity chronic April 30, 2024 10:48am SONIA (obstructive sleep apnea) chroni c April 30, 2024 10:48am Right middle lobe pulmonary nodule chronic April 30 10:48am Shortness of breath chronic u [email or web address] 10:48am Cardiomyopathy chronic April 142024 9:54am Coronary artery disease chronic F ebary 2024 9:54am Diabetes chronic May 07, 2024 9:54am Dyslipidemia chronic April 9:54am Left ventricular systolic dysfunction (LVSD) chronic April 9:54am Morbid obesity with BMI of 7 0 and over, adult chronic May 07 9:54am SONIA (obstructive sleep apnea) chroni c May 07, 2024 9:54am Granulomatous lung disease acute June 14, 2024 4:08pm Hyperglycemia due to diabete s mellitus acute June 14, 2024 4:08pm ARGUETA (nonalcoholic steatohepatitis) acute June 14, 2024 4:08pm Hypercalcemia deleted June 14, 2024 4:08pm ARSEN (acute kidney injury) inactive June 14, 2024 4:08pm Cardiomyopathy chronic June 1:01pm Coronary artery disease chronic A pril 2024 1:01pm Diabetes chronic July 10 1:01pm Dyslipidemia chronic July 10, 2024 1:01pm Left ventricular systolic dysfunction (LVSD) chronic July 10 1:01pm Morbid obesity with BMI of 7 0 and over, adult chronic July 10, 2024 1:01pm SONIA (obstructive sleep apnea) chroni c July 10, 2024 1:01pm Chronic kidney disease chronic 2024 9:43am Diabetes chronic July 11, 2024 9:43am Essential (primary) hypertension chronic July 11, 2024 9: 43am Hypothyroidism chronic July 11 9:43am Microalbuminuria chronic July 11, 2024 9:43am Obesity chronic July 11, 2024 9:43am Granulomatous lung disease acute July 23, 2024 11:12am Hypoxemia acute July 23, 2024 11:12am Lung nodule seen on imaging study acute July 23, 2024 1 1:12am Obesity chronic July 23, 2024 11:12am SONIA (obstructive sleep apnea) chroni c July 23, 2024 11:12am Shortness of breath chronic July 112024 11:12am Granulomatous lung disease acute August 07, 2024 8:45am Hypoxemia acute August 07, 2024 8:45am Lung nodule seen on imaging study acute August 07, 2024 8 :45am Obesity chronic August 07, 2024 8:45am SONIA (obstructive sleep apnea) chroni c August 07, 2024 8:45am Shortness of breath chronic July 122024 8:45am [facility] Work Phone: 1(559) 158-936301-07-2025 Evaluation note* Diagnosis Onset Date Resolution Status Admit Date Hypoxemia acute March 19 9:38am Obesity chronic March 19 9:38am SONIA (obstructive sleep apnea) chroni c March 19, 2024 9:38am Right middle lobe pulmonary nodule chronic March 19 9:38am Shortness of breath chronic 2024 9:38am Lung nodule seen on imaging study acute April 23 10:27am ARGUETA (nonalcoholic steatohepatitis) acute April 23, 2024 10:27am Cirrhosis chronic April 23, 2024 10:27am Elevated alkaline phosphatas e level chronic April 23 10:27am Primary biliary cholangitis chronic April 23, 2024 10:27am Thrombocytopenia chronic April 23, 2024 10:27am Chronic kidney disease chronic Fe bruary 2024 11:43am Diabetes chronic April 24, 2024 11:43am Hypertension chronic April 11:43am Hypothyroidism chronic April 132024 11:43am Microalbuminuria chronic April 24, 2024 11:43am Obesity chronic April 24, 2024 11:43am Hypoxemia acute April 30, 2024 10:48am Obesity chronic April 30, 2024 10:48am SONIA (obstructive sleep apnea) chroni c April 30, 2024 10:48am Right middle lobe pulmonary nodule chronic April 30 10:48am Shortness of breath chronic Febru [email or web address] 10:48am Cardiomyopathy chronic April 142024 9:54am Coronary artery disease chronic F eb2024 9:54am Diabetes chronic May 07, 2024 9:54am Dyslipidemia chronic April 9:54am Left ventricular systolic dysfunction (LVSD) chronic April 9:54am Morbid obesity with BMI of 7 0 and over, adult chronic May 07 9:54am SONIA (obstructive sleep apnea) chroni c May 07, 2024 9:54am ARSEN (acute kidney injury) acute June 14, 2024 4:08pm Hypercalcemia acute June 14, 2024 4:08pm Hyperglycemia due to diabete s mellitus acute June 14, 2024 4:08pm ARGUETA (nonalcoholic steatohepatitis) acute June 14, 2024 4:08pm [facility] Work Phone: 1(288) 802-196701-07-2025 Evaluation note* Diagnosis Onset Date Resolution Status Admit Date Hypoxemia acute March 19, 9:38am Obesity chronic March 19 9:38am SONIA (obstructive sleep apnea) chroni c March 19, 2024 9:38am Right middle lobe pulmonary nodule chronic March 19 9:38am Shortness of breath chronic 2024 9:38am Lung nodule seen on imaging study acute April 23 025 10:27am ARGUETA (nonalcoholic steatohepatitis) acute April 23, 2024 10:27am Cirrhosis chronic April 23, 2024 10:27am Elevated alkaline phosphatas e level chronic April 23 10:27am Primary biliary cholangitis chronic April 23, 2024 10:27am Thrombocytopenia chronic April 23, 2024 10:27am Chronic kidney disease chronic Fe bru2024 11:43am Diabetes chronic April 24, 2024 11:43am Hypertension chronic April 11:43am Hypothyroidism chronic April 132024 11:43am Microalbuminuria chronic April 24, 2024 11:43am Obesity chronic April 24, 2024 11:43am Hypoxemia acute April 30, 2024 10:48am Obesity chronic April 30, 2024 10:48am SONIA (obstructive sleep apnea) chroni c April 30, 2024 10:48am Right middle lobe pulmonary nodule chronic April 30 10:48am Shortness of breath chronic [email or web address] 10:48am Cardiomyopathy chronic April 142024 9:54am Coronary artery disease chronic F eb2024 9:54am Diabetes chronic May 07, 2024 9:54am Dyslipidemia chronic April 9:54am Left ventricular systolic dysfunction (LVSD) chronic April 9:54am Morbid obesity with BMI of 7 0 and over, adult chronic May 07 9:54am SONIA (obstructive sleep apnea) chroni c May 07, 2024 9:54am ARSEN (acute kidney injury) acute June 14, 2024 4:08pm Granulomatous lung disease acute June 14, 2024 4:08pm Hypercalcemia chronic June 14, 2024 4:08pm Hyperglycemia due to diabete s mellitus acute June 14, 2024 4:08pm ARGUETA (nonalcoholic steatohepatitis) acute June 14, 2024 4:08pm [facility] Work Phone: 1(782) 901-644401-07-2025 Evaluation note* Diagnosis Onset Date Resolution Status Admit Date Hypoxemia acute March 19, 9:38am Obesity chronic March 19 9:38am SONIA (obstructive sleep apnea) chroni c March 19, 2024 9:38am Right middle lobe pulmonary nodule chronic March 19 9:38am Shortness of breath chronic 2024 9:38am Lung nodule seen on imaging study acute April 23 10:27am ARGUETA (nonalcoholic steatohepatitis) acute April 23, 2024 10:27am Cirrhosis chronic April 23, 2024 10:27am Elevated alkaline phosphatas e level chronic April 23 10:27am Primary biliary cholangitis chronic April 23, 2024 10:27am Thrombocytopenia chronic April 23, 2024 10:27am Chronic kidney disease chronic Fe bruary 2024 11:43am Diabetes chronic April 24, 2024 11:43am Hypertension chronic April 11:43am Hypothyroidism chronic April 132024 11:43am Microalbuminuria chronic April 24, 2024 11:43am Obesity chronic April 24, 2024 11:43am Hypoxemia acute April 30, 2024 10:48am Obesity chronic April 30, 2024 10:48am SONIA (obstructive sleep apnea) chroni c April 30, 2024 10:48am Right middle lobe pulmonary nodule chronic April 30 10:48am Shortness of breath chronic Febru [email or web address] 10:48am Cardiomyopathy chronic April 142024 9:54am Coronary artery disease chronic F ebruary 2024 9:54am Diabetes chronic May 07, 2024 9:54am Dyslipidemia chronic April 9:54am Left ventricular systolic dysfunction (LVSD) chronic April 9:54am Morbid obesity with BMI of 7 0 and over, adult chronic May 07 9:54am SONIA (obstructive sleep apnea) chroni c May 07, 2024 9:54am Granulomatous lung disease acute June 14, 2024 4:08pm Hyperglycemia due to diabete s mellitus acute June 14, 2024 4:08pm ARGUETA (nonalcoholic steatohepatitis) acute June 14, 2024 4:08pm Hypercalcemia deleted June 14, 2024 4:08pm ARSEN (acute kidney injury) inactive June 14, 2024 4:08pm [facility] Work Phone: 1(242) 828-634209-17-2023 Discharge summary Author Rad Morel [facility] November 27, 2022 2:20pm Note Date/Time November 27, 2022 2:20pm [facility] Medical Records Department [address] [place] [address] Emergency Department Summary 11/27/22 MR#: [id number] Acct: [id number] Name: CHRISTA SILVERMAN Rep #:[id number] 5 : 1975 47 From: Rad Morel MD PCP: [facility] atus:[facility] ER Location: ED HPI History of Present Illness Chief Complaint: Wound Narrative Narrative: 47-year-old male past medical history of peripheral artery disease, type 2 diabetes, hypertension, liver cirrhosis presents for wound check of a lacerationthat he sustained approximately 10 days ago while he was at work. He states he was carrying cris of cardboard and walking to a metal door when the metal door hit the back of his left lower extremity. He believes his tetanus is up-to-date. He presents because of redness to the area and small pustules surrounding the wound that have broken open, and purulent material came out. Hedenies any foreign body sensation. No fevers or chills, no nausea or vomiting. He states he does not want to claim Workmen's Compensation for this wound, and presents for wound check. [facility] Medical History BiPAP (biphasic positive airway pressure) dependence COVID-19 Diabetes Elevated liver enzymes Fatty liver Former smoker History of edema History of renal disease History of steroid therapy Hyperlipidemia Hypertension Pneumonia Sleep apnea Thyroid disease Vitamin D deficiency Home Medications aspirin 81 mg chewable tablet 81 mg PO DAILY@0800 heart health 08/11/16 [History Last Taken 04/15/18] magnesium oxide 250 mg PO TIDCM supplement 04/16/18 [History Last Taken 04/15/18] blood sugar diagnostic (Blood Glucose Test strips) #100 ea 11/28/19 [Rx Last Taken Unknown] lancets 28 gauge (Easy Touch Lancets) #100 ea 02/27/20 [Rx Last Taken Unknown] OneTouch Verio Flex meter (blood-glucose meter) #1 ea 06/29/20 [Rx Last Taken Unknown] metoprolol tartrate 50 mg tablet 50 mg PO BID blood pressure #180 tabs 10/01/20 [Rx Last Taken Unknown] atorvastatin 20 mg tablet 20 mg PO QHS cholestoral 12/21/20 [History Last Taken Unknown] cholecalciferol (vitamin D3) 1,250 mcg (50,000 unit) capsule 50,000 unit PO QWEEK supplement 02/07/21 [History Last Taken 02/04/21] BD Insulin Syringe 1 mL 25 gauge x 5/8 (insulin syringe-needle U-100) #100 ea 05/24/21 [Rx Last Taken Unknown] lancets 33 gauge (OneTouch Delica Plus Lancet) #100 ea 08/11/21 [Rx Last Taken Unknown] ursodiol 300 mg capsule 300 mg PO BID #60 caps 05/12/22 [Rx Last Taken Unknown] pen needle, diabetic 32 gauge x 5/32 (BD Ultra-Fine Shani Pen Needle) #100 ea 06/01/22 [Rx Last Taken Unknown] insulin syringe-needle U-100 0.5 mL 31 gauge x 5/16 (BD Insulin Syringe Ultra- Fine) #100 ea 06/02/22 [Rx Last Taken Unknown] levothyroxine 175 mcg tablet 175 mcg PO DAILY #30 tabs 06/07/22 [Rx Last Taken Unknown] Banyan BranchTouch Verio test strips (blood sugar diagnostic) #100 ea 08/25/22 [Rx Last Taken Unknown] tirzepatide 12.5 mg/0.5 mL subcutaneous pen injector (Mounjaro) 12.5 mg (0.5 mL)subcut QWEEK #2 mL 09/16/22 [Rx Last Taken Unknown] amlodipine 5 mg tablet 5 mg PO DAILY 09/19/22 [History Last Taken Unknown] insulin lispro protamine-lispro 100 unit/mL (50-50) subcutaneous susp (Humalog Mix 50-50 Insuln U-100) See Rx Instructions subcut BID DM #53 mL 09/22/22 [Rx Last Taken Unknown] amoxicillin 875 mg-potassium clavulanate 125 mg tablet 1 tab PO BID #20 tabs 11/27/22 [Rx Last Taken Unknown] Allergy/AdvReac Type Severity Reaction Status Date / Time wool AdvReac Severe Hives Verified 09/19/22 10:46 Family History Grandfather Family history of heart disease Family history of hypertension Mother Family history of high cholesterol COPD (chronic obstructive pulmonary disease) Grandfather Family history of high cholesterol Sleep apnea Aunt Family history of hypertension Other Family history of hypertension in mother Surgical History History of esophagogastroduodenoscopy (EGD) history of gallbladder sugery History of surgery History of tonsillectomy and adenoidectomy Social History Smoking Status: Former smoker alcohol intake: never ROS ROS ED ROS Narrative Constitutional: No fever, no chills. HEENT: No sore throat. No neck pain. No loss of vision. No rhinorrhea. Cardiovascular: No chest pain. No palpitations. No pedal edema. Respiratory: No cough, no shortness of breath. Abdominal: No abdominal pain. No nausea. No vomiting. Genitourinary: No dysuria. No hematuria. Musculoskeletal: No myalgias. No arthralgias. Neurologic: No headaches. No dizziness. No lightheadedness. Skin: No rash. Healing laceration to left lower leg distally, with surrounding erythema and pustules. Psychiatric: No depression. No anxiety. EXAM Physical Exam Narrative Exam Narrative: Afebrile. Vital signs noted. Nontoxic-appearing. HEENT: Normocephalic. Atraumatic. PERRL, EOMI. Neck soft and supple. No pointtenderness or step off. Cardiovascular: Regular rate and rhythm. No murmurs, rubs, or gallops appreciated. Respiratory: No tachypnea. Lungs clear to auscultation bilaterally. Gastrointestinal: Abdomen soft, obese nontender, with normoactive bowel sounds. No rebound or guarding. Neurological: Awake. Alert. Nonfocal, nonlateralizing. Skin: No rash. Approximately 2 cm laceration, healing, left posterior lower legwith surrounding erythema. There are broken pustules surrounding consistent with folliculitis, but no fluctuance. He appears neurovascular intact distally. Musculoskeletal: No pedal edema. Full range of motion extremities. Const Vital Signs: 11/27/22 13:51 Temperature 97.1 F L Temperature Source Temporal Pulse Rate 86 Respiratory Rate 18 Blood Pressure 173/95 H Blood Pressure Mean 121 Pulse Ox 96 Oxygen Delivery Method Room Air MDM MDM MDM Narrative Medical decision making narrative: I reviewed the patient's prior records. Given that he is diabetic, and has poorcirculation of his lower extremities with a diagnosis of obesity, I do feel antibiotics are indicated for more of a folliculitis. I do not feel that he requires incision and drainage of an abscess because there is clinically not 1 present. I discussed with him incision and drainage, but I do not think that there would be any return of pus or purulent drainage as the area is more indurated. He was given his first dose of Augmentin here in the emergency department and a prescription written for the next 10 days. [facility] to 5 days if no improvement. Return instructionsto the emergency department were reviewed. I do not feel he requires any imaging or laboratory work at this time. Disposition is discharged home in stable condition. Discharge Plan Triage Chief Complaint: Wound ED Provider: Rad Morel Dx/Rx/DC Orders Clinical Impression: Encounter for post-traumatic wound check, Folliculitis Instructions: ED Folliculitis, ED Wound Check (Infection) Prescriptions: New amoxicillin-pot clavulanate 875-125 mg tablet 1 tab PO BID Qty: 20 0RF No Action (DME) lancets [Easy Touch Lancets] 28 gauge misc See Rx Instructions .ROUTE .MEDSUPPLY Qty: 100 6RF Rx Instructions: 3 times daily atorvastatin 20 mg tablet 20 mg PO QHS Patient Comments: TAKE 1 TABLET BY MOUTH AT BEDTIME (DME) BD Insulin Syringe 1 mL 25 gauge x 5/8 syringe See Rx Instructions .ROUTE .MEDSUPPLY Qty: 100 6RF Rx Instructions: bid amlodipine 5 mg tablet 5 mg PO DAILY ursodiol 300 mg capsule 300 mg PO BID Qty: 60 9RF Humalog Mix 50-50 Insuln U-100 100 unit/mL (50-50) suspension See Rx Instructions SC BID Qty: 53 6RF Rx Instructions: 60 units in am and 130 units at supper, subcutaneously twice a day; aspirin 81 MG tablet,chewable 81 mg PO DAILY@0800 magnesium oxide 250 MG tablet 250 mg PO TIDCM cholecalciferol (vitamin D3) 1,250 mcg (50,000 unit) capsule 50,000 unit PO QWEEK Rx Instructions: Every (DME) Blood Glucose Test Strip See Rx Instructions .ROUTE .MEDSUPPLY Qty: 100 6RF Rx Instructions: test 3 times daily (DME) blood-glucose meter [OneTouch Verio Flex meter] Misc See Rx Instructions .ROUTE .MEDSUPPLY Qty: 1 0RF Rx Instructions: As directed metoprolol tartrate 50 mg tablet 50 mg PO BID Qty: 180 1RF (DME) lancets [OneTouch Delica Plus Lancet] 33 gauge misc See Rx Instructions .ROUTE .MEDSUPPLY Qty: 100 8RF Rx Instructions: tid (DME) pen needle, diabetic [BD Ultra-Fine Shani Pen Needle] 32 gauge x 5/32 needle See Rx Instructions .Route Qty: 100 5RF Rx Instructions: BID (DME) insulin syringe-needle U-100 [BD Insulin Syringe Ultra-Fine] 0.5 mL 31 gauge x 5/16 syringe See Rx Instructions .ROUTE .MEDSUPPLY Qty: 100 6RF Rx Instructions: twice daily levothyroxine 175 mcg tablet 175 mcg PO DAILY Qty: 30 5RF (DME) OneTouch Verio test strips Strip See Rx Instructions .ROUTE .MEDSUPPLY Qty: 100 8RF Rx Instructions: tid Mounjaro 12.5 mg/0.5 mL pen injector 12.5 mg subcut QWEEK Qty: 2 4RF [facility] [Primary Care Provider] - 3-5 Days if not improving Disposition Disposition: Home, Self Care What to do if you have Problems For any increased pain, shortness of breath, bleeding, nausea or vomiting, chestpain, or any unexpected problems, contact your Primary Care Provider. Call [facility] ([phone]) or report to the closest Emergency Room. Call 911 if necessary. 11/27/22 1420 <Electronically signed by Rad Morel MD> Cosigner Signature (if applicable): CC: [facility] ~ Signed [facility] Work Phone: 1(994) 449-565309-11-2023 Procedure [facility] 11-21-2022 Procedure [facility]05-09-2023 History and physical note Author Missy Friend [facility] July 19, 2022 11:59am Note Date/Time July 19, 2022 11:59a m [facility] Medical Records Department [address] [place] [address] History & Physical Exam 07/19/22 1159 MR#: [id number] Acct: [id number] Name: CHRISTA SILVERMAN Rep #:[id number] : 1975 47 From: Missy Friend [facility] atus:[facility] [place] Location: [place] [address] History and Physical Date of Admission: 07/19/22 46 M who presents to the office today for Follow up. PMH sleep apnea BIPAP; DMII; HTN; hyperlipidemia; ARSEN; cholelithiasis; perianal/perirectal abscess s/p surgery .06.29; respiratory failure. 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 US 12.19.18 finding liver measurement 19.4cm with diffusely increased echogenicity of the liver; cholecystectomy; splenomegaly. *[facility] established clinic 09.09.21 with referral from PCP for evaluation of elevated liver enzymes. AST 43, alk phos 187, ALT WNL; platelet 127 (thrombocytopenia noted since ). Liver disease, biochemical workup and imaging. Biochemical workup?HIV, CMP, ferritin, coagulation, CBC, AMA, ROSIBEL comp, hepatitis, SEB, AFP, ANCA, ASM ab, ceruloplasmin, ammonia without pertinent abnormalities. ESR H25, CRP H10, haptoglobin L<10, A1c H8.4, LDH H260, Copper H166 CT abd/pel 7.02.01?noting hepatomegaly with steatosis; s/p cholecystectomy; moderate splenomegaly. US RUQ and elastography 7..?liver measures 13.9cm with fatty infiltration. Liver stiffness measures 11.2kPa F3. OV 12.8.22 liver disease, biochemical workup and liver biopsy. Biochemical workup?CMP (Na L131), coagulation, CBC (plt L133) without pertinent abnormality. Copper H137, CRP H12.5, ESR H28, LDH H274, haptoglobin L<10 Liver Biopsy .07.03?non necrotizing granulomatous inflammation; mild limiting necrosis with focal lobular necrosis Grade II; cirrhosis with normal hepatic architecture. No microorganisms noted. IGG subclasses. Start budesonide; if IgG4+also utilize Imuran. 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 [facility] attempted to contact Christa who declined to schedule at that time and would call them back. OV 3.2.23 Continues to have nausea and generalized abdominal pain which is relieved with pepto-bismol on most occasions. Mounjaro continues and has been increased with time, has been stable dose in the last 4-6 weeks. No confusion, sleep disturbance, balance issues/falling. Weights 07.11. 435lbs .11.01 446lbs 03.05.05 446lbs MELD? FIB-4 09.09.21 -? 2.58 02.23.22 20? 2.93 ROS Const Constitutional: No anorexia, fatigue, fever(s), weight change or sleep problems Eyes Eyes: No change in vision ENT ENT: No abnormal hearing, difficulty swallowing, mouth lesions, tongue swelling or throat swelling Resp Respiratory: No cough or shortness of breath Cardio Cardiology: No chest pain at rest, chest pain with exertion, shortness of breathor dyspnea on exertion Gastro GI: No difficulty swallowing Genitourinary Male: No difficulty urinating or burning urination Musc Musculoskeletal: No joint pain, joint swelling, muscle weakness or decreased muscle mass Skin Skin: No hair loss in leg, yellowing of the eye, itchy eyes, rash, skin ulcer orskin swelling Neuro Neurology: No abnormal hearing, abnormal movements, confusion, unsteady gait/balance or memory loss Psych Psychiatric: No anxiety, No confusion and No memory loss Endo Endocrine: No fatigue or weight change Aller/Imm Allergy/Immunologic: No itchy eyes, throat swelling or tongue swelling Christian/Lymp Hematologic/Lymphatic: No easy bleeding, easy bruising or enlarged lymph nodes Exam Const General: cooperative, comfortable, no acute distress and ill appearing chronically Nutritional Appearance: obese Orientation: alert, awake and oriented x3 HENMT Ears: hearing grossly normal bilaterally Eyes General: appearance normal, both eyes and all related structures Alignment and Position: alignment normal Sclera: sclerae normal Neck Neck: normal visual inspection and full ROM Carotids: normal carotid upstroke Chest Chest palpation & inspection: normal inspection of the chest Resp Effort & Inspection: normal respiratory effort, able to speak in complete sentences, symmetric chest movement, normal respiratory pattern, no audible wheezes and no cough Auscultation: Bilateral: Clear to Auscultation Cardio Rate: regular rate Rhythm: regular rhythm Heart Sounds: S1 normal and S2 normal Bruits: no carotid bruits GI Inspection: normal to inspection and obesity Musc Cervical Spine: normal cervical lordosis Thoracic/Lumbar Spine: thoracic and lumbar spine normal to inspection Skin General: no rashes or lesions noted Lesions: no lesions Rashes: no rashes Trauma: no lacerations or abrasions Wounds: no wounds Neuro General: patient alert, patient awake and patient oriented x3 Cognition: normal cognition Speech: speech normal Gait: normal gait Extrem General: normal to inspection, full ROM and no pedal edema Psych Appearance: grossly normal Mental Status: mental status grossly normal Mood: congruent mood Affect: normal affect Speech and Movement: speech and movement normal Attitude: cooperative Thought Process: normal Thought Content: normal Judgment: judgment good Quality Reporting Tobacco Screening ([facility] 138) Smoking Status: Former smoker Assessment and Plan Assessment and Plan (1) Cirrhosis: ?Status:?Chronic ?Plan: 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 He is not showingany signs of decompensation at this time.? His disease is complicated by splenomegaly, thrombocytopenia.? He denies any itching, jaundice, sleeping difficulties, weight gain.? He will be started on ursodiol 300 mg p.o. twice daily.? He will undergo screening for varices.? He already takes metoprolol 50 mg twice daily so he will not need nadolol for varices.? He is doing daily weights.? I had talked about putting him on Lasix and/or Aldactone.? 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 His current creatinine is ranging around 1.9-2.1.? He had an alpha-fetoprotein that was 2.2 and his last ammonia was 25.? He is not on lactulose at this time.? He is having 2-3 bowel movements a day.? We will recheck his ammonia level.? We also will have more recommendations after he undergoes an upper endoscopy.? We offered him a referral to [facility] hepatology program.? However he says that is too far and he may consider being evaluated in the future for liver transplant. (2) Primary biliary cholangitis: ?Status:?Acute (3) ARGUETA (nonalcoholic steatohepatitis): ?Status:?Acute ?Plan: We discussed glucose control and weight loss as the primary goals to decrease his risk of worsening liver disease secondary to obesity and diabetes. (4) Thrombocytopenia: ?Status:?Acute ?Plan: Monitor platelet count. ? ? ? Medications: New ursodiol 300 mg? PO BID 60 caps 9RF I have examined the patient and the H&P has been reviewed. There are no clinicalchanges since date of exam. 07/19/22 1159 <Electronically signed by Missy Guzman DO> Cosigner Signature (if applicable): CC: Missy Guzman, ; [facility]~ Signed [facility] Work Phone: 1(648) 190-795505-09-2023 Procedure [facility] 07-19-2022 Procedure [facility]06-08-2022 Miscellaneous Notes* Telephone Encounter - Yana Cummins LPN - 08/18/2021 5:02 PM EDT Faxed Yana Cummins LPN * Telephone Encounter - Roxana Munoz - 08/18/2021 4:57 PM EDT Crystal from [facility] office called regarding fax. They only received the letter and not the office notes that were to be attached. Fax number [phone] [facility] Miscellaneous Notes* Telephone Encounter - Leah Quinn LPN - 08/18/2021 11:21 AM EDT Patient notified. Leah Quinn LPN * Telephone Encounter - Elicia Zuniga MD - 08/18/2021 11:12 AM EDT Please notify patient that all his other test results were normal except for a low platelet which we discussed during his office visit. Follow-up with PCP for chronic ITP. Elicia Zuniga MD documented in this encounterCh[facility] note Author Martínez Spencer [facility] Note Date/Time June 18, 2024 3:48 pm [facility] Medical Records Department [address] [place] [address] Counseling Note - Pharmacy 06/18/24 1547 MR#: [id number] Acct: [id number] Name: CHRISTA SILVERMAN Rep #:[id number] : 1975 49 From: Martínez Spencer PCP: ANAM Caputo, [employer] Statu s:ADM IN Y Location: [facility] [address] Pharmacy [facility] has performed discharge medication reconciliation and counseling for this patient. The patient's discharge medication list was reviewed for discrepancies and discrepancies were resolved. The patient was counseled on the following discharge medications and changes in medications for homegoing were reviewed. The Reason for Use, instructions for use, and potential side effects were reviewed for all new medications. The patient's questions regarding all of their medications were answered. 1. Prednisone 40 PO daily The patient was able to verbally demonstrate an understanding of their dischargemedications. Medications at Discharge Home Medications aspirin 81 mg chewable tablet 81 mg PO DAILY@0800 heart health 08/11/16 magnesium oxide 250 mg PO BID supplement 04/16/18 lancets 28 gauge (Easy Touch Lancets) #100 ea 02/27/20 OneTouch Verio Flex meter (blood-glucose meter) #1 ea 06/29/20 atorvastatin 20 mg tablet 20 mg PO QHS cholestoral 12/21/20 BD Insulin Syringe 1 mL 25 gauge x 5/8 (insulin syringe-needle U-100) #100 ea 05/24/21 insulin syringe-needle U-100 0.5 mL 31 gauge x 5/16 (BD Insulin Syringe Ultra- Fine) #100 ea 06/02/22 OneTouch Verio test strips (blood sugar diagnostic) #100 ea 08/25/22 scopolamine base 1 mg over 3 days transdermal patch 1 patch transdermal Q72H PRNnausea and vomiting 01/26/23 pen needle, diabetic 32 gauge x 5/32 (BD Ultra-Fine Shani Pen Needle) #100 ea 07/20/23 insulin syringe-needle U-100 1 mL 31 gauge x 5/16 (BD Insulin Syringe Ultra- Fine) #100 ea 08/31/23 pen needle, diabetic 32 gauge x 5/32 (BD Ultra-Fine Shani Pen Needle) #50 ea 08/31/23 ursodiol 300 mg capsule 300 mg PO BID #60 caps 01/04/24 nebulizer tubing kits #1 ea 02/05/24 neublizer machine #1 ea 02/05/24 lancets 33 gauge (SetuServuch Delica Plus Lancet) #100 ea 02/22/24 albuterol sulfate 2.5 mg/3 mL (0.083 %) solution for nebulization 2.5 mg (3 mL) inhalation Q4-6H PRN shortness of breath or wheezing #180 mL 03/15/24 levothyroxine 175 mcg tablet 175 mcg PO DAILY #30 tabs 04/02/24 cholecalciferol (vitamin D3) 25 mcg (1,000 unit) capsule (Vitamin D3) 2,000 unitPO DAILY 04/30/24 fluticasone furoate 200 mcg/actuation blister powder for inhalation (Arnuity Ellipta) 1 inh inhalation Q24H #30 ea 04/30/24 tirzepatide 10 mg/0.5 mL subcutaneous pen injector (Vignesh) 10 mg subcut QWEEK04/30/24 dapagliflozin propanediol 10 mg tablet (Farxiga) 10 mg PO QDAY #90 tabs 05/07/24 metoprolol succinate 200 mg tablet,extended release 24 hr 200 mg PO QDAY #90 tabs 05/07/24 blood sugar diagnostic (Blood Glucose Test strips) #100 ea 06/12/24 insulin regular hum U-500 conc 500 unit/mL(3 mL) subcut pen (Humulin R U-500 (Conc) Insulin Kwikpen) See Rx Instructions .Route .COMPLEX #30 mL 06/18/24 prednisone 20 mg tablet 40 mg (2 x 20 mg) PO BREAKFAST 30 days #60 tabs 06/18/24 06/18/24 1548 <Electronically signed by Martínez Hartzle r> Date _ Martínez Huffman Signature (if applicable): Date CC: ~ Signed [facility] Work Phone: Discharge summary Author Pastora Terry [facility] Note Date/Time June 18, 2024 3:11 pm [facility] Medical Records Department [address] [place] [address] Instructions for Home/Discharge Instructions 06/18/24 1507 MR#: [id number] Acct: [id number] Name: CHRISTA SILVERMAN Rep #:[id number] : 1975 49 From: Pastora Terry MD PCP: ANAM Caputo, [employer] Statu s:ADM IN Discharge Instructions Diet Discharge Diet: - (Carbohydrate consistent, cardiac diet) DC O2, CPAP, BIPAP needs Home O2 Discharge instructions: No Dressing / Incision Discharge Activity: - (Increase activity as tolerated) Follow Up Care Test Results: Test results from this visit will be discussed in further detail at your follow- up appointment, if applicable. Discharge Plan Admission Admit Date/Time: 06/14/24 16:08 Primary Reason for Your Visit: High calcium and creatinine Attending Provider: Pastora Terry Primary Care Provider: Jordana Baez Consulting Providers: Madeleine Benoit; Grecia Marroquin; Hipolito Jackson; [place] Instructions Patient Instructions: Pulmonary Sarcoidosis Additional Instructions / Restrictions: DISCHARGE INSTRUCTIONS PLEASE READ *Please take this with you to your next doctors appointment* - Your insulin regimen upon discharge will be 70 units of your long-acting twicedaily -You will need to call your endocrinology office daily with your glucoses so youcan be monitored closely and your insulin adjusted as needed, please call the office tomorrow -You will be discharged on 40 mg of oral prednisone which you will take until you follow-up in the pulmonology office -Please follow-up with pulmonology upon discharge on 07/08. If there are any questions or concerns about your appointment please call their office -Please follow-up with nephrology upon discharge. Please call their office to schedule hospital follow-up appointment upon discharge. -Would recommend lab work (BMP) to check your kidney function and calcium in 3- 5days through your primary care physician's office. Please call their office upon discharge to obtain order for lab work. -Your lisinopril has been held given your kidney function, please do not resume this until talking to your primary care physician or snuff container inspector -Please call your primary care provider's office upon discharge to schedule a hospital follow up within 1 week. -For any concerning signs or symptoms please call 911 or proceed to the nearest emergency department Discharge Orders/Prescriptions Prescriptions: New prednisone 20 mg Tablet 40 mg PO BREAKFAST 30 Days Qty: 60 0RF Continued (DME) lancets [Easy Touch Lancets] 28 gauge misc See Rx Instructions .ROUTE .MEDSUPPLY Qty: 100 6RF Rx Instructions: 3 times daily atorvastatin 20 mg tablet 20 mg PO QHS Patient Comments: TAKE 1 TABLET BY MOUTH AT BEDTIME (DME) BD Insulin Syringe 1 mL 25 gauge x 5/8 syringe See Rx Instructions .ROUTE .MEDSUPPLY Qty: 100 6RF Rx Instructions: bid scopolamine base 1 mg over 3 days patch 3 day 1 patch transdermal Q72H PRN (Reason: nausea and vomiting) (DME) nebulizer tubing kits See Rx Instructions .ROUTE .MEDSUPPLY Qty: 1 0RF Rx Instructions: As directed (DME) neublizer machine See Rx Instructions .ROUTE .MEDSUPPLY Qty: 1 0RF Rx Instructions: As directed Mounjaro 10 mg/0.5 mL pen injector 10 mg subcut QWEEK Arnuity Ellipta 200 mcg/actuation blister with device 1 inh inhalation Q24H Qty: 30 5RF metoprolol succinate 200 mg tablet extended release 24 hr 200 mg PO QDAY Qty: 90 3RF dapagliflozin propanediol [Farxiga] 10 mg tablet 10 mg PO QDAY Qty: 90 3RF aspirin 81 MG tablet,chewable 81 mg PO DAILY@0800 magnesium oxide 250 MG tablet 250 mg PO BID cholecalciferol (vitamin D3) [Vitamin D3] 25 mcg (1,000 unit) capsule 2,000 unit PO DAILY (DME) blood-glucose meter [OneTouch Verio Flex meter] Misc See Rx Instructions .ROUTE .MEDSUPPLY Qty: 1 0RF Rx Instructions: As directed (DME) insulin syringe-needle U-100 [BD Insulin Syringe Ultra-Fine] 0.5 mL 31 gauge x 5/16 syringe See Rx Instructions .ROUTE .MEDSUPPLY Qty: 100 6RF Rx Instructions: twice daily (DME) OneTouch Verio test strips Strip See Rx Instructions .ROUTE .MEDSUPPLY Qty: 100 8RF Rx Instructions: tid (DME) pen needle, diabetic [BD Ultra-Fine Shani Pen Needle] 32 gauge x 5/32 needle See Rx Instructions .Route Qty: 100 5RF Rx Instructions: BID (DME) insulin syringe-needle U-100 [BD Insulin Syringe Ultra-Fine] 1 mL 31 gauge x 5/16 syringe See Rx Instructions .Route Qty: 100 4RF Rx Instructions: As directed (DME) pen needle, diabetic [BD Ultra-Fine Shani Pen Needle] 32 gauge x 5/32 needle See Rx Instructions .ROUTE .MEDSUPPLY Qty: 50 5RF Rx Instructions: As directed ursodiol 300 mg capsule 300 mg PO BID Qty: 60 9RF (DME) lancets [OneTouch Delica Plus Lancet] 33 gauge misc See Rx Instructions .ROUTE .MEDSUPPLY Qty: 100 8RF Rx Instructions: tid albuterol sulfate 2.5 mg /3 mL (0.083 %) solution for nebulization 2.5 mg inhalation Q4-6H PRN (Reason: shortness of breath or wheezing) Qty: 180 3RF levothyroxine 175 mcg tablet 175 mcg PO DAILY Qty: 30 5RF (DME) Blood Glucose Test Strip See Rx Instructions .ROUTE .MEDSUPPLY Qty: 100 6RF Rx Instructions: test 3 times daily Changed Humulin R U-500 (Conc) Kwikpen 500 unit/mL (3 mL) insulin pen See Rx Instructions .ROUTE .COMPLEX Qty: 30 0RF Rx Instructions: 70 am 70 pm subcutaneously twice a day; Discontinued gabapentin 300 mg capsule 300 mg PO TID PRN (Reason: neuropathy) Qty: 90 0RF lisinopril 20 mg tablet 20 mg PO QDAY Referrals / Follow Up: Lake Strauss DO [Med Staff - Active Staff] - (Please follow with pulmonology on07/08/2024, if there are any questions about your appointment please contact their office) Madeleine Benoit MD [Med Staff - Consulting] - ( -Please follow-up with nephrology upon discharge. Please call their office to schedule hospital follow-up appointment upon discharge.) Jordana Baez C, [employer] [Primary Care Provider] - Within 1 Week Disposition Disposition (needs filled in before D/C Order can be placed): Home, Self Care 06/18/24 1511<Electronically signed by Pastora Terry MD>Pastora Terry MD CC: [facility] [employer] Jordana Baez; Dr. Hipolito Jackson MD; Dr. Lake Strauss DO; Dr. Madeleine Benoit MD; Dr. Grecia Marroquin MD ~ Signed [facility] Work Phone: Evaluation note* Diagnosis Onset Date Resolution Status Acute hypoxemic respiratory failure acute Diabetes chronic Obesity [facility] Work Phone: Evaluation note* Diagnosis Onset Date Resolution Status Diabetes chronic Hypothyroidism chronic Mixed hyperlipidemia chronic Obesity [facility] Work Phone: Evaluation note* Diagnosis Onset Date Resolution Status Diabetes chronic Hypothyroidism chronic Mixed hyperlipidemia chronic Obesity chronic SONIA (obstructive sleep apnea) acute Obesity [facility] Work Phone: Evaluation note* Diagnosis Onset Date Resolution Status Diabetes chronic Hypothyroidism chronic Mixed hyperlipidemia chronic Obesity chronic SONIA (obstructive sleep apnea) acute Obesity chronic Liver disease acute [facility] Work Phone: Evaluation note* Diagnosis Onset Date Resolution Status SONIA (obstructive sleep apnea) acute Obesity chronic Liver disease acute SONIA (obstructive sleep apnea) acute Obesity chronic [facility] Work Phone: Evaluation note* Diagnosis Onset Date Resolution Status SONIA (obstructive sleep apnea) acute Obesity chronic Liver disease acute SONIA (obstructive sleep apnea) acute Obesity chronic Hypertension chronic Hypothyroidism chronic Morbid obesity chronic Type 2 diabetes mellitus without complications [facility] Work Phone: Evaluation note* Diagnosis Onset Date Resolution Status Liver disease acute SONIA (obstructive sleep apnea) acute Obesity 2021 chronic Hypertension chronic Hypothyroidism chronic Morbid obesity chronic Type 2 diabetes mellitus without complications chronic Diabetes chronic Hypothyroidism chronic Obesity 2021 chronic [facility] Work Phone: Evaluation note* Diagnosis Onset Date Resolution Status Diabetes chronic Hypothyroidism chronic Obesity 2021 chronic Liver disease chronic [facility] Work Phone: Evaluation note* Diagnosis Onset Date Resolution Status Diabetes chronic Hypothyroidism chronic Obesity 2021 chronic Liver disease chronic Hypercalcemia chronic Hypertension chronic Hypothyroidism chronic Type 2 diabetes mellitus without complications [facility] Work Phone: Evaluation note* Diagnosis Onset Date Resolution Status Hypercalcemia chronic Hypertension chronic Hypothyroidism chronic Type 2 diabetes mellitus without complications chronic ARGUETA (nonalcoholic steatohepatitis) acute Primary biliary cholangitis acute Thrombocytopenia acute Cirrhosis [facility] Work Phone: Evaluation note* Diagnosis Onset Date Resolution Status ARGUETA (nonalcoholic steatohepatitis) acute Thrombocytopenia acute Cirrhosis chronic Primary biliary cholangitis chronic ARGUETA (nonalcoholic steatohepatitis) acute Thrombocytopenia acute Cirrhosis chronic Primary biliary cholangitis [facility] Work Phone: Evaluation note* Diagnosis Onset Date Resolution Status ARGUETA (nonalcoholic steatohepatitis) acute Thrombocytopenia acute Cirrhosis chronic Primary biliary cholangitis chronic Obesity 2021 chronic SONIA (obstructive sleep apnea) chronic Cough noneactive [facility] Work Phone: evaluation note* Diagnosis Abnormal liver function tests Other abnormal blood chemistry Granuloma present on biopsy of liver [facility] Onset Date Resolution Status ARGUETA (nonalcoholic steatohepatitis) acute Thrombocytopenia acute Cirrhosis chronic Primary biliary cholangitis chronic Obesity 2021 chronic SONIA (obstructive sleep apnea) chronic Cough noneactive Elevated alkaline phosphatase level chronic Hypothyroidism chronic Obesity 2021 chronic Type 2 diabetes mellitus without complications [facility] Work Phone: Evaluation note* Diagnosis Onset Date Resolution Status ARGUETA (nonalcoholic steatohepatitis) acute Cirrhosis chronic Elevated alkaline phosphatase level chronic Primary biliary cholangitis chronic Thrombocytopenia chronic Chronic kidney disease chron ic Hypothyroidism chronic Microalbuminuria chronic Obesity chronic Type 2 diabetes mellitus without complications [facility] Work Phone: Evaluation note* Diagnosis Onset Date Resolution Status Chronic kidney disease chron ic Hypothyroidism chronic Microalbuminuria chronic Obesity chronic Type 2 diabetes mellitus without complications chronic ARGUETA (nonalcoholic steatohepatitis) acute Cirrhosis chronic Elevated alkaline phosphatase level chronic Primary biliary cholangitis chronic Thrombocytopenia chronic Hypothyroidism chronic Morbid obesity chronic Type 2 diabetes mellitus without complications chronic [facility] Work Phone: Evaluation note* Diagnosis Onset Date Resolution Status ARGUETA (nonalcoholic steatohepatitis) acute Cirrhosis chronic Elevated alkaline phosphatase level chronic Primary biliary cholangitis chronic Thrombocytopenia chronic Hypothyroidism chronic Morbid obesity chronic Type 2 diabetes mellitus without complications chronic [facility] Work Phone: History and physical note Author Missy Friend [facility] November 21, 2022 7:59am Note Date/Time November 21, 2022 8:00am [facility] Medical Records Department [address] [place] [address] History & Physical Exam 11/21/22 0759 MR#: [id number] Acct: [id number] Name: CHRISTA SILVERMAN Rep #:[id number] : 1975 47 From: Missy Guzman DO PCP: [facility] St atus:[facility] [place] Location: [address] History and Physical Date of Admission: 11/21/22 7 M who presents to the office today for PMH sleep apnea BIPAP; DMII; HTN; hyperlipidemia; ARSEN; cholelithiasis; perianal/perirectal abscess s/p surgery .06.29; respiratory failure. 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 US 12.19.18 finding liver measurement 19.4cm with diffusely increased echogenicity of the liver; cholecystectomy; splenomegaly. *[facility] established clinic 09.09.21 with referral from PCP for evaluation of elevated liver enzymes. AST 43, alk phos 187, ALT WNL; platelet 127 (thrombocytopenia noted since ). Liver disease, biochemical workup and imaging. Biochemical workup HIV, CMP, ferritin, coagulation, CBC, AMA, ROSIBEL comp, hepatitis, SEB, AFP, ANCA, ASM ab, ceruloplasmin, ammonia without pertinent abnormalities. ESR H25, CRP H10, haptoglobin L<10, A1c H8.4, LDH H260, Copper H166 CT abd/pel 09.20.21 noting hepatomegaly with steatosis; s/p cholecystectomy; moderate splenomegaly. US RUQ and elastography 10.05.21 liver measures 13.9cm with fatty infiltration. Liver stiffness measures 11.2kPa F3. OV 12 liver disease, biochemical workup and liver biopsy. Biochemical workup CMP (Na L131), coagulation, CBC (plt L133) without pertinent abnormality. Copper H137, CRP H12.5, ESR H28, LDH H274, haptoglobin L<10 Liver Biopsy 03.16.22 non necrotizing granulomatous inflammation; mild limiting necrosis with focal lobular necrosis Grade II; cirrhosis with normal hepatic architecture. No microorganisms noted. IGG subclasses. Start budesonide; if IgG4+also utilize Imuran. ? 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 [facility] attempted to contact Christa who declined to schedule at that time and would call them back. OV 3.. Continues to have nausea and generalized abdominal pain which is relieved with pepto-bismol on most occasions. Mounjaro continues and has been increased with time, has been stable dose in the last 4-6 weeks. No confusion, sleep disturbance, balance issues/falling. ? EGD 07.19.22 irregular Zline 40cm; large amount of food residue; portal HTN gastropathy; retained food in duodenum. ? Gastric emptying study; repeat in 4 months. ? Gastric emptying study 08.16.22 49.13 minutes (12-56). OV 08.29.22 he is having some intermittent morning nausea; denies identifiable trigger but feels it might be r/t foods. If he eats when he is nauseous he will feel worse. BM occur daily and does not improve symptoms. Continues with Monjouro 7.5mg, will possibly increase; morning BS continue to be elevated, evening Humalog 50/50 was increased. Weights 05.. 435lbs 12.. 446lbs 03 446lbs 08.29.22 448lbs MELD? 06.30.22 -? 02.23.22? ROS Const Constitutional: No anorexia, fatigue, fever(s), weight change or sleep problems Eyes Eyes: No change in vision ENT ENT: No abnormal hearing, difficulty swallowing, mouth lesions, tongue swelling or throat swelling Resp Respiratory: No cough or shortness of breath Cardio Cardiology: No chest pain at rest, chest pain with exertion, shortness of breathor dyspnea on exertion Gastro GI: No difficulty swallowing Genitourinary Male: No difficulty urinating or burning urination Musc Musculoskeletal: No joint pain, joint swelling, muscle weakness or decreased muscle mass Skin Skin: No hair loss in leg, yellowing of the eye, itchy eyes, rash, skin ulcer orskin swelling Neuro Neurology: No abnormal hearing, abnormal movements, confusion, unsteady gait/balance or memory loss Psych Psychiatric: No anxiety, No confusion and No memory loss Endo Endocrine: No fatigue or weight change Aller/Imm Allergy/Immunologic: No itchy eyes, throat swelling or tongue swelling Christian/Lymp Hematologic/Lymphatic: No easy bleeding, easy bruising or enlarged lymph nodes Exam Const General: cooperative, comfortable, no acute distress and ill appearing chronically Nutritional Appearance: obese Orientation: alert, awake and oriented x3 [facility] Ears: hearing grossly normal bilaterally Eyes General: appearance normal, both eyes and all related structures Alignment and Position: alignment normal Sclera: sclerae normal Neck Neck: normal visual inspection and full ROM Carotids: normal carotid upstroke Chest Chest palpation & inspection: normal inspection of the chest Resp Effort & Inspection: normal respiratory effort, able to speak in complete sentences, symmetric chest movement, normal respiratory pattern, no audible wheezes and no cough Auscultation: Bilateral: Clear to Auscultation Cardio Rate: regular rate Rhythm: regular rhythm Heart Sounds: S1 normal and S2 normal Bruits: no carotid bruits GI Inspection: normal to inspection and obesity Musc Cervical Spine: normal cervical lordosis Thoracic/Lumbar Spine: thoracic and lumbar spine normal to inspection Skin General: no rashes or lesions noted Lesions: no lesions Rashes: no rashes Trauma: no lacerations or abrasions Wounds: no wounds Neuro General: patient alert, patient awake and patient oriented x3 Cognition: normal cognition Speech: speech normal Gait: normal gait Extrem General: normal to inspection, full ROM and no pedal edema Psych Appearance: grossly normal Mental Status: mental status grossly normal Mood: congruent mood Affect: normal affect Speech and Movement: speech and movement normal Attitude: cooperative Thought Process: normal Thought Content: normal Judgment: judgment good Quality Reporting Tobacco Screening ([facility] 138) Smoking Status: Former smoker Assessment and Plan Assessment and Plan (1) Cirrhosis: Status: Chronic Plan: 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 He is not showing any signs of decompensation at this time. His disease is complicated by splenomegaly, thrombocytopenia. He denies any itching, jaundice, sleeping difficulties, weight gain. He will be started on ursodiol 300 mg p.o. twice daily. He will undergo screening for varices. He already takes metoprolol 50 mg twice daily so he will not need nadolol for varices. He is doing daily weights. I had talked about putting him on Lasix and/or Aldactone. 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 His current creatinine is ranging around 1.9-2.1. He had an alpha-fetoprotein that was 2.2 and his last ammonia was 25. He is not on lactulose atthis time. He is having 2-3 bowel movements a day. We will recheck his ammonia level. We also will have more recommendations after he undergoes an upper endoscopy. We offered him a referral to [facility] hepatology program. However he says that is too far and he may consider being evaluated in the future for livertransplant. (2) Primary biliary cholangitis: Status: Chronic Plan: The biopsies of his liver did show noncaseating granulomas that I suspect is from probability cirrhosis because his acid-fast stain was negative. He has no history of sarcoidosis, amyloidosis or hemochromatosis. Also his antimitochondrial antibody was negative which goes against primary biliary cholangitis. I will keep him on ursodiol 300 mg p.o. twice daily. He should beon 13 mg/kg body weight for his dosing of ursodiol. However his antimitochondrial antibody is negative and I would like him to be seen at a transplant center prior to increasing his medicine. (3) ARGUETA (nonalcoholic steatohepatitis): Status: Acute Plan: We discussed glucose control and weight loss as the primary goals to decrease his risk of worsening liver disease secondary to obesity and diabetes. (4) Thrombocytopenia: Status: Acute Plan: Monitor platelet count. I have examined the patient and the H&P has been reviewed. There are no clinicalchanges since date of exam. 11/21/22 0759 <Electronically signed by Missy Guzman DO> Cosigner Signature (if applicable): CC: Missy Guzman DO; [facility]~ Signed [facility] Work Phone: Hospital Discharge instructionsW[facility] Work Phone: Hospital Discharge instructions Additional Instructions Thank you for trusting us with your care today! Please take Tylenol (2 pills, 650 mg), ibuprofen (2 pills, 400 mg) every 6 hours as needed for pain and fever control. Please return to the emergency department if your symptoms change or worsen. Please follow with your primary care physician for further outpatient evaluation and management.[facility] Work Phone: Reason for referral (narrative)No reason for referral information availableWUniversity [facility]als [facility] Work Phone: Reason for visit Narrative* MRI/CT (Routine) - Closed Specialty Diagnoses / Procedures Referred By Contac t Referred To Contact [facility] Diagnoses Cardiomyopathy, unspecified (HCC) Localized edema Atherosclerotic heart disease of [place] coronary artery without angina pectoris Essential (primary) hypertension Pure hypercholesterolemia, unspecified Mixed hyperlipidemia Shortness of breath CARDIOMYOPATHY EDEMA ATHEROACLAROTIC HEART DISEASE HYPERTENSION SOB ORDER IN SCANNED DOC Procedures CARDIAC MRI W/WO CONTRAST & FURTHER SEQ MRI WWO CARD 440 Kirstie Maxwell MD [address] [address] Phone: tel: fax: [facility] [address] [place] [address] Phone: tel: fax: Referral ID Status Reason Start Date Expiration Date Visits Re quested Visits Authorized [id number] Closed 08/29/2024 10/28/2024 1 1 [facility] Summary Purpose Family History No Family History Records Found Relationship Condition Age at Onset Recorded Date/T tristian Not Specified Family history of hy pertension in mother Unknown grandfather Family history of cardiac disorder Unknow n Family history of hypertension Unknown mother Family history of hypercholesterolemia Un known grandfather Family history of hypercholesterolemia Un known aunt Family history of hypertension Unknown Relationship Condition Age at Onset Recorded Date/T tristian Not Specified Family history of hy pertension in mother Unknown grandfather Family history of cardiac disorder Unknow n Family history of hypertension Unknown mother Family history of hypercholesterolemia Un known Chronic obstructive pulmonary disease Unk nown grandfather Family history of hypercholesterolemia Un known Sleep apnea Unknown aunt Family history of hypertension Unknown Relationship Condition Age at Onset Recorded Date/T tristian grandfather Family history of cardiac disorder Unknow n Family history of hypertension Unknown Hyperlipidemia Unknown Hypertension Unknown Diabetes mellitus Unknown mother Family history of hypercholesterolemia Un known Chronic obstructive pulmonary disease Unk nown Family history of hypertension in mother Unknown grandfather Family history of hypercholesterolemia Un known Sleep apnea Unknown aunt Family history of hypertension Unknown sister Malignant neoplasm Unknown father Diabetes mellitus Unknown Advance Directives No Advanced Directives Records Found Advance Directive Response Recorded Date/ Time Living Will No February 07 10:08pm Power of Software Engineer Kernel No February 07, 2021 10:08pm Advance Directive Response Recorded Date/ Time Living Will No February 07 9:08pm Power of Software Engineer Kernel No February 07, 2021 9:08pm Advance Directive Response Recorded Date/ Time Living Will No July 14, 2022 12 :46pm Power of Software Engineer Kernel No July 14, 2022 12:46pm Advance Directive Response Recorded Date/ Time Living Will No September 02, 2022 5:06pm Power of Software Engineer Kernel No September 02 5:06pm Advance Directive Response Recorded Date/ Time Living Will No November 17 11:02am Power of Software Engineer Kernel No November 17, 2022 11:02am Advance Directive Response Recorded Date/ Time Living Will No November 27, 2022 1:57pm Power of Software Engineer Kernel No November 1:57pm Advance Directive Response Recorded Date/ Time Living Will No November 27, 2022 12:57pm Power of Software Engineer Kernel No November 12:57pm Advance Directive Response Recorded Date/ Time Living Will No July 10, 2023 10:13am Power of Software Engineer Kernel No July 09 10:13am Advance Directive Response Recorded Date/ Time Living Will No June 14, 2024 2:38pm Do you have a Healthcare Power of Software Engineer Kernel? No June 14, 2024 2:38pm Advance Directive Response Recorded Date/ Time Living Will No June 14, 2024 5:41pm Do you have a Healthcare Power of Software Engineer Kernel? No June 14, 2024 5:41pm Hospital Course Note Send Summary: Note Recipient s: Rusty Thakkar MD Discharge: Summary:Admission Date: .10-Jan-2018 11:17:00Discharge Date: [id number] Physician at Discharge: Zac Tabares Reason: RUQ painFinal Discharge Diagnoses: Acute cholecystitisProcedures: Date: 11-Jan-2018 10:35:00Procedure Name: Laparoscopy, laparotomy, open cholecystectomy Condition at Discharge: SatisfactoryDisposition at Discharge: Home Health Care - NewVital Signs: T [id number]%Date/Time01/13 6: 6:00103/15 6:00103/15 6:00103/15 6:00Range(36C - 36.1C ) (88 - 99 [...] obesity, thrombocytopenia, and leukopenia was transferred from [facility] (more content not included)... Note Post Operative Note: PreOp D iagnosis: Acute on chronic cholecystitisPost- Procedure Diagnosis: Acute on chronic, gangrenous cholecystitisProcedure: Laparoscopy, laparotomy, open cholecystectomySurgeon: Dr. ThakkarResident/Fellow/Other Back Tender Cloth Printing: Dr. Clementina Pablothesia: General ETTI.V. Fluids: 1800ccEstimated [...] gangrenous cholecystitisProcedure: Laparoscopy, laparotomy, open cholecystectomySurgeon: Dr. ThakkarResident/Fellow/Other Back Tender Cloth Printing: Dr. Clementina Pablothesia: General ETTI.V. Fluids: 1800ccEstimated [...] Operative Note, Signature/Cosig (more content not included)... Chief Complaint and Reason for Visit Chief Complaint ACUTE HYPOXEMIC REPI RATORY FAILURE ACUTE HYPOXEMIC REPIRATORY FAILURE ACUTE HYPOXEMIC REPIRATORY FAILURE ACUTE HYPOXEMIC REPIRATORY FAILURE ACUTE HYPOXEMIC REPIRATORY FAILURE POST COVID19 4 M FU POST COVID Reason for Visit Acute hypoxemic resp iratory failure Diabetes Obesity Chief Complaint POST COVID19 4 M FU POST COVID SONIA SONIA Reason for Visit Diabetes Hypothyroidism Mixed hyperlipidemia Obesity Chief Complaint POST COVID19 4 M FU POST COVID SONIA; LM 06/02 SONIA SONIA sleep problems Reason for Visit Diabetes Hypothyroidism Mixed hyperlipidemia Obesity SONIA (obstructive sleep apnea) Obesity Chief Complaint 4 M FU POST COVID SONIA; LM 06/02 SONIA SONIA sleep problems Reason for Visit Diabetes Hypothyroidism Mixed hyperlipidemia Obesity SONIA (obstructive sleep apnea) Obesity Chief Complaint 4 M FU POST COVID SONIA; LM 06/02 SONIA SONIA sleep problems SONIA; BIPAP *INVENTORY TAGGED Reason for Visit Diabetes Hypothyroidism Mixed hyperlipidemia Obesity SONIA (obstructive sleep apnea) Obesity Chief Complaint 4 M FU POST COVID SONIA; LM 06/02 SONIA SONIA sleep problems SONIA; BIPAP *INVENTORY TAGGED Consult E-ORDER Reason for Visit Diabetes Hypothyroidism Mixed hyperlipidemia Obesity SONIA (obstructive sleep apnea) Obesity Liver disease Chief Complaint SONIA; LM 06/02 SONIA SONIA sleep problems SONIA; BIPAP *INVENTORY TAGGED Consult E-ORDER 3 M FU SPEENOMEGALY Reason for Visit SONIA (obstructive sle ep apnea) Obesity Liver disease SONIA (obstructive sleep apnea) Obesity Chief Complaint sleep problems SONIA; BIPAP *INVENTORY TAGGED Consult E-ORDER 3 M FU SPEENOMEGALY 4 M FU LIVER DISEASE Reason for Visit SONIA (obstructive sle ep apnea) Obesity Liver disease SONIA (obstructive sleep apnea) Obesity Hypertension Hypothyroidism Morbid obesity Type 2 diabetes mellitus without complications Chief Complaint Consult E-ORDER 3 M FU SPEENOMEGALY 4 M FU LIVER DISEASE 3 M FU E-ORDER Reason for Visit Liver disease SONIA (obstructive sleep apnea) Obesity Hypertension Hypothyroidism Morbid obesity Type 2 diabetes mellitus without complications Diabetes Hypothyroidism Obesity Chief Complaint 3 M FU E-ORDER FU ALSO E ORDERS DR GUZMAN Reason for Visit Diabetes Hypothyroidism Obesity Liver disease Chief Complaint 3 M FU E-ORDER FU ALSO E ORDERS DR GUZMAN RIGHT LOBE BIOPSY 3 M FU E ORDER Reason for Visit Diabetes Hypothyroidism Obesity Liver disease Hypercalcemia Hypertension Hypothyroidism Type 2 diabetes mellitus without complications Chief Complaint 3 M FU E ORDER 2 MO FU Reason for Visit Hypercalcemia Hypertension Hypothyroidism Type 2 diabetes mellitus without complications ARGUETA (nonalcoholic steatohepatitis) Primary biliary cholangitis Thrombocytopenia Cirrhosis Chief Complaint 2 MO FU SHELTER USE OF INSULIN 2 WK FU rt shoulder Reason for Visit ARGUETA (nonalcoholic s teatohepatitis) Thrombocytopenia Cirrhosis Primary biliary cholangitis ARGUETA (nonalcoholic steatohepatitis) Thrombocytopenia Cirrhosis Primary biliary cholangitis 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 shoulder 1 Y FU 6 M FU Reason for Visit ARGUETA (nonalcoholic s teatohepatitis) Thrombocytopenia Cirrhosis Primary biliary cholangitis Obesity SONIA (obstructive sleep apnea) Cough 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 shoulder 1 Y FU 6 M FU Reason for Visit ARGUETA (nonalcoholic s teatohepatitis) Thrombocytopenia Cirrhosis Primary biliary cholangitis Obesity SONIA (obstructive sleep apnea) Cough Elevated alkaline phosphatase level Hypothyroidism Obesity Type 2 diabetes mellitus without complications 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 shoulder 1 Y FU 6 M FU WOUND Reason for Visit ARGUETA (nonalcoholic s teatohepatitis) Thrombocytopenia Cirrhosis Primary biliary cholangitis Obesity SONIA (obstructive sleep apnea) Cough Elevated alkaline phosphatase level Hypothyroidism Obesity Type 2 diabetes mellitus without complications Chief Complaint 2 wk f/u EORDER 4 M FU 2 ORDERING DOCTORS Reason for Visit ARGUETA (nonalcoholic s teatohepatitis) Cirrhosis Elevated alkaline phosphatase level Primary biliary cholangitis Thrombocytopenia Chronic kidney disease Hypothyroidism Microalbuminuria Obesity Type 2 diabetes mellitus without complications Chief Complaint 4 M FU 2 ORDERING DOCTORS 4 MO FU E ORDER 4 M FU E-ORDER Reason for Visit Chronic kidney disea se Hypothyroidism Microalbuminuria Obesity Type 2 diabetes mellitus without complications ARGUETA (nonalcoholic steatohepatitis) Cirrhosis Elevated alkaline phosphatase level Primary biliary cholangitis Thrombocytopenia Hypothyroidism Morbid obesity Type 2 diabetes mellitus without complications Chief Complaint 4 M FU 2 ORDERING DOCTORS 4 MO FU E ORDER 4 M FU E-ORDER R74.8 Abnormal levels of other serum enzymes Reason for Visit Chronic kidney disea se Hypothyroidism Microalbuminuria Obesity Type 2 diabetes mellitus without complications ARGUETA (nonalcoholic steatohepatitis) Cirrhosis Elevated alkaline phosphatase level Primary biliary cholangitis Thrombocytopenia Hypothyroidism Morbid obesity Type 2 diabetes mellitus without complications Chief Complaint 2 ORDERING DOCTORS 4 MO FU E ORDER 4 M FU E-ORDER R74.8 Abnormal levels of other serum enzymes cold sx Reason for Visit ARGUETA (nonalcoholic s teatohepatitis) Cirrhosis Elevated alkaline phosphatase level Primary biliary cholangitis Thrombocytopenia Hypothyroidism Morbid obesity Type 2 diabetes mellitus without complications Chief Complaint Admit Date G47.33 - Obstructive sleep apnea (adult) (pediatri February 20, 2024 11:09am G47.33 - Obstructive sleep apnea (adult) (pediatri February 26, 2024 12:21pm 6 wk FU March 19, 2024 9: 38am SOB March 28, 2024 1 2:36pm EORDERS April 02, 2024 1 :11pm 3 M FU April 23, 2024 10:27am 3 M FU April 24, 2024 11:43am 6-8 WK FU April 30, 2024 10:48am ABN ECHO (RUFENER) May 07, 2024 9:54am E-ORDER June 13, 2024 1:59 pm ARSEN ON CKD HYPERCALCEMIA June 14, 2024 4:08pm Reason for Visit Admit Date Hypoxemia March 19, 2024 9: 38am Obesity March 19, 2024 9: 38am SONIA (obstructive sleep apnea) March 9:38am Right middle lobe pulmonary nodule Janua 2024 9:38am Shortness of breath March 19, 2024 9: 38am Lung nodule seen on imaging study Februa ry 2024 10:27am ARGUETA (nonalcoholic steatohepatitis) Febr uary 2024 10:27am Cirrhosis April 23, 2024 10:27am Elevated alkaline phosphatase level Febr uary 2024 10:27am Primary biliary cholangitis April 10:27am Thrombocytopenia April 23, 2024 10:27am Chronic kidney disease April 24 11:43am Diabetes April 24, 2024 11:43am Hypertension April 24, 2024 11:43am Hypothyroidism April 24, 2024 11:43am Microalbuminuria April 24, 2024 11:43am Obesity April 24, 2024 11:43am Hypoxemia April 30, 2024 10:48am Obesity April 30, 2024 10:48am SONIA (obstructive sleep apnea) April 132024 10:48am Right middle lobe pulmonary nodule Febru hailey 2024 10:48am Shortness of breath April 30, 2024 10:48am Cardiomyopathy May 07, 2024 9:54am Coronary artery disease May 07, 2 025 9:54am Diabetes May 07, 2024 9:54am Dyslipidemia May 07, 2024 9:54am Left ventricular systolic dysfunction (L VSD) May 07, 2024 9:54am Morbid obesity with BMI of 70 and over, adult May 07, 2024 9:54am SONIA (obstructive sleep apnea) April 142024 9:54am ARSEN (acute kidney injury) June 14 4:08pm Hypercalcemia June 14, 2024 4:08 pm Hyperglycemia due to diabetes mellitus A pril 2024 4:08pm ARGUETA (nonalcoholic steatohepatitis) Apri l 2024 4:08pm Chief Complaint Admit Date G47.33 - Obstructive sleep apnea (adult) (pediatri February 20, 2024 11:09am G47.33 - Obstructive sleep apnea (adult) (pediatri February 26, 2024 12:21pm 6 wk FU March 19, 2024 9: 38am SOB March 28, 2024 1 2:36pm EORDERS April 02, 2024 1 :11pm 3 M FU April 23, 2024 10:27am 3 M FU April 24, 2024 11:43am 6-8 WK FU April 30, 2024 10:48am ABN ECHO (RUFENER) May 07, 2024 9:54am E-ORDER June 13, 2024 1:59 pm ARSEN ON CKD HYPERCALCEMIA June 14, 2024 4:08pm ARSEN ON CKD HYPERCALCEMIA June 15, 2024 7:37am ARSEN ON CKD HYPERCALCEMIA June 16, 2024 8:31am ARSEN ON CKD HYPERCALCEMIA June 17, 2024 8:31am ARSEN ON CKD HYPERCALCEMIA June 17, 2024 10:10am Reason for Visit Admit Date Hypoxemia March 19, 2024 9: 38am Obesity March 19, 2024 9: 38am SONIA (obstructive sleep apnea) March 9:38am Right middle lobe pulmonary nodule Mar ry 2024 9:38am Shortness of breath March 19, 2024 9: 38am Lung nodule seen on imaging study 2024 10:27am ARGUETA (nonalcoholic steatohepatitis) [facility] 2024 10:27am Cirrhosis April 23, 2024 10:27am Elevated alkaline phosphatase level [facility] 2024 10:27am Primary biliary cholangitis April 10:27am Thrombocytopenia April 23, 2024 10:27am Chronic kidney disease April 24 11:43am Diabetes April 24, 2024 11:43am Hypertension April 24, 2024 11:43am Hypothyroidism April 24, 2024 11:43am Microalbuminuria April 24, 2024 11:43am Obesity April 24, 2024 11:43am Hypoxemia April 30, 2024 10:48am Obesity April 30, 2024 10:48am SONIA (obstructive sleep apnea) April 132024 10:48am Right middle lobe pulmonary nodule Febru [email or web address] 10:48am Shortness of breath April 30, 2024 10:48am Cardiomyopathy May 07, 2024 9:54am Coronary artery disease May 07, 2 9:54am Diabetes May 07, 2024 9:54am Dyslipidemia May 07, 2024 9:54am Left ventricular systolic dysfunction (L VSD) May 07, 2024 9:54am Morbid obesity with BMI of 70 and over, adult May 07, 2024 9:54am SONIA (obstructive sleep apnea) April 142024 9:54am ARSEN (acute kidney injury) June 14 4:08pm Granulomatous lung disease June 14 4:08pm Hypercalcemia June 14, 2024 4:08 pm Hyperglycemia due to diabetes mellitus A pril 2024 4:08pm ARGUETA (nonalcoholic steatohepatitis) Apri l 2024 4:08pm Chief Complaint Admit Date 6 wk FU March 19, 2024 9: 38am SOB March 28, 2024 1 2:36pm EORDERS April 02, 2024 1 :11pm 3 M FU April 23, 2024 10:27am 3 M FU April 24, 2024 11:43am 6-8 WK FU April 30, 2024 10:48am ABN ECHO (RUFENER) May 07, 2024 9:54am E-ORDER June 13, 2024 1:59 pm ARSEN ON CKD HYPERCALCEMIA June 14, 2024 4:08pm ARSEN ON CKD HYPERCALCEMIA June 15, 2024 7:37am ARSEN ON CKD HYPERCALCEMIA June 16, 2024 8:31am ARSEN ON CKD HYPERCALCEMIA June 17, 2024 8:31am ARSEN ON CKD HYPERCALCEMIA June 17, 2024 10:10am ARSEN ON CKD HYPERCALCEMIA June 18, 2024 3:11pm Reason for Visit Admit Date Hypoxemia March 19, 2024 9: 38am Obesity March 19, 2024 9: 38am SONIA (obstructive sleep apnea) March 9:38am Right middle lobe pulmonary nodule 2024 9:38am Shortness of breath March 19, 2024 9: 38am Lung nodule seen on imaging study 2024 10:27am ARGUETA (nonalcoholic steatohepatitis) Febr uary 2024 10:27am Cirrhosis April 23, 2024 10:27am Elevated alkaline phosphatase level Febr uary 2024 10:27am Primary biliary cholangitis April 10:27am Thrombocytopenia April 23, 2024 10:27am Chronic kidney disease April 24 11:43am Diabetes April 24, 2024 11:43am Hypertension April 24, 2024 11:43am Hypothyroidism April 24, 2024 11:43am Microalbuminuria April 24, 2024 11:43am Obesity April 24, 2024 11:43am Hypoxemia April 30, 2024 10:48am Obesity April 30, 2024 10:48am SONIA (obstructive sleep apnea) April 132024 10:48am Right middle lobe pulmonary nodule Febru hailey 2024 10:48am Shortness of breath April 30, 2024 10:48am Cardiomyopathy May 07, 2024 9:54am Coronary artery disease May 07 9:54am Diabetes May 07, 2024 9:54am Dyslipidemia May 07, 2024 9:54am Left ventricular systolic dysfunction (L VSD) May 07, 2024 9:54am Morbid obesity with BMI of 70 and over, adult May 07, 2024 9:54am SONIA (obstructive sleep apnea) April 142024 9:54am Granulomatous lung disease June 14 4:08pm Hyperglycemia due to diabetes mellitus A pril 2024 4:08pm ARGUETA (nonalcoholic steatohepatitis) Apri l 2024 4:08pm Hypercalcemia June 14, 2024 4:08 pm ARSEN (acute kidney injury) June 14 4:08pm Chief Complaint Admit Date SOB March 28, 2024 1 2:36pm EORDERS April 02, 2024 1 :11pm 3 M FU April 23, 2024 10:27am 3 M FU April 24, 2024 11:43am 6-8 WK FU April 30, 2024 10:48am ABN ECHO (RUFENER) May 07, 2024 9:54am E-ORDER June 13, 2024 1:59 pm ARSEN ON CKD HYPERCALCEMIA June 14, 2024 4:08pm ARSEN ON CKD HYPERCALCEMIA June 15, 2024 7:37am ARSEN ON CKD HYPERCALCEMIA June 16, 2024 8:31am ARSEN ON CKD HYPERCALCEMIA June 17, 2024 8:31am ARSEN ON CKD HYPERCALCEMIA June 17, 2024 10:10am ARSEN ON CKD HYPERCALCEMIA June 18, 2024 3:11pm RT MIDDLE LOBE PULMONARY NODULE July 082024 12:58pm 3 M FU July 10, 2024 1:0 1pm 6 M FU July 11, 2024 9:43am 3 M FU July 23, 2024 11:12 am Reason for Visit Admit Date Lung nodule seen on imaging study Februa ry 2024 10:27am ARGUETA (nonalcoholic steatohepatitis) Febr uary 2024 10:27am Cirrhosis April 23, 2024 10:27am Elevated alkaline phosphatase level Febr uary 2024 10:27am Primary biliary cholangitis April 10:27am Thrombocytopenia April 23, 2024 10:27am Chronic kidney disease April 24 11:43am Diabetes April 24, 2024 11:43am Hypertension April 24, 2024 11:43am Hypothyroidism April 24, 2024 11:43am Microalbuminuria April 24, 2024 11:43am Obesity April 24, 2024 11:43am Hypoxemia April 30, 2024 10:48am Obesity April 30, 2024 10:48am SONIA (obstructive sleep apnea) April 132024 10:48am Right middle lobe pulmonary nodule Febru hailey 2024 10:48am Shortness of breath April 30, 2024 10:48am Cardiomyopathy May 07, 2024 9:54am Coronary artery disease May 07, 9:54am Diabetes May 07, 2024 9:54am Dyslipidemia May 07, 2024 9:54am Left ventricular systolic dysfunction (L VSD) May 07, 2024 9:54am Morbid obesity with BMI of 70 and over, adult May 07, 2024 9:54am SONIA (obstructive sleep apnea) April 142024 9:54am Granulomatous lung disease June 14 4:08pm Hyperglycemia due to diabetes mellitus A pril 2024 4:08pm ARGUETA (nonalcoholic steatohepatitis) Apri l 2024 4:08pm Hypercalcemia June 14, 2024 4:08 pm ARSEN (acute kidney injury) June 14 4:08pm Cardiomyopathy July 10, 2024 1:0 1pm Coronary artery disease July 10, 2024 1:01pm Diabetes July 10, 2024 1:0 1pm Dyslipidemia July 10, 2024 1:0 1pm Left ventricular systolic dysfunction (L VSD) July 10, 2024 1:01pm Morbid obesity with BMI of 70 and over, adult July 10, 2024 1:01pm SONIA (obstructive sleep apnea) June 1:01pm Chronic kidney disease July 11, 2024 9:4 3am Diabetes July 11, 2024 9:43am Essential (primary) hypertension July 9:43am Hypothyroidism July 11, 2024 9:43am Microalbuminuria July 11, 2024 9:43am Obesity July 11, 2024 9:43am Hypoxemia July 23, 2024 11:12 am Obesity July 23, 2024 11:12 am SONIA (obstructive sleep apnea) July 23, 2024 11:12am Right middle lobe pulmonary nodule July 112024 11:12am Shortness of breath July 23, 2024 11:12 am Reason for Visit Admit Date Lung nodule seen on imaging study Februa ry 2024 10:27am ARGUETA (nonalcoholic steatohepatitis) 2024 10:27am Cirrhosis April 23, 2024 10:27am Elevated alkaline phosphatase level Febr uary 2024 10:27am Primary biliary cholangitis April 10:27am Thrombocytopenia April 23, 2024 10:27am Chronic kidney disease April 24 11:43am Diabetes April 24, 2024 11:43am Hypertension April 24, 2024 11:43am Hypothyroidism April 24, 2024 11:43am Microalbuminuria April 24, 2024 11:43am Obesity April 24, 2024 11:43am Hypoxemia April 30, 2024 10:48am Obesity April 30, 2024 10:48am SONIA (obstructive sleep apnea) April 132024 10:48am Right middle lobe pulmonary nodule Febru [email or web address] 10:48am Shortness of breath April 30, 2024 10:48am Cardiomyopathy May 07, 2024 9:54am Coronary artery disease May 07, 025 9:54am Diabetes May 07, 2024 9:54am Dyslipidemia May 07, 2024 9:54am Left ventricular systolic dysfunction (L VSD) May 07, 2024 9:54am Morbid obesity with BMI of 70 and over, adult May 07, 2024 9:54am SONIA (obstructive sleep apnea) April 142024 9:54am Granulomatous lung disease June 14 4:08pm Hyperglycemia due to diabetes mellitus A pril 2024 4:08pm ARGUETA (nonalcoholic steatohepatitis) Apri l 2024 4:08pm Hypercalcemia June 14, 2024 4:08 pm ARSEN (acute kidney injury) June 14 4:08pm Cardiomyopathy July 10, 2024 1:0 1pm Coronary artery disease July 10, 2024 1:01pm Diabetes July 10, 2024 1:0 1pm Dyslipidemia July 10, 2024 1:0 1pm Left ventricular systolic dysfunction (L VSD) July 10, 2024 1:01pm Morbid obesity with BMI of 70 and over, adult July 10, 2024 1:01pm SONIA (obstructive sleep apnea) June 1:01pm Chronic kidney disease July 11, 2024 9:4 3am Diabetes July 11, 2024 9:43am Essential (primary) hypertension July 9:43am Hypothyroidism July 11, 2024 9:43am Microalbuminuria July 11, 2024 9:43am Obesity July 11, 2024 9:43am Granulomatous lung disease July 23 11:12am Hypoxemia July 23, 2024 11:12 am Lung nodule seen on imaging study July 232024 11:12am Obesity July 23, 2024 11:12 am SONIA (obstructive sleep apnea) July 23, 2024 11:12am Shortness of breath July 23, 2024 11:12 am Chief Complaint Admit Date 3 M FU April 23, 2024 10:27am 3 M FU April 24, 2024 11:43am 6-8 WK FU April 30, 2024 10:48am ABN ECHO (RUFENER) May 07, 2024 9:54am E-ORDER June 13, 2024 1:59 pm ARSEN ON CKD HYPERCALCEMIA June 14, 2024 4:08pm ARSEN ON CKD HYPERCALCEMIA June 15, 2024 7:37am ARSEN ON CKD HYPERCALCEMIA June 16, 2024 8:31am ARSEN ON CKD HYPERCALCEMIA June 17, 2024 8:31am ARSEN ON CKD HYPERCALCEMIA June 17, 2024 10:10am ARSEN ON CKD HYPERCALCEMIA June 18, 2024 3:11pm RT MIDDLE LOBE PULMONARY NODULE July 082024 12:58pm 3 M FU July 10, 2024 1:0 1pm 6 M FU July 11, 2024 9:43am 3 M FU July 23, 2024 11:12 am 2 wk fu August 07, 2024 8:45a m Reason for Visit Admit Date Lung nodule seen on imaging study Februa ry 2024 10:27am ARGUETA (nonalcoholic steatohepatitis) Febr uary 2024 10:27am Cirrhosis April 23, 2024 10:27am Elevated alkaline phosphatase level Febr uary 2024 10:27am Primary biliary cholangitis April 10:27am Thrombocytopenia April 23, 2024 10:27am Chronic kidney disease April 24 11:43am Diabetes April 24, 2024 11:43am Hypertension April 24, 2024 11:43am Hypothyroidism April 24, 2024 11:43am Microalbuminuria April 24, 2024 11:43am Obesity April 24, 2024 11:43am Hypoxemia April 30, 2024 10:48am Obesity April 30, 2024 10:48am SONIA (obstructive sleep apnea) April 132024 10:48am Right middle lobe pulmonary nodule Febru [email or web address] 10:48am Shortness of breath April 30, 2024 10:48am Cardiomyopathy May 07, 2024 9:54am Coronary artery disease May 07, 9:54am Diabetes May 07, 2024 9:54am Dyslipidemia May 07, 2024 9:54am Left ventricular systolic dysfunction (L VSD) May 07, 2024 9:54am Morbid obesity with BMI of 70 and over, adult May 07, 2024 9:54am SONIA (obstructive sleep apnea) April 142024 9:54am Granulomatous lung disease June 14 4:08pm Hyperglycemia due to diabetes mellitus A pril 2024 4:08pm ARGUETA (nonalcoholic steatohepatitis) Apri l 2024 4:08pm Hypercalcemia June 14, 2024 4:08 pm ARSEN (acute kidney injury) June 14 4:08pm Cardiomyopathy July 10, 2024 1:0 1pm Coronary artery disease July 10, 2024 1:01pm Diabetes July 10, 2024 1:0 1pm Dyslipidemia July 10, 2024 1:0 1pm Left ventricular systolic dysfunction (L VSD) July 10, 2024 1:01pm Morbid obesity with BMI of 70 and over, adult July 10, 2024 1:01pm SONIA (obstructive sleep apnea) June 1:01pm Chronic kidney disease July 11, 2024 9:4 3am Diabetes July 11, 2024 9:43am Essential (primary) hypertension July 9:43am Hypothyroidism July 11, 2024 9:43am Microalbuminuria July 11, 2024 9:43am Obesity July 11, 2024 9:43am Granulomatous lung disease July 23 11:12am Hypoxemia July 23, 2024 11:12 am Lung nodule seen on imaging study July 232024 11:12am Obesity July 23, 2024 11:12 am SONIA (obstructive sleep apnea) July 23, 2024 11:12am Shortness of breath July 23, 2024 11:12 am Granulomatous lung disease August 07 8:45am Hypoxemia August 07, 2024 8:45a m Lung nodule seen on imaging study August 072024 8:45am Obesity August 07, 2024 8:45a m SONIA (obstructive sleep apnea) August 07, 2024 8:45am Shortness of breath August 07, 2024 8:45a m Chief Complaint Admit Date 3 M FU April 24, 2024 11:43am 6-8 WK FU April 30, 2024 10:48am ABN ECHO (RUFENER) May 07, 2024 9:54am E-ORDER June 13, 2024 1:59 pm ARSEN ON CKD HYPERCALCEMIA June 14, 2024 4:08pm ARSEN ON CKD HYPERCALCEMIA June 15, 2024 7:37am ARSEN ON CKD HYPERCALCEMIA June 16, 2024 8:31am ARSEN ON CKD HYPERCALCEMIA June 17, 2024 8:31am ARSEN ON CKD HYPERCALCEMIA June 17, 2024 10:10am ARSEN ON CKD HYPERCALCEMIA June 18, 2024 3:11pm RT MIDDLE LOBE PULMONARY NODULE July 082024 12:58pm 3 M FU July 10, 2024 1:0 1pm 6 M FU July 11, 2024 9:43am 3 M FU July 23, 2024 11:12 am 2 wk fu August 07, 2024 8:45a m 4 M FU August 22, 2024 10:2 9am Reason for Visit Admit Date Chronic kidney disease April 24 11:43am Diabetes April 24, 2024 11:43am Hypertension April 24, 2024 11:43am Hypothyroidism April 24, 2024 11:43am Microalbuminuria April 24, 2024 11:43am Obesity April 24, 2024 11:43am Hypoxemia April 30, 2024 10:48am Obesity April 30, 2024 10:48am SONIA (obstructive sleep apnea) April 132024 10:48am Right middle lobe pulmonary nodule [email or web address] 10:48am Shortness of breath April 30, 2024 10:48am Cardiomyopathy May 07, 2024 9:54am Coronary artery disease May 07, 9:54am Diabetes May 07, 2024 9:54am Dyslipidemia May 07, 2024 9:54am Left ventricular systolic dysfunction (L VSD) May 07, 2024 9:54am Morbid obesity with BMI of 70 and over, adult May 07, 2024 9:54am SONIA (obstructive sleep apnea) April 142024 9:54am Granulomatous lung disease June 14 4:08pm Hyperglycemia due to diabetes mellitus A pril 2024 4:08pm ARGUETA (nonalcoholic steatohepatitis) Apri l 2024 4:08pm Hypercalcemia June 14, 2024 4:08 pm ARSEN (acute kidney injury) June 14 4:08pm Cardiomyopathy July 10, 2024 1:0 1pm Coronary artery disease July 10, 2024 1:01pm Diabetes July 10, 2024 1:0 1pm Dyslipidemia July 10, 2024 1:0 1pm Left ventricular systolic dysfunction (L VSD) July 10, 2024 1:01pm Morbid obesity with BMI of 70 and over, adult July 10, 2024 1:01pm SONIA (obstructive sleep apnea) June 1:01pm Chronic kidney disease July 11, 2024 9:4 3am Diabetes July 11, 2024 9:43am Essential (primary) hypertension July 9:43am Hypothyroidism July 11, 2024 9:43am Microalbuminuria July 11, 2024 9:43am Obesity July 11, 2024 9:43am Granulomatous lung disease July 23 11:12am Hypoxemia July 23, 2024 11:12 am Lung nodule seen on imaging study July 232024 11:12am Obesity July 23, 2024 11:12 am SONIA (obstructive sleep apnea) July 23, 2024 11:12am Shortness of breath July 23, 2024 11:12 am Granulomatous lung disease August 07 8:45am Hypoxemia August 07, 2024 8:45a m Lung nodule seen on imaging study August 072024 8:45am Obesity August 07, 2024 8:45a m SONIA (obstructive sleep apnea) August 07, 2024 8:45am Shortness of breath August 07, 2024 8:45a m Chief Complaint Admit Date E-ORDER June 13, 2024 1:59 pm ARSEN ON CKD HYPERCALCEMIA June 14, 2024 4:08pm ARSEN ON CKD HYPERCALCEMIA June 15, 2024 7:37am ARSEN ON CKD HYPERCALCEMIA June 16, 2024 8:31am ARSEN ON CKD HYPERCALCEMIA June 17, 2024 8:31am ARSEN ON CKD HYPERCALCEMIA June 17, 2024 10:10am ARSEN ON CKD HYPERCALCEMIA June 18, 2024 3:11pm RT MIDDLE LOBE PULMONARY NODULE July 082024 12:58pm 3 M FU July 10, 2024 1:0 1pm 6 M FU July 11, 2024 9:43am 3 M FU July 23, 2024 11:12 am 2 wk fu August 07, 2024 8:45a m 4 M FU August 22, 2024 10:2 9am 5 wk September 11, 2024 10:23 am Reason for Visit Admit Date Granulomatous lung disease June 14 4:08pm Hyperglycemia due to diabetes mellitus A pril 2024 4:08pm ARGUETA (nonalcoholic steatohepatitis) Apri l 2024 4:08pm Hypercalcemia June 14, 2024 4:08 pm ARSEN (acute kidney injury) June 14 4:08pm Cardiomyopathy July 10, 2024 1:0 1pm Coronary artery disease July 10, 2024 1:01pm Diabetes July 10, 2024 1:0 1pm Dyslipidemia July 10, 2024 1:0 1pm Left ventricular systolic dysfunction (L VSD) July 10, 2024 1:01pm Morbid obesity with BMI of 70 and over, adult July 10, 2024 1:01pm SONIA (obstructive sleep apnea) June 1:01pm Chronic kidney disease July 11, 2024 9:4 3am Diabetes July 11, 2024 9:43am Essential (primary) hypertension July 9:43am Hypothyroidism July 11, 2024 9:43am Microalbuminuria July 11, 2024 9:43am Obesity July 11, 2024 9:43am Granulomatous lung disease July 23 11:12am Hypoxemia July 23, 2024 11:12 am Lung nodule seen on imaging study July 232024 11:12am Obesity July 23, 2024 11:12 am SONIA (obstructive sleep apnea) July 23, 2024 11:12am Shortness of breath July 23, 2024 11:12 am Granulomatous lung disease August 07 8:45am Hypoxemia August 07, 2024 8:45a m Lung nodule seen on imaging study August 072024 8:45am Obesity August 07, 2024 8:45a m SONIA (obstructive sleep apnea) August 07, 2024 8:45am Shortness of breath August 07, 2024 8:45a m Constipation August 22, 2024 10:2 9am Diabetes August 22, 2024 10:2 9am ARGUETA (nonalcoholic steatohepatitis) August 22, 2024 10:29am Granulomatous lung disease September 11 10:23am Hypoxemia September 11, 2024 10:23 am Lung nodule seen on imaging study September 112024 10:23am Obesity September 11, 2024 10:23 am SONIA (obstructive sleep apnea) September 11, 2024 10:23am Shortness of breath September 11, 2024 10:23 am Chief Complaint Admit Date E-ORDER June 13, 2024 1:59 pm ARSEN ON CKD HYPERCALCEMIA June 14, 2024 4:08pm ARSEN ON CKD HYPERCALCEMIA June 15, 2024 7:37am ARSEN ON CKD HYPERCALCEMIA June 16, 2024 8:31am ARSEN ON CKD HYPERCALCEMIA June 17, 2024 8:31am ARSEN ON CKD HYPERCALCEMIA June 17, 2024 10:10am ARSEN ON CKD HYPERCALCEMIA June 18, 2024 3:11pm RT MIDDLE LOBE PULMONARY NODULE July 082024 12:58pm 3 M FU July 10, 2024 1:0 1pm 6 M FU July 11, 2024 9:43am 3 M FU July 23, 2024 11:12 am 2 wk fu August 07, 2024 8:45a m 4 M FU August 22, 2024 10:2 9am 5 wk fu September 11, 2024 10:23 am 6 M FU October 11, 2024 1:0 1pm Reason for Visit Admit Date Granulomatous lung disease June 14 4:08pm Hyperglycemia due to diabetes mellitus A pril 2024 4:08pm ARGUETA (nonalcoholic steatohepatitis) Apri l 2024 4:08pm Hypercalcemia June 14, 2024 4:08 pm ARSEN (acute kidney injury) June 14 4:08pm Cardiomyopathy July 10, 2024 1:0 1pm Coronary artery disease July 10, 2024 1:01pm Diabetes July 10, 2024 1:0 1pm Dyslipidemia July 10, 2024 1:0 1pm Left ventricular systolic dysfunction (L VSD) July 10, 2024 1:01pm Morbid obesity with BMI of 70 and over, adult July 10, 2024 1:01pm SONIA (obstructive sleep apnea) June 1:01pm Chronic kidney disease July 11, 2024 9:4 3am Diabetes July 11, 2024 9:43am Essential (primary) hypertension July 9:43am Hypothyroidism July 11, 2024 9:43am Microalbuminuria July 11, 2024 9:43am Obesity July 11, 2024 9:43am Granulomatous lung disease July 23 11:12am Hypoxemia July 23, 2024 11:12 am Lung nodule seen on imaging study July 232024 11:12am Obesity July 23, 2024 11:12 am SONIA (obstructive sleep apnea) July 23, 2024 11:12am Shortness of breath July 23, 2024 11:12 am Granulomatous lung disease August 07 8:45am Hypoxemia August 07, 2024 8:45a m Lung nodule seen on imaging study August 072024 8:45am Obesity August 07, 2024 8:45a m SONIA (obstructive sleep apnea) August 07, 2024 8:45am Shortness of breath August 07, 2024 8:45a m Constipation August 22, 2024 10:2 9am Diabetes August 22, 2024 10:2 9am ARGUETA (nonalcoholic steatohepatitis) August 22, 2024 10:29am Granulomatous lung disease September 11 10:23am Hypoxemia September 11, 2024 10:23 am Lung nodule seen on imaging study September [id number] 10:23am Obesity September 11, 2024 10:23 am SONIA (obstructive sleep apnea) September 11, 2024 10:23am Shortness of breath September 11, 2024 10:23 am Chest pain October 11, 2024 1:0 1pm Cardiomyopathy October 11, 2024 1:0 1pm Coronary artery disease October 11, 2024 1:01pm Diabetes October 11, 2024 1:0 1pm Dyslipidemia October 11, 2024 1:0 1pm Left ventricular systolic dysfunction (L VSD) October 11, 2024 1:01pm Morbid obesity with BMI of 70 and over, adult October 11, 2024 1:01pm SONIA (obstructive sleep apnea) October 1:01pm Chief Complaint Admit Date ARSEN ON CKD HYPERCALCEMIA June 14, 2024 4:08pm ARSEN ON CKD HYPERCALCEMIA June 17, 2024 8:31am ARSEN ON CKD HYPERCALCEMIA June 17, 2024 10:10am ARSEN ON CKD HYPERCALCEMIA June 18, 2024 3:11pm RT MIDDLE LOBE PULMONARY NODULE July 082024 12:58pm 3 M FU July 10, 2024 1:0 1pm 6 M FU July 11, 2024 9:43am 3 M FU July 23, 2024 11:12 am 2 wk fu August 07, 2024 8:45a m 4 M FU August 22, 2024 10:2 9am 5 wk fu September 11, 2024 10:23 am 6 M FU October 11, 2024 1:0 1pm 5 wk October 15, 2024 11: 14am Reason for Visit Admit Date Granulomatous lung disease June 14 4:08pm Hyperglycemia due to diabetes mellitus A pril 2024 4:08pm ARGUETA (nonalcoholic steatohepatitis) Apri l 2024 4:08pm Hypercalcemia June 14, 2024 4:08 pm ARSEN (acute kidney injury) June 14 4:08pm Cardiomyopathy July 10, 2024 1:0 1pm Coronary artery disease July 10, 2024 1:01pm Diabetes July 10, 2024 1:0 1pm Dyslipidemia July 10, 2024 1:0 1pm Left ventricular systolic dysfunction (L VSD) July 10, 2024 1:01pm Morbid obesity with BMI of 70 and over, adult July 10, 2024 1:01pm SONIA (obstructive sleep apnea) June 1:01pm Chronic kidney disease July 11, 2024 9:4 3am Diabetes July 11, 2024 9:43am Essential (primary) hypertension July 9:43am Hypothyroidism July 11, 2024 9:43am Microalbuminuria July 11, 2024 9:43am Obesity July 11, 2024 9:43am Granulomatous lung disease July 23 11:12am Hypoxemia July 23, 2024 11:12 am Lung nodule seen on imaging study July [id number] 11:12am Obesity July 23, 2024 11:12 am SONIA (obstructive sleep apnea) July 23, 2024 11:12am Shortness of breath July 23, 2024 11:12 am Granulomatous lung disease August 07 8:45am Hypoxemia August 07, 2024 8:45a m Lung nodule seen on imaging study August [id number] 8:45am Obesity August 07, 2024 8:45a m SONIA (obstructive sleep apnea) August 07, 2024 8:45am Shortness of breath August 07, 2024 8:45a m Constipation August 22, 2024 10:2 9am Diabetes August 22, 2024 10:2 9am ARGUETA (nonalcoholic steatohepatitis) August 22, 2024 10:29am Granulomatous lung disease September 11 10:23am Hypoxemia September 11, 2024 10:23 am Lung nodule seen on imaging study September [id number] 10:23am Obesity September 11, 2024 10:23 am SONIA (obstructive sleep apnea) September 11, 2024 10:23am Shortness of breath September 11, 2024 10:23 am Chest pain October 11, 2024 1:0 1pm Cardiomyopathy October 11, 2024 1:0 1pm Coronary artery disease October 11, 2024 1:01pm Diabetes October 11, 2024 1:0 1pm Dyslipidemia October 11, 2024 1:0 1pm Left ventricular systolic dysfunction (L VSD) October 11, 2024 1:01pm Morbid obesity with BMI of 70 and over, adult October 11, 2024 1:01pm SONIA (obstructive sleep apnea) October 1:01pm Granulomatous lung disease October 15, 2 025 11:14am Hypoxemia October 15, 2024 11: 14am Lung nodule seen on imaging study October 15, 2024 11:14am Obesity October 15, 2024 11: 14am SONIA (obstructive sleep apnea) October 11:14am Shortness of breath October 15, 2024 11: 14am Chief Complaint Admit Date 3 M FU July 10, 2024 1:0 1pm 6 M FU July 11, 2024 9:43am 3 M FU July 23, 2024 11:12 am 2 wk fu August 07, 2024 8:45a m 4 M FU August 22, 2024 10:2 9am 5 wk fu September 11, 2024 10:23 am 6 M FU October 11, 2024 1:0 1pm 5 wk fu October 15, 2024 11: 14am Reason for Visit Admit Date Cardiomyopathy July 10, 2024 1:0 1pm Coronary artery disease July 10, 2024 1:01pm Diabetes July 10, 2024 1:0 1pm Dyslipidemia July 10, 2024 1:0 1pm Left ventricular systolic dysfunction (L VSD) July 10, 2024 1:01pm Morbid obesity with BMI of 70 and over, adult July 10, 2024 1:01pm SONIA (obstructive sleep apnea) June 1:01pm Chronic kidney disease July 11, 2024 9:4 3am Diabetes July 11, 2024 9:43am Essential (primary) hypertension July 9:43am Hypothyroidism July 11, 2024 9:43am Microalbuminuria July 11, 2024 9:43am Obesity July 11, 2024 9:43am Granulomatous lung disease July 23 11:12am Hypoxemia July 23, 2024 11:12 am Lung nodule seen on imaging study July [id number] 11:12am Obesity July 23, 2024 11:12 am SONIA (obstructive sleep apnea) July 23, 2024 11:12am Shortness of breath July 23, 2024 11:12 am Granulomatous lung disease August 07 8:45am Hypoxemia August 07, 2024 8:45a m Lung nodule seen on imaging study August [id number] 8:45am Obesity August 07, 2024 8:45a m SONIA (obstructive sleep apnea) August 07, 2024 8:45am Shortness of breath August 07, 2024 8:45a m Constipation August 22, 2024 10:2 9am Diabetes August 22, 2024 10:2 9am ARGUETA (nonalcoholic steatohepatitis) August 22, 2024 10:29am Granulomatous lung disease September 11 10:23am Hypoxemia September 11, 2024 10:23 am Lung nodule seen on imaging study September [id number] 10:23am Obesity September 11, 2024 10:23 am SONIA (obstructive sleep apnea) September 11, 2024 10:23am Shortness of breath September 11, 2024 10:23 am Chest pain October 11, 2024 1:0 1pm Cardiomyopathy October 11, 2024 1:0 1pm Coronary artery disease October 11, 2024 1:01pm Diabetes October 11, 2024 1:0 1pm Dyslipidemia October 11, 2024 1:0 1pm Left ventricular systolic dysfunction (L VSD) October 11, 2024 1:01pm Morbid obesity with BMI of 70 and over, adult October 11, 2024 1:01pm SONIA (obstructive sleep apnea) October 1:01pm Asthma October 15, 2024 11: 14am Granulomatous lung disease October 15, 2 025 11:14am Hypoxemia October 15, 2024 11: 14am Lung nodule seen on imaging study October 15, 2024 11:14am Obesity October 15, 2024 11: 14am SONIA (obstructive sleep apnea) October 11:14am Shortness of breath October 15, 2024 11: 14am Reason for Referral Specialty Diagnoses / Procedures Referred By Contac t Referred To Contact Diagnoses Abnormal liver function tests Granuloma present on biopsy of liver Procedures XR CHEST PA AND LATERAL Maurisio King MD [address] [place] [address] Referral ID Status Reason Start Date Expiration Date V isits Requested Visits Authorized [id number] New Request 11/03/2022 11/28/2023 1 1 Additional Source Comments (unrecognized sect ion and content) No Status Records FoundNo Status Records FoundNo Status Records FoundNo Status Records FoundNo Status Records FoundNo Status Records FoundNo Status Records Found INFORMATION SOURCE (unrecogn ized section and content) DATE CREATED AUTHOR 03/15/2018 [facility] DATE CREATED AUTHOR AUTHOR'S ORGANIZ ATION 03/16/2018 [facility] ([place]) DATE CREATED AUTHOR AUTHOR'S ORGANIZ ATION 06/19/2018 [employer] DATE CREATED AUTHOR AUTHOR'S ORGANIZ ATION 08/19/2021 [facility] DATE CREATED AUTHOR AUTHOR'S ORGANIZ ATION 11/05/2022 [facility] DATE CREATED AUTHOR AUTHOR'S ORGANIZ ATION 09/27/2024 [facility] DATE CREATED AUTHOR AUTHOR'S ORGANIZ ATION 11/08/2024 [facility] Goals (unrecognized section and content) Goals may be documented in a n alternate sectionGoals may be documented in an alternate sectionGoals may be documented in an alternate sectionGoals may be documented in an alternate sectionGoals may be documented in an alternate sectionGoals may be documented in an alternate sectionGoals may be documented in an alternate sectionGoals may be documented in an alternate sectionGoals may be documented in an alternate sectionGoals may be documented in an alternate sectionGoals may be documented in an alternate sectionGoals may be documented in an alternate sectionGoals may be documented in an alternate sectionGoals may be documented in an alternate sectionGoals may be documented in an alternate sectionGoals may be documented in an alternate sectionGoals may be documented in an alternate sectionGoals may be documented in an alternate sectionGoals may be documented in an alternate sectionGoals may be documented in an alternate section Source Comments (unrecognize d section and content) In the event this informatio n is protected by the Federal Confidentiality of Alcohol and Drug Abuse Patient Records regulations: The Federal rules restrict any use of the information to criminally investigate or prosecute any alcohol or drug abuse patient.[facility] the event this information is protected by the Federal Confidentiality of Alcohol and Drug Abuse Patient Records regulations: The Federal rules restrict any use of the information to criminally investigate or prosecute any alcohol or drug abuse patient.[facility] the event this information is protected by the Federal Confidentiality of Alcohol and Drug Abuse Patient Records regulations: The Federal rules restrict any use of the information to criminally investigate or prosecute any alcohol or drug abuse patient.[facility] the event this information is protected by the Federal Confidentiality of Alcohol and Drug Abuse Patient Records regulations: The Federal rules restrict any use of the information to criminally investigate or prosecute any alcohol or drug abuse patient.[facility] Reason for Visit (unrecogniz ed section and content) Reason Comments Results Reason Comments Patient Question Specialty Diagnoses / Procedures Referred By Contac t Referred To Contact Diagnoses Abnormal liver function tests Granuloma present on biopsy of liver Procedures XR CHEST PA AND LATERAL Maurisio King MD [address] [place] [address] Referral ID Status Reason Start Date Expiration Date V isits Requested Visits Authorized [id number] New Request 11/03/2022 11/28/2023 1 1 Care Teams (unrecognized sec tion and content) [employer] Relationship Specialty Start Date End Date Camille Pierre (Historical) PCP - General 01/04/16 Team Status: Active Member Role Status Dates [facility] Family Provider Active [facility] Primary Care Provider A ctive Team Status: Inactive Member Role Status Dates [facility] Primary Care Provider, Referring Provider Active GUSTAVO Ronquillo Attending Provider Active Team Status: Inactive Member Role Status Dates [facility] Primary Care Provider, Referring Provider Active Dr. Missy Guzman DO Attending Provider Active Team Status: Active Member Role Status Dates [facility] Primary Care Provider A ctive GUSTAVO Ronquillo Attending Provider Active Team Status: Inactive Member Role Status Dates [facility] Primary Care Provider A ctive GUSTAVO Ronquillo Attending Provider, Referring Pr ovider Active Team Status: Inactive Member Role Status Dates [facility] Primary C are Provider, Attending Provider, Referring Provider Active Jordana Baez [employer], [employer]-C Other Provider Active Dr. Missy Guzman DO Other Provider Active Team Status: Inactive Member Role Status Dates [facility] Primary Care Provider A ctive Dr. Missy Guzman DO Attending Provider, Referring Provider Active Team Status: Inactive Member Role Status Dates [facility] Primary Care Provider A ctive Dr. Artemio Faustin MD Attending Provider, Referring Provi tala Active Team Status: Active Member Role Status Dates [facility] Primary Care Provider A ctive Dr. Missy Guzman DO Attending Provider Active Team Status: Active Member Role Status Dates [facility] Primary Care Provider A ctive JULIA GOODWIN Attending Provider Active Team Status: Inactive Member Role Status Dates [facility] Primary Care Provider A ctive Dr. Missy Guzman DO Attending Provider Active Team Status: Inactive Member Role Status Dates [facility] Primary Care Provider A ctive JULIA GOODWIN Attending Provider Active Team Status: Active Member Role Status Dates [facility] Primary Care Provider, Referring Provider Active Dr. Missy Guzman DO Attending Provider, Other Prov ider Active Team Status: Inactive Member Role Status Dates [facility] Primary Care Provider A ctive Dr. Jax Pena MD Emergency Provider Active Team Status: Inactive Member Role Status Dates [facility] Primary Care Provider, Referring Provider Active Ayana Mann [employer], [employer]-C Attending Provider Active Team Status: Inactive Member Role Status Dates [facility] Primary Care Provider A ctive Dr. Jax Pena MD Attending Provider, Emergency Provider Active Team Status: Inactive Member Role Status [facility] Primary Care Provider A ctive Ayana Mann [employer], [employer]-C Attending Provider, Referrin g Provider Active Team Status: Inactive Member Role Status Dates JULIA GOODWIN Attending Provider Active [facility] Primary Care Provider A ctive Team Status: Inactive Member Role Status [facility] Primary Care Provider A ctive Rad Morel MD Emergency Provider Active Team Status: Inactive Member Role Status [facility] Primary Care Provider A ctive Emy Lee NP-C Attending Provider Active Team Status: Inactive Member Role Status [facility] Primary Care Provider A ctive Jordana Baez [employer], [employer]-C Other Provider Active Nikki Borges NP-C Attending Provider, Referring Provider Active Team Status: Inactive Member Role Status Dates [facility] Primary Care Provider A ctive Dr. Cosme Espinoza DO Emergency Provider Active Team Status: Active Member Role Status Dates Jordana Baez VSC, [employer]-C Primary Care Provider Activ e Team Status: Inactive Member Role Status Dates Jordana Baez VSC, [employer]-C Primary Care Provider Activ e Start: February 20, 2024 End: February 20, 2024 GUSTAVO Damon Attending Provider Active Start: February 20, 2024 End: February 20, 2024 Swapna Blakely NP-Damion Referring Provider Active Start: February 20, 2024 End: February 20, 2024 Team Status: Active Member Role Status Dates Jordana VAZQUEZC, [employer]-C Primary Care Provider Activ e Start: February 26, 2024 Swapna Blakely [employer]-C Referring Provider Active Start: February 26, 2024 Swapna Blakely NP-C Other Provider Active St art: February 26, 2024 Dr. Lake Strauss DO Attending Provider Active S tart: February 26, 2024 Team Status: Inactive Member Role Status Dates Jordana VAZQUEZC, [employer]-C Primary Care Provider Activ e Start: March 19, 2024 End: March 19, 2024 Jordana VAZQUEZC, [employer]-C Referring Provider Active Start: March 19, 2024 End: March 19, 2024 Swapna Blakely NP-C Attending Provider Active Start: March 19, 2024 End: March 19, 2024 Team Status: Inactive Member Role Status Dates Jordana VAZQUEZC, [employer]-C Primary Care Provider Activ e Start: March 28, 2024 End: March 28, 2024 Swapna Blakely NP-C Attending Provider Active Start: March 28, 2024 End: March 28, 2024 Swapna Blakely [employer]-C Referring Provider Active Start: March 28, 2024 End: March 28, 2024 Team Status: Active Member Role Status Dates Jordana VAZQUEZC, [employer]-C Primary Care Provider Activ e Start: March 28, 2024 Dr. Kirstie Maxwell MD Attending Provider Active Start: March 28, 2024 Team Status: Inactive Member Role Status Dates Jordana VAZQUEZC, [employer]-C Primary Care Provider Activ e Start: April 02, 2024 End: April 02, 2024 Emy Lee NP-C Attending Provider Active Start: April 02, 2024 End: April 02, 2024 Emy Lee [employer]-C Referring Provider Active Start: April 02, 2024 End: April 02, 2024 Team Status: Inactive Member Role Status Dates Jordana VAZQUEZC, [employer]-C Primary Care Provider Activ e Start: April 23, 2024 End: April 23, 2024 Jordana Nestor VSC, [employer]-C Referring Provider Active Start: April 23, 2024 End: April 23, 2024 Dr. Missy Guzman DO Attending Provider Active Start: April 23, 2024 End: April 23, 2024 Team Status: Inactive Member Role Status Dates Jordana Nestor MENDIETA, [employer]-C Primary Care Provider Activ e Start: April 23, 2024 End: April 23, 2024 Dr. Missy Guzman DO Attending Provider Active Start: April 23, 2024 End: April 23, 2024 Dr. Missy Guzman DO Referring Provider Active Start: April 23, 2024 End: April 23, 2024 Team Status: Inactive Member Role Status Dates Jordana Nestor VSC, [employer]-C Primary Care Provider Activ e Start: April 24, 2024 End: April 24, 2024 Jordana Nestor VSC, [employer]-C Referring Provider Active Start: April 24, 2024 End: April 24, 2024 Emy Lee [employer]-C Attending Provider Active Start: April 24, 2024 End: April 24, 2024 Team Status: Inactive Member Role Status Dates Jordana Baez VSC, [employer]-C Primary Care Provider Activ e Start: April 30, 2024 End: April 30, 2024 Jordana Nestor VSC, [employer]-C Referring Provider Active Start: April 30, 2024 End: April 30, 2024 Swapna Blakely NP-C Attending Provider Active Start: April 30, 2024 End: April 30, 2024 Team Status: Inactive Member Role Status Dates Jordana Baez VSC, [employer]-C Primary Care Provider Activ e Start: May 07, 2024 End: May 07, 2024 Dr. Kirstie Maxwell MD Attending Provider Active Start: May 07, 2024 End: May 07, 2024 Swapna Blakely [employer]-C Referring Provider Active Start: May 07, 2024 End: May 07, 2024 Team Status: Active Member Role Status Dates Jordana Nestor VSC, [employer]-C Primary Care Provider Activ e Start: June 13, 2024 Dr. Kirstie Maxwell MD Attending Provider Active Start: June 13, 2024 Dr. Kirstie Maxwell MD Referring Provider Active Start: June 13, 2024 Team Status: Active Member Role Status Dates Jordana Nestor VSC, [employer]-C Primary Care Provider Activ e Start: June 14, 2024 Dr. Mac Ortega DO Emergency Provider Active Start : June 14, 2024 Dr. Grecia Marroquin MD Admit Provider Active St art: June 14, 2024 Dr. Grecia Marroquin MD Attending Provider Active Start: June 14, 2024 Team Status: Inactive Member Role Status Dates Jordana MENDIEAT, [employer]-C Primary Care Provider Activ e Start: June 13, 2024 End: June 13, 2024 Dr. Kirstie Maxwell MD Attending Provider Active Start: June 13, 2024 End: June 13, 2024 Dr. Kirstie Maxwell MD Referring Provider Active Start: June 13, 2024 End: June 13, 2024 Team Status: Active Member Role Status Dates Jordana MENDIETA, [employer]-C Primary Care Provider Activ e Start: June 14, 2024 Dr. Mac Ortega DO Emergency Provider Active Start : June 14, 2024 Dr. Grecia Marroquin MD Admit Provider Active St art: June 14, 2024 Dr. Grecia Marroquin MD Other Provider Active St art: June 14, 2024 Dr. Madeleine Benoit MD Other Provider Active Start: June 14, 2024 Dr. Pastora Terry MD Attending Provider Active Start: June 14, 2024 Dr. Hipolito Jackson MD Other Provider Active Star t: June 14, 2024 Dr. Lake Strauss DO Other Provider Active Start : June 14, 2024 Team Status: Active Member Role Status Dates Jordana MENDIETA, [employer]-C Primary Care Provider Activ e Start: June 15, 2024 Dr. Mac Ortega DO Emergency Provider Active Start : June 15, 2024 Dr. Grecia Marroquin MD Admit Provider Active St art: June 15, 2024 Dr. Grecia Marroquin MD Other Provider Active St art: June 15, 2024 Dr. Madeleine Benoit MD Other Provider Active Start: June 15, 2024 Dr. Hipolito Jackson MD Attending Provider Active Start: June 15, 2024 Dr. Hipolito Jackson MD Other Provider Active Star t: June 15, 2024 Team Status: Active Member Role Status Dates Jordana MENDIETA, [employer]-C Primary Care Provider Activ e Start: June 16, 2024 Dr. Mac Ortega DO Emergency Provider Active Start : June 16, 2024 Dr. Grecia Marroquin MD Admit Provider Active St art: June 16, 2024 Dr. Grecia Marroquin MD Other Provider Active St art: June 16, 2024 Dr. Madeleine Benoit MD Other Provider Active Start: June 16, 2024 Dr. Hipolito Jackson MD Attending Provider Active Start: June 16, 2024 Dr. Hipolito Jackson MD Other Provider Active Star t: June 16, 2024 Team Status: Active Member Role Status Dates Jordana MENDIETA, [employer]-C Primary Care Provider Activ e Start: June 17, 2024 Dr. Mac Ortega DO Emergency Provider Active Start : June 17, 2024 Dr. Grecia Marroquin MD Admit Provider Active St art: June 17, 2024 Dr. Grecia Marroquin MD Other Provider Active St art: June 17, 2024 Dr. Madeleine Benoit MD Other Provider Active Start: June 17, 2024 Dr. Pastora Terry MD Attending Provider Active Start: June 17, 2024 Dr. Pastora Terry MD Other Provider Active Star t: June 17, 2024 Dr. Hipolito Jackson MD Other Provider Active Star t: June 17, 2024 Dr. Lake Strauss DO Other Provider Active Start : June 17, 2024 Team Status: Active Member Role Status Dates Jordana MENDIETA, [employer]-C Primary Care Provider Activ e Start: June 17, 2024 Dr. Mac Ortega DO Emergency Provider Active Start : June 17, 2024 Dr. Grecia Marroquin MD Admit Provider Active St art: June 17, 2024 Dr. Grecia Marroquin MD Other Provider Active St art: June 17, 2024 Dr. Madeleine Benoit MD Other Provider Active Start: June 17, 2024 Dr. Pastora Terry MD Other Provider Active Star t: June 17, 2024 Dr. Hipolito Jackson MD Other Provider Active Star t: June 17, 2024 Dr. Lake Strauss DO Attending Provider Active S tart: June 17, 2024 Dr. Lake Strauss DO Other Provider Active Start : June 17, 2024 Team Status: Inactive Member Role Status Dates Jordana MENDIETA, [employer]-C Primary Care Provider Activ e Start: June 14, 2024 End: June 18, 2024 Dr. Mac Ortega DO Emergency Provider Active Start : June 14, 2024 End: June 18, 2024 Dr. Grecia Marroquin MD Admit Provider Active St art: June 14, 2024 End: June 18, 2024 Dr. Grecia Marroquin MD Other Provider Active St art: June 14, 2024 End: June 18, 2024 Dr. Madeleine Benoit MD Other Provider Active Start: June 14, 2024 End: June 18, 2024 Dr. Pastora Terry MD Attending Provider Active Start: June 14, 2024 End: June 18, 2024 Dr. Hipolito Jackson MD Other Provider Active Star t: June 14, 2024 End: June 18, 2024 Dr. Lake Strauss DO Other Provider Active Start : June 14, 2024 End: June 18, 2024 Team Status: Active Member Role Status Dates Jordana MENDIETA, [employer]-C Primary Care Provider Activ e Start: June 17, 2024 Dr. Mac Ortega DO Emergency Provider Active Start : June 17, 2024 Dr. Grecia Marroquin MD Admit Provider Active St art: June 17, 2024 Dr. Grecia Marroquin MD Other Provider Active St art: June 17, 2024 Dr. Madeleine Benoit MD Other Provider Active Start: June 17, 2024 Dr. Pastora Terry MD Referring Provider Active Start: June 17, 2024 Dr. Pastora Terry MD Other Provider Active Star t: June 17, 2024 Dr. Hipolito Jackson MD Other Provider Active Star t: June 17, 2024 Dr. Lake Strauss DO Attending Provider Active S tart: June 17, 2024 Dr. Lake Strauss DO Other Provider Active Start : June 17, 2024 Team Status: Active Member Role Status Dates Jordana MENDIETA, [employer] Primary Care Provider Activ e Start: June 18, 2024 Dr. Mac Ortega DO Emergency Provider Active Start : June 18, 2024 Dr. Grecia Marroquin MD Admit Provider Active St art: June 18, 2024 Dr. Grecia Marroquin MD Other Provider Active St art: June 18, 2024 Dr. Madeleine Benoit MD Other Provider Active Start: June 18, 2024 Dr. Pastora Terry MD Attending Provider Active Start: June 18, 2024 Dr. Pastora Terry MD Other Provider Active Star t: June 18, 2024 Dr. Hipolito Jackson MD Other Provider Active Star t: June 18, 2024 Dr. Lake Strauss DO Other Provider Active Start : June 18, 2024 Team Status: Inactive Member Role Status Dates Jordana Baez VSC, [employer] Primary Care Provider Activ e Start: June 24, 2024 End: June 24, 2024 Marce Donahue [employer] Attending Provider Active Start: June 24, 2024 End: June 24, 2024 Team Status: Inactive Member Role Status Dates Jordana Baez VSC, [employer] Primary Care Provider Activ e Start: July 08, 2024 End: July 08, 2024 Swapna Blakely [employer] Attending Provider Active Start: July 08, 2024 End: July 08, 2024 Swapna Blakely [employer] Referring Provider Active Start: July 08, 2024 End: July 08, 2024 Team Status: Inactive Member Role Status Dates Jordana Nestor VSC, [employer] Primary Care Provider Activ e Start: July 10, 2024 End: July 10, 2024 Jordana Nestor VSC, [employer] Referring Provider Active Start: July 10, 2024 End: July 10, 2024 Dr. Kirstie Maxwell MD Attending Provider Active Start: July 10, 2024 End: July 10, 2024 Team Status: Inactive Member Role Status Dates Jordana Baez VSC, [employer] Primary Care Provider Activ e Start: July 11, 2024 End: July 11, 2024 Jordana Nestor VSC, [employer] Referring Provider Active Start: July 11, 2024 End: July 11, 2024 Emy Lee [employer] Attending Provider Active Start: July 11, 2024 End: July 11, 2024 Team Status: Active Member Role Status Dates Jordana Nestor VSC, [employer] Primary Care Provider Activ e Start: July 16, 2024 Dr. Madeleine Benoit MD Attending Provider Active Start: July 16, 2024 Dr. Madeleine Benoit MD Referring Provider Active Start: July 16, 2024 Team Status: Inactive Member Role Status Dates Jordana Nestor VSC, [employer] Primary Care Provider Activ e Start: July 23, 2024 End: July 23, 2024 Jordana VAZQUEZC, [employer] Referring Provider Active Start: July 23, 2024 End: July 23, 2024 Swapna Blakely NP-C Attending Provider Active Start: July 23, 2024 End: July 23, 2024 Team Status: Inactive Member Role Status Dates Jordana VAZQUEZC, [employer] Primary Care Provider Activ e Start: July 16, 2024 End: July 16, 2024 Dr. Madeleine Benoit MD Attending Provider Active Start: July 16, 2024 End: July 16, 2024 Dr. Madeleine Benoit MD Referring Provider Active Start: July 16, 2024 End: July 16, 2024 Team Status: Inactive Member Role Status Dates Jordana VAZQUEZC, [employer] Primary Care Provider Activ e Start: August 07, 2024 End: August 07, 2024 Jordanacassie VAZQUEZC, [employer] Referring Provider Active Start: August 07, 2024 End: August 07, 2024 Swapna Blakely NP-C Attending Provider Active Start: August 07, 2024 End: August 07, 2024 Team Status: Inactive Member Role Status Dates Jordana Baez VSC, [employer] Primary Care Provider Activ e Start: August 22, 2024 End: August 22, 2024 Jordanacassie Baez VSC, [employer] Referring Provider Active Start: August 22, 2024 End: August 22, 2024 Crystal Ruiz [employer] Attending Provider Active S tart: August 22, 2024 End: August 22, 2024 Team Status: Active Member Role/Relationship Status Dates Jordana Baez VSC, [employer] Primary Care Provider Activ e Team Status: Inactive Member Role/Relationship Status Dates Jordana Baez VSC, [employer] Primary Care Provider Activ e Start: June 13, 2024 End: June 13, 2024 Dr. Kirstie Maxwell MD Attending Provider Active Start: June 13, 2024 End: June 13, 2024 Dr. Kirstie Maxwell MD Referring Provider Active Start: June 13, 2024 End: June 13, 2024 Team Status: Inactive Member Role/Relationship Status Dates Jordana Nestor VSC, [employer] Primary Care Provider Activ e Start: June 14, 2024 End: June 18, 2024 Dr. Mac Ortega DO Emergency Provider Active Start : June 14, 2024 End: June 18, 2024 Dr. Grecia Marroquin MD Admit Provider Active St art: June 14, 2024 End: June 18, 2024 Dr. Grecia Marroquin MD Other Provider Active St art: June 14, 2024 End: June 18, 2024 Dr. Madeleine Benoit MD Other Provider Active Start: June 14, 2024 End: June 18, 2024 Dr. Pastora Terry MD Attending Provider Active Start: June 14, 2024 End: June 18, 2024 Dr. Hipolito Jackson MD Other Provider Active Star t: June 14, 2024 End: June 18, 2024 Dr. Lake Strauss DO Other Provider Active Start : June 14, 2024 End: June 18, 2024 Team Status: Active Member Role/Relationship Status Dates Jordana MENDIETA, [employer] Primary Care Provider Activ e Start: June 15, 2024 Dr. Mac Ortega DO Emergency Provider Active Start : June 15, 2024 Dr. Grecia Marroquin MD Admit Provider Active St art: June 15, 2024 Dr. Grecia Marroquin MD Other Provider Active St art: June 15, 2024 Dr. Madeleine Benoit MD Other Provider Active Start: June 15, 2024 Dr. Hipolito Jackson MD Attending Provider Active Start: June 15, 2024 Dr. Hipolito Jackson MD Other Provider Active Star t: June 15, 2024 Team Status: Active Member Role/Relationship Status Dates Jordana MENDIETA, [employer] Primary Care Provider Activ e Start: June 16, 2024 Dr. Mac Ortega DO Emergency Provider Active Start : June 16, 2024 Dr. Grecia Marroquin MD Admit Provider Active St art: June 16, 2024 Dr. Grecia Marroquin MD Other Provider Active St art: June 16, 2024 Dr. Madeleine Benoit MD Other Provider Active Start: June 16, 2024 Dr. Hipolito Jackson MD Attending Provider Active Start: June 16, 2024 Dr. Hipolito Jackson MD Other Provider Active Star t: June 16, 2024 Team Status: Active Member Role/Relationship Status Dates Jordana VAZQUEZ, [employer] Primary Care Provider Activ e Start: June 17, 2024 Dr. Mac Ortega DO Emergency Provider Active Start : June 17, 2024 Dr. Grecia Marroquin MD Admit Provider Active St art: June 17, 2024 Dr. Grecia Marroquin MD Other Provider Active St art: June 17, 2024 Dr. Madeleine Benoit MD Other Provider Active Start: June 17, 2024 Dr. Pastora Terry MD Attending Provider Active Start: June 17, 2024 Dr. Pastora Terry MD Other Provider Active Star t: June 17, 2024 Dr. Hipolito Jackson MD Other Provider Active Star t: June 17, 2024 Dr. Lake Strauss DO Other Provider Active Start : June 17, 2024 Team Status: Active Member Role/Relationship Status Dates Jordana MENDIETA, [employer] Primary Care Provider Activ e Start: June 17, 2024 Dr. Mac Ortega DO Emergency Provider Active Start : June 17, 2024 Dr. Grecia Marroquin MD Admit Provider Active St art: June 17, 2024 Dr. Grecia Marroquin MD Other Provider Active St art: June 17, 2024 Dr. Madeleine Benoit MD Other Provider Active Start: June 17, 2024 Dr. Pastora Terry MD Referring Provider Active Start: June 17, 2024 Dr. Pastora Terry MD Other Provider Active Star t: June 17, 2024 Dr. Hipolito Jackson MD Other Provider Active Star t: June 17, 2024 Dr. Lake Strauss DO Attending Provider Active S tart: June 17, 2024 Dr. Lake Strauss DO Other Provider Active Start : June 17, 2024 Team Status: Active Member Role/Relationship Status Dates Jordana VAZQUEZ, [employer] Primary Care Provider Activ e Start: June 18, 2024 Dr. Mac Ortega DO Emergency Provider Active Start : June 18, 2024 Dr. Grecia Marroquin MD Admit Provider Active St art: June 18, 2024 Dr. Grecia Marroquin MD Other Provider Active St art: June 18, 2024 Dr. Madeleine Benoit MD Other Provider Active Start: June 18, 2024 Dr. Pastora Terry MD Attending Provider Active Start: June 18, 2024 Dr. Pastora Terry MD Other Provider Active Star t: June 18, 2024 Dr. Hipolito Jackson MD Other Provider Active Star t: June 18, 2024 Dr. Lake Strauss DO Other Provider Active Start : June 18, 2024 Team Status: Inactive Member Role/Relationship Status Dates Jordana Baez VSC, [employer] Primary Care Provider Activ e Start: June 24, 2024 End: June 24, 2024 Marce Donahue [employer] Attending Provider Active Start: June 24, 2024 End: June 24, 2024 Team Status: Inactive Member Role/Relationship Status Dates Jordana Baez VSC, [employer] Primary Care Provider Activ e Start: July 08, 2024 End: July 08, 2024 Swapna Blakely [employer] Attending Provider Active Start: July 08, 2024 End: July 08, 2024 Swapna Blakely [employer] Referring Provider Active Start: July 08, 2024 End: July 08, 2024 Team Status: Inactive Member Role/Relationship Status Dates Jordana Baez VSC, [employer] Primary Care Provider Activ e Start: July 10, 2024 End: July 10, 2024 Jordana Baez VSC, [employer] Referring Provider Active Start: July 10, 2024 End: July 10, 2024 Dr. Kirstie Maxwell MD Attending Provider Active Start: July 10, 2024 End: July 10, 2024 Team Status: Inactive Member Role/Relationship Status Dates Jordana Baez VSC, [employer] Primary Care Provider Activ e Start: July 11, 2024 End: July 11, 2024 Jordana Nestor VSC, [employer] Referring Provider Active Start: July 11, 2024 End: July 11, 2024 Emy Lee [employer] Attending Provider Active Start: July 11, 2024 End: July 11, 2024 Team Status: Inactive Member Role/Relationship Status Dates Jordana Nestor VSC, [employer] Primary Care Provider Activ e Start: July 16, 2024 End: July 16, 2024 Dr. Madeleine Benoit MD Attending Provider Active Start: July 16, 2024 End: July 16, 2024 Dr. Jayaprakas Cy , MD Referring Provider Active Start: July 16, 2024 End: July 16, 2024 Team Status: Inactive Member Role/Relationship Status Dates Jordana VAZQUEZC, [employer] Primary Care Provider Activ e Start: July 23, 2024 End: July 23, 2024 Jordana Nestor TAYLORC, [employer] Referring Provider Active Start: July 23, 2024 End: July 23, 2024 wSapna Blakely [employer] Attending Provider Active Start: July 23, 2024 End: July 23, 2024 Team Status: Inactive Member Role/Relationship Status Dates Jordana VAZQUEZC, [employer] Primary Care Provider Activ e Start: August 07, 2024 End: August 07, 2024 Jordana Nestor VSC, [employer] Referring Provider Active Start: August 07, 2024 End: August 07, 2024 Swapna Blakely NP-C Attending Provider Active Start: August 07, 2024 End: August 07, 2024 Team Status: Inactive Member Role/Relationship Status Dates Jordana Baez VSC, [employer] Primary Care Provider Activ e Start: August 22, 2024 End: August 22, 2024 Jordana Nestor TAYLORC, [employer] Referring Provider Active Start: August 22, 2024 End: August 22, 2024 Crystal Ruiz [employer] Attending Provider Active S tart: August 22, 2024 End: August 22, 2024 Team Status: Inactive Member Role/Relationship Status Dates Jordana Baez VSC, [employer] Primary Care Provider Activ e Start: September 11, 2024 End: September 11, 2024 Jordana Nestor VSC, [employer] Referring Provider Active Start: September 11, 2024 End: September 11, 2024 Swapna Blakely NP-C Attending Provider Active Start: September 11, 2024 End: September 11, 2024 [employer] Boat [employer] Relationship Specialty Start Date End Date Camille Pierre (Historical) PCP - General 01/04/16 Pl[employer] Relationship Specialty Start Date End Date Camille Pierre (Historical) PCP - General 01/04/16 Team Status: Inactive Member Role/Relationship Status Dates Jordana Baez VSC, [employer] Primary Care Provider Activ e Start: October 11, 2024 End: October 11, 2024 Jordana Nestor VSC, [employer] Referring Provider Active Start: October 11, 2024 End: October 11, 2024 Yvette James [employer], [employer] Attending Provider Active Start: October 11, 2024 End: October 11, 2024 Team Status: Inactive Member Role/Relationship Status Dates Jordana VAZQUEZC, [employer] Primary Care Provider Activ e Start: June 14, 2024 End: June 18, 2024 Dr. Mac Ortega DO Emergency Provider Active Start : June 14, 2024 End: June 18, 2024 Dr. Grecia Marroquin MD Admit Provider Active St art: June 14, 2024 End: June 18, 2024 Dr. Grecia Marroquin MD Other Provider Active St art: June 14, 2024 End: June 18, 2024 Dr. Madeleine Benoit MD Other Provider Active Start: June 14, 2024 End: June 18, 2024 Dr. Pastora Terry MD Attending Provider Active Start: June 14, 2024 End: June 18, 2024 Dr. Hipolito Jackson MD Other Provider Active Star t: June 14, 2024 End: June 18, 2024 Dr. Lake Strauss DO Other Provider Active Start : June 14, 2024 End: June 18, 2024 Team Status: Active Member Role/Relationship Status Dates Jordana MENDIETA, [employer] Primary Care Provider Activ e Start: June 17, 2024 Dr. Mac Ortega DO Emergency Provider Active Start : June 17, 2024 Dr. Grecia Marroquin MD Admit Provider Active St art: June 17, 2024 Dr. Grecia Marroquin MD Other Provider Active St art: June 17, 2024 Dr. Madeleine Benoit MD Other Provider Active Start: June 17, 2024 Dr. Pastora Terry MD Attending Provider Active Start: June 17, 2024 Dr. Pastora Terry MD Other Provider Active Star t: June 17, 2024 Dr. Hipolito Jackson MD Other Provider Active Star t: June 17, 2024 Dr. Lake Strauss DO Other Provider Active Start : June 17, 2024 Team Status: Active Member Role/Relationship Status Dates Jordana MENDIETA, [employer] Primary Care Provider Activ e Start: June 17, 2024 Dr. Mac Ortega DO Emergency Provider Active Start : June 17, 2024 Dr. Grecia Marroquin MD Admit Provider Active St art: June 17, 2024 Dr. Grecia Marroquin MD Other Provider Active St art: June 17, 2024 Dr. Madeleine Benoit MD Other Provider Active Start: June 17, 2024 Dr. Pastora Terry MD Referring Provider Active Start: June 17, 2024 Dr. Pastora Terry MD Other Provider Active Star t: June 17, 2024 Dr. Hipolito Jackson MD Other Provider Active Star t: June 17, 2024 Dr. Lake Strauss DO Attending Provider Active S tart: June 17, 2024 Dr. Lake Strauss DO Other Provider Active Start : June 17, 2024 Team Status: Active Member Role/Relationship Status Dates Jordana MENDIETA, [employer] Primary Care Provider Activ e Start: June 18, 2024 Dr. Mac Ortega DO Emergency Provider Active Start : June 18, 2024 Dr. Grecia Marroquin MD Admit Provider Active St art: June 18, 2024 Dr. Grecia Marroquin MD Other Provider Active St art: June 18, 2024 Dr. Madeleine Benoit MD Other Provider Active Start: June 18, 2024 Dr. Pastora Terry MD Attending Provider Active Start: June 18, 2024 Dr. Pastora Terry MD Other Provider Active Star t: June 18, 2024 Dr. Hipolito Jackson MD Other Provider Active Star t: June 18, 2024 Dr. Lake Strauss DO Other Provider Active Start : June 18, 2024 Team Status: Inactive Member Role/Relationship Status Dates Jordana MENDIETA, [employer] Primary Care Provider Activ e Start: June 24, 2024 End: June 24, 2024 GUSTAVO Sams Attending Provider Active Start: June 24, 2024 End: June 24, 2024 Team Status: Inactive Member Role/Relationship Status Dates Jordana MENDIETA, [employer] Primary Care Provider Activ e Start: July 08, 2024 End: July 08, 2024 GUSTAVO Damon Attending Provider Active Start: July 08, 2024 End: July 08, 2024 GUSTAVO Damon Referring Provider Active Start: July 08, 2024 End: July 08, 2024 Team Status: Inactive Member Role/Relationship Status Dates Jordana VAZQUEZC, [employer] Primary Care Provider Activ e Start: July 10, 2024 End: July 10, 2024 Jordana Nestor VSC, [employer] Referring Provider Active Start: July 10, 2024 End: July 10, 2024 Dr. Kirstie Maxwell MD Attending Provider Active Start: July 10, 2024 End: July 10, 2024 Team Status: Inactive Member Role/Relationship Status Dates Jordana Baez VSC, [employer] Primary Care Provider Activ e Start: July 11, 2024 End: July 11, 2024 Jordana Nestor VSC, [employer] Referring Provider Active Start: July 11, 2024 End: July 11, 2024 Emy Lee [employer] Attending Provider Active Start: July 11, 2024 End: July 11, 2024 Team Status: Inactive Member Role/Relationship Status Dates Jordana Nestor VSC, [employer] Primary Care Provider Activ e Start: July 16, 2024 End: July 16, 2024 Dr. Madeleine Benoit MD Attending Provider Active Start: July 16, 2024 End: July 16, 2024 Dr. Madeleine Benoit MD Referring Provider Active Start: July 16, 2024 End: July 16, 2024 Team Status: Inactive Member Role/Relationship Status Dates Jordana Nestor TAYLORC, [employer] Primary Care Provider Activ e Start: July 23, 2024 End: July 23, 2024 Jordana Nestor VSC, [employer] Referring Provider Active Start: July 23, 2024 End: July 23, 2024 Swapna Blakely NP-C Attending Provider Active Start: July 23, 2024 End: July 23, 2024 Team Status: Inactive Member Role/Relationship Status Dates Jordana Baez VSC, [employer] Primary Care Provider Activ e Start: August 07, 2024 End: August 07, 2024 Jordana Nestor VSC, [employer] Referring Provider Active Start: August 07, 2024 End: August 07, 2024 Swapna Blakely NP-C Attending Provider Active Start: August 07, 2024 End: August 07, 2024 Team Status: Inactive Member Role/Relationship Status Dates Jordana Baez VSC, [employer] Primary Care Provider Activ e Start: August 22, 2024 End: August 22, 2024 Jordana Baez VSC, [employer] Referring Provider Active Start: August 22, 2024 End: August 22, 2024 Crystal Ruiz [employer] Attending Provider Active S tart: August 22, 2024 End: August 22, 2024 Team Status: Inactive Member Role/Relationship Status Dates Jordana Nestor VSC, [employer] Primary Care Provider Activ e Start: September 11, 2024 End: September 11, 2024 Jordana Baez VSC, [employer] Referring Provider Active Start: September 11, 2024 End: September 11, 2024 Swapna Blakely [employer] Attending Provider Active Start: September 11, 2024 End: September 11, 2024 Team Status: Inactive Member Role/Relationship Status Dates Jordana Nestor VSC, [employer] Primary Care Provider Activ e Start: October 11, 2024 End: October 11, 2024 Jordana Baez VSC, [employer] Referring Provider Active Start: October 11, 2024 End: October 11, 2024 Yvette James NP, [employer] Attending Provider Active Start: October 11, 2024 End: October 11, 2024 Team Status: Inactive Member Role/Relationship Status Dates Jordana Nestor VSC, [employer] Primary Care Provider Activ e Start: October 15, 2024 End: October 15, 2024 Jordana Baez VSC, [employer] Referring Provider Active Start: October 15, 2024 End: October 15, 2024 Swapna Blakely [employer] Attending Provider Active Start: October 15, 2024 End: October 15, 2024 Team Status: Inactive Member Role/Relationship Status Dates Jordana Nestor VSC, [employer] Primary Care Provider Activ e Start: July 10, 2024 End: July 10, 2024 Jordana Baez VSC, [employer] Referring Provider Active Start: July 10, 2024 End: July 10, 2024 Dr. Kirstie Maxwell MD Attending Provider Active Start: July 10, 2024 End: July 10, 2024 Team Status: Inactive Member Role/Relationship Status Dates Jordanaerrol aBez VSC, [employer] Primary Care Provider Activ e Start: July 11, 2024 End: July 11, 2024 Jordana Baez VSC, [employer] Referring Provider Active Start: July 11, 2024 End: July 11, 2024 Emy Lee , [employer] Attending Provider Active Start: July 11, 2024 End: July 11, 2024 Team Status: Inactive Member Role/Relationship Status Dates Jordana Nestor VSC, [employer] Primary Care Provider Activ e Start: July 16, 2024 End: July 16, 2024 Dr. Madeleine Benoit MD Attending Provider Active Start: July 16, 2024 End: July 16, 2024 Dr. Madeleine Benoit MD Referring Provider Active Start: July 16, 2024 End: July 16, 2024 Team Status: Inactive Member Role/Relationship Status Dates Jordanaerrol Baez VSC, [employer] Primary Care Provider Activ e Start: July 23, 2024 End: July 23, 2024 Jordana VAZQUEZC, [employer] Referring Provider Active Start: July 23, 2024 End: July 23, 2024 Swapna Blakely NP-C Attending Provider Active Start: July 23, 2024 End: July 23, 2024 Team Status: Inactive Member Role/Relationship Status Dates Jordana Nestor VSC, [employer] Primary Care Provider Activ e Start: August 07, 2024 End: August 07, 2024 Jordana Baez VSC, [employer] Referring Provider Active Start: August 07, 2024 End: August 07, 2024 Swapna Blakely NP-C Attending Provider Active Start: August 07, 2024 End: August 07, 2024 Team Status: Inactive Member Role/Relationship Status Dates Jordana Nestor VSC, [employer] Primary Care Provider Activ e Start: August 22, 2024 End: August 22, 2024 Jordana Baez VSC, [employer] Referring Provider Active Start: August 22, 2024 End: August 22, 2024 Crystal Ruiz [employer] Attending Provider Active S tart: August 22, 2024 End: August 22, 2024 Team Status: Inactive Member Role/Relationship Status Dates Jordana Nestor VSC, [employer] Primary Care Provider Activ e Start: September 11, 2024 End: September 11, 2024 Jordana Baez VSC, [employer] Referring Provider Active Start: September 11, 2024 End: September 11, 2024 Swapna Blakely NP-C Attending Provider Active Start: September 11, 2024 End: September 11, 2024 Team Status: Inactive Member Role/Relationship Status Dates Jordana Baez VSC, [employer] Primary Care Provider Activ e Start: October 11, 2024 End: October 11, 2024 Jordana Baez VSC, [employer] Referring Provider Active Start: October 11, 2024 End: October 11, 2024 Yvette James NP, [employer] Attending Provider Active Start: October 11, 2024 End: October 11, 2024 Team Status: Inactive Member Role/Relationship Status Dates Jordana Baez VSC, [employer] Primary Care Provider Activ e Start: October 15, 2024 End: October 15, 2024 Jordana Baez VSC, [employer] Referring Provider Active Start: October 15, 2024 End: October 15, 2024 Swapna Blakely , [employer] Attending Provider Active Start: October 15, 2024 End: October 15, 2024 Team Status: Inactive Member Role/Relationship Status Dates Jordana Baez VSC, [employer] Primary Care Provider Activ e Start: October 31, 2024 End: October 31, 2024 Dr. Madeleine Benoit MD Attending Provider Active Start: October 31, 2024 End: October 31, 2024 Dr. Madeleine Benoit MD Referring Provider Active Start: October 31, 2024 End: October 31, 2024 FOR RECORDS PERTAINING TO PATIENTS WHO ARE [...] BE BASED ON THE PRIMARY CLINICAL RECORDS. [facility] [employer] provides no warranty or guarantee of the accuracy or completeness of information in this document.
--- NOTE | 2024-11-12 15:48 | STRESSREP ---
Stress Test Report Date: 11/08/2024 Procedure: Pharmacologic stress nuclear imaging study Indications: Dyspnea Consent: Per the patient Procedure: The patient underwent pharmacologic (Regadenoson 0.4mg ) evaluation with a peak heart rate of 126 beats per minute (74%predicted maximal heart rate) and a peak blood pressure of 138/92 mmHg. The baseline ECG demonstrated sinus rhythm. The peak pharmacologic ECG failed to show any ischemic changes. There were no cardiac dysrhythmias pretest, during pharmacologic infusion, or recovery. There was no complaint of chest discomfort during pharmacologic infusion or recovery. The patient was injected with 15.0 millicuries of technetium 99m Cardiolite and subsequently rest SPECT Cardiolite nuclear imaging was obtained in the horizontal long, vertical long, and short axis views. The patient underwent pharmacologic (Regadenoson) evaluation. The patient was injected with 45.0 millicuries of technetium 99m Cardiolite and subsequently stress SPECT Cardiolite nuclear imaging was obtained in the horizontal long, vertical long, and short axis views. A gated Cardiolite study at peak stress was obtained. The examination was stopped secondary to completion of protocol. Rest and stress SPECT Cardiolite nuclear imaging status post realignment, normalization demonstrate mildly reduced perfusion of the inferior wall post pharmacological stress. This may show mild ischemia. There is end systolic thickening and brightening. The gated Cardiolite study demonstrates myocardial thickening and inward wall motion. The reported LVEF is 66%. Impression: 1. Pharmacologic (Regadenoson) evaluation 2. Peak pharmacologic ECG with no ischemic changes. 3. There were no cardiac dysrhythmias pretest, during pharmacologic infusion, or recovery. 5. Mild reversible perfusion defect of the inferior wall suggestive of mild ischemia. 6. The gated Cardiolite study reports an LVEF of 66%. This note was generated with Auralityation software. It may contain incorrect words, spelling, and punctuation that were not noted in checking the note before signing.
== END | disposition home or self-care (01) ==
LOC: CVS 06:43
PROVIDERS: PCP Nurse Practitioner Family; Referring Provider Nurse Practitioner Gerontology; Visit Provider Nurse Practitioner Gerontology
DX: R07.9 Chest pain, unspecified (principal)
CPT/HCPCS: 78452; 93017; A9500; A4216; J2785

== ENCOUNTER → 2024-11-14 | Outpatient (CLI) | payer MEDICAID, SELFPAY | END | disposition home or self-care (01) | LOC: RAD 10:37 → LAB 10:55 | PROVIDERS: PCP Nurse Practitioner Family; Referring Provider Nurse Practitioner Gerontology; Visit Provider Nurse Practitioner Gerontology | DX: Z00.00 Encounter for general adult medical examination without abnormal findings (principal) ==

== ENCOUNTER → 2024-11-26 | Outpatient (CLI) | payer MEDICAID, SELFPAY ==
[2024-11-26 12:47] LABS: Hematocrit 47.6 % (40-54); Hemoglobin 16.4 g/dL (13.0-16.5); Immature Granulocytes Count 0.060 X10^3/uL (0.0-0.0); Mean Corp Hgb Conc 34.5 g/dL (32-36); Mean Corpuscular Volume 91.0 fL (80-94); Mean Platelet Vol. 9.5 fl (6.2-12.0); NRBC Flagged by Analyzer 0 % (0-5); Platelet Count 127 K/mm3 (150-450); RBC Distribution Width CV 19.4 % (11.6-14.6); RBC Distribution Width SD 61.2 fl (35.1-43.9); Red Blood Count 5.23 M/mm3 (4.6-6.2); White Blood Count 7.3 K/mm3 (4.4-11.0)
[2024-11-26 13:52] LABS: AST(SGOT) 41 U/L (<=37); Alanine Aminotransfer ALT/SGPT 32 U/L (<=46); Albumin, Serum 4.1 g/dL (3.5-5.0); Alkaline Phosphatase 114 U/L (40-129); Anion Gap 15 (5-15); BUN 32 mg/dL (4-19); BUN/Creat Ratio 21.0 RATIO (10-20); Calcium,Total 9.9 mg/dL (7.6-11.0); Carbon Dioxide 19.7 mmol/L (21.0-32.0); Chloride 102 mmol/L (98-108); Cholesterol 189 mg/dL (<=200); Globulin 3.0 g/dL (2.2-4.2); Glucose 136 mg/dL (70-99); Low Density Lipoprotein Calc. 109 mg/dL; PSA,Total - Annual Screen 1.00 ng/mL (0.02-4.00); Potassium 3.7 mmol/L (3.3-5.1); Triglycerides 167 mg/dL; Very Low Density Lipoprotein 33 mg/dL (5-40); cholesterol:hdl ratio screen 4.06
== END | disposition home or self-care (01) ==
LOC: LAB 10:50
PROVIDERS: PCP Nurse Practitioner Family
DX: Z12.5 Encounter for screening for malignant neoplasm of prostate (principal); E11.22 Type 2 diabetes mellitus with diabetic chronic kidney disease; N18.32 Chronic kidney disease, stage 3b; E78.5 Hyperlipidemia, unspecified
CPT/HCPCS: 84153; 36415; 80053; 80061; 84100; 85025; G0103

== ENCOUNTER 2024-12-03 10:00 | Outpatient (CLI) | payer MEDICAID, SELFPAY ==
--- NOTE | 2024-11-14 10:50 | RAD_ITS ---
PROCEDURE: RAD/Chest PA and Lateral
[2024-11-14 11:23] LABS: Hematocrit 50.1 % (40-54); Hemoglobin 17.3 g/dL (13.0-16.5); Immature Granulocytes Count 0.040 X10^3/uL (0.0-0.0); Mean Corp Hgb Conc 34.5 g/dL (32-36); Mean Corpuscular Volume 87.1 fL (80-94); Mean Platelet Vol. 9.4 fl (6.2-12.0); NRBC Flagged by Analyzer 0 % (0-5); Platelet Count 118 K/mm3 (150-450); RBC Distribution Width CV 19.1 % (11.6-14.6); RBC Distribution Width SD 56.4 fl (35.1-43.9); Red Blood Count 5.75 M/mm3 (4.6-6.2); White Blood Count 7.1 K/mm3 (4.4-11.0)
[2024-11-14 11:53] LABS: Anion Gap 14 (5-15); BUN 27 mg/dL (4-19); BUN/Creat Ratio 18.1 RATIO (10-20); Calcium,Total 9.7 mg/dL (7.6-11.0); Carbon Dioxide 20.8 mmol/L (21.0-32.0); Chloride 102 mmol/L (98-108); Glucose 134 mg/dL (70-99); Potassium 3.7 mmol/L (3.3-5.1)
== END 2024-12-03 19:00 | disposition home or self-care (01) ==
LOC: CLSP 01-22 15:25
PROVIDERS: Nurse Practitioner Gerontology; PCP Nurse Practitioner Family; Referring Provider Internal Medicine Cardiovascular Disease; Visit Provider Internal Medicine Cardiovascular Disease
DX: J84.9 Interstitial pulmonary disease, unspecified (principal); R94.39 Abnormal result of other cardiovascular function study; R07.9 Chest pain, unspecified; I25.10 Atherosclerotic heart disease of native coronary artery without angina pectoris; I51.7 Cardiomegaly
CPT/HCPCS: 36415; 71046; 80048; 85025

== ENCOUNTER 2024-12-10 17:15 | Emergency (ER) | payer MEDICAID, SELFPAY ==
[2024-12-10 17:16] VITALS: BP 154/99; PULSE 97; RESP 18; TEMP 36.1; O2SAT 93
[2024-12-10] MEDS: Tetracaine 0.5% Ophthalmic Bottle 1 DRP OPHTHALMIC (17:32)
--- NOTE | 2024-12-10 18:28 | EX.ED.VIS.EY ---
HPI History of Present Illness Chief Complaint: Eye Problem Detail of Chief Complaint: Painful red irritated right Informant: patient Onset/Context/Timing Location: Right Eye Onset: Today Context: Sudden Onset Timing: Continuous Current Severity: Moderate Maximum Severity: Severe Worsened by: Light and blinking Relieved by: Nothing Associated Symptoms Associated Symptoms - Eyes: Foreign body sensation, Pain, Photophobia and Redness; Negative for Burning, Crusting, Drainage, Eyelid swelling, Itching or Matting Visual Changes: right: Blurred vision History of injury: Uncertain Visual correction: None Narrative Narrative: Patient is a 49-year-old male. He has history of obstructive sleep apnea, cardiomyopathy, diabetes mellitus, thrombocytopenia, nonalcoholic Stata hepatitis, peripheral arterial disease and lower extremity exam a who presents with right eye pain, redness and foreign body sensation. He does endorse photophobia. Prior similar symptoms: No Recent Illness/Hospitalization: No [facility] Medical History CLARENCE (acute kidney injury) History of chicken pox Chronic kidney disease Pneumonia History of steroid therapy History of renal disease Fatty liver Former smoker BiPAP (biphasic positive airway pressure) dependence Sleep apnea History of edema Elevated liver enzymes COVID-19 Vitamin D deficiency Thyroid disease Hyperlipidemia Hypertension Diabetes Home Medications ?Medication ?Instructions ?Recorded ?Last Taken ?Type aspirin 81 mg chewable tablet 81 mg PO DAILY@0800 heart health 08/11/16 04/15/18 History magnesium oxide 250 mg PO BID supplement 04/16/18 04/15/18 History lancets 28 gauge (Easy Touch #100 ea 02/27/20 Unknown Rx Lancets) OneTouch Verio Flex meter #1 ea 06/29/20 Unknown Rx (blood-glucose meter) BD Insulin Syringe 1 mL 25 gauge x #100 ea 05/24/21 Unknown Rx 5/8 (insulin syringe-needle U-100) insulin syringe-needle U-100 0.5 #100 ea 06/02/22 Unknown Rx mL 31 gauge x 5/16 (BD Insulin Syringe Ultra-Fine) scopolamine base 1 mg over 3 days 1 patch transdermal Q72H PRN 01/26/23 Unknown History transdermal patch nausea and vomiting insulin syringe-needle U-100 1 mL #100 ea 08/31/23 Unknown Rx 31 gauge x 5/16 (BD Insulin Syringe Ultra-Fine) pen needle, diabetic 32 gauge x #50 ea 08/31/23 Unknown Rx /32 (BD Ultra-Fine Shani Pen Needle) nebulizer tubing kits #1 ea 02/05/24 Unknown Rx neublizer machine #1 ea 02/05/24 Unknown Rx lancets 33 gauge (OneTouch Delica #100 ea 02/22/24 Unknown Rx Plus Lancet) albuterol sulfate 2.5 mg/3 mL 2.5 mg (3 mL) inhalation Q4-6H PRN 03/15/24 Unknown Rx (0.083 %) solution for nebulization shortness of breath or wheezing #180 mL dapagliflozin propanediol 10 mg 10 mg PO QDAY #90 tabs 05/07/24 Unknown Rx tablet (Farxiga) metoprolol succinate 200 mg 200 mg PO QDAY #90 tabs 05/07/24 Unknown Rx tablet,extended release 24 hr blood sugar diagnostic (Blood #100 ea 06/12/24 Unknown Rx Glucose Test strips) insulin regular hum U-500 conc 500 See Rx Instructions .Route 06/18/24 Unknown Rx unit/mL(3 mL) subcut pen (Humulin .COMPLEX #30 mL R U-500 (Conc) Insulin Kwikpen) OneTouch Verio test strips (blood #100 ea 07/11/24 Unknown Rx sugar diagnostic) tirzepatide 12.5 mg/0.5 mL 12.5 mg (0.5 mL) subcut QWEEK #2 mL 07/11/24 Unknown Rx subcutaneous pen injector (Vignesh) pen needle, diabetic 32 gauge x #100 ea 08/09/24 Unknown Rx blood-glucose meter (Blood Glucose #1 ea 08/12/24 Unknown Rx Monitoring kit) prednisone 10 mg tablet 10 mg PO DIRECTED #98 tabs 09/11/24 Unknown Rx levothyroxine 175 mcg tablet 175 mcg PO DAILY #30 tabs 10/07/24 Unknown Rx atorvastatin 20 mg tablet (Lipitor) 20 mg PO QDAY 10/11/24 Unknown History montelukast 10 mg tablet 10 mg PO QDAY #90 tabs 10/15/24 Unknown Rx (Singulair) prednisone 10 mg tablet 10 mg PO QDAY #28 tabs 10/15/24 Unknown Rx fluticasone furoate 200 1 inh inhalation Q24H #30 ea 11/05/24 Unknown Rx mcg/actuation blister powder for inhalation (Arnuity Ellipta) ursodiol 300 mg capsule 300 mg PO BID #60 caps 11/07/24 Unknown Rx Allergy/AdvReac Type Severity Reaction Status Date / Time wool AdvReac Severe Hives Verified 12/10/24 17:16 Family History Grandfather Family history of heart disease Family history of hypertension Hyperlipidemia Hypertension Diabetes Mother Family history of high cholesterol COPD (chronic obstructive pulmonary disease) Family history of hypertension in mother Grandfather Family history of high cholesterol Sleep apnea Aunt Family history of hypertension Sister Cancer Father , Diabetes Diabetes Hypertension Hyperlipidemia Surgical History History of lung biopsy History of esophagogastroduodenoscopy (EGD) History of surgery history of gallbladder sugery History of tonsillectomy and adenoidectomy Social History household members: family housing: house current occupational status: employed current occupational exposures/hazards: Yes Smoking Status: Former smoker Tobacco: How many years used: 2 alcohol intake: never substance use type: does not use caffeine: Yes Type: coffee Number of servings: 2 ROS ROS ED Eyes Eyes: Reports blurry vision right and change in vision right ENT ENT ED: Denies ear pain, rhinorrhea or sore throat Cardiovascular Cardiovascular: Denies chest pain or palpitations Neurologic Neurologic: Denies headache(s), paresthesias or weakness Hematologic/Lymphatic Hematologic/Lymphatic: Denies easy bleeding or easy bruising EXAM Physical Exam Const Vital Signs: 12/10/24 17:16 Temperature 96.9 F L Temperature Source Temporal Pulse Rate 97 Respiratory Rate 18 Blood Pressure 154/99 H Blood Pressure Mean 117 Pulse Ox 93 Oxygen Delivery Method Room Air Positive well nourished and well developed Constitutional Narrative: BMI greater than 50 General Appearance ED: well developed HEENT atraumatic; Negative for tenderness Nose: external nose normal Eyes Eyes Narrative: Pupil equal round reactive to light, extract muscles intact. He has proptosis on the right. This is due to thyroid disease. It is well-known. He has an obvious defect of his cornea. There is no foreign body noted. Eversion of the eyelid reveals no foreign body. 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 He is unable to see the chart on the right side. Patient's eye was anesthetized with tetracaine and stained with fluorescein. The entire cornea has been denuded. It is irregularly shaped as well. Neck no lymphadenopathy, supple and no JVD Resp normal respiratory effort Cardio regular rate and regular rhythm Neuro oriented x3 and CN's II-XII intact bilaterally Sensorium / Orientation: alert Skin no wounds MDM MDM MDM Narrative Medical decision making narrative: Patient's visual acuity is impaired on the right. He has obvious corneal defect. Based on sublet exam he is significant corneal defect. Spoke with Dr. David Jimenez who is on-call for ophthalmology. Patient is to call the office in the morning to be seen tomorrow morning. He requested patient have erythromycin ointment and use as liberal as he would like since this will help his discomfort. 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 steatohepatitis), Coronary artery disease Instructions: ED Corneal Abrasion Prescriptions: No Action (DME) lancets [Easy Touch Lancets] 28 gauge misc See Rx Instructions .ROUTE .MEDSUPPLY Qty: 100 6RF Rx Instructions: 3 times daily (DME) BD Insulin Syringe 1 mL 25 gauge x 5/8 syringe See Rx Instructions .ROUTE .MEDSUPPLY Qty: 100 6RF Rx Instructions: bid scopolamine base 1 mg over 3 days patch 3 day 1 patch transdermal Q72H PRN (Reason: nausea and vomiting) (DME) nebulizer tubing kits See Rx Instructions .ROUTE .MEDSUPPLY Qty: 1 0RF Rx Instructions: As directed (DME) neublizer machine See Rx Instructions .ROUTE .MEDSUPPLY Qty: 1 0RF Rx Instructions: As directed metoprolol succinate 200 mg tablet extended release 24 hr 200 mg PO QDAY Qty: 90 3RF dapagliflozin propanediol [Farxiga] 10 mg tablet 10 mg PO QDAY Qty: 90 3RF Mounjaro 12.5 mg/0.5 mL pen injector 12.5 mg subcut QWEEK Qty: 2 4RF (DME) OneTouch Verio test strips Strip See Rx Instructions .ROUTE .MEDSUPPLY Qty: 100 8RF Rx Instructions: tid prednisone 10 mg tablet 10 mg PO DIRECTED Qty: 98 0RF Rx Instructions: take 3 tablets daily for 14 days and then 2 tablets daily for 28 days montelukast [Singulair] 10 mg tablet 10 mg PO QDAY Qty: 90 3RF prednisone 10 mg tablet 10 mg PO QDAY Qty: 28 0RF Rx Instructions: complete this regimen when 20 mg daily regimen is completed atorvastatin [Lipitor] 20 mg tablet 20 mg PO QDAY aspirin 81 MG tablet,chewable 81 mg PO DAILY@0800 magnesium oxide 250 MG tablet 250 mg PO BID Humulin R U-500 (Conc) Kwikpen 500 unit/mL (3 mL) insulin pen See Rx Instructions .ROUTE .COMPLEX Qty: 30 0RF Rx Instructions: 70 am 70 pm subcutaneously twice a day; (DME) blood-glucose meter [Alset Wellen Verio Flex meter] [facility] [place] See Rx Instructions .ROUTE .MEDSUPPLY Qty: 1 0RF Rx Instructions: As directed (DME) insulin syringe-needle U-100 [BD Insulin Syringe Ultra-Fine] 0.5 mL 31 gauge x 5/16 syringe See Rx Instructions .ROUTE .MEDSUPPLY Qty: 100 6RF Rx Instructions: twice daily (DME) insulin syringe-needle U-100 [BD Insulin Syringe Ultra-Fine] 1 mL 31 gauge x 5/16 syringe See Rx Instructions .Route Qty: 100 4RF Rx Instructions: As directed (DME) pen needle, diabetic [BD Ultra-Fine Shani Pen Needle] 32 gauge x 5/32 needle See Rx Instructions .ROUTE .MEDSUPPLY Qty: 50 5RF Rx Instructions: As directed (DME) lancets [OneTouch Delica Plus Lancet] 33 gauge misc See Rx Instructions .ROUTE .MEDSUPPLY Qty: 100 8RF Rx Instructions: tid albuterol sulfate 2.5 mg /3 mL (0.083 %) solution for nebulization 2.5 mg inhalation Q4-6H PRN (Reason: shortness of breath or wheezing) Qty: 180 3RF (DME) Blood Glucose Test Strip See Rx Instructions .ROUTE .MEDSUPPLY Qty: 100 6RF Rx Instructions: test 3 times daily (DME) pen needle, diabetic 32 gauge x 5/32 needle See Rx Instructions .Route Qty: 100 5RF Rx Instructions: BID (DME) blood-glucose meter [Blood Glucose Monitoring] Kit See Rx Instructions .Route Qty: 1 0RF Rx Instructions: As directed levothyroxine 175 mcg tablet 175 mcg PO DAILY Qty: 30 5RF Arnuity Ellipta 200 mcg/actuation blister with device 1 inh inhalation Q24H Qty: 30 5RF ursodiol 300 mg capsule 300 mg PO BID Qty: 60 9RF Primary Care Provider: Jordana Baez Referrals: David Jimenez MD [Med Staff - Active Staff, Opthamology] - 1 Day for another exam Jordana Baez, [facility] [Primary Care Provider, Family Practice] Activity Restrictions/Additional Instructions: You may apply the erythromycin ointment as frequently as needed for comfort Call the office at 8 AM to be seen tomorrow morning. Print Language: Slovak Disposition Disposition: Home, Self Care
[2024-12-10] MEDS: Erythromycin Base 1 OPTH.TUBE 1 APPLIC RIGHT EYE (19:09)
[2024-12-10 19:14] VITALS: BP 150/99; PULSE 91; RESP 18; TEMP 36.1; O2SAT 93
== END 2024-12-10 19:14 | disposition home or self-care (01) ==
PROVIDERS: Emergency Provider Emergency Medicine; PCP Nurse Practitioner Family; Visit Provider Emergency Medicine
DX: S05.01XA Injury of conjunctiva and corneal abrasion without foreign body, right eye, initial encounter (principal); K74.60 Unspecified cirrhosis of liver; E11.51 Type 2 diabetes mellitus with diabetic peripheral angiopathy without gangrene; E11.22 Type 2 diabetes mellitus with diabetic chronic kidney disease; Z87.891 Personal history of nicotine dependence; I12.9 Hypertensive chronic kidney disease with stage 1 through stage 4 chronic kidney disease, or unspecified chronic kidney disease; E78.5 Hyperlipidemia, unspecified; K75.81 Nonalcoholic steatohepatitis (NASH); I25.10 Atherosclerotic heart disease of native coronary artery without angina pectoris; E03.9 Hypothyroidism, unspecified; E66.9 Obesity, unspecified; N18.9 Chronic kidney disease, unspecified; H02.89 Other specified disorders of eyelid; H05.20 Unspecified exophthalmos
CPT/HCPCS: 99283

== ENCOUNTER → 2024-12-17 | Outpatient (CLI) | payer MEDICAID, SELFPAY | END | disposition home or self-care (01) | LOC: PSN 10:45 | PROVIDERS: PCP Nurse Practitioner Family; Referring Provider Nurse Practitioner Family; Visit Provider Nurse Practitioner Family | DX: J84.10 Pulmonary fibrosis, unspecified (principal) | CPT/HCPCS: 94060; 94726; 94729 ==

== ENCOUNTER → 2024-12-24 | Outpatient (CLI) | payer MEDICAID, SELFPAY ==
[2024-12-24 14:17] LABS: Albumin, Serum 4.2 g/dL (3.5-5.0); Anion Gap 14 (5-15); BUN 24 mg/dL (4-19); BUN/Creat Ratio 13.6 RATIO (10-20); Calcium,Total 9.7 mg/dL (7.6-11.0); Carbon Dioxide 19.1 mmol/L (21.0-32.0); Chloride 100 mmol/L (98-108); Glucose 225 mg/dL (70-99); Potassium 4.3 mmol/L (3.3-5.1)
== END | disposition home or self-care (01) ==
LOC: LAB 12:28
PROVIDERS: PCP Nurse Practitioner Family; Referring Provider Internal Medicine Nephrology; Visit Provider Internal Medicine Nephrology
DX: N18.32 Chronic kidney disease, stage 3b (principal)
CPT/HCPCS: 36415; 80069

== ENCOUNTER → 2024-12-25 | Outpatient (CLI) | payer MEDICAID, SELFPAY ==
--- NOTE | 2024-12-25 06:24 | CT_ITS ---
PROCEDURE: ORB SELLA POST FOSSA EAR W/CON 12/25/2024 REASON FOR EXAM: CYST OF RIGHT ORBIT TECHNIQUE: Procedure Code: CTORBW Modality: CT Procedure: ORB SELLA POST FOSSA EAR W/CON CONTRAST: Isovue-300 VOLUME: 100 mL One or more dose reduction techniques were used (e.g., Automated exposure control, adjustment of the mA and/or kV according to patient size, use of iterative reconstruction technique). RADIATION DOSE SUMMARY: CTDlvol: 29.38 mGy DLP: 444.61 mGycm COMPARISON: None FINDINGS: Globes: Linear calcification along the posterior aspect of the right globe. Faint calcification along the posterior aspect of the left lobe. Extraocular Muscles: Unremarkable Orbits: There is a 2.1 cm by 1.1 cm soft tissue mass arising from the medial aspect of the right orbit. This is behind the right lateral oblique muscle. This abuts the right ethmoid sinus. Calcifications are seen within it. A neoplastic process should be ruled out. There is evidence of proptosis of the left eye. Lacrimal Glands: Unremarkable Bones: Unremarkable Other: Visualized paranasal sinuses and intracranial structures: CT/Orb Sella Post Fossa Ear W/CON IMPRESSION: Proptosis of the right globe. 2.1 cm 1.1 cm soft tissue mass with calcifications within it along the medial a spect of the right orbit. This is outside the muscle:. This abuts the lateral wall of the right ethmoid sinus. A neoplastic process should be ruled out. Mild calcific density seen along the posterior aspects of both globes. Reading Location: [facility]-
== END | disposition home or self-care (01) ==
LOC: CT 06:23
PROVIDERS: PCP Nurse Practitioner Family; Referring Provider Ophthalmology; Visit Provider Ophthalmology
DX: H05.811 Cyst of right orbit (principal)
CPT/HCPCS: 70481; Q9967; A4216

== ENCOUNTER → 2024-12-30 | Outpatient (CLI) | payer MEDICAID, SELFPAY | END | disposition home or self-care (01) | LOC: SL 11:23 | PROVIDERS: PCP Nurse Practitioner Family; Referring Provider Nurse Practitioner Family; Visit Provider Nurse Practitioner Family | DX: G47.33 Obstructive sleep apnea (adult) (pediatric) (principal) | CPT/HCPCS: 98960; G0463 ==

== ENCOUNTER → 2025-01-13 | Outpatient (CLI) | payer MEDICAID, SELFPAY ==
--- NOTE | 2025-01-13 08:35 | CT_ITS ---
PROCEDURE: CT/Chest without Contrast
== END | disposition home or self-care (01) ==
PROVIDERS: PCP Nurse Practitioner Family; Referring Provider Nurse Practitioner Family; Visit Provider Nurse Practitioner Family
DX: R91.1 Solitary pulmonary nodule (principal); D86.0 Sarcoidosis of lung
CPT/HCPCS: 71250

== ENCOUNTER 2025-02-20 11:23 | Outpatient (RCR) | payer MEDICAID, SELFPAY ==
[2025-02-20 12:57] LABS: Hematocrit 42.6 % (40-54); Hemoglobin 15.0 g/dL (13.0-16.5); Immature Granulocytes Count 0.030 X10^3/uL (0.0-0.0); Mean Corp Hgb Conc 35.2 g/dL (32-36); Mean Corpuscular Volume 90.8 fL (80-94); Mean Platelet Vol. 9.7 fl (6.2-12.0); NRBC Flagged by Analyzer 0 % (0-5); POSITIVE DIFFERENTIAL YES; Platelet Count 124 K/mm3 (150-450); RBC Distribution Width CV 14.8 % (11.6-14.6); RBC Distribution Width SD 48.9 fl (35.1-43.9); Red Blood Count 4.69 M/mm3 (4.6-6.2); White Blood Count 4.4 K/mm3 (4.4-11.0)
[2025-02-20 12:59] LABS: Prothrombin Time (Protime)PT. 14.3 SECONDS (11.7-14.9)
[2025-02-20 14:13] LABS: AST(SGOT) 57 U/L (<=37); Alanine Aminotransfer ALT/SGPT 23 U/L (<=46); Albumin, Serum 4.1 g/dL (3.5-5.0); Alkaline Phosphatase 188 U/L (40-129); Anion Gap 15 (5-15); BUN 36 mg/dL (4-19); BUN/Creat Ratio 19.6 RATIO (10-20); Calcium,Total 9.7 mg/dL (7.6-11.0); Carbon Dioxide 16.5 mmol/L (21.0-32.0); Chloride 98 mmol/L (98-108); Globulin 3.2 g/dL (2.2-4.2); Glucose 260 mg/dL (70-99); Potassium 4.2 mmol/L (3.3-5.1)
== END 2025-02-20 18:00 | disposition home or self-care (01) ==
LOC: LAB 11:23
PROVIDERS: PCP Nurse Practitioner Family; Referring Provider Student in an Organized Health Care Education/Training Program; Visit Provider Student in an Organized Health Care Education/Training Program
DX: K75.81 Nonalcoholic steatohepatitis (NASH) (principal)
CPT/HCPCS: 36415; 80053; 82105; 85025; 85610

== ENCOUNTER → 2025-03-04 | Outpatient (CLI) | payer MEDICAID, SELFPAY ==
--- NOTE | 2025-03-04 07:50 | US_ITS ---
PROCEDURE: ABD LIMITED W/ ELASTOGRAPHY REASON FOR EXAM: PINEDA CIRRHOSIS COMPARISON: None. TECHNIQUE: Procedure Code: [id number] Modality: US Procedure: ABD LIMITED W/ ELASTOGRAPHY Right upper quadrant abdominal ultrasound. Ted ElastQ Imaging shear wave elastography for non-invasive assessment of liver tissue stiffness. Ted EPIQ Elite. FINDINGS: LIVER: Size: Unremarkable Length: 17.0 cm Echotexture: Diffusely echogenic suggesting fatty infiltration Contour: Normal Lesions: None identified Elastography: EQI Med: 4.3 kPa EQI Med Maicol: 1.2 m/s IQR/Med: 30.2 %*-borderline. GALLBLADDER: Cholecystectomy COMMON BILE DUCT: Normal 4 mm. PANCREAS: Normal Imaged portions of the right kidney are unremarkable. Kidney measures 10.8 x 5.3 x 5.7 cm no right upper quadrant ascites. US/ABD Limited w/ Elastography IMPRESSION: Diffuse hepatocellular disease. Consider fatty infiltration among other causes . No ascites. Metavir score: F0 Reference Values: SRU <1.37 m/s (5.7kPa): No to mild fibrosis 1.37 m/s - 2.2 m/s: Moderate to severe fibrosis >2.2 m/s (15kPa): Significant fibrosis / cirrhosis METAVIR Score F2 or higher: 1.34 m/s (5.7kPa) F3 or higher: 1.55 m/s (7.3kPa) F4: 1.80 m/s (10kPa) * If the IQR/Med is >30%, the variance in the measurements is a large and the a ccuracy of the measurement may be in question. Causes include technical factors, severe inflammation, heart failure, significa nt steatosis and ascites. Reading Location: [id number]
== END | disposition home or self-care (01) ==
LOC: US 07:50
PROVIDERS: PCP Nurse Practitioner Family; Referring Provider Student in an Organized Health Care Education/Training Program; Visit Provider Student in an Organized Health Care Education/Training Program
DX: K75.81 Nonalcoholic steatohepatitis (NASH) (principal)
CPT/HCPCS: 76705; 76981